=== PATIENT | male | born 1955 | race Caucasian/White ===

== ENCOUNTER 2016-08-15 10:54 | Outpatient (RCR) | payer MEDICARE ==
[~2016-08-15 10:54] MED LIST: ALBU0.632 IH; ALBU0.8322 IH; ALBU17AE3; ALBU2.5V4 INH; ALBUTEROL INHALER; ALBUTEROL NEB; ALPR.25T PO; ALPR1T PO; ALPR1TAB2 PO; ALPR1TAB7 PO; AMLO5TAB2 PO; ARIP5TAB20 PO; ASP325T; ASP325T PO; ASP81CT; ASP81CT PO; ATEN50TA PO; ATOR10TA PO; ATOR10TA66 PO; BACL10TA PO; BUDE10.2 INH; CALC-654 PO; CELE-63 PO; CETI10CA9 PO; CETI10TA17 PO; CHOL20002 PO; CIPR500T78 PO; CITA20TA4 PO; CLCX200C PO; CLON1TAB27 PO; CPH250CIP; CYAN500T2 PO; DOCU-143 PO; DOXE10CA PO; DOXE10CA29 PO; DOXE25CA46 PO; DULO30CA48 PO; DULO60CA58 PO; DULO60CA6 PO; ESCI20TA2; ESCI20TA2 PO; FLUT16SP22; FLUT16SP22 NS; FLUT1DIS26 IH; FRSM10B60; FRSM40T; FRSM40T PO; FURO40TA4 PO; FURO80TA3 PO; GABA300T PO; HYDR-229; HYDR-34; HYDR-34 PO; HYDR-3720 PO; HYDR-3729 PO; HYDR1TAB86 PO; HYDROCODONE; LEVO750T39 PO; LEVO750T9 PO; LISI-552 PO; LISI20TA; LISI20TA PO; MELO-195 PO; METO50TA7; METO50TA7 PO; METR500T PO; MNTL10T PO; MONT10TA24 PO; MTP50T PO; MULT-1029 PO; MULT1TAB63; NCT21TD TD; OXYC-143 PO; OXYC-272 PO; OXYC-465 PO; OXYC1TAB17 PO; OXYM30SP17 NS; PHEN37.555 PO; POTA10CA43 PO; POTA20PA3 PO; PRAV40TA PO; PRAV80TA2 PO; PRCD5U PO; PRD10T PO; PRD20T; PRD20T PO; PREG100C PO; PREG100C22 PO; PREG150C PO; PREG200C PO; PREG75CA PO; PROP10TA8 PO; PROP20TA23 PO; RAME8T PO; RANI150T11 PO; RISP1TAB19 PO; RISP1TAB2 PO; RSP.25T PO; RSP1T PO; SLMFT1E; SLMFT1E INH; SMV20T; TIOT18CA; TIOT18CA IH; TIOT18CA2 INH; TMZP15C PO; TORS20TA2 PO; TORS20TA3 PO; TRAZ-144 PO; TRAZ100T92 PO; TRAZ50TA67 PO; TRH2T PO; TRZ100T PO; UMEC62.5 INH; VITA80006 PO; ZLP10T PO; ZOLP10TA PO; [UNRECOGNIZED DRUG - OTHER]
== END 2016-11-13 | disposition home or self-care (01) ==
LOC: DSME 10:54
PROVIDERS: ATTEND Family Medicine
DX: E11.9 Type 2 diabetes mellitus without complications (principal)

== ENCOUNTER 2018-01-30 00:54 | Inpatient (IN) | payer MEDICARE ==
[~2018-01-30] VITALS: Ht 182.9 cm; Wt 178.3 kg
[2018-01-30] VITALS (38 sets, daily range): BP systolic 88–176; BP diastolic 37–122
[~2018-01-30 00:54] MED LIST changes: +ALBU2.5V4 IH; +CALC-852 PO; +CYAN1TAB64 SL; +HYDR-3781 PO; +LISI10TA2 PO; +METF500T8 PO; +OXYC-471 PO; -OXYM30SP17 NS; +OXYM30SP18 NS
[2018-01-30] MEDS ORDERED: methylPREDNISolone 125 MG (Solu-MEDROL) VIAL IV STA (01:07)
[2018-01-30] MEDS ORDERED: DEXAMETHASONE 4 MG/ML SDV (DECADRON) IH ONE (01:15)
[2018-01-30] MEDS ORDERED: RT-ALBUTEROL/IPRATROPIUM 3 ML (DUONEB) VIAL INH ONE (01:15)
[2018-01-30 01:22] LABS: BASOPHILS % (AUTO) 0 % (0-10); EOSINOPHILS # (AUTO) 0.1 10^3/uL (0.0-0.3); EOSINOPHILS % (AUTO) 1 % (0-10); HEMATOCRIT 37 % (40-54); HEMOGLOBIN 11.1 G/DL (13.3-17.7); LYMPHOCYTES # (AUTO) 1.2 X 10^3 (1.0-4.0); LYMPHOCYTES % (AUTO) 6 % (12-44); MEAN CORPUSCULAR HEMOGLOBIN 29 PG (25-34); MEAN CORPUSCULAR HGB CONC 30 G/DL (32-36); MEAN CORPUSCULAR VOLUME 96 FL (80-99); MEAN PLATELET VOLUME 9.5 FL (7.4-10.4); MONOCYTES # (AUTO) 1.5 X 10^3 (0.0-1.0); MONOCYTES % (AUTO) 8 % (0-12); NEUTROPHILS # (AUTO) 16.3 X 10^3 (1.8-7.8); NEUTROPHILS % (AUTO) 85 % (42-75); PLATELET COUNT 190 10^3/uL (130-400); RED BLOOD COUNT 3.83 10^6/uL (4.35-5.85); RED CELL DISTRIBUTION WIDTH 17.3 % (10.0-14.5)
[2018-01-30 01:22] LABS: ABG BASE EXCESS 10.4 MMOL/L (-2.5-2.5); ABG OXYGEN SATURATION 99 % (94-100); ABG PO2 131 MMHG (79-93); ABG TCO2 41.1 MMOL/L (21.0-31.0)
[2018-01-30 01:24] LABS: ALLENS TEST YES-POS; INSPIRED O2 BIPAP; PATIENT TEMP 99.3; VENTILATOR NO
[2018-01-30 01:25] LABS: ABG PCO2 99 MMHG (35-45); ABG PH 7.21 (7.37-7.43)
[2018-01-30 01:26] LABS: PROTHROMBIN TIME PATIENT 12.7 SEC (12.2-14.7)
[2018-01-30 01:37] LABS: ANISOCYTOSIS SLIGHT; BAND NEUTROPHILS 2 %; BASOPHILS % (MANUAL) 0 %; EOSINOPHILS % (MANUAL) 0 %; HYPOCHROMASIA SLIGHT; LYMPHOCYTES % (MANUAL) 7 %; MONOCYTES % (MANUAL) 5 %; NEUTROPHILS % (MANUAL) 86 %; POLYCHROMASIA SLIGHT
[2018-01-30] MEDS ORDERED: PIPERACILLIN SODIUM/TAZOBACTAM 4.5 GM in D5W 100 ML IVPB 100 ML IV ONE (01:45)
[2018-01-30] MEDS ORDERED: FUROSEMIDE 40 MG/4 ML INJ (LASIX) IVP ONE ×2 (01:45→07:45)
[2018-01-30 01:48] LABS: ALANINE AMINOTRANSFERASE 19 U/L (0-55); ALKALINE PHOSPHATASE 132 U/L (40-136); BILIRUBIN,TOTAL 0.5 MG/DL (0.1-1.0); BUN/CREATININE RATIO 17; CALCIUM 9.7 MG/DL (8.5-10.1); CARBON DIOXIDE 31 MMOL/L (21-32); CHLORIDE 96 MMOL/L (98-107); CREATINE KINASE 28 U/L (30-200); CREATININE SERUM 1.64 MG/DL (0.60-1.30); GFR ESTIMATED 43; GLUCOSE 176 MG/DL (70-105); MAGNESIUM 2.1 MG/DL (1.8-2.4); POTASSIUM 5.6 MMOL/L (3.6-5.0); SODIUM 140 MMOL/L (135-145); TOTAL PROTEIN 8.3 GM/DL (6.4-8.2)
[2018-01-30 01:54] LABS: CREATINE KINASE MB 0.9 NG/ML (<6.6)
[2018-01-30 02:07] LABS: BILIRUBIN,URINE NEGATIVE (NEGATIVE); GLUCOSE, URINE (UA) NEGATIVE (NEGATIVE); KETONES,URINE NEGATIVE (NEGATIVE); LEUKOCYTE ESTERASE ,URINE NEGATIVE (NEGATIVE); NITRITE,URINE NEGATIVE (NEGATIVE); PH,URINE 5 (5-9); PROTEIN,URINE 3+ (NEGATIVE); UROBILINOGEN,URINE NORMAL (NORMAL)
[2018-01-30 02:17] LABS: CLARITY,URINE SLIGHTLY CLOUDY; COLOR,URINE YELLOW
[2018-01-30 02:21] LABS: BACTERIA,URINE FEW /HPF; SQUAMOUS EPITHELIAL CELL,UR RARE /HPF
[2018-01-30 02:22] LABS: AMPHETAMINE SCREEN, URINE NEGATIVE (NEGATIVE); BARBITURATE SCREEN URINE NEGATIVE (NEGATIVE); BENZODIAZEPINES SCREEN URINE NEGATIVE (NEGATIVE); CANNABINOID SCREEN, URINE POSITIVE (NEGATIVE); COCAINE SCREEN URINE NEGATIVE (NEGATIVE); METHADONE STAT NEGATIVE (NEGATIVE); METHAMPHETAMINE SCREEN URINE S NEGATIVE (NEGATIVE); OPIATE SCREEN URINE NEGATIVE (NEGATIVE); OXYCODONE STAT POSITIVE (NEGATIVE); PROPOXYPHENE STAT NEGATIVE (NEGATIVE); TRICYCLIC ANTIDEPRESSANTS SCRE NEGATIVE (NEGATIVE)
[2018-01-30 02:47] LABS: ABG BASE EXCESS 11.3 MMOL/L (-2.5-2.5); ABG OXYGEN SATURATION 96 % (94-100); ABG PO2 95 MMHG (79-93); ABG TCO2 41.9 MMOL/L (21.0-31.0)
[2018-01-30 02:48] LABS: INSPIRED O2 BIPAP; PATIENT TEMP 99.3; VENTILATOR NO
[2018-01-30 02:49] LABS: ABG PCO2 99 MMHG (35-45); ABG PH 7.22 (7.37-7.43)
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
[2018-01-30] MEDS ORDERED: 1/2 NS IV SOLUTION 1,000 ML IV ONE (04:22)
[2018-01-30] MEDS: 1/2 NS IV SOLUTION 1,000 ML IV SCH ×2 (04:30→16:49)
[2018-01-30] MEDS ORDERED: RT-ALBUTEROL/IPRATROPIUM 3 ML (DUONEB) VIAL INH PRN (04:45)
[2018-01-30] MEDS ORDERED: AZITHROMYCIN 500 MG/NS 250 ML IVPB IV SCH ×2 (06:00)
[2018-01-30] MEDS ORDERED: ACETAMINOPHEN 500 MG TAB (TYLENOL) PO PRN (06:00)
[2018-01-30] MEDS: RT-ALBUTEROL/IPRATROPIUM 3 ML (DUONEB) VIAL INH SCH ×5 (06:13→22:30)
[2018-01-30] MEDS: POTASSIUM CL 10MEQ/50ML IVPB 50 ML IV SCH (06:17)
[2018-01-30] MEDS: KCL 20 MEQ TAB (K-DUR) PO SCH (06:18)
[2018-01-30] MEDS: MAGNESIUM 1 GM/100 ML IVPB 100 ML IV SCH (06:18)
[2018-01-30] MEDS: methylPREDNISolone 125 MG (Solu-MEDROL) VIAL IV SCH ×3 (06:24→21:23)
[2018-01-30] MEDS ORDERED: PHARMACY TO DOSE SQ SCH (07:30)
--- NOTE | 2018-01-30 07:36 | History & Physicial ---
History of Present Illness History of Present Illness Reason for visit/HPI Patient is awake this morning. Patient able to give history. Patient supposed to wear CPAP in the morning and BiPAP at night. Patient has to be on oxygen 4 L. found patient unresponsive. Called EMS. Pulse ox in the 60s 1 find Department got there. Patient brought out to the emergency room and was nonresponsive. Patient had hypoxia and hypercapnia. Patient morbid obesity. Patient has history of COPD with acute exacerbation. Patient admitted to ICU Date of Admission January 30, 2018 at 02:05 Time Seen by Provider: 07:30 I consulted on this patient on 01/30/18 07:30 Attending Physician Monika Marquez DO Admitting Physician Ricky Cleveland DO Consult Allergies and Home Medications Allergies Coded Allergies: cephalexin (Verified Allergy, Unknown, 04/10/16) Home Medications Albuterol Sulfate 2.5 Mg/3 Ml Vial.neb, 2.5 MG IH TID PRN for SHORTNESS OF BREATH, (Reported) Amlodipine Besylate 5 Mg Tablet, 5 MG PO DAILY, (Reported) Atorvastatin Calcium 10 Mg Tablet, 10 MG PO DAILY, (Reported) Budesonide/Formoterol Fumarate 10.2 Gm Hfa.aer.ad, 2 PUFF INH BID, (Reported) Calcium Citrate/Vitamin D3 1 Each Tablet, 1 TAB PO DAILY, (Reported) Celecoxib 200 Mg Capsule, 200 MG PO BID, (Reported) Cyanocobalamin/Cobamamide 1 Each Tab.subl, 5,000 MCG SL DAILY, (Reported) Docusate Sodium 100 Mg Capsule, 100 MG PO DAILY PRN for CONSTIPATION, (Reported) Duloxetine HCl 60 Mg Capsule.dr, 60 MG PO BID, (Reported) Fluticasone Propionate 16 Gm [place].susp, 1 SPRAY NS BID, (Reported) Furosemide 40 Mg Tablet, 40 MG PO BID, (Reported) Hydroxyzine Pamoate 25 Mg Capsule, 25 MG PO BID, (Reported) Lisinopril 10 Mg Tablet, 10 MG PO DAILY, (Reported) Metformin HCl 500 Mg Tab.er.24h, 500 MG PO BID, (Reported) Oxycodone HCl/Acetaminophen 1 Each Tablet, 1 TAB PO TID PRN for PAIN-MODERATE, ( Reported) Pregabalin 150 Mg Capsule, 150 MG PO BID, (Reported) Ranitidine HCl 150 Mg Tablet, 150 MG PO BID, (Reported) Trazodone HCl 100 Mg Tablet, 100 MG PO HS, (Reported) Umeclidinium [place] 62.5 Mcg Blst.w.dev, 1 PUFF INH DAILY, (Reported) Vitamin A 8,000 Unit Capsule, 8,000 UNIT PO DAILY, (Reported) Patient Home Medication List Home Medication List Reviewed: No Past [place]-Xfpmkn-Krgilx Hx Patient Social History Marrital Status: Employed/Student: unemployed Alcohol Use: Denies Use Recreational Drug Use: Yes ("NONE FOR 30 YEARS" PER OLD CHART, BUT PT TESTED + FOR THC 01/30/18) Smoking Status: Former Smoker Former Smoker, Quit: Sep 18, 2015 Type Used: Cigarettes Physical Abuse Screen: No Sexual Abuse: No Recent Foreign Travel: No Contact w/other who traveled: No Recent Hopitalizations: No (11/2017 FOR RESPIRATORY FAILURE) Recent Infectious Disease Expo: No Immunizations Up To Date Tetanus Booster (TDap): Unknown Date of Pneumonia Vaccine: Sep 04, 2012 Date of Influenza Vaccine: Oct 16, 2017 Seasonal Allergies Seasonal Allergies: Yes Surgeries Yes (FATTY TUMOR REMOVED FROM TOP OF HEAD. CARDIAC CATH X 2--NO INTERVENTION) Cardiac, Vasectomy Respiratory Yes (PULMONARY HTN; CHRONIC RESPIRATORY FAILURE--WEARS HOME O2 AT 4L/NC OR BIPAP /CPAP DURING THE DAY AND BIPAP AT NIGHT WELL; OBESITY-HYPOVENTILATION SYNDROME) COPD, Emphysema, Sleep Apnea Currently Using CPAP: No Currently Using BIPAP: Yes Cardiovascular Yes (CHF, CARDIAC CATH X 2--NO INTERVENTION, pulmonary hypertension) Chronic Edema/Swelling, Coronary Artery Disease, High Cholesterol, Hypertension , Valvular Heart Disease Neurological Yes Reproductive System Hx Reproductive Disorders: No Sexually Transmitted Disease: No HIV/AIDS: No Genitourinary Yes (RENAL INSUFFICIENCY) Gastrointestinal Yes Colitis Musculoskeletal Yes ("BULGING DISCS" ; CHRONIC "JERKING" OF MUSCLES) Degenerate Disk Disease, Osteoporosis, Arthritis, Back Injury, Chronic Back Pain , Fractures, Spasms Endocrine History of Endocrine Disorders: Yes (MORBID OBESITY) Endocrine Disorders: Diabetes, Non-Insulin dep HEENT History of HEENT Disorders: Yes (NEAR SIGHTED) Loss of Vision: Bilateral Hearing Impairment: Denies Cancer No Psychosocial History of Psychiatric Problem: Yes Behavioral Health Disorders: Anxiety, Depression Integumentary History of Skin or Integumenta: No Blood Transfusions History of Blood Disorders: No Adverse Reaction to a Blood Tr: No Family Medical History Significant Family History: Heart Disease, Cancer, Hypertension Family Hx: Arthritis 19 MOTHER Cardiovascular disease 19 MOTHER FH: lung cancer 19 FATHER Hypertension 19 MOTHER No Family History of: AIDS Abdominal aortic aneurysm [place]'s disease Alcoholism Alzheimer's disease Aphasia Asthma Cancer of mouth Cataracts Colon cancer Completed stroke Congenital disease Congenital heart disease Coronary thrombosis Cystic fibrosis Deafness or hearing loss Dementia Diabetes mellitus Drug abuse Dysphasia Fibrocystic disease of breast Gastroenteritis Glaucoma Headache disorder Hypercholesterolemia Infertility Kidney disease Myocardial infarction Neoplasm Not obtainable due to adoption Osteoporosis Parkinson's disease Prostate cancer Psychosocial problem Respiratory disorder Seizure disorder Severe allergy Thyroid disease Tuberculosis Visual disorder Constitutional: weakness EENTM: no symptoms reported Respiratory: short of breath, other (COPD) Cardiovascular: no symptoms reported Gastrointestinal: no symptoms reported Genitourinary: no symptoms reported Physical Exam Vital Signs Vital Signs - First Documented 01/30/18 03:10 FiO2 60 Capillary Refill : Less Than 3 Seconds General Appearance: No Apparent Distress, WD/WN, Obese Eyes: Bilateral Eye Normal Inspection HEENT: Normal ENT Inspection Neck: Full Range of Motion, Normal Inspection Respiratory: Decreased Breath Sounds Cardiovascular: Regular Rate, Rhythm, No Murmur Gastrointestinal: Non Tender, Soft Assessment/Plan Assessment and Plan Nonresponsive. Acute and chronic respiratory failure. Pneumonia. Short of the air. Pulse ox 69. Hypercapnia. Hypoxemia. Morbid obesity. Patient on 4 L of oxygen at home Admission Diagnosis Admission Status: Inpatient Order (span 2 midnights) Reason for Inpatient Admission: Nonresponsive. Short of air. Hypercapnia. Hypoxemia. COPD with acute exacerbation. Morbid obesity. Clinical Quality Measures DVT/VTE Risk/Contraindication: Risk Factor Score Per Nursin RFS Level Per Nursing on Admit: 4+=Very High RICKY CLEVELAND DO January 30, 2018 07:36
[2018-01-30 07:59] LABS: BASOPHILS % (AUTO) 0 % (0-10); EOSINOPHILS % (AUTO) 0 % (0-10); HEMATOCRIT 35 % (40-54); HEMOGLOBIN 10.7 G/DL (13.3-17.7); LYMPHOCYTES # (AUTO) 0.8 X 10^3 (1.0-4.0); LYMPHOCYTES % (AUTO) 4 % (12-44); MEAN CORPUSCULAR HEMOGLOBIN 29 PG (25-34); MEAN CORPUSCULAR HGB CONC 30 G/DL (32-36); MEAN CORPUSCULAR VOLUME 96 FL (80-99); MEAN PLATELET VOLUME 9.7 FL (7.4-10.4); MONOCYTES # (AUTO) 0.3 X 10^3 (0.0-1.0); MONOCYTES % (AUTO) 1 % (0-12); NEUTROPHILS # (AUTO) 18.4 X 10^3 (1.8-7.8); NEUTROPHILS % (AUTO) 95 % (42-75); PLATELET COUNT 204 10^3/uL (130-400); RED BLOOD COUNT 3.68 10^6/uL (4.35-5.85); RED CELL DISTRIBUTION WIDTH 17.3 % (10.0-14.5); WHITE BLOOD COUNT 19.4 10^3/uL (4.3-11.0)
--- NOTE | 2018-01-30 08:14 | Diagnostic Imaging Report ---
Indication: Respiratory distress. Comparison: 10/30/2017 Findings: Upright portable views of the chest were obtained. Heart size is enlarged but unchanged. Central venous congestion is similar to the prior study. No pneumothorax or pleural fluid suspected. Patchy alveolar opacities are again demonstrated, improved from the prior study. Impression: Cardiomegaly with central venous congestion similar to the prior exam. Minimal persistent patchy alveolar opacities moderately improved from the prior study. Dictated by: Dictated on workstation # [id number]
[2018-01-30 08:22] LABS: ALBUMIN 3.8 GM/DL (3.2-4.5); BILIRUBIN,TOTAL 0.5 MG/DL (0.1-1.0); CALCIUM 9.5 MG/DL (8.5-10.1); CREATININE SERUM 1.7 MG/DL (0.60-1.30); MAGNESIUM 2.1 MG/DL (1.8-2.4); PHOSPHORUS 3.7 MG/DL (2.3-4.7); POTASSIUM 5.6 MMOL/L (3.6-5.0); TOTAL PROTEIN 7.9 GM/DL (6.4-8.2)
[2018-01-30] MEDS: PIPERACILLIN/TAZO 4.5 GM/D5W 100 ML IVPB IV SCH ×4 (08:27→16:50)
[2018-01-30] MEDS: ENOXAPARIN 60 MG/0.6 ML (LOVENOX) SYR SC SCH ×2 (08:27→21:23)
[2018-01-30 08:56] LABS: ABG BASE EXCESS 12.2 MMOL/L (-2.5-2.5); ABG OXYGEN SATURATION 92 % (94-100); ABG PO2 68 MMHG (79-93); ABG TCO2 41.8 MMOL/L (21.0-31.0)
[2018-01-30 08:59] LABS: ABG PCO2 85 MMHG (35-45); ABG PH 7.28 (7.37-7.43)
[2018-01-30 09:00] LABS: ALLENS TEST Negative; INSPIRED O2 80%; PATIENT TEMP 98.3; VENTILATOR NO
[2018-01-30] MEDS ORDERED: MULT-1067 PO (10:17)
[2018-01-30] MEDS: oxyCODONE/APAP 5/325MG (PERCOCET 5) TABLET PO PRN ×3 (11:41→21:32)
[2018-01-30 14:25] LABS: ABG BASE EXCESS 12.5 MMOL/L (-2.5-2.5); ABG OXYGEN SATURATION 96 % (94-100); ABG PCO2 69 MMHG (35-45); ABG PH 7.36 (7.37-7.43); ABG PO2 72 MMHG (79-93); ABG TCO2 40.8 MMOL/L (21.0-31.0)
[2018-01-30 14:26] LABS: ALLENS TEST POSITIVE; INSPIRED O2 40% BIPAP; PATIENT TEMP 96.7; VENTILATOR NO
[2018-01-30] MEDS: metFORMIN XR 500 MG (GLUCOPHAGE XR) TAB PO SCH (16:49)
[2018-01-30] MEDS: FUROSEMIDE 40 MG (LASIX) TAB PO SCH (16:49)
[2018-01-30] MEDS ORDERED: NON-FORMULARY MEDICATION 1 EA EA (Duloxetine HCl 60 MG) PO SCH (21:00)
[2018-01-30] MEDS ORDERED: NON-FORMULARY MEDICATION 1 EA EA (Ranitidine HCl 150 MG) PO SCH (21:00)
[2018-01-30] MEDS ORDERED: NON-FORMULARY MEDICATION 1 EA EA (Celecoxib 200 MG) PO SCH (21:00)
[2018-01-30] MEDS ORDERED: NON-FORMULARY MEDICATION 1 EA EA (Pregabalin (Lyrica) 150 MG) PO SCH (21:00)
[2018-01-30] MEDS: CELECOXIB 100 MG (CeleBREX) CAP PO SCH (21:23)
[2018-01-30] MEDS: DULoxetine 30 MG (CYMBALTA) CAP PO SCH (21:24)
[2018-01-30] MEDS: PREGABALIN 75 MG (LYRICA) CAP PO SCH (21:24)
[2018-01-30] MEDS: FAMOTIDINE 20 MG (PEPCID) TABLET PO SCH (21:24)
[2018-01-30] MEDS: traZODone 100 MG (DESYREL) TAB PO SCH (21:24)
[2018-01-31] VITALS (14 sets, daily range): BP systolic 105–151; BP diastolic 57–85
[2018-01-31] MEDS: PIPERACILLIN/TAZO 4.5 GM/D5W 100 ML IVPB IV SCH ×6 (01:05→16:03)
[2018-01-31] MEDS: RT-ALBUTEROL/IPRATROPIUM 3 ML (DUONEB) VIAL INH SCH ×6 (01:57→22:17)
[2018-01-31] MEDS: 1/2 NS IV SOLUTION 1,000 ML IV SCH (02:29)
[2018-01-31 04:41] LABS: BASOPHILS % (AUTO) 0 % (0-10); EOSINOPHILS % (AUTO) 0 % (0-10); HEMATOCRIT 36 % (40-54); LYMPHOCYTES # (AUTO) 0.8 X 10^3 (1.0-4.0); LYMPHOCYTES % (AUTO) 5 % (12-44); MEAN CORPUSCULAR HEMOGLOBIN 29 PG (25-34); MEAN CORPUSCULAR HGB CONC 31 G/DL (32-36); MEAN CORPUSCULAR VOLUME 94 FL (80-99); MEAN PLATELET VOLUME 9.6 FL (7.4-10.4); MONOCYTES # (AUTO) 0.5 X 10^3 (0.0-1.0); MONOCYTES % (AUTO) 3 % (0-12); NEUTROPHILS % (AUTO) 92 % (42-75); PLATELET COUNT 199 10^3/uL (130-400); RED BLOOD COUNT 3.81 10^6/uL (4.35-5.85); RED CELL DISTRIBUTION WIDTH 16.9 % (10.0-14.5); WHITE BLOOD COUNT 16.3 10^3/uL (4.3-11.0)
[2018-01-31 05:07] LABS: ALBUMIN 3.6 GM/DL (3.2-4.5); BILIRUBIN,TOTAL 0.3 MG/DL (0.1-1.0); CALCIUM 9.8 MG/DL (8.5-10.1); CREATININE SERUM 1.55 MG/DL (0.60-1.30); MAGNESIUM 2.1 MG/DL (1.8-2.4); PHOSPHORUS 2.4 MG/DL (2.3-4.7); POTASSIUM 4.9 MMOL/L (3.6-5.0); TOTAL PROTEIN 7.6 GM/DL (6.4-8.2)
[2018-01-31] MEDS: POTASSIUM CL 10MEQ/50ML IVPB 50 ML IV SCH (05:07)
[2018-01-31] MEDS: KCL 20 MEQ TAB (K-DUR) PO SCH (05:07)
[2018-01-31] MEDS: MAGNESIUM 1 GM/100 ML IVPB 100 ML IV SCH (05:07)
--- NOTE | 2018-01-31 05:14 | Pulmonary Consultation ---
History of Present Illness History of Present Illness Date of Consultation 01/31/18 05:09 Time Seen by Provider: 05:09 Date of Admission History of Present Illness 62yo with hx of severe oxygen dependent COPD and morbid [facility] secondary to acute respiratory failure presented to ED secondary acute on chronic respiratory failure after being found unresponsive by without oxygen on. Upon EMS arrival Sp02 was 69% and increased to 92% with oxygen. UDS positive for narcotics and marijuana. I am consulted for pulmonary management. Allergies and Home Medications Allergies Coded Allergies: cephalexin (Verified Allergy, Unknown, 04/10/16) Home Medications Albuterol Sulfate 2.5 Mg/3 Ml Vial.neb, 2.5 MG IH TID PRN for SHORTNESS OF BREATH, (Reported) Amlodipine Besylate 5 Mg Tablet, 5 MG PO DAILY, (Reported) Atorvastatin Calcium 10 Mg Tablet, 10 MG PO DAILY, (Reported) Budesonide/Formoterol Fumarate 10.2 Gm Hfa.aer.ad, 2 PUFF INH BID, (Reported) Celecoxib 200 Mg Capsule, 200 MG PO BID, (Reported) Cyanocobalamin/Cobamamide 1 Each Tab.subl, 5,000 MCG SL DAILY, (Reported) Duloxetine HCl 60 Mg Capsule.dr, 60 MG PO BID, (Reported) Furosemide 40 Mg Tablet, 40 MG PO BID, (Reported) Lisinopril 10 Mg Tablet, 10 MG PO DAILY, (Reported) Metformin HCl 500 Mg Tab.er.24h, 500 MG PO BID, (Reported) Multivitamin/Iron/Folic Acid 1 Each Tablet, 1 EACH PO DAILY, (Reported) Oxycodone HCl/Acetaminophen 1 Each Tablet, 1 TAB PO TID PRN for PAIN-MODERATE, ( Reported) Pregabalin 150 Mg Capsule, 150 MG PO BID, (Reported) Ranitidine HCl 150 Mg Tablet, 150 MG PO BID, (Reported) Trazodone HCl 100 Mg Tablet, 100 MG PO HS, (Reported) Past Hzaexml-Iwmwwj-Mfdawc Hx Patient Social History Alcohol Use: Denies Use Recreational Drug Use: Yes ("NONE FOR 30 YEARS" PER OLD CHART, BUT PT TESTED + FOR THC 01/30/18) Smoking Status: Former Smoker Type Used: Cigarettes Former Smoker, Quit: Sep 18, 2015 Recent Foreign Travel: No Contact w/Someone Who Travel: No Recent Infectious Disease Expo: No Recent Hopitalizations: No (11/2017 FOR RESPIRATORY FAILURE) Immunizations Up To Date Tetanus Booster (TDap): Unknown Date of Pneumonia Vaccine: Sep 04, 2012 Date of Influenza Vaccine: Oct 16, 2017 Seasonal Allergies Seasonal Allergies: Yes Past Medical History Surgeries: Yes (FATTY TUMOR REMOVED FROM TOP OF HEAD. CARDIAC CATH X 2--NO INTERVENTION) Cardiac, Vasectomy Respiratory: Yes (PULMONARY HTN; CHRONIC RESPIRATORY FAILURE--WEARS HOME O2 AT 4L/NC OR BIPAP/CPAP DURING THE DAY AND BIPAP AT NIGHT WELL; OBESITY- HYPOVENTILATION SYNDROME) Pneumonia, Chronic Bronchitis, Sleep Apnea, COPD, Emphysema Currently Using CPAP: No Currently Using BIPAP: Yes Cardiac: Yes (CHF, CARDIAC CATH X 2--NO INTERVENTION, pulmonary hypertension) Chronic Edema/Swelling, Coronary Artery Disease, High Cholesterol, Hypertension , Valvular Heart Disease Neurological: Yes Reproductive Disorders: No Sexually Transmitted Disease: No HIV/AIDS: No Genitourinary: Yes (RENAL INSUFFICIENCY) Gastrointestinal: Yes Colitis Musculoskeletal: Yes ("BULGING DISCS" ; CHRONIC "JERKING" OF MUSCLES) Degenerate Disk Disease, Osteoporosis, Arthritis, Back Injury, Chronic Back Pain , Fractures, Spasms Endocrine: Yes (MORBID OBESITY) Diabetes, Non-Insulin dep HEENT: Yes (NEAR SIGHTED) Loss of Vision: Bilateral Hearing Impairment: Denies Cancer: No Psychosocial: Yes Anxiety, Depression Integumentary: No Blood Disorders: No Adverse Reaction/Blood Tranf: No Family Medical History Arthritis 19 MOTHER Cardiovascular disease 19 MOTHER FH: lung cancer 19 FATHER Hypertension 19 MOTHER No Family History of: AIDS Abdominal aortic aneurysm [place]'s disease Alcoholism Alzheimer's disease Aphasia Asthma Cancer of mouth Cataracts Colon cancer Completed stroke Congenital disease Congenital heart disease Coronary thrombosis Cystic fibrosis Deafness or hearing loss Dementia Diabetes mellitus Drug abuse Dysphasia Fibrocystic disease of breast Gastroenteritis Glaucoma Headache disorder Hypercholesterolemia Infertility Kidney disease Myocardial infarction Neoplasm Not obtainable due to adoption Osteoporosis Parkinson's disease Prostate cancer Psychosocial problem Respiratory disorder Seizure disorder Severe allergy Thyroid disease Tuberculosis Visual disorder Heart Disease, Cancer, Hypertension Review of Systems Time Seen by Provider: 05:17 Constitutional: Sweats, Weakness, Malaise; No: Fever, Chills Eyes: No: Pain, Vision change, Conjunctivae inflammation, Eyelid inflammation, Other, Redness ENT: Nose congestion; No: Ear pain, Ear discharge, Nose pain, Nose discharge, Mouth pain, Mouth swelling, Throat pain, Throat swelling, Other Respiratory: Cough, Dry, Shortness of breath, SOB with excertion, Wheezing; No : Hemoptysis Cardiovascular: Palpitations, Orthopnea, Paroxysmal Noc. Dyspnea, Edema, Lt Headedness Gastrointestinal: No: Nausea, Vomiting, Abdominal Pain, Diarrhea, Constipation , Melena, Hematochezia, Other Neurological: Weakness, Incoordination, Confusion Exam Exam Vital Signs Date Time Temp Pulse Resp B/P (MAP) Pulse Ox O2 Delivery O2 Flow Rate FiO2 01/31/18 04:00 NIV Bilevel 45 01/31/18 03:00 70 15 116/70 (85) 96 NIV Bilevel 40.00 01/31/18 02:00 66 27 105/66 (79) 94 NIV Bilevel 40.00 01/31/18 01:57 71 21 94 45.00 01/31/18 01:00 81 23 136/63 (87) 95 NIV Bilevel 40.00 01/31/18 01:00 74 01/31/18 00:00 NIV Bilevel 45 01/31/18 00:00 77 18 126/63 (84) 95 NIV Bilevel 40.00 01/30/18 23:00 84 13 170/71 (104) 96 NIV Bilevel 40.00 01/30/18 22:30 87 20 95 45.00 01/30/18 22:00 88 21 102/79 (87) 92 High Flow N/C 6.00 01/30/18 21:00 146/96 (113) 90 High Flow N/C 6.00 01/30/18 20:00 High Flow N/C 6.00 01/30/18 20:00 77 161/54 (89) 90 High Flow N/C 6.00 01/30/18 19:04 75 01/30/18 19:00 96.9 77 18 164/82 (109) 92 High Flow N/C 6.00 01/30/18 19:00 78 176/116 (136) 91 High Flow N/C 6.00 01/30/18 18:00 80 19 170/89 (116) 92 High Flow N/C 6.00 01/30/18 17:00 73 9 166/87 (113) 93 High Flow N/C 01/30/18 16:02 High Flow N/C 6.00 5/29/18 16:00 28 91 High Flow N/C 6.00 01/30/18 16:00 155/87 (109) 01/30/18 15:23 96.7 High Flow N/C 6.00 01/30/18 15:00 122/87 (99) 01/30/18 15:00 81 30 87 High Flow N/C 6.00 01/30/18 15:00 91 High Flow N/C 6.00 01/30/18 14:33 90 High Flow N/C 6.00 01/30/18 14:30 High Flow N/C 6.00 01/30/18 14:22 90 High Flow N/C 5.00 01/30/18 14:05 70 15 94 40.00 01/30/18 14:00 160/87 (111) 01/30/18 14:00 76 42 160/ 96 NIV Bilevel 01/30/18 13:00 170/122 (138) 01/30/18 13:00 69 14 170/ 94 NIV Bilevel 01/30/18 13:00 73 01/30/18 13:00 139/66 (90) 01/30/18 12:16 98.5 NIV Bilevel 40.00 01/30/18 12:05 77 21 93 40.00 01/30/18 12:05 NIV Bilevel 40 01/30/18 12:00 66 11 150/80 (103) 94 NIV Bilevel 40.00 01/30/18 11:00 72 27 138/77 (97) 92 NIV Bilevel 40.00 01/30/18 10:14 71 14 93 40.00 01/30/18 10:00 66 11 156/76 (102) 94 NIV Bilevel 40.00 01/30/18 09:11 NIV Bilevel 40.00 01/30/18 09:11 74 18 98 60.00 01/30/18 09:00 73 16 102/43 (62) 98 NIV Bilevel 80.00 01/30/18 08:00 NIV Bilevel 80 01/30/18 08:00 97.6 NIV Bilevel 80.00 01/30/18 08:00 76 18 159/54 (89) 97 NIV Bilevel 80.00 01/30/18 07:00 65 01/30/18 07:00 65 17 159/78 (105) 93 NIV Bilevel 80.00 01/30/18 06:45 69 22 129/60 (83) 92 NIV Bilevel 80.00 01/30/18 06:30 64 18 129/58 (81) 95 NIV Bilevel 80.00 01/30/18 06:19 64 20 98 80.00 01/30/18 06:15 67 24 125/61 (82) 97 NIV Bilevel 80.00 01/30/18 06:00 60 19 132/57 (82) 97 NIV Bilevel 80.00 01/30/18 05:45 59 20 123/61 (81) 97 NIV Bilevel 80.00 01/30/18 05:30 61 27 119/60 (79) 96 NIV Bilevel 80.00 01/30/18 05:15 60 20 120/55 (76) 97 NIV Bilevel 80.00 I & O 01/31/18 07:00 Intake Total 600 ml Output Total 2075 ml Balance -1475 ml General Appearance: No Apparent Distress, WD/WN, Obese HEENT: Normal ENT Inspection Neck: Full Range of Motion, Normal Inspection Respiratory: Decreased Breath Sounds Cardiovascular: Regular Rate, Rhythm, No Murmur Capillary Refill: Less Than 3 Seconds Gastrointestinal: soft Neurologic/Psychiatric: Alert, Oriented x3 Skin: Normal Color, Warm/Dry Lymphatic: No Adenopathy Results Lab Laboratory Tests 01/30/18 01:05 01/30/18 07:47 01/31/18 04:05 Assessment/Plan Assessment/Plan Acute on chronic respiratory failure -Bipap QHS and PRN Pneumonia -D/C Azithromycin -Continue Zosyn for now Morbid obesity with OHS -Pt has Bipap device at home however appears to be noncompliant Acute renal failure - improving -monitor -Pt has lasix ordered -Hold IVF and check BNP Multiple hospitalizations UDS positive for Marijuana and narcotics -education 255 JHON STEPHENSON DO January 31, 2018 05:14
[2018-01-31 05:18] LABS: ABG BASE EXCESS 12.6 MMOL/L (-2.5-2.5); ABG OXYGEN SATURATION 98 % (94-100); ABG PCO2 60 MMHG (35-45); ABG PH 7.42 (7.37-7.43); ABG PO2 90 MMHG (79-93); ABG TCO2 39.6 MMOL/L (21.0-31.0)
[2018-01-31] MEDS: CYANOCOBALAMIN 1,000 MCG (VITAMIN B-12) TABLET PO SCH (05:18)
[2018-01-31] MEDS: FUROSEMIDE 40 MG (LASIX) TAB PO SCH ×2 (05:18→16:03)
[2018-01-31 05:19] LABS: ALLENS TEST YES-POS; INSPIRED O2 45% BIPAP; PATIENT TEMP 98.7; VENTILATOR NO
[2018-01-31] MEDS: metFORMIN XR 500 MG (GLUCOPHAGE XR) TAB PO SCH ×2 (05:19→16:03)
[2018-01-31] MEDS: MULTIVIT W/MINERALS TAB (THERAGRAN M) PO SCH (05:19)
[2018-01-31] MEDS: oxyCODONE/APAP 5/325MG (PERCOCET 5) TABLET PO PRN ×3 (05:29→21:22)
[2018-01-31] MEDS ORDERED: inSUlin ASPART (NovoLOG) 1 UNIT/0.01 ML (CHARGE PER UNIT) SC SCH (06:00)
--- NOTE | 2018-01-31 08:00 | Diagnostic Imaging Report ---
EXAMINATION: Chest radiograph, portable AP view. DATE: 01/31/2018 at 0321 hours. INDICATION: 62-year-old male, acute respiratory failure. Sepsis. COMPARISON: 01/30/2018. FINDINGS: Stable overall appearance of the cardiomediastinal silhouette. There are technical limitations of the exam. There is no identified pneumothorax. There is no large pleural effusion. There are nonspecific multifocal bilateral interstitial and alveolar opacities which are essentially unchanged since comparison exam. IMPRESSION: 1. Unchanged nonspecific multifocal bilateral interstitial and alveolar lung opacities. Dictated by: Dictated on workstation # [id number]
--- NOTE | 2018-01-31 08:12 | Progress Note (SOAP) ---
Subjective Time Seen by Provider: 08:10 Subjective/Events-last exam Patient feeling better today. Patient awake and alert. Patient states his sputum and dark. Brown to black is now clearing up. Patient to go to medical floor today. Focused Exam Lactate Level 01/30/18 01:05: Lactic Acid Level 0.64 Objective Exam Vital Signs Date Time Temp Pulse Resp B/P (MAP) Pulse Ox O2 Delivery O2 Flow Rate FiO2 01/31/18 07:00 80 01/31/18 06:59 96 Nasal Cannula 6.00 01/31/18 06:00 69 16 123/68 (86) 95 High Flow N/C 6.00 01/31/18 05:14 98.7 NIV Bilevel 45.00 01/31/18 05:00 66 13 96 NIV Bilevel 40.00 01/31/18 04:00 NIV Bilevel 45 01/31/18 04:00 74 14 134/70 (91) 95 NIV Bilevel 40.00 01/31/18 03:00 70 15 116/70 (85) 96 NIV Bilevel 40.00 01/31/18 02:00 66 27 105/66 (79) 94 NIV Bilevel 40.00 01/31/18 01:57 71 21 94 45.00 01/31/18 01:00 81 23 136/63 (87) 95 NIV Bilevel 40.00 01/31/18 01:00 74 01/31/18 00:00 NIV Bilevel 45 01/31/18 00:00 77 18 126/63 (84) 95 NIV Bilevel 40.00 01/30/18 23:00 84 13 170/71 (104) 96 NIV Bilevel 40.00 01/30/18 22:30 87 20 95 45.00 01/30/18 22:00 88 21 102/79 (87) 92 High Flow N/C 6.00 01/30/18 21:00 146/96 (113) 90 High Flow N/C 6.00 01/30/18 20:00 High Flow N/C 6.00 01/30/18 20:00 77 161/54 (89) 90 High Flow N/C 6.00 01/30/18 19:04 75 01/30/18 19:00 96.9 77 18 164/82 (109) 92 High Flow N/C 6.00 01/30/18 19:00 78 176/116 (136) 91 High Flow N/C 6.00 01/30/18 18:00 80 19 170/89 (116) 92 High Flow N/C 6.00 01/30/18 17:00 73 9 166/87 (113) 93 High Flow N/C 01/30/18 16:02 High Flow N/C 6.00 01/30/18 16:00 28 91 High Flow N/C 6.00 01/30/18 16:00 155/87 (109) 01/30/18 15:23 96.7 High Flow N/C 6.00 01/30/18 15:00 122/87 (99) 01/30/18 15:00 81 30 87 High Flow N/C 6.00 01/30/18 15:00 91 High Flow N/C 6.00 01/30/18 14:33 90 High Flow N/C 6.00 01/30/18 14:30 High Flow N/C 6.00 01/30/18 14:22 90 High Flow N/C 5.00 01/30/18 14:05 70 15 94 40.00 01/30/18 14:00 160/87 (111) 01/30/18 14:00 76 42 160/ 96 NIV Bilevel 01/30/18 13:00 170/122 (138) 01/30/18 13:00 69 14 170/ 94 NIV Bilevel 01/30/18 13:00 73 01/30/18 13:00 139/66 (90) 01/30/18 12:16 98.5 NIV Bilevel 40.00 01/30/18 12:05 77 21 93 40.00 01/30/18 12:05 NIV Bilevel 40 01/30/18 12:00 66 11 150/80 (103) 94 NIV Bilevel 40.00 01/30/18 11:00 72 27 138/77 (97) 92 NIV Bilevel 40.00 01/30/18 10:14 71 14 93 40.00 01/30/18 10:00 66 11 156/76 (102) 94 NIV Bilevel 40.00 01/30/18 09:11 NIV Bilevel 40.00 01/30/18 09:11 74 18 98 60.00 01/30/18 09:00 73 16 102/43 (62) 98 NIV Bilevel 80.00 I & O 01/31/18 07:00 Intake Total 700 ml Output Total 2575 ml Balance -1875 ml Capillary Refill : Less Than 3 Seconds General Appearance: No Apparent Distress, WD/WN, Obese HEENT: Normal ENT Inspection Neck: Full Range of Motion, Normal Inspection Respiratory: No Accessory Muscle Use, No Respiratory Distress, Decreased Breath Sounds Cardiovascular: Regular Rate, Rhythm, No Murmur Gastrointestinal: non tender, soft Results Lab Laboratory Tests 01/30/18 08:45: Blood Gas Puncture Site Left radial, Blood Gas Patient Temperature 98.3, Arterial Blood pH 7.28*L, Arterial Blood Partial Pressure CO2 85*H, Arterial Blood Partial Pressure O2 68L, Arterial Blood HCO3 39H, Arterial Blood Total CO2 41.8H, Arterial Blood Oxygen Saturation 92L, Arterial Blood Base Excess 12.2H, Neil Test Negative, Blood Gas Ventilator Setting NO, Blood Gas Inspired Oxygen 80% 01/30/18 14:20: Blood Gas Puncture Site RIGHT RADIAL, Blood Gas Patient Temperature 96.7, Arterial Blood pH 7.36L, Arterial Blood Partial Pressure CO2 69H, Arterial Blood Partial Pressure O2 72L, Arterial Blood HCO3 39H, Arterial Blood Total CO2 40.8H, Arterial Blood Oxygen Saturation 96, Arterial Blood Base Excess 12.5H , Neil Test POSITIVE, Blood Gas Ventilator Setting NO, Blood Gas Inspired Oxygen 40% BIPAP 01/31/18 04:05: White Blood Count 16.3H, Red Blood Count 3.81L, Hemoglobin 11.0L, Hematocrit 36L , Mean Corpuscular Volume 94, Mean Corpuscular Hemoglobin 29, Mean Corpuscular Hemoglobin Concent 31L, Red Cell Distribution Width 16.9H, Platelet Count 199, Mean Platelet Volume 9.6, Neutrophils (%) (Auto) 92H, Lymphocytes (%) (Auto) 5L , Monocytes (%) (Auto) 3, Eosinophils (%) (Auto) 0, Basophils (%) (Auto) 0, Neutrophils # (Auto) 15.0H, Lymphocytes # (Auto) 0.8L, Monocytes # (Auto) 0.5, Eosinophils # (Auto) 0.0, Basophils # (Auto) 0.0, Sodium Level 139, Potassium Level 4.9, Chloride Level 94L, Carbon Dioxide Level 32, Anion Gap 13, Blood Urea Nitrogen 33H, Creatinine 1.55H, Estimat Glomerular Filtration Rate 46, BUN/ Creatinine Ratio 21, Glucose Level 216H, Calcium Level 9.8, Phosphorus Level 2.4 , Magnesium Level 2.1, Total Bilirubin 0.3, Aspartate Amino Transf (AST/SGOT) 15 , Alanine Aminotransferase (ALT/SGPT) 19, Alkaline Phosphatase 113, B-Type Natriuretic Peptide 113.7H, Total Protein 7.6, Albumin 3.6 01/31/18 05:13: Blood Gas Puncture Site R RAD, Blood Gas Patient Temperature 98.7, Arterial Blood pH 7.42, Arterial Blood Partial Pressure CO2 60H, Arterial Blood Partial Pressure O2 90, Arterial Blood HCO3 38H, Arterial Blood Total CO2 39.6H, Arterial Blood Oxygen Saturation 98, Arterial Blood Base Excess 12.6H, Neil Test YES-POS, Blood Gas Ventilator Setting NO, Blood Gas Inspired Oxygen 45% BIPAP Microbiology 01/30/18 Blood Culture - Preliminary, Resulted No growth Assessment/Plan Assessment/Plan Assess & Plan/Chief Complaint Acute and chronic respiratory failure. Pneumonia. Morbid obesity. Acute renal failure. Marijuana use Clinical Quality Measures Admission Status Admission Dx Nonresponsive. Acute and chronic respiratory failure. Pneumonia. Short of the air. Pulse ox 69. Hypercapnia. Hypoxemia. Morbid obesity. Patient on 4 L of oxygen at home DVT/VTE Risk/Contraindication: Risk Factor Score Per Nursin RFS Level Per Nursing on Admit: 4+=Very High DANITA TEE DO January 31, 2018 08:12
[2018-01-31] MEDS: PREGABALIN 75 MG (LYRICA) CAP PO SCH ×2 (08:37→21:22)
[2018-01-31] MEDS: amLODIPine 5 MG (NORVASC) TAB PO SCH (08:37)
[2018-01-31] MEDS: lisINopril 10 MG (PRINIVIL) TABLET PO SCH (08:37)
[2018-01-31] MEDS: DULoxetine 30 MG (CYMBALTA) CAP PO SCH ×2 (08:38→21:21)
[2018-01-31] MEDS: CELECOXIB 100 MG (CeleBREX) CAP PO SCH ×2 (08:38→21:21)
[2018-01-31] MEDS: ATORVASTATIN 10 MG (LIPITOR) TABLET PO SCH (08:38)
[2018-01-31] MEDS: FAMOTIDINE 20 MG (PEPCID) TABLET PO SCH ×2 (08:38→21:21)
[2018-01-31] MEDS: ENOXAPARIN 60 MG/0.6 ML (LOVENOX) SYR SC SCH ×2 (08:38→21:21)
[2018-01-31] MEDS ORDERED: [UNRECOGNIZED DRUG - OTHER] SL SCH (09:00)
[2018-01-31] MEDS ORDERED: IRON PO SCH (09:00)
[2018-01-31] MEDS ORDERED: [UNRECOGNIZED DRUG - OTHER] PO SCH (09:00)
[2018-01-31] MEDS ORDERED: NON-FORMULARY MEDICATION 1 EA EA (Amlodipine Besylate 5 MG) PO SCH (09:00)
[2018-01-31] MEDS ORDERED: MULTIVITAMIN PO SCH (09:00)
[2018-01-31] MEDS ORDERED: FOLIC ACID E PO SCH (09:00)
[2018-01-31] MEDS: traZODone 100 MG (DESYREL) TAB PO SCH (21:22)
[2018-02-01] VITALS: BP 134/63
[2018-02-01] MEDS: PIPERACILLIN/TAZO 4.5 GM/D5W 100 ML IVPB IV SCH ×2 (00:42)
[2018-02-01] MEDS: RT-ALBUTEROL/IPRATROPIUM 3 ML (DUONEB) VIAL INH SCH ×2 (02:07→08:22)
[2018-02-01 04:00] VITALS: BP 140/69
[2018-02-01 05:00] VITALS: BP 140/69
--- NOTE | 2018-02-01 05:06 | Pulmonary Progress Note ---
Subjective Time Seen by Provider: 05:03 Subjective/Events-last exam SOB and nonproductive cough Focused Exam Lactate Level 01/30/18 01:05: Lactic Acid Level 0.64 Exam Exam Vital Signs Date Time Temp Pulse Resp B/P (MAP) Pulse Ox O2 Delivery O2 Flow Rate FiO2 02/01/18 02:09 93 NIV CPAP 6.00 02/01/18 01:00 66 02/01/18 00:00 98.0 67 19 134/63 (86) 90 NIV Bilevel 5.00 01/31/18 22:17 94 NIV CPAP 6.00 01/31/18 21:00 High Flow N/C 6.00 01/31/18 19:15 98.0 75 22 151/85 (107) 95 Nasal Cannula 5.00 01/31/18 19:00 79 01/31/18 18:35 96 Nasal Cannula 6.00 01/31/18 15:40 98.2 84 20 137/80 (99) 92 Nasal Cannula 5.00 01/31/18 14:49 93 Nasal Cannula 6.00 01/31/18 13:00 83 01/31/18 12:39 97.8 74 22 146/65 (92) 92 Nasal Cannula 5.00 01/31/18 12:00 NIV Bilevel 6.00 01/31/18 10:34 92 Nasal Cannula 6.00 01/31/18 10:00 73 17 123/57 (79) 95 Nasal Cannula 6.00 01/31/18 10:00 97.8 74 22 146/65 (92) 92 Nasal Cannula 5.00 01/31/18 09:00 75 22 145/70 (95) 93 Nasal Cannula 6.00 01/31/18 08:51 High Flow N/C 6.00 01/31/18 08:51 99.2 Nasal Cannula 6.00 01/31/18 08:00 70 17 128/60 (82) 96 High Flow N/C 6.00 01/31/18 07:00 80 15 137/78 (97) 96 High Flow N/C 6.00 01/31/18 07:00 80 01/31/18 06:59 96 Nasal Cannula 6.00 01/31/18 06:00 69 16 123/68 (86) 95 High Flow N/C 6.00 01/31/18 05:14 98.7 NIV Bilevel 45.00 I & O 02/01/18 07:00 Intake Total 1300 ml Output Total 675 ml Balance 625 ml General Appearance: No Apparent Distress, WD/WN, Obese HEENT: Normal ENT Inspection Neck: Full Range of Motion, Normal Inspection Respiratory: No Accessory Muscle Use, No Respiratory Distress, Decreased Breath Sounds Cardiovascular: Regular Rate, Rhythm, No Murmur Capillary Refill: Less Than 3 Seconds Gastrointestinal: non tender, soft Neurologic/Psychiatric: Alert, Oriented x3 Skin: Normal Color, Warm/Dry Lymphatic: No Adenopathy Results Lab Laboratory Tests 01/30/18 07:47 01/31/18 04:05 Assessment/Plan Assessment/Plan Acute on chronic respiratory failure -Bipap QHS and PRN Pneumonia - Zosyn change to Augmentin x 3 days then D/C Morbid obesity with OHS -Pt has Bipap device at home however appears to be noncompliant Acute renal failure - Multiple hospitalizations UDS positive for Marijuana and narcotics -education 232 JHON STEPHENSON DO February 01, 2018 05:06
[2018-02-01 05:54] LABS: BASOPHILS % (AUTO) 0 % (0-10); EOSINOPHILS % (AUTO) 0 % (0-10); HEMATOCRIT 35 % (40-54); HEMOGLOBIN 10.7 G/DL (13.3-17.7); LYMPHOCYTES # (AUTO) 2.1 X 10^3 (1.0-4.0); LYMPHOCYTES % (AUTO) 17 % (12-44); MEAN CORPUSCULAR HEMOGLOBIN 29 PG (25-34); MEAN CORPUSCULAR HGB CONC 31 G/DL (32-36); MEAN CORPUSCULAR VOLUME 93 FL (80-99); MEAN PLATELET VOLUME 9.4 FL (7.4-10.4); MONOCYTES # (AUTO) 1.1 X 10^3 (0.0-1.0); MONOCYTES % (AUTO) 9 % (0-12); NEUTROPHILS # (AUTO) 9.2 X 10^3 (1.8-7.8); NEUTROPHILS % (AUTO) 74 % (42-75); PLATELET COUNT 217 10^3/uL (130-400); RED BLOOD COUNT 3.71 10^6/uL (4.35-5.85); RED CELL DISTRIBUTION WIDTH 17.5 % (10.0-14.5); WHITE BLOOD COUNT 12.5 10^3/uL (4.3-11.0)
[2018-02-01 06:12] LABS: CALCIUM 9.5 MG/DL (8.5-10.1); CREATININE SERUM 1.57 MG/DL (0.60-1.30); MAGNESIUM 1.9 MG/DL (1.8-2.4); PHOSPHORUS 3.2 MG/DL (2.3-4.7); POTASSIUM 4.3 MMOL/L (3.6-5.0)
[2018-02-01] MEDS: metFORMIN XR 500 MG (GLUCOPHAGE XR) TAB PO SCH (06:42)
[2018-02-01] MEDS: FUROSEMIDE 40 MG (LASIX) TAB PO SCH (06:43)
[2018-02-01] MEDS: CYANOCOBALAMIN 1,000 MCG (VITAMIN B-12) TABLET PO SCH (06:43)
[2018-02-01] MEDS: MULTIVIT W/MINERALS TAB (THERAGRAN M) PO SCH (06:43)
[2018-02-01] MEDS ORDERED: AUGMENTIN 875 MG TAB (AMOXICILLIN/CLAVULANATE) PO SCH (07:00)
--- NOTE | 2018-02-01 07:35 | Progress Note (SOAP) ---
Subjective Time Seen by Provider: 07:25 Subjective/Events-last exam Ration feeling better. Patient wants to go home. White blood cell count better and differential better. Patient have chest x-ray this morning Depending on results with patient Focused Exam Lactate Level 01/30/18 01:05: Lactic Acid Level 0.64 Objective Exam Vital Signs Date Time Temp Pulse Resp B/P (MAP) Pulse Ox O2 Delivery O2 Flow Rate FiO2 02/01/18 05:00 97.8 68 19 140/69 (92) 90 NIV Bilevel 5.00 02/01/18 04:00 97.8 68 19 140/69 (92) 90 NIV Bilevel 5.00 02/01/18 02:09 93 NIV CPAP 6.00 02/01/18 01:00 66 02/01/18 00:00 98.0 67 19 134/63 (86) 90 NIV Bilevel 5.00 01/31/18 22:17 94 NIV CPAP 6.00 01/31/18 21:00 High Flow N/C 6.00 01/31/18 19:15 98.0 75 22 151/85 (107) 95 Nasal Cannula 5.00 01/31/18 19:00 79 01/31/18 18:35 96 Nasal Cannula 6.00 01/31/18 15:40 98.2 84 20 137/80 (99) 92 Nasal Cannula 5.00 01/31/18 14:49 93 Nasal Cannula 6.00 01/31/18 13:00 83 01/31/18 12:39 97.8 74 22 146/65 (92) 92 Nasal Cannula 5.00 01/31/18 12:00 NIV Bilevel 6.00 01/31/18 10:34 92 Nasal Cannula 6.00 01/31/18 10:00 73 17 123/57 (79) 95 Nasal Cannula 6.00 01/31/18 10:00 97.8 74 22 146/65 (92) 92 Nasal Cannula 5.00 01/31/18 09:00 75 22 145/70 (95) 93 Nasal Cannula 6.00 01/31/18 08:51 High Flow N/C 6.00 01/31/18 08:51 99.2 Nasal Cannula 6.00 01/31/18 08:00 70 17 128/60 (82) 96 High Flow N/C 6.00 I & O 02/01/18 07:00 Intake Total 1700 ml Output Total 1675 ml Balance 25 ml Capillary Refill : Less Than 3 Seconds General Appearance: No Apparent Distress, WD/WN, Obese HEENT: Normal ENT Inspection Neck: Full Range of Motion Respiratory: No Accessory Muscle Use, No Respiratory Distress, Decreased Breath Sounds Cardiovascular: Regular Rate, Rhythm, No Murmur Gastrointestinal: non tender, soft Results Lab Laboratory Tests 01/31/18 11:02: Glucometer 176H 01/31/18 15:40: Glucometer 198H 01/31/18 23:27: Glucometer 179H 02/01/18 05:32: Glucometer 148H 02/01/18 05:36: White Blood Count 12.5H, Red Blood Count 3.71L, Hemoglobin 10.7L, Hematocrit 35L , Mean Corpuscular Volume 93, Mean Corpuscular Hemoglobin 29, Mean Corpuscular Hemoglobin Concent 31L, Red Cell Distribution Width 17.5H, Platelet Count 217, Mean Platelet Volume 9.4, Neutrophils (%) (Auto) 74, Lymphocytes (%) (Auto) 17, Monocytes (%) (Auto) 9, Eosinophils (%) (Auto) 0, Basophils (%) (Auto) 0, Neutrophils # (Auto) 9.2H, Lymphocytes # (Auto) 2.1, Monocytes # (Auto) 1.1H, Eosinophils # (Auto) 0.0, Basophils # (Auto) 0.0, Sodium Level 142, Potassium Level 4.3, Chloride Level 97L, Carbon Dioxide Level 32, Anion Gap 13, Blood Urea Nitrogen 41H, Creatinine 1.57H, Estimat Glomerular Filtration Rate 45, BUN/ Creatinine Ratio 26, Glucose Level 131H, Calcium Level 9.5, Phosphorus Level 3.2 , Magnesium Level 1.9 Microbiology 01/30/18 Blood Culture - Preliminary, Resulted No growth 01/30/18 MRSA Screen - Final, Complete MRSA not isolated Assessment/Plan Assessment/Plan Assess & Plan/Chief Complaint Acute and chronic respiratory failure. Pneumonia. Morbid obesity. Acute renal failure. Marijuana use. . 02/01/18. Acute and chronic respiratory failure. Pneumonia. Morbid obesity. Acute renal insufficiency. Patient feeling better and wants to go home. Patient put on Augmentin by mouth Waiting for chest x-ray results Clinical Quality Measures Admission Status Admission Dx Nonresponsive. Acute and chronic respiratory failure. Pneumonia. Short of the air. Pulse ox 69. Hypercapnia. Hypoxemia. Morbid obesity. Patient on 4 L of oxygen at home DVT/VTE Risk/Contraindication: Risk Factor Score Per Nursin RFS Level Per Nursing on Admit: 4+=Very High DANITA TEE DO February 01, 2018 07:35
[2018-02-01] MEDS ORDERED: AMOX-358 PO (07:39)
--- NOTE | 2018-02-01 07:40 | Discharge Inst-Simple/Standard ---
Discharge Inst-Standard Discharge Medications New, Converted or Re-Newed RX: Call to Patients Pharmacy Patient Instructions/Follow Up Plan of Care/Instructions/FU: Take the Augmentin. 2 office on Monday. Activity as Tolerated: Yes Discharge Diet: ADA DANITA Cabrera DO February 01, 2018 07:40
[2018-02-01 08:15] VITALS: BP 120/55
[2018-02-01] MEDS: ENOXAPARIN 60 MG/0.6 ML (LOVENOX) SYR SC SCH (08:38)
[2018-02-01] MEDS: DULoxetine 30 MG (CYMBALTA) CAP PO SCH (08:39)
[2018-02-01] MEDS: lisINopril 10 MG (PRINIVIL) TABLET PO SCH (08:39)
[2018-02-01] MEDS: amLODIPine 5 MG (NORVASC) TAB PO SCH (08:39)
[2018-02-01] MEDS: ATORVASTATIN 10 MG (LIPITOR) TABLET PO SCH (08:39)
[2018-02-01] MEDS: PREGABALIN 75 MG (LYRICA) CAP PO SCH (08:39)
[2018-02-01] MEDS: CELECOXIB 100 MG (CeleBREX) CAP PO SCH (08:39)
[2018-02-01] MEDS: FAMOTIDINE 20 MG (PEPCID) TABLET PO SCH (08:39)
--- NOTE | 2018-02-01 11:38 | Diagnostic Imaging Report ---
CLINICAL INDICATION: Checkup for pneumonia. Patient feels better. EXAM: Chest x-ray PA and lateral views. COMPARISON: Portable chest x-ray dated 01/31/2018. FINDINGS: There is slight improved aeration of the right lung base with residual patchy infiltrates present. There is stable patchy infiltrates in the left midlung field and left lung base region. There is no pleural effusion or pneumothorax. Stable cardiomegaly. Stable prominence of the lateral pulmonary artery regions in the hilar areas. Bones show no significant interval abnormality. IMPRESSION: 1: Slight improved aeration of the right lung base with continued right basilar infiltrates. There is stable mild left midlung field left lung base infiltrates. 2: Stable cardiomegaly with mild prominence of the pulmonary vasculature centrally. Dictated by: Dictated on workstation # [id number]
[2018-02-01 12:00] VITALS: BP 142/71
[2018-02-01] MEDS: oxyCODONE/APAP 5/325MG (PERCOCET 5) TABLET PO PRN (12:04)
[2018-02-01 13:40] VITALS: BP 142/71
--- NOTE | 2018-02-02 16:01 | Physician Query-Final Dx ---
NEIL FARIAS 02/02/18 1601: Final Diagnosis Give Final Diagnosis Please give Final Diagnosis DANITA TEE DO 02/05/18 1844: Final Diagnosis Give Final Diagnosis Acute and chronic respiratory failure. Acute kidney failure. Nonresponsive. Leukocytosis. Pneumonia. Hyperkalemia. Hypoxemia. Hypercapnia. Morbid obesity. Positive for marijuana. Severe obesity NEIL FARIAS Feb 02, 2018 16:01 DANITA TEE DO Feb 05, 2018 18:44
--- NOTE | 2018-02-05 18:43 | Discharge Summary ---
Diagnosis/Chief Complaint Date of Admission January 30, 2018 at 02:05 Date of Discharge February 01, 2018 at 13:20 Discharge Date: February 01, 2018 Discharge Time: 18:40 Discharge Diagnosis Nonresponsive . Acute and chronic respiratory failure. Acute renal insufficiency. Diabetes. Pneumonia. Morbid obesity.. Unwanted used. Hypercapnia. Hypoxia. Hyperkalemia. Severe obesity Hyperlipidemia Reason Hospital Visit Patient is awake this morning. Patient able to give history. Patient supposed to wear CPAP in the morning and BiPAP at night. Patient has to be on oxygen 4 L. found patient unresponsive. Called EMS. Pulse ox in the 60s 1 find Department got there. Patient brought out to the emergency room and was nonresponsive. Patient had hypoxia and hypercapnia. Patient morbid obesity. Patient has history of COPD with acute exacerbation. Patient admitted to ICU Discharge Summary Consultations Pulmonology Discharge Physical Examination Allergies: Coded Allergies: cephalexin (Verified Allergy, Unknown, 04/10/16) Vitals & I&Os Vital Signs Date Time Temp Pulse Resp B/P (MAP) Pulse Ox O2 Delivery O2 Flow Rate FiO2 02/01/18 13:40 84 20 142/71 90 High Flow N/C 5.00 02/01/18 12:00 97.8 01/31/18 04:00 45 Hospital Course Patient did wake up. Patient did feel better. Patient breathing better. Patient wanted to go home Labs (last 24 hrs) Laboratory Tests 01/30/18 01:05: White Blood Count 19.0H, Red Blood Count 3.83L, Hemoglobin 11.1L, Hematocrit 37L , Mean Corpuscular Volume 96, Mean Corpuscular Hemoglobin 29, Mean Corpuscular Hemoglobin Concent 30L, Red Cell Distribution Width 17.3H, Platelet Count 190, Mean Platelet Volume 9.5, Neutrophils (%) (Auto) 85H, Lymphocytes (%) (Auto) 6L , Monocytes (%) (Auto) 8, Eosinophils (%) (Auto) 1, Basophils (%) (Auto) 0, Neutrophils # (Auto) 16.3H, Lymphocytes # (Auto) 1.2, Monocytes # (Auto) 1.5H, Eosinophils # (Auto) 0.1, Basophils # (Auto) 0.0, Neutrophils % (Manual) 86, Lymphocytes % (Manual) 7, Monocytes % (Manual) 5, Eosinophils % (Manual) 0, Basophils % (Manual) 0, Band Neutrophils 2, Polychromasia SLIGHT, Hypochromasia SLIGHT, Anisocytosis SLIGHT, Macrocytosis SLIGHT, Prothrombin Time 12.7, INR Comment 1.0, Activated Partial Thromboplast Time 33, Sodium Level 140, Potassium Level 5.6H, Chloride Level 96L, Carbon Dioxide Level 31, Anion Gap 13 , Blood Urea Nitrogen 28H, Creatinine 1.64H, Estimat Glomerular Filtration Rate 43, BUN/Creatinine Ratio 17, Glucose Level 176H, Lactic Acid Level 0.64, Calcium Level 9.7, Magnesium Level 2.1, Total Bilirubin 0.5, Aspartate Amino Transf (AST/SGOT) 15, Alanine Aminotransferase (ALT/SGPT) 19, Alkaline Phosphatase 132, Total Creatine Kinase 28L, Creatine Kinase MB 0.9, Troponin I < 0.30, B-Type Natriuretic Peptide 24.3, Total Protein 8.3H, Albumin 4.0, Procalcitonin 0.21H, Serum Alcohol < 10 01/30/18 01:09: Glucometer 180H 01/30/18 01:14: Blood Gas Puncture Site LRAD, Blood Gas Patient Temperature 99.3, Arterial Blood pH 7.21*L, Arterial Blood Partial Pressure CO2 99*H, Arterial Blood Partial Pressure O2 131H, Arterial Blood HCO3 38H, Arterial Blood Total CO2 41.1H, Arterial Blood Oxygen Saturation 99, Arterial Blood Base Excess 10.4H, Neil Test YES-POS, Blood Gas Ventilator Setting NO, Blood Gas Inspired Oxygen BIPAP 01/30/18 02:00: Urine Color YELLOW, Urine Clarity SLIGHTLY CLOUDY, Urine pH 5, Urine Specific [place] 1.025H, Urine Protein 3+H, Urine Glucose (UA) NEGATIVE, Urine Ketones NEGATIVE, Urine Nitrite NEGATIVE, Urine Bilirubin NEGATIVE, Urine Urobilinogen NORMAL, Urine Leukocyte Esterase NEGATIVE, Urine RBC (Auto) NEGATIVE, Urine RBC NONE, Urine WBC NONE, Urine Squamous Epithelial Cells RARE, Urine Crystals NONE , Urine Bacteria FEWH, Urine Casts PRESENT, Urine Hyaline Casts 5-10H, Urine Mucus MODERATEH, Urine Culture Indicated NO, Urine Opiates Screen NEGATIVE, Urine Oxycodone Screen POSITIVEH, Urine Methadone Screen NEGATIVE, Urine Propoxyphene Screen NEGATIVE, Urine Barbiturates Screen NEGATIVE, Ur Tricyclic Antidepressants Screen NEGATIVE, Urine Phencyclidine Screen NEGATIVE, Urine Amphetamines Screen NEGATIVE, Urine Methamphetamines Screen NEGATIVE, Urine Benzodiazepines Screen NEGATIVE, Urine Cocaine Screen NEGATIVE, Urine Cannabinoids Screen POSITIVEH 01/30/18 02:40: Blood Gas Puncture Site L BRACH, Blood Gas Patient Temperature 99.3, Arterial Blood pH 7.22*L, Arterial Blood Partial Pressure CO2 99*H, Arterial Blood Partial Pressure O2 95H, Arterial Blood HCO3 39H, Arterial Blood Total CO2 41.9H , Arterial Blood Oxygen Saturation 96, Arterial Blood Base Excess 11.3H, Neil Test NA, Blood Gas Ventilator Setting NO, Blood Gas Inspired Oxygen BIPAP 01/30/18 07:47: White Blood Count 19.4H, Red Blood Count 3.68L, Hemoglobin 10.7L, Hematocrit 35L , Mean Corpuscular Volume 96, Mean Corpuscular Hemoglobin 29, Mean Corpuscular Hemoglobin Concent 30L, Red Cell Distribution Width 17.3H, Platelet Count 204, Mean Platelet Volume 9.7, Neutrophils (%) (Auto) 95H, Lymphocytes (%) (Auto) 4L , Monocytes (%) (Auto) 1, Eosinophils (%) (Auto) 0, Basophils (%) (Auto) 0, Neutrophils # (Auto) 18.4H, Lymphocytes # (Auto) 0.8L, Monocytes # (Auto) 0.3, Eosinophils # (Auto) 0.0, Basophils # (Auto) 0.0, Sodium Level 139, Potassium Level 5.6H, Chloride Level 96L, Carbon Dioxide Level 34H, Anion Gap 9, Blood Urea Nitrogen 29H, Creatinine 1.70H, Estimat Glomerular Filtration Rate 41, BUN/ Creatinine Ratio 17, Glucose Level 223H, Calcium Level 9.5, Phosphorus Level 3.7 , Magnesium Level 2.1, Total Bilirubin 0.5, Aspartate Amino Transf (AST/SGOT) 14 , Alanine Aminotransferase (ALT/SGPT) 19, Alkaline Phosphatase 121, Total Protein 7.9, Albumin 3.8 01/30/18 08:45: Blood Gas Puncture Site Left radial, Blood Gas Patient Temperature 98.3, Arterial Blood pH 7.28*L, Arterial Blood Partial Pressure CO2 85*H, Arterial Blood Partial Pressure O2 68L, Arterial Blood HCO3 39H, Arterial Blood Total CO2 41.8H, Arterial Blood Oxygen Saturation 92L, Arterial Blood Base Excess 12.2H, Neil Test Negative, Blood Gas Ventilator Setting NO, Blood Gas Inspired Oxygen 80% 01/30/18 14:20: Blood Gas Puncture Site RIGHT RADIAL, Blood Gas Patient Temperature 96.7, Arterial Blood pH 7.36L, Arterial Blood Partial Pressure CO2 69H, Arterial Blood Partial Pressure O2 72L, Arterial Blood HCO3 39H, Arterial Blood Total CO2 40.8H, Arterial Blood Oxygen Saturation 96, Arterial Blood Base Excess 12.5H , Neil Test POSITIVE, Blood Gas Ventilator Setting NO, Blood Gas Inspired Oxygen 40% BIPAP 01/31/18 04:05: White Blood Count 16.3H, Red Blood Count 3.81L, Hemoglobin 11.0L, Hematocrit 36L , Mean Corpuscular Volume 94, Mean Corpuscular Hemoglobin 29, Mean Corpuscular Hemoglobin Concent 31L, Red Cell Distribution Width 16.9H, Platelet Count 199, Mean Platelet Volume 9.6, Neutrophils (%) (Auto) 92H, Lymphocytes (%) (Auto) 5L , Monocytes (%) (Auto) 3, Eosinophils (%) (Auto) 0, Basophils (%) (Auto) 0, Neutrophils # (Auto) 15.0H, Lymphocytes # (Auto) 0.8L, Monocytes # (Auto) 0.5, Eosinophils # (Auto) 0.0, Basophils # (Auto) 0.0, Sodium Level 139, Potassium Level 4.9, Chloride Level 94L, Carbon Dioxide Level 32, Anion Gap 13, Blood Urea Nitrogen 33H, Creatinine 1.55H, Estimat Glomerular Filtration Rate 46, BUN/ Creatinine Ratio 21, Glucose Level 216H, Calcium Level 9.8, Phosphorus Level 2.4 , Magnesium Level 2.1, Total Bilirubin 0.3, Aspartate Amino Transf (AST/SGOT) 15 , Alanine Aminotransferase (ALT/SGPT) 19, Alkaline Phosphatase 113, B-Type Natriuretic Peptide 113.7H, Total Protein 7.6, Albumin 3.6 01/31/18 05:13: Blood Gas Puncture Site R RAD, Blood Gas Patient Temperature 98.7, Arterial Blood pH 7.42, Arterial Blood Partial Pressure CO2 60H, Arterial Blood Partial Pressure O2 90, Arterial Blood HCO3 38H, Arterial Blood Total CO2 39.6H, Arterial Blood Oxygen Saturation 98, Arterial Blood Base Excess 12.6H, Neil Test YES-POS, Blood Gas Ventilator Setting NO, Blood Gas Inspired Oxygen 45% BIPAP 01/31/18 11:02: Glucometer 176H 01/31/18 15:40: Glucometer 198H 01/31/18 23:27: Glucometer 179H 02/01/18 05:32: Glucometer 148H 02/01/18 05:36: White Blood Count 12.5H, Red Blood Count 3.71L, Hemoglobin 10.7L, Hematocrit 35L , Mean Corpuscular Volume 93, Mean Corpuscular Hemoglobin 29, Mean Corpuscular Hemoglobin Concent 31L, Red Cell Distribution Width 17.5H, Platelet Count 217, Mean Platelet Volume 9.4, Neutrophils (%) (Auto) 74, Lymphocytes (%) (Auto) 17, Monocytes (%) (Auto) 9, Eosinophils (%) (Auto) 0, Basophils (%) (Auto) 0, Neutrophils # (Auto) 9.2H, Lymphocytes # (Auto) 2.1, Monocytes # (Auto) 1.1H, Eosinophils # (Auto) 0.0, Basophils # (Auto) 0.0, Sodium Level 142, Potassium Level 4.3, Chloride Level 97L, Carbon Dioxide Level 32, Anion Gap 13, Blood Urea Nitrogen 41H, Creatinine 1.57H, Estimat Glomerular Filtration Rate 45, BUN/ Creatinine Ratio 26, Glucose Level 131H, Calcium Level 9.5, Phosphorus Level 3.2 , Magnesium Level 1.9 02/01/18 11:03: Glucometer 112H Microbiology 01/30/18 Blood Culture - Final, Complete No growth 01/30/18 MRSA Screen - Final, Complete MRSA not isolated Laboratory Tests 01/30/18 01:05 01/30/18 07:47 01/31/18 04:05 02/01/18 05:36 Pending Labs Microbiology Date/Time Source Procedure Growth Status 01/30/18 01:25 Peripheral Rt Hand Blood Culture - Final No growth Complete 01/30/18 01:05 Peripheral Right Wrist Blood Culture - Final No growth Complete 01/30/18 12:40 Nasal MRSA Screen - Final MRSA not isolated Complete 01/30/18 07:55 Sputum Expectorated Gram Stain - Final Complete 01/30/18 07:55 Sputum Expectorated Sputum Culture - Final Usual/normal analilia isolated. Complete Laboratory Tests 01/30/18 01:05: White Blood Count 19.0, Red Blood Count 3.83, Hemoglobin 11.1, Hematocrit 37, Mean Corpuscular Volume 96, Mean Corpuscular Hemoglobin 29, Mean Corpuscular Hemoglobin Concent 30, Red Cell Distribution Width 17.3, Platelet Count 190, Mean Platelet Volume 9.5, Neutrophils (%) (Auto) 85, Lymphocytes (%) (Auto) 6, Monocytes (%) (Auto) 8, Eosinophils (%) (Auto) 1, Basophils (%) (Auto) 0, Neutrophils # (Auto) 16.3, Lymphocytes # (Auto) 1.2, Monocytes # (Auto) 1.5, Eosinophils # (Auto) 0.1, Basophils # (Auto) 0.0, Neutrophils % (Manual) 86, Lymphocytes % (Manual) 7, Monocytes % (Manual) 5, Eosinophils % (Manual) 0, Basophils % (Manual) 0, Band Neutrophils 2, Polychromasia SLIGHT, Hypochromasia SLIGHT, Anisocytosis SLIGHT, Macrocytosis SLIGHT, Prothrombin Time 12.7, INR Comment 1.0, Activated Partial Thromboplast Time 33, Sodium Level 140, Potassium Level 5.6, Chloride Level 96, Carbon Dioxide Level 31, Anion Gap 13, Blood Urea Nitrogen 28, Creatinine 1.64, Estimat Glomerular Filtration Rate 43, BUN/Creatinine Ratio 17, Glucose Level 176, Lactic Acid Level 0.64, Calcium Level 9.7, Magnesium Level 2.1, Total Bilirubin 0.5, Aspartate Amino Transf (AST /SGOT) 15, Alanine Aminotransferase (ALT/SGPT) 19, Alkaline Phosphatase 132, Total Creatine Kinase 28, Creatine Kinase MB 0.9, Troponin I < 0.30, B-Type Natriuretic Peptide 24.3, Total Protein 8.3, Albumin 4.0, Procalcitonin 0.21, Serum Alcohol < 10 01/30/18 01:09: Glucometer 180 01/30/18 01:14: Blood Gas Puncture Site LRAD, Blood Gas Patient Temperature 99.3, Arterial Blood pH 7.21, Arterial Blood Partial Pressure CO2 99, Arterial Blood Partial Pressure O2 131, Arterial Blood HCO3 38, Arterial Blood Total CO2 41.1, Arterial Blood Oxygen Saturation 99, Arterial Blood Base Excess 10.4, Neil Test YES-POS, Blood Gas Ventilator Setting NO, Blood Gas Inspired Oxygen BIPAP 01/30/18 02:00: Urine Color YELLOW, Urine Clarity SLIGHTLY CLOUDY, Urine pH 5, Urine Specific [place] 1.025, Urine Protein 3+, Urine Glucose (UA) NEGATIVE, Urine Ketones NEGATIVE, Urine Nitrite NEGATIVE, Urine Bilirubin NEGATIVE, Urine Urobilinogen NORMAL, Urine Leukocyte Esterase NEGATIVE, Urine RBC (Auto) NEGATIVE, Urine RBC NONE, Urine WBC NONE, Urine Squamous Epithelial Cells RARE, Urine Crystals NONE , Urine Bacteria FEW, Urine Casts PRESENT, Urine Hyaline Casts 5-10, Urine Mucus MODERATE, Urine Culture Indicated NO, Urine Opiates Screen NEGATIVE, Urine Oxycodone Screen POSITIVE, Urine Methadone Screen NEGATIVE, Urine Propoxyphene Screen NEGATIVE, Urine Barbiturates Screen NEGATIVE, Ur Tricyclic Antidepressants Screen NEGATIVE, Urine Phencyclidine Screen NEGATIVE, Urine Amphetamines Screen NEGATIVE, Urine Methamphetamines Screen NEGATIVE, Urine Benzodiazepines Screen NEGATIVE, Urine Cocaine Screen NEGATIVE, Urine Cannabinoids Screen POSITIVE 01/30/18 02:40: Blood Gas Puncture Site L BRACH, Blood Gas Patient Temperature 99.3, Arterial Blood pH 7.22, Arterial Blood Partial Pressure CO2 99, Arterial Blood Partial Pressure O2 95, Arterial Blood HCO3 39, Arterial Blood Total CO2 41.9, Arterial Blood Oxygen Saturation 96, Arterial Blood Base Excess 11.3, Neil Test NA, Blood Gas Ventilator Setting NO, Blood Gas Inspired Oxygen BIPAP 01/30/18 07:47: White Blood Count 19.4, Red Blood Count 3.68, Hemoglobin 10.7, Hematocrit 35, Mean Corpuscular Volume 96, Mean Corpuscular Hemoglobin 29, Mean Corpuscular Hemoglobin Concent 30, Red Cell Distribution Width 17.3, Platelet Count 204, Mean Platelet Volume 9.7, Neutrophils (%) (Auto) 95, Lymphocytes (%) (Auto) 4, Monocytes (%) (Auto) 1, Eosinophils (%) (Auto) 0, Basophils (%) (Auto) 0, Neutrophils # (Auto) 18.4, Lymphocytes # (Auto) 0.8, Monocytes # (Auto) 0.3, Eosinophils # (Auto) 0.0, Basophils # (Auto) 0.0, Sodium Level 139, Potassium Level 5.6, Chloride Level 96, Carbon Dioxide Level 34, Anion Gap 9, Blood Urea Nitrogen 29, Creatinine 1.70, Estimat Glomerular Filtration Rate 41, BUN/ Creatinine Ratio 17, Glucose Level 223, Calcium Level 9.5, Phosphorus Level 3.7 , Magnesium Level 2.1, Total Bilirubin 0.5, Aspartate Amino Transf (AST/SGOT) 14 , Alanine Aminotransferase (ALT/SGPT) 19, Alkaline Phosphatase 121, Total Protein 7.9, Albumin 3.8 5/29/18 08:45: Blood Gas Puncture Site Left radial, Blood Gas Patient Temperature 98.3, Arterial Blood pH 7.28, Arterial Blood Partial Pressure CO2 85, Arterial Blood Partial Pressure O2 68, Arterial Blood HCO3 39, Arterial Blood Total CO2 41.8, Arterial Blood Oxygen Saturation 92, Arterial Blood Base Excess 12.2, Neil Test Negative, Blood Gas Ventilator Setting NO, Blood Gas Inspired Oxygen 80% 01/30/18 14:20: Blood Gas Puncture Site RIGHT RADIAL, Blood Gas Patient Temperature 96.7, Arterial Blood pH 7.36, Arterial Blood Partial Pressure CO2 69, Arterial Blood Partial Pressure O2 72, Arterial Blood HCO3 39, Arterial Blood Total CO2 40.8, Arterial Blood Oxygen Saturation 96, Arterial Blood Base Excess 12.5, Neil Test POSITIVE, Blood Gas Ventilator Setting NO, Blood Gas Inspired Oxygen 40% BIPAP 01/31/18 04:05: White Blood Count 16.3, Red Blood Count 3.81, Hemoglobin 11.0, Hematocrit 36, Mean Corpuscular Volume 94, Mean Corpuscular Hemoglobin 29, Mean Corpuscular Hemoglobin Concent 31, Red Cell Distribution Width 16.9, Platelet Count 199, Mean Platelet Volume 9.6, Neutrophils (%) (Auto) 92, Lymphocytes (%) (Auto) 5, Monocytes (%) (Auto) 3, Eosinophils (%) (Auto) 0, Basophils (%) (Auto) 0, Neutrophils # (Auto) 15.0, Lymphocytes # (Auto) 0.8, Monocytes # (Auto) 0.5, Eosinophils # (Auto) 0.0, Basophils # (Auto) 0.0, Sodium Level 139, Potassium Level 4.9, Chloride Level 94, Carbon Dioxide Level 32, Anion Gap 13, Blood Urea Nitrogen 33, Creatinine 1.55, Estimat Glomerular Filtration Rate 46, BUN/ Creatinine Ratio 21, Glucose Level 216, Calcium Level 9.8, Phosphorus Level 2.4 , Magnesium Level 2.1, Total Bilirubin 0.3, Aspartate Amino Transf (AST/SGOT) 15 , Alanine Aminotransferase (ALT/SGPT) 19, Alkaline Phosphatase 113, B-Type Natriuretic Peptide 113.7, Total Protein 7.6, Albumin 3.6 01/31/18 05:13: Blood Gas Puncture Site R RAD, Blood Gas Patient Temperature 98.7, Arterial Blood pH 7.42, Arterial Blood Partial Pressure CO2 60, Arterial Blood Partial Pressure O2 90, Arterial Blood HCO3 38, Arterial Blood Total CO2 39.6, Arterial Blood Oxygen Saturation 98, Arterial Blood Base Excess 12.6, Neil Test YES-POS , Blood Gas Ventilator Setting NO, Blood Gas Inspired Oxygen 45% BIPAP 01/31/18 11:02: Glucometer 176 01/31/18 15:40: Glucometer 198 01/31/18 23:27: Glucometer 179 02/01/18 05:32: Glucometer 148 02/01/18 05:36: White Blood Count 12.5, Red Blood Count 3.71, Hemoglobin 10.7, Hematocrit 35, Mean Corpuscular Volume 93, Mean Corpuscular Hemoglobin 29, Mean Corpuscular Hemoglobin Concent 31, Red Cell Distribution Width 17.5, Platelet Count 217, Mean Platelet Volume 9.4, Neutrophils (%) (Auto) 74, Lymphocytes (%) (Auto) 17, Monocytes (%) (Auto) 9, Eosinophils (%) (Auto) 0, Basophils (%) (Auto) 0, Neutrophils # (Auto) 9.2, Lymphocytes # (Auto) 2.1, Monocytes # (Auto) 1.1, Eosinophils # (Auto) 0.0, Basophils # (Auto) 0.0, Sodium Level 142, Potassium Level 4.3, Chloride Level 97, Carbon Dioxide Level 32, Anion Gap 13, Blood Urea Nitrogen 41, Creatinine 1.57, Estimat Glomerular Filtration Rate 45, BUN/ Creatinine Ratio 26, Glucose Level 131, Calcium Level 9.5, Phosphorus Level 3.2 , Magnesium Level 1.9 02/01/18 11:03: Glucometer 112 Discharge Home Medications: Active Scripts Active Augmentin 875-125 Tablet (Amoxicillin/Potassium Clav) 1 Each Tablet 1 Each PO BID WITH MEALS 6 Days Reported Centrum Adults Tablet (Multivitamin/Iron/Folic Acid) 1 Each Tablet 1 Each PO DAILY Vitamin B-12 5,000 Mcg Tab Sl (Cyanocobalamin/Cobamamide) 1 Each Tab.subl 5,000 Mcg SL DAILY Lisinopril 10 Mg Tablet 10 Mg PO DAILY Furosemide 40 Mg Tablet 40 Mg PO BID Oxycodone-Acetaminophen 5-325 (Oxycodone HCl/Acetaminophen) 1 Each Tablet 1 Tab PO TID PRN Metformin HCl ER (Metformin HCl) 500 Mg Tab.er.24h 500 Mg PO BID Albuterol Sulfate 2.5 Mg/3 Ml Vial.neb 2.5 Mg IH TID PRN Lyrica (Pregabalin) 150 Mg Capsule 150 Mg PO BID Atorvastatin Calcium 10 Mg Tablet 10 Mg PO DAILY Amlodipine Besylate 5 Mg Tablet 5 Mg PO DAILY Ranitidine HCl 150 Mg Tablet 150 Mg PO BID Symbicort 160-4.5 Mcg Inhaler (Budesonide/Formoterol Fumarate) 10.2 Gm Hfa.aer.ad 2 Puff INH BID Duloxetine HCl 60 Mg Capsule.dr 60 Mg PO BID Celecoxib 200 Mg Capsule 200 Mg PO BID Trazodone HCl 100 Mg Tablet 100 Mg PO HS Instructions to patient/family Please see electronic discharge instructions given to patient. Clinical Quality Measures DVT/VTE Risk/Contraindication: Risk Factor Score Per Nursin RFS Level Per Nursing on Admit: 4+=Very High DANITA TEE DO Feb 05, 2018 18:43
== END 2018-02-01 13:20 | disposition home or self-care (01) | DRG 193 ==
LOC: EDUNIT# 00:54 → ER 00:56 → UNDOADMIN 02:05 → ICU 02:05 → ER 01-31 02:34 → 4TH 01-31 10:00 → ICU 01-31 10:00 → UNDODISIN 02-01 13:20
PROVIDERS: ADMIT Internal Medicine; ATTEND Internal Medicine
DX: J18.9 Pneumonia, unspecified organism (principal); J96.21 Acute and chronic respiratory failure with hypoxia; J96.22 Acute and chronic respiratory failure with hypercapnia; I13.0 Hypertensive heart and chronic kidney disease with heart failure and stage 1 through stage 4 chronic kidney disease, or unspecified chronic kidney disease; N17.9 Acute kidney failure, unspecified; E66.2 Morbid (severe) obesity with alveolar hypoventilation; Z68.43 Body mass index [BMI] 50.0-59.9, adult; J43.9 Emphysema, unspecified; I50.9 Heart failure, unspecified; N18.9 Chronic kidney disease, unspecified; E87.5 Hyperkalemia; I27.20 Pulmonary hypertension, unspecified; E11.9 Type 2 diabetes mellitus without complications; F41.9 Anxiety disorder, unspecified; F32.9 Major depressive disorder, single episode, unspecified; I25.10 Atherosclerotic heart disease of native coronary artery without angina pectoris; F12.90 Cannabis use, unspecified, uncomplicated; J30.2 Other seasonal allergic rhinitis; E78.00 Pure hypercholesterolemia, unspecified; I87.8 Other specified disorders of veins; M81.0 Age-related osteoporosis without current pathological fracture; M19.91 Primary osteoarthritis, unspecified site; M54.9 Dorsalgia, unspecified; Z87.891 Personal history of nicotine dependence; Z99.81 Dependence on supplemental oxygen; Z79.84 Long term (current) use of oral hypoglycemic drugs
CPT/HCPCS: 36415; 36600; 51702; 71045; 71046; 80048; 80053; 80306; 80320; 81000; 82550; 82553; 82805; 82962; 83605; 83735; 83880; 84100; 84145; 84484; 85007; 85025; 85027; 85610; 85730; 87040; 87070; 87081; 87205; 93005; 93041; 94640; 94660; 94760; 96365; 96375

== ENCOUNTER 2018-08-14 10:31 | Emergency (ER) | payer MEDICARE, OTHER ==
[~2018-08-14] VITALS: Ht 177.8 cm; Wt 155.1 kg
[~2018-08-14 10:31] MED LIST changes: -AMLO5TAB2 PO; +AMLO5TAB7 PO; +AMOX-358 PO; +MULT-1067 PO; +TRAZ-190 PO; -TRAZ100T92 PO
[2018-08-14] MEDS ORDERED: RT-ALBUTEROL/IPRATROPIUM 3 ML (DUONEB) VIAL ONE (10:49)
[2018-08-14] MEDS ORDERED: RT-ALBUTEROL/IPRATROPIUM 3 ML (DUONEB) VIAL INH ONE (11:00)
[2018-08-14 11:06] LABS: BASOPHILS % (AUTO) 0 % (0-10); EOSINOPHILS # (AUTO) 0.1 10^3/uL (0.0-0.3); EOSINOPHILS % (AUTO) 1 % (0-10); HEMATOCRIT 40 % (40-54); HEMOGLOBIN 12.2 G/DL (13.3-17.7); LYMPHOCYTES # (AUTO) 1.1 X 10^3 (1.0-4.0); LYMPHOCYTES % (AUTO) 12 % (12-44); MEAN CORPUSCULAR HEMOGLOBIN 29 PG (25-34); MEAN CORPUSCULAR HGB CONC 31 G/DL (32-36); MEAN CORPUSCULAR VOLUME 94 FL (80-99); MEAN PLATELET VOLUME 9.5 FL (7.4-10.4); MONOCYTES # (AUTO) 0.5 X 10^3 (0.0-1.0); MONOCYTES % (AUTO) 6 % (0-12); NEUTROPHILS # (AUTO) 7.4 X 10^3 (1.8-7.8); NEUTROPHILS % (AUTO) 81 % (42-75); PLATELET COUNT 176 10^3/uL (130-400); RED BLOOD COUNT 4.22 10^6/uL (4.35-5.85); RED CELL DISTRIBUTION WIDTH 15.7 % (10.0-14.5); WHITE BLOOD COUNT 9.1 10^3/uL (4.3-11.0)
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
[2018-08-14 11:09] LABS: ABG BASE EXCESS 14.4 MMOL/L (-2.5-2.5); ABG OXYGEN SATURATION 97 % (94-100); ABG PH 7.37 (7.37-7.43); ABG PO2 76 MMHG (79-93); ABG TCO2 42.9 MMOL/L (21.0-31.0)
[2018-08-14] MEDS ORDERED: morphine INJ 10 MG/ML 1ML (SYR OR VIAL) ONE (11:12)
[2018-08-14 11:13] LABS: ABG PCO2 71 MMHG (35-45)
[2018-08-14 11:14] LABS: ALLENS TEST YES-POS; INSPIRED O2 9; PATIENT TEMP 96.8; VENTILATOR NO
[2018-08-14] MEDS ORDERED: morphine INJ 10 MG/ML 1ML (SYR OR VIAL) IVP STA ×2 (11:15→11:59)
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
[2018-08-14 11:27] LABS: ALANINE AMINOTRANSFERASE 14 U/L (0-55); ALKALINE PHOSPHATASE 129 U/L (40-136); BILIRUBIN,TOTAL 0.4 MG/DL (0.1-1.0); BUN/CREATININE RATIO 24; CARBON DIOXIDE 36 MMOL/L (21-32); CHLORIDE 93 MMOL/L (98-107); CREATININE SERUM 1.11 MG/DL (0.60-1.30); GFR ESTIMATED > 60; GLUCOSE 123 MG/DL (70-105); POTASSIUM 4.6 MMOL/L (3.6-5.0); SODIUM 140 MMOL/L (135-145); TOTAL PROTEIN 7.8 GM/DL (6.4-8.2)
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
[2018-08-14] MEDS ORDERED: TETANUS,DIPTH,PERTUSS P/F (BOOSTRIX) 0.5 ML VIAL IM STA (11:55)
[2018-08-14] MEDS ORDERED: RT-ALBUTEROL SULF 2.5 MG/3 ML PRE-MIX VIAL INH STA (11:59)
[2018-08-14] MEDS ORDERED: methylPREDNISolone 125 MG (Solu-MEDROL) VIAL IV STA (12:05)
[2018-08-14 12:51] VITALS: BP 114/89
== END 2018-08-14 12:51 | disposition short-term general hospital (02) ==
LOC: EDUNIT# 10:31 → ER 10:32
DX: T20.26XA Burn of second degree of forehead and cheek, initial encounter (principal); T20.24XA Burn of second degree of nose (septum), initial encounter; T31.0 Burns involving less than 10% of body surface; I11.0 Hypertensive heart disease with heart failure; I50.9 Heart failure, unspecified; E78.00 Pure hypercholesterolemia, unspecified; I73.9 Peripheral vascular disease, unspecified; I25.10 Atherosclerotic heart disease of native coronary artery without angina pectoris; M81.0 Age-related osteoporosis without current pathological fracture; E66.01 Morbid (severe) obesity due to excess calories; F41.9 Anxiety disorder, unspecified; F32.9 Major depressive disorder, single episode, unspecified; I27.0 Primary pulmonary hypertension; J43.9 Emphysema, unspecified; J45.901 Unspecified asthma with (acute) exacerbation; G47.30 Sleep apnea, unspecified; R40.2142 Coma scale, eyes open, spontaneous, at arrival to emergency department; R40.2252 Coma scale, best verbal response, oriented, at arrival to emergency department; R40.2362 Coma scale, best motor response, obeys commands, at arrival to emergency department; Z88.1 Allergy status to other antibiotic agents; Z68.41 Body mass index [BMI] 40.0-44.9, adult; Z79.51 Long term (current) use of inhaled steroids; Z82.49 Family history of ischemic heart disease and other diseases of the circulatory system; Z80.1 Family history of malignant neoplasm of trachea, bronchus and lung; Z87.891 Personal history of nicotine dependence; Z98.52 Vasectomy status; Z95.9 Presence of cardiac and vascular implant and graft, unspecified; Z87.01 Personal history of pneumonia (recurrent); Z79.84 Long term (current) use of oral hypoglycemic drugs; X03.0XXA Exposure to flames in controlled fire, not in building or structure, initial encounter
CPT/HCPCS: 36415; 36600; 71045; 80053; 82805; 85025; 90471; 90715; 94640; 96374; 96375; 96376

== ENCOUNTER 2018-09-19 05:38 | Inpatient (IN) | payer MEDICARE ==
[~2018-09-19] VITALS: Ht 177.8 cm; Wt 162.8 kg
[2018-09-19] VITALS (24 sets, daily range): BP systolic 101–157; BP diastolic 39–83
[~2018-09-19 05:38] MED LIST changes: -AMLO5TAB7 PO; +AMLO5TAB9 PO
[2018-09-19] MEDS ORDERED: RT-ALBUTEROL SULF 2.5 MG/3 ML PRE-MIX VIAL INH STA (05:43)
[2018-09-19] MEDS ORDERED: methylPREDNISolone 125 MG (Solu-MEDROL) VIAL IVP ONE (05:45)
[2018-09-19] MEDS ORDERED: RT-ALBUTEROL/IPRATROPIUM 3 ML (DUONEB) VIAL INH ONE (05:45)
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
--- OUTSIDE RECORDS SUMMARY | 2018-09-19 05:46 | XMS REPORT | Encounter Summary ---
Author Author [facility] Organization [facility] Address Unknown Phone Unavailable Care Team Providers Care Motor Setter Name Role Phone Ricky Cleveland PCP Encounter Details Care Team Description Date Type Department 08/14/2018 Hospital [facility] Encounter Hospital Radiology [facility] [address] [place] [id number] Social History Date Tobacco Use Types Packs/Day [...] travel history available. as of this encounter Functional Status Date of Assessment Functional Status Response 08/14/2018 Does the patient have a hearing impairment: Yes as of this encounter Medications at Time of Discharge [...] 0 ZESTRIL) 10 mg tablet mouth daily. ejydkyxe-smt-JY-lycopen-l Take 1 tablet 0 utein (CENTRUM SILVER [...] 10,000 0 capsule Units by mouth daily. 08/16/2018 celecoxib (CELEBREX) 200 Take 200 mg 0 mg capsule by mouth twice daily. as of this encounter Plan of Treatment Not on fileas of this encounter Procedures Comments Procedure Name Priority Date/Time Associated Diagnosis GENERAL RAD CHEST Routine 08/14/2018 Diagnosis unknown EXTERNAL IMAGING 4:05 PM DISPLAY FABRICATION SUPERVISOR in this encounter Visit Diagnoses Not on filein this encounter
[2018-09-19 05:59] LABS: BASOPHILS % (AUTO) 0 % (0-10); EOSINOPHILS % (AUTO) 0 % (0-10); HEMATOCRIT 38 % (40-54); HEMOGLOBIN 11.4 G/DL (13.3-17.7); LYMPHOCYTES # (AUTO) 0.7 X 10^3 (1.0-4.0); LYMPHOCYTES % (AUTO) 6 % (12-44); MEAN CORPUSCULAR HEMOGLOBIN 29 PG (25-34); MEAN CORPUSCULAR HGB CONC 30 G/DL (32-36); MEAN CORPUSCULAR VOLUME 96 FL (80-99); MEAN PLATELET VOLUME 8.9 FL (7.4-10.4); MONOCYTES # (AUTO) 0.9 X 10^3 (0.0-1.0); MONOCYTES % (AUTO) 7 % (0-12); NEUTROPHILS # (AUTO) 10.6 X 10^3 (1.8-7.8); NEUTROPHILS % (AUTO) 87 % (42-75); PLATELET COUNT 238 10^3/uL (130-400); RED BLOOD COUNT 3.89 10^6/uL (4.35-5.85); WHITE BLOOD COUNT 12.2 10^3/uL (4.3-11.0)
[2018-09-19 06:03] LABS: INR 0.9 (0.8-1.4); PROTHROMBIN TIME PATIENT 12.5 SEC (12.2-14.7)
[2018-09-19 06:09] LABS: ALANINE AMINOTRANSFERASE 17 U/L (0-55); ALBUMIN 3.7 GM/DL (3.2-4.5); ALKALINE PHOSPHATASE 149 U/L (40-136); BILIRUBIN,TOTAL 0.2 MG/DL (0.1-1.0); BUN/CREATININE RATIO 26; CALCIUM 9.4 MG/DL (8.5-10.1); CARBON DIOXIDE 36 MMOL/L (21-32); CHLORIDE 93 MMOL/L (98-107); GFR ESTIMATED > 60; GLUCOSE 146 MG/DL (70-105); POTASSIUM 5.1 MMOL/L (3.6-5.0); SODIUM 139 MMOL/L (135-145); TOTAL PROTEIN 7.8 GM/DL (6.4-8.2)
[2018-09-19 06:12] LABS: ABG BASE EXCESS 12.1 MMOL/L (-2.5-2.5); ABG OXYGEN SATURATION 96 % (94-100); ABG PO2 85 MMHG (79-93); ABG TCO2 43.1 MMOL/L (21.0-31.0)
[2018-09-19 06:13] LABS: ABG PCO2 105 MMHG (35-45); ABG PH 7.21 (7.37-7.43)
[2018-09-19 06:14] LABS: ALLENS TEST YES-POS; INSPIRED O2 60% BIPAP; PATIENT TEMP 99.4; VENTILATOR NO
[2018-09-19 06:26] LABS: BAND NEUTROPHILS 9 %; EOSINOPHILS % (MANUAL) 2 %; LYMPHOCYTES % (MANUAL) 1 %; METAMYELOCYTES % 2 %; MONOCYTES % (MANUAL) 7 %; NEUTROPHILS % (MANUAL) 79 %; RBC MORPH NORMAL
[2018-09-19] MEDS ORDERED: NS IV 1000 ML 1,000 ML IV ONE (06:33)
--- NOTE | 2018-09-19 06:39 | ED Respiratory ---
General Chief Complaint: Respiratory Problems Stated Complaint: COPD Nursing Triage Note: TO ED VIA EMS. PER EMS PT WAS HAVING TROUBLE BREATHING SINCE 0430 THIS AM. WAS ON HOME CPAP, 02 SAT PER EMS WAS 47%. PT PLACED ON NRB AND SATS INCREASED TO HIGH 90s. INITIAL ETCO2 IN 80s FOR EMS AND MID 50s ENROUTE TO HOSPITAL. PER EMS PT TALKING AT HOME, BUT EN ROUTE BECAME MORE LETHARGIC. Source: patient, family Exam Limitations: clinical condition History of Present Illness Date Seen by Provider: Sep 19, 2018 Time Seen by Provider: 05:55 Initial Comments Here with report of difficulty breathing that started earlier this morning. Initial O2 sat by EMS was 47 percent. Patient was placed on nonrebreather and the CPAP and did have improvement in his O2 saturations to the 90s. He was quite lethargic for EMS after their arrival and continues until now. Family reports that he was sick this morning. No report of vomiting. Does have history of COPD. He does not smoke. Timing/Duration: this morning Severity: moderate, severe Prior Episodes/Possible Cause: occasional episodes Associated Symptoms: cough, shortness of breath, wheezing Allergies and Home Medications Allergies Coded Allergies: cephalexin (Verified Allergy, Unknown, 04/10/16) Home Medications Albuterol Sulfate 2.5 Mg/3 Ml Vial.neb, 2.5 MG IH TID PRN for SHORTNESS OF BREATH, (Reported) Amlodipine Besylate 5 Mg Tablet, 5 MG PO DAILY, (Reported) Amoxicillin/Potassium Clav 1 Each Tablet, 1 EACH PO BID WITH MEALS Prescribed by: DANITA TEE on 02/01/18 0739 Atorvastatin Calcium 10 Mg Tablet, 10 MG PO DAILY, (Reported) Budesonide/Formoterol Fumarate 10.2 Gm Hfa.aer.ad, 2 PUFF INH BID, (Reported) Celecoxib 200 Mg Capsule, 200 MG PO BID, (Reported) Cyanocobalamin/Cobamamide 1 Each Tab.subl, 5,000 MCG SL DAILY, (Reported) Duloxetine HCl 60 Mg Capsule.dr, 60 MG PO BID, (Reported) Furosemide 40 Mg Tablet, 40 MG PO BID, (Reported) Lisinopril 10 Mg Tablet, 10 MG PO DAILY, (Reported) Metformin HCl 500 Mg Tab.er.24h, 500 MG PO BID, (Reported) Multivitamin/Iron/Folic Acid 1 Each Tablet, 1 EACH PO DAILY, (Reported) Oxycodone HCl/Acetaminophen 1 Each Tablet, 1 TAB PO TID PRN for PAIN-MODERATE, ( Reported) Pregabalin 150 Mg Capsule, 150 MG PO BID, (Reported) Ranitidine HCl 150 Mg Tablet, 150 MG PO BID, (Reported) Trazodone HCl 100 Mg Tablet, 100 MG PO HS, (Reported) Patient Home Medication List Home Medication List Reviewed: Yes Review of Systems Review of Systems Constitutional: see HPI, fever, weakness Respiratory: cough, short of breath, wheezing Cardiovascular: No chest pain; edema Gastrointestinal: No abdominal pain, No nausea, No vomiting Skin: no symptoms reported Psychiatric/Neurological: Weakness, Other (altered mental status) Unable to complete review of systems due to altered mental status and clinical condition Past Rkrgzsm-Mliqae-Onzirb Hx Past Med/Social Hx: Reviewed Nursing Past Med/Soc Hx Patient Social History Alcohol Use: Denies Use Recreational Drug Use: No (NONE X30 YRS) Smoking Status: Former Smoker Type Used: Cigarettes Former Smoker, Quit: Sep 18, 2015 Recent Foreign Travel: No Contact w/Someone Who Travel: No Recent Infectious Disease Expo: No Recent Hopitalizations: No Immunizations Up To Date Tetanus Booster (TDap): Unknown Date of Pneumonia Vaccine: Sep 04, 2012 Date of Influenza Vaccine: Oct 16, 2017 Seasonal Allergies Seasonal Allergies: Yes Past Medical History Surgeries: Yes (FATTY TUMOR REMOVED FROM TOP OF HEAD. CARDIAC CATH X 2--NO INTERVENTION) Cardiac, Vasectomy Respiratory: Yes Pneumonia, Chronic Bronchitis, Sleep Apnea, COPD, Emphysema Currently Using CPAP: Yes (WAS WEARING AT HOME PER EMS) Currently Using BIPAP: Yes Cardiac: Yes (CHF, CARDIAC CATH X 2--NO INTERVENTION, pulmonary hypertension) Chronic Edema/Swelling, Coronary Artery Disease, High Cholesterol, Hypertension , Valvular Heart Disease Neurological: No Reproductive Disorders: No Sexually Transmitted Disease: No HIV/AIDS: No Genitourinary: Yes (RENAL INSUFFICIENCY) Gastrointestinal: Yes Colitis Musculoskeletal: Yes ("BULGING DISCS" ; CHRONIC "JERKING" OF MUSCLES) Degenerate Disk Disease, Osteoporosis, Arthritis, Back Injury, Chronic Back Pain , Fractures, Spasms Endocrine: Yes (MORBID OBESITY) Diabetes, Non-Insulin dep HEENT: Yes (NEAR SIGHTED) Loss of Vision: Bilateral Hearing Impairment: Denies Cancer: No Psychosocial: Yes Anxiety, Depression Integumentary: No Blood Disorders: No Adverse Reaction/Blood Tranf: No Family Medical History Reviewed Nursing Family Hx Arthritis 19 MOTHER Cardiovascular disease 19 MOTHER FH: lung cancer 19 FATHER Hypertension 19 MOTHER No Family History of: AIDS Abdominal aortic aneurysm [place]'s disease Alcoholism Alzheimer's disease Aphasia Asthma Cancer of mouth Cataracts Colon cancer Completed stroke Congenital disease Congenital heart disease Coronary thrombosis Cystic fibrosis Deafness or hearing loss Dementia Diabetes mellitus Drug abuse Dysphasia Fibrocystic disease of breast Gastroenteritis Glaucoma Headache disorder Hypercholesterolemia Infertility Kidney disease Myocardial infarction Neoplasm Not obtainable due to adoption Osteoporosis Parkinson's disease Prostate cancer Psychosocial problem Respiratory disorder Seizure disorder Severe allergy Thyroid disease Tuberculosis Visual disorder Heart Disease, Cancer, Hypertension Physical Exam Vital Signs - First Documented 09/19/18 09/19/18 05:39 06:00 Temp 99.4 Pulse 88 Resp 26 B/P (MAP) 129/87 (101) Pulse Ox 99 O2 Delivery NIV/CPAP O2 Flow Rate 50.00 FiO2 100 Capillary Refill : Less Than 3 Seconds Height: 5'10.00" Weight: 350lbs. 3.0oz. [id number]; 42.18 BMI Method:Estimated General Appearance: WD/WN, no apparent distress, obese HEENT: PERRL/EOMI, pharynx normal Neck: full range of motion, supple Respiratory: crackles, wheezing, expiration, other (evaluated while on BiPAP) Cardiovascular: regular rate, rhythm, no murmur Gastrointestinal: non tender, soft Extremities: non-tender, normal inspection Neurologic/Psychiatric: other (very drowsy but answers name and place. Does follow simple commands.) Skin: normal color, warm/dry Focused Exam Lactate Level 09/19/18 05:45: Lactic Acid Level 0.60 Lactic Acid Level Laboratory Tests Test 09/19/18 05:45 Lactic Acid Level 0.60 MMOL/L (0.50-2.00) Procedures/Interventions Date of ETT Placement: Sep 19, 2018 Time of ETT Placement: 08:00 Intubation Method: orotracheal Tube Size: 7.5 Medications: Etomidate, Fentanyl, Rocuronium, Succinylcholine, Versed Positive End Tide CO2: Yes Breath Sounds after Intubation: bilateral-equal Intubation Complications: no complications Post Intubation Xray: Yes Rather difficult intubation due to body habitus and swollen cords. Ultimately intubated via video scope with bougie assistance and tube over bougie exchange. 7.5 ET tube placed. Postintubation sedation with 5 mg of Versed and 100 g of fentanyl followed by 50 mg of rocuronium. We will initiate propofol drip. Progress/Results/Core Measures Suspected Sepsis Recent Fever Within 48 Hours: No Infection Criteria Present: Suspected New Infection New/Unexplained Altered Menta: Yes Sepsis Screen: No Definite Risk SIRS Temperature:99.4 Pulse: 88 Respiratory Rate: 26 Laboratory Tests 09/19/18 05:45: White Blood Count 12.2H Blood Pressure 129 /87 Mean: 101 09/19/18 05:45: Lactic Acid Level 0.60 Laboratory Tests 09/19/18 05:45: Creatinine 1.20, INR Comment 0.9, Platelet Count 238, Total Bilirubin 0.2 Results/Orders Lab Results Laboratory Tests Test 09/19/18 05:45 09/19/18 06:00 09/19/18 07:03 09/19/18 08:00 Range/Units White Blood Count 12.2 H 4.3-11.0 10^3/uL Red Blood Count 3.89 L 4.35-5.85 10^6/uL Hemoglobin 11.4 L 13.3-17.7 G/DL Hematocrit 38 L 40-54 % Mean Corpuscular Volume 96 80-99 FL Mean Corpuscular Hemoglobin 29 25-34 PG Mean Corpuscular Hemoglobin Concent 30 L 32-36 G/DL Red Cell Distribution Width 15.0 H 10.0-14.5 % Platelet Count 238 130-400 10^3/uL Mean Platelet Volume 8.9 7.4-10.4 FL Neutrophils (%) (Auto) 87 H 42-75 % Lymphocytes (%) (Auto) 6 L 12-44 % Monocytes (%) (Auto) 7 0-12 % Eosinophils (%) (Auto) 0 0-10 % Basophils (%) (Auto) 0 0-10 % Neutrophils # (Auto) 10.6 H 1.8-7.8 X 10^3 Lymphocytes # (Auto) 0.7 L 1.0-4.0 X 10^3 Monocytes # (Auto) 0.9 0.0-1.0 X 10^3 Eosinophils # (Auto) 0.0 0.0-0.3 10^3/uL Basophils # (Auto) 0.0 0.0-0.1 10^3/uL Neutrophils % (Manual) 79 % Lymphocytes % (Manual) 1 % Monocytes % (Manual) 7 % Eosinophils % (Manual) 2 % Metamyelocytes % 2 % Band Neutrophils 9 % Blood Morphology Comment NORMAL Prothrombin Time 12.5 12.2-14.7 SEC INR Comment 0.9 0.8-1.4 Activated Partial Thromboplast Time 35 24-35 SEC Sodium Level 139 135-145 MMOL/L Potassium Level 5.1 H 3.6-5.0 MMOL/L Chloride Level 93 L 98-107 MMOL/L Carbon Dioxide Level 36 H 21-32 MMOL/L Anion Gap 10 5-14 MMOL/L Blood Urea Nitrogen 31 H 7-18 MG/DL Creatinine 1.20 0.60-1.30 MG/DL Estimat Glomerular Filtration Rate > 60 BUN/Creatinine Ratio 26 Glucose Level 146 H 70-105 MG/DL Lactic Acid Level 0.60 0.50-2.00 MMOL/L Calcium Level 9.4 8.5-10.1 MG/DL Corrected Calcium 9.6 8.5-10.1 MG/DL Total Bilirubin 0.2 0.1-1.0 MG/DL Aspartate Amino Transf (AST/SGOT) 20 5-34 U/L Alanine Aminotransferase (ALT/SGPT) 17 0-55 U/L Alkaline Phosphatase 149 H 40-136 U/L B-Type Natriuretic Peptide 56.1 <100.0 PG/ML Total Protein 7.8 6.4-8.2 GM/DL Albumin 3.7 3.2-4.5 GM/DL Blood Gas Puncture Site RT RADIAL RR Blood Gas Patient Temperature 99.4 99.4 Arterial Blood pH 7.21 *L 7.20 *L 7.37-7.43 Arterial Blood Partial Pressure CO2 105 *H 114 *H 35-45 MMHG Arterial Blood Partial Pressure O2 85 91 79-93 MMHG Arterial Blood HCO3 40 H 42 *H 23-27 MMOL/L Arterial Blood Total CO2 43.1 H 45.4 H 21.0-31.0 MMOL/L Arterial Blood Oxygen Saturation 96 96 94-100 % Arterial Blood Base Excess 12.1 H 13.8 H -2.5-2.5 MMOL/L Neil Test YES-POS YES-POS Blood Gas Ventilator Setting NO NO Blood Gas Inspired Oxygen 60% BIPAP 70% Urine Color YELLOW Urine Clarity CLEAR Urine pH 5 5-9 Urine Specific [place] 1.025 H 1.016-1.022 Urine Protein 3+ H NEGATIVE Urine Glucose (UA) NEGATIVE NEGATIVE Urine Ketones NEGATIVE NEGATIVE Urine Nitrite NEGATIVE NEGATIVE Urine Bilirubin NEGATIVE NEGATIVE Urine Urobilinogen NORMAL NORMAL MG/DL Urine Leukocyte Esterase NEGATIVE NEGATIVE Urine RBC (Auto) 1+ H NEGATIVE Urine RBC 2-5 H /HPF Urine WBC RARE /HPF Urine Squamous Epithelial Cells RARE /HPF Urine Crystals NONE /LPF Urine Bacteria TRACE /HPF Urine Casts PRESENT /LPF Urine Hyaline Casts 5-10 H /LPF Urine Mucus NEGATIVE /LPF Urine Culture Indicated CULTURE PENDING Micro Results Microbiology 09/19/18 Influenza Types A,B Antigen (JENNY) - Final, Complete My Orders Orders - VALENTE DE LEON MD Saline Lock/Iv-Start (09/19/18 06:33) Ns Iv 1000 Ml (Sodium Chloride 0.9%) (09/19/18 06:33) Piperacillin Sodium/Tazobactam (Zosyn Vi (09/19/18 06:45) Arterial Blood Gas (09/19/18 06:39) BNP (09/19/18 06:39) Propofol Drip (Icu) (Diprivan Drip (Icu) (09/19/18 08:06) Chest 1 View, Ap/Pa Only (09/19/18 08:14) Catheter(Urinary) Insert & Ass 03,15 (09/19/18 08:14) Ng Tube Insert & Assessment (09/19/18 08:14) Propofol Drip (Icu) (Diprivan Drip (Icu) (09/19/18 08:15) Sedation Communication Q48H (09/19/18 08:15) Ns Iv 1000 Ml (Sodium Chloride 0.9%) (09/19/18 08:45) Arterial Blood Gas (09/19/18 08:45) Medications Given in ED Current Medications Medications Dose Ordered Sig/Sebastian Route Start Time Stop Time Status Last Admin Dose Admin Methylprednisolone Sodium Succinate 125 mg ONCE ONCE IVP 09/19/18 05:45 09/19/18 05:47 DC 09/19/18 05:51 125 MG Piperacillin Sod/ Tazobactam Sod 4.5 gm/Sodium Chloride 100 ml @ 200 mls/hr ONCE ONCE IV 09/19/18 06:45 09/19/18 07:14 DC 09/19/18 06:49 200 MLS/HR Sodium Chloride 1,000 ml @ 0 mls/hr Q0M ONCE IV 09/19/18 06:33 09/19/18 06:35 DC 09/19/18 06:40 999 MLS/HR Vital Signs/I&O 09/19/18 09/19/18 09/19/18 09/19/18 05:39 05:39 06:00 08:19 Temp 99.4 Pulse 88 75 Resp 26 24 13 B/P (MAP) 129/87 (101) 120/61 Pulse Ox 99 94 94 O2 Delivery NIV/CPAP NIV CPAP Mechanical Ventilator O2 Flow Rate 50.00 FiO2 100 09/19/18 08:33 Pulse 75 Resp 13 B/P (MAP) 120/61 Pulse Ox 94 O2 Delivery Mechanical Ventilator Capillary Refill : Less Than 3 Seconds Blood Pressure Mean: 101 Progress Note : Progress Note Seen and evaluated. Initially seen by Dr. Albright and orders place him for which I agree. Patient currently on BiPAP. IV, labs, ABG, chest x-ray, Solu- Medrol 125 mg IV and continuous hour-long breathing treatment initiated while on BiPAP. Monitor patient. 0630: ABG results show markedly elevation of CO2. On reevaluating the patient, he is more alert currently and states he is feeling better. Breathing treatment continues. Patient does have findings consistent with right lower lobe pneumonia and possible left lower lobe pneumonia. We will go ahead and initiate treatment with Zosyn 4.5 g IV. Normal saline 1 L bolus ordered. We will reevaluate CO2 level at 7 a.m. to determine need for intubation. Monitor patient. 0730: ABG shows worsening CO2 level with increased now to 114. I did discuss with the patient and family regarding intubation and my concerns about impending complete respiratory failure as patient is showing signs of significant respiratory failure currently. They agree to intubation. 0800: Intubated and initiated on vent. Difficult intubation do to body habitus and anatomical features with deep structures and swollen vocal cords. Initially on vent at rate of 16 with tidal volume of 500 and PEEP of 5. O2 sats initially in the upper 90s but the then declined. Then adjusted to rate of 16, tidal volume of 500 and PEEP of 10 with FiO2 being titrated between 70 and 100 percent currently to keep sats greater than 92 percent. I did discuss the case with Dr. Tee at 0817 and he accepts patient for admission. I did rediscuss the case with Dr. Forrest 0 830 and he accepts patient in consult. Chest x-ray read from radiology does not report basilar infiltrate that I believe is there on the right side. Patient clinically has findings consistent with pneumonia and we will treat as such. 0849: Blood pressure noted to be 85/40 which may be related to propofol. We will initiate third liter of normal saline. [place] body weight is 82 kg. The 30 mL/kg dosing for this would be under 3 L. He will have 3 L here. 0859: Blood pressure 117/70 with change in propofol drip down to 25. Still with adequate sedation. I attest a focused exam at this time. Diagnostic Imaging Diagonstic Imaging: Xray Plain Films/CT/US/NM/MRI: chest Comments [facility] [place] [place] NAME: KEMAR JERONIMO [facility] REC#: [id number] PT STATUS: REG ER : 1955 PHYSICIAN: LACY DAVIS MD ADMIT DATE: 09/19/18/ER Draft Date of Exam:09/19/18 CHEST 1 VIEW, AP/PA ONLY INDICATION: Respiratory failure. Time of exam: 6:06 AM Comparison is made with prior study of 08/14/2018. Heart is enlarged. There is central congestion. There are some basilar interstitial changes present, similar to prior exam. No parenchyma consolidation is seen. No effusion or pneumothorax is identified. IMPRESSION: Cardiomegaly and central congestion with mild interstitial changes. This is likely owing to congestive changes. No effusion or pneumothorax is seen. Dictated on workstation # [id number] Dict: 09/19/18 0813 Trans: 09/19/18 0820 JORGE LUIS [id number] Interpreted by: MARGARITA SEGURA MD Electronically signed by: Diagonstic Imaging: Xray Plain Films/CT/US/NM/MRI: chest Comments [facility] [place] [place] NAME: KEMAR JERONIMO [facility] REC#: [id number] PT STATUS: REG ER : 1955 PHYSICIAN: VALENTE DE LEON MD ADMIT DATE: 09/19/18/ER Draft Date of Exam:09/19/18 CHEST 1 VIEW, AP/PA ONLY INDICATION: Post intubation. TIME OF EXAM: 8:21 AM Comparison is made with prior exam earlier same day. FINDINGS: Endotracheal tube has been placed. The tip is well above the balwinder. NG tube has also been placed and passes into the stomach. Heart is enlarged. There are some central congestive changes. There appears to be some infiltrate or atelectasis in the left base. No pneumothorax is seen. IMPRESSION: Satisfactory endotracheal tube placement. Dictated on workstation # [id number] Dict: 09/19/18 0833 Trans: 09/19/18 0840 [id number] Interpreted by: MARGARITA SEGURA MD Electronically signed by: Departure Communication (Admissions) Time/Spoke to Admitting Phy: 08:17 Time/Spoke to Consulting Phy: 08:30 Impression Primary Impression: Respiratory failure Qualified Codes: J96.01 - Acute respiratory failure with hypoxia; J96.02 - Acute respiratory failure with hypercapnia Additional Impression: Right lower lobe pneumonia Qualified Codes: J18.1 - Lobar pneumonia, unspecified organism Disposition: ADMITTED INPATIENT Condition: Critical Admissions Decision to Admit Reason: Admit from ER (General) Decision to Admit/Date: Sep 19, 2018 Time/Decision to Admit Time: 08:17 Departure-Patient Inst. Referrals: DANITA TEE DO (PCP/Family) Primary Care Physician VALENTE DE LEON MD Sep 19, 2018 06:39
[2018-09-19] MEDS ORDERED: PIPERACILLIN SODIUM/TAZOBACTAM 4.5 GM in NS (IVPB) 100 ML IV ONE (06:45)
[2018-09-19 07:12] LABS: ABG BASE EXCESS 13.8 MMOL/L (-2.5-2.5); ABG OXYGEN SATURATION 96 % (94-100); ABG PO2 91 MMHG (79-93); ABG TCO2 45.4 MMOL/L (21.0-31.0)
[2018-09-19 07:16] LABS: ABG PCO2 114 MMHG (35-45)
[2018-09-19 07:17] LABS: ALLENS TEST YES-POS; INSPIRED O2 70%; PATIENT TEMP 99.4; VENTILATOR NO
--- NOTE | 2018-09-19 07:20 | NUR ---
SPOKE W PT AND FAMILY CO NEED FOR INTUBATION 0748 ETOMIDATE 20MG IV GIVEN SL FLUSHED 0748 SUCCS 100MG IV GIVEN SL FLUSHED 0749 PT DIFFICULT INTUBATION ATTEMPTED W 8.0 TUBE NOT SUCCESSFUL 0756 100MG SUCCS GIVEN ORDERED 0757 VERSED 5MG IV GIVEN. SATS 98% PER AMBUBAG 0759 PT INTUBATED W 7.5 ET TUBE, 23CM AT LIPS, APPROPRIATED COLOR CHANGE, GOOD AIR MOVEMENT PER AUSCULTATION 0803 FENTLY 100MG IV GIVEN 0804 MCKEON #18 INSERTED ORDERED 0805 MARTHA 50MG GIVEN IV 0807 OG #18 INSERTED W 400CC OF GREEN LIQUID RETURN 0819 DIPROVAN STARTED AT 30MCG/KG/MIN
[2018-09-19] MEDS ORDERED: PROPOFOL DRIP (ICU) 100 ML IV ONE (08:06)
[2018-09-19 08:12] LABS: BILIRUBIN,URINE NEGATIVE (NEGATIVE); CLARITY,URINE CLEAR; COLOR,URINE YELLOW; GLUCOSE, URINE (UA) NEGATIVE (NEGATIVE); KETONES,URINE NEGATIVE (NEGATIVE); LEUKOCYTE ESTERASE ,URINE NEGATIVE (NEGATIVE); NITRITE,URINE NEGATIVE (NEGATIVE); PH,URINE 5 (5-9); PROTEIN,URINE 3+ (NEGATIVE); UROBILINOGEN,URINE NORMAL (NORMAL)
[2018-09-19] MEDS: PROPOFOL DRIP (ICU) 100 ML IV SCH ×4 (08:19→21:18)
[2018-09-19] MEDS: NS IV 1000 ML 1,000 ML IV SCH ×4 (08:19→17:41)
--- NOTE | 2018-09-19 08:21 | Diagnostic Imaging Report ---
INDICATION: Respiratory failure. Time of exam: 6:06 AM Comparison is made with prior study of 08/14/2018. Heart is enlarged. There is central congestion. There are some basilar interstitial changes present, similar to prior exam. No parenchyma consolidation is seen. No effusion or pneumothorax is identified. IMPRESSION: Cardiomegaly and central congestion with mild interstitial changes. This is likely owing to congestive changes. No effusion or pneumothorax is seen. Dictated by: Dictated on workstation # [id number]
[2018-09-19 08:29] LABS: BACTERIA,URINE TRACE /HPF; SQUAMOUS EPITHELIAL CELL,UR RARE /HPF; WBC,URINE RARE /HPF
--- NOTE | 2018-09-19 08:41 | Diagnostic Imaging Report ---
INDICATION: Post intubation. TIME OF EXAM: 8:21 AM Comparison is made with prior exam earlier same day. FINDINGS: Endotracheal tube has been placed. The tip is well above the balwinder. NG tube has also been placed and passes into the stomach. Heart is enlarged. There are some central congestive changes. There appears to be some infiltrate or atelectasis in the left base. No pneumothorax is seen. IMPRESSION: Satisfactory endotracheal tube placement. Dictated by: Dictated on workstation # [id number]
[2018-09-19] MEDS ORDERED: ROCURONIUM 10 MG/ML 5 ML SYRINGE IV ONE (08:59)
[2018-09-19] MEDS ORDERED: MIDAZOLAM 5 MG/5 ML (VERSED) VIAL IJ ONE (08:59)
[2018-09-19] MEDS ORDERED: ETOMIDATE IV SOLN 20 MG/10 ML VIAL IV ONE (08:59)
[2018-09-19] MEDS ORDERED: fentaNYL INJECTION 100 MCG/2 ML AMP INJ ONE (08:59)
[2018-09-19] MEDS ORDERED: SUCCINYLCHOLINE INJ 100 MG/5 ML SYR INJ ONE (08:59)
[2018-09-19] MEDS ORDERED: NS IV 1000 ML 1,000 ML IV SCH (09:15)
[2018-09-19] MEDS ORDERED: VANCOMYCIN INJECTION 2,500 MG in NS IV 500 ML 500 ML IV NR (10:12)
--- NOTE | 2018-09-19 10:15 | NUR ---
PTD VANCOMYCIN LABS: SCR 1.2 PLAN: WE WILL GIVE VANCOMYCIN 2,500MG IV LOADING DOSE NOW, THEN START VANCOMYCIN 2,000MG IV Q 12 HOURS, PLAN FOR TROUGH ON 09/20 @ 2100 AND ORDER IS CURRENTLY FOR X 3 DAYS. ALSO ORDERED AN MRSA NASAL SWAB TO EVALUATE MRSA STATUS.
[2018-09-19] MEDS ORDERED: PIPERACILLIN/TAZO 4.5 GM/NS 100 ML IV NR ×2 (10:30)
[2018-09-19] MEDS ORDERED: HYDR-3812 PO (10:33)
--- NOTE | 2018-09-19 10:55 | Pulmonary Consultation ---
History of Present Illness History of Present Illness Date of Consultation 09/19/18 10:49 Time Seen by Provider: 10:49 Date of Admission History of Present Illness 62yo morbidity obese with hx of severe COPD presented to ED via EMS secondary to worsening SOB. Upon ED admission he was found to be hypoxic with sp02 around 47%. He was placed on BiPaP however he continue to decline with worsening respiratory acidosis on ABG and pt also became lethargic. Pt was intubated in ED with a size 7.5 ET tube. I am consulted for ICU management Allergies and Home Medications Allergies Coded Allergies: cephalexin (Verified Allergy, Unknown, 04/10/16) Home Medications Albuterol Sulfate 2.5 Mg/3 Ml Vial.neb, 2.5 MG IH TID PRN for SHORTNESS OF BREATH, (Reported) Amlodipine Besylate 5 Mg Tablet, 5 MG PO DAILY, (Reported) Atorvastatin Calcium 10 Mg Tablet, 10 MG PO DAILY, (Reported) Budesonide/Formoterol Fumarate 10.2 Gm Hfa.aer.ad, 2 PUFF INH BID, (Reported) Celecoxib 200 Mg Capsule, 200 MG PO BID, (Reported) Cyanocobalamin/Cobamamide 1 Each Tab.subl, 5,000 MCG SL DAILY, (Reported) Duloxetine HCl 60 Mg Capsule.dr, 60 MG PO BID, (Reported) Furosemide 40 Mg Tablet, 40 MG PO BID, (Reported) Hydrocodone/Acetaminophen 1 Each Tablet, 1 TAB PO TID PRN for PAIN-MODERATE, ( Reported) Lisinopril 10 Mg Tablet, 10 MG PO DAILY, (Reported) Metformin HCl 500 Mg Tab.er.24h, 500 MG PO BID, (Reported) Multivitamin/Iron/Folic Acid 1 Each Tablet, 1 TAB PO DAILY, (Reported) Pregabalin 150 Mg Capsule, 150 MG PO BID, (Reported) Ranitidine HCl 150 Mg Tablet, 150 MG PO BID, (Reported) Trazodone HCl 100 Mg Tablet, 100 MG PO HS, (Reported) Past Kbxazsx-Addhlx-Dmvtpa Hx Past Med/Social Hx: Reviewed Nursing Past Med/Soc Hx Patient Social History Alcohol Use: Denies Use Recreational Drug Use: No (NONE X30 YRS) Smoking Status: Former Smoker Type Used: Cigarettes Former Smoker, Quit: Sep 18, 2015 Recent Foreign Travel: No Contact w/Someone Who Travel: No Recent Infectious Disease Expo: No Recent Hopitalizations: No Immunizations Up To Date Tetanus Booster (TDap): Unknown Date of Pneumonia Vaccine: Sep 04, 2012 Date of Influenza Vaccine: Oct 16, 2017 Seasonal Allergies Seasonal Allergies: Yes Past Medical History Surgeries: Yes (FATTY TUMOR REMOVED FROM TOP OF HEAD. CARDIAC CATH X 2--NO INTERVENTION) Cardiac, Vasectomy Respiratory: Yes Pneumonia, Chronic Bronchitis, Sleep Apnea, COPD, Emphysema Currently Using CPAP: Yes (WAS WEARING AT HOME PER EMS) Currently Using BIPAP: Yes Cardiac: Yes (CHF, CARDIAC CATH X 2--NO INTERVENTION, pulmonary hypertension) Chronic Edema/Swelling, Coronary Artery Disease, High Cholesterol, Hypertension , Valvular Heart Disease Neurological: No Reproductive Disorders: No Sexually Transmitted Disease: No HIV/AIDS: No Genitourinary: Yes (RENAL INSUFFICIENCY) Gastrointestinal: Yes Colitis Musculoskeletal: Yes ("BULGING DISCS" ; CHRONIC "JERKING" OF MUSCLES) Degenerate Disk Disease, Osteoporosis, Arthritis, Back Injury, Chronic Back Pain , Fractures, Spasms Endocrine: Yes (MORBID OBESITY) Diabetes, Non-Insulin dep HEENT: Yes (NEAR SIGHTED) Loss of Vision: Bilateral Hearing Impairment: Denies Cancer: No Psychosocial: Yes Anxiety, Depression Integumentary: No Blood Disorders: No Adverse Reaction/Blood Tranf: No Family Medical History Reviewed Nursing Family Hx Arthritis 19 MOTHER Cardiovascular disease 19 MOTHER FH: lung cancer 19 FATHER Hypertension 19 MOTHER No Family History of: AIDS Abdominal aortic aneurysm [place]'s disease Alcoholism Alzheimer's disease Aphasia Asthma Cancer of mouth Cataracts Colon cancer Completed stroke Congenital disease Congenital heart disease Coronary thrombosis Cystic fibrosis Deafness or hearing loss Dementia Diabetes mellitus Drug abuse Dysphasia Fibrocystic disease of breast Gastroenteritis Glaucoma Headache disorder Hypercholesterolemia Infertility Kidney disease Myocardial infarction Neoplasm Not obtainable due to adoption Osteoporosis Parkinson's disease Prostate cancer Psychosocial problem Respiratory disorder Seizure disorder Severe allergy Thyroid disease Tuberculosis Visual disorder Heart Disease, Cancer, Hypertension Sepsis Event Evaluation Height, Weight, BMI Height: 5'10.00" Weight: 350lbs. 3.0oz. 158.037864pu; 42.18 BMI Method:Estimated Exam Exam Vital Signs Date Time Temp Pulse Resp B/P (MAP) Pulse Ox O2 Delivery O2 Flow Rate FiO2 09/19/18 09:32 80 09/19/18 09:20 99.0 71 26 113/83 (93) 94 Mechanical Ventilator 80.00 09/19/18 09:05 80 09/19/18 08:51 72 12 84/40 (55) 99 09/19/18 08:48 73 16 99 100 09/19/18 08:33 75 13 120/61 94 Mechanical Ventilator 09/19/18 08:33 88 100 09/19/18 08:19 75 13 120/61 94 Mechanical Ventilator 09/19/18 08:18 86 70 09/19/18 08:05 16 88 60 09/19/18 06:00 24 94 50.00 09/19/18 05:39 99 NIV CPAP 100 09/19/18 05:39 99.4 88 26 129/87 (101) NIV/CPAP Height & Weight Height: 5'10.00" Weight: 350lbs. 3.0oz. 158.739607hq; 42.18 BMI Method:Estimated Capillary Refill: Less Than 3 Seconds Gastrointestinal: non tender, soft Results Lab Laboratory Tests 09/19/18 05:45 Assessment/Plan Assessment/Plan Acute on chronic respiratory failure -Continue ventilator therapy -Increase peep to 12 - pt is currently on 100% Fi02 -repeat ABG -Pt has copious amounts of sputum and mucous plugs will do bedside bronchoscopy Bilateral pneumonia with ARDS -Continue Vanco, Zosyn -Check MRSA swab -check urine strep legionella ag Poor IV access -Will place central line Morbid obesity with OHS and TERE Hyperkalemia JHON STEPHENSON DO Sep 19, 2018 10:55
[2018-09-19] MEDS ORDERED: CHOL10007 PO (11:00)
[2018-09-19] MEDS ORDERED: VITA-203 PO (11:01)
--- NOTE | 2018-09-19 11:02 | NUR ---
UNABLE TO SPEAK WITH THE PATIENT REGARDING MEDICATIONS AT THIS TIME. I CALLED DR. TEE'S OFFICE FOR A LIST, THEY FAXED ME THE DISCHARGE MEDICATION LIST FROM FROM 08-16-18. I COMPARED THAT WITH THE EXT MED HX. THE EXT MED HX SHOWS METFORMIN ER 500MG LAST BEING FILLED #180 04-16-18 SO IT IS PAST DUE FOR REFILL, IT IS NOT ADDRESSED ON THE LIST FROM SO IT IS ASSUMED THE PATIENT IS NOT CURRENTLY TAKING IT, I REMOVED IT FROM THE MED REC AT THIS TIME. CELEBREX WAS STOPPED AT DISCHARGE FROM ON 08-16-18 HOWEVER IT WAS REFILLED ON 09-11-18 AT [facility] THEREFORE I LEFT IT ON THE MED REC AT THIS TIME. THE LIST FROM HAS HYDROCODONE Q4H PRN HOWEVER IT HAS BEEN FILLED TID PRN SO THAT IS HOW I REVIEWED IT ON THE MED REC. ALBUTEROL NEBULIZER SOLUTION AND SYMBICORT 160 WERE BOTH REPORTED ON THE LIST FROM AND ON FILE FROM THE PATIENTS PREVIOUS ADMISSION HERE HOWEVER I WAS UNABLE TO VERIFY THE LAST FILL DATE WITH THE EXT MED HX. NEBULIZER SOLUTION OFTEN COMES FROM A DIFFERENCE SOURCE OTHER THAN RETAIL PHARMACIES AND IT IS POSSIBLE THE PATIENT GETS SAMPLES OF SYMBICORT. OTC MEDS: VITAMIN D3 VITAMIN B-12 MTV VITAMIN A
[2018-09-19] MEDS ORDERED: ENOXAPARIN 40 MG/0.4 ML (LOVENOX) SYR SC SCH (11:15)
--- OUTSIDE RECORDS SUMMARY | 2018-09-19 11:15 | XMS REPORT | Clinical Summary ---
Author Author [facility] Organization [facility] Address Unknown Phone Unavailable Care Team Providers Care Lieutenant Colonel Name Role Phone Ricky [place] PCP Source Comments Some departments are not documenting in the electronic medical record. If you do not see the information that you expected, contact Release of Information in the Health Information Management department at [phone] for further assistance in locating additional records.[facility] Allergies No Known Allergies Medications End Date [...] units tablet Units by mouth daily. Active atpvnlis-hnm-SD-lycopen-l Take 1 tablet 0 utein (CENTRUM SILVER [...] Taken Vital Sign Reading 08/16/2018 4:42 AM [facility] [employer] Blood Pressure 119/68 08/16/2018 8:18 AM [employer] Pulse 75 08/16/2018 4:42 AM [employer] Temperature 36.7 C (98 F) - Respiratory Rate - 08/16/2018 8:18 AM [employer] Oxygen Saturation 99% - Inhaled Oxygen - Concentration 08/15/2018 10:00 AM [employer] Weight 151.8 kg (334 lb 10.5 oz) 08/15/2018 7:30 AM [employer] Height 177.8 cm (5' 10") 08/15/2018 10:00 AM [employer] Body Mass Index 48.02 Plan of Treatment Health Maintenance Due Date Last Done Comments HEPATITIS C SCREENING 1954 PHYSICAL (COMPREHENSIVE) 1961 EXAM HIV SCREENING 1969 DTAP/TDAP VACCINES (1 - 1972 Tdap) COLORECTAL CANCER 2004 SCREENING SHINGLES RECOMBINANT 2004 VACCINE (1 of 2) INFLUENZA VACCINE 04/04/2018 Procedures Comments Procedure Name Priority Date/Time Associated Diagnosis PHOSPHORUS STAT 08/16/2018 4:45 AM [employer] MAGNESIUM STAT 08/16/2018 4:45 AM [employer]ACE [employer] BASIC METABOLIC PANEL STAT 08/16/2018 4:45 AM H[employer]ACE [employer] CBC STAT 08/16/2018 4:45 AM [employer]ACE [employer]TER CHEST SINGLE VIEW Routine 08/16/2018 3:15 AM [employer]ACE [employer] POC GLUCOSE 08/15/2018 11:59 AM [employer]ACE [employer]TER 2-D + DOPPLER DELAMR 08/15/2018 ECHOCARDIOGRAM 9:11 AM [employer] POC GLUCOSE 08/15/2018 7:34 AM [employer] HEMOGLOBIN A1C STAT 08/15/2018 6:30 AM H[employer]ACE [employer] BNP (B-TYPE NATRIURETIC STAT 08/15/2018 PEPTI) 6:30 AM [employer]ACE [employer] COMPREHENSIVE METABOLIC STAT 08/15/2018 PANEL 6:30 AM [employer]ACE [employer] CBC STAT 08/15/2018 6:30 AM H[employer]ACE [employer] CONSULT IV THERAPY TEAM Routine 08/15/2018 6:16 AM [employer] BLOOD GASES, ARTERIAL Routine 08/15/2018 6:00 AM [employer] ECG 12-LEAD STAT 08/15/2018 5:24 AM H[employer]ACE [employer]TER GENERAL RAD CHEST Routine 08/14/2018 Diagnosis unknown EXTERNAL IMAGING 4:05 PM [employer] GRAM STAIN 08/14/2018 3:50 PM [employer] CULTURE-WOUND/TISSUE/FLUI Routine 08/14/2018 D(AEROBIC 3:50 PM HORSE [employer]ACE [employer]TER ONLY)W/SENSITIVITY VRE SCREEN Routine 08/14/2018 3:50 PM [employer] MRSA SCREEN Routine 08/14/2018 3:50 PM [employer] TELEMETRY STRIPS-SCAN 08/14/2018 12:00 AM H[employer] ECG-SCAN 08/14/2018 12:00 AM H[employer]ACE [employer] from Last 3 Months Results * CBC (08/16/2018 4:45 AM HORSE [employer]ACE [employer]TER) Only the most recent of 2 results [...] MAIN LAB Specimen Blood Performing Organization Address City/[facility] Phone Number MAIN LAB [address] [place] [address] * PHOSPHORUS (08/16/2018 4:45 AM H[employer]) Phosphorus 4.3Comment: NOTE NEW REFERENCE 2.0 - 4.5 MG/DL [facility] MAIN LAB RANGES Specimen Blood Performing Organization Address City/[facility] Phone Number MAIN LAB [address] [place] [address] * MAGNESIUM (08/16/2018 4:45 AM H[employer]) Magnesium 2.1 1.6 - 2.6 mg/dL MAIN LAB Specimen Blood Performing Organization Address [facility] Phone Number MAIN LAB [address] [place] [address] * BASIC METABOLIC PANEL (08/16/2018 4:45 AM H[employer]) Sodium 139 137 - 147 MMOL/L [facility] [...] for questions. Specimen Blood Performing Organization Address [facility] Phone Number MAIN LAB [address] [place] [phone] * CHEST SINGLE VIEW (08/16/2018 3:15 AM H[employer]SE [employer]ACE ST[employer]TER) Impressions Performed At Mild cardiomegaly with improvement [...] Interface, Radiant Results - 08/16/2018 1:56 PM [employer] CHEST SINGLE VIEW Indication: Male, 62 years [...] RESULTS * POC GLUCOSE (08/15/2018 11:59 AM H[employer]) Only the most recent of 2 results within the time period is included. Glucose, POC 100 70 - 100 MG/DL [facility] MAIN LAB Performing Organization Address City/State/Zipcode Phone Number MAIN LAB [address] [place] [address] * 2-D + DOPPLER ECHOCARDIOGRAM (08/15/2018 9:11 AM H[employer]) IVS 1.31 0.6 - 1.0 cm OTHER [...] [place] OTHER OUTSIDE LAB CV ECHO PV [facility] ANALYST DANIELLE Ricci- Defnity OTHER OUTSIDE LAB FS [...] 34 OTHER OUTSIDE LAB Cardiology Ultrasound Siemens [id number] OTHER OUTSIDE LAB Machine Left Ventricle Mass [...] Organization Address City/[facility]/Zipcode Phone Number OTHER OUTSIDE LAB * BNP (B-TYPE NATRIURETIC PEPTI) (08/15/2018 6:30 AM H[employer]SE [employer]) B Type Natriuretic 38.0 0 - 100 PG/ML [facility] MAIN LAB Peptide Specimen Blood Performing Organization Address City/[facility] Phone Number [facility] MAIN [facility] [address] [place] [address] * HEMOGLOBIN A1C (08/15/2018 6:30 AM H[employer]) Hemoglobin A1C 6.1 (H) 4.0 - 6.0 % [facility] MAIN LAB Comment: The ADA recommends that most patients with type 1 and type 2 diabetes maintain an A1c level <7%. Specimen Blood Performing Organization Address [facility] Phone Number [facility] MAIN [facility] [address] [place] [address] * COMPREHENSIVE METABOLIC PANEL (08/15/2018 6:30 AM H[employer]) Sodium 133 (L) 137 - 147 MMOL/L [...] for questions. Specimen Blood Performing Organization Address City/[facility]/Zipcode Phone Number MAIN LAB [address] [place] [address] * BLOOD GASES, ARTERIAL (08/15/2018 6:00 AM H[employer]) pH-Arterial 7.36 7.35 - 7.45 MAIN LAB pCO2-Arterial 67 (H) 35 - 45 MMHG MAIN LAB pO2-Arterial 57 (L) 80 - 100 MM[facility] MAIN LAB Base Excess-Arterial 9.3 MMOL/L MAIN LAB O2 Sat-Arterial 88.8 (L) 95 - 99 % MAIN LAB Wdryrxfoblu-DXF-Oaw 32.8 (H) 21 - 28 MMOL/L MAIN LAB Specimen Blood, arterial - Blood Performing Organization Address [facility] Phone Number MAIN LAB [address] [place] [address] * GENERAL RAD CHEST EXTERNAL IMAGING (08/14/2018 4:05 PM H[employer]) Narrative Performed At This order has been auto finalized and does not contain a result. * VRE SCREEN (08/14/2018 3:50 PM H[employer]SE [employer]) Battery Name VRE SCREEN MAIN LAB Specimen Description PERIRECTAL SWAB MAIN LAB Special Requests NONE MAIN LAB Culture NO VRE ISOLATED MAIN LAB Report Status FINAL MAIN LAB 08/16/2018 Specimen Perirectal Swab Performing Organization Address City/[facility]/Zipcode Phone Number MAIN LAB [address] [place] [address] * MRSA SCREEN (08/14/2018 3:50 PM H[employer]SE [employer]) Battery Name MRSA SCREEN MAIN LAB Specimen Description NASAL MAIN LAB Special Requests NONE MAIN LAB Culture NO MRSA ISOLATED MAIN LAB Report Status FINAL MAIN LAB 08/16/2018 Specimen Nasal Performing Organization Address City/[facility] Phone Number MAIN LAB [address] [place] [address] * GRAM STAIN (08/14/2018 3:50 PM H[employer]SE [employer]ACE [employer]TER) Battery Name GRAM STAIN MAIN LAB Specimen Description SWAB MAIN LAB FACE BURN WOUND Special Requests NONE MAIN LAB Gram Stain NO NEUTROPHILS SEEN MAIN LAB NO ORGANISMS SEEN Report Status FINAL MAIN LAB 08/14/2018 Specimen Swab Performing Organization Address [facility] Phone Number MAIN LAB [address] [place] [address] * CULTURE-WOUND/TISSUE/FLUID(AEROBIC ONLY)W/SENSITIVITY (08/14/2018 3:50 PM H[employer] ) Battery Name ROUTINE CULTURE MAIN LAB [...] Four colonies acinetobacter species Performing Organization Address City/[facility] Phone Number MAIN LAB [address] [place] [address] * TELEMETRY STRIPS-SCAN (08/14/2018 12:00 AM HORSE [employer]ACE [employer]TER) Narrative Performed At Ordered by an unspecified provider. * ECG-SCAN (08/14/2018 12:00 AM HORSE [employer]ACE [employer]TER) Narrative Performed At Ordered by an unspecified provider. from Last 3 Months Insurance Payer Benefit Subscriber ID Type Phone Address Plan / Group MEDICARE MEDICARE xxxxxxxxxx Medicare PART A AND B (Home) [place] [address] Advance Directives Patient has advance care planning documents, and code status on file. For more information, please contact: [facility] [address] [place] [address] Date Inactivated Comments Code Status Date Activated 08/16/2018 3:45 PM Full Code 08/14/2018 3:46 PM Provider has discussed Code Status No, discussion not w/Patient or Family? necessary based on Dx
--- OUTSIDE RECORDS SUMMARY | 2018-09-19 11:15 | XMS REPORT | Encounter Summary ---
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 MERCHANDISING ASSOCIATE) Battery Name MRSA SCREEN MAIN LAB Specimen Description NASAL MAIN LAB Special Requests NONE MAIN LAB Culture NO MRSA ISOLATED MAIN LAB Report Status FINAL MAIN LAB 08/16/2018 Specimen Nasal Performing Organization Address [facility] Phone Number MAIN LAB [address] [place] [address] * TELEMETRY STRIPS-SCAN (08/14/2018 12:00 AM REPLENISHMENT MERCHANDISING ASSOCIATE) Narrative Performed At Ordered by an unspecified provider. * ECG-SCAN (08/14/2018 12:00 AM REPLENISHMENT MERCHANDISING ASSOCIATE) Narrative Performed At Ordered by an unspecified [...] hours from all sources., 08/16/2018 11:40 AM REPLENISHMENT MERCHANDISING ASSOCIATE 650 mg acetaminophen (TYLENOL) tablet 650 mg Given 650 mg, Oral, EVERY 4 HOURS PRN, Starting Mon08/14/18 at 1546, Until Bonny 08/16/18 at 1540, Pain non-opioid: may be used alone or in combination with opioid analgesia, Temp > 38.5 C, Acetaminophen not to exceed 4g per 24 hours from all sources., 650 mg Given 08/16/2018 4:51 AM REPLENISHMENT MERCHANDISING ASSOCIATE 650 mg Given 08/15/2018 11:59 PM REPLENISHMENT MERCHANDISING ASSOCIATE 08/16/2018 8:10 AM REPLENISHMENT MERCHANDISING ASSOCIATE 2.5 mg albuterol 0.5% (PROVENTIL; VENTOLIN) Given nebulizer solution 2.5 mg 2.5 mg, Inhalation, RT EVERY 4 HOURS AND PRN, First dose on Mon08/14/18 at 1600, Until Discontinued, ADMINISTERED BY RT, 2.5 mg Given 08/16/2018 4:49 AM REPLENISHMENT MERCHANDISING ASSOCIATE 2.5 mg Given 08/16/2018 12:26 AM REPLENISHMENT MERCHANDISING ASSOCIATE 08/16/2018 7:45 AM REPLENISHMENT MERCHANDISING ASSOCIATE 5 mg amLODIPine (NORVASC) tablet 5 mg Given 5 mg, Oral, DAILY, First dose on Mon08/16/18 at 0900, Until Discontinued, NURSING: Please educate patient and document: Do not give with grapefruit juice., 08/15/2018 8:18 PM REPLENISHMENT MERCHANDISING ASSOCIATE 10 mg atorvastatin (LIPITOR) tablet 10 mg Given 10 mg, Oral, AT BEDTIME DAILY, First dose on Mon08/15/18 at 2100, Until Discontinued 08/15/2018 8:05 PM REPLENISHMENT MERCHANDISING ASSOCIATE bacitracin topical ointment Given Topical, TWICE DAILY, First dose on Mon08/14/18 at 2100, Until Discontinued, Apply to face anderson., Given 08/15/2018 9:10 AM REPLENISHMENT MERCHANDISING ASSOCIATE Given 08/14/2018 9:19 PM REPLENISHMENT MERCHANDISING ASSOCIATE 08/14/2018 6:18 PM REPLENISHMENT MERCHANDISING ASSOCIATE BACITRACIN ZINC 500 UNIT/GRAM TP OINT Given (Cabinet Override) NOW, 1 dose, Mon08/14/18 at 1745, Created by cabinet override, Created by cabinet override, 08/16/2018 10:22 AM REPLENISHMENT MERCHANDISING ASSOCIATE BACITRACIN ZINC 500 UNIT/GRAM TP OINT Given (Cabinet Override) NOW, 1 dose, Mon08/16/18 at 1030, Created by cabinet override, Created by cabinet override, 08/16/2018 8:18 AM REPLENISHMENT MERCHANDISING ASSOCIATE 2 puffs budesonide/formoterol (SYMBICORT HFA) Given 160/4.5 mcg inhalation 2 puff 2 puff, Inhalation, RT TWICE DAILY, First dose on Mon08/15/18 at 1800, Until Discontinued, When administered by RT, will be per RT policy., 2 puffs Given 08/15/2018 8:01 PM REPLENISHMENT MERCHANDISING ASSOCIATE 08/16/2018 7:44 AM REPLENISHMENT MERCHANDISING ASSOCIATE 200 mg celecoxib (CELEBREX) capsule 200 mg Given 200 mg, Oral, TWICE DAILY, First dose on Mon08/15/18 at 1415, Until Discontinued 200 mg Given 08/15/2018 8:18 PM REPLENISHMENT MERCHANDISING ASSOCIATE 200 mg Given 08/15/2018 1:32 PM REPLENISHMENT MERCHANDISING ASSOCIATE 08/16/2018 7:44 AM REPLENISHMENT MERCHANDISING ASSOCIATE [address] (CYMBALTA) capsule 60 mg Given 60 mg, Oral, TWICE DAILY, First dose on Mon08/14/18 at 2100, Until Discontinued 60 mg Given 08/15/2018 8:18 PM REPLENISHMENT MERCHANDISING ASSOCIATE 60 mg Given 08/15/2018 9:09 AM REPLENISHMENT MERCHANDISING ASSOCIATE 08/16/2018 7:43 AM REPLENISHMENT MERCHANDISING ASSOCIATE 40 mg Abdomen:RLQ enoxaparin (LOVENOX) syringe 40 [...] mg Abdominal Tissue Given 08/15/2018 8:17 PM REPLENISHMENT MERCHANDISING ASSOCIATE 40 mg Abdominal Tissue Given 08/15/2018 9:11 AM REPLENISHMENT MERCHANDISING ASSOCIATE 08/16/2018 7:44 AM REPLENISHMENT MERCHANDISING ASSOCIATE 20 mg famotidine (PEPCID) tablet 20 mg Given 20 mg, Oral, TWICE DAILY, First dose on Mon08/15/18 at 1415, Until Discontinued 20 mg Given 08/15/2018 8:18 PM REPLENISHMENT MERCHANDISING ASSOCIATE 20 mg Given 08/15/2018 1:32 PM REPLENISHMENT MERCHANDISING ASSOCIATE 08/14/2018 6:16 PM REPLENISHMENT MERCHANDISING ASSOCIATE 50 mcg fentaNYL citrate PF (SUBLIMAZE) Given injection 25-200 mcg 25-200 mcg, Intravenous, EVERY 15 MIN PRN, Starting Mon08/14/18 at 1546, Until Mon08/16/18 at 1540, Other..., Procedural Pain, Slow IV push over 3-5 minutes. Max total not to exceed 200 mcg , 50 mcg Given 08/14/2018 5:46 PM REPLENISHMENT MERCHANDISING ASSOCIATE 08/16/2018 7:46 AM REPLENISHMENT MERCHANDISING ASSOCIATE 60 mg furosemide (LASIX) injection 60 mg Given 60 mg, Intravenous, EVERY 12 HOURS, 2 doses, First dose on Mon08/15/18 at 2200, Last dose on Mon08/16/18 at 0900, PROTECT FROM LIGHT, 60 mg Given 08/15/2018 10:05 PM REPLENISHMENT MERCHANDISING ASSOCIATE 08/15/2018 6:56 AM REPLENISHMENT MERCHANDISING ASSOCIATE 80 mg furosemide (LASIX) injection 80 mg Given 80 mg, Intravenous, EVERY 12 HOURS, 4 doses, First dose on Mon08/15/18 at 0600, Last dose on Mon08/16/18 at 2100, PROTECT FROM LIGHT, furosemide (LASIX) tablet 40 mg 40 mg, Oral, TWICE DAILY, First dose on Mon08/17/18 at 0900, Until Discontinued 08/16/2018 8:10 AM REPLENISHMENT MERCHANDISING ASSOCIATE 0.5 mg ipratropium bromide (ATROVENT) 0.02 % Given nebulizer solution 0.5 mg 0.5 mg, Inhalation, RT EVERY 4 HOURS AND PRN, First dose on Mon08/14/18 at 1600, Until Discontinued, ADMINISTERED BY RT, 0.5 mg Given 08/16/2018 4:49 AM REPLENISHMENT MERCHANDISING ASSOCIATE 0.5 mg Given 08/16/2018 12:26 AM REPLENISHMENT MERCHANDISING ASSOCIATE 08/16/2018 7:45 AM REPLENISHMENT MERCHANDISING ASSOCIATE 10 mg lisinopril (PRINIVIL; ZESTRIL) tablet 10 Given mg 10 mg, Oral, DAILY, First dose on Mon08/15/18 at 0900, Until Discontinued 10 mg Given 08/15/2018 9:09 AM REPLENISHMENT MERCHANDISING ASSOCIATE 08/16/2018 10:25 AM REPLENISHMENT MERCHANDISING ASSOCIATE mupirocin (BACTROBAN) 2 % topical Given ointment Topical, TWICE DAILY, First dose on Mon08/15/18 at 0900, Until Discontinued, Apply to bilateral nares with cotton tipped applicator BID, Given 08/15/2018 8:19 PM REPLENISHMENT MERCHANDISING ASSOCIATE Given 08/15/2018 9:09 AM REPLENISHMENT MERCHANDISING ASSOCIATE 08/16/2018 10:23 AM REPLENISHMENT MERCHANDISING ASSOCIATE nystatin (MYCOSTATIN) topical cream Given Topical, TWICE DAILY, First dose on Mon08/15/18 at 1100, Until Discontinued, Apply to the underneath of right breast, Given 08/15/2018 8:19 PM REPLENISHMENT MERCHANDISING ASSOCIATE Given 08/15/2018 12:00 PM REPLENISHMENT MERCHANDISING ASSOCIATE 08/14/2018 4:58 PM REPLENISHMENT MERCHANDISING ASSOCIATE 5 mg oxyCODONE (ROXICODONE, OXY-IR) tablet 5 Given mg 5 mg, Oral, EVERY 4 HOURS PRN, Starting Mon08/14/18 at 1546, Until Mon08/14/18 at 2031, Pain PO 08/16/2018 10:22 AM REPLENISHMENT MERCHANDISING ASSOCIATE 10 mg oxyCODONE (ROXICODONE, OXY-IR) tablet Given 5-10 mg 5-10 mg, Oral, EVERY 4 HOURS PRN, Starting Mon08/14/18 at 2030, Until Mon08/16/18 at 1540, Pain PO 10 mg Given 08/16/2018 4:51 AM REPLENISHMENT MERCHANDISING ASSOCIATE 5 mg Given 08/15/2018 11:59 PM REPLENISHMENT MERCHANDISING ASSOCIATE 08/16/2018 10:24 AM REPLENISHMENT MERCHANDISING ASSOCIATE 2 sprays oxymetazoline (AFRIN) 0.05 % nasal [...] continued., 2 sprays Given 08/15/2018 8:19 PM REPLENISHMENT MERCHANDISING ASSOCIATE 2 sprays Given 08/15/2018 7:30 AM REPLENISHMENT MERCHANDISING ASSOCIATE 08/15/2018 9:12 AM REPLENISHMENT MERCHANDISING ASSOCIATE 2 Diluted mL perflutren lipid microspheres (DEFINITY) Given injection 1-20 Diluted mL 1-20 Diluted mL, Intravenous, ONCE, 1 dose, Mon08/15/18 at 0915, NOTE: This is a HIGH ALERT Medication., MAC Procedure Area Only - Medications 08/16/2018 7:45 AM REPLENISHMENT MERCHANDISING ASSOCIATE 150 mg pregabalin (LYRICA) capsule 150 mg Given 150 mg, Oral, TWICE DAILY, First dose on Mon08/15/18 at 1415, Until Discontinued 150 mg Given 08/15/2018 8:17 PM REPLENISHMENT MERCHANDISING ASSOCIATE 150 mg Given 08/15/2018 1:32 PM REPLENISHMENT MERCHANDISING ASSOCIATE 08/16/2018 7:44 AM REPLENISHMENT MERCHANDISING ASSOCIATE 2 tablets senna/docusate (SENOKOT-S) tablet 2 Given tablet 2 tablet, Oral, TWICE DAILY, First dose on Mon08/14/18 at 2100, Until Discontinued, Hold for loose stools, 2 tablets Given 08/15/2018 8:19 PM REPLENISHMENT MERCHANDISING ASSOCIATE 2 tablets Given 08/15/2018 9:09 AM REPLENISHMENT MERCHANDISING ASSOCIATE 08/15/2018 3:53 PM REPLENISHMENT MERCHANDISING ASSOCIATE 1 spray sodium chloride (SEA MIST) 0.65 % nasal Given spray 1-2 spray 1-2 spray, Each Nostril, NEEDED, Starting Mon08/15/18 at 0700, Until Mon08/16/18 at 1540, Congestion 08/15/2018 8:18 PM REPLENISHMENT MERCHANDISING ASSOCIATE 100 mg traZODone (DESYREL) tablet 100 mg Given 100 mg, Oral, AT BEDTIME DAILY, First dose on Mon08/14/18 at 2100, Until Discontinued 100 mg Given 08/14/2018 9:18 PM REPLENISHMENT MERCHANDISING ASSOCIATE in this encounter
--- OUTSIDE RECORDS SUMMARY | 2018-09-19 11:16 | XMS REPORT | Encounter Summary ---
Author Author [facility] Organization [facility] Address Unknown Phone Unavailable Care Team Providers Care Sampling Expert Name Role Phone Ricky Cleveland PCP Encounter Details Care Team Description Date Type Department 08/14/2018 Hospital [facility] Encounter Hospital Radiology [facility] [address] [place] [id number] Social History Date Tobacco Use Types [...] 0 ZESTRIL) 10 mg tablet mouth daily. fzoclyjj-nej-GO-lycopen-l Take 1 tablet 0 utein (CENTRUM SILVER [...] 08/14/2018 Diagnosis unknown EXTERNAL IMAGING 4:05 PM CPC in this encounter Visit Diagnoses Not on filein this encounter
--- NOTE | 2018-09-19 12:10 | History & Physicial ---
History of Present Illness History of Present Illness Reason for visit/HPI Patient seen in ICU. Patient on ventilator and unresponsive. Patient at 430 a.m. became short of breath. EMS took patient to the emergency room. Patient's by mouth CO2 over 100. Patient became lethargic. Patient intubated. Patient has severe COPD. Patient obese. Patient has history of back pain. Date of Admission Sep 19, 2018 at 08:47 Time Seen by a Provider: 12:05 I consulted on this patient on 09/19/18 12:05 Attending Physician Ricky Tee DO Admitting Physician Ricky Tee DO Consult Allergies and Home Medications Allergies Coded Allergies: cephalexin (Verified Allergy, Unknown, 04/10/16) Home Medications Albuterol Sulfate 2.5 Mg/3 Ml Vial.neb, 2.5 MG IH TID PRN for SHORTNESS OF BREATH, (Reported) Amlodipine Besylate 5 Mg Tablet, 5 MG PO DAILY, (Reported) Atorvastatin Calcium 10 Mg Tablet, 10 MG PO DAILY, (Reported) Budesonide/Formoterol Fumarate 10.2 Gm Hfa.aer.ad, 2 PUFF INH BID, (Reported) Celecoxib 200 Mg Capsule, 200 MG PO BID, (Reported) Cholecalciferol (Vitamin D3) 1,000 Unit Capsule, 1,000 UNIT PO DAILY, (Reported) Cyanocobalamin/Cobamamide 1 Each Tab.subl, 5,000 MCG SL DAILY, (Reported) Duloxetine HCl 60 Mg Capsule.dr, 60 MG PO BID, (Reported) Furosemide 40 Mg Tablet, 40 MG PO BID, (Reported) Hydrocodone/Acetaminophen 1 Each Tablet, 1 TAB PO TID PRN for PAIN-MODERATE, ( Reported) Lisinopril 10 Mg Tablet, 10 MG PO DAILY, (Reported) Multivitamin/Iron/Folic Acid 1 Each Tablet, 1 TAB PO DAILY, (Reported) Pregabalin 150 Mg Capsule, 150 MG PO BID, (Reported) Ranitidine HCl 150 Mg Tablet, 150 MG PO BID, (Reported) Trazodone HCl 100 Mg Tablet, 100 MG PO HS, (Reported) Vitamin A Palmitate 10,000 Unit Capsule, 10,000 UNIT PO DAILY, (Reported) Patient Home Medication List Home Medication List Reviewed: No Past Ehcmdog-Cpqpch-Ctnszy Hx Patient Social History Marrital Status: Alcohol Use: Denies Use Recreational Drug Use: No (NONE X30 YRS) Smoking Status: Former Smoker Former Smoker, Quit: Sep 18, 2015 Type Used: Cigarettes Recent Foreign Travel: No Contact w/other who traveled: No Recent Hopitalizations: No Recent Infectious Disease Expo: No Immunizations Up To Date Tetanus Booster (TDap): Unknown Date of Pneumonia Vaccine: Sep 04, 2012 Date of Influenza Vaccine: Oct 16, 2017 Seasonal Allergies Seasonal Allergies: Yes Surgeries Yes (FATTY TUMOR REMOVED FROM TOP OF HEAD. CARDIAC CATH X 2--NO INTERVENTION) Cardiac, Vasectomy Respiratory Yes COPD, Emphysema, Sleep Apnea Currently Using CPAP: Yes (WAS WEARING AT HOME PER EMS) Currently Using BIPAP: Yes Cardiovascular Yes (CHF, CARDIAC CATH X 2--NO INTERVENTION, pulmonary hypertension) Chronic Edema/Swelling, Coronary Artery Disease, High Cholesterol, Hypertension , Valvular Heart Disease Neurological No Reproductive System Hx Reproductive Disorders: No Sexually Transmitted Disease: No HIV/AIDS: No Genitourinary Yes (RENAL INSUFFICIENCY) Gastrointestinal Yes Colitis Musculoskeletal Yes ("BULGING DISCS" ; CHRONIC "JERKING" OF MUSCLES) Degenerate Disk Disease, Osteoporosis, Arthritis, Back Injury, Chronic Back Pain , Fractures, Spasms Endocrine History of Endocrine Disorders: Yes (MORBID OBESITY) Endocrine Disorders: Diabetes, Non-Insulin dep HEENT History of HEENT Disorders: Yes (NEAR SIGHTED) Loss of Vision: Bilateral Hearing Impairment: Denies Cancer No Psychosocial History of Psychiatric Problem: Yes Behavioral Health Disorders: Anxiety, Depression Integumentary History of Skin or Integumenta: No Blood Transfusions History of Blood Disorders: No Adverse Reaction to a Blood Tr: No Family Medical History Significant Family History: Heart Disease, Cancer, Hypertension Family Hx: Arthritis 19 MOTHER Cardiovascular disease 19 MOTHER FH: lung cancer 19 FATHER Hypertension 19 MOTHER No Family History of: AIDS Abdominal aortic aneurysm Alfonzo's disease Alcoholism Alzheimer's disease Aphasia Asthma Cancer of mouth Cataracts Colon cancer Completed stroke Congenital disease Congenital heart disease Coronary thrombosis Cystic fibrosis Deafness or hearing loss Dementia Diabetes mellitus Drug abuse Dysphasia Fibrocystic disease of breast Gastroenteritis Glaucoma Headache disorder Hypercholesterolemia Infertility Kidney disease Myocardial infarction Neoplasm Not obtainable due to adoption Osteoporosis Parkinson's disease Prostate cancer Psychosocial problem Respiratory disorder Seizure disorder Severe allergy Thyroid disease Tuberculosis Visual disorder Review of Systems Constitutional: other (Patient on vent) EENTM: no symptoms reported Respiratory: short of breath, wheezing Cardiovascular: no symptoms reported Gastrointestinal: no symptoms reported Genitourinary: no symptoms reported Physical Exam Vital Signs Vital Signs - First Documented 09/19/18 09/19/18 05:39 06:00 Temp 99.4 Pulse 88 Resp 26 B/P (MAP) 129/87 (101) Pulse Ox 99 O2 Delivery NIV/CPAP O2 Flow Rate 50.00 FiO2 100 Capillary Refill : Less Than 3 Seconds Height, Weight, BMI Height: 5'10.00" Weight: 350lbs. 3.0oz. 158.057754gx; 42.18 BMI Method:Estimated General Appearance: Obese, Other (Patient on ventilator) Neck: Normal Inspection Respiratory: Decreased Breath Sounds Cardiovascular: Regular Rate, Rhythm, No Murmur Gastrointestinal: Non Tender, Soft Assessment/Plan Assessment and Plan Acute respiratory failure with hypoxia. Hypercapnia. Severe COPD. Coronary artery disease. hyPretension Admission Diagnosis Admission Status: Inpatient Order (span 2 midnights) Reason for Inpatient Admission: Acute respiratory failure with hypoxemia. Hypercapnia. Patient on ventilator. Severe COPD. Coronary artery disease. Pneumonia Clinical Quality Measures DVT/VTE Risk/Contraindication: Risk Factor Score Per Nursin RFS Level Per Nursing on Admit: 4+=Very High RICKY TEE DO Sep 19, 2018 12:10
[2018-09-19 12:13] LABS: ABG BASE EXCESS 11.5 MMOL/L (-2.5-2.5); ABG OXYGEN SATURATION 100 % (94-100); ABG PO2 182 MMHG (79-93); ABG TCO2 42.7 MMOL/L (21.0-31.0)
[2018-09-19 12:14] LABS: ABG PCO2 105 MMHG (35-45)
[2018-09-19 12:15] LABS: ALLENS TEST YES-POS; INSPIRED O2 100%; VENTILATOR YES
[2018-09-19] MEDS ORDERED: FUROSEMIDE 40 MG/4 ML INJ (LASIX) IVP NR (12:34)
[2018-09-19] MEDS ORDERED: MIDAZOLAM 2 MG/2 ML (VERSED) VIAL ONE (13:03)
[2018-09-19] MEDS ORDERED: fentaNYL INJECTION 100 MCG/2 ML AMP ONE ×2 (13:03→13:21)
[2018-09-19] MEDS ORDERED: MIDAZOLAM 2 MG/2 ML (VERSED) VIAL IM ONE ×2 (13:15→13:45)
[2018-09-19] MEDS: fentaNYL INJECTION 100 MCG/2 ML AMP IVP PRN (13:21)
[2018-09-19] MEDS ORDERED: LIDOCAINE PF 1% 2 ML VIAL (OR ONLY) IJ ONE (13:54)
[2018-09-19] MEDS: methylPREDNISolone 125 MG (Solu-MEDROL) VIAL IVP SCH ×3 (14:01→23:36)
[2018-09-19] MEDS: PANTOPRAZOLE 40 MG (PROTONIX) VIAL IV SCH (14:01)
--- NOTE | 2018-09-19 14:01 | Pulmonary Procedures ---
Pulmonary Procedures Date of Procedure Date of Service: Sep 19, 2018 Lumen: triple (US guided) Central Line Procedure: betadine prep, sterile drapes applied, sterile dressing applied Position: internal jugular (R) Anesthesia: Lidocaine Volume Anesthetic (ccs): 5 Complications: none Post Position: sutured, good blood return, position confirmed w/ CXR JHON STEPHENSON DO Sep 19, 2018 14:01
--- NOTE | 2018-09-19 14:05 | Pulmonary Procedures ---
Pulmonary Procedures Date of Procedure Date of Service: Sep 19, 2018 Bronch Bronchoscopy with bilateral washes were used to lavage thick copious amounts of sputum from lungs. Multiple passes were needed to remove thick mucous plugs from bilateral airways. Preop DX pneumonia, copious amounts of sputum with plugging Postop DX: same Complications: none After informed consent obtained and formal time out pt was sedated using propofol and Versed. Bronchoscope was advanced through the ET tube. 1% lidocaine was used to anesthetize vocal cords, epiglottis, balwinder, and left/ right main stem bronchus. An anatomical tour was undertaken down to the segmental bronchi bilaterally. No endobronchial lesions noted. Bilateral washes were used to lavage thick copious amounts of sputum from lungs. Multiple passes were needed to remove thick mucous plugs from bilateral airways. Pt tolerated procedure well. No complications noted. Stat CXR is pending. JHON STEPHENSON DO Sep 19, 2018 14:05
--- NOTE | 2018-09-19 14:23 | Diagnostic Imaging Report ---
INDICATION: Central line placement. TIME OF EXAM: 01:58 p.m. Correlation is made with prior exam earlier the same day. Right IJ line has tip overlying the SVC. ET tube and NG tube remain in place. There has been some improvement in congestive changes with overall improved aeration of both lungs. No significant effusion or pneumothorax is seen. IMPRESSION: 1. Right IJ central line placement, without evidence of pneumothorax. 2. Overall improved aeration of both lungs with improved congestive changes. Dictated by: Dictated on workstation # [id number]
[2018-09-19] MEDS: RT-ALBUTEROL/IPRATROPIUM 3 ML (DUONEB) VIAL INH SCH ×2 (14:32→21:30)
[2018-09-19 15:24] LABS: BF OTHER CELLS 0 %; BODY FLUID APPEARENCE MKD CLDY; BODY FLUID COLOR RED; BODY FLUID SOURCE OTHER; LYMPHOCYTES,BODY FLUID 5 %
[2018-09-19] MEDS ORDERED: RT-ALBUTEROL/IPRATROPIUM 3 ML (DUONEB) VIAL INH PRN (16:00)
[2018-09-19 16:07] LABS: ABG OXYGEN SATURATION 100 % (94-100); ABG PO2 267 MMHG (79-93); ABG TCO2 40.2 MMOL/L (21.0-31.0)
--- NOTE | 2018-09-19 16:07 | Anesthesia-Procedure Note ---
Procedures/Interventions Procedure Start/Stop/Diagnosis Date of Procedure: Sep 19, 2018 Start Time: 15:30 Referring Physician: Adriane Stop Time: 15:47 Arterial Line Arterial Line Catheter: 20G Type: Radial (left) Location: Left Procedure: prepped, draped in sterile fashion, 1% lidocaine used to numb region , good wave-form was obtained, patient tolerated procedure well, no immediate complications, post procedure area cleaned, post procedure dressing applied ( wrist restraints placed bilaterally and reported off to TEODORA Vaz) CELINA GARCIA CRNA Sep 19, 2018 16:06
[2018-09-19 16:13] LABS: ABG PCO2 95 MMHG (35-45); ABG PH 7.23 (7.37-7.43)
[2018-09-19 16:14] LABS: INSPIRED O2 100%; PATIENT TEMP 100.2; VENTILATOR YES
[2018-09-19] MEDS: PIPERACILLIN/TAZO 4.5 GM/NS 100 ML IV SCH ×2 (17:34)
[2018-09-19] MEDS: ENOXAPARIN 60 MG/0.6 ML (LOVENOX) SYR SC SCH (21:18)
[2018-09-19] MEDS: VANCOMYCIN 2000 MG/NS 500 ML IVPB IV SCH ×2 (21:23)
[2018-09-20] VITALS (34 sets, daily range): BP systolic 112–183; BP diastolic 46–75
[2018-09-20] MEDS: PROPOFOL DRIP (ICU) 100 ML IV SCH ×10 (00:25→22:24)
[2018-09-20] MEDS: PIPERACILLIN/TAZO 4.5 GM/NS 100 ML IV SCH ×6 (00:25→17:05)
[2018-09-20] MEDS: RT-ALBUTEROL/IPRATROPIUM 3 ML (DUONEB) VIAL INH SCH ×6 (01:48→23:04)
[2018-09-20] MEDS: NS IV 1000 ML 1,000 ML IV SCH ×3 (02:09→17:05)
[2018-09-20 03:47] LABS: ABG BASE EXCESS 9.7 MMOL/L (-2.5-2.5); ABG OXYGEN SATURATION 94 % (94-100); ABG PO2 75 MMHG (79-93); ABG TCO2 38.3 MMOL/L (21.0-31.0); BASOPHILS % (AUTO) 0 % (0-10); EOSINOPHILS % (AUTO) 0 % (0-10); HEMATOCRIT 33 % (40-54); LYMPHOCYTES # (AUTO) 0.4 X 10^3 (1.0-4.0); LYMPHOCYTES % (AUTO) 3 % (12-44); MEAN CORPUSCULAR HEMOGLOBIN 29 PG (25-34); MEAN CORPUSCULAR HGB CONC 30 G/DL (32-36); MEAN CORPUSCULAR VOLUME 97 FL (80-99); MEAN PLATELET VOLUME 9.2 FL (7.4-10.4); MONOCYTES # (AUTO) 0.3 X 10^3 (0.0-1.0); MONOCYTES % (AUTO) 2 % (0-12); NEUTROPHILS # (AUTO) 13.4 X 10^3 (1.8-7.8); NEUTROPHILS % (AUTO) 95 % (42-75); PLATELET COUNT 222 10^3/uL (130-400); RED BLOOD COUNT 3.43 10^6/uL (4.35-5.85); RED CELL DISTRIBUTION WIDTH 15.3 % (10.0-14.5); WHITE BLOOD COUNT 14.1 10^3/uL (4.3-11.0)
[2018-09-20 03:49] LABS: ALLENS TEST ARTLINE; INSPIRED O2 65%; VENTILATOR YES
[2018-09-20 03:51] LABS: ABG PCO2 74 MMHG (35-45); ABG PH 7.31 (7.37-7.43)
[2018-09-20 04:10] LABS: ALBUMIN 3.1 GM/DL (3.2-4.5); BILIRUBIN,TOTAL 0.2 MG/DL (0.1-1.0); CALCIUM 9.3 MG/DL (8.5-10.1); CREATININE SERUM 1.55 MG/DL (0.60-1.30); MAGNESIUM 2.1 MG/DL (1.8-2.4); PHOSPHORUS 2.8 MG/DL (2.3-4.7); POTASSIUM 5.1 MMOL/L (3.6-5.0); TOTAL PROTEIN 6.7 GM/DL (6.4-8.2)
--- NOTE | 2018-09-20 05:31 | Pulmonary Progress Note ---
Subjective Time Seen by a Provider: 05:36 Subjective/Events-last exam Pt is sedated on vent. Sepsis Event Evaluation Height, Weight, BMI Height: 5'10.00" Weight: 350lbs. 3.0oz. 158.616341dj; 42.18 BMI Method:Estimated Focused Exam Lactate Level 09/19/18 05:45: Lactic Acid Level 0.60 Exam Exam Vital Signs Date Time Temp Pulse Resp B/P (MAP) Pulse Ox O2 Delivery O2 Flow Rate FiO2 09/20/18 04:00 76 23 153/57 (89) 93 Mechanical Ventilator 65.00 09/20/18 03:53 79 25 92 65 09/20/18 03:30 99.0 Mechanical Ventilator 65.00 09/20/18 03:00 81 23 131/54 (79) 92 Mechanical Ventilator 65.00 09/20/18 02:04 82 24 139/54 (82) 94 Mechanical Ventilator 65.00 09/20/18 02:00 77 27 137/54 (81) 95 Mechanical Ventilator 85.00 09/20/18 01:48 79 24 95 85 09/20/18 01:00 85 09/20/18 01:00 85 24 125/52 (76) 94 Mechanical Ventilator 85.00 09/20/18 00:25 119/50 09/20/18 00:00 80 23 114/46 (68) 93 Mechanical Ventilator 85.00 09/19/18 23:30 86 34 128/62 (84) 90 Mechanical Ventilator 85.00 09/19/18 23:16 99.5 Mechanical Ventilator 65.00 09/19/18 23:08 87 24 95 75 09/19/18 23:00 77 28 128/53 (78) 87 Mechanical Ventilator 75.00 09/19/18 22:00 80 24 147/56 (86) 95 Mechanical Ventilator 75.00 09/19/18 21:32 Mechanical Ventilator 75.00 09/19/18 21:30 79 24 95 85 09/19/18 21:18 124/52 09/19/18 21:00 79 24 106/48 (67) 94 Mechanical Ventilator 85.00 09/19/18 20:00 75 21 133/58 (83) 92 Mechanical Ventilator 85.00 09/19/18 19:58 100.1 Mechanical Ventilator 85.00 09/19/18 19:00 82 26 118/49 (72) 94 Mechanical Ventilator 85.00 09/19/18 19:00 82 09/19/18 18:25 74 24 92 85 09/19/18 18:07 31 147/72 94 Mechanical Ventilator 09/19/18 18:00 78 32 138/71 (93) 95 Mechanical Ventilator 85.00 09/19/18 17:05 Mechanical Ventilator 85.00 09/19/18 17:00 74 24 157/75 (102) 92 Mechanical Ventilator 70.00 09/19/18 16:26 Mechanical Ventilator 70.00 09/19/18 16:20 71 27 98 80 09/19/18 16:00 73 22 129/62 (84) 98 Mechanical Ventilator 100.00 09/19/18 16:00 100.2 09/19/18 15:41 99.2 09/19/18 15:33 95 Mechanical Ventilator 100 09/19/18 15:00 64 15 114/60 (78) 95 Mechanical Ventilator 100.00 09/19/18 14:38 59 106/60 09/19/18 14:32 59 26 94 80 09/19/18 14:00 60 12 101/60 (74) 95 Mechanical Ventilator 100.00 09/19/18 13:00 77 09/19/18 13:00 68 28 152/77 (102) 97 Mechanical Ventilator 100.00 09/19/18 12:49 64 97 09/19/18 12:00 65 18 155/80 (105) 97 Mechanical Ventilator 100.00 09/19/18 11:34 64 20 97 100 09/19/18 11:00 67 26 139/67 (91) 89 Mechanical Ventilator 100.00 09/19/18 10:52 Mechanical Ventilator 100.00 09/19/18 10:30 65 13 141/80 (100) 93 Mechanical Ventilator 80.00 09/19/18 10:15 66 27 144/79 (100) 93 Mechanical Ventilator 80.00 09/19/18 10:00 69 12 148/79 (102) 88 Mechanical Ventilator 80.00 09/19/18 09:45 72 25 144/77 (99) 88 Mechanical Ventilator 80.00 09/19/18 09:32 80 09/19/18 09:20 99.0 71 26 113/83 (93) 94 Mechanical Ventilator 80.00 09/19/18 09:05 80 09/19/18 08:51 72 12 84/40 (55) 99 09/19/18 08:48 73 16 99 100 09/19/18 08:33 75 13 120/61 94 Mechanical Ventilator 09/19/18 08:33 88 100 09/19/18 08:19 75 13 120/61 94 Mechanical Ventilator 09/19/18 08:18 86 70 09/19/18 08:05 16 88 60 09/19/18 06:00 24 94 50.00 09/19/18 05:39 99 NIV CPAP 100 09/19/18 05:39 99.4 88 26 129/87 (101) NIV/CPAP I & O 09/20/18 07:00 Intake Total 6845 ml Output Total 1575 ml Balance 5270 ml Height & Weight Height: 5'10.00" Weight: 350lbs. 3.0oz. 158.754450jd; 42.18 BMI Method:Estimated General Appearance: Obese, Other Neck: Normal Inspection Respiratory: Decreased Breath Sounds Cardiovascular: Regular Rate, Rhythm, No Murmur Capillary Refill: Less Than 3 Seconds Gastrointestinal: non tender, soft Results Lab Laboratory Tests 09/19/18 05:45 09/20/18 03:30 Assessment/Plan Assessment/Plan Acute on chronic respiratory failure with ARDS -Continue ventilator therapy -Increase peep to 14 - pt is currently on 100% Fi02 -Permissive hypercapnia -SVNs -repeat ABG -Pt has copious amounts of sputum and mucous plugs will do bedside bronchoscopy Bilateral pneumonia with ARDS -Continue Vanco, Zosyn -Check MRSA swab -check urine strep legionella ag Acute renal failure -HOLD LASIX -IVF Hyperkalemia -Kayexalate 30gms PO x 1 -monitor Atelectasis Poor IV access -Will place central line Morbid obesity with OHS and TERE Hyperkalemia JHON STEPHENSON DO Sep 20, 2018 05:31
[2018-09-20] MEDS ORDERED: SOD POLYSTERENE 15 GM/60 ML (KAYEXALATE) UNIT DOSE PO ONE (05:45)
[2018-09-20] MEDS: methylPREDNISolone 125 MG (Solu-MEDROL) VIAL IVP SCH ×4 (06:15→23:54)
--- NOTE | 2018-09-20 07:18 | Diagnostic Imaging Report ---
INDICATION: Lower respiratory infection Portable chest 3:49 AM There is an ET tube projecting over the trachea. NG tube appears to enter the stomach. Right IJ central line tip projects over the SVC. There is cardiomegaly with pulmonary vascular congestion. Lungs are clear. There is no effusion or pneumothorax. IMPRESSION: Cardiomegaly with pulmonary venous hypertension. Dictated by: Dictated on workstation # [id number]
--- NOTE | 2018-09-20 07:36 | Progress Note (SOAP) ---
Subjective Time Seen by a Provider: 07:34 Subjective/Events-last exam patient on vent this morning. Patient had bronchoscopy yesterday with removal of mucous plugs. Patient has renal insufficiency. Patient has COPD area Patient has pneumonia. Focused Exam Lactate Level 09/19/18 05:45: Lactic Acid Level 0.60 Objective Exam Vital Signs Date Time Temp Pulse Resp B/P (MAP) Pulse Ox O2 Delivery O2 Flow Rate FiO2 09/20/18 06:36 80 24 94 60 09/20/18 06:17 144/56 09/20/18 06:04 Mechanical Ventilator 60.00 09/20/18 06:00 70 23 149/58 (88) 94 Mechanical Ventilator 60.00 09/20/18 05:30 70 24 132/52 (78) 95 Mechanical Ventilator 60.00 09/20/18 05:00 77 24 125/50 (75) 94 Mechanical Ventilator 65.00 09/20/18 04:00 76 23 153/57 (89) 93 Mechanical Ventilator 65.00 09/20/18 04:00 Mechanical Ventilator 65 09/20/18 03:53 79 25 92 65 09/20/18 03:30 99.0 Mechanical Ventilator 65.00 09/20/18 03:00 81 23 131/54 (79) 92 Mechanical Ventilator 65.00 09/20/18 02:04 82 24 139/54 (82) 94 Mechanical Ventilator 65.00 09/20/18 02:00 77 27 137/54 (81) 95 Mechanical Ventilator 85.00 09/20/18 01:48 79 24 95 85 09/20/18 01:00 85 09/20/18 01:00 85 24 125/52 (76) 94 Mechanical Ventilator 85.00 09/20/18 00:25 119/50 09/20/18 00:00 Mechanical Ventilator 75 09/20/18 00:00 80 23 114/46 (68) 93 Mechanical Ventilator 85.00 09/19/18 23:30 86 34 128/62 (84) 90 Mechanical Ventilator 85.00 09/19/18 23:16 99.5 Mechanical Ventilator 65.00 09/19/18 23:08 87 24 95 75 09/19/18 23:00 77 28 128/53 (78) 87 Mechanical Ventilator 75.00 09/19/18 22:00 80 24 147/56 (86) 95 Mechanical Ventilator 75.00 09/19/18 21:32 Mechanical Ventilator 75.00 09/19/18 21:30 79 24 95 85 09/19/18 21:18 124/52 09/19/18 21:00 79 24 106/48 (67) 94 Mechanical Ventilator 85.00 09/19/18 20:00 75 21 133/58 (83) 92 Mechanical Ventilator 85.00 09/19/18 20:00 Mechanical Ventilator 85 09/19/18 19:58 100.1 Mechanical Ventilator 85.00 09/19/18 19:00 82 26 118/49 (72) 94 Mechanical Ventilator 85.00 09/19/18 19:00 82 09/19/18 18:25 74 24 92 85 09/19/18 18:07 31 147/72 94 Mechanical Ventilator 09/19/18 18:00 78 32 138/71 (93) 95 Mechanical Ventilator 85.00 09/19/18 17:05 Mechanical Ventilator 85.00 09/19/18 17:00 74 24 157/75 (102) 92 Mechanical Ventilator 70.00 09/19/18 16:26 Mechanical Ventilator 70.00 09/19/18 16:20 71 27 98 80 09/19/18 16:00 73 22 129/62 (84) 98 Mechanical Ventilator 100.00 09/19/18 16:00 100.2 09/19/18 15:41 99.2 09/19/18 15:33 95 Mechanical Ventilator 100 09/19/18 15:00 64 15 114/60 (78) 95 Mechanical Ventilator 100.00 09/19/18 14:38 59 106/60 09/19/18 14:32 59 26 94 80 09/19/18 14:00 60 12 101/60 (74) 95 Mechanical Ventilator 100.00 09/19/18 13:00 77 09/19/18 13:00 68 28 152/77 (102) 97 Mechanical Ventilator 100.00 09/19/18 12:49 64 97 09/19/18 12:00 65 18 155/80 (105) 97 Mechanical Ventilator 100.00 09/19/18 11:34 64 20 97 100 09/19/18 11:00 67 26 139/67 (91) 89 Mechanical Ventilator 100.00 09/19/18 10:52 Mechanical Ventilator 100.00 09/19/18 10:30 65 13 141/80 (100) 93 Mechanical Ventilator 80.00 09/19/18 10:15 66 27 144/79 (100) 93 Mechanical Ventilator 80.00 09/19/18 10:00 69 12 148/79 (102) 88 Mechanical Ventilator 80.00 09/19/18 09:45 72 25 144/77 (99) 88 Mechanical Ventilator 80.00 09/19/18 09:32 80 09/19/18 09:20 99.0 71 26 113/83 (93) 94 Mechanical Ventilator 80.00 09/19/18 09:05 80 09/19/18 08:51 72 12 84/40 (55) 99 09/19/18 08:48 73 16 99 100 09/19/18 08:33 75 13 120/61 94 Mechanical Ventilator 09/19/18 08:33 88 100 09/19/18 08:19 75 13 120/61 94 Mechanical Ventilator 09/19/18 08:18 86 70 09/19/18 08:05 16 88 60 I & O 09/20/18 07:00 Intake Total 7295 ml Output Total 2200 ml Balance 5095 ml Capillary Refill : Less Than 3 Seconds General Appearance: No Apparent Distress, WD/WN HEENT: Other (patient intubated) Neck: Normal Inspection Respiratory: No Accessory Muscle Use, No Respiratory Distress, Decreased Breath Sounds Cardiovascular: Regular Rate, Rhythm, No Murmur Gastrointestinal: non tender, soft Results Lab Laboratory Tests 09/20/18 03:30 Laboratory Tests 09/19/18 08:00: Urine Color YELLOW, Urine Clarity CLEAR, Urine pH 5, Urine Specific [place] 1.025H, Urine Protein 3+H, Urine Glucose (UA) NEGATIVE, Urine Ketones NEGATIVE, Urine Nitrite NEGATIVE, Urine Bilirubin NEGATIVE, Urine Urobilinogen NORMAL, Urine Leukocyte Esterase NEGATIVE, Urine RBC (Auto) 1+H, Urine RBC 2-5H, Urine WBC RARE, Urine Squamous Epithelial Cells RARE, Urine Crystals NONE, Urine Bacteria TRACE, Urine Casts PRESENT, Urine Hyaline Casts 5-10H, Urine Mucus NEGATIVE, Urine Culture Indicated CULTURE PENDING 09/19/18 12:05: Blood Gas Puncture Site RR, Blood Gas Patient Temperature 99.0, Arterial Blood pH 7.20*L, Arterial Blood Partial Pressure CO2 105*H, Arterial Blood Partial Pressure O2 182H, Arterial Blood HCO3 40H, Arterial Blood Total CO2 42.7H, Arterial Blood Oxygen Saturation 100, Arterial Blood Base Excess 11.5H, Neil Test YES-POS, Blood Gas Ventilator Setting YES, Blood Gas Inspired Oxygen 100% 09/19/18 13:20: Body Fluid Source OTHER, Body Fluid Color RED, Body Fluid Appearance MKD CLDY, Body Fluid Polynuclear WBCs 95, Body Fluid Mononuclear WBCs 0, Body Fluid Lymphocytes 5, Body Fluid Other Cells 0 09/19/18 15:55: Blood Gas Puncture Site LEFT RADIAL ARTLINE, Blood Gas Patient Temperature 100.2 , Arterial Blood pH 7.23*L, Arterial Blood Partial Pressure CO2 95*H, Arterial Blood Partial Pressure O2 267H, Arterial Blood HCO3 37H, Arterial Blood Total CO2 40.2H, Arterial Blood Oxygen Saturation 100, Arterial Blood Base Excess 10.0H, Neil Test NA, Blood Gas Ventilator Setting YES, Blood Gas Inspired Oxygen 100% 09/19/18 18:20: 09/20/18 03:30: White Blood Count 14.1H, Red Blood Count 3.43L, Hemoglobin 10.0L, Hematocrit 33L , Mean Corpuscular Volume 97, Mean Corpuscular Hemoglobin 29, Mean Corpuscular Hemoglobin Concent 30L, Red Cell Distribution Width 15.3H, Platelet Count 222, Mean Platelet Volume 9.2, Neutrophils (%) (Auto) 95H, Lymphocytes (%) (Auto) 3L , Monocytes (%) (Auto) 2, Eosinophils (%) (Auto) 0, Basophils (%) (Auto) 0, Neutrophils # (Auto) 13.4H, Lymphocytes # (Auto) 0.4L, Monocytes # (Auto) 0.3, Eosinophils # (Auto) 0.0, Basophils # (Auto) 0.0, Blood Gas Puncture Site LEFT ARTLINE, Blood Gas Patient Temperature 99.0, Arterial Blood pH 7.31*L, Arterial Blood Partial Pressure CO2 74*H, Arterial Blood Partial Pressure O2 75L, Arterial Blood HCO3 36H, Arterial Blood Total CO2 38.3H, Arterial Blood Oxygen Saturation 94, Arterial Blood Base Excess 9.7H, Neil Test ARTLINE, Blood Gas Ventilator Setting YES, Blood Gas Inspired Oxygen 65%, Sodium Level 140, Potassium Level 5.1H, Chloride Level 99, Carbon Dioxide Level 32, Anion Gap 9, Blood Urea Nitrogen 36H, Creatinine 1.55H, Estimat Glomerular Filtration Rate 46 , BUN/Creatinine Ratio 23, Glucose Level 165H, Calcium Level 9.3, Corrected Calcium 10.0, Phosphorus Level 2.8, Magnesium Level 2.1, Total Bilirubin 0.2, Aspartate Amino Transf (AST/SGOT) 17, Alanine Aminotransferase (ALT/SGPT) 11, Alkaline Phosphatase 116, Total Protein 6.7, Albumin 3.1L Microbiology 09/19/18 Gram Stain - Final, Resulted 09/19/18 Sputum Culture, Resulted Pending Assessment/Plan Assessment/Plan Assess & Plan/Chief Complaint acute and chronic respiratory failure. Bilateral pneumonia with acute respiratory distress syndrome. Acute renal failure. Hyperkalemia. Morbid obesity. Obstructive sleep apnea. Clinical Quality Measures Admission Status Admission Dx Acute respiratory failure with hypoxia. Hypercapnia. Severe COPD. Coronary artery disease. hyPretension DVT/VTE Risk/Contraindication: Risk Factor Score Per Nursin RFS Level Per Nursing on Admit: 4+=Very High DANITA TEE DO Sep 20, 2018 07:36
[2018-09-20] MEDS: PANTOPRAZOLE 40 MG (PROTONIX) VIAL IV SCH (08:44)
[2018-09-20] MEDS: VANCOMYCIN 2000 MG/NS 500 ML IVPB IV SCH ×4 (08:45→22:13)
[2018-09-20] MEDS: ENOXAPARIN 60 MG/0.6 ML (LOVENOX) SYR SC SCH ×2 (08:45→22:16)
--- NOTE | 2018-09-20 10:45 | NUR ---
Pastoral care Visit, pt intubated no family present.
[2018-09-20] MEDS: fentaNYL INJECTION 100 MCG/2 ML AMP IVP PRN (11:49)
[2018-09-20] MEDS ORDERED: TROUGH ORDER-PHARMACY XX ONE (21:00)
[2018-09-21] VITALS (32 sets, daily range): BP systolic 119–184; BP diastolic 51–74
[2018-09-21] MEDS: fentaNYL INJECTION 100 MCG/2 ML AMP IVP PRN ×2 (00:17→03:12)
[2018-09-21] MEDS: PROPOFOL DRIP (ICU) 100 ML IV SCH ×14 (00:31→23:29)
[2018-09-21] MEDS: PIPERACILLIN/TAZO 4.5 GM/NS 100 ML IV SCH ×6 (00:43→17:27)
[2018-09-21] MEDS: RT-ALBUTEROL/IPRATROPIUM 3 ML (DUONEB) VIAL INH SCH ×6 (01:19→22:23)
[2018-09-21] MEDS: NS IV 1000 ML 1,000 ML IV SCH ×2 (02:18→16:35)
[2018-09-21 03:26] LABS: ABG BASE EXCESS 8.4 MMOL/L (-2.5-2.5); ABG OXYGEN SATURATION 94 % (94-100); ABG PO2 74 MMHG (79-93); ABG TCO2 37.7 MMOL/L (21.0-31.0); BASOPHILS % (AUTO) 0 % (0-10); EOSINOPHILS % (AUTO) 0 % (0-10); HEMATOCRIT 33 % (40-54); LYMPHOCYTES # (AUTO) 0.5 X 10^3 (1.0-4.0); LYMPHOCYTES % (AUTO) 4 % (12-44); MEAN CORPUSCULAR HEMOGLOBIN 30 PG (25-34); MEAN CORPUSCULAR HGB CONC 31 G/DL (32-36); MEAN CORPUSCULAR VOLUME 98 FL (80-99); MEAN PLATELET VOLUME 8.9 FL (7.4-10.4); MONOCYTES # (AUTO) 0.9 X 10^3 (0.0-1.0); MONOCYTES % (AUTO) 7 % (0-12); NEUTROPHILS # (AUTO) 11.9 X 10^3 (1.8-7.8); NEUTROPHILS % (AUTO) 89 % (42-75); PLATELET COUNT 233 10^3/uL (130-400); RED BLOOD COUNT 3.35 10^6/uL (4.35-5.85); WHITE BLOOD COUNT 13.4 10^3/uL (4.3-11.0)
[2018-09-21 03:28] LABS: ALLENS TEST ARTLINE
[2018-09-21 03:29] LABS: ABG PH 7.26 (7.37-7.43); INSPIRED O2 50%; PATIENT TEMP 99.1; VENTILATOR YES
[2018-09-21 03:30] LABS: ABG PCO2 81 MMHG (35-45)
[2018-09-21 03:44] LABS: BUN/CREATININE RATIO 29; CALCIUM 9.3 MG/DL (8.5-10.1); CARBON DIOXIDE 30 MMOL/L (21-32); CHLORIDE 102 MMOL/L (98-107); CREATININE SERUM 1.12 MG/DL (0.60-1.30); GFR ESTIMATED > 60; GLUCOSE 131 MG/DL (70-105); PHOSPHORUS 3.9 MG/DL (2.3-4.7); POTASSIUM 5.3 MMOL/L (3.6-5.0); SODIUM 142 MMOL/L (135-145)
--- NOTE | 2018-09-21 04:20 | Pulmonary Progress Note ---
Subjective Time Seen by a Provider: 04:15 Subjective/Events-last exam pt is sedated on vent. No complications noted. Sepsis Event Evaluation Height, Weight, BMI Height: 5'10.00" Weight: 350lbs. 3.0oz. 158.631732ha; 42.18 BMI Method:Estimated Focused Exam Lactate Level 09/19/18 05:45: Lactic Acid Level 0.60 Exam Exam Vital Signs Date Time Temp Pulse Resp B/P (MAP) Pulse Ox O2 Delivery O2 Flow Rate FiO2 09/21/18 04:06 83 09/21/18 04:03 80 24 93 50 09/21/18 04:00 99.1 09/21/18 02:18 85 170/62 09/21/18 02:00 92 29 160/62 (94) 94 Mechanical Ventilator 50.00 09/21/18 01:20 89 25 94 50 09/21/18 01:00 88 09/21/18 01:00 88 30 139/57 (84) 93 Mechanical Ventilator 50.00 09/21/18 00:31 88 133/54 09/21/18 00:00 91 19 163/61 (95) 94 Mechanical Ventilator 50.00 09/21/18 00:00 98.2 09/21/18 00:00 Mechanical Ventilator 55 09/20/18 23:10 86 20 161/61 (94) 97 Mechanical Ventilator 50.00 09/20/18 23:04 86 24 95 55 09/20/18 23:00 84 23 156/65 (95) 95 Mechanical Ventilator 55.00 09/20/18 22:24 86 141/57 09/20/18 22:00 89 34 157/75 (102) 94 Mechanical Ventilator 55.00 09/20/18 21:00 101 25 172/67 (102) 95 Mechanical Ventilator 55.00 09/20/18 20:50 98.6 89 25 126/72 95 Mechanical Ventilator 60.00 09/20/18 20:00 Mechanical Ventilator 55 09/20/18 20:00 98.7 99 23 132/70 (90) 96 Mechanical Ventilator 55.00 09/20/18 19:33 90 23 122/73 (89) 96 Mechanical Ventilator 55.00 09/20/18 19:33 89 25 95 60 09/20/18 19:00 91 09/20/18 19:00 91 25 160/65 (96) 97 Mechanical Ventilator 60.00 09/20/18 18:23 172/64 09/20/18 18:00 92 22 163/62 (95) 97 Mechanical Ventilator 60.00 09/20/18 17:00 90 25 164/63 (96) 96 Mechanical Ventilator 60.00 09/20/18 16:08 153/62 09/20/18 16:00 Mechanical Ventilator 60 09/20/18 16:00 82 19 156/59 (91) 96 Mechanical Ventilator 60.00 09/20/18 16:00 98.6 09/20/18 15:07 75 24 96 60 09/20/18 15:00 75 24 153/59 (90) 96 Mechanical Ventilator 60.00 09/20/18 14:00 82 27 166/63 (97) 95 Mechanical Ventilator 60.00 09/20/18 14:00 98.8 09/20/18 13:57 184/84 09/20/18 13:01 66 24 136/56 (82) 96 Mechanical Ventilator 60.00 09/20/18 13:01 71 09/20/18 12:00 Mechanical Ventilator 60 09/20/18 12:00 76 23 112/46 (68) 93 Mechanical Ventilator 60.00 09/20/18 11:41 162/57 09/20/18 11:00 70 24 118/49 (72) 95 Mechanical Ventilator 60.00 09/20/18 10:31 65 24 96 60 09/20/18 10:00 74 24 121/52 (75) 96 Mechanical Ventilator 60.00 09/20/18 09:00 75 24 144/56 (85) 95 Mechanical Ventilator 60.00 09/20/18 08:59 137/52 09/20/18 08:38 74 24 94 60 09/20/18 08:00 Mechanical Ventilator 60 09/20/18 08:00 97.7 09/20/18 08:00 81 23 134/51 (78) 95 Mechanical Ventilator 60.00 09/20/18 07:09 83 09/20/18 07:00 87 23 174/56 (95) 95 Mechanical Ventilator 60.00 09/20/18 06:36 80 24 94 60 09/20/18 06:17 144/56 09/20/18 06:04 Mechanical Ventilator 60.00 09/20/18 06:00 70 23 149/58 (88) 94 Mechanical Ventilator 60.00 09/20/18 05:30 70 24 132/52 (78) 95 Mechanical Ventilator 60.00 09/20/18 05:00 77 24 125/50 (75) 94 Mechanical Ventilator 65.00 I & O 09/21/18 07:00 Intake Total 3120 ml Output Total 1575 ml Balance 1545 ml Height & Weight Height: 5'10.00" Weight: 350lbs. 3.0oz. 158.343302ej; 42.18 BMI Method:Estimated General Appearance: No Apparent Distress, WD/WN, Other (sedated on vent ) HEENT: Other (patient intubated) Neck: Normal Inspection Respiratory: No Accessory Muscle Use, No Respiratory Distress, Decreased Breath Sounds Cardiovascular: Regular Rate, Rhythm, No Murmur Capillary Refill: Less Than 3 Seconds Gastrointestinal: non tender, soft Skin: Normal Color, Warm/Dry Results Lab Laboratory Tests 09/19/18 05:45 09/20/18 03:30 09/21/18 03:15 Assessment/Plan Assessment/Plan Acute on chronic respiratory failure with ARDS -Continue ventilator therapy -Decrease peep to 10, increase RR to 28 -Add fentanyl gtt -start tube feeds with pulmicare at 15cc/hr -repeat ABG in 2hrs -Permissive hypercapnia -SVNs -repeat ABG -Pt has copious amounts of sputum and mucous plugs will do bedside bronchoscopy Bilateral strep pneumonia with ARDS -Continue Zosyn -D/c vanco - MRSA swab is neg -check urine strep legionella ag Acute renal failure -HOLD LASIX -IVF Hyperkalemia -Kayexalate 30gms PO x 1 Kayexalate, Bicarb, insulin -monitor Atelectasis Morbid obesity with OHS and TERE JHON STEPHENSON DO Sep 21, 2018 04:20
[2018-09-21] MEDS ORDERED: SODIUM BICARB 8.4% 50 MEQ/50 ML (ABBOTT) SYR ONE (05:00)
[2018-09-21] MEDS ORDERED: inSUlin (REGULAR) HUMAN 1 UNIT/0.01 ML (CHARGE PER UNIT) IV ONE (05:00)
[2018-09-21] MEDS ORDERED: SODIUM BICARB 8.4% 50 MEQ/50 ML (ABBOTT) SYR IV ONE (05:00)
[2018-09-21] MEDS ORDERED: DEXTROSE 50% 50 ML (IMS) SYR IV ONE (05:00)
[2018-09-21] MEDS ORDERED: SOD POLYSTERENE 15 GM/60 ML (KAYEXALATE) UNIT DOSE PO ONE (05:00)
[2018-09-21] MEDS ORDERED: SOD POLYSTERENE 15 GM/60 ML (KAYEXALATE) UNIT DOSE ONE (05:00)
[2018-09-21] MEDS ORDERED: DEXTROSE 50% 50 ML (IMS) SYR ONE (05:01)
[2018-09-21] MEDS ORDERED: inSUlin (REGULAR) HUMAN 1 UNIT/0.01 ML (CHARGE PER UNIT) ONE (05:04)
[2018-09-21] MEDS: methylPREDNISolone 125 MG (Solu-MEDROL) VIAL IVP SCH ×3 (05:13→17:27)
[2018-09-21 06:55] LABS: ABG BASE EXCESS 10.5 MMOL/L (-2.5-2.5); ABG OXYGEN SATURATION 97 % (94-100); ABG PH 7.33 (7.37-7.43); ABG PO2 83 MMHG (79-93); ABG TCO2 38.8 MMOL/L (21.0-31.0); ALLENS TEST ARTLINE; INSPIRED O2 50%; PATIENT TEMP 98.4; VENTILATOR YES
[2018-09-21 06:56] LABS: ABG PCO2 71 MMHG (35-45)
--- NOTE | 2018-09-21 07:55 | Progress Note (SOAP) ---
Subjective Time Seen by a Provider: 07:53 Subjective/Events-last exam Patient on vent. Less sedated. Kidney function better Patient stable in his unstable way. ABG slightly worse Focused Exam Lactate Level 09/19/18 05:45: Lactic Acid Level 0.60 Objective Exam Vital Signs Date Time Temp Pulse Resp B/P (MAP) Pulse Ox O2 Delivery O2 Flow Rate FiO2 09/21/18 07:47 135/55 09/21/18 07:46 148/61 09/21/18 06:11 68 28 96 50 09/21/18 06:00 73 22 119/54 (75) 96 Mechanical Ventilator 50.00 09/21/18 05:59 76 09/21/18 05:00 77 28 127/53 (77) 96 Mechanical Ventilator 50.00 09/21/18 04:06 83 09/21/18 04:03 80 24 93 50 09/21/18 04:00 Mechanical Ventilator 50 09/21/18 04:00 81 24 146/57 (86) 93 Mechanical Ventilator 50.00 09/21/18 04:00 99.1 09/21/18 03:00 93 31 157/63 (94) 95 Mechanical Ventilator 50.00 09/21/18 02:18 85 170/62 09/21/18 02:00 92 29 160/62 (94) 94 Mechanical Ventilator 50.00 09/21/18 01:20 89 25 94 50 09/21/18 01:00 88 09/21/18 01:00 88 30 139/57 (84) 93 Mechanical Ventilator 50.00 09/21/18 00:31 88 133/54 09/21/18 00:00 91 19 163/61 (95) 94 Mechanical Ventilator 50.00 09/21/18 00:00 98.2 09/21/18 00:00 Mechanical Ventilator 55 09/20/18 23:10 86 20 161/61 (94) 97 Mechanical Ventilator 50.00 09/20/18 23:04 86 24 95 55 09/20/18 23:00 84 23 156/65 (95) 95 Mechanical Ventilator 55.00 09/20/18 22:24 86 141/57 09/20/18 22:00 89 34 157/75 (102) 94 Mechanical Ventilator 55.00 09/20/18 21:00 101 25 172/67 (102) 95 Mechanical Ventilator 55.00 09/20/18 20:50 98.6 89 25 126/72 95 Mechanical Ventilator 60.00 09/20/18 20:00 Mechanical Ventilator 55 09/20/18 20:00 98.7 99 23 132/70 (90) 96 Mechanical Ventilator 55.00 09/20/18 19:33 90 23 122/73 (89) 96 Mechanical Ventilator 55.00 09/20/18 19:33 89 25 95 60 09/20/18 19:00 91 09/20/18 19:00 91 25 160/65 (96) 97 Mechanical Ventilator 60.00 09/20/18 18:23 172/64 09/20/18 18:00 92 22 163/62 (95) 97 Mechanical Ventilator 60.00 09/20/18 17:00 90 25 164/63 (96) 96 Mechanical Ventilator 60.00 09/20/18 16:08 153/62 09/20/18 16:00 Mechanical Ventilator 60 09/20/18 16:00 82 19 156/59 (91) 96 Mechanical Ventilator 60.00 09/20/18 16:00 98.6 09/20/18 15:07 75 24 96 60 09/20/18 15:00 75 24 153/59 (90) 96 Mechanical Ventilator 60.00 09/20/18 14:00 82 27 166/63 (97) 95 Mechanical Ventilator 60.00 09/20/18 14:00 98.8 09/20/18 13:57 184/84 09/20/18 13:01 66 24 136/56 (82) 96 Mechanical Ventilator 60.00 09/20/18 13:01 71 09/20/18 12:00 Mechanical Ventilator 60 09/20/18 12:00 76 23 112/46 (68) 93 Mechanical Ventilator 60.00 09/20/18 11:41 162/57 09/20/18 11:00 70 24 118/49 (72) 95 Mechanical Ventilator 60.00 09/20/18 10:31 65 24 96 60 09/20/18 10:00 74 24 121/52 (75) 96 Mechanical Ventilator 60.00 09/20/18 09:00 75 24 144/56 (85) 95 Mechanical Ventilator 60.00 09/20/18 08:59 137/52 09/20/18 08:38 74 24 94 60 09/20/18 08:00 Mechanical Ventilator 60 09/20/18 08:00 97.7 1/17/19 08:00 81 23 134/51 (78) 95 Mechanical Ventilator 60.00 I & O 09/21/18 07:00 Intake Total 3120 ml Output Total 2125 ml Balance 995 ml Capillary Refill : Less Than 3 Seconds General Appearance: No Apparent Distress, WD/WN HEENT: Other (Patient on vent) Neck: Normal Inspection, Non Tender Respiratory: Lungs Clear, No Accessory Muscle Use, No Respiratory Distress, Decreased Breath Sounds Cardiovascular: Regular Rate, Rhythm, No Murmur Gastrointestinal: non tender, soft Results Lab Laboratory Tests 09/21/18 03:15 Laboratory Tests 09/20/18 11:50: Glucometer 132H 09/20/18 17:08: Glucometer 115H 09/20/18 21:35: Vancomycin Level Trough 31.1*H 09/21/18 00:09: Glucometer 126H 09/21/18 03:15: White Blood Count 13.4H, Red Blood Count 3.35L, Hemoglobin 10.0L, Hematocrit 33L , Mean Corpuscular Volume 98, Mean Corpuscular Hemoglobin 30, Mean Corpuscular Hemoglobin Concent 31L, Red Cell Distribution Width 16.0H, Platelet Count 233, Mean Platelet Volume 8.9, Neutrophils (%) (Auto) 89H, Lymphocytes (%) (Auto) 4L , Monocytes (%) (Auto) 7, Eosinophils (%) (Auto) 0, Basophils (%) (Auto) 0, Neutrophils # (Auto) 11.9H, Lymphocytes # (Auto) 0.5L, Monocytes # (Auto) 0.9, Eosinophils # (Auto) 0.0, Basophils # (Auto) 0.0, Blood Gas Puncture Site ARTLINE, Blood Gas Patient Temperature 99.1, Arterial Blood pH 7.26*L, Arterial Blood Partial Pressure CO2 81*H, Arterial Blood Partial Pressure O2 74L, Arterial Blood HCO3 35H, Arterial Blood Total CO2 37.7H, Arterial Blood Oxygen Saturation 94, Arterial Blood Base Excess 8.4H, Neil Test ARTLINE, Blood Gas Ventilator Setting YES, Blood Gas Inspired Oxygen 50%, Sodium Level 142, Potassium Level 5.3H, Chloride Level 102, Carbon Dioxide Level 30, Anion Gap 10 , Blood Urea Nitrogen 33H, Creatinine 1.12, Estimat Glomerular Filtration Rate > 60, BUN/Creatinine Ratio 29, Glucose Level 131H, Calcium Level 9.3, Phosphorus Level 3.9, Magnesium Level 2.0 09/21/18 06:50: Blood Gas Puncture Site ARTLINE, Blood Gas Patient Temperature 98.4, Arterial Blood pH 7.33*L, Arterial Blood Partial Pressure CO2 71*H, Arterial Blood Partial Pressure O2 83, Arterial Blood HCO3 37H, Arterial Blood Total CO2 38.8H , Arterial Blood Oxygen Saturation 97, Arterial Blood Base Excess 10.5H, Neil Test ARTLINE, Blood Gas Ventilator Setting YES, Blood Gas Inspired Oxygen 50% Microbiology 09/19/18 Blood Culture - Preliminary, Resulted No growth 09/19/18 Mycobacterial Culture - Preliminary, Resulted 09/19/18 Urine Culture - Final, Complete NO GROWTH Assessment/Plan Assessment/Plan Assess & Plan/Chief Complaint acute and chronic respiratory failure. Bilateral pneumonia with acute respiratory distress syndrome. Acute renal failure. Hyperkalemia. Morbid obesity. Obstructive sleep apnea.. . 09/21/18. Acute and chronic respiratory failure. Bilateral pneumonia. Lungs. Renal insufficiency back to normal area Hypokalemia. Morbid obesity. Obstructive sleep apnea. Clinical Quality Measures Admission Status Admission Dx Acute respiratory failure with hypoxia. Hypercapnia. Severe COPD. Coronary artery disease. hyPretension DVT/VTE Risk/Contraindication: Risk Factor Score Per Nursin RFS Level Per Nursing on Admit: 4+=Very High DANITA TEE DO Sep 21, 2018 07:55
[2018-09-21] MEDS: fentaNYL INJECTION 1,250 MCG in NS (IVPB) 250 ML IV SCH (08:30)
--- NOTE | 2018-09-21 08:39 | Diagnostic Imaging Report ---
INDICATION: Respiratory failure. TECHNIQUE: A frontal chest was obtained at 0349 hours. COMPARISON: 09/20/2018. FINDINGS: The ET tube, NG tube, and right IJ central catheter are unchanged. There is cardiomegaly and central vascular congestion with interstitial edema, unchanged from yesterday. There is no pneumothorax, pleural fluid, or new abnormality. IMPRESSION: Cardiomegaly and central vascular congestion with interstitial edema. No significant change from yesterday. Life-support lines are stable. Dictated by: Dictated on workstation # [id number]
--- NOTE | 2018-09-21 09:20 | NUR ---
Tube feeding started - pulmicare 15mL/hr via OG
[2018-09-21] MEDS: PANTOPRAZOLE 40 MG (PROTONIX) VIAL IV SCH (09:26)
[2018-09-21] MEDS: ENOXAPARIN 60 MG/0.6 ML (LOVENOX) SYR SC SCH ×2 (09:27→22:14)
[2018-09-21] MEDS: LORazepam INJ 2 MG/ML (ATIVAN) VIAL IVP PRN ×3 (11:56→22:36)
--- NOTE | 2018-09-21 15:22 | NUR ---
RECOMMEND INCREASE PULMOCARE TO 70 ML/HR TO PROVIDE 2520 KCAL, 105 GRAMS PROTEIN, 1319 ML FREE WATER. PT WILL NEED ADDITIONAL 2200 ML FLUID PER DAY TO MEET NEEDS.
[2018-09-22] VITALS (35 sets, daily range): BP systolic 113–181; BP diastolic 50–73
[2018-09-22] MEDS: methylPREDNISolone 125 MG (Solu-MEDROL) VIAL IVP SCH ×4 (00:26→17:25)
[2018-09-22] MEDS: PIPERACILLIN/TAZO 4.5 GM/NS 100 ML IV SCH ×6 (00:28→17:25)
[2018-09-22] MEDS: RT-ALBUTEROL/IPRATROPIUM 3 ML (DUONEB) VIAL INH SCH ×6 (01:57→22:50)
[2018-09-22] MEDS: LORazepam INJ 2 MG/ML (ATIVAN) VIAL IVP PRN (02:38)
[2018-09-22] MEDS: PROPOFOL DRIP (ICU) 100 ML IV SCH ×8 (03:39→21:01)
[2018-09-22 03:45] LABS: BASOPHILS % (AUTO) 0 % (0-10); EOSINOPHILS % (AUTO) 0 % (0-10); HEMATOCRIT 33 % (40-54); HEMOGLOBIN 9.8 G/DL (13.3-17.7); LYMPHOCYTES # (AUTO) 0.6 X 10^3 (1.0-4.0); LYMPHOCYTES % (AUTO) 7 % (12-44); MEAN CORPUSCULAR HEMOGLOBIN 30 PG (25-34); MEAN CORPUSCULAR HGB CONC 30 G/DL (32-36); MEAN CORPUSCULAR VOLUME 99 FL (80-99); MEAN PLATELET VOLUME 9.2 FL (7.4-10.4); MONOCYTES # (AUTO) 0.8 X 10^3 (0.0-1.0); MONOCYTES % (AUTO) 10 % (0-12); NEUTROPHILS # (AUTO) 7.2 X 10^3 (1.8-7.8); NEUTROPHILS % (AUTO) 83 % (42-75); PLATELET COUNT 217 10^3/uL (130-400); RED BLOOD COUNT 3.32 10^6/uL (4.35-5.85); WHITE BLOOD COUNT 8.7 10^3/uL (4.3-11.0)
[2018-09-22 03:45] LABS: ABG BASE EXCESS 10.9 MMOL/L (-2.5-2.5); ABG OXYGEN SATURATION 94 % (94-100); ABG PO2 69 MMHG (79-93); ABG TCO2 39.8 MMOL/L (21.0-31.0)
[2018-09-22 03:47] LABS: ABG PCO2 77 MMHG (35-45); ABG PH 7.31 (7.37-7.43); ALLENS TEST ART LINE; INSPIRED O2 50%; PATIENT TEMP 98.4; VENTILATOR YES
[2018-09-22 04:02] LABS: BUN/CREATININE RATIO 30; CALCIUM 9.3 MG/DL (8.5-10.1); CARBON DIOXIDE 33 MMOL/L (21-32); CHLORIDE 103 MMOL/L (98-107); CREATININE SERUM 1.01 MG/DL (0.60-1.30); GFR ESTIMATED > 60; GLUCOSE 159 MG/DL (70-105); MAGNESIUM 2.2 MG/DL (1.8-2.4); PHOSPHORUS 3.2 MG/DL (2.3-4.7); POTASSIUM 4.7 MMOL/L (3.6-5.0); SODIUM 144 MMOL/L (135-145)
[2018-09-22] MEDS: fentaNYL INJECTION 1,250 MCG in NS (IVPB) 250 ML IV SCH ×2 (04:29→17:34)
--- NOTE | 2018-09-22 07:57 | Pulmonary Progress Note ---
Subjective Time Seen by a Provider: 08:12 Subjective/Events-last exam Pt is sedated on vent. No complications noted. Sepsis Event Evaluation Height, Weight, BMI Height: 5'10.00" Weight: 350lbs. 3.0oz. 158.771622ee; 42.18 BMI Method:Estimated Exam Exam Vital Signs Date Time Temp Pulse Resp B/P (MAP) Pulse Ox O2 Delivery O2 Flow Rate FiO2 09/22/18 06:00 67 27 126/53 (77) 94 Mechanical Ventilator 50.00 09/22/18 05:00 68 28 125/54 (77) 93 Mechanical Ventilator 50.00 09/22/18 04:39 Mechanical Ventilator 09/22/18 04:00 98.4 09/22/18 04:00 82 28 164/64 (97) 92 Mechanical Ventilator 50.00 09/22/18 03:40 79 161/67 09/22/18 03:39 79 161/67 09/22/18 03:00 80 27 181/73 (109) 91 Mechanical Ventilator 50.00 09/22/18 02:00 78 26 140/58 (85) 91 Mechanical Ventilator 50.00 09/22/18 01:58 79 28 91 50 09/22/18 01:00 85 26 144/59 (87) 94 Mechanical Ventilator 50.00 09/22/18 01:00 84 09/22/18 00:24 77 28 93 50 09/22/18 00:15 Mechanical Ventilator 09/22/18 00:15 98.4 09/22/18 00:00 75 27 134/55 (81) 92 Mechanical Ventilator 50.00 09/21/18 23:29 75 143/56 Mechanical Ventilator 50.00 09/21/18 23:28 75 143/56 09/21/18 23:00 76 18 136/53 (80) 92 Mechanical Ventilator 50.00 09/21/18 22:25 73 28 97 50 09/21/18 22:00 62 27 141/62 (88) 95 Mechanical Ventilator 50.00 09/21/18 21:00 65 27 153/63 (93) 93 Mechanical Ventilator 50.00 09/21/18 20:00 67 27 136/61 (86) 92 Mechanical Ventilator 50.00 09/21/18 19:50 Mechanical Ventilator 09/21/18 19:40 71 28 92 50 1/18/19 19:20 99.0 09/21/18 19:20 72 161/68 Mechanical Ventilator 50.00 09/21/18 19:19 72 161/68 09/21/18 19:00 74 09/21/18 19:00 75 26 149/71 (97) 92 Mechanical Ventilator 50.00 09/21/18 18:15 74 28 93 50 09/21/18 18:00 69 27 141/63 (89) 94 Mechanical Ventilator 50.00 09/21/18 17:00 65 28 137/59 (85) 94 Mechanical Ventilator 50.00 09/21/18 16:00 66 27 138/71 (93) 94 Mechanical Ventilator 50.00 09/21/18 16:00 Mechanical Ventilator 50 09/21/18 15:09 156/62 09/21/18 15:08 158/63 09/21/18 15:00 64 27 136/70 (92) 94 Mechanical Ventilator 50.00 09/21/18 14:22 61 28 95 50 09/21/18 14:00 62 28 127/56 (79) 95 Mechanical Ventilator 50.00 09/21/18 13:00 64 26 133/57 (82) 94 Mechanical Ventilator 50.00 09/21/18 13:00 69 09/21/18 12:00 Mechanical Ventilator 50 09/21/18 12:00 84 22 157/66 (96) 94 Mechanical Ventilator 50.00 09/21/18 12:00 99.5 09/21/18 11:01 186/72 09/21/18 11:00 83 27 184/74 (110) 92 Mechanical Ventilator 50.00 09/21/18 11:00 156/70 09/21/18 10:01 73 28 95 50 09/21/18 10:00 66 28 147/62 (90) 94 Mechanical Ventilator 50.00 09/21/18 09:00 66 28 124/61 (82) 94 Mechanical Ventilator 50.00 09/21/18 08:00 98.4 09/21/18 08:00 Mechanical Ventilator 50 09/21/18 08:00 72 28 151/60 (90) 94 Mechanical Ventilator 50.00 I & O 09/22/18 07:00 Intake Total 2097 ml Output Total 2375 ml Balance -278 ml Height & Weight Height: 5'10.00" Weight: 350lbs. 3.0oz. 158.421685tu; 42.18 BMI Method:Estimated General Appearance: No Apparent Distress, WD/WN HEENT: Other (Patient on vent) Neck: Normal Inspection, Non Tender Respiratory: Lungs Clear, No Accessory Muscle Use, No Respiratory Distress, Decreased Breath Sounds Cardiovascular: Regular Rate, Rhythm, No Murmur Capillary Refill: Less Than 3 Seconds Gastrointestinal: non tender, soft Skin: Normal Color, Warm/Dry Results Lab Laboratory Tests 09/21/18 03:15 09/22/18 03:37 Assessment/Plan Assessment/Plan Acute on chronic respiratory failure with ARDS -Continue ventilator therapy -Decrease peep to 10, increase RR to 28 - fentanyl gtt add precedex -start tube feeds with pulmicare at 15cc/hr -repeat ABG in 2hrs -Permissive hypercapnia -SVNs -repeat ABG -Pt has copious amounts of sputum and mucous plugs will do bedside bronchoscopy Bilateral strep pneumonia with ARDS -Continue Zosyn -D/c vanco - MRSA swab is neg -check urine strep legionella ag Acute renal failure -HOLD LASIX -IVF Hyperkalemia -Kayexalate 30gms PO x 1 Kayexalate, Bicarb, insulin -monitor Atelectasis Morbid obesity with OHS and TERE JHON STEPHENSON DO Sep 22, 2018 07:57
[2018-09-22] MEDS ORDERED: FUROSEMIDE 40 MG/4 ML INJ (LASIX) IVP NR (08:00)
[2018-09-22] MEDS: METOCLOPRAMIDE INJ 10 MG/2 ML (REGLAN) IVP SCH ×2 (08:16→21:05)
[2018-09-22] MEDS: DEXMEDETOMIDINE INJECTION 200 MCG in NS (IVPB) 50 ML IV SCH ×3 (08:21→11:59)
--- NOTE | 2018-09-22 08:35 | Diagnostic Imaging Report ---
INDICATION: Dyspnea. COMPARISON: 09/21/2018. DISCUSSION: Single portable upright view of the chest was obtained. Exam is slightly degraded by patient motion. Cardiomegaly is stable. Enteric tube is very difficult to visualize given technique. Endotracheal tube and right IJ catheter are stable. Worsening opacities within the lung bases, likely atelectasis though indeterminate. No pleural fluid or pneumothorax. IMPRESSION: 1. Limited chest. Worsening opacities within the lung bases could be seen with atelectasis or pneumonia. Dictated by: Dictated on workstation # [id number]
[2018-09-22] MEDS: ENOXAPARIN 60 MG/0.6 ML (LOVENOX) SYR SC SCH ×2 (09:01→21:07)
[2018-09-22] MEDS: PANTOPRAZOLE 40 MG (PROTONIX) VIAL IV SCH (09:01)
[2018-09-22] MEDS: NS IV 1000 ML 1,000 ML IV SCH (11:45)
--- NOTE | 2018-09-22 12:36 | NUR ---
Precedex decreased due to bradycardia. Dr. Forrest notified
--- NOTE | 2018-09-22 12:49 | Progress Note-Hospitalist ---
Subjective HPI/CC On Admission Date Seen by Provider: Sep 22, 2018 Time Seen by Provider: 11:11 Subjective/Events-last exam Remains intubated Reviewed meds and labs Reviewed imaging Objective Exam Vital Signs Vital Signs Date Time Temp Pulse Resp B/P (MAP) Pulse Ox O2 Delivery O2 Flow Rate FiO2 09/22/18 12:39 60 28 99 50 09/22/18 12:00 119/55 (76) Mechanical Ventilator 40.00 09/22/18 12:00 99.4 Capillary Refill : Less Than 3 Seconds General Appearance: No Apparent Distress, WD/WN, Chronically ill, Obese, Other (Intubated) Respiratory: Chest Non Tender, Lungs Clear, No Accessory Muscle Use, No Respiratory Distress, Decreased Breath Sounds Cardiovascular: Regular Rate, Rhythm, No Edema, No Gallop, No JVD, No Murmur, Normal Peripheral Pulses Results/Procedures Lab Laboratory Tests 09/22/18 03:37 Patient resulted labs reviewed. Assessment/Plan Assessment and Plan Assess & Plan/Chief Complaint Assessment: Ventilator-dependent respiratory failure Bilateral pneumonia Obesity Leukocytosis Anemia Plan: Appreciate Dr. Forrest's assistance Guarded prognosis Diagnosis/Problems Diagnosis/Problems (1) Bilateral pneumonia Status: Acute Qualifiers: Pneumonia type: due to unspecified organism Lung location: lower lobe of lung Qualified Codes: J18.1 - Lobar pneumonia, unspecified organism (2) Respiratory failure Status: Acute Qualifiers: Chronicity: acute Respiratory failure complication: hypoxia and hypercapnia Qualified Codes: J96.01 - Acute respiratory failure with hypoxia; J96.02 - Acute respiratory failure with hypercapnia (3) COPD exacerbation Status: Acute (4) Morbid obesity Status: Chronic (5) Hypertension Status: Chronic Qualifiers: Hypertension type: essential hypertension Qualified Codes: I10 - Essential (primary) hypertension Clinical Quality Measures DVT/VTE Risk/Contraindication: Risk Factor Score Per Nursin RFS Level Per Nursing on Admit: 4+=Very High JIGNESH WASHINGTON DO Sep 22, 2018 12:48
--- NOTE | 2018-09-22 12:54 | NUR ---
EtCO2 reading 19. Dr. Forrest notified et order for ABG received
[2018-09-22 13:07] LABS: ABG BASE EXCESS 11.8 MMOL/L (-2.5-2.5); ABG OXYGEN SATURATION 97 % (94-100); ABG PCO2 69 MMHG (35-45); ABG PH 7.35 (7.37-7.43); ABG PO2 78 MMHG (79-93)
[2018-09-22 13:08] LABS: ALLENS TEST POSITIVE; INSPIRED O2 50%; PATIENT TEMP 97.6; VENTILATOR YES
--- NOTE | 2018-09-22 14:30 | NUR ---
Precedex gtt turned off due to HR dropping occasionally below 60
--- NOTE | 2018-09-22 15:07 | Diagnostic Imaging Report ---
PATIENT HISTORY: Endotracheal tube change. TECHNIQUE: Single frontal view of the chest. COMPARISON: Radiograph from the same day. FINDINGS: The endotracheal tube is approximately 9.5 cm from the balwinder. An enteric tube crosses the iddat-wi-kske. The tip of the right jugular line projects over the upper SVC. There is cardiomegaly with central vascular congestion. There are mild diffuse interstitial opacities. Airspace opacities are noted at the lung bases, left greater than right. Overall aeration appears mildly improved. Lung volumes are large. No pneumothorax is seen. IMPRESSION: 1. The endotracheal tube is approximately 9.5 cm from the balwinder. 2. Cardiomegaly with central vascular congestion and mild interstitial edema. There are persistent basilar airspace opacities, left greater than right. Overall aeration appears mildly improved. Dictated by: Dictated on workstation # [id number]
--- NOTE | 2018-09-22 15:30 | NUR ---
Pt HR decreased to 30s with 1-2second pause. EKG obtained. Dr. Marquez et Dr. Forrest notified. Order to consult Dr. Gallardo. Dr. Gallardo DC'd precedex et order echo for in AM
[2018-09-23] VITALS (33 sets, daily range): BP systolic 97–194; BP diastolic 52–93
[2018-09-23] MEDS: PROPOFOL DRIP (ICU) 100 ML IV SCH ×4 (00:58→08:39)
[2018-09-23] MEDS: methylPREDNISolone 125 MG (Solu-MEDROL) VIAL IVP SCH ×4 (00:58→18:00)
[2018-09-23] MEDS: PIPERACILLIN/TAZO 4.5 GM/NS 100 ML IV SCH ×6 (01:10→17:00)
[2018-09-23] MEDS: RT-ALBUTEROL/IPRATROPIUM 3 ML (DUONEB) VIAL INH SCH ×6 (02:30→22:31)
[2018-09-23 03:19] LABS: BASOPHILS % (AUTO) 0 % (0-10); EOSINOPHILS % (AUTO) 0 % (0-10); HEMATOCRIT 33 % (40-54); LYMPHOCYTES # (AUTO) 1.3 X 10^3 (1.0-4.0); LYMPHOCYTES % (AUTO) 12 % (12-44); MEAN CORPUSCULAR HGB CONC 30 G/DL (32-36); MEAN CORPUSCULAR VOLUME 98 FL (80-99); MEAN PLATELET VOLUME 9.1 FL (7.4-10.4); MONOCYTES # (AUTO) 1.1 X 10^3 (0.0-1.0); MONOCYTES % (AUTO) 10 % (0-12); NEUTROPHILS # (AUTO) 8.3 X 10^3 (1.8-7.8); NEUTROPHILS % (AUTO) 77 % (42-75); PLATELET COUNT 215 10^3/uL (130-400); RED BLOOD COUNT 3.39 10^6/uL (4.35-5.85); RED CELL DISTRIBUTION WIDTH 16.4 % (10.0-14.5); WHITE BLOOD COUNT 10.8 10^3/uL (4.3-11.0)
[2018-09-23 03:20] LABS: ABG OXYGEN SATURATION 91 % (94-100); ABG PO2 67 MMHG (79-93); ABG TCO2 40.6 MMOL/L (21.0-31.0); MEAN CORPUSCULAR HEMOGLOBIN 29 PG (25-34)
[2018-09-23 03:21] LABS: ABG PCO2 77 MMHG (35-45); ABG PH 7.32 (7.37-7.43); ALLENS TEST ART LINE; INSPIRED O2 45%; VENTILATOR YES
[2018-09-23 03:22] LABS: PATIENT TEMP 99.3
[2018-09-23 03:38] LABS: BUN/CREATININE RATIO 38; CARBON DIOXIDE 31 MMOL/L (21-32); CHLORIDE 103 MMOL/L (98-107); CREATININE SERUM 0.94 MG/DL (0.60-1.30); GFR ESTIMATED > 60; GLUCOSE 130 MG/DL (70-105); MAGNESIUM 2.2 MG/DL (1.8-2.4); PHOSPHORUS 3.6 MG/DL (2.3-4.7); POTASSIUM 4.4 MMOL/L (3.6-5.0); SODIUM 146 MMOL/L (135-145)
[2018-09-23] MEDS: LORazepam INJ 2 MG/ML (ATIVAN) VIAL IVP PRN ×2 (05:29→23:42)
[2018-09-23] MEDS ORDERED: MIDAZOLAM 5 MG/5 ML (VERSED) VIAL ONE (06:16)
--- NOTE | 2018-09-23 06:27 | Pulmonary Progress Note ---
Subjective Time Seen by a Provider: 06:36 Subjective/Events-last exam Pt is sedated on vent. Sepsis Event Evaluation Height, Weight, BMI Height: 5'10.00" Weight: 350lbs. 3.0oz. 158.092494eg; 42.18 BMI Method:Estimated Exam Exam Vital Signs Date Time Temp Pulse Resp B/P (MAP) Pulse Ox O2 Delivery O2 Flow Rate FiO2 09/23/18 06:00 79 27 136/58 (84) 92 Mechanical Ventilator 45.00 09/23/18 05:00 94 27 179/65 (103) 91 Mechanical Ventilator 45.00 09/23/18 04:33 Mechanical Ventilator 09/23/18 04:30 99 28 92 45 09/23/18 04:27 99.2 09/23/18 04:27 102 157/71 09/23/18 04:00 99 26 133/68 (89) 91 Mechanical Ventilator 45.00 09/23/18 03:00 97 29 151/67 (95) 91 Mechanical Ventilator 45.00 09/23/18 02:30 85 28 93 45 09/23/18 02:00 84 27 141/58 (85) 92 Mechanical Ventilator 45.00 09/23/18 01:00 85 09/23/18 01:00 84 28 167/68 (101) 94 Mechanical Ventilator 45.00 09/23/18 00:59 98.1 09/23/18 00:58 88 154/64 09/23/18 00:30 Mechanical Ventilator 09/23/18 00:15 81 28 92 45 09/23/18 00:00 78 28 133/56 (81) 90 Mechanical Ventilator 45.00 09/22/18 23:00 78 27 156/67 (96) 93 Mechanical Ventilator 45.00 09/22/18 22:50 71 28 95 45 09/22/18 22:00 77 27 122/54 (76) 92 Mechanical Ventilator 45.00 09/22/18 21:01 98.0 82 28 130/54 92 Mechanical Ventilator 45.00 09/22/18 21:00 80 27 129/53 (78) 92 Mechanical Ventilator 45.00 09/22/18 21:00 82 130/54 09/22/18 20:50 75 28 94 45 09/22/18 20:48 98.0 80 28 129/53 (78) 92 45.00 09/22/18 20:30 Mechanical Ventilator 09/22/18 20:00 70 15 138/61 (86) 93 Mechanical Ventilator 50.00 09/22/18 19:00 76 14 141/59 (86) 93 Mechanical Ventilator 50.00 09/22/18 19:00 77 09/22/18 18:30 67 28 96 50 09/22/18 18:00 59 12 123/54 (77) 95 Mechanical Ventilator 50.00 09/22/18 17:00 59 18 123/54 (77) 94 Mechanical Ventilator 40.00 09/22/18 16:55 61 94 40 09/22/18 16:00 Mechanical Ventilator 50 09/22/18 16:00 58 28 121/52 (75) 94 Mechanical Ventilator 40.00 09/22/18 15:12 61 28 94 50 09/22/18 15:00 65 27 118/50 (72) 94 Mechanical Ventilator 40.00 09/22/18 14:40 72 27 125/51 97 Mechanical Ventilator 50.00 09/22/18 14:00 40 152/66 (94) 87 Mechanical Ventilator 40.00 09/22/18 13:12 59 09/22/18 13:00 61 28 122/54 (76) 94 Mechanical Ventilator 40.00 09/22/18 12:39 60 28 99 50 09/22/18 12:00 119/55 (76) Mechanical Ventilator 40.00 09/22/18 12:00 99.4 09/22/18 12:00 Mechanical Ventilator 09/22/18 11:18 66 Mechanical Ventilator 09/22/18 11:00 65 27 115/63 (80) 93 Mechanical Ventilator 50.00 09/22/18 10:00 68 28 119/55 (76) 95 Mechanical Ventilator 50.00 09/22/18 09:47 65 28 94 50 09/22/18 09:00 73 36 126/54 (78) 89 Mechanical Ventilator 50.00 09/22/18 08:04 98.4 09/22/18 08:00 Mechanical Ventilator 09/22/18 08:00 143/62 09/22/18 08:00 71 28 141/57 (85) 94 Mechanical Ventilator 50.00 09/22/18 07:59 154/67 09/22/18 07:52 67 28 93 50 09/22/18 07:14 60 09/22/18 07:00 68 27 136/56 (82) 94 Mechanical Ventilator 50.00 I & O 09/23/18 07:00 Intake Total 3953 ml Output Total 3425 ml Balance 528 ml Height & Weight Height: 5'10.00" Weight: 350lbs. 3.0oz. 158.780690sp; 42.18 BMI Method:Estimated General Appearance: No Apparent Distress, WD/WN, Chronically ill, Obese, Other (Intubated) HEENT: Other (Patient on vent) Neck: Normal Inspection, Non Tender Respiratory: Chest Non Tender, Lungs Clear, No Accessory Muscle Use, No Respiratory Distress, Decreased Breath Sounds Cardiovascular: Regular Rate, Rhythm, No Edema, No Gallop, No JVD, No Murmur, Normal Peripheral Pulses Capillary Refill: Less Than 3 Seconds Gastrointestinal: non tender, soft Skin: Normal Color, Warm/Dry Results Lab Laboratory Tests 09/22/18 03:37 09/23/18 03:12 Assessment/Plan Assessment/Plan Acute on chronic respiratory failure with ARDS -PT has copious amounts of secretions per RT -Will do bedside bronchoscopy. -Continue ventilator therapy - fentanyl gtt and propofol -precedex - d/c'd secondary to bradycardia -Will try to wake pt up and start weaning -Hold tube feeds for vent weaning -SVNs -repeat ABG -Pt has copious amounts of sputum and mucous plugs will do bedside bronchoscopy Bilateral strep pneumonia with ARDS -Continue Zosyn -D/c vanco - MRSA swab is neg -check urine strep legionella ag Acute renal failure -HOLD LASIX -IVF Atelectasis Morbid obesity with OHS and TERE JHON STEPHENSON DO Sep 23, 2018 06:27
[2018-09-23] MEDS: NS IV 1000 ML 1,000 ML IV SCH (06:41)
[2018-09-23] MEDS ORDERED: MIDAZOLAM 5 MG/5 ML (VERSED) VIAL IVP ONE (06:45)
--- NOTE | 2018-09-23 08:23 | Diagnostic Imaging Report ---
Indication: Right lower lobe pneumonia Comparison: 09/22/2018 Technique: Single radiograph of the chest dated 09/23/2018. Findings: Endotracheal tube, enteric catheter, and right IJ central venous catheter are again identified and stable. The cardiac silhouette is enlarged, though similar to the prior examination. Increasing central pulmonary vascular congestion. Decreased lung volumes when compared to the prior examination with increasing perihilar and bibasilar pulmonary opacities. No pneumothorax. Osseous structures appear stable. Impression: Worsening pulmonary vascular congestion with worsening interstitial edema and bibasilar opacities. Unchanged lines and tubes. Low lung volumes. Dictated by: Dictated on workstation # [id number]
[2018-09-23] MEDS: ENOXAPARIN 60 MG/0.6 ML (LOVENOX) SYR SC SCH ×2 (08:39→22:01)
[2018-09-23] MEDS: PANTOPRAZOLE 40 MG (PROTONIX) VIAL IV SCH (08:39)
[2018-09-23] MEDS: METOCLOPRAMIDE INJ 10 MG/2 ML (REGLAN) IVP SCH ×2 (08:39→22:01)
[2018-09-23] MEDS ORDERED: LIDOCAINE PF 2% 2 ML (XYLOCAINE) VIAL IJ ONE (10:11)
[2018-09-23] MEDS: fentaNYL INJECTION 1,250 MCG in NS (IVPB) 250 ML IV SCH (10:32)
[2018-09-23 11:56] LABS: ABG BASE EXCESS 11.1 MMOL/L (-2.5-2.5); ABG OXYGEN SATURATION 94 % (94-100); ABG PO2 66 MMHG (79-93); ABG TCO2 40.5 MMOL/L (21.0-31.0)
[2018-09-23 11:57] LABS: ABG PCO2 76 MMHG (35-45); ABG PH 7.31 (7.37-7.43); ALLENS TEST POSITIVE; INSPIRED O2 45%; PATIENT TEMP 98; VENTILATOR YES
[2018-09-23] MEDS ORDERED: DEXMEDETOMIDINE IV SCH (12:15)
[2018-09-23] MEDS ORDERED: NS IV SCH (12:15)
[2018-09-23] MEDS ORDERED: NS (IVPB) 50 ML ONE (12:33)
--- NOTE | 2018-09-23 12:39 | Progress Note-Hospitalist ---
Subjective HPI/CC On Admission Date Seen by Provider: Sep 23, 2018 Time Seen by Provider: 11:50 Subjective/Events-last exam Remains intubated Bradycardia resolved Trying to wean off ventilator Checked meds and labs Objective Exam Vital Signs Vital Signs Date Time Temp Pulse Resp B/P (MAP) Pulse Ox O2 Delivery O2 Flow Rate FiO2 09/23/18 12:06 101 26 178/58 (98) 90 Mechanical Ventilator 45.00 09/23/18 10:50 45 09/23/18 08:39 99.6 Capillary Refill : Less Than 3 Seconds General Appearance: No Apparent Distress, WD/WN, Chronically ill, Obese, Other (intubated) Respiratory: Chest Non Tender, Lungs Clear, Normal Breath Sounds, No Accessory Muscle Use, No Respiratory Distress Cardiovascular: Regular Rate, Rhythm, No Edema, No Gallop, No JVD, No Murmur, Normal Peripheral Pulses Results/Procedures Lab Laboratory Tests 09/23/18 03:12 Patient resulted labs reviewed. Assessment/Plan Assessment and Plan Assess & Plan/Chief Complaint Assessment: Ventilator-dependent respiratory failure Bilateral pneumonia Obesity Leukocytosis Anemia Plan: Appreciate Dr. Forrest's assistance Guarded prognosis Diagnosis/Problems Diagnosis/Problems (1) Bilateral pneumonia Status: Acute Qualifiers: Pneumonia type: due to unspecified organism Lung location: lower lobe of lung Qualified Codes: J18.1 - Lobar pneumonia, unspecified organism (2) Respiratory failure Status: Acute Qualifiers: Chronicity: acute Respiratory failure complication: hypoxia and hypercapnia Qualified Codes: J96.01 - Acute respiratory failure with hypoxia; J96.02 - Acute respiratory failure with hypercapnia (3) COPD exacerbation Status: Acute (4) Morbid obesity Status: Chronic (5) Hypertension Status: Chronic Qualifiers: Hypertension type: essential hypertension Qualified Codes: I10 - Essential (primary) hypertension Clinical Quality Measures DVT/VTE Risk/Contraindication: Risk Factor Score Per Nursin RFS Level Per Nursing on Admit: 4+=Very High JIGNESH WASHINGTON DO Sep 23, 2018 12:39
[2018-09-23] MEDS ORDERED: DEXMEDETOMIDINE INJECTION 1,000 MCG in NS (IVPB) 250 ML IV SCH (12:45)
--- NOTE | 2018-09-23 12:58 | Consultation-Cardiology ---
HPI-Cardiology Cardiology Consultation: Date of Consultation 09/23/18 Date of Admission Attending Physician Ricky Cleveland DO Admitting Physician Ricky Cleveland DO Consulting Physician Ozzie GALLARDO MD HPI: Time Seen by a Provider: 13:00 Chief Complaint: Bradycardia, tachycardia This is a 62-year-old gentleman who presented with bilateral streptococcus pneumonia, ARDS and was intubated a few days ago. He was extubated today. Patient also has morbid obesity, pickwickian syndrome, obstructive sleep apnea. Presented with acute kidney injury. BNP below 100. Patient also has history of mild to moderate CAD on coronary angiography done by Dr. Orta in 2010. Left heart catheterization also showed increased LVEDP suggesting at least moderate diastolic dysfunction. Echocardiogram done last year showed normal LV function with moderate to severe pulmonary hypertension with PA pressure of 60 mmHg. Patient developed bradycardia with heart rates in the 40s and sinus pauses with PACs on Precedex yesterday. Overnight patient developed irregular monomorphic wide complex tachycardia for 1 minute with normal hemodynamics. The patient is extubated and sitting propped up. He is still short of breath and a poor historian. I asked him if he is having any chest pain but he did not respond. Review of Systems-Cardiology Review of Systems Constitutional: As described under HPI; No As described under HPI, No no symptoms reported, No chills, No fever, No lightheadedness Eyes: No As described under HPI, No no symptoms reported, No blindness, No blurred vision, No contact lenses, No drainage, No decreased acuity, No foreign body sensation, No pain, No vision change Ears/Nose/Throat: No As described under HPI, No no symptoms reported, No chronic hearing loss, No ear discharge, No ear pain, No nasal drainage, No ulcerations Respiratory: No no symptoms reported; As described under HPI; No As described under HPI, No cough; orthopnea, shortness of breath; No SOB with excertion Cardiovascular: No no symptoms reported; As described under HPI; No As described under HPI, No chest pain, No edema, No irregular heart rate, No lightheadedness, No palpitations Gastrointestinal: No no symptoms reported, No As described under HPI, No abdomen distended, No abdominal pain, No blood streaked bowels, No constipation , No diarrhea, No nausea, No vomiting, No stool coloration changes Genitourinary: No As described under HPI, No burning, No dysuria, No discharge , No frequency, No flank pain, No hematuria, No urgency Skin: No rash, No skin related problems, No ulcerations Psychiatric/Neurological: No anxiety, No depression, No seizure, No focal weakness, No syncope Hematologic: No bleeding abnormalities [id number] Hx Patient Social History Marrital Status: Alcohol Use: Denies Use Recreational Drug Use: No (NONE X30 YRS) Smoking Status: Former Smoker Type Used: Cigarettes Recent Foreign Travel: No Recent Infectious Disease Expo: No Hospitalization with Isolation: Denies Immunizations Up To Date Tetanus Booster (TDap): Unknown Date of Pneumonia Vaccine: Sep 04, 2012 Date of Influenza Vaccine: Oct 16, 2017 Past Medical History PMH As described under Assessment. Family Medical History Family Medical History: He does not report a family history of early coraonary arery disease or sudden cardiac . He does not report a family history of stroke. Family History: Arthritis 19 MOTHER Cardiovascular disease 19 MOTHER FH: lung cancer 19 FATHER Hypertension 19 MOTHER No Family History of: AIDS Abdominal aortic aneurysm [employer]'s disease Alcoholism Alzheimer's disease Aphasia Asthma Cancer of mouth Cataracts Colon cancer Completed stroke Congenital disease Congenital heart disease Coronary thrombosis Cystic fibrosis Deafness or hearing loss Dementia Diabetes mellitus Drug abuse Dysphasia Fibrocystic disease of breast Gastroenteritis Glaucoma Headache disorder Hypercholesterolemia Infertility Kidney disease Myocardial infarction Neoplasm Not obtainable due to adoption Osteoporosis Parkinson's disease Prostate cancer Psychosocial problem Respiratory disorder Seizure disorder Severe allergy Thyroid disease Tuberculosis Visual disorder Allergies and Home Medications Allergies Coded Allergies: cephalexin (Verified Allergy, Unknown, 04/10/16) Home Medications Albuterol Sulfate 2.5 Mg/3 Ml Vial.neb, 2.5 MG IH TID PRN for SHORTNESS OF BREATH, (Reported) Amlodipine Besylate 5 Mg Tablet, 5 MG PO DAILY, (Reported) Atorvastatin Calcium 10 Mg Tablet, 10 MG PO DAILY, (Reported) Budesonide/Formoterol Fumarate 10.2 Gm Hfa.aer.ad, 2 PUFF INH BID, (Reported) Celecoxib 200 Mg Capsule, 200 MG PO BID, (Reported) Cholecalciferol (Vitamin D3) 1,000 Unit Capsule, 1,000 UNIT PO DAILY, (Reported) Cyanocobalamin/Cobamamide 1 Each Tab.subl, 5,000 MCG SL DAILY, (Reported) Duloxetine HCl 60 Mg Capsule.dr, 60 MG PO BID, (Reported) Furosemide 40 Mg Tablet, 40 MG PO BID, (Reported) Hydrocodone/Acetaminophen 1 Each Tablet, 1 TAB PO TID PRN for PAIN-MODERATE, ( Reported) Lisinopril 10 Mg Tablet, 10 MG PO DAILY, (Reported) Multivitamin/Iron/Folic Acid 1 Each Tablet, 1 TAB PO DAILY, (Reported) Pregabalin 150 Mg Capsule, 150 MG PO BID, (Reported) Ranitidine HCl 150 Mg Tablet, 150 MG PO BID, (Reported) Trazodone HCl 100 Mg Tablet, 100 MG PO HS, (Reported) Vitamin A Palmitate 10,000 Unit Capsule, 10,000 UNIT PO DAILY, (Reported) Patient Home Medication List Home Medication List Reviewed: Yes Physical Exam-Cardiology Physical Exam Vital Signs/I&O 09/23/18 09/23/18 09/23/18 09/23/18 02:30 03:00 04:00 04:27 Pulse 85 97 99 102 Resp 28 29 26 B/P (MAP) 151/67 (95) 133/68 (89) 157/71 Pulse Ox 93 91 91 O2 Delivery Mechanical Ventilator Mechanical Ventilator O2 Flow Rate 45.00 45.00 FiO2 45 09/23/18 09/23/18 09/23/18 09/23/18 04:27 04:30 04:33 05:00 Temp 99.2 Pulse 99 94 Resp 28 27 B/P (MAP) 179/65 (103) Pulse Ox 92 91 O2 Delivery Mechanical Ventilator Mechanical Ventilator O2 Flow Rate 45.00 FiO2 45 09/23/18 09/23/18 09/23/18 09/23/18 06:00 06:24 06:32 06:51 Pulse 79 72 Resp 27 40 28 B/P (MAP) 136/58 (84) Pulse Ox 92 92 O2 Delivery Mechanical Ventilator O2 Flow Rate 45.00 FiO2 45 45 09/23/18 09/23/18 09/23/18 09/23/18 07:00 07:00 08:00 08:00 Pulse 71 70 81 Resp 28 28 B/P (MAP) 146/58 (87) 182/72 (108) Pulse Ox 92 93 O2 Delivery Mechanical Ventilator Mechanical Ventilator Mechanical Ventilator O2 Flow Rate 45.00 45.00 09/23/18 09/23/18 09/23/18 09/23/18 08:39 09:00 10:00 10:50 Temp 99.6 Pulse 78 86 90 97 Resp 28 34 B/P (MAP) 169/68 163/54 (90) 158/52 (87) Pulse Ox 93 93 93 93 O2 Delivery Mechanical Ventilator Mechanical Ventilator Mechanical Ventilator O2 Flow Rate 45.00 45.00 45.00 FiO2 45 09/23/18 09/23/18 09/23/18 11:00 12:00 12:06 Pulse 99 101 Resp 26 26 B/P (MAP) 172/57 (95) 178/58 (98) Pulse Ox 90 90 O2 Delivery Mechanical Ventilator Mechanical Ventilator Mechanical Ventilator O2 Flow Rate 45.00 45.00 09/23/18 00:00 Intake Total 1265 ml Output Total 1475 ml Balance -210 ml Capillary Refill : Less Than 3 Seconds Constitutional: appears stated age, AAO x 3, apparent distress, well-developed , well-nourished HEENT: PERRL; No discharge; hearing is well preserved, oral hygience is good; No ulceration, No xanthelasmas are seen Neck: No carotid bruit; carotid pulses are 2 + bilaterally Respiratory: accessory muscle use, respiratory distress, rhonchi Cardiovascular: regular rate-rhythm; No irregularly irregular, No extra beats, No parasternal heave is noted, No JVD, No edema, No bradycardia, No tachycardia , No point of maximal impulse, No cardiac thrills are palpable; S1 and S2; No gallop/S3, No gallop/S4, No diastolic murmur, No systolic murmur, No friction rub, No click, No other Gastrointestinal: No tender, No soft, No round, No distended, No pulsatile mass , No organomegaly, No guarding, No rebound, No tenderness, No hernia, No mass, No audible bowel sounds, No abnormal bowel sounds, No abdominal bruits, No spleenomegaly, No other Rectal: deferred Extremities: No normal range of motion, No non-tender, No normal inspection, No pedal edema, No calf tenderness, No normal capillary refill, No pelvis stable , No calf tenderness, No inflammation, No pedal edema, No slow capillary refill , No swelling, No other, No abrasion, No clubbing, No cyanosis, No ecchymosis, No laceration, No no lower extremity edema bilateral, No significant edema, No tenderness, No wound Neurologic/Psychiatric: no motor/sensory deficits, power is 5/5 both on sides Skin: No normal color, No warm/dry, No cyanosis, No cool, No diaphoresis, No damp, No ecchymosis, No jaundice, No mottled, No pallor, No rash, No tattoos/ piercings, No ulcerations, No rash on exposed areas, No ulcerations on exposed areas, No other Data Review Labs Laboratory Tests 09/22/18 17:24: Glucometer 154H 09/23/18 03:12: White Blood Count 10.8, Red Blood Count 3.39L, Hemoglobin 10.0L, Hematocrit 33L , Mean Corpuscular Volume 98, Mean Corpuscular Hemoglobin 29, Mean Corpuscular Hemoglobin Concent 30L, Red Cell Distribution Width 16.4H, Platelet Count 215, Mean Platelet Volume 9.1, Neutrophils (%) (Auto) 77H, Lymphocytes (%) (Auto) 12 , Monocytes (%) (Auto) 10, Eosinophils (%) (Auto) 0, Basophils (%) (Auto) 0, Neutrophils # (Auto) 8.3H, Lymphocytes # (Auto) 1.3, Monocytes # (Auto) 1.1H, Eosinophils # (Auto) 0.0, Basophils # (Auto) 0.0, Blood Gas Puncture Site ART LINE, Blood Gas Patient Temperature 99.3, Arterial Blood pH 7.32*L, Arterial Blood Partial Pressure CO2 77*H, Arterial Blood Partial Pressure O2 67L, Arterial Blood HCO3 38H, Arterial Blood Total CO2 40.6H, Arterial Blood Oxygen Saturation 91L, Arterial Blood Base Excess 12.0H, Neil Test ART LINE, Blood Gas Ventilator Setting YES, Blood Gas Inspired Oxygen 45%, Sodium Level 146H, Potassium Level 4.4, Chloride Level 103, Carbon Dioxide Level 31, Anion Gap 12, Blood Urea Nitrogen 36H, Creatinine 0.94, Estimat Glomerular Filtration Rate > 60, BUN/Creatinine Ratio 38, Glucose Level 130H, Calcium Level 9.0, Phosphorus Level 3.6, Magnesium Level 2.2 09/23/18 11:49: Blood Gas Puncture Site LEFT RADIAL, Blood Gas Patient Temperature 98, Arterial Blood pH 7.31*L, Arterial Blood Partial Pressure CO2 76*H, Arterial Blood Partial Pressure O2 66L, Arterial Blood HCO3 38H, Arterial Blood Total CO2 40.5H , Arterial Blood Oxygen Saturation 94, Arterial Blood Base Excess 11.1H, Neil Test POSITIVE, Blood Gas Ventilator Setting YES, Blood Gas Inspired Oxygen 45% 09/23/18 12:27: Glucometer 128H Microbiology 09/19/18 Blood Culture - Preliminary, Resulted No growth 09/19/18 Mycobacterial Culture - Preliminary, Resulted 09/19/18 Urine Culture - Final, Complete NO GROWTH ECG Impression ECG Initial ECG Rhythm: Normal Sinus A/P-Cardiology Assessment/Admission Diagnosis ARDS, acute respiratory failure, Bilateral streptococcus pneumonia, Sinus bradycardia with PACs, Likely sustained monomorphic ventricular tachycardia, Mild to moderate CAD, Moderate diastolic dysfunction, Moderate severe pulmonary hypertension, Obstructive sleep apnea, Obesity hypoventilation syndrome Plan ARDS, acute respiratory failure, extubated today. ABG done at almost noontime still shows acidosis with hypercapnia defer to Dr. Forrest. Bilateral streptococcus pneumonia, on Zosyn. Sinus bradycardia with PACs, likely due to Precedex. However sinus node dysfunction cannot be ruled out. Likely sustained monomorphic ventricular tachycardia, patient had monomorphic regular hemodynamically stable wide-complex tachycardia with no discernible P waves. This is likely sustained ventricular tachycardia. Normal electrolytes with potassium 4.4 and magnesium 2.2. I will start the patient on amiodarone load with IV infusion. However cannot give beta blockers due to significant respiratory distress at this point in time. I will recommend an echocardiogram. Mild to moderate CAD, on coronary angiography in [address] Orta. May require another coronary angiography when more stable. Moderate diastolic dysfunction, BNP 88. Moderate severe pulmonary hypertension, likely due to diastolic dysfunction, obstructive sleep apnea. Obstructive sleep apnea, defer to Dr. Forrest. Obesity hypoventilation syndrome, Critically ill patient with complex medical management as described above. Patient has previously seen Dr. Orta as an inpatient. Thank you for your consultation. Please call me if you have any questions. Sal Gallardo MD, FACP, FACC, FSCAI, FHRS, CCDS Interventional Cardiology Cardiac Electrophysiology Vascular Medicine and Endovascular Interventions Clinical Quality Measures DVT/VTE Risk/Contraindication: Risk Factor Score Per Nursin RFS Level Per Nursing on Admit: 4+=Very High Ozzie GALLARDO MD Sep 23, 2018 12:58
[2018-09-23] MEDS: DEXMEDETOMIDINE INJECTION 200 MCG in NS (IVPB) 50 ML IV SCH ×2 (13:15→18:49)
--- NOTE | 2018-09-23 13:20 | NUR ---
PT EXTUBATED AND PLACED ON 10LPM OXYMASK TOLERATING WELL
[2018-09-23] MEDS ORDERED: D5W 100 ML IVPB 100 ML IV ONE (14:21)
[2018-09-23] MEDS ORDERED: AMIODARONE 150 MG/3 ML (CORDARONE) AMP IV ONE (14:21)
[2018-09-23] MEDS ORDERED: AMIODARONE FOR BOLUS 150 MG in D5W 100 ML IVPB 100 ML IV ONE (14:30)
[2018-09-23] MEDS: AMIODARONE INJECTION 450 MG in D5W IV SOLUTION (EXCEL) 250 ML IV SCH ×2 (14:53→22:53)
--- NOTE | 2018-09-23 18:47 | Diagnostic Imaging Report ---
INDICATION: Central line placement COMPARISON: 09/23/2018 at 4:57 a.m. FINDINGS: Single view of the chest demonstrates right central venous catheter likely in the right innominate jugular junction. There is no pneumothorax. The heart is prominent but stable. IMPRESSION: Right central venous catheter as described. No pneumothorax. Dictated by: Dictated on workstation # [id number]
[2018-09-23] MEDS: fentaNYL INJECTION 100 MCG/2 ML AMP IVP PRN ×2 (20:38→22:47)
[2018-09-23 20:52] LABS: ABG BASE EXCESS 12.1 MMOL/L (-2.5-2.5); ABG OXYGEN SATURATION 100 % (94-100); ABG PO2 175 MMHG (79-93); ABG TCO2 42.4 MMOL/L (21.0-31.0)
[2018-09-23 20:54] LABS: ABG PCO2 93 MMHG (35-45); ABG PH 7.25 (7.37-7.43); INSPIRED O2 100; VENTILATOR NO
[2018-09-23 22:14] LABS: ABG BASE EXCESS 11.8 MMOL/L (-2.5-2.5); ABG OXYGEN SATURATION 98 % (94-100); ABG PO2 90 MMHG (79-93); ABG TCO2 40.1 MMOL/L (21.0-31.0)
[2018-09-23 22:17] LABS: ABG PCO2 71 MMHG (35-45); ABG PH 7.34 (7.37-7.43); ALLENS TEST ARLTINE; INSPIRED O2 45% FIO2 BIPAP; VENTILATOR NO
[2018-09-24] VITALS (24 sets, daily range): BP systolic 100–203; BP diastolic 49–148
[2018-09-24] MEDS: methylPREDNISolone 125 MG (Solu-MEDROL) VIAL IVP SCH (00:19)
[2018-09-24] MEDS: DEXMEDETOMIDINE INJECTION 200 MCG in NS (IVPB) 50 ML IV SCH (00:19)
[2018-09-24] MEDS: PIPERACILLIN/TAZO 4.5 GM/NS 100 ML IV SCH ×6 (01:38→16:12)
[2018-09-24] MEDS: RT-ALBUTEROL/IPRATROPIUM 3 ML (DUONEB) VIAL INH SCH ×6 (02:18→22:10)
[2018-09-24] MEDS: fentaNYL INJECTION 100 MCG/2 ML AMP IVP PRN (02:27)
[2018-09-24] MEDS: NS IV 1000 ML 1,000 ML IV SCH (03:41)
[2018-09-24 03:49] LABS: BASOPHILS % (AUTO) 0 % (0-10); EOSINOPHILS % (AUTO) 0 % (0-10); HEMATOCRIT 34 % (40-54); HEMOGLOBIN 9.9 G/DL (13.3-17.7); LYMPHOCYTES # (AUTO) 0.7 X 10^3 (1.0-4.0); LYMPHOCYTES % (AUTO) 8 % (12-44); MEAN CORPUSCULAR HEMOGLOBIN 28 PG (25-34); MEAN CORPUSCULAR HGB CONC 29 G/DL (32-36); MEAN CORPUSCULAR VOLUME 98 FL (80-99); MEAN PLATELET VOLUME 9.1 FL (7.4-10.4); MONOCYTES # (AUTO) 0.3 X 10^3 (0.0-1.0); MONOCYTES % (AUTO) 3 % (0-12); NEUTROPHILS # (AUTO) 7.9 X 10^3 (1.8-7.8); NEUTROPHILS % (AUTO) 89 % (42-75); PLATELET COUNT 188 10^3/uL (130-400); RED BLOOD COUNT 3.49 10^6/uL (4.35-5.85); RED CELL DISTRIBUTION WIDTH 15.8 % (10.0-14.5); WHITE BLOOD COUNT 8.9 10^3/uL (4.3-11.0)
[2018-09-24 03:50] LABS: ABG BASE EXCESS 11.5 MMOL/L (-2.5-2.5); ABG OXYGEN SATURATION 98 % (94-100); ABG PCO2 68 MMHG (35-45); ABG PH 7.36 (7.37-7.43); ABG PO2 97 MMHG (79-93); ABG TCO2 39.5 MMOL/L (21.0-31.0); ALLENS TEST POSITIVE; INSPIRED O2 45% BIPAP; PATIENT TEMP 97.8; VENTILATOR NO
[2018-09-24 04:09] LABS: BUN/CREATININE RATIO 37; CALCIUM 9.4 MG/DL (8.5-10.1); CARBON DIOXIDE 33 MMOL/L (21-32); CHLORIDE 103 MMOL/L (98-107); CREATININE SERUM 0.84 MG/DL (0.60-1.30); GFR ESTIMATED > 60; GLUCOSE 135 MG/DL (70-105); MAGNESIUM 2.1 MG/DL (1.8-2.4); PHOSPHORUS 3.8 MG/DL (2.3-4.7); POTASSIUM 4.3 MMOL/L (3.6-5.0); SODIUM 146 MMOL/L (135-145)
[2018-09-24] MEDS ORDERED: IBUPROFEN 600 MG (MOTRIN) TAB PO PRN (04:45)
--- NOTE | 2018-09-24 04:57 | Pulmonary Progress Note ---
Subjective Time Seen by a Provider: 04:42 Subjective/Events-last exam PT was extubated yesterday after ET tube developed large leak around cuff. Pt is currently on BiPAP and is being watched closely. Sepsis Event Evaluation Height, Weight, BMI Height: 5'10.00" Weight: 350lbs. 3.0oz. 158.958100va; 42.18 BMI Method:Estimated Exam Exam Vital Signs Date Time Temp Pulse Resp B/P (MAP) Pulse Ox O2 Delivery O2 Flow Rate FiO2 09/24/18 04:00 58 22 148/75 (99) 97 NIV Bilevel 45.00 09/24/18 03:00 61 14 100/95 (97) 97 NIV Bilevel 45.00 09/24/18 02:18 57 18 98 45.00 09/24/18 02:00 51 20 122/96 (105) 99 NIV Bilevel 45.00 09/24/18 01:11 50 09/24/18 01:00 50 17 148/49 (82) 94 NIV Bilevel 45.00 09/24/18 00:14 58 25 96 45.00 09/24/18 00:00 97.1 09/24/18 00:00 61 22 159/54 (89) 93 NIV Bilevel 45.00 09/23/18 23:00 68 12 157/63 (94) 95 NIV Bilevel 45.00 09/23/18 22:31 56 18 96 45.00 09/23/18 22:00 60 26 121/58 (79) 96 NIV Bilevel 45.00 09/23/18 21:00 65 22 174/65 (101) 98 NIV Bilevel 45.00 09/23/18 20:12 81 30 93 35.00 09/23/18 20:00 76 20 121/68 (85) 97 NIV Bilevel 45.00 09/23/18 19:00 75 09/23/18 19:00 67 22 155/58 (90) 95 NIV Bilevel 45.00 09/23/18 18:46 65 25 100 45.00 09/23/18 18:00 98.6 70 24 105/83 (90) 98 NIV Bilevel 45.00 09/23/18 17:00 80 118/93 (101) 100 NIV Bilevel 50.00 09/23/18 16:00 NIV Bilevel 45 09/23/18 16:00 74 26 150/60 (90) 94 NIV Bilevel 50.00 09/23/18 15:00 73 28 156/56 (89) 98 NIV Bilevel 50.00 09/23/18 14:55 74 28 98 40.00 09/23/18 14:00 82 33 124/71 (88) 97 NIV Bilevel 50.00 09/23/18 13:07 87 09/23/18 13:00 86 26 176/60 (98) 95 NIV Bilevel 50.00 09/23/18 12:06 101 26 178/58 (98) 90 Mechanical Ventilator 45.00 09/23/18 12:00 Mechanical Ventilator 09/23/18 11:00 99 26 172/57 (95) 90 Mechanical Ventilator 45.00 09/23/18 10:50 97 34 93 45 09/23/18 10:00 90 158/52 (87) 93 Mechanical Ventilator 45.00 09/23/18 09:00 86 163/54 (90) 93 Mechanical Ventilator 45.00 09/23/18 08:39 99.6 78 28 169/68 93 Mechanical Ventilator 45.00 09/23/18 08:00 Mechanical Ventilator 09/23/18 08:00 81 28 182/72 (108) 93 Mechanical Ventilator 45.00 09/23/18 07:00 70 09/23/18 07:00 71 28 146/58 (87) 92 Mechanical Ventilator 45.00 09/23/18 06:51 72 28 92 45 09/23/18 06:32 45 09/23/18 06:24 40 09/23/18 06:00 79 27 136/58 (84) 92 Mechanical Ventilator 45.00 09/23/18 05:00 94 27 179/65 (103) 91 Mechanical Ventilator 45.00 I & O 09/24/18 07:00 Intake Total 1899 ml Output Total 2950 ml Balance -1051 ml Height & Weight Height: 5'10.00" Weight: 350lbs. 3.0oz. 158.541708ok; 42.18 BMI Method:Estimated General Appearance: WD/WN, Anxious, Chronically ill, Mild Distress, Obese, Other (on BiPAP) HEENT: PERRL/EOMI, Other (mmd) Neck: Normal Inspection, Non Tender Respiratory: Chest Non Tender, Accessory Muscle Use, Decreased Breath Sounds Cardiovascular: Regular Rate, Rhythm, No Edema, No Gallop, No JVD, No Murmur, Normal Peripheral Pulses Capillary Refill: Less Than 3 Seconds Gastrointestinal: non tender, soft Neurologic/Psychiatric: Alert, Oriented x3 Skin: Normal Color, Warm/Dry Results Lab Laboratory Tests 09/23/18 03:12 09/24/18 03:30 Assessment/Plan Assessment/Plan Acute on chronic respiratory failure/COPDAE extubated yesterday after ET tube developed large leak around cuff. -Noninvasive ventilation QHS and PRN -Vapotherm when not on BiPAP -D/c precedex -Escobar fentanyl to morphine -Solumedrol Q6 -SVNs Q4 -Pt has copious amounts of sputum and mucous plugs will do bedside bronchoscopy Bilateral strep pneumonia -Continue Zosyn - MRSA swab is neg HTN with SBP around 170 - Diastolic CHF -Monitor close Acute renal failure -IVF change to KVO Atelectasis -Increase activity -PT/OT Morbid obesity with OHS and TERE -Pt will need home vent to mask if possible PT's prognosis is overall poor. I discussed with patient code status and he states he would never want to be on vent again. Family is currently at bedside along with RT and RN. I will proceed with DNR/DNI orders based on patients wishes. PT wants to go home however is not ready yet unless he decides to proceed with hospice care. Will consult hospice for education. JHON STEPHENSON DO Sep 24, 2018 04:57
--- NOTE | 2018-09-24 05:07 | Pulmonary Procedures ---
Pulmonary Procedures Date of Procedure Date of Service: Sep 23, 2018 (Late entry for 09/23 today is 09/24 ) Bronch Bronchoscopy with bilateral transbronchial washes. Preop DX copious amounts of sputum Postop DX: same Complications: none After informed consent obtained and formal time out pt was sedated using Diprivan and Versed. Bronchoscope was advanced through the ET tube . 1% lidocaine was used to anesthetize balwinder, and left/right main stem bronchus. An anatomical tour was undertaken down to the segmental bronchi bilaterally. No endobronchial lesions noted. Bilateral washes were obtained and copious amounts of yellow sputum was suctioned. Pt tolerated procedure well. No complications noted. Stat CXR is pending. JHON STEPHENSON DO Sep 24, 2018 05:07
[2018-09-24] MEDS ORDERED: morphine INJ 4 MG/ML 1 ML (VIAL/SYRINGE) ONE (05:28)
[2018-09-24] MEDS: morphine INJ 4 MG/ML 1 ML (VIAL/SYRINGE) IVP PRN ×5 (05:53→21:55)
[2018-09-24] MEDS: methylPREDNISolone 40 MG/ML (Solu-MEDROL) VIAL IV SCH ×3 (06:08→18:23)
[2018-09-24] MEDS: hydrALAZINE (APESOLINE) 20 MG/ML VIAL IV SCH ×3 (06:08→18:23)
--- NOTE | 2018-09-24 07:39 | Progress Note (SOAP) ---
Subjective Time Seen by a Provider: 07:36 Subjective/Events-last exam Patient off the vent. Patient not having any respiratory distress. Patient is DO NOT RESUSCITATE. Patient to speak to hospice. Objective Exam Vital Signs Date Time Temp Pulse Resp B/P (MAP) Pulse Ox O2 Delivery O2 Flow Rate FiO2 09/24/18 06:00 66 14 134/75 (94) 95 Vapotherm 55.00 35.00 09/24/18 05:54 97 Vapotherm 35.00 55 09/24/18 05:00 54 18 119/99 (106) 91 NIV Bilevel 30.00 09/24/18 04:22 54 15 96 45.00 09/24/18 04:00 58 22 148/75 (99) 97 NIV Bilevel 45.00 09/24/18 04:00 97.7 09/24/18 03:00 61 14 100/95 (97) 97 NIV Bilevel 45.00 09/24/18 02:18 57 18 98 45.00 09/24/18 02:00 51 20 122/96 (105) 99 NIV Bilevel 45.00 09/24/18 01:11 50 09/24/18 01:00 50 17 148/49 (82) 94 NIV Bilevel 45.00 09/24/18 00:14 58 25 96 45.00 09/24/18 00:00 97.1 09/24/18 00:00 61 22 159/54 (89) 93 NIV Bilevel 45.00 09/23/18 23:00 68 12 157/63 (94) 95 NIV Bilevel 45.00 09/23/18 22:31 56 18 96 45.00 09/23/18 22:00 60 26 121/58 (79) 96 NIV Bilevel 45.00 09/23/18 21:00 65 22 174/65 (101) 98 NIV Bilevel 45.00 09/23/18 20:12 81 30 93 35.00 09/23/18 20:00 76 20 121/68 (85) 97 NIV Bilevel 45.00 09/23/18 19:00 75 09/23/18 19:00 67 22 155/58 (90) 95 NIV Bilevel 45.00 09/23/18 18:46 65 25 100 45.00 09/23/18 18:00 98.6 70 24 105/83 (90) 98 NIV Bilevel 45.00 09/23/18 17:00 80 118/93 (101) 100 NIV Bilevel 50.00 09/23/18 16:00 NIV Bilevel 45 09/23/18 16:00 74 26 150/60 (90) 94 NIV Bilevel 50.00 09/23/18 15:00 73 28 156/56 (89) 98 NIV Bilevel 50.00 09/23/18 14:55 74 28 98 40.00 09/23/18 14:00 82 33 124/71 (88) 97 NIV Bilevel 50.00 09/23/18 13:07 87 09/23/18 13:00 86 26 176/60 (98) 95 NIV Bilevel 50.00 09/23/18 12:06 101 26 178/58 (98) 90 Mechanical Ventilator 45.00 09/23/18 12:00 Mechanical Ventilator 09/23/18 11:00 99 26 172/57 (95) 90 Mechanical Ventilator 45.00 09/23/18 10:50 97 34 93 45 09/23/18 10:00 90 158/52 (87) 93 Mechanical Ventilator 45.00 09/23/18 09:00 86 163/54 (90) 93 Mechanical Ventilator 45.00 09/23/18 08:39 99.6 78 28 169/68 93 Mechanical Ventilator 45.00 09/23/18 08:00 Mechanical Ventilator 09/23/18 08:00 81 28 182/72 (108) 93 Mechanical Ventilator 45.00 I & O 09/24/18 07:00 Intake Total 2539 ml Output Total 3325 ml Balance -786 ml Capillary Refill : Less Than 3 Seconds General Appearance: No Apparent Distress, WD/WN HEENT: Normal ENT Inspection Neck: Normal Inspection Respiratory: Decreased Breath Sounds Cardiovascular: Regular Rate, Rhythm Gastrointestinal: non tender, soft Results Lab Laboratory Tests 09/24/18 03:30 Laboratory Tests 09/23/18 11:49: Blood Gas Puncture Site LEFT RADIAL, Blood Gas Patient Temperature 98, Arterial Blood pH 7.31*L, Arterial Blood Partial Pressure CO2 76*H, Arterial Blood Partial Pressure O2 66L, Arterial Blood HCO3 38H, Arterial Blood Total CO2 40.5H , Arterial Blood Oxygen Saturation 94, Arterial Blood Base Excess 11.1H, Neil Test POSITIVE, Blood Gas Ventilator Setting YES, Blood Gas Inspired Oxygen 45% 09/23/18 12:27: Glucometer 128H 09/23/18 20:35: Blood Gas Puncture Site ARTLINE, Blood Gas Patient Temperature 98.0, Arterial Blood pH 7.25*L, Arterial Blood Partial Pressure CO2 93*H, Arterial Blood Partial Pressure O2 175H, Arterial Blood HCO3 40H, Arterial Blood Total CO2 42.4H, Arterial Blood Oxygen Saturation 100, Arterial Blood Base Excess 12.1H, Neil Test NA, Blood Gas Ventilator Setting NO, Blood Gas Inspired Oxygen 100 09/23/18 22:00: Blood Gas Puncture Site LEFT ARTLINE, Blood Gas Patient Temperature 98.0, Arterial Blood pH 7.34*L, Arterial Blood Partial Pressure CO2 71*H, Arterial Blood Partial Pressure O2 90, Arterial Blood HCO3 38H, Arterial Blood Total CO2 40.1H, Arterial Blood Oxygen Saturation 98, Arterial Blood Base Excess 11.8H, Neil Test ARLTINE, Blood Gas Ventilator Setting NO, Blood Gas Inspired Oxygen 45% FIO2 BIPAP 09/24/18 03:30: White Blood Count 8.9, Red Blood Count 3.49L, Hemoglobin 9.9L, Hematocrit 34L, Mean Corpuscular Volume 98, Mean Corpuscular Hemoglobin 28, Mean Corpuscular Hemoglobin Concent 29L, Red Cell Distribution Width 15.8H, Platelet Count 188, Mean Platelet Volume 9.1, Neutrophils (%) (Auto) 89H, Lymphocytes (%) (Auto) 8L , Monocytes (%) (Auto) 3, Eosinophils (%) (Auto) 0, Basophils (%) (Auto) 0, Neutrophils # (Auto) 7.9H, Lymphocytes # (Auto) 0.7L, Monocytes # (Auto) 0.3, Eosinophils # (Auto) 0.0, Basophils # (Auto) 0.0, Blood Gas Puncture Site L ART LINE, Blood Gas Patient Temperature 97.8, Arterial Blood pH 7.36L, Arterial Blood Partial Pressure CO2 68H, Arterial Blood Partial Pressure O2 97H, Arterial Blood HCO3 37H, Arterial Blood Total CO2 39.5H, Arterial Blood Oxygen Saturation 98, Arterial Blood Base Excess 11.5H, Neil Test POSITIVE, Blood Gas Ventilator Setting NO, Blood Gas Inspired Oxygen 45% BIPAP, Sodium Level 146H, Potassium Level 4.3, Chloride Level 103, Carbon Dioxide Level 33H, Anion Gap 10 , Blood Urea Nitrogen 31H, Creatinine 0.84, Estimat Glomerular Filtration Rate > 60, BUN/Creatinine Ratio 37, Glucose Level 135H, Calcium Level 9.4, Phosphorus Level 3.8, Magnesium Level 2.1 Microbiology 09/19/18 Blood Culture - Preliminary, Resulted No growth 09/23/18 Gram Stain - Final, Resulted 09/23/18 Bronchial Culture, Resulted Pending 09/23/18 Fungal Culture 1, Resulted Pending 09/19/18 Urine Culture - Final, Complete NO GROWTH Assessment/Plan Assessment/Plan Assess & Plan/Chief Complaint acute and chronic respiratory failure. Bilateral pneumonia with acute respiratory distress syndrome. Acute renal failure. Hyperkalemia. Morbid obesity. Obstructive sleep apnea.. . 09/21/18. Acute and chronic respiratory failure. Bilateral pneumonia. Lungs. Renal insufficiency back to normal area Hypokalemia. Morbid obesity. Obstructive sleep apnea.. . 09/24/18. Pneumonia due to strep pneumonia. Radha chronic respiratory failure. Renal insufficiency resolved. Morbid obesity. Obstructive sleep apnea. Patient complaining of back pain. Patient now a DO NOT RESUSCITATE. Patient considering hospice Clinical Quality Measures Admission Status Admission Dx Acute respiratory failure with hypoxia. Hypercapnia. Severe COPD. Coronary artery disease. hyPretension DVT/VTE Risk/Contraindication: Risk Factor Score Per Nursin RFS Level Per Nursing on Admit: 4+=Very High DANITA TEE DO Sep 24, 2018 07:39
--- NOTE | 2018-09-24 08:21 | Diagnostic Imaging Report ---
Indication: Intubation. Comparison: 09/23/2018. Findings: Stable right IJ central venous catheter with tip in the upper SVC. Perihilar and basilar heterogeneous opacities are unchanged. Potential trace pleural effusions are similar. No pneumothorax. Stable enlargement of cardiac silhouette. Impression: 1. Stable support devices. 2. No change in perihilar heterogenous opacities and potential trace pleural effusions. Dictated by: Dictated on workstation # [id number]
--- NOTE | 2018-09-24 08:33 | NUR ---
09/23/2018 at 2010 this RN called EICU to report decreased mental status, increased restlessness, and increased work of breathing. Orders received at this time. 09/23/2018 at 2055 this RN called EICU with ABG results. New orders received at this time. 09/23/2018 at 2219 this RN called EICU with ABG results. No new orders. 09/23/2018 at 2342 this RN called EICU regarding pt's pain and restlessness. Orders received to use ordered Precedex.
--- NOTE | 2018-09-24 08:57 | Progress Note-Cardiology ---
Cardiology SOAP Progress Note Objective: I&O/Vital Signs 09/24/18 09/24/18 09/24/18 09/25/18 20:00 20:00 22:12 00:00 Temp 97.6 97.7 Pulse 78 75 Resp 20 22 B/P (MAP) 173/89 (117) 168/82 (110) Pulse Ox 92 91 94 O2 Delivery Vapotherm Vapotherm Vapotherm Vapotherm O2 Flow Rate 55.00 25.00 25.00 55.00 25.00 25.00 FiO2 55 55 09/25/18 09/25/18 09/25/18 09/25/18 00:57 01:46 04:00 04:10 Temp 98.9 Pulse 74 82 75 Resp 26 26 B/P (MAP) 182/98 (126) Pulse Ox 94 96 97 O2 Delivery Vapotherm Vapotherm O2 Flow Rate 25.00 25.00 60.00 25.00 FiO2 55 09/25/18 09/25/18 06:00 06:38 Pulse 64 64 Resp 20 B/P (MAP) 160/77 (104) Pulse Ox 99 O2 Flow Rate 60.00 09/25/18 00:00 Intake Total 759 ml Output Total 1225 ml Balance -466 ml Weight (Pounds): 355 Weight (Ounces): 3.0 Weight (Calculated Kilograms): 161.278328 Constitutional: appears stated age, AAO x 3, apparent distress, well-developed , well-nourished Respiratory: accessory muscle use, respiratory distress, rhonchi Cardiovascular: regular rate-rhythm, S1 and S2 Gastrointestional: audible bowel sounds Neurologic/Psychiatric: no motor/sensory deficits, power is 5/5 both on sides Skin: No rash, No ulcerations Results/Procedures: Labs Microbiology 09/19/18 Blood Culture - Preliminary, Resulted No growth 09/23/18 Gram Stain - Final, Resulted 09/23/18 Bronchial Culture - Preliminary, Resulted YEAST Usual upper respiratory analilia 09/23/18 Fungal Culture 1, Resulted Pending 09/19/18 Urine Culture - Final, Complete NO GROWTH A/P: Assessment: ARDS, acute respiratory failure, extubated - management per pulmonary services Bilateral streptococcus pneumonia, on Zosyn. Sinus bradycardia with PACs, likely due to Precedex. Likely sustained monomorphic ventricular tachycardia, patient had monomorphic regular hemodynamically stable wide-complex tachycardia with no discernible P waves. This is likely sustained ventricular tachycardia per Dr. Gallardo Mild to moderate CAD, on coronary angiography in [address] Orta Moderate diastolic dysfunction Moderate severe pulmonary hypertension, likely due to diastolic dysfunction, obstructive sleep apnea. Obstructive sleep apnea - management per Dr. Forrest Obesity hypoventilation syndrome, PIEDAD GOEL Sep 24, 2018 08:57
--- NOTE | 2018-09-24 09:15 | NUR ---
PT REPORTS HIS "HEART HURTS", DR SERVIN ON FLOOR AND INFORMED. EKG OBTAINED AND REVIEWED BY . NO NEW ORDERS RECEIVED.
--- NOTE | 2018-09-24 09:21 | Progress Note-Cardiology ---
Cardiology SOAP Progress Note Subjective: Shortness of breath modestly improved compared to time of admission Denies cp Denies palp or syncope or leg swelling Shortness of breath started several days prior to admission Objective: I&O/Vital Signs 09/23/18 09/23/18 09/23/18 09/24/18 22:00 22:31 23:00 00:00 Pulse 60 56 68 Resp 26 18 12 B/P (MAP) 121/58 (79) 157/63 (94) Pulse Ox 96 96 95 O2 Delivery NIV Bilevel NIV Bilevel NIV Bilevel O2 Flow Rate 45.00 45.00 45.00 FiO2 45 09/24/18 09/24/18 09/24/18 09/24/18 00:00 00:00 00:14 01:00 Temp 97.1 Pulse 61 58 50 Resp 22 25 17 B/P (MAP) 159/54 (89) 148/49 (82) Pulse Ox 93 96 94 O2 Delivery NIV Bilevel NIV Bilevel O2 Flow Rate 45.00 45.00 45.00 09/24/18 09/24/18 09/24/18 09/24/18 01:11 02:00 02:18 03:00 Pulse 50 51 57 61 Resp 20 18 14 B/P (MAP) 122/96 (105) 100/95 (97) Pulse Ox 99 98 97 O2 Delivery NIV Bilevel NIV Bilevel O2 Flow Rate 45.00 45.00 45.00 09/24/18 09/24/18 09/24/18 09/24/18 04:00 04:00 04:00 04:22 Temp 97.7 Pulse 58 54 Resp 22 15 B/P (MAP) 148/75 (99) Pulse Ox 97 96 O2 Delivery NIV Bilevel NIV Bilevel O2 Flow Rate 45.00 45.00 FiO2 45 09/24/18 09/24/18 09/24/18 09/24/18 05:00 05:54 06:00 07:44 Temp 97.7 Pulse 54 66 Resp 18 14 B/P (MAP) 119/99 (106) 134/75 (94) Pulse Ox 91 97 95 O2 Delivery NIV Bilevel Vapotherm Vapotherm O2 Flow Rate 30.00 35.00 55.00 35.00 FiO2 55 09/24/18 08:23 O2 Delivery Vapotherm O2 Flow Rate 35.00 FiO2 55 09/24/18 00:00 Intake Total 759 ml Output Total 1750 ml Balance -991 ml Weight (Pounds): 355 Weight (Ounces): 3.0 Weight (Calculated Kilograms): 161.818147 Constitutional: appears stated age, AAO x 3, apparent distress, well-developed , well-nourished Respiratory: No accessory muscle use; rhonchi, other (appears moderately short of breath, abdomino-thoracic respiration, fair air entry, prolonged exp phase, exp wheezes and rhonchi) Cardiovascular: regular rate-rhythm, S1 and S2, systolic murmur (soft LAWRENCE at card base) Gastrointestional: audible bowel sounds Extremities: No clubbing, No cyanosis, No significant edema Neurologic/Psychiatric: oriented x 3, grossly intact, power is 5/5 both on sides Skin: No rash, No ulcerations Results/Procedures: Labs Laboratory Tests 09/23/18 11:49: Blood Gas Puncture Site LEFT RADIAL, Blood Gas Patient Temperature 98, Arterial Blood pH 7.31*L, Arterial Blood Partial Pressure CO2 76*H, Arterial Blood Partial Pressure O2 66L, Arterial Blood HCO3 38H, Arterial Blood Total CO2 40.5H , Arterial Blood Oxygen Saturation 94, Arterial Blood Base Excess 11.1H, Neil Test POSITIVE, Blood Gas Ventilator Setting YES, Blood Gas Inspired Oxygen 45% 09/23/18 12:27: Glucometer 128H 09/23/18 20:35: Blood Gas Puncture Site ARTLINE, Blood Gas Patient Temperature 98.0, Arterial Blood pH 7.25*L, Arterial Blood Partial Pressure CO2 93*H, Arterial Blood Partial Pressure O2 175H, Arterial Blood HCO3 40H, Arterial Blood Total CO2 42.4H, Arterial Blood Oxygen Saturation 100, Arterial Blood Base Excess 12.1H, Neil Test NA, Blood Gas Ventilator Setting NO, Blood Gas Inspired Oxygen 100 09/23/18 22:00: Blood Gas Puncture Site LEFT ARTLINE, Blood Gas Patient Temperature 98.0, Arterial Blood pH 7.34*L, Arterial Blood Partial Pressure CO2 71*H, Arterial Blood Partial Pressure O2 90, Arterial Blood HCO3 38H, Arterial Blood Total CO2 40.1H, Arterial Blood Oxygen Saturation 98, Arterial Blood Base Excess 11.8H, Neil Test ARLTINE, Blood Gas Ventilator Setting NO, Blood Gas Inspired Oxygen 45% FIO2 BIPAP 09/24/18 03:30: White Blood Count 8.9, Red Blood Count 3.49L, Hemoglobin 9.9L, Hematocrit 34L, Mean Corpuscular Volume 98, Mean Corpuscular Hemoglobin 28, Mean Corpuscular Hemoglobin Concent 29L, Red Cell Distribution Width 15.8H, Platelet Count 188, Mean Platelet Volume 9.1, Neutrophils (%) (Auto) 89H, Lymphocytes (%) (Auto) 8L , Monocytes (%) (Auto) 3, Eosinophils (%) (Auto) 0, Basophils (%) (Auto) 0, Neutrophils # (Auto) 7.9H, Lymphocytes # (Auto) 0.7L, Monocytes # (Auto) 0.3, Eosinophils # (Auto) 0.0, Basophils # (Auto) 0.0, Blood Gas Puncture Site L ART LINE, Blood Gas Patient Temperature 97.8, Arterial Blood pH 7.36L, Arterial Blood Partial Pressure CO2 68H, Arterial Blood Partial Pressure O2 97H, Arterial Blood HCO3 37H, Arterial Blood Total CO2 39.5H, Arterial Blood Oxygen Saturation 98, Arterial Blood Base Excess 11.5H, Neil Test POSITIVE, Blood Gas Ventilator Setting NO, Blood Gas Inspired Oxygen 45% BIPAP, Sodium Level 146H, Potassium Level 4.3, Chloride Level 103, Carbon Dioxide Level 33H, Anion Gap 10 , Blood Urea Nitrogen 31H, Creatinine 0.84, Estimat Glomerular Filtration Rate > 60, BUN/Creatinine Ratio 37, Glucose Level 135H, Calcium Level 9.4, Phosphorus Level 3.8, Magnesium Level 2.1, B-Type Natriuretic Peptide 384.3H Microbiology 09/19/18 Blood Culture - Preliminary, Resulted No growth 09/23/18 Gram Stain - Final, Resulted 09/23/18 Bronchial Culture, Resulted Pending 09/23/18 Fungal Culture 1, Resulted Pending 09/19/18 Urine Culture - Final, Complete NO GROWTH Laboratory Tests 09/23/18 03:12 09/24/18 03:30 A/P: Assessment: Ac resp failure due to ARDS due to streptococcus pneumonia Sinus bradycardia with PACs, likely due to Precedex. Wide-complex sustained (approx 1 min) tachycardia at approx 110 bpm on 09/23/18 Sinus node dysfunction: presentation with PAF in 2015 that was treated with elec cardioversion; sinus mateo with PVCs during this hosp suspected to be due to Precedex Mild to moderate CAD on coronary angiography in 2010 Obesity with obesity-hypoventilation, TERE, and pulm hypertension. PASP was 60- 65 mmHg on echo of 2015 Echo of Oct 2017 showed LVEF 55-60% Plan: * Complex management due to multiple comorbidities * Amio for prevention of arrhythmia * Apixaban for stroke prophylaxis * Repeat echo * Card cath when more stable from resp standpoint * Monitor labs * I spoke with him in detail and answered CV-related questions * I reviewed his hosp records and discussed his case with PATSY Soto MD FACP FACC CCDS Sep 24, 2018 09:21
[2018-09-24] MEDS ORDERED: APIXABAN 5 MG (ELIQUIS) TABLET PO ONE (09:30)
[2018-09-24] MEDS ORDERED: ASPIRIN E.C. 81 MG (ECOTRIN) TAB PO ONE (09:45)
[2018-09-24] MEDS: METOCLOPRAMIDE INJ 10 MG/2 ML (REGLAN) IVP SCH ×2 (09:55→21:55)
[2018-09-24] MEDS: PANTOPRAZOLE 40 MG (PROTONIX) VIAL IV SCH (09:55)
--- NOTE | 2018-09-24 11:25 | NUR ---
PT PULLED OUT LEFT RADIAL ART LINE WHILE MOVING AROUND IN BED. DRESSING APPLIED TO SITE. NIBP CUFF APPLIED TO PT.
--- NOTE | 2018-09-24 12:52 | NUR ---
PALLIATIVE CARE Rn in to see the patient..he is sitting up in bed with Vapotherm on (unknown settings) and is having work of breathing, with cough. He would like to get into the chair to sit up as it helps the pain in his back. He and family report that he has constant pain in his back and due to size he is not a surgical candidate. They all report that Dr. Cleveland has progressively cut his pain medication and it is not covering his needs. Discussion was had regarding Hospice and how this will help him in the home. They report and I remember that they had hospice for patient's . They had [facility] for her and had a great experience. When appropriate they would like to utilize their services again. However, the family is asking about going to [place], and we talked about [facility]. I asked Dr. Forrest and he approves and agrees that this would be a good idea for him. I talked with Stuart at [facility] and is expecting the referral. Dr. Cleveland was made aware by way of message left at office.
--- NOTE | 2018-09-24 13:09 | NUR ---
OK FOR PT TO TRANSFER TO [address] STEPHENSON IF OK W/ CARDIOLOGY.
--- NOTE | 2018-09-24 13:12 | NUR ---
DR SERVIN PAGED REGARDING TRANSFER TO FLOOR AND AMIODARONE GTT.
--- NOTE | 2018-09-24 13:45 | NUR ---
DR SERVIN PAGED AT THIS TIME.
--- NOTE | 2018-09-24 14:06 | NUR ---
PIEDAD GOEL APRN NOTIFIED OF PREVIOUS NOTES. PIEDAD PARK TO TALK TO DR SERVIN AND CALL THIS RN BACK.
--- NOTE | 2018-09-24 14:15 | Diagnostic Imaging Report ---
INDICATION: PICC line placement. EXAMINATION: Portable chest at 1:22 PM. FINDINGS: The right IJ central tip projects over the SVC. Right upper extremity PICC line tip projects over the SVC. The heart is enlarged. There is some alveolar infiltrate at the lung bases bilaterally which could be edema. There is some apical vascular redistribution. IMPRESSION: Probable pulmonary venous hypertension with some basilar pulmonary edema versus infiltrate. Dictated by: Dictated on workstation # [id number]
--- NOTE | 2018-09-24 14:17 | NUR ---
OK TO USE PICC LINE PER ARIADNA PICC RN.
--- NOTE | 2018-09-24 14:30 | Occ Therapy Progress Note ---
Therapy Progress Note OT order received, chart reviewed. Have checked on pt. several times today. Pt. pulled a line requiring medical intervention, and has also had RT in. Pt. on vapotherm, and also spoke with palliative care today. Pt. unavailable for therapy at times checked. Will check back in a.m. 1430 1, visit Monitored during day to perform OT eval. SHELL SHARMA OT Sep 24, 2018 14:30
--- NOTE | 2018-09-24 14:44 | NUR ---
PER DR SERVIN, GIVE PO AMIODARONE NOW AND DC GTT WHEN IV COMPLETE. OK FOR PT TO BE 4TH FLOOR STATUS.
[2018-09-24] MEDS ORDERED: AMIODARONE 200 MG (CORDARONE) TAB PO NR (14:45)
--- NOTE | 2018-09-24 15:04 | Physical Therapy Evaluation ---
PT Evaluation-General Medical Diagnosis Admission Date Sep 19, 2018 at 08:47 Medical Diagnosis: B pneumonia Onset Date: Sep 19, 2018 Therapy Diagnosis Therapy Diagnosis: weakness, decreased mobility, gait deviation Height/Weight Height (Feet): 5 Height (Inches): 10.00 Weight (Pounds): 355 Weight (Ounces): 3.0 Precautions Precautions/Isolations: Fall Prevention, Standard Precautions, Pressure Ulcer Weight Bear Status Right Lower Extremity: Right Full Weight Bearing Left Lower Extremity: Left Full Weight Bearing Referral Physician: Ramana Forrest Reason for Referral: Evaluation/Treatment Medical History Pertinent Medical History: COPD, DM, HTN, Smoking Current History EMS secondray to SOB on CPap and SAO2 47%/very lethargic Reviewed History: Yes Social History Home: Single Level Current Living Status: Spouse Prior/Core FIM Prior Level of Function Therapy Code Descriptions/Definitions Functional [place] Measure: 0=Not Assessed/NA 4=Minimal Assistance 1=Total Assistance 5=Supervision or Setup 2=Maximal Assistance 6=Modified [place] 3=Moderate Assistance 7=Complete [place] Therapy Quality Codes: 6 Independent with activity with or without an assistive device 5 Patient requires set up or clean up by helper. Patient completes activity by themselves 4 Supervision or touching assist (CGA). Mead provide cues , steadying assist 3 The helper provides less than half the effort to complete the activity 2 The helper provides more than half the effort to complete the activity 1 Dependent. The helper does all the effort to complete an activity 7 Patient refused to complete or attempt activity 9 The patient did not perform the activity before the current illness or injury 88 Not attempted due to Medical conditions or safety concerns Functional Abilities and Goals: Independent: Patient completed the activities by him/herself, with or without an assistive device, with no assistance from a helper. Needed Some Help: Patient needed partial assistance from another person to complete activities. Dependent: A helper completed the activities for the patient. Unknown: Not Applicable: Bed Mobility: 6 Transfers (B,C,W/C) (FIM): 6 Gait: 7 Indoor Mobility (Ambulation): Independent Stairs: Independent PT Evaluation-Current Subjective Pt was in bed with family in room. Pt agrees to PT. States that he wants to get up and into chair. Pain Numeric Pain Scale: 0-No Pain Location: No Pain Reported Pt/Family Goals Pt to return home with spouse. Objective Patient Orientation: Person, Normal For Age Problem Solving: Fair Attachments: Oxygen (vasotherm), Ac Catheter, IV ROM/Strength ROM Lower Extremities WNL Strength Lower Extremities WNL Integumentary/Posture Bowel Incontinence: No Bladder Incontinence: Ac Cath Neuromuscular (Tone, Coordination, Reflexes) grossly intact Sensory Vision: Functional Hearing: Functional Sensation Right Lower Extremit: Impaired Sensation Left Lower Extremity: Impaired Transfers Therapy Code Descriptions/Definitions Functional [place] Measure: 0=Not Assessed/NA 4=Minimal Assistance 1=Total Assistance 5=Supervision or Setup 2=Maximal Assistance 6=Modified [place] 3=Moderate Assistance 7=Complete [place] Transfers (B, C, W/C) (FIM): 3 Scootin Supine to/from Sit: 3 Sit to/from Stand: 3 Gait Mode of Locomotion: Walk Anticipated Mode of Locomotion: Walk Gait (FIM): 1 Distance (FIM): 1=up to 49 ft Distance: 5' Gait Level of Assist: 3 Gait Persons Needed: 2 Gait Assistive Device: FWW Balance Sitting Static: Good Sitting Dynamic: Fair Standing Static: Fair Standing Dynamic: Fair Assessment/Needs Pt was able to get from supine to sitting EOB with mod A. Pt able to sit<>stand with mod A x2 from EOB to FWW. Pt able to go from bed to recliner (5') with mod A x2. Pt is now in recliner with all needs met. Takes pt max effort to perform activity. Rehab Potential: Guarded Post Rehab Potential-Barriers: Health Status, Obesity PT Short Term Goals Short Term Goals Time Frame: Oct 01, 2018 Transfers (B,C,W/C) (FIM): 5 Gait (FIM): 1 Distance (FIM): 1=up to 49 ft Gait Distance Comment: 25' Gait Level of Assist: 4 Gait Assistive Device: FWW PT Nursing Home Goals Fire Investigation Manager Goals PT Fire Investigation Manager Goals Time Frame: Oct 06, 2018 Transfers (B,C,W/C) (FIM): 4 Gait (FIM): 2 Gait distance (FIM): 7=968-34 ft Distance: 100' Gait Level of Assist: 4 Gait Assistive Device: FWW PT Plan Problem List Problem List: Activity Tolerance, Functional Strength, Safety, Balance, Gait, Transfer, Bed Mobility Treatment/Plan Treatment Plan: Continue Plan of Care Treatment Plan: Bed Mobility, Education, Functional Activity Sneha, Functional Strength, Gait, Safety, Therapeutic Exercise, Transfers Treatment Duration: Oct 13, 2018 Frequency: 6 times per week Estimated Hrs Per Day: .25 hour per day Patient and/or Family Agrees t: Yes Discharge Recommendations Therapy D/C Recommendations: Home w/ Family Support, [facility] (TCU/NH) Equpiment Recommendations-D/C: Front Wheeled Walker Time/GCodes Time In: 1410 Time Out: 1433 Total Billed Treatment Time: 23 [facility] MO[facility] Sep 24, 2018 15:04
[2018-09-24] MEDS ORDERED: SIMETHICONE 80 MG (MYLICON) CHEW PO PRN (15:45)
[2018-09-24] MEDS: APIXABAN 5 MG (ELIQUIS) TABLET PO SCH (21:56)
[2018-09-24] MEDS: AMIODARONE 200 MG (CORDARONE) TAB PO SCH (21:56)
[2018-09-25] VITALS: BP 168/82
[2018-09-25] MEDS: ACETAMINOPHEN 325 MG TABLET PO PRN ×2 (00:50→11:40)
[2018-09-25] MEDS: hydrALAZINE (APESOLINE) 20 MG/ML VIAL IV SCH ×3 (00:50→12:50)
[2018-09-25] MEDS: methylPREDNISolone 40 MG/ML (Solu-MEDROL) VIAL IV SCH ×2 (00:50→05:50)
[2018-09-25] MEDS: morphine INJ 4 MG/ML 1 ML (VIAL/SYRINGE) IVP PRN ×3 (00:51→12:49)
[2018-09-25] MEDS: PIPERACILLIN/TAZO 4.5 GM/NS 100 ML IV SCH ×4 (01:42→08:41)
[2018-09-25] MEDS: RT-ALBUTEROL/IPRATROPIUM 3 ML (DUONEB) VIAL INH SCH ×4 (01:44→14:23)
[2018-09-25 04:00] VITALS: BP 182/98
[2018-09-25 06:00] VITALS: BP 160/77
[2018-09-25] MEDS ORDERED: PANTOPRAZOLE 40 MG (PROTONIX) TAB PO SCH (06:30)
--- NOTE | 2018-09-25 07:23 | Pulmonary Progress Note ---
Subjective Time Seen by a Provider: 07:22 Subjective/Events-last exam Pt appears to be doing better. Sepsis Event Evaluation Height, Weight, BMI Height: 5'10.00" Weight: 359lbs. 0.0oz. [id number]; 42.18 BMI Method:Estimated Exam Exam Vital Signs Date Time Temp Pulse Resp B/P (MAP) Pulse Ox O2 Delivery O2 Flow Rate FiO2 09/25/18 06:38 64 20 99 60.00 09/25/18 06:00 64 160/77 (104) 09/25/18 04:10 75 26 97 60.00 09/25/18 04:00 98.9 82 26 182/98 (126) 96 Vapotherm 25.00 25.00 09/25/18 01:46 94 Vapotherm 25.00 55 09/25/18 00:57 74 09/25/18 00:00 97.7 75 22 168/82 (110) 94 Vapotherm 55.00 25.00 09/24/18 22:12 91 Vapotherm 25.00 55 09/24/18 20:00 Vapotherm 25.00 55 09/24/18 20:00 97.6 78 20 173/89 (117) 92 Vapotherm 55.00 25.00 09/24/18 19:00 84 09/24/18 18:14 94 Vapotherm 25.00 55 09/24/18 18:00 79 20 157/91 (113) 94 Vapotherm 55.00 25.00 09/24/18 17:00 74 22 157/71 (99) 90 Vapotherm 55.00 25.00 09/24/18 16:00 Vapotherm 25.00 55 09/24/18 16:00 73 21 178/91 (120) 94 Vapotherm 55.00 25.00 09/24/18 15:08 98.3 09/24/18 15:00 83 24 188/93 (124) 90 Vapotherm 55.00 25.00 09/24/18 14:09 92 Vapotherm 25.00 55 09/24/18 14:00 85 22 182/92 (122) 92 Vapotherm 55.00 25.00 09/24/18 13:00 86 09/24/18 13:00 89 27 203/114 (143) 91 Vapotherm 55.00 25.00 09/24/18 12:38 98.3 09/24/18 12:15 Vapotherm 25.00 55 09/24/18 12:00 81 23 191/98 (129) 94 Vapotherm 55.00 25.00 09/24/18 11:30 Vapotherm 55.00 25.00 09/24/18 11:22 93 Vapotherm 25.00 55 09/24/18 11:00 70 16 127/84 (98) 96 NIV Bilevel 60.00 09/24/18 10:18 78 24 94 60.00 09/24/18 10:05 96 Vapotherm 35.00 55 09/24/18 10:00 79 23 154/148 (150) 96 NIV Bilevel 60.00 09/24/18 09:00 82 35 182/88 (119) 100 NIV Bilevel 60.00 09/24/18 08:23 Vapotherm 35.00 55 09/24/18 08:00 69 23 172/70 (104) 97 NIV Bilevel 60.00 09/24/18 07:44 97.7 I & O 09/25/18 07:00 Intake Total 1339 ml Output Total 2775 ml Balance -1436 ml Height & Weight Height: 5'10.00" Weight: 359lbs. 0.0oz. 162.159252mn; 42.18 BMI Method:Estimated General Appearance: No Apparent Distress, WD/WN HEENT: Normal ENT Inspection Neck: Normal Inspection Respiratory: Decreased Breath Sounds Cardiovascular: Regular Rate, Rhythm Capillary Refill: Less Than 3 Seconds Gastrointestinal: non tender, soft Neurologic/Psychiatric: Alert, Oriented x3 Skin: Normal Color, Warm/Dry Results Lab Laboratory Tests 09/24/18 03:30 Assessment/Plan Assessment/Plan Acute on chronic respiratory failure/COPDAE -Noninvasive ventilation QHS and PRN -Vapotherm when not on BiPAP -Solumedrol Q6 -SVNs Q4 Bilateral strep pneumonia -Continue Zosyn - MRSA swab is neg HTN with SBP around 170 - Diastolic CHF -Monitor close Acute renal failure -Monitored Atelectasis -Increase activity -PT/OT Morbid obesity with OHS and TERE -Pt will need home vent to mask if possible JHON STEPHENSON DO Sep 25, 2018 07:23
[2018-09-25] MEDS ORDERED: FUROSEMIDE 40 MG/4 ML INJ (LASIX) IVP NR (07:30)
[2018-09-25] MEDS ORDERED: KCL 8 MEQ (MICRO K) TABLET PO NR (07:30)
[2018-09-25 07:51] VITALS: BP 184/90
--- NOTE | 2018-09-25 08:14 | Progress Note (SOAP) ---
Subjective Time Seen by a Provider: 08:11 Subjective/Events-last exam Patient doing better today. Patient on BiPAP to be converted to Vapotherm Patient has no complaints Patient not in any respiratory distress. Objective Exam Vital Signs Date Time Temp Pulse Resp B/P (MAP) Pulse Ox O2 Delivery O2 Flow Rate FiO2 09/25/18 07:51 98.9 76 15 184/90 (121) 96 NIV Bilevel 09/25/18 06:38 64 20 99 60.00 09/25/18 06:00 64 160/77 (104) 09/25/18 04:10 75 26 97 60.00 09/25/18 04:00 98.9 82 26 182/98 (126) 96 Vapotherm 25.00 25.00 09/25/18 01:46 94 Vapotherm 25.00 55 09/25/18 00:57 74 09/25/18 00:00 97.7 75 22 168/82 (110) 94 Vapotherm 55.00 25.00 09/24/18 22:12 91 Vapotherm 25.00 55 09/24/18 20:00 Vapotherm 25.00 55 09/24/18 20:00 97.6 78 20 173/89 (117) 92 Vapotherm 55.00 25.00 09/24/18 19:00 84 09/24/18 18:14 94 Vapotherm 25.00 55 09/24/18 18:00 79 20 157/91 (113) 94 Vapotherm 55.00 25.00 09/24/18 17:00 74 22 157/71 (99) 90 Vapotherm 55.00 25.00 09/24/18 16:00 Vapotherm 25.00 55 09/24/18 16:00 73 21 178/91 (120) 94 Vapotherm 55.00 25.00 09/24/18 15:08 98.3 09/24/18 15:00 83 24 188/93 (124) 90 Vapotherm 55.00 25.00 09/24/18 14:09 92 Vapotherm 25.00 55 09/24/18 14:00 85 22 182/92 (122) 92 Vapotherm 55.00 25.00 09/24/18 13:00 86 09/24/18 13:00 89 27 203/114 (143) 91 Vapotherm 55.00 25.00 09/24/18 12:38 98.3 09/24/18 12:15 Vapotherm 25.00 55 09/24/18 12:00 81 23 191/98 (129) 94 Vapotherm 55.00 25.00 09/24/18 11:30 Vapotherm 55.00 25.00 09/24/18 11:22 93 Vapotherm 25.00 55 09/24/18 11:00 70 16 127/84 (98) 96 NIV Bilevel 60.00 09/24/18 10:18 78 24 94 60.00 09/24/18 10:05 96 Vapotherm 35.00 55 09/24/18 10:00 79 23 154/148 (150) 96 NIV Bilevel 60.00 09/24/18 09:00 82 35 182/88 (119) 100 NIV Bilevel 60.00 09/24/18 08:23 Vapotherm 35.00 55 I & O 09/25/18 07:00 Intake Total 1339 ml Output Total 2775 ml Balance -1436 ml Capillary Refill : Less Than 3 Seconds General Appearance: No Apparent Distress, WD/WN HEENT: Normal ENT Inspection Neck: Normal Inspection Respiratory: Lungs Clear, No Accessory Muscle Use, No Respiratory Distress, Decreased Breath Sounds Cardiovascular: Regular Rate, Rhythm, No Murmur Gastrointestinal: non tender, soft Results Lab Microbiology 09/19/18 Blood Culture - Preliminary, Resulted No growth 09/23/18 Gram Stain - Final, Resulted 09/23/18 Bronchial Culture - Preliminary, Resulted YEAST Usual upper respiratory analilia 09/23/18 Fungal Culture 1, Resulted Pending 09/19/18 Urine Culture - Final, Complete NO GROWTH Assessment/Plan Assessment/Plan Assess & Plan/Chief Complaint acute and chronic respiratory failure. Bilateral pneumonia with acute respiratory distress syndrome. Acute renal failure. Hyperkalemia. Morbid obesity. Obstructive sleep apnea.. . 09/21/18. Acute and chronic respiratory failure. Bilateral pneumonia. Lungs. Renal insufficiency back to normal area Hypokalemia. Morbid obesity. Obstructive sleep apnea.. . 09/24/18. Pneumonia due to strep pneumonia. Radha chronic respiratory failure. Renal insufficiency resolved. Morbid obesity. Obstructive sleep apnea. Patient complaining of back pain. Patient now a DO NOT RESUSCITATE. Patient considering hospice . . 09/25/18. Pneumonia due to strep pneumonia. COPD. Respiratory failure history area Renal insufficiency resolved. Morbid obesity. Obstructive sleep apnea. Patient in no complaints today. Patient improving. Patient is better Vapotherm from bi Pap Clinical Quality Measures Admission Status Admission Dx Acute respiratory failure with hypoxia. Hypercapnia. Severe COPD. Coronary artery disease. hyPretension DVT/VTE Risk/Contraindication: Risk Factor Score Per Nursin RFS Level Per Nursing on Admit: 4+=Very High DANITA TEE DO Sep 25, 2018 08:14
[2018-09-25] MEDS: AMIODARONE 200 MG (CORDARONE) TAB PO SCH (08:34)
[2018-09-25] MEDS: APIXABAN 5 MG (ELIQUIS) TABLET PO SCH (08:35)
[2018-09-25] MEDS: METOCLOPRAMIDE INJ 10 MG/2 ML (REGLAN) IVP SCH (08:41)
--- NOTE | 2018-09-25 08:55 | Progress Note-Cardiology ---
Cardiology SOAP Progress Note Subjective: Currently on Bi-pap. Feels more SOB this morning. No c/o CP, palpitations. Reports occ productive cough. Objective: I&O/Vital Signs 09/25/18 09/25/18 09/25/18 09/25/18 04:00 04:10 06:00 06:38 Temp 98.9 Pulse 82 75 64 64 Resp 26 26 20 B/P (MAP) 182/98 (126) 160/77 (104) Pulse Ox 96 97 99 O2 Delivery Vapotherm O2 Flow Rate 25.00 60.00 60.00 25.00 09/25/18 09/25/18 09/25/18 09/25/18 07:51 08:13 08:34 10:35 Temp 98.9 Pulse 76 68 70 Resp 15 22 16 B/P (MAP) 184/90 (121) Pulse Ox 96 89 96 95 O2 Delivery NIV Bilevel Vapotherm O2 Flow Rate 25.00 50.00 40.00 FiO2 55 09/25/18 09/25/18 12:00 14:24 Temp 98.5 Pulse 68 70 Resp 19 17 B/P (MAP) 166/79 (108) Pulse Ox 93 89 O2 Delivery NIV Bilevel O2 Flow Rate 30.00 09/25/18 00:00 Intake Total 759 ml Output Total 1225 ml Balance -466 ml Weight (Pounds): 359 Weight (Ounces): 0.0 Weight (Calculated Kilograms): 162.813957 Constitutional: appears stated age, AAO x 3, apparent distress, well-developed , well-nourished Respiratory: No accessory muscle use; rhonchi, other (appears moderately short of breath, abdomino-thoracic respiration, fair air entry, prolonged exp phase, exp wheezes and rhonchi) Cardiovascular: regular rate-rhythm, S1 and S2, systolic murmur (soft [place] at card base) Gastrointestional: audible bowel sounds Extremities: No clubbing, No cyanosis, No significant edema Neurologic/Psychiatric: oriented x 3, grossly intact, power is 5/5 both on sides Skin: No rash, No ulcerations Results/Procedures: Labs Microbiology 09/19/18 Blood Culture - Final, Complete No growth 09/23/18 Mycobacterial Culture - Preliminary, Resulted 09/19/18 Urine Culture - Final, Complete NO GROWTH A/P: Assessment: Ac resp failure due to ARDS due to streptococcus pneumonia Wide-complex sustained (approx 1 min) tachycardia at approx 110 bpm on 09/23/18 Sinus node dysfunction: presentation with PAF in 2016 that was treated with elec cardioversion; sinus mateo with PVCs during this hosp suspected to be due to Precedex HTN Mild to moderate CAD on coronary angiography in 2010 Obesity with obesity-hypoventilation, TERE, and pulm hypertension. PASP was 60- 65 mmHg on echo of 2015 Echo of Oct 2017 showed LVEF 55-60% Plan: * Complex management due to multiple comorbidities * Amio for prevention of arrhythmia * Apixaban for stroke prophylaxis * Repeat echo * Card cath when more stable from resp standpoint * Monitor labs * We have spoken with him in detail and answered CV-related questions * BP not well controlled - add BB Physician Assessment Physician Assessment Feels short of breath No cp or palp or syncope Gen malaise On BiPAP Lungs: fair bilat air entry, prolonged exp phase Cor: reg Ext: mod pitting and nonpitting edema A&R * As documented in our note above that I updated (italics) and as noted below * I spoke with him and his family today, and answered CV-related questions * He still appears quite ill * We recommend further card w/u after stabilization of resp status PIEDAD GOEL Sep 25, 2018 08:55 PATSY SERVIN MD FACP [facility] Sep 25, 2018 14:59
[2018-09-25] MEDS ORDERED: ASPIRIN E.C. 81 MG (ECOTRIN) TAB PO SCH (09:00)
[2018-09-25] MEDS ORDERED: meTOproloL SUCCINATE 50 MG (TOPROL XL) TAB PO SCH (09:00)
--- NOTE | 2018-09-25 11:59 | Occupational Therapy Eval ---
OT Evaluation-General/PLF Medical Diagnosis Admission Date Sep 19, 2018 at 08:47 Medical Diagnosis: Acute and chronic resp failure Onset Date: Sep 19, 2018 Therapy Diagnosis Therapy Diagnosis: Weakness Height/Weight Height (Feet): 5 Height (Inches): 10.00 Weight (Pounds): 359 Weight (Ounces): 0.0 Precautions Precautions/Isolations: Fall Prevention, Standard Precautions, Pressure Ulcer Safety Interventions: Bed Exit Alarm, Reorient-PRN Weight Bear Status Weight Bearing Restriction: Weight Bearing/Tolerated Referral Physician: Ramana Forrest Referral Reason: Activity Tolerance, Self Care, Evaluation/Treatment, Strengthening/ROM Referral Comments Pt. on bipap vs. vapotherm intermittently. Medical History Pertinent Medical History: CAD, COPD, DM, HTN, Smoking Additional Medical History Pt. was on vent. Extubated. Tolerating bipap and then vapotherm to eat. Reviewed History: Yes Social History Home: Single Level Current Living Status: Children Entry Into Home: Stairs With Railing Steps Into Home: 3 ADL-Prior Level of Function Therapy Code Descriptions/Definitions Functional [place] Measure: 0=Not Assessed/NA 4=Minimal Assistance 1=Total Assistance 5=Supervision or Setup 2=Maximal Assistance 6=Modified [place] 3=Moderate Assistance 7=Complete [place] Therapy Quality Codes: 6 Independent with activity with or without an assistive device 5 Patient requires set up or clean up by helper. Patient completes activity by themselves 4 Supervision or touching assist (CGA). [place] provide cues , steadying assist 3 The helper provides less than half the effort to complete the activity 2 The helper provides more than half the effort to complete the activity 1 Dependent. The helper does all the effort to complete an activity 7 Patient refused to complete or attempt activity 9 The patient did not perform the activity before the current illness or injury 88 Not attempted due to Medical conditions or safety concerns Functional Abilities and Goals: Independent: Patient completed the activities by him/herself, with or without an assistive device, with no assistance from a helper. Needed Some Help: Patient needed partial assistance from another person to complete activities. Dependent: A helper completed the activities for the patient. Unknown: Not Applicable: ADL PLOF Comments Pt. states that he was independent previous to this hospitalization. States that he has a walker, but he doesn't use it. Pt. is able to state that he still drives. Self Care: Independent Functional Cognition: Independent DME/Equipment Comments Pt. has a walker. Drive Self: Yes OT Current Status Subjective Pt. does not report pain. OT does have some difficulty understanding pt, as he is on bipap. Appearance Pt. in bed. Alert. Agrees to work with OT. Mental Status/Objective Patient Orientation: Person, Place Attachments: Ac Catheter, IV Current Upper Extremity ROM WFL Upper Extremity Strength WFL ADL-Treatment Therapy Code Descriptions/Definitions Functional [place] Measure: 0=Not Assessed/NA 4=Minimal Assistance 1=Total Assistance 5=Supervision or Setup 2=Maximal Assistance 6=Modified [place] 3=Moderate Assistance 7=Complete [place] Therapy Quality Codes: 6 Independent with activity with or without an assistive device 5 Patient requires set up or clean up by helper. Patient completes activity by themselves 4 Supervision or touching assist (CGA). [place] provide cues , steadying assist 3 The helper provides less than half the effort to complete the activity 2 The helper provides more than half the effort to complete the activity 1 Dependent. The helper does all the effort to complete an activity 7 Patient refused to complete or attempt activity 9 The patient did not perform the activity before the current illness or injury 88 Not attempted due to Medical conditions or safety concerns Transfers (B, C, W/C) (FIM): 3 (Please see note.) Pt. transferred supine-sit with mod assistance. Required assist to scoot legs to side and then to pull self up to sitting. Once on the side of bed, pt. was able to scoot to edge. Pt. sat on side of bed approximately 20 minutes. While sitting, pt. kept stating that he "needs to pee." Pt. is shown catheter several times. Pt. is able to scoot self toward HOB with assist to do so. Mod assistance given to lay down and bring legs up into bed. Hospital gown replaced as it was wet from water. HOB elevated and all needs were met. Education OT Patient Education: Correct positioning, Modified ADL techniques, Progress toward Goal/Update tx plan, Purpose of tx/functional activities, Reviewed precautions, Rehab process, Transfer techniques Teaching Recipient: Patient Teaching Methods: Demonstration, Discussion Response to Teaching: Verbalize Understanding, Return Demonstration OT Short Term Goals Short Term Goals Time Frame: Oct 02, 2018 Eating(FIM): 5 Grooming(FIM): 5 Bathing(FIM): 3 Upper Body Dressing(FIM): 4 Lower Body Dressing(FIM): 3 Toileting(FIM): 3 Transfers (B,C,W/C) (FIM): 5 Toilet/Commode Transfer(FIM): 5 Shower Transfer(FIM): 4 Additional Short Term Goals: 1-Demonstrate ADL Tasks, 2-Verbalize Understanding , 3-ImproveStrength/Sneha 1=Demonstrate adherence to instructed precautions during ADL tasks. 2=Patient will verbalize/demonstrate understanding of assistive devices/ modifications for ADL. 3=Patient will improve strength/tolerance for activity to enable patient to perform ADL's. OT Tool Liaison Goals Tool Liaison Goals Time Frame: Oct 16, 2018 Eating (FIM): 6 Grooming(FIM): 6 Bathing(FIM): 4 Upper Body Dressing(FIM): 5 Lower Body Dressing(FIM): 5 Toileting(FIM): 6 Transfers (B,C,W/C) (FIM): 6 Toilet/Commode Transfer(FIM): 6 Additional Goals: 1-Demonstrate ADL Tasks, 2-Verbalize Understanding, 3- ImproveStrength/Sneha 1=Demonstrate adherence to instructed precautions during ADL tasks. 2=Patient will verbalize/demonstrate understanding of assistive devices/ modifications for ADL. 3=Patient will improve strength/tolerance for activity to enable patient to perform ADL's. OT Education/Plan Problem List/Assessment Assessment: Decreased Activ Tolerance, Dependent Transfers, Impaired Bed Mobility, Impaired Funct Balance, Impaired I ADL's, Impaired Self-Care Skills Discharge Recommendations Plan/Recommendations: Continue POC Comment Equipment needs and discharge location to be determined. Barriers to Progress Pt. requiring bipap therapy at this time. Treatment Plan/Plan of Care Treatment,Training & Education: Yes Patient would benefit from OT for education, treatment and training to promote independence in ADL's, mobility, safety and/or upper extremity function for ADL' s. Plan of Care: ADL Retraining, Functional Mobility, UE Funct Exercise/Act Treatment Duration: Oct 16, 2018 Frequency: 5 times per week Estimated Hrs Per Day: .5 hour per day Agreement: Yes Rehab Potential: Fair Time/GCodes Start Time: 10:55 Stop Time: 11:25 Total Time Billed (hr/min): 30 Billed Treatment Time 1, EVH x 15minutes, FA x 15minutes SHELL SHARMA OT Sep 25, 2018 11:59
[2018-09-25 12:00] VITALS: BP 166/79
--- NOTE | 2018-09-25 12:19 | NUR ---
DISCHARGE PLANNING: Stuart is here from [facility] and has reviewed clinical and spoken with family about [facility]. They are all in agreement for this POC. I have have asked Dr. Forrest to do doc to doc and he has agreed. Dr Cleveland aware and will give discharge orders after 13:00. Nurse notified and will get the orders.
--- NOTE | 2018-09-25 14:38 | Physical Therapy Daily Note ---
PT Daily Note-Current Subjective Pt was in bed with multiple family members in room. Pt agreed to PT. Pain Numeric Pain Scale: 0-No Pain Location: No Pain Reported Mental Status Patient Orientation: Person, Normal For Age Attachments: Oxygen (Bipap), Ac Catheter, IV Transfers Therapy Code Descriptions/Definitions Functional [place] Measure: 0=Not Assessed/NA 4=Minimal Assistance 1=Total Assistance 5=Supervision or Setup 2=Maximal Assistance 6=Modified [place] 3=Moderate Assistance 7=Complete [place] Therapy Quality Codes: 6 Independent with activity with or without an assistive device 5 Patient requires set up or clean up by helper. Patient completes activity by themselves 4 Supervision or touching assist (CGA). [place] provide cues , steadying assist 3 The helper provides less than half the effort to complete the activity 2 The helper provides more than half the effort to complete the activity 1 Dependent. The helper does all the effort to complete an activity 7 Patient refused to complete or attempt activity 9 The patient did not perform the activity before the current illness or injury 88 Not attempted due to Medical conditions or safety concerns Transfers (B, C, W/C) (FIM): 3 Scootin Supine to/from Sit: 3 Weight Bearing Right Lower Extremity: Right Full Weight Bearing Left Lower Extremity: Left Full Weight Bearing Exercises Seated Therapy Exercises: Ankle pumps, Long arc quads, Hip flexion Seated Reps: 10 Assessment Current Status: Poor Progress Pt was able to get from supine in bed to EOB with mod A of LE. Pt requested to only sit EOB due to SOB. Pt was able to maintain sitting balance for 15 min with CGA. Pt performed LE seated ex while sitting with multiple rest breaks due to SOB. Pt is able to scoot with CGA. Pt returned to bed and has all needs met. PT Short Term Goals Short Term Goals Time Frame: Oct 01, 2018 Transfers (B,C,W/C) (FIM): 5 Gait (FIM): 1 Distance (FIM): 1=up to 49 ft Gait Distance Comment: 25' Gait Level of Assist: 4 Gait Assistive Device: FWW PT Fpc Goals Agricultural Services Director Goals PT Fpc Goals Time Frame: Oct 06, 2018 Transfers (B,C,W/C) (FIM): 4 Gait (FIM): 2 Gait distance (FIM): 4=632-48 ft Distance: 100' Gait Level of Assist: 4 Gait Assistive Device: FWW PT Plan Problem List Problem List: Activity Tolerance, Functional Strength, Safety, Balance, Gait, Transfer, Bed Mobility Treatment/Plan Treatment Plan: Continue Plan of Care Treatment Plan: Bed Mobility, Education, Functional Activity Sneha, Functional Strength, Gait, Safety, Therapeutic Exercise, Transfers Treatment Duration: Oct 13, 2018 Frequency: 6 times per week Estimated Hrs Per Day: .25 hour per day Patient and/or Family Agrees t: Yes Time/GCodes Time In: 1335 Time Out: 1350 Total Billed Treatment Time: 15 Total Billed Treatment 1 visit FA 15 min MOON DREW PT Sep 25, 2018 14:38
[2018-09-25 16:00] VITALS: BP_SYST 142; BP_SYST 179; BP_DIAS 74; BP_DIAS 88
--- NOTE | 2018-09-25 16:47 | NUR ---
PATIENT AND FAMILY IN ROOM AT THIS TIME, PATIENT VOICES CONCERN ON HIS PREVIOUS DECISION OF DO NOT RESUSCITATE. HAS DECIDED TO BE A FULL CODE. ORDER RECEIVED BY THIS RN AT THIS TIME.
--- NOTE | 2018-09-25 18:00 | NUR ---
REPORT CALLED TO NEIL HEREDIA RN AT [facility], MARY GALINDO, FROM [facility] PRESENT FOR VERBAL REPORT AT THIS TIME. THIS RN STATED TO [facility] AND [facility] AND MADE AWARE OF THE NEW ORDER PER PATIENT WISHES FOR FULL CODE STATUS.
--- NOTE | 2018-09-25 18:24 | NUR ---
Patient to [facility] from [id number] per [facility] accompanied by [facility] STAFF. Patient and family AT BEDSIDE and understand transfer. Personal belongings with patient. Report GIVEN TO NEIL HEREDIA RN AT [facility] AND MARY GALINDO OF [facility]. PATIENT LEFT VIA STRETCHER WITH CPAP.
[2018-09-26] MEDS ORDERED: predniSONE 20 MG TAB PO SCH (07:00)
--- NOTE | 2018-09-26 07:23 | Discharge Summary ---
Diagnosis/Chief Complaint Date of Admission Sep 19, 2018 at 08:47 Date of Discharge Sep 25, 2018 at 18:24 Discharge Time: 07:20 Discharge Diagnosis Acute and chronic respiratory failure. Pneumonia. Streptococcus pneumonia. Hypertension. Anemia. Renal insufficiency. Obstructive sleep apnea. Morbid obesity. Sinus bradycardia. Patient on ventilator. Hypoxia. Hypercapnia. Anxiety disorder. Coronary artery disease. Obesity. Personal history of nicotine dependence. Hyperlipidemia. Diabetes Reason Hospital Visit Patient seen in ICU. Patient on ventilator and unresponsive. Patient at 430 a.m. became short of breath. EMS took patient to the emergency room. Patient's by mouth CO2 over 100. Patient became lethargic. Patient intubated. Patient has severe COPD. Patient obese. Patient has history of back pain. Discharge Summary Procedures Patient on ventilator and emergency room Consultations Pulmonology. Cardiology Discharge Physical Examination Allergies: Coded Allergies: cephalexin (Verified Allergy, Unknown, 04/10/16) Vitals & I&Os Vital Signs Date Time Temp Pulse Resp B/P (MAP) Pulse Ox O2 Delivery O2 Flow Rate FiO2 09/25/18 18:51 66 19 93 NIV Bilevel 09/25/18 16:00 97.7 09/25/18 15:53 30.00 09/25/18 08:13 55 Hospital Course Patient transferred to [facility] Labs (last 24 hrs) Laboratory Tests 09/19/18 05:45: White Blood Count 12.2H, Red Blood Count 3.89L, Hemoglobin 11.4L, Hematocrit 38L , Mean Corpuscular Volume 96, Mean Corpuscular Hemoglobin 29, Mean Corpuscular Hemoglobin Concent 30L, Red Cell Distribution Width 15.0H, Platelet Count 238, Mean Platelet Volume 8.9, Neutrophils (%) (Auto) 87H, Lymphocytes (%) (Auto) 6L , Monocytes (%) (Auto) 7, Eosinophils (%) (Auto) 0, Basophils (%) (Auto) 0, Neutrophils # (Auto) 10.6H, Lymphocytes # (Auto) 0.7L, Monocytes # (Auto) 0.9, Eosinophils # (Auto) 0.0, Basophils # (Auto) 0.0, Neutrophils % (Manual) 79, Lymphocytes % (Manual) 1, Monocytes % (Manual) 7, Eosinophils % (Manual) 2, Metamyelocytes % 2, Band Neutrophils 9, Blood Morphology Comment NORMAL, Prothrombin Time 12.5, INR Comment 0.9, Activated Partial Thromboplast Time 35, Sodium Level 139, Potassium Level 5.1H, Chloride Level 93L, Carbon Dioxide Level 36H, Anion Gap 10, Blood Urea Nitrogen 31H, Creatinine 1.20, Estimat Glomerular Filtration Rate > 60, BUN/Creatinine Ratio 26, Glucose Level 146H, Lactic Acid Level 0.60, Calcium Level 9.4, Corrected Calcium 9.6, Total Bilirubin 0.2, Aspartate Amino Transf (AST/SGOT) 20, Alanine Aminotransferase ( ALT/SGPT) 17, Alkaline Phosphatase 149H, B-Type Natriuretic Peptide 56.1, Total Protein 7.8, Albumin 3.7 09/19/18 06:00: Blood Gas Puncture Site RT RADIAL, Blood Gas Patient Temperature 99.4, Arterial Blood pH 7.21*L, Arterial Blood Partial Pressure CO2 105*H, Arterial Blood Partial Pressure O2 85, Arterial Blood HCO3 40H, Arterial Blood Total CO2 43.1H , Arterial Blood Oxygen Saturation 96, Arterial Blood Base Excess 12.1H, Neil Test YES-POS, Blood Gas Ventilator Setting NO, Blood Gas Inspired Oxygen 60% BIPAP 09/19/18 07:03: Blood Gas Puncture Site RR, Blood Gas Patient Temperature 99.4, Arterial Blood pH 7.20*L, Arterial Blood Partial Pressure CO2 114*H, Arterial Blood Partial Pressure O2 91, Arterial Blood HCO3 42*H, Arterial Blood Total CO2 45.4H, Arterial Blood Oxygen Saturation 96, Arterial Blood Base Excess 13.8H, Neil Test YES-POS, Blood Gas Ventilator Setting NO, Blood Gas Inspired Oxygen 70% 09/19/18 08:00: Urine Color YELLOW, Urine Clarity CLEAR, Urine pH 5, Urine Specific [place] 1.025H, Urine Protein 3+H, Urine Glucose (UA) NEGATIVE, Urine Ketones NEGATIVE, Urine Nitrite NEGATIVE, Urine Bilirubin NEGATIVE, Urine Urobilinogen NORMAL, Urine Leukocyte Esterase NEGATIVE, Urine RBC (Auto) 1+H, Urine RBC 2-5H, Urine WBC RARE, Urine Squamous Epithelial Cells RARE, Urine Crystals NONE, Urine Bacteria TRACE, Urine Casts PRESENT, Urine Hyaline Casts 5-10H, Urine Mucus NEGATIVE, Urine Culture Indicated CULTURE PENDING 09/19/18 08:47: Lab Scanned Report Referred Lab Report 09/19/18 12:05: Blood Gas Puncture Site RR, Blood Gas Patient Temperature 99.0, Arterial Blood pH 7.20*L, Arterial Blood Partial Pressure CO2 105*H, Arterial Blood Partial Pressure O2 182H, Arterial Blood HCO3 40H, Arterial Blood Total CO2 42.7H, Arterial Blood Oxygen Saturation 100, Arterial Blood Base Excess 11.5H, Neil Test YES-POS, Blood Gas Ventilator Setting YES, Blood Gas Inspired Oxygen 100% 09/19/18 13:20: Body Fluid Source OTHER, Body Fluid Color RED, Body Fluid Appearance MKD CLDY, Body Fluid Polynuclear WBCs 95, Body Fluid Mononuclear WBCs 0, Body Fluid Lymphocytes 5, Body Fluid Other Cells 0 09/19/18 15:55: Blood Gas Puncture Site LEFT RADIAL ARTLINE, Blood Gas Patient Temperature 100.2 , Arterial Blood pH 7.23*L, Arterial Blood Partial Pressure CO2 95*H, Arterial Blood Partial Pressure O2 267H, Arterial Blood HCO3 37H, Arterial Blood Total CO2 40.2H, Arterial Blood Oxygen Saturation 100, Arterial Blood Base Excess 10.0H, Neil Test NA, Blood Gas Ventilator Setting YES, Blood Gas Inspired Oxygen 100% 09/19/18 18:20: Urine Legionella pneumophilia Ag Negative, Streptococcus pneumoniae Antigen Negative 09/20/18 03:30: White Blood Count 14.1H, Red Blood Count 3.43L, Hemoglobin 10.0L, Hematocrit 33L , Mean Corpuscular Volume 97, Mean Corpuscular Hemoglobin 29, Mean Corpuscular Hemoglobin Concent 30L, Red Cell Distribution Width 15.3H, Platelet Count 222, Mean Platelet Volume 9.2, Neutrophils (%) (Auto) 95H, Lymphocytes (%) (Auto) 3L , Monocytes (%) (Auto) 2, Eosinophils (%) (Auto) 0, Basophils (%) (Auto) 0, Neutrophils # (Auto) 13.4H, Lymphocytes # (Auto) 0.4L, Monocytes # (Auto) 0.3, Eosinophils # (Auto) 0.0, Basophils # (Auto) 0.0, Blood Gas Puncture Site LEFT ARTLINE, Blood Gas Patient Temperature 99.0, Arterial Blood pH 7.31*L, Arterial Blood Partial Pressure CO2 74*H, Arterial Blood Partial Pressure O2 75L, Arterial Blood HCO3 36H, Arterial Blood Total CO2 38.3H, Arterial Blood Oxygen Saturation 94, Arterial Blood Base Excess 9.7H, Neil Test ARTLINE, Blood Gas Ventilator Setting YES, Blood Gas Inspired Oxygen 65%, Sodium Level 140, Potassium Level 5.1H, Chloride Level 99, Carbon Dioxide Level 32, Anion Gap 9, Blood Urea Nitrogen 36H, Creatinine 1.55H, Estimat Glomerular Filtration Rate 46 , BUN/Creatinine Ratio 23, Glucose Level 165H, Calcium Level 9.3, Corrected Calcium 10.0, Phosphorus Level 2.8, Magnesium Level 2.1, Total Bilirubin 0.2, Aspartate Amino Transf (AST/SGOT) 17, Alanine Aminotransferase (ALT/SGPT) 11, Alkaline Phosphatase 116, Total Protein 6.7, Albumin 3.1L 09/20/18 11:50: Glucometer 132H 09/20/18 17:08: Glucometer 115H 09/20/18 21:35: Vancomycin Level Trough 31.1*H 09/21/18 00:09: Glucometer 126H 09/21/18 03:15: White Blood Count 13.4H, Red Blood Count 3.35L, Hemoglobin 10.0L, Hematocrit 33L , Mean Corpuscular Volume 98, Mean Corpuscular Hemoglobin 30, Mean Corpuscular Hemoglobin Concent 31L, Red Cell Distribution Width 16.0H, Platelet Count 233, Mean Platelet Volume 8.9, Neutrophils (%) (Auto) 89H, Lymphocytes (%) (Auto) 4L , Monocytes (%) (Auto) 7, Eosinophils (%) (Auto) 0, Basophils (%) (Auto) 0, Neutrophils # (Auto) 11.9H, Lymphocytes # (Auto) 0.5L, Monocytes # (Auto) 0.9, Eosinophils # (Auto) 0.0, Basophils # (Auto) 0.0, Blood Gas Puncture Site ARTLINE, Blood Gas Patient Temperature 99.1, Arterial Blood pH 7.26*L, Arterial Blood Partial Pressure CO2 81*H, Arterial Blood Partial Pressure O2 74L, Arterial Blood HCO3 35H, Arterial Blood Total CO2 37.7H, Arterial Blood Oxygen Saturation 94, Arterial Blood Base Excess 8.4H, Neil Test ARTLINE, Blood Gas Ventilator Setting YES, Blood Gas Inspired Oxygen 50%, Sodium Level 142, Potassium Level 5.3H, Chloride Level 102, Carbon Dioxide Level 30, Anion Gap 10 , Blood Urea Nitrogen 33H, Creatinine 1.12, Estimat Glomerular Filtration Rate > 60, BUN/Creatinine Ratio 29, Glucose Level 131H, Calcium Level 9.3, Phosphorus Level 3.9, Magnesium Level 2.0 09/21/18 06:50: Blood Gas Puncture Site ARTLINE, Blood Gas Patient Temperature 98.4, Arterial Blood pH 7.33*L, Arterial Blood Partial Pressure CO2 71*H, Arterial Blood Partial Pressure O2 83, Arterial Blood HCO3 37H, Arterial Blood Total CO2 38.8H , Arterial Blood Oxygen Saturation 97, Arterial Blood Base Excess 10.5H, Neil Test ARTLINE, Blood Gas Ventilator Setting YES, Blood Gas Inspired Oxygen 50% 09/21/18 11:32: Glucometer 131H 09/21/18 17:26: Glucometer 138H 09/22/18 00:04: Glucometer 145H 09/22/18 03:32: Blood Gas Puncture Site ART LINE, Blood Gas Patient Temperature 98.4, Arterial Blood pH 7.31*L, Arterial Blood Partial Pressure CO2 77*H, Arterial Blood Partial Pressure O2 69L, Arterial Blood HCO3 37H, Arterial Blood Total CO2 39.8H , Arterial Blood Oxygen Saturation 94, Arterial Blood Base Excess 10.9H, Neil Test ART LINE, Blood Gas Ventilator Setting YES, Blood Gas Inspired Oxygen 50% 09/22/18 03:37: White Blood Count 8.7, Red Blood Count 3.32L, Hemoglobin 9.8L, Hematocrit 33L, Mean Corpuscular Volume 99, Mean Corpuscular Hemoglobin 30, Mean Corpuscular Hemoglobin Concent 30L, Red Cell Distribution Width 16.0H, Platelet Count 217, Mean Platelet Volume 9.2, Neutrophils (%) (Auto) 83H, Lymphocytes (%) (Auto) 7L , Monocytes (%) (Auto) 10, Eosinophils (%) (Auto) 0, Basophils (%) (Auto) 0, Neutrophils # (Auto) 7.2, Lymphocytes # (Auto) 0.6L, Monocytes # (Auto) 0.8, Eosinophils # (Auto) 0.0, Basophils # (Auto) 0.0, Sodium Level 144, Potassium Level 4.7, Chloride Level 103, Carbon Dioxide Level 33H, Anion Gap 8, Blood Urea Nitrogen 30H, Creatinine 1.01, Estimat Glomerular Filtration Rate > 60, BUN /Creatinine Ratio 30, Glucose Level 159H, Calcium Level 9.3, Phosphorus Level 3.2, Magnesium Level 2.2, B-Type Natriuretic Peptide 82.6 09/22/18 12:37: Glucometer 114H 09/22/18 13:04: Blood Gas Puncture Site LEFT RADIAL, Blood Gas Patient Temperature 97.6, Arterial Blood pH 7.35L, Arterial Blood Partial Pressure CO2 69H, Arterial Blood Partial Pressure O2 78L, Arterial Blood HCO3 38H, Arterial Blood Total CO2 40.0H, Arterial Blood Oxygen Saturation 97, Arterial Blood Base Excess 11.8H , Neil Test POSITIVE, Blood Gas Ventilator Setting YES, Blood Gas Inspired Oxygen 50% 09/22/18 17:24: Glucometer 154H 09/23/18 03:12: White Blood Count 10.8, Red Blood Count 3.39L, Hemoglobin 10.0L, Hematocrit 33L , Mean Corpuscular Volume 98, Mean Corpuscular Hemoglobin 29, Mean Corpuscular Hemoglobin Concent 30L, Red Cell Distribution Width 16.4H, Platelet Count 215, Mean Platelet Volume 9.1, Neutrophils (%) (Auto) 77H, Lymphocytes (%) (Auto) 12 , Monocytes (%) (Auto) 10, Eosinophils (%) (Auto) 0, Basophils (%) (Auto) 0, Neutrophils # (Auto) 8.3H, Lymphocytes # (Auto) 1.3, Monocytes # (Auto) 1.1H, Eosinophils # (Auto) 0.0, Basophils # (Auto) 0.0, Blood Gas Puncture Site ART LINE, Blood Gas Patient Temperature 99.3, Arterial Blood pH 7.32*L, Arterial Blood Partial Pressure CO2 77*H, Arterial Blood Partial Pressure O2 67L, Arterial Blood HCO3 38H, Arterial Blood Total CO2 40.6H, Arterial Blood Oxygen Saturation 91L, Arterial Blood Base Excess 12.0H, Neil Test ART LINE, Blood Gas Ventilator Setting YES, Blood Gas Inspired Oxygen 45%, Sodium Level 146H, Potassium Level 4.4, Chloride Level 103, Carbon Dioxide Level 31, Anion Gap 12, Blood Urea Nitrogen 36H, Creatinine 0.94, Estimat Glomerular Filtration Rate > 60, BUN/Creatinine Ratio 38, Glucose Level 130H, Calcium Level 9.0, Phosphorus Level 3.6, Magnesium Level 2.2 09/23/18 11:49: Blood Gas Puncture Site LEFT RADIAL, Blood Gas Patient Temperature 98, Arterial Blood pH 7.31*L, Arterial Blood Partial Pressure CO2 76*H, Arterial Blood Partial Pressure O2 66L, Arterial Blood HCO3 38H, Arterial Blood Total CO2 40.5H , Arterial Blood Oxygen Saturation 94, Arterial Blood Base Excess 11.1H, Neil Test POSITIVE, Blood Gas Ventilator Setting YES, Blood Gas Inspired Oxygen 45% 09/23/18 12:27: Glucometer 128H 09/23/18 20:35: Blood Gas Puncture Site ARTLINE, Blood Gas Patient Temperature 98.0, Arterial Blood pH 7.25*L, Arterial Blood Partial Pressure CO2 93*H, Arterial Blood Partial Pressure O2 175H, Arterial Blood HCO3 40H, Arterial Blood Total CO2 42.4H, Arterial Blood Oxygen Saturation 100, Arterial Blood Base Excess 12.1H, Neil Test NA, Blood Gas Ventilator Setting NO, Blood Gas Inspired Oxygen 100 09/23/18 22:00: Blood Gas Puncture Site LEFT ARTLINE, Blood Gas Patient Temperature 98.0, Arterial Blood pH 7.34*L, Arterial Blood Partial Pressure CO2 71*H, Arterial Blood Partial Pressure O2 90, Arterial Blood HCO3 38H, Arterial Blood Total CO2 40.1H, Arterial Blood Oxygen Saturation 98, Arterial Blood Base Excess 11.8H, Neil Test ARLTINE, Blood Gas Ventilator Setting NO, Blood Gas Inspired Oxygen 45% FIO2 BIPAP 09/24/18 03:30: Blood Gas Puncture Site L ART LINE, Blood Gas Patient Temperature 97.8, Arterial Blood pH 7.36L, Arterial Blood Partial Pressure CO2 68H, Arterial Blood Partial Pressure O2 97H, Arterial Blood HCO3 37H, Arterial Blood Total CO2 39.5H, Arterial Blood Oxygen Saturation 98, Arterial Blood Base Excess 11.5H , Neil Test POSITIVE, Blood Gas Ventilator Setting NO, Blood Gas Inspired Oxygen 45% BIPAP, White Blood Count 8.9, Red Blood Count 3.49L, Hemoglobin 9.9L , Hematocrit 34L, Mean Corpuscular Volume 98, Mean Corpuscular Hemoglobin 28, Mean Corpuscular Hemoglobin Concent 29L, Red Cell Distribution Width 15.8H, Platelet Count 188, Mean Platelet Volume 9.1, Neutrophils (%) (Auto) 89H, Lymphocytes (%) (Auto) 8L, Monocytes (%) (Auto) 3, Eosinophils (%) (Auto) 0, Basophils (%) (Auto) 0, Neutrophils # (Auto) 7.9H, Lymphocytes # (Auto) 0.7L, Monocytes # (Auto) 0.3, Eosinophils # (Auto) 0.0, Basophils # (Auto) 0.0, Sodium Level 146H, Potassium Level 4.3, Chloride Level 103, Carbon Dioxide Level 33H, Anion Gap 10, Blood Urea Nitrogen 31H, Creatinine 0.84, Estimat Glomerular Filtration Rate > 60, BUN/Creatinine Ratio 37, Glucose Level 135H, Calcium Level 9.4, Phosphorus Level 3.8, Magnesium Level 2.1, B-Type Natriuretic Peptide 384.3H Microbiology 09/19/18 Blood Culture - Final, Complete No growth 09/23/18 Mycobacterial Culture - Preliminary, Resulted 09/19/18 Urine Culture - Final, Complete NO GROWTH Laboratory Tests 09/19/18 05:45 09/20/18 03:30 09/21/18 03:15 09/22/18 03:37 09/23/18 03:12 09/24/18 03:30 Pending Labs Microbiology Date/Time Source Procedure Growth Status 09/19/18 05:50 Peripheral Rt Forearm Blood Culture - Final No growth Complete 09/19/18 05:45 Peripheral Rt Ac Blood Culture - Final Staph, Coag Neg ([facility]) Complete 09/23/18 06:25 Bronch Washings Bilateral Mycobacterial Culture - Preliminary Resulted 09/23/18 06:25 Bronch Washings Bilateral Gram Stain - Final Resulted 09/23/18 06:25 Bronchial Culture - Final YEAST Usual upper respiratory analilia Resulted 09/23/18 06:25 Fungal Culture 1 - Preliminary Dannielle albicans Resulted 09/19/18 13:20 Bronch Washings Bilateral Mycobacterial Culture - Preliminary Resulted 09/19/18 13:20 Bronch Washings Bilateral Gram Stain - Final Resulted 09/19/18 13:20 Bronchial Culture - Final Streptococcus pneumoniae Resulted 09/19/18 13:20 Fungal Culture 1 - Preliminary Culture In Progress Resulted 09/19/18 10:30 Nasal MRSA Screen - Final MRSA not isolated Complete 09/19/18 08:15 Sputum Induced Gram Stain - Final Complete 09/19/18 08:15 Sputum Culture - Final Usual upper respiratory analilia Streptococcus pneumoniae Complete 09/19/18 05:49 Nasopharynx Influenza Types A,B Antigen (JENNY) - Final Complete 09/19/18 08:00 Urine Ac Cath Urine Culture - Final NO GROWTH Complete Laboratory Tests 09/19/18 05:45: White Blood Count 12.2, Red Blood Count 3.89, Hemoglobin 11.4, Hematocrit 38, Mean Corpuscular Volume 96, Mean Corpuscular Hemoglobin 29, Mean Corpuscular Hemoglobin Concent 30, Red Cell Distribution Width 15.0, Platelet Count 238, Mean Platelet Volume 8.9, Neutrophils (%) (Auto) 87, Lymphocytes (%) (Auto) 6, Monocytes (%) (Auto) 7, Eosinophils (%) (Auto) 0, Basophils (%) (Auto) 0, Neutrophils # (Auto) 10.6, Lymphocytes # (Auto) 0.7, Monocytes # (Auto) 0.9, Eosinophils # (Auto) 0.0, Basophils # (Auto) 0.0, Neutrophils % (Manual) 79, Lymphocytes % (Manual) 1, Monocytes % (Manual) 7, Eosinophils % (Manual) 2, Metamyelocytes % 2, Band Neutrophils 9, Blood Morphology Comment NORMAL, Prothrombin Time 12.5, INR Comment 0.9, Activated Partial Thromboplast Time 35, Sodium Level 139, Potassium Level 5.1, Chloride Level 93, Carbon Dioxide Level 36, Anion Gap 10, Blood Urea Nitrogen 31, Creatinine 1.20, Estimat Glomerular Filtration Rate > 60, BUN/Creatinine Ratio 26, Glucose Level 146, Lactic Acid Level 0.60, Calcium Level 9.4, Corrected Calcium 9.6, Total Bilirubin 0.2, Aspartate Amino Transf (AST/SGOT) 20, Alanine Aminotransferase (ALT/SGPT) 17, Alkaline Phosphatase 149, B-Type Natriuretic Peptide 56.1, Total Protein 7.8, Albumin 3.7 09/19/18 06:00: Blood Gas Puncture Site RT RADIAL, Blood Gas Patient Temperature 99.4, Arterial Blood pH 7.21, Arterial Blood Partial Pressure CO2 105, Arterial Blood Partial Pressure O2 85, Arterial Blood HCO3 40, Arterial Blood Total CO2 43.1, Arterial Blood Oxygen Saturation 96, Arterial Blood Base Excess 12.1, Neil Test YES-POS , Blood Gas Ventilator Setting NO, Blood Gas Inspired Oxygen 60% BIPAP 09/19/18 07:03: Blood Gas Puncture Site RR, Blood Gas Patient Temperature 99.4, Arterial Blood pH 7.20, Arterial Blood Partial Pressure CO2 114, Arterial Blood Partial Pressure O2 91, Arterial Blood HCO3 42, Arterial Blood Total CO2 45.4, Arterial Blood Oxygen Saturation 96, Arterial Blood Base Excess 13.8, Neil Test YES-POS , Blood Gas Ventilator Setting NO, Blood Gas Inspired Oxygen 70% 09/19/18 08:00: Urine Color YELLOW, Urine Clarity CLEAR, Urine pH 5, Urine Specific [place] 1.025, Urine Protein 3+, Urine Glucose (UA) NEGATIVE, Urine Ketones NEGATIVE, Urine Nitrite NEGATIVE, Urine Bilirubin NEGATIVE, Urine Urobilinogen NORMAL, Urine Leukocyte Esterase NEGATIVE, Urine RBC (Auto) 1+, Urine RBC 2-5, Urine WBC RARE, Urine Squamous Epithelial Cells RARE, Urine Crystals NONE, Urine Bacteria TRACE, Urine Casts PRESENT, Urine Hyaline Casts 5-10, Urine Mucus NEGATIVE, Urine Culture Indicated CULTURE PENDING 09/19/18 08:47: Lab Scanned Report Referred Lab Report 09/19/18 12:05: Blood Gas Puncture Site RR, Blood Gas Patient Temperature 99.0, Arterial Blood pH 7.20, Arterial Blood Partial Pressure CO2 105, Arterial Blood Partial Pressure O2 182, Arterial Blood HCO3 40, Arterial Blood Total CO2 42.7, Arterial Blood Oxygen Saturation 100, Arterial Blood Base Excess 11.5, Neil Test YES-POS, Blood Gas Ventilator Setting YES, Blood Gas Inspired Oxygen 100% 09/19/18 13:20: Body Fluid Source OTHER, Body Fluid Color RED, Body Fluid Appearance MKD CLDY, Body Fluid Polynuclear WBCs 95, Body Fluid Mononuclear WBCs 0, Body Fluid Lymphocytes 5, Body Fluid Other Cells 0 09/19/18 15:55: Blood Gas Puncture Site LEFT RADIAL ARTLINE, Blood Gas Patient Temperature 100.2 , Arterial Blood pH 7.23, Arterial Blood Partial Pressure CO2 95, Arterial Blood Partial Pressure O2 267, Arterial Blood HCO3 37, Arterial Blood Total CO2 40.2, Arterial Blood Oxygen Saturation 100, Arterial Blood Base Excess 10.0, Neil Test NA, Blood Gas Ventilator Setting YES, Blood Gas Inspired Oxygen 100% 09/19/18 18:20: Urine Legionella pneumophilia Ag Negative, Streptococcus pneumoniae Antigen Negative 09/20/18 03:30: White Blood Count 14.1, Red Blood Count 3.43, Hemoglobin 10.0, Hematocrit 33, Mean Corpuscular Volume 97, Mean Corpuscular Hemoglobin 29, Mean Corpuscular Hemoglobin Concent 30, Red Cell Distribution Width 15.3, Platelet Count 222, Mean Platelet Volume 9.2, Neutrophils (%) (Auto) 95, Lymphocytes (%) (Auto) 3, Monocytes (%) (Auto) 2, Eosinophils (%) (Auto) 0, Basophils (%) (Auto) 0, Neutrophils # (Auto) 13.4, Lymphocytes # (Auto) 0.4, Monocytes # (Auto) 0.3, Eosinophils # (Auto) 0.0, Basophils # (Auto) 0.0, Blood Gas Puncture Site LEFT ARTLINE, Blood Gas Patient Temperature 99.0, Arterial Blood pH 7.31, Arterial Blood Partial Pressure CO2 74, Arterial Blood Partial Pressure O2 75, Arterial Blood HCO3 36, Arterial Blood Total CO2 38.3, Arterial Blood Oxygen Saturation 94, Arterial Blood Base Excess 9.7, Neil Test ARTLINE, Blood Gas Ventilator Setting YES, Blood Gas Inspired Oxygen 65%, Sodium Level 140, Potassium Level 5.1, Chloride Level 99, Carbon Dioxide Level 32, Anion Gap 9, Blood Urea Nitrogen 36, Creatinine 1.55, Estimat Glomerular Filtration Rate 46, BUN/ Creatinine Ratio 23, Glucose Level 165, Calcium Level 9.3, Corrected Calcium 10.0, Phosphorus Level 2.8, Magnesium Level 2.1, Total Bilirubin 0.2, Aspartate Amino Transf (AST/SGOT) 17, Alanine Aminotransferase (ALT/SGPT) 11, Alkaline Phosphatase 116, Total Protein 6.7, Albumin 3.1 09/20/18 11:50: Glucometer 132 09/20/18 17:08: Glucometer 115 09/20/18 21:35: Vancomycin Level Trough 31.1 09/21/18 00:09: Glucometer 126 09/21/18 03:15: White Blood Count 13.4, Red Blood Count 3.35, Hemoglobin 10.0, Hematocrit 33, Mean Corpuscular Volume 98, Mean Corpuscular Hemoglobin 30, Mean Corpuscular Hemoglobin Concent 31, Red Cell Distribution Width 16.0, Platelet Count 233, Mean Platelet Volume 8.9, Neutrophils (%) (Auto) 89, Lymphocytes (%) (Auto) 4, Monocytes (%) (Auto) 7, Eosinophils (%) (Auto) 0, Basophils (%) (Auto) 0, Neutrophils # (Auto) 11.9, Lymphocytes # (Auto) 0.5, Monocytes # (Auto) 0.9, Eosinophils # (Auto) 0.0, Basophils # (Auto) 0.0, Blood Gas Puncture Site ARTLINE, Blood Gas Patient Temperature 99.1, Arterial Blood pH 7.26, Arterial Blood Partial Pressure CO2 81, Arterial Blood Partial Pressure O2 74, Arterial Blood HCO3 35, Arterial Blood Total CO2 37.7, Arterial Blood Oxygen Saturation 94, Arterial Blood Base Excess 8.4, Neil Test ARTLINE, Blood Gas Ventilator Setting YES, Blood Gas Inspired Oxygen 50%, Sodium Level 142, Potassium Level 5.3, Chloride Level 102, Carbon Dioxide Level 30, Anion Gap 10, Blood Urea Nitrogen 33, Creatinine 1.12, Estimat Glomerular Filtration Rate > 60, BUN/ Creatinine Ratio 29, Glucose Level 131, Calcium Level 9.3, Phosphorus Level 3.9 , Magnesium Level 2.0 09/21/18 06:50: Blood Gas Puncture Site ARTLINE, Blood Gas Patient Temperature 98.4, Arterial Blood pH 7.33, Arterial Blood Partial Pressure CO2 71, Arterial Blood Partial Pressure O2 83, Arterial Blood HCO3 37, Arterial Blood Total CO2 38.8, Arterial Blood Oxygen Saturation 97, Arterial Blood Base Excess 10.5, Neil Test ARTLINE , Blood Gas Ventilator Setting YES, Blood Gas Inspired Oxygen 50% 09/21/18 11:32: Glucometer 131 09/21/18 17:26: Glucometer 138 09/22/18 00:04: Glucometer 145 09/22/18 03:32: Blood Gas Puncture Site ART LINE, Blood Gas Patient Temperature 98.4, Arterial Blood pH 7.31, Arterial Blood Partial Pressure CO2 77, Arterial Blood Partial Pressure O2 69, Arterial Blood HCO3 37, Arterial Blood Total CO2 39.8, Arterial Blood Oxygen Saturation 94, Arterial Blood Base Excess 10.9, Neil Test ART LINE , Blood Gas Ventilator Setting YES, Blood Gas Inspired Oxygen 50% 09/22/18 03:37: White Blood Count 8.7, Red Blood Count 3.32, Hemoglobin 9.8, Hematocrit 33, Mean Corpuscular Volume 99, Mean Corpuscular Hemoglobin 30, Mean Corpuscular Hemoglobin Concent 30, Red Cell Distribution Width 16.0, Platelet Count 217, Mean Platelet Volume 9.2, Neutrophils (%) (Auto) 83, Lymphocytes (%) (Auto) 7, Monocytes (%) (Auto) 10, Eosinophils (%) (Auto) 0, Basophils (%) (Auto) 0, Neutrophils # (Auto) 7.2, Lymphocytes # (Auto) 0.6, Monocytes # (Auto) 0.8, Eosinophils # (Auto) 0.0, Basophils # (Auto) 0.0, Sodium Level 144, Potassium Level 4.7, Chloride Level 103, Carbon Dioxide Level 33, Anion Gap 8, Blood Urea Nitrogen 30, Creatinine 1.01, Estimat Glomerular Filtration Rate > 60, BUN/ Creatinine Ratio 30, Glucose Level 159, Calcium Level 9.3, Phosphorus Level 3.2 , Magnesium Level 2.2, B-Type Natriuretic Peptide 82.6 09/22/18 12:37: Glucometer 114 09/22/18 13:04: Blood Gas Puncture Site LEFT RADIAL, Blood Gas Patient Temperature 97.6, Arterial Blood pH 7.35, Arterial Blood Partial Pressure CO2 69, Arterial Blood Partial Pressure O2 78, Arterial Blood HCO3 38, Arterial Blood Total CO2 40.0, Arterial Blood Oxygen Saturation 97, Arterial Blood Base Excess 11.8, Neil Test POSITIVE, Blood Gas Ventilator Setting YES, Blood Gas Inspired Oxygen 50% 09/22/18 17:24: Glucometer 154 09/23/18 03:12: White Blood Count 10.8, Red Blood Count 3.39, Hemoglobin 10.0, Hematocrit 33, Mean Corpuscular Volume 98, Mean Corpuscular Hemoglobin 29, Mean Corpuscular Hemoglobin Concent 30, Red Cell Distribution Width 16.4, Platelet Count 215, Mean Platelet Volume 9.1, Neutrophils (%) (Auto) 77, Lymphocytes (%) (Auto) 12, Monocytes (%) (Auto) 10, Eosinophils (%) (Auto) 0, Basophils (%) (Auto) 0, Neutrophils # (Auto) 8.3, Lymphocytes # (Auto) 1.3, Monocytes # (Auto) 1.1, Eosinophils # (Auto) 0.0, Basophils # (Auto) 0.0, Blood Gas Puncture Site ART LINE, Blood Gas Patient Temperature 99.3, Arterial Blood pH 7.32, Arterial Blood Partial Pressure CO2 77, Arterial Blood Partial Pressure O2 67, Arterial Blood HCO3 38, Arterial Blood Total CO2 40.6, Arterial Blood Oxygen Saturation 91, Arterial Blood Base Excess 12.0, Neil Test ART LINE, Blood Gas Ventilator Setting YES, Blood Gas Inspired Oxygen 45%, Sodium Level 146, Potassium Level 4.4, Chloride Level 103, Carbon Dioxide Level 31, Anion Gap 12, Blood Urea Nitrogen 36, Creatinine 0.94, Estimat Glomerular Filtration Rate > 60, BUN/ Creatinine Ratio 38, Glucose Level 130, Calcium Level 9.0, Phosphorus Level 3.6 , Magnesium Level 2.2 09/23/18 11:49: Blood Gas Puncture Site LEFT RADIAL, Blood Gas Patient Temperature 98, Arterial Blood pH 7.31, Arterial Blood Partial Pressure CO2 76, Arterial Blood Partial Pressure O2 66, Arterial Blood HCO3 38, Arterial Blood Total CO2 40.5, Arterial Blood Oxygen Saturation 94, Arterial Blood Base Excess 11.1, Neil Test POSITIVE , Blood Gas Ventilator Setting YES, Blood Gas Inspired Oxygen 45% 09/23/18 12:27: Glucometer 128 09/23/18 20:35: Blood Gas Puncture Site ARTLINE, Blood Gas Patient Temperature 98.0, Arterial Blood pH 7.25, Arterial Blood Partial Pressure CO2 93, Arterial Blood Partial Pressure O2 175, Arterial Blood HCO3 40, Arterial Blood Total CO2 42.4, Arterial Blood Oxygen Saturation 100, Arterial Blood Base Excess 12.1, Neil Test NA, Blood Gas Ventilator Setting NO, Blood Gas Inspired Oxygen 100 09/23/18 22:00: Blood Gas Puncture Site LEFT ARTLINE, Blood Gas Patient Temperature 98.0, Arterial Blood pH 7.34, Arterial Blood Partial Pressure CO2 71, Arterial Blood Partial Pressure O2 90, Arterial Blood HCO3 38, Arterial Blood Total CO2 40.1, Arterial Blood Oxygen Saturation 98, Arterial Blood Base Excess 11.8, Neil Test ARLTINE, Blood Gas Ventilator Setting NO, Blood Gas Inspired Oxygen 45% FIO2 BIPAP 09/24/18 03:30: Blood Gas Puncture Site L ART LINE, Blood Gas Patient Temperature 97.8, Arterial Blood pH 7.36, Arterial Blood Partial Pressure CO2 68, Arterial Blood Partial Pressure O2 97, Arterial Blood HCO3 37, Arterial Blood Total CO2 39.5, Arterial Blood Oxygen Saturation 98, Arterial Blood Base Excess 11.5, Neil Test POSITIVE, Blood Gas Ventilator Setting NO, Blood Gas Inspired Oxygen 45% BIPAP, White Blood Count 8.9, Red Blood Count 3.49, Hemoglobin 9.9, Hematocrit 34, Mean Corpuscular Volume 98, Mean Corpuscular Hemoglobin 28, Mean Corpuscular Hemoglobin Concent 29, Red Cell Distribution Width 15.8, Platelet Count 188, Mean Platelet Volume 9.1, Neutrophils (%) (Auto) 89, Lymphocytes (%) (Auto) 8, Monocytes (%) (Auto) 3, Eosinophils (%) (Auto) 0, Basophils (%) (Auto ) 0, Neutrophils # (Auto) 7.9, Lymphocytes # (Auto) 0.7, Monocytes # (Auto) 0.3 , Eosinophils # (Auto) 0.0, Basophils # (Auto) 0.0, Sodium Level 146, Potassium Level 4.3, Chloride Level 103, Carbon Dioxide Level 33, Anion Gap 10, Blood Urea Nitrogen 31, Creatinine 0.84, Estimat Glomerular Filtration Rate > 60, BUN/ Creatinine Ratio 37, Glucose Level 135, Calcium Level 9.4, Phosphorus Level 3.8 , Magnesium Level 2.1, B-Type Natriuretic Peptide 384.3 Discharge Home Medications: Active Scripts Active Reported Vitamin A (Vitamin A Palmitate) 10,000 Unit Capsule 10,000 Unit PO DAILY Vitamin D3 (Cholecalciferol (Vitamin D3)) 1,000 Unit Capsule 1,000 Unit PO DAILY Hydrocodone-Acetamin 5-325 mg (Hydrocodone/Acetaminophen) 1 Each Tablet 1 Tab PO TID PRN Centrum Adults Tablet (Multivitamin/Iron/Folic Acid) 1 Each Tablet 1 Tab PO DAILY Vitamin B-12 5,000 Mcg Tab Sl (Cyanocobalamin/Cobamamide) 1 Each Tab.subl 5,000 Mcg SL DAILY Lisinopril 10 Mg Tablet 10 Mg PO DAILY Furosemide 40 Mg Tablet 40 Mg PO BID Albuterol Sulfate 2.5 Mg/3 Ml Vial.neb 2.5 Mg IH TID PRN Lyrica (Pregabalin) 150 Mg Capsule 150 Mg PO BID Atorvastatin Calcium 10 Mg Tablet 10 Mg PO DAILY Amlodipine Besylate 5 Mg Tablet 5 Mg PO DAILY Ranitidine HCl 150 Mg Tablet 150 Mg PO BID Symbicort 160-4.5 Mcg Inhaler (Budesonide/Formoterol Fumarate) 10.2 Gm Hfa.aer.ad 2 Puff INH BID Duloxetine HCl 60 Mg Capsule.dr 60 Mg PO BID Celecoxib 200 Mg Capsule 200 Mg PO BID Trazodone HCl 100 Mg Tablet 100 Mg PO HS Instructions to patient/family Please see electronic discharge instructions given to patient. Clinical Quality Measures DVT/VTE Risk/Contraindication: Risk Factor Score Per Nursin RFS Level Per Nursing on Admit: 4+=Very High DANITA TEE DO Sep 26, 2018 07:23
== END 2018-09-25 18:24 | DRG 207 ==
LOC: EDUNIT# 05:38 → ER 05:40 → ICU 08:47 → 4TH 09-25 02:55
PROVIDERS: ADMIT Family Medicine; ATTEND Family Medicine
PROC: 5A1955Z Respiratory Ventilation, Greater than 96 Consecutive Hours (ICD-10-PCS; principal; 2018-09-19)
PROC: 0BC38ZZ Extirpation of Matter from Right Main Bronchus, Via Natural or Artificial Opening Endoscopic (ICD-10-PCS; 2018-09-19)
PROC: 0BC78ZZ Extirpation of Matter from Left Main Bronchus, Via Natural or Artificial Opening Endoscopic (ICD-10-PCS; 2018-09-19)
PROC: 0BC38ZZ Extirpation of Matter from Right Main Bronchus, Via Natural or Artificial Opening Endoscopic (ICD-10-PCS; 2018-09-23)
PROC: 0BC78ZZ Extirpation of Matter from Left Main Bronchus, Via Natural or Artificial Opening Endoscopic (ICD-10-PCS; 2018-09-23)
DX: J96.01 Acute respiratory failure with hypoxia (principal); J96.02 Acute respiratory failure with hypercapnia; J13 Pneumonia due to Streptococcus pneumoniae; J43.9 Emphysema, unspecified; E66.2 Morbid (severe) obesity with alveolar hypoventilation; Z68.43 Body mass index [BMI] 50.0-59.9, adult; I38 Endocarditis, valve unspecified; N17.9 Acute kidney failure, unspecified; Z66 Do not resuscitate; I11.0 Hypertensive heart disease with heart failure; I50.30 Unspecified diastolic (congestive) heart failure; I27.20 Pulmonary hypertension, unspecified; I25.10 Atherosclerotic heart disease of native coronary artery without angina pectoris; E78.00 Pure hypercholesterolemia, unspecified; E11.9 Type 2 diabetes mellitus without complications; F41.9 Anxiety disorder, unspecified; F32.9 Major depressive disorder, single episode, unspecified; E87.5 Hyperkalemia; M81.0 Age-related osteoporosis without current pathological fracture; M19.91 Primary osteoarthritis, unspecified site; M54.9 Dorsalgia, unspecified; I49.1 Atrial premature depolarization; R00.1 Bradycardia, unspecified; T44.6X5A Adverse effect of alpha-adrenoreceptor antagonists, initial encounter; Z79.84 Long term (current) use of oral hypoglycemic drugs; Z87.891 Personal history of nicotine dependence
CPT/HCPCS: 31500; 36415; 36569; 36600; 51702; 71045; 76937; 80048; 80053; 80202; 81000; 82805; 82962; 83605; 83735; 83880; 84100; 85007; 85025; 85027; 85610; 85730; 87015; 87040; 87070; 87077; 87081; 87088; 87101; 87116; 87184; 87205; 87206; 87449; 87804; 87899; 89051; 93005; 93306; 94002; 94003; 94640; 94660; 94799; 96361; 96365; 96375; 99291

== ENCOUNTER 2018-11-02 13:50 | Emergency (ER) | payer MEDICARE ==
[~2018-11-02] VITALS: Ht 177.8 cm; Wt 152.4 kg
[~2018-11-02 13:50] MED LIST changes: +CHOL10007 PO; +HYDR-3812 PO; +VITA-203 PO
[2018-11-02] MEDS ORDERED: RT-ALBUTEROL/IPRATROPIUM 3 ML (DUONEB) VIAL ONE (13:57)
--- NOTE | 2018-11-02 15:31 | Diagnostic Imaging Report ---
INDICATION: Shortness of breath. EXAMINATION: PA and lateral views of the chest were obtained. FINDINGS: There is cardiomegaly. There is some venous congestion. There is no pleural effusion or pneumothorax. The mediastinum is unremarkable. IMPRESSION: Cardiomegaly and mild central pulmonary venous congestion. Dictated by: Dictated on workstation # [id number]
[2018-11-02 15:40] LABS: BASOPHILS % (AUTO) 0 % (0-10); EOSINOPHILS # (AUTO) 0.1 10^3/uL (0.0-0.3); EOSINOPHILS % (AUTO) 1 % (0-10); HEMATOCRIT 31 % (40-54); HEMOGLOBIN 9.8 G/DL (13.3-17.7); LYMPHOCYTES # (AUTO) 0.5 X 10^3 (1.0-4.0); LYMPHOCYTES % (AUTO) 5 % (12-44); MEAN CORPUSCULAR HEMOGLOBIN 29 PG (25-34); MEAN CORPUSCULAR HGB CONC 32 G/DL (32-36); MEAN CORPUSCULAR VOLUME 91 FL (80-99); MEAN PLATELET VOLUME 9.9 FL (7.4-10.4); MONOCYTES # (AUTO) 0.9 X 10^3 (0.0-1.0); MONOCYTES % (AUTO) 10 % (0-12); NEUTROPHILS # (AUTO) 7.8 X 10^3 (1.8-7.8); NEUTROPHILS % (AUTO) 84 % (42-75); PLATELET COUNT 233 10^3/uL (130-400); RED CELL DISTRIBUTION WIDTH 15.5 % (10.0-14.5); WHITE BLOOD COUNT 9.3 10^3/uL (4.3-11.0)
[2018-11-02 15:46] LABS: ALANINE AMINOTRANSFERASE 11 U/L (0-55); ALBUMIN 3.5 GM/DL (3.2-4.5); ALKALINE PHOSPHATASE 98 U/L (40-136); BILIRUBIN,TOTAL 0.4 MG/DL (0.1-1.0); BUN/CREATININE RATIO 17; CALCIUM 9.4 MG/DL (8.5-10.1); CARBON DIOXIDE 32 MMOL/L (21-32); CHLORIDE 95 MMOL/L (98-107); CREATININE SERUM 1.05 MG/DL (0.60-1.30); GFR ESTIMATED > 60; GLUCOSE 124 MG/DL (70-105); POTASSIUM 3.8 MMOL/L (3.6-5.0); SODIUM 137 MMOL/L (135-145); TOTAL PROTEIN 6.8 GM/DL (6.4-8.2)
--- NOTE | 2018-11-02 16:01 | ED Respiratory ---
General Chief Complaint: Respiratory Problems Stated Complaint: SOB;NAUSEA Nursing Triage Note: Patient presented to the ER via EMS secondary to complaints of shortness of breath. Upon arrival pt. was 93% on 6L via nasal cannual. Pt. advises he has been short of breath since last night and became progressively worse. Pt. advises he was discharged from [facility] 2 weeks ago and was admitted to [facility] prior to that where he was intubated and on the ventilator for several days secondary to pneumonia. He advises that his niece and nephew have been ill with influenza A. Source: patient Exam Limitations: no limitations History of Present Illness Date Seen by Provider: Nov 02, 2018 Time Seen by Provider: 15:57 Initial Comments This 59-year-old white male presents with the shortness breath cough and symptoms similar to his previous exacerbations of COPD. Patient denies productive cough, chest pain or palpitations, productive cough, nausea vomiting or diarrhea. Allergies and Home Medications Allergies Coded Allergies: cephalexin (Verified Allergy, Unknown, 04/10/16) Home Medications Albuterol Sulfate 2.5 Mg/3 Ml Vial.neb, 2.5 MG IH TID PRN for SHORTNESS OF BREATH, (Reported) Amlodipine Besylate 5 Mg Tablet, 5 MG PO DAILY, (Reported) Atorvastatin Calcium 10 Mg Tablet, 10 MG PO DAILY, (Reported) Budesonide/Formoterol Fumarate 10.2 Gm Hfa.aer.ad, 2 PUFF INH BID, (Reported) Celecoxib 200 Mg Capsule, 200 MG PO BID, (Reported) Cholecalciferol (Vitamin D3) 1,000 Unit Capsule, 1,000 UNIT PO DAILY, (Reported) Cyanocobalamin/Cobamamide 1 Each Tab.subl, 5,000 MCG SL DAILY, (Reported) Duloxetine HCl 60 Mg Capsule.dr, 60 MG PO BID, (Reported) Furosemide 40 Mg Tablet, 40 MG PO BID, (Reported) Hydrocodone/Acetaminophen 1 Each Tablet, 1 TAB PO TID PRN for PAIN-MODERATE, ( Reported) Lisinopril 10 Mg Tablet, 10 MG PO DAILY, (Reported) Multivitamin/Iron/Folic Acid 1 Each Tablet, 1 TAB PO DAILY, (Reported) Pregabalin 150 Mg Capsule, 150 MG PO BID, (Reported) Ranitidine HCl 150 Mg Tablet, 150 MG PO BID, (Reported) Trazodone HCl 100 Mg Tablet, 100 MG PO HS, (Reported) Vitamin A Palmitate 10,000 Unit Capsule, 10,000 UNIT PO DAILY, (Reported) Patient Home Medication List Home Medication List Reviewed: Yes Review of Systems Review of Systems Constitutional: No chills, No fever; malaise, weakness EENTM: No ear pain, No throat pain Respiratory: see HPI, cough Cardiovascular: No chest pain, No palpitations Gastrointestinal: No abdominal pain, No diarrhea, No nausea, No vomiting Genitourinary: no symptoms reported Musculoskeletal: no symptoms reported Skin: No rash Psychiatric/Neurological: No Symptoms Reported Hematologic/Lymphatic: No Symptoms Reported Immunological/Allergic: no symptoms reported Past Mzgkerq-Tnizzf-Bckxsm Hx Past Med/Social Hx: Reviewed Nursing Past Med/Soc Hx Patient Social History Alcohol Use: Denies Use Recreational Drug Use: No (NONE X30 YRS) Smoking Status: Former Smoker Type Used: Cigarettes Former Smoker, Quit: Sep 18, 2015 Recent Foreign Travel: No Contact w/Someone Who Travel: No Recent Infectious Disease Expo: No Recent Hopitalizations: No Immunizations Up To Date Tetanus Booster (TDap): Unknown Date of Pneumonia Vaccine: Sep 04, 2012 Date of Influenza Vaccine: Oct 16, 2017 Seasonal Allergies Seasonal Allergies: Yes Past Medical History Surgeries: Yes (FATTY TUMOR REMOVED FROM TOP OF HEAD. CARDIAC CATH X 2--NO INTERVENTION) Cardiac, Vasectomy Respiratory: Yes Pneumonia, Chronic Bronchitis, Sleep Apnea, COPD, Emphysema Currently Using CPAP: Yes (WAS WEARING AT HOME PER EMS) Currently Using BIPAP: Yes Cardiac: Yes (CHF, CARDIAC CATH X 2--NO INTERVENTION, pulmonary hypertension) Chronic Edema/Swelling, Coronary Artery Disease, High Cholesterol, Hypertension , Valvular Heart Disease Neurological: No Reproductive Disorders: No Sexually Transmitted Disease: No HIV/AIDS: No Genitourinary: Yes (RENAL INSUFFICIENCY) Gastrointestinal: Yes Colitis Musculoskeletal: Yes ("BULGING DISCS" ; CHRONIC "JERKING" OF MUSCLES) Degenerate Disk Disease, Osteoporosis, Arthritis, Back Injury, Chronic Back Pain , Fractures, Spasms Endocrine: Yes (MORBID OBESITY) Diabetes, Non-Insulin dep HEENT: Yes (NEAR SIGHTED) Loss of Vision: Bilateral Hearing Impairment: Denies Cancer: No Psychosocial: Yes Anxiety, Depression Integumentary: No Blood Disorders: No Adverse Reaction/Blood Tranf: No Family Medical History Arthritis 19 MOTHER Cardiovascular disease 19 MOTHER FH: lung cancer 19 FATHER Hypertension 19 MOTHER No Family History of: AIDS Abdominal aortic aneurysm [place]'s disease Alcoholism Alzheimer's disease Aphasia Asthma Cancer of mouth Cataracts Colon cancer Completed stroke Congenital disease Congenital heart disease Coronary thrombosis Cystic fibrosis Deafness or hearing loss Dementia Diabetes mellitus Drug abuse Dysphasia Fibrocystic disease of breast Gastroenteritis Glaucoma Headache disorder Hypercholesterolemia Infertility Kidney disease Myocardial infarction Neoplasm Not obtainable due to adoption Osteoporosis Parkinson's disease Prostate cancer Psychosocial problem Respiratory disorder Seizure disorder Severe allergy Thyroid disease Tuberculosis Visual disorder Heart Disease, Cancer, Hypertension Physical Exam Vital Signs - First Documented 11/02/18 11/02/18 14:00 14:09 Temp 98.2 Pulse 78 Resp 22 B/P (MAP) 114/75 (88) Pulse Ox 97 O2 Delivery Nasal Cannula O2 Flow Rate 4.00 Capillary Refill : Less Than 3 Seconds Height: 5'10.00" Weight: 336lbs. 0.0oz. [id number]; 42.18 BMI Method:Stated General Appearance: WD/WN, no apparent distress Eyes: Bilateral Eye Normal Inspection HEENT: TMs normal Neck: supple, normal inspection Respiratory: decreased breath sounds Cardiovascular: regular rate, rhythm Gastrointestinal: normal bowel sounds Extremities: normal range of motion Neurologic/Psychiatric: no motor/sensory deficits, alert Skin: normal color, warm/dry Procedures/Interventions Date of ETT Placement: Sep 22, 2018 Time of ETT Placement: 758 Progress/Results/Core Measures Suspected Sepsis Recent Fever Within 48 Hours: No Infection Criteria Present: Suspected New Infection New/Unexplained Altered Menta: No Sepsis Screen: No Definite Risk SIRS Temperature:98.2 Pulse: 78 Respiratory Rate: 22 Laboratory Tests 11/02/18 15:03: White Blood Count 9.3 Blood Pressure 114 /75 Mean: 88 Laboratory Tests 11/02/18 15:03: Creatinine 1.05, Platelet Count 233, Total Bilirubin 0.4 Results/Orders Lab Results Laboratory Tests Test 11/02/18 15:03 Range/Units White Blood Count 9.3 4.3-11.0 10^3/uL Red Blood Count 3.42 L 4.35-5.85 10^6/uL Hemoglobin 9.8 L 13.3-17.7 G/DL Hematocrit 31 L 40-54 % Mean Corpuscular Volume 91 80-99 FL Mean Corpuscular Hemoglobin 29 25-34 PG Mean Corpuscular Hemoglobin Concent 32 32-36 G/DL Red Cell Distribution Width 15.5 H 10.0-14.5 % Platelet Count 233 130-400 10^3/uL Mean Platelet Volume 9.9 7.4-10.4 FL Neutrophils (%) (Auto) 84 H 42-75 % Lymphocytes (%) (Auto) 5 L 12-44 % Monocytes (%) (Auto) 10 0-12 % Eosinophils (%) (Auto) 1 0-10 % Basophils (%) (Auto) 0 0-10 % Neutrophils # (Auto) 7.8 1.8-7.8 X 10^3 Lymphocytes # (Auto) 0.5 L 1.0-4.0 X 10^3 Monocytes # (Auto) 0.9 0.0-1.0 X 10^3 Eosinophils # (Auto) 0.1 0.0-0.3 10^3/uL Basophils # (Auto) 0.0 0.0-0.1 10^3/uL Neutrophils % (Manual) 84 % Lymphocytes % (Manual) 5 % Monocytes % (Manual) 11 % Eosinophils % (Manual) 0 % Basophils % (Manual) 0 % Band Neutrophils 0 % Blood Morphology Comment NORMAL Sodium Level 137 135-145 MMOL/L Potassium Level 3.8 3.6-5.0 MMOL/L Chloride Level 95 L 98-107 MMOL/L Carbon Dioxide Level 32 21-32 MMOL/L Anion Gap 10 5-14 MMOL/L Blood Urea Nitrogen 18 7-18 MG/DL Creatinine 1.05 0.60-1.30 MG/DL Estimat Glomerular Filtration Rate > 60 BUN/Creatinine Ratio 17 Glucose Level 124 H 70-105 MG/DL Calcium Level 9.4 8.5-10.1 MG/DL Corrected Calcium 9.8 8.5-10.1 MG/DL Total Bilirubin 0.4 0.1-1.0 MG/DL Aspartate Amino Transf (AST/SGOT) 19 5-34 U/L Alanine Aminotransferase (ALT/SGPT) 11 0-55 U/L Alkaline Phosphatase 98 40-136 U/L Total Protein 6.8 6.4-8.2 GM/DL Albumin 3.5 3.2-4.5 GM/DL Micro Results Microbiology 11/02/18 Influenza Types A,B Antigen (JENNY) - Final, Complete My Orders Orders - YRN HOOVER MD Albuterol/Ipra Inhalation Soln (Duoneb I (11/02/18 13:57) Methylprednisolone Sod Succ (Solu-Medrol (11/02/18 17:30) Albuterol/Ipra Inhalation Soln (Duoneb I (11/02/18 17:30) Svn Small Volume Nebulizer (11/02/18 17:18) Vital Signs/I&O 11/02/18 11/02/18 14:00 14:09 Temp 98.2 Pulse 78 Resp 22 B/P (MAP) 114/75 (88) Pulse Ox 97 96 O2 Delivery Nasal Cannula Nasal Cannula O2 Flow Rate 4.00 6.00 Capillary Refill : Less Than 3 Seconds Blood Pressure Mean: 88 Progress Note : Time: 18:04 Progress Note I discussed the findings with patient and family. Patient received 125 mg IM Medrol IV. Departure Impression Primary Impression: COPD exacerbation Disposition: HOME, SELF-CARE Condition: Improved Departure-Patient Inst. Decision time for Depature: 18:09 Referrals: DANITA TEE DO (PCP/Family) Primary Care Physician Patient Instructions: Exacerbation of COPD Add. Discharge Instructions: Bactrim DS and prednisone as prescribed. Close follow-up with Dr. Tee on Monday. Return if any problems or questions. All discharge instructions reviewed with patient and/or family. Voiced understanding. YRN HOOVER MD Nov 02, 2018 16:01
[2018-11-02 16:06] LABS: BAND NEUTROPHILS 0 %; BASOPHILS % (MANUAL) 0 %; EOSINOPHILS % (MANUAL) 0 %; LYMPHOCYTES % (MANUAL) 5 %; MONOCYTES % (MANUAL) 11 %; NEUTROPHILS % (MANUAL) 84 %; RBC MORPH NORMAL
[2018-11-02] MEDS ORDERED: methylPREDNISolone 125 MG (Solu-MEDROL) VIAL IVP ONE (17:30)
[2018-11-02] MEDS ORDERED: RT-ALBUTEROL/IPRATROPIUM 3 ML (DUONEB) VIAL INH ONE (17:30)
[2018-11-02] MEDS ORDERED: TRIM/SULFAMETH 160/800 (SEPTRA DS) TAB PO ONE (18:30)
[2018-11-02 18:45] VITALS: BP 122/67
--- OUTSIDE RECORDS SUMMARY | 2018-11-04 09:57 | XMS REPORT | Clinical Summary ---
Author Author [facility] Organization [facility] Address Unknown Phone Unavailable Care Team Providers Care Senior Talent Management Consultant Name Role Phone Ricky Cleveland PCP Source Comments Some departments are not documenting in the electronic medical record. If you do not see the information that you expected, contact Release of Information in the Health Information Management department at [phone] for further assistance in locating additional records.[facility] Allergies No Known Allergies Medications End Date [...] units tablet Units by mouth daily. Active buhpatxm-uoo-TL-lycopen-l Take 1 tablet 0 utein (CENTRUM SILVER [...] Taken Vital Sign Reading 08/16/2018 4:42 AM REMNANTS C[facility]TER Blood Pressure 119/68 08/16/2018 8:18 AM REMNANTS CUTTER Pulse 75 08/16/2018 4:42 AM REMNANTS CUTTER Temperature 36.7 C (98 F) - Respiratory Rate - 08/16/2018 8:18 AM REMNANTS CUTTER Oxygen Saturation 99% - Inhaled Oxygen - Concentration 08/15/2018 10:00 AM REMNANTS CUTTER Weight 151.8 kg (334 lb 10.5 oz) 08/15/2018 7:30 AM REMNANTS CUTTER Height 177.8 cm (5' 10") 08/15/2018 10:00 AM REMNANTS CUTTER Body Mass Index 48.02 Plan of Treatment Health Maintenance Due Date Last Done Comments HEPATITIS C SCREENING 1954 PHYSICAL (COMPREHENSIVE) 1961 EXAM HIV SCREENING 1969 DTAP/TDAP VACCINES (1 - 1972 Tdap) COLORECTAL CANCER 2004 SCREENING SHINGLES RECOMBINANT 2004 VACCINE (1 of 2) INFLUENZA VACCINE 04/04/2019 Procedures Comments Procedure Name Priority Date/Time Associated Diagnosis PHOSPHORUS STAT 08/16/2018 4:45 AM REMNANTS CUTTER MAGNESIUM STAT 08/16/2018 4:45 AM [facility]NA[facility]S CUTTER BASIC METABOLIC PANEL STAT 08/16/2018 4:45 AM REMNANTS CUTTER CBC STAT 08/16/2018 4:45 AM [facility]NANTS CUTTER CHEST SINGLE VIEW Routine 08/16/2018 3:15 AM REMNANTS CUTTER POC GLUCOSE 08/15/2018 11:59 AM REMNANTS CUTTER 2-D + DOPPLER DELMAR 08/15/2018 ECHOCARDIOGRAM 9:11 AM REMNANTS CUTTER POC GLUCOSE 08/15/2018 7:34 AM [facility]NANTS CUTTER HEMOGLOBIN A1C STAT 08/15/2018 6:30 AM REMNANTS CUTTER BNP (B-TYPE NATRIURETIC STAT 08/15/2018 PEPTI) 6:30 AM REMNA[facility]S CUTTER COMPREHENSIVE METABOLIC STAT 08/15/2018 PANEL 6:30 AM REMNANTS CUTTER CBC STAT 08/15/2018 6:30 AM [facility]NA[facility] C[facility]TER CONSULT IV THERAPY TEAM Routine 08/15/2018 6:16 AM [facility]NA[facility] C[facility]TER BLOOD GASES, ARTERIAL Routine 08/15/2018 6:00 AM REMNANTS CUTTER ECG 12-LEAD STAT 08/15/2018 5:24 AM [facility]NA[facility]S C[facility]TER GENERAL RAD CHEST Routine 08/14/2018 Diagnosis unknown EXTERNAL IMAGING 4:05 PM [facility] C[facility]TER GRAM STAIN 08/14/2018 3:50 PM [facility] C[facility]TER CULTURE-WOUND/TISSUE/FLUI Routine 08/14/2018 D(AEROBIC 3:50 PM REMNANTS CUTTER ONLY)W/SENSITIVITY VRE SCREEN Routine 08/14/2018 3:50 PM [facility]NA[facility]S C[facility]TER MRSA SCREEN Routine 08/14/2018 3:50 PM REMNANTS C[facility]TER TELEMETRY STRIPS-SCAN 08/14/2018 12:00 AM REMNANTS CUTTER ECG-SCAN 08/14/2018 12:00 AM REMNANTS CUTTER from Last 3 Months Results * CBC (08/16/2018 4:45 AM REMNANTS CUTTER) Only the most recent of 2 results [...] MAIN LAB Specimen Blood Performing Organization Address City/[facility] Phone Number MAIN LAB [address] [place] [address] * PHOSPHORUS (08/16/2018 4:45 AM REMNANTS CUTTER) Phosphorus 4.3Comment: NOTE NEW REFERENCE 2.0 - 4.5 MG/DL [facility] MAIN [facility] RANGES Specimen Blood Performing Organization Address City/[facility] Phone Number MAIN LAB [address] [place] [address] * MAGNESIUM (08/16/2018 4:45 AM REMNANTS CUTTER) Magnesium 2.1 1.6 - 2.6 mg/dL MAIN LAB Specimen Blood Performing Organization Address [facility] Phone Number MAIN LAB [address] [place] [address] * BASIC METABOLIC PANEL (08/16/2018 4:45 AM REMNANTS CUTTER) Sodium 139 137 - 147 MMOL/L [facility] [...] for questions. Specimen Blood Performing Organization Address [facility] Phone Number MAIN LAB [address] [place] [phone] * CHEST SINGLE VIEW (08/16/2018 3:15 AM REMNANTS CUTTER) Impressions Performed At Mild cardiomegaly with improvement [...] Interface, Radiant Results - 08/16/2018 1:56 PM REMNANTS CUTTER CHEST SINGLE VIEW Indication: Male, 62 years [...] RESULTS * POC GLUCOSE (08/15/2018 11:59 AM REMNANTS CUTTER) Only the most recent of 2 results within the time period is included. Glucose, POC 100 70 - 100 MG/DL [facility] MAIN LAB Performing Organization Address City/State/Zipcode Phone Number MAIN LAB [address] [place] [address] * 2-D + DOPPLER ECHOCARDIOGRAM (08/15/2018 9:11 AM REMNANTS CUTTER) IVS 1.31 0.6 - 1.0 cm OTHER [...] [place] OTHER OUTSIDE LAB CV ECHO PV TURBINE TECHNICIAN DANIELLE Ricci- Defnity OTHER OUTSIDE LAB FS [...] 34 OTHER OUTSIDE LAB Cardiology Ultrasound Siemens [id number] OTHER OUTSIDE LAB Machine Left Ventricle Mass [...] studies available for comparison. Performing Organization Address City/[facility]/Zipcode Phone Number OTHER OUTSIDE LAB * BNP (B-TYPE NATRIURETIC PEPTI) (08/15/2018 6:30 AM REMNANTS CUTTER) B Type Natriuretic 38.0 0 - 100 PG/ML [facility] MAIN [facility] Peptide Specimen Blood Performing Organization Address City/[facility] Phone Number [facility] [address] [place] [address] * HEMOGLOBIN A1C (08/15/2018 6:30 AM REMNANTS CUTTER) Hemoglobin A1C 6.1 (H) 4.0 - 6.0 % [facility] MAIN [facility] Comment: The ADA recommends that most patients with type 1 and type 2 diabetes maintain an A1c level <7%. Specimen Blood Performing Organization Address [facility] Phone Number [facility] [address] [place] [address] * COMPREHENSIVE METABOLIC PANEL (08/15/2018 6:30 AM REMNANTS CUTTER) Sodium 133 (L) 137 - 147 MMOL/L [...] for questions. Specimen Blood Performing Organization Address City/[facility]/Zipcode Phone Number MAIN LAB [address] [place] [address] * BLOOD GASES, ARTERIAL (08/15/2018 6:00 AM REMNANTS CUTTER) pH-Arterial 7.36 7.35 - 7.45 MAIN LAB pCO2-Arterial 67 (H) 35 - 45 [facility] MAIN LAB pO2-Arterial 57 (L) 80 - 100 [facility] MAIN LAB Base Excess-Arterial 9.3 MMOL/L MAIN LAB O2 Sat-Arterial 88.8 (L) 95 - 99 % MAIN LAB Knqwyguseue-ZDR-Efu 32.8 (H) 21 - 28 MMOL/L MAIN LAB Specimen Blood, arterial - Blood Performing Organization Address [facility] Phone Number MAIN LAB [address] [place] [address] * GENERAL RAD CHEST EXTERNAL IMAGING (08/14/2018 4:05 PM REMNANTS CUTTER) Narrative Performed At This order has been auto finalized and does not contain a result. * VRE SCREEN (08/14/2018 3:50 PM REMNANTS CUTTER) Battery Name VRE SCREEN MAIN LAB Specimen Description PERIRECTAL SWAB MAIN LAB Special Requests NONE MAIN LAB Culture NO VRE ISOLATED MAIN LAB Report Status FINAL MAIN LAB 08/16/2018 Specimen Perirectal Swab Performing Organization Address City/[facility]/Zipcode Phone Number MAIN LAB [address] [place] [address] * MRSA SCREEN (08/14/2018 3:50 PM REMNANTS CUTTER) Battery Name MRSA SCREEN MAIN LAB Specimen Description NASAL MAIN LAB Special Requests NONE MAIN LAB Culture NO MRSA ISOLATED MAIN LAB Report Status FINAL MAIN LAB 08/16/2018 Specimen Nasal Performing Organization Address City/[facility] Phone Number MAIN LAB [address] [place] [address] * GRAM STAIN (08/14/2018 3:50 PM REMNANTS CUTTER) Battery Name GRAM STAIN MAIN LAB Specimen Description SWAB MAIN LAB FACE BURN WOUND Special Requests NONE MAIN LAB Gram Stain NO NEUTROPHILS SEEN MAIN LAB NO ORGANISMS SEEN Report Status FINAL MAIN LAB 08/14/2018 Specimen Swab Performing Organization Address [facility] Phone Number MAIN LAB [address] [place] [address] * CULTURE-WOUND/TISSUE/FLUID(AEROBIC ONLY)W/SENSITIVITY (08/14/2018 3:50 PM REMNANTS CUTTER ) Battery Name ROUTINE CULTURE MAIN LAB [...] (MCG/ML) INTERPRETATION Four colonies acinetobacter species Piperacil/Tazobactam CHRISYT ROJAS SUSCEPTIBLE: Susceptible Four colonies acinetobacter species Ampicillin/Sulbactam CHRISTY ROJAS SUSCEPTIBLE: Susceptible Four colonies acinetobacter species Method CHRISTY ROJAS CHRISTY ROJAS Four colonies acinetobacter species Performing Organization Address City/[facility] Phone Number MAIN LAB [address] [place] [address] * TELEMETRY STRIPS-SCAN (08/14/2018 12:00 AM REMNANTS CUTTER) Narrative Performed At Ordered by an unspecified provider. * ECG-SCAN (08/14/2018 12:00 AM REMNANTS CUTTER) Narrative Performed At Ordered by an unspecified provider. from Last 3 Months Insurance Payer Benefit Subscriber ID Type Phone Address Plan / Group MEDICARE MEDICARE xxxxxxxxxx Medicare PART A AND B (Home) [place] [address] Advance Directives Patient has advance care planning documents, and code status on file. For more information, please contact: [facility] [address] [place] [address] Date Inactivated Comments Code Status Date Activated 08/16/2018 3:45 PM Full Code 08/14/2018 3:46 PM Provider has discussed Code Status No, discussion not w/Patient or Family? necessary based on Dx
--- OUTSIDE RECORDS SUMMARY | 2018-11-04 09:58 | XMS REPORT | Encounter Summary ---
Author Author [facility] Organization [facility] Address Unknown Phone Unavailable Care Team Providers Care Home Health Speech Therapist Name Role Phone Ricky Cleveland PCP Encounter Details Care Team Description Date Type Department 08/14/2018 Hospital [facility] Encounter Hospital Radiology [facility] [address] [place] [id number] Social History Date Tobacco Use Types [...] 0 ZESTRIL) 10 mg tablet mouth daily. 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
--- OUTSIDE RECORDS SUMMARY | 2018-11-04 09:58 | XMS REPORT | Encounter Summary ---
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 administered by RT, will be per RT policy., 2 puffs Given 08/15/2018 8:01 PM [facility] 08/16/2018 7:44 AM [facility] 200 mg celecoxib (CELEBREX) capsule 200 mg Given 200 mg, Oral, TWICE DAILY, First dose on Mon08/15/18 at 1415, Until Discontinued 200 mg Given 08/15/2018 8:18 PM [facility] 200 mg Given 08/15/2018 1:32 PM [facility] 08/16/2018 7:44 AM [facility] [address] (CYMBALTA) capsule 60 mg Given 60 mg, Oral, TWICE DAILY, First dose on Mon08/14/18 at 2100, Until Discontinued 60 mg Given 08/15/2018 8:18 PM [facility] 60 mg Given 08/15/2018 9:09 AM [facility] 08/16/2018 7:43 AM [facility] 40 mg Abdomen:RLQ enoxaparin (LOVENOX) syringe 40 [...] mg Abdominal Tissue Given 08/15/2018 8:17 PM [facility] 40 mg Abdominal Tissue Given 08/15/2018 9:11 AM [facility] 08/16/2018 7:44 AM [facility] 20 mg famotidine (PEPCID) tablet 20 mg Given 20 mg, Oral, TWICE DAILY, First dose on Mon08/15/18 at 1415, Until Discontinued 20 mg Given 08/15/2018 8:18 PM [facility] 20 mg Given 08/15/2018 1:32 PM [facility] 08/14/2018 6:16 PM [facility] 50 mcg fentaNYL citrate PF (SUBLIMAZE) Given injection 25-200 mcg 25-200 mcg, Intravenous, EVERY 15 MIN PRN, Starting Mon08/14/18 at 1546, Until Mon08/16/18 at 1540, Other..., Procedural Pain, Slow IV push over 3-5 minutes. Max total not to exceed 200 mcg , 50 mcg Given 08/14/2018 5:46 PM [facility] 08/16/2018 7:46 AM [facility] 60 mg furosemide (LASIX) injection 60 mg Given 60 mg, Intravenous, EVERY 12 HOURS, 2 doses, First dose on Mon08/15/18 at 2200, Last dose on Mon08/16/18 at 0900, PROTECT FROM LIGHT, 60 mg Given 08/15/2018 10:05 PM [facility] 08/15/2018 6:56 AM [facility] 80 mg furosemide (LASIX) injection 80 mg Given 80 mg, Intravenous, EVERY 12 HOURS, 4 doses, First dose on Mon08/15/18 at 0600, Last dose on Mon08/16/18 at 2100, PROTECT FROM LIGHT, furosemide (LASIX) tablet 40 mg 40 mg, Oral, TWICE DAILY, First dose on Mon08/17/18 at 0900, Until Discontinued 08/16/2018 8:10 AM [facility] 0.5 mg ipratropium bromide (ATROVENT) 0.02 % Given nebulizer solution 0.5 mg 0.5 mg, Inhalation, RT EVERY 4 HOURS AND PRN, First dose on Mon08/14/18 at 1600, Until Discontinued, ADMINISTERED BY RT, 0.5 mg Given 08/16/2018 4:49 AM [facility] 0.5 mg Given 08/16/2018 12:26 AM [facility] 08/16/2018 7:45 AM [facility] 10 mg lisinopril (PRINIVIL; ZESTRIL) tablet 10 Given mg 10 mg, Oral, DAILY, First dose on Mon08/15/18 at 0900, Until Discontinued 10 mg Given 08/15/2018 9:09 AM [facility] 08/16/2018 10:25 AM [facility] mupirocin (BACTROBAN) 2 % topical Given ointment Topical, TWICE DAILY, First dose on Mon08/15/18 at 0900, Until Discontinued, Apply to bilateral nares with cotton tipped applicator BID, Given 08/15/2018 8:19 PM [facility] Given 08/15/2018 9:09 AM [facility] 08/16/2018 10:23 AM [facility] nystatin (MYCOSTATIN) topical cream Given Topical, TWICE DAILY, First dose on Mon08/15/18 at 1100, Until Discontinued, Apply to the underneath of right breast, Given 08/15/2018 8:19 PM [facility] Given 08/15/2018 12:00 PM [facility] 08/14/2018 4:58 PM [facility] 5 mg oxyCODONE (ROXICODONE, OXY-IR) tablet 5 Given mg 5 mg, Oral, EVERY 4 HOURS PRN, Starting Mon08/14/18 at 1546, Until Mon08/14/18 at 2031, Pain PO 08/16/2018 10:22 AM [facility] 10 mg oxyCODONE (ROXICODONE, OXY-IR) tablet Given 5-10 mg 5-10 mg, Oral, EVERY 4 HOURS PRN, Starting Mon08/14/18 at 2030, Until Mon08/16/18 at 1540, Pain PO 10 mg Given 08/16/2018 4:51 AM [facility] 5 mg Given 08/15/2018 11:59 PM [facility] 08/16/2018 10:24 AM [facility] 2 sprays oxymetazoline (AFRIN) 0.05 % nasal [...] continued., 2 sprays Given 08/15/2018 8:19 PM [facility] 2 sprays Given 08/15/2018 7:30 AM [facility] 08/15/2018 9:12 AM [facility] 2 Diluted mL perflutren lipid microspheres (DEFINITY) Given injection 1-20 Diluted mL 1-20 Diluted mL, Intravenous, ONCE, 1 dose, Mon08/15/18 at 0915, NOTE: This is a HIGH ALERT Medication., MAC Procedure Area Only - Medications 08/16/2018 7:45 AM [facility] 150 mg pregabalin (LYRICA) capsule 150 mg Given 150 mg, Oral, TWICE DAILY, First dose on Mon08/15/18 at 1415, Until Discontinued 150 mg Given 08/15/2018 8:17 PM [facility] 150 mg Given 08/15/2018 1:32 PM [facility] 08/16/2018 7:44 AM [facility] 2 tablets senna/docusate (SENOKOT-S) tablet 2 Given tablet 2 tablet, Oral, TWICE DAILY, First dose on Mon08/14/18 at 2100, Until Discontinued, Hold for loose stools, 2 tablets Given 08/15/2018 8:19 PM [facility] 2 tablets Given 08/15/2018 9:09 AM [facility] 08/15/2018 3:53 PM [facility] 1 spray sodium chloride (SEA MIST) 0.65 % nasal Given spray 1-2 spray 1-2 spray, Each Nostril, NEEDED, Starting Mon08/15/18 at 0700, Until Mon08/16/18 at 1540, Congestion 08/15/2018 8:18 PM [facility] 100 mg traZODone (DESYREL) tablet 100 mg Given 100 mg, Oral, AT BEDTIME DAILY, First dose on Mon08/14/18 at 2100, Until Discontinued 100 mg Given 08/14/2018 9:18 PM [facility] in this encounter
== END 2018-11-02 18:45 | disposition home or self-care (01) ==
LOC: EDUNIT# 13:50 → ER 13:52
DX: J44.1 Chronic obstructive pulmonary disease with (acute) exacerbation (principal); I11.0 Hypertensive heart disease with heart failure; I50.9 Heart failure, unspecified; I25.10 Atherosclerotic heart disease of native coronary artery without angina pectoris; E78.00 Pure hypercholesterolemia, unspecified; M81.0 Age-related osteoporosis without current pathological fracture; E66.01 Morbid (severe) obesity due to excess calories; E11.9 Type 2 diabetes mellitus without complications; F41.9 Anxiety disorder, unspecified; F32.9 Major depressive disorder, single episode, unspecified; Z87.19 Personal history of other diseases of the digestive system; Z88.1 Allergy status to other antibiotic agents; Z79.51 Long term (current) use of inhaled steroids; Z82.49 Family history of ischemic heart disease and other diseases of the circulatory system; Z80.1 Family history of malignant neoplasm of trachea, bronchus and lung; Z87.891 Personal history of nicotine dependence; Z98.890 Other specified postprocedural states; Z95.9 Presence of cardiac and vascular implant and graft, unspecified; Z98.52 Vasectomy status; Z87.01 Personal history of pneumonia (recurrent); Z68.42 Body mass index [BMI] 45.0-49.9, adult
CPT/HCPCS: 36415; 71046; 80053; 85007; 85027; 87804; 93005; 94640

== ENCOUNTER 2019-01-04 01:03 | Inpatient (IN) | payer MEDICARE ==
[2019-01-04] VITALS (27 sets, daily range): BP systolic 111–236; BP diastolic 68–129
[~2019-01-04] VITALS: Ht 177.8 cm; Wt 154.0 kg
[2019-01-04] MEDS ORDERED: methylPREDNISolone 125 MG (Solu-MEDROL) VIAL IV STA (01:29)
[2019-01-04] MEDS ORDERED: NITROGLYCERIN 2% OINT 1 GM UNIT DOSE PACKET TOP ONE (01:30)
[2019-01-04] MEDS ORDERED: RT-ALBUTEROL/IPRATROPIUM 3 ML (DUONEB) VIAL INH ONE (01:30)
--- NOTE | 2019-01-04 01:30 | NUR ---
PT REPORTS HE IS UNSURE IF HE TOOK HIS HS BP MEDICATIONS.
[2019-01-04] MEDS ORDERED: FUROSEMIDE 40 MG/4 ML INJ (LASIX) IVP ONE (01:45)
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
[2019-01-04 02:24] LABS: BASOPHILS % (AUTO) 0 % (0-10); EOSINOPHILS % (AUTO) 0 % (0-10); HEMATOCRIT 36 % (40-54); HEMOGLOBIN 10.7 G/DL (13.3-17.7); LYMPHOCYTES # (AUTO) 0.6 X 10^3 (1.0-4.0); LYMPHOCYTES % (AUTO) 8 % (12-44); MEAN CORPUSCULAR HEMOGLOBIN 28 PG (25-34); MEAN CORPUSCULAR HGB CONC 30 G/DL (32-36); MEAN CORPUSCULAR VOLUME 94 FL (80-99); MEAN PLATELET VOLUME 9.4 FL (7.4-10.4); MONOCYTES # (AUTO) 0.7 X 10^3 (0.0-1.0); MONOCYTES % (AUTO) 8 % (0-12); NEUTROPHILS # (AUTO) 6.7 X 10^3 (1.8-7.8); NEUTROPHILS % (AUTO) 84 % (42-75); PLATELET COUNT 168 10^3/uL (130-400)
[2019-01-04 02:27] LABS: ABG BASE EXCESS 19.1 MMOL/L (-2.5-2.5); ABG OXYGEN SATURATION 98 % (94-100); ABG PO2 96 MMHG (79-93); ABG TCO2 50.5 MMOL/L (21.0-31.0)
[2019-01-04 02:32] LABS: ABG PCO2 108 MMHG (35-45); ABG PH 7.26 (7.37-7.43); ALLENS TEST YES-POS; INSPIRED O2 6; PATIENT TEMP 97.2; VENTILATOR NO
[2019-01-04 02:36] LABS: PROTHROMBIN TIME PATIENT 13.6 SEC (12.2-14.7)
[2019-01-04 02:44] LABS: ALANINE AMINOTRANSFERASE 16 U/L (0-55); ALBUMIN 3.6 GM/DL (3.2-4.5); ALKALINE PHOSPHATASE 116 U/L (40-136); BILIRUBIN,TOTAL 0.3 MG/DL (0.1-1.0); BUN/CREATININE RATIO 14; CALCIUM 9.6 MG/DL (8.5-10.1); CARBON DIOXIDE 39 MMOL/L (21-32); CHLORIDE 92 MMOL/L (98-107); CREATININE SERUM 0.93 MG/DL (0.60-1.30); GFR ESTIMATED > 60; GLUCOSE 119 MG/DL (70-105); MAGNESIUM 2.1 MG/DL (1.8-2.4); POTASSIUM 4.4 MMOL/L (3.6-5.0); SODIUM 143 MMOL/L (135-145); TOTAL PROTEIN 7.7 GM/DL (6.4-8.2)
[2019-01-04 02:45] LABS: ANISOCYTOSIS SLIGHT; BAND NEUTROPHILS 3 %; LYMPHOCYTES % (MANUAL) 11 %; MONOCYTES % (MANUAL) 5 %; NEUTROPHILS % (MANUAL) 81 %
[2019-01-04] MEDS ORDERED: LEVOFLOXACIN 500 MG/100 ML IV 100 ML IV ONE (03:00)
[2019-01-04] MEDS ORDERED: LEVOFLOXACIN 750 MG/150 ML IV 150 ML IV SCH (03:00)
[2019-01-04 03:04] LABS: TSH (THYROID ANALYZER) 0.88 UIU/ML (0.35-4.94)
[2019-01-04] MEDS ORDERED: LEVOFLOXACIN 750 MG/150 ML IV 150 ML IV ONE (03:15)
[2019-01-04] MEDS ORDERED: hydrALAZINE (APESOLINE) 20 MG/ML VIAL IV ONE ×2 (04:00→04:30)
[2019-01-04 04:17] LABS: BILIRUBIN,URINE NEGATIVE (NEGATIVE); CLARITY,URINE CLEAR; COLOR,URINE YELLOW; GLUCOSE, URINE (UA) NEGATIVE (NEGATIVE); KETONES,URINE NEGATIVE (NEGATIVE); LEUKOCYTE ESTERASE ,URINE NEGATIVE (NEGATIVE); NITRITE,URINE NEGATIVE (NEGATIVE); PH,URINE 5 (5-9); PROTEIN,URINE 4+ (NEGATIVE); UROBILINOGEN,URINE NORMAL (NORMAL)
[2019-01-04 04:21] LABS: ABG BASE EXCESS 20.5 MMOL/L (-2.5-2.5); ABG OXYGEN SATURATION 96 % (94-100); ABG PO2 73 MMHG (79-93); ABG TCO2 50.4 MMOL/L (21.0-31.0)
[2019-01-04 04:26] LABS: BACTERIA,URINE TRACE /HPF; RBC,URINE 50-100 /HPF; SQUAMOUS EPITHELIAL CELL,UR 0-2 /HPF
[2019-01-04 04:29] LABS: AMPHETAMINE SCREEN, URINE NEGATIVE (NEGATIVE); BARBITURATE SCREEN URINE NEGATIVE (NEGATIVE); BENZODIAZEPINES SCREEN URINE NEGATIVE (NEGATIVE); CANNABINOID SCREEN, URINE POSITIVE (NEGATIVE); COCAINE SCREEN URINE NEGATIVE (NEGATIVE); METHADONE STAT NEGATIVE (NEGATIVE); METHAMPHETAMINE SCREEN URINE S NEGATIVE (NEGATIVE); OPIATE SCREEN URINE POSITIVE (NEGATIVE); OXYCODONE STAT NEGATIVE (NEGATIVE); PROPOXYPHENE STAT NEGATIVE (NEGATIVE); TRICYCLIC ANTIDEPRESSANTS SCRE NEGATIVE (NEGATIVE)
[2019-01-04 04:34] LABS: ABG PCO2 89 MMHG (35-45); ABG PH 7.34 (7.37-7.43); ALLENS TEST YES-POS; INSPIRED O2 40% BIPAP; PATIENT TEMP 96.3; VENTILATOR NO
--- NOTE | 2019-01-04 04:45 | NUR ---
KEMAR JERONIMO admitted to room CU10-1, with an admitting diagnosis of ACUTE ON CHRONIC RESPIRATORY FAILURE, HYPERTENSION, BILBASILAR INFILTRATES, CHF HISTORY, on 01/04/19 from ED via WHEELCHAIR, accompanied by HOSPITAL STAFF. KEMAR JERONIMO introduced to surroundings, call light, bed controls, phone, TV, temperature control, lights, meal times, smoking policy, visitor policy, side rail policy, bathrooms and showers. Patient Rights given to patient in the handbook.KEMAR JERONIMO verbalizes understanding that [facility] is not responsible for the loss or damage to any personal effects or valuables that are kept in the patients posession during their hospitalization. KEMAR JERONIMO verbalizes understanding of Interdisciplinary Patient Education. Patient and/or family were informed about the Rapid Response Team and its purpose.
[2019-01-04] MEDS: MAGNESIUM 1 GM/100 ML IVPB 100 ML IV SCH (05:52)
[2019-01-04] MEDS: KCL 20 MEQ TAB (K-DUR) PO SCH (05:52)
[2019-01-04] MEDS: POTASSIUM CL 10MEQ/50ML IVPB 50 ML IV SCH (05:52)
[2019-01-04] MEDS ORDERED: RT-ALBUTEROL/IPRATROPIUM 3 ML (DUONEB) VIAL INH PRN (06:15)
[2019-01-04] MEDS: NITROGLYCERIN 2% OINT 1 GM UNIT DOSE PACKET TOP SCH ×3 (06:29→17:45)
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
[2019-01-04] MEDS ORDERED: ONDANSETRON 4 MG/2 ML (SDV) Z0FRAN IV PRN (07:15)
[2019-01-04] MEDS: D5 1/2 NS W/KCL 20 MEQ/L 1,000 ML IV SCH ×3 (07:40→13:34)
[2019-01-04] MEDS: methylPREDNISolone 125 MG (Solu-MEDROL) VIAL IVP SCH ×3 (07:40→20:15)
--- NOTE | 2019-01-04 07:44 | NUR ---
DR. SERVIN NOTIFIED OF CONSULT.
[2019-01-04] MEDS: hydrALAZINE (APESOLINE) 20 MG/ML VIAL IV PRN ×2 (07:48→18:08)
--- NOTE | 2019-01-04 07:49 | Diagnostic Imaging Report ---
INDICATION: Shortness of breath. COMPARISON: 11/02/2018. FINDINGS: There is cardiomegaly and vascular congestion worsened from prior. There are small pleural effusions new. IMPRESSION: Worsened failure pattern when compared to previous. Dictated by: Dictated on workstation # [id number]
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
[2019-01-04] MEDS ORDERED: ENOXAPARIN 40 MG/0.4 ML (LOVENOX) SYR SC SCH (08:30)
--- NOTE | 2019-01-04 08:31 | Consultation-Cardiology ---
HPI-Cardiology Cardiology Consultation: Date of Consultation 01/04/19 Time Seen by a Provider: 08:25 Date of Admission 01-03-19 Attending Physician Ricky Cleveland DO Admitting Physician Ricky Cleveland DO Consulting Physician Elvin Orta MD HPI: Chief Complaint: Acute resp failure Mr. Jeronimo is a 63 year old male admitted to ICU 10 from the ED. He reports over the course of the last week he has been having progressive SOB with frequent productive cough. He reports a sensation of "burning" in his chest early this morning which has resolved. He is currently on Bi-pap. He feels his breathing has improved. He denies any LE swelling. He denies any palpitations , syncope or near syncope. He denies any n/v/d. He denies any fever or chills. He states he has home health services. Review of Systems-Cardiology Review of Systems Constitutional: No chills, No fever Eyes: No vision change Ears/Nose/Throat: No epistaxis, No recent hearing loss Respiratory: As described under HPI Cardiovascular: As described under HPI Gastrointestinal: No constipation, No diarrhea, No nausea, No vomiting Genitourinary: No dysuria, No hematuria Musculoskeletal: joint pain Skin: No rash, No ulcerations Psychiatric/Neurological: No seizure, No focal weakness, No syncope Hematologic: No bleeding abnormalities DEW-Slclea-Kndwna Hx Patient Social History Marrital Status: Employed/Student: unemployed, retired Alcohol Use: Past History (HISTORY OF ABUSE/HEAVY USE--CLAIMS NONE FOR 3 YEARS , PER PT ON 01/04/19) Recreational Drug Use: Yes (THC--CLAIMS NONE FOR 5 YEARS, BUT TESTED + FOR THC 01/2018 AND 01/04/19) Drug of Choice: THC Smoking Status: Former Smoker (> 2 PPD) Type Used: Cigarettes 2nd Hand Smoke Exposure: No Recent Foreign Travel: No Recent Infectious Disease Expo: No Hospitalization with Isolation: Denies Immunizations Up To Date Tetanus Booster (TDap): Unknown Date of Pneumonia Vaccine: Sep 04, 2012 Date of Influenza Vaccine: Oct 16, 2017 Past Medical History PMH As described under Assessment. Family Medical History Family Medical History: He does not report a family history of early coraonary arery disease or sudden cardiac . He does not report a family history of stroke. Family History: Arthritis 19 MOTHER Cardiovascular disease 19 MOTHER FH: lung cancer 19 FATHER Hypertension 19 MOTHER No Family History of: AIDS Abdominal aortic aneurysm Alfonzo's disease Alcoholism Alzheimer's disease Aphasia Asthma Cancer of mouth Cataracts Colon cancer Completed stroke Congenital disease Congenital heart disease Coronary thrombosis Cystic fibrosis Deafness or hearing loss Dementia Diabetes mellitus Drug abuse Dysphasia Fibrocystic disease of breast Gastroenteritis Glaucoma Headache disorder Hypercholesterolemia Infertility Kidney disease Myocardial infarction Neoplasm Not obtainable due to adoption Osteoporosis Parkinson's disease Prostate cancer Psychosocial problem Respiratory disorder Seizure disorder Severe allergy Thyroid disease Tuberculosis Visual disorder Allergies and Home Medications Allergies Coded Allergies: cephalexin (Verified Allergy, Unknown, 04/10/16) Home Medications Albuterol Sulfate 2.5 Mg/3 Ml Vial.neb, 2.5 MG IH TID PRN for SHORTNESS OF BREATH, (Reported) Amlodipine Besylate 5 Mg Tablet, 5 MG PO DAILY, (Reported) Atorvastatin Calcium 10 Mg Tablet, 10 MG PO DAILY, (Reported) Budesonide/Formoterol Fumarate 10.2 Gm Hfa.aer.ad, 2 PUFF INH BID, (Reported) Celecoxib 200 Mg Capsule, 200 MG PO BID, (Reported) Cholecalciferol (Vitamin D3) 1,000 Unit Capsule, 1,000 UNIT PO DAILY, (Reported) Cyanocobalamin/Cobamamide 1 Each Tab.subl, 5,000 MCG SL DAILY, (Reported) Duloxetine HCl 60 Mg Capsule.dr, 60 MG PO BID, (Reported) Furosemide 40 Mg Tablet, 40 MG PO BID, (Reported) Hydrocodone/Acetaminophen 1 Each Tablet, 1 TAB PO TID PRN for PAIN-MODERATE, ( Reported) Lisinopril 10 Mg Tablet, 10 MG PO DAILY, (Reported) Multivitamin/Iron/Folic Acid 1 Each Tablet, 1 TAB PO DAILY, (Reported) Pregabalin 150 Mg Capsule, 150 MG PO BID, (Reported) Ranitidine HCl 150 Mg Tablet, 150 MG PO BID, (Reported) Trazodone HCl 100 Mg Tablet, 100 MG PO HS, (Reported) Vitamin A Palmitate 10,000 Unit Capsule, 10,000 UNIT PO DAILY, (Reported) Physical Exam-Cardiology Physical Exam Vital Signs/I&O 01/04/19 01/04/19 01/04/19 01/04/19 01:03 01:03 01:47 04:40 Temp 97.2 97.2 Pulse 73 61 Resp 20 16 B/P (MAP) 202/96 (131) 166/82 (110) Pulse Ox 96 95 97 97 O2 Delivery Nasal Cannula Nasal Cannula Nasal Cannula NIV Bilevel O2 Flow Rate 6.00 6.00 01/04/19 01/04/19 01/04/19 01/04/19 04:45 04:45 04:49 04:49 Temp 98.3 Pulse 64 78 Resp 27 Pulse Ox 95 93 93 O2 Delivery NIV Bilevel O2 Flow Rate 40.00 FiO2 40 40 01/04/19 01/04/19 01/04/19 01/04/19 04:50 04:55 05:15 05:30 Pulse 69 90 68 67 Resp 19 11 11 B/P (MAP) 151/79 (103) 156/74 (101) 159/82 (107) Pulse Ox 97 96 97 O2 Delivery NIV Bilevel NIV Bilevel NIV Bilevel O2 Flow Rate 40.00 40.00 40.00 01/04/19 01/04/19 01/04/19 01/04/19 05:45 06:00 06:42 07:53 Temp 98.3 Pulse 65 65 68 Resp 23 16 22 B/P (MAP) 165/81 (109) 164/90 (114) Pulse Ox 97 98 93 O2 Delivery NIV Bilevel NIV Bilevel O2 Flow Rate 40.00 40.00 40.00 Capillary Refill : Less Than 3 Seconds Constitutional: AAO x 3, well-developed, well-nourished HEENT: PERRL, hearing is well preserved Neck: No carotid bruit; carotid pulses are 2 + bilaterally Respiratory: rhonchi (scattered; diminshed lower lobes bilat) Cardiovascular: regular rate-rhythm; No JVD; S1 and S2 Gastrointestinal: No tender; soft, round, audible bowel sounds Extremities: no lower extremity edema bilateral Neurologic/Psychiatric: grossly intact, power is 5/5 both on sides Skin: No rash, No ulcerations Data Review Labs Laboratory Tests 01/04/19 02:15: White Blood Count 8.0, Red Blood Count 3.85L, Hemoglobin 10.7L, Hematocrit 36L, Mean Corpuscular Volume 94, Mean Corpuscular Hemoglobin 28, Mean Corpuscular Hemoglobin Concent 30L, Red Cell Distribution Width 16.0H, Platelet Count 168, Mean Platelet Volume 9.4, Neutrophils (%) (Auto) 84H, Lymphocytes (%) (Auto) 8L , Monocytes (%) (Auto) 8, Eosinophils (%) (Auto) 0, Basophils (%) (Auto) 0, Neutrophils # (Auto) 6.7, Lymphocytes # (Auto) 0.6L, Monocytes # (Auto) 0.7, Eosinophils # (Auto) 0.0, Basophils # (Auto) 0.0, Neutrophils % (Manual) 81, Lymphocytes % (Manual) 11, Monocytes % (Manual) 5, Band Neutrophils 3, Anisocytosis SLIGHT, Prothrombin Time 13.6, INR Comment 1.0, Activated Partial Thromboplast Time 41H, Sodium Level 143, Potassium Level 4.4, Chloride Level 92L , Carbon Dioxide Level 39H, Anion Gap 12, Blood Urea Nitrogen 13, Creatinine 0.93, Estimat Glomerular Filtration Rate > 60, BUN/Creatinine Ratio 14, Glucose Level 119H, Calcium Level 9.6, Corrected Calcium 9.9, Magnesium Level 2.1, Total Bilirubin 0.3, Aspartate Amino Transf (AST/SGOT) 21, Alanine Aminotransferase (ALT/SGPT) 16, Alkaline Phosphatase 116, Troponin I < 0.028, B- Type Natriuretic Peptide 82.1, Total Protein 7.7, Albumin 3.6, TSH [place] Testing 0.88, Serum Alcohol < 10 01/04/19 02:20: Blood Gas Puncture Site LT RADIAL, Blood Gas Patient Temperature 97.2, Arterial Blood pH 7.26*L, Arterial Blood Partial Pressure CO2 108*H, Arterial Blood Partial Pressure O2 96H, Arterial Blood HCO3 47*H, Arterial Blood Total CO2 50.5H, Arterial Blood Oxygen Saturation 98, Arterial Blood Base Excess 19.1H, Neil Test YES-POS, Blood Gas Ventilator Setting NO, Blood Gas Inspired Oxygen 6 01/04/19 03:20: Lactic Acid Level 0.64 01/04/19 04:11: Urine Color YELLOW, Urine Clarity CLEAR, Urine pH 5, Urine Specific [place] 1.015L, Urine Protein 4+, Urine Glucose (UA) NEGATIVE, Urine Ketones NEGATIVE, Urine Nitrite NEGATIVE, Urine Bilirubin NEGATIVE, Urine Urobilinogen NORMAL, Urine Leukocyte Esterase NEGATIVE, Urine RBC (Auto) 4+H, Urine RBC 50-100H, Urine WBC NONE, Urine Squamous Epithelial Cells 0-2, Urine Crystals NONE, Urine Bacteria TRACE, Urine Casts PRESENT, Urine Hyaline Casts 10-25H, Urine Mucus NEGATIVE, Urine Culture Indicated NO, Urine Opiates Screen POSITIVEH, Urine Oxycodone Screen NEGATIVE, Urine Methadone Screen NEGATIVE, Urine Propoxyphene Screen NEGATIVE, Urine Barbiturates Screen NEGATIVE, Ur Tricyclic Antidepressants Screen NEGATIVE, Urine Phencyclidine Screen NEGATIVE, Urine Amphetamines Screen NEGATIVE, Urine Methamphetamines Screen NEGATIVE, Urine Benzodiazepines Screen NEGATIVE, Urine Cocaine Screen NEGATIVE, Urine Cannabinoids Screen POSITIVEH 01/04/19 04:13: Blood Gas Puncture Site LT RAD, Blood Gas Patient Temperature 96.3, Arterial Blood pH 7.34*L, Arterial Blood Partial Pressure CO2 89*H, Arterial Blood Partial Pressure O2 73L, Arterial Blood HCO3 48*H, Arterial Blood Total CO2 50.4H, Arterial Blood Oxygen Saturation 96, Arterial Blood Base Excess 20.5H, Neil Test YES-POS, Blood Gas Ventilator Setting NO, Blood Gas Inspired Oxygen 40% BIPAP 01/04/19 04:45: Radiology NAME: KEMAR JERONIMO [facility] REC#: [id number] PT STATUS: ADM IN : 1955 PHYSICIAN: GREG TONY DO ADMIT DATE: 01/04/19/ICU Draft Date of Exam:01/04/19 CHEST 1 VIEW, AP/PA ONLY INDICATION: Shortness of breath. COMPARISON: 11/02/2018. FINDINGS: There is cardiomegaly and vascular congestion worsened from prior. There are small pleural effusions new. IMPRESSION: Worsened failure pattern when compared to previous. Dictated on workstation # [id number] Dict: 01/04/19 0720 Trans: 01/04/19 0748 [id number] Interpreted by: LEANA YU Electronically signed by: ECG Impression ECG Comment SR with RBBB A/P-Cardiology Assessment/Admission Diagnosis Ac resp failure with h/o ARDS - management per pulmonary services Sinus node dysfunction: presentation with PAF in 2015 that was treated with elec cardioversion HTN - uncontrolled Mild to moderate CAD on coronary angiography in 2010 Obesity with obesity-hypoventilation, TERE, and pulm hypertension. PASP was 60- 65 mmHg on echo of 2015 Echo of Oct 2017 showed LVEF 55-60% Marijuana use (test positive this admission) Chronic narcotic use d/t chronic back and joint pain Discussion and Recomendations Acute on chronic resp failure - management per pulmonary services Chest discomfort with no evidence of ACS Uncontrolled HTN - resume home medications of Norvasc and Lisinopril Echocardiogram to eval structure and LVEF Continue Lovenox for DVT prophylaxis Monitor lab closely Further recs will be based on his hospital course We would like to thank medical services for this consult Clinical Quality Measures DVT/VTE Risk/Contraindication: Risk Factor Score Per Nursin RFS Level Per Nursing on Admit: 4+=Very High PIEDAD GOEL January 04, 2019 08:31
[2019-01-04] MEDS: RT-ALBUTEROL/IPRATROPIUM 3 ML (DUONEB) VIAL INH SCH ×4 (10:20→22:44)
[2019-01-04 10:41] LABS: ABG BASE EXCESS 21.2 MMOL/L (-2.5-2.5); ABG OXYGEN SATURATION 92 % (94-100); ABG PCO2 70 MMHG (35-45); ABG PH 7.44 (7.37-7.43); ABG PO2 59 MMHG (79-93); ABG TCO2 49.1 MMOL/L (21.0-31.0)
[2019-01-04 10:45] LABS: ALLENS TEST YES-POS; INSPIRED O2 30; PATIENT TEMP 98.8; VENTILATOR NO
[2019-01-04] MEDS: inSUlin ASPART (NovoLOG) 1 UNIT/0.01 ML (CHARGE PER UNIT) SC SCH ×3 (11:00→21:12)
[2019-01-04] MEDS ORDERED: AMIO200T4 PO (12:16)
[2019-01-04] MEDS ORDERED: ROFL500T PO (12:16)
[2019-01-04] MEDS ORDERED: APIX5TAB PO (12:16)
[2019-01-04] MEDS ORDERED: BUSP10TA95 PO (12:16)
[2019-01-04] MEDS ORDERED: METO-387 PO (12:16)
[2019-01-04] MEDS ORDERED: PANT40TA3 PO (12:16)
[2019-01-04] MEDS ORDERED: NAPR250T6 PO (12:16)
[2019-01-04] MEDS ORDERED: SILD20TA14 PO (12:16)
[2019-01-04] MEDS ORDERED: ASPI-983 PO (13:26)
--- NOTE | 2019-01-04 13:40 | NUR ---
PATIENT AND DAUGHTER DO NOT HAVE A LIST OF MEDICATIONS. I UPDATED THE MED REC WITH WHAT HAS BEEN FILLED RECENTLY AT [facility]. I CALLED DR. TEE'S OFFICE BUT THEY DID NOT HAVE A MED LIST EITHER, THEY FAXED OVER A COPY OF WHAT [facility] HAD HOWEVER THERE ARE SEVERAL MEDS THAT HAVE BEEN FILLED AT [facility] RECENTLY THAT ARE NOT ON THE LIST. I REMOVED TRAZODONE AND CELEBREX FROM THE MED REC SINCE THEY HAVE NOT BEEN FILLED SINCE September FOR A 30 DAY SUPPLY. I LEFT THE OTC MEDS THAT WERE REPORTED AT HIS PREVIOUS VISIT. LASIX IS PAST DUE FOR REFILL HAVING BEEN FILLED FOR 90 DAYS BID ON September, IT IS UNCLEAR IF HE IS STILL TAKING IT BID OR DAILY, I LEFT IT ON MED REC IT WAS PRESCRIBED AT [facility].
--- NOTE | 2019-01-04 13:48 | NUR ---
HOME MEDICATIONS REVIEWED WITH DR TEE VIA TELEPHONE, NEW ORDERS RECEIVED. SEE ORDER HX.
--- NOTE | 2019-01-04 14:16 | NUR ---
NEW ORDERS RECEIVED TO D/C IVF TO 50ML/HR VIA TELEPHONE FROM DR. STEPHENSON.
--- NOTE | 2019-01-04 14:27 | Consultation-Cardiology ---
HPI-Cardiology Cardiology Consultation: Date of Consultation 01/04/19 Time Seen by a Provider: 09:20 Date of Admission Attending Physician Ricky Cleveland DO Admitting Physician Ricky Cleveland DO Consulting Physician PATSY SERVIN MD, MA, FACP, FACC, FSCAI, CCDS Physician requesting consult: Dr Cleveland HPI: Chief Complaint: Acute resp failure Mr. Lopez is a 63 year old male admitted to ICU 10 from the ED. He reports over the course of the last week he has been having progressive SOB with frequent productive cough. He reports a sensation of "burning" in his chest early this morning which has resolved. He is currently on Bi-pap. He feels his breathing has improved. He denies any LE swelling. He denies any palpitations , syncope or near syncope. He denies any n/v/d. He denies any fever or chills. He states he has home health services. Review of Systems-Cardiology Review of Systems Constitutional: No chills, No fever Eyes: No vision change Ears/Nose/Throat: No epistaxis, No recent hearing loss Respiratory: As described under HPI Cardiovascular: As described under HPI Gastrointestinal: No constipation, No diarrhea, No nausea, No vomiting Genitourinary: No dysuria, No hematuria Musculoskeletal: joint pain Skin: No rash, No ulcerations Psychiatric/Neurological: No seizure, No focal weakness, No syncope Hematologic: No bleeding abnormalities JJX-Wrlksk-Izilil Hx Patient Social History Marrital Status: Employed/Student: unemployed, retired Alcohol Use: Past History (HISTORY OF ABUSE/HEAVY USE--CLAIMS NONE FOR 3 YEARS , PER PT ON 01/04/19) Recreational Drug Use: Yes (THC--CLAIMS NONE FOR 5 YEARS, BUT TESTED + FOR THC 01/2018 AND 01/04/19) Drug of Choice: THC Smoking Status: Former Smoker (> 2 PPD) Type Used: Cigarettes 2nd Hand Smoke Exposure: No Recent Foreign Travel: No Recent Infectious Disease Expo: No Hospitalization with Isolation: Denies Immunizations Up To Date Tetanus Booster (TDap): Unknown Date of Pneumonia Vaccine: Sep 04, 2012 Date of Influenza Vaccine: Oct 16, 2017 Past Medical History PMH As described under Assessment. Family Medical History Family Medical History: He does not report a family history of early coraonary arery disease or sudden cardiac . He does not report a family history of stroke. Family History: Arthritis 19 MOTHER Cardiovascular disease 19 MOTHER FH: lung cancer 19 FATHER Hypertension 19 MOTHER No Family History of: AIDS Abdominal aortic aneurysm York's disease Alcoholism Alzheimer's disease Aphasia Asthma Cancer of mouth Cataracts Colon cancer Completed stroke Congenital disease Congenital heart disease Coronary thrombosis Cystic fibrosis Deafness or hearing loss Dementia Diabetes mellitus Drug abuse Dysphasia Fibrocystic disease of breast Gastroenteritis Glaucoma Headache disorder Hypercholesterolemia Infertility Kidney disease Myocardial infarction Neoplasm Not obtainable due to adoption Osteoporosis Parkinson's disease Prostate cancer Psychosocial problem Respiratory disorder Seizure disorder Severe allergy Thyroid disease Tuberculosis Visual disorder Allergies and Home Medications Allergies Coded Allergies: cephalexin (Verified Allergy, Unknown, 04/10/16) Home Medications Albuterol Sulfate 2.5 Mg/3 Ml Vial.neb, 2.5 MG IH 5XD, (Reported) Amiodarone HCl 200 Mg Tablet, 200 MG PO DAILY, (Reported) Amlodipine Besylate 5 Mg Tablet, 5 MG PO DAILY, (Reported) Apixaban 5 Mg Tablet, 5 MG PO BID, (Reported) Aspirin 81 Mg Tablet.dr, 81 MG PO DAILY, (Reported) Atorvastatin Calcium 10 Mg Tablet, 10 MG PO DAILY, (Reported) Budesonide/Formoterol Fumarate 10.2 Gm Hfa.aer.ad, 2 PUFF INH BID, (Reported) Buspirone HCl 10 Mg Tablet, 10 MG PO BID, (Reported) Cholecalciferol (Vitamin D3) 1,000 Unit Capsule, 1,000 UNIT PO DAILY, (Reported) Cyanocobalamin/Cobamamide 1 Each Tab.subl, 5,000 MCG SL DAILY, (Reported) Duloxetine HCl 60 Mg Capsule.dr, 60 MG PO BID, (Reported) Furosemide 40 Mg Tablet, 40 MG PO BID, (Reported) LAST FILLED #180 09-11-18 Hydrocodone/Acetaminophen 1 Each Tablet, 1 TAB PO TID PRN for PAIN-MODERATE, ( Reported) Lisinopril 10 Mg Tablet, 10 MG PO DAILY, (Reported) Metoprolol Succinate 25 Mg Tab.er.24h, 12.5 MG PO DAILY, (Reported) TAKES 1/2 (25MG) TABLET Multivitamin/Iron/Folic Acid 1 Each Tablet, 1 TAB PO DAILY, (Reported) Naproxen 250 Mg Tablet, 250 MG PO BID PRN for PAIN-MILD, (Reported) Pantoprazole Sodium 40 Mg Tablet.dr, 40 MG PO DAILY, (Reported) Pregabalin 150 Mg Capsule, 150 MG PO BID, (Reported) Ranitidine HCl 150 Mg Tablet, 150 MG PO BID, (Reported) Roflumilast 500 Mcg Tablet, 500 MCG PO DAILY, (Reported) Sildenafil Citrate 20 Mg Tablet, 20 MG PO TID, (Reported) Vitamin A Palmitate 10,000 Unit Capsule, 10,000 UNIT PO DAILY, (Reported) Patient Home Medication List Home Medication List Reviewed: Yes Physical Exam-Cardiology Physical Exam Vital Signs/I&O 01/04/19 01/04/19 01/04/19 01/04/19 04:40 04:45 04:45 04:49 Temp 97.2 98.3 Pulse 61 64 Resp 16 B/P (MAP) 166/82 (110) Pulse Ox 97 95 93 O2 Delivery NIV Bilevel NIV Bilevel FiO2 40 40 01/04/19 01/04/19 01/04/19 01/04/19 04:49 04:50 04:55 05:15 Pulse 78 69 90 68 Resp 27 19 11 B/P (MAP) 151/79 (103) 156/74 (101) Pulse Ox 93 97 96 O2 Delivery NIV Bilevel NIV Bilevel O2 Flow Rate 40.00 40.00 40.00 01/04/19 01/04/19 01/04/19 01/04/19 05:30 05:45 06:00 06:42 Pulse 67 65 65 68 Resp 11 23 16 22 B/P (MAP) 159/82 (107) 165/81 (109) 164/90 (114) Pulse Ox 97 97 98 93 O2 Delivery NIV Bilevel NIV Bilevel NIV Bilevel O2 Flow Rate 40.00 40.00 40.00 40.00 01/04/19 01/04/19 01/04/19 01/04/19 07:00 07:29 07:53 08:00 Temp 98.3 Pulse 74 69 75 Resp 23 16 B/P (MAP) 125/95 (105) 215/129 (157) Pulse Ox 91 94 O2 Delivery NIV Bilevel NIV Bilevel O2 Flow Rate 40.00 40.00 01/04/19 01/04/19 01/04/19 01/04/19 08:00 09:00 09:15 09:55 Pulse 77 Resp 19 B/P (MAP) 157/79 (105) Pulse Ox 94 92 O2 Delivery NIV Bilevel NIV Bilevel Nasal Cannula O2 Flow Rate 40.00 40.00 2.00 01/04/19 01/04/19 01/04/19 01/04/19 10:00 10:20 11:00 12:00 Pulse 80 79 79 88 Resp 20 25 20 10 B/P (MAP) 162/84 (110) 144/75 (98) 132/78 (96) Pulse Ox 93 92 92 92 O2 Delivery Nasal Cannula Nasal Cannula Nasal Cannula O2 Flow Rate 2.00 30.00 2.00 2.00 01/04/19 01/04/19 01/04/19 01/04/19 12:42 13:00 13:00 14:00 Pulse 77 77 80 Resp 21 25 B/P (MAP) 150/78 (102) 153/87 (109) Pulse Ox 94 95 95 O2 Delivery NIV Bilevel Nasal Cannula Nasal Cannula O2 Flow Rate 40.00 2.00 2.00 01/04/19 14:19 Pulse 84 Resp 30 Pulse Ox 95 O2 Flow Rate 30.00 Capillary Refill : Less Than 3 Seconds Constitutional: AAO x 3, well-developed, well-nourished HEENT: PERRL, hearing is well preserved Neck: No carotid bruit; carotid pulses are 2 + bilaterally Respiratory: rhonchi (scattered; diminshed lower lobes bilat) Cardiovascular: regular rate-rhythm; No JVD; S1 and S2 Gastrointestinal: No tender; soft, round, audible bowel sounds Extremities: no lower extremity edema bilateral Neurologic/Psychiatric: grossly intact, power is 5/5 both on sides Skin: No rash, No ulcerations Data Review Labs Laboratory Tests 01/04/19 02:15: White Blood Count 8.0, Red Blood Count 3.85L, Hemoglobin 10.7L, Hematocrit 36L, Mean Corpuscular Volume 94, Mean Corpuscular Hemoglobin 28, Mean Corpuscular Hemoglobin Concent 30L, Red Cell Distribution Width 16.0H, Platelet Count 168, Mean Platelet Volume 9.4, Neutrophils (%) (Auto) 84H, Lymphocytes (%) (Auto) 8L , Monocytes (%) (Auto) 8, Eosinophils (%) (Auto) 0, Basophils (%) (Auto) 0, Neutrophils # (Auto) 6.7, Lymphocytes # (Auto) 0.6L, Monocytes # (Auto) 0.7, Eosinophils # (Auto) 0.0, Basophils # (Auto) 0.0, Neutrophils % (Manual) 81, Lymphocytes % (Manual) 11, Monocytes % (Manual) 5, Band Neutrophils 3, Anisocytosis SLIGHT, Prothrombin Time 13.6, INR Comment 1.0, Activated Partial Thromboplast Time 41H, Sodium Level 143, Potassium Level 4.4, Chloride Level 92L , Carbon Dioxide Level 39H, Anion Gap 12, Blood Urea Nitrogen 13, Creatinine 0.93, Estimat Glomerular Filtration Rate > 60, BUN/Creatinine Ratio 14, Glucose Level 119H, Calcium Level 9.6, Corrected Calcium 9.9, Magnesium Level 2.1, Total Bilirubin 0.3, Aspartate Amino Transf (AST/SGOT) 21, Alanine Aminotransferase (ALT/SGPT) 16, Alkaline Phosphatase 116, Troponin I < 0.028, B- Type Natriuretic Peptide 82.1, Total Protein 7.7, Albumin 3.6, TSH [place] Testing 0.88, Serum Alcohol < 10 01/04/19 02:20: Blood Gas Puncture Site LT RADIAL, Blood Gas Patient Temperature 97.2, Arterial Blood pH 7.26*L, Arterial Blood Partial Pressure CO2 108*H, Arterial Blood Partial Pressure O2 96H, Arterial Blood HCO3 47*H, Arterial Blood Total CO2 50.5H, Arterial Blood Oxygen Saturation 98, Arterial Blood Base Excess 19.1H, Neil Test YES-POS, Blood Gas Ventilator Setting NO, Blood Gas Inspired Oxygen 6 01/04/19 03:20: Lactic Acid Level 0.64 01/04/19 04:11: Urine Color YELLOW, Urine Clarity CLEAR, Urine pH 5, Urine Specific [place] 1.015L, Urine Protein 4+, Urine Glucose (UA) NEGATIVE, Urine Ketones NEGATIVE, Urine Nitrite NEGATIVE, Urine Bilirubin NEGATIVE, Urine Urobilinogen NORMAL, Urine Leukocyte Esterase NEGATIVE, Urine RBC (Auto) 4+H, Urine RBC 50-100H, Urine WBC NONE, Urine Squamous Epithelial Cells 0-2, Urine Crystals NONE, Urine Bacteria TRACE, Urine Casts PRESENT, Urine Hyaline Casts 10-25H, Urine Mucus NEGATIVE, Urine Culture Indicated NO, Urine Opiates Screen POSITIVEH, Urine Oxycodone Screen NEGATIVE, Urine Methadone Screen NEGATIVE, Urine Propoxyphene Screen NEGATIVE, Urine Barbiturates Screen NEGATIVE, Ur Tricyclic Antidepressants Screen NEGATIVE, Urine Phencyclidine Screen NEGATIVE, Urine Amphetamines Screen NEGATIVE, Urine Methamphetamines Screen NEGATIVE, Urine Benzodiazepines Screen NEGATIVE, Urine Cocaine Screen NEGATIVE, Urine Cannabinoids Screen POSITIVEH 01/04/19 04:13: Blood Gas Puncture Site LT RAD, Blood Gas Patient Temperature 96.3, Arterial Blood pH 7.34*L, Arterial Blood Partial Pressure CO2 89*H, Arterial Blood Partial Pressure O2 73L, Arterial Blood HCO3 48*H, Arterial Blood Total CO2 50.4H, Arterial Blood Oxygen Saturation 96, Arterial Blood Base Excess 20.5H, Neil Test YES-POS, Blood Gas Ventilator Setting NO, Blood Gas Inspired Oxygen 40% BIPAP 01/04/19 04:45: 01/04/19 10:30: Blood Gas Puncture Site RT RAD, Blood Gas Patient Temperature 98.8, Arterial Blood pH 7.44H, Arterial Blood Partial Pressure CO2 70H, Arterial Blood Partial Pressure O2 59L, Arterial Blood HCO3 47*H, Arterial Blood Total CO2 49.1H, Arterial Blood Oxygen Saturation 92L, Arterial Blood Base Excess 21.2H, Neil Test YES-POS, Blood Gas Ventilator Setting NO, Blood Gas Inspired Oxygen 30 01/04/19 10:59: Glucometer 157H A/P-Cardiology Assessment/Admission Diagnosis Ac resp failure with h/o ARDS - management per pulmonary services Sinus node dysfunction: presentation with PAF in 2015 that was treated with elec cardioversion HTN - uncontrolled Echo of 01/04/19 showed LVEF 65-70%, mod conc LVH, grade 1 gastelum dysfunction of LV , mod to sev enlargement of LA, PASP 45-50 mmHg Mild to moderate CAD on coronary angiography in 2010 Obesity with obesity-hypoventilation, TERE, and pulm hypertension. PASP was 60- 65 mmHg on echo of 2015; 45-50 mmHg on echo of 01/04/19 Marijuana use (test positive this admission) Chronic narcotic use d/t chronic back and joint pain Discussion and Recomendations Acute on chronic resp failure - management per pulmonary services Chest discomfort with no evidence of ACS Uncontrolled HTN - resume home medications of Norvasc and Lisinopril Continue Lovenox for DVT prophylaxis Monitor lab closely Further recs will be based on his hospital course Dr Gomez covering our service over the weekend Clinical Quality Measures DVT/VTE Risk/Contraindication: Risk Factor Score Per Nursin RFS Level Per Nursing on Admit: 4+=Very High Physician Assessment Physician Assessment PATSY SERVIN MD FACP FACC CCDS January 04, 2019 14:27
[2019-01-04] MEDS: FUROSEMIDE 40 MG (LASIX) TAB PO SCH (16:43)
[2019-01-04] MEDS: HYDROcodone/APAP 5 MG/325 MG (LORTAB) TAB PO PRN ×2 (16:43→20:15)
[2019-01-04] MEDS: FLUTICASONE NASAL SPRAY (FLONASE) 16 GM BTL NS SCH (20:14)
[2019-01-04] MEDS: PREGABALIN 75 MG (LYRICA) CAP PO SCH (20:14)
[2019-01-04] MEDS: busPIRone 10 MG (BUSPAR) TAB PO SCH (20:14)
[2019-01-04] MEDS: DULoxetine 30 MG (CYMBALTA) CAP PO SCH (20:15)
[2019-01-04] MEDS: APIXABAN 5 MG (ELIQUIS) TABLET PO SCH (20:15)
[2019-01-04] MEDS: FAMOTIDINE 20 MG (PEPCID) TABLET PO SCH (20:15)
[2019-01-04] MEDS ORDERED: meTOprolol 5 MG/5 ML (LOPRESSOR) VIAL ONE (20:45)
[2019-01-04] MEDS ORDERED: amLODIPine 5 MG (NORVASC) TAB ONE (20:47)
[2019-01-04] MEDS ORDERED: lisINopril 10 MG (PRINIVIL) TABLET ONE (20:47)
[2019-01-04] MEDS ORDERED: NON-FORMULARY MEDICATION 1 EA EA (Sildenafil Citrate (Sildenafil) 20 MG) PO SCH (21:00)
[2019-01-04] MEDS ORDERED: meTOprolol 5 MG/5 ML (LOPRESSOR) VIAL IV ONE (21:30)
[2019-01-04] MEDS ORDERED: lisINopril 10 MG (PRINIVIL) TABLET PO ONE (21:30)
[2019-01-04] MEDS ORDERED: amLODIPine 5 MG (NORVASC) TAB PO ONE (21:30)
[2019-01-05] VITALS (19 sets, daily range): BP systolic 135–158; BP diastolic 65–96
[2019-01-05] MEDS: NITROGLYCERIN 2% OINT 1 GM UNIT DOSE PACKET TOP SCH ×5 (00:52→23:15)
[2019-01-05] MEDS: RT-ALBUTEROL/IPRATROPIUM 3 ML (DUONEB) VIAL INH SCH ×6 (02:44→22:47)
[2019-01-05 03:32] LABS: BASOPHILS % (AUTO) 0 % (0-10); EOSINOPHILS % (AUTO) 0 % (0-10); HEMATOCRIT 33 % (40-54); HEMOGLOBIN 10.4 G/DL (13.3-17.7); LYMPHOCYTES # (AUTO) 0.4 X 10^3 (1.0-4.0); LYMPHOCYTES % (AUTO) 8 % (12-44); MEAN CORPUSCULAR HEMOGLOBIN 28 PG (25-34); MEAN CORPUSCULAR HGB CONC 31 G/DL (32-36); MEAN CORPUSCULAR VOLUME 89 FL (80-99); MEAN PLATELET VOLUME 9.2 FL (7.4-10.4); MONOCYTES # (AUTO) 0.3 X 10^3 (0.0-1.0); MONOCYTES % (AUTO) 5 % (0-12); NEUTROPHILS # (AUTO) 4.6 X 10^3 (1.8-7.8); NEUTROPHILS % (AUTO) 87 % (42-75); PLATELET COUNT 178 10^3/uL (130-400); RED CELL DISTRIBUTION WIDTH 16.4 % (10.0-14.5); WHITE BLOOD COUNT 5.3 10^3/uL (4.3-11.0)
[2019-01-05 03:52] LABS: ALANINE AMINOTRANSFERASE 15 U/L (0-55); ALBUMIN 3.2 GM/DL (3.2-4.5); ALKALINE PHOSPHATASE 98 U/L (40-136); BILIRUBIN,TOTAL 0.3 MG/DL (0.1-1.0); BUN/CREATININE RATIO 25; CALCIUM 9.7 MG/DL (8.5-10.1); CARBON DIOXIDE 40 MMOL/L (21-32); CHLORIDE 93 MMOL/L (98-107); CREATININE SERUM 0.97 MG/DL (0.60-1.30); GFR ESTIMATED > 60; GLUCOSE 145 MG/DL (70-105); MAGNESIUM 1.8 MG/DL (1.8-2.4); PHOSPHORUS 2.7 MG/DL (2.3-4.7); POTASSIUM 3.8 MMOL/L (3.6-5.0); SODIUM 142 MMOL/L (135-145); TOTAL PROTEIN 6.8 GM/DL (6.4-8.2)
[2019-01-05] MEDS: MAGNESIUM 1 GM/100 ML IVPB 100 ML IV SCH (03:54)
[2019-01-05] MEDS: POTASSIUM CL 10MEQ/50ML IVPB 50 ML IV SCH (03:54)
[2019-01-05] MEDS: inSUlin ASPART (NovoLOG) 1 UNIT/0.01 ML (CHARGE PER UNIT) SC SCH ×4 (03:55→21:01)
[2019-01-05] MEDS: KCL 20 MEQ TAB (K-DUR) PO SCH (03:55)
[2019-01-05 05:01] LABS: ABG BASE EXCESS 18.4 MMOL/L (-2.5-2.5); ABG OXYGEN SATURATION 98 % (94-100); ABG PCO2 58 MMHG (35-45); ABG PH 7.49 (7.37-7.43); ABG PO2 88 MMHG (79-93); ABG TCO2 45.5 MMOL/L (21.0-31.0)
[2019-01-05 05:03] LABS: ALLENS TEST YES-POS; INSPIRED O2 45%; PATIENT TEMP 97.2; VENTILATOR NO
[2019-01-05] MEDS: CYANOCOBALAMIN 1,000 MCG (VITAMIN B-12) TABLET PO SCH (05:24)
[2019-01-05] MEDS: FUROSEMIDE 40 MG (LASIX) TAB PO SCH ×2 (05:24→17:16)
[2019-01-05] MEDS: VITAMIN D3 1,000 UNITS (CHOLECALCIFEROL) TABLET PO SCH (05:25)
[2019-01-05] MEDS: MULTIVIT W/MINERALS TAB (THERAGRAN M) PO SCH (05:25)
[2019-01-05] MEDS: HYDROcodone/APAP 5 MG/325 MG (LORTAB) TAB PO PRN ×3 (05:26→22:56)
[2019-01-05] MEDS ORDERED: LEVOFLOXACIN 750 MG/150 ML IV 150 ML IV SCH (07:00)
[2019-01-05] MEDS: APIXABAN 5 MG (ELIQUIS) TABLET PO SCH ×2 (08:06→19:56)
[2019-01-05] MEDS: FLUTICASONE NASAL SPRAY (FLONASE) 16 GM BTL NS SCH ×2 (08:06→19:56)
[2019-01-05] MEDS: PANTOPRAZOLE 40 MG (PROTONIX) TAB PO SCH (08:06)
[2019-01-05] MEDS: DULoxetine 30 MG (CYMBALTA) CAP PO SCH ×2 (08:06→19:57)
[2019-01-05] MEDS: PREGABALIN 75 MG (LYRICA) CAP PO SCH ×2 (08:07→19:57)
[2019-01-05] MEDS: AMIODARONE 200 MG (CORDARONE) TAB PO SCH (08:07)
[2019-01-05] MEDS: ASPIRIN E.C. 81 MG (ECOTRIN) TAB PO SCH (08:07)
[2019-01-05] MEDS: ATORVASTATIN 10 MG (LIPITOR) TABLET PO SCH (08:07)
[2019-01-05] MEDS: ROFLUMILAST 500 MCG TAB (DALIRESP) PO SCH (08:07)
[2019-01-05] MEDS: busPIRone 10 MG (BUSPAR) TAB PO SCH ×2 (08:08→19:56)
[2019-01-05] MEDS: FAMOTIDINE 20 MG (PEPCID) TABLET PO SCH ×2 (08:08→19:56)
[2019-01-05] MEDS: lisINopril 10 MG (PRINIVIL) TABLET PO SCH (08:08)
[2019-01-05] MEDS: amLODIPine 5 MG (NORVASC) TAB PO SCH (08:08)
--- NOTE | 2019-01-05 08:17 | Diagnostic Imaging Report ---
Indication: Dyspnea. Time of exam: 4:42 AM Correlation is made with prior study one day earlier. Heart is enlarged. There is some central congestion. No overt failure is seen. No effusion or pneumothorax Impression: Cardiomegaly and central congestion. Dictated by: Dictated on workstation # [id number]
[2019-01-05] MEDS ORDERED: VITAMIN A PALMITATE 10000 UNIT PO SCH (09:00)
--- NOTE | 2019-01-05 09:23 | Cardiology Progress Note ---
Subjective Date Seen by Provider: January 05, 2019 Time Seen by Provider: 09:23 Subjective/Events-last exam patient is sitting in a chair, feeling better. Denied any chest pain. No palpitation Review of Systems General: No Chills, No Night Sweats; Fatigue; No Malaise, No Appetite, No Other HEENT: No Head Aches, No Visual Changes, No Eye Pain, No Ear Pain, No Dysphasia , No Sinus Congestion, No Post Nasal Drip, No Sore Throat, No Other Pulmonary: Dyspnea; No Cough, No Pleuritic Chest Pain, No Other Cardiovascular: No: Chest Pain, Palpitations, Orthopnea, Paroxysmal Noc. Dyspnea, Edema, Lt Headedness, Other Focused Exam Lactate Level 01/04/19 03:20: Lactic Acid Level 0.64 Objective-Cardiology Exam Last Set of Vital Signs Vital Signs 01/04/19 01/05/19 04:49 09:00 Pulse 80 Resp 22 B/P (MAP) 147/79 (101) Pulse Ox 98 O2 Delivery High Flow N/C O2 Flow Rate 6.00 FiO2 40 Capillary Refill : Less Than 3 Seconds I&O Intake and Output 01/05/19 00:00 Intake Total 390 ml Output Total 1975 ml Balance -1585 ml Intake Oral 240 ml IV Total 150 ml Output Urine Total 1975 ml Daily Weight Change No General: Alert, Oriented X3, Cooperative HEENT: Atraumatic, PERRLA Neck: Supple, No JVD, No Thyromegaly Lungs: Normal Air Movement, Other (bilateral wheezing, rhonchi) Heart: Regular Rate, Normal S1, Normal S2, No Murmurs Abdomen: Normal Bowel Sounds, Soft, No Tenderness, No Hepatosplenomegaly, No Masses Extremities: No Clubbing, No Cyanosis, Normal Pulses, No Tenderness/Swelling, Other (mild edema) Skin: No Rashes, No Breakdown, No Significant Lesion Neuro: Normal Gait, Normal Speech, Strength at 5/5 X4 Ext, Normal Tone, Sensation Intact Psych/Mental Status: Mental Status NL, Mood NL Results Lab Laboratory Tests 01/05/19 02:58 A/P-Cardiology Admission Diagnosis Pneumonia ARDS Paroxysmal atrial fibrillation Sinus node dysfunction Assessment/Plan Status post acute respiratory failure with noncardiogenic pulmonary edema. Patient had normal echocardiogram, no signs of heart failure. Improving. Next Pneumonia, still having active wheezing and rhonchi, managed by primary care team. History of paroxysmal atrial fibrillation and sinus node dysfunction, had electrical cardioversion in 2016. Maintained in sinus rhythm with occasional PVCs. Continue to monitor Hypertension, restart home medication monitor History of [id number] coronary artery disease per cardiac catheterization in 2010, no signs of acute coronary syndrome at this time. Continue to monitor Obesity hypoventilation and pulmonary hypertension with sleep apnea, pulmonary artery pressure of 60-65 mmHg. Chronic narcotic use. History of marijuana use. Morbid obesity, has been losing weight and encouraged to continue with weight loss Clinical Quality Measures DVT/VTE Risk/Contraindication: Risk Factor Score Per Nursin RFS Level Per Nursing on Admit: 4+=Very High VANCE HAMMOND MD January 05, 2019 09:23
--- NOTE | 2019-01-05 12:32 | Progress Note-Hospitalist ---
Subjective HPI/CC On Admission Date Seen by Provider: January 05, 2019 Time Seen by Provider: 12:15 Subjective/Events-last exam Patient doing much better Breathing better Cough is productive now and that is helping his breathing Blood pressure stable Reviewed meds Reviewed labs Restarted most of his home medication Reports chronic back pain Ready to be transferred down to fourth floor to be able to take a shower and walk around Eating and drinking well Appreciate pulmonology and cardiology recommendations Lost his IV and will not restart it Review of Systems General: Fatigue Pulmonary: Dyspnea, Cough Focused Exam Lactate Level 01/04/19 03:20: Lactic Acid Level 0.64 Objective Exam Vital Signs Vital Signs Date Time Temp Pulse Resp B/P (MAP) Pulse Ox O2 Delivery O2 Flow Rate FiO2 01/05/19 12:45 78 01/05/19 12:00 13 147/88 (107) 89 High Flow N/C 6.00 01/05/19 08:00 98.9 01/04/19 04:49 40 Capillary Refill : Less Than 3 Seconds General Appearance: No Apparent Distress, WD/WN, Chronically ill, Obese HEENT: Normal ENT Inspection Neck: Full Range of Motion, Normal Inspection Respiratory: No Accessory Muscle Use, No Respiratory Distress, Crackles, Decreased Breath Sounds Cardiovascular: Regular Rate, Rhythm, No Murmur Gastrointestinal: Non Tender, Soft Extremity: Pedal Edema Neurologic/Psychiatric: Alert, Oriented x3, No Motor/Sensory Deficits, Normal Mood/Affect Results/Procedures Lab Laboratory Tests 01/05/19 02:58 Patient resulted labs reviewed. Assessment/Plan Assessment and Plan Assess & Plan/Chief Complaint Assessment: Acute and chronic respiratory failure Bilateral pneumonia Hypertension Morbid obesity CHF history Diabetes mellitus THC use Plan: Home meds Tx to 4th floor Appreciate Pulmo and Cards Monitor O2 and CO2 Diagnosis/Problems Diagnosis/Problems (1) Acute on chronic respiratory failure Status: Acute Qualifiers: Respiratory failure complication: unspecified whether with hypoxia or hypercapnia Qualified Codes: J96.20 - Acute and chronic respiratory failure, unspecified whether with hypoxia or hypercapnia (2) Chronic narcotic use Status: Chronic (3) Bilateral pneumonia Status: Acute Qualifiers: Pneumonia type: due to unspecified organism Lung location: lower lobe of lung Qualified Codes: J18.1 - Lobar pneumonia, unspecified organism (4) Hx of congestive heart failure Status: Chronic (5) Hypertension Status: Chronic Qualifiers: Hypertension type: essential hypertension Qualified Codes: I10 - Essential (primary) hypertension (6) Morbid obesity Status: Chronic (7) COPD exacerbation Status: Acute (8) Frequent falls Status: Chronic (9) Chronic renal insufficiency Status: Chronic Qualifiers: Chronic kidney disease stage: stage 2 (mild) Qualified Codes: N18.2 - Chronic kidney disease, stage 2 (mild) (10) Hypoxia Status: Acute (11) Volume overload Status: Acute Qualifiers: Hypervolemia type: unspecified Qualified Codes: E87.70 - Fluid overload, unspecified Clinical Quality Measures DVT/VTE Risk/Contraindication: Risk Factor Score Per Nursin RFS Level Per Nursing on Admit: 4+=Very High JIGNESH WASHINGTON DO January 05, 2019 12:31
--- NOTE | 2019-01-05 13:30 | NUR ---
PT TO ROOM 428 VIA WHEEL CHAIR AND INTRODUCED TO ROOM AND CALL SYSTEM. BEDSIDE REPORT GIVEN TO LAKEISHA ARAIZA.
--- NOTE | 2019-01-05 13:35 | NUR ---
Pt to room 428. Report received by Jazmyne. Agree with previous assessment.
--- NOTE | 2019-01-05 19:17 | NUR ---
Ok to leave IV out per Dr. Marquez.
[2019-01-06] VITALS (7 sets, daily range): BP systolic 114–169; BP diastolic 55–84
[2019-01-06] MEDS: RT-ALBUTEROL/IPRATROPIUM 3 ML (DUONEB) VIAL INH SCH ×6 (01:21→22:25)
[2019-01-06 05:27] LABS: BASOPHILS % (AUTO) 0 % (0-10); EOSINOPHILS % (AUTO) 0 % (0-10); HEMATOCRIT 35 % (40-54); HEMOGLOBIN 10.6 G/DL (13.3-17.7); LYMPHOCYTES # (AUTO) 1.6 X 10^3 (1.0-4.0); LYMPHOCYTES % (AUTO) 19 % (12-44); MEAN CORPUSCULAR HEMOGLOBIN 27 PG (25-34); MEAN CORPUSCULAR HGB CONC 30 G/DL (32-36); MEAN CORPUSCULAR VOLUME 90 FL (80-99); MEAN PLATELET VOLUME 8.7 FL (7.4-10.4); MONOCYTES # (AUTO) 0.8 X 10^3 (0.0-1.0); MONOCYTES % (AUTO) 10 % (0-12); NEUTROPHILS # (AUTO) 5.9 X 10^3 (1.8-7.8); NEUTROPHILS % (AUTO) 71 % (42-75); PLATELET COUNT 192 10^3/uL (130-400); RED CELL DISTRIBUTION WIDTH 16.9 % (10.0-14.5); WHITE BLOOD COUNT 8.3 10^3/uL (4.3-11.0)
[2019-01-06] MEDS: MULTIVIT W/MINERALS TAB (THERAGRAN M) PO SCH (05:47)
[2019-01-06] MEDS: FUROSEMIDE 40 MG (LASIX) TAB PO SCH ×2 (05:47→17:26)
[2019-01-06] MEDS: CYANOCOBALAMIN 1,000 MCG (VITAMIN B-12) TABLET PO SCH (05:47)
[2019-01-06] MEDS: VITAMIN D3 1,000 UNITS (CHOLECALCIFEROL) TABLET PO SCH (05:47)
[2019-01-06] MEDS: inSUlin ASPART (NovoLOG) 1 UNIT/0.01 ML (CHARGE PER UNIT) SC SCH ×4 (05:47→21:13)
[2019-01-06] MEDS: NITROGLYCERIN 2% OINT 1 GM UNIT DOSE PACKET TOP SCH ×3 (05:48→17:26)
[2019-01-06 05:49] LABS: ALANINE AMINOTRANSFERASE 21 U/L (0-55); ALKALINE PHOSPHATASE 84 U/L (40-136); BILIRUBIN,TOTAL 0.3 MG/DL (0.1-1.0); BUN/CREATININE RATIO 32; CARBON DIOXIDE 38 MMOL/L (21-32); CHLORIDE 95 MMOL/L (98-107); CREATININE SERUM 1.01 MG/DL (0.60-1.30); GFR ESTIMATED > 60; GLUCOSE 83 MG/DL (70-105); POTASSIUM 3.7 MMOL/L (3.6-5.0); SODIUM 142 MMOL/L (135-145); TOTAL PROTEIN 6.2 GM/DL (6.4-8.2)
[2019-01-06] MEDS: HYDROcodone/APAP 5 MG/325 MG (LORTAB) TAB PO PRN ×3 (05:52→20:36)
[2019-01-06] MEDS: amLODIPine 5 MG (NORVASC) TAB PO SCH (08:07)
[2019-01-06] MEDS: busPIRone 10 MG (BUSPAR) TAB PO SCH ×2 (08:07→20:36)
[2019-01-06] MEDS: FAMOTIDINE 20 MG (PEPCID) TABLET PO SCH ×2 (08:07→20:36)
[2019-01-06] MEDS: ROFLUMILAST 500 MCG TAB (DALIRESP) PO SCH (08:07)
[2019-01-06] MEDS: APIXABAN 5 MG (ELIQUIS) TABLET PO SCH ×2 (08:08→20:36)
[2019-01-06] MEDS: PANTOPRAZOLE 40 MG (PROTONIX) TAB PO SCH (08:08)
[2019-01-06] MEDS: DULoxetine 30 MG (CYMBALTA) CAP PO SCH ×2 (08:08→20:37)
[2019-01-06] MEDS: PREGABALIN 75 MG (LYRICA) CAP PO SCH ×2 (08:08→20:36)
[2019-01-06] MEDS: lisINopril 10 MG (PRINIVIL) TABLET PO SCH (08:09)
[2019-01-06] MEDS: ASPIRIN E.C. 81 MG (ECOTRIN) TAB PO SCH (08:09)
[2019-01-06] MEDS: ATORVASTATIN 10 MG (LIPITOR) TABLET PO SCH (08:09)
[2019-01-06] MEDS: AMIODARONE 200 MG (CORDARONE) TAB PO SCH (08:09)
[2019-01-06] MEDS: FLUTICASONE NASAL SPRAY (FLONASE) 16 GM BTL NS SCH ×2 (08:10→20:36)
--- NOTE | 2019-01-06 08:40 | Cardiology Progress Note ---
Subjective Date Seen by Provider: January 06, 2019 Time Seen by Provider: 08:39 Subjective/Events-last exam Patient is in bed, feeling better, no new complaint Review of Systems General: No Chills, No Night Sweats, No Fatigue, No Malaise, No Appetite, No Other HEENT: No Head Aches, No Visual Changes, No Eye Pain, No Ear Pain, No Dysphasia , No Sinus Congestion, No Post Nasal Drip, No Sore Throat, No Other Pulmonary: Dyspnea; No Cough, No Pleuritic Chest Pain, No Other Cardiovascular: Edema; No: Chest Pain, Palpitations, Orthopnea, Paroxysmal Noc. Dyspnea, Lt Headedness, Other Focused Exam Lactate Level 01/04/19 03:20: Lactic Acid Level 0.64 Objective-Cardiology Exam Last Set of Vital Signs Vital Signs 01/04/19 01/06/19 01/06/19 01/06/19 01/06/19 04:49 04:00 06:40 07:00 08:27 Temp 98.8 Pulse 73 Resp 16 B/P (MAP) 115/58 (77) Pulse Ox 96 O2 Delivery High Flow N/C O2 Flow Rate 5.00 FiO2 40 Capillary Refill : Less Than 3 SecondsLess Than 3 Seconds I&O Intake and Output 01/06/19 00:00 Intake Total 1000 ml Output Total 1675 ml Balance -675 ml Intake Oral 850 ml IV Total 150 ml Output Urine Total 1675 ml # Bowel Movements 1 General: Alert, Oriented X3, Cooperative HEENT: Atraumatic, PERRLA Neck: Supple, No JVD, No Thyromegaly Lungs: Normal Air Movement, Other (bilateral wheezing, rhonchi) Heart: Regular Rate, Normal S1, Normal S2, No Murmurs Abdomen: Normal Bowel Sounds, Soft, No Tenderness, No Hepatosplenomegaly, No Masses Extremities: No Clubbing, No Cyanosis, Normal Pulses, No Tenderness/Swelling, Other (mild edema) Skin: No Rashes, No Breakdown, No Significant Lesion Neuro: Normal Gait, Normal Speech, Strength at 5/5 X4 Ext, Normal Tone, Sensation Intact Psych/Mental Status: Mental Status NL, Mood NL Results Lab Laboratory Tests 01/06/19 05:06 A/P-Cardiology Admission Diagnosis Pneumonia ARDS Paroxysmal atrial fibrillation Sinus node dysfunction Assessment/Plan Status post acute respiratory failure with noncardiogenic pulmonary edema. Patient had normal echocardiogram, no signs of heart failure, feeling better, managed by primary care team Pneumonia, reporting improvement, feeling better. History of paroxysmal atrial fibrillation and sinus node dysfunction, had electrical cardioversion in 2016. Maintained in sinus rhythm with occasional PVCs. Continue to monitor Hypertension, continue to monitor blood pressure History of [id number] coronary artery disease per cardiac catheterization in 2010, no signs of acute coronary syndrome at this time. Continue to monitor Obesity hypoventilation and pulmonary hypertension with sleep apnea, pulmonary artery pressure of 60-65 mmHg. Chronic narcotic use. History of marijuana use. Morbid obesity, has been losing weight and encouraged to continue with weight loss Clinical Quality Measures DVT/VTE Risk/Contraindication: Risk Factor Score Per Nursin RFS Level Per Nursing on Admit: 4+=Very High VANCE HAMMOND MD January 06, 2019 08:40
[2019-01-06] MEDS: LEVOFLOXACIN 750 MG TAB (LEVAQUIN) PO SCH (12:17)
--- NOTE | 2019-01-06 12:47 | Progress Note-Hospitalist ---
Subjective HPI/CC On Admission Date Seen by Provider: January 06, 2019 Time Seen by Provider: 12:00 Subjective/Events-last exam Patient feels much better Checked meds and labs BM+ Eating well Urinating well Breathing much better Dispo tomorrow per PCP Review of Systems General: Fatigue Pulmonary: Dyspnea Focused Exam Lactate Level 01/04/19 03:20: Lactic Acid Level 0.64 Objective Exam Vital Signs Vital Signs Date Time Temp Pulse Resp B/P (MAP) Pulse Ox O2 Delivery O2 Flow Rate FiO2 01/06/19 13:00 67 01/06/19 12:00 97.4 20 138/70 (92) 94 Nasal Cannula 6.00 01/04/19 04:49 40 Capillary Refill : Less Than 3 SecondsLess Than 3 Seconds General Appearance: No Apparent Distress, WD/WN, Chronically ill, Obese HEENT: Normal ENT Inspection Neck: Full Range of Motion, Normal Inspection Respiratory: Chest Non Tender, No Accessory Muscle Use, No Respiratory Distress , Crackles, Decreased Breath Sounds Cardiovascular: Regular Rate, Rhythm, No Murmur Gastrointestinal: Non Tender, Soft Extremity: Pedal Edema Neurologic/Psychiatric: Alert, Oriented x3, No Motor/Sensory Deficits, Normal Mood/Affect Results/Procedures Lab Laboratory Tests 01/06/19 05:06 Patient resulted labs reviewed. Assessment/Plan Assessment and Plan Assess & Plan/Chief Complaint Assessment: Acute and chronic respiratory failure improved now Bilateral pneumonia on abx Levaquin Hypertension Morbid obesity CHF history Diabetes mellitus THC use Plan: Home meds Maintain hospital stay Appreciate Pulmo and Cards Monitor O2 and CO2 Dispo per PCP Diagnosis/Problems Diagnosis/Problems (1) Acute on chronic respiratory failure Status: Acute Qualifiers: Respiratory failure complication: unspecified whether with hypoxia or hypercapnia Qualified Codes: J96.20 - Acute and chronic respiratory failure, unspecified whether with hypoxia or hypercapnia (2) Chronic narcotic use Status: Chronic (3) Bilateral pneumonia Status: Acute Qualifiers: Pneumonia type: due to unspecified organism Lung location: lower lobe of lung Qualified Codes: J18.1 - Lobar pneumonia, unspecified organism (4) Hx of congestive heart failure Status: Chronic (5) Hypertension Status: Chronic Qualifiers: Hypertension type: essential hypertension Qualified Codes: I10 - Essential (primary) hypertension (6) Morbid obesity Status: Chronic (7) COPD exacerbation Status: Acute (8) Frequent falls Status: Chronic (9) Chronic renal insufficiency Status: Chronic Qualifiers: Chronic kidney disease stage: stage 2 (mild) Qualified Codes: N18.2 - Chronic kidney disease, stage 2 (mild) (10) Hypoxia Status: Acute (11) Volume overload Status: Acute Qualifiers: Hypervolemia type: unspecified Qualified Codes: E87.70 - Fluid overload, unspecified Clinical Quality Measures DVT/VTE Risk/Contraindication: Risk Factor Score Per Nursin RFS Level Per Nursing on Admit: 4+=Very High JIGNESH WASHINGTON DO January 06, 2019 12:47
--- NOTE | 2019-01-06 13:45 | NUR ---
LORTAB PO FOR BACKPAIN.
[2019-01-07] VITALS (8 sets, daily range): BP systolic 111–147; BP diastolic 57–76
[2019-01-07] MEDS: NITROGLYCERIN 2% OINT 1 GM UNIT DOSE PACKET TOP SCH ×4 (00:36→17:51)
[2019-01-07] MEDS: RT-ALBUTEROL/IPRATROPIUM 3 ML (DUONEB) VIAL INH SCH ×6 (02:09→22:22)
[2019-01-07] MEDS: HYDROcodone/APAP 5 MG/325 MG (LORTAB) TAB PO PRN ×3 (04:38→21:33)
[2019-01-07] MEDS: inSUlin ASPART (NovoLOG) 1 UNIT/0.01 ML (CHARGE PER UNIT) SC SCH ×4 (05:37→21:33)
[2019-01-07] MEDS: CYANOCOBALAMIN 1,000 MCG (VITAMIN B-12) TABLET PO SCH (06:14)
[2019-01-07] MEDS: FUROSEMIDE 40 MG (LASIX) TAB PO SCH ×2 (06:14→16:35)
[2019-01-07] MEDS: MULTIVIT W/MINERALS TAB (THERAGRAN M) PO SCH (06:14)
[2019-01-07] MEDS: VITAMIN D3 1,000 UNITS (CHOLECALCIFEROL) TABLET PO SCH (06:14)
--- NOTE | 2019-01-07 07:46 | NUR ---
RT tried to decrease O2 from 5 L to 3 L at 0657 and at 0741 patient O2 Sat was at 88%, so RT Katie turned patients O2 back up to the previous 5 L
--- NOTE | 2019-01-07 07:55 | Progress Note (SOAP) ---
Subjective Time Seen by a Provider: 07:52 Subjective/Events-last exam Patient desaturates when on lower oxygen. Patient to be given prednisone. Patient be discharged tomorrow Patient improving Objective Exam Vital Signs Date Time Temp Pulse Resp B/P (MAP) Pulse Ox O2 Delivery O2 Flow Rate FiO2 01/07/19 07:41 88 Nasal Cannula 3.00 01/07/19 07:40 96.9 81 20 142/65 (90) 90 Nasal Cannula 3.00 01/07/19 06:57 97 Nasal Cannula 5.00 01/07/19 04:00 98.2 60 16 127/67 (87) 93 Nasal Cannula 6.00 01/07/19 02:09 87 NIV Bilevel 5.00 01/07/19 00:00 97.3 54 12 111/58 (75) 95 Nasal Cannula 6.00 01/06/19 22:25 90 NIV Bilevel 5.00 01/06/19 20:30 NIV CPAP 5.00 01/06/19 19:45 97.6 58 20 127/57 (80) 91 Nasal Cannula 6.00 01/06/19 19:03 94 Nasal Cannula 5.00 01/06/19 15:53 97.3 57 20 158/76 (103) 97 Nasal Cannula 6.00 01/06/19 13:00 67 01/06/19 12:05 97.3 72 20 169/84 (112) 97 Nasal Cannula 6.00 01/06/19 12:00 97.4 59 20 138/70 (92) 94 Nasal Cannula 6.00 01/06/19 10:42 96 Nasal Cannula 5.00 01/06/19 08:27 High Flow N/C 5.00 01/06/19 08:00 97.4 79 20 127/60 (82) 94 Nasal Cannula 6.00 I & O 01/07/19 07:00 Intake Total 3450 ml Output Total 5225 ml Balance -1775 ml Capillary Refill : Less Than 3 SecondsLess Than 3 Seconds General Appearance: No Apparent Distress, WD/WN HEENT: Normal ENT Inspection Neck: Full Range of Motion, Normal Inspection Respiratory: No Accessory Muscle Use, No Respiratory Distress, Decreased Breath Sounds, Other (Patient spitting up mucus) Cardiovascular: Regular Rate, Rhythm, No Murmur Gastrointestinal: non tender, soft Results Lab Laboratory Tests 01/06/19 11:07: Glucometer 70 01/06/19 11:59: Glucometer 113H 01/06/19 16:44: Glucometer 78 01/06/19 20:49: Glucometer 128H 01/07/19 05:07: Glucometer 83 Microbiology 01/04/19 Blood Culture - Preliminary, Resulted No growth 01/04/19 MRSA Screen - Final, Complete MRSA not isolated Assessment/Plan Assessment/Plan Assess & Plan/Chief Complaint Acute on chronic respiratory failure. Chest discomfort. History of proximal atrial fibrillation. Hypertension history morbid obesity. Marijuana usage Clinical Quality Measures Admission Status Admission Dx Acute and chronic respiratory failure. Bilateral pneumonia. Hypertension. Morbid obesity. CHF history. Diabetes. THC positive DVT/VTE Risk/Contraindication: Risk Factor Score Per Nursin RFS Level Per Nursing on Admit: 4+=Very High DANITA TEE DO January 07, 2019 07:55
[2019-01-07] MEDS ORDERED: predniSONE 20 MG TAB PO ONE ×2 (08:00→08:15)
[2019-01-07] MEDS ORDERED: predniSONE 20 MG TAB ONE (08:19)
[2019-01-07] MEDS: DULoxetine 30 MG (CYMBALTA) CAP PO SCH ×2 (08:37→21:32)
[2019-01-07] MEDS: busPIRone 10 MG (BUSPAR) TAB PO SCH ×2 (08:38→21:33)
[2019-01-07] MEDS: AMIODARONE 200 MG (CORDARONE) TAB PO SCH (08:38)
[2019-01-07] MEDS: ASPIRIN E.C. 81 MG (ECOTRIN) TAB PO SCH (08:38)
[2019-01-07] MEDS: PANTOPRAZOLE 40 MG (PROTONIX) TAB PO SCH (08:38)
[2019-01-07] MEDS: FAMOTIDINE 20 MG (PEPCID) TABLET PO SCH ×2 (08:38→21:33)
[2019-01-07] MEDS: lisINopril 10 MG (PRINIVIL) TABLET PO SCH (08:38)
[2019-01-07] MEDS: PREGABALIN 75 MG (LYRICA) CAP PO SCH ×2 (08:38→21:32)
[2019-01-07] MEDS: ATORVASTATIN 10 MG (LIPITOR) TABLET PO SCH (08:38)
[2019-01-07] MEDS: ROFLUMILAST 500 MCG TAB (DALIRESP) PO SCH (08:38)
[2019-01-07] MEDS: APIXABAN 5 MG (ELIQUIS) TABLET PO SCH ×2 (08:38→21:32)
[2019-01-07] MEDS: amLODIPine 5 MG (NORVASC) TAB PO SCH (08:38)
[2019-01-07] MEDS: FLUTICASONE NASAL SPRAY (FLONASE) 16 GM BTL NS SCH ×2 (09:07→21:32)
--- NOTE | 2019-01-07 09:12 | Progress Note-Cardiology ---
Cardiology SOAP Progress Note Subjective: Sitting up in a chair at the bedside. Wants to go home. Freq lose productive cough. No c/o CP or palpitations. Objective: I&O/Vital Signs 01/06/19 01/07/19 01/07/19 01/07/19 22:25 00:00 02:09 04:00 Temp 97.3 98.2 Pulse 54 60 Resp 12 16 B/P (MAP) 111/58 (75) 127/67 (87) Pulse Ox 90 95 87 93 O2 Delivery NIV Bilevel Nasal Cannula NIV Bilevel Nasal Cannula O2 Flow Rate 5.00 6.00 5.00 6.00 01/07/19 01/07/19 01/07/19 06:57 07:40 07:41 Temp 96.9 Pulse 81 Resp 20 B/P (MAP) 142/65 (90) Pulse Ox 97 90 88 O2 Delivery Nasal Cannula Nasal Cannula Nasal Cannula O2 Flow Rate 5.00 3.00 3.00 01/07/19 00:00 Intake Total 3000 ml Output Total 3425 ml Balance -425 ml Weight (Pounds): 337 Weight (Ounces): 7.7 Weight (Calculated Kilograms): 153.513143 Constitutional: AAO x 3, well-developed, well-nourished Respiratory: other (good air entry) Cardiovascular: regular rate-rhythm; No JVD; S1 and S2 Gastrointestional: No tender; soft, round, audible bowel sounds Extremities: no lower extremity edema bilateral Neurologic/Psychiatric: grossly intact, power is 5/5 both on sides Skin: No rash, No ulcerations Results/Procedures: Labs Laboratory Tests 01/06/19 11:07: Glucometer 70 01/06/19 11:59: Glucometer 113H 01/06/19 16:44: Glucometer 78 01/06/19 20:49: Glucometer 128H 01/07/19 05:07: Glucometer 83 01/07/19 08:58: White Blood Count 6.8, Red Blood Count 4.01L, Hemoglobin 11.0L, Hematocrit 37L, Mean Corpuscular Volume 91, Mean Corpuscular Hemoglobin 27, Mean Corpuscular Hemoglobin Concent 30L, Red Cell Distribution Width 16.5H, Platelet Count 171, Mean Platelet Volume 8.9 Microbiology 01/04/19 Blood Culture - Preliminary, Resulted No growth 01/04/19 MRSA Screen - Final, Complete MRSA not isolated A/P: Assessment: Ac resp failure with h/o ARDS - management per pulmonary services - resolved Sinus node dysfunction: presentation with PAF in 2015 that was treated with elec cardioversion - maintained on Amio Eliquis for stroke prophylaxis HTN - controlled Echo of 01/04/19 showed LVEF 65-70%, mod conc LVH, grade 1 gastelum dysfunction of LV , mod to sev enlargement of LA, PASP 45-50 mmHg Mild to moderate CAD on coronary angiography in 2010 Obesity with obesity-hypoventilation, TERE, and pulm hypertension. PASP was 60- 65 mmHg on echo of 2015; 45-50 mmHg on echo of 01/04/19 Marijuana use (test positive this admission) Chronic narcotic use d/t chronic back and joint pain Plan: Acute on chronic resp failure - management per pulmonary services Continue current regimen OK to discharge from cardiac stand point with out pt f/u Physician Assessment Physician Assessment Notes some weakness and tiredness, mod exertional shortness of breath, no cp Lungs: basal coarse and crackles, air entry diminished at the bases Cor: reg Ext: no c/c/e (except some nonpitting edema of the legs that is chronic) A&R * As documented in our note above that I updated (italics) and as noted below * Monitor labs PIEDAD GOEL [employer]MA[employer]ETING ASSISTANT January 07, 2019 09:12 PATSY SERVIN MD FACP FAC CCDS January 07, 2019 09:32
[2019-01-07 09:14] LABS: MEAN PLATELET VOLUME 8.9 FL (7.4-10.4); RED CELL DISTRIBUTION WIDTH 16.5 % (10.0-14.5); WHITE BLOOD COUNT 6.8 10^3/uL (4.3-11.0)
[2019-01-07 09:34] LABS: BUN/CREATININE RATIO 23; CALCIUM 9.3 MG/DL (8.5-10.1); CARBON DIOXIDE 41 MMOL/L (21-32); CHLORIDE 93 MMOL/L (98-107); CREATININE SERUM 1.05 MG/DL (0.60-1.30); GFR ESTIMATED > 60; GLUCOSE 115 MG/DL (70-105); POTASSIUM 3.9 MMOL/L (3.6-5.0); SODIUM 142 MMOL/L (135-145)
--- NOTE | 2019-01-07 10:08 | Diagnostic Imaging Report ---
INDICATION: Decreasing oxygen saturation. TECHNIQUE: Two view chest at 9:06 AM CORRELATION STUDY: 01/05/2019 FINDINGS: Unchanged cardiac enlargement. Prominent appearance about the central pulmonary arteries can be reflective of underlying pulmonary arterial hypertension. Overt failure does not appear to be suggested. Lung triana are hyperinflated with chronic change about the lung parenchyma. Suspect for superimposed infiltrate in right costophrenic angle. No appreciable effusion. Mildly advanced degenerative changes of thoracic spine. IMPRESSION: 1. Cardiac enlargement without evidence for overt failure. 2. Prominent central pulmonary arteries can be reflective of underlying pulmonary arterial hypertension. 3. Minimal atelectasis or less likely infiltrate in right costophrenic angle. Dictated by: Dictated on workstation # [id number]
[2019-01-07] MEDS: LEVOFLOXACIN 750 MG TAB (LEVAQUIN) PO SCH (11:45)
--- NOTE | 2019-01-07 11:55 | NUR ---
PRIOR TO A.M. MEDICATIONS PULSE WAS 81 AND B/P WAS 142/65.
[2019-01-08] MEDS: NITROGLYCERIN 2% OINT 1 GM UNIT DOSE PACKET TOP SCH ×2 (00:04→06:41)
[2019-01-08] MEDS: RT-ALBUTEROL/IPRATROPIUM 3 ML (DUONEB) VIAL INH SCH ×2 (02:46→07:18)
[2019-01-08 04:12] VITALS: BP 144/71
[2019-01-08] MEDS: HYDROcodone/APAP 5 MG/325 MG (LORTAB) TAB PO PRN (04:16)
[2019-01-08] MEDS: inSUlin ASPART (NovoLOG) 1 UNIT/0.01 ML (CHARGE PER UNIT) SC SCH (05:11)
[2019-01-08] MEDS: FUROSEMIDE 40 MG (LASIX) TAB PO SCH (06:41)
[2019-01-08] MEDS: VITAMIN D3 1,000 UNITS (CHOLECALCIFEROL) TABLET PO SCH (06:41)
[2019-01-08] MEDS: MULTIVIT W/MINERALS TAB (THERAGRAN M) PO SCH (06:41)
[2019-01-08] MEDS: CYANOCOBALAMIN 1,000 MCG (VITAMIN B-12) TABLET PO SCH (06:41)
--- NOTE | 2019-01-08 07:45 | Progress Note (SOAP) ---
Subjective Time Seen by a Provider: 07:43 Subjective/Events-last exam Feeling better and doing better. Patient breathing better. Patient to be discharged this morning. Objective Exam Vital Signs Date Time Temp Pulse Resp B/P (MAP) Pulse Ox O2 Delivery O2 Flow Rate FiO2 01/08/19 07:20 95 High Flow N/C 5.00 01/08/19 04:12 97.0 59 18 144/71 (95) 95 Nasal Cannula 5.00 01/08/19 02:46 94 NIV Bilevel 5.00 01/07/19 23:45 96.9 58 18 115/57 (76) 96 Nasal Cannula 5.00 01/07/19 22:22 95 NIV Bilevel 5.00 01/07/19 20:55 NIV CPAP 5.00 01/07/19 19:07 95 Nasal Cannula 5.00 01/07/19 19:06 97.8 69 16 147/69 (95) 95 Nasal Cannula 5.00 01/07/19 15:43 96.8 62 16 134/76 (95) 95 Nasal Cannula 5.00 01/07/19 15:12 96 Nasal Cannula 5.00 01/07/19 11:26 97.0 72 18 132/62 (85) 97 Nasal Cannula 5.00 01/07/19 11:20 58 97 40 01/07/19 11:18 97 Nasal Cannula 5.00 01/07/19 08:00 88 Nasal Cannula 5.00 I & O 01/08/19 07:00 Intake Total 3380 ml Output Total 5675 ml Balance -2295 ml Capillary Refill : Less Than 3 SecondsLess Than 3 Seconds General Appearance: No Apparent Distress, WD/WN HEENT: Normal ENT Inspection Neck: Full Range of Motion, Normal Inspection Respiratory: No Accessory Muscle Use, No Respiratory Distress, Decreased Breath Sounds Cardiovascular: Regular Rate, Rhythm, No Murmur Gastrointestinal: non tender, soft Results Lab Laboratory Tests 01/07/19 08:58 Laboratory Tests 01/07/19 08:58: White Blood Count 6.8, Red Blood Count 4.01L, Hemoglobin 11.0L, Hematocrit 37L, Mean Corpuscular Volume 91, Mean Corpuscular Hemoglobin 27, Mean Corpuscular Hemoglobin Concent 30L, Red Cell Distribution Width 16.5H, Platelet Count 171, Mean Platelet Volume 8.9, Sodium Level 142, Potassium Level 3.9, Chloride Level 93L, Carbon Dioxide Level 41H, Anion Gap 8, Blood Urea Nitrogen 24H, Creatinine 1.05, Estimat Glomerular Filtration Rate > 60, BUN/Creatinine Ratio 23, Glucose Level 115H, Calcium Level 9.3 01/07/19 11:26: Glucometer 85 01/07/19 15:42: Glucometer 132H 01/07/19 20:01: Glucometer 185H 01/08/19 05:08: Glucometer 87 Microbiology 01/04/19 Blood Culture - Preliminary, Resulted No growth 01/04/19 MRSA Screen - Final, Complete MRSA not isolated Assessment/Plan Assessment/Plan Assess & Plan/Chief Complaint Acute on chronic respiratory failure. Chest discomfort. History of proximal atrial fibrillation. Hypertension history morbid obesity. Marijuana usage. . 01/08/19. Acute and chronic respiratory failure. Chest discomfort. History of proximal atrial fibrillation. Hypertension. Marijuana usage Clinical Quality Measures Admission Status Admission Dx Acute and chronic respiratory failure. Bilateral pneumonia. Hypertension. Morbid obesity. CHF history. Diabetes. THC positive DVT/VTE Risk/Contraindication: Risk Factor Score Per Nursin RFS Level Per Nursing on Admit: 4+=Very High DANITA TEE DO January 08, 2019 07:45
--- NOTE | 2019-01-08 07:51 | Discharge Inst-Simple/Standard ---
Discharge Inst-Standard Patient Instructions/Follow Up Plan of Care/Instructions/FU: 2 office this Monday at 11 a.m. Activity as Tolerated: Yes Discharge Diet: ADA Diet Planned Outpatient Orders/Ref. Pneu Vac Indicated: Yes DANITA TEE DO January 08, 2019 07:51
--- NOTE | 2019-01-08 07:54 | Discharge Summary ---
Diagnosis/Chief Complaint Date of Admission January 04, 2019 at 03:05 Date of Discharge Discharge Date: January 08, 2019 Discharge Diagnosis Acute and chronic respiratory failure. Hypercapnia. Chest discomfort. Hypertension. COPD with acute exacerbation. CAD. Marijuana usage. CHF Reason Hospital Visit Patient brought to the hospital by EMS area Patient short of breath the last 2 days. Pulse ox low area Patient has a history of COPD and congestive heart failure. Patient put on BiPAP. When patient way down he was short of breath and has to sit up at home area Surgery vasectomy and scalp Discharge Summary Consultations Pulmonology Discharge Physical Examination Allergies: Coded Allergies: cephalexin (Verified Allergy, Unknown, 04/10/16) Vitals & I&Os Vital Signs Date Time Temp Pulse Resp B/P (MAP) Pulse Ox O2 Delivery O2 Flow Rate FiO2 01/08/19 07:20 95 High Flow N/C 5.00 01/08/19 04:12 97.0 59 18 144/71 (95) 01/07/19 11:20 40 Hospital Course Patient on discharge feeling much better. Patient breathing better on oxygen at 5 L Labs (last 24 hrs) Laboratory Tests 01/04/19 02:15: White Blood Count 8.0, Red Blood Count 3.85L, Hemoglobin 10.7L, Hematocrit 36L, Mean Corpuscular Volume 94, Mean Corpuscular Hemoglobin 28, Mean Corpuscular Hemoglobin Concent 30L, Red Cell Distribution Width 16.0H, Platelet Count 168, Mean Platelet Volume 9.4, Neutrophils (%) (Auto) 84H, Lymphocytes (%) (Auto) 8L , Monocytes (%) (Auto) 8, Eosinophils (%) (Auto) 0, Basophils (%) (Auto) 0, Neutrophils # (Auto) 6.7, Lymphocytes # (Auto) 0.6L, Monocytes # (Auto) 0.7, Eosinophils # (Auto) 0.0, Basophils # (Auto) 0.0, Neutrophils % (Manual) 81, Lymphocytes % (Manual) 11, Monocytes % (Manual) 5, Band Neutrophils 3, Anisocytosis SLIGHT, Prothrombin Time 13.6, INR Comment 1.0, Activated Partial Thromboplast Time 41H, Sodium Level 143, Potassium Level 4.4, Chloride Level 92L , Carbon Dioxide Level 39H, Anion Gap 12, Blood Urea Nitrogen 13, Creatinine 0.93, Estimat Glomerular Filtration Rate > 60, BUN/Creatinine Ratio 14, Glucose Level 119H, Calcium Level 9.6, Corrected Calcium 9.9, Magnesium Level 2.1, Total Bilirubin 0.3, Aspartate Amino Transf (AST/SGOT) 21, Alanine Aminotransferase (ALT/SGPT) 16, Alkaline Phosphatase 116, Troponin I < 0.028, B- Type Natriuretic Peptide 82.1, Total Protein 7.7, Albumin 3.6, TSH Knott Testing 0.88, Serum Alcohol < 10 01/04/19 02:20: Blood Gas Puncture Site LT RADIAL, Blood Gas Patient Temperature 97.2, Arterial Blood pH 7.26*L, Arterial Blood Partial Pressure CO2 108*H, Arterial Blood Partial Pressure O2 96H, Arterial Blood HCO3 47*H, Arterial Blood Total CO2 50.5H, Arterial Blood Oxygen Saturation 98, Arterial Blood Base Excess 19.1H, Neil Test YES-POS, Blood Gas Ventilator Setting NO, Blood Gas Inspired Oxygen 6 01/04/19 03:20: Lactic Acid Level 0.64 01/04/19 04:11: Urine Color YELLOW, Urine Clarity CLEAR, Urine pH 5, Urine Specific [place] 1.015L, Urine Protein 4+, Urine Glucose (UA) NEGATIVE, Urine Ketones NEGATIVE, Urine Nitrite NEGATIVE, Urine Bilirubin NEGATIVE, Urine Urobilinogen NORMAL, Urine Leukocyte Esterase NEGATIVE, Urine RBC (Auto) 4+H, Urine RBC 50-100H, Urine WBC NONE, Urine Squamous Epithelial Cells 0-2, Urine Crystals NONE, Urine Bacteria TRACE, Urine Casts PRESENT, Urine Hyaline Casts 10-25H, Urine Mucus NEGATIVE, Urine Culture Indicated NO, Urine Opiates Screen POSITIVEH, Urine Oxycodone Screen NEGATIVE, Urine Methadone Screen NEGATIVE, Urine Propoxyphene Screen NEGATIVE, Urine Barbiturates Screen NEGATIVE, Ur Tricyclic Antidepressants Screen NEGATIVE, Urine Phencyclidine Screen NEGATIVE, Urine Amphetamines Screen NEGATIVE, Urine Methamphetamines Screen NEGATIVE, Urine Benzodiazepines Screen NEGATIVE, Urine Cocaine Screen NEGATIVE, Urine Cannabinoids Screen POSITIVEH 01/04/19 04:13: Blood Gas Puncture Site LT RAD, Blood Gas Patient Temperature 96.3, Arterial Blood pH 7.34*L, Arterial Blood Partial Pressure CO2 89*H, Arterial Blood Partial Pressure O2 73L, Arterial Blood HCO3 48*H, Arterial Blood Total CO2 50.4H, Arterial Blood Oxygen Saturation 96, Arterial Blood Base Excess 20.5H, Neil Test YES-POS, Blood Gas Ventilator Setting NO, Blood Gas Inspired Oxygen 40% BIPAP 01/04/19 04:45: Mean Blood Glucose 105, Hemoglobin A1c 5.3 01/04/19 10:30: Blood Gas Puncture Site RT RAD, Blood Gas Patient Temperature 98.8, Arterial Blood pH 7.44H, Arterial Blood Partial Pressure CO2 70H, Arterial Blood Partial Pressure O2 59L, Arterial Blood HCO3 47*H, Arterial Blood Total CO2 49.1H, Arterial Blood Oxygen Saturation 92L, Arterial Blood Base Excess 21.2H, Neil Test YES-POS, Blood Gas Ventilator Setting NO, Blood Gas Inspired Oxygen 30 01/04/19 10:59: Glucometer 157H 01/04/19 15:57: Glucometer 186H 01/04/19 21:11: Glucometer 157H 01/05/19 02:58: White Blood Count 5.3, Red Blood Count 3.74L, Hemoglobin 10.4L, Hematocrit 33L, Mean Corpuscular Volume 89, Mean Corpuscular Hemoglobin 28, Mean Corpuscular Hemoglobin Concent 31L, Red Cell Distribution Width 16.4H, Platelet Count 178, Mean Platelet Volume 9.2, Neutrophils (%) (Auto) 87H, Lymphocytes (%) (Auto) 8L , Monocytes (%) (Auto) 5, Eosinophils (%) (Auto) 0, Basophils (%) (Auto) 0, Neutrophils # (Auto) 4.6, Lymphocytes # (Auto) 0.4L, Monocytes # (Auto) 0.3, Eosinophils # (Auto) 0.0, Basophils # (Auto) 0.0, Sodium Level 142, Potassium Level 3.8, Chloride Level 93L, Carbon Dioxide Level 40H, Anion Gap 9, Blood Urea Nitrogen 24H, Creatinine 0.97, Estimat Glomerular Filtration Rate > 60, BUN /Creatinine Ratio 25, Glucose Level 145H, Calcium Level 9.7, Corrected Calcium 10.3H, Phosphorus Level 2.7, Magnesium Level 1.8, Total Bilirubin 0.3, Aspartate Amino Transf (AST/SGOT) 16, Alanine Aminotransferase (ALT/SGPT) 15, Alkaline Phosphatase 98, Total Protein 6.8, Albumin 3.2 01/05/19 04:55: Blood Gas Puncture Site RIGHT RADIAL, Blood Gas Patient Temperature 97.2, Arterial Blood pH 7.49H, Arterial Blood Partial Pressure CO2 58H, Arterial Blood Partial Pressure O2 88, Arterial Blood HCO3 44*H, Arterial Blood Total CO2 45.5H, Arterial Blood Oxygen Saturation 98, Arterial Blood Base Excess 18.4H , Neil Test YES-POS, Blood Gas Ventilator Setting NO, Blood Gas Inspired Oxygen 45% 01/05/19 13:21: Glucometer 134H 01/05/19 15:55: Glucometer 90 01/05/19 21:01: Glucometer 100 01/06/19 05:06: White Blood Count 8.3, Red Blood Count 3.90L, Hemoglobin 10.6L, Hematocrit 35L, Mean Corpuscular Volume 90, Mean Corpuscular Hemoglobin 27, Mean Corpuscular Hemoglobin Concent 30L, Red Cell Distribution Width 16.9H, Platelet Count 192, Mean Platelet Volume 8.7, Neutrophils (%) (Auto) 71, Lymphocytes (%) (Auto) 19, Monocytes (%) (Auto) 10, Eosinophils (%) (Auto) 0, Basophils (%) (Auto) 0, Neutrophils # (Auto) 5.9, Lymphocytes # (Auto) 1.6, Monocytes # (Auto) 0.8, Eosinophils # (Auto) 0.0, Basophils # (Auto) 0.0, Sodium Level 142, Potassium Level 3.7, Chloride Level 95L, Carbon Dioxide Level 38H, Anion Gap 9, Blood Urea Nitrogen 32H, Creatinine 1.01, Estimat Glomerular Filtration Rate > 60, BUN /Creatinine Ratio 32, Glucose Level 83, Calcium Level 9.0, Corrected Calcium 9.8 , Total Bilirubin 0.3, Aspartate Amino Transf (AST/SGOT) 28, Alanine Aminotransferase (ALT/SGPT) 21, Alkaline Phosphatase 84, Total Protein 6.2L, Albumin 3.0L 01/06/19 05:24: Glucometer 75 01/06/19 11:07: Glucometer 70 01/06/19 11:59: Glucometer 113H 01/06/19 16:44: Glucometer 78 01/06/19 20:49: Glucometer 128H 01/07/19 05:07: Glucometer 83 01/07/19 08:58: White Blood Count 6.8, Red Blood Count 4.01L, Hemoglobin 11.0L, Hematocrit 37L, Mean Corpuscular Volume 91, Mean Corpuscular Hemoglobin 27, Mean Corpuscular Hemoglobin Concent 30L, Red Cell Distribution Width 16.5H, Platelet Count 171, Mean Platelet Volume 8.9, Sodium Level 142, Potassium Level 3.9, Chloride Level 93L, Carbon Dioxide Level 41H, Anion Gap 8, Blood Urea Nitrogen 24H, Creatinine 1.05, Estimat Glomerular Filtration Rate > 60, BUN/Creatinine Ratio 23, Glucose Level 115H, Calcium Level 9.3 01/07/19 11:26: Glucometer 85 01/07/19 15:42: Glucometer 132H 01/07/19 20:01: Glucometer 185H 01/08/19 05:08: Glucometer 87 Microbiology 01/04/19 Blood Culture - Preliminary, Resulted No growth 01/04/19 MRSA Screen - Final, Complete MRSA not isolated Laboratory Tests 01/04/19 02:15 01/05/19 02:58 01/06/19 05:06 01/07/19 08:58 Pending Labs Microbiology Date/Time Source Procedure Growth Status 01/04/19 03:47 Peripheral Rt Ac Blood Culture - Preliminary No growth Resulted 01/04/19 03:20 Peripheral Rt Hand Blood Culture - Preliminary No growth Resulted 01/04/19 05:00 Nasal MRSA Screen - Final MRSA not isolated Complete 01/04/19 05:00 Sputum Expectorated Gram Stain - Final Complete 01/04/19 05:00 Sputum Culture - Final Usual upper respiratory analilia Complete Laboratory Tests 01/04/19 02:15: White Blood Count 8.0, Red Blood Count 3.85, Hemoglobin 10.7, Hematocrit 36, Mean Corpuscular Volume 94, Mean Corpuscular Hemoglobin 28, Mean Corpuscular Hemoglobin Concent 30, Red Cell Distribution Width 16.0, Platelet Count 168, Mean Platelet Volume 9.4, Neutrophils (%) (Auto) 84, Lymphocytes (%) (Auto) 8, Monocytes (%) (Auto) 8, Eosinophils (%) (Auto) 0, Basophils (%) (Auto) 0, Neutrophils # (Auto) 6.7, Lymphocytes # (Auto) 0.6, Monocytes # (Auto) 0.7, Eosinophils # (Auto) 0.0, Basophils # (Auto) 0.0, Neutrophils % (Manual) 81, Lymphocytes % (Manual) 11, Monocytes % (Manual) 5, Band Neutrophils 3, Anisocytosis SLIGHT, Prothrombin Time 13.6, INR Comment 1.0, Activated Partial Thromboplast Time 41, Sodium Level 143, Potassium Level 4.4, Chloride Level 92, Carbon Dioxide Level 39, Anion Gap 12, Blood Urea Nitrogen 13, Creatinine 0.93, Estimat Glomerular Filtration Rate > 60, BUN/Creatinine Ratio 14, Glucose Level 119, Calcium Level 9.6, Corrected Calcium 9.9, Magnesium Level 2.1, Total Bilirubin 0.3, Aspartate Amino Transf (AST/SGOT) 21, Alanine Aminotransferase ( ALT/SGPT) 16, Alkaline Phosphatase 116, Troponin I < 0.028, B-Type Natriuretic Peptide 82.1, Total Protein 7.7, Albumin 3.6, TSH Knott Testing 0.88, Serum Alcohol < 10 01/04/19 02:20: Blood Gas Puncture Site LT RADIAL, Blood Gas Patient Temperature 97.2, Arterial Blood pH 7.26, Arterial Blood Partial Pressure CO2 108, Arterial Blood Partial Pressure O2 96, Arterial Blood HCO3 47, Arterial Blood Total CO2 50.5, Arterial Blood Oxygen Saturation 98, Arterial Blood Base Excess 19.1, Neil Test YES-POS , Blood Gas Ventilator Setting NO, Blood Gas Inspired Oxygen 6 01/04/19 03:20: Lactic Acid Level 0.64 01/04/19 04:11: Urine Color YELLOW, Urine Clarity CLEAR, Urine pH 5, Urine Specific [place] 1.015, Urine Protein 4+, Urine Glucose (UA) NEGATIVE, Urine Ketones NEGATIVE, Urine Nitrite NEGATIVE, Urine Bilirubin NEGATIVE, Urine Urobilinogen NORMAL, Urine Leukocyte Esterase NEGATIVE, Urine RBC (Auto) 4+, Urine RBC 50-100, Urine WBC NONE, Urine Squamous Epithelial Cells 0-2, Urine Crystals NONE, Urine Bacteria TRACE, Urine Casts PRESENT, Urine Hyaline Casts 10-25, Urine Mucus NEGATIVE, Urine Culture Indicated NO, Urine Opiates Screen POSITIVE, Urine Oxycodone Screen NEGATIVE, Urine Methadone Screen NEGATIVE, Urine Propoxyphene Screen NEGATIVE, Urine Barbiturates Screen NEGATIVE, Ur Tricyclic Antidepressants Screen NEGATIVE, Urine Phencyclidine Screen NEGATIVE, Urine Amphetamines Screen NEGATIVE, Urine Methamphetamines Screen NEGATIVE, Urine Benzodiazepines Screen NEGATIVE, Urine Cocaine Screen NEGATIVE, Urine Cannabinoids Screen POSITIVE 01/04/19 04:13: Blood Gas Puncture Site LT RAD, Blood Gas Patient Temperature 96.3, Arterial Blood pH 7.34, Arterial Blood Partial Pressure CO2 89, Arterial Blood Partial Pressure O2 73, Arterial Blood HCO3 48, Arterial Blood Total CO2 50.4, Arterial Blood Oxygen Saturation 96, Arterial Blood Base Excess 20.5, Neil Test YES-POS , Blood Gas Ventilator Setting NO, Blood Gas Inspired Oxygen 40% BIPAP 01/04/19 04:45: Mean Blood Glucose 105, Hemoglobin A1c 5.3 01/04/19 10:30: Blood Gas Puncture Site RT RAD, Blood Gas Patient Temperature 98.8, Arterial Blood pH 7.44, Arterial Blood Partial Pressure CO2 70, Arterial Blood Partial Pressure O2 59, Arterial Blood HCO3 47, Arterial Blood Total CO2 49.1, Arterial Blood Oxygen Saturation 92, Arterial Blood Base Excess 21.2, Neil Test YES-POS , Blood Gas Ventilator Setting NO, Blood Gas Inspired Oxygen 30 01/04/19 10:59: Glucometer 157 01/04/19 15:57: Glucometer 186 01/04/19 21:11: Glucometer 157 01/05/19 02:58: White Blood Count 5.3, Red Blood Count 3.74, Hemoglobin 10.4, Hematocrit 33, Mean Corpuscular Volume 89, Mean Corpuscular Hemoglobin 28, Mean Corpuscular Hemoglobin Concent 31, Red Cell Distribution Width 16.4, Platelet Count 178, Mean Platelet Volume 9.2, Neutrophils (%) (Auto) 87, Lymphocytes (%) (Auto) 8, Monocytes (%) (Auto) 5, Eosinophils (%) (Auto) 0, Basophils (%) (Auto) 0, Neutrophils # (Auto) 4.6, Lymphocytes # (Auto) 0.4, Monocytes # (Auto) 0.3, Eosinophils # (Auto) 0.0, Basophils # (Auto) 0.0, Sodium Level 142, Potassium Level 3.8, Chloride Level 93, Carbon Dioxide Level 40, Anion Gap 9, Blood Urea Nitrogen 24, Creatinine 0.97, Estimat Glomerular Filtration Rate > 60, BUN/ Creatinine Ratio 25, Glucose Level 145, Calcium Level 9.7, Corrected Calcium 10.3, Phosphorus Level 2.7, Magnesium Level 1.8, Total Bilirubin 0.3, Aspartate Amino Transf (AST/SGOT) 16, Alanine Aminotransferase (ALT/SGPT) 15, Alkaline Phosphatase 98, Total Protein 6.8, Albumin 3.2 01/05/19 04:55: Blood Gas Puncture Site RIGHT RADIAL, Blood Gas Patient Temperature 97.2, Arterial Blood pH 7.49, Arterial Blood Partial Pressure CO2 58, Arterial Blood Partial Pressure O2 88, Arterial Blood HCO3 44, Arterial Blood Total CO2 45.5, Arterial Blood Oxygen Saturation 98, Arterial Blood Base Excess 18.4, Neil Test YES-POS, Blood Gas Ventilator Setting NO, Blood Gas Inspired Oxygen 45% 01/05/19 13:21: Glucometer 134 01/05/19 15:55: Glucometer 90 01/05/19 21:01: Glucometer 100 01/06/19 05:06: White Blood Count 8.3, Red Blood Count 3.90, Hemoglobin 10.6, Hematocrit 35, Mean Corpuscular Volume 90, Mean Corpuscular Hemoglobin 27, Mean Corpuscular Hemoglobin Concent 30, Red Cell Distribution Width 16.9, Platelet Count 192, Mean Platelet Volume 8.7, Neutrophils (%) (Auto) 71, Lymphocytes (%) (Auto) 19, Monocytes (%) (Auto) 10, Eosinophils (%) (Auto) 0, Basophils (%) (Auto) 0, Neutrophils # (Auto) 5.9, Lymphocytes # (Auto) 1.6, Monocytes # (Auto) 0.8, Eosinophils # (Auto) 0.0, Basophils # (Auto) 0.0, Sodium Level 142, Potassium Level 3.7, Chloride Level 95, Carbon Dioxide Level 38, Anion Gap 9, Blood Urea Nitrogen 32, Creatinine 1.01, Estimat Glomerular Filtration Rate > 60, BUN/ Creatinine Ratio 32, Glucose Level 83, Calcium Level 9.0, Corrected Calcium 9.8 , Total Bilirubin 0.3, Aspartate Amino Transf (AST/SGOT) 28, Alanine Aminotransferase (ALT/SGPT) 21, Alkaline Phosphatase 84, Total Protein 6.2, Albumin 3.0 01/06/19 05:24: Glucometer 75 01/06/19 11:07: Glucometer 70 01/06/19 11:59: Glucometer 113 01/06/19 16:44: Glucometer 78 01/06/19 20:49: Glucometer 128 01/07/19 05:07: Glucometer 83 01/07/19 08:58: White Blood Count 6.8, Red Blood Count 4.01, Hemoglobin 11.0, Hematocrit 37, Mean Corpuscular Volume 91, Mean Corpuscular Hemoglobin 27, Mean Corpuscular Hemoglobin Concent 30, Red Cell Distribution Width 16.5, Platelet Count 171, Mean Platelet Volume 8.9, Sodium Level 142, Potassium Level 3.9, Chloride Level 93, Carbon Dioxide Level 41, Anion Gap 8, Blood Urea Nitrogen 24, Creatinine 1.05, Estimat Glomerular Filtration Rate > 60, BUN/Creatinine Ratio 23, Glucose Level 115, Calcium Level 9.3 01/07/19 11:26: Glucometer 85 01/07/19 15:42: Glucometer 132 01/07/19 20:01: Glucometer 185 01/08/19 05:08: Glucometer 87 Discharge Home Medications: Active Scripts Active Reported Aspirin EC (Aspirin) 81 Mg Tablet.dr 81 Mg PO DAILY Naproxen 250 Mg Tablet 250 Mg PO BID PRN Metoprolol Succinate 25 Mg Tab.er.24h 12.5 Mg PO DAILY TAKES 1/2 (25MG) TABLET Daliresp (Roflumilast) 500 Mcg Tablet 500 Mcg PO DAILY Pantoprazole Sodium 40 Mg Tablet.dr 40 Mg PO DAILY Eliquis (Apixaban) 5 Mg Tablet 5 Mg PO BID Amiodarone HCl 200 Mg Tablet 200 Mg PO DAILY Buspirone HCl 10 Mg Tablet 10 Mg PO BID Sildenafil (Sildenafil Citrate) 20 Mg Tablet 20 Mg PO TID Vitamin A (Vitamin A Palmitate) 10,000 Unit Capsule 10,000 Unit PO DAILY Vitamin D3 (Cholecalciferol (Vitamin D3)) 1,000 Unit Capsule 1,000 Unit PO DAILY Hydrocodone-Acetamin 5-325 mg (Hydrocodone/Acetaminophen) 1 Each Tablet 1 Tab PO TID PRN Centrum Adults Tablet (Multivitamin/Iron/Folic Acid) 1 Each Tablet 1 Tab PO DAILY Vitamin B-12 5,000 Mcg Tab Sl (Cyanocobalamin/Cobamamide) 1 Each Tab.subl 5,000 Mcg SL DAILY Lisinopril 10 Mg Tablet 10 Mg PO DAILY Furosemide 40 Mg Tablet 40 Mg PO BID LAST FILLED #180 09-11-18 Albuterol Sulfate 2.5 Mg/3 Ml Vial.neb 2.5 Mg IH 5XD Lyrica (Pregabalin) 150 Mg Capsule 150 Mg PO BID Atorvastatin Calcium 10 Mg Tablet 10 Mg PO DAILY Amlodipine Besylate 5 Mg Tablet 5 Mg PO DAILY Ranitidine HCl 150 Mg Tablet 150 Mg PO BID Symbicort 160-4.5 Mcg Inhaler (Budesonide/Formoterol Fumarate) 10.2 Gm Hfa.aer.ad 2 Puff INH BID Duloxetine HCl 60 Mg Capsule.dr 60 Mg PO BID Instructions to patient/family Please see electronic discharge instructions given to patient. Clinical Quality Measures DVT/VTE Risk/Contraindication: Risk Factor Score Per Nursin RFS Level Per Nursing on Admit: 4+=Very High DANITA TEE DO January 08, 2019 07:54
[2019-01-08] MEDS: busPIRone 10 MG (BUSPAR) TAB PO SCH (08:02)
[2019-01-08] MEDS: ROFLUMILAST 500 MCG TAB (DALIRESP) PO SCH (08:02)
[2019-01-08] MEDS: PREGABALIN 75 MG (LYRICA) CAP PO SCH (08:02)
[2019-01-08] MEDS: lisINopril 10 MG (PRINIVIL) TABLET PO SCH (08:03)
[2019-01-08] MEDS: ATORVASTATIN 10 MG (LIPITOR) TABLET PO SCH (08:03)
[2019-01-08] MEDS: DULoxetine 30 MG (CYMBALTA) CAP PO SCH (08:03)
[2019-01-08] MEDS: FAMOTIDINE 20 MG (PEPCID) TABLET PO SCH (08:03)
[2019-01-08] MEDS: ASPIRIN E.C. 81 MG (ECOTRIN) TAB PO SCH (08:03)
[2019-01-08] MEDS: amLODIPine 5 MG (NORVASC) TAB PO SCH (08:03)
[2019-01-08] MEDS: APIXABAN 5 MG (ELIQUIS) TABLET PO SCH (08:03)
[2019-01-08] MEDS: AMIODARONE 200 MG (CORDARONE) TAB PO SCH (08:03)
[2019-01-08] MEDS: FLUTICASONE NASAL SPRAY (FLONASE) 16 GM BTL NS SCH (08:04)
[2019-01-08] MEDS: PANTOPRAZOLE 40 MG (PROTONIX) TAB PO SCH (08:07)
[2019-01-08] MEDS: LEVOFLOXACIN 750 MG TAB (LEVAQUIN) PO SCH (08:20)
[2019-01-08] MEDS ORDERED: LEVO750T9 PO (08:23)
[2019-01-08 08:27] VITALS: BP 139/62
[2019-01-08 10:07] VITALS: BP 139/62
[2019-01-08] MEDS ORDERED: RT-ALBUTEROL/IPRATROPIUM 3 ML (DUONEB) VIAL ONE (10:21)
== END 2019-01-08 09:10 | disposition home or self-care (01) | DRG 189 ==
LOC: EDUNIT# 01:03 → ER 01:05 → ICU 03:05 → 4TH 01-05 13:13
PROVIDERS: ADMIT Family Medicine; ATTEND Family Medicine
DX: J96.21 Acute and chronic respiratory failure with hypoxia (principal); J18.9 Pneumonia, unspecified organism; J44.1 Chronic obstructive pulmonary disease with (acute) exacerbation; J81.1 Chronic pulmonary edema; E66.2 Morbid (severe) obesity with alveolar hypoventilation; I13.0 Hypertensive heart and chronic kidney disease with heart failure and stage 1 through stage 4 chronic kidney disease, or unspecified chronic kidney disease; I50.9 Heart failure, unspecified; N18.2 Chronic kidney disease, stage 2 (mild); E87.70 Fluid overload, unspecified; I27.20 Pulmonary hypertension, unspecified; I25.10 Atherosclerotic heart disease of native coronary artery without angina pectoris; E11.9 Type 2 diabetes mellitus without complications; D64.9 Anemia, unspecified; E78.00 Pure hypercholesterolemia, unspecified; I87.8 Other specified disorders of veins; F41.9 Anxiety disorder, unspecified; F32.9 Major depressive disorder, single episode, unspecified; M81.0 Age-related osteoporosis without current pathological fracture; M62.838 Other muscle spasm; M54.9 Dorsalgia, unspecified; R29.6 Repeated falls; Z99.81 Dependence on supplemental oxygen; Z86.79 Personal history of other diseases of the circulatory system; Z79.899 Other long term (current) drug therapy; Z87.891 Personal history of nicotine dependence; Z79.01 Long term (current) use of anticoagulants
CPT/HCPCS: 36415; 71045; 71046; 80048; 80053; 80306; 80320; 81000; 82805; 82962; 83036; 83605; 83735; 83880; 84100; 84443; 84484; 85007; 85025; 85027; 85610; 85730; 87040; 87070; 87081; 87205; 93005; 93041; 93306; 94640; 94660; 94760; 96374; 96375; 96376; 99291

== ENCOUNTER 2019-04-03 23:57 | Inpatient (IN) | payer MEDICARE | END 2019-04-07 12:50 | disposition home or self-care (01) | LOC: ICU 04-04 02:00 → ER 23:57 → 4TH 04-05 11:15 ==

== ENCOUNTER → 2019-04-25 | Outpatient (CLI) | payer MEDICARE ==
[~2019-04-25] MED LIST changes: +ALBU18HF2 INH; -ALBU2.5V4 IH; +ALBU2.5V4 NEB; +AMIO200T4 PO; +AMOX1TAB12 PO; +APIX5TAB PO; +ASPI-983 PO; +BUSP10TA95 PO; -CYAN500T2 PO; +CYAN500T62 PO; +DULO60CA59 PO; +METO-387 PO; +NAPR250T6 PO; +PANT40TA3 PO; +ROFL500T PO; +SILD20TA14 PO
--- NOTE | 2019-04-25 16:15 | Diagnostic Imaging Report ---
INDICATION: Fall and right hip pain. Time of exam 12:29 p.m. FINDINGS: Two views of the right hip were obtained. Femoral acetabular alignment is normal. Joint spaces are well maintained. Femoral head and neck appear to be intact. No fractures are seen. Right-sided rami appear to be intact. IMPRESSION: No acute bony abnormality is detected. Dictated by: Dictated on workstation # [id number]
== END ==
LOC: RAD 12:16
PROVIDERS: ATTEND Family Medicine
DX: M25.551 Pain in right hip (principal); W19.XXXA Unspecified fall, initial encounter
CPT/HCPCS: 73502

== ENCOUNTER → 2019-05-31 | Outpatient (CLI) | payer MEDICARE ==
--- NOTE | 2019-05-31 19:27 | Diagnostic Imaging Report ---
INDICATION: Leg swelling. EXAMINATION: Ultrasound of the left lower extremity, nonvascular. COMPARISON: There are no prior studies available for comparison. FINDINGS: There is a sizable, 11.1 x 2.9 x 10.9 cm complex hypoechoic avascular area in the musculature of the lower leg. Most likely this is due to a hematoma/seroma. The possibility that this is related to an abscess would be less likely but should still be considered. No other abnormality is identified. IMPRESSION: There does appear to be a complicated fluid collection amidst the soft tissues of the left lower leg. This is most likely related to a hematoma/?eroma. An abscess should also be considered. Dictated by: Dictated on workstation # [id number]
== END ==
LOC: RAD 13:45
PROVIDERS: ATTEND Family Medicine
DX: M79.89 Other specified soft tissue disorders (principal)
CPT/HCPCS: 76881

== ENCOUNTER 2019-07-07 21:18 | Emergency (ER) | payer MEDICARE ==
[~2019-07-07] VITALS: Ht 177 cm; Wt 145.1 kg
[~2019-07-07 21:18] MED LIST changes: +FURO-124 PO; +PENI500T PO
[2019-07-07 21:42] LABS: ABG OXYGEN SATURATION 93 % (94-100); ABG PO2 70 MMHG (79-93); ABG TCO2 41.8 MMOL/L (21.0-31.0)
--- NOTE | 2019-07-07 21:42 | ED Respiratory ---
General Chief Complaint: Respiratory Problems Stated Complaint: SOA Source: patient Exam Limitations: no limitations History of Present Illness Date Seen by Provider: Jul 07, 2019 Time Seen by Provider: 21:39 Initial Comments To ER with reports of shortness of breath. He was just released from the hospital on 07/04, he was admitted for sepsis, COPD exacerbation, acute on chronic heart failure. He was also found to have enterococcal bacteremia. Reports worsening shortness of breath starting today Timing/Duration: this morning, getting worse Severity: moderate Prior Episodes/Possible Cause: frequent episodes Associated Symptoms: cough Allergies and Home Medications Allergies Coded Allergies: cephalexin (Verified Adverse Reaction, Unknown, unknown- tolerated Rocephin with no issue 06/2019, 06/29/19) Home Medications Albuterol Sulfate 2.5 Mg/3 Ml Vial.neb, 2.5 MG NEB Q4H PRN for SHORTNESS OF BREATH, (Reported) Albuterol Sulfate 18 Gm Hfa.aer.ad, 2 PUFF INH Q4H PRN for SHORTNESS OF BREATH, (Reported) Amiodarone HCl 200 Mg Tablet, 200 MG PO 0900, (Reported) Amlodipine Besylate 5 Mg Tablet, 5 MG PO DAILY, (Reported) Apixaban 5 Mg Tablet, 5 MG PO BID, (Reported) Aspirin 81 Mg Tablet.dr, 81 MG PO DAILY, (Reported) Atorvastatin Calcium 10 Mg Tablet, 10 MG PO DAILY, (Reported) Buspirone HCl 10 Mg Tablet, 10 MG PO BID, (Reported) Cholecalciferol (Vitamin D3) 1,000 Unit Capsule, 1,000 UNIT PO DAILY, (Reported) Cyanocobalamin/Cobamamide 1 Each Tab.subl, 5,000 MCG SL DAILY, (Reported) Duloxetine HCl 60 Mg Capsule.dr, 60 MG PO BID, (Reported) Furosemide 40 Mg Tablet, 40 MG PO BID, (Reported) Hydrocodone/Acetaminophen 1 Each Tablet, 1 TAB PO TID PRN for PAIN-MODERATE, (Reported) Lisinopril 10 Mg Tablet, 10 MG PO DAILY, (Reported) Metoprolol Succinate 25 Mg Tab.er.24h, 12.5 MG PO DAILY, (Reported) TAKES 1/2 (25MG) TABLET Multivitamin/Iron/Folic Acid 1 Each Tablet, 1 TAB PO DAILY, (Reported) Pantoprazole Sodium 40 Mg Tablet.dr, 40 MG PO DAILY, (Reported) Penicillin V Potassium 500 Mg Tablet, 500 MG PO QID Prescribed by: JACQUI HUBBARD on 07/04/19 1044 Pregabalin 150 Mg Capsule, 150 MG PO BID, (Reported) Roflumilast 500 Mcg Tablet, 500 MCG PO DAILY, (Reported) Sildenafil Citrate 20 Mg Tablet, 20 MG PO TID, (Reported) Vitamin A Palmitate 10,000 Unit Capsule, 10,000 UNIT PO DAILY, (Reported) Patient Home Medication List Home Medication List Reviewed: Yes Review of Systems Review of Systems Constitutional: see HPI EENTM: see HPI Respiratory: no symptoms reported Cardiovascular: no symptoms reported Genitourinary: no symptoms reported Musculoskeletal: no symptoms reported Skin: no symptoms reported Psychiatric/Neurological: No Symptoms Reported Hematologic/Lymphatic: No Symptoms Reported Immunological/Allergic: no symptoms reported Past Gvupwfe-Ppyqcr-Rgjfrj Hx Patient Social History Drug of Choice: THC Type Used: Cigarettes Former Smoker, Quit: Sep 18, 2015 2nd Hand Smoke Exposure: No Recent Foreign Travel: No Contact w/Someone Who Travel: No Recent Hopitalizations: No Immunizations Up To Date Tetanus Booster (TDap): Unknown Date of Pneumonia Vaccine: Sep 04, 2012 Date of Influenza Vaccine: Jun 10, 2019 Seasonal Allergies Seasonal Allergies: Yes Past Medical History Surgeries: Yes (FATTY TUMOR REMOVED FROM TOP OF HEAD. CARDIAC CATH X 2--NO INTERVENTION) Cardiac, Vasectomy Respiratory: Yes Pneumonia, Chronic Bronchitis, Sleep Apnea, COPD, Emphysema Currently Using CPAP: Yes (WAS WEARING AT HOME PER EMS) Currently Using BIPAP: Yes Cardiac: Yes Chronic Edema/Swelling, Coronary Artery Disease, High Cholesterol, Hypertension, Valvular Heart Disease Neurological: No Reproductive Disorders: No Sexually Transmitted Disease: No HIV/AIDS: No Genitourinary: Yes (RENAL INSUFFICIENCY) Renal Failure Gastrointestinal: Yes Colitis Musculoskeletal: Yes ("BULGING DISCS" ; CHRONIC "JERKING" OF MUSCLES; CHRONIC NARCOTIC USE) Degenerate Disk Disease, Osteoporosis, Arthritis, Back Injury, Chronic Back Pain, Fractures, Spasms Endocrine: Yes (MORBID OBESITY) Diabetes, Non-Insulin dep HEENT: Yes (NEAR SIGHTED) Loss of Vision: Bilateral Hearing Impairment: Denies Cancer: No Psychosocial: Yes Anxiety, Depression Integumentary: No Blood Disorders: No Adverse Reaction/Blood Tranf: No Family Medical History Arthritis 19 MOTHER Cardiovascular disease 19 MOTHER FH: lung cancer 19 FATHER Hypertension 19 MOTHER No Family History of: AIDS Abdominal aortic aneurysm Fillmore's disease Alcoholism Alzheimer's disease Aphasia Asthma Cancer of mouth Cataracts Colon cancer Completed stroke Congenital disease Congenital heart disease Coronary thrombosis Cystic fibrosis Deafness or hearing loss Dementia Diabetes mellitus Drug abuse Dysphasia Fibrocystic disease of breast Gastroenteritis Glaucoma Headache disorder Hypercholesterolemia Infertility Kidney disease Myocardial infarction Neoplasm Not obtainable due to adoption Osteoporosis Parkinson's disease Prostate cancer Psychosocial problem Respiratory disorder Seizure disorder Severe allergy Thyroid disease Tuberculosis Visual disorder AAA, Heart Disease, Cancer, Hypertension Physical Exam Vital Signs - First Documented 07/07/19 07/07/19 21:25 21:37 Temp 36.7 Pulse 58 Resp 24 B/P (MAP) 212/91 (131) Pulse Ox 88 O2 Delivery Nasal Cannula O2 Flow Rate 5.00 FiO2 60 Capillary Refill : Height: 5'10.00" Weight: 348lbs. 6.0oz. 158.063283tb; 49.03 BMI Method:Stated General Appearance: WD/WN, mild distress Eyes: Bilateral Eye Normal Inspection, Bilateral Eye PERRL, Bilateral Eye EOMI HEENT: PERRL/EOMI, normal ENT inspection Neck: non-tender, full range of motion Respiratory: decreased breath sounds (markedly diminished breath sounds, BiPAP initiated), accessory muscle use Cardiovascular: regular rate, rhythm, no murmur Gastrointestinal: normal bowel sounds, non tender, soft Extremities: normal range of motion, non-tender Neurologic/Psychiatric: alert, normal mood/affect, oriented x 3 Skin: normal color, warm/dry Focused Exam Lactate Level 07/07/19 21:40: Lactic Acid Level 0.72 Lactic Acid Level Laboratory Tests Test 07/07/19 21:40 Lactic Acid Level 0.72 MMOL/L (0.50-2.00) Procedures/Interventions Date of ETT Placement: Sep 22, 2018 Time of ETT Placement: 075 Progress/Results/Core Measures Suspected Sepsis SIRS Temperature: Pulse: Respiratory Rate: Laboratory Tests 07/07/19 21:40: White Blood Count 7.6 Blood Pressure / Mean: 07/07/19 21:40: Lactic Acid Level 0.72 Laboratory Tests 07/07/19 21:40: Creatinine 1.48H, INR Comment 1.0, Platelet Count 193, Total Bilirubin 0.3 Results/Orders Lab Results Laboratory Tests Test 07/07/19 21:19 07/07/19 21:33 07/07/19 21:40 07/07/19 23:11 Range/Units Lab Scanned Report Referred Lab Report [id number] Blood Gas Puncture Site LEFT WRIST Blood Gas Patient Temperature 36.7 Arterial Blood pH 7.27 *L 7.37-7.43 Arterial Blood Partial Pressure CO2 88 *H 35-45 MMHG Arterial Blood Partial Pressure O2 70 L 79-93 MMHG Arterial Blood HCO3 39 H 23-27 MMOL/L Arterial Blood Total CO2 41.8 H 21.0-31.0 MMOL/L Arterial Blood Oxygen Saturation 93 L 94-100 % Arterial Blood Base Excess 12.0 H -2.5-2.5 MMOL/L Neil Test YES-POS Blood Gas Ventilator Setting NO Blood Gas Inspired Oxygen 10L White Blood Count 7.6 4.3-11.0 10^3/uL Red Blood Count 3.65 L 4.35-5.85 10^6/uL Hemoglobin 10.2 L 13.3-17.7 G/DL Hematocrit 35 L 40-54 % Mean Corpuscular Volume 95 80-99 FL Mean Corpuscular Hemoglobin 28 25-34 PG Mean Corpuscular Hemoglobin Concent 29 L 32-36 G/DL Red Cell Distribution Width 15.8 H 10.0-14.5 % Platelet Count 193 130-400 10^3/uL Mean Platelet Volume 9.2 7.4-10.4 FL Neutrophils (%) (Auto) 76 H 42-75 % Lymphocytes (%) (Auto) 14 12-44 % Monocytes (%) (Auto) 8 0-12 % Eosinophils (%) (Auto) 1 0-10 % Basophils (%) (Auto) 0 0-10 % Neutrophils # (Auto) 5.8 1.8-7.8 X 10^3 Lymphocytes # (Auto) 1.1 1.0-4.0 X 10^3 Monocytes # (Auto) 0.6 0.0-1.0 X 10^3 Eosinophils # (Auto) 0.1 0.0-0.3 10^3/uL Basophils # (Auto) 0.0 0.0-0.1 10^3/uL Prothrombin Time 13.6 12.2-14.7 SEC INR Comment 1.0 0.8-1.4 Sodium Level 139 135-145 MMOL/L Potassium Level 5.0 3.6-5.0 MMOL/L Chloride Level 94 L 98-107 MMOL/L Carbon Dioxide Level 33 H 21-32 MMOL/L Anion Gap 12 5-14 MMOL/L Blood Urea Nitrogen 21 H 7-18 MG/DL Creatinine 1.48 H 0.60-1.30 MG/DL Estimat Glomerular Filtration Rate 48 BUN/Creatinine Ratio 14 Glucose Level 122 H 70-105 MG/DL Lactic Acid Level 0.72 0.50-2.00 MMOL/L Calcium Level 9.2 8.5-10.1 MG/DL Corrected Calcium 9.6 8.5-10.1 MG/DL Total Bilirubin 0.3 0.1-1.0 MG/DL Aspartate Amino Transf (AST/SGOT) 19 5-34 U/L Alanine Aminotransferase (ALT/SGPT) 17 0-55 U/L Alkaline Phosphatase 131 40-136 U/L Troponin I 0.055 H <0.028 NG/ML B-Type Natriuretic Peptide 470.5 H <100.0 PG/ML Total Protein 8.1 6.4-8.2 GM/DL Albumin 3.5 3.2-4.5 GM/DL Urine Color YELLOW Urine Clarity CLEAR Urine pH 5 5-9 Urine Specific [place] 1.020 1.016-1.022 Urine Protein 4+ NEGATIVE Urine Glucose (UA) NEGATIVE NEGATIVE Urine Ketones NEGATIVE NEGATIVE Urine Nitrite NEGATIVE NEGATIVE Urine Bilirubin NEGATIVE NEGATIVE Urine Urobilinogen NORMAL NORMAL MG/DL Urine Leukocyte Esterase NEGATIVE NEGATIVE Urine RBC (Auto) 2+ H NEGATIVE Urine RBC 0-2 /HPF Urine WBC 5-10 H /HPF Urine Squamous Epithelial Cells 0-2 /HPF Urine Renal Epithelial Cells 0-2 /HPF Urine Crystals PRESENT H /LPF Urine Amorphous Sediment FEW JAYDON URATES H /LPF Urine Bacteria FEW H /HPF Urine Casts PRESENT /LPF Urine Hyaline Casts 25-50 H /LPF Urine Mucus NEGATIVE /LPF Urine Culture Indicated YES Micro Results Microbiology 07/07/19 Blood Culture - Preliminary, Resulted No growth 07/07/19 Blood Culture - Preliminary, Resulted No growth 07/07/19 Urine Culture - Final, Complete NO GROWTH My Orders Orders - MAGNUS VALDEZ APRN Bipap (Bilevel) Set Up (07/07/19 21:31) Cbc With Automated Diff (07/07/19 21:31) Comprehensive Metabolic Panel (07/07/19 21:31) Ua Culture If Indicated (07/07/19 21:31) Troponin I (07/07/19 21:31) Protime With Inr (07/07/19 21:31) Blood Culture (07/07/19 21:31) Arterial Blood Gas (07/07/19 21:31) Lactic Acid Analyzer (07/07/19 21:31) Ekg Tracing (07/07/19 21:31) Chest 1 View, Ap/Pa Only (07/07/19 21:31) Ed Iv/Invasive Line Start (07/07/19 21:31) Methylprednisolone Sod Succ (Solu-Medrol (07/07/19 21:45) Albuterol/Ipra Inhalation Soln (Duoneb I (07/07/19 21:45) Svn Small Volume Nebulizer (07/07/19 21:31) BNP (07/07/19 21:38) Furosemide Injection (Lasix Injection) (07/07/19 22:30) Urine Culture (07/07/19 23:11) O2 (07/08/19 04:41) Medications Given in ED Vital Signs/I&O 07/07/19 07/07/19 07/07/19 07/07/19 21:25 21:37 21:45 21:59 Temp 36.7 Pulse 58 63 56 Resp 24 26 B/P (MAP) 212/91 (131) 148/63 (91) Pulse Ox 88 90 99 O2 Delivery Nasal Cannula NIV Bilevel NIV Bilevel O2 Flow Rate 5.00 100.00 60.00 FiO2 60 07/07/19 23:49 Temp 36.7 Pulse 62 Resp 20 B/P (MAP) 114/31 (91) Pulse Ox 99 O2 Delivery NIV Bilevel Capillary Refill : Departure Communication (Admissions) We're on housewide diversion here, patient will require admission and this will require transfer to a different facility.. Spoke with [facility] big data analytics lead Dr. Guevara , very pleasant gentleman, accepted the patient. Patient at this time remains stable on BiPAP at settings 15/5 60% FiO2. Patient notified of need for transport due to no available beds here and is agreeable with this plan. Impression Primary Impression: Respiratory distress Additional Impressions: COPD exacerbation Morbid obesity CHF (congestive heart failure) Disposition: 02 XFER SHT-TRM HOSP Condition: Stable Departure-Patient Inst. Referrals: DANITA TEE DO (PCP/Family) Primary Care Physician MAGNUS VALDEZ APRN Jul 07, 2019 21:42 POS
[2019-07-07 21:45] LABS: ABG PCO2 88 MMHG (35-45); ABG PH 7.27 (7.37-7.43); ALLENS TEST YES-POS; INSPIRED O2 10L; PATIENT TEMP 36.7; VENTILATOR NO
[2019-07-07] MEDS ORDERED: methylPREDNISolone 125 MG (Solu-MEDROL) VIAL IVP ONE (21:45)
[2019-07-07] MEDS ORDERED: RT-ALBUTEROL/IPRATROPIUM 3 ML (DUONEB) VIAL INH ONE (21:45)
[2019-07-07 21:58] LABS: BASOPHILS % (AUTO) 0 % (0-10); EOSINOPHILS # (AUTO) 0.1 10^3/uL (0.0-0.3); EOSINOPHILS % (AUTO) 1 % (0-10); HEMATOCRIT 35 % (40-54); HEMOGLOBIN 10.2 G/DL (13.3-17.7); LYMPHOCYTES # (AUTO) 1.1 X 10^3 (1.0-4.0); LYMPHOCYTES % (AUTO) 14 % (12-44); MEAN CORPUSCULAR HEMOGLOBIN 28 PG (25-34); MEAN CORPUSCULAR HGB CONC 29 G/DL (32-36); MEAN CORPUSCULAR VOLUME 95 FL (80-99); MEAN PLATELET VOLUME 9.2 FL (7.4-10.4); MONOCYTES # (AUTO) 0.6 X 10^3 (0.0-1.0); MONOCYTES % (AUTO) 8 % (0-12); NEUTROPHILS # (AUTO) 5.8 X 10^3 (1.8-7.8); NEUTROPHILS % (AUTO) 76 % (42-75); PLATELET COUNT 193 10^3/uL (130-400); RED CELL DISTRIBUTION WIDTH 15.8 % (10.0-14.5); WHITE BLOOD COUNT 7.6 10^3/uL (4.3-11.0)
[2019-07-07 21:59] VITALS: BP 148/63
[2019-07-07 22:08] LABS: PROTHROMBIN TIME PATIENT 13.6 SEC (12.2-14.7)
[2019-07-07 22:17] LABS: ALBUMIN 3.5 GM/DL (3.2-4.5); BILIRUBIN,TOTAL 0.3 MG/DL (0.1-1.0); CALCIUM 9.2 MG/DL (8.5-10.1); CREATININE SERUM 1.48 MG/DL (0.60-1.30); TOTAL PROTEIN 8.1 GM/DL (6.4-8.2)
[2019-07-07] MEDS ORDERED: FUROSEMIDE 40 MG/4 ML INJ (LASIX) IVP ONE (22:30)
[2019-07-07 23:15] LABS: BILIRUBIN,URINE NEGATIVE (NEGATIVE); CLARITY,URINE CLEAR; COLOR,URINE YELLOW; GLUCOSE, URINE (UA) NEGATIVE (NEGATIVE); KETONES,URINE NEGATIVE (NEGATIVE); LEUKOCYTE ESTERASE ,URINE NEGATIVE (NEGATIVE); NITRITE,URINE NEGATIVE (NEGATIVE); PH,URINE 5 (5-9); PROTEIN,URINE 4+ (NEGATIVE)
[2019-07-07 23:26] LABS: RBC,URINE 0-2 /HPF
[2019-07-07 23:27] LABS: BACTERIA,URINE FEW /HPF
[2019-07-07 23:28] LABS: RENAL EPITHELIAL CELLS,URINE 0-2 /HPF; SQUAMOUS EPITHELIAL CELL,UR 0-2 /HPF
[2019-07-07 23:29] LABS: AMORPHOUS SEDIMENT,UR FEW AMOR URATES /LPF; HYALINE CASTS, URINE 25-50 /LPF
[2019-07-07 23:49] VITALS: BP 114/31
--- NOTE | 2019-07-08 06:57 | Diagnostic Imaging Report ---
INDICATION: Respiratory distress. COMPARISON STUDY: Chest from July 03, 2019. FINDINGS: Portable semiupright view of the chest demonstrates a stable right pleural effusion. The heart size appears a little larger. This could be due to technique. Some atelectasis is seen adjacent to the right pleural effusion. Vascularity appears normal. IMPRESSION: 1. Stable right pleural effusion and adjacent atelectasis. 2. Cardiomegaly is present. This may have slightly increased from the previous exam. This could also be due to differences in technique. Dictated by: Dictated on workstation # [id number]
== END 2019-07-07 23:49 | disposition short-term general hospital (02) ==
LOC: EDUNIT# 21:18 → ER 21:19
DX: J44.1 Chronic obstructive pulmonary disease with (acute) exacerbation (principal); E66.01 Morbid (severe) obesity due to excess calories; I11.0 Hypertensive heart disease with heart failure; I50.9 Heart failure, unspecified; E11.9 Type 2 diabetes mellitus without complications; I25.10 Atherosclerotic heart disease of native coronary artery without angina pectoris; F41.9 Anxiety disorder, unspecified; F32.9 Major depressive disorder, single episode, unspecified; E78.00 Pure hypercholesterolemia, unspecified; G47.30 Sleep apnea, unspecified; Z99.89 Dependence on other enabling machines and devices; Z87.09 Personal history of other diseases of the respiratory system; Z88.1 Allergy status to other antibiotic agents; Z79.82 Long term (current) use of aspirin; Z79.01 Long term (current) use of anticoagulants; Z87.891 Personal history of nicotine dependence; Z95.9 Presence of cardiac and vascular implant and graft, unspecified; Z82.49 Family history of ischemic heart disease and other diseases of the circulatory system; Z80.1 Family history of malignant neoplasm of trachea, bronchus and lung; Z68.42 Body mass index [BMI] 45.0-49.9, adult
CPT/HCPCS: 36415; 71045; 80053; 81000; 82805; 83605; 83880; 84484; 85025; 85610; 87040; 87088; 93005; 94660

== ENCOUNTER 2019-07-14 20:37 | Inpatient (IN) | payer MEDICARE ==
[~2019-07-14] VITALS: Ht 177.8 cm; Wt 151.9 kg
[2019-07-14] MEDS ORDERED: RT-ALBUTEROL/IPRATROPIUM 3 ML (DUONEB) VIAL ONE (20:41)
[2019-07-14] MEDS ORDERED: RT-ALBUTEROL/IPRATROPIUM 3 ML (DUONEB) VIAL INH ONE (20:45)
[2019-07-14] MEDS ORDERED: PIPERACILLIN SODIUM/TAZOBACTAM 4.5 GM in NS (IVPB) 100 ML IV ONE (20:45)
[2019-07-14 20:53] LABS: ABG BASE EXCESS 17.1 MMOL/L (-2.5-2.5); ABG OXYGEN SATURATION 95 % (94-100); ABG PO2 80 MMHG (79-93); ABG TCO2 47.5 MMOL/L (21.0-31.0); ALLENS TEST POSITIVE; INSPIRED O2 6; PATIENT TEMP 37.3; VENTILATOR NO
[2019-07-14 20:54] LABS: ABG PCO2 100 MMHG (35-45); ABG PH 7.27 (7.37-7.43)
--- NOTE | 2019-07-14 20:54 | ED Respiratory ---
General Chief Complaint: Respiratory Problems Stated Complaint: SOA Nursing Triage Note: Pt to room #5 via [facility] ems cart from home with c/o SOA. [facility] [employer] ems accessed 20g IV to lt a/c and report blood glucose 178. Ems placed pt on 6L via NC with ECO2 in the 60's. Labored breathing noted upon arrival. Pt reports to have been released from [facility] on 07/10/19 for similar symptoms. Reports non productive cough and fever. Source: patient, EMS Exam Limitations: no limitations History of Present Illness Date Seen by Provider: Jul 14, 2019 Time Seen by Provider: 20:30 Initial Comments Patient presents ER by EMS from home with chief complaint shortness of breath progressively worsening over the last day or so. He just got released from [facility] in [place] to 4 days ago where he had several polyps excised from his stomach on endoscopy. He is usually on Eliquis for his atrial fibrillation however this is being held for a few more days while his stomach heels. He says they had to give him 6 units of blood will he was there due to anemia. Has a history of CHF and COPD. He says the swelling in his legs as the worst it's been in a long time. He does wear a trilogy at night to sleep 20/7 cm water pressure. He feels hot and sweaty but no fevers or chills. He is not having any chest pain although he does have a history of coronary disease. He does have some pain in his back and his left shoulder and has been told that he needs a rotator cuff repair but cannot tolerate anesthesia. He has a large hematoma over his left leg that has been there for months and is known. He took a breathing treatment about 30-45 minutes ago. EMS reports that on 6 L his oxygen sats were staying in the low 90s. Allergies and Home Medications Allergies Coded Allergies: cephalexin (Verified Adverse Reaction, Unknown, unknown- tolerated Rocephin with no issue 06/2019, 06/29/19) Home Medications Albuterol Sulfate 2.5 Mg/3 Ml Vial.neb, 2.5 MG NEB Q4H PRN for SHORTNESS OF BREATH, (Reported) Albuterol Sulfate 18 Gm Hfa.aer.ad, 2 PUFF INH Q4H PRN for SHORTNESS OF BREATH, (Reported) Amiodarone HCl 200 Mg Tablet, 200 MG PO 0900, (Reported) Amlodipine Besylate 5 Mg Tablet, 5 MG PO DAILY, (Reported) Apixaban 5 Mg Tablet, 5 MG PO BID, (Reported) Aspirin 81 Mg Tablet.dr, 81 MG PO DAILY, (Reported) Atorvastatin Calcium 10 Mg Tablet, 10 MG PO DAILY, (Reported) Buspirone HCl 10 Mg Tablet, 10 MG PO BID, (Reported) Cholecalciferol (Vitamin D3) 1,000 Unit Capsule, 1,000 UNIT PO DAILY, (Reported) Cyanocobalamin/Cobamamide 1 Each Tab.subl, 5,000 MCG SL DAILY, (Reported) Duloxetine HCl 60 Mg Capsule.dr, 60 MG PO BID, (Reported) Furosemide 40 Mg Tablet, 40 MG PO BID, (Reported) Hydrocodone/Acetaminophen 1 Each Tablet, 1 TAB PO TID PRN for PAIN-MODERATE, (Reported) Lisinopril 10 Mg Tablet, 10 MG PO DAILY, (Reported) Metoprolol Succinate 25 Mg Tab.er.24h, 12.5 MG PO DAILY, (Reported) TAKES 1/2 (25MG) TABLET Multivitamin/Iron/Folic Acid 1 Each Tablet, 1 TAB PO DAILY, (Reported) Pantoprazole Sodium 40 Mg Tablet.dr, 40 MG PO DAILY, (Reported) Penicillin V Potassium 500 Mg Tablet, 500 MG PO QID Prescribed by: JACQUI HUBBARD on 07/04/19 1044 Pregabalin 150 Mg Capsule, 150 MG PO BID, (Reported) Roflumilast 500 Mcg Tablet, 500 MCG PO DAILY, (Reported) Sildenafil Citrate 20 Mg Tablet, 20 MG PO TID, (Reported) Vitamin A Palmitate 10,000 Unit Capsule, 10,000 UNIT PO DAILY, (Reported) Patient Home Medication List Home Medication List Reviewed: Yes Review of Systems Review of Systems Constitutional: No chills, No fever EENTM: No ear pain, No eye pain Respiratory: see HPI, cough; No phlegm; short of breath, wheezing Cardiovascular: No chest pain, No edema Gastrointestinal: No abdominal pain, No constipation, No nausea Genitourinary: No discharge, No dysuria Musculoskeletal: see HPI, back pain (upper back), joint pain All Other Systems Reviewed Negative Unless Noted: Yes Past Iccimpa-Svvimg-Jqykvj Hx Patient Social History Alcohol Use: Denies Use Recreational Drug Use: Yes Drug of Choice: THC Smoking Status: Former Smoker Type Used: Cigarettes Former Smoker, Quit: Sep 18, 2015 2nd Hand Smoke Exposure: No Recent Foreign Travel: No Contact w/Someone Who Travel: No Recent Infectious Disease Expo: No Recent Hopitalizations: Yes Immunizations Up To Date Tetanus Booster (TDap): Unknown Date of Pneumonia Vaccine: Sep 04, 2012 Date of Influenza Vaccine: Jun 10, 2019 Seasonal Allergies Seasonal Allergies: Yes Past Medical History Surgeries: Yes (FATTY TUMOR REMOVED FROM TOP OF HEAD. CARDIAC CATH X 2--NO INTERVENTION) Cardiac, Vasectomy Respiratory: Yes Pneumonia, Chronic Bronchitis, Sleep Apnea, COPD, Emphysema Currently Using CPAP: Yes (WAS WEARING AT HOME PER EMS) Currently Using BIPAP: Yes Cardiac: Yes Chronic Edema/Swelling, Coronary Artery Disease, High Cholesterol, Hypertension, Valvular Heart Disease Neurological: No Reproductive Disorders: No Sexually Transmitted Disease: No HIV/AIDS: No Genitourinary: Yes (RENAL INSUFFICIENCY) Renal Failure Gastrointestinal: Yes Colitis Musculoskeletal: Yes ("BULGING DISCS" ; CHRONIC "JERKING" OF MUSCLES; CHRONIC NARCOTIC USE) Degenerate Disk Disease, Osteoporosis, Arthritis, Back Injury, Chronic Back Pain, Fractures, Spasms Endocrine: Yes (MORBID OBESITY) Diabetes, Non-Insulin dep HEENT: Yes (NEAR SIGHTED) Loss of Vision: Bilateral Hearing Impairment: Denies Cancer: No Psychosocial: Yes Anxiety, Depression Integumentary: No Blood Disorders: No Adverse Reaction/Blood Tranf: No Family Medical History Arthritis 19 MOTHER Cardiovascular disease 19 MOTHER FH: lung cancer 19 FATHER Hypertension 19 MOTHER No Family History of: AIDS Abdominal aortic aneurysm [place]'s disease Alcoholism Alzheimer's disease Aphasia Asthma Cancer of mouth Cataracts Colon cancer Completed stroke Congenital disease Congenital heart disease Coronary thrombosis Cystic fibrosis Deafness or hearing loss Dementia Diabetes mellitus Drug abuse Dysphasia Fibrocystic disease of breast Gastroenteritis Glaucoma Headache disorder Hypercholesterolemia Infertility Kidney disease Myocardial infarction Neoplasm Not obtainable due to adoption Osteoporosis Parkinson's disease Prostate cancer Psychosocial problem Respiratory disorder Seizure disorder Severe allergy Thyroid disease Tuberculosis Visual disorder AAA, Heart Disease, Cancer, Hypertension Physical Exam Vital Signs - First Documented 07/14/19 20:38 Temp 37.3 Pulse 83 Resp 26 B/P (MAP) 207/87 (127) Pulse Ox 91 O2 Delivery Nasal Cannula O2 Flow Rate 6.00 Capillary Refill : Less Than 3 Seconds Height: 5'10.00" Weight: 348lbs. 6.0oz. 158.219507fk; 46.00 BMI Method:Stated General Appearance: WD/WN, moderate distress Eyes: Bilateral Eye Normal Inspection, Bilateral Eye PERRL, Bilateral Eye EOMI HEENT: PERRL/EOMI, pharynx normal Neck: non-tender, normal inspection Respiratory: respiratory distress (moderate increased work of breathing), decreased breath sounds, accessory muscle use (moderate to severe, tripoding, purse lip breathing) Cardiovascular: normal peripheral pulses, regular rate, rhythm Gastrointestinal: normal bowel sounds, non tender, soft Extremities: normal range of motion, pedal edema (2+ pitting), slow capillary refill Neurologic/Psychiatric: alert, oriented x 3, other (anxious affect) Skin: normal color, diaphoresis Focused Exam Lactate Level 07/14/19 20:48: Lactic Acid Level 0.62 Lactic Acid Level Laboratory Tests Test 07/14/19 20:48 Lactic Acid Level 0.62 MMOL/L (0.50-2.00) Procedures/Interventions Date of ETT Placement: Sep 22, 2018 Time of ETT Placement: 758 Progress/Results/Core Measures Suspected Sepsis Recent Fever Within 48 Hours: Yes Infection Criteria Present: Suspected New Infection New/Unexplained Altered Menta: No Sepsis Screen: Possible Sepsis Risk SIRS Temperature: Pulse: 83 Respiratory Rate: 26 Laboratory Tests 07/14/19 20:48: White Blood Count 11.0 Blood Pressure 207 /87 Mean: 127 07/14/19 20:48: Lactic Acid Level 0.62 Laboratory Tests 07/14/19 20:48: Creatinine 1.30, INR Comment 0.9, Platelet Count 183, Total Bilirubin 0.3 Results/Orders Lab Results Laboratory Tests Test 07/14/19 20:45 07/14/19 20:48 Range/Units Blood Gas Puncture Site RIGHT RADIAL Blood Gas Patient Temperature 37.3 Arterial Blood pH 7.27 *L 7.37-7.43 Arterial Blood Partial Pressure CO2 100 *H 35-45 MMHG Arterial Blood Partial Pressure O2 80 79-93 MMHG Arterial Blood HCO3 45 *H 23-27 MMOL/L Arterial Blood Total CO2 47.5 H 21.0-31.0 MMOL/L Arterial Blood Oxygen Saturation 95 94-100 % Arterial Blood Base Excess 17.1 H -2.5-2.5 MMOL/L Neil Test POSITIVE Blood Gas Ventilator Setting NO Blood Gas Inspired Oxygen 6 White Blood Count 11.0 4.3-11.0 10^3/uL Red Blood Count 3.34 L 4.35-5.85 10^6/uL Hemoglobin 9.4 L 13.3-17.7 G/DL Hematocrit 32 L 40-54 % Mean Corpuscular Volume 95 80-99 FL Mean Corpuscular Hemoglobin 28 25-34 PG Mean Corpuscular Hemoglobin Concent 30 L 32-36 G/DL Red Cell Distribution Width 16.8 H 10.0-14.5 % Platelet Count 183 130-400 10^3/uL Mean Platelet Volume 9.2 7.4-10.4 FL Neutrophils (%) (Auto) 78 H 42-75 % Lymphocytes (%) (Auto) 12 12-44 % Monocytes (%) (Auto) 8 0-12 % Eosinophils (%) (Auto) 2 0-10 % Basophils (%) (Auto) 0 0-10 % Neutrophils # (Auto) 8.6 H 1.8-7.8 X 10^3 Lymphocytes # (Auto) 1.3 1.0-4.0 X 10^3 Monocytes # (Auto) 0.9 0.0-1.0 X 10^3 Eosinophils # (Auto) 0.2 0.0-0.3 10^3/uL Basophils # (Auto) 0.0 0.0-0.1 10^3/uL Prothrombin Time 12.5 12.2-14.7 SEC INR Comment 0.9 0.8-1.4 Activated Partial Thromboplast Time 30 24-35 SEC Sodium Level 145 135-145 MMOL/L Potassium Level 4.9 3.6-5.0 MMOL/L Chloride Level 96 L 98-107 MMOL/L Carbon Dioxide Level 37 H 21-32 MMOL/L Anion Gap 12 5-14 MMOL/L Blood Urea Nitrogen 24 H 7-18 MG/DL Creatinine 1.30 0.60-1.30 MG/DL Estimat Glomerular Filtration Rate 56 BUN/Creatinine Ratio 18 Glucose Level 138 H 70-105 MG/DL Lactic Acid Level 0.62 0.50-2.00 MMOL/L Calcium Level 8.9 8.5-10.1 MG/DL Corrected Calcium 9.4 8.5-10.1 MG/DL Total Bilirubin 0.3 0.1-1.0 MG/DL Aspartate Amino Transf (AST/SGOT) 28 5-34 U/L Alanine Aminotransferase (ALT/SGPT) 32 0-55 U/L Alkaline Phosphatase 92 40-136 U/L Troponin I 0.042 H <0.028 NG/ML C-Reactive Protein High Sensitivity 1.30 H 0.00-0.50 MG/DL B-Type Natriuretic Peptide 464.4 H <100.0 PG/ML Total Protein 7.1 6.4-8.2 GM/DL Albumin 3.4 3.2-4.5 GM/DL Micro Results Microbiology 07/14/19 Influenza Types A,B Antigen (JENNY) - Final, Complete My Orders Orders - HAILEE HARRIS Albuterol/Ipra Inhalation Soln (Duoneb I (07/14/19 20:41) Albuterol/Ipra Inhalation Soln (Duoneb I (07/14/19 20:45) Cbc With Automated Diff (07/14/19 20:44) Comprehensive Metabolic Panel (07/14/19 20:44) Blood Culture (07/14/19 20:44) Sputum Culture (07/14/19 20:44) Urinalysis (07/14/19 20:44) Urine Culture (07/14/19 20:44) Protime With Inr (07/14/19 20:44) Partial Thromboplastin Time (07/14/19 20:44) Chest 1 View, Ap/Pa Only (07/14/19 20:44) Ed Iv/Invasive Line Start (07/14/19 20:44) Ed Iv/Invasive Line Start (07/14/19 20:44) Ekg Tracing (07/14/19 20:44) Troponin I (07/14/19 20:44) Vital Signs Adult Sepsis Patie Q15M (07/14/19 20:44) O2 (07/14/19 20:44) Remove Rings In Anticipation O (07/14/19 20:44) Lactic Acid Analyzer (07/14/19 20:44) Influenza A And B Antigens (07/14/19:44) Piperacillin Sodium/Tazobactam (Zosyn Vi (07/14/19 20:45) Svn Small Volume Nebulizer (07/14/19 20:44) Hs C Reactive Protein (07/14/19 20:44) BNP (07/14/19 20:44) Bipap (Bilevel) Set Up (07/14/19 20:44) Arterial Blood Gas (07/14/19 20:45) Arterial Blood Gas (07/14/19 21:30) Medications Given in ED Current Medications Medications Dose Ordered Sig/Sebastian Route Start Time Stop Time Status Last Admin Dose Admin Piperacillin Sod/ Tazobactam Sod 4.5 gm/Sodium Chloride 100 ml @ 200 mls/hr ONCE ONCE IV 07/14/19 20:45 07/14/19 21:14 DC 07/14/19 21:51 200 MLS/HR Vital Signs/I&O 07/14/19 07/14/19 20:38 20:38 Temp 37.3 Pulse 83 Resp 26 B/P (MAP) 207/87 (127) Pulse Ox 91 91 O2 Delivery Nasal Cannula Nasal Cannula O2 Flow Rate 6.00 6.00 Capillary Refill : Less Than 3 Seconds Blood Pressure Mean: 127 POS Progress Note #1: Time: 20:54 Progress Note Plan to initiate a DuoNeb put him on BiPAP 20 FiO2 of 40% to start keeping a sats between 89-94%. Obtain an ABG labs septic workup will hold off any IV fluids. Obtain a BNP and chest x-ray. Suspected the recent blood transfusions and IV fluids from the hospital may have pushed his heart into volume overload. He takes Lasix 40 mg daily. EKG and troponin but no coronary symptoms. Progress Note #2: Time: 21:03 Progress Note Patient's ABG demonstrates moderate to severe acidosis with respiratory origin. Incompetent compensation. Despite this and wound VAC in the room the patient's tolerating his BiPAP very well and is much more alert, talkative and is no longer tripoding or using very much accessory muscles to breathe. Plan to give him a trial of the BiPAP before committing to an intubation. Plan on repeating the ABG in about 30-60 minutes. Repeat breath sounds after the DuoNeb are just diminished without any wheezing. Progress Note #3: Time: 21:53 Progress Note Patient's chest x-ray does have some vascular congestion and mild pulmonary edema however the potassium is not low so I suspect he may fit from some IV Lasix as well as his BiPAP. ECG Initial ECG Impression Date: Jul 14, 2019 Initial ECG Impression Time: 20:58 Initial ECG Rate: 72 Initial ECG Rhythm: Normal Sinus Initial ECG Intervals: QT (478) Initial ECG Impression: Normal, Nonspecific Changes Comment No clinically relevant ST elevation or depression. Borderline prolonged QT interval. Incomplete right bundle-branch block. Diagnostic Imaging Diagonstic Imaging: Xray Plain Films/CT/US/NM/MRI: chest (1v) Comments [facility]. POS [place], [place] POS NAME: KEMAR JERONIMO [facility] REC#: [id number] PT STATUS: REG ER : 1955 PHYSICIAN: HAILEE HARRIS MD ADMIT DATE: 07/14/19/ER Draft POSDate of Exam:07/14/19 CHEST 1 VIEW, AP/PA ONLY Patient History: Shortness of breath. Technique: Single frontal view of the chest Comparison: 07/07/2019 FINDINGS: Redemonstration of cardiomegaly with central pulmonary vascular congestion and pulmonary edema. Slight increase in a small to moderate right pleural effusion. Small left pleural effusion is unchanged. No pneumothorax. IMPRESSION: 1. Cardiomegaly with central pulmonary vascular congestion and pulmonary edema. 2. Slight increase in the small to moderate right and small left pleural effusions. Dictated on workstation # [id number] Dict: 07/14/[id number] Trans: 07/14/192137 [facility] [id number] Interpreted by: PING CREWS DO Electronically signed by: Reviewed: Reviewed by Me Departure Communication (Admissions) Time/Spoke to Admitting Phy: 22:00 Discussed case lab imaging findings with Dr. Cm she agrees to admit the patient to the unit. Impression Primary Impression: COPD exacerbation Additional Impressions: CHF (congestive heart failure) Qualified Codes: I50.9 - Heart failure, unspecified Acute respiratory failure with hypoxia and hypercarbia Disposition: ADMITTED INPATIENT Condition: Critical Admissions Decision to Admit Reason: Admit from ER (General) Decision to Admit/Date: Jul 14, 2019 Time/Decision to Admit Time: 21:30 Departure-Patient Inst. Referrals: DANITA TEE DO (PCP/Family) Primary Care Physician HAILEE HARRIS Jul 14, 2019 20:54 POS
[2019-07-14 20:59] LABS: BASOPHILS % (AUTO) 0 % (0-10); EOSINOPHILS # (AUTO) 0.2 10^3/uL (0.0-0.3); EOSINOPHILS % (AUTO) 2 % (0-10); HEMATOCRIT 32 % (40-54); HEMOGLOBIN 9.4 G/DL (13.3-17.7); LYMPHOCYTES # (AUTO) 1.3 X 10^3 (1.0-4.0); LYMPHOCYTES % (AUTO) 12 % (12-44); MEAN CORPUSCULAR HEMOGLOBIN 28 PG (25-34); MEAN CORPUSCULAR HGB CONC 30 G/DL (32-36); MEAN CORPUSCULAR VOLUME 95 FL (80-99); MEAN PLATELET VOLUME 9.2 FL (7.4-10.4); MONOCYTES # (AUTO) 0.9 X 10^3 (0.0-1.0); MONOCYTES % (AUTO) 8 % (0-12); NEUTROPHILS # (AUTO) 8.6 X 10^3 (1.8-7.8); NEUTROPHILS % (AUTO) 78 % (42-75); PLATELET COUNT 183 10^3/uL (130-400); RED CELL DISTRIBUTION WIDTH 16.8 % (10.0-14.5)
[2019-07-14 21:22] LABS: INR 0.9 (0.8-1.4); PROTHROMBIN TIME PATIENT 12.5 SEC (12.2-14.7)
[2019-07-14 21:31] LABS: ALBUMIN 3.4 GM/DL (3.2-4.5); BILIRUBIN,TOTAL 0.3 MG/DL (0.1-1.0); CALCIUM 8.9 MG/DL (8.5-10.1); CREATININE SERUM 1.3 MG/DL (0.60-1.30); POTASSIUM 4.9 MMOL/L (3.6-5.0); TOTAL PROTEIN 7.1 GM/DL (6.4-8.2)
--- NOTE | 2019-07-14 21:38 | Diagnostic Imaging Report ---
Patient History: Shortness of breath. Technique: Single frontal view of the chest Comparison: 07/07/2019 FINDINGS: Redemonstration of cardiomegaly with central pulmonary vascular congestion and pulmonary edema. Slight increase in a small to moderate right pleural effusion. Small left pleural effusion is unchanged. No pneumothorax. IMPRESSION: 1. Cardiomegaly with central pulmonary vascular congestion and pulmonary edema. 2. Slight increase in the small to moderate right and small left pleural effusions. Dictated by: Dictated on workstation # [id number]
[2019-07-14 22:29] LABS: ABG BASE EXCESS 16.8 MMOL/L (-2.5-2.5); ABG OXYGEN SATURATION 98 % (94-100); ABG PO2 103 MMHG (79-93); ABG TCO2 46.4 MMOL/L (21.0-31.0); ALLENS TEST POSITIVE
[2019-07-14 22:30] LABS: INSPIRED O2 45% BIPAP; PATIENT TEMP 36.9; VENTILATOR YES
[2019-07-14 22:31] LABS: ABG PCO2 88 MMHG (35-45); ABG PH 7.32 (7.37-7.43)
[2019-07-14 22:45] VITALS: BP 184/71
[2019-07-14 23:00] VITALS: BP 199/78
[2019-07-14] MEDS ORDERED: hydrALAZINE (APESOLINE) 20 MG/ML VIAL IV PRN (23:45)
[2019-07-15] VITALS (21 sets, daily range): BP systolic 139–189; BP diastolic 56–75
[2019-07-15] MEDS: HYDROcodone/APAP 5 MG/325 MG (LORTAB) TAB PO PRN ×2 (03:12→12:25)
--- NOTE | 2019-07-15 03:23 | Pulmonary Consultation ---
MARY SEGURA MED STUDENT 07/15/19 0323: History of Present Illness History of Present Illness Date of Consultation 07/15/19 03:17 Time Seen by Provider: 03:18 Date of Admission 07/14/19 Reason for Visit: Dyspnea History of Present Illness Patient is a 63 year old male with a past medical history of Afib on Eliquis (currently being held), COPD on 5L O2 an Bipap overnight at home, CHF, CAD, HTN, hyperlipidemia, who presented to the ED via EMS from home due to persistent shortness of breath. He has experienced multiple hospital visits over the past few weeks. He reports that he was discharged from [facility] recently, but he cannot recall if it was yesterday or the day before. Records show admission at [facility] from 07/08-07/12. Patient states that before being admitted to [facility] he was admitted here for shortness of breath for over a week. He states that during admission here at [facility] he received 5 to 6 units of blood having multiple polyps removed from his stomach here. He returned here on the day of his discharge, presumably 07/08/19, and he was diverted to [facility]. His Eliquis is being held for a couple of days due to this procedure. He has been experiencing increasing lower extremity edema since initial hospitalization. He was reported to be satting in the low 90s on 6L of oxygen by EMS. Records indicate that the patient was admitted at this hospital from 06/22/19- 07/04/19 for strep pneumonia and CHF. He experienced anemia due to GI bleed and multiple colonic polyps removed by surgery. He received multiple blood transfusions during this stay. He was hospitalized at [facility] from 07/08/11 where he presumably had another polyp removed that was unable to be removed during his stay here. Patient received Duoneb in ED Allergies and Home Medications Allergies Coded Allergies: cephalexin (Verified Adverse Reaction, Unknown, unknown- tolerated Rocephin with no issue 06/2019, 06/29/19) Home Medications Albuterol Sulfate 2.5 Mg/3 Ml Vial.neb, 2.5 MG NEB Q4H PRN for SHORTNESS OF BREATH, (Reported) Albuterol Sulfate 18 Gm Hfa.aer.ad, 2 PUFF INH Q4H PRN for SHORTNESS OF BREATH, (Reported) Amiodarone HCl 200 Mg Tablet, 200 MG PO DAILY, (Reported) Amlodipine Besylate 5 Mg Tablet, 5 MG PO DAILY, (Reported) Apixaban 5 Mg Tablet, 5 MG PO BID, (Reported) Aspirin 81 Mg Tablet.dr, 81 MG PO DAILY, (Reported) Atorvastatin Calcium 10 Mg Tablet, 10 MG PO DAILY, (Reported) Buspirone HCl 10 Mg Tablet, 10 MG PO BID, (Reported) Cholecalciferol (Vitamin D3) 1,000 Unit Capsule, 1,000 UNIT PO DAILY, (Reported) Cyanocobalamin/Cobamamide 1 Each Tab.subl, 5,000 MCG SL DAILY, (Reported) Escitalopram Oxalate 20 Mg Tablet, 20 MG PO DAILY Prescribed by: MAGDA CHAPPELL on 07/21/19 1229 Escitalopram Oxalate 20 Mg Tablet, 20 MG PO DAILY, (Reported) Fluticasone/Vilanterol 1 Each Blst.w.dev, 1 PUFF INH 0600, (Reported) Furosemide 40 Mg Tablet, 60 MG PO BID, (Reported) TAKES 1 & 1/2 (40MG) TABLET Hydrocodone/Acetaminophen 1 Each Tablet, 1 TAB PO TID PRN for PAIN-MODERATE, ( Reported) Ipratropium/Albuterol Sulfate 3 Ml Ampul.neb, 3 ML IH Q4H PRN for SHORTNESS OF BREATH, (Reported) Linezolid 600 Mg Tablet, 600 MG PO BID, (Reported) 7 DAY SUPPLY FILLED 07-30-19 Lisinopril 10 Mg Tablet, 10 MG PO DAILY, (Reported) Metoprolol Succinate 25 Mg Tab.er.24h, 12.5 MG PO DAILY, (Reported) TAKES 1/2 (25MG) TABLET Multivitamin/Iron/Folic Acid 1 Each Tablet, 1 TAB PO DAILY, (Reported) Pantoprazole Sodium 40 Mg Tablet.dr, 40 MG PO DAILY, (Reported) Potassium Chloride 10 Meq Tablet.er, 10 MEQ PO DAILY, (Reported) Prednisone 10 Mg Tab, PO UD, (Reported) TAKE 4 TABLETS ONCE A DAY FOR 3 DAYS THEN TAKE 2 TABLETS ONCE A DAY FOR 3 DAYS THEN TAKE 1 TABLET ONCE A DAY FOR 3 DAYS #21 TABLETS FILLED 07-30-19 Pregabalin 150 Mg Capsule, 150 MG PO BID, (Reported) LAST FILLED 06-14-19 #60 Roflumilast 500 Mcg Tablet, 500 MCG PO DAILY, (Reported) Sildenafil Citrate 20 Mg Tablet, 20 MG PO TID, (Reported) Past Ghsqnqn-Mrnuhn-Zjwpti Hx Patient Social History Alcohol Use: Denies Use Recreational Drug Use: Yes Drug of Choice: THC Smoking Status: Former Smoker Type Used: Cigarettes Former Smoker, Quit: Sep 18, 2015 2nd Hand Smoke Exposure: No Recent Foreign Travel: No Contact w/Someone Who Travel: No Recent Infectious Disease Expo: No Recent Hopitalizations: Yes Physical Abuse: No Sexual Abuse: No Immunizations Up To Date Tetanus Booster (TDap): Unknown Date of Pneumonia Vaccine: Sep 04, 2012 Date of Influenza Vaccine: Jun 10, 2019 Seasonal Allergies Seasonal Allergies: Yes Past Medical History Surgeries: Yes (FATTY TUMOR REMOVED FROM TOP OF HEAD. CARDIAC CATH X 2--NO INTERVENTION) Cardiac, Vasectomy Respiratory: Yes Pneumonia, Chronic Bronchitis, Sleep Apnea, COPD, Emphysema Currently Using CPAP: Yes (WAS WEARING AT HOME PER EMS) Currently Using BIPAP: Yes Cardiac: Yes Chronic Edema/Swelling, Coronary Artery Disease, High Cholesterol, Hypertension, Valvular Heart Disease Neurological: No Reproductive Disorders: No Sexually Transmitted Disease: No HIV/AIDS: No Genitourinary: Yes (RENAL INSUFFICIENCY) Renal Failure Gastrointestinal: Yes Colitis Musculoskeletal: Yes ("BULGING DISCS" ; CHRONIC "JERKING" OF MUSCLES; CHRONIC NARCOTIC USE) Degenerate Disk Disease, Osteoporosis, Arthritis, Back Injury, Chronic Back Pain, Fractures, Spasms Endocrine: Yes (MORBID OBESITY) Diabetes, Non-Insulin dep HEENT: Yes (NEAR SIGHTED) Loss of Vision: Bilateral Hearing Impairment: Denies Cancer: No Psychosocial: Yes Anxiety, Depression Integumentary: No Blood Disorders: No Adverse Reaction/Blood Tranf: No Family Medical History Arthritis 19 MOTHER Cardiovascular disease 19 MOTHER FH: lung cancer 19 FATHER Hypertension 19 MOTHER No Family History of: AIDS Abdominal aortic aneurysm Haines's disease Alcoholism Alzheimer's disease Aphasia Asthma Cancer of mouth Cataracts Colon cancer Completed stroke Congenital disease Congenital heart disease Coronary thrombosis Cystic fibrosis Deafness or hearing loss Dementia Diabetes mellitus Drug abuse Dysphasia Fibrocystic disease of breast Gastroenteritis Glaucoma Headache disorder Hypercholesterolemia Infertility Kidney disease Myocardial infarction Neoplasm Not obtainable due to adoption Osteoporosis Parkinson's disease Prostate cancer Psychosocial problem Respiratory disorder Seizure disorder Severe allergy Thyroid disease Tuberculosis Visual disorder AAA, Heart Disease, Cancer, Hypertension Sepsis Event Evaluation Height, Weight, BMI Height: 5'10.00" Weight: 348lbs. 6.0oz. 158.590390lp; 46.00 BMI Method:Stated Exam Exam Vital Signs Date Time Temp Pulse Resp B/P (MAP) Pulse Ox O2 Delivery O2 Flow Rate FiO2 07/15/19 02:09 NIV Bilevel 30.00 07/15/19 02:00 65 14 163/61 (95) 98 NIV Bilevel 35.00 07/15/19 01:48 65 19 98 35.00 07/15/19 01:00 75 15 189/75 (113) 97 NIV Bilevel 35.00 07/15/19 00:58 67 07/15/19 00:27 NIV Bilevel 35.00 07/15/19 00:00 100 NIV Bilevel 35 07/15/19 00:00 60 20 175/59 (97) 100 07/14/19 23:00 100 NIV Bilevel 45 07/14/19 23:00 67 20 199/78 (118) 99 07/14/19 22:45 69 07/14/19 22:45 36.6 69 18 184/71 (108) 100 NIV Bilevel 45.00 07/14/19 22:29 37.3 71 18 171/70 (127) 99 NIV Bilevel 10.00 07/14/19 21:09 37.3 83 26 207/87 91 Nasal Cannula 6.00 07/14/19 20:39 95 45.00 07/14/19 20:39 95 Nasal Cannula 6.00 07/14/19 20:38 37.3 83 26 207/87 (127) 91 Nasal Cannula 6.00 07/14/19 20:38 91 Nasal Cannula 6.00 I & O 07/15/19 07:00 Intake Total 100 ml Output Total 350 ml Balance -250 ml Height & Weight Height: 5'10.00" Weight: 348lbs. 6.0oz. 158.408529wn; 46.00 BMI Method:Stated General Appearance: WD/WN, Chronically ill, Obese HEENT: PERRL/EOMI Neck: Full Range of Motion, Normal Inspection, Supple Respiratory: Chest Non Tender, Crackles, Decreased Breath Sounds Cardiovascular: Regular Rate, Rhythm Capillary Refill: Less Than 3 Seconds Peripheral Pulses: 2+ Radial Pulses (R), 2+ Radial Pulses (L) Gastrointestinal: normal bowel sounds, non tender, soft Extremity: Pedal Edema Neurologic/Psychiatric: Alert, Oriented x3, No Motor/Sensory Deficits, Normal Mood/Affect Skin: Normal Color, Warm/Dry Lymphatic: No Adenopathy Results Lab Laboratory Tests 07/14/19 20:48 Radiology Chest Xray 07/14/19 IMPRESSION: 1. Cardiomegaly with central pulmonary vascular congestion and pulmonary edema. 2. Slight increase in the small to moderate right and small left pleural effusions. Assessment/Plan Assessment/Plan Acute respiratory failure with hypoxia -On BiPAP 30% O2 -Duoneb RT Q4hr -Proventil Q4PRN COPD exacerbation -Roflumilast 500mcg CHF -Elevated BNP 464.4 -06/2016 LVEF 60-65% -Lasix 80mg -Monitor electrolytes -monitor I&Os HTN -Lisinopril 10mg daily -Hydralazine 10mg when SBP >160 HLD -Atorvastatin 10mg daily Recent Hx of GI bleed -Monitor H&H JHON FORREST DO 07/15/19 0421: History of Present Illness History of Present Illness Time Seen by Provider: 04:16 Allergies and Home Medications Allergies Coded Allergies: cephalexin (Verified Adverse Reaction, Unknown, unknown- tolerated Rocephin with no issue 06/2019, 06/29/19) Home Medications Albuterol Sulfate 2.5 Mg/3 Ml Vial.neb, 2.5 MG NEB Q4H PRN for SHORTNESS OF BREATH, (Reported) Albuterol Sulfate 18 Gm Hfa.aer.ad, 2 PUFF INH Q4H PRN for SHORTNESS OF BREATH, (Reported) Amiodarone HCl 200 Mg Tablet, 200 MG PO DAILY, (Reported) Amlodipine Besylate 5 Mg Tablet, 5 MG PO DAILY, (Reported) Apixaban 5 Mg Tablet, 5 MG PO BID, (Reported) Aspirin 81 Mg Tablet.dr, 81 MG PO DAILY, (Reported) Atorvastatin Calcium 10 Mg Tablet, 10 MG PO DAILY, (Reported) Buspirone HCl 10 Mg Tablet, 10 MG PO BID, (Reported) Cholecalciferol (Vitamin D3) 1,000 Unit Capsule, 1,000 UNIT PO DAILY, (Reported) Cyanocobalamin/Cobamamide 1 Each Tab.subl, 5,000 MCG SL DAILY, (Reported) Escitalopram Oxalate 20 Mg Tablet, 20 MG PO DAILY Prescribed by: MAGDA CHAPPELL on 07/21/19 1229 Escitalopram Oxalate 20 Mg Tablet, 20 MG PO DAILY, (Reported) Fluticasone/Vilanterol 1 Each Blst.w.dev, 1 PUFF INH 0600, (Reported) Furosemide 40 Mg Tablet, 60 MG PO BID, (Reported) TAKES 1 & 1/2 (40MG) TABLET Hydrocodone/Acetaminophen 1 Each Tablet, 1 TAB PO TID PRN for PAIN-MODERATE, (Reported) Ipratropium/Albuterol Sulfate 3 Ml Ampul.neb, 3 ML IH Q4H PRN for SHORTNESS OF BREATH, (Reported) Linezolid 600 Mg Tablet, 600 MG PO BID, (Reported) 7 DAY SUPPLY FILLED 07-30-19 Lisinopril 10 Mg Tablet, 10 MG PO DAILY, (Reported) Metoprolol Succinate 25 Mg Tab.er.24h, 12.5 MG PO DAILY, (Reported) TAKES 1/2 (25MG) TABLET Multivitamin/Iron/Folic Acid 1 Each Tablet, 1 TAB PO DAILY, (Reported) Pantoprazole Sodium 40 Mg Tablet.dr, 40 MG PO DAILY, (Reported) Potassium Chloride 10 Meq Tablet.er, 10 MEQ PO DAILY, (Reported) Prednisone 10 Mg Tab, PO UD, (Reported) TAKE 4 TABLETS ONCE A DAY FOR 3 DAYS THEN TAKE 2 TABLETS ONCE A DAY FOR 3 DAYS THEN TAKE 1 TABLET ONCE A DAY FOR 3 DAYS #21 TABLETS FILLED 07-30-19 Pregabalin 150 Mg Capsule, 150 MG PO BID, (Reported) LAST FILLED 06-14-19 #60 Roflumilast 500 Mcg Tablet, 500 MCG PO DAILY, (Reported) Sildenafil Citrate 20 Mg Tablet, 20 MG PO TID, (Reported) Past Xgndhxt-Aqblho-Yyxfnu Hx Family Medical History Arthritis 19 MOTHER Cardiovascular disease 19 MOTHER FH: lung cancer 19 FATHER Hypertension 19 MOTHER No Family History of: AIDS Abdominal aortic aneurysm Haines's disease Alcoholism Alzheimer's disease Aphasia Asthma Cancer of mouth Cataracts Colon cancer Completed stroke Congenital disease Congenital heart disease Coronary thrombosis Cystic fibrosis Deafness or hearing loss Dementia Diabetes mellitus Drug abuse Dysphasia Fibrocystic disease of breast Gastroenteritis Glaucoma Headache disorder Hypercholesterolemia Infertility Kidney disease Myocardial infarction Neoplasm Not obtainable due to adoption Osteoporosis Parkinson's disease Prostate cancer Psychosocial problem Respiratory disorder Seizure disorder Severe allergy Thyroid disease Tuberculosis Visual disorder Review of Systems Time Seen by Provider: 04:16 Exam Exam General Appearance: WD/WN, Chronically ill, Obese HEENT: PERRL/EOMI Neck: Full Range of Motion, Normal Inspection, Supple Respiratory: Chest Non Tender, Crackles, Decreased Breath Sounds Cardiovascular: Regular Rate, Rhythm Gastrointestinal: normal bowel sounds, non tender, soft Extremity: Pedal Edema Neurologic/Psychiatric: Alert, Oriented x3, No Motor/Sensory Deficits, Normal Mood/Affect Skin: Normal Color, Warm/Dry Lymphatic: No Adenopathy Assessment/Plan Assessment/Plan Acute on chronic respiratory failure with hypoxia -Recurrent hospitalizations -On BiPAP 30% O2 -Obtain records from recent [place] hospitalization -Duoneb RT Q4hr -Proventil Q4PRN -Pt has home vent to mask already COPD exacerbation -Roflumilast 500mcg -Duonebs CHF -Elevated BNP 464.4 -06/2016 LVEF 60-65% -Will give bumex 2mg IV X 1 -Monitor electrolytes -monitor I&Os AFib RVR -Currently Eliquis is on hold secondary to GIB HTN -Lisinopril 10mg daily -Hydralazine 10mg when SBP >160 HLD -Atorvastatin 10mg daily Recent Hx of GI bleed -Monitor H&H Supervisory-Addendum Brief Verification & Attestation Participated in pt care: history Personally performed: exam, history Care discussed with: Medical Student Procedures: n/a Verification and Attestation of Medical Student E/M Service A medical student performed and documented this service in my presence. I reviewed and verified all information documented by the medical student and made modifications to such information, when appropriate. I personally performed the physical exam and medical decision making. Jhon Forrest, Aug 06, 2019,12:47 MARY SEGURA MED STUDENT Jul 15, 2019 03:23 JHON MATSON DO Jul 15, 2019 04:21 POS
[2019-07-15 03:40] LABS: ABG BASE EXCESS 18.9 MMOL/L (-2.5-2.5); ABG OXYGEN SATURATION 95 % (94-100); ABG PCO2 69 MMHG (35-45); ABG PH 7.42 (7.37-7.43); ABG PO2 65 MMHG (79-93)
[2019-07-15 03:47] LABS: ALLENS TEST POSITIVE; INSPIRED O2 30% BIPAP; PATIENT TEMP 36.1; VENTILATOR NO
[2019-07-15 03:56] LABS: BASOPHILS % (AUTO) 0 % (0-10); EOSINOPHILS # (AUTO) 0.2 10^3/uL (0.0-0.3); EOSINOPHILS % (AUTO) 2 % (0-10); HEMATOCRIT 29 % (40-54); HEMOGLOBIN 8.4 G/DL (13.3-17.7); LYMPHOCYTES # (AUTO) 1.6 X 10^3 (1.0-4.0); LYMPHOCYTES % (AUTO) 19 % (12-44); MEAN CORPUSCULAR HEMOGLOBIN 27 PG (25-34); MEAN CORPUSCULAR HGB CONC 29 G/DL (32-36); MEAN CORPUSCULAR VOLUME 95 FL (80-99); MEAN PLATELET VOLUME 9.7 FL (7.4-10.4); MONOCYTES # (AUTO) 0.8 X 10^3 (0.0-1.0); MONOCYTES % (AUTO) 9 % (0-12); NEUTROPHILS % (AUTO) 70 % (42-75); PLATELET COUNT 159 10^3/uL (130-400); RED CELL DISTRIBUTION WIDTH 16.7 % (10.0-14.5); WHITE BLOOD COUNT 8.6 10^3/uL (4.3-11.0)
[2019-07-15 04:23] LABS: BUN/CREATININE RATIO 22; CALCIUM 8.7 MG/DL (8.5-10.1); CARBON DIOXIDE 39 MMOL/L (21-32); CHLORIDE 98 MMOL/L (98-107); CREATININE SERUM 1.09 MG/DL (0.60-1.30); GFR ESTIMATED > 60; GLUCOSE 75 MG/DL (70-105); MAGNESIUM 1.8 MG/DL (1.6-2.4); POTASSIUM 4.1 MMOL/L (3.6-5.0); SODIUM 145 MMOL/L (135-145)
[2019-07-15] MEDS ORDERED: BUMETANIDE 1 MG/4 ML (BUMEX) VIAL IV ONE (04:30)
[2019-07-15] MEDS ORDERED: morphine INJ 4 MG/ML 1 ML (VIAL/SYRINGE) ONE (04:38)
[2019-07-15] MEDS ORDERED: morphine INJ 4 MG/ML 1 ML (VIAL/SYRINGE) IVP PRN (04:45)
[2019-07-15] MEDS ORDERED: BUMETANIDE 1 MG/4 ML (BUMEX) VIAL ONE (05:33)
[2019-07-15] MEDS ORDERED: IOHEXOL 350 MG/ML 100 ML (OMNIPAQUE 350) VIAL IV ONE (05:45)
[2019-07-15] MEDS ORDERED: HOLD METFORMIN - RECEIVED CONTRAST 20 ML VIAL IV SCH (05:45)
[2019-07-15] MEDS ORDERED: NS 100 ML (IVPB) BAG IV ONE (05:45)
[2019-07-15] MEDS ORDERED: MAGNESIUM 1 GM/100 ML IVPB 100 ML IV SCH (06:00)
[2019-07-15] MEDS ORDERED: KCL 20 MEQ TAB (K-DUR) PO SCH (06:00)
[2019-07-15] MEDS ORDERED: POTASSIUM CL 10MEQ/50ML IVPB 50 ML IV SCH (06:00)
[2019-07-15] MEDS ORDERED: FUROSEMIDE 40 MG/4 ML INJ (LASIX) IV SCH (07:00)
--- NOTE | 2019-07-15 07:11 | Diagnostic Imaging Report ---
PROCEDURE: CT angiography of the chest with contrast. TECHNIQUE: Multiple contiguous axial images were obtained through the chest after uneventful bolus administration of intravenous contrast. 3D reconstructed CTA MIP acquisitions were also performed. Auto Exposure Controls were utilized during the CT exam to meet ALARA standards for radiation dose reduction. INDICATION: Shortness of breath, chest pain. COMPARISON: 07/01/2019 FINDINGS: No significant adenopathy within the chest. No aneurysmal dilatation of the thoracic aorta. The heart is enlarged. Small pericardial effusion, increased since the prior examination. Tiny left pleural effusion, having developed since the prior examination. Moderate-sized right pleural effusion, increased since the prior examination. This is associated with increasing consolidation and density within the right lower lobe. Previously noted peripheral patchy opacities within the bilateral lungs, particularly within the left lung have improved and nearly resolved. No additional new focal patchy pulmonary opacity. No pneumothorax. The central pulmonary arteries are dilated with tortuosity of the more distal pulmonary arteries. Bilateral gynecomastia. Evaluation for pulmonary emboli is slightly limited secondary to respiratory motion and patient body habitus. No significant central pulmonary embolus. Evaluation of subsegmental pulmonary emboli is severely limited. Hypodensities within bilateral kidneys are again noted. Fat stranding about the bilateral kidneys, left greater than right, is again noted appearing similar to the prior examination. Scattered osseous degenerative changes without acute osseous abnormality. Chronic fracture deformities within multiple right-sided ribs are again identified. IMPRESSION: No significant pulmonary embolus within the limits of the examination, though examination slightly limited as above. Prominence of the central pulmonary arteries with tortuosity of the pulmonary arteries is felt to relate to pulmonary artery hypertension. Slightly worsened moderate right and tiny left pleural effusions with increasing right-sided pulmonary infiltrate. Previously noted patchy opacities within the left lung have improved and nearly resolved. Developing small pericardial effusion. Bilateral kidneys appear stable from prior examinations with bilateral renal hypodensities and minimal perinephric fat stranding. Cardiomegaly. Bilateral gynecomastia. Additional findings as above. Dictated by: Dictated on workstation # [id number]
[2019-07-15] MEDS: RT-ALBUTEROL/IPRATROPIUM 3 ML (DUONEB) VIAL IH SCH ×5 (07:19→22:43)
--- NOTE | 2019-07-15 07:39 | History & Physical ---
History of Present Illness History of Present Illness Reason for visit/HPI Short of the air. Patient had problems breathing was short of the air and called EMS Patient sent out to the emergency room. Patient states he was just released from [facility] 4 days ago. Patient states he had EGD showing gastric polyps. Patient told not to be on blood thinness for 4 days. Getting records from [facility]. Patient states his legs and feet swelling now. Patient has history of COPD and CHF. Patient admitted to ICU. Patient troponin minimally elevated. . Date of Admission Jul 14, 2019 at 22:00 Time Seen by a Provider: 07:34 I consulted on this patient on 07/15/19 07:28 Attending Physician Laila Easton MD Admitting Physician Ricky Tee DO Consult Allergies and Home Medications Allergies Coded Allergies: cephalexin (Verified Adverse Reaction, Unknown, unknown- tolerated Rocephin with no issue 06/2019, 06/29/19) Home Medications Albuterol Sulfate 2.5 Mg/3 Ml Vial.neb, 2.5 MG NEB Q4H PRN for SHORTNESS OF BREATH, (Reported) Albuterol Sulfate 18 Gm Hfa.aer.ad, 2 PUFF INH Q4H PRN for SHORTNESS OF BREATH, (Reported) Amiodarone HCl 200 Mg Tablet, 200 MG PO 0900, (Reported) Amlodipine Besylate 5 Mg Tablet, 5 MG PO DAILY, (Reported) Apixaban 5 Mg Tablet, 5 MG PO BID, (Reported) Aspirin 81 Mg Tablet.dr, 81 MG PO DAILY, (Reported) Atorvastatin Calcium 10 Mg Tablet, 10 MG PO DAILY, (Reported) Buspirone HCl 10 Mg Tablet, 10 MG PO BID, (Reported) Cholecalciferol (Vitamin D3) 1,000 Unit Capsule, 1,000 UNIT PO DAILY, (Reported) Cyanocobalamin/Cobamamide 1 Each Tab.subl, 5,000 MCG SL DAILY, (Reported) Duloxetine HCl 60 Mg Capsule.dr, 60 MG PO BID, (Reported) Furosemide 40 Mg Tablet, 40 MG PO BID, (Reported) Hydrocodone/Acetaminophen 1 Each Tablet, 1 TAB PO TID PRN for PAIN-MODERATE, (Reported) Lisinopril 10 Mg Tablet, 10 MG PO DAILY, (Reported) Metoprolol Succinate 25 Mg Tab.er.24h, 12.5 MG PO DAILY, (Reported) TAKES 1/2 (25MG) TABLET Multivitamin/Iron/Folic Acid 1 Each Tablet, 1 TAB PO DAILY, (Reported) Pantoprazole Sodium 40 Mg Tablet.dr, 40 MG PO DAILY, (Reported) Penicillin V Potassium 500 Mg Tablet, 500 MG PO QID Prescribed by: JACQUI HUBBARD on 07/04/19 1044 Pregabalin 150 Mg Capsule, 150 MG PO BID, (Reported) Roflumilast 500 Mcg Tablet, 500 MCG PO DAILY, (Reported) Sildenafil Citrate 20 Mg Tablet, 20 MG PO TID, (Reported) Vitamin A Palmitate 10,000 Unit Capsule, 10,000 UNIT PO DAILY, (Reported) Patient Home Medication List Home Medication List Reviewed: No Past Akukniq-Myvymo-Zevqtq Hx Past Med/Social Hx: Reviewed Nursing Past Med/Soc Hx Patient Social History Marrital Status: Employed/Student: retired Alcohol Use: Denies Use Recreational Drug Use: Yes Drug of Choice: THC Smoking Status: Former Smoker Former Smoker, Quit: Sep 18, 2015 Type Used: Cigarettes 2nd Hand Smoke Exposure: No Recent Foreign Travel: No Contact w/other who traveled: No Recent Hopitalizations: Yes Recent Infectious Disease Expo: No Immunizations Up To Date Tetanus Booster (TDap): Unknown Date of Pneumonia Vaccine: Sep 04, 2012 Date of Influenza Vaccine: Jun 10, 2019 Seasonal Allergies Seasonal Allergies: Yes Past Medical History Surgeries: Cardiac, Vasectomy Respiratory: COPD, Emphysema, Sleep Apnea Currently Using CPAP: Yes (WAS WEARING AT HOME PER EMS) Currently Using BIPAP: Yes Cardiac: Chronic Edema/Swelling, Coronary Artery Disease, High Cholesterol, Hypertension, Valvular Heart Disease Reproductive: No Sexually Transmitted Disease: No HIV/AIDS: No Genitourinary: Renal Failure Gastrointestinal: Colitis Musculoskeletal: Degenerate Disk Disease, Osteoporosis, Arthritis, Back Injury, Chronic Back Pain, Fractures, Spasms Endocrine: Diabetes, Non-Insulin dep Loss of Vision: Bilateral Hearing Impairment: Denies Psychosocial: Anxiety, Depression History of Blood Disorders: No Adverse Reaction to Blood [place]: No Family History Arthritis 19 MOTHER Cardiovascular disease 19 MOTHER FH: lung cancer 19 FATHER Hypertension 19 MOTHER No Family History of: AIDS Abdominal aortic aneurysm Irwin's disease Alcoholism Alzheimer's disease Aphasia Asthma Cancer of mouth Cataracts Colon cancer Completed stroke Congenital disease Congenital heart disease Coronary thrombosis Cystic fibrosis Deafness or hearing loss Dementia Diabetes mellitus Drug abuse Dysphasia Fibrocystic disease of breast Gastroenteritis Glaucoma Headache disorder Hypercholesterolemia Infertility Kidney disease Myocardial infarction Neoplasm Not obtainable due to adoption Osteoporosis Parkinson's disease Prostate cancer Psychosocial problem Respiratory disorder Seizure disorder Severe allergy Thyroid disease Tuberculosis Visual disorder AAA, Heart Disease, Cancer, Hypertension Review of Systems Constitutional: weakness, weight loss EENTM: no symptoms reported Respiratory: dyspnea on exertion, short of breath Cardiovascular: no symptoms reported Gastrointestinal: no symptoms reported Genitourinary: no symptoms reported Physical Exam Vital Signs Vital Signs - First Documented 07/14/19 07/14/19 20:38 23:00 Temp 37.3 Pulse 83 Resp 26 B/P (MAP) 207/87 (127) Pulse Ox 91 O2 Delivery Nasal Cannula O2 Flow Rate 6.00 FiO2 45 Capillary Refill : Less Than 3 Seconds Height, Weight, BMI Height: 5'10.00" Weight: 348lbs. 6.0oz. 158.720308zw; 46.00 BMI Method:Stated General Appearance: No Apparent Distress, WD/WN Eyes: Bilateral Eye Normal Inspection HEENT: Normal ENT Inspection Neck: Full Range of Motion Respiratory: No Accessory Muscle Use, No Respiratory Distress, Decreased Breath Sounds, Other (On BiPAP) Cardiovascular: Regular Rate, Rhythm, No Murmur Gastrointestinal: Non Tender, Soft Assessment/Plan Assessment and Plan COPD exacerbation. CHF. Minimally elevated troponin 1. Diabetes. Gastric polyps recently removed. Anemia. Coronary artery disease. Hyperlipidemia. Admission Diagnosis Admission Status: Inpatient Order (span 2 midnights) Reason for Inpatient Admission: Short of breath. CHF. COPD. Pulmonary hypertension. Pretibial edema. Minimally elevated troponin 1 Clinical Quality Measures DVT/VTE Risk/Contraindication: Risk Factor Score Per Nursin RFS Level Per Nursing on Admit: 4+=Very High RICKY TEE DO Jul 15, 2019 07:39 POS
--- NOTE | 2019-07-15 08:24 | Diagnostic Imaging Report ---
Indication: Shortness of breath Portable chest 3:43 AM There is cardiomegaly with pulmonary vascular congestion. There is a small right pleural effusion. IMPRESSION: Congestive heart failure with small right pleural effusion. No appreciable change from the previous day. Dictated by: Dictated on workstation # [id number]
[2019-07-15] MEDS ORDERED: amLODIPine 5 MG (NORVASC) TAB PO SCH (09:00)
[2019-07-15] MEDS ORDERED: ENOXAPARIN 40 MG/0.4 ML (LOVENOX) SYR SC SCH ×2 (09:00)
[2019-07-15] MEDS: MULTIVIT W/MINERALS TAB (THERAGRAN M) PO SCH (09:20)
[2019-07-15] MEDS: CYANOCOBALAMIN 1,000 MCG (VITAMIN B-12) TABLET PO SCH (09:20)
[2019-07-15] MEDS: PREGABALIN 150 MG (LYRICA) CAPSULE PO SCH ×2 (09:22→21:23)
[2019-07-15] MEDS: ASPIRIN 81 MG CHEW (CHILDREN'S ASA) PO SCH (09:22)
[2019-07-15] MEDS: ROFLUMILAST 500 MCG TAB (DALIRESP) PO SCH (09:22)
[2019-07-15] MEDS: lisINopril 10 MG (PRINIVIL) TABLET PO SCH (09:22)
[2019-07-15] MEDS: busPIRone 10 MG (BUSPAR) TAB PO SCH ×2 (09:22→21:39)
[2019-07-15] MEDS: PANTOPRAZOLE 40 MG (PROTONIX) TAB PO SCH (09:22)
[2019-07-15] MEDS: AMIODARONE 200 MG (CORDARONE) TAB PO SCH (09:22)
[2019-07-15] MEDS: VITAMIN D3 1,000 UNITS (CHOLECALCIFEROL) TABLET PO SCH (09:22)
[2019-07-15] MEDS: DULoxetine 30 MG (CYMBALTA) CAP PO SCH ×2 (09:22→21:23)
[2019-07-15] MEDS: SILDENAFIL 20 MG (REVATIO) TAB NON-FORMULARY PO SCH ×3 (09:26→22:38)
[2019-07-15] MEDS: inSUlin ASPART (NovoLOG) 1 UNIT/0.01 ML (CHARGE PER UNIT) SC SCH ×3 (11:45→21:39)
--- NOTE | 2019-07-15 11:58 | Consultation-Cardiology ---
HPI-Cardiology Cardiology Consultation: Date of Consultation 07/15/19 Time Seen by a Provider: 12:40 Date of Admission 07-14-19 Attending Physician Laila Easton MD Admitting Physician Ricky Cleveland DO Consulting Physician Elvin Orta MD HPI: Chief Complaint: Progressive dyspnea Anemia Mr. Jeronimo is a 63 year old male admitted to ICU 9 from the ED with c/o increasing dyspnea. He reports he was at [facility] in [place] last week and was just released 2 days ago. He reports while at [facility] he was having bright red rectal bleeding for which he underwent colonoscopy there. He reports he was found to have ulcers and under cauterizing and polyp removal. He states he was told to hold his Eliquis for 4 days following procedure, he is not d/t restart Eliquis for another 2 days. He does not report any current bleeding or tarry bowel movements. He reports frequent lose cough. He denies any fever or chills. He reports progressive bilat LE swelling. He does not report any CP, palpitations, syncope or near syncope. He feels his breathing has improved since admission. Review of Systems-Cardiology Review of Systems Constitutional: No chills, No fever; malaise Eyes: No vision change Ears/Nose/Throat: No epistaxis, No recent hearing loss Respiratory: As described under HPI Cardiovascular: As described under HPI Gastrointestinal: No constipation, No diarrhea, No nausea, No vomiting Genitourinary: No dysuria, No hematuria Musculoskeletal: no symptoms reported Skin: No rash on exposed areas, No ulcerations on exposed areas Psychiatric/Neurological: No seizure, No focal weakness, No syncope Hematologic: No bleeding abnormalities All Other Systems Reviewed Negative Unless Noted: Yes CHY-Ltfxbb-Wwlozn Hx Patient Social History Marrital Status: Employed/Student: retired Alcohol Use: Denies Use Recreational Drug Use: Yes Drug of Choice: THC Smoking Status: Former Smoker Type Used: Cigarettes 2nd Hand Smoke Exposure: No Recent Foreign Travel: No Recent Infectious Disease Expo: No Hospitalization with Isolation: Denies Immunizations Up To Date Tetanus Booster (TDap): Unknown Date of Pneumonia Vaccine: Sep 04, 2012 Date of Influenza Vaccine: Jun 10, 2019 Past Medical History PMH As described under Assessment. Family Medical History Family Medical History: He does not report a family history of early coraonary arery disease or sudden cardiac . He does not report a family history of stroke. Family History: Arthritis 19 MOTHER Cardiovascular disease 19 MOTHER FH: lung cancer 19 FATHER Hypertension 19 MOTHER No Family History of: AIDS Abdominal aortic aneurysm Alfonzo's disease Alcoholism Alzheimer's disease Aphasia Asthma Cancer of mouth Cataracts Colon cancer Completed stroke Congenital disease Congenital heart disease Coronary thrombosis Cystic fibrosis Deafness or hearing loss Dementia Diabetes mellitus Drug abuse Dysphasia Fibrocystic disease of breast Gastroenteritis Glaucoma Headache disorder Hypercholesterolemia Infertility Kidney disease Myocardial infarction Neoplasm Not obtainable due to adoption Osteoporosis Parkinson's disease Prostate cancer Psychosocial problem Respiratory disorder Seizure disorder Severe allergy Thyroid disease Tuberculosis Visual disorder Allergies and Home Medications Allergies Coded Allergies: cephalexin (Verified Adverse Reaction, Unknown, unknown- tolerated Rocephin with no issue 06/2019, 06/29/19) Home Medications Albuterol Sulfate 2.5 Mg/3 Ml Vial.neb, 2.5 MG NEB Q4H PRN for SHORTNESS OF BREATH, (Reported) Albuterol Sulfate 18 Gm Hfa.aer.ad, 2 PUFF INH Q4H PRN for SHORTNESS OF BREATH, (Reported) Amiodarone HCl 200 Mg Tablet, 200 MG PO DAILY, (Reported) Amlodipine Besylate 5 Mg Tablet, 5 MG PO DAILY, (Reported) Apixaban 5 Mg Tablet, 5 MG PO BID, (Reported) THIS MED IS CURRENTLY ON HOLD Aspirin 81 Mg Tablet.dr, 81 MG PO DAILY, (Reported) Atorvastatin Calcium 10 Mg Tablet, 10 MG PO DAILY, (Reported) Buspirone HCl 10 Mg Tablet, 10 MG PO BID, (Reported) Cholecalciferol (Vitamin D3) 1,000 Unit Capsule, 1,000 UNIT PO DAILY, (Reported) Cyanocobalamin/Cobamamide 1 Each Tab.subl, 5,000 MCG SL DAILY, (Reported) Duloxetine HCl 60 Mg Capsule.dr, 60 MG PO BID, (Reported) Fluticasone/Vilanterol 1 Each Blst.w.dev, 1 PUFF PO DAILY, (Reported) Furosemide 40 Mg Tablet, 40 MG PO BID, (Reported) Hydrocodone/Acetaminophen 1 Each Tablet, 1 TAB PO TID PRN for PAIN-MODERATE, (Reported) Ipratropium/Albuterol Sulfate 3 Ml Ampul.neb, 3 ML IH Q4H PRN for SHORTNESS OF BREATH, (Reported) Lisinopril 10 Mg Tablet, 10 MG PO DAILY, (Reported) Metoprolol Succinate 25 Mg Tab.er.24h, 12.5 MG PO DAILY, (Reported) TAKES 1/2 (25MG) TABLET Multivitamin/Iron/Folic Acid 1 Each Tablet, 1 TAB PO DAILY, (Reported) Pantoprazole Sodium 40 Mg Tablet.dr, 40 MG PO DAILY, (Reported) Pregabalin 150 Mg Capsule, 150 MG PO BID, (Reported) Roflumilast 500 Mcg Tablet, 500 MCG PO DAILY, (Reported) Sildenafil Citrate 20 Mg Tablet, 20 MG PO TID, (Reported) Physical Exam-Cardiology Physical Exam Vital Signs/I&O 07/15/19 07/15/19 07/15/19 07/15/19 20:38 21:00 21:52 22:43 Temp 37.1 Pulse 68 73 70 Resp 20 20 21 B/P (MAP) 175/60 (98) 173/60 Pulse Ox 95 94 98 O2 Delivery Nasal Cannula Nasal Cannula Nasal Cannula O2 Flow Rate 4.00 4.00 4.00 40.00 07/16/19 07/16/19 07/16/19 07/16/19 00:00 01:00 01:31 04:00 Temp 37.0 36.4 Pulse 59 56 65 57 Resp 20 13 24 B/P (MAP) 143/63 (89) 154/68 (96) Pulse Ox 96 95 99 O2 Delivery NIV CPAP NIV CPAP O2 Flow Rate 40.00 07/16/19 07:16 Pulse 52 Resp 15 Pulse Ox 98 O2 Flow Rate 40.00 07/16/19 00:00 Intake Total 1520 ml Output Total 5325 ml Balance -3805 ml Capillary Refill : Less Than 3 Seconds Constitutional: AAO x 3, well-developed, well-nourished HEENT: PERRL, hearing is well preserved, oral hygience is good Neck: No carotid bruit; carotid pulses are 2 + bilaterally Respiratory: No accessory muscle use, No respiratory distress; chest expansion is symmetric, chest is bilaterally symmetric, other (fair air entry; frequent lose cough) Cardiovascular: regular rate-rhythm (freq PVC's), S1 and S2 Gastrointestinal: soft, round, audible bowel sounds Extremities: other (mod bilat LE swelling) Neurologic/Psychiatric: alert, grossly intact Skin: rash on exposed areas (r); No ulcerations on exposed areas Data Review Labs Laboratory Tests 07/15/19 09:20: Troponin I 0.044H 07/15/19 15:57: Glucometer 116H 07/15/19 20:50: Glucometer 185H 07/16/19 05:15: Sodium Level 143, Potassium Level 3.9, Chloride Level 93L, Carbon Dioxide Level 43H, Anion Gap 7, Blood Urea Nitrogen 21H, Creatinine 0.89, Estimat Glomerular Filtration Rate > 60, BUN/Creatinine Ratio 24, Glucose Level 62L, Calcium Level 8.7, Phosphorus Level 3.3, B-Type Natriuretic Peptide 416.1H 07/16/19 05:34: Glucometer 66L Microbiology 07/14/19 Blood Culture - Preliminary, Resulted No growth 07/15/19 Gram Stain - Final, Resulted 07/15/19 Sputum Culture, Resulted Pending Radiology NAME: KEMAR JERONIMO [facility] REC#: [id number] PT STATUS: ADM IN : 1955 PHYSICIAN: JHON STEPHENSON DO ADMIT DATE: 07/14/19/ICU Signed Date of Exam: 07/15/19 CT ANGIO CHEST W PROCEDURE: CT angiography of the chest with contrast. TECHNIQUE: Multiple contiguous axial images were obtained through the chest after uneventful bolus administration of intravenous contrast. 3D reconstructed CTA MIP acquisitions were also performed. Auto Exposure Controls were utilized during the CT exam to meet ALARA standards for radiation dose reduction. INDICATION: Shortness of breath, chest pain. COMPARISON: 07/01/2019 FINDINGS: No significant adenopathy within the chest. No aneurysmal dilatation of the thoracic aorta. The heart is enlarged. Small pericardial effusion, increased since the prior examination. Tiny left pleural effusion, having developed since the prior examination. Moderate-sized right pleural effusion, increased since the prior examination. This is associated with increasing consolidation and density within the right lower lobe. Previously noted peripheral patchy opacities within the bilateral lungs, particularly within the left lung have improved and nearly resolved. No additional new focal patchy pulmonary opacity. No pneumothorax. The central pulmonary arteries are dilated with tortuosity of the more distal pulmonary arteries. Bilateral gynecomastia. Evaluation for pulmonary emboli is slightly limited secondary to respiratory motion and patient body habitus. No significant central pulmonary embolus. Evaluation of subsegmental pulmonary emboli is severely limited. Hypodensities within bilateral kidneys are again noted. Fat stranding about the bilateral kidneys, left greater than right, is again noted appearing similar to the prior examination. Scattered osseous degenerative changes without acute osseous abnormality. Chronic fracture deformities within multiple right-sided ribs are again identified. IMPRESSION: No significant pulmonary embolus within the limits of the examination, though examination slightly limited as above. Prominence of the central pulmonary arteries with tortuosity of the pulmonary arteries is felt to relate to pulmonary artery hypertension. Slightly worsened moderate right and tiny left pleural effusions with increasing right-sided pulmonary infiltrate. Previously noted patchy opacities within the left lung have improved and nearly resolved. Developing small pericardial effusion. Bilateral kidneys appear stable from prior examinations with bilateral renal hypodensities and minimal perinephric fat stranding. Cardiomegaly. Bilateral gynecomastia. Additional findings as above. Dictated by: Dictated on workstation # [id number] Dict: 07/15/19 0700 Trans: 07/15/19 0843 Interpreted by: JACQUI BELLAMY MD Electronically signed by: JACQUI BELLAMY MD 07/15/19 0843 ECG Impression ECG Initial ECG Rhythm: Normal Sinus A/P-Cardiology Assessment/Admission Diagnosis Recurrent GI bleeds - scope per Dr. Gaytan on 06/28/19: Colon Polyps Internal hemorrhoids; Gastritis ; Hiatal hernia. Endoscopy of Jul 11, 2019 at [facility] showed sigmoid and ascending colon ulcer, nonbleeding (per D/C summary by Dr. Stack) Multifactorial shortness of breath: ac exac of COPD, severe anemia, obesity-hyp oventilation, ac on ch diastolic CHF Anemia d/t GI bleed Echo of 01/04/19 showed LVEF 65-70%, mod conc LVH, grade 1 gastelum dysfunction of LV, mod to sev enlargement of LA, PASP 45-[address] mmHg[address] Michaud at [facility] in [place] on Jul 08, 2019 shows LVEF 60%. Bilat atrial enlargement. LVH. Mild MR and TR. Aortic valve sclerosis without stenosis; mod to severe AoR. PASP 53 mmHg. Hemoptysis during hospitalization of Jun 2019, small qty, managed by the Med [facility]. Bronchoscopy on 07/03/19 did not indicate any active bleed or inflammation Ac exac of COPD due to pneumonia -management per medical/pulmonary services Has h/o COPD due to previous tobacco use OAC with Eliquis - holding due to recurrent GI bleeds Ac on ch diastolic CHF Ac renal insuff, probably due to diuretics and questionable occult blood loss (worsening anemia) Sinus node dysfunction: presentation with PAF in 2015 that was treated with elec cardioversion HTN - not well controlled Mild to moderate CAD on coronary angiography in 2010 Obesity with obesity-hypoventilation, TERE, and pulm hypertension. PASP was 60-65 mmHg on echo of 2015; 45-50 mmHg on echo of 01/04/19 TERE, treated with BiPAP Marijuana use (urine test positive in January 2019) Chronic narcotic use d/t chronic back and joint pain Chronic tobacco use that he quit in 2016 GERD Discussion and Recomendations Records from [facility] reviewed Complex management issue Recurrent GI bleeds, results of multiple endoscopies as note above - Dr. Gaytan consulted Transfuse 2 units PRBC PAF for which OAC with Eliquis has been advised, however, d/t multiple GI bleeds requiring multiple transfusions he is not a suitable candidate at this time for OAC. We will reduce Lovenox to DVT prophylaxis dosing d/t recurrent GI bleed We advise further w/u for source of bleeding be done expediently so that determination and cause can be treated We advise stool for occult blood be done BP is not well controlled - we will increase his BB and Norvasc We will add Pepcid to his regimen Management of pneumonia and COPD is with pulmonary services Monitor lab closely Further recs will be based on his hospital course We would like to thank medical services for this consult Clinical Quality Measures DVT/VTE Risk/Contraindication: Risk Factor Score Per Nursin RFS Level Per Nursing on Admit: 4+=Very High Contraindications-Pharm: Other *list below* PIEDAD GOEL Jul 15, 2019 11:58 POS
--- NOTE | 2019-07-15 12:26 | History & Physical ---
History of Present Illness History of Present Illness Reason for visit/HPI CC: SOB HPI: Patient presented to the ER last night for increasing shortness of breath. He has had similar episodes for the past 2.5 weeks which he was hospitalized for. He denies chest pain and hemoptysis. But has had a cough with thick white sputum. He also complains of increasing edema in the LE and bloating of the abdomen. His BiPap machine at home and breathing treatments make it better, but activity makes it worse. Date of Admission Jul 14, 2019 at 22:00 Date Seen by a Provider: Jul 15, 2019 Time Seen by a Provider: 11:50 I consulted on this patient on 07/15/19 12:20 Attending Physician Laila Easton MD Admitting Physician Ricky Cleveland DO Consult Allergies and Home Medications Allergies Coded Allergies: cephalexin (Verified Adverse Reaction, Unknown, unknown- tolerated Rocephin with no issue 06/2019, 06/29/19) Home Medications Albuterol Sulfate 2.5 Mg/3 Ml Vial.neb, 2.5 MG NEB Q4H PRN for SHORTNESS OF BREATH, (Reported) Albuterol Sulfate 18 Gm Hfa.aer.ad, 2 PUFF INH Q4H PRN for SHORTNESS OF BREATH, (Reported) Amiodarone HCl 200 Mg Tablet, 200 MG PO 0900, (Reported) Amlodipine Besylate 5 Mg Tablet, 5 MG PO DAILY, (Reported) Apixaban 5 Mg Tablet, 5 MG PO BID, (Reported) Aspirin 81 Mg Tablet.dr, 81 MG PO DAILY, (Reported) Atorvastatin Calcium 10 Mg Tablet, 10 MG PO DAILY, (Reported) Buspirone HCl 10 Mg Tablet, 10 MG PO BID, (Reported) Cholecalciferol (Vitamin D3) 1,000 Unit Capsule, 1,000 UNIT PO DAILY, (Reported) Cyanocobalamin/Cobamamide 1 Each Tab.subl, 5,000 MCG SL DAILY, (Reported) Duloxetine HCl 60 Mg Capsule.dr, 60 MG PO BID, (Reported) Furosemide 40 Mg Tablet, 40 MG PO BID, (Reported) Hydrocodone/Acetaminophen 1 Each Tablet, 1 TAB PO TID PRN for PAIN-MODERATE, (Reported) Lisinopril 10 Mg Tablet, 10 MG PO DAILY, (Reported) Metoprolol Succinate 25 Mg Tab.er.24h, 12.5 MG PO DAILY, (Reported) TAKES 1/2 (25MG) TABLET Multivitamin/Iron/Folic Acid 1 Each Tablet, 1 TAB PO DAILY, (Reported) Pantoprazole Sodium 40 Mg Tablet.dr, 40 MG PO DAILY, (Reported) Penicillin V Potassium 500 Mg Tablet, 500 MG PO QID Prescribed by: JACQUI HUBBARD on 07/04/19 1044 Pregabalin 150 Mg Capsule, 150 MG PO BID, (Reported) Roflumilast 500 Mcg Tablet, 500 MCG PO DAILY, (Reported) Sildenafil Citrate 20 Mg Tablet, 20 MG PO TID, (Reported) Vitamin A Palmitate 10,000 Unit Capsule, 10,000 UNIT PO DAILY, (Reported) Patient Home Medication List Home Medication List Reviewed: Yes Past Nighvmk-Xvqyvt-Uxamsr Hx Patient Social History Marrital Status: Employed/Student: retired Alcohol Use: Denies Use Recreational Drug Use: Yes Drug of Choice: THC Smoking Status: Former Smoker Former Smoker, Quit: Sep 18, 2015 Type Used: Cigarettes 2nd Hand Smoke Exposure: No Recent Foreign Travel: No Contact w/other who traveled: No Recent Hopitalizations: Yes Recent Infectious Disease Expo: No Immunizations Up To Date Tetanus Booster (TDap): Unknown Date of Pneumonia Vaccine: Sep 04, 2012 Date of Influenza Vaccine: Jun 10, 2019 Seasonal Allergies Seasonal Allergies: Yes Surgeries Yes (FATTY TUMOR REMOVED FROM TOP OF HEAD. CARDIAC CATH X 2--NO INTERVENTION) Cardiac, Vasectomy Respiratory Yes COPD, Emphysema, Sleep Apnea Currently Using CPAP: Yes (WAS WEARING AT HOME PER EMS) Currently Using BIPAP: Yes Cardiovascular Yes Atrial Fibrillation, Chronic Edema/Swelling, Coronary Artery Disease, High Cholesterol, Hypertension, Valvular Heart Disease Neurological No Reproductive System Hx Reproductive Disorders: No Sexually Transmitted Disease: No HIV/AIDS: No Genitourinary Yes (RENAL INSUFFICIENCY) Renal Failure Gastrointestinal Yes Colitis Musculoskeletal Yes ("BULGING DISCS" ; CHRONIC "JERKING" OF MUSCLES; CHRONIC NARCOTIC USE) Degenerate Disk Disease, Osteoporosis, Arthritis, Back Injury, Chronic Back Pain, Fractures, Spasms Endocrine History of Endocrine Disorders: Yes (MORBID OBESITY) Endocrine Disorders: Diabetes, Non-Insulin dep HEENT History of HEENT Disorders: Yes (NEAR SIGHTED) Loss of Vision: Bilateral Hearing Impairment: Denies Cancer No Psychosocial History of Psychiatric Problem: Yes Behavioral Health Disorders: Anxiety, Depression Integumentary History of Skin or Integumenta: No Blood Transfusions History of Blood Disorders: No Adverse Reaction to a Blood Tr: No Family Medical History Significant Family History: AAA (Mom), Heart Disease, Cancer (Dad), Hypertension Family Hx: Arthritis 19 MOTHER Cardiovascular disease 19 MOTHER FH: lung cancer 19 FATHER Hypertension 19 MOTHER No Family History of: AIDS Abdominal aortic aneurysm Alfonzo's disease Alcoholism Alzheimer's disease Aphasia Asthma Cancer of mouth Cataracts Colon cancer Completed stroke Congenital disease Congenital heart disease Coronary thrombosis Cystic fibrosis Deafness or hearing loss Dementia Diabetes mellitus Drug abuse Dysphasia Fibrocystic disease of breast Gastroenteritis Glaucoma Headache disorder Hypercholesterolemia Infertility Kidney disease Myocardial infarction Neoplasm Not obtainable due to adoption Osteoporosis Parkinson's disease Prostate cancer Psychosocial problem Respiratory disorder Seizure disorder Severe allergy Thyroid disease Tuberculosis Visual disorder Review of Systems Constitutional: No chills, No fever EENTM: other (Chronic Poor Vision); No double vision Respiratory: cough, dyspnea on exertion, phlegm, short of breath Cardiovascular: No chest pain; edema; No palpitations Gastrointestinal: abdominal pain (Lower abdominal Soreness); No constipation, No diarrhea Genitourinary: no symptoms reported Musculoskeletal: see HPI (chronic back pain and Left shoulder pain) Skin: no symptoms reported Physical Exam Vital Signs Vital Signs - First Documented 07/14/19 07/14/19 20:38 23:00 Temp 37.3 Pulse 83 Resp 26 B/P (MAP) 207/87 (127) Pulse Ox 91 O2 Delivery Nasal Cannula O2 Flow Rate 6.00 FiO2 45 Capillary Refill : Less Than 3 Seconds Height, Weight, BMI Height: 5'10.00" Weight: 348lbs. 6.0oz. [id number]; 46.00 BMI Method:Stated General Appearance: Chronically ill, Obese HEENT: PERRL/EOMI Neck: Normal Inspection, Supple Respiratory: Chest Non Tender, Accessory Muscle Use, Decreased Breath Sounds, Other (Noticeable shortness of air while conversating. ) Cardiovascular: Regular Rate, Rhythm, Normal Peripheral Pulses (Radial b/l), Other (3+ edema in LE) Gastrointestinal: No Organomegaly, Soft, Tenderness (Lower quadrants) Extremity: Pedal Edema, Other (Hematoma formation on Left anterior tibia that patient says is nonchanging. ) Neurologic/Psychiatric: Alert, Oriented x3, No Motor/Sensory Deficits Skin: Normal Color, Warm/Dry Assessment/Plan Assessment and Plan COPD exacerbation. CHF. Minimally elevated troponin 1. Diabetes. Gastric polyps recently removed. Anemia. Coronary artery disease. Hyperlipidemia. Admission Diagnosis Admission Status: Inpatient Order (span 2 midnights) Reason for Inpatient Admission: Short of breath. CHF. COPD. Pulmonary hypertension. Pretibial edema. Minimally elevated troponin 1 Clinical Quality Measures DVT/VTE Risk/Contraindication: Risk Factor Score Per Nursin RFS Level Per Nursing on Admit: 4+=Very High Contraindications-Pharm: Other *list below* Supervisory-Addendum Brief Verification & Attestation Participated in pt care: other (Medical Student) Personally performed: other (Medical Student) Care discussed with: other (Dr. Cleveland) Procedures: n/a MSIII Alexei Kennedy. Family Medicine Rotation with Dr. Cleveland. SAMANTHA KENNEDY MED STUDEN Jul 15, 2019 12:26 POS
[2019-07-15] MEDS ORDERED: FUROSEMIDE 40 MG/4 ML INJ (LASIX) IVP NR (13:00)
[2019-07-15] MEDS ORDERED: NS IV 500 ML 500 ML ONE (14:38)
[2019-07-15] MEDS ORDERED: FLUT1BLS INH (14:48)
[2019-07-15] MEDS ORDERED: IPRA3AMP31 IH (14:49)
--- NOTE | 2019-07-15 14:50 | NUR ---
SPOKE WITH PT AND HE LET ME KNOW HIS DAUGHTER TAKES CARE OF HIS MEDS. I CALLED HER AND WAS ABLE TO GET THE MEDICATION LIST FROM HIS RECENT [facility] DISCHARGE, I WAS ABLE TO COMPLETE THE MED REC USING THIS AND THE EXT MED HIST. PT'S DAUGHTER AND I WENT THRU THE MED LIST FROM [facility] AND VERIFIED EACH MEDICATION AND HOW/WHEN HE TAKES IT. ALL MEDICATIONS MATCHED THE EXT MED HISTORY EXCEPT THE FUROSEMIDE. PT HAS BEEN TAKING FUROSEMIDE 40MG BID, BUT ON THE MED LIST FROM [facility] IT SAYS THEY ARE CHANGING HIS DOSE TO 40MG ONCE DAILY. SHE DID NOT KNOW ANYTHING ABOUT IT AND WAS GOING TO FOLLOW UP WITH HIS PROVIDER. OTC MEDS: ASPIIRN VIT D B12 MTC
--- NOTE | 2019-07-15 15:06 | Consultation - Surgery ---
History of Present Illness History of Present Illness Patient Consulted On(jamila/time) 07/15/19 15:01 Time Seen by Provider: 14:32 Reason for Visit: Dyspnea History of Present Illness Surgery asked to consult regarding anemia and hx of GI bleed. HPI per ED: Patient presents ER by EMS from home with chief complaint shortness of breath progressively worsening over the last day or so. He just got released from [facility] in [place] to 4 days ago where he had several polyps excised from his stomach on endoscopy. He is usually on Eliquis for his atrial fibrillation however this is being held for a few more days while his stomach heels. He says they had to give him 6 units of blood will he was there due to anemia. Has a history of CHF and COPD. He says the swelling in his legs as the worst it's been in a long time. He does wear a trilogy at night to sleep 20/7 cm water pressure. He feels hot and sweaty but no fevers or chills. He is not having any chest pain although he does have a history of coronary disease. He does have some pain in his back and his left shoulder and has been told that he needs a rotator cuff repair but cannot tolerate anesthesia. He has a large hematoma over his left leg that has been there for months and is known. He took a breathing treatment about 30-45 minutes ago. EMS reports that on 6 L his oxygen sats were staying in the low 90s. When I spoke to pt he states he was at [facility], because he got transferred there from [facility] because we were full. At [facility] he had repeat colonoscopy which did not find a source of the rectal bleeding. His hemoglobin was relatively stable while at [facility]. He states he has not seen any more rectal bleeding. He was at home and got short of breath and that is why he came back. States his belly feels distended. Pt does not really have abdominal pain. Allergies and Home Medications Allergies Coded Allergies: cephalexin (Verified Adverse Reaction, Unknown, unknown- tolerated Rocephin with no issue 06/2019, 06/29/19) Home Medications Albuterol Sulfate 2.5 Mg/3 Ml Vial.neb, 2.5 MG NEB Q4H PRN for SHORTNESS OF BREATH, (Reported) Albuterol Sulfate 18 Gm Hfa.aer.ad, 2 PUFF INH Q4H PRN for SHORTNESS OF BREATH, (Reported) Amiodarone HCl 200 Mg Tablet, 200 MG PO DAILY, (Reported) Amlodipine Besylate 5 Mg Tablet, 5 MG PO DAILY, (Reported) Apixaban 5 Mg Tablet, 5 MG PO BID, (Reported) THIS MED IS CURRENTLY ON HOLD Aspirin 81 Mg Tablet.dr, 81 MG PO DAILY, (Reported) Atorvastatin Calcium 10 Mg Tablet, 10 MG PO DAILY, (Reported) Buspirone HCl 10 Mg Tablet, 10 MG PO BID, (Reported) Cholecalciferol (Vitamin D3) 1,000 Unit Capsule, 1,000 UNIT PO DAILY, (Reported) Cyanocobalamin/Cobamamide 1 Each Tab.subl, 5,000 MCG SL DAILY, (Reported) Duloxetine HCl 60 Mg Capsule.dr, 60 MG PO BID, (Reported) Fluticasone/Vilanterol 1 Each Blst.w.dev, 1 PUFF PO DAILY, (Reported) Furosemide 40 Mg Tablet, 40 MG PO BID, (Reported) Hydrocodone/Acetaminophen 1 Each Tablet, 1 TAB PO TID PRN for PAIN-MODERATE, (Reported) Ipratropium/Albuterol Sulfate 3 Ml Ampul.neb, 3 ML IH Q4H PRN for SHORTNESS OF BREATH, (Reported) Lisinopril 10 Mg Tablet, 10 MG PO DAILY, (Reported) Metoprolol Succinate 25 Mg Tab.er.24h, 12.5 MG PO DAILY, (Reported) TAKES 1/2 (25MG) TABLET Multivitamin/Iron/Folic Acid 1 Each Tablet, 1 TAB PO DAILY, (Reported) Pantoprazole Sodium 40 Mg Tablet.dr, 40 MG PO DAILY, (Reported) Pregabalin 150 Mg Capsule, 150 MG PO BID, (Reported) Roflumilast 500 Mcg Tablet, 500 MCG PO DAILY, (Reported) Sildenafil Citrate 20 Mg Tablet, 20 MG PO TID, (Reported) Patient Home Medication List Home Medication List Reviewed: Yes Past Hmpampk-Ttiydn-Zzeane Hx Patient Social History Alcohol Use: Denies Use Recreational Drug Use: Yes Drug of Choice: THC Smoking Status: Former Smoker Former Smoker, Quit: Sep 18, 2015 Type Used: Cigarettes 2nd Hand Smoke Exposure: No Recent Foreign Travel: No Contact w/Someone Who Travel: No Recent Infectious Disease Expo: No Recent Hopitalizations: Yes Immunizations Up To Date Tetanus Booster (TDap): Unknown Date of Pneumonia Vaccine: Sep 04, 2012 Date of Influenza Vaccine: Jun 10, 2019 Seasonal Allergies Seasonal Allergies: Yes Surgeries History of Surgeries: Yes (FATTY TUMOR REMOVED FROM TOP OF HEAD. CARDIAC CATH X 2--NO INTERVENTION) Surgeries: Cardiac, Vasectomy Respiratory History of Respiratory Disorde: Yes Respiratory Disorders: Pneumonia, Chronic Bronchitis, Sleep Apnea, COPD, Emphysema Cardiovascular History of Cardiac Disorders: Yes Cardiac Disorders: Atrial Fibrillation, Chronic Edema/Swelling, Coronary Artery Disease, High Cholesterol, Hypertension, Valvular Heart Disease Neurological History of Neurological Disord: No Reproductive System Hx Reproductive Disorders: No Sexually Transmitted Disease: No HIV/AIDS: No Genitourinary History of Genitourinary Disor: Yes (RENAL INSUFFICIENCY) Genitourinary Disorders: Renal Failure Gastrointestinal History of Gastrointestinal Di: Yes Gastrointestinal Disorders: Colitis Musculoskeletal History of Musculoskeletal Dis: Yes ("BULGING DISCS" ; CHRONIC "JERKING" OF MUSCLES; CHRONIC NARCOTIC USE) Musculoskeletal Disorders: Degenerate Disk Disease, Osteoporosis, Arthritis, Back Injury, Chronic Back Pain, Fractures, Spasms Endocrine History of Endocrine Disorders: Yes (MORBID OBESITY) Endocrine Disorders: Diabetes, Non-Insulin dep HEENT History of HEENT Disorders: Yes (NEAR SIGHTED) Loss of Vision: Bilateral Hearing Impairment: Denies Cancer History of Cancer: No Psychosocial History of Psychiatric Problem: Yes Behavioral Health Disorders: Anxiety, Depression Integumentary History of Skin or Integumenta: No Blood Transfusions History of Blood Disorders: No Adverse Reaction to a Blood Tr: No Family Medical History Significant Family History: AAA (Mom), Heart Disease, Cancer (Dad), Hypertension Family Medial History: Arthritis 19 MOTHER Cardiovascular disease 19 MOTHER FH: lung cancer 19 FATHER Hypertension 19 MOTHER No Family History of: AIDS Abdominal aortic aneurysm Alfonzo's disease Alcoholism Alzheimer's disease Aphasia Asthma Cancer of mouth Cataracts Colon cancer Completed stroke Congenital disease Congenital heart disease Coronary thrombosis Cystic fibrosis Deafness or hearing loss Dementia Diabetes mellitus Drug abuse Dysphasia Fibrocystic disease of breast Gastroenteritis Glaucoma Headache disorder Hypercholesterolemia Infertility Kidney disease Myocardial infarction Neoplasm Not obtainable due to adoption Osteoporosis Parkinson's disease Prostate cancer Psychosocial problem Respiratory disorder Seizure disorder Severe allergy Thyroid disease Tuberculosis Visual disorder Review of Systems-General Constitutional: malaise, weakness EENTM: No blurred vision, No double vision, No mouth pain, No mouth swelling, N o epistaxis Respiratory: No cough; dyspnea on exertion; No hemoptysis; short of breath Cardiovascular: No chest pain; edema, Hx of Intervention Gastrointestinal: No dysphagia, No hematemesis, No jaundice; nausea; No vomiting Genitourinary: No dysuria; frequency; No hematuria; other (currently has saeed in place) Musculoskeletal: joint pain, joint swelling, muscle pain, muscle stiffness Skin: No lesions, No lumps Psychiatric/Neurological: Anxiety, Depressed; Denies Seizure, Denies Tremors Other pt has hx of easy bleeding and bruising; "when I take my blood thinners". Physical Exam-General Problems Physical Exam Vital Signs Vital Signs - First Documented 07/14/19 07/14/19 20:38 23:00 Temp 37.3 Pulse 83 Resp 26 B/P (MAP) 207/87 (127) Pulse Ox 91 O2 Delivery Nasal Cannula O2 Flow Rate 6.00 FiO2 45 Capillary Refill : Less Than 3 Seconds General Appearance: WD/WN, no apparent distress, obese Eyes: Bilateral Eye PERRL, Bilateral Eye EOMI HEENT: pharynx normal; No scleral icterus (R), No scleral icterus (L), No pale conjunctivae (R), No pale conjunctivae (L) Neck: non-tender, full range of motion, supple Respiratory: chest non-tender, no respiratory distress, no accessory muscle use, decreased breath sounds, crackles (at bases) Cardiovascular: regular rate, rhythm, systolic murmur (III/) Gastrointestinal: normal bowel sounds, non tender, soft, no organomegaly, no pulsatile mass Back: no CVA tenderness, no vertebral tenderness Extremities: normal range of motion, non-tender, normal inspection, no calf tenderness, pedal edema (b/l) Neurologic/Psychiatric: upper shaper II-XII nml as tested, alert, normal mood/affect, oriented x 3 Skin: normal color, warm/dry Lymphatic: no adenopathy (neck, axilla or groin) Data Review Labs Laboratory Tests 07/14/19 20:45: Blood Gas Puncture Site RIGHT RADIAL, Blood Gas Patient Temperature 37.3, Arterial Blood pH 7.27*L, Arterial Blood Partial Pressure CO2 100*H, Arterial Blood Partial Pressure O2 80, Arterial Blood HCO3 45*H, Arterial Blood Total CO2 47.5H, Arterial Blood Oxygen Saturation 95, Arterial Blood Base Excess 17.1H, Neil Test POSITIVE, Blood Gas Ventilator Setting NO, Blood Gas Inspired Oxygen 6 07/14/19 20:48: White Blood Count 11.0, Red Blood Count 3.34L, Hemoglobin 9.4L, Hematocrit 32L, Mean Corpuscular Volume 95, Mean Corpuscular Hemoglobin 28, Mean Corpuscular Hemoglobin Concent 30L, Red Cell Distribution Width 16.8H, Platelet Count 183, Mean Platelet Volume 9.2, Neutrophils (%) (Auto) 78H, Lymphocytes (%) (Auto) 12, Monocytes (%) (Auto) 8, Eosinophils (%) (Auto) 2, Basophils (%) (Auto) 0, Neutrophils # (Auto) 8.6H, Lymphocytes # (Auto) 1.3, Monocytes # (Auto) 0.9, Eosinophils # (Auto) 0.2, Basophils # (Auto) 0.0, Prothrombin Time 12.5, INR Comment 0.9, Activated Partial Thromboplast Time 30, Sodium Level 145, Potassium Level 4.9, Chloride Level 96L, Carbon Dioxide Level 37H, Anion Gap 12, Blood Urea Nitrogen 24H, Creatinine 1.30, Estimat Glomerular Filtration Rate 56, BUN/Creatinine Ratio 18, Glucose Level 138H, Lactic Acid Level 0.62, Calcium Level 8.9, Corrected Calcium 9.4, Total Bilirubin 0.3, Aspartate Amino Transf (AST/SGOT) 28, Alanine Aminotransferase (ALT/SGPT) 32, Alkaline Phosphatase 92, Troponin I 0.042H, C-Reactive Protein High Sensitivity 1.30H, B-Type Natriuretic Peptide 464.4H, Total Protein 7.1, Albumin 3.4 07/14/19 22:20: Blood Gas Puncture Site LEFT RADIAL, Blood Gas Patient Temperature 36.9, Arterial Blood pH 7.32*L, Arterial Blood Partial Pressure CO2 88*H, Arterial Blood Partial Pressure O2 103H, Arterial Blood HCO3 44*H, Arterial Blood Total CO2 46.4H, Arterial Blood Oxygen Saturation 98, Arterial Blood Base Excess 16.8H , Neil Test POSITIVE, Blood Gas Ventilator Setting YES, Blood Gas Inspired Oxygen 45% BIPAP 07/15/19 03:05: White Blood Count 8.6, Red Blood Count 3.07L, Hemoglobin 8.4L, Hematocrit 29L, Mean Corpuscular Volume 95, Mean Corpuscular Hemoglobin 27, Mean Corpuscular Hemoglobin Concent 29L, Red Cell Distribution Width 16.7H, Platelet Count 159, Mean Platelet Volume 9.7, Neutrophils (%) (Auto) 70, Lymphocytes (%) (Auto) 19, Monocytes (%) (Auto) 9, Eosinophils (%) (Auto) 2, Basophils (%) (Auto) 0, Neutrophils # (Auto) 6.0, Lymphocytes # (Auto) 1.6, Monocytes # (Auto) 0.8, Eosinophils # (Auto) 0.2, Basophils # (Auto) 0.0, Sodium Level 145, Potassium Level 4.1, Chloride Level 98, Carbon Dioxide Level 39H, Anion Gap 8, Blood Urea Nitrogen 24H, Creatinine 1.09, Estimat Glomerular Filtration Rate > 60, BUN/Creatinine Ratio 22, Glucose Level 75, Calcium Level 8.7, Troponin I 0.042H, Phosphorus Level 3.0, Magnesium Level 1.8 07/15/19 03:30: Blood Gas Puncture Site RIGHT RADIAL, Blood Gas Patient Temperature 36.1, Arterial Blood pH 7.42, Arterial Blood Partial Pressure CO2 69H, Arterial Blood Partial Pressure O2 65L, Arterial Blood HCO3 45*H, Arterial Blood Total CO2 47.0H, Arterial Blood Oxygen Saturation 95, Arterial Blood Base Excess 18.9H, Neil Test POSITIVE, Blood Gas Ventilator Setting NO, Blood Gas Inspired Oxygen 30% BIPAP 07/15/19 09:20: Troponin I 0.044H Microbiology 07/14/19 Influenza Types A,B Antigen (JENNY) - Final, Complete Assessment/Plan Assessment/Plan Assessment/Plan Anemia Hx of GI bleed Acute on Chronic Respiratory Failure Pt is currenty getting blood transfusion per Cardiology; Hg was 9.4 and today 8.4. Pt has had 2 very recent colonoscopies and does not need another. I suspect that the "ulcers" seen during recent scope are where I did snare polypectomies previously. Will follow along; would not transfuse unless Hg drops below 8. Max medical care. Clinical Quality Measures DVT/VTE Risk/Contraindication: Risk Factor Score Per Nursin RFS Level Per Nursing on Admit: 4+=Very High Contraindications-Pharm: Other *list below* BEENA HA DO Jul 15, 2019 15:06 POS
--- NOTE | 2019-07-15 15:59 | NUR ---
1545 PT TO ROOM 427 VIA W/C ACCOMPANIED BY THIS RN. REPORT GIVEN PRIOR TO TRANSFER TO [facility]. ALL PERSONAL BELONGINGS SENT DOWN WITH PT.
--- NOTE | 2019-07-15 16:00 | NUR ---
Pt arrived to floor, pt denies needs at this time. Pt sitting in chair, call light in reach, will continue to monitor
--- NOTE | 2019-07-15 17:31 | Consultation-Cardiology ---
HPI-Cardiology Cardiology Consultation: Date of Consultation 07/15/19 Time Seen by a Provider: 17:10 Date of Admission 07/15/19 Attending Physician Laila Easton MD Admitting Physician Ricky Cleveland DO Consulting Physician PATSY SERVIN MD, MA, FACP, FACC, [facility] [place] CCDS HPI: Chief Complaint: Reason for consultation: Progressive shortness of breath HPI Mr. Loepz is a 63 year old male admitted to ICU 9 from the ED with c/o increasing dyspnea. He reports he was at [facility] in [place] last week and was just released 2 days ago. He reports while at [facility] he was having bright red rectal bleeding for which he underwent colonoscopy there. He reports he was found to have ulcers and under cauterizing and polyp removal. He states he was told to hold his Eliquis for 4 days following procedure, he is not d/t restart Eliquis for another 2 days. He does not report any current bleeding or tarry bowel movements. He reports frequent lose cough. He denies any fever or chills. He reports progressive bilat LE swelling. He does not report any CP, palpitations, syncope or near syncope. He feels his breathing has improved since admission. Review of Systems-Cardiology Review of Systems Constitutional: No chills, No fever; malaise Eyes: No vision change Ears/Nose/Throat: No epistaxis, No recent hearing loss Respiratory: As described under HPI Cardiovascular: As described under HPI Gastrointestinal: No constipation, No diarrhea, No nausea, No vomiting Genitourinary: No dysuria, No hematuria Musculoskeletal: no symptoms reported Skin: No rash on exposed areas, No ulcerations on exposed areas Psychiatric/Neurological: No seizure, No focal weakness, No syncope Hematologic: No bleeding abnormalities All Other Systems Reviewed Negative Unless Noted: Yes CGR-Geggpc-[id number] Hx Patient Social History Marrital Status: Employed/Student: retired Alcohol Use: Denies Use Recreational Drug Use: Yes Drug of Choice: THC Smoking Status: Former Smoker Type Used: Cigarettes 2nd Hand Smoke Exposure: No Recent Foreign Travel: No Recent Infectious Disease Expo: No Hospitalization with Isolation: Denies Immunizations Up To Date Tetanus Booster (TDap): Unknown Date of Pneumonia Vaccine: Sep 04, 2012 Date of Influenza Vaccine: Jun 10, 2019 Past Medical History PMH As described under Assessment. Family Medical History Family Medical History: He does not report a family history of early coraonary arery disease or sudden cardiac . He does not report a family history of stroke. Family History: Arthritis 19 MOTHER Cardiovascular disease 19 MOTHER FH: lung cancer 19 FATHER Hypertension 19 MOTHER No Family History of: AIDS Abdominal aortic aneurysm [place]'s disease Alcoholism Alzheimer's disease Aphasia Asthma Cancer of mouth Cataracts Colon cancer Completed stroke Congenital disease Congenital heart disease Coronary thrombosis Cystic fibrosis Deafness or hearing loss Dementia Diabetes mellitus Drug abuse Dysphasia Fibrocystic disease of breast Gastroenteritis Glaucoma Headache disorder Hypercholesterolemia Infertility Kidney disease Myocardial infarction Neoplasm Not obtainable due to adoption Osteoporosis Parkinson's disease Prostate cancer Psychosocial problem Respiratory disorder Seizure disorder Severe allergy Thyroid disease Tuberculosis Visual disorder Allergies and Home Medications Allergies Coded Allergies: cephalexin (Verified Adverse Reaction, Unknown, unknown- tolerated Rocephin with no issue 06/2019, 06/29/19) Home Medications Albuterol Sulfate 2.5 Mg/3 Ml Vial.neb, 2.5 MG NEB Q4H PRN for SHORTNESS OF BREATH, (Reported) Albuterol Sulfate 18 Gm Hfa.aer.ad, 2 PUFF INH Q4H PRN for SHORTNESS OF BREATH, (Reported) Amiodarone HCl 200 Mg Tablet, 200 MG PO DAILY, (Reported) Amlodipine Besylate 5 Mg Tablet, 5 MG PO DAILY, (Reported) Apixaban 5 Mg Tablet, 5 MG PO BID, (Reported) THIS MED IS CURRENTLY ON HOLD Aspirin 81 Mg Tablet.dr, 81 MG PO DAILY, (Reported) Atorvastatin Calcium 10 Mg Tablet, 10 MG PO DAILY, (Reported) Buspirone HCl 10 Mg Tablet, 10 MG PO BID, (Reported) Cholecalciferol (Vitamin D3) 1,000 Unit Capsule, 1,000 UNIT PO DAILY, (Reported) Cyanocobalamin/Cobamamide 1 Each Tab.subl, 5,000 MCG SL DAILY, (Reported) Duloxetine HCl 60 Mg Capsule.dr, 60 MG PO BID, (Reported) Fluticasone/Vilanterol 1 Each Blst.w.dev, 1 PUFF PO DAILY, (Reported) Furosemide 40 Mg Tablet, 40 MG PO BID, (Reported) Hydrocodone/Acetaminophen 1 Each Tablet, 1 TAB PO TID PRN for PAIN-MODERATE, (Reported) Ipratropium/Albuterol Sulfate 3 Ml Ampul.neb, 3 ML IH Q4H PRN for SHORTNESS OF BREATH, (Reported) Lisinopril 10 Mg Tablet, 10 MG PO DAILY, (Reported) Metoprolol Succinate 25 Mg Tab.er.24h, 12.5 MG PO DAILY, (Reported) TAKES 1/2 (25MG) TABLET Multivitamin/Iron/Folic Acid 1 Each Tablet, 1 TAB PO DAILY, (Reported) Pantoprazole Sodium 40 Mg Tablet.dr, 40 MG PO DAILY, (Reported) Pregabalin 150 Mg Capsule, 150 MG PO BID, (Reported) Roflumilast 500 Mcg Tablet, 500 MCG PO DAILY, (Reported) Sildenafil Citrate 20 Mg Tablet, 20 MG PO TID, (Reported) Patient Home Medication List Home Medication List Reviewed: Yes Physical Exam-Cardiology Physical Exam Vital Signs/I&O 07/15/19 07/15/19 07/15/19 07/15/19 06:00 07:00 07:00 07:19 Pulse 64 70 70 66 Resp 25 23 18 B/P (MAP) 160/56 (90) 182/65 (104) Pulse Ox 96 100 96 O2 Delivery NIV Bilevel NIV Bilevel O2 Flow Rate 30.00 30.00 30.00 07/15/19 07/15/19 07/15/19 07/15/19 08:00 08:20 09:00 09:15 Pulse 65 66 Resp 12 B/P (MAP) 166/63 (97) 163/58 (93) Pulse Ox 96 97 96 95 O2 Delivery NIV Bilevel Nasal Cannula NIV Bilevel Nasal Cannula O2 Flow Rate 30.00 4.00 30.00 3.00 07/15/19 07/15/19 07/15/19 07/15/19 09:33 12:30 13:00 14:22 Pulse 84 81 Resp 30 B/P (MAP) 166/62 (96) Pulse Ox 97 94 O2 Delivery Nasal Cannula Nasal Cannula Nasal Cannula O2 Flow Rate 4.00 4.00 4.00 07/15/19 07/15/19 07/15/19 07/15/19 14:45 15:19 16:40 16:54 Temp 36.8 37.6 37.0 Pulse 81 74 71 Resp 20 B/P (MAP) 189/70 139/56 158/57 (90) Pulse Ox 92 95 92 O2 Delivery Nasal Cannula Nasal Cannula Nasal Cannula Nasal Cannula O2 Flow Rate 4.00 4.00 4.00 07/15/19 00:00 Intake Total 100 ml Balance 100 ml Capillary Refill : Less Than 3 SecondsLess Than 3 Seconds Constitutional: AAO x 3, well-developed, well-nourished HEENT: PERRL, hearing is well preserved, oral hygience is good Neck: No carotid bruit; carotid pulses are 2 + bilaterally Respiratory: No accessory muscle use, No respiratory distress; chest expansion is symmetric, chest is bilaterally symmetric, other (fair air entry; frequent lose cough) Cardiovascular: regular rate-rhythm (freq PVC's), S1 and S2 Gastrointestinal: soft, round, audible bowel sounds Extremities: other (mod bilat LE swelling) Neurologic/Psychiatric: alert, grossly intact Skin: rash on exposed areas (r); No ulcerations on exposed areas Lymphatic: no adenopathy (neck, axilla or groin) Data Review Labs Laboratory Tests 07/14/19 20:45: Blood Gas Puncture Site RIGHT RADIAL, Blood Gas Patient Temperature 37.3, Arterial Blood pH 7.27*L, Arterial Blood Partial Pressure CO2 100*H, Arterial Blood Partial Pressure O2 80, Arterial Blood HCO3 45*H, Arterial Blood Total CO2 47.5H, Arterial Blood Oxygen Saturation 95, Arterial Blood Base Excess 17.1H, Neil Test POSITIVE, Blood Gas Ventilator Setting NO, Blood Gas Inspired Oxygen 6 07/14/19 20:48: White Blood Count 11.0, Red Blood Count 3.34L, Hemoglobin 9.4L, Hematocrit 32L, Mean Corpuscular Volume 95, Mean Corpuscular Hemoglobin 28, Mean Corpuscular Hemoglobin Concent 30L, Red Cell Distribution Width 16.8H, Platelet Count 183, Mean Platelet Volume 9.2, Neutrophils (%) (Auto) 78H, Lymphocytes (%) (Auto) 12, Monocytes (%) (Auto) 8, Eosinophils (%) (Auto) 2, Basophils (%) (Auto) 0, Neutrophils # (Auto) 8.6H, Lymphocytes # (Auto) 1.3, Monocytes # (Auto) 0.9, Eosinophils # (Auto) 0.2, Basophils # (Auto) 0.0, Prothrombin Time 12.5, INR Comment 0.9, Activated Partial Thromboplast Time 30, Sodium Level 145, Potassium Level 4.9, Chloride Level 96L, Carbon Dioxide Level 37H, Anion Gap 12, Blood Urea Nitrogen 24H, Creatinine 1.30, Estimat Glomerular Filtration Rate 56, BUN/Creatinine Ratio 18, Glucose Level 138H, Lactic Acid Level 0.62, Calcium Level 8.9, Corrected Calcium 9.4, Total Bilirubin 0.3, Aspartate Amino Transf (AST/SGOT) 28, Alanine Aminotransferase (ALT/SGPT) 32, Alkaline Phosphatase 92, Troponin I 0.042H, C-Reactive Protein High Sensitivity 1.30H, B-Type Natriuretic Peptide 464.4H, Total Protein 7.1, Albumin 3.4 07/14/19 22:20: Blood Gas Puncture Site LEFT RADIAL, Blood Gas Patient Temperature 36.9, Arterial Blood pH 7.32*L, Arterial Blood Partial Pressure CO2 88*H, Arterial Blood Partial Pressure O2 103H, Arterial Blood HCO3 44*H, Arterial Blood Total CO2 46.4H, Arterial Blood Oxygen Saturation 98, Arterial Blood Base Excess 16.8H , Neil Test POSITIVE, Blood Gas Ventilator Setting YES, Blood Gas Inspired Oxygen 45% BIPAP 07/15/19 03:05: White Blood Count 8.6, Red Blood Count 3.07L, Hemoglobin 8.4L, Hematocrit 29L, Mean Corpuscular Volume 95, Mean Corpuscular Hemoglobin 27, Mean Corpuscular Hemoglobin Concent 29L, Red Cell Distribution Width 16.7H, Platelet Count 159, Mean Platelet Volume 9.7, Neutrophils (%) (Auto) 70, Lymphocytes (%) (Auto) 19, Monocytes (%) (Auto) 9, Eosinophils (%) (Auto) 2, Basophils (%) (Auto) 0, Neutrophils # (Auto) 6.0, Lymphocytes # (Auto) 1.6, Monocytes # (Auto) 0.8, Eosinophils # (Auto) 0.2, Basophils # (Auto) 0.0, Sodium Level 145, Potassium Level 4.1, Chloride Level 98, Carbon Dioxide Level 39H, Anion Gap 8, Blood Urea Nitrogen 24H, Creatinine 1.09, Estimat Glomerular Filtration Rate > 60, BUN/Creatinine Ratio 22, Glucose Level 75, Calcium Level 8.7, Troponin I 0.042H, Phosphorus Level 3.0, Magnesium Level 1.8 07/15/19 03:30: Blood Gas Puncture Site RIGHT RADIAL, Blood Gas Patient Temperature 36.1, Arterial Blood pH 7.42, Arterial Blood Partial Pressure CO2 69H, Arterial Blood Partial Pressure O2 65L, Arterial Blood HCO3 45*H, Arterial Blood Total CO2 47.0H, Arterial Blood Oxygen Saturation 95, Arterial Blood Base Excess 18.9H, Neil Test POSITIVE, Blood Gas Ventilator Setting NO, Blood Gas Inspired Oxygen 30% BIPAP 07/15/19 09:20: Troponin I 0.044H 07/15/19 15:57: Glucometer 116H Microbiology 07/14/19 Blood Culture - Preliminary, Resulted No growth 07/14/19 Influenza Types A,B Antigen (JENNY) - Final, Complete A/P-Cardiology Assessment/Admission Diagnosis Recurrent GI bleeds - scope per Dr. Gaytan on 06/28/19: Colon Polyps Internal hemorrhoids; Gastritis ; Hiatal hernia. Endoscopy of Jul 11, 2019 at [facility] showed sigmoid and ascending colon ulcer, nonbleeding (per D/C summary by Dr. Stack) Multifactorial shortness of breath: ac exac of COPD, severe anemia, obesity- hypoventilation, ac on ch diastolic CHF Anemia d/t GI bleed Echo of 01/04/19 showed LVEF 65-70%, mod conc LVH, grade 1 gastelum dysfunction of LV, mod to sev enlargement of LA, PASP 45-[address] mmHg[address] Michaud at [facility] in [place] on Jul 08, 2019 shows LVEF 60%. Bilat atrial enlargement. LVH. Mild MR and TR. Aortic valve sclerosis without stenosis; mod to severe AoR. PASP 53 mmHg. Hemoptysis during hospitalization of Jun 2019, small qty, managed by the Med Svce. Bronchoscopy on 07/03/19 did not indicate any active bleed or inflammation Ac exac of COPD due to pneumonia -management per medical/pulmonary services Has h/o COPD due to previous tobacco use OAC with Eliquis - holding due to recurrent GI bleeds Ac on ch diastolic CHF Ac renal insuff, probably due to diuretics and questionable occult blood loss (worsening anemia) Sinus node dysfunction: presentation with PAF in 2015 that was treated with elec cardioversion HTN - not well controlled Mild to moderate CAD on coronary angiography in 2010 Obesity with obesity-hypoventilation, TERE, and pulm hypertension. PASP was 60-65 mmHg on echo of 2015; 45-50 mmHg on echo of 01/04/19 TERE, treated with BiPAP Marijuana use (urine test positive in January 2019) Chronic narcotic use d/t chronic back and joint pain Chronic tobacco use that he quit in 2017 GERD Discussion and Recomendations Records from [facility] reviewed Complex management issue Recurrent GI bleeds, results of multiple endoscopies as note above - Dr. Gaytan consulted Transfuse 2 units PRBC PAF for which OAC with Eliquis has been advised, however, d/t multiple GI bleeds requiring multiple transfusions he is not a suitable candidate at this time for OAC. We will reduce Lovenox to DVT prophylaxis dosing d/t recurrent GI bleed We advise further w/u for source of bleeding be done expediently so that stroke prophylaxis be reinstituted Eval for GI bleed BP is not well controlled - we will increase his BB and Norvasc We will add Pepcid to his regimen Management of pneumonia and COPD is with pulmonary services Monitor lab closely Further recs will be based on his hospital course We would like to thank Medical Services for this consult Clinical Quality Measures DVT/VTE Risk/Contraindication: Risk Factor Score Per Nursin RFS Level Per Nursing on Admit: 4+=Very High Contraindications-Pharm: Other *list below* PATSY SERVIN MD FACP FACC CCDS Jul 15, 2019 17:31 POS
[2019-07-15] MEDS: amLODIPine 5 MG (NORVASC) TAB PO SCH (20:20)
[2019-07-15] MEDS: ENOXAPARIN 40 MG/0.4 ML (LOVENOX) SYR SC SCH (21:00)
[2019-07-15] MEDS: meTOproloL SUCCINATE 50 MG (TOPROL XL) TAB PO SCH (21:24)
[2019-07-15] MEDS: FAMOTIDINE 20 MG (PEPCID) TABLET PO SCH (21:24)
[2019-07-16] VITALS: BP 143/63
[2019-07-16] MEDS: RT-ALBUTEROL/IPRATROPIUM 3 ML (DUONEB) VIAL IH SCH ×5 (01:31→21:43)
[2019-07-16 04:00] VITALS: BP 154/68
--- NOTE | 2019-07-16 05:24 | Pulmonary Progress Note ---
MARY SEGURA MED STUDENT 07/16/19 0524: Subjective Date Seen by a Provider: Jul 16, 2019 Time Seen by a Provider: 06:36 Subjective/Events-last exam No acute events overnight. Patient states that his shortness of breath has improved. He states that his cough has become more productive, which is still white in color. He denies any fever, chills, rectal bleeding, dark stools, nausea, vomiting and abdominal pain. Sepsis Event Evaluation Height, Weight, BMI Height: 5'10.00" Weight: 348lbs. 6.0oz. [id number]; 46.00 BMI Method:Stated Focused Exam Lactate Level 07/14/19 20:48: Lactic Acid Level 0.62 Exam Exam Vital Signs Date Time Temp Pulse Resp B/P (MAP) Pulse Ox O2 Delivery O2 Flow Rate FiO2 07/16/19 01:31 65 13 95 40.00 07/16/19 01:00 56 07/16/19 00:00 37.0 59 20 143/63 (89) 96 NIV CPAP 07/15/19 22:43 70 21 98 40.00 07/15/19 21:52 73 20 173/60 94 Nasal Cannula 4.00 07/15/19 21:00 Nasal Cannula 4.00 07/15/19 20:38 37.1 68 20 175/60 (98) 95 Nasal Cannula 4.00 07/15/19 19:40 94 Nasal Cannula 4.00 07/15/19 19:00 68 07/15/19 18:49 37.0 68 20 157/69 95 4.00 07/15/19 18:34 37.0 68 20 151/67 96 Nasal Cannula 4.00 07/15/19 18:03 37.0 69 20 178/61 96 Nasal Cannula 4.00 07/15/19 16:54 Nasal Cannula 4.00 07/15/19 16:40 37.0 71 20 158/57 (90) 92 Nasal Cannula 4.00 07/15/19 15:19 37.6 74 139/56 95 Nasal Cannula 07/15/19 14:45 36.8 81 189/70 92 Nasal Cannula 4.00 07/15/19 14:22 94 Nasal Cannula 4.00 07/15/19 13:00 81 07/15/19 12:30 84 30 166/62 (96) 97 Nasal Cannula 4.00 07/15/19 09:33 Nasal Cannula 4.00 07/15/19 09:15 95 Nasal Cannula 3.00 07/15/19 09:00 66 163/58 (93) 96 NIV Bilevel 30.00 07/15/19 08:20 97 Nasal Cannula 4.00 07/15/19 08:00 65 12 166/63 (97) 96 NIV Bilevel 30.00 07/15/19 07:19 66 18 96 30.00 07/15/19 07:00 70 07/15/19 07:00 70 23 182/65 (104) 100 NIV Bilevel 30.00 07/15/19 06:00 64 25 160/56 (90) 96 NIV Bilevel 30.00 I & O 07/16/19 07:00 Intake Total 1520 ml Output Total 5325 ml Balance -3805 ml Height & Weight Height: 5'10.00" Weight: 348lbs. 6.0oz. 158.142821qn; 46.00 BMI Method:Stated General Appearance: No Apparent Distress, Chronically ill, Obese HEENT: PERRL/EOMI Neck: Normal Inspection, Supple Respiratory: Chest Non Tender, No Respiratory Distress, Decreased Breath Sounds Cardiovascular: Regular Rate, Rhythm, Normal Peripheral Pulses (Radial b/l), Other (3+ edema in LE) Capillary Refill: Less Than 3 Seconds Peripheral Pulses: 2+ Radial Pulses (R), 2+ Radial Pulses (L) Gastrointestinal: normal bowel sounds, soft, tenderness (mild tenderness to palpation of LLQ) Extremity: Pedal Edema, Other (Hematoma formation on Left anterior tibia that patient says is nonchanging. ) Neurologic/Psychiatric: Alert, Oriented x3, No Motor/Sensory Deficits Skin: Normal Color, Warm/Dry Lymphatic: No Adenopathy Results Lab Laboratory Tests 07/14/19 20:48 07/15/19 03:05 Radiology Chest Xray 07/15/19 IMPRESSION: Congestive heart failure with small right pleural effusion. No appreciable change from the previous day. Assessment/Plan Assessment/Plan Acute on chronic respiratory failure with hypoxia -Recurrent hospitalizations -On BiPAP 30% O2 -Obtain records from recent [facility] hospitalization -Duoneb RT Q4hr -Proventil Q4PRN -Pt has home vent to mask already COPD exacerbation -Roflumilast 500mcg -Duonebs CHF -Elevated BNP 464.4 -per cards, recent echo in [place] LVEF 60% and PASP 53mmHG -Received bumex 2mg IV X 1 on 07/15/19 -Received furosemide 40mg x1 on 07/15/19 -Monitor electrolytes - I&Os 07/15/19 I: 1523 O: 6325 T: -4805 AFib RVR -Currently Eliquis is on hold secondary to GIB HTN -Lisinopril 10mg daily -Hydralazine 10mg when SBP >160 HLD -Atorvastatin 10mg daily Recent Hx of GI bleed -Monitor H&H -Received 2 units Leukocyte red-pRBCs07/15/19 -Surgery consulted JHON FORREST DO 07/16/19 0749: Subjective Subjective/Events-last exam PT feels better. He is currently on BiPAP secondary to TERE. Exam Exam General Appearance: No Apparent Distress, Chronically ill, Obese HEENT: PERRL/EOMI Neck: Normal Inspection, Supple Respiratory: Chest Non Tender, No Respiratory Distress, Decreased Breath Sounds Cardiovascular: Regular Rate, Rhythm Capillary Refill: Less Than 3 Seconds Gastrointestinal: normal bowel sounds, soft, tenderness (mild tenderness to palpation of LLQ) Extremity: Pedal Edema Neurologic/Psychiatric: Alert, Oriented x3, No Motor/Sensory Deficits Skin: Normal Color, Warm/Dry Lymphatic: No Adenopathy Assessment/Plan Assessment/Plan Acute on chronic respiratory failure with hypoxia -Recurrent hospitalizations -On BiPAP 30% O2 -Obtain records from recent [facility] hospitalization -Duoneb RT Q4hr -Proventil Q4PRN -Pt has home vent to mask already -Give 2mg of bumex x 1 -Repeat labs COPD exacerbation -Roflumilast 500mcg -Duonebs CHF -Elevated BNP 464.4 -per cards, recent echo in [place] LVEF 60% and PASP 53mmHG -Received bumex 2mg IV X 1 on 07/15/19 -Received furosemide 40mg x1 on 07/15/19 -Monitor electrolytes - I&Os 07/15/19 I: 1523 O: 6325 T: -4805 AFib RVR -Currently Eliquis is on hold secondary to GIB HTN -Lisinopril 10mg daily -Hydralazine 10mg when SBP >160 HLD -Atorvastatin 10mg daily Recent Hx of GI bleed -Monitor H&H -Received 2 units Leukocyte red-pRBCs07/15/19 -Surgery consulted Supervisory-Addendum Brief Verification & Attestation Participated in pt care: history Personally performed: exam, history Care discussed with: Medical Student Procedures: n/a Verification and Attestation of Medical Student E/M Service A medical student performed and documented this service in my presence. I reviewed and verified all information documented by the medical student and made modifications to such information, when appropriate. I personally performed the physical exam and medical decision making. Jhon Forrest, Jul 16, 2019,07:49 MARY SEGURA MED STUDENT Jul 16, 2019 05:24 JHON MATSON DO Jul 16, 2019 07:49 POS
[2019-07-16 06:20] LABS: BUN/CREATININE RATIO 24; CALCIUM 8.7 MG/DL (8.5-10.1); CARBON DIOXIDE 43 MMOL/L (21-32); CHLORIDE 93 MMOL/L (98-107); CREATININE SERUM 0.89 MG/DL (0.60-1.30); GFR ESTIMATED > 60; GLUCOSE 62 MG/DL (70-105); PHOSPHORUS 3.3 MG/DL (2.3-4.7); POTASSIUM 3.9 MMOL/L (3.6-5.0); SODIUM 143 MMOL/L (135-145)
[2019-07-16] MEDS: inSUlin ASPART (NovoLOG) 1 UNIT/0.01 ML (CHARGE PER UNIT) SC SCH ×4 (06:26→20:33)
[2019-07-16] MEDS: MULTIVIT W/MINERALS TAB (THERAGRAN M) PO SCH (06:27)
[2019-07-16] MEDS: CYANOCOBALAMIN 1,000 MCG (VITAMIN B-12) TABLET PO SCH (06:27)
[2019-07-16] MEDS ORDERED: BUMETANIDE 1 MG/4 ML (BUMEX) VIAL IV ONE (07:45)
--- NOTE | 2019-07-16 07:55 | Diagnostic Imaging Report ---
INDICATION: Dyspnea. COMPARISON: 07/15/2019 FINDINGS: 2 frontal radiographic views of the chest were obtained and show interval increase in right-sided effusion and associated airspace opacities within right mid and lower lung field. There is no large effusion on the left. No pneumothorax is identified on either side. Cardiac silhouette is partially obscured, but does appear to be enlarged. Pulmonary vasculature appears to be within normal limits. Osseous structures show no gross acute abnormalities. IMPRESSION: 1. Interval increase in right-sided effusion with associated atelectasis and/or infiltrate. 2. Cardiomegaly. Dictated by: Dictated on workstation # [id number]
--- NOTE | 2019-07-16 07:55 | Progress Note ---
Subjective Time Seen by a Provider: 07:51 Subjective/Events-last exam Patient is feeling better today. Patient not short of breath. Patient received blood yesterday. Patient legs still swelling. Patient did not lose any weight. Focused Exam Lactate Level 07/14/19 20:48: Lactic Acid Level 0.62 Objective Exam Vital Signs Date Time Temp Pulse Resp B/P (MAP) Pulse Ox O2 Delivery O2 Flow Rate FiO2 07/16/19 07:16 52 15 98 40.00 07/16/19 04:00 36.4 57 24 154/68 (96) 99 NIV CPAP 07/16/19 01:31 65 13 95 40.00 07/16/19 01:00 56 07/16/19 00:00 37.0 59 20 143/63 (89) 96 NIV CPAP 07/15/19 22:43 70 21 98 40.00 07/15/19 21:52 73 20 173/60 94 Nasal Cannula 4.00 07/15/19 21:00 Nasal Cannula 4.00 07/15/19 20:38 37.1 68 20 175/60 (98) 95 Nasal Cannula 4.00 07/15/19 19:40 94 Nasal Cannula 4.00 07/15/19 19:00 68 07/15/19 18:49 37.0 68 20 157/69 95 4.00 07/15/19 18:34 37.0 68 20 151/67 96 Nasal Cannula 4.00 07/15/19 18:03 37.0 69 20 178/61 96 Nasal Cannula 4.00 07/15/19 16:54 Nasal Cannula 4.00 07/15/19 16:40 37.0 71 20 158/57 (90) 92 Nasal Cannula 4.00 07/15/19 15:19 37.6 74 139/56 95 Nasal Cannula 07/15/19 14:45 36.8 81 189/70 92 Nasal Cannula 4.00 07/15/19 14:22 94 Nasal Cannula 4.00 07/15/19 13:00 81 07/15/19 12:30 84 30 166/62 (96) 97 Nasal Cannula 4.00 07/15/19 09:33 Nasal Cannula 4.00 07/15/19 09:15 95 Nasal Cannula 3.00 07/15/19 09:00 66 163/58 (93) 96 NIV Bilevel 30.00 07/15/19 08:20 97 Nasal Cannula 4.00 07/15/19 08:00 65 12 166/63 (97) 96 NIV Bilevel 30.00 I & O 07/16/19 07:00 Intake Total 1920 ml Output Total 6075 ml Balance -4155 ml Capillary Refill : Less Than 3 SecondsLess Than 3 Seconds General Appearance: No Apparent Distress, WD/WN HEENT: Normal ENT Inspection Neck: Full Range of Motion, Normal Inspection Respiratory: No Accessory Muscle Use, No Respiratory Distress, Decreased Breath Sounds Cardiovascular: Regular Rate, Rhythm, No Murmur Gastrointestinal: non tender, soft Extremity: Pedal Edema Results Lab Laboratory Tests 07/16/19 05:15 Laboratory Tests 07/15/19 09:20: Troponin I 0.044H 07/15/19 15:57: Glucometer 116H 07/15/19 20:50: Glucometer 185H 07/16/19 05:15: Sodium Level 143, Potassium Level 3.9, Chloride Level 93L, Carbon Dioxide Level 43H, Anion Gap 7, Blood Urea Nitrogen 21H, Creatinine 0.89, Estimat Glomerular Filtration Rate > 60, BUN/Creatinine Ratio 24, Glucose Level 62L, Calcium Level 8.7, Phosphorus Level 3.3, B-Type Natriuretic Peptide 416.1H 07/16/19 05:34: Glucometer 66L Microbiology 07/14/19 Blood Culture - Preliminary, Resulted No growth 07/14/19 Influenza Types A,B Antigen (JENNY) - Final, Complete Assessment/Plan Assessment/Plan Assess & Plan/Chief Complaint COPD with acute exacerbation. Congestive heart failure. Pedal edema. Acute respiratory failure. History of atrial fibrillation. Clinical Quality Measures Admission Status Admission Dx COPD exacerbation. CHF. Minimally elevated troponin 1. Diabetes. Gastric polyps recently removed. Anemia. Coronary artery disease. Hyperlipidemia. DVT/VTE Risk/Contraindication: Risk Factor Score Per Nursin RFS Level Per Nursing on Admit: 4+=Very High Contraindications-Pharm: Other *list below* DANITA TEE DO Jul 16, 2019 07:55 POS
[2019-07-16 08:00] VITALS: BP 160/65
[2019-07-16] MEDS ORDERED: KCL 20 MEQ TAB (K-DUR) PO ONE (08:00)
[2019-07-16] MEDS: FAMOTIDINE 20 MG (PEPCID) TABLET PO SCH ×2 (08:08→20:16)
[2019-07-16] MEDS: lisINopril 10 MG (PRINIVIL) TABLET PO SCH (08:08)
[2019-07-16] MEDS: amLODIPine 5 MG (NORVASC) TAB PO SCH ×2 (08:08→20:17)
[2019-07-16] MEDS: AMIODARONE 200 MG (CORDARONE) TAB PO SCH (08:08)
[2019-07-16] MEDS: meTOproloL SUCCINATE 50 MG (TOPROL XL) TAB PO SCH ×2 (08:08→20:16)
[2019-07-16] MEDS: VITAMIN D3 1,000 UNITS (CHOLECALCIFEROL) TABLET PO SCH (08:08)
[2019-07-16] MEDS: PREGABALIN 150 MG (LYRICA) CAPSULE PO SCH ×2 (08:09→20:17)
[2019-07-16] MEDS: DULoxetine 30 MG (CYMBALTA) CAP PO SCH ×2 (08:09→20:16)
[2019-07-16] MEDS: PANTOPRAZOLE 40 MG (PROTONIX) TAB PO SCH (08:09)
[2019-07-16] MEDS: HYDROcodone/APAP 5 MG/325 MG (LORTAB) TAB PO PRN ×2 (08:10→15:20)
[2019-07-16] MEDS: SILDENAFIL 20 MG (REVATIO) TAB NON-FORMULARY PO SCH ×3 (08:11→20:17)
[2019-07-16] MEDS: ENOXAPARIN 40 MG/0.4 ML (LOVENOX) SYR SC SCH ×2 (08:11→20:17)
[2019-07-16] MEDS: ROFLUMILAST 500 MCG TAB (DALIRESP) PO SCH (08:16)
[2019-07-16] MEDS: ASPIRIN 81 MG CHEW (CHILDREN'S ASA) PO SCH (08:16)
[2019-07-16] MEDS: busPIRone 10 MG (BUSPAR) TAB PO SCH ×2 (08:17→20:16)
--- NOTE | 2019-07-16 08:29 | Progress Note - Cardiology ---
Cardiology SOAP Progress Note Subjective: Sitting up in a chair at the bedside. States he feels his breathing is better today. LE is improved. No c/o CP, palpitations, syncope or near syncope. Objective: I&O/Vital Signs 07/16/19 07/16/19 07/16/19 07/16/19 04:00 06:47 07:16 08:00 Temp 36.4 36.6 Pulse 57 53 52 63 Resp 24 15 22 B/P (MAP) 154/68 (96) 160/65 (96) Pulse Ox 99 98 94 O2 Delivery NIV CPAP Nasal Cannula O2 Flow Rate 40.00 4.00 07/16/19 07/16/19 07/16/19 07/16/19 09:00 11:25 12:00 12:42 Temp 36.6 Pulse 60 58 Resp 22 B/P (MAP) 161/70 (100) Pulse Ox 94 97 94 O2 Delivery Nasal Cannula Nasal Cannula Nasal Cannula O2 Flow Rate 4.00 4.00 4.00 07/16/19 15:07 Pulse Ox 94 O2 Delivery Nasal Cannula O2 Flow Rate 4.00 07/16/19 00:00 Intake Total 1520 ml Output Total 5325 ml Balance -3805 ml Weight (Pounds): 348 Weight (Ounces): 6.0 Weight (Calculated Kilograms): 158.277701 Constitutional: AAO x 3, well-developed, well-nourished Respiratory: No accessory muscle use, No respiratory distress; chest expansion is symmetric, chest is bilaterally symmetric, other (fair air entry; frequent lose cough) Cardiovascular: regular rate-rhythm, S1 and S2 Gastrointestional: soft, round, audible bowel sounds Extremities: other (mod bilat LE swelling) Neurologic/Psychiatric: alert, grossly intact Skin: rash on exposed areas (scattered, red, raised rash to upper torso); No ulcerations on exposed areas Results/Procedures: Labs Laboratory Tests 07/15/19 15:57: Glucometer 116H 07/15/19 20:50: Glucometer 185H 07/16/19 05:15: Sodium Level 143, Potassium Level 3.9, Chloride Level 93L, Carbon Dioxide Level 43H, Anion Gap 7, Blood Urea Nitrogen 21H, Creatinine 0.89, Estimat Glomerular Filtration Rate > 60, BUN/Creatinine Ratio 24, Glucose Level 62L, Calcium Level 8.7, Phosphorus Level 3.3, B-Type Natriuretic Peptide 416.1H 07/16/19 05:34: Glucometer 66L 07/16/19 09:00: Stool Occult Blood Immunoassay POSITIVEH 07/16/19 09:35: White Blood Count 9.3, Red Blood Count 3.59L, Hemoglobin 9.9L, Hematocrit 33L, Mean Corpuscular Volume 92, Mean Corpuscular Hemoglobin 28, Mean Corpuscular Hemoglobin Concent 30L, Red Cell Distribution Width 17.7H, Platelet Count 167, Mean Platelet Volume 9.2, Neutrophils (%) (Auto) 77H, Lymphocytes (%) (Auto) 12, Monocytes (%) (Auto) 9, Eosinophils (%) (Auto) 2, Basophils (%) (Auto) 0, Neutrophils # (Auto) 7.2, Lymphocytes # (Auto) 1.1, Monocytes # (Auto) 0.8, Eosinophils # (Auto) 0.2, Basophils # (Auto) 0.0, Phosphorus Level 3.2, Magnesium Level 1.7, B-Type Natriuretic Peptide 457.8H 07/16/19 10:56: Glucometer 111H 07/16/19 15:40: Lab Scanned Report Transfusion Reaction Form Microbiology 07/14/19 Blood Culture - Preliminary, Resulted No growth 07/15/19 Gram Stain - Final, Resulted 07/15/19 Sputum Culture - Preliminary, Resulted Usual upper respiratory analilia Laboratory Tests 07/14/19 20:48 07/15/19 03:05 07/16/19 05:15 07/16/19 09:35 Procedures NAME: [facility] REC#: [id number] PT STATUS: ADM IN : 1955 PHYSICIAN: JHON STEPHENSON DO ADMIT DATE: 07/14/19 Draft Date of Exam:07/16/19 CHEST 1 VIEW, AP/PA ONLY INDICATION: Dyspnea. COMPARISON: 07/15/2019 FINDINGS: 2 frontal radiographic views of the chest were obtained and show interval increase in right-sided effusion and associated airspace opacities within right mid and lower lung field. There is no large effusion on the left. No pneumothorax is identified on either side. Cardiac silhouette is partially obscured, but does appear to be enlarged. Pulmonary vasculature appears to be within normal limits. Osseous structures show no gross acute abnormalities. IMPRESSION: 1. Interval increase in right-sided effusion with associated atelectasis and/or infiltrate. 2. Cardiomegaly. Dictated on workstation # [id number] Dict: 07/16/19 0740 Trans: 07/16/19 0754 [facility] [id number] Interpreted by: RICK CARPIO MD : Colon Polyps Internal hemorrhoids; Gastritis ; Hiatal hernia. Endoscopy of Jul 11, 2019 at [facility] showed sigmoid and ascending colon ulcer, nonbleeding (per D/C summary by Dr. Stack) Multifactorial shortness of breath: ac exac of COPD, severe anemia, obesity-hypoventilation, ac on diastolic CHF Anemia d/t GI bleed, requiring transfusions Echo of 01/04/19 showed LVEF 65-70%, mod conc LVH, grade 1 gastelum dysfunction of LV, mod to sev enlargement of LA, PASP 45-50 mmHg[address] Michaud at [facility] in [place] on Jul 08, 2019 shows LVEF 60%. Bilat atrial enlargement. LVH. Mild MR and TR. Aortic valve sclerosis without stenosis; mod to severe AoR. PASP 53 mmHg. Hemoptysis during hospitalization of Jun 2019, small qty, managed by the Med S[facility]. Bronchoscopy on 07/03/19 did not indicate any active bleed or inflammation Ac exac of COPD due to pneumonia -management per medical/pulmonary services Has h/o COPD due to previous tobacco use OAC with Eliquis - holding due to recurrent GI bleeds Ac on diastolic CHF Sinus node dysfunction: presentation with PAF in 2015 that was treated with elec cardioversion HTN - not well controlled Mild to moderate CAD on coronary angiography in 2010 Obesity with obesity-hypoventilation, TERE, and pulm hypertension. PASP was 60-65 mmHg on echo of 2015; 45-50 mmHg on echo of 01/04/19 Marijuana use (urine test positive in January 2019) Chronic narcotic use d/t chronic back and joint pain Chronic tobacco use that he quit in 2016 GERD Plan: Complex management issue Recurrent GI bleeds, results of multiple endoscopies as note above - no scope advised at this time per Dr. Gaytan Post transfusion of 2 units PRBC - repeat CBC pending PAF for which OAC with Eliquis has been advised, however, d/t multiple GI bleeds requiring multiple transfusions he is not a suitable candidate at this time for OAC Continued reduced Lovenox to DVT prophylaxis dosing d/t recurrent GI bleed BP is improved Management of pneumonia and COPD is with pulmonary services Monitor lab closely Physician Assessment Physician Assessment Shortness of breath modestly improved. No cp or palp or syncope Lungs: fair air entry, diminished at the based, prolonged exp Cor: reg Ext: no c/c; chronic mod edema A&R * As documented in our note above that I updated (italics) and as noted below * Hold Eliquis for now (see reasons described above) * Monitor labs PIEDAD GOEL [employer] Jul 16, 2019 08:29 PATSY ANTOINE MD [facility] CCDJul 16, 2019 15:44 POS
[2019-07-16] MEDS ORDERED: FUROSEMIDE 40 MG/4 ML INJ (LASIX) IVP SCH (09:00)
[2019-07-16 09:48] LABS: BASOPHILS % (AUTO) 0 % (0-10); EOSINOPHILS # (AUTO) 0.2 10^3/uL (0.0-0.3); EOSINOPHILS % (AUTO) 2 % (0-10); HEMATOCRIT 33 % (40-54); HEMOGLOBIN 9.9 G/DL (13.3-17.7); LYMPHOCYTES # (AUTO) 1.1 X 10^3 (1.0-4.0); LYMPHOCYTES % (AUTO) 12 % (12-44); MEAN CORPUSCULAR HEMOGLOBIN 28 PG (25-34); MEAN CORPUSCULAR HGB CONC 30 G/DL (32-36); MEAN CORPUSCULAR VOLUME 92 FL (80-99); MEAN PLATELET VOLUME 9.2 FL (7.4-10.4); MONOCYTES # (AUTO) 0.8 X 10^3 (0.0-1.0); MONOCYTES % (AUTO) 9 % (0-12); NEUTROPHILS # (AUTO) 7.2 X 10^3 (1.8-7.8); NEUTROPHILS % (AUTO) 77 % (42-75); PLATELET COUNT 167 10^3/uL (130-400); RED CELL DISTRIBUTION WIDTH 17.7 % (10.0-14.5); WHITE BLOOD COUNT 9.3 10^3/uL (4.3-11.0)
[2019-07-16 09:50] LABS: HEMOGLOBIN 9.9 G/DL (13.3-17.7); MEAN PLATELET VOLUME 9.2 FL (7.4-10.4); RED CELL DISTRIBUTION WIDTH 17.7 % (10.0-14.5); WHITE BLOOD COUNT 9.3 10^3/uL (4.3-11.0)
[2019-07-16 10:20] LABS: MAGNESIUM 1.7 MG/DL (1.6-2.4); PHOSPHORUS 3.2 MG/DL (2.3-4.7)
[2019-07-16 12:00] VITALS: BP 161/70
[2019-07-16 16:00] VITALS: BP 154/67
--- NOTE | 2019-07-16 16:31 | Progress Note - Surgery ---
EFRAIN MONDRAGON MED STUDENT 07/16/19 1631: Subjective Date Seen by a Provider: Jul 16, 2019 Time Seen by a Provider: 07:30 Subjective/Events-last exam When seen today Mr. Lopez reports feeling better overall, his SOB has improved slightly. He has not had a BM today, so he does not know if he has had any blood in his stool, but he knows he has not had any since he was at [facility] recently. He does complain of hypogastric pain, which he reports is due to a hernia he has had for many years. He reports it is inferolateral to his umbilicus. I palpated the area and did not note a mass, but he reported pain on palpation. No other complaints. Review of Systems General: No Chills, No Other (denies fever) HEENT: No Sinus Congestion, No Post Nasal Drip, No Sore Throat Pulmonary: Dyspnea (improved); No Cough Cardiovascular: Edema; No: Chest Pain, Palpitations Gastrointestinal: Abdominal Pain (lower abdomen, intermittent and chronic, relates to hernia); No: Nausea Genitourinary: No Dysuria, No Frequency, No Hematuria Neurological: No: Weakness, Numbness Focused Exam Lactate Level 07/14/19 20:48: Lactic Acid Level 0.62 Objective Exam Vital Signs Date Time Temp Pulse Resp B/P (MAP) Pulse Ox O2 Delivery O2 Flow Rate FiO2 07/16/19 15:07 94 Nasal Cannula 4.00 07/16/19 12:42 58 07/16/19 12:00 36.6 60 22 161/70 (100) 94 Nasal Cannula 4.00 07/16/19 11:25 97 Nasal Cannula 4.00 07/16/19 09:00 94 Nasal Cannula 4.00 07/16/19 08:00 36.6 63 22 160/65 (96) 94 Nasal Cannula 4.00 07/16/19 07:16 52 15 98 40.00 07/16/19 06:47 53 07/16/19 04:00 36.4 57 24 154/68 (96) 99 NIV CPAP 07/16/19 01:31 65 13 95 40.00 07/16/19 01:00 56 07/16/19 00:00 37.0 59 20 143/63 (89) 96 NIV CPAP 07/15/19 22:43 70 21 98 40.00 07/15/19 21:52 73 20 173/60 94 Nasal Cannula 4.00 07/15/19 21:00 Nasal Cannula 4.00 07/15/19 20:38 37.1 68 20 175/60 (98) 95 Nasal Cannula 4.00 07/15/19 19:40 94 Nasal Cannula 4.00 07/15/19 19:00 68 07/15/19 18:49 37.0 68 20 157/69 95 4.00 07/15/19 18:34 37.0 68 20 151/67 96 Nasal Cannula 4.00 07/15/19 18:03 37.0 69 20 178/61 96 Nasal Cannula 4.00 07/15/19 16:54 Nasal Cannula 4.00 07/15/19 16:40 37.0 71 20 158/57 (90) 92 Nasal Cannula 4.00 I & O 07/16/19 07:00 Intake Total 1920 ml Output Total 6075 ml Balance -4155 ml Capillary Refill : Less Than 3 SecondsLess Than 3 Seconds General Appearance: No Apparent Distress, Chronically ill, Obese Neck: Normal Inspection, Non Tender, Supple Respiratory: No Accessory Muscle Use, No Respiratory Distress, Crackles, Decreased Breath Sounds Cardiovascular: Regular Rate, Rhythm, Systolic Murmur Peripheral Pulses: 2+ Radial Pulses (R), 2+ Radial Pulses (L) Gastrointestinal: soft, tenderness (epigastric and hypogastric) Extremity: No Calf Tenderness, Pedal Edema Neurologic/Psychiatric: Alert, Oriented x3, Normal Mood/Affect Skin: Normal Color, Warm/Dry Lymphatic: No Adenopathy Results Lab Laboratory Tests 07/15/19 20:50: Glucometer 185H 07/16/19 05:15: Sodium Level 143, Potassium Level 3.9, Chloride Level 93L, Carbon Dioxide Level 43H, Anion Gap 7, Blood Urea Nitrogen 21H, Creatinine 0.89, Estimat Glomerular Filtration Rate > 60, BUN/Creatinine Ratio 24, Glucose Level 62L, Calcium Level 8.7, Phosphorus Level 3.3, B-Type Natriuretic Peptide 416.1H 07/16/19 05:34: Glucometer 66L 07/16/19 09:00: Stool Occult Blood Immunoassay POSITIVEH 07/16/19 09:35: White Blood Count 9.3, Red Blood Count 3.59L, Hemoglobin 9.9L, Hematocrit 33L, Mean Corpuscular Volume 92, Mean Corpuscular Hemoglobin 28, Mean Corpuscular Hemoglobin Concent 30L, Red Cell Distribution Width 17.7H, Platelet Count 167, Mean Platelet Volume 9.2, Neutrophils (%) (Auto) 77H, Lymphocytes (%) (Auto) 12, Monocytes (%) (Auto) 9, Eosinophils (%) (Auto) 2, Basophils (%) (Auto) 0, Neutrophils # (Auto) 7.2, Lymphocytes # (Auto) 1.1, Monocytes # (Auto) 0.8, Eosinophils # (Auto) 0.2, Basophils # (Auto) 0.0, Phosphorus Level 3.2, Magnesium Level 1.7, B-Type Natriuretic Peptide 457.8H 07/16/19 10:56: Glucometer 111H 07/16/19 15:40: Lab Scanned Report Transfusion Reaction Form 07/16/19 15:56: Glucometer 114H Microbiology 07/14/19 Blood Culture - Preliminary, Resulted No growth 07/15/19 Gram Stain - Final, Resulted 07/15/19 Sputum Culture - Preliminary, Resulted Usual upper respiratory analilia Assessment/Plan Assessment/Plan Assessment/Plan History of GI bleed Anemia Acute on chronic respiratory failure Monitor anemia, recently underwent transfusion. Monitor for recurrence of blood in stool. Clinical Quality Measures DVT/VTE Risk/Contraindication: Risk Factor Score Per Nursin RFS Level Per Nursing on Admit: 4+=Very High Contraindications-Pharm: Other *list below* JAIRON HA DO 07/16/19 1748: Subjective Time Seen by a Provider: 17:26 Subjective/Events-last exam Pt seen and examined, states he is feeling better. His main complaint is of the swelling in his legs. He denies melena or hematochezia and states breathing is ok. He thinks he has a hemorrhoid and has a "wart" he wants looked at on his right buttock. Assessment/Plan Assessment/Plan Assessment/Plan Anemia - s/p blood transfusion Edema/fluid overload Will assess pt for possible biopsy of right gluteal mass tomorrow; biopsy can be done either at bedside or may need to go to OR. Continue current care, pt state he is getting diuretics. Supervisory-Addendum Brief Verification & Attestation Participated in pt care: history, MDM, physical Personally performed: exam, history, MDM Care discussed with: Medical Student Procedures: n/a Verification and Attestation of Medical Student E/M Service A medical student performed and documented this service in my presence. I reviewed and verified all information documented by the medical student and made modifications to such information, when appropriate. I personally performed the physical exam and medical decision making. Jairon Ha, Jul 16, 2019,17:48 EFRAIN MONDRAGON MED STUDENT Jul 16, 2019 16:31 JAIRON SEGURA DO Jul 16, 2019 17:48 POS
[2019-07-16] MEDS: DICLOFENAC 1% GEL 100 GM (VOLTAREN) TUBE TOP SCH ×2 (17:11→20:18)
[2019-07-16 20:00] VITALS: BP 176/74
[2019-07-17] VITALS: BP 141/61
[2019-07-17] MEDS: RT-ALBUTEROL/IPRATROPIUM 3 ML (DUONEB) VIAL IH SCH ×6 (01:30→21:50)
[2019-07-17 04:00] VITALS: BP 145/71
[2019-07-17 05:20] LABS: BASOPHILS % (AUTO) 0 % (0-10); EOSINOPHILS # (AUTO) 0.2 10^3/uL (0.0-0.3); EOSINOPHILS % (AUTO) 2 % (0-10); HEMATOCRIT 31 % (40-54); HEMOGLOBIN 9.4 G/DL (13.3-17.7); LYMPHOCYTES # (AUTO) 1.5 X 10^3 (1.0-4.0); LYMPHOCYTES % (AUTO) 18 % (12-44); MEAN CORPUSCULAR HEMOGLOBIN 28 PG (25-34); MEAN CORPUSCULAR HGB CONC 30 G/DL (32-36); MEAN CORPUSCULAR VOLUME 92 FL (80-99); MEAN PLATELET VOLUME 9.5 FL (7.4-10.4); MONOCYTES # (AUTO) 0.7 X 10^3 (0.0-1.0); MONOCYTES % (AUTO) 9 % (0-12); NEUTROPHILS # (AUTO) 5.8 X 10^3 (1.8-7.8); NEUTROPHILS % (AUTO) 70 % (42-75); PLATELET COUNT 148 10^3/uL (130-400); RED CELL DISTRIBUTION WIDTH 16.9 % (10.0-14.5); WHITE BLOOD COUNT 8.3 10^3/uL (4.3-11.0)
[2019-07-17 05:44] LABS: BUN/CREATININE RATIO 17; CALCIUM 9.1 MG/DL (8.5-10.1); CARBON DIOXIDE 42 MMOL/L (21-32); CHLORIDE 93 MMOL/L (98-107); CREATININE SERUM 1.03 MG/DL (0.60-1.30); GFR ESTIMATED > 60; GLUCOSE 88 MG/DL (70-105); MAGNESIUM 1.8 MG/DL (1.6-2.4); PHOSPHORUS 3.1 MG/DL (2.3-4.7); POTASSIUM 4.2 MMOL/L (3.6-5.0); SODIUM 143 MMOL/L (135-145)
--- NOTE | 2019-07-17 05:45 | Pulmonary Progress Note ---
MARY SEGURA MED STUDENT 07/17/19 0545: Subjective Date Seen by a Provider: Jul 17, 2019 Time Seen by a Provider: 06:04 Subjective/Events-last exam Patient states that he is still experiencing shortness of breath. He states that he attempted to use his home BiPAP machine last night set to 20/7 with 5L O2, and he woke up feeling very short of breath. He switched back to the hospital BiPAPon 40% O2. He is currently on 4.5L and feels like he cannot catch his breath. His cough remains the same and it is still productive of white sputum. He denies fever, chills, and chest pain. He also denies any melena and hematochezia, however he reports blood on his toilet paper when he wiped yesterday. Sepsis Event Evaluation Height, Weight, BMI Height: 5'10.00" Weight: 348lbs. 6.0oz. 158.298448qj; 46.00 BMI Method:Stated Focused Exam Lactate Level 07/14/19 20:48: Lactic Acid Level 0.62 Exam Exam Vital Signs Date Time Temp Pulse Resp B/P (MAP) Pulse Ox O2 Delivery O2 Flow Rate FiO2 07/17/19 04:00 36.4 56 22 145/71 (95) 97 NIV Bilevel 40.00 07/17/19 02:52 64 16 98 40.00 07/17/19 01:31 60 20 97 40.00 07/17/19 01:00 59 07/17/19 00:50 NIV Bilevel 5.00 07/17/19 00:00 36.4 56 16 141/61 (87) 93 NIV CPAP 07/16/19 21:42 94 Nasal Cannula 4.00 07/16/19 21:00 Nasal Cannula 4.00 07/16/19 20:00 36.7 62 20 176/74 (108) 94 Nasal Cannula 4.00 07/16/19 19:00 61 07/16/19 17:56 94 Nasal Cannula 4.00 07/16/19 16:00 36.8 61 16 154/67 (96) 95 Nasal Cannula 4.00 07/16/19 15:07 94 Nasal Cannula 4.00 07/16/19 12:42 58 07/16/19 12:00 36.6 60 22 161/70 (100) 94 Nasal Cannula 4.00 07/16/19 11:25 97 Nasal Cannula 4.00 07/16/19 09:00 94 Nasal Cannula 4.00 07/16/19 08:00 36.6 63 22 160/65 (96) 94 Nasal Cannula 4.00 07/16/19 07:16 52 15 98 40.00 07/16/19 06:47 53 I & O 07/17/19 07:00 Intake Total 2500 ml Output Total 2200 ml Balance 300 ml Height & Weight Height: 5'10.00" Weight: 348lbs. 6.0oz. 158.521496uz; 46.00 BMI Method:Stated General Appearance: No Apparent Distress, Chronically ill, Obese HEENT: PERRL/EOMI Neck: Normal Inspection, Non Tender, Supple Respiratory: No Accessory Muscle Use, No Respiratory Distress, Crackles, Decreased Breath Sounds Cardiovascular: Regular Rate, Rhythm, Systolic Murmur Capillary Refill: Less Than 3 Seconds Peripheral Pulses: 2+ Radial Pulses (R), 2+ Radial Pulses (L) Gastrointestinal: normal bowel sounds, soft, tenderness Extremity: No Calf Tenderness, Pedal Edema Neurologic/Psychiatric: Alert, Oriented x3, Normal Mood/Affect Skin: Normal Color, Warm/Dry Lymphatic: No Adenopathy Results Lab Laboratory Tests 07/16/19 05:15 07/16/19 09:35 07/17/19 05:00 Radiology 07/16/19 Chest X ray IMPRESSION: 1. Interval increase in right-sided effusion with associated atelectasis and/or infiltrate. 2. Cardiomegaly. 07/15/19 CTA IMPRESSION: No significant pulmonary embolus within the limits of the examination, though examination slightly limited as above. Prominence of the central pulmonary arteries with tortuosity of the pulmonary arteries is felt to relate to pulmonary artery hypertension. Slightly worsened moderate right and tiny left pleural effusions with increasing right-sided pulmonary infiltrate. Previously noted patchy opacities within the left lung have improved and nearly resolved. Developing small pericardial effusion. Bilateral kidneys appear stable from prior examinations with bilateral renal hypodensities and minimal perinephric fat stranding. Cardiomegaly. Bilateral gynecomastia. Additional findings as above. Assessment/Plan Assessment/Plan Acute on chronic respiratory failure with hypoxia -Recurrent hospitalizations -On BiPAP 30% O2 -Duoneb RT Q4hr -Proventil Q4PRN -Pt has home vent to mask already -Repeat labs and chest X ray COPD exacerbation -Roflumilast 500mcg -Duonebs -Sputum culture grew normal respiratory analilia CHF -Elevated BNP 464.4 -per cards, recent echo in [place] LVEF 60% and PASP 53mmHG -on sildenafil 20mg TID -Received bumex 2mg IV X 1 on 07/16/19 and 07/15/19 -Received furosemide 40mg x1 on 07/15/19 -Monitor electrolytes - I&Os 07/15/19 I: 2900 O: 2950 T: -50 AFib RVR -Currently Eliquis is on hold secondary to GIB HTN -Lisinopril 10mg daily -Hydralazine 10mg when SBP >160 HLD -Atorvastatin 10mg daily Recent Hx of GI bleed -Monitor H&H -Received 2 units Leukocyte red-pRBCs07/15/19 -Surgery consulted RAMANA FORREST DO 07/17/19 0652: Subjective Subjective/Events-last exam complains of SOB. Exam Exam General Appearance: No Apparent Distress, Chronically ill HEENT: PERRL/EOMI Neck: Normal Inspection, Non Tender, Supple Respiratory: No Accessory Muscle Use, No Respiratory Distress, Crackles, Decreased Breath Sounds Cardiovascular: Regular Rate, Rhythm, Systolic Murmur Gastrointestinal: normal bowel sounds, soft Extremity: No Calf Tenderness Neurologic/Psychiatric: Alert, Normal Mood/Affect Skin: Normal Color, Warm/Dry Lymphatic: No Adenopathy Assessment/Plan Assessment/Plan Acute on chronic respiratory failure with hypoxia -Recurrent hospitalizations -On BiPAP 30% O2 -Duoneb RT Q4hr -Proventil Q4PRN -Pt has home vent to mask already -Repeat labs and chest X ray COPD exacerbation -Roflumilast 500mcg -Duonebs -Sputum culture grew normal respiratory analilia Right loculated pleural effusion -Will plan for thoracentesis today -Await repeat CXR and chest US. CHF -Elevated BNP 464.4 -per cards, recent echo in [place] LVEF 60% and PASP 53mmHG -on sildenafil 20mg TID - D/C this is not group 1 pulmonary HTN -Received bumex 2mg IV X 1 on 07/16/19 and 07/15/19 -Received furosemide 40mg x1 on 07/15/19 -Monitor electrolytes - I&Os 07/15/19 I: 2900 O: 2950 T: -50 AFib RVR -Currently Barbra is on hold secondary to GIB HTN -Lisinopril 10mg daily -Hydralazine 10mg when SBP >160 HLD -Atorvastatin 10mg daily Recent Hx of GI bleed -Monitor H&H -Received 2 units Leukocyte red-pRBCs07/15/19 -Surgery consulted Supervisory-Addendum Brief Verification & Attestation Participated in pt care: history Personally performed: exam, history Care discussed with: Medical Student Procedures: n/a Verification and Attestation of Medical Student E/M Service A medical student performed and documented this service in my presence. I reviewed and verified all information documented by the medical student and made modifications to such information, when appropriate. I personally performed the physical exam and medical decision making. Ramana Forrest, Aug 06, 2019,12:57 MARY SEGURA MED STUDENT Jul 17, 2019 05:45 RAMANA MATSON DO Jul 17, 2019 06:52 POS
[2019-07-17] MEDS: inSUlin ASPART (NovoLOG) 1 UNIT/0.01 ML (CHARGE PER UNIT) SC SCH ×4 (05:56→21:24)
[2019-07-17] MEDS: CYANOCOBALAMIN 1,000 MCG (VITAMIN B-12) TABLET PO SCH (06:03)
[2019-07-17] MEDS: MULTIVIT W/MINERALS TAB (THERAGRAN M) PO SCH (06:03)
[2019-07-17 08:00] VITALS: BP 138/58
--- NOTE | 2019-07-17 08:01 | Progress Note - Surgery ---
EFRAIN MONDRAGON MED STUDENT 07/17/19 0801: Subjective Date Seen by a Provider: Jul 17, 2019 Time Seen by a Provider: 07:15 Subjective/Events-last exam Mr. Lopez feels about the same today as yesterday, reports his breathing hasn't improved but his swelling has. Denies having any blood in his stool. Continues to have periumbilical/hypogastric pain from hernia, which he chronically deals with. He is concerned about a mass on his R gluteal region that he reports has changed recently. Previously it was raised, reports it was like a mushroom with a stalk, but recently it changed so that there is no stalk. It is not flush with the skin, it is still raised. Review of Systems General: No Chills; Fatigue HEENT: No Sinus Congestion, No Sore Throat Pulmonary: Dyspnea, Cough (white sputum) Cardiovascular: Lt Headedness (mild, no more than usual); No: Chest Pain, Palpitations Gastrointestinal: Abdominal Pain; No: Nausea, Diarrhea, Constipation, Melena, Hematochezia Genitourinary: No Dysuria; Frequency (on diuretics); No Hematuria Neurological: Other (chronic nerve pain on R thigh that is managed); No: Numbness Focused Exam Lactate Level 07/14/19 20:48: Lactic Acid Level 0.62 Objective Exam Vital Signs Date Time Temp Pulse Resp B/P (MAP) Pulse Ox O2 Delivery O2 Flow Rate FiO2 07/17/19 06:54 69 07/17/19 04:00 36.4 56 22 145/71 (95) 97 NIV Bilevel 40.00 07/17/19 02:52 64 16 98 40.00 07/17/19 01:31 60 20 97 40.00 07/17/19 01:00 59 07/17/19 00:50 NIV Bilevel 5.00 07/17/19 00:00 36.4 56 16 141/61 (87) 93 NIV CPAP 07/16/19 21:42 94 Nasal Cannula 4.00 07/16/19 21:00 Nasal Cannula 4.00 07/16/19 20:00 36.7 62 20 176/74 (108) 94 Nasal Cannula 4.00 07/16/19 19:00 61 07/16/19 17:56 94 Nasal Cannula 4.00 07/16/19 16:00 36.8 61 16 154/67 (96) 95 Nasal Cannula 4.00 07/16/19 15:07 94 Nasal Cannula 4.00 07/16/19 12:42 58 07/16/19 12:00 36.6 60 22 161/70 (100) 94 Nasal Cannula 4.00 07/16/19 11:25 97 Nasal Cannula 4.00 07/16/19 09:00 94 Nasal Cannula 4.00 07/16/19 08:00 36.6 63 22 160/65 (96) 94 Nasal Cannula 4.00 I & O 07/17/19 07:00 Intake Total 2750 ml Output Total 3220 ml Balance -470 ml Capillary Refill : Less Than 3 SecondsLess Than 3 Seconds General Appearance: No Apparent Distress, Chronically ill, Obese Neck: Normal Inspection, Non Tender, Supple Respiratory: No Accessory Muscle Use, No Respiratory Distress, Crackles, Decreased Breath Sounds Cardiovascular: Regular Rate, Rhythm, Normal Peripheral Pulses, Systolic Murmur Peripheral Pulses: 2+ Dorsalis Pedis (R), 2+ Left Dors-Pedis (L), 2+ Radial Pulses (R), 2+ Radial Pulses (L) Gastrointestinal: normal bowel sounds, soft, tenderness (periumbilical/hypogastric pain) Extremity: No Calf Tenderness Neurologic/Psychiatric: Alert, Oriented x3, Normal Mood/Affect Skin: Normal Color, Warm/Dry, Other (raised lesion on R buttock) Lymphatic: No Adenopathy Results Lab Laboratory Tests 07/16/19 09:00: Stool Occult Blood Immunoassay POSITIVEH 07/16/19 09:35: White Blood Count 9.3, Red Blood Count 3.59L, Hemoglobin 9.9L, Hematocrit 33L, Mean Corpuscular Volume 92, Mean Corpuscular Hemoglobin 28, Mean Corpuscular Hemoglobin Concent 30L, Red Cell Distribution Width 17.7H, Platelet Count 167, Mean Platelet Volume 9.2, Neutrophils (%) (Auto) 77H, Lymphocytes (%) (Auto) 12, Monocytes (%) (Auto) 9, Eosinophils (%) (Auto) 2, Basophils (%) (Auto) 0, Neutrophils # (Auto) 7.2, Lymphocytes # (Auto) 1.1, Monocytes # (Auto) 0.8, Eosinophils # (Auto) 0.2, Basophils # (Auto) 0.0, Phosphorus Level 3.2, Magnesium Level 1.7, B-Type Natriuretic Peptide 457.8H 07/16/19 10:56: Glucometer 111H 07/16/19 15:40: Lab Scanned Report Transfusion Reaction Form 07/16/19 15:56: Glucometer 114H 07/16/19 20:32: Glucometer 121H 07/17/19 05:00: White Blood Count 8.3, Red Blood Count 3.38L, Hemoglobin 9.4L, Hematocrit 31L, Mean Corpuscular Volume 92, Mean Corpuscular Hemoglobin 28, Mean Corpuscular H emoglobin Concent 30L, Red Cell Distribution Width 16.9H, Platelet Count 148, Mean Platelet Volume 9.5, Neutrophils (%) (Auto) 70, Lymphocytes (%) (Auto) 18, Monocytes (%) (Auto) 9, Eosinophils (%) (Auto) 2, Basophils (%) (Auto) 0, Neutrophils # (Auto) 5.8, Lymphocytes # (Auto) 1.5, Monocytes # (Auto) 0.7, Eosinophils # (Auto) 0.2, Basophils # (Auto) 0.0, Sodium Level 143, Potassium Level 4.2, Chloride Level 93L, Carbon Dioxide Level 42H, Anion Gap 8, Blood Urea Nitrogen 18, Creatinine 1.03, Estimat Glomerular Filtration Rate > 60, BUN/Creatinine Ratio 17, Glucose Level 88, Calcium Level 9.1, Phosphorus Level 3.1, Magnesium Level 1.8, B-Type Natriuretic Peptide 447.8H Microbiology 07/14/19 Blood Culture - Preliminary, Resulted No growth 07/15/19 Gram Stain - Final, Resulted 07/15/19 Sputum Culture - Preliminary, Resulted Usual upper respiratory analilia Assessment/Plan Assessment/Plan Assessment/Plan CHF Anemia R gluteal mass R gluteal mass will be evaluated, possibly biopsied today. S/p transfusion, monitor anemia. Clinical Quality Measures DVT/VTE Risk/Contraindication: Risk Factor Score Per Nursin RFS Level Per Nursing on Admit: 4+=Very High Contraindications-Pharm: Other *list below* JAIRON HA DO 07/17/19 1227: Subjective Time Seen by a Provider: 12:11 Subjective/Events-last exam Pt seen and examined, no new complaints or changes. Objective Exam Skin: Other (raised lesion on R buttock, looks like skin tag) Assessment/Plan Assessment/Plan Assessment/Plan Gluteal mass does not need to be biopsied, looks benign. Pt was thankful it was evaluated. He has not had any more bleeding and Hg has remained stable. Supervisory-Addendum Brief Verification & Attestation Participated in pt care: history, MDM, physical Personally performed: exam, history, MDM Care discussed with: Medical Student Procedures: n/a Verification and Attestation of Medical Student E/M Service A medical student performed and documented this service in my presence. I reviewed and verified all information documented by the medical student and made modifications to such information, when appropriate. I personally performed the physical exam and medical decision making. Jairon Ha, Jul 17, 2019,12:27 EFRAIN MONDRAGON MED STUDENT Jul 17, 2019 08:01 JAIRON SEGURA DO Jul 17, 2019 12:27 POS
--- NOTE | 2019-07-17 08:11 | Progress Note ---
Subjective Time Seen by a Provider: 08:07 Subjective/Events-last exam Patient in short of breath last night area Chest x-ray showed pleural effusion worse yesterday. Patient have a thoracentesis on right side area Patient's BiPAP did not work good last night. Focused Exam Lactate Level 07/14/19 20:48: Lactic Acid Level 0.62 Objective Exam Vital Signs Date Time Temp Pulse Resp B/P (MAP) Pulse Ox O2 Delivery O2 Flow Rate FiO2 07/17/19 06:54 69 07/17/19 04:00 36.4 56 22 145/71 (95) 97 NIV Bilevel 40.00 07/17/19 02:52 64 16 98 40.00 07/17/19 01:31 60 20 97 40.00 07/17/19 01:00 59 07/17/19 00:50 NIV Bilevel 5.00 07/17/19 00:00 36.4 56 16 141/61 (87) 93 NIV CPAP 07/16/19 21:42 94 Nasal Cannula 4.00 07/16/19 21:00 Nasal Cannula 4.00 07/16/19 20:00 36.7 62 20 176/74 (108) 94 Nasal Cannula 4.00 07/16/19 19:00 61 07/16/19 17:56 94 Nasal Cannula 4.00 07/16/19 16:00 36.8 61 16 154/67 (96) 95 Nasal Cannula 4.00 07/16/19 15:07 94 Nasal Cannula 4.00 07/16/19 12:42 58 07/16/19 12:00 36.6 60 22 161/70 (100) 94 Nasal Cannula 4.00 07/16/19 11:25 97 Nasal Cannula 4.00 07/16/19 09:00 94 Nasal Cannula 4.00 I & O 07/17/19 07:00 Intake Total 2750 ml Output Total 3220 ml Balance -470 ml Capillary Refill : Less Than 3 SecondsLess Than 3 Seconds General Appearance: No Apparent Distress, WD/WN HEENT: Normal ENT Inspection Neck: Full Range of Motion, Normal Inspection Respiratory: No Accessory Muscle Use, No Respiratory Distress, Decreased Breath Sounds, Other (Short of breath with exertion) Cardiovascular: Regular Rate, Rhythm, No Murmur Gastrointestinal: non tender, soft Results Lab Laboratory Tests 07/16/19 09:35 07/17/19 05:00 Laboratory Tests 07/16/19 09:00: Stool Occult Blood Immunoassay POSITIVEH 07/16/19 09:35: White Blood Count 9.3, Red Blood Count 3.59L, Hemoglobin 9.9L, Hematocrit 33L, Mean Corpuscular Volume 92, Mean Corpuscular Hemoglobin 28, Mean Corpuscular Hemoglobin Concent 30L, Red Cell Distribution Width 17.7H, Platelet Count 167, Mean Platelet Volume 9.2, Neutrophils (%) (Auto) 77H, Lymphocytes (%) (Auto) 12, Monocytes (%) (Auto) 9, Eosinophils (%) (Auto) 2, Basophils (%) (Auto) 0, Neutrophils # (Auto) 7.2, Lymphocytes # (Auto) 1.1, Monocytes # (Auto) 0.8, Eosinophils # (Auto) 0.2, Basophils # (Auto) 0.0, Phosphorus Level 3.2, Magnesium Level 1.7, B-Type Natriuretic Peptide 457.8H 07/16/19 10:56: Glucometer 111H 07/16/19 15:40: Lab Scanned Report Transfusion Reaction Form 07/16/19 15:56: Glucometer 114H 07/16/19 20:32: Glucometer 121H 07/17/19 05:00: White Blood Count 8.3, Red Blood Count 3.38L, Hemoglobin 9.4L, Hematocrit 31L, Mean Corpuscular Volume 92, Mean Corpuscular Hemoglobin 28, Mean Corpuscular Hemoglobin Concent 30L, Red Cell Distribution Width 16.9H, Platelet Count 148, Mean Platelet Volume 9.5, Neutrophils (%) (Auto) 70, Lymphocytes (%) (Auto) 18, Monocytes (%) (Auto) 9, Eosinophils (%) (Auto) 2, Basophils (%) (Auto) 0, Neutrophils # (Auto) 5.8, Lymphocytes # (Auto) 1.5, Monocytes # (Auto) 0.7, Eosinophils # (Auto) 0.2, Basophils # (Auto) 0.0, Sodium Level 143, Potassium Level 4.2, Chloride Level 93L, Carbon Dioxide Level 42H, Anion Gap 8, Blood Urea Nitrogen 18, Creatinine 1.03, Estimat Glomerular Filtration Rate > 60, BUN/Creatinine Ratio 17, Glucose Level 88, Calcium Level 9.1, Phosphorus Level 3.1, Magnesium Level 1.8, B-Type Natriuretic Peptide 447.8H Microbiology 07/14/19 Blood Culture - Preliminary, Resulted No growth 07/15/19 Gram Stain - Final, Resulted 07/15/19 Sputum Culture - Preliminary, Resulted Usual upper respiratory analilia Assessment/Plan Assessment/Plan Assess & Plan/Chief Complaint COPD with acute exacerbation. Congestive heart failure. Pedal edema. Acute respiratory failure. History of atrial fibrillation.. . 07/17/19. Pleural effusion to have thoracentesis today. Congestive heart failure. COPD. Acute respiratory failure. History of atrial fibrillation Clinical Quality Measures Admission Status Admission Dx COPD exacerbation. CHF. Minimally elevated troponin 1. Diabetes. Gastric polyps recently removed. Anemia. Coronary artery disease. Hyperlipidemia. DVT/VTE Risk/Contraindication: Risk Factor Score Per Nursin RFS Level Per Nursing on Admit: 4+=Very High Contraindications-Pharm: Other *list below* DANITA TEE DO Jul 17, 2019 08:11 POS
--- NOTE | 2019-07-17 08:45 | NUR ---
Visit by Chaplain Indira Alexandra: Offered support to pt and his . Pt is Yarsani.
--- NOTE | 2019-07-17 09:10 | NUR ---
THORACENTESIS DONE BY DR STEPHENSON, 1400 RETURN, SPECIMEN TO LAB FOR TESTING, RAHEEL WELL
[2019-07-17] MEDS ORDERED: FUROSEMIDE 40 MG/4 ML INJ (LASIX) IVP NR (09:15)
[2019-07-17] MEDS: VITAMIN D3 1,000 UNITS (CHOLECALCIFEROL) TABLET PO SCH (09:16)
[2019-07-17] MEDS: amLODIPine 5 MG (NORVASC) TAB PO SCH ×2 (09:16→22:40)
[2019-07-17] MEDS: meTOproloL SUCCINATE 50 MG (TOPROL XL) TAB PO SCH ×2 (09:16→22:06)
[2019-07-17] MEDS: HYDROcodone/APAP 5 MG/325 MG (LORTAB) TAB PO PRN ×2 (09:16→14:25)
[2019-07-17] MEDS: DULoxetine 30 MG (CYMBALTA) CAP PO SCH ×2 (09:17→22:40)
[2019-07-17] MEDS: PREGABALIN 150 MG (LYRICA) CAPSULE PO SCH ×2 (09:17→22:43)
[2019-07-17] MEDS: PANTOPRAZOLE 40 MG (PROTONIX) TAB PO SCH (09:17)
[2019-07-17] MEDS: FAMOTIDINE 20 MG (PEPCID) TABLET PO SCH ×2 (09:17→22:40)
[2019-07-17] MEDS: busPIRone 10 MG (BUSPAR) TAB PO SCH ×2 (09:17→22:40)
[2019-07-17] MEDS: AMIODARONE 200 MG (CORDARONE) TAB PO SCH (09:17)
[2019-07-17] MEDS: lisINopril 10 MG (PRINIVIL) TABLET PO SCH (09:17)
[2019-07-17] MEDS: ASPIRIN 81 MG CHEW (CHILDREN'S ASA) PO SCH (09:17)
[2019-07-17] MEDS: ROFLUMILAST 500 MCG TAB (DALIRESP) PO SCH (09:17)
[2019-07-17] MEDS: DICLOFENAC 1% GEL 100 GM (VOLTAREN) TUBE TOP SCH ×3 (09:18→22:43)
--- NOTE | 2019-07-17 09:18 | Diagnostic Imaging Report ---
INDICATION: Pleural effusion. Marking for thoracentesis. COMPARISON: 07/15/2019 FINDINGS: Limited sonographic evaluation of the right chest was performed prior to thoracentesis. Images provided show large right-sided pleural effusion. Please note, interpreting radiologist was not present during the procedure. IMPRESSION: 1. Large right effusion. Dictated by: Dictated on workstation # [id number]
[2019-07-17 09:38] LABS: ALANINE AMINOTRANSFERASE 20 U/L (0-55); ALBUMIN 3.1 GM/DL (3.2-4.5); ALKALINE PHOSPHATASE 101 U/L (40-136); BILIRUBIN,TOTAL 0.5 MG/DL (0.1-1.0); BUN/CREATININE RATIO 17; CARBON DIOXIDE 42 MMOL/L (21-32); CHLORIDE 92 MMOL/L (98-107); CREATININE SERUM 1.03 MG/DL (0.60-1.30); GFR ESTIMATED > 60; GLUCOSE 88 MG/DL (70-105); POTASSIUM 4.2 MMOL/L (3.6-5.0); SODIUM 141 MMOL/L (135-145); TOTAL PROTEIN 6.3 GM/DL (6.4-8.2)
--- NOTE | 2019-07-17 09:47 | Diagnostic Imaging Report ---
INDICATION: Congestive heart failure and pleural effusion. Comparison made with prior examination 07/16/2019. FINDINGS: There is cardiomegaly. There is some venous congestion. There are patchy bibasilar infiltrates, left greater than right. There is a small right pleural effusion. There is no pneumothorax. Mediastinum is unremarkable. IMPRESSION: Patchy bibasilar infiltrates left greater than right with a small right pleural effusion. Cardiomegaly and some central pulmonary venous congestion. Dictated by: Dictated on workstation # [id number]
[2019-07-17 10:11] LABS: BODY FLUID SOURCE THORACENTESIS
[2019-07-17 10:16] LABS: GLUCOSE,BODY FLUID 104 MG/DL; LDH,BODY FLUID 61 U/L; TOTAL PROTEIN,BODY FLUID 1.4 G/DL
[2019-07-17 10:42] LABS: BODY FLUID APPEARENCE SLT CLDY; BODY FLUID COLOR YELLOW; BODY FLUID RBC COUNT 1650 /uL; BODY FLUID WBC TOTAL COUNT 10 /uL
[2019-07-17 10:58] LABS: LYMPHOCYTES,BODY FLUID 81 %
[2019-07-17 12:00] VITALS: BP 137/65
[2019-07-17] MEDS: RT-ALBUTEROL SULF 2.5 MG/3 ML PRE-MIX VIAL IH PRN (14:40)
[2019-07-17 16:20] VITALS: BP 130/53
[2019-07-17 20:35] VITALS: BP 145/66
[2019-07-17] MEDS: ENOXAPARIN 40 MG/0.4 ML (LOVENOX) SYR SC SCH (21:00)
--- NOTE | 2019-07-17 22:06 | NUR ---
FOUND ON CHARTED SETTING, NO ORDER FOUND CHANGED TO ORDERED SETTING. ASKED RN TO HELP FIND ORDER CHANGE NO CHANGE ORDER FOUND Addendum: 07/17/19 at 2208 by MOON MONTES RT Amended: Links added.
[2019-07-18] VITALS: BP 109/54
[2019-07-18] MEDS: RT-ALBUTEROL/IPRATROPIUM 3 ML (DUONEB) VIAL IH SCH ×6 (01:42→20:50)
[2019-07-18] MEDS: HYDROcodone/APAP 5 MG/325 MG (LORTAB) TAB PO PRN ×2 (03:47→13:23)
[2019-07-18 04:00] VITALS: BP 140/63
[2019-07-18 04:18] LABS: BASOPHILS % (AUTO) 0 % (0-10); EOSINOPHILS # (AUTO) 0.1 10^3/uL (0.0-0.3); EOSINOPHILS % (AUTO) 2 % (0-10); HEMATOCRIT 32 % (40-54); HEMOGLOBIN 9.3 G/DL (13.3-17.7); LYMPHOCYTES # (AUTO) 1.4 X 10^3 (1.0-4.0); LYMPHOCYTES % (AUTO) 17 % (12-44); MEAN CORPUSCULAR HEMOGLOBIN 27 PG (25-34); MEAN CORPUSCULAR HGB CONC 29 G/DL (32-36); MEAN CORPUSCULAR VOLUME 92 FL (80-99); MEAN PLATELET VOLUME 9.7 FL (7.4-10.4); MONOCYTES % (AUTO) 12 % (0-12); NEUTROPHILS # (AUTO) 5.7 X 10^3 (1.8-7.8); NEUTROPHILS % (AUTO) 69 % (42-75); PLATELET COUNT 154 10^3/uL (130-400); RED CELL DISTRIBUTION WIDTH 16.6 % (10.0-14.5); WHITE BLOOD COUNT 8.3 10^3/uL (4.3-11.0)
[2019-07-18 04:50] LABS: CALCIUM 9.1 MG/DL (8.5-10.1); CREATININE SERUM 1.29 MG/DL (0.60-1.30); MAGNESIUM 1.9 MG/DL (1.6-2.4); PHOSPHORUS 3.5 MG/DL (2.3-4.7); POTASSIUM 4.1 MMOL/L (3.6-5.0)
[2019-07-18] MEDS: inSUlin ASPART (NovoLOG) 1 UNIT/0.01 ML (CHARGE PER UNIT) SC SCH ×4 (05:33→20:06)
[2019-07-18] MEDS: MULTIVIT W/MINERALS TAB (THERAGRAN M) PO SCH (07:03)
[2019-07-18] MEDS: CYANOCOBALAMIN 1,000 MCG (VITAMIN B-12) TABLET PO SCH (07:06)
--- NOTE | 2019-07-18 07:37 | Pulmonary Progress Note ---
MARY SEGURA MED STUDENT 07/18/19 0737: Subjective Date Seen by a Provider: Jul 18, 2019 Time Seen by a Provider: 07:50 Subjective/Events-last exam Patient reports that he has improved significantly from a pulmonary stand point. He states that he has not been able to breath like this in a long while. He s till endorses productive cough, sputum still white. He denies fevers, chills, chest pain, and pleuritic pain. Sepsis Event Evaluation Height, Weight, BMI Height: " Weight: 348lbs. 6.0oz. 158.131947wb; 46.00 BMI Method:Stated Exam Exam Vital Signs Date Time Temp Pulse Resp B/P (MAP) Pulse Ox O2 Delivery O2 Flow Rate FiO2 07/18/19 04:00 36.8 57 18 140/63 (88) 93 Nasal Cannula 5.00 07/18/19 01:43 55 16 100 40.00 07/18/19 01:00 55 07/18/19 00:00 36.2 57 16 109/54 (72) 97 NIV Bilevel 40.00 07/17/19 21:51 58 24 100 40.00 07/17/19 20:35 36.5 56 20 145/66 (92) 97 Nasal Cannula 5.00 07/17/19 19:24 94 Nasal Cannula 5.00 07/17/19 19:00 68 07/17/19 16:58 36.8 07/17/19 16:57 36.8 07/17/19 16:20 36.8 60 18 130/53 (78) 92 Nasal Cannula 5.00 07/17/19 14:40 60 20 97 40.00 07/17/19 12:48 64 07/17/19 12:00 36.4 54 18 137/65 (89) 97 NIV Bilevel 40.00 07/17/19 10:54 96 Nasal Cannula 5.00 07/17/19 09:00 94 Nasal Cannula 4.00 07/17/19 08:34 96 Nasal Cannula 5.00 07/17/19 08:00 36.4 66 20 138/58 (84) 93 NIV Bilevel 40.00 I & O 07/18/19 07:00 Intake Total 900 ml Output Total 1300 ml Balance -400 ml Height & Weight Height: 5" Weight: 348lbs. 6.0oz. 158.335898eb; 46.00 BMI Method:Stated General Appearance: No Apparent Distress, WD/WN, Obese HEENT: Normal ENT Inspection Neck: Full Range of Motion, Normal Inspection Respiratory: No Accessory Muscle Use, No Respiratory Distress, Crackles (RLL crackles), Decreased Breath Sounds, Other (Short of breath with exertion) Cardiovascular: Regular Rate, Rhythm Capillary Refill: Less Than 3 Seconds Peripheral Pulses: 2+ Radial Pulses (R), 2+ Radial Pulses (L) Gastrointestinal: normal bowel sounds, non tender, soft Extremity: No Calf Tenderness, Pedal Edema Neurologic/Psychiatric: Alert, Oriented x3, Normal Mood/Affect Skin: Other (raised lesion on R buttock, looks like skin tag) Lymphatic: No Adenopathy Results Lab Intake and Output 07/18/19 00:00 Intake Total 1150 ml Output Total 2320 ml Balance -1170 ml Intake Oral 1150 ml Output Urine Total 2320 ml 07/16/19 09:35 07/17/19 05:00 07/18/19 04:05 Radiology 07/17/19 Chest X ray IMPRESSION: Patchy bibasilar infiltrates left greater than right with a small right pleural effusion. Cardiomegaly and some central pulmonary venous congestion. Procedures 07/17/19: Thoracentesis Pleural fluid total protein: 1.4 Pleural fluid LDH: 61 Pleural WBC count: 10 Assessment/Plan Assessment/Plan Acute on chronic respiratory failure with hypoxia -Recurrent hospitalizations -S/P Thoracentesis 07/17/19, 1400mL serous transudative fluid drained -On BiPAP 40% O2 at night 5L NC during day -Duoneb RT Q4hr -Proventil Q4PRN -Pt has home vent to mask already COPD exacerbation -Roflumilast 500mcg -Duonebs -Sputum culture grew normal respiratory analilia CHF -Elevated BNP 464.4 -per cards, recent echo in [place] LVEF 60% and PASP 53mmHG -D/Cd 07/17/19, not type I pulm HTN sildenafil 20mg TID -Received furosemide 40mg x1 on 07/17/19 -Monitor electrolytes -Fluid restriction 2000mL - I&Os 07/17/19 I: 1150 O: 2320 T: -1170 AFib RVR -Currently Eliquis is on hold secondary to GIB HTN -Lisinopril 10mg daily -Hydralazine 10mg when SBP >160 HLD -Atorvastatin 10mg daily Recent Hx of GI bleed -Monitor H&H, -Received 2 units Leukocyte red-pRBCs07/15/19, stable since then -Positive stool occult 07/16/19 -Surgery consulted JHON FORREST DO 08/14/19 0652: Supervisory-Addendum Brief Verification & Attestation Participated in pt care: history Personally performed: exam, history Care discussed with: Medical Student Procedures: n/a Verification and Attestation of Medical Student E/M Service A medical student performed and documented this service in my presence. I reviewed and verified all information documented by the medical student and made modifications to such information, when appropriate. I personally performed the physical exam and medical decision making. Jhon Forrest, Aug 14, 2019,06:52 MARY SEGURA MED STUDENT Jul 18, 2019 07:37 JHON MATOSN DO Aug 14, 2019 06:52 POS
[2019-07-18 08:00] VITALS: BP 180/49
--- NOTE | 2019-07-18 08:06 | Progress Note ---
Subjective Time Seen by a Provider: 08:01 Subjective/Events-last exam Patient is resting comfortably today. Patient had thoracentesis done yesterday and removal of 1400 mL of fluid. No respiratory problem at rest. Chest x-ray done this morning Objective Exam Vital Signs Date Time Temp Pulse Resp B/P (MAP) Pulse Ox O2 Delivery O2 Flow Rate FiO2 07/18/19 07:00 52 07/18/19 04:00 36.8 57 18 140/63 (88) 93 Nasal Cannula 5.00 07/18/19 01:43 55 16 100 40.00 07/18/19 01:00 55 07/18/19 00:00 36.2 57 16 109/54 (72) 97 NIV Bilevel 40.00 07/17/19 21:51 58 24 100 40.00 07/17/19 20:35 36.5 56 20 145/66 (92) 97 Nasal Cannula 5.00 07/17/19 19:24 94 Nasal Cannula 5.00 07/17/19 19:00 68 07/17/19 16:58 36.8 07/17/19 16:57 36.8 07/17/19 16:20 36.8 60 18 130/53 (78) 92 Nasal Cannula 5.00 07/17/19 14:40 60 20 97 40.00 07/17/19 12:48 64 07/17/19 12:00 36.4 54 18 137/65 (89) 97 NIV Bilevel 40.00 07/17/19 10:54 96 Nasal Cannula 5.00 07/17/19 09:00 94 Nasal Cannula 4.00 07/17/19 08:34 96 Nasal Cannula 5.00 I & O 07/18/19 07:00 Intake Total 900 ml Output Total 1300 ml Balance -400 ml Capillary Refill : Less Than 3 SecondsLess Than 3 Seconds General Appearance: No Apparent Distress, WD/WN HEENT: Normal ENT Inspection Neck: Full Range of Motion, Normal Inspection Respiratory: Chest Non Tender, Lungs Clear, No Accessory Muscle Use, No Respiratory Distress, Decreased Breath Sounds Cardiovascular: Regular Rate, Rhythm, No Murmur Gastrointestinal: non tender, soft Results Lab Laboratory Tests 07/18/19 04:05 Laboratory Tests 07/17/19 09:10: Body Fluid Source THORACENTESIS, Body Fluid Color YELLOW, Body Fluid Appearance SLT CLDY, Body Fluid pH 7.0, Body Fluid WBC 10, Body Fluid RBC 1650, Body Fluid Polynuclear WBCs 10, Body Fluid Mononuclear WBCs 9, Body Fluid Lymphocytes 81, Body Fluid Other Cells , Body Fluid Glucose 104, Body Fluid Total Protein 1.4, Body Fluid Lactate Dehydrogenase 61 07/17/19 11:16: Glucometer 90 07/17/19 16:24: Glucometer 108 07/17/19 20:40: Glucometer 109 07/18/19 04:05: White Blood Count 8.3, Red Blood Count 3.46L, Hemoglobin 9.3L, Hematocrit 32L, Mean Corpuscular Volume 92, Mean Corpuscular Hemoglobin 27, Mean Corpuscular Hemoglobin Concent 29L, Red Cell Distribution Width 16.6H, Platelet Count 154, Mean Platelet Volume 9.7, Neutrophils (%) (Auto) 69, Lymphocytes (%) (Auto) 17, Monocytes (%) (Auto) 12, Eosinophils (%) (Auto) 2, Basophils (%) (Auto) 0, Neutrophils # (Auto) 5.7, Lymphocytes # (Auto) 1.4, Monocytes # (Auto) 1.0, Eosinophils # (Auto) 0.1, Basophils # (Auto) 0.0, Sodium Level 143, Potassium Level 4.1, Chloride Level 94L, Carbon Dioxide Level 39H, Anion Gap 10, Blood Urea Nitrogen 23H, Creatinine 1.29, Estimat Glomerular Filtration Rate 56, BUN /Creatinine Ratio 18, Glucose Level 87, Calcium Level 9.1, Phosphorus Level 3.5, Magnesium Level 1.9 Microbiology 07/14/19 Blood Culture - Preliminary, Resulted No growth 07/15/19 Gram Stain - Final, Complete 07/15/19 Sputum Culture - Final, Complete Usual upper respiratory analilia Assessment/Plan Assessment/Plan Assess & Plan/Chief Complaint COPD with acute exacerbation. Congestive heart failure. Pedal edema. Acute respiratory failure. History of atrial fibrillation.. . 07/17/19. Pleural effusion to have thoracentesis today. Congestive heart failure. COPD. Acute respiratory failure. History of atrial fibrillation. . 07/18/19. Urine chronic respiratory failure. Pleural effusion area COPD with acute exacerbation. Congestive heart failure. A. fib with RVR history. Hypertension. Hyperlipidemia. Patient feeling better and doing better and breathing better Clinical Quality Measures Admission Status Admission Dx COPD exacerbation. CHF. Minimally elevated troponin 1. Diabetes. Gastric polyps recently removed. Anemia. Coronary artery disease. Hyperlipidemia. DVT/VTE Risk/Contraindication: Risk Factor Score Per Nursin RFS Level Per Nursing on Admit: 4+=Very High Contraindications-Pharm: Other *list below* DANITA TEE DO Jul 18, 2019 08:06 POS
[2019-07-18] MEDS ORDERED: FUROSEMIDE 40 MG/4 ML INJ (LASIX) IVP NR (08:15)
[2019-07-18] MEDS ORDERED: FUROSEMIDE 40 MG/4 ML INJ (LASIX) ONE (08:20)
[2019-07-18] MEDS: lisINopril 10 MG (PRINIVIL) TABLET PO SCH (08:30)
[2019-07-18] MEDS: PANTOPRAZOLE 40 MG (PROTONIX) TAB PO SCH (08:30)
[2019-07-18] MEDS: meTOproloL SUCCINATE 50 MG (TOPROL XL) TAB PO SCH (08:30)
[2019-07-18] MEDS: FAMOTIDINE 20 MG (PEPCID) TABLET PO SCH ×2 (08:30→20:02)
[2019-07-18] MEDS: ASPIRIN 81 MG CHEW (CHILDREN'S ASA) PO SCH (08:30)
[2019-07-18] MEDS: amLODIPine 5 MG (NORVASC) TAB PO SCH ×2 (08:30→20:02)
[2019-07-18] MEDS: DULoxetine 30 MG (CYMBALTA) CAP PO SCH ×2 (08:31→20:02)
[2019-07-18] MEDS: PREGABALIN 150 MG (LYRICA) CAPSULE PO SCH ×2 (08:31→20:02)
[2019-07-18] MEDS: AMIODARONE 200 MG (CORDARONE) TAB PO SCH (08:31)
[2019-07-18] MEDS: VITAMIN D3 1,000 UNITS (CHOLECALCIFEROL) TABLET PO SCH (08:31)
[2019-07-18] MEDS: ROFLUMILAST 500 MCG TAB (DALIRESP) PO SCH (08:32)
[2019-07-18] MEDS: DICLOFENAC 1% GEL 100 GM (VOLTAREN) TUBE TOP SCH ×4 (08:32→20:02)
[2019-07-18] MEDS: busPIRone 10 MG (BUSPAR) TAB PO SCH ×2 (08:32→20:02)
[2019-07-18] MEDS: ENOXAPARIN 40 MG/0.4 ML (LOVENOX) SYR SC SCH (08:34)
--- NOTE | 2019-07-18 08:45 | Diagnostic Imaging Report ---
Portable erect AP chest at 409 hours. INDICATION: Respiratory distress. FINDINGS: The appearance of the chest has worsened since the prior study of 07/17/2019 as there is greater involvement of the right lung base by pneumonia/atelectasis and fluid. Conversely the left lung base does seem slightly better aerated than on the prior exam. The cardiomegaly noted previously is again evident. The central pulmonary vascularity does remain prominent. The mediastinum is not widened. The osseous structures are intact. IMPRESSION: There are mixed results. There is greater involvement of the right lower lobe by pneumonia/atelectasis and fluid, but the left lung base does seem slightly better aerated. A followup study would be recommended for continued evaluation. Dictated by: Dictated on workstation # [id number]
[2019-07-18] MEDS: RT-ALBUTEROL SULF 2.5 MG/3 ML PRE-MIX VIAL IH PRN (08:57)
--- NOTE | 2019-07-18 11:29 | NUR ---
PRIOR TO A.M. MEDICATIONS PULSE WAS 60 BPM AND B/P WAS 180/49. DR. SERVIN AWARE, NO NEW ORDERS.
[2019-07-18 12:00] VITALS: BP 126/59
--- NOTE | 2019-07-18 12:05 | Progress Note - Cardiology ---
Cardiology SOAP Progress Note Subjective: Gen malaise Gets short of breath with mild exertion Somewhat better compared to time of admission No cp or palp or syncope Objective: I&O/Vital Signs 07/18/19 07/18/19 07/18/19 07/18/19 01:00 01:43 04:00 07:00 Temp 36.8 Pulse 55 55 57 52 Resp 16 18 B/P (MAP) 140/63 (88) Pulse Ox 100 93 O2 Delivery Nasal Cannula O2 Flow Rate 40.00 5.00 07/18/19 07/18/19 07/18/19 07/18/19 08:00 08:57 09:00 10:25 Temp 36.6 Pulse 60 Resp 22 B/P (MAP) 180/49 (92) Pulse Ox 94 82 95 95 O2 Delivery NIV Bilevel Nasal Cannula Nasal Cannula Nasal Cannula O2 Flow Rate 40.00 5.00 4.00 5.00 07/18/19 00:00 Intake Total 1300 ml Output Total 1750 ml Balance -450 ml Weight (Pounds): 348 Weight (Ounces): 6.0 Weight (Calculated Kilograms): 158.957729 Constitutional: AAO x 3, well-developed, well-nourished Respiratory: No accessory muscle use, No respiratory distress; chest expansion is symmetric, chest is bilaterally symmetric, other (fair air entry; frequent lose cough) Cardiovascular: regular rate-rhythm, S1 and S2 Gastrointestional: soft, round, audible bowel sounds Extremities: other (mod bilat LE swelling) Neurologic/Psychiatric: alert, grossly intact Skin: rash on exposed areas (scattered, red, raised rash to upper torso); No ulcerations on exposed areas Results/Procedures: Labs Laboratory Tests 07/17/19 16:24: Glucometer 108 07/17/19 20:40: Glucometer 109 07/18/19 04:05: White Blood Count 8.3, Red Blood Count 3.46L, Hemoglobin 9.3L, Hematocrit 32L, Mean Corpuscular Volume 92, Mean Corpuscular Hemoglobin 27, Mean Corpuscular Hemoglobin Concent 29L, Red Cell Distribution Width 16.6H, Platelet Count 154, Mean Platelet Volume 9.7, Neutrophils (%) (Auto) 69, Lymphocytes (%) (Auto) 17, Monocytes (%) (Auto) 12, Eosinophils (%) (Auto) 2, Basophils (%) (Auto) 0, Neutrophils # (Auto) 5.7, Lymphocytes # (Auto) 1.4, Monocytes # (Auto) 1.0, Eosinophils # (Auto) 0.1, Basophils # (Auto) 0.0, Sodium Level 143, Potassium Level 4.1, Chloride Level 94L, Carbon Dioxide Level 39H, Anion Gap 10, Blood Urea Nitrogen 23H, Creatinine 1.29, Estimat Glomerular Filtration Rate 56, BUN/Creatinine Ratio 18, Glucose Level 87, Calcium Level 9.1, Phosphorus Level 3.5, Magnesium Level 1.9 07/18/19 10:58: Glucometer 110 Microbiology 07/14/19 Blood Culture - Preliminary, Resulted No growth 07/15/19 Gram Stain - Final, Complete 07/15/19 Sputum Culture - Final, Complete Usual upper respiratory analilia Laboratory Tests 07/17/19 05:00 07/18/19 04:05 A/P: Assessment: Recurrent GI bleeds leading to anemia requiring transfusions - scope per Dr. Gaytan on 06/28/19: Colon Polyps Internal hemorrhoids; Gastritis ; Hiatal hernia. Endoscopy of Jul 11, 2019 at [facility] showed sigmoid and ascending colon ulcer, nonbleeding (per D/C summary by Dr. Stack) Multifactorial shortness of breath: ac exac of COPD, severe anemia, obesity- hypoventilation, ac on diastolic CHF SSS. H/o PAF, currently asymptomatic sinus mateo Echo of 01/04/19 showed LVEF 65-70%, mod conc LVH, grade 1 gastelum dysfunction of LV, mod to sev enlargement of LA, PASP 45-50 mmHg[address] Michaud at [facility] in [place] on Jul 08, 2019 shows LVEF 60%. Bilat atrial enlargement. LVH. Mild MR and TR. Aortic valve sclerosis without stenosis; mod to severe AoR. PASP 53 mmHg. Hemoptysis during hospitalization of Jun 2019, small qty, managed by the Med Svce. Bronchoscopy on 07/03/19 did not indicate any active bleed or inflammation Ac exac of COPD due to pneumonia -management per medical/pulmonary services Has h/o COPD due to previous tobacco use (quit in 2016) OAC with Eliquis - holding due to recurrent GI bleeds Ac on diastolic CHF HTN - not well controlled Mild to moderate CAD on coronary angiography in 2010 Obesity with obesity-hypoventilation, TERE, and pulm hypertension. PASP was 60-65 mmHg on echo of 2015; 45-50 mmHg on echo of 01/04/19 Marijuana use (urine test positive in January 2019) Chronic narcotic use d/t chronic back and joint pain GERD Plan: * Complex management issue due to multiple comorbidities * Reduce bb due to sinus mateo * Increase lisinopril to better treat bp * Monitor lab closely PATSY SERVIN MD FACP FAC CCDS Jul 18, 2019 12:05 POS
[2019-07-18] MEDS ORDERED: lisINopril 20 MG (PRINIVIL) TABLET PO NR (12:15)
--- NOTE | 2019-07-18 14:11 | NUR ---
CM DISCHARGE PLANNING: Anticipate discharge to home tomorrow. Visited with patient at this time to assess if he had any needs or concerns. He denies any concerns. He was recently at the hospital et reports that he has everything in place from that stay. He also reports that he was doing very well until he recently received his flu shot et asked if this spell of illness could be related to that. Encouraged him that it should not be related. He signed the Important Message from Medicare at this time. This was placed on his chart. No further interventions noted.
[2019-07-18 16:00] VITALS: BP 130/60
--- NOTE | 2019-07-18 17:04 | Progress Note - Surgery ---
Subjective Time Seen by a Provider: 16:24 Subjective/Events-last exam Pt seen and examined, sitting comfortably in chair with CPAP. Pt denies abdominal pain, melena or hematochezia. States he is doing better and breathing better. Still has edema, but is sitting with feet elevated. Review of Systems General: No Chills, No Night Sweats Pulmonary: Dyspnea; No Cough Cardiovascular: No: Chest Pain, Palpitations Gastrointestinal: No: Nausea, Vomiting, Abdominal Pain Objective Exam Vital Signs Date Time Temp Pulse Resp B/P (MAP) Pulse Ox O2 Delivery O2 Flow Rate FiO2 07/18/19 13:55 90 Nasal Cannula 5.00 07/18/19 13:00 66 07/18/19 12:00 36.9 61 20 126/59 (81) 95 Nasal Cannula 5.00 07/18/19 10:25 95 Nasal Cannula 5.00 07/18/19 09:00 95 Nasal Cannula 4.00 07/18/19 08:57 82 Nasal Cannula 5.00 07/18/19 08:00 36.6 60 22 180/49 (92) 94 NIV Bilevel 40.00 07/18/19 07:00 52 07/18/19 04:00 36.8 57 18 140/63 (88) 93 Nasal Cannula 5.00 07/18/19 01:43 55 16 100 40.00 07/18/19 01:00 55 07/18/19 00:00 36.2 57 16 109/54 (72) 97 NIV Bilevel 40.00 07/17/19 21:51 58 24 100 40.00 07/17/19 20:35 36.5 56 20 145/66 (92) 97 Nasal Cannula 5.00 07/17/19 20:30 93 NIV Bilevel 5.00 07/17/19 19:24 94 Nasal Cannula 5.00 07/17/19 19:00 68 I & O 07/18/19 07:00 Intake Total 1700 ml Output Total 2110 ml Balance -410 ml Capillary Refill : Less Than 3 SecondsLess Than 3 Seconds General Appearance: No Apparent Distress, Obese Neck: Full Range of Motion, Normal Inspection Respiratory: Chest Non Tender, Lungs Clear, No Accessory Muscle Use, No Respiratory Distress, Decreased Breath Sounds Cardiovascular: Regular Rate, Rhythm, No Murmur Peripheral Pulses: 2+ Radial Pulses (R), 2+ Radial Pulses (L) Gastrointestinal: non tender, soft, no organomegaly Extremity: No Calf Tenderness, Pedal Edema Neurologic/Psychiatric: Alert, Oriented x3, Normal Mood/Affect Skin: Other (raised lesion on R buttock, looks like skin tag) Results Lab Laboratory Tests 07/17/19 20:40: Glucometer 109 07/18/19 04:05: White Blood Count 8.3, Red Blood Count 3.46L, Hemoglobin 9.3L, Hematocrit 32L, Mean Corpuscular Volume 92, Mean Corpuscular Hemoglobin 27, Mean Corpuscular Hemoglobin Concent 29L, Red Cell Distribution Width 16.6H, Platelet Count 154, [place] Platelet Volume 9.7, Neutrophils (%) (Auto) 69, Lymphocytes (%) (Auto) 17, Monocytes (%) (Auto) 12, Eosinophils (%) (Auto) 2, Basophils (%) (Auto) 0, Neutrophils # (Auto) 5.7, Lymphocytes # (Auto) 1.4, Monocytes # (Auto) 1.0, Eosinophils # (Auto) 0.1, Basophils # (Auto) 0.0, Sodium Level 143, Potassium Level 4.1, Chloride Level 94L, Carbon Dioxide Level 39H, Anion Gap 10, Blood Urea Nitrogen 23H, Creatinine 1.29, Estimat Glomerular Filtration Rate 56, BUN/Creatinine Ratio 18, Glucose Level 87, Calcium Level 9.1, Phosphorus Level 3.5, Magnesium Level 1.9 07/18/19 10:58: Glucometer 110 07/18/19 16:06: Glucometer 94 Microbiology 07/14/19 Blood Culture - Preliminary, Resulted No growth 07/15/19 Gram Stain - Final, Complete 07/15/19 Sputum Culture - Final, Complete Usual upper respiratory analilia Assessment/Plan Assessment/Plan Assessment/Plan COPD with acute exacerbation History of atrial fibrillation Anemia - stable Pt needs to start his blood thinners again because of Afib, he is aware this could cause bleeding again. Pt can follow up and see me as an outpt. Clinical Quality Measures DVT/VTE Risk/Contraindication: Risk Factor Score Per Nursin RFS Level Per Nursing on Admit: 4+=Very High Contraindications-Pharm: Other *list below* BEENA HA DO Jul 18, 2019 17:04 POS
[2019-07-18 20:00] VITALS: BP 136/60
[2019-07-18] MEDS: RT-ADVAIR HFA 115/21 MCG PER PUFF IH SCH (20:50)
[2019-07-19 00:20] VITALS: BP 119/61
[2019-07-19] MEDS: HYDROcodone/APAP 5 MG/325 MG (LORTAB) TAB PO PRN ×3 (00:39→21:41)
[2019-07-19] MEDS: RT-ALBUTEROL/IPRATROPIUM 3 ML (DUONEB) VIAL IH SCH ×8 (02:24→21:24)
[2019-07-19 04:00] VITALS: BP 113/42
[2019-07-19 05:06] LABS: BASOPHILS % (AUTO) 0 % (0-10); EOSINOPHILS # (AUTO) 0.2 10^3/uL (0.0-0.3); EOSINOPHILS % (AUTO) 2 % (0-10); HEMATOCRIT 30 % (40-54); LYMPHOCYTES # (AUTO) 1.5 X 10^3 (1.0-4.0); LYMPHOCYTES % (AUTO) 20 % (12-44); MEAN CORPUSCULAR HEMOGLOBIN 28 PG (25-34); MEAN CORPUSCULAR HGB CONC 30 G/DL (32-36); MEAN CORPUSCULAR VOLUME 94 FL (80-99); MEAN PLATELET VOLUME 9.6 FL (7.4-10.4); MONOCYTES # (AUTO) 0.9 X 10^3 (0.0-1.0); MONOCYTES % (AUTO) 12 % (0-12); NEUTROPHILS # (AUTO) 4.9 X 10^3 (1.8-7.8); NEUTROPHILS % (AUTO) 66 % (42-75); PLATELET COUNT 130 10^3/uL (130-400); RED CELL DISTRIBUTION WIDTH 16.3 % (10.0-14.5); WHITE BLOOD COUNT 7.4 10^3/uL (4.3-11.0)
[2019-07-19 05:26] LABS: CALCIUM 9.1 MG/DL (8.5-10.1); CREATININE SERUM 1.39 MG/DL (0.60-1.30); PHOSPHORUS 3.2 MG/DL (2.3-4.7)
[2019-07-19] MEDS: MULTIVIT W/MINERALS TAB (THERAGRAN M) PO SCH (06:01)
[2019-07-19] MEDS: CYANOCOBALAMIN 1,000 MCG (VITAMIN B-12) TABLET PO SCH (06:01)
[2019-07-19] MEDS: inSUlin ASPART (NovoLOG) 1 UNIT/0.01 ML (CHARGE PER UNIT) SC SCH ×4 (06:03→21:35)
--- NOTE | 2019-07-19 06:45 | Pulmonary Progress Note ---
MARY SEGURA MED STUDENT 07/19/19 0645: Subjective Date Seen by a Provider: Jul 19, 2019 Time Seen by a Provider: 06:42 Subjective/Events-last exam Patient reports that he continues to feel well. He denies any shortness of breath. He continues to cough up white sputum. He denies any fevers, chills, and hematochezia and melena . Sepsis Event Evaluation Height, Weight, BMI Height: 5'10.00" Weight: 348lbs. 6.0oz. 158.202746sc; 46.00 BMI Method:Stated Exam Exam Vital Signs Date Time Temp Pulse Resp B/P (MAP) Pulse Ox O2 Delivery O2 Flow Rate FiO2 07/19/19 04:00 36.1 50 18 113/42 (65) 98 NIV Bilevel 40.00 07/19/19 02:24 93 Nasal Cannula 5.00 07/19/19 01:00 60 07/19/19 00:20 36.2 51 20 119/61 (80) 100 NIV Bilevel 40.00 07/18/19 20:50 91 Nasal Cannula 5.00 07/18/19 20:01 Nasal Cannula 4.00 07/18/19 20:00 36.5 56 18 136/60 (85) 99 NIV Bilevel 40.00 07/18/19 19:00 56 07/18/19 16:00 36.7 60 20 130/60 (83) 96 Nasal Cannula 5.00 07/18/19 13:55 90 Nasal Cannula 5.00 07/18/19 13:00 66 07/18/19 12:00 36.9 61 20 126/59 (81) 95 Nasal Cannula 5.00 07/18/19 10:25 95 Nasal Cannula 5.00 07/18/19 09:00 95 Nasal Cannula 4.00 07/18/19 08:57 82 Nasal Cannula 5.00 07/18/19 08:00 36.6 60 22 180/49 (92) 94 NIV Bilevel 40.00 07/18/19 07:00 52 I & O 07/19/19 07:00 Intake Total 2140 ml Output Total 2875 ml Balance -735 ml Height & Weight Height: 5'10.00" Weight: 348lbs. 6.0oz. 158.587484fb; 46.00 BMI Method:Stated General Appearance: No Apparent Distress, Obese Neck: Full Range of Motion, Normal Inspection Respiratory: Chest Non Tender, Lungs Clear, No Accessory Muscle Use, No Respiratory Distress, Crackles (mild crackles RLL), Decreased Breath Sounds Cardiovascular: Regular Rate, Rhythm, No Murmur Capillary Refill: Less Than 3 Seconds Peripheral Pulses: 2+ Radial Pulses (R), 2+ Radial Pulses (L) Gastrointestinal: non tender, soft, no organomegaly Extremity: No Calf Tenderness, Pedal Edema Neurologic/Psychiatric: Alert, Oriented x3, Normal Mood/Affect Skin: Other (raised lesion on R buttock, looks like skin tag) Results Lab Laboratory Tests 07/18/19 04:05 07/19/19 04:30 Assessment/Plan Assessment/Plan Acute on chronic respiratory failure with hypoxia -Recurrent hospitalizations -S/P Thoracentesis 07/17/19, 1400mL serous transudative fluid drained -On BiPAP 40% O2 at night 5L NC during day -Duoneb RT Q4hr -Proventil Q4PRN -Pt has home vent to mask already COPD exacerbation -Roflumilast 500mcg -Duonebs -Sputum culture grew normal respiratory analilia CHF -Elevated BNP 464.4 -per cards, recent echo in [place] LVEF 60% and PASP 53mmHG -D/Cd 07/17/19, not type I pulm HTN sildenafil 20mg TID -Received furosemide 40mg 07/18/19 -Monitor electrolytes -Fluid restriction 2000mL - I&Os 07/18/19 I: 2140 O: 2960 T: -820 AFib RVR -Consider resuming Eliquis, was on hold secondary to GIB HTN -Lisinopril 10mg daily -Hydralazine 10mg when SBP >160 HLD -Atorvastatin 10mg daily Recent Hx of GI bleed -Monitor H&H, -Received 2 units Leukocyte red-pRBCs07/15/19 -Positive stool occult 07/16/19 -Surgery consulted RAMANA FORREST DO 07/19/19 0721: Subjective Time Seen by a Provider: 07:16 Subjective/Events-last exam Pt feels improved. Exam Exam General Appearance: No Apparent Distress, Obese Neck: Full Range of Motion, Normal Inspection Respiratory: Chest Non Tender, Lungs Clear, No Accessory Muscle Use, No Respiratory Distress, Crackles (mild crackles RLL) Cardiovascular: No Murmur Capillary Refill: Less Than 3 Seconds Gastrointestinal: non tender, soft, no organomegaly Extremity: No Calf Tenderness Neurologic/Psychiatric: Alert, Oriented x3, Normal Mood/Affect Assessment/Plan Assessment/Plan Acute on chronic respiratory failure with hypoxia -Recurrent hospitalizations -S/P Thoracentesis 07/17/19, 1400mL serous transudative fluid drained -Monitor CXR. -On BiPAP 40% O2 at night 5L NC during day -Duoneb RT Q4hr -Proventil Q4PRN -Pt has home vent to mask already COPD exacerbation -Roflumilast 500mcg -Duonebs -Sputum culture grew normal respiratory analilia CHF -Elevated BNP 464.4 -per cards, recent echo in [place] LVEF 60% and PASP 53mmHG -D/Cd 07/17/19, not type I pulm HTN sildenafil 20mg TID -Received furosemide 40mg 07/18/19 -Monitor electrolytes -Fluid restriction 2000mL - I&Os 07/18/19 I: 2140 O: 2960 T: -820 AFib RVR -Consider resuming Eliquis, was on hold secondary to GIB HTN -Lisinopril 10mg daily -Hydralazine 10mg when SBP >160 HLD -Atorvastatin 10mg daily Recent Hx of GI bleed -Monitor H&H, -Received 2 units Leukocyte red-pRBCs07/15/19 -Positive stool occult 07/16/19 -Surgery consulted TIFFANI -Hold lisinopril for now -Hold off on Lasix today Supervisory-Addendum Brief Verification & Attestation Participated in pt care: history Personally performed: exam, history Care discussed with: Medical Student Procedures: n/a Verification and Attestation of Medical Student E/M Service A medical student performed and documented this service in my presence. I reviewed and verified all information documented by the medical student and made modifications to such information, when appropriate. I personally performed the physical exam and medical decision making. Ramana Forrest, Aug 06, 2019,13:00 MARY SEGURA MED STUDENT Jul 19, 2019 06:45 RAMANA MATSON DO Jul 19, 2019 07:21 POS
[2019-07-19] MEDS: RT-ADVAIR HFA 115/21 MCG PER PUFF IH SCH ×2 (07:12→20:07)
--- NOTE | 2019-07-19 07:35 | Diagnostic Imaging Report ---
INDICATION: Dyspnea, shortness of breath. TECHNIQUE: Single view chest 400 a.m.. CORRELATION STUDY: 07/18/2019 FINDINGS: Rather marked severity cardiac enlargement. There is presence of pulmonary vascular congestion and edema but overall perhaps slightly less severe. There is increasing opacity of the right mid and lower lung field, likely combination of edema with infiltrate and effusion. IMPRESSION: 1. Stable severity cardiac enlargement. Perhaps slightly less vascular congestion. 2. There is however what appears be increasing combination of infiltrate and/or edema along with effusion at the right lung base. Dictated by: Dictated on workstation # [id number]
--- NOTE | 2019-07-19 07:42 | Progress Note ---
Subjective Time Seen by a Provider: 07:39 Subjective/Events-last exam Clinically patient feels better. Creatinine and GFR are worse. The hold lisinopril and Lasix. Chest x-ray shows fluid going back into the lung Chest x-ray yesterday showed worse. Spoke to pulmonology and wants to wait to see how patient does by Monday. Radiologist wants further chest x-rays Objective Exam Vital Signs Date Time Temp Pulse Resp B/P (MAP) Pulse Ox O2 Delivery O2 Flow Rate FiO2 07/19/19 07:15 94 Nasal Cannula 5.00 07/19/19 04:00 36.1 50 18 113/42 (65) 98 NIV Bilevel 40.00 07/19/19 02:24 93 Nasal Cannula 5.00 07/19/19 01:00 60 07/19/19 00:20 36.2 51 20 119/61 (80) 100 NIV Bilevel 40.00 07/18/19 20:50 91 Nasal Cannula 5.00 07/18/19 20:01 Nasal Cannula 4.00 07/18/19 20:00 36.5 56 18 136/60 (85) 99 NIV Bilevel 40.00 07/18/19 19:00 56 07/18/19 16:00 36.7 60 20 130/60 (83) 96 Nasal Cannula 5.00 07/18/19 13:55 90 Nasal Cannula 5.00 07/18/19 13:00 66 07/18/19 12:00 36.9 61 20 126/59 (81) 95 Nasal Cannula 5.00 07/18/19 10:25 95 Nasal Cannula 5.00 07/18/19 09:00 95 Nasal Cannula 4.00 07/18/19 08:57 82 Nasal Cannula 5.00 07/18/19 08:00 36.6 60 22 180/49 (92) 94 NIV Bilevel 40.00 I & O 07/19/19 07:00 Intake Total 2140 ml Output Total 2875 ml Balance -735 ml Capillary Refill : Less Than 3 SecondsLess Than 3 Seconds General Appearance: No Apparent Distress, WD/WN HEENT: Normal ENT Inspection Neck: Full Range of Motion, Non Tender Respiratory: No Accessory Muscle Use, No Respiratory Distress, Decreased Breath Sounds Cardiovascular: Regular Rate, Rhythm Gastrointestinal: non tender, soft Results Lab Laboratory Tests 07/19/19 04:30 Laboratory Tests 07/18/19 10:58: Glucometer 110 07/18/19 16:06: Glucometer 94 07/18/19 20:05: Glucometer 113H 07/19/19 04:30: White Blood Count 7.4, Red Blood Count 3.24L, Hemoglobin 9.0L, Hematocrit 30L, Mean Corpuscular Volume 94, Mean Corpuscular Hemoglobin 28, Mean Corpuscular Hemoglobin Concent 30L, Red Cell Distribution Width 16.3H, Platelet Count 130, Mean Platelet Volume 9.6, Neutrophils (%) (Auto) 66, Lymphocytes (%) (Auto) 20, Monocytes (%) (Auto) 12, Eosinophils (%) (Auto) 2, Basophils (%) (Auto) 0, Neutrophils # (Auto) 4.9, Lymphocytes # (Auto) 1.5, Monocytes # (Auto) 0.9, Eosinophils # (Auto) 0.2, Basophils # (Auto) 0.0, Sodium Level 143, Potassium Level 4.0, Chloride Level 94L, Carbon Dioxide Level 41H, Anion Gap 8, Blood Urea Nitrogen 27H, Creatinine 1.39H, Estimat Glomerular Filtration Rate 51, BUN/Creatinine Ratio 19, Glucose Level 138H, Calcium Level 9.1, Phosphorus Level 3.2, Magnesium Level 2.0 07/19/19 06:01: Glucometer 108 Microbiology 07/14/19 Blood Culture - Preliminary, Resulted No growth 07/15/19 Gram Stain - Final, Complete 07/15/19 Sputum Culture - Final, Complete Usual upper respiratory analilia Assessment/Plan Assessment/Plan Assess & Plan/Chief Complaint COPD with acute exacerbation. Congestive heart failure. Pedal edema. Acute respiratory failure. History of atrial fibrillation.. . 07/17/19. Pleural effusion to have thoracentesis today. Congestive heart failure. COPD. Acute respiratory failure. History of atrial fibrillation. . 07/18/19. Urine chronic respiratory failure. Pleural effusion area COPD with acute exacerbation. Congestive heart failure. A. fib with RVR history. Hypertension. Hyperlipidemia. Patient feeling better and doing better and breathing better. . 07/19/19. COPD with acute exacerbation. CHF. Fluid coming back into the lung. GFR worse. Patient clinically feeling better Clinical Quality Measures Admission Status Admission Dx COPD exacerbation. CHF. Minimally elevated troponin 1. Diabetes. Gastric polyps recently removed. Anemia. Coronary artery disease. Hyperlipidemia. DVT/VTE Risk/Contraindication: Risk Factor Score Per Nursin RFS Level Per Nursing on Admit: 4+=Very High Contraindications-Pharm: Other *list below* DANITA TEE DO Jul 19, 2019 07:42 POS
[2019-07-19 08:00] VITALS: BP 149/68
--- NOTE | 2019-07-19 08:54 | Progress Note - Cardiology ---
Cardiology SOAP Progress Note Subjective: Sitting up in a chair at the bedside. States he is feeling much better today. No c/o CP, palpitations. LE swelling unchanged. Objective: I&O/Vital Signs Weight (Pounds): 348 Weight (Ounces): 6.0 Weight (Calculated Kilograms): 158.324960 Constitutional: AAO x 3, well-developed, well-nourished Respiratory: No accessory muscle use, No respiratory distress; chest expansion is symmetric, chest is bilaterally symmetric, other (fair air entry; frequent lose cough) Cardiovascular: regular rate-rhythm, S1 and S2 Gastrointestional: soft, round, audible bowel sounds Extremities: other (mod bilat LE swelling) Neurologic/Psychiatric: alert, grossly intact Skin: rash on exposed areas (scattered, red, raised rash to upper torso); No ulcerations on exposed areas Results/Procedures: Labs Microbiology 07/14/19 Blood Culture - Final, Complete No growth 07/17/19 Gram Stain - Final, Complete 07/17/19 Body Fluid Culture - Final, Complete No growth 07/15/19 Gram Stain - Final, Complete 07/15/19 Sputum Culture - Final, Complete Usual upper respiratory analilia Procedures NAME: KEMAR JERONIMO [facility] REC#: [id number] PT STATUS: ADM IN : 1955 PHYSICIAN: JHON STEPHENSON DO ADMIT DATE: 07/14/19 Draft Date of Exam:07/19/19 CHEST 1 VIEW, AP/PA ONLY INDICATION: Dyspnea, shortness of breath. TECHNIQUE: Single view chest 400 a.m.. CORRELATION STUDY: 07/18/2019 FINDINGS: Rather marked severity cardiac enlargement. There is presence of pulmonary vascular congestion and edema but overall perhaps slightly less severe. There is increasing opacity of the right mid and lower lung field, likely combination of edema with infiltrate and effusion. IMPRESSION: 1. Stable severity cardiac enlargement. Perhaps slightly less vascular congestion. 2. There is however what appears be increasing combination of infiltrate and/or edema along with effusion at the right lung base. Dictated on workstation # [id number] Dict: 07/19/19729 Trans: 07/19/19 0735 CV [id number] Interpreted by: EMERY ABBOTT DO Electronically signed by: A/P: Assessment: Recurrent GI bleeds leading to anemia requiring transfusions - scope per Dr. Gaytan on 06/28/19: Colon Polyps Internal hemorrhoids; Gastritis ; Hiatal hernia. Endoscopy of Jul 11, 2019 at [facility] showed sigmoid and ascending colon ulcer, nonbleeding (per D/C summary by Dr. Stack) Multifactorial shortness of breath: ac exac of COPD, severe anemia, obesity- hypoventilation, ac on diastolic CHF SSS. H/o PAF, currently asymptomatic sinus mateo Echo of 01/04/19 showed LVEF 65-70%, mod conc LVH, grade 1 gastelum dysfunction of LV, mod to sev enlargement of LA, PASP 45-50 mmHg[address] Michaud at [facility] in [place] on Jul 08, 2019 shows LVEF 60%. Bilat atrial enlargement. LVH. Mild MR and TR. Aortic valve sclerosis without stenosis; mod to severe AoR. PASP 53 mmHg. Hemoptysis during hospitalization of Jun 2019, small qty, managed by the Med Svce. Bronchoscopy on 07/03/19 did not indicate any active bleed or inflammation Ac exac of COPD due to pneumonia -management per medical/pulmonary services Has h/o COPD due to previous tobacco use (quit in 2016) OAC with Eliquis - holding due to recurrent GI bleeds Ac on diastolic CHF HTN - not well controlled Mild to moderate CAD on coronary angiography in 2010 Obesity with obesity-hypoventilation, TERE, and pulm hypertension. PASP was 60-65 mmHg on echo of 2015; 45-50 mmHg on echo of 01/04/19 Marijuana use (urine test positive in January 2019) Chronic narcotic use d/t chronic back and joint pain GERD Plan: * Complex management issue due to multiple comorbidities * S/P thoracentesis on 07-17-19 * Reduced bb due to sinus mateo * D/t elevating Cr GERMAN (-) stopped by pulmonary services * Diuretics held today per pulmonary recs * Monitor lab closely PIEDAD GOEL Jul 19, 2019 08:54 POS
[2019-07-19] MEDS: AMIODARONE 200 MG (CORDARONE) TAB PO SCH (08:57)
[2019-07-19] MEDS: ASPIRIN 81 MG CHEW (CHILDREN'S ASA) PO SCH (08:57)
[2019-07-19] MEDS: VITAMIN D3 1,000 UNITS (CHOLECALCIFEROL) TABLET PO SCH (08:57)
[2019-07-19] MEDS: PANTOPRAZOLE 40 MG (PROTONIX) TAB PO SCH (08:57)
[2019-07-19] MEDS: PREGABALIN 150 MG (LYRICA) CAPSULE PO SCH ×2 (08:57→21:29)
[2019-07-19] MEDS: ROFLUMILAST 500 MCG TAB (DALIRESP) PO SCH (08:57)
[2019-07-19] MEDS: busPIRone 10 MG (BUSPAR) TAB PO SCH ×2 (08:57→21:29)
[2019-07-19] MEDS: FAMOTIDINE 20 MG (PEPCID) TABLET PO SCH ×2 (08:57→21:29)
[2019-07-19] MEDS: meTOproloL SUCCINATE 50 MG (TOPROL XL) TAB PO SCH (08:57)
[2019-07-19] MEDS: amLODIPine 5 MG (NORVASC) TAB PO SCH ×2 (08:57→21:29)
[2019-07-19] MEDS: DULoxetine 30 MG (CYMBALTA) CAP PO SCH ×2 (08:57→21:29)
[2019-07-19] MEDS: DICLOFENAC 1% GEL 100 GM (VOLTAREN) TUBE TOP SCH ×4 (08:58→21:30)
[2019-07-19] MEDS ORDERED: lisINopril 20 MG (PRINIVIL) TABLET PO SCH (09:00)
[2019-07-19] MEDS ORDERED: lisINopril 40 MG (PRINIVIL) TABLET PO SCH (09:00)
--- NOTE | 2019-07-19 09:30 | Progress Note - Surgery ---
EFRAIN MONDRAGON MED STUDENT 07/19/19 0930: Subjective Date Seen by a Provider: Jul 19, 2019 Time Seen by a Provider: 07:10 Subjective/Events-last exam Mr. Lopez reports feeling improved overall. He continues to have SOB, although it is improved. He denies having any recurrence of hematochezia, and his only abdominal pain is periumbilical pain that is chronic, which he attributes to his hernia. He was potentially going to be discharged today, but reports that he will have to stay the weekend due to his kidney function. CXR shows increasing combination of infiltrate and/or edema along with effusion at the right lung base. BUN 27 and Cr 1.39 this morning. Review of Systems General: No Chills, No Fatigue HEENT: No Sinus Congestion, No Sore Throat Pulmonary: Dyspnea, Cough Cardiovascular: Edema; No: Chest Pain, Palpitations, Lt Headedness Gastrointestinal: Abdominal Pain; No: Nausea, Diarrhea, Constipation, Melena, Hematochezia Genitourinary: No Dysuria, No Hematuria Neurological: No: Weakness, Numbness Objective Exam Vital Signs Date Time Temp Pulse Resp B/P (MAP) Pulse Ox O2 Delivery O2 Flow Rate FiO2 07/19/19 07:15 94 Nasal Cannula 5.00 07/19/19 06:45 64 07/19/19 04:00 36.1 50 18 113/42 (65) 98 NIV Bilevel 40.00 07/19/19 02:24 93 Nasal Cannula 5.00 07/19/19 01:00 60 07/19/19 00:20 36.2 51 20 119/61 (80) 100 NIV Bilevel 40.00 07/18/19 20:50 91 Nasal Cannula 5.00 07/18/19 20:01 Nasal Cannula 4.00 07/18/19 20:00 36.5 56 18 136/60 (85) 99 NIV Bilevel 40.00 07/18/19 19:00 56 07/18/19 16:00 36.7 60 20 130/60 (83) 96 Nasal Cannula 5.00 07/18/19 13:55 90 Nasal Cannula 5.00 07/18/19 13:00 66 07/18/19 12:00 36.9 61 20 126/59 (81) 95 Nasal Cannula 5.00 07/18/19 10:25 95 Nasal Cannula 5.00 I & O 07/19/19 07:00 Intake Total 2140 ml Output Total 2875 ml Balance -735 ml Capillary Refill : Less Than 3 SecondsLess Than 3 Seconds General Appearance: No Apparent Distress, Obese Neck: Non Tender, Supple Respiratory: No Accessory Muscle Use, No Respiratory Distress, Decreased Breath Sounds Cardiovascular: Regular Rate, Rhythm, Normal Peripheral Pulses, Systolic Murmur Peripheral Pulses: 2+ Radial Pulses (R), 2+ Radial Pulses (L) Gastrointestinal: non tender, soft Extremity: Pedal Edema, Other Neurologic/Psychiatric: Alert, Oriented x3, Normal Mood/Affect Skin: Normal Color, Warm/Dry, Other (raised lesion on R buttock, looks like skin tag) Lymphatic: No Adenopathy Results Lab Laboratory Tests 07/18/19 10:58: Glucometer 110 07/18/19 16:06: Glucometer 94 07/18/19 20:05: Glucometer 113H 07/19/19 04:30: White Blood Count 7.4, Red Blood Count 3.24L, Hemoglobin 9.0L, Hematocrit 30L, Mean Corpuscular Volume 94, Mean Corpuscular Hemoglobin 28, Mean Corpuscular Hemoglobin Concent 30L, Red Cell Distribution Width 16.3H, Platelet Count 130, Mean Platelet Volume 9.6, Neutrophils (%) (Auto) 66, Lymphocytes (%) (Auto) 20, Monocytes (%) (Auto) 12, Eosinophils (%) (Auto) 2, Basophils (%) (Auto) 0, Neutrophils # (Auto) 4.9, Lymphocytes # (Auto) 1.5, Monocytes # (Auto) 0.9, Eosinophils # (Auto) 0.2, Basophils # (Auto) 0.0, Sodium Level 143, Potassium Level 4.0, Chloride Level 94L, Carbon Dioxide Level 41H, Anion Gap 8, Blood Urea Nitrogen 27H, Creatinine 1.39H, Estimat Glomerular Filtration Rate 51, BUN/Creatinine Ratio 19, Glucose Level 138H, Calcium Level 9.1, Phosphorus Level 3.2, Magnesium Level 2.0, B-Type Natriuretic Peptide 361.1H 07/19/19 06:01: Glucometer 108 Microbiology 07/14/19 Blood Culture - Preliminary, Resulted No growth 07/15/19 Gram Stain - Final, Complete 07/15/19 Sputum Culture - Final, Complete Usual upper respiratory analilia Assessment/Plan Assessment/Plan Assessment/Plan CHF anemia history of GI bleed No recurrence of hematochezia or melena, monitor H&H and await results of fecal occult blood test. Clinical Quality Measures DVT/VTE Risk/Contraindication: Risk Factor Score Per Nursin RFS Level Per Nursing on Admit: 4+=Very High Contraindications-Pharm: Other *list below* JAIRON HA DO 07/19/19 0943: Subjective Time Seen by a Provider: 09:09 Subjective/Events-last exam Pt seen and examined. States they are keeping him over the weekend because of his kidney fxn. Assessment/Plan Assessment/Plan Assessment/Plan I will sign off, but Dr. Oliveira is available this weekend if anything changes. Supervisory-Addendum Brief Verification & Attestation Participated in pt care: history, MDM, physical Personally performed: exam, history, MDM Care discussed with: Medical Student Procedures: n/a Verification and Attestation of Medical Student E/M Service A medical student performed and documented this service in my presence. I reviewed and verified all information documented by the medical student and made modifications to such information, when appropriate. I personally performed the physical exam and medical decision making. Jairon Ha, Jul 19, 2019,09:43 EFRAIN MONDRAGON MED STUDENT Jul 19, 2019 09:30 JAIRON SEGURA DO Jul 19, 2019 09:43 POS
--- NOTE | 2019-07-19 13:55 | NUR ---
RD ASSESSMENT PMHx: CAD; hypercholesterolemia; HTN; DM; CHF; COPD PT INTERACTION: Pt was awake and pleasant during nutrition assessment for LOS. Pt states current appetite is good, and has been good since last admission. Note pt avg PO intake is 100% x3d, per chart review. Pt states still following a regular diet at home and currently has no teeth. Pt states no recent issues with n/v/c/d at this time. Note last BM was 07/19, and pt not currently on bowel regimen, per chart review. Pt states gaining some weight since last admit, attributing it to fluid buildup. Note pt's wt fluctuates between 319# (07/04/19) and 348# (04/07/19). Pt current weight is 333#, per chart review. Upon visual exam, pt appears very well nourished with no visible signs of muscle/fat wasting and a BMI of 47.8. ABNORMAL NUTRITION-RELATED LAB VALUES: Cl 94 (L); BUN 27 (H); cr 1.39 (H); glu 139 (H) Est. kcal needs: 1121-9880 kcal (15-18 kcal/kg) Est. Pro needs: 120-151 g Pro (0.8-1.0 g Pro/kg) PES STATEMENT: Given pt's PO intake, no nutrition diagnosis at this time (NO-1.1) INTERVENTION: Continue with current diet order of Heart Healthy diet, with modifier of DRY TRAYS, d/t to fluid restriction. MONITOR/EVALUATE: PO Intake; Plan of Care; Hydration Status; Weight Status; Lab Values Steve Benavides, MS, RD, LD
[2019-07-19 16:14] VITALS: BP 106/58
[2019-07-20] VITALS: BP 105/68
[2019-07-20] MEDS: RT-ALBUTEROL/IPRATROPIUM 3 ML (DUONEB) VIAL IH SCH ×6 (02:33→21:56)
[2019-07-20 04:10] LABS: BASOPHILS % (AUTO) 0 % (0-10); EOSINOPHILS # (AUTO) 0.1 10^3/uL (0.0-0.3); EOSINOPHILS % (AUTO) 1 % (0-10); HEMATOCRIT 31 % (40-54); HEMOGLOBIN 9.1 G/DL (13.3-17.7); LYMPHOCYTES # (AUTO) 1.4 X 10^3 (1.0-4.0); LYMPHOCYTES % (AUTO) 19 % (12-44); MEAN CORPUSCULAR HEMOGLOBIN 28 PG (25-34); MEAN CORPUSCULAR HGB CONC 30 G/DL (32-36); MEAN CORPUSCULAR VOLUME 93 FL (80-99); MEAN PLATELET VOLUME 9.4 FL (7.4-10.4); MONOCYTES # (AUTO) 0.9 X 10^3 (0.0-1.0); MONOCYTES % (AUTO) 11 % (0-12); NEUTROPHILS # (AUTO) 5.3 X 10^3 (1.8-7.8); NEUTROPHILS % (AUTO) 69 % (42-75); PLATELET COUNT 133 10^3/uL (130-400); RED CELL DISTRIBUTION WIDTH 16.4 % (10.0-14.5); WHITE BLOOD COUNT 7.7 10^3/uL (4.3-11.0)
[2019-07-20 04:28] LABS: BUN/CREATININE RATIO 21; CALCIUM 9.1 MG/DL (8.5-10.1); CARBON DIOXIDE 38 MMOL/L (21-32); CHLORIDE 95 MMOL/L (98-107); GFR ESTIMATED > 60; GLUCOSE 83 MG/DL (70-105); MAGNESIUM 2.1 MG/DL (1.6-2.4); PHOSPHORUS 3.5 MG/DL (2.3-4.7); POTASSIUM 4.1 MMOL/L (3.6-5.0); SODIUM 142 MMOL/L (135-145)
--- NOTE | 2019-07-20 04:41 | Cardiology Progress Note ---
Subjective Date Seen by Provider: Jul 20, 2019 Time Seen by Provider: 04:38 Subjective/Events-last exam Patient is in bed, on C Pap. No chest pain. Review of Systems General: No Chills, No Night Sweats, No Fatigue, No Malaise, No Appetite, No Other HEENT: No Head Aches, No Visual Changes, No Eye Pain, No Ear Pain, No Dysphasia, No Sinus Congestion, No Post Nasal Drip, No Sore Throat, No Other Pulmonary: Dyspnea; No Cough, No Pleuritic Chest Pain, No Other Cardiovascular: Edema; No: Chest Pain, Palpitations, Orthopnea, Paroxysmal Noc. Dyspnea, Lt Headedness, Other Objective-Cardiology Exam Last Set of Vital Signs Vital Signs 07/15/19 07/19/19 07/19/19 07/20/19 04:00 16:14 21:00 02:33 Temp 36.6 Pulse 60 Resp 18 B/P (MAP) 106/58 (74) Pulse Ox 94 O2 Delivery Nasal Cannula O2 Flow Rate 40.00 FiO2 30 Capillary Refill : Less Than 3 SecondsLess Than 3 Seconds I&O Intake and Output 07/20/19 00:00 Intake Total 2120 ml Output Total 1250 ml Balance 870 ml Intake Oral 2120 ml Output Urine Total 1250 ml # Voids 2 # Bowel Movements 3 General: Alert, Oriented X3, Cooperative HEENT: Atraumatic, PERRLA Neck: Supple, No JVD, No Thyromegaly Lungs: Clear to Auscultation, Normal Air Movement Heart: Regular Rate, Normal S1, Normal S2, No Murmurs Abdomen: Normal Bowel Sounds, Soft, No Tenderness, No Hepatosplenomegaly, No Masses Extremities: No Clubbing, No Cyanosis, Normal Pulses, No Tenderness/Swelling, Other (Peripheral edema) Skin: No Rashes, No Breakdown, No Significant Lesion Neuro: Normal Gait, Normal Speech, Strength at 5/5 X4 Ext, Normal Tone, Sensation Intact Psych/Mental Status: Mental Status NL, Mood NL Results Lab Laboratory Tests 07/20/19 03:50 A/P-Cardiology Admission Diagnosis Shortness of breath Congestive heart failure Hypertension Hyperlipidemia Assessment/Plan Shortness of breath, multifactorial, worsening at this time, acute on chronic left ventricular diastolic dysfunction, normal systolic function, echo was done in July 2019 and reporting ejection fraction 60 percent with bilateral atrial enlargement, left ventricular hypertrophy, mild MR and TR, aortic valve sclerosis, PA pressure 50 mmHg. I'll give additional dose of Lasix and evaluate tolerance and response. COPD with acute exacerbation secondary to pneumonia, using C Pap. Recurrent GI bleeds leading to anemia requiring transfusions - scope per Dr. Gaytan on 06/28/19: Colon Polyps Internal hemorrhoids; Gastritis ; Hiatal hernia. Endoscopy of Jul 11, 2019 at [facility] showed sigmoid and ascending colon ulcer, nonbleeding (per D/C summary by Dr. Stack) SSS. H/o PAF, currently asymptomatic sinus mateo Hemoptysis during hospitalization of Jun 2019, small qty, managed by the Med Svce. Bronchoscopy on 07/03/19 did not indicate any active bleed or inflammation OAC with Eliquis - holding due to recurrent GI bleeds Hypertension, continue to monitor blood pressure Mild to moderate CAD on coronary angiography in 2010 , continue to monitor Obesity with obesity-hypoventilation, TERE, and pulm hypertension. PASP was 60-65 mmHg on echo of 2015; 45-50 mmHg on echo of 01/04/19 Marijuana use (urine test positive in January 2019) Chronic narcotic use d/t chronic back and joint pain Clinical Quality Measures DVT/VTE Risk/Contraindication: Risk Factor Score Per Nursin RFS Level Per Nursing on Admit: 4+=Very High Contraindications-Pharm: Other *list below* VANCE HAMMOND MD Jul 20, 2019 04:41 POS
[2019-07-20] MEDS ORDERED: FUROSEMIDE 40 MG/4 ML INJ (LASIX) IVP ONE (04:45)
[2019-07-20] MEDS ORDERED: FUROSEMIDE 40 MG (LASIX) TAB PO ONE (05:15)
[2019-07-20] MEDS: inSUlin ASPART (NovoLOG) 1 UNIT/0.01 ML (CHARGE PER UNIT) SC SCH ×3 (06:16→16:30)
[2019-07-20] MEDS: MULTIVIT W/MINERALS TAB (THERAGRAN M) PO SCH (06:20)
[2019-07-20] MEDS: CYANOCOBALAMIN 1,000 MCG (VITAMIN B-12) TABLET PO SCH (06:20)
[2019-07-20] MEDS: RT-ADVAIR HFA 115/21 MCG PER PUFF IH SCH ×2 (07:14→19:16)
--- NOTE | 2019-07-20 07:36 | Pulmonary Progress Note ---
Subjective Time Seen by a Provider: 07:35 Subjective/Events-last exam No complications noted. Sepsis Event Evaluation Height, Weight, BMI Height: 5'10.00" Weight: 348lbs. 6.0oz. 158.204408hr; 46.00 BMI Method:Stated Exam Exam Vital Signs Date Time Temp Pulse Resp B/P (MAP) Pulse Ox O2 Delivery O2 Flow Rate FiO2 07/20/19 07:15 60 18 94 40.00 07/20/19 02:33 60 18 94 40.00 07/20/19 00:00 36.9 53 20 105/68 (80) 100 NIV Bilevel 40.00 07/19/19 21:25 55 16 95 40.00 07/19/19 21:00 Nasal Cannula 4.00 07/19/19 20:15 Nasal Cannula 4.00 07/19/19 20:13 92 Nasal Cannula 4.00 07/19/19 19:19 Nasal Cannula 4.00 07/19/19 16:14 36.6 49 20 106/58 (74) 100 NIV Bilevel 40.00 07/19/19 15:31 90 Nasal Cannula 4.00 07/19/19 11:28 95 Nasal Cannula 5.00 07/19/19 08:00 36.1 61 18 149/68 (95) 95 NIV Bilevel 40.00 07/19/19 08:00 Nasal Cannula 4.00 I & O 07/20/19 07:00 Intake Total 1870 ml Output Total 1375 ml Balance 495 ml Height & Weight Height: 5'10.00" Weight: 348lbs. 6.0oz. 158.676655bh; 46.00 BMI Method:Stated General Appearance: No Apparent Distress, Obese Neck: Non Tender, Supple Respiratory: No Accessory Muscle Use, No Respiratory Distress, Decreased Breath Sounds Cardiovascular: Regular Rate, Rhythm, Normal Peripheral Pulses, Systolic Murmur Capillary Refill: Less Than 3 Seconds Peripheral Pulses: 2+ Radial Pulses (R), 2+ Radial Pulses (L) Gastrointestinal: non tender, soft Extremity: Pedal Edema, Other Neurologic/Psychiatric: Alert, Oriented x3, Normal Mood/Affect Skin: Normal Color, Warm/Dry, Other (raised lesion on R buttock, looks like skin tag) Lymphatic: No Adenopathy Results Lab Laboratory Tests 07/19/19 04:30 07/20/19 03:50 Assessment/Plan Assessment/Plan Acute on chronic respiratory failure with hypoxia -Recurrent hospitalizations -S/P Thoracentesis 07/17/19, 1400mL serous transudative fluid drained -Monitor CXR. -On BiPAP 40% O2 at night 5L NC during day -Duoneb RT Q4hr -Proventil Q4PRN -Pt has home vent to mask already COPD exacerbation -Duonebs -Sputum culture grew normal respiratory analilia -Repeat BNP probably needs more lasix CHF -monitor AFib RVR -Consider resuming Eliquis, was on hold secondary to GIB HTN -Lisinopril 10mg daily -Hydralazine 10mg when SBP >160 HLD -Atorvastatin 10mg daily Recent Hx of GI bleed -Surgery consulted TIFFANI -monitor JHON STEPHENSON DO Jul 20, 2019 07:36 POS
[2019-07-20 08:00] VITALS: BP 138/56
[2019-07-20] MEDS: busPIRone 10 MG (BUSPAR) TAB PO SCH ×2 (08:51→21:00)
[2019-07-20] MEDS: amLODIPine 5 MG (NORVASC) TAB PO SCH ×2 (08:51→20:27)
[2019-07-20] MEDS: PANTOPRAZOLE 40 MG (PROTONIX) TAB PO SCH (08:52)
[2019-07-20] MEDS: VITAMIN D3 1,000 UNITS (CHOLECALCIFEROL) TABLET PO SCH (08:52)
[2019-07-20] MEDS: HYDROcodone/APAP 5 MG/325 MG (LORTAB) TAB PO PRN ×3 (08:52→22:04)
[2019-07-20] MEDS: meTOproloL SUCCINATE 50 MG (TOPROL XL) TAB PO SCH (08:53)
[2019-07-20] MEDS: ROFLUMILAST 500 MCG TAB (DALIRESP) PO SCH (08:53)
[2019-07-20] MEDS: DULoxetine 30 MG (CYMBALTA) CAP PO SCH ×2 (08:53→20:27)
[2019-07-20] MEDS: AMIODARONE 200 MG (CORDARONE) TAB PO SCH (08:53)
[2019-07-20] MEDS: FAMOTIDINE 20 MG (PEPCID) TABLET PO SCH ×2 (08:53→20:27)
[2019-07-20] MEDS: ASPIRIN 81 MG CHEW (CHILDREN'S ASA) PO SCH (08:53)
[2019-07-20] MEDS: DICLOFENAC 1% GEL 100 GM (VOLTAREN) TUBE TOP SCH ×4 (08:54→20:29)
--- NOTE | 2019-07-20 09:31 | Diagnostic Imaging Report ---
INDICATION: COPD and pleural effusion. TIME OF EXAM: 9:10 AM CORRELATION is made with prior chest from one day earlier. Heart is enlarged but stable. Right basilar infiltrate is noted. There has been development of a right-sided effusion. Left lung is fairly clear. There is central congestion. No pneumothorax is seen. IMPRESSION: Development of right-sided effusion since yesterday. There is central congestion and right basilar infiltrate. Dictated by: Dictated on workstation # [id number]
[2019-07-20] MEDS: PREGABALIN 150 MG (LYRICA) CAPSULE PO SCH ×2 (09:54→20:27)
--- NOTE | 2019-07-20 11:39 | Progress Note - Hospitalist ---
Subjective HPI/CC On Admission Date Seen by Provider: Jul 20, 2019 Time Seen by Provider: 09:45 shortness of breath Subjective/Events-last exam He reports feeling short of breath today. He feels like his lung is filling with fluid again. He denies fevers and chills. He denies chest pain. He denies abdominal pain, nausea, and vomiting. Objective Exam Vital Signs Vital Signs Date Time Temp Pulse Resp B/P (MAP) Pulse Ox O2 Delivery O2 Flow Rate FiO2 07/20/19 11:22 Nasal Cannula 4.00 07/20/19 11:22 92 07/20/19 08:00 64 20 138/56 (83) 07/20/19 00:00 36.9 07/15/19 04:00 30 Capillary Refill : Less Than 3 SecondsLess Than 3 Seconds General Appearance: No Apparent Distress, WD/WN, Obese HEENT: PERRL/EOMI, Pharynx Normal Neck: Normal Inspection, Supple Respiratory: Lungs Clear, Normal Breath Sounds, No Respiratory Distress, Decreased Breath Sounds (right middle and lower lobes) Cardiovascular: Regular Rate, Rhythm, No Murmur Gastrointestinal: Normal Bowel Sounds, Non Tender, Soft Extremity: Normal Inspection, Non Tender, Pedal Edema, Swelling Neurologic/Psychiatric: Alert, Oriented x3, No Motor/Sensory Deficits, Normal Mood/Affect Skin: Normal Color, Warm/Dry Lymphatic: No Adenopathy Results/Procedures Lab Laboratory Tests 07/20/19 03:50 Patient resulted labs reviewed. Imaging: Reviewed Imaging Films, Reviewed Imaging Report Assessment/Plan Assessment and Plan Assess & Plan/Chief Complaint Acute on chronic hypoxemic respiratory failure Acute COPD exacerbation Acute on chronic heart failure Right pleural effusion -s/p thoracentesis -CXR demonstrated reaccumulating right effusion -Lasix ordered -Pulmonology following -MAT protocol ADDIE -Cr improving today -Resume Lasix Paroxysmal atrial fibrillation -Continue metoprolol and amiodarone -Eliquis held due to recurrent GI bleeding HTN -Continue lisinopril, metoprolol, and amlodipine HLD -Continue statin CAD -Continue ASA and Lipitor Recurrent GI bleeds -Holding Eliquis Morbid obesity TERE/OHS -Continue BiPAP DVT Prophylaxis: held due to recent major bleeding Diagnosis/Problems Diagnosis/Problems (1) Acute on chronic respiratory failure Status: Acute (2) ADDIE (acute kidney injury) Status: Resolved Resolution Date/Time: 07/20/19 @ 11:41 (3) Recurrent gastrointestinal hemorrhage Status: Chronic (4) COPD exacerbation Status: Acute (5) TERE treated with BiPAP Status: Chronic (6) Acute heart failure with preserved ejection fraction Status: Acute (7) Morbid obesity Status: Chronic (8) Paroxysmal atrial fibrillation Status: Chronic (9) HLD (hyperlipidemia) Status: Chronic (10) HTN (hypertension) Status: Chronic (11) CAD (coronary artery disease) Status: Chronic Clinical Quality Measures DVT/VTE Risk/Contraindication: Risk Factor Score Per Nursin RFS Level Per Nursing on Admit: 4+=Very High Contraindications-Pharm: Other *list below* IVAN FONG MD Jul 20, 2019 11:39 POS
[2019-07-20 16:00] VITALS: BP 130/60
[2019-07-21] VITALS: BP 110/64
[2019-07-21] MEDS: inSUlin ASPART (NovoLOG) 1 UNIT/0.01 ML (CHARGE PER UNIT) SC SCH ×3 (00:43→12:03)
[2019-07-21] MEDS: HYDROcodone/APAP 5 MG/325 MG (LORTAB) TAB PO PRN ×2 (02:34→12:14)
[2019-07-21] MEDS: RT-ALBUTEROL/IPRATROPIUM 3 ML (DUONEB) VIAL IH SCH ×3 (03:03→11:13)
[2019-07-21 05:26] LABS: BASOPHILS % (AUTO) 0 % (0-10); EOSINOPHILS # (AUTO) 0.2 10^3/uL (0.0-0.3); EOSINOPHILS % (AUTO) 2 % (0-10); HEMATOCRIT 31 % (40-54); LYMPHOCYTES # (AUTO) 1.2 X 10^3 (1.0-4.0); LYMPHOCYTES % (AUTO) 16 % (12-44); MEAN CORPUSCULAR HEMOGLOBIN 28 PG (25-34); MEAN CORPUSCULAR HGB CONC 30 G/DL (32-36); MEAN CORPUSCULAR VOLUME 95 FL (80-99); MEAN PLATELET VOLUME 9.7 FL (7.4-10.4); MONOCYTES % (AUTO) 12 % (0-12); NEUTROPHILS # (AUTO) 5.5 X 10^3 (1.8-7.8); NEUTROPHILS % (AUTO) 70 % (42-75); PLATELET COUNT 126 10^3/uL (130-400); RED CELL DISTRIBUTION WIDTH 16.3 % (10.0-14.5); WHITE BLOOD COUNT 7.9 10^3/uL (4.3-11.0)
[2019-07-21] MEDS: CYANOCOBALAMIN 1,000 MCG (VITAMIN B-12) TABLET PO SCH (05:34)
[2019-07-21] MEDS: MULTIVIT W/MINERALS TAB (THERAGRAN M) PO SCH (05:35)
--- NOTE | 2019-07-21 05:53 | Pulmonary Progress Note ---
Subjective Time Seen by a Provider: 05:52 Sepsis Event Evaluation Height, Weight, BMI Height: 5'10.00" Weight: 348lbs. 6.0oz. 158.589621jk; 46.00 BMI Method:Stated Exam Exam Vital Signs Date Time Temp Pulse Resp B/P (MAP) Pulse Ox O2 Delivery O2 Flow Rate FiO2 07/21/19 03:03 88 Nasal Cannula 4.00 07/21/19 03:00 36.4 07/21/19 00:00 36.4 53 19 110/64 (79) 98 NIV Bilevel 40.00 07/20/19 22:04 36.9 07/20/19 21:56 93 Nasal Cannula 4.00 07/20/19 21:00 36.9 07/20/19 20:00 93 Nasal Cannula 4.00 07/20/19 19:15 62 23 93 40.00 07/20/19 16:00 36.9 56 16 130/60 (83) 95 Nasal Cannula 5.00 07/20/19 14:54 84 Nasal Cannula 4.00 07/20/19 11:22 Nasal Cannula 4.00 07/20/19 11:22 92 Nasal Cannula 4.00 07/20/19 09:00 94 Nasal Cannula 4.00 07/20/19 08:00 64 20 138/56 (83) 94 Nasal Cannula 07/20/19 07:15 60 18 94 40.00 I & O 07/21/19 07:00 Intake Total 2220 ml Output Total 1850 ml Balance 370 ml Height & Weight Height: 5'10.00" Weight: 348lbs. 6.0oz. 158.170255nf; 46.00 BMI Method:Stated General Appearance: No Apparent Distress, Obese HEENT: PERRL/EOMI, Pharynx Normal Neck: Non Tender, Supple Respiratory: No Accessory Muscle Use, No Respiratory Distress, Decreased Breath Sounds Cardiovascular: Regular Rate, Rhythm, Normal Peripheral Pulses, Systolic Murmur Capillary Refill: Less Than 3 Seconds Peripheral Pulses: 2+ Radial Pulses (R), 2+ Radial Pulses (L) Gastrointestinal: non tender, soft Extremity: Pedal Edema, Other Neurologic/Psychiatric: Alert, Oriented x3, Normal Mood/Affect Skin: Normal Color, Warm/Dry, Other (raised lesion on R buttock, looks like skin tag) Lymphatic: No Adenopathy Results Lab Laboratory Tests 07/20/19 03:50 07/21/19 05:05 Assessment/Plan Assessment/Plan Acute on chronic respiratory failure with hypoxia -Recurrent hospitalizations -S/P Thoracentesis 07/17/19 -Monitor CXR. -On BiPAP 40% O2 at night 5L NC during day -Duoneb RT Q4hr -Proventil Q4PRN -Pt has home vent to mask already COPD exacerbation -Duonebs -Sputum culture grew normal respiratory analilia CHF -monitor -Restart Bumex AFib RVR HTN HLD Recent Hx of GI bleed -Surgery consulted TIFFANI -monitor JHON STEPHENSON DO Jul 21, 2019 05:53 POS
[2019-07-21 05:57] LABS: CREATININE SERUM 1.35 MG/DL (0.60-1.30); PHOSPHORUS 3.2 MG/DL (2.3-4.7); POTASSIUM 4.5 MMOL/L (3.6-5.0)
[2019-07-21] MEDS ORDERED: BUMETANIDE 1 MG/4 ML (BUMEX) VIAL IV ONE (06:00)
[2019-07-21] MEDS: RT-ADVAIR HFA 115/21 MCG PER PUFF IH SCH (06:55)
[2019-07-21] MEDS ORDERED: KCL 20 MEQ TAB (K-DUR) PO SCH ×2 (07:00→09:00)
--- NOTE | 2019-07-21 07:26 | Cardiology Progress Note ---
Subjective Date Seen by Provider: Jul 21, 2019 Time Seen by Provider: 07:25 Subjective/Events-last exam Patient is laying down in bed, feeling better today, using nasal cannula, improvement in breathing, still having pedal edema Review of Systems General: No Chills, No Night Sweats, No Fatigue, No Malaise, No Appetite, No Other HEENT: No Head Aches, No Visual Changes, No Eye Pain, No Ear Pain, No Dysphasia, No Sinus Congestion, No Post Nasal Drip, No Sore Throat, No Other Pulmonary: Dyspnea; No Cough, No Pleuritic Chest Pain, No Other Cardiovascular: Edema; No: Chest Pain, Palpitations, Orthopnea, Paroxysmal Noc. Dyspnea, Lt Headedness, Other Objective-Cardiology Exam Last Set of Vital Signs Vital Signs 07/15/19 07/21/19 07/21/19 04:00 00:00 03:00 Temp 36.4 Pulse 53 Resp 19 B/P (MAP) 110/64 (79) FiO2 30 Capillary Refill : Less Than 3 SecondsLess Than 3 Seconds I&O Intake and Output 07/21/19 00:00 Intake Total 1920 ml Output Total 750 ml Balance 1170 ml Intake Oral 1920 ml Output Urine Total 750 ml # Voids 2 # Bowel Movements 1 General: Alert, Oriented X3, Cooperative HEENT: Atraumatic, PERRLA Neck: Supple, No JVD, No Thyromegaly Lungs: Clear to Auscultation, Normal Air Movement Heart: Regular Rate, Normal S1, Normal S2, No Murmurs Abdomen: Normal Bowel Sounds, Soft, No Tenderness, No Hepatosplenomegaly, No Masses Extremities: No Clubbing, No Cyanosis, Normal Pulses, No Tenderness/Swelling, Other (Peripheral edema) Skin: No Rashes, No Breakdown, No Significant Lesion Neuro: Normal Gait, Normal Speech, Strength at 5/5 X4 Ext, Normal Tone, Sensation Intact Psych/Mental Status: Mental Status NL, Mood NL Results Lab Laboratory Tests 07/21/19 05:05 A/P-Cardiology Admission Diagnosis Shortness of breath Congestive heart failure Hypertension Hyperlipidemia Assessment/Plan Shortness of breath, multifactorial, acute on chronic left ventricular diastolic dysfunction, normal systolic function, echo was done in July 2019 and reporting ejection fraction 60 percent with bilateral atrial enlargement, left ventricular hypertrophy, mild MR and TR, aortic valve sclerosis, PA pressure 50 mmHg. started on Bumex, continue to monitor Acute renal insufficiency, probably secondary to aggressive diuresis. Started on Bumex. Monitor renal function COPD with acute exacerbation secondary to pneumonia, improving, managed by Dr. Forrest Recurrent GI bleeds leading to anemia requiring transfusions - scope per Dr. Gaytan on 06/28/19: Colon Polyps Internal hemorrhoids; Gastritis ; Hiatal jadyn ia. Endoscopy of Jul 11, [address] [facility] showed sigmoid and ascending colon ulcer, nonbleeding (per D/C summary by Dr. Stack) SSS. H/o PAF, currently asymptomatic sinus mateo Hemoptysis during hospitalization of Jun 2019, small qty, managed by the Med Svce. Bronchoscopy on 07/03/19 did not indicate any active bleed or inflammation OAC with Eliquis - holding due to recurrent GI bleeds Hypertension, continue to monitor blood pressure Mild to moderate CAD on coronary angiography in 2010 , continue to monitor Obesity with obesity-hypoventilation, TERE, and pulm hypertension. PASP was 60-65 mmHg on echo of 2015; 45-50 mmHg on echo of 01/04/19 Marijuana use (urine test positive in January 2019) Chronic narcotic use d/t chronic back and joint pain Clinical Quality Measures DVT/VTE Risk/Contraindication: Risk Factor Score Per Nursin RFS Level Per Nursing on Admit: 4+=Very High Contraindications-Pharm: Other *list below* VANCE HAMMOND MD Jul 21, 2019 07:26 POS
[2019-07-21 08:00] VITALS: BP 147/63
[2019-07-21] MEDS ORDERED: BUMETANIDE 1 MG (BUMEX) TAB PO SCH ×2 (09:00)
[2019-07-21] MEDS: ROFLUMILAST 500 MCG TAB (DALIRESP) PO SCH (09:22)
[2019-07-21] MEDS: busPIRone 10 MG (BUSPAR) TAB PO SCH (09:23)
[2019-07-21] MEDS: PANTOPRAZOLE 40 MG (PROTONIX) TAB PO SCH (09:23)
[2019-07-21] MEDS: FAMOTIDINE 20 MG (PEPCID) TABLET PO SCH (09:23)
[2019-07-21] MEDS: DULoxetine 30 MG (CYMBALTA) CAP PO SCH (09:23)
[2019-07-21] MEDS: amLODIPine 5 MG (NORVASC) TAB PO SCH (09:23)
[2019-07-21] MEDS: AMIODARONE 200 MG (CORDARONE) TAB PO SCH (09:23)
[2019-07-21] MEDS: VITAMIN D3 1,000 UNITS (CHOLECALCIFEROL) TABLET PO SCH (09:23)
[2019-07-21] MEDS: ASPIRIN 81 MG CHEW (CHILDREN'S ASA) PO SCH (09:23)
[2019-07-21] MEDS: meTOproloL SUCCINATE 50 MG (TOPROL XL) TAB PO SCH (09:23)
[2019-07-21] MEDS: DICLOFENAC 1% GEL 100 GM (VOLTAREN) TUBE TOP SCH ×2 (09:25→12:04)
[2019-07-21] MEDS: PREGABALIN 150 MG (LYRICA) CAPSULE PO SCH (09:25)
--- NOTE | 2019-07-21 09:37 | Diagnostic Imaging Report ---
INDICATION: Follow-up fusion. COMPARISON: 07/20/2019 FINDINGS: Frontal and lateral radiographic views of the chest were obtained and again show moderate right basilar effusion and trace left effusion. Pulmonary interstitium is diffusely prominent. There is no pneumothorax on either side. Cardiac silhouette and pulmonary vasculature are also enlarged. Osseous structures show no acute abnormalities. IMPRESSION: 1. Stable exam of the chest showing cardiomegaly with sequela of CHF including bibasilar effusions, right greater than left. Dictated by: Dictated on workstation # [id number]
[2019-07-21] MEDS ORDERED: BUME1TAB8 PO (10:43)
--- NOTE | 2019-07-21 11:58 | Discharge Summary ---
Discharge Summary Hospital Course Was the Problem List Reviewed?: Yes Problems/Dx: (1) Acute on chronic respiratory failure Status: Acute (2) ADDIE (acute kidney injury) Status: Resolved (3) Recurrent gastrointestinal hemorrhage Status: Chronic (4) COPD exacerbation Status: Acute (5) TERE treated with BiPAP Status: Chronic (6) Acute heart failure with preserved ejection fraction Status: Acute (7) Morbid obesity Status: Chronic (8) Paroxysmal atrial fibrillation Status: Chronic (9) HLD (hyperlipidemia) Status: Chronic (10) HTN (hypertension) Status: Chronic (11) CAD (coronary artery disease) Status: Chronic Hospital Course Date of Admission: Jul 14, 2019 at 22:00 Admission Diagnosis : Acute on chronic respiratory failure with hypoxia Family Physician/Provider: Danita Tee DO Date of Discharge: 07/21/19 Discharge Diagnosis: Acute on chronic respiratory failure with hypoxia, pleural effusion Hospital Course: Kennedy Lopez is a 63yoM with multiple comorbidities who presented with acute on chronic respiratory failure with hypoxia. He was found to have a pleural effusion which was drained by pulmonary. He was given diuretics and responded well. He has a history of recurrent GI bleeding most recently the week before admission. His Eliquis is being held due to recurrent bleeding. He was transitioned from Lasix to Bumex. He should follow up with cardiology, pulmonology, and his primary care doctor. Labs and Pending Lab Test: Laboratory Tests 07/20/19 11:38: Glucometer 111H 07/20/19 15:53: Glucometer 120H 07/20/19 20:24: Glucometer 162H 07/21/19 05:05: White Blood Count 7.9, Red Blood Count 3.21L, Hemoglobin 9.0L, Hematocrit 31L, Mean Corpuscular Volume 95, Mean Corpuscular Hemoglobin 28, Mean Corpuscular Hemoglobin Concent 30L, Red Cell Distribution Width 16.3H, Platelet Count 126L, Mean Platelet Volume 9.7, Neutrophils (%) (Auto) 70, Lymphocytes (%) (Auto) 16, Monocytes (%) (Auto) 12, Eosinophils (%) (Auto) 2, Basophils (%) (Auto) 0, Neutrophils # (Auto) 5.5, Lymphocytes # (Auto) 1.2, Monocytes # (Auto) 1.0, Eosinophils # (Auto) 0.2, Basophils # (Auto) 0.0, Sodium Level 142, Potassium Level 4.5, Chloride Level 95L, Carbon Dioxide Level 39H, Anion Gap 8, Blood Urea Nitrogen 25H, Creatinine 1.35H, Estimat Glomerular Filtration Rate 53, BUN/Creatinine Ratio 19, Glucose Level 118H, Calcium Level 9.0, Phosphorus Level 3.2, Magnesium Level 2.0 Microbiology 07/14/19 Blood Culture - Final, Complete No growth 07/17/19 Gram Stain - Final, Complete 07/17/19 Body Fluid Culture - Final, Complete No growth 07/15/19 Gram Stain - Final, Complete 07/15/19 Sputum Culture - Final, Complete Usual upper respiratory analilia Home Meds Active Bumetanide 1 Mg Tablet 1 Mg PO DAILY 30 Days Reported Iprat-Albut 0.5-3(2.5) mg/3 ml (Ipratropium/Albuterol Sulfate) 3 Ml Ampul.neb 3 Ml IH Q4H PRN Breo Ellipta 200-25 Mcg INH (Fluticasone/Vilanterol) 1 Each Blst.w.dev 1 Puff PO DAILY Lasix (Furosemide) 40 Mg Tablet 40 Mg PO BID Ventolin Hfa (Albuterol Sulfate) 18 Gm Hfa.aer.ad 2 Puff INH Q4H PRN Aspirin EC (Aspirin) 81 Mg Tablet. 81 Mg PO DAILY Metoprolol Succinate 25 Mg Tab.er.24h 12.5 Mg PO DAILY TAKES 1/2 (25MG) TABLET Daliresp (Roflumilast) 500 Mcg Tablet 500 Mcg PO DAILY Pantoprazole Sodium 40 Mg Tablet. 40 Mg PO DAILY Eliquis (Apixaban) 5 Mg Tablet 5 Mg PO BID THIS MED IS CURRENTLY ON HOLD Amiodarone HCl 200 Mg Tablet 200 Mg PO DAILY Buspirone HCl 10 Mg Tablet 10 Mg PO BID Sildenafil (Sildenafil Citrate) 20 Mg Tablet 20 Mg PO TID Vitamin D3 (Cholecalciferol (Vitamin D3)) 1,000 Unit Capsule 1,000 Unit PO DAILY Hydrocodone-Acetamin 5-325 mg (Hydrocodone/Acetaminophen) 1 Each Tablet 1 Tab PO TID PRN Centrum Adults Tablet (Multivitamin/Iron/Folic Acid) 1 Each Tablet 1 Tab PO DAILY Vitamin B-12 5,000 Mcg Tab Sl (Cyanocobalamin/Cobamamide) 1 Each Tab.subl 5,000 Mcg SL DAILY Lisinopril 10 Mg Tablet 10 Mg PO DAILY Albuterol Sulfate 2.5 Mg/3 Ml Vial.neb 2.5 Mg NEB Q4H PRN Lyrica (Pregabalin) 150 Mg Capsule 150 Mg PO BID Atorvastatin Calcium 10 Mg Tablet 10 Mg PO DAILY Amlodipine Besylate 5 Mg Tablet 5 Mg PO DAILY Duloxetine HCl 60 Mg Capsule.dr 60 Mg PO BID Assessment/Pt Instructions Take medications as prescribed. Stop taking Lasix. Begin taking Bumex. Hold Eliquis due to recurrent GI bleeding. Follow up with Dr. Tee in about a week for a discussion regarding restarting anticoagulation and a hospital follow up. Follow up with Dr. Forrest in about a week. Follow up with cardiology. Discharge Planning: >30 minutes discharge planning Discharge Instructions Discharge Diet: Low Sodium Diet Activity as Tolerated: Yes Consultations Pulmonology, Cardiology, General Surgery Discharge Physical Examination Vital Signs Vital Signs Date Time Temp Pulse Resp B/P (MAP) Pulse Ox O2 Delivery O2 Flow Rate FiO2 07/21/19 08:00 36.6 62 20 147/63 (91) 92 Nasal Cannula 4.00 07/15/19 04:00 30 General Appearance: No Apparent Distress, WD/WN, Obese Respiratory: Lungs Clear, Normal Breath Sounds, No Respiratory Distress Cardiovascular: Regular Rate, Rhythm, Systolic Murmur Gastrointestinal: Normal Bowel Sounds, Non Tender Extremity: Swelling, Other (venous stasis) Neurologic/Psychiatric: Alert, Oriented x3, No Motor/Sensory Deficits, Normal Mood/Affect Allergies: Coded Allergies: cephalexin (Verified Adverse Reaction, Unknown, unknown- tolerated Rocephin with no issue 06/2019, 06/29/19) Copy Copies To 1: DANITA TEE DO Discharge Summary Date of Admission Jul 14, 2019 at 22:00 Date of Discharge Discharge Date: Jul 21, 2019 Discharge Time: 11:53 Admission Diagnosis Acute on chronic respiratory failure with hypoxia Consults/Procedures Consulations Cardiology, Pulmonology, General Surgery Discharge Diagnosis Acute on chronic hypoxemic respiratory failure (1) Acute on chronic respiratory failure Status: Acute (2) ADDIE (acute kidney injury) Status: Resolved (3) Recurrent gastrointestinal hemorrhage Status: Chronic (4) COPD exacerbation Status: Acute (5) TERE treated with BiPAP Status: Chronic (6) Acute heart failure with preserved ejection fraction Status: Acute (7) Morbid obesity Status: Chronic (8) Paroxysmal atrial fibrillation Status: Chronic (9) HLD (hyperlipidemia) Status: Chronic (10) HTN (hypertension) Status: Chronic (11) CAD (coronary artery disease) Status: Chronic Clinical Quality Measures DVT/VTE Risk/Contraindication: Risk Factor Score Per Nursin RFS Level Per Nursing on Admit: 4+=Very High Contraindications-Pharm: Other *list below* IVAN FONG MD Jul 21, 2019 10:58 POS
[2019-07-21] MEDS ORDERED: ESCI20TA PO (12:29)
[2019-07-21 13:17] VITALS: BP 147/63
[2019-07-22] MEDS ORDERED: BUMETANIDE 1 MG/4 ML (BUMEX) VIAL IV SCH (09:00)
--- NOTE | 2019-07-22 13:39 | Physician Query Clarification ---
PQ-Conflicting Diagnosis Admission/Discharge Admission Date: Jul 14, 2019 at 22:00 Discharge Date: Jul 21, 2019 at 13:17 The medical record reflects the following clinical scenario: History/Risk Factors: Emphysema, CHF, HTN, MOB, PHTN Clinical Findings: loose cough, SOB, Interval increase in right-sided effusion with associated atelectasis and/or infiltrate. Treatment: IV Rocephin, Albuterol Question: Do you agree with the impression of the pneumonia per Dr. Orta. Please document a response in Progress Note or Discharge Summary. 1. Yes 2. No 3. Other, with explanation of clinical findings 4. Clinically undetermined, no explanation for clinical findings. PHYSICIAN RESPONSE Do you agree w/Consulting Dx?: No Please remember a lack of response to the above will prompt a phone page by CDI/Coding staff. In responding to this query, please exercise your independent professional judgment. The purpose of this communication is to more accurately reflect the complexity of your patients condition. The fact that a question is asked does not imply that any particular answer is desired or expected. Thank you for your timely response to this clarification. Requestors name: Moisés THIS PHYSICIAN QUERY FORM IS A PERMANENT PART OF THE MEDICAL RECORD MOISÉS ACEVES Jul 22, 2019 13:39 IVAN URIBE MD Jul 31, 2019 13:54 POS
--- NOTE | 2019-07-22 13:44 | Physician Query Clarification ---
PQ-Intro New Diagnosis Admission/Discharge Admission Date: Jul 14, 2019 at 22:00 Discharge Date: Jul 21, 2019 at 13:17 The medical record reflects the following clinical scenario: History/Risk Factors: HTN, CHF, CKD, MOB, PHTN, Emphysema Clinical Findings: Troponin 0.042, minimal elevated troponin per Dr. Cleveland H&P Treatment: PO Toprol Question: What condition best reflects the above clinical scenario? Please document a response in the Progress Noter or Discharge Summary. 1. Type 2 MD 2. Elevated troponin undetermined etiology 3. Other, with explanation of the clinical findings. 4. Clinically undetermined, no explanation for the clinical findings. PHYSICIAN RESPONSE What condition reflects above: Other, explanation/clinical finding Explanation of clincal finding Elevated troponin due to heart failure and chronic kidney disease Please remember a lack of response to the above will prompt a phone page by CDI/Coding staff. In responding to this query, please exercise your independent professional judgment. The purpose of this communication is to more accurately reflect the complexity of your patients condition. The fact that a question is asked does not imply that any particular answer is desired or expected. Thank you for your timely response to this clarification. Requestors name: Moisés THIS PHYSICIAN QUERY FORM IS A PERMANENT PART OF THE MEDICAL RECORD MOISÉS ACEVES Jul 22, 2019 13:44 IVAN URIBE MD Jul 31, 2019 13:58 POS
--- NOTE | 2019-08-08 03:57 | Pulmonary Procedures ---
Pulmonary Procedures Date of Procedure Date of Service: Jul 17, 2019 (late note) Procedure: US guided complex right thoracentesis Preop DX: pleural effusion post op DX: Same ([1500]cc of yellow fluid obtained) Complications: None After informed consent obtained US was used to localize pleural fluid. Pt has bilateral pleural effusions. Skin was anesthetized at approximately the 10th ICS posterior axillary line. Thoracentesis needle was advanced through the 10th ICS posterior axillary line. Needle was removed and catheter left in place.1500cc of yellow fluid obtained using vacuum bottles. Catheter was then removed. Pt tolerated procedure well. No complications noted. JHON STEPHENSON DO Aug 08, 2019 03:57 POS
[2019-08-17] MEDS ORDERED: HYDR-3812 PO (09:48)
== END 2019-07-21 13:17 | disposition home or self-care (01) | DRG 291 ==
LOC: EDUNIT# 20:37 → ER 20:38 → ICU 22:00 → 4TH 07-15 15:44
PROVIDERS: ADMIT Family Medicine; ATTEND Family Medicine
PROC: 0W993ZZ Drainage of Right Pleural Cavity, Percutaneous Approach (ICD-10-PCS; principal; 2019-07-17)
DX: I13.0 Hypertensive heart and chronic kidney disease with heart failure and stage 1 through stage 4 chronic kidney disease, or unspecified chronic kidney disease (principal); I50.33 Acute on chronic diastolic (congestive) heart failure; J96.21 Acute and chronic respiratory failure with hypoxia; J43.9 Emphysema, unspecified; J90 Pleural effusion, not elsewhere classified; E66.2 Morbid (severe) obesity with alveolar hypoventilation; Z68.42 Body mass index [BMI] 45.0-49.9, adult; E78.5 Hyperlipidemia, unspecified; R79.89 Other specified abnormal findings of blood chemistry; N18.9 Chronic kidney disease, unspecified; N17.9 Acute kidney failure, unspecified; K92.2 Gastrointestinal hemorrhage, unspecified; D64.9 Anemia, unspecified; I27.20 Pulmonary hypertension, unspecified; J30.2 Other seasonal allergic rhinitis; I08.1 Rheumatic disorders of both mitral and tricuspid valves; K21.9 Gastro-esophageal reflux disease without esophagitis; I48.0 Paroxysmal atrial fibrillation; I25.10 Atherosclerotic heart disease of native coronary artery without angina pectoris; M54.6 Pain in thoracic spine; M25.512 Pain in left shoulder; M81.0 Age-related osteoporosis without current pathological fracture; M19.91 Primary osteoarthritis, unspecified site; F41.9 Anxiety disorder, unspecified; F32.9 Major depressive disorder, single episode, unspecified; Z79.01 Long term (current) use of anticoagulants; E11.9 Type 2 diabetes mellitus without complications; R22.2 Localized swelling, mass and lump, trunk; Z87.891 Personal history of nicotine dependence
CPT/HCPCS: 36415; 36600; 71045; 71046; 71275; 76942; 80048; 80053; 82274; 82805; 82945; 82962; 83605; 83615; 83735; 83880; 83986; 84100; 84157; 84484; 85025; 85027; 85610; 85730; 86141; 86850; 86900; 86901; 86920; 87040; 87070; 87081; 87205; 87804; 88112; 88305; 89051; 93005; 93306; 94640; 94660; 94760; 96365

== ENCOUNTER 2019-08-03 13:52 | Inpatient (IN) | payer MEDICARE ==
[2019-08-03] VITALS (9 sets, daily range): BP systolic 96–107; BP diastolic 42–52
[~2019-08-03] VITALS: Ht 183 cm; Wt 150.4 kg
[~2019-08-03 13:52] MED LIST changes: +BUME1TAB8 PO; +ESCI20TA PO; +FLUT1BLS INH; +IPRA3AMP31 IH
[2019-08-03] MEDS ORDERED: SUCCINYLCHOLINE INJ 100 MG/5 ML SYR INJ ONE ×2 (13:54→14:15)
[2019-08-03] MEDS ORDERED: ATROPINE INJECTION 1 MG/10 ML SYR (ABBOTT) INJ ONE (13:54)
[2019-08-03] MEDS ORDERED: ETOMIDATE IV SOLN 20 MG/10 ML VIAL IV ONE ×2 (13:54→14:15)
[2019-08-03 14:07] LABS: ABG BASE EXCESS 11.1 MMOL/L (-2.5-2.5); ABG OXYGEN SATURATION 99 % (94-100); ABG PO2 146 MMHG (79-93); ABG TCO2 42.5 MMOL/L (21.0-31.0)
[2019-08-03 14:09] LABS: ABG PH 7.19 (7.37-7.43)
--- NOTE | 2019-08-03 14:09 | ED Dyspnea ---
General Stated Complaint: SOA Source of Information: EMS Exam Limitations: No Limitations History of Present Illness Date Seen by Provider: Aug 03, 2019 Time Seen by Provider: 14:06 Initial Comments To ER per EMS from home with reports of trouble breathing. History of COPD, has a trilogy BiPAP at home. Recently released from here on the rehabilitation floor and EMS reports that he has subsequently been taken to [facility] in [place] and was released from there this past week as well. They also report some "twitching movements". Timing/Duration: Waxing and Waning Severity: Moderate Prior Episodes/Possible Cause: No Prior Episodes Associated Symptoms: Denies Symptoms Allergies and Home Medications Allergies Coded Allergies: cephalexin (Verified Adverse Reaction, Unknown, unknown- tolerated Rocephin with no issue 06/2019, 06/29/19) Home Medications Albuterol Sulfate 2.5 Mg/3 Ml Vial.neb, 2.5 MG NEB Q4H PRN for SHORTNESS OF BREATH, (Reported) Albuterol Sulfate 18 Gm Hfa.aer.ad, 2 PUFF INH Q4H PRN for SHORTNESS OF BREATH, (Reported) Amiodarone HCl 200 Mg Tablet, 200 MG PO DAILY, (Reported) Amlodipine Besylate 5 Mg Tablet, 5 MG PO DAILY, (Reported) Apixaban 5 Mg Tablet, 5 MG PO BID, (Reported) THIS MED IS CURRENTLY ON HOLD Aspirin 81 Mg Tablet.dr, 81 MG PO DAILY, (Reported) Atorvastatin Calcium 10 Mg Tablet, 10 MG PO DAILY, (Reported) Bumetanide 1 Mg Tablet, 1 MG PO DAILY Prescribed by: IVAN FONG on 07/21/19 1043 Buspirone HCl 10 Mg Tablet, 10 MG PO BID, (Reported) Cholecalciferol (Vitamin D3) 1,000 Unit Capsule, 1,000 UNIT PO DAILY, (Reported) Cyanocobalamin/Cobamamide 1 Each Tab.subl, 5,000 MCG SL DAILY, (Reported) Escitalopram Oxalate 20 Mg Tablet, 20 MG PO DAILY Prescribed by: MAGDA CHAPPELL on 07/21/19 1229 Fluticasone/Vilanterol 1 Each Blst.w.dev, 1 PUFF PO DAILY, (Reported) Hydrocodone/Acetaminophen 1 Each Tablet, 1 TAB PO TID PRN for PAIN-MODERATE, (Reported) Ipratropium/Albuterol Sulfate 3 Ml Ampul.neb, 3 ML IH Q4H PRN for SHORTNESS OF BREATH, (Reported) Lisinopril 10 Mg Tablet, 10 MG PO DAILY, (Reported) Metoprolol Succinate 25 Mg Tab.er.24h, 12.5 MG PO DAILY, (Reported) TAKES 1/2 (25MG) TABLET Multivitamin/Iron/Folic Acid 1 Each Tablet, 1 TAB PO DAILY, (Reported) Pantoprazole Sodium 40 Mg Tablet.dr, 40 MG PO DAILY, (Reported) Pregabalin 150 Mg Capsule, 150 MG PO BID, (Reported) Roflumilast 500 Mcg Tablet, 500 MCG PO DAILY, (Reported) Sildenafil Citrate 20 Mg Tablet, 20 MG PO TID, (Reported) Patient Home Medication List Home Medication List Reviewed: Yes Review of Systems Review of Systems Constitutional: see HPI EENTM: see HPI Respiratory: see HPI, dyspnea on exertion, short of breath Cardiovascular: no symptoms reported Genitourinary: no symptoms reported Musculoskeletal: no symptoms reported Skin: no symptoms reported Psychiatric/Neurological: No Symptoms Reported Endocrine: No Symptoms Reported Hematologic/Lymphatic: No Symptoms Reported Past Dtkdbkm-Wvqiaz-Ovdptp Hx Patient Social History Drug of Choice: THC Type Used: Cigarettes Former Smoker, Quit: Sep 18, 2015 2nd Hand Smoke Exposure: No Recent Foreign Travel: No Contact w/Someone Who Travel: No Recent Hopitalizations: Yes Immunizations Up To Date Tetanus Booster (TDap): Unknown Date of Pneumonia Vaccine: Sep 04, 2012 Date of Influenza Vaccine: Jun 10, 2019 Seasonal Allergies Seasonal Allergies: Yes Past Medical History Surgeries: Yes (FATTY TUMOR REMOVED FROM TOP OF HEAD. CARDIAC CATH X 2--NO INTERVENTION) Cardiac, Vasectomy Respiratory: Yes Pneumonia, Chronic Bronchitis, Sleep Apnea, COPD, Emphysema Currently Using CPAP: Yes (WAS WEARING AT HOME PER EMS) Currently Using BIPAP: Yes Cardiac: Yes Atrial Fibrillation, Chronic Edema/Swelling, Coronary Artery Disease, High Cholesterol, Hypertension, Valvular Heart Disease Neurological: No Reproductive Disorders: No Sexually Transmitted Disease: No HIV/AIDS: No Genitourinary: Yes (RENAL INSUFFICIENCY) Renal Failure Gastrointestinal: Yes Colitis Musculoskeletal: Yes ("BULGING DISCS" ; CHRONIC "JERKING" OF MUSCLES; CHRONIC NARCOTIC USE) Degenerate Disk Disease, Osteoporosis, Arthritis, Back Injury, Chronic Back Pain, Fractures, Spasms Endocrine: Yes (MORBID OBESITY) Diabetes, Non-Insulin dep HEENT: Yes (NEAR SIGHTED) Loss of Vision: Bilateral Hearing Impairment: Denies Cancer: No Psychosocial: Yes Anxiety, Depression Integumentary: No Blood Disorders: No Adverse Reaction/Blood Tranf: No Family Medical History Arthritis 19 MOTHER Cardiovascular disease 19 MOTHER FH: lung cancer 19 FATHER Hypertension 19 MOTHER No Family History of: AIDS Abdominal aortic aneurysm Alfonzo's disease Alcoholism Alzheimer's disease Aphasia Asthma Cancer of mouth Cataracts Colon cancer Completed stroke Congenital disease Congenital heart disease Coronary thrombosis Cystic fibrosis Deafness or hearing loss Dementia Diabetes mellitus Drug abuse Dysphasia Fibrocystic disease of breast Gastroenteritis Glaucoma Headache disorder Hypercholesterolemia Infertility Kidney disease Myocardial infarction Neoplasm Not obtainable due to adoption Osteoporosis Parkinson's disease Prostate cancer Psychosocial problem Respiratory disorder Seizure disorder Severe allergy Thyroid disease Tuberculosis Visual disorder AAA, Heart Disease, Cancer, Hypertension Physical Exam Vital Signs Vital Signs - First Documented 08/03/19 08/03/19 08/03/19 14:10 14:38 15:35 Temp 37.5 Pulse 56 Resp 20 B/P (MAP) 127/55 (79) Pulse Ox 100 O2 Delivery NIV Bilevel FiO2 50 Capillary Refill : Height, Weight, BMI Height: 5'10.00" Weight: 348lbs. 6.0oz. 158.278438jk; 46.00 BMI Method:Stated General Appearance: Chronically ill, Obese, Other (lethargic. When asked to scoot from the EMS cot to our bed he does attempt to do this but is too weak to do so. GCS 11) HEENT: PERRL/EOMI, TMs Normal Neck: Full Range of Motion, Normal Inspection Respiratory: No Accessory Muscle Use, No Respiratory Distress Cardiovascular: Regular Rate, Rhythm, Normal Peripheral Pulses Gastrointestinal: Non Tender, Soft Extremity: Normal Capillary Refill, Normal Inspection Skin: Normal Color, Warm/Dry Focused Exam Lactate Level 08/03/19 14:05: Lactic Acid Level 0.68 Lactic Acid Level Laboratory Tests Test 08/03/19 14:05 Lactic Acid Level 0.68 MMOL/L (0.50-2.00) Procedures/Interventions Date of ETT Placement: Aug 03, 2019 Intubation Method: orotracheal Tube Size: 8 Medications: Etomidate, Succinylcholine, Versed Positive End Tide CO2: Yes Breath Sounds after Intubation: bilateral-equal Intubation Complications: O2 saturation decreased (temporarily but quickly tashia with bagging) Post Intubation Xray: Yes Progress/Results/Core Measures Results/Orders Lab Results Laboratory Tests Test 08/03/19 14:01 08/03/19 14:05 08/03/19 15:05 Range/Units Blood Gas Puncture Site RIGHT RADIAL RIGHT RADIAL Blood Gas Patient Temperature 37.5 36.7 Arterial Blood pH 7.19 *L 7.29 *L 7.37-7.43 Arterial Blood Partial Pressure CO2 108 *H 81 *H 35-45 MMHG Arterial Blood Partial Pressure O2 146 H 79 79-93 MMHG Arterial Blood HCO3 39 H 38 H 23-27 MMOL/L Arterial Blood Total CO2 42.5 H 40.5 H 21.0-31.0 MMOL/L Arterial Blood Oxygen Saturation 99 97 94-100 % Arterial Blood Base Excess 11.1 H 11.2 H -2.5-2.5 MMOL/L Neil Test POSITIVE POSITIVE Blood Gas Ventilator Setting NO NO Blood Gas Inspired Oxygen 50% BIPAP N/A White Blood Count 12.3 H 4.3-11.0 10^3/uL Red Blood Count 3.40 L 4.35-5.85 10^6/uL Hemoglobin 9.7 L 13.3-17.7 G/DL Hematocrit 33 L 40-54 % Mean Corpuscular Volume 98 80-99 FL Mean Corpuscular Hemoglobin 29 25-34 PG Mean Corpuscular Hemoglobin Concent 29 L 32-36 G/DL Red Cell Distribution Width 17.3 H 10.0-14.5 % Platelet Count 183 130-400 10^3/uL Mean Platelet Volume 10.4 7.4-10.4 FL Neutrophils (%) (Auto) 90 H 42-75 % Lymphocytes (%) (Auto) 4 L 12-44 % Monocytes (%) (Auto) 6 0-12 % Eosinophils (%) (Auto) 0 0-10 % Basophils (%) (Auto) 0 0-10 % Neutrophils # (Auto) 11.1 H 1.8-7.8 X 10^3 Lymphocytes # (Auto) 0.5 L 1.0-4.0 X 10^3 Monocytes # (Auto) 0.7 0.0-1.0 X 10^3 Eosinophils # (Auto) 0.0 0.0-0.3 10^3/uL Basophils # (Auto) 0.0 0.0-0.1 10^3/uL Neutrophils % (Manual) 87 % Lymphocytes % (Manual) 7 % Monocytes % (Manual) 4 % Band Neutrophils 2 % Basophilic Stippling SLIGHT Anisocytosis SLIGHT Sodium Level 142 135-145 MMOL/L Potassium Level 5.8 H 3.6-5.0 MMOL/L Chloride Level 99 98-107 MMOL/L Carbon Dioxide Level 35 H 21-32 MMOL/L Anion Gap 8 5-14 MMOL/L Blood Urea Nitrogen 52 H 7-18 MG/DL Creatinine 1.69 H 0.60-1.30 MG/DL Estimat Glomerular Filtration Rate 41 BUN/Creatinine Ratio 31 Glucose Level 159 H 70-105 MG/DL Lactic Acid Level 0.68 0.50-2.00 MMOL/L Calcium Level 9.1 8.5-10.1 MG/DL Corrected Calcium 9.3 8.5-10.1 MG/DL Total Bilirubin 0.2 0.1-1.0 MG/DL Aspartate Amino Transf (AST/SGOT) 15 5-34 U/L Alanine Aminotransferase (ALT/SGPT) 23 0-55 U/L Alkaline Phosphatase 84 40-136 U/L Troponin I 0.042 H <0.028 NG/ML B-Type Natriuretic Peptide 668.7 H <100.0 PG/ML Total Protein 6.7 6.4-8.2 GM/DL Albumin 3.7 3.2-4.5 GM/DL Triglycerides Level 86 <150 MG/DL Procalcitonin 0.43 H <0.10 NG/ML My Orders Orders - MAGNUS VALDEZ APRN Cbc With Automated Diff (08/03/19 14:03) Comprehensive Metabolic Panel (08/03/19 14:03) Chest 1 View, Ap/Pa Only (08/03/19 14:03) Troponin I (08/03/19 14:03) Lactic Acid Analyzer (08/03/19 14:03) Blood Culture (08/03/19 14:03) Ekg Tracing (08/03/19 14:03) Continuous Ekg Monitoring (08/03/19 14:03) Bipap (Bilevel) Set Up (08/03/19 14:03) Etomidate Injection (Amidate Injection) (08/03/19 14:15) Succinylcholine Injection (Succinylcholi (08/03/19 14:15) Propofol Drip (Icu) (Diprivan Drip (Icu) (08/03/19 14:37) Manual Differential (08/03/19 14:05) Arterial Blood Gas (08/03/19 15:10) Atropine Injection (Atropine Injection) (08/03/19 15:30) Ng Tube Insert & Assessment (08/03/19 15:26) Pharmacy Consult/Message (08/03/19 15:26) Atropine Inj 10 Mg Syringe (Atropine In (08/03/19 13:54) Etomidate Injection (Amidate Injection) (08/03/19 13:54) Succinylcholine Injection (Succinylcholi (08/03/19 13:54) Normal Saline (Ns (... W/Ketamine Inject (08/03/19 16:00) Piperacillin Sodium/Tazobactam (Zosyn Vi (08/03/19 16:15) Medications Given in ED Current Medications Medications Dose Ordered Sig/Sebastian Route Start Time Stop Time Status Last Admin Dose Admin Atropine Sulfate 0.5 mg ONCE ONCE IV 08/03/19 15:30 08/03/19 15:31 DC 08/03/19 14:17 0.5 MG Etomidate 20 mg ONCE ONCE IV 08/03/19 14:15 08/03/19 14:16 DC 08/03/19 14:17 20 MG Propofol 100 ml @ ud STK-MED ONCE IV 08/03/19 14:37 08/03/19 14:41 DC 08/03/19 14:38 24.5 MLS/HR Succinylcholine Chloride 100 mg ONCE ONCE INJ 08/03/19 14:15 08/03/19 14:16 DC 08/03/19 14:17 100 MG Vital Signs/I&O 08/03/19 08/03/19 08/03/19 14:10 14:38 15:35 Temp 37.5 Pulse 56 57 45 Resp 20 22 B/P (MAP) 127/55 (79) 119/53 Pulse Ox 100 100 O2 Delivery NIV Bilevel Mechanical Ventilator FiO2 50 Diagnostic Imaging Diagonstic Imaging: Xray Comments NAME: KEMAR JERONIMO [facility] REC#: [id number] PT STATUS: REG ER : 1955 PHYSICIAN: MAGNUS VALDEZ APRN ADMIT DATE: 08/03/19/ER Draft POSDate of Exam:08/03/19 CHEST 1 VIEW, AP/PA ONLY INDICATION: Respiratory distress, intubated. COMPARISON: 07/21/2019. EXAMINATION: Single view of the chest was obtained. FINDINGS: Cardiac enlargement with central vascular congestion. There is increasing opacification in the mid right lung and base, probably pneumonia. Small effusion seen in the right costophrenic angle. There is no pneumothorax. ET tube is in good position. The NG tube is seen below the hemidiaphragm. IMPRESSION: 1. Cardiac enlargement with central vascular congestion and borderline pulmonary edema. 2. Increasing opacity in mid right lung and base, possibly pneumonia. 3. Small effusion right base. 4. Well-positioned support lines. Dictated on workstation # [id number] Dict: 08/03/19 1537 Trans: 08/03/19 1541 [facility] [id number] Interpreted by: CRISPIN SIEGEL Electronically signed by: Departure Communication (Admissions) Time/Spoke to Admitting Phy: 16:[address] Amy Forrest and Dr. Orta. We will admit to ICU. Zosyn plus vancomycin, continue BiPAP. Patient was intubated with a size 8 endotracheal tube. He was premedicated with 0.5 mg of atropine prior to intubation because of bradycardia rate of about 50. His heart rate stayed 60s during intubation never above or below this. Blood pr essure has been a bit soft around 100 systolic varying from 90-110 systolic. Because of the mild bradycardia and the mild hypotension the propofol drip was switched to a ketamine drip which resulted in inadequate sedation, he was then switched to Precedex drip. Impression Primary Impression: Hypercapnic respiratory failure Additional Impression: COPD exacerbation Disposition: ADMITTED INPATIENT Condition: Stable Admissions Decision to Admit Reason: Admit from ER (General) Decision to Admit/Date: Aug 03, 2019 Time/Decision to Admit Time: 16:17 Departure-Patient Inst. Referrals: DANITA TEE DO (PCP/Family) Primary Care Physician MAGNUS VALDEZ APRN Aug 03, 2019 14:08 POS
[2019-08-03 14:10] LABS: ABG PCO2 108 MMHG (35-45); ALLENS TEST POSITIVE; INSPIRED O2 50% BIPAP; PATIENT TEMP 37.5; VENTILATOR NO
[2019-08-03] MEDS ORDERED: PROPOFOL DRIP (ICU) 100 ML IV ONE (14:37)
[2019-08-03 14:59] LABS: BASOPHILS % (AUTO) 0 % (0-10); EOSINOPHILS % (AUTO) 0 % (0-10); HEMATOCRIT 33 % (40-54); HEMOGLOBIN 9.7 G/DL (13.3-17.7); LYMPHOCYTES # (AUTO) 0.5 X 10^3 (1.0-4.0); LYMPHOCYTES % (AUTO) 4 % (12-44); MEAN CORPUSCULAR HEMOGLOBIN 29 PG (25-34); MEAN CORPUSCULAR HGB CONC 29 G/DL (32-36); MEAN CORPUSCULAR VOLUME 98 FL (80-99); MEAN PLATELET VOLUME 10.4 FL (7.4-10.4); MONOCYTES # (AUTO) 0.7 X 10^3 (0.0-1.0); MONOCYTES % (AUTO) 6 % (0-12); NEUTROPHILS # (AUTO) 11.1 X 10^3 (1.8-7.8); NEUTROPHILS % (AUTO) 90 % (42-75); PLATELET COUNT 183 10^3/uL (130-400); RED CELL DISTRIBUTION WIDTH 17.3 % (10.0-14.5); WHITE BLOOD COUNT 12.3 10^3/uL (4.3-11.0)
--- NOTE | 2019-08-03 15:07 | NUR ---
Propofol decreased at this time to 25mcg/kg/min at this time due to BP of 96/40. Eneida Choi notified.
--- NOTE | 2019-08-03 15:17 | NUR ---
Propofol decreased to 20mcg/kg/min at this time.
[2019-08-03 15:18] LABS: ALBUMIN 3.7 GM/DL (3.2-4.5); BILIRUBIN,TOTAL 0.2 MG/DL (0.1-1.0); CALCIUM 9.1 MG/DL (8.5-10.1); CREATININE SERUM 1.69 MG/DL (0.60-1.30); POTASSIUM 5.8 MMOL/L (3.6-5.0); TOTAL PROTEIN 6.7 GM/DL (6.4-8.2)
[2019-08-03 15:19] LABS: ABG BASE EXCESS 11.2 MMOL/L (-2.5-2.5); ABG OXYGEN SATURATION 97 % (94-100); ABG PH 7.29 (7.37-7.43); ABG PO2 79 MMHG (79-93); ABG TCO2 40.5 MMOL/L (21.0-31.0)
[2019-08-03 15:20] LABS: ABG PCO2 81 MMHG (35-45); ALLENS TEST POSITIVE; PATIENT TEMP 36.7; VENTILATOR NO
[2019-08-03 15:30] LABS: ANISOCYTOSIS SLIGHT; BAND NEUTROPHILS 2 %; LYMPHOCYTES % (MANUAL) 7 %; MONOCYTES % (MANUAL) 4 %; NEUTROPHILS % (MANUAL) 87 %
[2019-08-03] MEDS ORDERED: ATROPINE INJ 0.4 MG/ML SDV IV ONE (15:30)
--- NOTE | 2019-08-03 15:41 | Diagnostic Imaging Report ---
INDICATION: Respiratory distress, intubated. COMPARISON: 07/21/2019. EXAMINATION: Single view of the chest was obtained. FINDINGS: Cardiac enlargement with central vascular congestion. There is increasing opacification in the mid right lung and base, probably pneumonia. Small effusion seen in the right costophrenic angle. There is no pneumothorax. ET tube is in good position. The NG tube is seen below the hemidiaphragm. IMPRESSION: 1. Cardiac enlargement with central vascular congestion and borderline pulmonary edema. 2. Increasing opacity in mid right lung and base, possibly pneumonia. 3. Small effusion right base. 4. Well-positioned support lines. Dictated by: Dictated on workstation # [id number]
--- NOTE | 2019-08-03 15:57 | NUR ---
Propofol stopped at time.
[2019-08-03] MEDS ORDERED: NORMAL SALINE IV SCH (16:00)
[2019-08-03] MEDS ORDERED: KETAMINE IV SCH (16:00)
[2019-08-03] MEDS ORDERED: MIDAZOLAM 5 MG/5 ML (VERSED) VIAL ONE (16:09)
[2019-08-03] MEDS ORDERED: PIPERACILLIN SODIUM/TAZOBACTAM 4.5 GM in NS (IVPB) 100 ML IV ONE (16:15)
[2019-08-03] MEDS ORDERED: DEXMEDETOMIDINE INJECTION 200 MCG in NS (IVPB) 50 ML IV SCH (16:15)
[2019-08-03] MEDS: DEXMEDETOMIDINE 1,000 MCG/NS 250 ML IV SCH ×2 (16:46)
[2019-08-03] MEDS ORDERED: LORazepam INJ 2 MG/ML (ATIVAN) VIAL IVP ONE (17:00)
[2019-08-03] MEDS ORDERED: fentaNYL (OMNICELL DRIP KIT ONLY) 250 MCG/5 ML AMP ONE (17:31)
[2019-08-03] MEDS ORDERED: NS (IVPB) 100 ML ONE ×2 (17:31→21:28)
[2019-08-03] MEDS ORDERED: LACTATED RINGERS 1,000 ML IV ONE (17:35)
[2019-08-03] MEDS ORDERED: SOD POLYSTERENE 15 GM/60 ML (KAYEXALATE) UNIT DOSE NG ONE (17:45)
--- NOTE | 2019-08-03 17:46 | History & Physical-Hospitalist ---
History of Present Illness HPI/Chief Complaint Kennedy Lopez is a 63yoM with multiple comorbidities including COPD, TERE on BiPAP, HFpEF, morbid obesity, paroxysmal atrial fibrillation, hypertension, who presented with altered mental status. He was recently admitted with respiratory failure and was discharged to couple weeks ago. Since his discharge he has been admitted and discharged from [facility] in [place]. Initial workup in the ER revealed a that he was suffering from a CO2 narcosis. He was subsequently intubated and his post intubation ABG revealed an improving CO2 level. Chest x- ray revealed a possible right-sided pneumonia and he was started on Zosyn. He was bradycardic on arrival though this appears to be near his baseline. His heart rate has been around 50. He was started on ketamine due to the bradycardia and was also on Precedex. Exam Limitations: clinical condition Date Seen 08/03/19 Time Seen by a Provider: 17:40 Attending Physician Ivan Fong MD PCP Ricky Cleveland DO Referring Physician Date of Admission Aug 03, 2019 at 16:07 Home Medications & Allergies Home Medications Reviewed patient Home Medication Reconciliation performed by pharmacy medication reconciliations civil drafting technician and/or nursing. Patients Allergies have been reviewed. Allergies Allergies Coded Allergies cephalexin (Verified Adverse Reaction, Unknown, unknown- tolerated Rocephin with no issue 06/2019, 06/29/19) Past Gzsrwqh-Qckdiv-Vtmnka Hx Past Med/Social Hx: Reviewed Nursing Past Med/Soc Hx Patient Social History Alcohol Use: Denies Use Recreational Drug Use: No Drug of Choice: THC Former Smoker, Quit: Sep 18, 2015 Type Used: Cigarettes 2nd Hand Smoke Exposure: No Recent Foreign Travel: No Contact w/other who traveled: No Recent Hopitalizations: Yes Recent Infectious Disease Expo: No Immunizations Up To Date Tetanus Booster (TDap): Unknown Date of Pneumonia Vaccine: Sep 04, 2012 Date of Influenza Vaccine: Jun 10, 2019 Seasonal Allergies Seasonal Allergies: Yes Past Medical History Surgeries: Cardiac, Vasectomy Respiratory: COPD, Emphysema, Sleep Apnea Currently Using CPAP: Yes (WAS WEARING AT HOME PER EMS) Currently Using BIPAP: Yes Cardiac: Atrial Fibrillation, Chronic Edema/Swelling, Coronary Artery Disease, High Cholesterol, Hypertension, Valvular Heart Disease Reproductive: No Sexually Transmitted Disease: No HIV/AIDS: No Genitourinary: Renal Failure Gastrointestinal: Colitis Musculoskeletal: Degenerate Disk Disease, Osteoporosis, Arthritis, Back Injury, Chronic Back Pain, Fractures, Spasms Endocrine: Diabetes, Non-Insulin dep Loss of Vision: Bilateral Hearing Impairment: Denies Psychosocial: Anxiety, Depression History of Blood Disorders: No Adverse Reaction to Blood [place]: No Family History Arthritis 19 MOTHER Cardiovascular disease 19 MOTHER FH: lung cancer 19 FATHER Hypertension 19 MOTHER No Family History of: AIDS Abdominal aortic aneurysm [place]'s disease Alcoholism Alzheimer's disease Aphasia Asthma Cancer of mouth Cataracts Colon cancer Completed stroke Congenital disease Congenital heart disease Coronary thrombosis Cystic fibrosis Deafness or hearing loss Dementia Diabetes mellitus Drug abuse Dysphasia Fibrocystic disease of breast Gastroenteritis Glaucoma Headache disorder Hypercholesterolemia Infertility Kidney disease Myocardial infarction Neoplasm Not obtainable due to adoption Osteoporosis Parkinson's disease Prostate cancer Psychosocial problem Respiratory disorder Seizure disorder Severe allergy Thyroid disease Tuberculosis Visual disorder AAA, Heart Disease, Cancer, Hypertension Review of Systems ROS-Unable to Obtain: Intubated and sedated Constitutional: see HPI Physical Exam Physical Exam Vital Signs Vital Signs - First Documented 08/03/19 08/03/19 08/03/19 14:10 14:38 15:35 Temp 37.5 Pulse 56 Resp 20 B/P (MAP) 127/55 (79) Pulse Ox 100 O2 Delivery NIV Bilevel FiO2 50 Capillary Refill : Less Than 3 Seconds Height, Weight, BMI Height: 5'10.00" Weight: 348lbs. 6.0oz. 158.810269ml; 40.00 BMI Method:Stated General Appearance: Mild Distress, Obese, Other (Twitching) HEENT: Other (Endotracheal tube in place, NG tube in place) Neck: Normal Inspection, Supple Respiratory: Lungs Clear, Normal Breath Sounds, No Respiratory Distress, Other (Mechanically ventilated) Cardiovascular: No Murmur, Bradycardia, Other (Regular rhythm) Gastrointestinal: Normal Bowel Sounds, Soft; No Distended; Other (Large abdominal pannus) Extremity: Normal Inspection, Pedal Edema, Swelling Neurologic/Psychiatric: Other (Sedated, twitching) Skin: Normal Color, Warm/Dry Results Results/Procedures Labs Laboratory Tests 08/03/19 14:05 Patient resulted labs reviewed. Imaging: Reviewed Imaging Report Assessment/Plan Admission Diagnosis Acute on chronic respiratory failure with hypoxia and hypercapnia Admission Status: Inpatient Order (span 2 midnights) Reason for Inpatient Admission: Acute respiratory failure requiring intubation Assessment and Plan Acute on chronic respiratory failure with hypoxemia and hypercapnia COPD with acute exacerbation TERE on BiPAP chronically Morbid obesity Chronic heart failure with preserved ejection fraction Healthcare associated pneumonia Acute kidney injury superimposed on chronic kidney disease NSTEMI ABG on arrival showed CO2 greater than 100 Intubated and sedated CO2 improving post intubation Currently on ketamine and Precedex Discontinue ketamine, add fentanyl If worsening bradycardia, discontinue Precedex and switched to propofol Started on LR at 100 mL per hour Creatinine 1.69, up from baseline 1.3 Chest x-ray with right sided infiltrate Add on procalcitonin and BNP Troponin mildly elevated, trend Begin steroids Consult critical care and cardiology DVT Prophylaxis: Lovenox Diagnosis/Problems Diagnosis/Problems (1) Acute on chronic respiratory failure with hypoxia and hypercapnia Status: Acute (2) COPD exacerbation Status: Acute (3) TERE treated with BiPAP Status: Chronic (4) Paroxysmal atrial fibrillation Status: Chronic IVAN FONG MD Aug 03, 2019 17:46 POS
[2019-08-03] MEDS ORDERED: MELATONIN 3 MG TABLET PO PRN (18:00)
[2019-08-03] MEDS ORDERED: ONDANSETRON 4 MG (ZOFRAN) ORAL DISSOLVE TAB PO PRN (18:00)
[2019-08-03] MEDS ORDERED: ONDANSETRON 4 MG/2 ML (SDV) Z0FRAN IV PRN (18:00)
[2019-08-03] MEDS ORDERED: ACETAMINOPHEN 325 MG TABLET PO PRN (18:00)
[2019-08-03] MEDS ORDERED: POLYETHYLENE GLYCOL 17 GM (MIRALAX) PACK PO PRN (18:00)
[2019-08-03] MEDS ORDERED: morphine INJ 4 MG/ML 1 ML (VIAL/SYRINGE) IV PRN (18:00)
[2019-08-03] MEDS: fentaNYL INJECTION 1,250 MCG in NS (IVPB) 250 ML IV SCH (18:07)
[2019-08-03] MEDS ORDERED: RT-ALBUTEROL/IPRATROPIUM 3 ML (DUONEB) VIAL INH PRN (18:15)
[2019-08-03] MEDS ORDERED: VANCOMYCIN 2000 MG/NS 500 ML IVPB IV SCH ×2 (19:00)
[2019-08-03 20:51] LABS: ABG BASE EXCESS 12.2 MMOL/L (-2.5-2.5); ABG OXYGEN SATURATION 99 % (94-100); ABG PCO2 52 MMHG (35-45); ABG PH 7.46 (7.37-7.43); ABG PO2 89 MMHG (79-93); ABG TCO2 38.6 MMOL/L (21.0-31.0)
[2019-08-03] MEDS ORDERED: ATROPINE INJ 0.4 MG/ML SDV ONE (20:58)
[2019-08-03 20:59] LABS: ALLENS TEST YES-POS; INSPIRED O2 50%; PATIENT TEMP 36.2; VENTILATOR YES
[2019-08-03] MEDS: DOCUSATE SODIUM 100 MG (COLACE) CAP PO SCH (21:08)
[2019-08-03] MEDS ORDERED: SOD POLYSTERENE 15 GM/60 ML (KAYEXALATE) UNIT DOSE ONE (21:17)
[2019-08-03] MEDS: ENOXAPARIN 40 MG/0.4 ML (LOVENOX) SYR SQ SCH (21:26)
[2019-08-03] MEDS ORDERED: PIPERACILLIN/TAZO 4.5 GM VIAL (ZOSYN) IV ONE (21:28)
[2019-08-03] MEDS ORDERED: VANCOMYCIN 1000 MG/VIAL ONE (21:28)
[2019-08-03] MEDS ORDERED: NS (IVPB) 250 ML ONE (21:28)
[2019-08-03] MEDS: PIPERACILLIN/TAZOBACTAM (BULK) 4.5 GM in NS (IVPB) 100 ML IV SCH (21:39)
[2019-08-03] MEDS: LACTATED RINGERS 1,000 ML IV SCH (21:42)
[2019-08-03] MEDS: RT-ALBUTEROL/IPRATROPIUM 3 ML (DUONEB) VIAL INH SCH (22:22)
[2019-08-03] MEDS: PROPOFOL DRIP (ICU) 100 ML IV SCH (23:15)
[2019-08-03] MEDS: RT-ADVAIR HFA 115/21 MCG PER PUFF IH SCH (23:48)
[2019-08-04] VITALS (30 sets, daily range): BP systolic 89–178; BP diastolic 34–81
[2019-08-04] MEDS: inSUlin ASPART (NovoLOG) 1 UNIT/0.01 ML (CHARGE PER UNIT) SC SCH ×4 (00:31→19:41)
[2019-08-04] MEDS: RT-ALBUTEROL/IPRATROPIUM 3 ML (DUONEB) VIAL INH SCH ×5 (02:10→23:23)
[2019-08-04] MEDS: PROPOFOL DRIP (ICU) 100 ML IV SCH ×3 (03:39→23:10)
[2019-08-04 03:49] LABS: ABG OXYGEN SATURATION 94 % (94-100); ABG PCO2 52 MMHG (35-45); ABG PH 7.46 (7.37-7.43); ABG PO2 68 MMHG (79-93); ABG TCO2 38.2 MMOL/L (21.0-31.0)
[2019-08-04 04:01] LABS: INSPIRED O2 40%; PATIENT TEMP 36.6; VENTILATOR YES
[2019-08-04] MEDS ORDERED: NS (IVPB) 100 ML ONE (04:45)
[2019-08-04] MEDS ORDERED: PIPERACILLIN/TAZO 4.5 GM VIAL (ZOSYN) IV ONE (04:45)
[2019-08-04] MEDS: LACTATED RINGERS 1,000 ML IV SCH ×2 (05:21→19:42)
[2019-08-04] MEDS: PIPERACILLIN/TAZOBACTAM (BULK) 4.5 GM in NS (IVPB) 100 ML IV SCH ×3 (05:22→23:50)
[2019-08-04 05:40] LABS: BASOPHILS % (AUTO) 0 % (0-10); EOSINOPHILS # (AUTO) 0.1 10^3/uL (0.0-0.3); EOSINOPHILS % (AUTO) 1 % (0-10); HEMATOCRIT 28 % (40-54); HEMOGLOBIN 8.5 G/DL (13.3-17.7); LYMPHOCYTES # (AUTO) 1.4 X 10^3 (1.0-4.0); LYMPHOCYTES % (AUTO) 17 % (12-44); MEAN CORPUSCULAR HEMOGLOBIN 28 PG (25-34); MEAN CORPUSCULAR HGB CONC 30 G/DL (32-36); MEAN CORPUSCULAR VOLUME 94 FL (80-99); MEAN PLATELET VOLUME 10.7 FL (7.4-10.4); MONOCYTES # (AUTO) 0.8 X 10^3 (0.0-1.0); MONOCYTES % (AUTO) 10 % (0-12); NEUTROPHILS # (AUTO) 6.1 X 10^3 (1.8-7.8); NEUTROPHILS % (AUTO) 73 % (42-75); PLATELET COUNT 134 10^3/uL (130-400); RED CELL DISTRIBUTION WIDTH 17.6 % (10.0-14.5); WHITE BLOOD COUNT 8.4 10^3/uL (4.3-11.0)
[2019-08-04 06:01] LABS: CALCIUM 8.7 MG/DL (8.5-10.1); CREATININE SERUM 1.55 MG/DL (0.60-1.30); MAGNESIUM 1.9 MG/DL (1.6-2.4); PHOSPHORUS 2.5 MG/DL (2.3-4.7); POTASSIUM 5.1 MMOL/L (3.6-5.0)
[2019-08-04] MEDS: POTASSIUM CL 10MEQ/50ML IVPB 50 ML IV SCH (06:05)
[2019-08-04] MEDS: MAGNESIUM 1 GM/100 ML IVPB 100 ML IV SCH (06:06)
[2019-08-04] MEDS ORDERED: BUMETANIDE 1 MG/4 ML (BUMEX) VIAL IV ONE (07:00)
--- NOTE | 2019-08-04 07:15 | NUR ---
Central line placed by Dr Forrest, assisted by TEODORA Sandoval and TEODORA Hope. Patient tolerated well.
[2019-08-04] MEDS ORDERED: MIDAZOLAM 5 MG/5 ML (VERSED) VIAL ONE (07:19)
[2019-08-04] MEDS ORDERED: proPOfol 200 MG/20 ML (DIPRIVAN) VIAL IV ONE ×2 (07:20→08:15)
--- NOTE | 2019-08-04 07:24 | NUR ---
Vanco - dosing adjusted to 1500mg every 12 hours. Trough ordered for 08/05 @ 0800.
[2019-08-04] MEDS ORDERED: MIDAZOLAM 5 MG/5 ML (VERSED) VIAL IVP ONE (07:30)
[2019-08-04] MEDS: proPOfol 500 MG/50 ML (DIPRIVAN) VIAL IV ONE ×2 (07:32→10:09)
--- NOTE | 2019-08-04 07:32 | Diagnostic Imaging Report ---
Indication: Dyspnea. Comparison: 08/03/2019. Discussion: Single portable upright view of the chest was obtained. Stable support lines. Cardiomegaly is again noted. Mild heart failure with pulmonary edema is stable. Again there is an opacity within the right lung base which is nonspecific and could represent focal edema, pneumonia or atelectasis. Small right effusion is stable. No pneumothorax or osseous abnormality. Impression: 1. Stable chest. Dictated by: Dictated on workstation # [id number]
--- NOTE | 2019-08-04 07:40 | Pulmonary Consultation ---
History of Present Illness History of Present Illness Date Seen by Provider: Aug 04, 2019 Time Seen by Provider: 04:03 Date of Admission History of Present Illness 63yo with hx of multiple hospitalizations, severe COPD, morbid obesity, TERE, AFib presented to ED secondary to lethargy and worsening respiratory failure. He was just discharged for hospital 2 wks prior. Since discharge he was admitted and discharged from [facility] in [place]. While in the ED he was having worsening respiratory failure and was intubated. He's found to have a right sided pneumonia and he was started on Zosyn. I am consulted for pulmonary ICU management. Allergies and Home Medications Allergies Coded Allergies: cephalexin (Verified Adverse Reaction, Unknown, unknown- tolerated Rocephin with no issue 06/2019, 06/29/19) Home Medications Albuterol Sulfate 2.5 Mg/3 Ml Vial.neb, 2.5 MG NEB Q4H PRN for SHORTNESS OF BREATH, (Reported) Albuterol Sulfate 18 Gm Hfa.aer.ad, 2 PUFF INH Q4H PRN for SHORTNESS OF BREATH, (Reported) Amiodarone HCl 200 Mg Tablet, 200 MG PO DAILY, (Reported) Amlodipine Besylate 5 Mg Tablet, 5 MG PO DAILY, (Reported) Apixaban 5 Mg Tablet, 5 MG PO BID, (Reported) Aspirin 81 Mg Tablet.dr, 81 MG PO DAILY, (Reported) Atorvastatin Calcium 10 Mg Tablet, 10 MG PO DAILY, (Reported) Buspirone HCl 10 Mg Tablet, 10 MG PO BID, (Reported) Cholecalciferol (Vitamin D3) 1,000 Unit Capsule, 1,000 UNIT PO DAILY, (Reported) Cyanocobalamin/Cobamamide 1 Each Tab.subl, 5,000 MCG SL DAILY, (Reported) Escitalopram Oxalate 20 Mg Tablet, 20 MG PO DAILY Prescribed by: MAGDA CHAPPELL on 07/21/19 1229 Escitalopram Oxalate 20 Mg Tablet, 20 MG PO DAILY, (Reported) Fluticasone/Vilanterol 1 Each Blst.w.dev, 1 PUFF INH 0600, (Reported) Furosemide 40 Mg Tablet, 60 MG PO BID, (Reported) TAKES 1 & 1/2 (40MG) TABLET Hydrocodone/Acetaminophen 1 Each Tablet, 1 TAB PO TID PRN for PAIN-MODERATE, (Reported) Ipratropium/Albuterol Sulfate 3 Ml Ampul.neb, 3 ML IH Q4H PRN for SHORTNESS OF BREATH, (Reported) Linezolid 600 Mg Tablet, 600 MG PO BID, (Reported) 7 DAY SUPPLY FILLED 07-30-19 Lisinopril 10 Mg Tablet, 10 MG PO DAILY, (Reported) Metoprolol Succinate 25 Mg Tab.er.24h, 12.5 MG PO DAILY, (Reported) TAKES 1/2 (25MG) TABLET Multivitamin/Iron/Folic Acid 1 Each Tablet, 1 TAB PO DAILY, (Reported) Pantoprazole Sodium 40 Mg Tablet.dr, 40 MG PO DAILY, (Reported) Potassium Chloride 10 Meq Tablet.er, 10 MEQ PO DAILY, (Reported) Prednisone 10 Mg Tab, PO UD, (Reported) TAKE 4 TABLETS ONCE A DAY FOR 3 DAYS THEN TAKE 2 TABLETS ONCE A DAY FOR 3 DAYS THEN TAKE 1 TABLET ONCE A DAY FOR 3 DAYS #21 TABLETS FILLED 07-30-19 Pregabalin 150 Mg Capsule, 150 MG PO BID, (Reported) LAST FILLED 06-14-19 #60 Roflumilast 500 Mcg Tablet, 500 MCG PO DAILY, (Reported) Sildenafil Citrate 20 Mg Tablet, 20 MG PO TID, (Reported) Past Edchdsd-Rugoin-Ndoarv Hx Past Med/Social Hx: Reviewed Nursing Past Med/Soc Hx Patient Social History Alcohol Use: Denies Use Recreational Drug Use: No Drug of Choice: THC Type Used: Cigarettes Former Smoker, Quit: Sep 18, 2015 2nd Hand Smoke Exposure: No Recent Foreign Travel: No Contact w/Someone Who Travel: No Recent Infectious Disease Expo: No Recent Hopitalizations: Yes Physical Abuse: No Sexual Abuse: No Mistreated: No Fear: No Immunizations Up To Date Tetanus Booster (TDap): Unknown Date of Pneumonia Vaccine: Sep 04, 2012 Date of Influenza Vaccine: Jun 10, 2019 Seasonal Allergies Seasonal Allergies: Yes Past Medical History Surgeries: Yes (FATTY TUMOR REMOVED FROM TOP OF HEAD. CARDIAC CATH X 2--NO INTERVENTION) Cardiac, Vasectomy Respiratory: Yes Pneumonia, Chronic Bronchitis, Sleep Apnea, COPD, Emphysema Currently Using CPAP: Yes (WAS WEARING AT HOME PER EMS) Currently Using BIPAP: Yes Cardiac: Yes Atrial Fibrillation, Chronic Edema/Swelling, Coronary Artery Disease, High Cholesterol, Hypertension, Valvular Heart Disease Neurological: No Reproductive Disorders: No Sexually Transmitted Disease: No HIV/AIDS: No Genitourinary: Yes (RENAL INSUFFICIENCY) Renal Failure Gastrointestinal: Yes Colitis Musculoskeletal: Yes ("BULGING DISCS" ; CHRONIC "JERKING" OF MUSCLES; CHRONIC NARCOTIC USE) Degenerate Disk Disease, Osteoporosis, Arthritis, Back Injury, Chronic Back Pain, Fractures, Spasms Endocrine: Yes (MORBID OBESITY) Diabetes, Non-Insulin dep HEENT: Yes (NEAR SIGHTED) Loss of Vision: Bilateral Hearing Impairment: Denies Cancer: No Psychosocial: Yes Anxiety, Depression Integumentary: No Blood Disorders: No Adverse Reaction/Blood Tranf: No Family Medical History Arthritis 19 MOTHER Cardiovascular disease 19 MOTHER FH: lung cancer 19 FATHER Hypertension 19 MOTHER No Family History of: AIDS Abdominal aortic aneurysm Alfonzo's disease Alcoholism Alzheimer's disease Aphasia Asthma Cancer of mouth Cataracts Colon cancer Completed stroke Congenital disease Congenital heart disease Coronary thrombosis Cystic fibrosis Deafness or hearing loss Dementia Diabetes mellitus Drug abuse Dysphasia Fibrocystic disease of breast Gastroenteritis Glaucoma Headache disorder Hypercholesterolemia Infertility Kidney disease Myocardial infarction Neoplasm Not obtainable due to adoption Osteoporosis Parkinson's disease Prostate cancer Psychosocial problem Respiratory disorder Seizure disorder Severe allergy Thyroid disease Tuberculosis Visual disorder AAA, Heart Disease, Cancer, Hypertension Review of Systems Time Seen by Provider: 04:16 Sepsis Event Evaluation Height, Weight, BMI Height: 5'10.00" Weight: 348lbs. 6.0oz. 158.068731cx; 40.00 BMI Method:Stated Exam Exam Vital Signs Date Time Temp Pulse Resp B/P (MAP) Pulse Ox O2 Delivery O2 Flow Rate FiO2 08/04/19 07:00 46 08/04/19 06:00 46 22 105/42 (63) 92 Mechanical Ventilator 40.00 08/04/19 05:00 48 21 111/48 (69) 94 Mechanical Ventilator 40.00 08/04/19 04:00 100 Mechanical Ventilator 45 08/04/19 04:00 47 21 113/45 (67) 93 Mechanical Ventilator 40.00 08/04/19 03:39 48 08/04/19 03:00 50 22 120/47 (71) 93 Mechanical Ventilator 40.00 08/04/19 02:18 Mechanical Ventilator 40.00 08/04/19 02:10 51 22 100 40 08/04/19 02:00 49 21 125/58 (80) 99 Mechanical Ventilator 50.00 08/04/19 01:12 48 08/04/19 01:00 48 21 118/49 (72) 99 Mechanical Ventilator 50.00 08/04/19 00:06 47 21 115/48 (70) 98 Mechanical Ventilator 50.00 08/04/19 00:00 100 Mechanical Ventilator 45 08/03/19 23:15 48 107/48 08/03/19 23:00 46 21 107/46 (66) 99 Mechanical Ventilator 50.00 08/03/19 22:22 44 22 100 45 08/03/19 22:00 43 21 101/44 (63) 100 Mechanical Ventilator 50.00 08/03/19 21:00 42 21 101/42 (61) 100 Mechanical Ventilator 50.00 08/03/19 20:00 36.2 08/03/19 20:00 45 27 105/45 (65) 100 Mechanical Ventilator 50.00 08/03/19 20:00 100 Mechanical Ventilator 50 08/03/19 19:02 51 08/03/19 19:00 46 21 104/45 (64) 100 Mechanical Ventilator 50.00 08/03/19 17:57 37.5 45 100 08/03/19 17:45 37.5 45 100 08/03/19 17:10 48 13 112/58 100 08/03/19 15:35 45 22 100 50 08/03/19 14:38 57 119/53 100 Mechanical Ventilator 08/03/19 14:10 37.5 56 20 127/55 (79) NIV Bilevel I & O 08/04/19 07:00 Output Total 960 ml Balance -960 ml Height & Weight Height: 5'10.00" Weight: 348lbs. 6.0oz. 158.010774ol; 40.00 BMI Method:Stated General Appearance: Chronically ill, Obese, Other (lethargic. When asked to scoot from the EMS cot to our bed he does attempt to do this but is too weak to do so. GCS 11) HEENT: PERRL/EOMI, TMs Normal Neck: Full Range of Motion, Normal Inspection Respiratory: No Accessory Muscle Use, No Respiratory Distress Cardiovascular: Regular Rate, Rhythm, Normal Peripheral Pulses Capillary Refill: Less Than 3 Seconds Extremity: Normal Capillary Refill, Normal Inspection Neurologic/Psychiatric: Other (Sedated, twitching) Skin: Normal Color, Warm/Dry Results Lab Laboratory Tests 08/03/19 14:05 08/04/19 04:10 Assessment/Plan Assessment/Plan Acute on chronic respiratory failure -Continue ventilator care -ABG C02 >100 Hx of hemoptysis s/p Bronchoscopy on 07/03/19 - no signs of active bleed -Will plan on repeating bronchoscopy while intubated COPDAE with hx of severe COPD oxygen dependent -SVNS -Solumedrol Group III pulmonary HTN Morbid obesity with OHS and TERE - Diastolic heart disfunction Acute on chronic renal failure NSTEMI PAfib/SSS -Cardiology following Marijuanna use Recent GIB requiring transfusions s/p recent scopes -OAC with Eliquis - holding due to recurrent GI bleeds Mild to moderate CAD on coronary angiography in 2010 JHON STEPHENSON DO Aug 04, 2019 07:40 POS
--- NOTE | 2019-08-04 07:41 | Pulmonary Procedures ---
Pulmonary Procedures Date of Procedure Date of Service: Aug 04, 2019 Lumen: triple (US guided) Central Line Procedure: betadine prep, sterile dressing applied Position: internal jugular (R) Anesthesia: Lidocaine Volume Anesthetic (ccs): 5 Complications: none Post Position: sutured, good blood return, position confirmed w/ CXR JHON STEPHENSON DO Aug 04, 2019 07:41 POS
--- NOTE | 2019-08-04 08:07 | Diagnostic Imaging Report ---
Indication: Dyspnea, central line placement. Comparison: Earlier the same date. Discussion: Single portable supine view of the chest was obtained. Cardiomegaly is stable. New right IJ central venous catheter with tip in the SVC. No pneumothorax identified. Endotracheal tube and enteric tube are stable. Central venous congestion is increased. Nonspecific infiltrates are stable, likely pulmonary edema. Right pleural effusion is stable. Impression: 1. New right IJ line with tip in the SVC. No pneumothorax. 2. Cardiomegaly with likely worsening pulmonary edema. Right effusion is stable. Dictated by: Dictated on workstation # [id number]
[2019-08-04] MEDS: DOCUSATE SODIUM 100 MG (COLACE) CAP PO SCH ×2 (09:00→21:21)
--- NOTE | 2019-08-04 09:20 | Progress Note - Hospitalist ---
Subjective HPI/CC On Admission Date Seen by Provider: Aug 04, 2019 Time Seen by Provider: 09:11 Kennedy Lopez is a 63yoM with multiple comorbidities including COPD, TERE on BiPAP, HFpEF, morbid obesity, paroxysmal atrial fibrillation, hypertension, who presented with altered mental status. He was recently admitted with respiratory failure and was discharged to couple weeks ago. Since his discharge he has been admitted and discharged from [facility] in [place]. Initial workup in the ER revealed a that he was suffering from a CO2 narcosis. He was subsequently intubated and his post intubation ABG revealed an improving CO2 level. Chest x- ray revealed a possible right-sided pneumonia and he was started on Zosyn. He was bradycardic on arrival though this appears to be near his baseline. His heart rate has been around 50. He was started on ketamine due to the bradycardia and was also on Precedex. Subjective/Events-last exam Pt remains on vent. Alert and able to answer some yes or no questions. Denies any concerns. Shakes head when told plan and denies any questions. Focused Exam Lactate Level 08/03/19 14:05: Lactic Acid Level 0.68 Objective Exam Vital Signs Vital Signs Date Time Temp Pulse Resp B/P (MAP) Pulse Ox O2 Delivery O2 Flow Rate FiO2 08/04/19 09:00 73 38 178/81 (113) 91 Mechanical Ventilator 40.00 08/04/19 04:00 45 08/03/19 20:00 36.2 Capillary Refill : Less Than 3 Seconds General Appearance: Chronically ill, Other (on vent, easily awakens) Respiratory: No Accessory Muscle Use, Wheezing (scant), Other (on vent) Cardiovascular: Regular Rate, Rhythm, No Murmur Gastrointestinal: Normal Bowel Sounds, Non Tender, Soft Extremity: Pedal Edema (bilateral) Neurologic/Psychiatric: Alert (slightily drowsy but arousable) Results/Procedures Lab Laboratory Tests 08/03/19 14:05 08/04/19 04:10 Patient resulted labs reviewed. Imaging: Reviewed Imaging Report Assessment/Plan Assessment and Plan Assess & Plan/Chief Complaint Acute on chronic respiratory failure with hypoxemia and hypercapnia COPD with acute exacerbation TERE on BiPAP chronically Morbid obesity Healthcare associated pneumonia Maintain on vent, plan for Bronch tomorrow Chest x-ray with right sided infiltrate Continue steroids, Advair Discussed with Pulm this AM, appreciate recs - Continue Vanc/Zosyn Chronic heart failure with preserved ejection fraction NSTEMI PAF - troponin elevated on arrival and stable - like due to CKD - Cardiology consulted, appreciate recs - BNP trended down - Eliquis held due to history of GI bleeds Acute kidney injury superimposed on chronic kidney disease Hyperkalemia, mild Creatinine 1.55, trend - Bumex given Anemia of chronic disease - appears to have baseline around 9 - trend DVT Prophylaxis: Lovenox Clinical Quality Measures DVT/VTE Risk/Contraindication: Risk Factor Score Per Nursin RFS Level Per Nursing on Admit: 4+=Very High VERNON DIAMOND MD Aug 04, 2019 09:20 POS
[2019-08-04] MEDS: fentaNYL INJECTION 1,250 MCG in NS (IVPB) 250 ML IV SCH (09:30)
--- NOTE | 2019-08-04 09:30 | NUR ---
restless and agitated, patient nods yes that he is having discomfort. Propofol increased to 50, fentanyl increased to 75. tolerated well.
[2019-08-04] MEDS: VANCOMYCIN 1500 MG/NS 500 ML IVPB IV SCH ×4 (10:15→21:28)
[2019-08-04] MEDS: ENOXAPARIN 40 MG/0.4 ML (LOVENOX) SYR SQ SCH ×2 (10:15→21:28)
[2019-08-04] MEDS: PANTOPRAZOLE 40 MG (PROTONIX) VIAL IV SCH (10:16)
--- NOTE | 2019-08-04 10:30 | NUR ---
Propofol decreased to 25, fentanyl decreased to 50 for blood pressure.
[2019-08-04] MEDS ORDERED: BUMETANIDE 1 MG/4 ML (BUMEX) VIAL ONE (10:51)
--- NOTE | 2019-08-04 11:00 | NUR ---
Presidex decreased to 0.2 mcg for blood pressure.
[2019-08-04] MEDS: RT-ADVAIR HFA 115/21 MCG PER PUFF IH SCH ×2 (11:02→19:30)
--- NOTE | 2019-08-04 11:34 | Consultation-Cardiology ---
HPI-Cardiology Cardiology Consultation: Date of Consultation 08/04/19 Time Seen by a Provider: 11:00 Date of Admission Attending Physician Ivan Fong MD Admitting Physician Ricky Cleveland DO Consulting Physician PATSY SERVIN MD, MA, FACP, FACC, FSCAI, CCDS HPI: Chief Complaint: Reason for consultation: Ac resp failure HPI 63 yo man who presented in extremis to the ER on 08/03/19, found to be in hypercapnic resp failure, intubated and place on mech vent. Still on mech vent and sedated. Unable to provide any history. Has had several recent hospitalizations. History is gathered from those and from the ER physician who took care of him yesterday at time of presentation. He was not reporting cp or palp or syncope at time of presentation yesterday Review of Systems-Cardiology Review of Systems Constitutional: other (ROS cannot be obtained at this time because pt on mech vent and sedated) PHO-Kvachd-Fhdmqv Hx Patient Social History Alcohol Use: Denies Use Recreational Drug Use: No Drug of Choice: THC Type Used: Cigarettes 2nd Hand Smoke Exposure: No Recent Foreign Travel: No Recent Infectious Disease Expo: No Hospitalization with Isolation: Denies Immunizations Up To Date Tetanus Booster (TDap): Unknown Date of Pneumonia Vaccine: Sep 04, 2012 Date of Influenza Vaccine: Jun 10, 2019 Past Medical History PMH As described under Assessment. Family Medical History Family Medical History: He has not reported a family history of early coraonary arery disease or sudden cardiac or stroke. Family History: Arthritis 19 MOTHER Cardiovascular disease 19 MOTHER FH: lung cancer 19 FATHER Hypertension 19 MOTHER No Family History of: AIDS Abdominal aortic aneurysm Burke's disease Alcoholism Alzheimer's disease Aphasia Asthma Cancer of mouth Cataracts Colon cancer Completed stroke Congenital disease Congenital heart disease Coronary thrombosis Cystic fibrosis Deafness or hearing loss Dementia Diabetes mellitus Drug abuse Dysphasia Fibrocystic disease of breast Gastroenteritis Glaucoma Headache disorder Hypercholesterolemia Infertility Kidney disease Myocardial infarction Neoplasm Not obtainable due to adoption Osteoporosis Parkinson's disease Prostate cancer Psychosocial problem Respiratory disorder Seizure disorder Severe allergy Thyroid disease Tuberculosis Visual disorder Allergies and Home Medications Allergies Coded Allergies: cephalexin (Verified Adverse Reaction, Unknown, unknown- tolerated Rocephin with no issue 06/2019, 06/29/19) Home Medications Albuterol Sulfate 2.5 Mg/3 Ml Vial.neb, 2.5 MG NEB Q4H PRN for SHORTNESS OF BREATH, (Reported) Albuterol Sulfate 18 Gm Hfa.aer.ad, 2 PUFF INH Q4H PRN for SHORTNESS OF BREATH, (Reported) Amiodarone HCl 200 Mg Tablet, 200 MG PO DAILY, (Reported) Amlodipine Besylate 5 Mg Tablet, 5 MG PO DAILY, (Reported) Apixaban 5 Mg Tablet, 5 MG PO BID, (Reported) THIS MED IS CURRENTLY ON HOLD Aspirin 81 Mg Tablet.dr, 81 MG PO DAILY, (Reported) Atorvastatin Calcium 10 Mg Tablet, 10 MG PO DAILY, (Reported) Bumetanide 1 Mg Tablet, 1 MG PO DAILY Prescribed by: IVAN FONG on 07/21/19 1043 Buspirone HCl 10 Mg Tablet, 10 MG PO BID, (Reported) Cholecalciferol (Vitamin D3) 1,000 Unit Capsule, 1,000 UNIT PO DAILY, (Reported) Cyanocobalamin/Cobamamide 1 Each Tab.subl, 5,000 MCG SL DAILY, (Reported) Escitalopram Oxalate 20 Mg Tablet, 20 MG PO DAILY Prescribed by: MAGDA CHAPPELL on 07/21/19 1229 Fluticasone/Vilanterol 1 Each Blst.w.dev, 1 PUFF PO DAILY, (Reported) Hydrocodone/Acetaminophen 1 Each Tablet, 1 TAB PO TID PRN for PAIN-MODERATE, (Reported) Ipratropium/Albuterol Sulfate 3 Ml Ampul.neb, 3 ML IH Q4H PRN for SHORTNESS OF BREATH, (Reported) Lisinopril 10 Mg Tablet, 10 MG PO DAILY, (Reported) Metoprolol Succinate 25 Mg Tab.er.24h, 12.5 MG PO DAILY, (Reported) TAKES 1/2 (25MG) TABLET Multivitamin/Iron/Folic Acid 1 Each Tablet, 1 TAB PO DAILY, (Reported) Pantoprazole Sodium 40 Mg Tablet.dr, 40 MG PO DAILY, (Reported) Pregabalin 150 Mg Capsule, 150 MG PO BID, (Reported) Roflumilast 500 Mcg Tablet, 500 MCG PO DAILY, (Reported) Sildenafil Citrate 20 Mg Tablet, 20 MG PO TID, (Reported) Patient Home Medication List Home Medication List Reviewed: Yes Physical Exam-Cardiology Physical Exam Vital Signs/I&O 08/04/19 08/04/19 08/04/19 08/04/19 00:00 00:06 01:00 01:12 Pulse 47 48 48 Resp 21 21 B/P (MAP) 115/48 (70) 118/49 (72) Pulse Ox 100 98 99 O2 Delivery Mechanical Ventilator Mechanical Ventilator Mechanical Ventilator O2 Flow Rate 50.00 50.00 FiO2 45 08/04/19 08/04/19 08/04/19 08/04/19 02:00 02:10 02:18 03:00 Pulse 49 51 50 Resp 21 22 22 B/P (MAP) 125/58 (80) 120/47 (71) Pulse Ox 99 100 93 O2 Delivery Mechanical Ventilator Mechanical Ventilator Mechanical Ventilator O2 Flow Rate 50.00 40.00 40.00 FiO2 40 08/04/19 08/04/19 08/04/19 08/04/19 03:39 04:00 04:00 05:00 Pulse 48 47 48 Resp 21 21 B/P (MAP) 113/45 (67) 111/48 (69) Pulse Ox 93 100 94 O2 Delivery Mechanical Ventilator Mechanical Ventilator Mechanical Ventilator O2 Flow Rate 40.00 40.00 FiO2 45 08/04/19 08/04/19 08/04/19 08/04/19 06:00 07:00 07:00 08:00 Pulse 46 46 45 46 Resp 22 14 20 B/P (MAP) 105/42 (63) 103/43 (63) 114/51 (72) Pulse Ox 92 93 97 O2 Delivery Mechanical Ventilator Mechanical Ventilator Mechanical Ventilator O2 Flow Rate 40.00 40.00 40.00 08/04/19 08/04/19 08/04/19 08/04/19 09:00 10:00 11:00 11:05 Pulse 73 61 41 41 Resp 38 24 22 22 B/P (MAP) 178/81 (113) 126/55 (78) 90/35 (53) Pulse Ox 91 93 95 95 O2 Delivery Mechanical Ventilator Mechanical Ventilator Mechanical Ventilator O2 Flow Rate 40.00 40.00 40.00 FiO2 40 08/04/19 00:00 Output Total 450 ml Balance -450 ml Capillary Refill : Less Than 3 Seconds Constitutional: other (on mech vent) HEENT: PERRL; No xanthelasmas are seen Neck: carotid pulses are 2 + bilaterally Respiratory: No accessory muscle use; other (fair to good air entry bilat, somewhat prolonged exp) Cardiovascular: regular rate-rhythm, systolic murmur (soft LAWRENCE at card base) Gastrointestinal: No tender, No guarding; audible bowel sounds Extremities: other (mild pitting and non-pitting edema); No clubbing, No cyanosis Neurologic/Psychiatric: other (he cannot cooperate with a neuro exam at this time) Skin: No rash on exposed areas, No ulcerations on exposed areas Data Review Labs Laboratory Tests 08/03/19 14:01: Blood Gas Puncture Site RIGHT RADIAL, Blood Gas Patient Temperature 37.5, Arterial Blood pH 7.19*L, Arterial Blood Partial Pressure CO2 108*H, Arterial Blood Partial Pressure O2 146H, Arterial Blood HCO3 39H, Arterial Blood Total CO2 42.5H, Arterial Blood Oxygen Saturation 99, Arterial Blood Base Excess 11.1H , Neil Test POSITIVE, Blood Gas Ventilator Setting NO, Blood Gas Inspired Oxygen 50% BIPAP 08/03/19 14:05: White Blood Count 12.3H, Red Blood Count 3.40L, Hemoglobin 9.7L, Hematocrit 33L, Mean Corpuscular Volume 98, Mean Corpuscular Hemoglobin 29, Mean Corpuscular Hemoglobin Concent 29L, Red Cell Distribution Width 17.3H, Platelet Count 183, Mean Platelet Volume 10.4, Neutrophils (%) (Auto) 90H, Lymphocytes (%) (Auto) 4L , Monocytes (%) (Auto) 6, Eosinophils (%) (Auto) 0, Basophils (%) (Auto) 0, Neutrophils # (Auto) 11.1H, Lymphocytes # (Auto) 0.5L, Monocytes # (Auto) 0.7, Eosinophils # (Auto) 0.0, Basophils # (Auto) 0.0, Neutrophils % (Manual) 87, Lymphocytes % (Manual) 7, Monocytes % (Manual) 4, Band Neutrophils 2, Basophilic Stippling SLIGHT, Anisocytosis SLIGHT, Sodium Level 142, Potassium Level 5.8H, Chloride Level 99, Carbon Dioxide Level 35H, Anion Gap 8, Blood Urea Nitrogen 52H, Creatinine 1.69H, Estimat Glomerular Filtration Rate 41, BUN/Creatinine Ratio 31, Glucose Level 159H, Lactic Acid Level 0.68, Calcium Level 9.1, Corrected Calcium 9.3, Total Bilirubin 0.2, Aspartate Amino Transf (AST/SGOT) 15, Alanine Aminotransferase (ALT/SGPT) 23, Alkaline Phosphatase 84, Troponin I 0.042H, B-Type Natriuretic Peptide 668.7H, Total Protein 6.7, Albumin 3.7, Triglycerides Level 86, Procalcitonin 0.43H 08/03/19 15:05: Blood Gas Puncture Site RIGHT RADIAL, Blood Gas Patient Temperature 36.7, Arterial Blood pH 7.29*L, Arterial Blood Partial Pressure CO2 81*H, Arterial Blood Partial Pressure O2 79, Arterial Blood HCO3 38H, Arterial Blood Total CO2 40.5H, Arterial Blood Oxygen Saturation 97, Arterial Blood Base Excess 11.2H, Neil Test POSITIVE, Blood Gas Ventilator Setting NO, Blood Gas Inspired Oxygen N/A 08/03/19 20:40: Blood Gas Puncture Site RIGHT RADIAL, Blood Gas Patient Temperature 36.2, Arterial Blood pH 7.46H, Arterial Blood Partial Pressure CO2 52H, Arterial Blood Partial Pressure O2 89, Arterial Blood HCO3 37H, Arterial Blood Total CO2 38.6H, Arterial Blood Oxygen Saturation 99, Arterial Blood Base Excess 12.2H, Neil Test YES-POS, Blood Gas Ventilator Setting YES, Blood Gas Inspired Oxygen 50% 08/03/19 22:36: Troponin I 0.038H 08/04/19 00:18: Glucometer 71 08/04/19 03:40: Blood Gas Puncture Site NOT INDICATED, Blood Gas Patient Temperature 36.6, Arterial Blood pH 7.46H, Arterial Blood Partial Pressure CO2 52H, Arterial Blood Partial Pressure O2 68L, Arterial Blood HCO3 37H, Arterial Blood Total CO2 38.2H , Arterial Blood Oxygen Saturation 94, Arterial Blood Base Excess 12.0H, Neil Test NA, Blood Gas Ventilator Setting YES, Blood Gas Inspired Oxygen 40% 08/04/19 04:10: Troponin I 0.041H, White Blood Count 8.4, Red Blood Count 3.00L, Hemoglobin 8.5L , Hematocrit 28L, Mean Corpuscular Volume 94, Mean Corpuscular Hemoglobin 28, Mean Corpuscular Hemoglobin Concent 30L, Red Cell Distribution Width 17.6H, Platelet Count 134, Mean Platelet Volume 10.7H, Neutrophils (%) (Auto) 73, Lymphocytes (%) (Auto) 17, Monocytes (%) (Auto) 10, Eosinophils (%) (Auto) 1, Basophils (%) (Auto) 0, Neutrophils # (Auto) 6.1, Lymphocytes # (Auto) 1.4, Monocytes # (Auto) 0.8, Eosinophils # (Auto) 0.1, Basophils # (Auto) 0.0, Sodium Level 142, Potassium Level 5.1H, Chloride Level 101, Carbon Dioxide Level 30, Anion Gap 11, Blood Urea Nitrogen 53H, Creatinine 1.55H, Estimat Glomerular Filtration Rate 45, BUN/Creatinine Ratio 34, Glucose Level 83, Calcium Level 8.7, Phosphorus Level 2.5, Magnesium Level 1.9, B-Type Natriuretic Peptide 352.8H Laboratory Tests 08/03/19 14:05 08/04/19 04:10 A/P-Cardiology Assessment/Admission Diagnosis Acute, Type II Resp failure Recurrent GI bleeds leading to anemia requiring transfusions - scope per Dr. Gaytan on 06/28/19: Colon Polyps Internal hemorrhoids; Gastritis ; Hiatal jadyn ia. Endoscopy of Jul 11, 2019 at [facility] showed sigmoid and ascending colon ulcer, nonbleeding (per D/C summary by Dr. Stack) Multifactorial shortness of breath: ac exac of COPD, severe anemia, obesity- hypoventilation, ac on ch diastolic CHF SSS. H/o PAF, currently asymptomatic sinus mateo Chronic HFpEF Echo of 01/04/19 showed LVEF 65-70%, mod conc LVH, grade 1 gastelum dysfunction of LV, mod to sev enlargement of LA, PASP 45-[address] mmHg. [address] Michaud at [facility] in [place] on Jul 08, 2019 shows LVEF 60%. Bilat atrial enlargement. LVH. Mild MR and TR. Aortic valve sclerosis without stenosis; mod to severe AoR. PASP 53 mmHg. Hemoptysis during hospitalization of Jun 2019, small qty, managed by the Med [facility]. Bronchoscopy on 07/03/19 did not indicate any active bleed or inflammation COPD with several episodes of acute exacerbations in the recent past OAC with Eliquis - holding due to recurrent GI bleeds HTN - by history Mild to moderate CAD on coronary angiography in 2010 Obesity with obesity-hypoventilation, TERE, and pulm hypertension. PASP was 60-65 mmHg on echo of 2015; 45-50 mmHg on echo of 01/04/19 Marijuana use (urine test positive in January 2019) Chronic narcotic use d/t chronic back and joint pain Discussion and Recomendations * Complex management due to multiple comorbidities that are outline above * Not suitable for full anticoag due reasons noted above * Monitor and correct labs * Repeat echo Clinical Quality Measures DVT/VTE Risk/Contraindication: Risk Factor Score Per Nursin RFS Level Per Nursing on Admit: 4+=Very High PATSY SERVIN MD FACP FAC CCDS Aug 04, 2019 11:34 POS
[2019-08-04] MEDS: DEXMEDETOMIDINE 1,000 MCG/NS 250 ML IV SCH ×2 (19:41)
[2019-08-05] VITALS (32 sets, daily range): BP systolic 96–143; BP diastolic 34–77
[2019-08-05] MEDS: inSUlin ASPART (NovoLOG) 1 UNIT/0.01 ML (CHARGE PER UNIT) SC SCH ×4 (00:08→18:12)
[2019-08-05] MEDS: PROPOFOL DRIP (ICU) 100 ML IV SCH ×10 (01:00→21:27)
[2019-08-05] MEDS: RT-ALBUTEROL/IPRATROPIUM 3 ML (DUONEB) VIAL INH SCH ×6 (02:54→22:22)
[2019-08-05 03:27] LABS: BASOPHILS % (AUTO) 0 % (0-10); EOSINOPHILS # (AUTO) 0.1 10^3/uL (0.0-0.3); EOSINOPHILS % (AUTO) 2 % (0-10); HEMATOCRIT 29 % (40-54); HEMOGLOBIN 8.9 G/DL (13.3-17.7); LYMPHOCYTES # (AUTO) 1.2 X 10^3 (1.0-4.0); LYMPHOCYTES % (AUTO) 14 % (12-44); MEAN CORPUSCULAR HEMOGLOBIN 28 PG (25-34); MEAN CORPUSCULAR HGB CONC 30 G/DL (32-36); MEAN CORPUSCULAR VOLUME 93 FL (80-99); MEAN PLATELET VOLUME 9.2 FL (7.4-10.4); MONOCYTES # (AUTO) 0.9 X 10^3 (0.0-1.0); MONOCYTES % (AUTO) 11 % (0-12); NEUTROPHILS # (AUTO) 6.3 X 10^3 (1.8-7.8); NEUTROPHILS % (AUTO) 74 % (42-75); PLATELET COUNT 143 10^3/uL (130-400); RED CELL DISTRIBUTION WIDTH 17.8 % (10.0-14.5); WHITE BLOOD COUNT 8.6 10^3/uL (4.3-11.0)
[2019-08-05 03:45] LABS: CALCIUM 8.7 MG/DL (8.5-10.1); CREATININE SERUM 1.45 MG/DL (0.60-1.30); MAGNESIUM 1.9 MG/DL (1.6-2.4); PHOSPHORUS 4.9 MG/DL (2.3-4.7); POTASSIUM 4.8 MMOL/L (3.6-5.0)
[2019-08-05 04:12] LABS: ABG BASE EXCESS 9.2 MMOL/L (-2.5-2.5); ABG OXYGEN SATURATION 99 % (94-100); ABG PCO2 63 MMHG (35-45); ABG PH 7.36 (7.37-7.43); ABG PO2 114 MMHG (79-93); ABG TCO2 36.9 MMOL/L (21.0-31.0)
[2019-08-05] MEDS: MAGNESIUM 1 GM/100 ML IVPB 100 ML IV SCH (04:12)
[2019-08-05] MEDS: POTASSIUM CL 10MEQ/50ML IVPB 50 ML IV SCH (04:12)
[2019-08-05 04:13] LABS: ALLENS TEST YES-POS
[2019-08-05 04:14] LABS: INSPIRED O2 30%; PATIENT TEMP 36.2; VENTILATOR YES
[2019-08-05] MEDS: fentaNYL INJECTION 1,250 MCG in NS (IVPB) 250 ML IV SCH ×2 (05:31→19:13)
[2019-08-05] MEDS: PIPERACILLIN/TAZOBACTAM (BULK) 4.5 GM in NS (IVPB) 100 ML IV SCH ×3 (05:33→21:44)
[2019-08-05] MEDS: KCL 20 MEQ TAB (K-DUR) PO SCH ×2 (06:00→08:19)
[2019-08-05] MEDS ORDERED: MIDAZOLAM 5 MG/5 ML (VERSED) VIAL ONE ×2 (06:42→06:44)
[2019-08-05] MEDS: PANTOPRAZOLE 40 MG (PROTONIX) VIAL IV SCH (07:37)
[2019-08-05] MEDS ORDERED: MIDAZOLAM 5 MG/5 ML (VERSED) VIAL IVP ONE (07:45)
--- NOTE | 2019-08-05 07:49 | Progress Note ---
Subjective Time Seen by a Provider: 07:46 Subjective/Events-last exam Patient on ventilator. Patient had bronchoscopy this morning with removal of much mucus. Patient had a good night Focused Exam Lactate Level 08/03/19 14:05: Lactic Acid Level 0.68 Objective Exam Vital Signs Date Time Temp Pulse Resp B/P (MAP) Pulse Ox O2 Delivery O2 Flow Rate FiO2 08/05/19 07:39 36.72991 66 22 128/50 98 Mechanical Ventilator 08/05/19 06:02 66 22 98 30 08/05/19 06:00 68 28 128/50 (76) 98 Mechanical Ventilator 30.00 08/05/19 05:00 70 34 140/56 (84) 95 Mechanical Ventilator 30.00 08/05/19 04:54 36.57327 61 26 131/50 94 Mechanical Ventilator 08/05/19 04:00 71 34 123/76 (92) 91 Mechanical Ventilator 30.00 08/05/19 04:00 36.1 08/05/19 04:00 94 Mechanical Ventilator 30 08/05/19 03:05 36.99263 61 26 131/50 94 Mechanical Ventilator 08/05/19 03:00 61 26 131/50 (77) 98 Mechanical Ventilator 30.00 08/05/19 02:54 62 22 98 30 08/05/19 02:00 60 22 130/56 (80) 96 Mechanical Ventilator 35.00 08/05/19 01:00 56 22 121/52 (75) 96 Mechanical Ventilator 35.00 08/05/19 01:00 36.72912 60 22 130/56 96 Mechanical Ventilator 08/05/19 01:00 56 08/05/19 00:13 55 22 118/49 (72) 96 Mechanical Ventilator 35.00 08/05/19 00:02 36.1 08/05/19 00:00 96 Mechanical Ventilator 35 08/04/19 23:23 52 22 96 35 08/04/19 23:10 36.73292 64 24 116/42 94 Mechanical Ventilator 08/04/19 23:00 53 22 110/44 (66) 96 Mechanical Ventilator 35.00 08/04/19 22:00 53 22 127/48 (74) 96 Mechanical Ventilator 35.00 08/04/19 21:00 54 29 108/43 (64) 95 Mechanical Ventilator 35.00 08/04/19 20:00 95 Mechanical Ventilator 35 08/04/19 20:00 53 22 100/39 (59) 96 Mechanical Ventilator 35.00 08/04/19 19:50 36.2 08/04/19 19:42 36.37505 64 24 116/42 94 Mechanical Ventilator 08/04/19 19:30 50 22 94 35 08/04/19 19:23 50 22 94 35 08/04/19 19:00 53 24 95/37 (56) 93 Mechanical Ventilator 35.00 08/04/19 19:00 53 08/04/19 18:00 64 24 116/42 (66) 94 Mechanical Ventilator 35.00 08/04/19 17:00 56 15 124/51 (75) 92 Mechanical Ventilator 35.00 08/04/19 16:00 53 21 125/53 (77) 94 Mechanical Ventilator 35.00 08/04/19 16:00 96 Mechanical Ventilator 40 08/04/19 15:44 36.2 08/04/19 15:21 45 22 100 40 08/04/19 15:00 42 22 105/44 (64) 99 Mechanical Ventilator 40.00 08/04/19 14:00 40 21 99/42 (61) 98 Mechanical Ventilator 40.00 08/04/19 13:00 41 22 99/39 (59) 97 Mechanical Ventilator 40.00 08/04/19 12:09 43 08/04/19 12:01 96 Mechanical Ventilator 40 08/04/19 12:00 43 28 94/36 (55) 95 Mechanical Ventilator 40.00 08/04/19 11:38 36.2 08/04/19 11:05 41 22 95 40 08/04/19 11:00 41 22 90/35 (53) 95 Mechanical Ventilator 40.00 08/04/19 10:00 61 24 126/55 (78) 93 Mechanical Ventilator 40.00 08/04/19 09:00 73 38 178/81 (113) 91 Mechanical Ventilator 40.00 08/04/19 08:00 96 Mechanical Ventilator 40 08/04/19 08:00 46 20 114/51 (72) 97 Mechanical Ventilator 40.00 I & O 08/05/19 07:00 Intake Total 2000 ml Output Total 2550 ml Balance -550 ml Capillary Refill : Less Than 3 Seconds General Appearance: No Apparent Distress, WD/WN Neck: Normal Inspection Respiratory: No Accessory Muscle Use, No Respiratory Distress, Decreased Breath Sounds Cardiovascular: Regular Rate, Rhythm Gastrointestinal: non tender, soft Results Lab Laboratory Tests 08/05/19 03:15 Laboratory Tests 08/04/19 11:44: Glucometer 106 08/04/19 18:06: Glucometer 88 08/05/19 00:08: Glucometer 79 08/05/19 03:15: White Blood Count 8.6, Red Blood Count 3.15L, Hemoglobin 8.9L, Hematocrit 29L, Mean Corpuscular Volume 93, Mean Corpuscular Hemoglobin 28, Mean Corpuscular Hemoglobin Concent 30L, Red Cell Distribution Width 17.8H, Platelet Count 143, Mean Platelet Volume 9.2, Neutrophils (%) (Auto) 74, Lymphocytes (%) (Auto) 14, Monocytes (%) (Auto) 11, Eosinophils (%) (Auto) 2, Basophils (%) (Auto) 0, Neutrophils # (Auto) 6.3, Lymphocytes # (Auto) 1.2, Monocytes # (Auto) 0.9, Eosinophils # (Auto) 0.1, Basophils # (Auto) 0.0, Sodium Level 145, Potassium Level 4.8, Chloride Level 102, Carbon Dioxide Level 30, Anion Gap 13, Blood Urea Nitrogen 45H, Creatinine 1.45H, Estimat Glomerular Filtration Rate 49, BUN/Creatinine Ratio 31, Glucose Level 92, Calcium Level 8.7, Phosphorus Level 4.9H, Magnesium Level 1.9 08/05/19 04:05: Blood Gas Puncture Site LT RADIAL, Blood Gas Patient Temperature 36.2, Arterial Blood pH 7.36L, Arterial Blood Partial Pressure CO2 63H, Arterial Blood Partial Pressure O2 114H, Arterial Blood HCO3 35H, Arterial Blood Total CO2 36.9H, Arterial Blood Oxygen Saturation 99, Arterial Blood Base Excess 9.2H, Neil Test YES-POS, Blood Gas Ventilator Setting YES, Blood Gas Inspired Oxygen 30% Microbiology 08/03/19 Blood Culture - Preliminary, Resulted No growth 08/04/19 Gram Stain - Final, Resulted 08/04/19 Sputum Culture, Resulted Pending Assessment/Plan Assessment/Plan Assess & Plan/Chief Complaint Acute and chronic respiratory failure with hypoxia and hypercapnia. Renal insufficiency. CO2 narcosis. COPD with acute exacerbation. Pneumonia. Elevated troponin. Altered mental status. Proximal atrial fibrillation. Hypertension. Non-STEMI Clinical Quality Measures DVT/VTE Risk/Contraindication: Risk Factor Score Per Nursin RFS Level Per Nursing on Admit: 4+=Very High DANITA TEE DO Aug 05, 2019 07:49 POS
--- NOTE | 2019-08-05 07:55 | Pulmonary Procedures ---
Pulmonary Procedures Date of Procedure Date of Service: Aug 05, 2019 Bronch Bronchoscopy with bilateral bronchial washes with multiple passes secondary to clogging bronchoscope. Preop DX repeated episodes of PNA requiring hospitalization and copious amounts of sputum. Postop DX: copious mucous plugs clogging bronchoscope multiple passes made to clear mucous plugs . Pic taken Complications: none After informed consent obtained and formal time out pt was sedated using Fentanyl propofol and Versed. Bronchoscope was advanced through the ET tube. 1% lidocaine was used to anesthetize balwinder, and left/right main stem bronchus. An anatomical tour was undertaken down to the segmental bronchi bilaterally. No endobronchial lesions noted. copious mucous plugs clogging bronchoscope multiple passes made to clear mucous plugs . Pic taken. Bronchoscopy with bilateral bronchial washes with multiple passes secondary to clogging bronchoscope. Pt tolerated procedure well. No complications noted. Stat CXR is pending. JHON STEPHENSON DO Aug 05, 2019 07:55 POS
--- NOTE | 2019-08-05 07:57 | Diagnostic Imaging Report ---
EXAMINATION: Chest 1 view HISTORY: Dyspnea. COMPARISON: 08/04/2019 FINDINGS: There is stable configuration of the right internal jugular central line, endotracheal tube, and enteric tube. There is interval increase in the moderate to large right pleural effusion with consolidative opacities in the right perihilar and basilar region. Additional patchy opacities are seen in the right apex and left perihilar region. No large pneumothorax. There is stable cardiomegaly with central pulmonary vascular congestion. No acute osseous abnormalities. IMPRESSION: 1. Stable cardiomegaly and central pulmonary vascular congestion with increased pulmonary edema. 2. Increased moderate to large right pleural effusion with consolidative opacities in the right perihilar and basilar regions. This may represent a combination of atelectasis and edema. 3. Stable support devices. Dictated by: Dictated on workstation # [id number]
[2019-08-05] MEDS ORDERED: TROUGH ORDER-PHARMACY XX NR (08:00)
[2019-08-05] MEDS: RT-ADVAIR HFA 115/21 MCG PER PUFF IH SCH ×2 (08:01→18:58)
[2019-08-05] MEDS: aCETylcysteine 20% (MUCOMYST) 30ML SOLN VIAL INH SCH ×3 (08:01→14:22)
[2019-08-05] MEDS: DOCUSATE SODIUM 100 MG (COLACE) CAP PO SCH ×2 (08:19→20:28)
[2019-08-05] MEDS: ENOXAPARIN 40 MG/0.4 ML (LOVENOX) SYR SQ SCH ×2 (08:20→20:28)
[2019-08-05] MEDS: VANCOMYCIN 1500 MG/NS 500 ML IVPB IV SCH ×2 (08:20)
[2019-08-05] MEDS: BUMETANIDE 1 MG/4 ML (BUMEX) VIAL IV SCH (08:22)
--- NOTE | 2019-08-05 08:31 | Physical Therapy Progress Note ---
Therapy Progress Note Patient is currently sedated and on ventilator. PT will continue to monitor patient status and begin when medically stable and able to actively participate with skilled therapy. MOON DREW PT Aug 05, 2019 08:31 POS
[2019-08-05] MEDS ORDERED: LIDOCAINE PF 2% 5 ML (XYLOCAINE) VIAL INJ ONE (09:11)
--- NOTE | 2019-08-05 09:29 | Progress Note - Cardiology ---
Cardiology SOAP Progress Note Subjective: Remains intubated and sedated Objective: I&O/Vital Signs 08/05/19 08/05/19 08/05/19 08/05/19 19:47 20:00 20:00 21:00 Temp 36.8 Pulse 104 66 67 Resp 20 23 28 B/P (MAP) 116/77 (90) 102/41 (61) 109/43 (65) Pulse Ox 96 93 93 O2 Delivery Mechanical Ventilator Mechanical Ventilator Mechanical Ventilator O2 Flow Rate 30.00 30.00 FiO2 30 08/05/19 08/05/19 08/05/19 08/05/19 21:27 22:00 22:23 23:00 Pulse 68 68 71 Resp 21 22 22 B/P (MAP) 103/36 (58) 96/36 (56) Pulse Ox 93 93 93 O2 Delivery Mechanical Ventilator Mechanical Ventilator Mechanical Ventilator O2 Flow Rate 30.00 30.00 FiO2 30 08/06/19 08/06/19 08/06/19 08/06/19 00:00 00:00 00:03 00:09 Temp 36.8 Pulse 71 Resp 22 B/P (MAP) 103/40 (61) 103/40 Pulse Ox 97 O2 Delivery Mechanical Ventilator Mechanical Ventilator O2 Flow Rate 30.00 FiO2 30 08/06/19 08/06/19 08/06/19 08/06/19 01:00 01:00 02:00 02:37 Pulse 75 65 64 63 Resp 22 21 22 B/P (MAP) 103/41 (61) 102/43 (62) Pulse Ox 97 97 97 O2 Delivery Mechanical Ventilator Mechanical Ventilator O2 Flow Rate 30.00 30.00 FiO2 30 08/06/19 08/06/19 08/06/19 08/06/19 03:00 03:03 03:35 04:00 Temp 36.9 Pulse 64 Resp 22 B/P (MAP) 106/42 (63) Pulse Ox 97 O2 Delivery Mechanical Ventilator Mechanical Ventilator Mechanical Ventilator O2 Flow Rate 30.00 FiO2 30 08/06/19 08/06/19 08/06/19 08/06/19 04:00 05:00 06:00 07:23 Pulse 65 63 56 62 Resp 23 21 24 22 B/P (MAP) 103/43 (63) 109/45 (66) 97/40 (59) Pulse Ox 96 93 99 94 O2 Delivery Mechanical Ventilator Mechanical Ventilator Mechanical Ventilator O2 Flow Rate 30.00 30.00 30.00 FiO2 25 08/06/19 07:37 Pulse 62 Resp 22 Pulse Ox 94 FiO2 25 08/06/19 00:00 Intake Total 748 ml Output Total 1750 ml Balance -1002 ml Weight (Pounds): 348 Weight (Ounces): 6.0 Weight (Calculated Kilograms): 158.730617 Constitutional: other (on mech vent) Respiratory: No accessory muscle use; other (fair to good air entry bilat, somewhat prolonged exp) Cardiovascular: regular rate-rhythm, systolic murmur (soft LAWRENCE at card base) Gastrointestional: No tender, No guarding; audible bowel sounds Extremities: other (mild pitting and non-pitting edema); No clubbing, No cyanosis Neurologic/Psychiatric: other (he cannot cooperate with a neuro exam at this time) Skin: No rash on exposed areas, No ulcerations on exposed areas Results/Procedures: Labs Laboratory Tests 08/05/19 07:45: Triglycerides Level 180H, Vancomycin Level Trough 23.3H 08/05/19 11:24: Glucometer 125H 08/05/19 18:08: Glucometer 83 08/06/19 00:21: Glucometer 74 08/06/19 03:25: White Blood Count 7.3, Red Blood Count 2.82L, Hemoglobin 8.0L, Hematocrit 27L, Mean Corpuscular Volume 94, Mean Corpuscular Hemoglobin 28, Mean Corpuscular Hemoglobin Concent 30L, Red Cell Distribution Width 18.1H, Platelet Count 119L, Mean Platelet Volume 9.5, Neutrophils (%) (Auto) 72, Lymphocytes (%) (Auto) 15, Monocytes (%) (Auto) 12, Eosinophils (%) (Auto) 2, Basophils (%) (Auto) 0, Neutrophils # (Auto) 5.2, Lymphocytes # (Auto) 1.1, Monocytes # (Auto) 0.9, Eosinophils # (Auto) 0.1, Basophils # (Auto) 0.0, Sodium Level 145, Potassium Level 4.3, Chloride Level 101, Carbon Dioxide Level 33H, Anion Gap 11, Blood Urea Nitrogen 32H, Creatinine 1.30, Estimat Glomerular Filtration Rate 56, BUN/Creatinine Ratio 25, Glucose Level 76, Calcium Level 8.4L, Phosphorus Level 4.0, Magnesium Level 1.8, B-Type Natriuretic Peptide 149.4H 08/06/19 03:36: Blood Gas Puncture Site RIGHT RADIAL, Blood Gas Patient Temperature 36.9, Arterial Blood pH 7.39, Arterial Blood Partial Pressure CO2 61H, Arterial Blood Partial Pressure O2 61L, Arterial Blood HCO3 36H, Arterial Blood Total CO2 38.3H , Arterial Blood Oxygen Saturation 88L, Arterial Blood Base Excess 11.1H, Neil Test YES-POS, Blood Gas Ventilator Setting YES, Blood Gas Inspired Oxygen 30% Microbiology 08/03/19 Blood Culture - Preliminary, Resulted No growth 08/04/19 Gram Stain - Final, Resulted 08/04/19 Sputum Culture - Preliminary, Resulted YEAST Mixed Bacterial Anne-Marie Procedures Post bronch on 08-05-19 A/P: Assessment: Acute, Type II Resp failure Recurrent GI bleeds leading to anemia requiring transfusions - scope per Dr. Gaytan on 06/28/19: Colon Polyps Internal hemorrhoids; Gastritis ; Hiatal jadyn ia. Endoscopy of Jul 11, [address] [facility] showed sigmoid and ascending colon ulcer, nonbleeding (per D/C summary by Dr. Stack) Multifactorial shortness of breath: ac exac of COPD, severe anemia, obesity- hypoventilation, ac on ch diastolic CHF SSS. H/o PAF, currently asymptomatic sinus mateo Chronic HFpEF Echo of 01/04/19 showed LVEF 65-70%, mod conc LVH, grade 1 gastelum dysfunction of LV, mod to sev enlargement of LA, PASP 45-[address] mmHg[address] Michaud at [facility] in [place] on Jul 08, 2019 shows LVEF 60%. Bilat atrial enlargement. LVH. Mild MR and TR. Aortic valve sclerosis without stenosis; mod to severe AoR. PASP 53 mmHg. Hemoptysis during hospitalization of Jun 2019, small qty, managed by the Med Svce. Bronchoscopy on 07/03/19 did not indicate any active bleed or inflammation. Bronch on 08-05-19 with copious mucous plugging. COPD with several episodes of acute exacerbations in the recent past OAC with Eliquis - holding due to recurrent GI bleeds HTN - by history Mild to moderate CAD on coronary angiography in 2010 Obesity with obesity-hypoventilation, TERE, and pulm hypertension. PASP was 60-65 mmHg on echo of 2015; 45-50 mmHg on echo of 01/04/19 Marijuana use (urine test positive in January 2019) Chronic narcotic use d/t chronic back and joint pain Plan: * Complex management due to multiple comorbidities that are outline above * Not suitable for full anticoag due reasons noted above * Monitor and correct labs * Continue current regimen * S/P bronch by Dr. Forrest on 08-05-19 * Repeat echo PIEDAD GOEL Aug 05, 2019 09:29 POS
[2019-08-05] MEDS ORDERED: FLUCONAZOLE 200 MG/100 ML 100 ML IV NR (11:15)
--- NOTE | 2019-08-05 11:35 | NUR ---
Pastoral care visit,pt intubated no family present.
[2019-08-05] MEDS ORDERED: LINE600T15 PO (11:48)
[2019-08-05] MEDS ORDERED: FURO40TA4 PO (11:48)
[2019-08-05] MEDS ORDERED: PRD10T PO (11:48)
--- NOTE | 2019-08-05 11:50 | NUR ---
UNABLE TO SPEAK WITH THE PATIENT ABOUT MEDICATIONS AT THIS TIME. I CALLED AND HAD THE DISCHARGE ORDERS FAXED OVER FROM [facility] IN [facility]. HE WAS DISCHARGED FROM THERE ON 07-30-19. AT THAT TIME THE FOLLOWING CHANGES WERE MADE: START TAKING: FUROSEMIDE 40MG 1.5 TABS (60MG) BID (STARTING 07-30-19 UNTIL Mon07-29-2020)?? PREDNISONE 10MG 4 X 3 DAYS 2 X 3 DAYS THEN 1 X 3 DAYS (EXT MED HX SHOWS DIRECTIONS 4 X 3 DAYS, 2 X 2 DAYS AND 1 X 3 DAYS BUT THIS MAY HAVE BEEN MIS FILLED) CONTINUE THESE THAT HAVE CHANGED: BREO 100-25 DAILY AT 6AM ZYVOX 600MG BID X 7 DAYS STARTING 07-30-19 UNTIL 08-06-19 (FILLED 07-30-19 #14) STOP TAKING: BUMEX 0.5MG (THIS WAS PRESCRIBED ON DISCHARGE FROM [facility] 07-21-19) NOT REFLECTED ON THE DISCHARGE PAPERWORK FROM 07-21-19 WAS POTASSIUM 10MEQ DAILY WHEN TAKING BUMEX #30- THIS WAS PHONED IN AND FILLED AND PICKED UP HOWEVER NOT ON THE DISCHARGE PAPERWORK, I ASSUME SINCE IT WASN'T ON THE PAPERWORK THAT IS WHY IT IS NOT ADDRESSED ON THE PAPERWORK AT [facility], BEING THAT IF THE PATIENT PROVIDED THE DISCHARGE FROM [facility] HIS CURRENT MED LIST. I LEFT IT ON THE MED REC AT THIS TIME TO BE ADDRESSED. DULOXETINE WAS DISCONTINUED AT DISCHARGE FROM [facility] 07-21-19 AND LEXAPRO WAS PHONED IN UNDER DR. TEE. IT WAS PICKED UP FROM [facility] HOWEVER IT WAS NOT ON THE LIST FROM [facility]. I LEFT IT ON THE MED REC AT THIS TIME. ALSO NOT ADDRESSED ON THE DISCHARGE FROM [facility] WAS THE ALBUTEROL INHALER. THIS WAS RECENTLY FILLED AND REPORTED AT HIS LAST ADMISSION HERE AT [facility]. I LEFT IT ON THE MED REC AT THIS TIME.
[2019-08-05] MEDS ORDERED: ESCI20TA45 PO (11:59)
[2019-08-05] MEDS ORDERED: POTA10TA10 PO (11:59)
--- NOTE | 2019-08-05 12:58 | Occ Therapy Progress Note ---
Therapy Progress Note Pt on mechanical ventilation on this date. OT to check pt tomorrow to determine ability to participate in skilled therapy sessions. BRYAN PICHARDO OTR Aug 05, 2019 12:58 POS
[2019-08-05] MEDS: DEXMEDETOMIDINE 1,000 MCG/NS 250 ML IV SCH ×2 (13:24)
--- NOTE | 2019-08-05 13:31 | Progress Note - Cardiology ---
Cardiology SOAP Progress Note Subjective: Not able to provide any history (still on mech vent) Objective: I&O/Vital Signs 08/05/19 08/05/19 08/05/19 08/05/19 02:00 02:54 03:00 03:05 Temp 36.51942 Pulse 60 62 61 61 Resp 22 22 26 26 B/P (MAP) 130/56 (80) 131/50 (77) 131/50 Pulse Ox 96 98 98 94 O2 Delivery Mechanical Ventilator Mechanical Ventilator Mechanical Ventilator O2 Flow Rate 35.00 30.00 FiO2 30 08/05/19 08/05/19 08/05/19 08/05/19 04:00 04:00 04:00 04:54 Temp 36.1 36.61418 Pulse 71 61 Resp 34 26 B/P (MAP) 123/76 (92) 131/50 Pulse Ox 94 91 94 O2 Delivery Mechanical Ventilator Mechanical Ventilator Mechanical Ventilator O2 Flow Rate 30.00 FiO2 30 08/05/19 08/05/19 08/05/19 08/05/19 05:00 06:00 06:02 06:42 Pulse 70 68 66 66 Resp 34 28 22 22 B/P (MAP) 140/56 (84) 128/50 (76) Pulse Ox 95 98 98 O2 Delivery Mechanical Ventilator Mechanical Ventilator O2 Flow Rate 30.00 30.00 FiO2 30 08/05/19 08/05/19 08/05/19 08/05/19 07:00 07:00 07:00 07:39 Temp 36.8 36.77462 Pulse 85 81 66 Resp 19 22 B/P (MAP) 120/37 (64) 128/50 Pulse Ox 95 98 O2 Delivery Mechanical Ventilator Mechanical Ventilator O2 Flow Rate 30.00 08/05/19 08/05/19 08/05/19 08/05/19 08:00 08:00 08:02 09:00 Pulse 75 74 80 Resp 29 23 31 B/P (MAP) 130/47 (74) 143/55 (84) Pulse Ox 94 94 93 93 O2 Delivery Mechanical Ventilator Mechanical Ventilator Mechanical Ventilator O2 Flow Rate 30.00 30.00 FiO2 30 35 08/05/19 08/05/19 08/05/19 08/05/19 09:23 10:00 11:00 11:16 Pulse 76 75 Resp 28 23 B/P (MAP) 134/55 127/55 (79) 139/62 (87) 139/62 Pulse Ox 95 94 O2 Delivery Mechanical Ventilator Mechanical Ventilator O2 Flow Rate 30.00 30.00 08/05/19 08/05/19 08/05/19 12:00 12:15 13:24 Pulse 75 Resp 21 B/P (MAP) 135/61 (85) 117/44 Pulse Ox 92 97 O2 Delivery Mechanical Ventilator Mechanical Ventilator O2 Flow Rate 30.00 FiO2 30 08/05/19 00:00 Intake Total 1700 ml Output Total 1325 ml Balance 375 ml Weight (Pounds): 348 Weight (Ounces): 6.0 Weight (Calculated Kilograms): 158.410383 Constitutional: other (on [facility] vent) Respiratory: No accessory muscle use; other (fair to good air entry bilat, somewhat prolonged exp) Cardiovascular: regular rate-rhythm, systolic murmur (soft LAWRENCE at card base) Gastrointestional: No tender, No guarding; audible bowel sounds Extremities: other (mild pitting and non-pitting edema); No clubbing, No cyanosis Neurologic/Psychiatric: other (he cannot cooperate with a neuro exam at this time) Skin: No rash on exposed areas, No ulcerations on exposed areas Results/Procedures: Labs Laboratory Tests 08/04/19 18:06: Glucometer 88 08/05/19 00:08: Glucometer 79 08/05/19 03:15: White Blood Count 8.6, Red Blood Count 3.15L, Hemoglobin 8.9L, Hematocrit 29L, Mean Corpuscular Volume 93, Mean Corpuscular Hemoglobin 28, Mean Corpuscular Hemoglobin Concent 30L, Red Cell Distribution Width 17.8H, Platelet Count 143, Mean Platelet Volume 9.2, Neutrophils (%) (Auto) 74, Lymphocytes (%) (Auto) 14, Monocytes (%) (Auto) 11, Eosinophils (%) (Auto) 2, Basophils (%) (Auto) 0, Neutrophils # (Auto) 6.3, Lymphocytes # (Auto) 1.2, Monocytes # (Auto) 0.9, Eosinophils # (Auto) 0.1, Basophils # (Auto) 0.0, Sodium Level 145, Potassium Level 4.8, Chloride Level 102, Carbon Dioxide Level 30, Anion Gap 13, Blood Urea Nitrogen 45H, Creatinine 1.45H, Estimat Glomerular Filtration Rate 49, BUN/Creatinine Ratio 31, Glucose Level 92, Calcium Level 8.7, Phosphorus Level 4.9H, Magnesium Level 1.9 08/05/19 04:05: Blood Gas Puncture Site LT RADIAL, Blood Gas Patient Temperature 36.2, Arterial Blood pH 7.36L, Arterial Blood Partial Pressure CO2 63H, Arterial Blood Partial Pressure O2 114H, Arterial Blood HCO3 35H, Arterial Blood Total CO2 36.9H, Arterial Blood Oxygen Saturation 99, Arterial Blood Base Excess 9.2H, Neil Test YES-POS, Blood Gas Ventilator Setting YES, Blood Gas Inspired Oxygen 30% 08/05/19 07:45: Triglycerides Level 180H, Vancomycin Level Trough 23.3H 08/05/19 11:24: Glucometer 125H Microbiology 08/03/19 Blood Culture - Preliminary, Resulted No growth 08/04/19 Gram Stain - Final, Resulted 08/04/19 Sputum Culture - Preliminary, Resulted YEAST Mixed Bacterial Anne-Marie Laboratory Tests 08/03/19 14:05 08/04/19 04:10 08/05/19 03:15 A/P: Assessment: Acute, Type II Resp failure Recurrent GI bleeds leading to anemia requiring transfusions - scope per Dr. Gaytan on 06/28/19: Colon Polyps Internal hemorrhoids; Gastritis ; Hiatal hernia. Endoscopy of Jul 11, 2019 at [facility] showed sigmoid and ascending colon ulcer, nonbleeding (per D/C summary by Dr. Stack) Multifactorial shortness of breath: ac exac of COPD, severe anemia, obesity-hypoventilation, ac on ch diastolic CHF SSS. H/o PAF, currently asymptomatic sinus mateo Chronic HFpEF Echo of 01/04/19 showed LVEF 65-70%, mod conc LVH, grade 1 gastelum dysfunction of LV, mod to sev enlargement of LA, PASP 45-50 mmHg[address] Michaud at [facility] in [place] on Jul 08, 2019 shows LVEF 60%. Bilat atrial enlargement. LVH. Mild MR and TR. Aortic valve sclerosis without stenosis; mod to severe AoR. PASP 53 mmHg. Hemoptysis during hospitalization of Jun 2019, small qty, managed by the Med Svce. Bronchoscopy on 07/03/19 did not indicate any active bleed or inflamma tion. Bronch on 08-05-19 with copious mucous plugging. COPD with several episodes of acute exacerbations in the recent past OAC with Eliquis - holding due to recurrent GI bleeds HTN - by history Mild to moderate CAD on coronary angiography in 2010 Obesity with obesity-hypoventilation, TERE, and pulm hypertension. PASP was 60-65 mmHg on echo of 2015; 45-50 mmHg on echo of 01/04/19 Marijuana use (urine test positive in January 2019) Chronic narcotic use d/t chronic back and joint pain Plan: * Complex management due to multiple comorbidities that are outline above * Not suitable for full anticoag due reasons noted above * Monitor and correct labs * Continue current regimen * S/P bronch by Dr. Forrest on 08-05-19 * Repeat echo PATSY SERVIN MD FACP FAC CCDS Aug 05, 2019 13:31 POS
--- NOTE | 2019-08-05 14:24 | NUR ---
Received dietary consult regarding pt's vent status. If pt is to remain on vent for more than 3 days, would recommend the following TF: Glucerna 1.5 at goal rate of 65 ml/hr. Begin at 10 ml/hr and increase by 10 ml q6h as tolerated. At goal rate, provides 2340 kcal (15 kcal/kg); 129 g Pro (0.8 g Pro/kg); and 1184 ml free water. Flush with 150 ml H2O q4h for hydration status. With flushes, provides 2084 ml free water. Will continue to follow and reassess as pt needs and status change. Steve Benavides MS, RD, LD [phone]
[2019-08-05] MEDS ORDERED: VANCOMYCIN INJECTION 1,250 MG in NS (IVPB) 250 ML IV SCH (18:00)
[2019-08-06] VITALS (33 sets, daily range): BP systolic 97–172; BP diastolic 39–97
[2019-08-06] MEDS: PROPOFOL DRIP (ICU) 100 ML IV SCH ×2 (00:09→03:03)
[2019-08-06] MEDS: inSUlin ASPART (NovoLOG) 1 UNIT/0.01 ML (CHARGE PER UNIT) SC SCH ×4 (00:25→18:41)
[2019-08-06] MEDS: RT-ALBUTEROL/IPRATROPIUM 3 ML (DUONEB) VIAL INH SCH ×4 (02:37→14:42)
[2019-08-06 03:34] LABS: BASOPHILS % (AUTO) 0 % (0-10); EOSINOPHILS # (AUTO) 0.1 10^3/uL (0.0-0.3); EOSINOPHILS % (AUTO) 2 % (0-10); HEMATOCRIT 27 % (40-54); LYMPHOCYTES # (AUTO) 1.1 X 10^3 (1.0-4.0); LYMPHOCYTES % (AUTO) 15 % (12-44); MEAN CORPUSCULAR HEMOGLOBIN 28 PG (25-34); MEAN CORPUSCULAR HGB CONC 30 G/DL (32-36); MEAN CORPUSCULAR VOLUME 94 FL (80-99); MEAN PLATELET VOLUME 9.5 FL (7.4-10.4); MONOCYTES # (AUTO) 0.9 X 10^3 (0.0-1.0); MONOCYTES % (AUTO) 12 % (0-12); NEUTROPHILS # (AUTO) 5.2 X 10^3 (1.8-7.8); NEUTROPHILS % (AUTO) 72 % (42-75); PLATELET COUNT 119 10^3/uL (130-400); RED CELL DISTRIBUTION WIDTH 18.1 % (10.0-14.5); WHITE BLOOD COUNT 7.3 10^3/uL (4.3-11.0)
[2019-08-06 03:39] LABS: ABG BASE EXCESS 11.1 MMOL/L (-2.5-2.5); ABG OXYGEN SATURATION 88 % (94-100); ABG PCO2 61 MMHG (35-45); ABG PH 7.39 (7.37-7.43); ABG PO2 61 MMHG (79-93); ABG TCO2 38.3 MMOL/L (21.0-31.0)
[2019-08-06 03:43] LABS: ALLENS TEST YES-POS; INSPIRED O2 30%; PATIENT TEMP 36.9; VENTILATOR YES
[2019-08-06 04:00] LABS: CALCIUM 8.4 MG/DL (8.5-10.1); CREATININE SERUM 1.3 MG/DL (0.60-1.30); MAGNESIUM 1.8 MG/DL (1.6-2.4); POTASSIUM 4.3 MMOL/L (3.6-5.0)
--- NOTE | 2019-08-06 04:17 | Pulmonary Progress Note ---
Subjective Date Seen by a Provider: Aug 05, 2019 (Late note ) Time Seen by a Provider: 04:16 Subjective/Events-last exam Pt is sedated on vent. Sepsis Event Evaluation Height, Weight, BMI Height: 5'10.00" Weight: 348lbs. 6.0oz. 158.443681wq; 40.00 BMI Method:Stated Focused Exam Lactate Level 08/03/19 14:05: Lactic Acid Level 0.68 Exam Exam Vital Signs Date Time Temp Pulse Resp B/P (MAP) Pulse Ox O2 Delivery O2 Flow Rate FiO2 08/06/19 03:35 36.9 08/06/19 03:03 Mechanical Ventilator 08/06/19 02:37 63 22 97 30 08/06/19 01:00 75 08/06/19 00:09 103/40 08/06/19 00:03 36.8 08/06/19 00:00 Mechanical Ventilator 30 08/05/19 22:23 68 22 93 30 08/05/19 22:00 68 21 103/36 (58) 93 Mechanical Ventilator 30.00 08/05/19 21:27 Mechanical Ventilator 08/05/19 21:00 67 28 109/43 (65) 93 Mechanical Ventilator 30.00 08/05/19 20:00 66 23 102/41 (61) 93 Mechanical Ventilator 30.00 08/05/19 20:00 Mechanical Ventilator 30 08/05/19 19:47 36.8 104 20 116/77 (90) 96 08/05/19 19:03 63 22 93 30 08/05/19 19:00 64 21 103/38 (59) 93 Mechanical Ventilator 30.00 08/05/19 19:00 70 08/05/19 18:59 63 22 93 30 08/05/19 18:05 99/41 08/05/19 18:00 64 21 99/41 (60) 93 Mechanical Ventilator 30.00 08/05/19 17:00 65 22 100/34 (56) 93 Mechanical Ventilator 30.00 08/05/19 16:00 64 17 111/44 (66) 97 Mechanical Ventilator 30.00 08/05/19 16:00 97 Mechanical Ventilator 30 08/05/19 15:55 117/47 08/05/19 15:33 36.8 08/05/19 15:00 64 11 117/47 (70) 99 Mechanical Ventilator 30.00 08/05/19 14:54 Mechanical Ventilator 30.00 08/05/19 14:22 Mechanical Ventilator 21.00 08/05/19 14:22 66 22 95 35 08/05/19 14:00 65 17 110/43 (65) 96 Mechanical Ventilator 30.00 08/05/19 13:24 117/44 08/05/19 13:00 66 29 117/44 (68) 97 Mechanical Ventilator 30.00 08/05/19 13:00 70 08/05/19 12:15 97 Mechanical Ventilator 30 08/05/19 12:00 75 21 135/61 (85) 92 Mechanical Ventilator 30.00 08/05/19 11:22 36.6 08/05/19 11:16 139/62 08/05/19 11:00 75 23 139/62 (87) 94 Mechanical Ventilator 30.00 08/05/19 10:00 76 28 127/55 (79) 95 Mechanical Ventilator 30.00 08/05/19 09:23 134/55 08/05/19 09:00 80 31 143/55 (84) 93 Mechanical Ventilator 30.00 08/05/19 08:02 74 23 93 35 08/05/19 08:00 94 Mechanical Ventilator 30 08/05/19 08:00 75 29 130/47 (74) 94 Mechanical Ventilator 30.00 08/05/19 07:39 36.39866 66 22 128/50 98 Mechanical Ventilator 08/05/19 07:00 81 08/05/19 07:00 36.8 08/05/19 07:00 85 19 120/37 (64) 95 Mechanical Ventilator 30.00 08/05/19 06:42 66 22 08/05/19 06:02 66 22 98 30 08/05/19 06:00 68 28 128/50 (76) 98 Mechanical Ventilator 30.00 08/05/19 05:00 70 34 140/56 (84) 95 Mechanical Ventilator 30.00 08/05/19 04:54 36.36668 61 26 131/50 94 Mechanical Ventilator I & O 08/06/19 07:00 Intake Total 1388 ml Output Total 3750 ml Balance -2362 ml Height & Weight Height: 5'10.00" Weight: 348lbs. 6.0oz. 158.268999rz; 40.00 BMI Method:Stated General Appearance: Chronically ill, Obese, Other (lethargic. When asked to scoot from the EMS cot to our bed he does attempt to do this but is too weak to do so. GCS 11) HEENT: PERRL/EOMI, TMs Normal Neck: Full Range of Motion, Normal Inspection Respiratory: No Accessory Muscle Use, No Respiratory Distress Cardiovascular: Regular Rate, Rhythm, Normal Peripheral Pulses Capillary Refill: Less Than 3 Seconds Gastrointestinal: non tender, soft Extremity: Normal Capillary Refill, Normal Inspection Neurologic/Psychiatric: Other (Sedated, twitching) Skin: Normal Color, Warm/Dry Results Lab Laboratory Tests 08/05/19 03:15 08/06/19 03:25 Assessment/Plan Assessment/Plan Acute on chronic respiratory failure -Continue ventilator care -ABG C02 >100 Hx of hemoptysis s/p Bronchoscopy on 07/03/19 - no signs of active bleed -Will plan on repeating bronchoscopy this AM COPDAE with hx of severe COPD oxygen dependent -SVNS -Solumedrol Group III pulmonary HTN Morbid obesity with OHS and TERE - Diastolic heart disfunction Acute on chronic renal failure NSTEMI PAfib/SSS -Cardiology following Marijuanna use Recent GIB requiring transfusions s/p recent scopes -OAC with Eliquis - holding due to recurrent GI bleeds Mild to moderate CAD on coronary angiography in 2010 JHON STEPHENSON DO Aug 06, 2019 04:17 POS
--- NOTE | 2019-08-06 04:23 | Pulmonary Progress Note ---
Subjective Time Seen by a Provider: 04:25 Subjective/Events-last exam Sedated on vent Sepsis Event Evaluation Height, Weight, BMI Height: 5'10.00" Weight: 348lbs. 6.0oz. 158.008582ih; 40.00 BMI Method:Stated Focused Exam Lactate Level 08/03/19 14:05: Lactic Acid Level 0.68 Exam Exam Vital Signs Date Time Temp Pulse Resp B/P (MAP) Pulse Ox O2 Delivery O2 Flow Rate FiO2 08/06/19 03:35 36.9 08/06/19 03:03 Mechanical Ventilator 08/06/19 02:37 63 22 97 30 08/06/19 01:00 75 08/06/19 00:09 103/40 08/06/19 00:03 36.8 08/06/19 00:00 Mechanical Ventilator 30 08/05/19 22:23 68 22 93 30 08/05/19 22:00 68 21 103/36 (58) 93 Mechanical Ventilator 30.00 08/05/19 21:27 Mechanical Ventilator 08/05/19 21:00 67 28 109/43 (65) 93 Mechanical Ventilator 30.00 08/05/19 20:00 66 23 102/41 (61) 93 Mechanical Ventilator 30.00 08/05/19 20:00 Mechanical Ventilator 30 08/05/19 19:47 36.8 104 20 116/77 (90) 96 08/05/19 19:03 63 22 93 30 08/05/19 19:00 64 21 103/38 (59) 93 Mechanical Ventilator 30.00 08/05/19 19:00 70 08/05/19 18:59 63 22 93 30 08/05/19 18:05 99/41 08/05/19 18:00 64 21 99/41 (60) 93 Mechanical Ventilator 30.00 08/05/19 17:00 65 22 100/34 (56) 93 Mechanical Ventilator 30.00 08/05/19 16:00 64 17 111/44 (66) 97 Mechanical Ventilator 30.00 08/05/19 16:00 97 Mechanical Ventilator 30 08/05/19 15:55 117/47 08/05/19 15:33 36.8 08/05/19 15:00 64 11 117/47 (70) 99 Mechanical Ventilator 30.00 08/05/19 14:54 Mechanical Ventilator 30.00 08/05/19 14:22 Mechanical Ventilator 21.00 08/05/19 14:22 66 22 95 35 08/05/19 14:00 65 17 110/43 (65) 96 Mechanical Ventilator 30.00 08/05/19 13:24 117/44 08/05/19 13:00 66 29 117/44 (68) 97 Mechanical Ventilator 30.00 08/05/19 13:00 70 08/05/19 12:15 97 Mechanical Ventilator 30 08/05/19 12:00 75 21 135/61 (85) 92 Mechanical Ventilator 30.00 08/05/19 11:22 36.6 08/05/19 11:16 139/62 08/05/19 11:00 75 23 139/62 (87) 94 Mechanical Ventilator 30.00 08/05/19 10:00 76 28 127/55 (79) 95 Mechanical Ventilator 30.00 08/05/19 09:23 134/55 08/05/19 09:00 80 31 143/55 (84) 93 Mechanical Ventilator 30.00 08/05/19 08:02 74 23 93 35 08/05/19 08:00 94 Mechanical Ventilator 30 08/05/19 08:00 75 29 130/47 (74) 94 Mechanical Ventilator 30.00 08/05/19 07:39 36.81907 66 22 128/50 98 Mechanical Ventilator 08/05/19 07:00 81 08/05/19 07:00 36.8 08/05/19 07:00 85 19 120/37 (64) 95 Mechanical Ventilator 30.00 08/05/19 06:42 66 22 08/05/19 06:02 66 22 98 30 08/05/19 06:00 68 28 128/50 (76) 98 Mechanical Ventilator 30.00 08/05/19 05:00 70 34 140/56 (84) 95 Mechanical Ventilator 30.00 08/05/19 04:54 36.75707 61 26 131/50 94 Mechanical Ventilator I & O 08/06/19 07:00 Intake Total 1388 ml Output Total 3750 ml Balance -2362 ml Height & Weight Height: 5'10.00" Weight: 348lbs. 6.0oz. 158.523198rn; 40.00 BMI Method:Stated General Appearance: Chronically ill, Obese, Other (lethargic. When asked to scoot from the EMS cot to our bed he does attempt to do this but is too weak to do so. GCS 11) HEENT: PERRL/EOMI, TMs Normal Neck: Full Range of Motion, Normal Inspection Respiratory: No Accessory Muscle Use, No Respiratory Distress Cardiovascular: Regular Rate, Rhythm, Normal Peripheral Pulses Capillary Refill: Less Than 3 Seconds Gastrointestinal: non tender, soft Extremity: Normal Capillary Refill, Normal Inspection Neurologic/Psychiatric: Other (Sedated, twitching) Skin: Normal Color, Warm/Dry Results Lab Laboratory Tests 08/05/19 03:15 08/06/19 03:25 Assessment/Plan Assessment/Plan Acute on chronic respiratory failure -Continue ventilator care -Will wean vent -ABG C02 >100 - on admission -Pt already has a vent to mask at home Stage II diastolic failure -Bumex started yesterday -Continue to monitor Hx of hemoptysis s/p Bronchoscopy on 07/03/19 - no signs of active bleed -Will plan on repeating bronchoscopy this AM COPDAE with hx of severe COPD oxygen dependent -SVNS -Solumedrol Group III pulmonary HTN Morbid obesity with OHS and TERE - Diastolic heart disfunction Acute on chronic renal failure NSTEMI PAfib/SSS -Cardiology following Marijuanna use Recent GIB requiring transfusions s/p recent scopes -OAC with Eliquis - holding due to recurrent GI bleeds Mild to moderate CAD on coronary angiography in 2010 JHON STEPHENSON DO Aug 06, 2019 04:23 POS
[2019-08-06] MEDS ORDERED: DEXMEDETOMIDINE INJECTION 200 MCG in NS (IVPB) 50 ML IV SCH (04:30)
[2019-08-06] MEDS: MAGNESIUM 1 GM/100 ML IVPB 100 ML IV SCH (05:00)
[2019-08-06] MEDS: KCL 20 MEQ TAB (K-DUR) PO SCH (05:00)
[2019-08-06] MEDS: POTASSIUM CL 10MEQ/50ML IVPB 50 ML IV SCH (05:00)
[2019-08-06] MEDS: PIPERACILLIN/TAZOBACTAM (BULK) 4.5 GM in NS (IVPB) 100 ML IV SCH ×3 (05:19→21:25)
[2019-08-06] MEDS: BUMETANIDE 1 MG/4 ML (BUMEX) VIAL IV SCH (05:20)
[2019-08-06] MEDS: DEXMEDETOMIDINE 1,000 MCG/NS 250 ML IV SCH ×4 (05:20→07:47)
[2019-08-06] MEDS: PANTOPRAZOLE 40 MG (PROTONIX) VIAL IV SCH (05:20)
[2019-08-06] MEDS: RT-ADVAIR HFA 115/21 MCG PER PUFF IH SCH ×2 (07:23→18:54)
[2019-08-06] MEDS: ENOXAPARIN 40 MG/0.4 ML (LOVENOX) SYR SQ SCH ×2 (07:46→20:31)
[2019-08-06] MEDS: DOCUSATE SODIUM 100 MG (COLACE) CAP PO SCH ×2 (07:46→20:34)
--- NOTE | 2019-08-06 07:57 | Progress Note ---
Subjective Time Seen by a Provider: 07:53 Subjective/Events-last exam Patient awake on ventilator intubated. Patient states she's having chest pain I trying to write it. EKG and troponin ordered. May be extubated today Focused Exam Lactate Level 08/03/19 14:05: Lactic Acid Level 0.68 Objective Exam Vital Signs Date Time Temp Pulse Resp B/P (MAP) Pulse Ox O2 Delivery O2 Flow Rate FiO2 08/06/19 07:37 62 22 94 25 08/06/19 07:23 62 22 94 25 08/06/19 06:00 56 24 97/40 (59) 99 Mechanical Ventilator 30.00 08/06/19 05:00 63 21 109/45 (66) 93 Mechanical Ventilator 30.00 08/06/19 04:00 65 23 103/43 (63) 96 Mechanical Ventilator 30.00 08/06/19 04:00 Mechanical Ventilator 30 08/06/19 03:35 36.9 08/06/19 03:03 Mechanical Ventilator 08/06/19 03:00 64 22 106/42 (63) 97 Mechanical Ventilator 30.00 08/06/19 02:37 63 22 97 30 08/06/19 02:00 64 21 102/43 (62) 97 Mechanical Ventilator 30.00 08/06/19 01:00 65 22 103/41 (61) 97 Mechanical Ventilator 30.00 08/06/19 01:00 75 08/06/19 00:09 103/40 08/06/19 00:03 36.8 08/06/19 00:00 71 22 103/40 (61) 97 Mechanical Ventilator 30.00 08/06/19 00:00 Mechanical Ventilator 30 08/05/19 23:00 71 22 96/36 (56) 93 Mechanical Ventilator 30.00 08/05/19 22:23 68 22 93 30 08/05/19 22:00 68 21 103/36 (58) 93 Mechanical Ventilator 30.00 08/05/19 21:27 Mechanical Ventilator 08/05/19 21:00 67 28 109/43 (65) 93 Mechanical Ventilator 30.00 08/05/19 20:00 66 23 102/41 (61) 93 Mechanical Ventilator 30.00 08/05/19 20:00 Mechanical Ventilator 30 08/05/19 19:47 36.8 104 20 116/77 (90) 96 08/05/19 19:03 63 22 93 30 12/2/19 19:00 64 21 103/38 (59) 93 Mechanical Ventilator 30.00 08/05/19 19:00 70 08/05/19 18:59 63 22 93 30 08/05/19 18:05 99/41 08/05/19 18:00 64 21 99/41 (60) 93 Mechanical Ventilator 30.00 08/05/19 17:00 65 22 100/34 (56) 93 Mechanical Ventilator 30.00 08/05/19 16:00 64 17 111/44 (66) 97 Mechanical Ventilator 30.00 08/05/19 16:00 97 Mechanical Ventilator 30 08/05/19 15:55 117/47 08/05/19 15:33 36.8 08/05/19 15:00 64 11 117/47 (70) 99 Mechanical Ventilator 30.00 08/05/19 14:54 Mechanical Ventilator 30.00 08/05/19 14:22 Mechanical Ventilator 21.00 08/05/19 14:22 66 22 95 35 08/05/19 14:00 65 17 110/43 (65) 96 Mechanical Ventilator 30.00 08/05/19 13:24 117/44 08/05/19 13:00 66 29 117/44 (68) 97 Mechanical Ventilator 30.00 08/05/19 13:00 70 08/05/19 12:15 97 Mechanical Ventilator 30 08/05/19 12:00 75 21 135/61 (85) 92 Mechanical Ventilator 30.00 08/05/19 11:22 36.6 08/05/19 11:16 139/62 08/05/19 11:00 75 23 139/62 (87) 94 Mechanical Ventilator 30.00 08/05/19 10:00 76 28 127/55 (79) 95 Mechanical Ventilator 30.00 08/05/19 09:23 134/55 08/05/19 09:00 80 31 143/55 (84) 93 Mechanical Ventilator 30.00 08/05/19 08:02 74 23 93 35 08/05/19 08:00 94 Mechanical Ventilator 30 08/05/19 08:00 75 29 130/47 (74) 94 Mechanical Ventilator 30.00 I & O 08/06/19 07:00 Intake Total 2288 ml Output Total 3950 ml Balance -1662 ml Capillary Refill : Less Than 3 Seconds General Appearance: No Apparent Distress, WD/WN HEENT: Normal ENT Inspection Neck: Normal Inspection Respiratory: No Accessory Muscle Use, No Respiratory Distress, Decreased Breath Sounds Cardiovascular: Regular Rate, Rhythm, No Murmur Gastrointestinal: non tender, soft Results Lab Laboratory Tests 08/06/19 03:25 Laboratory Tests 08/05/19 11:24: Glucometer 125H 08/05/19 18:08: Glucometer 83 08/06/19 00:21: Glucometer 74 08/06/19 03:25: White Blood Count 7.3, Red Blood Count 2.82L, Hemoglobin 8.0L, Hematocrit 27L, Mean Corpuscular Volume 94, Mean Corpuscular Hemoglobin 28, Mean Corpuscular Hemoglobin Concent 30L, Red Cell Distribution Width 18.1H, Platelet Count 119L, Mean Platelet Volume 9.5, Neutrophils (%) (Auto) 72, Lymphocytes (%) (Auto) 15, Monocytes (%) (Auto) 12, Eosinophils (%) (Auto) 2, Basophils (%) (Auto) 0, Neutrophils # (Auto) 5.2, Lymphocytes # (Auto) 1.1, Monocytes # (Auto) 0.9, Eosinophils # (Auto) 0.1, Basophils # (Auto) 0.0, Sodium Level 145, Potassium Level 4.3, Chloride Level 101, Carbon Dioxide Level 33H, Anion Gap 11, Blood Urea Nitrogen 32H, Creatinine 1.30, Estimat Glomerular Filtration Rate 56, BUN/Creatinine Ratio 25, Glucose Level 76, Calcium Level 8.4L, Phosphorus Level 4.0, Magnesium Level 1.8, B-Type Natriuretic Peptide 149.4H 08/06/19 03:36: Blood Gas Puncture Site RIGHT RADIAL, Blood Gas Patient Temperature 36.9, Arterial Blood pH 7.39, Arterial Blood Partial Pressure CO2 61H, Arterial Blood Partial Pressure O2 61L, Arterial Blood HCO3 36H, Arterial Blood Total CO2 38.3H , Arterial Blood Oxygen Saturation 88L, Arterial Blood Base Excess 11.1H, Neil Test YES-POS, Blood Gas Ventilator Setting YES, Blood Gas Inspired Oxygen 30% Microbiology 08/03/19 Blood Culture - Preliminary, Resulted No growth 08/04/19 Gram Stain - Final, Resulted 08/04/19 Sputum Culture - Preliminary, Resulted YEAST Mixed Bacterial Anne-Marie Assessment/Plan Assessment/Plan Assess & Plan/Chief Complaint Acute and chronic respiratory failure with hypoxia and hypercapnia. Renal insufficiency. CO2 narcosis. COPD with acute exacerbation. Pneumonia. Elevated troponin. Altered mental status. Proximal atrial fibrillation. Hypertension. Non-STEMI. . 08/06/19. Chest pain. Acute and chronic respiratory failure with hypoxia and hypercapnia. Renal insufficiency. CO2 narcosis. Pneumonia. Elevated troponin. Altered mental status. Paroxysmal atrial fibrillation. Hypertension. None STEMI Clinical Quality Measures DVT/VTE Risk/Contraindication: Risk Factor Score Per Nursin RFS Level Per Nursing on Admit: 4+=Very High DAINTA TEE DO Aug 06, 2019 07:56 POS
--- NOTE | 2019-08-06 08:00 | Physical Therapy Progress Note ---
Therapy Progress Note Patient continues to be intubated and sedated. PT will continue to monitor and begin PT when patient is medically stable and able to actively participate in skilled physical therapy. MOON DREW PT Aug 06, 2019 08:00 POS
--- NOTE | 2019-08-06 08:08 | NUR ---
THIS NURSE NOTIFIED DR TEE PT EKG AND TROPONIN LEVELS. NO NEW ORDERS AT THIS TIME.
--- NOTE | 2019-08-06 08:11 | Diagnostic Imaging Report ---
INDICATION: Dyspnea. TECHNIQUE: Single view chest 4:05 AM. CORRELATION STUDY: 08/05/2019 FINDINGS: Endotracheal tube, gastric tube and right IJ central line remain in place. Unchanged severity cardiac enlargement present with pulmonary vascular congestion perhaps minimally improved. Extensive opacification through the right lung does persist. However, there has been some improvement in overall aeration to the lung triana. IMPRESSION: 1. Stable support lines and tubes. 2. Cardiac enlargement. Severity of vascular congestion does appear to be perhaps slightly improved. Extensive infiltrates throughout the lung triana, right greater than left, stable to slightly improved as well. Underlying right effusion appears diminished. Dictated by: Dictated on workstation # [id number]
--- NOTE | 2019-08-06 08:51 | Progress Note - Cardiology ---
Cardiology SOAP Progress Note Subjective: Remains intubated, but alert today. Nodding head in answer to questions. Objective: I&O/Vital Signs 08/08/19 00:00 Intake Total 0 ml Output Total 675 ml Balance -675 ml Weight (Pounds): 348 Weight (Ounces): 6.0 Weight (Calculated Kilograms): 158.774769 Constitutional: other (on mech vent) Respiratory: No accessory muscle use; other (fair to good air entry bilat, somewhat prolonged exp) Cardiovascular: regular rate-rhythm, systolic murmur (soft LAWRENCE at card base) Gastrointestional: No tender, No guarding; audible bowel sounds, other (OG tube in place with red secretions) Extremities: other (mild pitting and non-pitting edema); No clubbing, No cyanosis Neurologic/Psychiatric: other (he cannot cooperate with a neuro exam at this time) Skin: No rash on exposed areas, No ulcerations on exposed areas Results/Procedures: Labs Microbiology 08/07/19 Blood Culture - Preliminary, Resulted No growth 08/07/19 Gram Stain - Final, Resulted 08/07/19 Sputum Culture - Preliminary, Resulted Pseudomonas species 08/07/19 Urine Culture - Final, Complete NO GROWTH Procedures NAME: KEMAR JERONIMO [facility] REC#: [id number] PT STATUS: ADM IN : 1955 PHYSICIAN: IVAN FONG MD ADMIT DATE: 08/03/19/ICU Draft Date of Exam:08/06/19 CHEST 1 VIEW, AP/PA ONLY INDICATION: Dyspnea. TECHNIQUE: Single view chest 4:05 AM. CORRELATION STUDY: 08/05/2019 FINDINGS: Endotracheal tube, gastric tube and right IJ central line remain in place. Unchanged severity cardiac enlargement present with pulmonary vascular congestion perhaps minimally improved. Extensive opacification through the right lung does persist. However, there has been some improvement in overall aeration to the lung triana. IMPRESSION: 1. Stable support lines and tubes. 2. Cardiac enlargement. Severity of vascular congestion does appear to be perhaps slightly improved. Extensive infiltrates throughout the lung triana, right greater than left, stable to slightly improved as well. Underlying right effusion appears diminished. Dictated on workstation # [id number] Dict: 08/06/19 0741 Trans: 08/06/19 0810 [facility] [id number] Interpreted by: EMERY ABBOTT DO Electronically signed by: A/P: Assessment: Acute, Type II Resp failure Recurrent GI bleeds leading to anemia requiring transfusions - scope per Dr. Gaytan on 06/28/19: Colon Polyps Internal hemorrhoids; Gastritis ; Hiatal hernia. Endoscopy of Jul 11, 2019 at [facility] showed sigmoid and ascending colon ulcer, nonbleeding (per D/C summary by Dr. Stack) Multifactorial shortness of breath: ac exac of COPD, severe anemia, obesity- hypoventilation, ac on ch diastolic CHF SSS. H/o PAF, currently asymptomatic sinus mateo Chronic HFpEF Echo of 01/04/19 showed LVEF 65-70%, mod conc LVH, grade 1 gastelum dysfunction of LV, mod to sev enlargement of LA, PASP 45-[address] mmHg[address] Michaud at [facility] in [place] on Jul 08, 2019 shows LVEF 60%. Bilat atrial enlargement. LVH. Mild MR and TR. Aortic valve sclerosis without stenosis; mod to severe AoR. PASP 53 mmHg. Hemoptysis during hospitalization of Jun 2019, small qty, managed by the [facility]. Bronchoscopy on 07/03/19 did not indicate any active bleed or inflammation. Bronch on 08-05-19 with copious mucous plugging. COPD with several episodes of acute exacerbations in the recent past OAC with Eliquis - holding due to recurrent GI bleeds HTN - by history Mild to moderate CAD on coronary angiography in 2010 Obesity with obesity-hypoventilation, TERE, and pulm hypertension. PASP was 60-65 mmHg on echo of 2015; 45-50 mmHg on echo of 01/04/19 Marijuana use (urine test positive in January 2019) Chronic narcotic use d/t chronic back and joint pain Plan: * Complex management due to multiple comorbidities that are outline above * Not suitable for full anticoag due reasons noted above * Monitor and correct labs * Continue current regimen * H/H continuing to fall - advise transfusion of 2 units PRBC with Lasix in between * Repeat echo PIEDAD GOEL Aug 06, 2019 08:51 POS
[2019-08-06] MEDS ORDERED: FUROSEMIDE 40 MG/4 ML INJ (LASIX) IVP NR (09:00)
[2019-08-06] MEDS ORDERED: FLUCONAZOLE 200 MG/100 ML 50 ML, EMPTY IV BAG (PVC) 1 EA IV SCH ×2 (09:00)
--- NOTE | 2019-08-06 09:00 | NUR ---
THIS NURSE NOTIFIED PIEDAD WITH DR SERVIN THAT PT WAS C/O CHEST PAIN. EKG ON CHART AND TROPONIN LEVELS. NO NEW ORDERS AT THIS TIME.
--- NOTE | 2019-08-06 10:02 | Occ Therapy Progress Note ---
Therapy Progress Note Pt on mechanical ventilation on this date. OT to continue to monitor and evaluate for skilled therapy when extubated and medically stable. TATYANA LEWIS OT Aug 06, 2019 10:02 POS
[2019-08-06 10:19] LABS: ABG BASE EXCESS 10.3 MMOL/L (-2.5-2.5); ABG OXYGEN SATURATION 80 % (94-100); ABG PCO2 55 MMHG (35-45); ABG PH 7.42 (7.37-7.43); ABG PO2 43 MMHG (79-93); ABG TCO2 37.1 MMOL/L (21.0-31.0)
[2019-08-06 10:20] LABS: ALLENS TEST YES-POS; INSPIRED O2 30%; PATIENT TEMP 36.1; VENTILATOR YES
--- NOTE | 2019-08-06 10:32 | NUR ---
THIS NURSE NOTIFIED DR STEPHENSON OF PT ABG RESULTS. PT IS ALERT AND ORIENTED. PT O2 SATS 93-94% AND RR 28-30. ORDERS GIVEN TO EXTUBATED AND PUT PT ON VAPOTHERM. RT AT BEDSIDE. PT EXTUBATED AT 1045 AND PLACED ON VAPOTHERM PER RT.
--- NOTE | 2019-08-06 10:58 | Progress Note - Cardiology ---
Cardiology SOAP Progress Note Subjective: Still intubated, but appears responsive today Shakes head in the negative to questions of shortness of breath and chest pain or palp Wants tube out Objective: I&O/Vital Signs 08/05/19 08/06/19 08/06/19 08/06/19 23:00 00:00 00:00 00:03 Temp 36.8 Pulse 71 71 Resp 22 22 B/P (MAP) 96/36 (56) 103/40 (61) Pulse Ox 93 97 O2 Delivery Mechanical Ventilator Mechanical Ventilator Mechanical Ventilator O2 Flow Rate 30.00 30.00 FiO2 30 08/06/19 08/06/19 08/06/19 08/06/19 00:09 01:00 01:00 02:00 Pulse 75 65 64 Resp 22 21 B/P (MAP) 103/40 103/41 (61) 102/43 (62) Pulse Ox 97 97 O2 Delivery Mechanical Ventilator Mechanical Ventilator O2 Flow Rate 30.00 30.00 08/06/19 08/06/19 08/06/19 08/06/19 02:37 03:00 03:03 03:35 Temp 36.9 Pulse 63 64 Resp 22 B/P (MAP) 106/42 (63) Pulse Ox 97 97 O2 Delivery Mechanical Ventilator Mechanical Ventilator O2 Flow Rate 30.00 FiO2 30 08/06/19 08/06/19 08/06/19 08/06/19 04:00 04:00 05:00 06:00 Pulse 65 63 56 Resp 23 21 24 B/P (MAP) 103/43 (63) 109/45 (66) 97/40 (59) Pulse Ox 96 93 99 O2 Delivery Mechanical Ventilator Mechanical Ventilator Mechanical Ventilator Mechanical Ventilator O2 Flow Rate 30.00 30.00 30.00 FiO2 30 08/06/19 08/06/19 08/06/19 08/06/19 07:00 07:00 07:23 07:37 Pulse 59 57 62 62 Resp 22 22 B/P (MAP) 114/45 (68) Pulse Ox 97 94 94 O2 Delivery Mechanical Ventilator O2 Flow Rate 30.00 FiO2 25 25 08/06/19 08/06/19 08/06/19 08:00 09:00 09:35 Pulse 59 59 Resp 25 31 B/P (MAP) 109/43 (65) 118/47 (70) Pulse Ox 96 93 O2 Delivery Mechanical Ventilator Mechanical Ventilator O2 Flow Rate 30.00 30.00 FiO2 25 08/06/19 00:00 Intake Total 748 ml Output Total 1750 ml Balance -1002 ml Weight (Pounds): 348 Weight (Ounces): 6.0 Weight (Calculated Kilograms): 158.862397 Constitutional: other (on mech vent) Respiratory: No accessory muscle use; other (fair to good air entry bilat, somewhat prolonged exp) Cardiovascular: regular rate-rhythm, systolic murmur (soft LAWRENCE at card base) Gastrointestional: No tender, No guarding; audible bowel sounds, other (OG tube in place with red secretions) Extremities: other (mild pitting and non-pitting edema); No clubbing, No cyano sis Neurologic/Psychiatric: other (he cannot cooperate with a neuro exam at this time) Skin: No rash on exposed areas, No ulcerations on exposed areas Results/Procedures: Labs Laboratory Tests 08/05/19 11:24: Glucometer 125H 08/05/19 18:08: Glucometer 83 08/06/19 00:21: Glucometer 74 08/06/19 03:25: White Blood Count 7.3, Red Blood Count 2.82L, Hemoglobin 8.0L, Hematocrit 27L, Mean Corpuscular Volume 94, Mean Corpuscular Hemoglobin 28, Mean Corpuscular Hemoglobin Concent 30L, Red Cell Distribution Width 18.1H, Platelet Count 119L, Mean Platelet Volume 9.5, Neutrophils (%) (Auto) 72, Lymphocytes (%) (Auto) 15, Monocytes (%) (Auto) 12, Eosinophils (%) (Auto) 2, Basophils (%) (Auto) 0, Neutrophils # (Auto) 5.2, Lymphocytes # (Auto) 1.1, Monocytes # (Auto) 0.9, Eosinophils # (Auto) 0.1, Basophils # (Auto) 0.0, Sodium Level 145, Potassium Level 4.3, Chloride Level 101, Carbon Dioxide Level 33H, Anion Gap 11, Blood Ure a Nitrogen 32H, Creatinine 1.30, Estimat Glomerular Filtration Rate 56, BUN/Creatinine Ratio 25, Glucose Level 76, Calcium Level 8.4L, Phosphorus Level 4.0, Magnesium Level 1.8, B-Type Natriuretic Peptide 149.4H 08/06/19 03:36: Blood Gas Puncture Site RIGHT RADIAL, Blood Gas Patient Temperature 36.9, Arterial Blood pH 7.39, Arterial Blood Partial Pressure CO2 61H, Arterial Blood Partial Pressure O2 61L, Arterial Blood HCO3 36H, Arterial Blood Total CO2 38.3H , Arterial Blood Oxygen Saturation 88L, Arterial Blood Base Excess 11.1H, Neil Test YES-POS, Blood Gas Ventilator Setting YES, Blood Gas Inspired Oxygen 30% 08/06/19 08:12: Troponin I 0.082H 08/06/19 10:13: Blood Gas Puncture Site LR, Blood Gas Patient Temperature 36.1, Arterial Blood pH 7.42, Arterial Blood Partial Pressure CO2 55H, Arterial Blood Partial Pressure O2 43L, Arterial Blood HCO3 35H, Arterial Blood Total CO2 37.1H, Arterial Blood Oxygen Saturation 80L, Arterial Blood Base Excess 10.3H, Neil Te st YES-POS, Blood Gas Ventilator Setting YES, Blood Gas Inspired Oxygen 30% Microbiology 08/03/19 Blood Culture - Preliminary, Resulted No growth 08/05/19 Gram Stain - Final, Resulted 08/05/19 Bronchial Culture - Preliminary, Resulted 08/05/19 Fungal Culture 1, Resulted Pending Laboratory Tests 08/05/19 03:15 08/06/19 03:25 A/P: Assessment: Acute, Type II Resp failure Recurrent GI bleeds leading to anemia requiring transfusions - scope per Dr. Gaytan on 06/28/19: Colon Polyps Internal hemorrhoids; Gastritis ; Hiatal hernia. Endoscopy of Jul 11, 2019 at [facility] showed sigmoid and ascending colon ulcer, nonbleeding (per D/C summary by Dr. Stack). Worsening of anemia on lab work of 08/06/19 Multifactorial shortness of breath: ac exac of COPD, severe anemia, obesity- hypoventilation, ac on ch diastolic CHF SSS. H/o PAF, currently asymptomatic sinus mateo Chronic HFpEF Echo of 08/05/19 showed LVEF 65-70%, mild to mod conc LVH, grade 2 gastelum dysfunction of LV, biatrial enlargement, mild to mod AI and TR, PASP 50 mmHg Hemoptysis during hospitalization of Jun 2019, small qty, managed by the [facility]. Bronchoscopy on 07/03/19 did not indicate any active bleed or inflammation. Bronch on 08-05-19 with copious mucous plugging. COPD with several episodes of acute exacerbations in the recent past OAC with Eliquis - holding due to recurrent GI bleeds HTN - by history Mild to moderate CAD on coronary angiography in 2010 Obesity with obesity-hypoventilation, TERE, and pulm hypertension. PASP was 60-65 mmHg on echo of 2015; 45-50 mmHg on echo of 01/04/19 Marijuana use (urine test positive in January 2019) Chronic narcotic use d/t chronic back and joint pain Plan: * Complex management due to multiple comorbidities that are outline above * Not suitable for full anticoag due reasons noted above * Monitor and correct labs * Continue current regimen * H/H continuing to fall - advise transfusion of 2 units PRBC with Lasix in between * Repeat echo PATSY SERVIN MD FACP FAC CCDS Aug 06, 2019 10:58 POS
--- NOTE | 2019-08-06 12:01 | Physical Therapy Evaluation ---
PT Evaluation-General Medical Diagnosis Admission Date Aug 03, 2019 at 16:07 Medical Diagnosis: CO2 narcosis, COPD exacerbation, pneumonia Onset Date: Aug 03, 2019 Therapy Diagnosis Therapy Diagnosis: weakness Height/Weight Height (Feet): 5 Height (Inches): 10.00 Weight (Pounds): 348 Weight (Ounces): 6.0 Precautions Precautions/Isolations: Fall Prevention, Standard Precautions Referral Physician: Amy Reason for Referral: Evaluation/Treatment Medical History Pertinent Medical History: CAD, COPD, DM, HTN, Smoking Current History EMS secondary to trouble breathing Reviewed History: Yes Social History Home: Single Level Current Living Status: Spouse Prior Prior Level of Function SCALE: Activities may be completed with or without assistive devices. 2-Bwpshfhhlb-ealbsnu completes the activity by him/herself with no assistance from a helper. 5-Set-up or Clean-up Assistance-helper sets up or cleans up; patient completes activity. Troy assists only prior to or following the activity. 4-Supervision or Touching Assistance-helper provides verbal cues and/or touching/steadying and/or contact guard assistance as patient completes activity. Assistance may be provided throughout the activity or intermittently. 3-Partial/Moderate Assistance-helper does LESS THAN HALF the effort. Troy lifts, holds or supports trunk or limbs, but provides less than half the effort. 2-Substantial/Maximal Assistance-helper does MORE THAN HALF the effort. Troy lifts or holds trunk or limbs and provides more than half the effort. 5-Xnfmktwsx-kgkwrp does ALL the effort. Patient does none of the effort to complete the activity. Or, the assistance of 2 or more helpers is required for the patient to complete the activity. If activity was not attempted, code reason: 7-Patient Refused. 9-Not Applicable-not attempted and the patient did not perform the activity before the current illness, exacerbation or injury. 10-Not Attempted due to Environmental Limitations-(lack of equipment, weather restraints, etc.). 88-Not Attempted due to Medical Conditions or Safety Concerns. Bed Mobility: 6 Transfers (B,C,W/C): 6 Gait: 6 Stairs: 6 Indoor Mobility (Ambulation): Independent Stairs: Independent PT Evaluation-Current Subjective Patient agrees to PT to sit to EOB at this time. Daughter is present. Nursing states patient was extubated this morning and is no longer sedated. Reports no pain during session but SOB after sitting up and return to supine. Objective Patient Orientation: Normal For Age Attachments: SCD's, Oxygen (vapotherm), Ac Catheter, IV ROM/Strength ROM Lower Extremities WFL Strength Lower Extremities Unable to assess in supine Integumentary/Posture Integumentary See nursing notes Bowel Incontinence: Yes Bladder Incontinence: Ac Cath Posture WFL; some backwards lean seated EOB Neuromuscular (Tone, Coordination, Reflexes) Grossly intact Sensory Vision: Functional Hearing: Functional Transfers Roll Left to Right (QC): 1 Sit to Lying (QC): 2 Lying to Sitting/Side of Bed(Q: 1 Sit to Stand (QC): 1 Chair/Bjx-fr-Odirg Xfer(QC): 88 Car Transfer (QC): 88 dependent assist x 2 with attempt to sit to stand and with scooting up toward HOB for repositioning. Gait Does the Patient Walk?: No and Walking Goal IS indicated Mode of Locomotion: Walk Anticipated Mode of Locomotion: Walk Walk 10 feet (QC): 88 Walk 50 ft with 2 Turns(QC): 88 Walk 150 ft (QC): 88 Walking 10ft/uneven surface-QC: 88 Wheelchair Training Does the Pt Use a Wheelchair?: No Wheel 50 ft with 2 turns (QC): 9 Wheel 150 ft (QC): 9 Type of Wheelchair: Manual Stairs 1 Step (curb) (QC): 88 4 Steps (QC): 88 12 Steps (QC): 88 Balance Sitting Static: Good Sitting Dynamic: Good Picking up an Object (QC): 88 Assessment/Needs Patient able to roll to side in bed with dependent assistance and required max assist to sit to EOB with movement of legs and upper body. Once sitting EOB, patient able to sustain sitting posture with some backwards lean on occasion. Patient required dependent assist of 2 to stand from EOB and attempt to scoot toward HOB. Patient felt fatigued and O2 sats declined during transfer. Dependent assist x 3 required to transfer patient from sitting EOB to supine in bed. During transfers, patient IV came out of R wrist and bleeding was addressed by nursing. O2 sats dropped to 80% during transfer. Nursing gradually increased vapotherm from 25 LPM and 30% to 30 and 50%. After a couple minutes, O2 sats were maintained at 92%. Patient noted SOB and exhaustion at conclusion of session. Rehab Potential: Guarded PT Child Therapist Goals Care Home Goals PT Care Home Goals Time Frame: Aug 23, 2019 Roll Left & Right (QC): 6 Sit to Lying (QC): 6 Lying-Sitting on Side/Bed(QC): 6 Sit to Stand (QC): 6 Chair/Ure-ct-Zombl Xfer(QC): 6 Toilet Transfer (QC): 6 Car Transfer (QC): 6 Does the Patient Walk: Yes Walk 10 feet (QC): 6 Walk 50ft with 2 Turns (QC): 6 Walk 150 ft (QC): 6 Walking 10ft on Uneven Surface: 6 1 Step (curb) (QC): 6 4 Steps (QC): 6 12 Steps (QC): 9 Picking up an Object (QC): 6 Does the Pt use WC or Scooter?: No Type: N/A Type: N/A PT Plan Problem List Problem List: Activity Tolerance, Functional Strength, Safety, Balance, Gait, Transfer, Bed Mobility Treatment/Plan Treatment Plan: Continue Plan of Care Treatment Plan: Bed Mobility, Education, Functional Activity Sneha, Functional Strength, Gait, Safety, Therapeutic Exercise, Transfers Treatment Duration: Aug 23, 2019 Frequency: 6 times per week Estimated Hrs Per Day: .25 hour per day Patient and/or Family Agrees t: Yes Time/GCodes Time In: 1103 Time Out: 1135 Total Billed Treatment Time: 32 Total Billed Treatment 1 visit EVHighC 15min FA 17min MOON DREW PT Aug 06, 2019 12:01 POS
--- NOTE | 2019-08-06 12:03 | Occ Therapy Progress Note ---
Therapy Progress Note Pt seen by PT this AM, PT reports they helped pt sit EOB and he was very fatigued afterwards. OT will plan to assess pt tomorrow. TATYANA LEWIS OT Aug 06, 2019 12:03 POS
--- NOTE | 2019-08-06 13:24 | NUR ---
THIS NURSE NOTIFIED DR STEPHENSON PT IS A/O X4. PT PASSED BEDSIDE SWALLOW TEST. ORDERS GIVEN FOR CLEAR LIQUID DIET AND ADVANCE TOLERATED.
--- NOTE | 2019-08-06 15:09 | NUR ---
Wasted 65 ML's of fentenyl with Leticia Wilson RN.
[2019-08-06] MEDS: NS IV 500 ML 500 ML IV NR ×3 (15:35→17:59)
[2019-08-06] MEDS: aCETylcysteine 20% (MUCOMYST) 30ML SOLN VIAL INH SCH (19:03)
[2019-08-07] VITALS (20 sets, daily range): BP systolic 100–170; BP diastolic 45–76
[2019-08-07] MEDS: inSUlin ASPART (NovoLOG) 1 UNIT/0.01 ML (CHARGE PER UNIT) SC SCH ×3 (00:14→12:42)
[2019-08-07 00:24] LABS: HEMOGLOBIN 10.2 G/DL (13.3-17.7)
[2019-08-07 03:49] LABS: BASOPHILS % (AUTO) 0 % (0-10); EOSINOPHILS % (AUTO) 0 % (0-10); HEMATOCRIT 35 % (40-54); HEMOGLOBIN 10.7 G/DL (13.3-17.7); LYMPHOCYTES # (AUTO) 0.6 X 10^3 (1.0-4.0); LYMPHOCYTES % (AUTO) 4 % (12-44); MEAN CORPUSCULAR HEMOGLOBIN 29 PG (25-34); MEAN CORPUSCULAR HGB CONC 30 G/DL (32-36); MEAN CORPUSCULAR VOLUME 94 FL (80-99); MEAN PLATELET VOLUME 9.8 FL (7.4-10.4); MONOCYTES # (AUTO) 1.2 X 10^3 (0.0-1.0); MONOCYTES % (AUTO) 8 % (0-12); NEUTROPHILS # (AUTO) 13.7 X 10^3 (1.8-7.8); NEUTROPHILS % (AUTO) 88 % (42-75); PLATELET COUNT 135 10^3/uL (130-400); RED CELL DISTRIBUTION WIDTH 17.7 % (10.0-14.5); WHITE BLOOD COUNT 15.5 10^3/uL (4.3-11.0)
[2019-08-07 03:57] LABS: ABG OXYGEN SATURATION 96 % (94-100); ABG PO2 92 MMHG (79-93); ABG TCO2 39.8 MMOL/L (21.0-31.0)
[2019-08-07 04:01] LABS: ABG PCO2 95 MMHG (35-45); ABG PH 7.21 (7.37-7.43)
[2019-08-07 04:02] LABS: ALLENS TEST YES-POS; INSPIRED O2 70%; VENTILATOR NO
[2019-08-07 04:03] LABS: PATIENT TEMP 36.7
[2019-08-07] MEDS ORDERED: LACTATED RINGERS 1,000 ML IV ONE ×2 (04:12→05:15)
[2019-08-07] MEDS ORDERED: PROPOFOL DRIP (ICU) 100 ML IV ONE (04:13)
[2019-08-07 04:14] LABS: CALCIUM 9.5 MG/DL (8.5-10.1); CREATININE SERUM 1.38 MG/DL (0.60-1.30); PHOSPHORUS 6.2 MG/DL (2.3-4.7); POTASSIUM 4.7 MMOL/L (3.6-5.0)
[2019-08-07] MEDS: PROPOFOL DRIP (ICU) 100 ML IV SCH ×4 (04:23→12:34)
[2019-08-07 04:29] LABS: BAND NEUTROPHILS 3 %; LYMPHOCYTES % (MANUAL) 3 %; MONOCYTES % (MANUAL) 11 %; NEUTROPHILS % (MANUAL) 83 %; RBC MORPH NORMAL; STOMATOCYTES SLIGHT
--- NOTE | 2019-08-07 04:32 | Pulmonary Progress Note ---
Subjective Time Seen by a Provider: 04:52 Subjective/Events-last exam Acute respiratory failure through the night. Pt received 2 units of PRBC and continued to decline after transfusions. Sepsis Event Evaluation Height, Weight, BMI Height: 5'10.00" Weight: 348lbs. 6.0oz. [id number]; 40.00 BMI Method:Stated Exam Exam Vital Signs Date Time Temp Pulse Resp B/P (MAP) Pulse Ox O2 Delivery O2 Flow Rate FiO2 08/07/19 03:11 93 Vapotherm 30.00 65 08/07/19 01:46 Vapotherm 30.00 65.00 08/07/19 01:00 79 08/07/19 00:00 77 24 149/57 (87) 94 Vapotherm 30.00 70.00 08/07/19 00:00 Vapotherm 30.00 70 08/06/19 23:30 Vapotherm 30.00 70.00 08/06/19 23:30 36.7 Vapotherm 30.00 70.00 08/06/19 23:25 92 Vapotherm 30.00 70 08/06/19 23:00 78 25 155/70 (98) 94 Vapotherm 40.00 60.00 08/06/19 22:00 75 17 156/68 (97) 95 Vapotherm 40.00 60.00 08/06/19 21:43 36.6 Vapotherm 40.00 60.00 08/06/19 21:42 36.6 76 20 148/58 94 Vapotherm 40.00 60 08/06/19 21:00 77 22 148/58 (88) 92 Vapotherm 40.00 60.00 08/06/19 20:21 36.4 08/06/19 20:00 75 23 149/61 (90) 93 Vapotherm 40.00 60.00 08/06/19 20:00 Vapotherm 40.00 60 08/06/19 19:00 Vapotherm 40.00 60.00 08/06/19 19:00 84 29 151/73 (99) 93 Vapotherm 40.00 60.00 08/06/19 19:00 84 08/06/19 18:53 37.0 83 24 151/73 94 Vapotherm 60 08/06/19 18:52 94 Vapotherm 40.00 60 08/06/19 18:29 37.6 86 22 165/67 9 Vapotherm 60 08/06/19 18:05 37.4 80 20 169/68 Vapotherm 60 08/06/19 18:00 94 27 172/58 (96) 90 Vapotherm 20.00 50.00 08/06/19 17:00 81 41 140/52 (81) 91 Vapotherm 20.00 50.00 08/06/19 16:12 37.2 79 20 135/56 92 Vapotherm 50 08/06/19 16:00 92 Vapotherm 50 08/06/19 16:00 80 28 135/44 (74) 91 Vapotherm 20.00 50.00 08/06/19 15:46 37.4 82 22 132/55 Vapotherm 50 08/06/19 15:43 37.0 08/06/19 15:00 82 25 126/44 (71) 92 Vapotherm 20.00 50.00 08/06/19 14:45 Vapotherm 20.00 50.00 08/06/19 14:43 91 Vapotherm 20.00 50 08/06/19 14:00 73 29 128/48 (74) 92 Vapotherm 25.00 30.00 08/06/19 13:00 70 23 116/97 (103) 90 Vapotherm 25.00 30.00 08/06/19 13:00 73 08/06/19 12:26 36.7 08/06/19 12:00 63 29 109/39 (62) 92 Vapotherm 25.00 30.00 08/06/19 12:00 94 Vapotherm 50 08/06/19 11:00 64 35 115/49 (71) 100 Vapotherm 25.00 30.00 08/06/19 10:52 Vapotherm 25.00 30.00 08/06/19 10:45 100 Vapotherm 25.00 30 08/06/19 10:00 65 29 133/54 (80) 95 Mechanical Ventilator 30.00 08/06/19 09:35 25 08/06/19 09:00 59 31 118/47 (70) 93 Mechanical Ventilator 30.00 08/06/19 08:00 59 25 109/43 (65) 96 Mechanical Ventilator 30.00 08/06/19 08:00 Mechanical Ventilator 30 08/06/19 07:37 62 22 94 25 08/06/19 07:23 62 22 94 25 08/06/19 07:00 57 08/06/19 07:00 59 19 114/45 (68) 97 Mechanical Ventilator 30.00 08/06/19 06:00 56 24 97/40 (59) 99 Mechanical Ventilator 30.00 08/06/19 05:00 63 21 109/45 (66) 93 Mechanical Ventilator 30.00 I & O 08/07/19 07:00 Intake Total 620 ml Output Total 3600 ml Balance -2980 ml Height & Weight Height: 5'10.00" Weight: 348lbs. 6.0oz. 158.113413oh; 40.00 BMI Method:Stated General Appearance: Chronically ill, Obese, Other (lethargic with accessory muscle use ) HEENT: PERRL/EOMI, TMs Normal Neck: Full Range of Motion, Normal Inspection Respiratory: Accessory Muscle Use, Crackles, Decreased Breath Sounds, Respiratory Distress Cardiovascular: Regular Rate, Rhythm, Normal Peripheral Pulses Capillary Refill: Less Than 3 Seconds Gastrointestinal: non tender, soft Extremity: Normal Capillary Refill, Normal Inspection Neurologic/Psychiatric: Other (lethargic ) Skin: Normal Color, Warm/Dry Lymphatic: No Adenopathy Results Lab Laboratory Tests 08/06/19 03:25 08/07/19 00:17 08/07/19 03:40 Assessment/Plan Assessment/Plan Acute on chronic respiratory failure -Pt extubated yesterday. Was doing well however has decompensated through the night. He currently has increased respiratory accessory muscle use. ABG shows acute respiratory acidosis. Will proceed with reintubation. -Pt already has a vent to mask at home -Will check CTA of chest -Will D/w Dr. Reyes regarding tracheostomy Pseudomonas PNA - present on admission -Worsening respiratory status and elevated WBC -Change abx to Levaquin and Merrem. Has been on Zosyn x 5 days Pleural effusion - hx of thoracentesis -Cytology has been negative. Anemia -Pt received 2 units of PRBC per cardiology yesterday -Please hold on further transfusion unless Hb is < 7 secondary to respir atory status. -Will increase Protonix to Q12 IV Stage II diastolic failure -Bumex-- hold secondary to expected hypotension from intubation -Continue to monitor Hx of hemoptysis s/p Bronchoscopy on 07/03/19 - Repeat bronch 08/06/19 - no signs of active bleed - No current signs of hemoptysis COPDAE with hx of severe COPD oxygen dependent -SVNS -Solumedrol Group III pulmonary HTN Morbid obesity with OHS and TERE - Diastolic heart disfunction Acute on chronic renal failure NSTEMI PAfib/SSS -Cardiology following Marijuanna use Recent GIB requiring transfusions s/p recent scopes -OAC with Eliquis - holding due to recurrent GI bleeds Mild to moderate CAD on coronary angiography in 2010 Multiple hospitalizations JHON STEPHENSON DO Aug 07, 2019 04:31 POS
[2019-08-07 05:07] LABS: ALBUMIN 3.4 GM/DL (3.2-4.5); BILIRUBIN,TOTAL 0.5 MG/DL (0.1-1.0); TOTAL PROTEIN 6.9 GM/DL (6.4-8.2)
[2019-08-07] MEDS: MEROPENEM 1,000 MG in WATER (STERILE) FOR INJECTION 20 ML IV SCH ×2 (05:23→12:44)
[2019-08-07] MEDS: methylPREDNISolone 40 MG/ML (Solu-MEDROL) VIAL IV SCH ×2 (05:24→12:44)
[2019-08-07] MEDS: KCL 20 MEQ TAB (K-DUR) PO SCH (05:24)
[2019-08-07] MEDS: POTASSIUM CL 10MEQ/50ML IVPB 50 ML IV SCH (05:37)
[2019-08-07] MEDS: MAGNESIUM 1 GM/100 ML IVPB 100 ML IV SCH (05:37)
--- NOTE | 2019-08-07 05:40 | NUR ---
Timeline: 329--Pt increasingly more lethargic throughout night, requiring more oxygen, increased work of breathing, ABG obtained 400--Critical results received, Adriane at bedside, ordered to intubate, pt verbalized consent to this RN, Dr Forrest, and two other ICU RNs, RT notified 414--4mg Versed IV given per Dr Forrest 417--5 ml Propofol IV given per Dr Forrest 418--50 mcg Fentanyl IV given per Dr Forrest 419--Successful initial intubation by Dr Forrest, 8.0 ET tube, 24 cm @ gum, vent settings to 450 TV, RR 18, PEEP 10, FiO2 100% 423--OG inserted, to intermittent low wall suction 508--Daughter notified, updated on pt condition
--- NOTE | 2019-08-07 05:49 | Pulmonary Procedures ---
Pulmonary Procedures Date of Procedure Date of Service: Aug 07, 2019 Reason for Intubation: acute respiratory failure Time of Intubation: 05:48 Intubation Method: orotracheal Tube Size: 8 Medications: Fentanyl, Propofol, Versed Positive End Tide CO2: Yes Breath Sounds after Intubation: bilateral-equal Intubation Complications: no complications Post Intubation Xray: Yes JHON STEPHENSON DO Aug 07, 2019 05:49 POS
--- NOTE | 2019-08-07 05:59 | Diagnostic Imaging Report ---
INDICATION: Intubation. Respiratory distress. Comparison with 08/07/2019. FINDINGS: ET tube is in good position with tip just above the balwinder. NG tube present tip of which is not well seen due to underpenetration but appears to be in the distal esophagus. Would recommend increased penetration film for detail. Right central line remains in good position. Cardiomegaly with bilateral basilar alveolar infiltrates. There has been improved aeration since previous exam. Right basilar pleural effusion. IMPRESSION: 1. ET tube in good position. NG tube indeterminate likely in distal esophagus as described. 2. Bilateral alveolar infiltrates with pleural effusion and cardiomegaly show no improvement. Dictated by: Dictated on workstation # [id number]
[2019-08-07 06:18] LABS: BILIRUBIN,URINE NEGATIVE (NEGATIVE); CLARITY,URINE CLEAR; COLOR,URINE YELLOW; GLUCOSE, URINE (UA) NEGATIVE (NEGATIVE); KETONES,URINE NEGATIVE (NEGATIVE); LEUKOCYTE ESTERASE ,URINE NEGATIVE (NEGATIVE); NITRITE,URINE NEGATIVE (NEGATIVE); PROTEIN,URINE 3+ (NEGATIVE)
[2019-08-07 06:27] LABS: ABG BASE EXCESS 9.6 MMOL/L (-2.5-2.5); ABG OXYGEN SATURATION 74 % (94-100); ABG PO2 46 MMHG (79-93); ABG TCO2 40.2 MMOL/L (21.0-31.0)
[2019-08-07 06:31] LABS: ABG PCO2 91 MMHG (35-45); ABG PH 7.23 (7.37-7.43)
[2019-08-07 06:32] LABS: ALLENS TEST YES-POS; INSPIRED O2 100%; VENTILATOR YES
[2019-08-07 06:39] LABS: BACTERIA,URINE MODERATE /HPF; HYALINE CASTS, URINE 0-2 /LPF; URIC ACID CRYSTALS,URINE LARGE /LPF; WBC,URINE 0-2 /HPF
[2019-08-07] MEDS: RT-ADVAIR HFA 115/21 MCG PER PUFF IH SCH (06:47)
[2019-08-07] MEDS: RT-ALBUTEROL/IPRATROPIUM 3 ML (DUONEB) VIAL INH SCH ×2 (06:47→10:58)
[2019-08-07] MEDS ORDERED: NS 100 ML (IVPB) BAG IV ONE (07:15)
[2019-08-07] MEDS ORDERED: HOLD METFORMIN - RECEIVED CONTRAST 20 ML VIAL IV SCH (07:15)
[2019-08-07] MEDS ORDERED: IOHEXOL 350 MG/ML 100 ML (OMNIPAQUE 350) VIAL IV ONE (07:15)
[2019-08-07] MEDS ORDERED: CATHETER FLUSH 10 ML SYR IV PRN (07:15)
--- NOTE | 2019-08-07 07:38 | Progress Note ---
Subjective Time Seen by a Provider: 07:36 Subjective/Events-last exam patient unsuccessfully extubated yesterday. Patient on vent this morning . Patient candidate for trach Objective Exam Vital Signs Date Time Temp Pulse Resp B/P (MAP) Pulse Ox O2 Delivery O2 Flow Rate FiO2 08/07/19 07:00 Mechanical Ventilator 80.00 08/07/19 06:58 Mechanical Ventilator 08/07/19 06:47 57 17 99 100 08/07/19 06:16 Mechanical Ventilator 08/07/19 06:00 56 18 100/45 (63) 99 Mechanical Ventilator 100.00 08/07/19 05:00 61 18 100/45 (63) 99 Mechanical Ventilator 100.00 08/07/19 04:30 Mechanical Ventilator 100.00 08/07/19 04:23 Mechanical Ventilator 100.00 08/07/19 04:20 63 18 97 100 08/07/19 04:00 Vapotherm 40.00 70 08/07/19 04:00 77 17 170/72 (104) 95 Vapotherm 40.00 70.00 08/07/19 03:40 36.7 Vapotherm 40.00 70.00 08/07/19 03:11 93 Vapotherm 30.00 65 08/07/19 03:00 73 24 164/63 (96) 94 Vapotherm 30.00 70.00 08/07/19 02:00 78 27 161/68 (99) 94 Vapotherm 30.00 70.00 08/07/19 01:46 Vapotherm 30.00 65.00 08/07/19 01:00 79 08/07/19 01:00 77 23 162/76 (104) 95 Vapotherm 30.00 70.00 08/07/19 00:00 77 24 149/57 (87) 94 Vapotherm 30.00 70.00 08/07/19 00:00 Vapotherm 30.00 70 08/06/19 23:30 Vapotherm 30.00 70.00 08/06/19 23:30 36.7 Vapotherm 30.00 70.00 08/06/19 23:25 92 Vapotherm 30.00 70 08/06/19 23:00 78 25 155/70 (98) 94 Vapotherm 40.00 60.00 08/06/19 22:00 75 17 156/68 (97) 95 Vapotherm 40.00 60.00 08/06/19 21:43 36.6 Vapotherm 40.00 60.00 08/06/19 21:42 36.6 76 20 148/58 94 Vapotherm 40.00 60 08/06/19 21:00 77 22 148/58 (88) 92 Vapotherm 40.00 60.00 08/06/19 20:21 36.4 08/06/19 20:00 75 23 149/61 (90) 93 Vapotherm 40.00 60.00 08/06/19 20:00 Vapotherm 40.00 60 08/06/19 19:00 Vapotherm 40.00 60.00 08/06/19 19:00 84 29 151/73 (99) 93 Vapotherm 40.00 60.00 08/06/19 19:00 84 08/06/19 18:53 37.0 83 24 151/73 94 Vapotherm 60 08/06/19 18:52 94 Vapotherm 40.00 60 08/06/19 18:29 37.6 86 22 165/67 9 Vapotherm 60 08/06/19 18:05 37.4 80 20 169/68 Vapotherm 60 08/06/19 18:00 94 27 172/58 (96) 90 Vapotherm 20.00 50.00 08/06/19 17:00 81 41 140/52 (81) 91 Vapotherm 20.00 50.00 08/06/19 16:12 37.2 79 20 135/56 92 Vapotherm 50 08/06/19 16:00 92 Vapotherm 50 08/06/19 16:00 80 28 135/44 (74) 91 Vapotherm 20.00 50.00 08/06/19 15:46 37.4 82 22 132/55 Vapotherm 50 08/06/19 15:43 37.0 08/06/19 15:00 82 25 126/44 (71) 92 Vapotherm 20.00 50.00 08/06/19 14:45 Vapotherm 20.00 50.00 08/06/19 14:43 91 Vapotherm 20.00 50 08/06/19 14:00 73 29 128/48 (74) 92 Vapotherm 25.00 30.00 08/06/19 13:00 70 23 116/97 (103) 90 Vapotherm 25.00 30.00 08/06/19 13:00 73 08/06/19 12:26 36.7 08/06/19 12:00 63 29 109/39 (62) 92 Vapotherm 25.00 30.00 08/06/19 12:00 94 Vapotherm 50 08/06/19 11:00 64 35 115/49 (71) 100 Vapotherm 25.00 30.00 08/06/19 10:52 Vapotherm 25.00 30.00 08/06/19 10:45 100 Vapotherm 25.00 30 08/06/19 10:00 65 29 133/54 (80) 95 Mechanical Ventilator 30.00 08/06/19 09:35 25 08/06/19 09:00 59 31 118/47 (70) 93 Mechanical Ventilator 30.00 08/06/19 08:00 59 25 109/43 (65) 96 Mechanical Ventilator 30.00 08/06/19 08:00 Mechanical Ventilator 30 08/06/19 07:37 62 22 94 25 I & O 08/07/19 07:00 Intake Total 1740 ml Output Total 3825 ml Balance -2085 ml Capillary Refill : Less Than 3 Seconds General Appearance: No Apparent Distress, WD/WN Neck: Normal Inspection Respiratory: No Accessory Muscle Use, No Respiratory Distress, Decreased Breath Sounds Cardiovascular: Regular Rate, Rhythm, No Murmur Gastrointestinal: non tender, soft Results Lab Laboratory Tests 08/07/19 00:17 08/07/19 03:40 Laboratory Tests 08/06/19 08:12: Troponin I 0.082H 08/06/19 10:13: Blood Gas Puncture Site LR, Blood Gas Patient Temperature 36.1, Arterial Blood pH 7.42, Arterial Blood Partial Pressure CO2 55H, Arterial Blood Partial Pressure O2 43L, Arterial Blood HCO3 35H, Arterial Blood Total CO2 37.1H, Arterial Blood Oxygen Saturation 80L, Arterial Blood Base Excess 10.3H, Neil Test YES-POS, Blood Gas Ventilator Setting YES, Blood Gas Inspired Oxygen 30% 08/06/19 11:49: Glucometer 88 08/06/19 18:26: Glucometer 84 08/07/19 00:14: Glucometer 101 08/07/19 00:17: Hemoglobin 10.2#L, Hematocrit 34L 08/07/19 03:40: Hemoglobin 10.7L, Hematocrit 35L, White Blood Count 15.5H, Red Blood Count 3.73L , Mean Corpuscular Volume 94, Mean Corpuscular Hemoglobin 29, Mean Corpuscular Hemoglobin Concent 30L, Red Cell Distribution Width 17.7H, Platelet Count 135, Mean Platelet Volume 9.8, Neutrophils (%) (Auto) 88H, Lymphocytes (%) (Auto) 4L, Monocytes (%) (Auto) 8, Eosinophils (%) (Auto) 0, Basophils (%) (Auto) 0, Neutrophils # (Auto) 13.7H, Lymphocytes # (Auto) 0.6L, Monocytes # (Auto) 1.2H, Eosinophils # (Auto) 0.0, Basophils # (Auto) 0.0, Neutrophils % (Manual) 83, Lymphocytes % (Manual) 3, Monocytes % (Manual) 11, Band Neutrophils 3, Stom atocytes SLIGHT, Blood Morphology Comment NORMAL, Sodium Level 147H, Potassium Level 4.7, Chloride Level 101, Carbon Dioxide Level 31, Anion Gap 15H, Blood Urea Nitrogen 31H, Creatinine 1.38H, Estimat Glomerular Filtration Rate 52, BUN/Creatinine Ratio 22, Glucose Level 101, Calcium Level 9.5, Corrected Calcium 10.0, Phosphorus Level 6.2H, Magnesium Level 2.0, Total Bilirubin 0.5, Aspartate Amino Transf (AST/SGOT) 20, Alanine Aminotransferase (ALT/SGPT) 14, Alkaline Phosphatase 102, Total Protein 6.9, Albumin 3.4, Triglycerides Level 241H 08/07/19 03:48: Blood Gas Puncture Site RIGHT RADIAL, Blood Gas Patient Temperature 36.7, Arterial Blood pH 7.21*L, Arterial Blood Partial Pressure CO2 95*H, Arterial Blood Partial Pressure O2 92, Arterial Blood HCO3 37H, Arterial Blood Total CO2 39.8H, Arterial Blood Oxygen Saturation 96, Arterial Blood Base Excess 9.0H, Neil Test YES-POS, Blood Gas Ventilator Setting NO, Blood Gas Inspired Oxygen 70% 08/07/19 05:30: Urine Color YELLOW, Urine Clarity CLEAR, Urine pH 5.0, Urine Specific [place] >= 1.030, Urine Protein 3+H, Urine Glucose (UA) NEGATIVE, Urine Ketones NEGATIVE, Urine Nitrite NEGATIVE, Urine Bilirubin NEGATIVE, Urine Urobilinogen 0.2, Urine Leukocyte Esterase NEGATIVE, Urine RBC (Auto) 1+H, Urine RBC 2-5H, Urine WBC 0- 2, Urine Squamous Epithelial Cells 2-5, Urine Crystals PRESENTH, Urine Uric Acid Crystals LARGEH, Urine Bacteria MODERATEH, Urine Casts PRESENT, Urine Hyaline Casts 0-2H, Urine Mucus MODERATEH, Urine Culture Indicated YES 08/07/19 06:24: Blood Gas Puncture Site RIGHT RADIAL, Blood Gas Patient Temperature 36.0, Arterial Blood pH 7.23*L, Arterial Blood Partial Pressure CO2 91*H, Arterial Blood Partial Pressure O2 46L, Arterial Blood HCO3 37H, Arterial Blood Total CO2 40.2H, Arterial Blood Oxygen Saturation 74L, Arterial Blood Base Excess 9.6H, Neil Test YES-POS, Blood Gas Ventilator Setting YES, Blood Gas Inspired Oxygen 100% Microbiology 08/03/19 Blood Culture - Preliminary, Resulted No growth 08/05/19 Mycobacterial Culture - Preliminary, Resulted Assessment/Plan Assessment/Plan Assess & Plan/Chief Complaint Acute and chronic respiratory failure with hypoxia and hypercapnia. Renal insufficiency. CO2 narcosis. COPD with acute exacerbation. Pneumonia. Elevated troponin. Altered mental status. Proximal atrial fibrillation. Hypertension. Non-STEMI. . 08/06/19. Chest pain. Acute and chronic respiratory failure with hypoxia and hypercapnia. Renal insufficiency. CO2 narcosis. Pneumonia. Elevated troponin. Altered mental status. Paroxysmal atrial fibrillation. Hypertension. None STEMI. 08/07/19. Acute and chronic respiratory failure with hypoxia and hypercapnia. Renal insufficiency. CO2 narcosis. Hypertension. Patient back on ventilator. Unsuccessful extubation Clinical Quality Measures DVT/VTE Risk/Contraindication: Risk Factor Score Per Nursin RFS Level Per Nursing on Admit: 4+=Very High DANITA TEE DO Aug 07, 2019 07:38 POS
[2019-08-07] MEDS ORDERED: fentaNYL INJECTION 100 MCG/2 ML AMP INJ ONE (07:42)
[2019-08-07] MEDS ORDERED: MIDAZOLAM 5 MG/5 ML (VERSED) VIAL IJ ONE (07:42)
--- NOTE | 2019-08-07 08:53 | Diagnostic Imaging Report ---
INDICATION: Dyspnea. TECHNIQUE: Single view chest 3:26 AM. CORRELATION STUDY: 08/06/2019 FINDINGS: Heart size remains enlarged. The pulmonary vascular congestion and edema has increased from previous study. Scattered pulmonary parenchymal densities are noted likely largely edema. More focal consolidated appearance may reflect edema versus infiltrate and/or effusion at the right lung base. IMPRESSION: 1. Worsening features of congestive heart failure. 2. Superimposed infiltrate and/or edema throughout both lung triana greatest on the right. Bilateral pleural effusions, right greater than left. Dictated by: Dictated on workstation # [id number]
[2019-08-07] MEDS ORDERED: PANTOPRAZOLE 40 MG (PROTONIX) VIAL IV SCH (09:00)
[2019-08-07] MEDS ORDERED: ANIDULAFUNGIN INJECTION 100 MG in NS (IVPB) 100 ML IV SCH (09:00)
[2019-08-07] MEDS ORDERED: LEVOFLOXACIN 750 MG/150 ML IV 150 ML IV SCH (09:00)
--- NOTE | 2019-08-07 09:20 | Occ Therapy Progress Note ---
Therapy Progress Note OT talked with nursing who stated pt on hold today, he had just returned from a scan and he is currently sedated and on the ventilator. OT will continue to monitor pt and assess when he is more medically stable. 1, visit 09:10 TATYANA LEWIS OT Aug 07, 2019 09:19 POS
--- NOTE | 2019-08-07 09:25 | Diagnostic Imaging Report ---
PROCEDURE: CT angiography of the chest with contrast. TECHNIQUE: Multiple contiguous axial images were obtained through the chest after uneventful bolus administration of intravenous contrast. 3D reconstructed CTA MIP acquisitions were also performed. Auto Exposure Controls were utilized during the CT exam to meet ALARA standards for radiation dose reduction. INDICATION: Respiratory distress. COMPARISON: Correlation is made with prior CT angiogram of the chest performed on 07/15/2019. FINDINGS: The patient is intubated. The endotracheal tube has a tip well above the balwinder. The nasogastric tube passes into the stomach. The heart remains enlarged. No pericardial effusion is identified. The pulmonary arteries are dilated suggestive of a pulmonary arterial hypertension. No definite filling defects to suggest thromboemboli are seen. The thoracic aorta is normal in caliber. No dissection is identified. There are bilateral pleural effusions. The pleural fluid on the left is new since prior CT. This is small. The pleural fluid on the right is partially loculated along the right chest wall. This is similar to perhaps slightly increased when compared with prior CT. The degree of parenchymal consolidation involving the right lung has increased since prior CT. In particular, there is complete opacification and consolidation of the right upper lobe. There is some aeration in the right middle lobe. Significant consolidation involving the right lower lobe is noted. There is also some airspace infiltrates involving the lingula. This is new. Mild consolidation in the posterior left lower lobe is noted. The upper abdomen demonstrate some cortical low densities involving the right kidney, too small to characterize but likely cysts. Some similar smaller cortical lesion in left kidney is also noted. IMPRESSION: 1. No evidence of pulmonary embolism or thoracic aortic dissection. There is significant dilatation to the pulmonary arterial system consistent with pulmonary arterial hypertension. 2. Bilateral pleural effusions, new on the left when compared with prior CT from 07/15/2019. There is worsening bilateral regions of parenchymal consolidation when compared with prior exam. In particular, right lung demonstrates significant right upper and right lower lobe consolidation with only a small amount of aeration involving the right middle lobe. Dictated by: Dictated on workstation # [id number]
[2019-08-07 09:29] LABS: ABG BASE EXCESS 9.2 MMOL/L (-2.5-2.5); ABG OXYGEN SATURATION 95 % (94-100); ABG PO2 79 MMHG (79-93); ABG TCO2 38.9 MMOL/L (21.0-31.0)
[2019-08-07] MEDS: DEXMEDETOMIDINE 1,000 MCG/NS 250 ML IV SCH ×2 (09:29)
[2019-08-07 09:30] LABS: ABG PH 7.27 (7.37-7.43); ALLENS TEST POSITIVE
[2019-08-07 09:31] LABS: ABG PCO2 81 MMHG (35-45); INSPIRED O2 60%; PATIENT TEMP 36.1; VENTILATOR YES
[2019-08-07] MEDS: ENOXAPARIN 40 MG/0.4 ML (LOVENOX) SYR SQ SCH (09:31)
[2019-08-07] MEDS: DOCUSATE SODIUM 100 MG (COLACE) CAP PO SCH (09:31)
--- NOTE | 2019-08-07 09:44 | Physical Therapy Progress Note ---
Therapy Progress Note Per RN pt is currently intubated and sedated. Will hold therapy at this time and continue to monitor pt until pt is appropriate for therapy. DENIZ CHAMPAGNE PT Aug 07, 2019 09:44 POS
--- NOTE | 2019-08-07 10:46 | Pulmonary Progress Note ---
Standard Progress Note Progress Notes Date Seen by Provider: Aug 07, 2019 Time Seen by Provider: 10:[address] of chest I believe pt needs thoracic surgery for decortication and pleurodesis. Pt does have hx of recurrent right pleural effusion. Last thoracentesis was 07/17/18. He has been on Bumex until today which has not seemed to help with pleural effusion accumulation. CT shows increasing pulmonary infiltrate and worsening leukocytosis. Pt has worsening respiratory failure. I called daughter who states she prefers patient to go to [facility]. I called and discussed with [facility] and they are working on acceptance. Assessment & Plan Acute on chronic respiratory failure -Pt extubated yesterday. Was doing well however has decompensated through the night. He currently has increased respiratory accessory muscle use. ABG shows acute respiratory acidosis. Will proceed with reintubation. -Pt already has a vent to mask at home Pseudomonas PNA - present on admission-- with empyema -Will transfer to for thoracic surgery. -Will d/w Dr. [place]. -Worsening respiratory status and elevated WBC -Change abx to Levaquin and Merrem. Has been on Zosyn x 5 days Pleural effusion - hx of thoracentesis -Cytology has been negative. Anemia -Pt received 2 units of PRBC per cardiology yesterday -Please hold on further transfusion unless Hb is < 7 secondary to respi ratory status. -Will increase Protonix to Q12 IV Stage II diastolic failure -Bumex-- hold secondary to expected hypotension from intubation -Continue to monitor Hx of hemoptysis s/p Bronchoscopy on 07/03/19 - Repeat bronch 08/06/19 - no signs of active bleed - No current signs of hemoptysis COPDAE with hx of severe COPD oxygen dependent -SVNS -Solumedrol Group III pulmonary HTN Morbid obesity with OHS and TERE - Diastolic heart disfunction Acute on chronic renal failure NSTEMI PAfib/SSS -Cardiology following Marijuanna use Recent GIB requiring transfusions s/p recent scopes -OAC with Eliquis - holding due to recurrent GI bleeds Mild to moderate CAD on coronary angiography in 2010 Multiple hospitalizations Critical Care: Critically Ill Patient Time spent with patient (mins): 60 JHON STEPHENSON DO Aug 07, 2019 10:46 POS
[2019-08-07 11:32] LABS: ABG OXYGEN SATURATION 97 % (94-100); ABG PCO2 67 MMHG (35-45); ABG PO2 78 MMHG (79-93); ABG TCO2 36.2 MMOL/L (21.0-31.0)
[2019-08-07 11:33] LABS: ABG PH 7.32 (7.37-7.43); ALLENS TEST POSITIVE; INSPIRED O2 50%; PATIENT TEMP 36.2; VENTILATOR YES
--- NOTE | 2019-08-07 15:20 | NUR ---
THIS NURSE CALLED REPORT TO YA ARAIZA AT [facility] AT [phone]. THIS NURSE ANSWERED QUESTIONS AND GAVE NURSE PHONE NUMBER. FAMILY WAS NOTIFIED AT 1520 THAT PT WAS ON THERE WAY TO [facility].
--- NOTE | 2019-08-07 15:45 | Progress Note - Cardiology ---
Cardiology SOAP Progress Note Subjective: On [facility] vent, sedated, unable to provide history. Failed extubation yesterday and has been back on the vent Objective: I&O/Vital Signs 08/07/19 08/07/19 08/07/19 08/07/19 04:00 04:00 04:20 04:23 Pulse 77 63 Resp 17 18 B/P (MAP) 170/72 (104) Pulse Ox 95 97 O2 Delivery Vapotherm Vapotherm Mechanical Ventilator O2 Flow Rate 40.00 40.00 100.00 70.00 FiO2 70 100 08/07/19 08/07/19 08/07/19 08/07/19 04:30 05:00 06:00 06:16 Pulse 61 56 Resp 18 18 B/P (MAP) 100/45 (63) 100/45 (63) Pulse Ox 99 99 O2 Delivery Mechanical Ventilator Mechanical Ventilator Mechanical Ventilator Mechanical Ventilator O2 Flow Rate 100.00 100.00 100.00 08/07/19 08/07/19 08/07/19 08/07/19 06:42 06:47 06:58 07:00 Pulse 56 57 54 Resp 17 20 B/P (MAP) 108/48 (68) Pulse Ox 99 99 O2 Delivery Mechanical Ventilator Mechanical Ventilator O2 Flow Rate 100.00 FiO2 100 08/07/19 08/07/19 08/07/19 08/07/19 07:00 08:00 08:00 09:00 Pulse 53 Resp 19 B/P (MAP) 111/48 (69) 141/64 (89) Pulse Ox 98 91 O2 Delivery Mechanical Ventilator Mechanical Ventilator Mechanical Ventilator Mechanical Ventilator O2 Flow Rate 80.00 100.00 100.00 FiO2 60 08/07/19 08/07/19 08/07/19 08/07/19 09:23 10:00 10:08 10:59 Pulse 61 57 Resp 22 24 B/P (MAP) 116/49 (71) 116/49 Pulse Ox 98 98 O2 Delivery Mechanical Ventilator Mechanical Ventilator O2 Flow Rate 60.00 60.00 FiO2 60 08/07/19 08/07/19 08/07/19 08/07/19 11:00 11:04 11:47 12:00 Pulse 56 60 Resp 24 23 B/P (MAP) 121/53 (75) 133/54 (80) Pulse Ox 97 93 O2 Delivery Mechanical Ventilator Mechanical Ventilator Mechanical Ventilator Mechanical Ventilator O2 Flow Rate 60.00 50.00 60.00 FiO2 50 08/07/19 08/07/19 08/07/19 08/07/19 12:00 12:34 13:00 13:00 Temp 36.4 Pulse 60 60 Resp 23 B/P (MAP) 159/76 128/51 (76) O2 Delivery Mechanical Ventilator O2 Flow Rate 60.00 08/07/19 08/07/19 14:00 15:00 Pulse 58 59 Resp 21 24 B/P (MAP) 128/57 (80) 126/54 (78) Pulse Ox 100 99 O2 Delivery Mechanical Ventilator Mechanical Ventilator O2 Flow Rate 50.00 50.00 08/07/19 00:00 Intake Total 500 ml Output Total 1650 ml Balance -1150 ml Weight (Pounds): 348 Weight (Ounces): 6.0 Weight (Calculated Kilograms): 158.961540 Constitutional: other (on mech vent) Respiratory: No accessory muscle use; other (fair to good air entry bilat, somewhat prolonged exp) Cardiovascular: regular rate-rhythm, systolic murmur (soft [place] at card base) Gastrointestional: No tender, No guarding; audible bowel sounds, other (OG tube in place with red secretions) Extremities: other (mild pitting and non-pitting edema); No clubbing, No cyanosis Neurologic/Psychiatric: other (he cannot cooperate with a neuro exam at this time) Skin: No rash on exposed areas, No ulcerations on exposed areas Results/Procedures: Labs Laboratory Tests 08/06/19 18:26: Glucometer 84 08/07/19 00:14: Glucometer 101 08/07/19 00:17: Hemoglobin 10.2#L, Hematocrit 34L 08/07/19 03:40: Hemoglobin 10.7L, Hematocrit 35L, White Blood Count 15.5H, Red Blood Count 3.73L , Mean Corpuscular Volume 94, Mean Corpuscular Hemoglobin 29, Mean Corpuscular Hemoglobin Concent 30L, Red Cell Distribution Width 17.7H, Platelet Count 135, Mean Platelet Volume 9.8, Neutrophils (%) (Auto) 88H, Lymphocytes (%) (Auto) 4L, Monocytes (%) (Auto) 8, Eosinophils (%) (Auto) 0, Basophils (%) (Auto) 0, Neutrophils # (Auto) 13.7H, Lymphocytes # (Auto) 0.6L, Monocytes # (Auto) 1.2H, Eosinophils # (Auto) 0.0, Basophils # (Auto) 0.0, Neutrophils % (Manual) 83, Lymphocytes % (Manual) 3, Monocytes % (Manual) 11, Band Neutrophils 3, Stomatocytes SLIGHT, Blood Morphology Comment NORMAL, Sodium Level 147H, Potassium Level 4.7, Chloride Level 101, Carbon Dioxide Level 31, Anion Gap 15H, Blood Urea Nitrogen 31H, Creatinine 1.38H, Estimat Glomerular Filtration Rate 52, BUN/Creatinine Ratio 22, Glucose Level 101, Calcium Level 9.5, Corrected Calcium 10.0, Phosphorus Level 6.2H, Magnesium Level 2.0, Total Bilirubin 0.5, Aspartate Amino Transf (AST/SGOT) 20, Alanine Aminotransferase (ALT/SGPT) 14, Alkaline Phosphatase 102, Total Protein 6.9, Albumin 3.4, Triglycerides Level 241H 08/07/19 03:48: Blood Gas Puncture Site RIGHT RADIAL, Blood Gas Patient Temperature 36.7, Ar terial Blood pH 7.21*L, Arterial Blood Partial Pressure CO2 95*H, Arterial Blood Partial Pressure O2 92, Arterial Blood HCO3 37H, Arterial Blood Total CO2 39.8H, Arterial Blood Oxygen Saturation 96, Arterial Blood Base Excess 9.0H, Neil Test YES-POS, Blood Gas Ventilator Setting NO, Blood Gas Inspired Oxygen 70% 08/07/19 05:30: Urine Color YELLOW, Urine Clarity CLEAR, Urine pH 5.0, Urine Specific [place] >=1.030, Urine Protein 3+H, Urine Glucose (UA) NEGATIVE, Urine Ketones NEGATIVE, Urine Nitrite NEGATIVE, Urine Bilirubin NEGATIVE, Urine Urobilinogen 0.2, Urine Leukocyte Esterase NEGATIVE, Urine RBC (Auto) 1+H, Urine RBC 2-5H, Urine WBC 0- 2, Urine Squamous Epithelial Cells 2-5, Urine Crystals PRESENTH, Urine Uric Acid Crystals LARGEH, Urine Bacteria MODERATEH, Urine Casts PRESENT, Urine Hyaline Casts 0-2H, Urine Mucus MODERATEH, Urine Culture Indicated YES 08/07/19 06:24: Blood Gas Puncture Site RIGHT RADIAL, Blood Gas Patient Temperature 36.0, Arterial Blood pH 7.23*L, Arterial Blood Partial Pressure CO2 91*H, Arterial Blood Partial Pressure O2 46L, Arterial Blood HCO3 37H, Arterial Blood Total CO2 40.2H, Arterial Blood Oxygen Saturation 74L, Arterial Blood Base Excess 9.6H, Neil Test YES-POS, Blood Gas Ventilator Setting YES, Blood Gas Inspired Oxygen 100% 08/07/19 09:25: Blood Gas Puncture Site RIGHT RADIAL, Blood Gas Patient Temperature 36.1, Arterial Blood pH 7.27*L, Arterial Blood Partial Pressure CO2 81*H, Arterial Blood Partial Pressure O2 79, Arterial Blood HCO3 36H, Arterial Blood Total CO2 38.9H, Arterial Blood Oxygen Saturation 95, Arterial Blood Base Excess 9.2H, Neil Test POSITIVE, Blood Gas Ventilator Setting YES, Blood Gas Inspired Oxygen 60% 08/07/19 11:26: Blood Gas Puncture Site RIGHT RADIAL, Blood Gas Patient Temperature 36.2, Arterial Blood pH 7.32*L, Arterial Blood Partial Pressure CO2 67H, Arterial Blood Partial Pressure O2 78L, Arterial Blood HCO3 34H, Arterial Blood Total CO2 36.2H, Arterial Blood Oxygen Saturation 97, Arterial Blood Base Excess 8.0H, Neil Test POSITIVE, Blood Gas Ventilator Setting YES, Blood Gas Inspired Oxygen 50% 08/07/19 11:29: Glucometer 117H Microbiology 08/03/19 Blood Culture - Preliminary, Resulted No growth 08/07/19 Gram Stain - Final, Resulted 08/07/19 Sputum Culture, Resulted Pending Laboratory Tests 08/06/19 03:25 08/07/19 00:17 08/07/19 03:40 A/P: Assessment: Acute, Type II Resp failure Recurrent GI bleeds leading to anemia requiring transfusions - scope per Dr. Gaytan on 06/28/19: Colon Polyps Internal hemorrhoids; Gastritis ; Hiatal hernia. Endoscopy of Jul 11, 2019 at [facility] showed sigmoid and ascending colon ulcer, nonbleeding (per D/C summary by Dr. Stack). Worsening of anemia on lab work of 08/06/19 for which he received blood transfusions Multifactorial shortness of breath: ac exac of COPD, severe anemia, obesity- hypoventilation, ac on ch diastolic CHF SSS. H/o PAF, currently asymptomatic sinus mateo Chronic HFpEF Echo of 08/05/19 showed LVEF 65-70%, mild to mod conc LVH, grade 2 gastelum dysfunction of LV, biatrial enlargement, mild to mod AI and TR, PASP 50 mmHg Hemoptysis during hospitalization of Jun 2019, [place], [place] [facility] [place] on 07/03/19 did not indicate any active bleed or i nflammation. Bronch on 08-05-19 with copious mucous plugging. COPD with several episodes of acute exacerbations in the recent past OAC with Eliquis - holding due to recurrent GI bleeds HTN - by history Mild to moderate CAD on coronary angiography in 2010 Obesity with obesity-hypoventilation, TERE, and pulm hypertension. PASP was 60-65 mmHg on echo of 2015; 45-50 mmHg on echo of 01/04/19 Marijuana use (urine test positive in January 2019) Chronic narcotic use d/t chronic back and joint pain Plan: * Complex management due to multiple comorbidities that are outlined above * Not suitable for full anticoag due reasons noted above * Monitor and correct labs * Continue current regimen PATSY SERVIN MD FACP FAC CCDS Aug 07, 2019 15:45 POS
[2019-08-07] MEDS ORDERED: DOCUSATE SODIUM 10 MG/ML 10 ML UDC (COLACE) PO SCH (21:00)
--- NOTE | 2019-08-08 07:18 | Discharge Summary ---
Diagnosis/Chief Complaint Date of Admission Aug 03, 2019 at 16:07 Date of Discharge Aug 07, 2019 at 15:20 Discharge Time: 07:15 Discharge Diagnosis Acute and chronic respiratory failure. Respiratory acidosis. Pseudomonas pneumonia. Empyema. Anemia. COPD with acute exacerbation. Pulmonary hypertension. Acute and chronic renal failure. Elevated troponin. Coronary artery disease Discharge Summary Procedures Bronchoscopy. Ventilator. Consultations Cardiology. Pulmonology. Discharge Physical Examination Allergies: Coded Allergies: cephalexin (Verified Adverse Reaction, Unknown, unknown- tolerated Rocephin with no issue 06/2019, 06/29/19) Vitals & I&Os Vital Signs Date Time Temp Pulse Resp B/P (MAP) Pulse Ox O2 Delivery O2 Flow Rate FiO2 08/07/19 15:20 36.4 59 24 126/54 99 Mechanical Ventilator 50 08/07/19 15:00 50.00 Hospital Course Patient transferred to [facility]. Patient on vent Labs (last 24 hrs) Laboratory Tests 08/03/19 14:01: Blood Gas Puncture Site RIGHT RADIAL, Blood Gas Patient Temperature 37.5, Arterial Blood pH 7.19*L, Arterial Blood Partial Pressure CO2 108*H, Arterial Blood Partial Pressure O2 146H, Arterial Blood HCO3 39H, Arterial Blood Total CO2 42.5H, Arterial Blood Oxygen Saturation 99, Arterial Blood Base Excess 11.1H , Neil Test POSITIVE, Blood Gas Ventilator Setting NO, Blood Gas Inspired Oxygen 50% BIPAP 08/03/19 14:05: White Blood Count 12.3H, Red Blood Count 3.40L, Hemoglobin 9.7L, Hematocrit 33L, Mean Corpuscular Volume 98, Mean Corpuscular Hemoglobin 29, Mean Corpuscular Hemoglobin Concent 29L, Red Cell Distribution Width 17.3H, Platelet Count 183, Mean Platelet Volume 10.4, Neutrophils (%) (Auto) 90H, Lymphocytes (%) (Auto) 4L , Monocytes (%) (Auto) 6, Eosinophils (%) (Auto) 0, Basophils (%) (Auto) 0, Neutrophils # (Auto) 11.1H, Lymphocytes # (Auto) 0.5L, Monocytes # (Auto) 0.7, Eosinophils # (Auto) 0.0, Basophils # (Auto) 0.0, Neutrophils % (Manual) 87, Lymphocytes % (Manual) 7, Monocytes % (Manual) 4, Band Neutrophils 2, Basophilic Stippling SLIGHT, Anisocytosis SLIGHT, Sodium Level 142, Potassium Level 5.8H, Chloride Level 99, Carbon Dioxide Level 35H, Anion Gap 8, Blood Urea Nitrogen 52H, Creatinine 1.69H, Estimat Glomerular Filtration Rate 41, BUN/Creatinine Ratio 31, Glucose Level 159H, Lactic Acid Level 0.68, Calcium Level 9.1, Corrected Calcium 9.3, Total Bilirubin 0.2, Aspartate Amino Transf (AST/SGOT) 15, Alanine Aminotransferase (ALT/SGPT) 23, Alkaline Phosphatase 84, Troponin I 0.042H, B-Type Natriuretic Peptide 668.7H, Total Protein 6.7, Albumin 3.7, Triglycerides Level 86, Procalcitonin 0.43H 08/03/19 15:05: Blood Gas Puncture Site RIGHT RADIAL, Blood Gas Patient Temperature 36.7, Arterial Blood pH 7.29*L, Arterial Blood Partial Pressure CO2 81*H, Arterial Blood Partial Pressure O2 79, Arterial Blood HCO3 38H, Arterial Blood Total CO2 40.5H, Arterial Blood Oxygen Saturation 97, Arterial Blood Base Excess 11.2H, Neil Test POSITIVE, Blood Gas Ventilator Setting NO, Blood Gas Inspired Oxygen N/A 08/03/19 20:40: Blood Gas Puncture Site RIGHT RADIAL, Blood Gas Patient Temperature 36.2, Art erial Blood pH 7.46H, Arterial Blood Partial Pressure CO2 52H, Arterial Blood Partial Pressure O2 89, Arterial Blood HCO3 37H, Arterial Blood Total CO2 38.6H, Arterial Blood Oxygen Saturation 99, Arterial Blood Base Excess 12.2H, Neil Test YES-POS, Blood Gas Ventilator Setting YES, Blood Gas Inspired Oxygen 50% 08/03/19 22:36: Troponin I 0.038H 08/04/19 00:18: Glucometer 71 08/04/19 03:40: Blood Gas Puncture Site NOT INDICATED, Blood Gas Patient Temperature 36.6, Arterial Blood pH 7.46H, Arterial Blood Partial Pressure CO2 52H, Arterial Blood Partial Pressure O2 68L, Arterial Blood HCO3 37H, Arterial Blood Total CO2 38.2H , Arterial Blood Oxygen Saturation 94, Arterial Blood Base Excess 12.0H, Neil Test NA, Blood Gas Ventilator Setting YES, Blood Gas Inspired Oxygen 40% 08/04/19 04:10: Troponin I 0.041H, White Blood Count 8.4, Red Blood Count 3.00L, Hemoglobin 8.5L , Hematocrit 28L, Mean Corpuscular Volume 94, Mean Corpuscular Hemoglobin 28, Mean Corpuscular Hemoglobin Concent 30L, Red Cell Distribution Width 17.6H, Platelet Count 134, Mean Platelet Volume 10.7H, Neutrophils (%) (Auto) 73, Lymphocytes (%) (Auto) 17, Monocytes (%) (Auto) 10, Eosinophils (%) (Auto) 1, Basophils (%) (Auto) 0, Neutrophils # (Auto) 6.1, Lymphocytes # (Auto) 1.4, Monocytes # (Auto) 0.8, Eosinophils # (Auto) 0.1, Basophils # (Auto) 0.0, Sodium Level 142, Potassium Level 5.1H, Chloride Level 101, Carbon Dioxide Level 30, Anion Gap 11, Blood Urea Nitrogen 53H, Creatinine 1.55H, Estimat Glomerular Filtration Rate 45, BUN/Creatinine Ratio 34, Glucose Level 83, Calcium Level 8.7, Phosphorus Level 2.5, Magnesium Level 1.9, B-Type Natriuretic Peptide 352.8H 08/04/19 11:44: Glucometer 106 08/04/19 18:06: Glucometer 88 08/05/19 00:08: Glucometer 79 08/05/19 03:15: White Blood Count 8.6, Red Blood Count 3.15L, Hemoglobin 8.9L, Hematocrit 29L, Mean Corpuscular Volume 93, Mean Corpuscular Hemoglobin 28, Mean Corpuscular Hemoglobin Concent 30L, Red Cell Distribution Width 17.8H, Platelet Count 143, Mean Platelet Volume 9.2, Neutrophils (%) (Auto) 74, Lymphocytes (%) (Auto) 14, Monocytes (%) (Auto) 11, Eosinophils (%) (Auto) 2, Basophils (%) (Auto) 0, Neutrophils # (Auto) 6.3, Lymphocytes # (Auto) 1.2, Monocytes # (Auto) 0.9, Eosinophils # (Auto) 0.1, Basophils # (Auto) 0.0, Sodium Level 145, Potassium Level 4.8, Chloride Level 102, Carbon Dioxide Level 30, Anion Gap 13, Blood Urea Nitrogen 45H, Creatinine 1.45H, Estimat Glomerular Filtration Rate 49, BUN/Creatinine Ratio 31, Glucose Level 92, Calcium Level 8.7, Phosphorus Level 4.9H, Magnesium Level 1.9 08/05/19 04:05: Blood Gas Puncture Site LT RADIAL, Blood Gas Patient Temperature 36.2, Arterial Blood pH 7.36L, Arterial Blood Partial Pressure CO2 63H, Arterial Blood Partial Pressure O2 114H, Arterial Blood HCO3 35H, Arterial Blood Total CO2 36.9H, Arterial Blood Oxygen Saturation 99, Arterial Blood Base Excess 9.2H, Neil Test YES-POS, Blood Gas Ventilator Setting YES, Blood Gas Inspired Oxygen 30% 08/05/19 07:45: Triglycerides Level 180H, Vancomycin Level Trough 23.3H 08/05/19 11:24: Glucometer 125H 08/05/19 18:08: Glucometer 83 08/06/19 00:21: Glucometer 74 08/06/19 03:25: White Blood Count 7.3, Red Blood Count 2.82L, Hemoglobin 8.0L, Hematocrit 27L, Mean Corpuscular Volume 94, Mean Corpuscular Hemoglobin 28, Mean Corpuscular Hemoglobin Concent 30L, Red Cell Distribution Width 18.1H, Platelet Count 119L, Mean Platelet Volume 9.5, Neutrophils (%) (Auto) 72, Lymphocytes (%) (Auto) 15, Monocytes (%) (Auto) 12, Eosinophils (%) (Auto) 2, Basophils (%) (Auto) 0, Neutrophils # (Auto) 5.2, Lymphocytes # (Auto) 1.1, Monocytes # (Auto) 0.9, Eosinophils # (Auto) 0.1, Basophils # (Auto) 0.0, Sodium Level 145, Potassium Level 4.3, Chloride Level 101, Carbon Dioxide Level 33H, Anion Gap 11, Blood Urea Nitrogen 32H, Creatinine 1.30, Estimat Glomerular Filtration Rate 56, BUN/Creatinine Ratio 25, Glucose Level 76, Calcium Level 8.4L, Phosphorus Level 4.0, Magnesium Level 1.8, B-Type Natriuretic Peptide 149.4H 08/06/19 03:36: Blood Gas Puncture Site RIGHT RADIAL, Blood Gas Patient Temperature 36.9, Arterial Blood pH 7.39, Arterial Blood Partial Pressure CO2 61H, Arterial Blood Partial Pressure O2 61L, Arterial Blood HCO3 36H, Arterial Blood Total CO2 38.3H , Arterial Blood Oxygen Saturation 88L, Arterial Blood Base Excess 11.1H, Neil Test YES-POS, Blood Gas Ventilator Setting YES, Blood Gas Inspired Oxygen 30% 08/06/19 08:12: Troponin I 0.082H 08/06/19 10:13: Blood Gas Puncture Site LR, Blood Gas Patient Temperature 36.1, Arterial Blood pH 7.42, Arterial Blood Partial Pressure CO2 55H, Arterial Blood Partial Pressure O2 43L, Arterial Blood HCO3 35H, Arterial Blood Total CO2 37.1H, Arterial Blood Oxygen Saturation 80L, Arterial Blood Base Excess 10.3H, Neil Test YES-POS, Blood Gas Ventilator Setting YES, Blood Gas Inspired Oxygen 30% 08/06/19 11:49: Glucometer 88 08/06/19 18:26: Glucometer 84 08/07/19 00:14: Glucometer 101 08/07/19 00:17: Hemoglobin 10.2#L, Hematocrit 34L 08/07/19 03:40: Hemoglobin 10.7L, Hematocrit 35L, White Blood Count 15.5H, Red Blood Count 3.73L , Mean Corpuscular Volume 94, Mean Corpuscular Hemoglobin 29, Mean Corpuscular Hemoglobin Concent 30L, Red Cell Distribution Width 17.7H, Platelet Count 135, Mean Platelet Volume 9.8, Neutrophils (%) (Auto) 88H, Lymphocytes (%) (Auto) 4L, Monocytes (%) (Auto) 8, Eosinophils (%) (Auto) 0, Basophils (%) (Auto) 0, Neutrophils # (Auto) 13.7H, Lymphocytes # (Auto) 0.6L, Monocytes # (Auto) 1.2H, Eosinophils # (Auto) 0.0, Basophils # (Auto) 0.0, Neutrophils % (Manual) 83, Lymphocytes % (Manual) 3, Monocytes % (Manual) 11, Band Neutrophils 3, Stomatocytes SLIGHT, Blood Morphology Comment NORMAL, Sodium Level 147H, Potassium Level 4.7, Chloride Level 101, Carbon Dioxide Level 31, Anion Gap 15H, Blood Urea Nitrogen 31H, Creatinine 1.38H, Estimat Glomerular Filtration Rate 52, BUN/Creatinine Ratio 22, Glucose Level 101, Calcium Level 9.5, Corrected Calcium 10.0, Phosphorus Level 6.2H, Magnesium Level 2.0, Total Bilirubin 0.5, Aspartate Amino Transf (AST/SGOT) 20, Alanine Aminotransferase (ALT/SGPT) 14, Alkaline Phosphatase 102, Total Protein 6.9, Albumin 3.4, Triglycerides Level 241H 08/07/19 03:48: Blood Gas Puncture Site RIGHT RADIAL, Blood Gas Patient Temperature 36.7, Arterial Blood pH 7.21*L, Arterial Blood Partial Pressure CO2 95*H, Arterial Blood Partial Pressure O2 92, Arterial Blood HCO3 37H, Arterial Blood Total CO2 39.8H, Arterial Blood Oxygen Saturation 96, Arterial Blood Base Excess 9.0H, Neil Test YES-POS, Blood Gas Ventilator Setting NO, Blood Gas Inspired Oxygen 70% 08/07/19 05:30: Urine Color YELLOW, Urine Clarity CLEAR, Urine pH 5.0, Urine Specific [place] >=1.030, Urine Protein 3+H, Urine Glucose (UA) NEGATIVE, Urine Ketones NEGATIVE, Urine Nitrite NEGATIVE, Urine Bilirubin NEGATIVE, Urine Urobilinogen 0.2, Urine Leukocyte Esterase NEGATIVE, Urine RBC (Auto) 1+H, Urine RBC 2-5H, Urine WBC 0- 2, Urine Squamous Epithelial Cells 2-5, Urine Crystals PRESENTH, Urine Uric Acid Crystals LARGEH, Urine Bacteria MODERATEH, Urine Casts PRESENT, Urine Hyaline Casts 0-2H, Urine Mucus MODERATEH, Urine Culture Indicated YES 08/07/19 06:24: Blood Gas Puncture Site RIGHT RADIAL, Blood Gas Patient Temperature 36.0, A rterial Blood pH 7.23*L, Arterial Blood Partial Pressure CO2 91*H, Arterial Blood Partial Pressure O2 46L, Arterial Blood HCO3 37H, Arterial Blood Total CO2 40.2H, Arterial Blood Oxygen Saturation 74L, Arterial Blood Base Excess 9.6H, Neil Test YES-POS, Blood Gas Ventilator Setting YES, Blood Gas Inspired Oxygen 100% 08/07/19 09:25: Blood Gas Puncture Site RIGHT RADIAL, Blood Gas Patient Temperature 36.1, Arterial Blood pH 7.27*L, Arterial Blood Partial Pressure CO2 81*H, Arterial Blood Partial Pressure O2 79, Arterial Blood HCO3 36H, Arterial Blood Total CO2 38.9H, Arterial Blood Oxygen Saturation 95, Arterial Blood Base Excess 9.2H, Neil Test POSITIVE, Blood Gas Ventilator Setting YES, Blood Gas Inspired Oxygen 60% 08/07/19 11:26: Blood Gas Puncture Site RIGHT RADIAL, Blood Gas Patient Temperature 36.2, Arterial Blood pH 7.32*L, Arterial Blood Partial Pressure CO2 67H, Arterial Blood Partial Pressure O2 78L, Arterial Blood HCO3 34H, Arterial Blood Total CO2 36.2H, Arterial Blood Oxygen Saturation 97, Arterial Blood Base Excess 8.0H, Neil Test POSITIVE, Blood Gas Ventilator Setting YES, Blood Gas Inspired Oxygen 50% 08/07/19 11:29: Glucometer 117H Microbiology 08/07/19 Blood Culture - Preliminary, Resulted No growth 08/07/19 Gram Stain - Final, Resulted 08/07/19 Sputum Culture, Resulted Pending Pending Labs Microbiology Date/Time Source Procedure Growth Status 08/07/19 05:05 Peripheral Arm, Right Blood Culture - Preliminary No growth Resulted 08/07/19 04:45 Peripheral Rt Ac Blood Culture - Preliminary No growth Resulted 08/07/19 04:40 [place], Nos Blood Culture - Preliminary No growth Resulted 08/03/19 15:10 Peripheral Peripheral, Nos Blood Culture - Preliminary No growth Resulted 08/03/19 14:05 Peripheral Lt Hand Blood Culture - Preliminary No growth Resulted 08/07/19 03:40 Sputum Induced Gram Stain - Final Resulted 08/07/19 03:40 Sputum Induced Sputum Culture Pending Resulted 08/05/19 07:00 Bronch Washings Bilateral Mycobacterial Culture - Preliminary Resulted 08/05/19 07:00 Bronch Washings Bilateral Gram Stain - Final Resulted 08/05/19 07:00 Bronchial Culture - Final YEAST Pseudomonas aeruginosa Enterobacter cloacae complex Resulted 08/05/19 07:00 Fungal Culture 1 - Preliminary YEAST Resulted 08/04/19 02:10 Sputum Induced Gram Stain - Final Complete 08/04/19 02:10 Sputum Culture - Final YEAST Pseudomonas aeruginosa Enterobacter cloacae complex Complete 08/03/19 17:19 Nasal MRSA Screen - Final MRSA not isolated Complete Laboratory Tests 08/03/19 14:01: Blood Gas Puncture Site RIGHT RADIAL, Blood Gas Patient Temperature 37.5, Arterial Blood pH 7.19, Arterial Blood Partial Pressure CO2 108, Arterial Blood Partial Pressure O2 146, Arterial Blood HCO3 39, Arterial Blood Total CO2 42.5, Arterial Blood Oxygen Saturation 99, Arterial Blood Base Excess 11.1, Neil Test POSITIVE, Blood Gas Ventilator Setting NO, Blood Gas Inspired Oxygen 50% BIPAP 08/03/19 14:05: White Blood Count 12.3, Red Blood Count 3.40, Hemoglobin 9.7, Hematocrit 33, Mean Corpuscular Volume 98, Mean Corpuscular Hemoglobin 29, Mean Corpuscular Hemoglobin Concent 29, Red Cell Distribution Width 17.3, Platelet Count 183, Mean Platelet Volume 10.4, Neutrophils (%) (Auto) 90, Lymphocytes (%) (Auto) 4, Monocytes (%) (Auto) 6, Eosinophils (%) (Auto) 0, Basophils (%) (Auto) 0, Ne utrophils # (Auto) 11.1, Lymphocytes # (Auto) 0.5, Monocytes # (Auto) 0.7, Eosinophils # (Auto) 0.0, Basophils # (Auto) 0.0, Neutrophils % (Manual) 87, Lymphocytes % (Manual) 7, Monocytes % (Manual) 4, Band Neutrophils 2, Basophilic Stippling SLIGHT, Anisocytosis SLIGHT, Sodium Level 142, Potassium Level 5.8, Chloride Level 99, Carbon Dioxide Level 35, Anion Gap 8, Blood Urea Nitrogen 52, Creatinine 1.69, Estimat Glomerular Filtration Rate 41, BUN/Creatinine Ratio 31, Glucose Level 159, Lactic Acid Level 0.68, Calcium Level 9.1, Corrected Calcium 9.3, Total Bilirubin 0.2, Aspartate Amino Transf (AST/SGOT) 15, Alanine Aminotransferase (ALT/SGPT) 23, Alkaline Phosphatase 84, Troponin I 0.042, B- Type Natriuretic Peptide 668.7, Total Protein 6.7, Albumin 3.7, Triglycerides Level 86, Procalcitonin 0.43 08/03/19 15:05: Blood Gas Puncture Site RIGHT RADIAL, Blood Gas Patient Temperature 36.7, Arterial Blood pH 7.29, Arterial Blood Partial Pressure CO2 81, Arterial Blood Partial Pressure O2 79, Arterial Blood HCO3 38, Arterial Blood Total CO2 40.5, Arterial Blood Oxygen Saturation 97, Arterial Blood Base Excess 11.2, Neil Test POSITIVE, Blood Gas Ventilator Setting NO, Blood Gas Inspired Oxygen N/A 08/03/19 20:40: Blood Gas Puncture Site RIGHT RADIAL, Blood Gas Patient Temperature 36.2, Arterial Blood pH 7.46, Arterial Blood Partial Pressure CO2 52, Arterial Blood Partial Pressure O2 89, Arterial Blood HCO3 37, Arterial Blood Total CO2 38.6, Arterial Blood Oxygen Saturation 99, Arterial Blood Base Excess 12.2, Neil Test YES-POS, Blood Gas Ventilator Setting YES, Blood Gas Inspired Oxygen 50% 08/03/19 22:36: Troponin I 0.038 08/04/19 00:18: Glucometer 71 08/04/19 03:40: Blood Gas Puncture Site NOT INDICATED, Blood Gas Patient Temperature 36.6, Arterial Blood pH 7.46, Arterial Blood Partial Pressure CO2 52, Arterial Blood Partial Pressure O2 68, Arterial Blood HCO3 37, Arterial Blood Total CO2 38.2, Arterial Blood Oxygen Saturation 94, Arterial Blood Base Excess 12.0, Neil Test NA, Blood Gas Ventilator Setting YES, Blood Gas Inspired Oxygen 40% 08/04/19 04:10: Troponin I 0.041, White Blood Count 8.4, Red Blood Count 3.00, Hemoglobin 8.5, Hematocrit 28, Mean Corpuscular Volume 94, Mean Corpuscular Hemoglobin 28, Mean Corpuscular Hemoglobin Concent 30, Red Cell Distribution Width 17.6, Platelet Count 134, Mean Platelet Volume 10.7, Neutrophils (%) (Auto) 73, Lymphocytes (%) (Auto) 17, Monocytes (%) (Auto) 10, Eosinophils (%) (Auto) 1, Basophils (%) (Auto) 0, Neutrophils # (Auto) 6.1, Lymphocytes # (Auto) 1.4, Monocytes # (Auto) 0.8, Eosinophils # (Auto) 0.1, Basophils # (Auto) 0.0, Sodium Level 142, Potassium Level 5.1, Chloride Level 101, Carbon Dioxide Level 30, Anion Gap 11, Blood Urea Nitrogen 53, Creatinine 1.55, Estimat Glomerular Filtration Rate 45, BUN/Creatinine Ratio 34, Glucose Level 83, Calcium Level 8.7, Phosphorus Level 2.5, Magnesium Level 1.9, B-Type Natriuretic Peptide 352.8 08/04/19 11:44: Glucometer 106 08/04/19 18:06: Glucometer 88 08/05/19 00:08: Glucometer 79 08/05/19 03:15: White Blood Count 8.6, Red Blood Count 3.15, Hemoglobin 8.9, Hematocrit 29, Mean Corpuscular Volume 93, Mean Corpuscular Hemoglobin 28, Mean Corpuscular Hemoglobin Concent 30, Red Cell Distribution Width 17.8, Platelet Count 143, Mean Platelet Volume 9.2, Neutrophils (%) (Auto) 74, Lymphocytes (%) (Auto) 14, Monocytes (%) (Auto) 11, Eosinophils (%) (Auto) 2, Basophils (%) (Auto) 0, Neutrophils # (Auto) 6.3, Lymphocytes # (Auto) 1.2, Monocytes # (Auto) 0.9, Eosinophils # (Auto) 0.1, Basophils # (Auto) 0.0, Sodium Level 145, Potassium Level 4.8, Chloride Level 102, Carbon Dioxide Level 30, Anion Gap 13, Blood Urea Nitrogen 45, Creatinine 1.45, Estimat Glomerular Filtration Rate 49, BUN/Creatinine Ratio 31, Glucose Level 92, Calcium Level 8.7, Phosphorus Level 4.9, Magnesium Level 1.9 08/05/19 04:05: Blood Gas Puncture Site LT RADIAL, Blood Gas Patient Temperature 36.2, Arterial Blood pH 7.36, Arterial Blood Partial Pressure CO2 63, Arterial Blood Partial Pressure O2 114, Arterial Blood HCO3 35, Arterial Blood Total CO2 36.9, Arterial Blood Oxygen Saturation 99, Arterial Blood Base Excess 9.2, Neil Test YES-POS, Blood Gas Ventilator Setting YES, Blood Gas Inspired Oxygen 30% 08/05/19 07:45: Triglycerides Level 180, Vancomycin Level Trough 23.3 08/05/19 11:24: Glucometer 125 08/05/19 18:08: Glucometer 83 08/06/19 00:21: Glucometer 74 08/06/19 03:25: White Blood Count 7.3, Red Blood Count 2.82, Hemoglobin 8.0, Hematocrit 27, Mean Corpuscular Volume 94, Mean Corpuscular Hemoglobin 28, Mean Corpuscular Hemo globin Concent 30, Red Cell Distribution Width 18.1, Platelet Count 119, Mean Platelet Volume 9.5, Neutrophils (%) (Auto) 72, Lymphocytes (%) (Auto) 15, Monocytes (%) (Auto) 12, Eosinophils (%) (Auto) 2, Basophils (%) (Auto) 0, Neutrophils # (Auto) 5.2, Lymphocytes # (Auto) 1.1, Monocytes # (Auto) 0.9, Eosinophils # (Auto) 0.1, Basophils # (Auto) 0.0, Sodium Level 145, Potassium Level 4.3, Chloride Level 101, Carbon Dioxide Level 33, Anion Gap 11, Blood Urea Nitrogen 32, Creatinine 1.30, Estimat Glomerular Filtration Rate 56, BUN/Creatinine Ratio 25, Glucose Level 76, Calcium Level 8.4, Phosphorus Level 4.0, Magnesium Level 1.8, B-Type Natriuretic Peptide 149.4 08/06/19 03:36: Blood Gas Puncture Site RIGHT RADIAL, Blood Gas Patient Temperature 36.9, Arterial Blood pH 7.39, Arterial Blood Partial Pressure CO2 61, Arterial Blood Partial Pressure O2 61, Arterial Blood HCO3 36, Arterial Blood Total CO2 38.3, Arterial Blood Oxygen Saturation 88, Arterial Blood Base Excess 11.1, Neil Test YES-POS, Blood Gas Ventilator Setting YES, Blood Gas Inspired Oxygen 30% 08/06/19 08:12: Troponin I 0.082 08/06/19 10:13: Blood Gas Puncture Site LR, Blood Gas Patient Temperature 36.1, Arterial Blood pH 7.42, Arterial Blood Partial Pressure CO2 55, Arterial Blood Partial Pressure O2 43, Arterial Blood HCO3 35, Arterial Blood Total CO2 37.1, Arterial Blood Oxygen Saturation 80, Arterial Blood Base Excess 10.3, Neil Test YES-POS, Blood Gas Ventilator Setting YES, Blood Gas Inspired Oxygen 30% 08/06/19 11:49: Glucometer 88 08/06/19 18:26: Glucometer 84 08/07/19 00:14: Glucometer 101 08/07/19 00:17: Hemoglobin 10.2, Hematocrit 34 08/07/19 03:40: Hemoglobin 10.7, Hematocrit 35, White Blood Count 15.5, Red Blood Count 3.73, Mean Corpuscular Volume 94, Mean Corpuscular Hemoglobin 29, Mean Corpuscular Hemoglobin Concent 30, Red Cell Distribution Width 17.7, Platelet Count 135, Mean Platelet Volume 9.8, Neutrophils (%) (Auto) 88, Lymphocytes (%) (Auto) 4, Monocytes (%) (Auto) 8, Eosinophils (%) (Auto) 0, Basophils (%) (Auto) 0, Neutrophils # (Auto) 13.7, Lymphocytes # (Auto) 0.6, Monocytes # (Auto) 1.2, Eosinophils # (Auto) 0.0, Basophils # (Auto) 0.0, Neutrophils % (Manual) 83, Lymphocytes % (Manual) 3, Monocytes % (Manual) 11, Band Neutrophils 3, Stomatocytes SLIGHT, Blood Morphology Comment NORMAL, Sodium Level 147, Pot assium Level 4.7, Chloride Level 101, Carbon Dioxide Level 31, Anion Gap 15, Blood Urea Nitrogen 31, Creatinine 1.38, Estimat Glomerular Filtration Rate 52, BUN/Creatinine Ratio 22, Glucose Level 101, Calcium Level 9.5, Corrected Calcium 10.0, Phosphorus Level 6.2, Magnesium Level 2.0, Total Bilirubin 0.5, Aspartate Amino Transf (AST/SGOT) 20, Alanine Aminotransferase (ALT/SGPT) 14, Alkaline Phosphatase 102, Total Protein 6.9, Albumin 3.4, Triglycerides Level 241 08/07/19 03:48: Blood Gas Puncture Site RIGHT RADIAL, Blood Gas Patient Temperature 36.7, Arterial Blood pH 7.21, Arterial Blood Partial Pressure CO2 95, Arterial Blood Partial Pressure O2 92, Arterial Blood HCO3 37, Arterial Blood Total CO2 39.8, Arterial Blood Oxygen Saturation 96, Arterial Blood Base Excess 9.0, Neil Test YES-POS, Blood Gas Ventilator Setting NO, Blood Gas Inspired Oxygen 70% 08/07/19 05:30: Urine Color YELLOW, Urine Clarity CLEAR, Urine pH 5.0, Urine Specific [place] >=1.030, Urine Protein 3+, Urine Glucose (UA) NEGATIVE, Urine Ketones NEGATIVE, Urine Nitrite NEGATIVE, Urine Bilirubin NEGATIVE, Urine Urobilinogen 0.2, Urine Leukocyte Esterase NEGATIVE, Urine RBC (Auto) 1+, Urine RBC 2-5, Urine WBC 0-2, Urine Squamous Epithelial Cells 2-5, Urine Crystals PRESENT, Urine Uric Acid Crystals LARGE, Urine Bacteria MODERATE, Urine Casts PRESENT, Urine Hyaline Jason ts 0-2, Urine Mucus MODERATE, Urine Culture Indicated YES 08/07/19 06:24: Blood Gas Puncture Site RIGHT RADIAL, Blood Gas Patient Temperature 36.0, Arterial Blood pH 7.23, Arterial Blood Partial Pressure CO2 91, Arterial Blood Partial Pressure O2 46, Arterial Blood HCO3 37, Arterial Blood Total CO2 40.2, Arterial Blood Oxygen Saturation 74, Arterial Blood Base Excess 9.6, Neil Test YES-POS, Blood Gas Ventilator Setting YES, Blood Gas Inspired Oxygen 100% 08/07/19 09:25: Blood Gas Puncture Site RIGHT RADIAL, Blood Gas Patient Temperature 36.1, Arterial Blood pH 7.27, Arterial Blood Partial Pressure CO2 81, Arterial Blood Partial Pressure O2 79, Arterial Blood HCO3 36, Arterial Blood Total CO2 38.9, Arterial Blood Oxygen Saturation 95, Arterial Blood Base Excess 9.2, Neil Test POSITIVE, Blood Gas Ventilator Setting YES, Blood Gas Inspired Oxygen 60% 08/07/19 11:26: Blood Gas Puncture Site RIGHT RADIAL, Blood Gas Patient Temperature 36.2, Arterial Blood pH 7.32, Arterial Blood Partial Pressure CO2 67, Arterial Blood Partial Pressure O2 78, Arterial Blood HCO3 34, Arterial Blood Total CO2 36.2, Arterial Blood Oxygen Saturation 97, Arterial Blood Base Excess 8.0, Neil Test POSITIVE, Blood Gas Ventilator Setting YES, Blood Gas Inspired Oxygen 50% 08/07/19 11:29: Glucometer 117 Laboratory Tests 08/03/19 14:05 08/04/19 04:10 08/05/19 03:15 08/06/19 03:25 08/07/19 00:17 08/07/19 03:40 Discussion & Recommendations Patient failed ventilator extubation Discharge Home Medications: Active Scripts Active Lexapro (Escitalopram Oxalate) 20 Mg Tablet 20 Mg PO DAILY 30 Days Reported Escitalopram Oxalate 20 Mg Tablet 20 Mg PO DAILY Potassium Chloride 10 Meq Tablet.er 10 Meq PO DAILY Furosemide 40 Mg Tablet 60 Mg PO BID TAKES 1 & 1/2 (40MG) TABLET Prednisone 10 Mg Tab PO UD 9 Days TAKE 4 TABLETS ONCE A DAY FOR 3 DAYS THEN TAKE 2 TABLETS ONCE A DAY FOR 3 DAYS THEN TAKE 1 TABLET ONCE A DAY FOR 3 DAYS #21 TABLETS FILLED 07-30-19 Linezolid 600 Mg Tablet 600 Mg PO BID 7 Days 7 DAY SUPPLY FILLED 07-30-19 Iprat-Albut 0.5-3(2.5) mg/3 ml (Ipratropium/Albuterol Sulfate) 3 Ml Ampul.neb 3 Ml IH Q4H PRN Breo Ellipta 200-25 Mcg INH (Fluticasone/Vilanterol) 1 Each Blst.w.dev 1 Puff INH 0600 Ventolin Hfa (Albuterol Sulfate) 18 Gm Hfa.aer.ad 2 Puff INH Q4H PRN Aspirin EC (Aspirin) 81 Mg Tablet. 81 Mg PO DAILY Metoprolol Succinate 25 Mg Tab.er.24h 12.5 Mg PO DAILY TAKES 1/2 (25MG) TABLET Daliresp (Roflumilast) 500 Mcg Tablet 500 Mcg PO DAILY Pantoprazole Sodium 40 Mg Tablet. 40 Mg PO DAILY Eliquis (Apixaban) 5 Mg Tablet 5 Mg PO BID Amiodarone HCl 200 Mg Tablet 200 Mg PO DAILY Buspirone HCl 10 Mg Tablet 10 Mg PO BID Sildenafil (Sildenafil Citrate) 20 Mg Tablet 20 Mg PO TID Vitamin D3 (Cholecalciferol (Vitamin D3)) 1,000 Unit Capsule 1,000 Unit PO DAILY Hydrocodone-Acetamin 5-325 mg (Hydrocodone/Acetaminophen) 1 Each Tablet 1 Tab PO TID PRN Centrum Adults Tablet (Multivitamin/Iron/Folic Acid) 1 Each Tablet 1 Tab PO DAILY Vitamin B-12 5,000 Mcg Tab Sl (Cyanocobalamin/Cobamamide) 1 Each Tab.subl 5,000 Mcg SL DAILY Lisinopril 10 Mg Tablet 10 Mg PO DAILY Albuterol Sulfate 2.5 Mg/3 Ml Vial.neb 2.5 Mg NEB Q4H PRN Lyrica (Pregabalin) 150 Mg Capsule 150 Mg PO BID LAST FILLED 06-14-19 #60 Atorvastatin Calcium 10 Mg Tablet 10 Mg PO DAILY Amlodipine Besylate 5 Mg Tablet 5 Mg PO DAILY Instructions to patient/family Please see electronic discharge instructions given to patient. Clinical Quality Measures DVT/VTE Risk/Contraindication: Risk Factor Score Per Nursin RFS Level Per Nursing on Admit: 4+=Very High DANITA TEE DO Aug 08, 2019 07:17 POS
[2019-08-17] MEDS ORDERED: HYDR-3812 PO (09:48)
--- OUTSIDE RECORDS SUMMARY | 2019-08-28 23:16 | XMS REPORT | Clinical Summary ---
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 Address [facility] one Number [facility] [address] [place] [address] * COMPREHENSIVE METABOLIC PANEL (08/07/2019 6:34 PM SCALLOP CUTTER MACHINE) Sodium 146 137 - 147 MMOL/L [facility] Potassium 5.0 3.5 - 5.1 MMOL/L [facility] Chloride 102 98 - 110 MMOL/L [facility] Glucose 104 (H) 70 - 100 MG/DL [facility] Blood Urea 36 (H) 7 - 25 MG/DL [facility] Nitrogen Creatinine 1.33 (H) 0.4 - 1.24 MG/DL [facility] Calcium 9.0 8.5 - 10.6 MG/DL [facility] Total Protein 6.0 6.0 - 8.0 G/DL [facility] Total Bilirubin 0.3 0.3 - 1.2 MG/DL [facility] Albumin 2.9 (L) 3.5 - 5.0 G/DL [facility] Alk Phosphatase 75 25 - 110 U/L [facility] AST (SGOT) 12 7 - 40 U/L [facility] CO2 34 (H) 21 - 30 MMOL/L [facility] ALT (SGPT) 11 7 - 56 U/L [facility] Anion Gap 10 3 - 12 [facility] eGFR Non 54 (L) >60 mL/min MAIN LAB Comment: [place] The eGFR is not validated f or use in drug dosing adjustments. Continue to use estimated creatinine clearance per dosing reference text. Please contact the Clinical Pharmacist for questions. eGFR >60 >60 mL/min MAIN LAB [place] Comment: The eGFR is not validated for use in drug dosing adjustments. Continue to use estimated creatinine clearance per dosing reference text. Please contact the Clinical Pharmacist for questions. Specimen Blood Performing Organization Address [facility] one Number MAIN LAB [address] [place] [address] * A-LINE INSERTION (08/07/2019 6:04 PM SCALLOP CUTTER MACHINE) Narrative Performed At Rene Figueroa APRN, ANP-BC 08/07/20 6:07 PM Anesthesia Procedure: Arterial Line Temo cement A-LINE INSERTION Date/Time: 08/07/2019 5:50 PM Patient location: ICU Indications: multiple ABGs and hemodyna john monitoring Preprocedure checklist performed: 2 pat ient identifiers, risks & benefits discussed, patient evaluated, timeout p erformed, patient being monitored and sterile drape Sterile technique: - Proper hand washing - Cap, mask - Sterile gloves - Skin prep for antisepsis Arterial Line Procedure Patient sedated: no Artery prepped with chlorhexidine; skin prep agent completely dried prior to procedure. Location: radial artery Laterality: right Technique: palpation Needle gauge: 20 G Number of attempts: 2 Procedure Outcome Catheter secured with chlorhexidine pat ch applied Events: no complications noted during i nsertion and skin intact, warm, and dry Observation: pt tolerated well Performed by: Rene Figueroa APRN, ANP-BC Authorized by: Rene Figueroa APRN, ANP-B C * CULTURE-URINE W/SENSITIVITY (08/07/2019 5:59 PM SCALLOP CUTTER MACHINE) Battery Name URINE CULTURE MAIN LAB Specimen URINE MAIN LAB Description Special NONE MAIN LAB Requests Culture NO GROWTH [facility] Report Status FINAL MAIN LAB 08/08/2019 Specimen Urine - Urine Performing Organization Address [facility] one Number MAIN LAB [address] [place] [address] * CYTOLOGY FLUIDS (08/07/2019 5:58 PM SCALLOP CUTTER MACHINE) Cytology [facility] [email or web address] Department of Pathology and Laboratory Medicine [address], [place] [address] Surgical Pathology Office: [phone] CYTOLOGY REPORT NAME: KEMAR LOPEZ CYTOLOGY #: [id number] MR #: [id number] ALT ID #: [id number] #: [id number] LOCATION: [facility] DATE OF PROCEDURE: 08/07/2019 AGE: 63 SEX: M DATE RECEIVED: 08/08/2019 : 1955 TIME RECEIVED: 09:43 PHYSICIAN: RENE FIGUEROA APRN-PROCUREMENT COST COORDINATOR, MSN DATE OF REPORT: 08/09/2019 COPY TO: DATE OF PRINTIN08/09/2019 Material Received: A: Pleural Fluid-Right History: 63-year-old male with a history of acute respiratory failure, pleural effusion Gross Description: ( 1 ThinPrep, 1 DQ direct smear) 2mLs of cloudy pale orange fluid. ############################## ############################## ############ Final Diagnosis: A. Pleural Fluid-Right: Negative for malignant cells. Attestation: By this signature, I attest that I have personally formulated the final interpretation expressed in this report and that the above diagnosis is based upon my examination of the slides and/or other material indicated in this report. +++Electronically Signed Out By+++ ik/08/09/2019 Interpreted by: Charis Sloan MD, PhD Teresa Pearson MD Resident Specimen Pleural,Right Performing Organization Address City/State/Zipcode Ph one Number [facility] [address] [place] [address] * PLEURAL FLUID TOTAL PROTEIN (08/07/2019 5:44 PM SCALLOP CUTTER MACHINE) Pleural Fluid 1.8 (H)Comment: Serum to <1.1 g/dL [facility] Total Protein pleural fluid protein gradi ent >3.1 g/dL is suggestive of an exudate Specimen Pleural Fluid Performing Organization Address City/State/[facility] one Number [facility] [address] [place] [address] * PLEURAL FLUID PH (08/07/2019 5:44 PM SCALLOP CUTTER MACHINE) Pleural Fluid 7.87 (H) 7.60 - 7.66 [facility]IN [facility] Ph Specimen Pleural Fluid Performing Organization Address [facility] one Number MAIN LAB [address] [place] [address] * PLEURAL FLUID LACTATE DEHYDROGENASE (08/07/2019 5:44 PM SCALLOP CUTTER MACHINE) Pleural Fluid 98Comment: Higher levels 67 - 140 U/L [facility] [place] [facility] Lactate suggestive of exudate Dehydrogenase Specimen Pleural Fluid Performing Organization [facility] one Number MAIN LAB [address] [place] [address] * PLEURAL FLUID GLUCOSE (08/07/2019 5:44 PM SCALLOP CUTTER MACHINE) Pleural Fluid 120 (H) 70 - 100 mg/dL MAIN LAB Glucose Comment: Glucose <60 mg/dL associated with parapneumonic effusion, tuberculosis, malignancy, empyema, and rheumatoid disease Specimen Pleural Fluid Performing Organization Address [facility] one Number MAIN LAB [address] [place] [address] * PLEURAL FLUID AMYLASE (08/07/2019 5:44 PM SCALLOP CUTTER MACHINE) Pleural Fluid 125 U/L MAIN LAB Amylase Comment: Elevated pleural fluid value is a level higher than the upper limit of normal for plasma. Specimen Pleural Fluid Performing Organization Address [facility] one Number MAIN LAB [address] [place] [address] * GRAM STAIN (08/07/2019 5:44 PM SCALLOP CUTTER MACHINE) Only the most recent of 2 results within the time period is included. Battery Name GRAM STAIN [facility] Specimen PLEURAL FLUID [facility] Description Special NONE [facility] MAIN [facility] Requests Gram Stain FEW [facility] NEUTROPHILS NO ORGANISMS SEEN Report Status FINAL [facility] 08/08/2019 Specimen Pleural Fluid Performing Organization Address [facility] one Number MAIN LAB [address] [place] [address] * CULTURE-WOUND/TISSUE/FLUID(AEROBIC ONLY)W/SENSITIVITY (08/07/2019 5:44 PM SCALLOP CUTTER MACHINE) Battery Name ROUTINE CULTURE [facility] Specimen PLEURAL FLUID [facility] Description Special NONE [facility] Requests Direct Gram FEW [facility] Stain NEUTROPHILS NO ORGANISMS SEEN Culture NO GROWTH 5 DAYS [facility] Report Status FINAL [facility] 08/12/2019 Specimen Pleural Fluid Performing Organization Address [facility] one Number [facility] [address] [place] [address] * CULTURE-RESP,LOWER W/SENSITIVITY (08/07/2019 5:21 PM SCALLOP CUTTER MACHINE) Battery Name LOWER RESP CULTURE [facility] Specimen BRONCHIAL ALVEOLAR LAVAGE, RML [facility] Description Special NONE [facility] Requests Direct Gram MODERATE [facility] Stain NEUTROPHILS NO ORGANISMS SEEN Culture NO GROWTH 2 DAYS [facility] Report Status FINAL [facility] 08/10/2019 Specimen Bronchial Alveolar Lavage,RML Performing Organization Address [facility] Ph one Number MAIN LAB [address] [place] [address] * CT CHEST EXTERNAL IMAGING (08/07/2019 12:19 PM SCALLOP CUTTER MACHINE) Only the most recent of 3 results within the time period is included. Specimen Narrative Performed At This order has been auto finalized and does not contain a result. * TELEMETRY STRIPS-SCAN (08/07/2019 12:00 AM SCALLOP CUTTER MACHINE) Narrative Performed At This result has an attachment that is n ot available. Ordered by an unspecified provider. * CT ABD/PEL EXTERNAL IMAGING (06/26/2019 12:00 AM CDT) Specimen Narrative Performed At This order has been auto finalized and does not contain a result. from Last 3 Months Insurance Type Payer Benefit Subscriber ID Effective Phone Address Plan / Dates Group Medicare MEDICARE MEDICARE xxxxxxxxxx 2009- PART A AND Present B (Home) [place] [phone] Advance Directives Patient Public Safety Director Explanation Type Date Recorded Advance 08/14/2018 4:08 PM Directive/DPOA Date Inactivated Comments Code Status Date Activated 08/14/2019 1:47 PM Full Code 08/07/2019 4:47 PM Provider has discussed Code Status Yes w/Patient or Family? 08/16/2018 3:45 PM Full Code 08/14/2018 3:46 PM Provider has discussed Code Status No, discussion no t w/Patient or Family? necessary based on Dx
--- OUTSIDE RECORDS SUMMARY | 2019-08-28 23:17 | XMS REPORT | Encounter Summary ---
Author Author [facility] Organization [facility] Address Unknown Phone Unavailable Care Team Providers Care Periodicals Library Assistant Name Role Phone Ricky Cleveland DO PCP Reason for Visit * Auth/Cert Referred By Contact Referred To Contact Status Reason Specialty Diagnoses / Procedures Diagnoses Empyema, right (HCC) Empyema, right (HCC) [J86.9] P rocedures IN PERQ DRAINAGE PLEURA INSERT CATH W/O IMAGING Chest tube placement at ICU bedside Encounter Details Care Team Description Date Type Department August Fisher MD [address] [facility] [id number] [place] [address] [phone] Topher Marinelli MD [address] [facility] [address] [place] [address] [phone] Izzy Yang MD [address] [facility] [id number] [place] [address] [phone] Large pleural effusion 08/07/2019 [facility] 08/14/[address] [place] [address] Social History Date Tobacco Use Types Packs/Day [...] Travel Start No recent travel history available. documented as of this encounter Last Filed Vital Signs Reading Time Taken Comments Vital Sign 146/56 08/14/2019 8:00 AM COMPENSATION VICE PRESIDENT Blood Pressure 71 08/14/2019 8:49 AM COMPENSATION VICE PRESIDENT Pulse 36.6 C (97.9 F) 08/14/2019 8:00 AM COMPENSATION VICE PRESIDENT Temperature - - Respiratory Rate 97% 08/14/2019 8:49 AM COMPENSATION VICE PRESIDENT Oxygen Saturation - - Inhaled Oxygen Concentration 143.1 kg (315 lb 7.7 oz) 08/14/2019 5:38 AM COMPENSATION VICE PRESIDENT Weight 177.8 cm (5' 10") 08/09/2019 2:00 PM COMPENSATION VICE PRESIDENT Height 45.27 08/09/2019 2:00 PM COMPENSATION VICE PRESIDENT Body Mass Index documented in this encounter Functional Status Date of Assessment Functional Status Response 08/14/2019 Does the patient have a hearing impairment: No 08/14/2019 Does the patient have a visual impairment: No 08/14/2019 Does the patient have impaired ambulation: No 08/14/2019 Does the patient have an activity of daily living Ye s (ADL) impairment: 08/14/2019 Does the patient have an instrumental activity of Ye s daily living (IADL) impairment: documented as of this encounter Discharge Summaries * Arriola, December - 08/14/2019 9:52 AM COMPENSATION VICE PRESIDENT Physician Discharge Summary Name: Kemar Lopez Date Of : 1955 Age: 63 years Admit date: 08/07/2019 Discharge date: 08/14/2019 11:42 AM Attending Physician: Izzy Yang Service: Med ICU 3 - 0103 Physician Summary completed by: Fabiola Fragoso APRN Reason for hospitalization: acuteon chronichypoxic&hypercarbic respiratory failure&right pleural effusion. Significant PMH: Medical History: Diagnosis Date CAD (coronary artery disease) Chronic heart failure with preserved ejection fraction (HFpEF) ([facility]LY [facility]) Chronic renal failure COPD (chronic obstructive pulmonary disease) ([facility]) Depression History of GI bleed HTN (hypertension) Non-insulin dependent type 2 diabetes mellitus (HCC) Obesity, morbid, BMI 40.0-49.9 (HCC) TERE treated with BiPAP Paroxysmal atrial fibrillation (HCC) Allergies: Patient has no known allergies. Admission Physical Exam notable for: General:sedated, intubated Head: Normocephalic, without obvious abnormality Lungs: diminshed right side, clear on left Chest wall: No tenderness or deformity. Heart: Sinus mateo Abdomen: Soft, non-tender. No masses. No organomegaly. Extremities: no cyanosis or edema Skin: Warm Musculoskeletal: Unable to asses Psych: unable to assess Admission Lab/Radiology studies notable for: Hgb 9.4, plt 108, bicarb 34, Cr 1.33, albumin 2.9, triglycerides 162 ABG 7.44/50/85 CXR 08/07: 1. Lines and tubes as above. The right IJ catheter tip is in high position in the region of the right internal jugular and brachiocephalic vein junction. 2. Moderate cardiomegaly with indistinct pulmonary vasculature and interstitia l prominence, likely reflecting congestion and edema. 3. Enlarged central pulmonary arteries which can be seen with pulmonary hypert ension. 4. Bibasilar consolidation, right greater than left. 5. Small bilateral pleural effusions, right greater than left. Brief Hospital Course: Kemar Lopez is a 63 y/o malew/ PMHsignificant for HTN, CAD, HFpEF, paroxysm al afib&mixed COPD presented to s a transfer from [place], [place] w/acute respiratory failure &concern for empyema. Admitted foracuteon chronichypoxic&hypercarbic respiratory failure (baseline 4-5 L/NC O2)& w/large right pleural effusion. He was initially admitted to the CTICU&was intubated upon arrival. A BAL was performed &R chest tube placed. BAL did not show any initial signs of infection, although BAL done at outside facility showed PSAE &enterobacter cloacae. Chest tube drained about 950 mL of pleural fluid upon placement.CT removed 08/10.Pt was eventually weaned from the ventilator to comfort flow oxygen &eventually with diuresis was able to be weaned to baseline O2 requirement.Completed course of [id number]/10. Stable to tx to inpatient rehab. Does have pending c.diff PCR. Condition at Discharge: Stable Discharge Diagnoses: Hospital Problems Active Problems Chronic congestive heart failure (HCC) COPD mixed type (HCC) Type 2 diabetes mellitus (HCC) Pulmonary artery hypertension (HCC) Morbid obesity with BMI of 45.0-49.9, adult (HCC) History of CHF (congestive heart failure) Chronic heart failure with preserved ejection fraction (HFpEF) (FORM[facility]LY [facility]) Resolved Problems * (Principal) RESOLVED: Large pleural effusion RESOLVED: Chronic obstructive pulmonary disease with acute exacerbation (HCC) RESOLVED: Acute on chronic respiratory failure with hypercapnia (HCC) Surgical Procedures: Chest tube placement / Significant Diagnostic Studies and Procedures: As above Consults: None Patient Disposition: Outside Rehabilitation Facility Patient instructions/medications: Activity as Tolerated It is important to keep increasing your activity level after you leave the hosp ital. Moving around can help prevent blood clots, lung infection (pneumonia) an d other problems. Gradually increasing the number of times you are up moving ar ound will help you return to your normal activity level more quickly. Continue to increase the number of times you are up to the chair and walking daily to ret urn to your normal activity level. Begin to work toward your normal activity lev el at discharge Report These Signs and Symptoms Please contact your doctor if you have any of the following symptoms: temperatu re higher than 100.4 degrees F, uncontrolled pain, persistent nausea and/or vomi ting, difficulty breathing, chest pain, severe abdominal pain, headache, unable to urinate, unable to have bowel movement or drainage with a foul odor Questions About Your Stay For questions or concerns regarding your hospital stay, call [phone]. Discharging attending physician: IZZY YANG [[id number]] Cardiac Diet Limiting unhealthy fats and cholesterol is the most important step you can take in reducing your risk for cardiovascular disease. Unhealthy fats include satur ated and trans fats. Monitor your sodium and cholesterol intake. Restrict your sodium to 2g (grams) or 2000mg (milligrams) daily, and your cholesterol to 200m g daily. If you have questions regarding your diet at home, you may contact a dietitian iona t . Additional Discharge Instructions Monitor intake/output while on bumex. Would obtain a basic metabolic panel to assess electrolytes/kidney function in a pproximately 1 week and send results to the patient's primary care provider. BiPAP Q HS and with naps -- IPAP 20, EPAP 8, FiO2 40%. O2 at 5 L/NC during day. PT/OT eval and treat. Current Discharge Medication List START taking these medications Details bumetanide (BUMEX) 2 mg tablet Take 2 mg in AM and 1 mg in PM. PRESCRIPTION TYPE: No Print oxyCODONE (ROXICODONE) 5 mg tablet Take one tablet to two tablets by mouth every 4 hours as needed PRESCRIPTION TYPE: No Print CONTINUE these medications which have NOT CHANGED Details albuterol 0.083% (PROVENTIL; VENTOLIN) 2.5 mg /3 mL (0.083 %) nebulizer solution Inhale 3 mL solution by nebulizer as directed every 4 hours as needed. PRESCRIPTION TYPE: Historical Med albuterol sulfate (PROAIR HFA) 90 mcg/actuation aerosol inhaler Inhale 2 puffs b y mouth into the lungs every 4 hours as needed for Wheezing or Shortness of [place] th. Shake well before use. PRESCRIPTION TYPE: Historical Med Comments: Pharmacist may choose either generic albuterol HFA, ProAir HFA, Ventol in HFA, or Proventil HFA based on what is cheapest for the patient. amiodarone (CORDARONE) 200 mg tablet Take 200 mg by mouth daily. Take with food. PRESCRIPTION TYPE: Historical Med apixaban (ELIQUIS) 5 mg tablet Take 5 mg by mouth twice daily. PRESCRIPTION TYPE: Historical Med aspirin EC 81 mg tablet Take 81 mg by mouth daily. Take with food. PRESCRIPTION TYPE: Historical Med atorvastatin (LIPITOR) 10 mg tablet Take 10 mg by mouth daily. PRESCRIPTION TYPE: Historical Med busPIRone (BUSPAR) 10 mg tablet Take 10 mg by mouth twice daily. PRESCRIPTION TYPE: Historical Med cholecalciferol (VITAMIN D-3) 1,000 units tablet Take 1,000 Units by mouth daily . PRESCRIPTION TYPE: Historical Med cyanocobalamin (VITAMIN B-12) 500 mcg tablet Take 500 mcg by mouth daily. PRESCRIPTION TYPE: Historical Med escitalopram oxalate (LEXAPRO) 20 mg tablet Take 20 mg by mouth daily. PRESCRIPTION TYPE: Historical Med fluticasone furoate-vilanterol(+) (BREO ELLIPTA) 200-25 mcg inhalation disk Inha le 1 puff by mouth into the lungs daily. PRESCRIPTION TYPE: Historical Med metoprolol XL (TOPROL XL) 25 mg extended release tablet Take 12.5 mg by mouth da amy. PRESCRIPTION TYPE: Historical Med kwbqijzj-cim-FL-lycopen-lutein (CENTRUM SILVER ULTRA MEN'S) 300-600-300 mcg tab Take 1 tablet by mouth daily. PRESCRIPTION TYPE: Historical Med pantoprazole DR (PROTONIX) 40 mg tablet Take 40 mg by mouth daily. PRESCRIPTION TYPE: Historical Med pregabalin (LYRICA) 150 mg capsule Take 150 mg by mouth twice daily. PRESCRIPTION TYPE: Historical Med roflumilast (DALIRESP) 500 mcg tablet Take 500 mcg by mouth daily. PRESCRIPTION TYPE: Historical Med senna/docusate (SENOKOT-S) 8.6/50 mg tablet Take two tablets by mouth daily. Qty: 60 tablet, Refills: 0 PRESCRIPTION TYPE: Print sildenafil (REVATIO) 20 mg tablet Take 20 mg by mouth three times daily. PRESCRIPTION TYPE: Historical Med sodium chloride (SEA MIST) 0.65 % nasal spray Apply one spray to two sprays to e ach nostril as directed as Needed. Qty: 30 mL, Refills: 2 PRESCRIPTION TYPE: Print vitamin A 10,000 unit capsule Take 10,000 Units by mouth daily. PRESCRIPTION TYPE: Historical Med The following medications were removed from your list. This list includes medic ations discontinued this stay and those removed from your prior med list in our system amLODIPine (NORVASC) 5 mg tablet budesonide/formoterol (SYMBICORT HFA) 160/4.5 mcg inhalation furosemide (LASIX) 40 mg tablet HYDROcodone/acetaminophen (NORCO) 5/325 mg tablet lisinopril (PRINIVIL; ZESTRIL) 10 mg tablet Pending items needing follow up: Should have BMP in next week at the rehab [facility] it while on bumex Signed: Fabiola Fragoso APRN Pulmonary/Critical Care Medicine Pager [phone] or Phil M3 (2nd call/night) Pager [phone] 08/14/2019 cc: Primary Care Physician: Ricky Cleveland Referring physicians: Ramana Forrest DO ENSATION VICE PRESIDENT Associated attestation - Izzy Yang MD - 08/15/2019 12:31 PM COMPENSATION VICE PRESIDENT Agree with discharge summary as written. documented in this encounter Medications at Time of Discharge Start Date End Date Medication Sig Dispensed Refills albuterol 0.083% Inhale 3 mL 0 (PROVENTIL; VENTOLIN) 2.5 solution by mg /3 mL (0.083 %) nebulizer as nebulizer solution directed every 4 hours as needed. albuterol sulfate (PROAIR Inhale 2 0 HFA) 90 mcg/actuation puffs by aerosol inhaler mouth into the lungs every 4 hours as needed for Wheezing or Shortness of Breath. Shake well before use. amiodarone (CORDARONE) Take 200 mg 0 200 mg tablet by mouth daily. Take with food. apixaban (ELIQUIS) 5 mg Take 5 mg by 0 tablet mouth twice daily. aspirin EC 81 mg tablet Take 81 mg by 0 mouth daily. Take with food. atorvastatin (LIPITOR) 10 Take 10 mg by 0 mg tablet mouth daily. 08/14/2019 bumetanide (BUMEX) 2 mg Take 2 mg in 0 tablet AM and 1 mg in PM. busPIRone (BUSPAR) 10 mg Take 10 mg by 0 tablet mouth twice daily. cholecalciferol (VITAMIN Take 1,000 0 D-3) 1,000 units tablet Units by mouth daily. cyanocobalamin (VITAMIN Take 500 mcg 0 B-12) 500 mcg tablet by mouth daily. escitalopram oxalate Take 20 mg by 0 (LEXAPRO) 20 mg tablet mouth daily. fluticasone Inhale 1 puff 0 furoate-vilanterol(+) by mouth into (BREO ELLIPTA) 200-25 mcg the lungs inhalation disk daily. metoprolol XL (TOPROL XL) Take 12.5 mg 0 25 mg extended release by mouth tablet daily. ehbdtize-ziz-RG-lycopen-l Take 1 tablet 0 utein (CENTRUM SILVER by mouth ULTRA MEN'S) 300-600-300 daily. mcg tab 08/14/2019 oxyCODONE (ROXICODONE) 5 Take one 0 mg tablet tablet to two tablets by mouth every 4 hours as needed pantoprazole DR Take 40 mg by 0 (PROTONIX) 40 mg tablet mouth daily. pregabalin (LYRICA) 150 Take 150 mg 0 mg capsule by mouth twice daily. roflumilast (DALIRESP) Take 500 mcg 0 500 mcg tablet by mouth daily. 08/16/2018 senna/docusate Take two 60 tablet 0 (SENOKOT-S) 8.6/50 mg tablets by tablet mouth daily. sildenafil (REVATIO) 20 Take 20 mg by 0 mg tablet mouth three times daily. 08/16/2018 sodium chloride (SEA Apply one 30 mL 2 MIST) 0.65 % nasal spray spray to two sprays to each nostril as directed as Needed. vitamin A 10,000 unit Take 10,000 0 capsule Units by mouth daily. documented as of this encounter Progress Notes * Fabiola FragosoVIVIAN - 08/14/2019 6:05 AM COMPENSATION VICE PRESIDENT Pulmonary / Critical Care Progress Note Kemar Lopez Today's Date: 08/14/2019 Admission Date: 08/07/2019 LOS: 7 days Active Problems: Chronic congestive heart failure (HCC) COPD mixed type (HCC) Type 2 diabetes mellitus (HCC) Pulmonary artery hypertension (HCC) Morbid obesity with BMI of 45.0-49.9, adult (HCC) History of CHF (congestive heart failure) Chronic heart failure with preserved ejection fraction (HFpEF) (HCC) Brief Hospital Course: Kemar Lopez is a 63 y/o malew/ PMHsignificant for HTN, CAD, HFpEF, paroxysm al afib&mixed COPD presented to s a transfer from [place], [place] w/acute respiratory failure &concern for empyema. Admitted foracuteon chronichypoxic&hypercarbic respiratory failure (baseline 4-5 L/NC O2)& w/large right pleural effusion. He was initially admitted to the CTICU&was intubated upon arrival. A BAL was performed &R chest tube placed. BAL did not show any initial signs of infection, although BAL done at outside facility showed PSAE &enterobacter cloacae. Chest tube drained about 950 mL of pleural fluid upon placement.CT removed 08/10.Pt was eventually weaned from the ventilator to comfort flow oxygen &eventually with diuresis was able to be weaned to baseline O2 requirement.Completed 10-day course meropenem on 08/13. Stable to discharge to inpatient rehab. 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 20 mg daily, buspar 10 mg BID, and lyrica 150 mg BID PULM Acute onChronicRespiratoryFailure w/ Hypoxia& Hypercapnia (improved) Uncomplicated Parapneumonic Effusion COPD TERE Pulmonary Hypertension - acute respiratory failure 2/2 parapneumonic effusion, decompensated heart fail ure & PNA - baseline O24-5 L/NC -presented to OSH 08/03 w/acute encephalopathy, worsening SOB &MARIE; ABG in ED at OSH w/PaCO2 > 100 --> intubated - CXR 08/03 at OSH w/possible R sided PNA, started on zosyn -bronchoscopy done 08/05 w/multiple mucous plugs; BAL performed, + PSAE & enterobacter cloacae -repeat BAL 08/07: negative - chest tube placed 08/07, appearedtransudative, CT removed 08/10 - extubated 08/08 to comfort flow/BiPAP - CXR 08/09 w/worsening bilateral infiltrates &signs of pulmonary edema --> started diuresis - O2 at 5 L/NC, O2 sat 98-100% PLAN - ID w/u and tx as below -continueBiPAP at night; pt reports settings are 23/04 - continue albuterol, daliresp, advair, sildenafil 20 mg TID, and bumex 2 mg Q A M/1 mg Q PM - on discharge, will switch advair to Breo ellipta (nonform); reports no longer on symbicort CV Acuteon Chronic Decompensated Heart Failure (improved) - NYHA functional classIII - admission BNPnot performed - WAX MACHINE OPERATOR meds include: amlodipine 5 mg daily, metoprolol XL 12.5 mg daily, lasix 40 mg BID, atorvastatin 10 mg daily, aspirin 81 mg daily, eliquis 5 mg BID, lisino pril 10 mg daily - goal dry weight:320 lbs per patient report; 339 lbs on 08/07 -last echo at [facility] in [place] 07/08/19: LVEF 60%, LVH, aortic sclerosis without stenosis, moderate to severe AR; PA pressure 53mmHg - monitor shows SB/SR, rate 50s-70s - SBP 110s PLAN - switched lasix to bumex as above, continue metoprolol XL 12.5 mg daily - continue to hold amlodipine and lisinopril -2000 mg sodium dietary restriction, fluid restriction 1.5 L/day ParoxysmalAFib - WAX MACHINE OPERATOR metoprolol, amiodarone 200 mg daily, eliquis - [id number] score 2 - HR 50s-70s PLAN - continue metoprolol, amio & eliquis HTN CAD - WAX MACHINE OPERATOR meds as above -last coronary catheterization in 2010, no stents placed previously PLAN - continue WAX MACHINE OPERATOR ASA, lipitor, and metoprolol XL GI - cardiac diet Recurrent GI Bleed -reported recurrent GI bleeds while on apixaban - EGD & colonoscopy 06/28/19: gastritis&hiatal hernia &colonic polyps - repeat colonoscopy 07/11/19 at [facility] [place]: nonbleeding sigmoid&ascending colon ulcer PLAN - continue eliquis cautiously RENAL - Cr 0.93 - I/O: net - 1.9 L last 24 hrs w/ 3.2 L UOP (net - 15.2 L for admit) ID Pseudomonas&Enterobacter Right Middle Lobe PNA - BAL 08/05 at OSH with mucus plugs, + PSAE&enterobacter - infectious w/u here at [facility] has been negative - 08/14: WBC 6.2, afebrile - increased stools 08/13 - c.diff PCR 08/13: pending PLAN - completed 10-day course meropenem 08/13 HEME ChronicNormoyticAnemia -hgb 9.4 on admit -pt w/reported GI bleed in setting of apixaban use in June, ? July - 08/14: hgb 8.6, plt 99 FEN - cardiac diet - IVF: none - review electrolytes and replace as needed PPX: Lines: PIV x 3 Drains/Tubes: None Indwelling Urinary Catheter: No DVT: SCDs; Eliquis GI: Protonix PT/OT: Yes Insulin: No Reviewed Quality Checklist with RN: Yes Code Status: Full Code Disposition/Family: Stable for discharge to inpatient rehab. Fabiola Fragoso APRN Pulm/Critical Care Pager [phone] or VoalteMe M3 (2nd call/night) Pager [phone] 08/14/2019 1006 __ Subjective: Kemar Lopez is a 63 y.o. male who is awake and alert, resting in bed. Offers no complaints. Has chronic back pain, L shoulder pain & knee pain but not acutely worse. ROS: Denies CARDONA, chest pain/pressure, SOB, cough, abdominal pain, N/V, or rash. Objective: Medications: Scheduled Meds: acetaminophen (TYLENOL) tablet 1,000 mg 1,000 mg Oral Q6H* albuterol 0.5% (PROVENTIL) nebulizer solution 2.5 mg 2.5 mg Inhalation Q4H While Awake & PRN And ipratropium bromide (ATROVENT) 0.02 % nebulizer solution 0.5 mg 0.5 mg Inhalatio n Q4H While Awake & PRN amiodarone (CORDARONE) tablet 200 mg 200 mg Oral QDAY apixaban (ELIQUIS) tablet 5 mg 5 mg Oral BID aspirin EC tablet 81 mg 81 mg Oral QDAY atorvastatin (LIPITOR) tablet 10 mg 10 mg Oral QDAY bumetanide (BUMEX) tablet 2 mg 2 mg Oral BID(9-17) busPIRone (BUSPAR) tablet 10 mg 10 mg Oral BID escitalopram oxalate (LEXAPRO) tablet 20 mg 20 mg Oral QDAY fluticasone-salmeterol (ADVAIR DISKUS) 250-50 mcg/dose inhalation disk 1 puff 1 puff Inhalation BID metoprolol XL (TOPROL XL) tablet 12.5 mg 12.5 mg Oral QDAY pantoprazole DR (PROTONIX) tablet 40 mg 40 mg Oral QDAY(21) pregabalin (LYRICA) capsule 150 mg 150 mg Oral BID roflumilast (DALIRESP) tablet 500 mcg 500 mcg Oral QDAY sildenafil (REVATIO) tablet 20 mg 20 mg Oral TID Continuous Infusions: PRN and Respiratory Meds:fentaNYL citrate PF Q1H PRN, oxyCODONE Q4H PRN Vital Signs: Last Filed Vital Signs: 24 Hour Ra nge BP: 119/53 (08/14 0400) Temp: 37.1 C (98.8 F) (08/14 0400) Pulse: 64 (08/14 0500) Respirations: 18 PER MINUTE (08/14 0500) SpO2: 98 % (08/14 0500) SpO2 Pulse: 63 (08/14 050) BP: (119-157)/(48-81) Temp: [36.9 C (98.4 F)-37.6 C (99.6 F)] Pulse: [62-85] Respirations: [13 PER MINUTE-26 PER MINUTE] SpO2: [91 %-100 %] Intensity Pain Scale (Self Report): 7 (08/13/192024) Vitals: 08/10/19 0438 08/12/19 0400 08/14/19 0538 Weight: (!) 147.4 kg (324 lb 15.3 oz) (!) 144.4 kg (318 lb 5.5 oz) (!) 143.1 kg (315 lb 7.7 oz) Intake/Output Summary: (Last 24 hours) Intake/Output Summary (Last 24 hours) at 08/14/2019 06 Last data filed at 08/13/2019 2200 Gross per 24 hour Intake 1998 ml Output 3680 ml Net -1682 ml Physical Exam: General Appearance: No apparent distress, chronically ill appearing, sitting upr ight in bed interactive Skin: no rashes, no ecchymosis HEENT: PERRL, MMM Chest and Lungs: Clear breath sounds anteriorly, no wheezes, respirations non-la bored Cardiovascular: RRR Abdomen: soft, nondistended, non tender to palpation, +BS, no rebound, guarding or rigidity Extremities: warm, L hand edematous --> difficult for him to elevate due to L shoulder pain Neurologic: alert & oriented x3, follows commands, able to move all extremities Artificial airway: None Ventilator/ Respiratory Therapy: No Vent weaning trial: Not applicable Laboratory: LABS: Recent Labs 08/11/19 2357 08/12/19 0409 08/13/19 0511 08/14/19 0330 NA 145 145 144 147 K 4.1 4.2 4.3 3.8 CL 100 100 98 97* CO2 37* 37* 39* 44* GAP 8 8 7 6 BUN 44* 44* 47* 41* CR 1.33* 1.31* 1.14 0.93 GLU 100 89 80 97 CA 8.6 8.8 8.8 8.5 MG -- 1.9 1.9 1.8 PO4 -- -- 3.6 2.6 Recent Labs 08/12/19 0409 08/13/19 0511 08/14/19 0330 WBC 7.2 6.4 6.2 HGB 9.1* 8.3* 8.6* HCT 27.1* 24.7* 25.4* PLTCT 90* 96* 99* Estimated Creatinine Clearance: 114.6 mL/min (based on SCr of 0.93 mg/dL). Vitals: 08/10/19 0438 08/12/19 0400 08/14/19 0538 Weight: (!) 147.4 kg (324 lb 15.3 oz) (!) 144.4 kg (318 lb 5.5 oz) (!) 143.1 kg (315 lb 7.7 oz) No results for input(s): PHART, PO2ART in the last 72 hours. Invalid input(s): PC02A Radiology and Other Diagnostic Procedures Review: Reviewed pertinent studies. ENSATION VICE PRESIDENT Associated attestation - Izzy Yang MD - 08/14/2019 7:34 PM COMPENSATION VICE PRESIDENT ATTESTATION: I personally performed the kumar portions of the E/M visit, discusse d case with Fabiola Pleitez APRN and concur with the documentation of history, ph ysical exam, assessment, and treatment plan as outlined in the note of same date unless otherwise noted. HPI: Mr. Lopez without complaint, no acute events overnight. PHYSICAL EXAM: GENERAL: Alert and interactive HEENT: PERRL EOMI RESPIRATORY: Normal respiratory effort. CARDIAC: RRR ABDOMEN: Soft non distended, obese. EXTREMITIES: Persistent diffuse edema SKIN: No acute lesions NEURO: Normal exam. IMPRESSION AND PLAN: Discharging to SNF today. See discharge summary for detai ls of discharge plan. Total time in discharge planning activities >30 min. Izzy Yang MD * Ramana Urena RN - 08/14/2019 5:39 AM COMPENSATION VICE PRESIDENT Heart Failure Nursing Progress Note Admission Date: 08/07/2019 LOS: 7 days Admission Weight: (!) 154 kg (339 lb 8.1 oz) Most recent weights (inpatient): Vitals: 08/10/19 0438 08/12/19 0400 08/14/19 0538 Weight: (!) 147.4 kg (324 lb 15.3 oz) (!) 144.4 kg (318 lb 5.5 oz) (!) 143.1 kg (315 lb 7.7 oz) Weight change from previous day:-1.3kg Fluid restriction ordered: no Intake/Output Summary: (Last 24 hours) Intake/Output Summary (Last 24 hours) at 08/14/201939 Last data filed at 08/13/2019 2200 Gross per 24 hour Intake 1998 ml Output 3680 ml Net -1682 ml Is patient incontinent No ENSATION VICE PRESIDENT * Win Burdick, PT - 08/13/2019 2:30 PM COMPENSATION VICE PRESIDENT PHYSICAL THERAPY NOTE Name: Kemar Lopez : 1955 Age: 63 y.o. Admission Date: 08/07/2019 LOS: 6 days Patient was unavailable for physical therapy. Tech scheduled for 2:30 time. Pat ient on bedpan for extended period of time. Physical therapy will continue to f ollow and provide intervention as indicated. Therapist: Win Burdick, PT Date: 08/13/2019 ENSATION VICE PRESIDENT * Susanna Eckert APRN - 08/13/2019 11:26 AM COMPENSATION VICE PRESIDENT Pulmonary / Critical Care Progress Note Kemar Lopez Today's Date: 08/13/2019 Admission Date: 08/07/2019 LOS: 6 days Assessment/Plan: Principal Problem: Large pleural effusion Active Problems: Chronic obstructive pulmonary disease with acute exacerbation (HCC) Chronic congestive heart failure (HCC) COPD mixed type (HCC) Type 2 diabetes mellitus (HCC) Pulmonary artery hypertension (HCC) Morbid obesity with BMI of 45.0-49.9, adult (HCC) History of CHF (congestive heart failure) Acute on chronic respiratory failure with hypercapnia (HCC) Chronic heart failure with preserved ejection fraction (HFpEF) (HCC) Hospital Course 63 y/o Mw/ PMH HTN, CAD, HFpEF, paroxysmal a-fib & mixed COPD presented to 4as a transfer from [place], [place] w/acute respiratory failure & concern for empyema, admitted foracuteon chronichypoxic & hypercarbic respiratory failure (baseline 4-5L O2)& w/ large right pleural effusion. He was initially admitted to the CTICU & was intubated upon arrival. A BAL was performed & R chest tube placed. BAL did not show any initial signs of infection, although BAL done at outside facility showed PSAE & Enterobacter cloacae. Chest tube drained about 950mL of pleural fluid upon placement. CT removed 08/10. Patient was eventually weaned from the ventilator to comfort flow oxygen & eventually with diuresis was able to be weaned to baseline oxygen requirement. Remains on meropenemthrough 08/13. Stable to tx to the floor. NEURO Acute Toxic Metabolic Encephalopathy(resolved - 2/ CO2 narcosis/hypoxia/infection - Was encephalopathic upon initial presentation to OSH, intubated immediately. P aCO2 at that time was >100. - Improved w/ treatment of infection - On exam a&o today Depression - Continue WAX MACHINE OPERATOR escitalopram 20mg daily, buspar 10mg BID, lyrica 150mg BID PULM Acute on Chronic Respiratory Failure w/ Hypoxia & Hypercapnia (improved) Uncomplicated Parapneumonic Effusion COPD TERE Pulmonary Hypertension - Acute respiratory 2/2 parapneumonic effusion, decompensated heart failure & PNA - Baseline O2 4-5L - Presented to OSH 08/03 w/ acute encephalopathy, worsening SOB & MARIE. ABG in ED at OSH w/ PaCO2>100-->intubated - CXR 08/03 at OSH w/ possible R sided PNA, started on Zosyn. - Bronchoscopy done 08/05 w/ multiple mucous plugs. BAL performed, + PSAE & Enterobacter cloacae. - Repeat BAL 08/07: negative - Chest tube placed 08/07, appeared transudative, CT removed 08/10. - CXR 08/09 w/ worsening bilateral infiltrates & signs of pulmonary edema - Started diuresis - Was extubated & now O2 weaned to 5L during the day & bipap at night Plan - Continue meropenem through today - Continue BiPAP at night. Patient reports 23/04 settings - Continue Albuterol q4 while awake & PRN, daliresp 500mcg daily, advair, sildenafil 20mg TID, bumex 2mg BID - On discharge switch advair to Breo ellipta (nonform); reports no longer on sym bicort CV Acute on Chronic Decompensated Heart Failure (improved) - NYHA functional classIII - Admission BNP:not performed - WAX MACHINE OPERATOR: amlodipine 5mg daily, Metoprolol XL 12.5mg daily, lasix 40mg BID, atorvas tatin 10mg daily, aspirin 81mg daily, eliquis 5mg BID, lisinopril 10mg daily - Goal Dry Weight:320 lbs per patient report. 339lbs on 08/07. - Last Echo at [facility] in [place] 07/08/19 w/ EF 60%, LVH, aortic sclerosis without stenosis, moderate to severe AR. PA pressure 53mmHg. Plan - Switched lasix to bumex 2mg BID, continue metoprolol XL 12.5mg daily - Continue to hold amlodipine, lisinopril - 2000mg sodium dietary restriction, Fluid Restriction 1.5L/day Paroxysmal Afib - WAX MACHINE OPERATOR metoprolol 25mg q8h, amiodarone 200mg daily, Elisuis - [id number] score 2 - HR 50s-70s Plan - Continue metoprolol, amio & eliquis HTN CAD - WAX MACHINE OPERATOR amlodipine 5mg daily, aspirin 81mg daily, atorvastatin 10mg daily - Last coronary catheterization in 2010, no stents placed previously Plan - Continue WAX MACHINE OPERATOR ASA 81mg, Lipitor 10mg daily, metoprolol XL GI - Last BM 08/11 - Cardiac diet Recurrent GI bleed - Reported recurrent GI bleeds while on apixaban - EGD & colonoscopy 06/28/19 showed gastritis & hiatal hernia & colonic polyps. Repeat 07/11/19 at [facility] showed a nonbleeding sigmoid & ascending colon ulcer. Plan - Will continue apixaban cautiously RENAL - Cr 1.14 - UOP: 2.3L - I/O: -1.1L/24h; -13.4L for admit - Monitor, supportive care ENDO - BG WNL ID Pseudomonas & Enterobacter Right Middle Lobe PNA - BAL 08/05 at OSH with mucus plugs, + Pseudomonas & Enterobacter - Infectious w/u here at [facility] has been negative - Continue meropenem through 08/13 to complete 10d abx HEME Chronic Normoytic Anemia - Hgb 9.4 on admit - Patient w/ reported GI bleed in setting of apixaban use in June, ?July - This AM hgb 8.3 - Monitor FEN - No IVF - Replace lytes PRN - Cardiacdiet PPX: Lines: PIV Drains/Tubes: Ac -->remove DVT: Eliquis GI: Protonix PT/OT: Yes Code Status: Full Code Dispo: Stable to tx to the floor Pt seen & discussed w/ Dr. Jacobo Eckert CAD DESIGNER DRAFTER Pulmonary Critical Care Contact via Voalte or Noribachiatr Pager [phone] pager [phone] Subjective: Family & patient report he is doing much better today. Family thinks he is much less groggy. Asking about discharge plans & I informed them our social media assistant, Sonja will be discussing that with them today. ROS: no SOB/CP/abdominal pain, tolerating a diet, has chronic back, L shoulder p ain & knee pain but not acutely worse Objective: Medications: Scheduled Meds: acetaminophen (TYLENOL) tablet 1,000 mg 1,000 mg Oral Q6H* albuterol 0.5% (PROVENTIL) nebulizer solution 2.5 mg 2.5 mg Inhalation Q4H While Awake & PRN And ipratropium bromide (ATROVENT) 0.02 % nebulizer solution 0.5 mg 0.5 mg Inhalatio n Q4H While Awake & PRN amiodarone (CORDARONE) tablet 200 mg 200 mg Oral QDAY apixaban (ELIQUIS) tablet 5 mg 5 mg Oral BID aspirin EC tablet 81 mg 81 mg Oral QDAY atorvastatin (LIPITOR) tablet 10 mg 10 mg Oral QDAY bumetanide (BUMEX) tablet 2 mg 2 mg Oral BID(9-17) escitalopram oxalate (LEXAPRO) tablet 20 mg 20 mg Oral QDAY fluticasone-salmeterol (ADVAIR DISKUS) 250-50 mcg/dose inhalation disk 1 puff 1 puff Inhalation BID insulin aspart U-100 (NOVOLOG FLEXPEN) injection PEN 0-12 Units 0-12 Units Subcu taneous Q6H* meropenem (MERREM) 1 g in sodium chloride 0.9% (NS) 100 mL IVPB (MB+) 1 g Intrav enous Q8H* metoprolol tartrate (LOPRESSOR) tablet 25 mg 25 mg Oral Q8H pantoprazole DR (PROTONIX) tablet 40 mg 40 mg Oral QDAY(21) polyethylene glycol 3350 (MIRALAX) packet 17 g 1 packet Oral BID pregabalin (LYRICA) capsule 150 mg 150 mg Oral BID roflumilast (DALIRESP) tablet 500 mcg 500 mcg Oral QDAY senna/docusate (SENOKOT-S) tablet 2 tablet 2 tablet Oral BID sildenafil (REVATIO) tablet 20 mg 20 mg Oral TID Continuous Infusions: PRN and Respiratory Meds:fentaNYL citrate PF Q1H PRN, hydrALAZINE Q2H PRN, ondan setron (ZOFRAN) IV Q6H PRN, oxyCODONE Q4H PRN, sodium chloride 0.9% irrigation b ottle Intra-procedure Med, traZODone QHS PRN Vital Signs: Last Filed Vital Signs: 24 Hour Ra nge BP: 114/35 (08/13 400) Temp: 37.6 C (99.7 F) (08/13 0000) Pulse: 53 (08/13 0400) Respirations: 22 PER MINUTE (08/13 0400) SpO2: 98 % (08/130) SpO2 Pulse: 53 (08/130) BP: (100-127)/(31-52) Temp: [37.2 C (98.9 F)-37.6 C (99.7 F)] Pulse: [53-79] Respirations: [20 PER MINUTE-30 PER MINUTE] SpO2: [90 %-98 %] Intensity Pain Scale (Self Report): 7 (08/13/19 0000) Vitals: 08/07/19 1649 08/10/19 0438 08/12/19 0400 Weight: (!) 154 kg (339 lb 8.1 oz) (!) 147.4 kg (324 lb 15.3 oz) (!) 144.4 kg (3 18 lb 5.5 oz) Intake/Output Summary: (Last 24 hours) Intake/Output Summary (Last 24 hours) at 08/13/2019 0613 Last data filed at 08/13/2019 0200 Gross per 24 hour Intake 1158 ml Output 2330 ml Net -1172 ml Physical Exam: General Appearance: No apparent distress, chronically ill appearing sitting upri ght in bed interactive Skin: no rashes, no ecchymosis HEENT: PERRL, MMM Chest and Lungs: Clear breath sounds anteriorly, no wheezes, respirations non-la bored Cardiovascular: RRR Abdomen: soft, nondistended, non tender to palpation, +BS, no rebound, guarding or rigidity Genitourinary: voiding per Ac-->remove Extremities: warm, L hand edematous -->difficult for him to elevate due to L shoulder pain Neurologic: alert & oriented x3, follows commands, able to move all extremities LABS: Recent Labs 08/11/19 0314 08/11/19 2357 08/12/19 0409 NA 145 145 145 K 4.7 4.1 4.2 CL 101 100 100 CO2 36* 37* 37* GAP 8 8 8 BUN 38* 44* 44* CR 1.22 1.33* 1.31* GLU 90 100 89 CA 8.8 8.6 8.8 MG 1.9 -- 1.9 Recent Labs 08/11/19 0314 08/12/19 0409 08/13/19 0511 WBC 11.9* 7.2 6.4 HGB 9.3* 9.1* 8.3* HCT 28.1* 27.1* 24.7* PLTCT 108* 90* 96* Estimated Creatinine Clearance: 81.9 mL/min (A) (based on SCr of 1.31 mg/dL (H)) . Vitals: 08/07/19 1649 08/10/19 0438 08/12/19 0400 Weight: (!) 154 kg (339 lb 8.1 oz) (!) 147.4 kg (324 lb 15.3 oz) (!) 144.4 kg (3 18 lb 5.5 oz) No results for input(s): PHART, PO2ART in the last 72 hours. Invalid input(s): PC02A Radiology and Other Diagnostic Procedures Review: Reviewed pertinent studies. ENSATION VICE PRESIDENT Associated attestation - Izzy Yang MD - 08/13/2019 6:21 PM COMPENSATION VICE PRESIDENT ATTESTATION: I personally performed the kumar portions of the E/M visit, discusse d case with Susanna Lewis APRN and concur with the documentation of history, physical exam, assessment, and treatment plan as outlined in the note of same d ate unless otherwise noted. HPI: Mr. Lopez is much improved today. He states hip pain much improved. PHYSICAL EXAM: GENERAL: Alert and interactive HEENT: PERRL EOMI RESPIRATORY: Normal respiratory effort. CARDIAC: RRR ABDOMEN: Soft non distended, obese. EXTREMITIES: Persistent diffuse edema SKIN: No acute lesions NEURO: Normal exam. IMPRESSION AND PLAN: Today will transition his medication regimen to match his home regimen more closely. Anticipate discharge to SNF in next 2 days. Remainder of plan as outlined in Susanna Eckert's note from today. Izzy Yang MD * Flaquita Dunn, OT - 08/13/2019 10:02 AM COMPENSATION VICE PRESIDENT OCCUPATIONAL THERAPY PROGRESS NOTE Name: Kemar Lopez : 1955 Age: 63 y.o. Admission Date: 08/07/2019 LOS: 6 days Mobility Progressive Mobility Level: Sit on edge of bed Level of Assistance: Assist X2 Time Tolerated: 0-10 minutes Activity Limited By: Weakness Subjective Pertinent Dx per Physician: PMH: COPD, HFpEF, transferred from [place], [place] intubated and sedated with dx of acute on chronic respiratory failure with large right pleural effusion, pseudomonal pneumonia and possible empyema Precautions: Falls;O2 Requirement(5L) Pain / Complaints: Patient agrees to participate in therapy Pain Location: Back(chronic) Objective Psychosocial Status: Willing and Cooperative to Participate Persons Present: Nursing Staff;RehabTechnician;Student Home Living Type of Home: House Home Layout: Stairs to Enter w/ Rails;One Level Bathroom Shower / Tub: Tub/Shower Unit Bathroom Toilet: Standard Home Equipment: Walker;Cane Prior Function Lives With: Daughter Receives Help From: Family Homemaking Assist: Total Assist Other Function Comments: When patient feels well he can perform ADLs modified in dependently but always requires assist for IADLs from family. ADL's Where Assessed: Edge of Bed;Supine, Bed Eating Assist: Stand By Assist Eating Deficits: Setup Bathing Assist: Total Assist(Nursing staff assisting pt with bathing) LE Dressing Assist: Total Assist LE Dressing Deficits: Don/Doff R Sock;Don/Doff L Sock Toileting Assist: Total Assist(ac; incontinent) Toileting Deficits: Perineal Hygiene Functional Transfer Assist: Total Assist(x2) Comment: Pt in bed upon OT/tech/student arrival. Pt completed supine>edge of bed transfer with moderate assistance X2. Pt able to sit at the edge of the bed with stand by assistance. Pt attempted standing using RW with moderate assistance X2 but unable to fully stand. Pt returned to sitting and then to [place] with maximum assistance X2. Pt in bed at end of session. Activity Tolerance Endurance: 2/5 Tolerates 10-20 Minutes Exercise w/Multiple Rests Sitting Balance: 3+/5 Sits w/o UE Support for 30 Seconds or Greater Cognition Overall Cognitive Status: WFL to Adequately Complete Self Care Tasks Safely Cognition Comment: Pt is more alert this date. Assessment Assessment: Decreased ADL Status;Decreased Endurance;Decreased Self-Care Trans;D ecreased High-Level ADLs Prognosis: Good;w/Cont OT s/p Acute Discharge Goal Formulation: Patient Comments: Patient limited by shortness of air, generalized weakness and poor end urance. AM-PAC 6 Clicks Daily Activity Inpatient Putting on and taking off regular lower body clothes?: A Lot Bathing (Including washing, rinsing, drying): A Lot Toileting, which includes using toilet, bedpan, or urinal: Total Putting on and taking off regular upper body clothing: A Lot Taking care of personal grooming such as brushing teeth: A Little Eating meals?: A Little Daily Activity Raw Score: 13 Standardized (t-scale) score: 32.03 CMS 0-100% Score: 63.03 CMS G Code Modifier: CL Plan Progress: Slow Progress, Medical Status Limitations OT Frequency: 5x/week OT Plan for Next Visit: Work on standing, ADLs, and [place] [facility] [place] as able. ADL Goals Patient Will Perform Grooming: in Chair;w/ Stand By Assist Patient Will Perform Toileting: w/ Bedside Commode;w/ Moderate Assist Functional Transfer Goals Pt Will Transfer To Bedside Commode: w/ Minimum Assist OT Discharge Recommendations Recommendation: Inpatient setting, Recommend rehab medicine consult Patient Currently Requires Physical Assist With: All mobility, All personal care ADLs, All home functioning ADLs Patient Currently Requires Equipment: Bath: transfer tub bench Comments: Anticipate pt would be able to tolerate intensive therapy in an inpati ent rehab setting. Therapist: MARTELL Strauss/Key Date: 08/13/2019 ENSATION VICE PRESIDENT * Flaquita Dunn, OT - 08/12/2019 10:50 AM COMPENSATION VICE PRESIDENT OCCUPATIONAL THERAPY NO TREATMENT NOTE Name: Kemar Lopez : 1955 Age: 63 y.o. Admission Date: 08/07/2019 LOS: 5 days The patient was not seen due to: Pt working with PT/tech upon arrival. Pt had j ust transferred back to supine and needed assistance with boosting up in bed and getting cleaned up following toileting. Pt required assist X3 for boost and as sist X2 for rolling and hygiene. OT to follow up as able for therapy. Therapist: Flaquita Dunn OTR/L Date: 08/12/2019 ENSATION VICE PRESIDENT * Win Burdick, PT - 08/12/2019 10:35 AM COMPENSATION VICE PRESIDENT PHYSICAL THERAPY PROGRESS NOTE Name: Kemar Lopez : 1955 Age: 63 y.o. Admission Date: 08/07/2019 LOS: 5 days Mobility Patient Turned: Weight Shifted (Chair/Spinal Precaution) Progressive Mobility Level: Sit on edge of bed Level of Assistance: Assist X3 or more Time Tolerated: 11-30 minutes Activity Limited By: Weakness Subjective Significant hospital events: PMH: COPD, HFpEF, chronic back pain transferred f [facility] [address] [place], [place] intubated and sedated with dx o f acute on chronic respiratory failure with large right pleural effusion, pseudo monal pneumonia and possible empyema, found to have type II MO at OSH Mental / Cognitive Status: Alert;Oriented;Cooperative Persons Present: RehabTechnician;Nursing Staff;Occupational Therapist Pain: Patient has no complaint of pain Comments: 6L 02 NC Ambulation Assist: Independent Mobility at Household Level with Device Patient Owned Equipment: Single Point Cane Home Situation: Lives with Family(daughter, grandchildren) Type of Home: House Entry Stairs: 3-5 Stairs(small steps) Bed Mobility/Transfer Bed Mobility: Rolling: Maximum Assist;x2 People;Assist with Trunk;Assist with B LE Bed Mobility: Supine to Sit: Maximum Assist;x2 People Bed Mobility: Sit to Supine: Maximum Assist;x3 People;Assist with Trunk;Assist w ith B LE Transfer Type: Sit to Stand(Unable to fully stand upright) Transfer: Assistance Level: From;Bed;Maximal Assist;x2 People Transfer: Assistive Device: Roller Walker End Of Activity Status: In Bed;Instructed Patient to Request Assist with Mobilit y;Instructed Patient to Use Call Light(On bedpan; RN notified) Comments: Upon standing patient with bm. Positioned back to supine with 3. Use d air pal to pull up higher on bed. Rolled and cleaned. Patient then stated he needed to have another BM. Rolled and placed on bedpan. RN aware Assessment/Progress Impaired Mobility Due To: Decreased Strength;Impaired Balance;Decreased Activity Tolerance;Deconditioning;Medical Status Limitation Assessment/Progress: Should Improve w/ Continued PT Comments: Patient remains functionally weak and not able to stand; Needing sign ificant assistance from multiple people for bed mobility. Will need placement a t time of discharge AM-PAC 6 Clicks Basic Mobility Inpatient Turning from your back to your side while in a flat bed without using bed rails: Total Moving from lying on your back to sitting on the side of a flatbed without using bedrails : Total Moving to and from a bed to a chair (including a wheelchair): Total Standing up from a chair using your arms (e.g. wheelchair, or bedside chair): To yanely To walk in hospital room: Total Climbing 3-5 steps with a railing: Total Raw Score: 6 Standardized (T-scale) Score: 16.59 Basic Mobility CMS 0-100%: 100 CMS G Code Modifier for Basic Mobility: CN Goals Goal Formulation: With Patient Patient Will Go Supine To/From Sit: w/ Stand By Assist Patient Will Transfer Sit to Stand: w/ Stand By Assist Patient Will Ambulate: 31-50 Feet, w/ Cane, w/ Stand By Assist Plan Treatment Interventions: Mobility Training;Strengthening;Balance Activities Plan Frequency: 5 Days per Week PT Plan for Next Visit: Bed mobility; sitting balance; standing; paramjit transfer to chair PT Discharge Recommendations Recommendation: Inpatient setting Patient Currently Requires Physical Assist With: All mobility Therapist: Win Burdick PT Date: 08/12/2019 ENSATION VICE PRESIDENT * Eliezer Bonner MD - 08/12/2019 7:07 AM COMPENSATION VICE PRESIDENT General Progress Note Name: Kemar Lopez Today's Date: 08/12/2019 Admission Date: 08/07/2019 LOS: 5 days Assessment/Plan: Principal Problem: Large pleural effusion Active Problems: Chronic obstructive pulmonary disease with acute exacerbation (HCC) Chronic congestive heart failure (HCC) COPD mixed type (HCC) Type 2 diabetes mellitus (HCC) Pulmonary artery hypertension (HCC) Morbid obesity with BMI of 45.0-49.9, adult (HCC) History of CHF (congestive heart failure) Acute on chronic respiratory failure with hypercapnia (HCC) Chronic heart failure with preserved ejection fraction (HFpEF) (HCC) On mechanically assisted ventilation (HCC) Kemar Lopez is a 63 y.o. male with active comorbidities of HTN, CAD, HFpEF, par oxysmal a-fib, and mixed COPD, who presented to [facility] on 08/07/2019 as a transfer from [place], [place], with a chief complaint of acute respiratory failure and conc jose angel for empyema, admitted for acute on chronic hypoxic (baseline 4-5 L o2) and h ypercarbic respiratory failure with large right pleural effusion. He was initial ly admitted to the CT ICU and was intubated and sedated upon arrival. A BAL was performed and R chest tube placed. BAL did not show any initial signs of infecti on, although BAL done at outside facility showed Pseudomonas aeruginosa and Ente robacter cloacae. Chest tube drained about 950mL of pleural fluid upon placement . Patient was eventually weaned from the ventilator to comfort flow oxygen, and eventually with diuresis was able to be weaned to baseline. NEURO Acute toxic metabolic encephalopathy - improved - patient grossly encephalopathic upon initial presentation to OSH, intubated im mediately. PaCO2 at that time was >100. - CO2 narcosis vs hypoxia vs infection - improved with antibiotics, chest tube drainage and diuresis Plan: > treatment of PNA as below Depressive mood disorder - denies current SI/HI Plan: > continue WAX MACHINE OPERATOR escitalopram 20mg daily > trazodone 100mg qhs prn CARDIOVASCULAR Acute decompensation of chronic diastolic heart failure - History of chronic diastolic HFpEF, EF: 60%. - NYHA functional class III (marked limitation of physical activity - comfortabl e at rest, but less than ordinary activity causes symptoms of HF e.g., getting d ressed or standing from a sitting position), - ACC Stage C (structural heart disease with prior or current symptoms of HF). - presents with signs of hypervolemia without signs of low flow state. - Admission BNP: not performed - Prior to admission diuretic regimen: Bumex 1mg daily - Goal Dry Weight: 320 lbs per patient report. 339lbs on 08/07. - last Echocardiogram 01/04/19: from OSH showed EF 65-70%, moderate concentric LVH , grade 1 diastolic dysfunction of LF. Moderate to severe LA enlargement. PA pre ssure 45-50mmHg. - Additional echo at [facility] in [place] 07/08/19 with EF 60%, LVH, aortic sclerosis without stenosis, moderate to severe AR. PA pressure 53mmHg. Plan: > Guideline Based Heart Failure Therapies: >HF approved beta blockers: on metoprolol tartrate 25mg q8hrs >GERMAN-I/ARB: was on lisinopril 10mg daily prior to admission, currently held. Continue holding for now. >Angiotensin II Receptor Yeimi Neprilysin Inhibitor: none >Aldosterone antagonist: none >Isordil/hydralazine: none >Diuretics: *08/11 diuresis with bumex 2mg tid and diuril 250mg x2 *08/12 diuresis with bumex 2mg bid >Ivabradine: does not qualify > Goal Output: -2L/24hr. Standing scale daily weight. > BMP once a day. Magnesium level daily. Keep Potassium greater than 4.0 and Magnesium greater than 2.0. > 2000mg sodium dietary restriction, Fluid Restriction 1.5L Yes. Strict I/O. Paroxysmal atrial fibrillation - [id number] score 2 - rate controlled on admission, HR 50s at OSH Plan: > metoprolol 25mg q8hrs > Amiodarone 200mg daily > will cautiously continue Eliquis in setting of recent recurrent GI bleeds HTN CAD - last coronary catheterization in 2010, no stents placed previously Plan: > continue WAX MACHINE OPERATOR ASA 81mg, Lipitor 10mg > metoprolol tartrate 25mg q8hrs > amlodipine 10mg daily PULMONARY Acute on chronic respiratory failure with hypoxia and hypercapnia Uncomplicated parapneumonic effusion COPD TERE - presented to OSH 08/03 with acute encephalopathy, worsening SOB and MARIE. ABG i n ED at OSH with PaO2>100, patient intubated 08/03 in ED. - CXR 08/03 at OSH with possible R sided PNA, started on Zosyn. - bronchoscopy done 08/05 with multiple mucous plugs. BAL performed, + PSAE and E nterobacter cloacae - repeat BAL 08/07 with no signs of infection, gram stain negative - Chest tube placed 08/07, appears transudative - CXR 08/09 with worsening bilateral infiltrates and signs of pulmonary edema Plan: > likely his respiratory failure was multifactorial in the setting of Pseudomonal pneumonia, parapneumonic effusion, acute exacerbation of heart failure and COPD history > continue WAX MACHINE OPERATOR sildenafil 20mg po tid > continue meropenem for pseudomonas + enterobacter pneumonia. Patient has been on antibiotics since 08/03. > treatment of HFpEF exacerbation with bumex 2mg TID > patient chronically on 4-5L O2 supplemental O2 > Trelegy BiPAP at night. Patient reports 23/04 settings. > Michael Meza ordered. Continue WAX MACHINE OPERATOR roflumilast > Pulmonary toilet > chest tube removed 08/10. __ GI Recurrent GI bleed - patient with reported recurrent GI bleeds while on apixaban - EGD & colonoscopy 06/28/19 showed gastritis and hiatal hernia and colonic polyps. Repeat 07/11/19 at [facility] showed a nonbleeding sigmoid and ascending colon ulcer. Plan: > will continue apixaban cautiously, low threshold to stop if further symptoms, Hgb loss /RENAL No acute issues ENDOCRINE Elevated fasting glucose - patient's A1C 5.9% on admission 08/07 Plan: > sliding scale insulin corrective factor __ ID Pseudomonas and Enterobacter Right Middle Lobe PNA - BAL 08/05 at OSH with mucus plugs, + Pseudomonas and Enterobacter on coverage - initially on Zosyn switched to Meropenem and levaquin upon transfer Plan: > continue meropenem 1g q8hrs for Pseudomonal coverage. Plan for 10 day course (started antibiotics at OSH on 08/03 in evening). HEME/ONC Chronic normoytic anemia - MCV 87.8, Hgb 9.4 on admission 08/07 - patient with reported GI bleed in setting of apixaban use in June, ?Novembe r Plan: > daily CBC to monitor > continuing apixaban, low threshold to discontinue with Hgb drop or bleeding symptoms ____ FEN > No IVF > Electrolytes to be replaced prn > cardiac Diet Lines, drains, airway: Peripheral IV x3, indwelling ac placed 08/07/19 Prophylaxis:SCDs, continue WAX MACHINE OPERATOR eliquis Code:full Disposition:Floor status Staffed with Dr. Jacobo Bonner MD, [id number], #[id number] Subjective No events overnight. Daughter at bedside. Patient feels like his breathing is ne ar baseline. He denies any specific concerns or new symptoms. Daughter notes he is quite deconditioned. Can usually perform ADLs independently prior to this hos pitalization. Medications Scheduled Meds: acetaminophen (TYLENOL) tablet 1,000 mg 1,000 mg Oral Q6H* albuterol 0.5% (PROVENTIL) nebulizer solution 2.5 mg 2.5 mg Inhalation Q4H While Awake & PRN And ipratropium bromide (ATROVENT) 0.02 % nebulizer solution 0.5 mg 0.5 mg Inhalatio n Q4H While Awake & PRN amiodarone (CORDARONE) tablet 200 mg 200 mg Oral QDAY apixaban (ELIQUIS) tablet 5 mg 5 mg Oral BID aspirin EC tablet 81 mg 81 mg Oral QDAY atorvastatin (LIPITOR) tablet 10 mg 10 mg Oral QDAY bumetanide (BUMEX) injection 2 mg 2 mg Intravenous TID (04-17-20) escitalopram oxalate (LEXAPRO) tablet 20 mg 20 mg Oral QDAY fluticasone-salmeterol (ADVAIR DISKUS) 250-50 mcg/dose inhalation disk 1 puff 1 puff Inhalation BID insulin aspart U-100 (NOVOLOG FLEXPEN) injection PEN 0-12 Units 0-12 Units Subcu taneous Q6H* meropenem (MERREM) 1 g in sodium chloride 0.9% (NS) 100 mL IVPB (MB+) 1 g Intrav enous Q8H* metoprolol tartrate (LOPRESSOR) tablet 25 mg 25 mg Oral Q8H pantop[address] DR (PROTONIX) tablet 40 mg 40 mg Oral QDAY(21) polyethylene glycol 3350 (MIRALAX) packet 17 g 1 packet Oral BID pregabalin (LYRICA) capsule 150 mg 150 mg Oral BID roflumilast (DALIRESP) tablet 500 mcg 500 mcg Oral QDAY senna/docusate (SENOKOT-S) tablet 2 tablet 2 tablet Oral BID sildenafil (REVATIO) tablet 20 mg 20 mg Oral TID SODIUM CHLORIDE 0.9 % IV SOLP (Cabinet Override) NOW Continuous Infusions: PRN and Respiratory Meds:fentaNYL citrate PF Q1H PRN, hydrALAZINE Q2H PRN, ondan setron (ZOFRAN) IV Q6H PRN, oxyCODONE Q4H PRN, sodium chloride 0.9% irrigation b ottle Intra-procedure Med, traZODone QHS PRN Objective Vital Signs: Last Filed Vital Signs: 24 Jeremy r Range BP: 122/46 (08/12 400) Temp: 37.8 C (100.1 F) (08/12 400) Pulse: 62 (08/12 416) Respirations: 17 PER MINUTE (08/12 416) SpO2: 97 % (08/12 416) SpO2 Pulse: 64 (08/12 400) BP: (106-124)/(39-46) Temp: [36.9 C (98.4 F)-37.8 C (100.1 F)] Pulse: [58-84] Respirations: [17 PER MINUTE-32 PER MINUTE] SpO2: [77 %-98 %] Intensity Pain Scale (Self Report): 10 (08/12/19 0600) Vitals: 08/07/19 1649 08/10/19 0438 08/12/19 0400 Weight: (!) 154 kg (339 lb 8.1 oz) (!) 147.4 kg (324 lb 15.3 oz) (!) 144.4 kg (3 18 lb 5.5 oz) Intake/Output Summary: (Last 24 hours) Intake/Output Summary (Last 24 hours) at 08/12/2019 0707 Last data filed at 08/12/2019 0530 Gross per 24 hour Intake 1140 ml Output 3400 ml Net -2260 ml Stool Occurrence: 1 Physical Exam Constitutional: He is oriented to person, place, and time. He appears well-devel oped and well-nourished. HENT: Head: Normocephalic and atraumatic. Eyes: Pupils are equal, round, and reactive to light. EOM are normal. Cardiovascular: Normal rate and regular rhythm. Exam reveals no gallop and no fr iction rub. No murmur heard. Pulmonary/Chest: Effort normal. He has no wheezes. He has rales (bilateral lower lobes). Abdominal: Soft. Bowel sounds are normal. He exhibits no distension. There is no tenderness. There is no guarding. Musculoskeletal: Normal range of motion. He exhibits edema (1+ to shins bilatera lly). Neurological: He is alert and oriented to person, place, and time. No cranial ne rve deficit. Skin: Skin is warm and dry. Area of ecchymosis on anterior abdomen measuring several inches in diameter. Lab Review 24-hour labs: Results for orders placed or performed during the hospital encounter of 08/07/19 (from the past 24 hour(s)) POC GLUCOSE Collection Time: 08/11/19 8:43 AM Result Value Ref Range Glucose, POC 147 (H) 70 - 100 MG/DL POC GLUCOSE Collection Time: 08/11/19 2:25 PM Result Value Ref Range Glucose, POC 117 (H) 70 - 100 MG/DL POC GLUCOSE Collection Time: 08/11/19 9:01 PM Result Value Ref Range Glucose, POC 114 (H) 70 - 100 MG/DL BASIC METABOLIC PANEL Collection Time: 08/11/19 11:57 PM Result Value Ref Range Sodium 145 137 - 147 MMOL/L Potassium 4.1 3.5 - 5.1 MMOL/L Chloride 100 98 - 110 MMOL/L CO2 37 (H) 21 - 30 MMOL/L Anion Gap 8 3 - 12 Glucose 100 70 - 100 MG/DL Blood Urea Nitrogen 44 (H) 7 - 25 MG/DL Creatinine 1.33 (H) 0.4 - 1.24 MG/DL Calcium 8.6 8.5 - 10.6 MG/DL eGFR Non 54 (L) >60 mL/min eGFR >60 >60 mL/min POC GLUCOSE Collection Time: 08/12/19 4:04 AM Result Value Ref Range Glucose, POC 95 70 - 100 MG/DL BASIC METABOLIC PANEL Collection Time: 08/12/19 4:09 AM Result Value Ref Range Sodium 145 137 - 147 MMOL/L Potassium 4.2 3.5 - 5.1 MMOL/L Chloride 100 98 - 110 MMOL/L CO2 37 (H) 21 - 30 MMOL/L Anion Gap 8 3 - 12 Glucose 89 70 - 100 MG/DL Blood Urea Nitrogen 44 (H) 7 - 25 MG/DL Creatinine 1.31 (H) 0.4 - 1.24 MG/DL Calcium 8.8 8.5 - 10.6 MG/DL eGFR Non 55 (L) >60 mL/min eGFR >60 >60 mL/min CBC AND DIFF Collection Time: 08/12/19 4:09 AM Result Value Ref Range White Blood Cells 7.2 4.5 - 11.0 K/UL RBC 3.03 (L) 4.4 - 5.5 M/UL Hemoglobin 9.1 (L) 13.5 - 16.5 GM/DL Hematocrit 27.1 (L) 40 - 50 % MCV 89.4 80 - 100 FL MCH 29.9 26 - 34 PG MCHC 33.5 32.0 - 36.0 G/DL RDW 17.1 (H) 11 - 15 % Platelet Count 90 (L) 150 - 400 K/UL MPV 7.4 7 - 11 FL Neutrophils 78 (H) 41 - 77 % Lymphocytes 10 (L) 24 - 44 % Monocytes 9 4 - 12 % Eosinophils 2 0 - 5 % Basophils 1 0 - 2 % Absolute Neutrophil Count 5.70 1.8 - 7.0 K/UL Absolute Lymph Count 0.70 (L) 1.0 - 4.8 K/UL Absolute Monocyte Count 0.60 0 - 0.80 K/UL Absolute Eosinophil Count 0.10 0 - 0.45 K/UL Absolute Basophil Count 0.00 0 - 0.20 K/UL MAGNESIUM Collection Time: 08/12/19 4:09 AM Result Value Ref Range Magnesium 1.9 1.6 - 2.6 mg/dL Point of Care Testing (Last 24 hours) Glucose: 89 (08/12/19 1582) POC Glucose (Download): 95 (08/12/19 8177) Radiology and other Diagnostics Review: Pertinent radiology reviewed. Eliezer Bonner MD Pager [phone] ENSATION VICE PRESIDENT Associated attestation - Izzy Yang MD - 08/12/2019 1:53 PM COMPENSATION VICE PRESIDENT ATTESTATION I personally performed the kumar portions of the E/M visit, discussed case with re sident and concur with resident documentation of history, physical exam, assessm ent, and treatment plan unless otherwise noted. STAFF IMPRESSION AND PLAN: Mr. Lopez is overall improving from a respiratory s [place]. He is complaining of hip pain, likely due to immobility. Anticipate discharge to home vs. SNF in next 2 days assuming he continues to imp rove. Staff name: Izzy Yang MD Date: 08/12/2019 * Massiel Ricci RN - 08/11/2019 10:25 PM COMPENSATION VICE PRESIDENT 2100 - Pt requesting to be placed on home Trilogy. Pt's SpO2 dropped to 79-81% a fter placing pt on Trilogy. RT called to bedside. 2129 - RN notified by RT that pt told RT, "I feel like I'm not getting enough ai r on this machine." RT placed pt on hospital's bipap. Pt more comfortable, SpO2 95-96%. Will continue to monitor. ENSATION VICE PRESIDENT * Joann Hammond RT - 08/11/2019 12:51 PM COMPENSATION VICE PRESIDENT RT Adult Assessment Note NAME:Kemar Lopez :1955 AG E: 63 y.o. ADMISSION DATE: 08/07/2019 DAYS ADMITTED: LOS: 4 days RT Treatment Plan: Protocol Plan: Medications Albuterol/Ipratropium: Neb Q4h While Awake & PRN Protocol Plan: Procedures IPPB: Place a nursing order for "IS Q1h While Awake" for any of Lung Expansion i ndicators Oxygen/Humidity: O2 to keep SpO2 > 92% Monitoring: Pulse oximetry Q6h & PRN Additional Comments: Impressions of the patient: stable Vital Signs: Pulse: 77 RR: (!) 32 PER MINUTE SpO2: 92 % O2 Device: High Flow Nasal Cannula Liter Flow: 6 Lpm O2%: Breath Sounds: Respiratory Effort: Non-Labored ENSATION VICE PRESIDENT * Татьяна Mccrary - 08/11/2019 9:35 AM COMPENSATION VICE PRESIDENT ~[id number]: Report received from previous RN. POC reviewed. VS per pt trends. Pt A&Ox4 and follows commands. Call light within reach. Will continue to monitor. View doc flowsheets and MAR for more details. ENSATION VICE PRESIDENT * Hamilton Ariza MD - 08/11/2019 7:31 AM COMPENSATION VICE PRESIDENT General Progress Note Name: Kemar Lopez Today's Date: 08/11/2019 Admission Date: 08/07/2019 LOS: 4 days Assessment/Plan: Principal Problem: Large pleural effusion Active Problems: Chronic obstructive pulmonary disease with acute exacerbation (HCC) Chronic congestive heart failure (HCC) COPD mixed type (HCC) Type 2 diabetes mellitus (HCC) Pulmonary artery hypertension (HCC) Morbid obesity with BMI of 45.0-49.9, adult (HCC) History of CHF (congestive heart failure) Acute on chronic respiratory failure with hypercapnia (HCC) Chronic heart failure with preserved ejection fraction (HFpEF) (HCC) On mechanically assisted ventilation (HCC) Kemar Lopez is a 63 y.o. male with active comorbidities of HTN, CAD, HFpEF, par oxysmal a-fib, and mixed COPD, who presented to [facility] on 08/07/2019 as a transfer from [place], [place], with a chief complaint of acute respiratory failure and conc jose angel for empyema, admitted for acute hypoxic and hypercarbic respiratory failure with large right pleural effusion. He was initially admitted to the CT ICU and w as intubated and sedated upon arrival. A BAL was performed and R chest tube plac ed. BAL did not show any initial signs of infection, although BAL done at [facility] facility showed Pseudomonas aeruginosa and Enterobacter cloacae. Chest tube ained about 950mL of pleural fluid upon placement. Patient was eventually weaned from the ventilator to comfort flow oxygen, and eventually with diuresis was ab le to be weaned to baseline. Interval changes > patient with some dips in o2 requirements overnight but back on baseline 5L > soft BP, MAPs low but systolics at goal >100. Will discontinue amlodipine. Patient has questionable memory of home medications but appears that he may have been on lisinopril, would prefer this and so may look to add this if he tolerates being off amlodipine. > did not diurese well with bumex 2mg TID overnight, will add additional diuresis with thiazide enhancement of loop diuretic today. > continue meropenem to complete 10 day course for PSAE PNA > will need to start working with PT/OT as he becomes euvolemic, antibiotics finish and discharge is targeted. NEURO Acute toxic metabolic encephalopathy - improved - patient grossly encephalopathic upon initial presentation to OSH, intubated im mediately. PaCO2 at that time was >100. - CO2 narcosis vs hypoxia vs infection - improved with antibiotics, chest tube drainage and diuresis Plan: > patient no longer extubated (removed 08/08) > supplemental O2 (off comfort flow since 08/09) to maintain O2 sats >88% > treatment of PNA as below Depressive mood disorder - denies current SI/HI Plan: > continue WAX MACHINE OPERATOR escitalopram 20mg daily > trazodone 100mg qhs prn CARDIOVASCULAR Acute decompensation of chronic diastolic heart failure - History of chronic diastolic HFpEF, EF: 60%. - NYHA functional class III (marked limitation of physical activity - comfortabl e at rest, but less than ordinary activity causes symptoms of HF e.g., getting d ressed or standing from a sitting position), - ACC Stage C (structural heart disease with prior or current symptoms of HF). - presents with signs of hypervolemia without signs of low flow state. - Admission BNP: not performed - Prior to admission diuretic regimen: Bumex 1mg daily - Goal Dry Weight: 320 lbs per patient report. 339lbs on 08/07. - last Echocardiogram 01/04/19: from OSH showed EF 65-70%, moderate concentric LVH , grade 1 diastolic dysfunction of LF. Moderate to severe LA enlargement. PA pre ssure 45-50mmHg. - Additional echo at [facility] in [place] 07/08/19 with EF 60%, LVH, aortic sclerosis without stenosis, moderate to severe AR. PA pressure 53mmHg. Plan: > Guideline Based Heart Failure Therapies: >HF approved beta blockers: on metoprolol tartrate 25mg q8hrs >GERMAN-I/ARB: was on lisinopril 10mg daily prior to admission, currently held. Continue holding for now. >Angiotensin II Receptor Yeimi Neprilysin Inhibitor: none >Aldosterone antagonist: none >Isordil/hydralazine: none >Diuretics: Bumex 2mg TID, will add diuril 250mg dose on 08/11 for diuresis enhancement >Ivabradine: does not qualify > Goal Output: -2L/24hr. Standing scale daily weight. > BMP once a day. Magnesium level daily. Keep Potassium greater than 4.0 and Magnesium greater than 2.0. > 2000mg sodium dietary restriction, Fluid Restriction 1.5L Yes. Strict I/O. Paroxysmal atrial fibrillation - [id number] score 2 - rate controlled on admission, HR 50s at OSH Plan: > metoprolol 25mg q8hrs > Amiodarone 200mg daily > will cautiously continue Eliquis in setting of recent recurrent GI bleeds HTN CAD - last coronary catheterization in 2010, no stents placed previously Plan: > continue WAX MACHINE OPERATOR ASA 81mg, Lipitor 10mg > metoprolol tartrate 25mg q8hrs > amlodipine 10mg daily PULMONARY Acute on chronic respiratory failure with hypoxia and hypercapnia Uncomplicated parapneumonic effusion COPD TERE - presented to OSH 08/03 with acute encephalopathy, worsening SOB and MARIE. ABG i n ED at OSH with PaO2>100, patient intubated 08/03 in ED. - CXR 08/03 at OSH with possible R sided PNA, started on Zosyn. - bronchoscopy done 08/05 with multiple mucous plugs. BAL performed, + PSAE and E nterobacter cloacae - repeat BAL 08/07 with no signs of infection, gram stain negative - Chest tube placed 08/07, appears transudative - CXR 08/09 with worsening bilateral infiltrates and signs of pulmonary edema Plan: > likely his respiratory failure was multifactorial in the setting of Pseudomonal pneumonia, parapneumonic effusion, acute exacerbation of heart failure and COPD history > continue meropenem for pseudomonas + enterobacter pneumonia. Patient has been on antibiotics since 08/03. > treatment of HFpEF exacerbation with bumex 2mg TID > patient chronically on 4-5L O2 supplemental O2 > Trelegy BiPAP at night. Patient reports 23/04 settings. > Michael Meza ordered. Continue WAX MACHINE OPERATOR roflumilast > Pulmonary toilet > chest tube removed 08/10. __ GI Recurrent GI bleed - patient with reported recurrent GI bleeds while on apixaban - EGD & colonoscopy 06/28/19 showed gastritis and hiatal hernia and colonic polyps. Repeat 07/11/19 at [facility] showed a nonbleeding sigmoid and ascending colon ulcer. Plan: > will continue apixaban cautiously, low threshold to stop if further symptoms, Hgb loss /RENAL No acute issues ENDOCRINE Elevated fasting glucose - patient's A1C 5.9% on admission 08/07 Plan: > sliding scale insulin corrective factor __ ID Pseudomonas and Enterobacter Right Middle Lobe PNA - BAL 08/05 at OSH with mucus plugs, + Pseudomonas and Enterobacter on coverage - initially on Zosyn switched to Meropenem and levaquin upon transfer Plan: > continue meropenem 1g q8hrs for Pseudomonal coverage. Plan for 10 day course (started antibiotics at OSH on 08/03 in evening). HEME/ONC Chronic normoytic anemia - MCV 87.8, Hgb 9.4 on admission 08/07 - patient with reported GI bleed in setting of apixaban use in June, ?Novembe r Plan: > daily CBC to monitor > continuing apixaban, low threshold to discontinue with Hgb drop or bleeding symptoms ____ FEN > No IVF > Electrolytes to be replaced prn > cardiac Diet Lines, drains, airway: R CVC to be removed today, 2x PIV, indwelling ac Prophylaxis:SCDs Code:full Disposition:Floor status Patient was discussed with Dr. Marinelli. Hamilton Ariza MD PGY-2, Internal Medicine Pager [phone], or on Voalte Subjective Kemar Lopez is a 63 y.o. male. Chest tube removed yesterday without incident. Patient feels well this morning. Denies any fevers or chills. Having continued c hronic back pain. Review of Systems Constitution: Negative for chills, fever, malaise/fatigue, night sweats and weig ht loss. HENT: Negative for congestion, hearing loss and sore throat. Eyes: Negative for double vision, photophobia and visual disturbance. Cardiovascular: Negative for chest pain, dyspnea on exertion and palpitations. Respiratory: Negative for cough, hemoptysis, shortness of breath and wheezing. Musculoskeletal: Positive for back pain. Negative for joint pain, joint swelling , muscle weakness and myalgias. Gastrointestinal: Negative for abdominal pain, bowel incontinence, constipation, diarrhea, heartburn, hematochezia, melena, nausea and vomiting. Genitourinary: Negative for dysuria, frequency, hematuria and urgency. Neurological: Negative for focal weakness, numbness, seizures and tremors. Psychiatric/Behavioral: The patient does not have insomnia and is not nervous/an xious. Medications Scheduled Meds: acetaminophen (TYLENOL) tablet 1,000 mg 1,000 mg Oral Q6H* albuterol 0.5% (PROVENTIL) nebulizer solution 2.5 mg 2.5 mg Inhalation Q4H & PRN And ipratropium bromide (ATROVENT) 0.02 % nebulizer solution 0.5 mg 0.5 mg Inhalatio n Q4H & PRN amiodarone (CORDARONE) tablet 200 mg 200 mg Oral QDAY amLODIPine (NORVASC) tablet 5 mg 5 mg Oral QDAY apixaban (ELIQUIS) tablet 5 mg 5 mg Oral BID aspirin EC tablet 81 mg 81 mg Oral QDAY atorvastatin (LIPITOR) tablet 10 mg 10 mg Oral QDAY bumetanide (BUMEX) injection 2 mg 2 mg Intravenous TID (04-17-20) escitalopram oxalate (LEXAPRO) tablet 20 mg 20 mg Oral QDAY fluticasone-salmeterol (ADVAIR DISKUS) 250-50 mcg/dose inhalation disk 1 puff 1 puff Inhalation BID insulin aspart U-100 (NOVOLOG FLEXPEN) injection PEN 0-12 Units 0-12 Units Subcu taneous Q6H* lidocaine 1 % (10mg/mL) injection 50 mL 50 mL Injection ONCE meropenem (MERREM) 1 g in sodium chloride 0.9% (NS) 100 mL IVPB (MB+) 1 g Intrav enous Q8H* metoprolol tartrate (LOPRESSOR) tablet 25 mg 25 mg Oral Q8H pantoprazole DR (PROTONIX) tablet 40 mg 40 mg Oral QDAY(21) polyethylene glycol 3350 (MIRALAX) packet 17 g 1 packet Oral BID pregabalin (LYRICA) capsule 150 mg 150 mg Oral BID roflumilast (DALIRESP) tablet 500 mcg 500 mcg Oral QDAY senna/docusate (SENOKOT-S) tablet 2 tablet 2 tablet Oral BID sildenafil (REVATIO) tablet 20 mg 20 mg Oral TID Continuous Infusions: PRN and Respiratory Meds:fentaNYL citrate PF Q1H PRN, hydrALAZINE Q2H PRN, ondan setron (ZOFRAN) IV Q6H PRN, oxyCODONE Q4H PRN, sodium chloride 0.9% irrigation b ottle Intra-procedure Med, traZODone QHS PRN Objective Vital Signs: Last Filed Vital Signs: 24 Jeremy r Range BP: 102/34 (08/11 600) Temp: 37.4 C (99.4 F) (08/11 0400) Pulse: 67 (08/11 600) Respirations: 18 PER MINUTE (08/11 600) SpO2: 95 % (08/11 600) SpO2 Pulse: 65 (08/11 600) BP: (97-149)/(34-55) Temp: [36.7 C (98.1 F)-37.7 C (99.8 F)] Pulse: [58-75] Respirations: [15 PER MINUTE-24 PER MINUTE] SpO2: [89 %-100 %] Intensity Pain Scale (Self Report): 10 (08/11/19 0600) Vitals: 08/07/19 1649 08/10/19 0438 Weight: (!) 154 kg (339 lb 8.1 oz) (!) 147.4 kg (324 lb 15.3 oz) Intake/Output Summary: (Last 24 hours) Intake/Output Summary (Last 24 hours) at 08/11/2019 0731 Last data filed at 08/11/2019 0600 Gross per 24 hour Intake 1159 ml Output 1560 ml Net -401 ml Stool Occurrence: 1 Physical Exam Constitutional: He is oriented to person, place, and time. He appears well-devel oped and well-nourished. HENT: Head: Normocephalic and atraumatic. Eyes: Pupils are equal, round, and reactive to light. EOM are normal. Neck: JVD (7cm) present. Cardiovascular: Normal rate and regular rhythm. Exam reveals no gallop and no fr iction rub. No murmur heard. Pulmonary/Chest: Effort normal. He has no wheezes. He has rales (bilateral lower lobes, improved from previous). Still with decreased bilateral lung sounds but somewhat improved from 08/10 Abdominal: Soft. Bowel sounds are normal. He exhibits no distension. There is no tenderness. There is no guarding. Musculoskeletal: Normal range of motion. He exhibits edema (1+ to knees bilatera lly). Neurological: He is alert and oriented to person, place, and time. No cranial ne rve deficit. Skin: Skin is warm and dry. No rash noted. Lab Review 24-hour labs: Results for orders placed or performed during the hospital encounter of 08/07/19 (from the past 24 hour(s)) POC GLUCOSE Collection Time: 08/10/19 8:37 AM Result Value Ref Range Glucose, POC 76 70 - 100 MG/DL POC GLUCOSE Collection Time: 08/10/19 2:45 PM Result Value Ref Range Glucose, POC 98 70 - 100 MG/DL POC GLUCOSE Collection Time: 08/10/19 8:52 PM Result Value Ref Range Glucose, POC 99 70 - 100 MG/DL POC GLUCOSE Collection Time: 08/11/19 2:14 AM Result Value Ref Range Glucose, POC 100 70 - 100 MG/DL CBC AND DIFF Collection Time: 08/11/19 3:14 AM Result Value Ref Range White Blood Cells 11.9 (H) 4.5 - 11.0 K/UL RBC 3.16 (L) 4.4 - 5.5 M/UL Hemoglobin 9.3 (L) 13.5 - 16.5 GM/DL Hematocrit 28.1 (L) 40 - 50 % MCV 88.8 80 - 100 FL MCH 29.5 26 - 34 PG MCHC 33.2 32.0 - 36.0 G/DL RDW 17.2 (H) 11 - 15 % Platelet Count 108 (L) 150 - 400 K/UL MPV 8.2 7 - 11 FL Neutrophils 78 (H) 41 - 77 % Lymphocytes 10 (L) 24 - 44 % Monocytes 9 4 - 12 % Eosinophils 2 0 - 5 % Basophils 1 0 - 2 % Absolute Neutrophil Count 9.30 (H) 1.8 - 7.0 K/UL Absolute Lymph Count 1.20 1.0 - 4.8 K/UL Absolute Monocyte Count 1.10 (H) 0 - 0.80 K/UL Absolute Eosinophil Count 0.20 0 - 0.45 K/UL Absolute Basophil Count 0.10 0 - 0.20 K/UL BASIC METABOLIC PANEL Collection Time: 08/11/19 3:14 AM Result Value Ref Range Sodium 145 137 - 147 MMOL/L Potassium 4.7 3.5 - 5.1 MMOL/L Chloride 101 98 - 110 MMOL/L CO2 36 (H) 21 - 30 MMOL/L Anion Gap 8 3 - 12 Glucose 90 70 - 100 MG/DL Blood Urea Nitrogen 38 (H) 7 - 25 MG/DL Creatinine 1.22 0.4 - 1.24 MG/DL Calcium 8.8 8.5 - 10.6 MG/DL eGFR Non 60 (L) >60 mL/min eGFR >60 >60 mL/min MAGNESIUM Collection Time: 08/11/19 3:14 AM Result Value Ref Range Magnesium 1.9 1.6 - 2.6 mg/dL Point of Care Testing (Last 24 hours) Glucose: 90 (08/11/19 0314) POC Glucose (Download): 100 (08/11/19213) Radiology and other Diagnostics Review: Pertinent radiology reviewed. HAMILTON ARIZA MD Pager [phone] ENSATION VICE PRESIDENT Associated attestation - Topher Marinelli MD - 08/11/2019 1:46 PM COMPENSATION VICE PRESIDENT ATTESTATION I personally performed the kumar portions of the E/M visit, discussed case with re sident and concur with resident documentation of history, physical exam, assessm ent, and treatment plan unless otherwise noted. Staff name: Topher Marinelli MD Date: 08/11/2019 * Pascual Sharif RN - 08/11/2019 12:26 AM COMPENSATION VICE PRESIDENT 2345 Patient wearing patient-owning trilogy bipap. SpO2 remains 88-91% despite R T and RN interventions. Patients states that this is normal for patient at home given significant COPD history. MD notified. Verbal order for SpO2 goal > 88%. ENSATION VICE PRESIDENT * Hamilton Ariza MD - 08/10/2019 6:20 AM COMPENSATION VICE PRESIDENT General Progress Note Name: Kemar Lopez Today's Date: 08/10/2019 Admission Date: 08/07/2019 LOS: 3 days Assessment/Plan: Principal Problem: Large pleural effusion Active Problems: Chronic obstructive pulmonary disease with acute exacerbation (HCC) Chronic congestive heart failure (HCC) COPD mixed type (HCC) Type 2 diabetes mellitus (HCC) Pulmonary artery hypertension (HCC) Morbid obesity with BMI of 45.0-49.9, adult (HCC) History of CHF (congestive heart failure) Acute on chronic respiratory failure with hypercapnia (HCC) Chronic heart failure with preserved ejection fraction (HFpEF) (HCC) On mechanically assisted ventilation (HCC) Kemar Lopez is a 63 y.o. male with active comorbidities of HTN, CAD, HFpEF, par oxysmal a-fib, and mixed COPD, who presented to [facility] on 08/07/2019 as a transfer from [place], [place], with a chief complaint of acute respiratory failure and conc jose angel for empyema, admitted for acute hypoxic and hypercarbic respiratory failure with large right pleural effusion. He was initially admitted to the CT ICU and w as intubated and sedated upon arrival. A BAL was performed and R chest tube plac ed. BAL did not show any initial signs of infection, although BAL done at [facility] facility showed Pseudomonas aeruginosa and Enterobacter cloacae. Chest tube ained about 950mL of pleural fluid upon placement. Patient was eventually weaned from the ventilator to comfort flow oxygen. Interval changes > patient back on baseline O2 requirements. Effusion improved, will remove chest tube today. > patient with significant diuresis overnight, changed diuresis to Bumex 2mg BID from TID. > continue meropenem to complete 10 day course > patient stable to be floor status today. NEURO Acute toxic metabolic encephalopathy - improved - patient grossly encephalopathic upon initial presentation to OSH, intubated im mediately. PaCO2 at that time was >100. - CO2 narcosis vs hypoxia vs infection - improved with antibiotics, chest tube drainage and diuresis Plan: > patient no longer extubated (removed 08/08) > supplemental O2 (off comfort flow since 08/09) to maintain O2 sats >88% > treatment of PNA as below Depressive mood disorder - denies current SI/HI Plan: > continue WAX MACHINE OPERATOR escitalopram 20mg daily > trazodone 100mg qhs prn CARDIOVASCULAR Acute decompensation of chronic diastolic heart failure - History of chronic diastolic HFpEF, EF: 60%. - NYHA functional class III (marked limitation of physical activity - comfortabl e at rest, but less than ordinary activity causes symptoms of HF e.g., getting d ressed or standing from a sitting position), - ACC Stage C (structural heart disease with prior or current symptoms of HF). - presents with signs of hypervolemia without signs of low flow state. - Admission BNP: not performed - Prior to admission diuretic regimen: Bumex 1mg daily - Goal Dry Weight: 320 lbs per patient report. 339lbs on 08/07. - last Echocardiogram 01/04/19: from OSH showed EF 65-70%, moderate concentric LVH , grade 1 diastolic dysfunction of LF. Moderate to severe LA enlargement. PA pre ssure 45-50mmHg. - Additional echo at [facility] in [place] 07/08/19 with EF 60%, LVH, aortic sclerosis without stenosis, moderate to severe AR. PA pressure 53mmHg. Plan: > Guideline Based Heart Failure Therapies: >HF approved beta blockers: on metoprolol tartrate 25mg q8hrs >GERMAN-I/ARB: was on lisinopril 10mg daily prior to admission, currently held. Continue holding for now. >Angiotensin II Receptor Yeimi Neprilysin Inhibitor: none >Aldosterone antagonist: none >Isordil/hydralazine: none >Diuretics: Bumex 2mg BID >Ivabradine: does not qualify > Goal Output: -2L/24hr. Standing scale daily weight. > BMP once a day. Magnesium level daily. Keep Potassium greater than 4.0 and Magnesium greater than 2.0. > 2000mg sodium dietary restriction, Fluid Restriction 1.5L Yes. Strict I/O. Paroxysmal atrial fibrillation - [id number] score 2 - rate controlled on admission, HR 50s at OSH Plan: > WAX MACHINE OPERATOR metoprolol 25mg q8hrs > Amiodarone 200mg daily > will cautiously continue Eliquis in setting of recent recurrent GI bleeds HTN CAD - last coronary catheterization in 2010, no stents placed previously Plan: > continue WAX MACHINE OPERATOR ASA 81mg, Lipitor 10mg > metoprolol tartrate 25mg q8hrs > amlodipine 10mg daily PULMONARY Acute on chronic respiratory failure with hypoxia and hypercapnia COPD TERE - presented to OSH 08/03 with acute encephalopathy, worsening SOB and MARIE. ABG i n ED at OSH with PaO2>100, patient intubated 08/03 in ED. - CXR 08/03 at OSH with possible R sided PNA, started on Zosyn. - bronchoscopy done 08/05 with multiple mucous plugs. BAL performed, + PSAE and E nterobacter cloacae - repeat BAL 08/07 with no signs of infection, gram stain negative - Chest tube placed 08/07, appears transudative - CXR 08/09 with worsening bilateral infiltrates and signs of pulmonary edema Plan: > likely his respiratory failure was multifactorial in the setting of Pseudomonal pneumonia, parapneumonic effusion, acute exacerbation of heart failure and COPD history > continue meropenem for pseudomonas + enterobacter pneumonia. Patient has been on antibiotics since 08/03. > treatment of HFpEF exacerbation with bumex 2mg BID > patient chronically on 4L O2 supplemental O2 > Trelegy BiPAP at night. Patient reports 23/04 settings. > Michael Meza ordered. Continue WAX MACHINE OPERATOR roflumilast > Pulmonary toilet __ GI Recurrent GI bleed - patient with reported recurrent GI bleeds while on apixaban - EGD & colonoscopy 06/28/19 showed gastritis and hiatal hernia and colonic polyps. Repeat 07/11/19 at [facility] showed a nonbleeding sigmoid and ascending colon ulcer. Plan: > will continue apixaban cautiously, low threshold to stop if further symptoms, Hgb loss /RENAL No acute issues ENDOCRINE Elevated fasting glucose - patient's A1C 5.9% on admission 08/07 Plan: > sliding scale insulin corrective factor __ ID Pseudomonas and Enterobacter Right Middle Lobe PNA - BAL 08/05 at OSH with mucus plugs, + Pseudomonas and Enterobacter on coverage - initially on Zosyn switched to Meropenem and levaquin upon transfer Plan: > continue meropenem 1g q8hrs for Pseudomonal coverage. Plan for 10 day course. HEME/ONC Chronic normoytic anemia - MCV 87.8, Hgb 9.4 on admission 08/07 - patient with reported GI bleed in setting of apixaban use in June, ?Novembe r Plan: > daily CBC to monitor > continuing apixaban, low threshold to discontinue with Hgb drop or bleeding symptoms ____ FEN > No IVF > Electrolytes to be replaced prn > cardiac Diet Lines, drains, airway: R CVC, 2x PIV, indwelling ac, R sided 32 Fr chest tube . Prophylaxis:SCDs Code:full Disposition:Floor status Patient was discussed with Dr. Marinelli. Hamilton Ariza MD PGY-2, Internal Medicine Pager [phone], or on Voalte Subjective Kemar Lopez is a 63 y.o. male. Patient did well overnight. o2 requirements con tinue to decline, patient now close to baseline O2 needs. Breathing continues to improve. Denies any fevers or chills, nausea or vomiting. Review of Systems Constitution: Negative for chills, fever, malaise/fatigue, night sweats and weig ht loss. HENT: Negative for congestion, hearing loss and sore throat. Eyes: Negative for double vision, photophobia and visual disturbance. Cardiovascular: Negative for chest pain, dyspnea on exertion and palpitations. Respiratory: Negative for cough, hemoptysis, shortness of breath and wheezing. Musculoskeletal: Positive for back pain. Negative for joint pain, joint swelling , muscle weakness and myalgias. Gastrointestinal: Negative for abdominal pain, bowel incontinence, constipation, diarrhea, heartburn, hematochezia, melena, nausea and vomiting. Genitourinary: Negative for dysuria, frequency, hematuria and urgency. Neurological: Negative for focal weakness, numbness, seizures and tremors. Psychiatric/Behavioral: The patient does not have insomnia and is not nervous/an xious. Medications Scheduled Meds: acetaminophen (TYLENOL) tablet 1,000 mg 1,000 mg Oral Q6H* albuterol 0.5% (PROVENTIL) nebulizer solution 2.5 mg 2.5 mg Inhalation Q4H & PRN And ipratropium bromide (ATROVENT) 0.02 % nebulizer solution 0.5 mg 0.5 mg Inhalatio n Q4H & PRN amiodarone (CORDARONE) tablet 200 mg 200 mg Oral QDAY amLODIPine (NORVASC) tablet 5 mg 5 mg Oral QDAY apixaban (ELIQUIS) tablet 5 mg 5 mg Oral BID aspirin EC tablet 81 mg 81 mg Oral QDAY atorvastatin (LIPITOR) tablet 10 mg 10 mg Oral QDAY bumetanide (BUMEX) injection 2 mg 2 mg Intravenous TID (04-17-20) escitalopram oxalate (LEXAPRO) tablet 20 mg 20 mg Oral QDAY fluticasone-salmeterol (ADVAIR DISKUS) 250-50 mcg/dose inhalation disk 1 puff 1 puff Inhalation BID insulin aspart U-100 (NOVOLOG FLEXPEN) injection PEN 0-12 Units 0-12 Units Subcu taneous Q6H* meropenem (MERREM) 1 g in sodium chloride 0.9% (NS) 100 mL IVPB (MB+) 1 g Intrav enous Q8H* metoprolol tartrate (LOPRESSOR) tablet 25 mg 25 mg Oral Q8H pantoprazole DR (PROTONIX) tablet 40 mg 40 mg Oral QDAY(21) polyethylene glycol 3350 (MIRALAX) packet 17 g 1 packet Oral BID pregabalin (LYRICA) capsule 150 mg 150 mg Oral BID roflumilast (DALIRESP) tablet 500 mcg 500 mcg Oral QDAY senna/docusate (SENOKOT-S) tablet 2 tablet 2 tablet Oral BID sildenafil (REVATIO) tablet 20 mg 20 mg Oral TID Continuous Infusions: PRN and Respiratory Meds:fentaNYL citrate PF Q1H PRN, hydrALAZINE Q2H PRN, ondan setron (ZOFRAN) IV Q6H PRN, oxyCODONE Q4H PRN, sodium chloride 0.9% irrigation b ottle Intra-procedure Med, traZODone QHS PRN Objective Vital Signs: Last Filed Vital Signs: 24 Jeremy r Range BP: 136/52 (08/10 600) Temp: 37.4 C (99.3 F) (08/10 0400) Pulse: 72 (08/10 600) Respirations: 19 PER MINUTE (08/10 600) SpO2: 94 % (08/10 600) SpO2 Pulse: 68 (08/10 600) Height: 177.8 cm (70") (08/09 1400) BP: (116-145)/(29-64) ABP: (159-179)/(46-56) Temp: [36.9 C (98.4 F)-37.4 C (99.3 F)] Pulse: [59-88] Respirations: [14 PER MINUTE-23 PER MINUTE] SpO2: [86 %-98 %] Intensity Pain Scale (Self Report): 8 (08/10/19 0400) Verbal Pain Description: Moderate Pain (08/09/19 1030) Vitals: 08/07/19 1649 08/10/19 0438 Weight: (!) 154 kg (339 lb 8.1 oz) (!) 147.4 kg (324 lb 15.3 oz) Intake/Output Summary: (Last 24 hours) Intake/Output Summary (Last 24 hours) at 08/10/2019 0620 Last data filed at 08/10/2019 0600 Gross per 24 hour Intake 1670 ml Output 6330 ml Net -4660 ml Stool Occurrence: 1 Physical Exam Constitutional: He is oriented to person, place, and time. He appears well-devel oped and well-nourished. HENT: Head: Normocephalic and atraumatic. Eyes: Pupils are equal, round, and reactive to light. EOM are normal. Neck: JVD (7cm) present. Cardiovascular: Normal rate and regular rhythm. Exam reveals no gallop and no fr iction rub. No murmur heard. Pulmonary/Chest: Effort normal. He has no wheezes. He has rales (bilateral lower lobes). Inspiratory effort normal but decreased breath sounds bilateral bases Abdominal: Soft. Bowel sounds are normal. He exhibits no distension. There is no tenderness. There is no guarding. Musculoskeletal: Normal range of motion. He exhibits edema (1+ to knees bilatera ll). Neurological: He is alert and oriented to person, place, and time. No cranial ne rve deficit. Skin: Skin is warm and dry. No rash noted. Lab Review 24-hour labs: Results for orders placed or performed during the hospital encounter of 08/07/19 (from the past 24 hour(s)) POTASSIUM Collection Time: 08/09/19 1:10 PM Result Value Ref Range Potassium 3.9 3.5 - 5.1 MMOL/L MAGNESIUM Collection Time: 08/09/19 1:10 PM Result Value Ref Range Magnesium 1.9 1.6 - 2.6 mg/dL POC GLUCOSE Collection Time: 08/09/19 1:13 PM Result Value Ref Range Glucose, POC 109 (H) 70 - 100 MG/DL POC GLUCOSE Collection Time: 08/09/19 3:46 PM Result Value Ref Range Glucose, POC 113 (H) 70 - 100 MG/DL BNP (B-TYPE NATRIURETIC PEPTI) Collection Time: 08/09/19 4:00 PM Result Value Ref Range B Type Natriuretic Peptide 877.0 (H) 0 - 100 PG/ML POC GLUCOSE Collection Time: 08/09/19 9:47 PM Result Value Ref Range Glucose, POC 108 (H) 70 - 100 MG/DL CBC AND DIFF Collection Time: 08/10/19 3:40 AM Result Value Ref Range White Blood Cells 7.0 4.5 - 11.0 K/UL RBC 3.19 (L) 4.4 - 5.5 M/UL Hemoglobin 9.4 (L) 13.5 - 16.5 GM/DL Hematocrit 28.6 (L) 40 - 50 % MCV 89.5 80 - 100 FL MCH 29.5 26 - 34 PG MCHC 33.0 32.0 - 36.0 G/DL RDW 17.6 (H) 11 - 15 % Platelet Count 102 (L) 150 - 400 K/UL MPV 7.1 7 - 11 FL Neutrophils 77 41 - 77 % Lymphocytes 10 (L) 24 - 44 % Monocytes 9 4 - 12 % Eosinophils 3 0 - 5 % Basophils 1 0 - 2 % Absolute Neutrophil Count 5.40 1.8 - 7.0 K/UL Absolute Lymph Count 0.70 (L) 1.0 - 4.8 K/UL Absolute Monocyte Count 0.60 0 - 0.80 K/UL Absolute Eosinophil Count 0.20 0 - 0.45 K/UL Absolute Basophil Count 0.10 0 - 0.20 K/UL BASIC METABOLIC PANEL Collection Time: 08/10/19 3:40 AM Result Value Ref Range Sodium 145 137 - 147 MMOL/L Potassium 4.2 3.5 - 5.1 MMOL/L Chloride 100 98 - 110 MMOL/L CO2 38 (H) 21 - 30 MMOL/L Anion Gap 7 3 - 12 Glucose 195 (H) 70 - 100 MG/DL Blood Urea Nitrogen 33 (H) 7 - 25 MG/DL Creatinine 1.24 0.4 - 1.24 MG/DL Calcium 8.9 8.5 - 10.6 MG/DL eGFR Non 59 (L) >60 mL/min eGFR >60 >60 mL/min MAGNESIUM Collection Time: 08/10/19 3:40 AM Result Value Ref Range Magnesium 1.9 1.6 - 2.6 mg/dL POC GLUCOSE Collection Time: 08/10/19 4:38 AM Result Value Ref Range Glucose, POC 162 (H) 70 - 100 MG/DL POC GLUCOSE Collection Time: 08/10/19 8:37 AM Result Value Ref Range Glucose, POC 76 70 - 100 MG/DL Point of Care Testing (Last 24 hours) Glucose: (!) 195 (08/10/19 0340) POC Glucose (Download): (!) 162 (08/10/19 1697) Radiology and other Diagnostics Review: Pertinent radiology reviewed. HAMILTON ARIZA MD Pager [phone] ENSATION VICE PRESIDENT Associated attestation - Topher Marinelli MD - 08/10/2019 12:34 PM COMPENSATION VICE PRESIDENT ATTESTATION I personally performed the kumar portions of the E/M visit, discussed case with re sident and concur with resident documentation of history, physical exam, assessm ent, and treatment plan unless otherwise noted. Staff name: Topher Marinelli MD Date: 08/10/2019 * Katie Allen RN - 08/09/2019 2:22 PM COMPENSATION VICE PRESIDENT Admission skin assessment completed with: TEODORA Rdz (CTI) Pressure injury present on arrival?: No 1. Head/Face/Neck:No 2. Trunk/Back:No 3. Upper Extremities: No 4. Lower Extremities:"Blister on LLE" 5. Pelvic/Coccyx:No 6. Assessed for device associated injury? Yes, none 7. Malnutrition Screening Tool (Nursing Nutrition Assessment) Completed? pending See Doc Flowsheet for additional wound details. INTERVENTIONS: Q2 turn, pressure off loading boots in place ENSATION VICE PRESIDENT * Katie Allen RN - 08/09/2019 2:01 PM COMPENSATION VICE PRESIDENT 1400 Pt transported with two RNs and one RT. Pt monitored with transport. Pt physic al assessment completed and charted. Pt is alert and oriented. Pt complains of chronic back pain. MD notified. Family at bedside. Will continue to monitor pt closely. ENSATION VICE PRESIDENT * Evangelina Caro, PT - 08/09/2019 11:36 AM COMPENSATION VICE PRESIDENT PHYSICAL THERAPY ASSESSMENT Name: Kemar Lopez : 1955 Age: 63 y.o. Admission Date: 08/07/2019 LOS: 2 days Mobility Patient Turned: Supine(chair position in bed) Progressive Mobility Level: Stand Level of Assistance: Assist X2 Assistive Device: Hand Held Subjective Significant hospital events: PMH: COPD, HFpEF, chronic back pain transferred f rom [address] [place], [place] intubated and sedated with dx o f acute on chronic respiratory failure with large right pleural effusion, pseudo monal pneumonia and possible empyema, found to have type II MO at OSH Mental / Cognitive Status: Alert;Oriented;Cooperative Persons Present: Occupational Therapist;Nursing Staff Pain: Patient complains of pain(chronic back pain) Comments: high heated flow nasal cannula 40%FiO2, 50 L - SpO2 goal >88% Ambulation Assist: Independent Mobility at Household Level with Device Patient Owned Equipment: Single Point Cane Home Situation: Lives with Family(daughter, grandchildren) Type of Home: House Entry Stairs: 3-5 Stairs(small steps) The patient notes that he has had multiple hospitalizations over the past few mo nths. He notes he has not been out of bed in approximately 6-7 days. Bed Mobility/Transfer Rolling: Maximal Assist x2 persons (x8 repetitions) Bed Mobility: Supine to Sit: Maximum Assist;x2 People Bed Mobility: Sit to Supine: Maximum Assist;x2 People Transfer Type: Sit to Stand Transfer: Assistance Level: To/From;Bed;Maximal Assist;x2 People(x2 repetitions, moderate assist x2 persons on 3rd sit to stand) Transfer: Assistive Device: Hand Hold Assist In standing, the patient with bowel movement which occurred on each subsequent s tand. Thus patient returned supine and assisted with linen change and pericare. Assessment/Progress Assessment/Progress: The patient would benefit from total body lift transfer to bedside chair. Will look into options for ordering bariatric chair, as the anabella ent not likely to fit comfortably in bedside recliner. The patient would benefit from placement at discharge to address endurance and strength deficits. AM-PAC 6 Clicks Basic Mobility Inpatient Turning from your back to your side while in a flat bed without using bed rails: Total Moving from lying on your back to sitting on the side of a flatbed without using bedrails : Total Moving to and from a bed to a chair (including a wheelchair): Total Standing up from a chair using your arms (e.g. wheelchair, or bedside chair): To yanely To walk in hospital room: Total Climbing 3-5 steps with a railing: Total Raw Score: 6 Standardized (T-scale) Score: 16.59 Basic Mobility CMS 0-100%: 100 CMS G Code Modifier for Basic Mobility: CN Goals Patient Will Go Supine To/From Sit: w/ Stand By Assist Patient Will Transfer Sit to Stand: w/ Stand By Assist Patient Will Ambulate: 31-50 Feet, w/ Cane, w/ Stand By Assist Plan Plan Frequency: 5 Days per Week Plans for progression: Continue to work on bed mobility, sit to stands PT Discharge Recommendations Recommendation: Inpatient setting Therapist Evangelina Caro, PT Date 08/09/2019 ENSATION VICE PRESIDENT * Joann Phoenix - 08/09/2019 10:19 AM COMPENSATION VICE PRESIDENT OCCUPATIONAL THERAPY ASSESSMENT NOTE Name: Kemar Lopez : 1955 Age: 63 y.o. Admission Date: 08/07/2019 LOS: 2 days Mobility Patient Turned: Supine(chair position in bed) Progressive Mobility Level: Stand Level of Assistance: Assist X2 Assistive Device: Hand Held Subjective Pertinent Dx per Physician: PMH: COPD, HFpEF, transferred from [place], [place] intubated and sedated with dx of acute on chronic respiratory failure with large right pleural effusion, pseudomonal pneumonia and possible empyema Precautions: Falls;O2 Requirement(comfort flow 50L@40%FI02; O2 goal of 88) Pain / Complaints: Patient agrees to participate in therapy Pain Location: Back(chronic) Objective Psychosocial Status: Willing and Cooperative to Participate Persons Present: Nursing Staff;Physical Therapist Home Living Type of Home: House Home Layout: Stairs to Enter w/ Rails;One Level Bathroom Shower / Tub: Tub/Shower Unit Bathroom Toilet: Standard Home Equipment: Walker;Cane Prior Function Lives With: Daughter Receives Help From: Family Homemaking Assist: Total Assist Other Function Comments: When patient feels well he can perform ADLs modified in dependently but always requires assist for IADLs from family. ADL's Where Assessed: Edge of Bed Eating Assist: Stand By Assist Eating Deficits: Setup LE Dressing Assist: Maximum Assist LE Dressing Deficits: Don/Doff R Sock;Don/Doff L Sock Toileting Assist: Total Assist Toileting Deficits: Perineal Hygiene Functional Transfer Assist: Maximum Assist(x2) Comment: Assist to lift legs from bed to don socks. Maximum assist x2 for supine <>sit and first two attempts for sit<>stand. Completed third stand with moderate assist of 2. Session ended due to patient actively having a bowel movement. Activity Tolerance Sitting Balance: 3+/5 Sits w/o UE Support for 30 Seconds or Greater Cognition Overall Cognitive Status: WFL to Adequately Complete Self Care Tasks Safely Education Persons Educated: Patient/Family Teaching Methods: Verbal Instruction Patient Response: Verbalized Understanding Topics: Role of OT, Goals for Therapy Goal Formulation: With Patient Assessment Assessment: Decreased ADL Status;Decreased Endurance;Decreased Self-Care Trans;D ecreased High-Level ADLs Prognosis: Good;w/Cont OT s/p Acute Discharge Goal Formulation: Patient Comments: Patient limited by shortness of air, generalized weakness and poor end urance. AM-PAC 6 Clicks Daily Activity Inpatient Putting on and taking off regular lower body clothes?: A Lot Bathing (Including washing, rinsing, drying): A Lot Toileting, which includes using toilet, bedpan, or urinal: Total Putting on and taking off regular upper body clothing: A Lot Taking care of personal grooming such as brushing teeth: A Little Eating meals?: A Little Daily Activity Raw Score: 13 Standardized (t-scale) score: 32.03 CMS 0-100% Score: 63.03 CMS G Code Modifier: CL Plan Progress: Progressing Toward Goals OT Frequency: 5x/week OT Plan for Next Visit: Work on transfers to chair/BSC (order bariatric BSC if p atient able to transfer safely), ADLs in chair ADL Goals Patient Will Perform Grooming: in Chair;w/ Stand By Assist Patient Will Perform Toileting: w/ Bedside Commode;w/ Moderate Assist Functional Transfer Goals Pt Will Transfer To Bedside Commode: w/ Minimum Assist OT Discharge Recommendations Recommendation: Inpatient setting Patient Currently Requires Physical Assist With: All mobility, All personal care ADLs, All home functioning ADLs Patient Currently Requires Equipment: Bath: transfer tub bench Therapist: Joann Daniels OTR/L Date: 08/09/2019 ENSATION VICE PRESIDENT * Mitch Burdick MD - 08/09/2019 10:06 AM COMPENSATION VICE PRESIDENT Cardiothoracic Surgery Critical Care Progress Note Kemar Lopez Today's Date: 08/09/2019 Admission Date: 08/07/2019 LOS: 2 days Procedure: Chest tube placement at ICU bedside: 16214 (CPT) Bronchoscopy With Bronchial Alveolar Lavage - Flexible: 12448 (CPT) POD#: 1 Principal Problem: Large pleural effusion Active Problems: Chronic obstructive pulmonary disease with acute exacerbation (HCC) Chronic congestive heart failure (HCC) COPD mixed type (HCC) Type 2 diabetes mellitus (HCC) Pulmonary artery hypertension (HCC) Morbid obesity with BMI of 45.0-49.9, adult (HCC) History of CHF (congestive heart failure) Acute on chronic respiratory failure with hypercapnia ([facility]) Chronic heart failure with preserved ejection fraction (HFpEF) ([facility]) On mechanically assisted ventilation ([facility]) Assessment/Plan Neuro: Tylenol scheduled, opioids PRN. History of chronic pain. WAX MACHINE OPERATOR cymbalta, ly kendall, trazodone Cardiac: WAX MACHINE OPERATOR metoprolol XL, amlodipine, statin, lasix, amiodarone. Hx HFpEF, MO, CAD. PAF on Eliquis and metoprolol; currently SR. TTE 08/05: LVH, EF 65-70%, gra de 2 diastolic dysfunction, LA and RA dilated, mild-mod AI, mod TR, mod pHTN. Re start amio Respiratory: Intubated 08/03 for acute on chronic hypercapnic respiratory failur e. Extubated 08/08 onto comfort flow. Wean comfort flow for SpO2 >88%. Pneumonia on meropenem as below. Large R pleural effusion s/p chest tube placement with 1L out; last thoracentesis 07/17. S/p treatment for COPD exacerbation. CXR worse today, continue comfort flow and aggressive diuresis. Patient wears 5L O2 at baseline and has h/o TERE with BiPAP at rest/night. Restart WAX MACHINE OPERATOR Sildenafil for pHTN and Breo for COPD GI: CLD. PPI BID. H/o GI bleed requiring transfusions at OSH. Last scope on 06/05 01/20 - colon polyps, internal hemorrhoids, gastritis, hiatal hernia. Heme: Hgb 9. SQ heparin, bASA. Eliquis ID: AF, no leukocytosis. BAL 08/05 + for Pseudomonas aeruginosa and Enterobacter cloacae (sensitive to meropenem/levaquin). S/p 5 days of zosyn. Dc levaquin, con tinue meropenem for total 10 days. Blood cultures 08/07 with NGTD Renal: Cr 1.27 (baseline ~1.3). Lasix WAX MACHINE OPERATOR. Start Bumex 2 mg IV BID. Monitor UOP FEN: Replace lytes PRN. Insulin LDCF Activity: PT/OT Lines: Dc art line Urinary Catheter: Yes Dispo: Cont ICU care Patient seen and discussed with Dr. Lane Burdick MD Anesthesiology, PGY-3 Subjective Mr. Lopez is a 63yo male who was transferred from OSH intubated and sedated wit h acute on chronic resp failure and large right pleural effusion, hx pseudomonal PNA. His PMH is significant for HFpEF, MO, HTN, HLD, MO s/p CABG, Afib, NIDDM, COPD, TERE. He had been on Zosyn for 5d --> Meropenem/LVQ. He was admitted to OSH on 08/03/19 with a PaCO2 of 100mmHg and AMS and intubated, and a NSTEMI type II. No acute events overnight. Extubated 08/08 to comfort flow. Objective Medications: Scheduled Meds: acetaminophen (TYLENOL) tablet 1,000 mg 1,000 mg Oral Q6H* albuterol 0.5% (PROVENTIL) nebulizer solution 2.5 mg 2.5 mg Inhalation Q4H & PRN And ipratropium bromide (ATROVENT) 0.02 % nebulizer solution 0.5 mg 0.5 mg Inhalatio n Q4H & PRN amLODIPine (NORVASC) tablet 5 mg 5 mg Oral QDAY aspirin EC tablet 81 mg 81 mg Oral QDAY atorvastatin (LIPITOR) tablet 10 mg 10 mg Oral QDAY bumetanide (BUMEX) injection 2 mg 2 mg Intravenous BID(05-21) fluticasone-salmeterol (ADVAIR DISKUS) 250-50 mcg/dose inhalation disk 1 puff 1 puff Inhalation BID heparin (porcine) injection 7,500 Units 0.75 mL 7,500 Units Subcutaneous Q8H insulin aspart U-100 (NOVOLOG FLEXPEN) injection PEN 0-12 Units 0-12 Units Subcu taneous Q6H* levoFLOXacin (LEVAQUIN) 750 mg/D5W 150 mL IVPB 750 mg Intravenous Q24H* meropenem (MERREM) 1 g in sodium chloride 0.9% (NS) 100 mL IVPB (MB+) 1 g Intrav enous Q8H* metoprolol tartrate (LOPRESSOR) tablet 25 mg 25 mg Oral Q8H pantoprazole (PROTONIX) injection 40 mg 40 mg Intravenous BID(07-25) polyethylene glycol 3350 (MIRALAX) packet 17 g 1 packet Oral BID pregabalin (LYRICA) capsule 150 mg 150 mg Oral BID roflumilast (DALIRESP) tablet 500 mcg 500 mcg Oral QDAY senna/docusate (SENOKOT-S) tablet 2 tablet 2 tablet Oral BID sildenafil (REVATIO) tablet 20 mg 20 mg Oral TID Continuous Infusions: PRN and Respiratory Meds:fentaNYL citrate PF Q1H PRN, hydrALAZINE Q2H PRN, magne sium chloride PRN OR magnesium sulfate PRN (Cotton Farmer from Rx), metoprolol Q4H PRN, ondansetron (ZOFRAN) IV Q6H PRN, oxyCODONE Q4H PRN, potassium chloride SR PRN OR potassium chloride PRN OR potassium chloride in water PRN (On Jez l from Rx), sodium chloride 0.9% irrigation bottle Intra-procedure Med, traZODon e QHS PRN Vital Signs: Last Filed Vital Signs: 24 Hour Ra nge BP: 119/39 (08/09 900) Temp: 37.1 C (98.8 F) (08/09 800) Pulse: 75 (08/09 900) Respirations: 17 PER MINUTE (08/09 900) SpO2: 94 % (08/09 900) SpO2 Pulse: 75 (08/09 900) BP: (119-169)/(39-67) ABP: (135-211)/(42-65) Temp: [36.6 C (97.9 F)-37.1 C (98.8 F)] Pulse: [62-96] Respirations: [12 PER MINUTE-27 PER MINUTE] SpO2: [82 %-100 %] Vitals: 08/07/19 1649 Weight: (!) 154 kg (339 lb 8.1 oz) Intake/Output Summary (Last 24 hours) at 08/09/2019 1006 Last data filed at 08/09/2019 0900 Gross per 24 hour Intake 1070 ml Output 4445 ml Net -3375 ml Physical Exam Neuro: intubated, awakes easily to name, follows commands Cardiovascular: RRR no rub or murmur Respiratory: decreased breath sounds throughout GI: soft, NT, hypoactive BS Extremities: minimal pitting edema Artificial airway: Endotracheal Tube Vent weaning trial: Per protocol Labs Results for orders placed or performed during the hospital encounter of 08/07/19 (from the past 48 hour(s)) CULTURE-TB (AFB) Collection Time: 08/07/19 5:21 PM # # Low-High Battery Name AFB CULTURE Specimen Description BRONCHIAL ALVEOLAR LAVAGE, RML Special Requests NONE Acid Fast Stain NO ACID FAST BACILLI SEEN Culture Report Status GRAM STAIN Collection Time: 08/07/19 5:21 PM # # Low-High Battery Name GRAM STAIN Specimen Description BRONCHIAL ALVEOLAR LAVAGE, RML Special Requests NONE Gram Stain MODERATE NEUTROPHILS NO ORGANISMS SEEN Report Status FINAL 08/07/2019 CULTURE-RESP,LOWER W/SENSITIVITY Collection Time: 08/07/19 5:21 PM # # Low-High Battery Name LOWER RESP CULTURE Specimen Description BRONCHIAL ALVEOLAR LAVAGE, RML Special Requests NONE Direct Gram Stain MODERATE NEUTROPHILS NO ORGANISMS SEEN Culture NO GROWTH TO DATE Report Status PLEURAL FLUID AMYLASE Collection Time: 08/07/19 5:44 PM # # Low-High Pleural Fluid Amylase 125 U/L PLEURAL FLUID GLUCOSE Collection Time: 08/07/19 5:44 PM # # Low-High Pleural Fluid Glucose 120 (H) 70 - 100 mg/dL PLEURAL FLUID LACTATE DEHYDROGENASE Collection Time: 08/07/19 5:44 PM # # Low-High Pleural Fluid Lactate Dehydrogenase 98 67 - 140 U/L PLEURAL FLUID PH Collection Time: 08/07/19 5:44 PM # # Low-High Pleural Fluid Ph 7.87 (H) 7.60 - 7.66 PLEURAL FLUID TOTAL PROTEIN Collection Time: 08/07/19 5:44 PM # # Low-High Pleural Fluid Total Protein 1.8 (H) <1.1 g/dL CULTURE-WOUND/TISSUE/FLUID(AEROBIC ONLY)W/SENSITIVITY Collection Time: 08/07/19 5:44 PM # # Low-High Battery Name ROUTINE CULTURE Specimen Description PLEURAL FLUID Special Requests NONE Direct Gram Stain FEW NEUTROPHILS NO ORGANISMS SEEN Culture NO GROWTH 2 DAYS Report Status GRAM STAIN Collection Time: 08/07/19 5:44 PM # # Low-High Battery Name GRAM STAIN Specimen Description PLEURAL FLUID Special Requests NONE Gram Stain FEW NEUTROPHILS NO ORGANISMS SEEN Report Status FINAL 08/08/2019 CULTURE-URINE W/SENSITIVITY Collection Time: 08/07/19 5:59 PM # # Low-High Battery Name URINE CULTURE Specimen Description URINE Special Requests NONE Culture NO GROWTH Report Status FINAL 08/08/2019 CULTURE-BLOOD W/SENSITIVITY Collection Time: 08/07/19 6:05 PM # # Low-High Battery Name BLOOD CULTURE Specimen Description BLOOD LEFT WRIST Special Requests NONE Culture NO GROWTH 2 DAYS Report Status CBC AND DIFF Collection Time: 08/07/19 6:34 PM # # Low-High White Blood Cells 7.7 4.5 - 11.0 K/UL RBC 3.22 (L) 4.4 - 5.5 M/UL Hemoglobin 9.4 (L) 13.5 - 16.5 GM/DL Hematocrit 28.3 (L) 40 - 50 % MCV 87.8 80 - 100 FL MCH 29.1 26 - 34 PG MCHC 33.2 32.0 - 36.0 G/DL RDW 17.0 (H) 11 - 15 % Platelet Count 108 (L) 150 - 400 K/UL MPV 7.3 7 - 11 FL Neutrophils 95 (H) 41 - 77 % Lymphocytes 3 (L) 24 - 44 % Monocytes 2 (L) 4 - 12 % Eosinophils 0 0 - 5 % Basophils 0 0 - 2 % Absolute Neutrophil Count 7.30 (H) 1.8 - 7.0 K/UL Absolute Lymph Count 0.20 (L) 1.0 - 4.8 K/UL Absolute Monocyte Count 0.20 0 - 0.80 K/UL Absolute Eosinophil Count 0.00 0 - 0.45 K/UL Absolute Basophil Count 0.00 0 - 0.20 K/UL PROTIME INR (PT) Collection Time: 08/07/19 6:34 PM # # Low-High INR 1.0 0.8 - 1.2 PTT (APTT) Collection Time: 08/07/19 6:34 PM # # Low-High APTT 27.7 24.0 - 36.5 SEC COMPREHENSIVE METABOLIC PANEL Collection Time: 08/07/19 6:34 PM # # Low-High Sodium 146 137 - 147 MMOL/L Potassium 5.0 3.5 - 5.1 MMOL/L Chloride 102 98 - 110 MMOL/L Glucose 104 (H) 70 - 100 MG/DL Blood Urea Nitrogen 36 (H) 7 - 25 MG/DL Creatinine 1.33 (H) 0.4 - 1.24 MG/DL Calcium 9.0 8.5 - 10.6 MG/DL Total Protein 6.0 6.0 - 8.0 G/DL Total Bilirubin 0.3 0.3 - 1.2 MG/DL Albumin 2.9 (L) 3.5 - 5.0 G/DL Alk Phosphatase 75 25 - 110 U/L AST (SGOT) 12 7 - 40 U/L CO2 34 (H) 21 - 30 MMOL/L ALT (SGPT) 11 7 - 56 U/L Anion Gap 10 3 - 12 eGFR Non 54 (L) >60 mL/min eGFR >60 >60 mL/min MAGNESIUM Collection Time: 08/07/19 6:34 PM # # Low-High Magnesium 2.0 1.6 - 2.6 mg/dL HEMOGLOBIN A1C Collection Time: 08/07/19 6:34 PM # # Low-High Hemoglobin A1C 5.9 4.0 - 6.0 % LIPID PROFILE Collection Time: 08/07/19 6:34 PM # # Low-High Cholesterol 186 <200 MG/DL Triglycerides 162 (H) <150 MG/DL HDL 49 >40 MG/DL LDL 69 <100 mg/dL VLDL 32 MG/DL Non HDL Cholesterol 137 MG/DL CULTURE-BLOOD W/SENSITIVITY Collection Time: 08/07/19 6:34 PM # # Low-High Battery Name BLOOD CULTURE Specimen Description BLOOD RIGHT RADIAL ARTERIAL LINE Special Requests NONE Culture NO GROWTH 2 DAYS Report Status BLOOD GASES, ARTERIAL Collection Time: 08/07/19 6:34 PM # # Low-High pH-Arterial 7.44 7.35 - 7.45 pCO2-Arterial 50 (H) 35 - 45 MMHG pO2-Arterial 85 80 - 100 MMHG Base Excess-Arterial 8.6 MMOL/L O2 Sat-Arterial 97.5 95 - 99 % Zubfifjugnr-FRY-Cqw 32.4 (H) 21 - 28 MMOL/L POC GLUCOSE Collection Time: 08/07/19 9:51 PM # # Low-High Glucose, POC 98 70 - 100 MG/DL CBC AND DIFF Collection Time: 08/08/19 4:00 AM # # Low-High White Blood Cells 8.5 4.5 - 11.0 K/UL RBC 3.18 (L) 4.4 - 5.5 M/UL Hemoglobin 9.1 (L) 13.5 - 16.5 GM/DL Hematocrit 27.8 (L) 40 - 50 % MCV 87.4 80 - 100 FL MCH 28.7 26 - 34 PG MCHC 32.8 32.0 - 36.0 G/DL RDW 17.7 (H) 11 - 15 % Platelet Count 125 (L) 150 - 400 K/UL MPV 7.4 7 - 11 FL Neutrophils 87 (H) 41 - 77 % Lymphocytes 5 (L) 24 - 44 % Monocytes 8 4 - 12 % Eosinophils 0 0 - 5 % Basophils 0 0 - 2 % Absolute Neutrophil Count 7.30 (H) 1.8 - 7.0 K/UL Absolute Lymph Count 0.40 (L) 1.0 - 4.8 K/UL Absolute Monocyte Count 0.70 0 - 0.80 K/UL Absolute Eosinophil Count 0.00 0 - 0.45 K/UL Absolute Basophil Count 0.00 0 - 0.20 K/UL BASIC METABOLIC PANEL Collection Time: 08/08/19 4:00 AM # # Low-High Sodium 145 137 - 147 MMOL/L Potassium 4.3 3.5 - 5.1 MMOL/L Chloride 101 98 - 110 MMOL/L CO2 31 (H) 21 - 30 MMOL/L Anion Gap 13 (H) 3 - 12 Glucose 90 70 - 100 MG/DL Blood Urea Nitrogen 38 (H) 7 - 25 MG/DL Creatinine 1.38 (H) 0.4 - 1.24 MG/DL Calcium 8.9 8.5 - 10.6 MG/DL eGFR Non 52 (L) >60 mL/min eGFR >60 >60 mL/min MAGNESIUM Collection Time: 08/08/19 4:00 AM # # Low-High Magnesium 2.0 1.6 - 2.6 mg/dL PTT (APTT) Collection Time: 08/08/19 4:00 AM # # Low-High APTT 26.6 24.0 - 36.5 SEC BLOOD GASES, ARTERIAL Collection Time: 08/08/19 4:00 AM # # Low-High pH-Arterial 7.47 (H) 7.35 - 7.45 pCO2-Arterial 44 35 - 45 MMHG pO2-Arterial 81 80 - 100 MMHG Base Excess-Arterial 7.5 MMOL/L O2 Sat-Arterial 96.2 95 - 99 % Wueqfcpsioc-IDN-Sat 31.2 (H) 21 - 28 MMOL/L POC GLUCOSE Collection Time: 08/08/19 7:27 AM # # Low-High Glucose, POC 85 70 - 100 MG/DL BLOOD GASES, ARTERIAL Collection Time: 08/08/19 11:00 AM # # Low-High pH-Arterial 7.40 7.35 - 7.45 pCO2-Arterial 55 (H) 35 - 45 MMHG pO2-Arterial 86 80 - 100 MMHG Base Excess-Arterial 7.8 MMOL/L O2 Sat-Arterial 97.4 95 - 99 % Ytcxetfvabx-ONH-Kik 31.6 (H) 21 - 28 MMOL/L POC GLUCOSE Collection Time: 08/08/19 1:04 PM # # Low-High Glucose, POC 91 70 - 100 MG/DL POC BLOOD GAS ARTERIAL Collection Time: 08/08/19 1:06 PM # # Low-High PH-ART-POC 7.39 7.35 - 7.45 HSX0-TTA-CMX 60 (H) 35 - 45 MMHG PO2-ART-POC 86 80 - 100 MMHG Base Ex-ART-POC 12.0 MMOL/L O2 Sat-ART-POC 96.0 95 - 99 % Aotpwotyaps-MHR-SET 36.9 (H) 21 - 28 MMOL/L POC HEMATOCRIT Collection Time: 08/08/19 1:06 PM # # Low-High Hemoglobin POC 9.5 (L) 13.5 - 16.5 GM/DL Hematocrit POC 28.0 (L) 40 - 50 % POC POTASSIUM Collection Time: 08/08/19 1:06 PM # # Low-High Potassium-POC 3.7 3.5 - 5.1 MMOL/L POC SODIUM Collection Time: 08/08/19 1:06 PM # # Low-High Sodium-POC 142 137 - 147 MMOL/L POC IONIZED CALCIUM Collection Time: 08/08/19 1:06 PM # # Low-High Ionized Calcium-POC 1.26 1.0 - 1.3 MMOL/L BLOOD GASES, ARTERIAL Collection Time: 08/08/19 2:05 PM # # Low-High pH-Arterial 7.36 7.35 - 7.45 pCO2-Arterial 56 (H) 35 - 45 MMHG pO2-Arterial 239 (H) 80 - 100 MMHG Base Excess-Arterial 5.4 MMOL/L O2 Sat-Arterial 99.5 (H) 95 - 99 % Sfvgwugmuxp-CPN-Gmg 29.4 (H) 21 - 28 MMOL/L POC GLUCOSE Collection Time: 08/08/19 7:00 PM # # Low-High Glucose, POC 87 70 - 100 MG/DL POC GLUCOSE Collection Time: 08/08/19 8:51 PM # # Low-High Glucose, POC 86 70 - 100 MG/DL CBC AND DIFF Collection Time: 08/09/19 3:40 AM # # Low-High White Blood Cells 7.4 4.5 - 11.0 K/UL RBC 3.14 (L) 4.4 - 5.5 M/UL Hemoglobin 9.0 (L) 13.5 - 16.5 GM/DL Hematocrit 27.7 (L) 40 - 50 % MCV 88.3 80 - 100 FL MCH 28.6 26 - 34 PG MCHC 32.3 32.0 - 36.0 G/DL RDW 17.8 (H) 11 - 15 % Platelet Count 113 (L) 150 - 400 K/UL MPV 7.1 7 - 11 FL Neutrophils 75 41 - 77 % Lymphocytes 12 (L) 24 - 44 % Monocytes 10 4 - 12 % Eosinophils 2 0 - 5 % Basophils 1 0 - 2 % Absolute Neutrophil Count 5.60 1.8 - 7.0 K/UL Absolute Lymph Count 0.90 (L) 1.0 - 4.8 K/UL Absolute Monocyte Count 0.70 0 - 0.80 K/UL Absolute Eosinophil Count 0.10 0 - 0.45 K/UL Absolute Basophil Count 0.00 0 - 0.20 K/UL BASIC METABOLIC PANEL Collection Time: 08/09/19 3:40 AM # # Low-High Sodium 147 137 - 147 MMOL/L Potassium 3.7 3.5 - 5.1 MMOL/L Chloride 103 98 - 110 MMOL/L CO2 37 (H) 21 - 30 MMOL/L Anion Gap 7 3 - 12 Glucose 74 70 - 100 MG/DL Blood Urea Nitrogen 33 (H) 7 - 25 MG/DL Creatinine 1.27 (H) 0.4 - 1.24 MG/DL Calcium 9.0 8.5 - 10.6 MG/DL eGFR Non 57 (L) >60 mL/min eGFR >60 >60 mL/min MAGNESIUM Collection Time: 08/09/19 3:40 AM # # Low-High Magnesium 1.8 1.6 - 2.6 mg/dL POC GLUCOSE Collection Time: 08/09/19 8:04 AM # # Low-High Glucose, POC 75 70 - 100 MG/DL BLOOD GASES, ARTERIAL Collection Time: 08/09/19 8:05 AM # # Low-High pH-Arterial 7.39 7.35 - 7.45 pCO2-Arterial 61 (H) 35 - 45 MMHG pO2-Arterial 103 (H) 80 - 100 MMHG Base Excess-Arterial 9.4 MMOL/L O2 Sat-Arterial 97.9 95 - 99 % Hxfwnyrrprj-QTE-Cug 33.2 (H) 21 - 28 MMOL/L POTASSIUM Collection Time: 08/09/19 8:05 AM # # Low-High Potassium 4.0 3.5 - 5.1 MMOL/L MAGNESIUM Collection Time: 08/09/19 8:05 AM # # Low-High Magnesium 2.1 1.6 - 2.6 mg/dL Radiology and Other Diagnostic Procedures Review: Reviewed ENSATION VICE PRESIDENT Associated attestation - Teto Sherman MD - 08/09/2019 11:37 AM COMPENSATION VICE PRESIDENT ATTESTATION This note is associated with the [facility] ICU team note dated today. Date of Service: 08/09/2019 I have seen, personally fully evaluated, and discussed patient with Dr. Gennaro lieberman the [facility] ICU team. I agree with the objective findings and agree with the plan of care as documented by the resident with the exceptions noted. The patient is critically ill with respiratory failure. I spent 50 minutes (excluding time s pent performing or supervising any procedures) providing and personally directin g critical care services including ventilator management, pain mgt, hemodynamic monitoring and management, lab and radiology review, medication review and manag ement, fluid and electrolyte management and coordination of care. Neurologically intact. Chronic pain complaints. Cautious use of narcotics give n respiratory status. Hemodynamics improved. Cont metoprolol 25mg q8hrs. Uptitrate as needed. Liberated from ventilator yesterday. Breathing comfortably today. Remains on h eated high flow NC. Wean for SpO2 >88%. Wears 4LNC at home. Cont nocturnal and PRN BiPAP (sounds like he wears BiPAP often throughout the day in addition to nocturnally). Severe TERE. CXR with more atelectasis and edema today. Likely from withdrawal of positive pressure ventilation. Cont aggressive pulm hygiene. Severe COPD. Cont home inhalers. Able to get medication list last night. Will resume home meds for PH. He continues to clear secretions well. High risk for decompensation. Aggressive diuresis. Once he has been further diuresed his chest tube can be removed. Creat stable. Unknown baseline. Remains volume overloaded although family stat es is much improved from a week ago. Cont aggressive diuresis. Goal 2-3 liters net negative over next 24 hrs. Cont meropenem for Pseudomonas and Enterobacter pneumonia. Will d/c levaquin to day. H/H stable. SQ heparin at 7500. Overall improved but remains critical. He has no surgical issues and has advanc ed lung disease in addition to his reported PH. Will ask pulmonary colleagues a bout accepting his ongoing care. This patient is critically ill with dysfunction of multiple organ systems and is at risk for additional life threatening deterioration. Cont ICU care. * Lyn Moura PA-C - 08/09/2019 9:59 AM COMPENSATION VICE PRESIDENT Cardiothoracic Surgery Critical Care Progress Note Kemar Lopez Today's Date: 08/09/2019 Admission Date: 08/07/2019 LOS: 2 days Procedure: Chest tube placement at ICU bedside: 13761 (CPT) Bronchoscopy With Bronchial Alveolar Lavage - Flexible: 93124 (CPT) POD#: 2 Principal Problem: Large pleural effusion Active Problems: Chronic obstructive pulmonary disease with acute exacerbation (HCC) Chronic congestive heart failure (HCC) COPD mixed type (HCC) Type 2 diabetes mellitus (HCC) Pulmonary artery hypertension (HCC) Morbid obesity with BMI of 45.0-49.9, adult ([facility]) History of CHF (congestive heart failure) Acute on chronic respiratory failure with hypercapnia (HCC) Chronic heart failure with preserved ejection fraction (HFpEF) (HCC) On mechanically assisted ventilation (HCC) Assessment/Plan: Neuro pain controlled, cont current regimen. Cont WAX MACHINE OPERATOR lyrica and lexapro. CV SB/SR, rates 60-70s. BP stable. Continue WAX MACHINE OPERATOR amlodipine and BB. Continue to monitor hemodynamic stability. Cont ASA 81mg and statin. Cont WAX MACHINE OPERATOR sildenafil for pulmonary hypertension. Resume WAX MACHINE OPERATOR amio and Eliquis. Resp Daily CXR bedside interpretation: increased congestion and atelecta sis today, cont to monitor, right CT in place. Will review radiology report. ABG 7.39/61/103/33.2 on comfort flow at 40% 50 LPM. Cont aggressive pulm toilet with WAX MACHINE OPERATOR inhalers. Chest tubes plan: maintain. Renal Monitor BMP, assess for ADDIE. Baseline creatinine 1.0-1.3. -3L/24hrs wi th 2mg IV Bumex x 2 yesterday. Discontinue ac catheter when hemodynamically s table and appropriate. GI - advance diet as tolerated, cont WAX MACHINE OPERATOR PPI. n. ID OSH cultures positive for pseudomonas pneumonia. Continue Levaquin, kiley. Heme Hgb 9.0. Continue SQ heparin for DVT prophylaxis, continue mechanical p rophylaxis. FEN replace Mg and K to minimize the risk of cardiac arrhythmias. Glucose 90 on am labs. Activity increase activity as tolerated, pt to ambulate today. Prophylaxis Review: Lines: Yes; Arterial Line; Indication: Frequent blood draws and Continuous BP monitoring; Location: Radial Central Line; Indication: Med not deliverable peripherally; Type: Internal jug ular Antibiotic Usage: Yes; Infection present or suspected: Lung; Pneumonia VTE: Pharmacological prophylaxis; SQ Heparin and Mechanical prophylaxis; Sequen tial compression device Urinary Catheter: Yes; Retain ac due to: Need for accurate Intake and Output Disposition: Plan as above. Pt is not surgical pt, will ask for transfer to medicine service for further treatment of PNA and pHTN. Pt continues to require ICU care due to h ypoxia requiring comfort flow at 40% and 50 LPM. I have seen, personally fully evaluated, and discussed patient with the critical care attending and cardiothoracic surgeon. The patient is critically ill and at risk for life threatening deterioration. I spent 40 minutes (excluding time spe nt performing or supervising any procedures) providing and personally directing critical care services including hemodynamic monitoring and management, lab and radiology review, medication review and management, fluid and electrolyte manage ment and coordination of care. Lyn Moura PA-C CTS Intensive Care Pager [phone] 08/09/2019 Subjective: HPI: Kemar Lopez is a 63 y.o. male who was transferred on 08/[address] [place], [place] intubated and sedated with dx of acute on chronic r espiratory failure with large right pleural effusion, pseudomonal pneumonia and possible empyema. He has history of HFpEF COPD, HTN, Paroxysmal A fib, NIDDM, CA D. 08/07: CT placed 08/08: diurese, restart WAX MACHINE OPERATOR sildenafil, wean vent/SBT REVIEW OF SYSTEMS: Review of systems not obtained from patient due to patient factors. Objective: Medications: Scheduled Meds: acetaminophen (TYLENOL) tablet 1,000 mg 1,000 mg Oral Q6H* albuterol 0.5% (PROVENTIL) nebulizer solution 2.5 mg 2.5 mg Inhalation Q4H & PRN And ipratropium bromide (ATROVENT) 0.02 % nebulizer solution 0.5 mg 0.5 mg Inhalatio n Q4H & PRN amLODIPine (NORVASC) tablet 5 mg 5 mg Oral QDAY aspirin EC tablet 81 mg 81 mg Oral QDAY atorvastatin (LIPITOR) tablet 10 mg 10 mg Oral QDAY bumetanide (BUMEX) injection 2 mg 2 mg Intravenous BID(05-21) fluticasone-salmeterol (ADVAIR DISKUS) 250-50 mcg/dose inhalation disk 1 puff 1 puff Inhalation BID heparin (porcine) injection 7,500 Units 0.75 mL 7,500 Units Subcutaneous Q8H insulin aspart U-100 (NOVOLOG FLEXPEN) injection PEN 0-12 Units 0-12 Units Subcu taneous Q6H* levoFLOXacin (LEVAQUIN) 750 mg/D5W 150 mL IVPB 750 mg Intravenous Q24H* meropenem (MERREM) 1 g in sodium chloride 0.9% (NS) 100 mL IVPB (MB+) 1 g Intrav enous Q8H* metoprolol tartrate (LOPRESSOR) tablet 25 mg 25 mg Oral Q8H pantoprazole (PROTONIX) injection 40 mg 40 mg Intravenous BID(07-25) polyethylene glycol 3350 (MIRALAX) packet 17 g 1 packet Oral BID pregabalin (LYRICA) capsule 150 mg 150 mg Oral BID roflumilast (DALIRESP) tablet 500 mcg 500 mcg Oral QDAY senna/docusate (SENOKOT-S) tablet 2 tablet 2 tablet Oral BID sildenafil (REVATIO) tablet 20 mg 20 mg Oral TID Continuous Infusions: PRN and Respiratory Meds:fentaNYL citrate PF Q1H PRN, hydrALAZINE Q2H PRN, magne sium chloride PRN OR magnesium sulfate PRN (Cotton Farmer from Rx), metoprolol Q4H PRN, ondansetron (ZOFRAN) IV Q6H PRN, oxyCODONE Q4H PRN, potassium chloride SR PRN OR potassium chloride PRN OR potassium chloride in water PRN (On Jez l from Rx), sodium chloride 0.9% irrigation bottle Intra-procedure Med, traZODon e QHS PRN Vital Signs: Last Filed Vital Signs: 24 Hour Ra nge BP: 119/39 (08/09 900) Temp: 37.1 C (98.8 F) (08/09 800) Pulse: 75 (08/09 900) Respirations: 17 PER MINUTE (08/09 900) SpO2: 94 % (08/09 900) SpO2 Pulse: 75 (08/09 900) BP: (119-169)/(39-67) ABP: (135-211)/(42-65) Temp: [36.6 C (97.9 F)-37.1 C (98.8 F)] Pulse: [61-96] Respirations: [12 PER MINUTE-27 PER MINUTE] SpO2: [82 %-100 %] Vitals: 08/07/19 1649 Weight: (!) 154 kg (339 lb 8.1 oz) Intake/Output Summary: (Last 24 hours) Intake/Output Summary (Last 24 hours) at 08/09/2019 0959 Last data filed at 08/09/2019 0900 Gross per 24 hour Intake 1128.17 ml Output 4545 ml Net -3416.83 ml Physical Exam: Neuro: sedated, STEEL = Cardiovascular: RRR no rub or murmur Respiratory: LS CTA shanthi - diminished in the bases GI: soft, NT, hypoactive BS Extremities: non-pitting Edema Chest Tubes OUTPUT/24 HOURS AIR LEAK PRESENT Pleural 290 no Pertinent Meds: Taking Reason for Not Taking 1. Aspirin yes 2. B-Yeimi yes 3. Statin yes 4. GERMAN/ARB Beta yeimi held due to bradycardia, HR less than 60. Artificial airway: Endotracheal Tube Vent weaning trial: Per protocol LABS: Recent Labs 08/07/19 1834 08/08/19 0400 08/09/19 0340 08/09/19 0805 NA 146 145 147 -- K 5.0 4.3 3.7 4.0 CL 102 101 103 -- CO2 34* 31* 37* -- GAP 10 13* 7 -- BUN 36* 38* 33* -- CR 1.33* 1.38* 1.27* -- GLU 104* 90 74 -- CA 9.0 8.9 9.0 -- ALBUMIN 2.9* -- -- -- MG 2.0 2.0 1.8 2.1 HGBA1C 5.9 -- -- -- Recent Labs 08/07/19 1834 08/08/19 0400 08/09/19 0340 WBC 7.7 8.5 7.4 HGB 9.4* 9.1* 9.0* HCT 28.3* 27.8* 27.7* PLTCT 108* 125* 113* INR 1.0 -- -- PTT 27.7 26.6 -- AST 12 -- -- ALT 11 -- -- ALKPHOS 75 -- -- Estimated Creatinine Clearance: 87.7 mL/min (A) (based on SCr of 1.27 mg/dL (H)) . Vitals: 08/07/19 1649 Weight: (!) 154 kg (339 lb 8.1 oz) Recent Labs 08/08/19 1405 08/09/19 0805 PHART 7.36 7.39 PO2ART 239* 103* Radiology and Other Diagnostic Procedures Review: Reviewed ENSATION VICE PRESIDENT * José Manuel Pino MD - 08/09/2019 7:29 AM COMPENSATION VICE PRESIDENT Extubated on comfort flow. Typically on oxygen at home. Cultures Ngtd. Chest t ube remains serous. CXR increase in opacity bilaterally. Continue pul toilet, diurese. Non surgical. José Manuel Donaldson ENSATION VICE PRESIDENT * Bita Covington RN - 08/09/2019 7:00 AM COMPENSATION VICE PRESIDENT 12-5 @ 2000 Pt on BIPAP overnight, tolerated well, O2 requirements decreased from 60 % to 40% with SpO2 >92%. Pt encouraged movement and exercises, pt can not lift any extremities at this time. Transferred to High flow CO @ 0600. Pt can lift a cup of water, limited ROM. E ncouraged exercises and ADL. ENSATION VICE PRESIDENT * August Fisher MD - 08/08/2019 6:04 PM COMPENSATION VICE PRESIDENT I rounded with the ICU team this morning. After placement of chest tube the pat iekd's right chest expanded nicely. We will work on extubating the patient. Co ntinue antibiotics for the time being. Continue ICU supportive care measures. No plan for any additional surgical intervention. ENSATION VICE PRESIDENT * Domingo Fine, RT - 08/08/2019 2:06 PM COMPENSATION VICE PRESIDENT RT Adult Assessment Note NAME:Kemar Lopez :1955 AG E: 63 y.o. ADMISSION DATE: 08/07/2019 DAYS ADMITTED: LOS: 1 day RT Treatment Plan: Protocol Plan: Medications Albuterol/Ipratropium: Neb Q4h & PRN Protocol Plan: Procedures Vibrating PEP Therapy: Q4h While Awake PEP Therapy: Q4h PEP While Awake PAP: Q4h PAP While Awake IPPB: Place a nursing order for "IS Q1h While Awake" for any of Lung Expansion i ndicators Oxygen/Humidity: O2 to keep SpO2 > 92% Monitoring: Pulse oximetry BID & PRN Vital Signs: Pulse: 81 RR: 12 PER MINUTE SpO2: 96 % O2 Device: Heated High Flow Cannula Liter Flow: 60 Lpm O2%: 100 % Breath Sounds: Decreased;Coarse crackles Respiratory Effort: ENSATION VICE PRESIDENT * Katy Olmstead, TEODORA - 08/08/2019 10:37 AM COMPENSATION VICE PRESIDENT Late entry- discussed discrepancies of art line BP and BP cuff with Hafsa kaur APRN. Verbal order received to use BP cuff as BP measurement and use art li ne for blood draws of ABGs. ENSATION VICE PRESIDENT * Mitch Burdick MD - 08/08/2019 10:11 AM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 postop protocol (4gms IV over 4 hours), recheck Mg level after infusion completed. Electrolyte goals while in ICU: Mg >2.0, iCal > 1.0, K+ >4.0 mEq/L. Insulin gtt per Modified Margie Protocol vs correction factor. Activity: Bedrest until extubated. Dangle early and advance activity as tolerat ed. Early cardiac PT/OT. Dispo: This patient is critically ill with dysfunction of multiple organ system s and is at risk for additional life threatening deterioration. Cont ICU care. Lines: Yes; Arterial Line; Indication: Frequent blood draws and Continuous BP monitoring; Location: Radial Central Line; Indication: Frequent blood draws, Med not deliverable peripherall y, Hemodynamic monitoring and Unable to access IV peripherally; Type: Internal jugular Urinary Catheter: Yes; Retain ac due to: Need for accurate Intake and Outpu t and Acute renal insufficiency or failure __ HISTORY Mr. Lopez is a 63yo male who was transferred from OSH intubated and sedated wit h acute on chronic resp failure and large right pleural effusion, hx pseudomonal PNA. His PMH is significant for HFpEF, MO, HTN, HLD, MO s/p CABG, Afib, NIDDM, COPD, TERE. He had been on Zosyn for 5d --> Meropenem/LVQ. He was admitted to OSH on 08/03/19 with a PaCO2 of 100mmHg and AMS and intubated, and a NSTEMI type II. Prior to transfer he received 15mg versed, 600mg ketamine, and precedex gtt. Surgical History: Procedure Laterality Date HX HEART CATHETERIZATION VASECTOMY No Known Allergies Home Medications Prior to Admission Meds for Inpatient Medications Prior to Admission Medication Sig albuterol 0.083% (PROVENTIL; VENTOLIN) 2.5 mg /3 mL (0.083 %) nebulizer solu tion Inhale 3 mL solution by nebulizer as directed three times daily. amLODIPine (NORVASC) 5 mg tablet Take 5 mg by mouth daily. atorvastatin (LIPITOR) 10 mg tablet Take 10 mg by mouth daily. bacitracin 500 unit/g topical ointment Apply to face BID and PRN. budesonide/formoterol (SYMBICORT HFA) 160/4.5 mcg inhalation Inhale 2 puffs by mouth into the lungs twice daily. cholecalciferol (VITAMIN D-3) 1,000 units tablet Take 1,000 Units by mouth d aily. cyanocobalamin (VITAMIN B-12) 500 mcg tablet Take 500 mcg by mouth daily. duloxetine DR (CYMBALTA) 60 mg capsule Take 60 mg by mouth twice daily. furosemide (LASIX) 40 mg tablet Take 40 mg by mouth twice daily. HYDROcodone/acetaminophen (NORCO) 5/325 mg tablet Take 1 tablet by mouth cata ry 4 hours as needed for Pain lisinopril (PRINIVIL; ZESTRIL) 10 mg tablet Take 10 mg by mouth daily. puguciky-wef-JC-lycopen-lutein (CENTRUM SILVER ULTRA MEN'S) 300-600-300 mcg tab Take 1 tablet by mouth daily. mupirocin (BACTROBAN) 2 % topical ointment Apply topically to affected area twice daily. nystatin (MYCOSTATIN) 100,000 unit/g topical cream Apply to skin folds on ch est/groin BID pregabalin (LYRICA) 150 mg capsule Take 150 mg by mouth twice daily. ranitidine(+) (ZANTAC) 150 mg tablet Take 150 mg by mouth twice daily. senna/docusate (SENOKOT-S) 8.6/50 mg tablet Take two tablets by mouth daily. sodium chloride (SEA MIST) 0.65 % nasal spray Apply one spray to two sprays to each nostril as directed as Needed. traZODone (DESYREL) 100 mg tablet Take 100 mg by mouth at bedtime daily. vitamin A 10,000 unit capsule Take 10,000 Units by mouth daily. Social History Social History Tobacco Use Smoking status: Former Smoker Smokeless tobacco: Never Used Substance Use Topics Alcohol use: No Frequency: Never Drug use: Yes Types: Marijuana OBJECTIVE Vital Signs: Last Filed Vital Signs: 24 Hour Ra nge BP: 137/61 (08/07 2000) ABP: 184/51 (08/07 2015) Temp: 37.2 C (99 F) (08/07 2000) Pulse: 54 (08/07 2015) Respirations: 19 PER MINUTE (08/07 2015) SpO2: 100 % (08/07 2015) Height: 178 cm (70.08") (08/07 1649) Weight: 154 kg (339 lb 8.1 oz) (08/07 1649) BP: (123-137)/(45-61) ABP: (174-184)/(44-53) Temp: [37.2 C (99 F)] Pulse: [51-60] Respirations: [19 PER MINUTE-26 PER MINUTE] SpO2: [96 %-100 %] Intensity Pain Scale (Self Report): (not recorded) Vitals: 08/07/191648 Weight: (!) 154 kg (339 lb 8.1 oz) Artificial airway: Endotracheal Tube Ventilator/ Respiratory Therapy: Yes: Mode: V/AC+ Set Vt (ml): [600 milliliters] Tidal Volume Spont (mL): [592 milliliters-612 milliliters] Set RR: [26 breaths/minutes] Total Respiratory Rate (Breaths/Min): [26 breaths/minutes] Minute Volume (L/min): [15.5 liters/minutes-15.8 liters/minutes] %MVspon: [0 %] O2%: [50 %] PIP Actual: [35 cm H20-38 cm H20] PEEP/CPAP: [10 cm H2O] Physical Exam: General: sedated Neurologic: Sedated, unable to test Heart: S1, S2 normal Lungs: diminished breath sounds R base Abdomen: soft, obese, nontender Extremities: left leg with anterior tibial fluctuant mass, likely abscess Lab Review: Pertinent labs reviewed Point of Care Testing: (Last 24 hours): Glucose: (!) 104 (08/07/19 1834) Radiology and Other Diagnostic Procedures Reviewed Rebecca Armenta MD, MS, CCC/BAG PATCHER 08/07/2019 11:36 PM Medical Sales, Anesthesiology and Critical Care [phone] or available by Voalte ENSATION VICE PRESIDENT * Lyn Patten PHARMD - 08/07/2019 7:43 PM COMPENSATION VICE PRESIDENT Pharmacy Admission Medication History Note Spoke with inpatient pharmacy at [facility] in [place]. Diony hernandez received the following antibiotics prior to transfer: levofloxacin 750 mg - 08/07 at 0930 meropenem 1 g - 124 at 1245 Lyn Patten PHARMD 08/07/2019 ENSATION VICE PRESIDENT * August Fisher MD - 08/07/2019 5:09 PM COMPENSATION VICE PRESIDENT This patient was excepted and transfer from [facility]. The patient is kno wn to . He now presents with respiratory failure, pseudomonas pneumonia, a narda wned right lung with a large right sided plural effusion. This process appears to have been going on for several weeks. We have a comparison CT scan for just a few weeks ago which demonstrates progression of the process. I rounded with the ICU team at the time of admission. We spoke with the patient s daughter who is traveling by car at the moment. We obtain consent to place a right sided chest tube. Will also plan for bronchoscopy to obtain additional cu ltures from the right side. At the present time theres no surgical intervention I can offer the patient b esides a chest tube. The patient will require antibiotics and continued supporti ve care. His respiratory status is tenuous. Will continue ICU level care. He will remain intubated. We will determine advance directives once the family is able to arrive. For the time being continue all supportive measures. ENSATION VICE PRESIDENT * Jackie Castaneda RN - 08/07/2019 5:00 PM COMPENSATION VICE PRESIDENT Patient arrived to room # (HC307) via bed accompanied by transport. Patient verde sferred to the bed with assistance. Bedside safety checks completed. Initial pat ient assessment completed. Refer to flowsheet for details. Admission skin assessment completed with: Mariana Paiz RN Pressure injury present on arrival?: No 1. Head/Face/Neck: No 2. Trunk/Back: No 3. Upper Extremities: No 4. Lower Extremities: No 5. Pelvic/Coccyx: No 6. Assessed for device associated injury? Yes 7. Malnutrition Screening Tool (Nursing Nutrition Assessment) Completed? No See Doc Flowsheet for additional wound details. INTERVENTIONS: ENSATION VICE PRESIDENT * Jackie Castaneda RN - 08/07/2019 4:40 PM COMPENSATION VICE PRESIDENT 1640- Pt arrived per EMS intubated and sedated. Dr. Cali at bedside, R ple ural CT placed, 950 serous output initially. Bronched, culture sent. 1715- ART line placed. Pt alvarado cultured (urine, blood, pleural). ENSATION VICE PRESIDENT documented in this encounter H&P Notes * Hamilton Ariza MD - 08/09/2019 1:47 PM COMPENSATION VICE PRESIDENT Admission History and Physical Examination Name: Kemar Lopez Admission Date: 08/07/2019 Assessment/Plan: Principal Problem: Large pleural effusion Active Problems: Chronic obstructive pulmonary disease with acute exacerbation (HCC) Chronic congestive heart failure (HCC) COPD mixed type (HCC) Type 2 diabetes mellitus (HCC) Pulmonary artery hypertension (HCC) Morbid obesity with BMI of 45.0-49.9, adult (HCC) History of CHF (congestive heart failure) Acute on chronic respiratory failure with hypercapnia (HCC) Chronic heart failure with preserved ejection fraction (HFpEF) (HCC) On mechanically assisted ventilation (HCC) Kemar Lopez is a 63 y.o. male with active comorbidities of HTN, CAD, HFpEF, par oxysmal a-fib, and mixed COPD, who presented to [facility] on 08/07/2019 as a transfer from [place], [place], with a chief complaint of acute respiratory failure and conc jose angel for empyema, admitted for acute hypoxic and hypercarbic respiratory failure with large right pleural effusion. He was initially admitted to the CT ICU and w as intubated and sedated upon arrival. A BAL was performed and R chest tube plac ed. BAL did not show any initial signs of infection, although BAL done at [facility] facility showed Pseudomonas aeruginosa and Enterobacter cloacae. Chest tube ained about 950mL of pleural fluid upon placement. Patient was eventually weaned from the ventilator to comfort flow oxygen. NEURO Acute toxic metabolic encephalopathy - improved - patient grossly encephalopathic upon initial presentation to OSH, intubated im mediately. PaCO2 at that time was >100. - CO2 narcosis vs hypoxia vs infection - improved with antibiotics, chest tube drainage and diuresis Plan: > patient no longer extubated (removed 08/08) > supplemental O2 (off comfort flow since 08/09) to maintain O2 sats >88% > treatment of PNA as below Depressive mood disorder - denies current SI/HI Plan: > continue WAX MACHINE OPERATOR escitalopram 20mg daily > trazodone 100mg qhs prn CARDIOVASCULAR Acute decompensation of chronic diastolic heart failure - History of chronic diastolic HFpEF, EF: 60%. - NYHA functional class III (marked limitation of physical activity - comfortabl e at rest, but less than ordinary activity causes symptoms of HF e.g., getting d ressed or standing from a sitting position), - ACC Stage C (structural heart disease with prior or current symptoms of HF). - presents with signs of hypervolemia without signs of low flow state. - Admission BNP: not performed - Prior to admission diuretic regimen: Bumex 1mg daily - Goal Dry Weight: 320 lbs per patient report. 339lbs on 08/07. - last Echocardiogram 01/04/19: from OSH showed EF 65-70%, moderate concentric LVH , grade 1 diastolic dysfunction of LF. Moderate to severe LA enlargement. PA pre ssure 45-50mmHg. - Additional echo at [facility] in [place] 07/08/19 with EF 60%, LVH, aortic sclerosis without stenosis, moderate to severe AR. PA pressure 53mmHg. Plan: > Guideline Based Heart Failure Therapies: >HF approved beta blockers: on metoprolol tartrate 25mg q8hrs >GERMAN-I/ARB: was on lisinopril 10mg daily prior to admission, currently held >Angiotensin II Receptor Yeimi Neprilysin Inhibitor: none >Aldosterone antagonist: none >Isordil/hydralazine: none >Diuretics: Bumex 2mg TID >Ivabradine: does not qualify > Goal Output: -2L/24hr. Standing scale daily weight. > BMP once a day. Magnesium level daily. Keep Potassium greater than 4.0 and Magnesium greater than 2.0. > 2000mg sodium dietary restriction, Fluid Restriction 1.5L Yes. Strict I/O. Paroxysmal atrial fibrillation - [id number] score 2 - rate controlled on admission, HR 50s at OSH Plan: > WAX MACHINE OPERATOR metoprolol 25mg q8hrs > Amiodarone 200mg daily > will cautiously continue Eliquis in setting of recent recurrent GI bleeds HTN CAD - last coronary catheterization in 2010, no stents placed previously Plan: > continue WAX MACHINE OPERATOR ASA 81mg, Lipitor 10mg > metoprolol tartrate 25mg q8hrs > amlodipine 10mg daily PULMONARY Acute on chronic respiratory failure with hypoxia and hypercapnia COPD TERE - presented to OSH 08/03 with acute encephalopathy, worsening SOB and MARIE. ABG i n ED at OSH with PaO2>100, patient intubated 08/03 in ED. - CXR 08/03 at OSH with possible R sided PNA, started on Zosyn. - bronchoscopy done 08/05 with multiple mucous plugs. BAL performed, + PSAE and E nterobacter cloacae - repeat BAL 08/07 with no signs of infection, gram stain negative - Chest tube placed 08/07, appears transudative - CXR 08/09 with worsening bilateral infiltrates and signs of pulmonary edema Plan: > likely his respiratory failure was multifactorial in the setting of Pseudomonal pneumonia, parapneumonic effusion, acute exacerbation of heart failure and COPD history > continue meropenem for pseudomonas + enterobacter pneumonia. Patient has been on antibiotics since 08/03. > treatment of HFpEF exacerbation with bumex 2mg TID > patient chronically on 4L O2 supplemental O2 > Trelegy BiPAP at night. Patient reports 23/04 settings. > Michael Meza ordered. Continue WAX MACHINE OPERATOR roflumilast > Pulmonary toilet __ GI Recurrent GI bleed - patient with reported recurrent GI bleeds while on apixaban - EGD & colonoscopy 06/28/19 showed gastritis and hiatal hernia and colonic polyps. Repeat 07/11/19 at [facility] showed a nonbleeding sigmoid and ascending colon ulcer. Plan: > will continue apixaban cautiously, low threshold to stop if further symptoms, Hgb loss /RENAL No acute issues ENDOCRINE Elevated fasting glucose - patient's A1C 5.9% on admission 08/07 Plan: > sliding scale insulin corrective factor __ ID Pseudomonas and Enterobacter Right Middle Lobe PNA - BAL 08/05 at OSH with mucus plugs, + Pseudomonas and Enterobacter on coverage - initially on Zosyn switched to Meropenem and levaquin upon transfer Plan: > continue meropenem 1g q8hrs for Pseudomonal coverage. Plan for 10 day course at this time. HEME/ONC Chronic normoytic anemia - MCV 87.8, Hgb 9.4 on admission 08/07 - patient with reported GI bleed in setting of apixaban use in June, ?Novembe r Plan: > daily CBC to monitor > continuing apixaban, low threshold to discontinue with Hgb drop or bleeding symptoms ____ FEN > No IVF > Electrolytes to be replaced prn > cardiac Diet Lines, drains, airway: R CVC, 2x PIV, indwelling ac, R sided 32 Fr chest tube . Prophylaxis: SCDs Code: full Disposition: Admit to MICU Patient was discussed with Dr. Marinelli. Hamilton Ariza MD PGY-2, Internal Medicine Pager [phone], or on Voalte __ Primary Care Physician: Ricky Cleveland Verified Chief Complaint: Acute respiratory failure, altered mental status History of Present Illness: Kemar Lopez is a 63 y.o. male with active comorbidities of HTN, CAD, HFpEF, par oxysmal a-fib, and mixed COPD, who presented to [facility] on 08/07/2019 as a transfer from [place], [place], with a chief complaint of acute respiratory failure and conc jose angel for empyema, admitted for acute hypoxic and hypercarbic respiratory failure with large right pleural effusion. Patient initially presented to [facility] in [place], [place] on 08/03 for shortness of breath. He had been admitted multiple shoshana es over the last one month for similar symptoms. The patient was intubated due t o altered mental status with particular concern for CO2 narcosis with a PaCO2 ov er 100 on admission. BAL was performed at OSH which showed Pseudomonas and Enter obacter cloacae. CXR showed concern for R sided effusion with suspicion for empy mary, and the patient was transferred to [facility]. He was initially admitted to the CT ICU and was intubated and sedated upon arriv al. A BAL was performed and R chest tube placed. BAL performed here did not show any initial signs of infection. Chest tube drained about 950mL of pleural fluid upon placement, with labs consistent with a transudative process. Patient was e ventually weaned from the ventilator to comfort flow oxygen. He was felt more ap propriate for medical ICU service and was thus transferred. Upon encounter, patient is feeling well. He says his breathing has improved sinc e his initial presentation to [facility], although he does not feel it is close t o baseline. Does not have any SOB at baseline but reports he does get dyspnea on exertion with minimal activity. Denies any current orthopnea or PND. Has a Trel egy he wears at home (BiPAP at night) which he says he was compliant with. Says he was compliant with all of his medications as well. Denies fevers, chills, evy sea, vomiting, chest pain, abdominal pain, diarrhea, dysuria or hematuria. Medical History: Diagnosis Date CAD (coronary artery disease) Chronic heart failure with preserved ejection fraction (HFpEF) ([facility]) Chronic renal failure COPD (chronic obstructive pulmonary disease) ([facility]) Depression History of GI bleed HTN (hypertension) Non-insulin dependent type 2 diabetes mellitus ([facility]) Obesity, morbid, BMI 40.0-49.9 ([facility]) TERE treated with BiPAP Paroxysmal atrial fibrillation ([facility]) Surgical History: Procedure Laterality Date Chest tube placement at ICU bedside Right 08/07/2019 Performed by August Fisher MD at [facility] Bronchoscopy With Bronchial Alveolar Lavage - Flexible Right 08/07/2019 Performed by August Fisher MD at [facility] HX HEART CATHETERIZATION VASECTOMY No family history on file. Social History Socioeconomic History Marital status: Spouse name: Not on file Number of children: Not on file Years of education: Not on file Highest education level: Not on file Occupational History Not on file Social Needs Financial resource strain: Not on file Food insecurity: Worry: Not on file Inability: Not on file Transportation needs: Medical: Not on file Non-medical: Not on file Tobacco Use Smoking status: Former Smoker Smokeless tobacco: Never Used Substance and Sexual Activity Alcohol use: No Frequency: Never Drug use: Yes Types: Marijuana Sexual activity: Not on file Lifestyle Physical activity: Days per week: Not on file Minutes per session: Not on file Stress: Not on file Relationships Social connections: Talks on phone: Not on file Gets together: Not on file Attends latter-day service: Not on file Active member of club or organization: Not on file Attends meetings of clubs or organizations: Not on file Relationship status: Not on file Intimate partner violence: Fear of current or ex partner: Not on file Emotionally abused: Not on file Physically abused: Not on file Forced sexual activity: Not on file Other Topics Concern Not on file Social History Narrative Not on file Immunizations (includes history and patient reported): There is no immunization history on file for this patient. Allergies: Patient has no known allergies. Medications: Medications Prior to Admission Medication Sig albuterol 0.083% (PROVENTIL; VENTOLIN) 2.5 mg /3 mL (0.083 %) nebulizer solu tion Inhale 3 mL solution by nebulizer as directed every 4 hours as needed. albuterol sulfate (PROAIR HFA) 90 mcg/actuation aerosol inhaler Inhale 2 puf fs by mouth into the lungs every 4 hours as needed for Wheezing or Shortness of Breath. Shake well before use. amiodarone (CORDARONE) 200 mg tablet Take 200 mg by mouth daily. Take with f ood. amLODIPine (NORVASC) 5 mg tablet Take 5 mg by mouth daily. apixaban (ELIQUIS) 5 mg tablet Take 5 mg by mouth twice daily. aspirin EC 81 mg tablet Take 81 mg by mouth daily. Take with food. atorvastatin (LIPITOR) 10 mg tablet Take 10 mg by mouth daily. budesonide/formoterol (SYMBICORT HFA) 160/4.5 mcg inhalation Inhale 2 puffs by mouth into the lungs twice daily. busPIRone (BUSPAR) 10 mg tablet Take 10 mg by mouth twice daily. cholecalciferol (VITAMIN D-3) 1,000 units tablet Take 1,000 Units by mouth d aily. cyanocobalamin (VITAMIN B-12) 500 mcg tablet Take 500 mcg by mouth daily. escitalopram oxalate (LEXAPRO) 20 mg tablet Take 20 mg by mouth daily. fluticasone furoate-vilanterol(+) (BREO ELLIPTA) 200-25 mcg inhalation disk Inhale 1 puff by mouth into the lungs daily. furosemide (LASIX) 40 mg tablet Take 40 mg by mouth twice daily. HYDROcodone/acetaminophen (NORCO) 5/325 mg tablet Take 1 tablet by mouth cata ry 4 hours as needed for Pain lisinopril (PRINIVIL; ZESTRIL) 10 mg tablet Take 10 mg by mouth daily. metoprolol XL (TOPROL XL) 25 mg extended release tablet Take 12.5 mg by mout h daily. fpneqzdx-pgv-FO-lycopen-lutein (CENTRUM SILVER ULTRA MEN'S) 300-600-300 mcg tab Take 1 tablet by mouth daily. pantoprazole DR (PROTONIX) 40 mg tablet Take 40 mg by mouth daily. pregabalin (LYRICA) 150 mg capsule Take 150 mg by mouth twice daily. roflumilast (DALIRESP) 500 mcg tablet Take 500 mcg by mouth daily. senna/docusate (SENOKOT-S) 8.6/50 mg tablet Take two tablets by mouth daily. (Patient taking differently: Take 2 tablets by mouth as Needed.) sildenafil (REVATIO) 20 mg tablet Take 20 mg by mouth three times daily. sodium chloride (SEA MIST) 0.65 % nasal spray Apply one spray to two sprays to each nostril as directed as Needed. vitamin A 10,000 unit capsule Take 10,000 Units by mouth daily. Review of Systems Constitution: Negative for chills, fever, malaise/fatigue, night sweats and weig ht loss. HENT: Negative for congestion, hearing loss and sore throat. Eyes: Negative for double vision, photophobia and visual disturbance. Cardiovascular: Positive for dyspnea on exertion. Negative for chest pain, ortho pnea, palpitations and paroxysmal nocturnal dyspnea. Respiratory: Positive for shortness of breath. Negative for cough, hemoptysis an d wheezing. Musculoskeletal: Positive for back pain. Negative for joint pain, joint swelling , muscle weakness and myalgias. Gastrointestinal: Negative for abdominal pain, bowel incontinence, constipation, diarrhea, heartburn, hematochezia, melena, nausea and vomiting. Genitourinary: Negative for dysuria, frequency, hematuria and urgency. Neurological: Negative for focal weakness, numbness, seizures and tremors. Psychiatric/Behavioral: The patient does not have insomnia and is not nervous/an xious. Physical Exam Constitutional: He is oriented to person, place, and time. He appears well-devel oped and well-nourished. HENT: Head: Normocephalic and atraumatic. Mouth/Throat: No oropharyngeal exudate. Eyes: Pupils are equal, round, and reactive to light. EOM are normal. Neck: JVD (8cm H2O on left) present. Cardiovascular: Normal rate and regular rhythm. Exam reveals no gallop and no fr iction rub. No murmur heard. Pulmonary/Chest: Effort normal and breath sounds normal. He has no wheezes. He h as no rales. Abdominal: Soft. Bowel sounds are normal. He exhibits no distension. There is no tenderness. There is no guarding. obsese abdomen, organomegaly difficult to assess Musculoskeletal: Normal range of motion. He exhibits edema (1+ pitting edema to knees BLE, trace up to hips in dependent areas BLE). He exhibits no tenderness. Lymphadenopathy: He has no cervical adenopathy. Neurological: He is alert and oriented to person, place, and time. No cranial ne rve deficit. Skin: Skin is warm and dry. No rash noted. Vital Signs: Last Filed In 24 Hours Vital Signs: 24 Hour Range BP: 134/45 (08/09 1300) Temp: 37.1 C (98.8 F) (08/09 0800) Pulse: 69 (08/09 1300) Respirations: 21 PER MINUTE (08/09 1300) SpO2: 91 % (08/09 1300) SpO2 Pulse: 70 (08/09 1200) BP: (119-149)/(39-58) ABP: (135-190)/(42-62) Temp: [36.6 C (97.9 F)-37.1 C (98.8 F)] Pulse: [62-88] Respirations: [13 PER MINUTE-23 PER MINUTE] SpO2: [86 %-100 %] Verbal Pain Description: Moderate Pain (08/09/19 1030) Lab/Radiology/Other Diagnostic Tests: 24-hour labs: Results for orders placed or performed during the hospital encounter of 08/07/19 (from the past 24 hour(s)) BLOOD GASES, ARTERIAL Collection Time: 08/08/19 2:05 PM Result Value Ref Range pH-Arterial 7.36 7.35 - 7.45 pCO2-Arterial 56 (H) 35 - 45 MMHG pO2-Arterial 239 (H) 80 - 100 MMHG Base Excess-Arterial 5.4 MMOL/L O2 Sat-Arterial 99.5 (H) 95 - 99 % Hwlxvqmworj-BBJ-Dpg 29.4 (H) 21 - 28 MMOL/L POC GLUCOSE Collection Time: 08/08/19 7:00 PM Result Value Ref Range Glucose, POC 87 70 - 100 MG/DL POC GLUCOSE Collection Time: 08/08/19 8:51 PM Result Value Ref Range Glucose, POC 86 70 - 100 MG/DL CBC AND DIFF Collection Time: 08/09/19 3:40 AM Result Value Ref Range White Blood Cells 7.4 4.5 - 11.0 K/UL RBC 3.14 (L) 4.4 - 5.5 M/UL Hemoglobin 9.0 (L) 13.5 - 16.5 GM/DL Hematocrit 27.7 (L) 40 - 50 % MCV 88.3 80 - 100 FL MCH 28.6 26 - 34 PG MCHC 32.3 32.0 - 36.0 G/DL RDW 17.8 (H) 11 - 15 % Platelet Count 113 (L) 150 - 400 K/UL MPV 7.1 7 - 11 FL Neutrophils 75 41 - 77 % Lymphocytes 12 (L) 24 - 44 % Monocytes 10 4 - 12 % Eosinophils 2 0 - 5 % Basophils 1 0 - 2 % Absolute Neutrophil Count 5.60 1.8 - 7.0 K/UL Absolute Lymph Count 0.90 (L) 1.0 - 4.8 K/UL Absolute Monocyte Count 0.70 0 - 0.80 K/UL Absolute Eosinophil Count 0.10 0 - 0.45 K/UL Absolute Basophil Count 0.00 0 - 0.20 K/UL BASIC METABOLIC PANEL Collection Time: 08/09/19 3:40 AM Result Value Ref Range Sodium 147 137 - 147 MMOL/L Potassium 3.7 3.5 - 5.1 MMOL/L Chloride 103 98 - 110 MMOL/L CO2 37 (H) 21 - 30 MMOL/L Anion Gap 7 3 - 12 Glucose 74 70 - 100 MG/DL Blood Urea Nitrogen 33 (H) 7 - 25 MG/DL Creatinine 1.27 (H) 0.4 - 1.24 MG/DL Calcium 9.0 8.5 - 10.6 MG/DL eGFR Non 57 (L) >60 mL/min eGFR >60 >60 mL/min MAGNESIUM Collection Time: 08/09/19 3:40 AM Result Value Ref Range Magnesium 1.8 1.6 - 2.6 mg/dL POC GLUCOSE Collection Time: 08/09/19 8:04 AM Result Value Ref Range Glucose, POC 75 70 - 100 MG/DL BLOOD GASES, ARTERIAL Collection Time: 08/09/19 8:05 AM Result Value Ref Range pH-Arterial 7.39 7.35 - 7.45 pCO2-Arterial 61 (H) 35 - 45 MMHG pO2-Arterial 103 (H) 80 - 100 MMHG Base Excess-Arterial 9.4 MMOL/L O2 Sat-Arterial 97.9 95 - 99 % Toxyaoscwrg-UBN-Ktv 33.2 (H) 21 - 28 MMOL/L POTASSIUM Collection Time: 08/09/19 8:05 AM Result Value Ref Range Potassium 4.0 3.5 - 5.1 MMOL/L MAGNESIUM Collection Time: 08/09/19 8:05 AM Result Value Ref Range Magnesium 2.1 1.6 - 2.6 mg/dL POC GLUCOSE Collection Time: 08/09/19 1:13 PM Result Value Ref Range Glucose, POC 109 (H) 70 - 100 MG/DL Glucose: 74 (08/09/19 0340) POC Glucose (Download): (!) 109 (08/09/19 1313) Pertinent radiology reviewed. HAMILTON ARIZA MD Pager [phone] ENSATION VICE PRESIDENT Associated attestation - Topher Marinelli MD - 08/09/2019 3:44 PM COMPENSATION VICE PRESIDENT MICU STAFF NOTE This note is an attestation for the resident/fellow note dated today. I have seen, personally fully evaluated, and discussed patient with the Medical ICU team. I agree with the objective findings and agree with the plan of care a s documented by the resident with the exceptions noted. The patient is critical ly ill with the conditions listed below: Principal Problem: Large pleural effusion Active Problems: Chronic obstructive pulmonary disease with acute exacerbation (HCC) Chronic congestive heart failure (HCC) COPD mixed type (HCC) Type 2 diabetes mellitus (HCC) Pulmonary artery hypertension (HCC) Morbid obesity with BMI of 45.0-49.9, adult (HCC) History of CHF (congestive heart failure) Acute on chronic respiratory failure with hypercapnia (HCC) Chronic heart failure with preserved ejection fraction (HFpEF) (HCC) On mechanically assisted ventilation (HCC) I spent 45 minutes (excluding time spent performing or supervising any procedure s) providing and personally directing critical care services including: Systems and physical examination Review and management of ICU prophylaxis and core measures Review of laboratory data Review of telemetry data Review of imaging studies Review of medications Fluid and electrolyte management Continue IV antibiotics for pseudomonal pneumonia. Continue diuresis with goal 1 -2 liters net negative. Continue chest tube placement, likely d/c in next 24-48 hours. Start NIPPV qhs continue eliquis, po amio and revatio. Staff name: Topher Marinelli MD Date: 08/09/2019 * José Manuel Pino MD - 08/07/2019 5:45 PM COMPENSATION VICE PRESIDENT Admission History and Physical Examination Name: Kemar Lopez Admission Date: 08/07/2019 Assessment/Plan: Active Problems: Chronic obstructive pulmonary disease with acute exacerbation (HCC) Chronic congestive heart failure (HCC) Acute on chronic respiratory failure with hypercapnia (HCC) Large pleural effusion -Admit to CTI -Place chest tube and perform Bronch with BAL -Panculture -resume broad spectrum abx Patient discussed with Dr. Ceja and he directed the plan of care José Manuel Pino MD [id number] __ Primary Care Physician: Ricky Cleveland not verified Chief Complaint: respiratory failure with large right pleural effusion History of Present Illness: Kemar Lopez is a 63 y.o. male Who was transferred from [facility] [place], [place] intubated and sedated with dx of acute on chronic respiratory failure with large right pleural effusion, pseud omonal pneumonia and possible empyema. He has history of HFpEF COPD, HTN, Paroxy smal A fib, NIDDM, CAD. He was on zosyn for 5 days then abx was switched to kiley penem and levaquin. Has history of thoracentesis recently with negative cultures . He presented to this hospital on 08/03/19 with CO2 necrosis and altered menta l status. He was intubated immediately. Had elevated troponin and was deemed to have type II MO by cardiology. Used to on eliquis however was discontinued earli er this year due to recurrent GI bleeds . Patient was bradycardic and his sedation had to be changed to ketamine nad prece dex from Propofol per the notes. He was transferred here due to CT chest finding s concerning for empyema. ECHO 08/15/19 LV cavity size in increased. Wall thickness is mildly to moderately increased. c oncentric hypertrophy.Systolic function is normal. EF 65-70%. Garde 2 diastolic dysfunction RV cavity size is increased. Wall thickness is normal LA: moderately to severely dilated RA dilated AV mild to moderate regurgitation TV mild-moderate regurgitation Moderate pulm HTN. RV systolic pressure is estimated to be approximately 50mmHg . Medical History: Diagnosis Date CAD (coronary artery disease) Chronic heart failure with preserved ejection fraction (HFpEF) ([facility]) COPD (chronic obstructive pulmonary disease) ([facility]) History of GI bleed HTN (hypertension) Obesity, morbid, BMI 40.0-49.9 ([facility]) Paroxysmal atrial fibrillation ([facility]) Surgical History: Procedure Laterality Date HX HEART CATHETERIZATION VASECTOMY Family history reviewed; non-contributory Social History Socioeconomic History Marital status: Spouse name: Not on file Number of children: Not on file Years of education: Not on file Highest education level: Not on file Occupational History Not on file Social Needs Financial resource strain: Not on file Food insecurity: Worry: Not on file Inability: Not on file Transportation needs: Medical: Not on file Non-medical: Not on file Tobacco Use Smoking status: Former Smoker Smokeless tobacco: Never Used Substance and Sexual Activity Alcohol use: No Frequency: Never Drug use: Yes Types: Marijuana Sexual activity: Not on file Lifestyle Physical activity: Days per week: Not on file Minutes per session: Not on file Stress: Not on file Relationships Social connections: Talks on phone: Not on file Gets together: Not on file Attends latter-day service: Not on file Active member of club or organization: Not on file Attends meetings of clubs or organizations: Not on file Relationship status: Not on file Intimate partner violence: Fear of current or ex partner: Not on file Emotionally abused: Not on file Physically abused: Not on file Forced sexual activity: Not on file Other Topics Concern Not on file Social History Narrative Not on file Immunizations (includes history and patient reported): There is no immunization history on file for this patient. Allergies: Patient has no known allergies. Medications: Medications Prior to Admission Medication Sig albuterol 0.083% (PROVENTIL; VENTOLIN) 2.5 mg /3 mL (0.083 %) nebulizer solu tion Inhale 3 mL solution by nebulizer as directed three times daily. amLODIPine (NORVASC) 5 mg tablet Take 5 mg by mouth daily. atorvastatin (LIPITOR) 10 mg tablet Take 10 mg by mouth daily. bacitracin 500 unit/g topical ointment Apply to face BID and PRN. budesonide/formoterol (SYMBICORT HFA) 160/4.5 mcg inhalation Inhale 2 puffs by mouth into the lungs twice daily. cholecalciferol (VITAMIN D-3) 1,000 units tablet Take 1,000 Units by mouth d aily. cyanocobalamin (VITAMIN B-12) 500 mcg tablet Take 500 mcg by mouth daily. duloxetine DR (CYMBALTA) 60 mg capsule Take 60 mg by mouth twice daily. furosemide (LASIX) 40 mg tablet Take 40 mg by mouth twice daily. HYDROcodone/acetaminophen (NORCO) 5/325 mg tablet Take 1 tablet by mouth cata ry 4 hours as needed for Pain lisinopril (PRINIVIL; ZESTRIL) 10 mg tablet Take 10 mg by mouth daily. wfsvbqsg-ejh-IG-lycopen-lutein (CENTRUM SILVER ULTRA MEN'S) 300-600-300 mcg tab Take 1 tablet by mouth daily. mupirocin (BACTROBAN) 2 % topical ointment Apply topically to affected area twice daily. nystatin (MYCOSTATIN) 100,000 unit/g topical cream Apply to skin folds on ch est/groin BID pregabalin (LYRICA) 150 mg capsule Take 150 mg by mouth twice daily. ranitidine(+) (ZANTAC) 150 mg tablet Take 150 mg by mouth twice daily. senna/docusate (SENOKOT-S) 8.6/50 mg tablet Take two tablets by mouth daily. sodium chloride (SEA MIST) 0.65 % nasal spray Apply one spray to two sprays to each nostril as directed as Needed. traZODone (DESYREL) 100 mg tablet Take 100 mg by mouth at bedtime daily. vitamin A 10,000 unit capsule Take 10,000 Units by mouth daily. Review of Systems: unable to obtain ROS Physical Exam: Vital Signs: Last Filed In 24 Hours Vital Signs: 24 Hour Range Pulse: 53 (08/07 1746) Respirations: 26 PER MINUTE (08/07 1746) SpO2: 96 % (08/07 1746) Height: 178 cm (70.08") (08/07 1649) Pulse: [53] Respirations: [26 PER MINUTE] SpO2: [96 %] General:sedated, intubated Head: Normocephalic, without obvious abnormality Lungs: diminshed right side, clear on left Chest wall: No tenderness or deformity. Heart: Sinus mateo Abdomen: Soft, non-tender. No masses. No organomegaly. Extremities: no cyanosis or edema Skin: Warm Musculoskeletal: Unable to asses Psych: unable to assess Lab/Radiology/Other Diagnostic Tests: 24-hour labs: Results for orders placed or performed during the hospital encounter of 08/07/19 (from the past 24 hour(s)) CBC AND DIFF Collection Time: 08/07/19 6:34 PM Result Value Ref Range White Blood Cells 7.7 4.5 - 11.0 K/UL RBC 3.22 (L) 4.4 - 5.5 M/UL Hemoglobin 9.4 (L) 13.5 - 16.5 GM/DL Hematocrit 28.3 (L) 40 - 50 % MCV 87.8 80 - 100 FL MCH 29.1 26 - 34 PG MCHC 33.2 32.0 - 36.0 G/DL RDW 17.0 (H) 11 - 15 % Platelet Count 108 (L) 150 - 400 K/UL MPV 7.3 7 - 11 FL Neutrophils 95 (H) 41 - 77 % Lymphocytes 3 (L) 24 - 44 % Monocytes 2 (L) 4 - 12 % Eosinophils 0 0 - 5 % Basophils 0 0 - 2 % Absolute Neutrophil Count 7.30 (H) 1.8 - 7.0 K/UL Absolute Lymph Count 0.20 (L) 1.0 - 4.8 K/UL Absolute Monocyte Count 0.20 0 - 0.80 K/UL Absolute Eosinophil Count 0.00 0 - 0.45 K/UL Absolute Basophil Count 0.00 0 - 0.20 K/UL PROTIME INR (PT) Collection Time: 08/07/19 6:34 PM Result Value Ref Range INR 1.0 0.8 - 1.2 PTT (APTT) Collection Time: 08/07/19 6:34 PM Result Value Ref Range APTT 27.7 24.0 - 36.5 SEC BLOOD GASES, ARTERIAL Collection Time: 08/07/19 6:34 PM Result Value Ref Range pH-Arterial 7.44 7.35 - 7.45 pCO2-Arterial 50 (H) 35 - 45 MMHG pO2-Arterial 85 80 - 100 MMHG Base Excess-Arterial 8.6 MMOL/L O2 Sat-Arterial 97.5 95 - 99 % Bfhgklujcku-WUO-Tak 32.4 (H) 21 - 28 MMOL/L Pertinent radiology reviewed. José Manuel Pino MD Pager [phone] ENSATION VICE PRESIDENT documented in this encounter Procedure Notes * Jose Miguel Martínez MD - 08/10/2019 2:42 PM COMPENSATION VICE PRESIDENT Chest tube removal Dressing removed. Sutures removed with exception of one previously placed by CTS . Chest tube removed while patient humming. Wound closed with one simple interru pted suture after anesthesia with lidocaine. All of the above performed under cl donato/sterile conditions. ENSATION VICE PRESIDENT documented in this encounter Consult Notes * Jose Miguel Martínez MD - 08/09/2019 11:42 AM COMPENSATION VICE PRESIDENT Associated Order(s): CONSULT PULMONARY/CRITICAL CARE PHYSICIAN Consult for transfer of care. Patient's chart reviewed and patient subsequently evaluated. Appropriate for MICU transfer. Seen and discussed with Dr. Abbasi who ag carson. Dr. Hightower accepted to MICU. ENSATION VICE PRESIDENT Associated attestation - Jazmyne Abbasi MD - 08/13/2019 10:06 PM COMPENSATION VICE PRESIDENT Patient seen with fellow. Agree with transfer to MICU. documented in this encounter Miscellaneous Notes * Case Mgmt DC Plan - Odalis Moreno - 08/14/2019 9:34 AM COMPENSATION VICE PRESIDENT Case Management Progress Note NAME:Kemar Lopez :[birth year] AGE: 63 y.o. ADMISSION DATE: 08/07/2019 DAYS ADMITTED: LOS: 7 days Todays Date: 08/14/2019 Plan Discharge to [facility] today at 1000 via [facility] Interventions ? Support ? Info or Referral ? Discharge Planning CATHY reviewed progress notes and discussed patient with ICU team and RNCM. Disch arge to [facility] today at 1000. Patient might have CDIFF, labs pending. CATHY updated December at [facility]. The y will still accept and would like results once completed. CATHY confirmed plans with patient. CATHY tasked GASTROENTEROLOGY TECHNICIAN to start transfer packet. SW faxed orders and completed transfer packet. [facility] arranged for 1000. PCS form completed. CATHY attempted to call daughter-Sylvia. Phone numbers for her are not working. CATHY updated RN about all plans. Patient is stable to discharge from CM standpoint. ? Medication Needs ? Financial ? Legal ? Other Disposition ? Expected Discharge Date Expected Discharge Date: 08/14/19 Expected Discharge Time: 1000 ? Transportation Does the patient need discharge transport arranged?: No Transportation Name, Phone and Availability #1:[facility] [phone] Does the patient use Medicaid Transportation?: No ? Next Level of Care (Acute Psych discharges only) ? Discharge Disposition Durable Medical Equipment No service has been selected for the patient. Destination - Selection Complete Service Provider Request Status Selected Services Address Phone Number Fax Numb er [facility] Selected Inpatient Rehabilitation [address] [facility] [id number] [phone] Home Care No service has been selected for the patient. Dialysis/Infusion No service has been selected for the patient. Odalis Moreno LMSW [phone] (phone) [phone] (pager) ENSATION VICE PRESIDENT * Case Mgmt DC Plan - Martina Sears - 08/14/2019 9:01 AM COMPENSATION VICE PRESIDENT GASTROENTEROLOGY TECHNICIAN Note Transfer packet completed and placed in patient's wall unit for discharge. Martina Sears Graphite Mill Operator ENSATION VICE PRESIDENT * Case Mgmt DC Plan - Odalis Moreno - 08/13/2019 3:06 PM COMPENSATION VICE PRESIDENT Case Management Progress Note NAME:Kemar Lopez :[birth year] AGE: 63 y.o. ADMISSION DATE: 08/07/2019 DAYS ADMITTED: LOS: 6 days Todays Date: 08/13/2019 Plan Discharge to [facility] at 1000 [facility] arranged. Interventions ? Support ? Info or Referral ? Discharge Planning CATHY reviewed progress notes and discussed patient with ICU team and RNCM. Kristyn yi will be ready to discharge on Monday. CATHY spoke with [facility], they no longer have IPR. They are recommending IPR at [facility]. CATHY met with patient and Richelle and discussed. They are agreeable to [facility] IPR. They deny needing any additional facilities/lists. CATHY made a referral to [facility] IPR. December contacted SW and explained patient has been accepted. SW discussed transport with patient/dgt, they are agreeable to non-emergency amb ulance, as patient is not able to stand or transfer. SW arranged transport through [facility] for 1000. SW updated RN and medical team. SW to follow up to finalize plans on Monday. ? Medication Needs ? Financial Medicare ? Legal ? Other Patient lives with dgt and two grandchildren (21, 24). Patient required assist ance prior to admission. Patient is on oxygen at baseline. Disposition ? Expected Discharge Date Expected Discharge Date: 08/14/19 Expected Discharge Time: 1200 ? Transportation Does the patient need discharge transport arranged?: No Transportation Name, Phone and Availability #1: Dgt can take home if pt goes darius e Does the patient use Medicaid Transportation?: No ? Next Level of Care (Acute Psych discharges only) ? Discharge Disposition Durable Medical Equipment No service has been selected for the patient. Destination - Selection Complete Service Provider Request Status Selected Services Address Phone Number Fax Numb er [facility] Selected Inpatient Rehabilitation [address] [facility] [phone] Home Care No service has been selected for the patient. Dialysis/Infusion No service has been selected for the patient. Odalis Moreno LMSW [phone] (phone) [phone] (pager) ENSATION VICE PRESIDENT * Transfer - Susanna Eckert APRN - 08/13/2019 11:27 AM COMPENSATION VICE PRESIDENT In-Hospital Transfer Note Admission Diagnosis: Respiratory failure Admission Date: 08/07/2019 Active Hospital Problem List: Principal Problem: Large pleural effusion Active Problems: Chronic obstructive pulmonary disease with acute exacerbation (HCC) Chronic congestive heart failure (HCC) COPD mixed type (HCC) Type 2 diabetes mellitus (HCC) Pulmonary artery hypertension (HCC) Morbid obesity with BMI of 45.0-49.9, adult (HCC) History of CHF (congestive heart failure) Acute on chronic respiratory failure with hypercapnia (HCC) Chronic heart failure with preserved ejection fraction (HFpEF) (HCC) Hospital Course: 63 y/o Mw/ PMHHTN, CAD, HFpEF, paroxysmal a-fib&mixed COPD presented to s a transfer from [place], [place] w/acute respiratory failure & concern for empyema, admitted foracuteon chronichypoxic&hypercarbic respiratory failure (baseline 4-5L O2)&w/large right pleural effusion. He was initially admitted to the CTICU&was intubated upon arrival. A BAL was performed &R chest tube placed. BAL did not show any initial signs of infection, although BAL done at outside facility showed PSAE &Enterobacter cloacae. Chest tube drained about 950mL of pleural fluid upon placement. CT removed 08/10. Patient was eventually weaned from the ventilator to comfort flow oxygen & eventually with diuresis was able to be weaned to baseline oxygen requirement.Remains on meropenemthrough 08/13. Stable to tx to the floor while awaiting dispo. Significant Medication Information: - Switched lasix-->bumex - WAX MACHINE OPERATOR eliquis - Continuing to hold amlodipine/lisinopril w/ normotension - On advair here but can dc on WAX MACHINE OPERATOR breo Procedures With Dates: - Diagnostic bronchoscopy with bilateral bronchioalveolar lavage and Right sided Chest tube insertion 08/07 - CT removed 08/10 Consults: - None Follow-Up Items: - Nothing specific, waiting on dispo placement Activity/Weight bearing status: - PT ordered Nutrition: - Cardiac diet Discharge Plan: - SW working on placement Susanna Eckert NP Pulmonary Critical Care Contact via Voalte or [employer] Pager [phone] pager [phone] ENSATION VICE PRESIDENT * Care Plan - Bita Muller RN - 08/12/2019 11:22 PM COMPENSATION VICE PRESIDENT Goals ongoing, patient and actively involved in care. ENSATION VICE PRESIDENT * Case Mgmt DC Plan - Deandra Gomez - 08/12/2019 3:13 PM COMPENSATION VICE PRESIDENT GASTROENTEROLOGY TECHNICIAN Note: Sent placement request via [employer] to the below IPR and SNF facilities, per request from CONNIE Hauser *[address] [place] [address] [address] [facility] [address] [facility] [place] [address] [place] [address] Updated [facility]. Deandra Gomez Graphite Mill Operator ENSATION VICE PRESIDENT * Care Plan - Massiel Ricci RN - 08/11/2019 9:37 PM COMPENSATION VICE PRESIDENT Care plan ongoing ENSATION VICE PRESIDENT * Case Mgmt DC Plan - Odalis Moreno - 08/11/2019 1:23 PM COMPENSATION VICE PRESIDENT Case Management Progress Note NAME:Kemar Lopez :[birth year] AGE: 63 y.o. ADMISSION DATE: 08/07/2019 DAYS ADMITTED: LOS: 4 days Todays Date: 08/11/2019 Plan Discharge planning ongoing Transfer to [facility] following PT/OT: IP Patient is hopeful to discharge home with [facility] but he is also open to [facility] ([place]) vs [facility] ([place]) Interventions ? Support ? Info or Referral ? Discharge Planning SW reviewed progress notes. Transfer to floor. Continue diuresis and Meropenem (until 08/13). Patient is back on baseline oxygen. Chest tube removed. PT/OT is recommending inpatient. SW met with patient and dgt-Robin gong current recommendations. He is hopeful he can discharge home but they are o pen to placement if needed. SW discussed post-acute services recommended. [facility] choice list with quality data from Medicare Compare and offered to answer qu estions. Patient selected the following: [facility] (as he was there for [facility] recently and they were really happy with their care) vs [facility]. SW discussed benefits and qualifications for both. Patient would like PT/OT to weigh in on if they think he could tolerate three hours of therapy a day to ualify for IPR. SW and RNCM will continue to follow for support and discharge planning. ? Medication Needs ? Financial Medicare and Medicaid ? Legal ? Other Patient lives with dgt and two grandchildren (21, 24). Patient required assist ance prior to admission. Patient is on oxygen at baseline. Disposition ? Expected Discharge Date Expected Discharge Date: 08/14/19 Expected Discharge Time: 1200 ? Transportation Does the patient need discharge transport arranged?: No Transportation Name, Phone and Availability #1: Dgt can take home if pt goes darius e Does the patient use Medicaid Transportation?: No ? Next Level of Care (Acute Psych discharges only) ? Discharge Disposition Odalis Moreno LMSW [phone] (phone) [phone] (pager) ENSATION VICE PRESIDENT * Transfer - Hamilton Ariza MD - 08/11/2019 11:43 AM COMPENSATION VICE PRESIDENT In-Hospital Transfer Note Admission Diagnosis: Acute hypoxic and hypercarbic respiratory failure with lar ge right pleural effusion Admission Date: 08/07/2019 Active Hospital Problem List: Principal Problem: Large pleural effusion Active Problems: Chronic obstructive pulmonary disease with acute exacerbation (HCC) Chronic congestive heart failure (HCC) COPD mixed type (HCC) Type 2 diabetes mellitus (HCC) Pulmonary artery hypertension (HCC) Morbid obesity with BMI of 45.0-49.9, adult (HCC) History of CHF (congestive heart failure) Acute on chronic respiratory failure with hypercapnia (HCC) Chronic heart failure with preserved ejection fraction (HFpEF) (HCC) On mechanically assisted ventilation (HCC) Hospital Course: Kemar Lopez is a 63yo M with a history of hypertension, coronary artery disease , HFpEF, paroxysmal A. fib, and COPD who presented on 08/07 as a transfer from [place], [place] for a possible empyema. He initially presented to the outside hospi [facility] with altered mental status, found to have acute hypoxic and hypercarbic resp iratory failure. He was almost immediately intubated due to this finding with c oncern for CO2 narcosis with a PaCO2 over 100. He was started on antibiotics at that time with Zosyn. A BAL was performed at the outside facility on 08/05 which eventually showed Pseudomonas and Enterobacter cloacae on culture. He was tra nsitioned to meropenem and Levaquin. He was kept for a couple days and did not appear to be improving, although he did appear to have a large right pleural eff usion on imaging. He was transferred to [facility] for a possible empyema. He was in itially admitted to the CT ICU. A BAL was performed again here on 08/07 as well as a right chest tube placed. The BAL did not show any signs of infection on cy tology or cultures. The chest tube did drain about 950 mL's on placement, but p er lights criteria appeared to be more transudative in nature, consistent with m ore of a parapneumonic effusion. He was quickly extubated to comfort flow O2. Matheus samuel was transferred to the MICU given he had a lack of need for surgical intervent ion. He is now back on his baseline oxygen requirements with heavy diuresis and continued meropenem antibiotic coverage. He has reported a dry weight of about 3 20 pounds. He remains hemodynamically stable and appropriate for transfer to the floor. Significant Medication Information (to include antibiotic duration/indication, a nticoagulation and steroids, etc.): - Meropenem 08/07 to present. 10 day course would stop on 08/13 - Levofloxacin 08/07-08/08 - current diuresis with Bumetanide 2mg TID with intermittent thiazide diuretic t o target net output of 2L daily Procedures With Dates: Chest tube placement 08/07, removed 08/10 Consults: None Follow-Up Items: - Continuing to monitor I's and O's and daily weights. He was admitted at 348 p ounds at the outside facility with a dry weight of 320 pounds reported, suspect he may be lower than this Activity/Weight bearing status: As tolerated Nutrition: Cardiac diet Discharge Plan: Likely will need placement to facility, hopefully a midweek dis charge around 08/14 or so. Will need ongoing PT/OT evaluation to determine best placement options. HAMILTON ARIZA MD Pager [phone] ENSATION VICE PRESIDENT * Care Plan - Bita Covington RN - 08/09/2019 2:46 AM COMPENSATION VICE PRESIDENT Problem: Discharge Planning Goal: Participation in plan of care Outcome: Goal Ongoing Goal: Knowledge regarding plan of care Outcome: Goal Ongoing Goal: Prepared for discharge Outcome: Goal Ongoing Problem: Infection, Risk of, Urinary Catheter-Associated Urinary Tract Infection Goal: Absence of urinary catheter-associated infection Outcome: Goal Ongoing Problem: Infection, Risk of, Central Venous Catheter-Associated Bloodstream Infe ction Goal: Absence of CVC Associated Bloodstream infection Outcome: Goal Ongoing Problem: Injury-Risk of, Non-Violent Physical Restraints Goal: Absence of Injury while physically restrained (Non-Violent) Outcome: Goal Achieved ENSATION VICE PRESIDENT * Case Mgmt DC Plan - Leticia Sears - 08/08/2019 1:15 PM COMPENSATION VICE PRESIDENT Case Management Admission Assessment NAME:Kemar Lopez : 5 AGE: 63 y.o. ADMISSION DATE: 08/07/2019 DAYS ADMITTED: LOS: 1 day Todays Date: 08/08/2019 Source of Information: Patient dgtSylvia Plan Plan: Case Management Assessment, Assist PRN with SW/NCM Services, Discharge Planning for Facility Anticipated This CM met with pt for assessment on this date. Provided contact informatio n and explanation of SW/NCM roles. Reviewed [facility], Preparing for D ischarge, and Preferred Provider Network hand-outs. Provided opportunity for qu estions and discussion. Pt/family encouraged to contact Case Management team wit h questions and concerns during hospitalization and until patient is able to tra nsition back to the patient's primary care physician. transferred from [facility] [place], [place] intubated and s edated with dx of acute on chronic respiratory failure with large right pleural effusion, pseudomonal pneumonia and possible empyema. DC needs TBD pending progression. Dgt states that pt has been in and out of the hospital for the last three mon ths- pt was recently at home for only 2 days before returning back to the hospit al for this recent admission. She states that when he was at home, he needed com plete assistance. Dgt inquiring about getting pt on HCBS services for when he discharges. NCM e xplained that this process takes a long time and liekly these services would not be approved by the time he goes home. Furthermore, based off pt's recent hospit al stays/complete need for assistance, it is very likely he will need to go plac ement on dc. SW notified and following for same. CM team to continue to follow. Patient Address/Phone [address] [facility] [phone] (home) Emergency Contact Extended Emergency Contact Information Primary Emergency Contact: Sylvia Lopez Mobile Relation: Daughter Material Control Associate needed? No Healthcare Directive Not on file and not appropriate to address at this time. Transportation Does the patient need discharge transport arranged?: No Transportation Name, Phone and Availability #1: Dgt can take home if pt goes darius e Does the patient use Medicaid Transportation?: No Expected Discharge Date Expected Discharge Date: 08/13/19 Expected Discharge Time: 1200 Living Situation Prior to Admission ? Living Arrangements Type of Residence: Home, independent Living Arrangements: Children, Family members(Lives w his dgt and 2 grandchildre n ages 21/24 ) Bathroom Shower / Tub: Tub/Shower Unit How many levels in the residence?: 1 Can patient live on one level if needed?: Yes Does residence have entry and/or side stairs?: Yes(3-4 ) Assistance needed prior to admit or anticipated on discharge: Yes Who provides assistance or could if needed?: Dgt and grandchildren Are they in good health?: (S) (Pt's dgt is on disability for Fibro/migraines ) Can support system provide 24/ care if needed?: Maybe ? Level of Function Prior level of function: Needs assist with ADLs Which ADLs require assistance?: All Who assists with ADLs?: Dgt ? Cognitive Abilities Cognitive Abilities: Unable to Assess(Intubated/sedated ) Financial Resources ? Coverage Primary Insurance: Medicare(A/B) Secondary Insurance: Medicaid(Dgt reports pt also has Medicaid however NCM unabl e to locate card. NCM tasked [facility] to verify ) Additional Coverage: RX(Medicare part D however unable to locate a card-- [place] to also verify. ) ? Source of Income Source Of Income: SSDI ? Financial Assistance Needed? NA Psychosocial Needs ? Mental Health Mental Health History: Yes(Dgt reports hx of depression and was taking Lexapro/B uspar however was taken off those meds due to his heart condition ) ? Substance Use History Substance Use History Screen: No ? Other NA Current/Previous Services ? PCP Ricky Cleveland, , Cards: Dr. Reyna Macdonald: Dr. Forrest ? Pharmacy [facility][id number] - [place], [place] - [address] [facility] [address] ? Durable Medical Equipment Durable Medical Equipment at home: CPAP/BiPAP, Oxygen, Roller Walker, Single Poi nt Cane, Pyramid Cane ? Home Health Receiving home health: In the past Agency name: Unable to recall name of agency used ? Hemodialysis or Peritoneal Dialysis Undergoing hemodialysis or peritoneal dialysis: No ? Tube/Enteral Feeds Receive tube/enteral feeds: No ? Infusion Receive infusions: No ? Private Duty Private duty help used: No ? Home and Community Based Services Home and community based services: No ? Naveen White Naveen White: N/A ? Hospice Hospice: No ? Outpatient Therapy PT: No OT: No BAG PATCHER: No ? Intermediate Facility/Group Home SNF: No NH: No ? Inpatient Rehab IPR: No ? Long-Term Acute Care Hospital LTACH: In the past When did patient receive care?: About a year ago Name of Facility: [facility] Would patient return for future services?: Yes ? Acute Hospital Stay Acute Hospital Stay: In the past Was patient's stay within the last 30 days?: Yes Name of Hospital: Other (comment) Leticia CORREA, defect repairer glassware Nurse [facility] Inpatient Cardiothoracic Surgery - [phone] O: [phone] [id number] ENSATION VICE PRESIDENT * Care Plan - Katy Olmstead RN - 08/08/2019 10:43 AM COMPENSATION VICE PRESIDENT Problem: Discharge Planning Goal: Participation in plan of care Outcome: Goal Ongoing Goal: Knowledge regarding plan of care Outcome: Goal Ongoing Goal: Prepared for discharge Outcome: Goal Ongoing Problem: Infection, Risk of, Urinary Catheter-Associated Urinary Tract Infection Goal: Absence of urinary catheter-associated infection Outcome: Goal Ongoing Problem: Infection, Risk of, Central Venous Catheter-Associated Bloodstream Infe ction Goal: Absence of CVC Associated Bloodstream infection Outcome: Goal Ongoing Problem: Injury-Risk of, Non-Violent Physical Restraints Goal: Absence of Injury while physically restrained (Non-Violent) Outcome: Goal Ongoing ENSATION VICE PRESIDENT * Care Plan - Ananya Neal RN - 08/08/2019 6:11 AM COMPENSATION VICE PRESIDENT Problem: Discharge Planning Goal: Participation in plan of care Outcome: Goal Ongoing Flowsheets (Taken 08/08/2019 0609) Participation in Plan of Care: Involve patient/caregiver in care planning decisi on making Note: Patient continues to ask questions and provide input for expectations for the pl an of care Goal: Knowledge regarding plan of care Outcome: Goal Ongoing Flowsheets (Taken 08/08/2019 06) Knowledge regarding plan of care: Provide procedural and treatment education; Pr ovide fall prevention education; Provide medication management education Note: Pt able to discuss previous, home, and current POC with narrative writer Goal: Prepared for discharge Outcome: Goal Ongoing Flowsheets (Taken 08/08/2019 06) Prepared for discharge: Provide diet and oral health education; Provide safe use medical equipment education; Collaborate with multidisciplinary team for hospit al discharge coordination Problem: Infection, Risk of, Urinary Catheter-Associated Urinary Tract Infection Goal: Absence of urinary catheter-associated infection Outcome: Goal Ongoing Flowsheets (Taken 08/08/2019 06) Absence of urinary catheter-associated infections: Assess for signs and sypmtoms of catheter-associated urinary tract infection; Manage urinary catheter Note: Implement measures to prevent device associated and surgical site infections per standard of practice Will continue to reevaluate and reinforce as patient is weaned off sedation and ventilator Problem: Infection, Risk of, Central Venous Catheter-Associated Bloodstream Infe ction Goal: Absence of CVC Associated Bloodstream infection Outcome: Goal Ongoing Flowsheets (Taken 08/08/2019 06) Absence of CVC associated bloodstream infection: Follow central line bundle com ponents; Manage central venous catheter; Preparation for central venous catheter insertion Note: Implement measures to prevent device associated and surgical site infections per standard of practice Problem: Injury-Risk of, Non-Violent Physical Restraints Goal: Absence of Injury while physically restrained (Non-Violent) Outcome: Goal Ongoing Flowsheets (Taken 08/08/2019 06) Absence of injury while physically restrained - non-violent: Consult to psychiat ayanna consult team; Monitor/document for non-violent patients ENSATION VICE PRESIDENT documented in this encounter Plan of Treatment Date/Time Name Type Priority Associated Diag noses 08/07/2019 5:44 PM COMPENSATION VICE PRESIDENT CULTURE-FUNGAL,OTHER Microbiology Routine 08/07/2019 5:21 PM COMPENSATION VICE PRESIDENT CULTURE-TB (AFB) Microbiology Routine Empyema, righ t ([facility]) 08/07/2019 5:21 PM COMPENSATION VICE PRESIDENT CULTURE-FUNGAL,OTHER Microbiology Routine Empyema, right ([facility]) documented as of this encounter Goals Goal Patient Associated Recent Progress Patient-Stat Aut hor Goal Type Problems ed? Improve quality of life [facility] No Myriam Miles RN documented as of this encounter Procedures Comments Procedure Name Priority Date/Time Associated Diag nosis HC CBC W/ AUTOMATED DIFF Routine 08/14/2019 3:30 AM COMPENSATION VICE PRESIDENT HC PHOSPHOROUS, SERUM Routine 08/14/2019 3:30 AM COMPENSATION VICE PRESIDENT HC MAGNESIUM Routine 08/14/2019 3:30 AM COMPENSATION VICE PRESIDENT HC BASIC METABOLIC PANEL Routine 08/14/2019 3:30 AM COMPENSATION VICE PRESIDENT HC C DIFFICILE BY PCR Routine 08/13/2019 4:36 PM COMPENSATION VICE PRESIDENT POC GLUCOSE 08/13/2019 11:01 AM COMPENSATION VICE PRESIDENT HC CBC W/ AUTOMATED DIFF Routine 08/13/2019 5:11 AM COMPENSATION VICE PRESIDENT HC PHOSPHOROUS, SERUM Add on 08/13/2019 5:11 AM COMPENSATION VICE PRESIDENT HC MAGNESIUM Routine 08/13/2019 5:11 AM COMPENSATION VICE PRESIDENT HC BASIC METABOLIC PANEL Routine 08/13/2019 5:11 AM COMPENSATION VICE PRESIDENT POC GLUCOSE 08/13/2019 2:17 AM COMPENSATION VICE PRESIDENT POC GLUCOSE 08/12/2019 9:21 PM COMPENSATION VICE PRESIDENT POC GLUCOSE 08/12/2019 2:26 PM COMPENSATION VICE PRESIDENT POC GLUCOSE 08/12/2019 8:47 AM COMPENSATION VICE PRESIDENT CHEST SINGLE VIEW STAT 08/12/2019 4:50 AM COMPENSATION VICE PRESIDENT HC CBC W/ AUTOMATED DIFF Routine 08/12/2019 4:09 AM COMPENSATION VICE PRESIDENT HC MAGNESIUM Routine 08/12/2019 4:09 AM COMPENSATION VICE PRESIDENT HC BASIC METABOLIC PANEL Routine 08/12/2019 4:09 AM COMPENSATION VICE PRESIDENT POC GLUCOSE 08/12/2019 4:04 AM COMPENSATION VICE PRESIDENT BASIC METABOLIC PANEL Routine 08/11/2019 11:57 PM COMPENSATION VICE PRESIDENT POC GLUCOSE 08/11/2019 9:01 PM COMPENSATION VICE PRESIDENT POC GLUCOSE 08/11/2019 2:25 PM COMPENSATION VICE PRESIDENT POC GLUCOSE 08/11/2019 8:43 AM COMPENSATION VICE PRESIDENT CHEST SINGLE VIEW STAT 08/11/2019 4:42 AM COMPENSATION VICE PRESIDENT HC CBC W/ AUTOMATED DIFF Routine 08/11/2019 3:14 AM COMPENSATION VICE PRESIDENT HC MAGNESIUM STAT 08/11/2019 3:14 AM COMPENSATION VICE PRESIDENT HC BASIC METABOLIC PANEL Routine 08/11/2019 3:14 AM COMPENSATION VICE PRESIDENT POC GLUCOSE 08/11/2019 2:14 AM COMPENSATION VICE PRESIDENT POC GLUCOSE 08/10/2019 8:52 PM COMPENSATION VICE PRESIDENT CHEST SINGLE VIEW Routine 08/10/2019 2:56 PM COMPENSATION VICE PRESIDENT POC GLUCOSE 08/10/2019 2:45 PM COMPENSATION VICE PRESIDENT POC GLUCOSE 08/10/2019 8:37 AM COMPENSATION VICE PRESIDENT POC GLUCOSE 08/10/2019 4:38 AM COMPENSATION VICE PRESIDENT CHEST SINGLE VIEW Routine 08/10/2019 4:28 AM COMPENSATION VICE PRESIDENT HC CBC W/ AUTOMATED DIFF Routine 08/10/2019 3:40 AM COMPENSATION VICE PRESIDENT HC MAGNESIUM STAT 08/10/2019 3:40 AM COMPENSATION VICE PRESIDENT HC BASIC METABOLIC PANEL Routine 08/10/2019 3:40 AM COMPENSATION VICE PRESIDENT POC GLUCOSE 08/09/2019 9:47 PM COMPENSATION VICE PRESIDENT HC B-TYPE NATRIURETIC Routine 08/09/2019 PEPTIDE 4:00 PM COMPENSATION VICE PRESIDENT POC GLUCOSE 08/09/2019 3:46 PM COMPENSATION VICE PRESIDENT POC GLUCOSE 08/09/2019 1:13 PM COMPENSATION VICE PRESIDENT HC POTASSIUM, SERUM Routine 08/09/2019 1:10 PM COMPENSATION VICE PRESIDENT HC MAGNESIUM Routine 08/09/2019 1:10 PM COMPENSATION VICE PRESIDENT POTASSIUM Routine 08/09/2019 8:05 AM COMPENSATION VICE PRESIDENT HC MAGNESIUM Routine 08/09/2019 8:05 AM COMPENSATION VICE PRESIDENT HC BLOOD Routine 08/09/2019 GASES;(CALCULATED 02) 8:05 AM COMPENSATION VICE PRESIDENT POC GLUCOSE 08/09/2019 8:04 AM COMPENSATION VICE PRESIDENT CHEST SINGLE VIEW Routine 08/09/2019 4:38 AM COMPENSATION VICE PRESIDENT HC CBC W/ AUTOMATED DIFF Routine 08/09/2019 3:40 AM COMPENSATION VICE PRESIDENT HC MAGNESIUM STAT 08/09/2019 3:40 AM COMPENSATION VICE PRESIDENT HC BASIC METABOLIC PANEL Routine 08/09/2019 3:40 AM COMPENSATION VICE PRESIDENT POC GLUCOSE 08/08/2019 8:51 PM COMPENSATION VICE PRESIDENT POC GLUCOSE 08/08/2019 7:00 PM COMPENSATION VICE PRESIDENT HC BLOOD Routine 08/08/2019 GASES;(CALCULATED 02) 2:05 PM COMPENSATION VICE PRESIDENT HC BLOOD GAS, POC 08/08/2019 1:06 PM COMPENSATION VICE PRESIDENT HC SODIUM, POC 08/08/2019 1:06 PM COMPENSATION VICE PRESIDENT HC POTASSIUM, POC 08/08/2019 1:06 PM COMPENSATION VICE PRESIDENT HC IONIZED CA, POC 08/08/2019 1:06 PM COMPENSATION VICE PRESIDENT HC HEMATOCRIT POC 08/08/2019 1:06 PM COMPENSATION VICE PRESIDENT POC GLUCOSE 08/08/2019 1:04 PM COMPENSATION VICE PRESIDENT HC BLOOD Routine 08/08/2019 GASES;(CALCULATED 02) 11:00 AM COMPENSATION VICE PRESIDENT CHEST SINGLE VIEW STAT 08/08/2019 7:44 AM COMPENSATION VICE PRESIDENT POC GLUCOSE 08/08/2019 7:27 AM COMPENSATION VICE PRESIDENT HC PTT(APTT) STAT 08/08/2019 4:00 AM COMPENSATION VICE PRESIDENT HC CBC W/ AUTOMATED DIFF Routine 08/08/2019 4:00 AM COMPENSATION VICE PRESIDENT HC MAGNESIUM STAT 08/08/2019 4:00 AM COMPENSATION VICE PRESIDENT HC BLOOD STAT 08/08/2019 GASES;(CALCULATED 02) 4:00 AM COMPENSATION VICE PRESIDENT HC BASIC METABOLIC PANEL Routine 08/08/2019 4:00 AM COMPENSATION VICE PRESIDENT POC GLUCOSE 08/07/2019 9:51 PM COMPENSATION VICE PRESIDENT CULTURE-BLOOD Routine 08/07/2019 W/SENSITIVITY 6:34 PM COMPENSATION VICE PRESIDENT HC PTT(APTT) Routine 08/07/2019 6:34 PM COMPENSATION VICE PRESIDENT HC PT(INR) Routine 08/07/2019 6:34 PM COMPENSATION VICE PRESIDENT HC CBC W/ AUTOMATED DIFF STAT 08/07/2019 6:34 PM COMPENSATION VICE PRESIDENT HC MAGNESIUM STAT 08/07/2019 6:34 PM COMPENSATION VICE PRESIDENT HC HEMOGLOBIN A1C Routine 08/07/2019 6:34 PM COMPENSATION VICE PRESIDENT HC BLOOD STAT 08/07/2019 GASES;(CALCULATED 02) 6:34 PM COMPENSATION VICE PRESIDENT HC Routine 08/07/2019 LIPID-5:CHOL/TRG/HDL/LDL+ 6:34 PM COMPENSATION VICE PRESIDENT VLDL HC COMPREHENSIVE STAT 08/07/2019 METABOLIC PANEL 6:34 PM COMPENSATION VICE PRESIDENT HC CULTURE-BLOOD Routine 08/07/2019 6:05 PM COMPENSATION VICE PRESIDENT HC CULTURE-URINE Routine 08/07/2019 5:59 PM COMPENSATION VICE PRESIDENT HC NON-CAMPAIGN ASSOCIATE/THIN PREP Routine 08/07/2019 5:58 PM COMPENSATION VICE PRESIDENT HC TOTAL PROTEIN-FLUID Routine 08/07/2019 5:44 PM COMPENSATION VICE PRESIDENT HC PH-FLUID Routine 08/07/2019 5:44 PM COMPENSATION VICE PRESIDENT HC LDH-FLUID Routine 08/07/2019 5:44 PM COMPENSATION VICE PRESIDENT HC GLUCOSE-FLUID Routine 08/07/2019 5:44 PM COMPENSATION VICE PRESIDENT HC AMYLASE-FLUID Routine 08/07/2019 5:44 PM COMPENSATION VICE PRESIDENT HC GRAM STAIN 08/07/2019 5:44 PM COMPENSATION VICE PRESIDENT CULTURE-WOUND/TISSUE/FLUI Routine 08/07/2019 D(AEROBIC 5:44 PM COMPENSATION VICE PRESIDENT ONLY)W/SENSITIVITY CHEST SINGLE VIEW STAT 08/07/2019 5:30 PM COMPENSATION VICE PRESIDENT HC GRAM STAIN Routine 08/07/2019 Empyema, right (HCC) 5:21 PM COMPENSATION VICE PRESIDENT HC CULTURE-LOWER RESP Routine 08/07/2019 5:21 PM COMPENSATION VICE PRESIDENT TELEMETRY STRIPS-SCAN 08/07/2019 12:00 AM COMPENSATION VICE PRESIDENT documented in this encounter Results * PHOSPHORUS (08/14/2019 3:30 AM COMPENSATION VICE PRESIDENT) Pathologist [facility] Phosphorus 2.6Comment: NOTE NEW REFERENCE 2.0 - 4.5 MG/DL [facility] RANGES Specimen Blood Performing Organization Address City/State/Zipcode Ph one Number [facility] [address] [place] [address] * CBC AND DIFF (08/14/2019 3:30 AM COMPENSATION VICE PRESIDENT) White Blood 6.2 4.5 - 11.0 K/UL [...] Basophil Count Specimen Blood Performing Organization Address City/State/Zipcode Ph one Number [facility] [address] [place] [address] * BASIC METABOLIC PANEL (08/14/2019 3:30 AM COMPENSATION VICE PRESIDENT) Sodium 147 137 - 147 MMOL/L [facility] Potassium 3.8 3.5 - 5.1 MMOL/L [facility] Chloride 97 (L) 98 - 110 MMOL/L [facility] CO2 44 (H) 21 - 30 MMOL/L [facility] Anion Gap 6 3 - 12 [facility] Glucose 97 70 - 100 MG/DL [facility] Blood Urea 41 (H) 7 - 25 MG/DL [facility] Nitrogen Creatinine 0.93 0.4 - 1.24 MG/DL [facility] Calcium 8.5 8.5 - 10.6 MG/DL [facility] eGFR Non >60 >60 mL/min [facility] Comment: [place] The eGFR is not validated f or use in drug dosing adjustments. Continue to use estimated creatinine clearance per dosing reference text. Please contact the Clinical Pharmacist for questions. eGFR >60 >60 mL/min [facility] [place] Comment: The eGFR is not validated for use in drug dosing adjustments. Continue to use estimated creatinine clearance per dosing reference text. Please contact the Clinical Pharmacist for questions. Specimen Blood Performing Organization Address [facility] one Number MAIN LAB [address] [place] [address] * MAGNESIUM (08/14/2019 3:30 AM COMPENSATION VICE PRESIDENT) Magnesium 1.8 1.6 - 2.6 mg/dL [facility]IN [facility] Specimen Blood Performing Organization Address [facility] one Number MAIN LAB [address] [place] [address] * C DIFFICILE BY PCR (08/13/2019 4:36 PM COMPENSATION VICE PRESIDENT) C. difficile NEGATIVE-wait 7 days to repeat [facility] N LAB Toxin B PCR test Specimen Feces Performing Organization Address [facility] one Number MAIN LAB [address] [place] [address] * POC GLUCOSE (08/13/2019 11:01 AM COMPENSATION VICE PRESIDENT) Glucose, POC 231 (H) 70 - 100 MG/DL [facility] Specimen Performing Organization Address [facility] one Number MAIN LAB [address] [place] [address] * PHOSPHORUS (08/13/2019 5:11 AM COMPENSATION VICE PRESIDENT) Phosphorus 3.6Comment: NOTE NEW REFERENCE 2.0 - 4.5 MG/DL [facility] RANGES Specimen Performing Organization Address [facility] one Number MAIN LAB [address] [place] [address] * MAGNESIUM (08/13/2019 5:11 AM COMPENSATION VICE PRESIDENT) Magnesium 1.9 1.6 - 2.6 mg/dL [facility]IN LAB Specimen Blood Performing Organization Address [facility] one Number MAIN LAB [address] [place] [address] * CBC AND DIFF (08/13/2019 5:11 AM COMPENSATION VICE PRESIDENT) White Blood 6.4 4.5 - 11.0 K/UL MAIN LAB Cells RBC 2.84 (L) 4.4 - 5.5 M/UL [facility] Hemoglobin 8.3 (L) 13.5 - 16.5 GM/DL [facility] Hematocrit 24.7 (L) 40 - 50 % [facility] MCV 87.1 80 - 100 FL [facility] MCH 29.1 26 - 34 PG [facility] MCHC 33.5 32.0 - 36.0 G/DL [facility] RDW 16.7 (H) 11 - 15 % [facility] Platelet Count 96 (L) 150 - 400 K/UL [facility] MPV 7.4 7 - 11 FL [facility] Neutrophils 75 41 - 77 % [facility] Lymphocytes 13 (L) 24 - 44 % [facility] Monocytes 9 4 - 12 % [facility] Eosinophils 2 0 - 5 % [facility] Basophils 1 0 - 2 % [facility] Absolute 4.80 1.8 - 7.0 K/UL [facility] Neutrophil Count Absolute Lymph 0.80 (L) 1.0 - 4.8 K/UL [facility] Count Absolute 0.60 0 - 0.80 K/UL [facility] Monocyte Count Absolute 0.10 0 - 0.45 K/UL [facility] Eosinophil Count Absolute 0.10 0 - 0.20 K/UL [facility] Basophil Count Specimen Blood Performing Organization Address City/State/[facility] Ph one Number [facility] [address] [place] [address] * BASIC METABOLIC PANEL (08/13/2019 5:11 AM COMPENSATION VICE PRESIDENT) Sodium 144 137 - 147 MMOL/L [facility] Potassium 4.3 3.5 - 5.1 MMOL/L [facility] Chloride 98 98 - 110 MMOL/L [facility] CO2 39 (H) 21 - 30 MMOL/L [facility] Anion Gap 7 3 - 12 [facility] Glucose 80 70 - 100 MG/DL [facility] Blood Urea 47 (H) 7 - 25 MG/DL [facility] Nitrogen Creatinine 1.14 0.4 - 1.24 MG/DL [facility] Calcium 8.8 8.5 - 10.6 MG/DL [facility] eGFR Non >60 >60 mL/min [facility] Comment: [place] The eGFR is not validated f or use in drug dosing adjustments. Continue to use estimated creatinine clearance per dosing reference text. Please contact the Clinical Pharmacist for questions. eGFR >60 >60 mL/min [facility] [place] Comment: The eGFR is not validated for use in drug dosing adjustments. Continue to use estimated creatinine clearance per dosing reference text. Please contact the Clinical Pharmacist for questions. Specimen Blood Performing Organization Address City/State/[facility] Ph one Number MA[facility] LAB [address] [place] [address] * POC GLUCOSE (08/13/2019 2:17 AM COMPENSATION VICE PRESIDENT) Glucose, POC 87 70 - 100 MG/DL [facility] MAIN LAB Specimen Performing Organization Address [facility] Ph one Number MAIN LAB [address] [place] [address] * POC GLUCOSE (08/12/2019 9:21 PM COMPENSATION VICE PRESIDENT) Glucose, POC 182 (H) 70 - 100 MG/DL MAIN LAB Specimen Performing Organization Address [facility] Ph one Number MAIN LAB [address] [place] [address] * POC GLUCOSE (08/12/2019 2:26 PM COMPENSATION VICE PRESIDENT) Glucose, POC 153 (H) 70 - 100 MG/DL MAIN LAB Specimen Performing Organization Address [facility] one Number MAIN LAB [address] [place] [address] * POC GLUCOSE (08/12/2019 8:47 AM COMPENSATION VICE PRESIDENT) Glucose, POC 96 70 - 100 MG/DL MAIN LAB Specimen Performing Organization Address [facility] one Number MAIN LAB [address] [place] [address] * CHEST SINGLE VIEW (08/12/2019 4:50 AM COMPENSATION VICE PRESIDENT) Specimen Impressions Performed At Stable chest radiograph [...] Interface, Radiant Results - 08/12/2019 9:32 AM COMPENSATION VICE PRESIDENT CHEST SINGLE VIEW History: empyema. Technique: Single [...] on 08/12/2019 9:27 AM. Performing Organization Address [facility] Ph one Number [facility] RAD RESULTS * MAGNESIUM (08/12/2019 4:09 AM COMPENSATION VICE PRESIDENT) Magnesium 1.9 1.6 - 2.6 mg/dL [facility] MAIN LAB Specimen Blood Performing Organization Address [facility] Ph one Number [facility] MAIN LAB [address] [place] [address] * CBC AND DIFF (08/12/2019 4:09 AM COMPENSATION VICE PRESIDENT) White Blood 7.2 4.5 - 11.0 K/UL [facility] MAIN LAB Cells RBC 3.03 (L) 4.4 - 5.5 M/UL [facility] MAIN LAB Hemoglobin 9.1 (L) 13.5 - 16.5 GM/DL [facility] MAIN LAB Hematocrit 27.1 (L) 40 - 50 % [facility] MAIN LAB MCV 89.4 80 - 100 FL [facility] MAIN LAB MCH 29.9 26 - 34 PG [facility] MAIN LAB MCHC 33.5 32.0 - 36.0 G/DL [facility] MAIN LAB RDW 17.1 (H) 11 - 15 % [facility] MAIN LAB Platelet Count 90 (L) 150 - 400 K/UL [facility] MAIN LAB MPV 7.4 7 - 11 FL [facility] MAIN LAB Neutrophils 78 (H) 41 - 77 % [facility] MAIN [facility] Lymphocytes 10 (L) 24 - 44 % [facility] MAIN [facility] Monocytes 9 4 - 12 % [facility] MAIN [facility] Eosinophils 2 0 - 5 % [facility] MAIN [facility] Basophils 1 0 - 2 % [facility] MAIN [facility] Absolute 5.70 1.8 - 7.0 K/UL [facility] MAIN LAB Neutrophil Count Absolute Lymph 0.70 (L) 1.0 - 4.8 K/UL [facility] MAIN LAB Count Absolute 0.60 0 - 0.80 K/UL [facility] MAIN LAB Monocyte Count Absolute 0.10 0 - 0.45 K/UL [facility] MAIN LAB Eosinophil Count Absolute 0.00 0 - 0.20 K/UL [facility] MAIN LAB Basophil Count Specimen Blood Performing Organization Address [facility] one Number [facility] MAIN LAB [address] [place] [address] * BASIC METABOLIC PANEL (08/12/2019 4:09 AM COMPENSATION VICE PRESIDENT) Sodium 145 137 - 147 MMOL/L [facility] MAIN LAB Potassium 4.2 3.5 - 5.1 MMOL/L [facility] MAIN LAB Chloride 100 98 - 110 MMOL/L [facility] MAIN LAB CO2 37 (H) 21 - 30 MMOL/L [facility] MAIN LAB Anion Gap 8 3 - 12 [facility] MAIN LAB Glucose 89 70 - 100 MG/DL [facility] MAIN LAB Blood Urea 44 (H) 7 - 25 MG/DL [facility] MAIN LAB Nitrogen Creatinine 1.31 (H) 0.4 - 1.24 MG/DL [facility] MAIN LAB Calcium 8.8 8.5 - 10.6 MG/DL [facility] MAIN LAB eGFR Non 55 (L) >60 mL/min [facility] MAIN LAB Comment: [place] The eGFR is not validated f or use in drug dosing adjustments. Continue to use estimated creatinine clearance per dosing reference text. Please contact the Clinical Pharmacist for questions. eGFR >60 >60 mL/min [facility] MAIN LAB [place] Comment: The eGFR is not validated for use in drug dosing adjustments. Continue to use estimated creatinine clearance per dosing reference text. Please contact the Clinical Pharmacist for questions. Specimen Blood Performing Organization Address [facility] one Number [facility] MAIN LAB [address] [place] [address] * POC GLUCOSE (08/12/2019 4:04 AM COMPENSATION VICE PRESIDENT) Glucose, POC 95 70 - 100 MG/DL [facility] MAIN LAB Specimen Performing Organization Address [facility] one Number [facility] MAIN LAB [address] [place] [address] * BASIC METABOLIC PANEL (08/11/2019 11:57 PM COMPENSATION VICE PRESIDENT) Sodium 145 137 - 147 MMOL/L [facility] MAIN LAB Potassium 4.1 3.5 - 5.1 MMOL/L [facility] LAB Chloride 100 98 - 110 MMOL/L [facility] LAB CO2 37 (H) 21 - 30 MMOL/L MAIN LAB Anion Gap 8 3 - 12 [facility] LAB Glucose 100 70 - 100 MG/DL [facility] LAB Blood Urea 44 (H) 7 - 25 MG/DL [facility] LAB Nitrogen Creatinine 1.33 (H) 0.4 - 1.24 MG/DL [facility] LAB Calcium 8.6 8.5 - 10.6 MG/DL [facility] LAB eGFR Non 54 (L) >60 mL/min [facility] LAB Comment: [place] The eGFR is not validated f or use in drug dosing adjustments. Continue to use estimated creatinine clearance per dosing reference text. Please contact the Clinical Pharmacist for questions. eGFR >60 >60 mL/min [facility] LAB [place] Comment: The eGFR is not validated for use in drug dosing adjustments. Continue to use estimated creatinine clearance per dosing reference text. Please contact the Clinical Pharmacist for questions. Specimen Blood Performing Organization Address [facility] Ph one Number [facility] LAB [address] [place] [address] * POC GLUCOSE (08/11/2019 9:01 PM COMPENSATION VICE PRESIDENT) Glucose, POC 114 (H) 70 - 100 MG/DL [facility] LAB Specimen Performing Organization Address [facility] one Number MAIN LAB [address] [place] [id number] * POC GLUCOSE (08/11/2019 2:25 PM COMPENSATION VICE PRESIDENT) Glucose, POC 117 (H) 70 - 100 MG/DL [facility] LAB Specimen Performing Organization Address [facility] Ph one Number [facility] LAB [address] [place] [address] * POC GLUCOSE (08/11/2019 8:43 AM COMPENSATION VICE PRESIDENT) Glucose, POC 147 (H) 70 - 100 MG/DL [facility] LAB Specimen Performing Organization Address [facility] one Number [facility] LAB [address] [place] [phone] * CHEST SINGLE VIEW (08/11/2019 4:42 AM COMPENSATION VICE PRESIDENT) Specimen Impressions Performed At No significant change in bilateral pleural effusions and patchy bilateral [facility] RAD RESULTS pulmonary opacities. No definite pneumo thorax. By my electronic signature, I attest th at I have personally reviewed the images for this examination and formulated the interpretations and opinions expressed in this report Finalized by ARIADNA CHAVEZ M.D. on 08/11 10:15 AM. Dictated by Cameron Goncalves M.D. on 08/11/2019 9:51 AM. Narrative Performed At Procedure: CHEST SINGLE VIEW [facility] RAD RESULTS Clinical Indication: Empyema, chest t ube Comparison: Chest radiograph one day prior Findings: The cardiomediastinal silhouette appear s unchanged. There is enlargement of the central pulmonary arteries. No signific ant change in scattered patchy pulmonary opacities bilaterally. No significant c hange in bilateral pleural effusions. No pneumothorax. Right IJ central venous c atheter remains in place. Procedure Note Interface, Radiant Results - 08/11/2019 10:18 AM COMPENSATION VICE PRESIDENT Procedure: CHEST SINGLE VIEW Clinical Indication: Empyema, chest tube Comparison: Chest radiograph one day prior Findings: The cardiomediastinal silhouette appears unchanged. There is enlargement of the central pulmonary arteries. No significant change in scattered patchy pulmonary opacities bilaterally. No significant change in bilateral pleural effusions. No pneumothorax. Right IJ central venous catheter remains in place. IMPRESSION No significant change in bilateral pleural effusions and patchy bilateral pulmonary opacities. No definite pneumothorax. By my electronic signature, I attest that I have personally reviewed the images for this examination and formulated the interpretations and opinions expressed in this report Finalized by ARIADNA CHAVEZ M.D. on 08/11/2019 10:15 AM. Dictated by Cameron Goncalves M.D. on 08/11/2019 9:51 AM. Performing Organization Address [facility] Ph one Number [facility] RAD RESULTS * MAGNESIUM (08/11/2019 3:14 AM COMPENSATION VICE PRESIDENT) Magnesium 1.9 1.6 - 2.6 mg/dL [facility] MAIN LAB Specimen Blood Performing Organization Address [facility] Ph one Number [facility] MAIN LAB [address] [place] [address] * BASIC METABOLIC PANEL (08/11/2019 3:14 AM COMPENSATION VICE PRESIDENT) Sodium 145 137 - 147 MMOL/L [facility] MAIN LAB Potassium 4.7 3.5 - 5.1 MMOL/L [facility] MAIN [facility] Chloride 101 98 - 110 MMOL/L [facility] MAIN [facility] CO2 36 (H) 21 - 30 MMOL/L [facility] MAIN [facility] Anion Gap 8 3 - 12 [facility] MAIN LAB Glucose 90 70 - 100 MG/DL [facility] MAIN [facility] Blood Urea 38 (H) 7 - 25 MG/DL [facility] MAIN [facility] Nitrogen Creatinine 1.22 0.4 - 1.24 MG/DL [facility] MAIN LAB Calcium 8.8 8.5 - 10.6 MG/DL [facility] MAIN LAB eGFR Non 60 (L) >60 mL/min [facility] MAIN LAB Comment: [place] The eGFR is not validated f or use in drug dosing adjustments. Continue to use estimated creatinine clearance per dosing reference text. Please contact the Clinical Pharmacist for questions. eGFR >60 >60 mL/min [facility] MAIN LAB [place] Comment: The eGFR is not validated for use in drug dosing adjustments. Continue to use estimated creatinine clearance per dosing reference text. Please contact the Clinical Pharmacist for questions. Specimen Blood Performing Organization Address City/State/Zipcode Ph one Number [facility] MAIN LAB [address] [place] [address] * CBC AND DIFF (08/11/2019 3:14 AM COMPENSATION VICE PRESIDENT) White Blood 11.9 (H) 4.5 - 11.0 K/UL [facility] MAIN LAB Cells RBC 3.16 (L) 4.4 - 5.5 M/UL [facility] MAIN LAB Hemoglobin 9.3 (L) 13.5 - 16.5 GM/DL [facility] MAIN LAB Hematocrit 28.1 (L) 40 - 50 % [facility] MAIN LAB MCV 88.8 80 - 100 FL [facility] MAIN LAB MCH 29.5 26 - 34 PG [facility] MAIN LAB MCHC 33.2 32.0 - 36.0 G/DL [facility] MAIN LAB RDW 17.2 (H) 11 - 15 % [facility] MAIN LAB Platelet Count 108 (L)Comment: Confirmed by 150 - 400 K/UL K [facility] MAIN LAB smear MPV 8.2 7 - 11 FL [facility] MAIN LAB Neutrophils 78 (H) 41 - 77 % [facility] MAIN LAB Lymphocytes 10 (L) 24 - 44 % [facility] MAIN LAB Monocytes 9 4 - 12 % [facility] MAIN LAB Eosinophils 2 0 - 5 % [facility] MAIN [facility] Basophils 1 0 - 2 % [facility] MAIN [facility] Absolute 9.30 (H) 1.8 - 7.0 K/UL [facility] MAIN LAB Neutrophil Count Absolute Lymph 1.20 1.0 - 4.8 K/UL [facility] MAIN LAB Count Absolute 1.10 (H) 0 - 0.80 K/UL MAIN LAB Monocyte Count Absolute 0.20 0 - 0.45 K/UL MAIN LAB Eosinophil Count Absolute 0.10 0 - 0.20 K/UL MAIN LAB Basophil Count Specimen Blood Performing Organization Address [facility] one Number [facility] MAIN LAB [address] [place] [address] * POC GLUCOSE (08/11/2019 2:14 AM COMPENSATION VICE PRESIDENT) Glucose, POC 100 70 - 100 MG/DL [facility] MAIN LAB Specimen Performing Organization Address [facility] one Number [facility] MAIN LAB [address] [place] [address] * POC GLUCOSE (08/10/2019 8:52 PM COMPENSATION VICE PRESIDENT) Glucose, POC 99 70 - 100 MG/DL [facility] MAIN LAB Specimen Performing Organization Address [facility] one Number MAIN LAB [address] [place] [address] * CHEST SINGLE VIEW (08/10/2019 2:56 PM COMPENSATION VICE PRESIDENT) Specimen Impressions Performed At 1. Interval removal of the right thoracostomy tube without definite [facility] RAD RESULTS pneumothorax.. 2. Persistent moderate cardiomegaly, small bilateral pleural effusions, and scattered patchy bilateral pulmonary op acities. By my electronic signature, I attest th at I have personally reviewed the images for this examination and formulated the interpretations and opinions expressed in this report Finalized by ARIADNA CHAVEZ M.D. on 08/11 8:21 AM. Dictated by Cameron Goncalves M.D. on 08/11/2019 7:40 AM. Narrative Performed At Procedure: CHEST SINGLE VIEW [facility] RAD RESULTS Clinical Indication: Chest tube remov al Comparison: Chest radiograph earlier same day Findings: There has been interval removal of the right thoracostomy tube. A right IJ central venous catheter remains in jeanette lar position. Unchanged moderate cardiomegaly. Persistent scattered patc hy bilateral pulmonary opacities. Persistent small bilateral pleural effu sions. No definite pneumothorax. Procedure Note Interface, Radiant Results - 08/11/2019 8:24 AM COMPENSATION VICE PRESIDENT Procedure: CHEST SINGLE VIEW Clinical Indication: Chest tube removal Comparison: Chest radiograph earlier same day Findings: There has been interval removal of the right thoracostomy tube. A right IJ central venous catheter remains in similar position. Unchanged moderate cardiomegaly. Persistent scattered patchy bilateral pulmonary opacities. Persistent small bilateral pleural effusions. No definite pneumothorax. IMPRESSION 1. Interval removal of the right thorac ostomy tube without definite pneumothorax.. 2. Persistent moderate cardiomegaly, sm all bilateral pleural effusions, and scattered patchy bilateral pulmonary opacities. By my electronic signature, I attest that I have personally reviewed the images for this examination and formulated the interpretations and opinions expressed in this report Finalized by ARIADNA CHAVEZ M.D. on 08/11/2019 8:21 AM. Dictated by Cameron Goncalves M.D. on 08/11/2019 7:40 AM. Performing Organization Address [facility] Ph one Number [facility] RAD RESULTS * POC GLUCOSE (08/10/2019 2:45 PM COMPENSATION VICE PRESIDENT) Glucose, POC 98 70 - 100 MG/DL MAIN LAB Specimen Performing Organization Address [facility] one Number MAIN LAB [address] [place] [address] * POC GLUCOSE (08/10/2019 8:37 AM COMPENSATION VICE PRESIDENT) Glucose, POC 76 70 - 100 MG/DL MAIN LAB Specimen Performing Organization Address [facility] Ph one Number MAIN LAB [address] [place] [address] * POC GLUCOSE (08/10/2019 4:38 AM COMPENSATION VICE PRESIDENT) Glucose, POC 162 (H) 70 - 100 MG/DL MAIN LAB Specimen Performing Organization Address [facility] one Number MAIN LAB [address] [place] [address] * CHEST SINGLE VIEW (08/10/2019 4:28 AM COMPENSATION VICE PRESIDENT) Specimen Impressions Performed At Stable chest radiograph with persistent moderate cardiomegaly, bilateral pleural [facility] RAD RESULTS effusions, and scattered patchy bilater al pulmonary opacities. By my electronic signature, I attest th at I have personally reviewed the images for this examination and formulated the interpretations and opinions expressed in this report Finalized by ARIADNA CHAVEZ M.D. on 08/10 9:36 AM. Dictated by Cruzito Villagomez MD on 08/10/2019 9:29 AM. Narrative Performed At TECHNIQUE: CHEST SINGLE VIEW [facility] RAD RESULTS CLINICAL INDICATION: Male, 63 years old . Chest tube follow-up COMPARISON: Previous day chest radiogra ph. FINDINGS: Right internal jugular central venous c atheter remains in similar position. Right thoracostomy tube remains in jeanette lar position. Stable moderate cardiomegaly. No significant change in scattered patchy bilateral pulmonary opacities. Persistent small bilateral p leural effusions. No pneumothorax. Procedure Note Interface, Radiant Results - 08/10/2019 9:39 AM COMPENSATION VICE PRESIDENT TECHNIQUE: CHEST SINGLE VIEW CLINICAL INDICATION: Male, 63 years old. Chest tube follow-up COMPARISON: Previous day chest radiograph. FINDINGS: Right internal jugular central venous catheter remains in similar position. Right thoracostomy tube remains in similar position. Stable moderate cardiomegaly. No significant change in scattered patchy bilateral pulmonary opacities. Persistent small bilateral pleural effusions. No pneumothorax. IMPRESSION Stable chest radiograph with persistent moderate cardiomegaly, bilateral pleural effusions, and scattered patchy bilateral pulmonary opacities. By my electronic signature, I attest that I have personally reviewed the images for this examination and formulated the interpretations and opinions expressed in this report Finalized by ARIADNA CHAVEZ M.D. on 08/10/2019 9:36 AM. Dictated by Cruzito Villagomez MD on 08/10/2019 9:29 AM. Performing Organization Address City[facility] Ph one Number [facility] RAD RESULTS * MAGNESIUM (08/10/2019 3:40 AM COMPENSATION VICE PRESIDENT) Magnesium 1.9 1.6 - 2.6 mg/dL [facility] MAIN LAB Specimen Blood Performing Organization Address [facility] Ph one Number [facility] MAIN LAB [address] [place] [address] * BASIC METABOLIC PANEL (08/10/2019 3:40 AM COMPENSATION VICE PRESIDENT) Sodium 145 137 - 147 MMOL/L [facility] MAIN LAB Potassium 4.2 3.5 - 5.1 MMOL/L [facility] MAIN [facility] Chloride 100 98 - 110 MMOL/L [facility] MAIN [facility] CO2 38 (H) 21 - 30 MMOL/L [facility] MAIN LAB Anion Gap 7 3 - 12 [facility] MAIN LAB Glucose 195 (H) 70 - 100 MG/DL [facility] MAIN LAB Blood Urea 33 (H) 7 - 25 MG/DL [facility] MAIN LAB Nitrogen Creatinine 1.24 0.4 - 1.24 MG/DL [facility] MAIN LAB Calcium 8.9 8.5 - 10.6 MG/DL [facility] MAIN LAB eGFR Non 59 (L) >60 mL/min [facility] MAIN LAB Comment: [place] The eGFR is not validated f or use in drug dosing adjustments. Continue to use estimated creatinine clearance per dosing reference text. Please contact the Clinical Pharmacist for questions. eGFR >60 >60 mL/min [facility] MAIN LAB [place] Comment: The eGFR is not validated for use in drug dosing adjustments. Continue to use estimated creatinine clearance per dosing reference text. Please contact the Clinical Pharmacist for questions. Specimen Blood Performing Organization Address City/[facility] Ph one Number [facility] MAIN LAB [address] [place] [address] * CBC AND DIFF (08/10/2019 3:40 AM COMPENSATION VICE PRESIDENT) White Blood 7.0 4.5 - 11.0 K/UL [facility] MAIN LAB Cells RBC 3.19 (L) 4.4 - 5.5 M/UL [facility] MAIN LAB Hemoglobin 9.4 (L) 13.5 - 16.5 GM/DL [facility] MAIN LAB Hematocrit 28.6 (L) 40 - 50 % [facility] MAIN LAB MCV 89.5 80 - 100 FL [facility] MAIN LAB MCH 29.5 26 - 34 PG [facility] MAIN LAB MCHC 33.0 32.0 - 36.0 G/DL [facility] MAIN LAB RDW 17.6 (H) 11 - 15 % [facility] MAIN LAB Platelet Count 102 (L) 150 - 400 K/UL [facility] MAIN LAB MPV 7.1 7 - 11 FL [facility] MAIN LAB Neutrophils 77 41 - 77 % [facility] MAIN LAB Lymphocytes 10 (L) 24 - 44 % [facility] MAIN LAB Monocytes 9 4 - 12 % [facility] MAIN LAB Eosinophils 3 0 - 5 % [facility] MAIN LAB Basophils 1 0 - 2 % [facility] MAIN LAB Absolute 5.40 1.8 - 7.0 K/UL [facility] MAIN LAB Neutrophil Count Absolute Lymph 0.70 (L) 1.0 - 4.8 K/UL [facility] MAIN LAB Count Absolute 0.60 0 - 0.80 K/UL [facility] MAIN LAB Monocyte Count Absolute 0.20 0 - 0.45 K/UL [facility] MAIN LAB Eosinophil Count Absolute 0.10 0 - 0.20 K/UL [facility] MAIN LAB Basophil Count Specimen Blood Performing Organization Address [facility] Ph one Number [facility] MAIN LAB [address] [place] [address] * POC GLUCOSE (08/09/2019 9:47 PM COMPENSATION VICE PRESIDENT) Glucose, POC 108 (H) 70 - 100 MG/DL [facility] MAIN LAB Specimen Performing Organization Address [facility] Ph [facility] Number MA[facility] LAB [address] [place] [address] * BNP (B-TYPE NATRIURETIC PEPTI) (08/09/2019 4:00 PM COMPENSATION VICE PRESIDENT) B Type 877.0 (H) 0 - 100 PG/ML MAIN LAB Natriuretic Peptide Specimen Blood Performing Organization Address [facility] Ph one Number MAIN LAB [address] [place] [address] * POC GLUCOSE (08/09/2019 3:46 PM COMPENSATION VICE PRESIDENT) Glucose, POC 113 (H) 70 - 100 MG/DL MAIN LAB Specimen Performing Organization Address [facility] Ph one Number MAIN LAB [address] [place] [address] * POC GLUCOSE (08/09/2019 1:13 PM COMPENSATION VICE PRESIDENT) Glucose, POC 109 (H) 70 - 100 MG/DL MAIN LAB Specimen Performing Organization Address [facility] Ph one Number MAIN LAB [address] [place] [address] * MAGNESIUM (08/09/2019 1:10 PM COMPENSATION VICE PRESIDENT) Magnesium 1.9 1.6 - 2.6 mg/dL MAIN LAB Specimen Blood Performing Organization Address [facility] Ph one Number MAIN LAB [address] [place] [address] * POTASSIUM (08/09/2019 1:10 PM COMPENSATION VICE PRESIDENT) Potassium 3.9 3.5 - 5.1 MMOL/L MAIN LAB Specimen Blood Performing Organization Address [facility] Ph one Number MAIN LAB [address] [place] [address] * MAGNESIUM (08/09/2019 8:05 AM COMPENSATION VICE PRESIDENT) Magnesium 2.1 1.6 - 2.6 mg/dL MAIN LAB Specimen Blood Performing Organization Address [facility] Ph one Number MAIN LAB [address] [place] [address] * POTASSIUM (08/09/2019 8:05 AM COMPENSATION VICE PRESIDENT) Potassium 4.0 3.5 - 5.1 MMOL/L MAIN LAB Specimen Blood Performing Organization Address [facility] one Number MAIN LAB [address] [place] [address] * BLOOD GASES, ARTERIAL (08/09/2019 8:05 AM COMPENSATION VICE PRESIDENT) pH-Arterial 7.39 7.35 - 7.45 [facility] MAIN LAB pCO2-Arterial 61 (H) 35 - 45 MMHG [facility] MAIN LAB pO2-Arterial 103 (H) 80 - 100 MMHG [facility] MAIN LAB Base 9.4 MMOL/L [facility] MAIN LAB Excess-Arterial O2 Sat-Arterial 97.9 95 - 99 % [facility] MAIN LAB Bicarbonate-ART 33.2 (H) 21 - 28 MMOL/L MAIN LAB -Jez Specimen Blood, arterial - Blood Performing Organization Address [facility] Ph one Number MAIN LAB [address] [place] [address] * POC GLUCOSE (08/09/2019 8:04 AM COMPENSATION VICE PRESIDENT) Glucose, POC 75 70 - 100 MG/DL MAIN LAB Specimen Performing Organization Address [facility] Ph one Number MAIN LAB [address] [place] [address] * CHEST SINGLE VIEW (08/09/2019 4:38 AM COMPENSATION VICE PRESIDENT) Specimen Impressions Performed At 1. Slight progression in diffuse bila teral mixed primarily alveolar opacities, [facility] RAD RESULTS likely representing edema and/or infect ion. 2. Persistent cardiomegaly and small bilateral pleural effusions. Approved by Cameron Max MD on 2018 10:11 AM By my electronic signature, I attest th at I have personally reviewed the images for this examination and formulated the interpretations and opinions expressed in this report Finalized by Soto Abreu M.D. on 2018 10:25 AM. Dictated by Cameron Max MD on 08/09/2019 9:08 AM. Narrative Performed At CHEST SINGLE VIEW [facility] RAD RESULTS History: Male, 63 years old. Empyema, c hest tube. Comparison: Chest radiograph August. Findings: Right-sided thoracostomy tube and right IJ central venous catheter are in similar position. Interval removal of a endotracheal tube and enteric tube. Cardiomegaly without pulmonary venous c ongestion. Diffuse bilateral predominantly alveolar opacities have s lightly increased. Small bilateral pleural effusions. No pneumothorax. Procedure Note Interface, Radiant Results - 08/09/2019 10:29 AM COMPENSATION VICE PRESIDENT CHEST SINGLE VIEW History: Male, 63 years old. Empyema, chest tube. Comparison: Chest radiograph August 08, 2019. Findings: Right-sided thoracostomy tube and right IJ central venous catheter are in similar position. Interval removal of a endotracheal tube and enteric tube. Cardiomegaly without pulmonary venous congestion. Diffuse bilateral predominantly alveolar opacities have slightly increased. Small bilateral pleural effusions. No pneumothorax. IMPRESSION 1. Slight progression in diffuse bilate ral mixed primarily alveolar opacities, likely representing edema and/or infection. 2. Persistent cardiomegaly and small bi lateral pleural effusions. Approved by Cameron Max MD on 08/09/2019 10:11 AM By my electronic signature, I attest that I have personally reviewed the images for this examination and formulated the interpretations and opinions expressed in this report Finalized by Soto Abreu M.D. on 08/09/2019 10:25 AM. Dictated by Cameron Max MD on 08/09/2019 9:08 AM. Performing Organization Address City/[facility] Ph one Number [facility] RAD RESULTS * MAGNESIUM (08/09/2019 3:40 AM COMPENSATION VICE PRESIDENT) Magnesium 1.8 1.6 - 2.6 mg/dL [facility] MAIN LAB Specimen Blood Performing Organization Address [facility] Ph one Number KU MAIN LAB [address] [place] [address] * BASIC METABOLIC PANEL (08/09/2019 3:40 AM COMPENSATION VICE PRESIDENT) Sodium 147 137 - 147 MMOL/L [facility] MAIN LAB Potassium 3.7 3.5 - 5.1 MMOL/L [facility] MAIN LAB Chloride 103 98 - 110 MMOL/L [facility] MAIN LAB CO2 37 (H) 21 - 30 MMOL/L [facility] MAIN LAB Anion Gap 7 3 - 12 [facility] MAIN LAB Glucose 74 70 - 100 MG/DL [facility] MAIN LAB Blood Urea 33 (H) 7 - 25 MG/DL [facility] MAIN LAB Nitrogen Creatinine 1.27 (H) 0.4 - 1.24 MG/DL [facility] MAIN LAB Calcium 9.0 8.5 - 10.6 MG/DL [facility] MAIN LAB eGFR Non 57 (L) >60 mL/min [facility] MAIN LAB Comment: [place] The eGFR is not validated f or use in drug dosing adjustments. Continue to use estimated creatinine clearance per dosing reference text. Please contact the Clinical Pharmacist for questions. eGFR >60 >60 mL/min K[facility] MAIN LAB [place] Comment: The eGFR is not validated for use in drug dosing adjustments. Continue to use estimated creatinine clearance per dosing reference text. Please contact the Clinical Pharmacist for questions. Specimen Blood Performing Organization Address City/[facility] Ph one Number [facility] MAIN LAB [address] [place] [address] * CBC AND DIFF (08/09/2019 3:40 AM COMPENSATION VICE PRESIDENT) White Blood 7.4 4.5 - 11.0 K/UL [facility] MAIN LAB Cells RBC 3.14 (L) 4.4 - 5.5 M/UL [facility] MAIN LAB Hemoglobin 9.0 (L) 13.5 - 16.5 GM/DL [facility] MAIN LAB Hematocrit 27.7 (L) 40 - 50 % [facility] MAIN LAB MCV 88.3 80 - 100 FL [facility] MAIN LAB MCH 28.6 26 - 34 PG [facility] MAIN LAB MCHC 32.3 32.0 - 36.0 G/DL [facility] MAIN LAB RDW 17.8 (H) 11 - 15 % [facility] MAIN LAB Platelet Count 113 (L) 150 - 400 K/UL [facility] MAIN LAB MPV 7.1 7 - 11 FL [facility] MAIN LAB Neutrophils 75 41 - 77 % [facility] MAIN LAB Lymphocytes 12 (L) 24 - 44 % [facility] MAIN LAB Monocytes 10 4 - 12 % [facility] MAIN LAB Eosinophils 2 0 - 5 % [facility] MAIN LAB Basophils 1 0 - 2 % [facility] MAIN LAB Absolute 5.60 1.8 - 7.0 K/UL [facility] MAIN LAB Neutrophil Count Absolute Lymph 0.90 (L) 1.0 - 4.8 K/UL [facility] MAIN LAB Count Absolute 0.70 0 - 0.80 K/UL [facility] MAIN LAB Monocyte Count Absolute 0.10 0 - 0.45 K/UL [facility] MAIN LAB Eosinophil Count Absolute 0.00 0 - 0.20 K/UL [facility] MAIN LAB Basophil Count Specimen Blood Performing Organization Address City/[facility]/Zipcode Ph one Number K[facility] MAIN LAB [address] [place] [address] * POC GLUCOSE (08/08/2019 8:51 PM COMPENSATION VICE PRESIDENT) Glucose, POC 86 70 - 100 MG/DL MAIN LAB Specimen Performing Organization Address City/[facility] Ph one Number MAIN LAB [address] [place] [address] * POC GLUCOSE (08/08/2019 7:00 PM COMPENSATION VICE PRESIDENT) Glucose, POC 87 70 - 100 MG/DL [facility] MAIN LAB Specimen Performing Organization Address City/[facility] Ph one Number MAIN LAB [address] [place] [address] * BLOOD GASES, ARTERIAL (08/08/2019 2:05 PM COMPENSATION VICE PRESIDENT) pH-Arterial 7.36 7.35 - 7.45 MAIN LAB pCO2-Arterial 56 (H) 35 - 45 MMHG MAIN LAB pO2-Arterial 239 (H) 80 - 100 MMHG MAIN LAB Base 5.4 MMOL/L MAIN LAB Excess-Arterial O2 Sat-Arterial 99.5 (H) 95 - 99 % MAIN LAB Bicarbonate-ART 29.4 (H) 21 - 28 MMOL/L MAIN LAB -Jez Specimen Blood, arterial - Blood Performing Organization Address [facility] Ph one Number MAIN LAB [address] [place] [address] * POC IONIZED CALCIUM (08/08/2019 1:06 PM COMPENSATION VICE PRESIDENT) Ionized 1.26 1.0 - 1.3 MMOL/L MAIN LAB Calcium-POC Specimen Performing Organization Address [facility] Ph one Number MAIN LAB [address] [place] [address] * POC SODIUM (08/08/2019 1:06 PM COMPENSATION VICE PRESIDENT) Sodium-POC 142 137 - 147 MMOL/L MAIN LAB Specimen Performing Organization Address City/[facility] Ph one Number MAIN LAB [address] [place] [address] * POC POTASSIUM (08/08/2019 1:06 PM COMPENSATION VICE PRESIDENT) Potassium-POC 3.7 3.5 - 5.1 MMOL/L MAIN LAB Specimen Performing Organization Address City/[facility] Ph one Number MAIN LAB [address] [place] [address] * POC HEMATOCRIT (08/08/2019 1:06 PM COMPENSATION VICE PRESIDENT) Hemoglobin POC 9.5 (L) 13.5 - 16.5 GM/DL KU MAIN LAB Hematocrit POC 28.0 (L) 40 - 50 % [facility] MAIN LAB Specimen Performing Organization Address [facility] one Number MAIN LAB [address] [place] [address] * POC BLOOD GAS ARTERIAL (08/08/2019 1:06 PM COMPENSATION VICE PRESIDENT) PH-ART-POC 7.39 7.35 - 7.45 MAIN LAB NYR5-YLE-DBR 60 (H) 35 - 45 MMHG KU MAIN LAB PO2-ART-POC 86 80 - 100 MMHG MAIN LAB Base Ex-ART-POC 12.0 MMOL/L MAIN LAB O2 Sat-ART-POC 96.0 95 - 99 % MAIN LAB Bicarbonate-ART 36.9 (H) 21 - 28 MMOL/L MAIN LAB -POC Specimen Performing Organization Address [facility] one Number MAIN LAB [address] [place] [id number] * POC GLUCOSE (08/08/2019 1:04 PM COMPENSATION VICE PRESIDENT) Glucose, POC 91 70 - 100 MG/DL MAIN LAB Specimen Performing Organization Address [facility] one Number MAIN LAB [address] [place] [address] * BLOOD GASES, ARTERIAL (08/08/2019 11:00 AM COMPENSATION VICE PRESIDENT) pH-Arterial 7.40 7.35 - 7.45 MAIN LAB pCO2-Arterial 55 (H) 35 - 45 MMHG MAIN LAB pO2-Arterial 86 80 - 100 MMHG MAIN LAB Base 7.8 MMOL/L MAIN LAB Excess-Arterial O2 Sat-Arterial 97.4 95 - 99 % MAIN LAB Bicarbonate-ART 31.6 (H) 21 - 28 MMOL/L MAIN LAB -Jez Specimen Blood, arterial - Blood Performing Organization Address [facility] Ph one Number MAIN LAB [address] [place] [address] * CHEST SINGLE VIEW (08/08/2019 7:44 AM COMPENSATION VICE PRESIDENT) Specimen Impressions Performed At 1. Support devices as above. [facility] RAD RESULTS 2. Slight improvement in patchy left gr eater than right mid and lower lung zone opacities suspicious for infection and/ or aspiration superimposed on pulmonary edema. 3. Small bilateral pleural effusions wi thout definite pneumothorax. Finalized by Jose Miguel Angela M.D. o n 08/08/2019 1:12 PM. Dictated by Jose Miguel Angela M.D. on 08/08/2019 1 :10 PM. Narrative Performed At CHEST SINGLE VIEW [facility] RAD RESULTS INDICATION: empyema, chest tube COMPARISON STUDY: August 07, 2019. FINDINGS: Life Support Devices: Slight reposition ing of the right-sided chest tube. Remaining support devices are unchanged . Lungs: The lung volume is normal. Sligh t improvement in patchy left greater than right mid and lower lung zone opacities . Pleura: Small pleural effusions without pneumothorax. Heart and Mediastinum: The cardiomedias tinal silhouette and great vessels are stable. Procedure Note Interface, Radiant Results - 08/08/2019 1:15 PM COMPENSATION VICE PRESIDENT CHEST SINGLE VIEW INDICATION: empyema, chest tube COMPARISON STUDY: August 07, 2019. FINDINGS: Life Support Devices: Slight repositioning of the right-sided chest tube. Remaining support devices are unchanged. Lungs: The lung volume is normal. Slight improvement in patchy left greater than right mid and lower lung zone opacities. Pleura: Small pleural effusions without pneumothorax. Heart and Mediastinum: The cardiomediastinal silhouette and great vessels are stable. IMPRESSION 1. Support devices as above. 2. Slight improvement in patchy left gre ater than right mid and lower lung zone opacities suspicious for infection and/or aspiration superimposed on pulmonary edema. 3. Small bilateral pleural effusions wit hout definite pneumothorax. Finalized by Jose Miguel Angela M.D. on 08/08/2019 1:12 PM. Dictated by Jose Miguel Angela M.D. on 08/08/2019 1:10 PM. Performing Organization Address City/State/[facility] Ph one Number [facility] RAD RESULTS * POC GLUCOSE (08/08/2019 7:27 AM COMPENSATION VICE PRESIDENT) Glucose, POC 85 70 - 100 MG/DL [facility] MAIN LAB Specimen Performing Organization Address City/State/[facility] Ph one Number [facility] MAIN LAB [address] [place] [address] * BLOOD GASES, ARTERIAL (08/08/2019 4:00 AM COMPENSATION VICE PRESIDENT) pH-Arterial 7.47 (H) 7.35 - 7.45 [facility] MAIN LAB pCO2-Arterial 44 35 - 45 MMHG KU MAIN LAB pO2-Arterial 81 80 - 100 MMHG KU MAIN LAB Base 7.5 MMOL/L MAIN LAB Excess-Arterial O2 Sat-Arterial 96.2 95 - 99 % MAIN LAB Bicarbonate-ART 31.2 (H) 21 - 28 MMOL/L MAIN LAB -Jez Specimen Blood, arterial - Blood Performing Organization Address [facility] Ph one Number MAIN LAB [address] [place] [address] * PTT (APTT) (08/08/2019 4:00 AM COMPENSATION VICE PRESIDENT) Pathologist [facility] APTT 26.6 24.0 - 36.5 SEC MAIN LAB Specimen Blood Performing Organization Address [facility] one Number MAIN LAB [address] [place] [address] * MAGNESIUM (08/08/2019 4:00 AM COMPENSATION VICE PRESIDENT) Pathologist [facility] Magnesium 2.0 1.6 - 2.6 mg/dL MAIN LAB Specimen Blood Performing Organization Address [facility] one Number MAIN LAB [address] [place] [address] * BASIC METABOLIC PANEL (08/08/2019 4:00 AM COMPENSATION VICE PRESIDENT) Sodium 145 137 - 147 MMOL/L MAIN LAB Potassium 4.3 3.5 - 5.1 MMOL/L MAIN LAB Chloride 101 98 - 110 MMOL/L MAIN LAB CO2 31 (H) 21 - 30 MMOL/L [facility] MAIN LAB Anion Gap 13 (H) 3 - 12 MAIN LAB Glucose 90 70 - 100 MG/DL MAIN LAB Blood Urea 38 (H) 7 - 25 MG/DL MAIN LAB Nitrogen Creatinine 1.38 (H) 0.4 - 1.24 MG/DL MAIN LAB Calcium 8.9 8.5 - 10.6 MG/DL MAIN LAB eGFR Non 52 (L) >60 mL/min MAIN LAB Comment: [place] The eGFR is not validated f or use in drug dosing adjustments. Continue to use estimated creatinine clearance per dosing reference text. Please contact the Clinical Pharmacist for questions. eGFR >60 >60 mL/min [facility] MAIN LAB [place] Comment: The eGFR is not validated for use in drug dosing adjustments. Continue to use estimated creatinine clearance per dosing reference text. Please contact the Clinical Pharmacist for questions. Specimen Blood Performing Organization Address City/State/Zipcode Ph one Number [facility] MAIN LAB [address] [place] [address] * CBC AND DIFF (08/08/2019 4:00 AM COMPENSATION VICE PRESIDENT) White Blood 8.5 4.5 - 11.0 K/UL K[facility] MAIN LAB Cells RBC 3.18 (L) 4.4 - 5.5 M/UL [facility] MAIN LAB Hemoglobin 9.1 (L) 13.5 - 16.5 GM/DL K[facility] MAIN LAB Hematocrit 27.8 (L) 40 - 50 % K[facility] MAIN LAB MCV 87.4 80 - 100 FL K[facility] MAIN LAB MCH 28.7 26 - 34 PG K[facility] MAIN LAB MCHC 32.8 32.0 - 36.0 G/DL K[facility] MAIN LAB RDW 17.7 (H) 11 - 15 % K[facility] MAIN LAB Platelet Count 125 (L) 150 - 400 K/UL K[facility] MAIN LAB MPV 7.4 7 - 11 FL K[facility] MAIN LAB Neutrophils 87 (H) 41 - 77 % [facility] MAIN LAB Lymphocytes 5 (L) 24 - 44 % K[facility] MAIN LAB Monocytes 8 4 - 12 % [facility] MAIN LAB Eosinophils 0 0 - 5 % [facility] MAIN LAB Basophils 0 0 - 2 % [facility] MAIN LAB Absolute 7.30 (H) 1.8 - 7.0 K/UL KU MAIN LAB Neutrophil Count Absolute Lymph 0.40 (L) 1.0 - 4.8 K/UL [facility] MAIN LAB Count Absolute 0.70 0 - 0.80 K/UL K[facility] MAIN LAB Monocyte Count Absolute 0.00 0 - 0.45 K/UL [facility] MAIN LAB Eosinophil Count Absolute 0.00 0 - 0.20 K/UL [facility] MAIN LAB Basophil Count Specimen Blood Performing Organization Address City/[facility]/Zipcode Ph one Number [facility] MAIN LAB [address] [place] [address] * POC GLUCOSE (08/07/2019 9:51 PM COMPENSATION VICE PRESIDENT) Glucose, POC 98 70 - 100 MG/DL [facility] MAIN LAB Specimen Performing Organization Address City/[facility]/Zipcode Ph one Number [facility] MAIN LAB [address] [place] [address] * BLOOD GASES, ARTERIAL (08/07/2019 6:34 PM COMPENSATION VICE PRESIDENT) pH-Arterial 7.44 7.35 - 7.45 K[facility] MAIN LAB pCO2-Arterial 50 (H) 35 - 45 MMHG KU MAIN LAB pO2-Arterial 85 80 - 100 MMHG KU MAIN LAB Base 8.6 MMOL/L K[facility] MAIN LAB Excess-Arterial O2 Sat-Arterial 97.5 95 - 99 % K[facility] MAIN LAB Bicarbonate-ART 32.4 (H) 21 - 28 MMOL/L MAIN LAB -Jez Specimen Blood, arterial - Blood Performing Organization Address [facility] one Number MAIN LAB [address] [place] [address] * MAGNESIUM (08/07/2019 6:34 PM COMPENSATION VICE PRESIDENT) Pathologist [facility] Magnesium 2.0 1.6 - 2.6 mg/dL MAIN LAB Specimen Blood Performing Organization Address [facility] one Number MAIN LAB [address] [place] [address] * CULTURE-BLOOD W/SENSITIVITY (08/07/2019 6:34 PM COMPENSATION VICE PRESIDENT) Pathologist [facility] Battery Name BLOOD CULTURE MAIN LAB Specimen BLOOD MAIN LAB Description RIGHT RADIAL ARTERIAL LINE Special NONE MAIN LAB Requests Culture NO GROWTH 5 DAYS MAIN LAB Report Status FINAL MAIN LAB 08/13/2019 Specimen Blood Performing Organization Address [facility] one Number MAIN LAB [address] [place] [id number] * LIPID PROFILE (08/07/2019 6:34 PM COMPENSATION VICE PRESIDENT) Pathologist [facility] Cholesterol 186 <200 MG/DL MAIN LAB Triglycerides 162 (H) <150 MG/DL MAIN LAB HDL 49 >40 MG/DL MAIN LAB LDL 69 <100 mg/dL MAIN LAB VLDL 32 MG/DL MAIN LAB Non HDL 137 MG/DL MAIN LAB Cholesterol Comment: Calculated non-HDL Cholesterol (non-HDL-C) indirectly measures LDL-C, Lp(a), IDL-C, and VLDL-C. It is a surrogate marker for Apoprotein B. Goal should be less than 130 mg/dL. Specimen Blood Performing Organization Address [facility] one Number MAIN LAB [address] [place] [address] * HEMOGLOBIN A1C (08/07/2019 6:34 PM COMPENSATION VICE PRESIDENT) Hemoglobin A1C 5.9 4.0 - 6.0 % K[facility] MAIN LAB Comment: The ADA recommends that most patients with type 1 and type 2 diabetes maintain an A1c level <7%. Specimen Blood Performing Organization Address City/[facility] Ph one Number [facility] MAIN LAB [address] [place] [address] * COMPREHENSIVE METABOLIC PANEL (08/07/2019 6:34 PM COMPENSATION VICE PRESIDENT) Sodium 146 137 - 147 MMOL/L KU [...] LAB eGFR Non 54 (L) >60 mL/min KU MAIN LAB Comment: [place] The eGFR is not validated f or use in drug dosing adjustments. Continue to use estimated creatinine clearance per dosing reference text. Please contact the Clinical Pharmacist for questions. eGFR >60 >60 mL/min KU MAIN LAB [place] Comment: The eGFR is not validated for use in drug dosing adjustments. Continue to use estimated creatinine clearance per dosing reference text. Please contact the Clinical Pharmacist for questions. Specimen Blood Performing Organization Address City/State/[facility] Ph one Number [facility] MAIN LAB [address] [place] [address] * PTT (APTT) (08/07/2019 6:34 PM COMPENSATION VICE PRESIDENT) APTT 27.7 24.0 - 36.5 SEC [facility]U MAIN LAB Specimen Blood Performing Organization Address [facility] Ph one Number KU MAIN LAB [address] [place] [address] * PROTIME INR (PT) (08/07/2019 6:34 PM COMPENSATION VICE PRESIDENT) [facility] INR 1.0 0.8 - 1.2 KU MAIN LAB Specimen Blood Performing Organization Address [facility] Ph one Number KU MAIN LAB [address] [place] [address] * CBC AND DIFF (08/07/2019 6:34 PM COMPENSATION VICE PRESIDENT) [facility] White Blood 7.7 4.5 - 11.0 K/UL MAIN LAB Cells RBC 3.22 (L) 4.4 - 5.5 M/UL KU MAIN LAB Hemoglobin 9.4 (L) 13.5 - 16.5 GM/DL KU MAIN LAB Hematocrit 28.3 (L) 40 - 50 % KU MAIN LAB MCV 87.8 80 - 100 FL KU MAIN LAB MCH 29.1 26 - 34 PG KU MAIN LAB MCHC 33.2 32.0 - 36.0 G/DL KU MAIN LAB RDW 17.0 (H) 11 - 15 % KU MAIN LAB Platelet Count 108 (L) 150 - 400 K/UL KU MAIN LAB MPV 7.3 7 - 11 FL KU MAIN LAB Neutrophils 95 (H) 41 - 77 % KU MAIN LAB Lymphocytes 3 (L) 24 - 44 % KU MAIN LAB Monocytes 2 (L) 4 - 12 % KU MAIN LAB Eosinophils 0 0 - 5 % KU MAIN LAB Basophils 0 0 - 2 % KU MAIN LAB Absolute 7.30 (H) 1.8 - 7.0 K/UL KU MAIN LAB Neutrophil Count Absolute Lymph 0.20 (L) 1.0 - 4.8 K/UL KU MAIN LAB Count Absolute 0.20 0 - 0.80 K/UL KU MAIN LAB Monocyte Count Absolute 0.00 0 - 0.45 K/UL KU MAIN LAB Eosinophil Count Absolute 0.00 0 - 0.20 K/UL KU MAIN LAB Basophil Count Specimen Blood Performing Organization Address [facility] Ph one Number [facility] MAIN LAB [address] [place] [address] * CULTURE-BLOOD W/SENSITIVITY (08/07/2019 6:05 PM COMPENSATION VICE PRESIDENT) Battery Name BLOOD CULTURE KU MAIN LAB Specimen BLOOD KU MAIN LAB Description LEFT WRIST Special NONE KU MAIN LAB Requests Culture NO GROWTH 5 DAYS KU MAIN LAB Report Status FINAL [facility] MAIN LAB 08/13/2019 Specimen Blood Performing Organization Address [facility] one Number KU MAIN LAB [address] [place] [address] * CULTURE-URINE W/SENSITIVITY (08/07/2019 5:59 PM COMPENSATION VICE PRESIDENT) Battery Name URINE CULTURE KU MAIN LAB Specimen URINE KU MAIN LAB Description Special NONE KU MAIN LAB Requests Culture NO GROWTH KU MAIN LAB Report Status FINAL MAIN LAB 08/08/2019 Specimen Urine - Urine Performing Organization Address [facility] Ph one Number [facility] MAIN LAB [address] [place] [address] * CYTOLOGY FLUIDS (08/07/2019 5:58 PM COMPENSATION VICE PRESIDENT) Cytology [facility] [email or web address] Department of Pathology and Laboratory Medicine [address] [place] [address] Surgical Pathology Office: [phone] CYTOLOGY REPORT NAME: KEMAR LOPEZ CYTOLOGY #: [id number] MR #: [id number] ALT ID #: BILLING #: [id number] LOCATION: [facility] DATE OF PROCEDURE: 08/07/2019 AGE: 63 SEX: M DATE RECEIVED: 08/08/2019 : 1955 TIME RECEIVED: 09:43 PHYSICIAN: ANNIE TIRADO, MSN DATE OF REPORT: 08/09/2019 COPY TO: [...] MD Resident Specimen Pleural,Right Performing Organization Address [facility] Ph one Number MAIN LAB [address] [place] [address] * GRAM STAIN (08/07/2019 5:44 PM COMPENSATION VICE PRESIDENT) Battery Name GRAM STAIN [facility]U MAIN LAB Specimen PLEURAL FLUID MAIN LAB Description Special NONE MAIN LAB Requests Gram Stain FEW MAIN LAB NEUTROPHILS NO ORGANISMS SEEN Report Status FINAL MAIN LAB 08/08/2019 Specimen Pleural Fluid Performing Organization Address [facility] one Number MAIN LAB [address] [place] [address] * CULTURE-WOUND/TISSUE/FLUID(AEROBIC ONLY)W/SENSITIVITY (08/07/2019 5:44 PM COMPENSATION VICE PRESIDENT) Battery Name ROUTINE CULTURE KU MAIN LAB Specimen PLEURAL FLUID MAIN LAB Description Special NONE MAIN LAB Requests Direct Gram FEW MAIN LAB Stain NEUTROPHILS NO ORGANISMS SEEN Culture NO GROWTH 5 DAYS KU MAIN LAB Report Status FINAL MAIN LAB 08/12/2019 Specimen Pleural Fluid Performing Organization Address [facility] one Number MAIN LAB [address] [place] [address] * PLEURAL FLUID TOTAL PROTEIN (08/07/2019 5:44 PM COMPENSATION VICE PRESIDENT) Pleural Fluid 1.8 (H)Comment: Serum to <1.1 g/dL [facility] IN LAB Total Protein pleural fluid protein gradi ent >3.1 g/dL is suggestive of an exudate Specimen Pleural Fluid Performing Organization Address [facility] Ph one Number MAIN LAB [address] [place] [address] * PLEURAL FLUID PH (08/07/2019 5:44 PM COMPENSATION VICE PRESIDENT) Pleural Fluid 7.87 (H) 7.60 - 7.66 MAIN LAB Ph Specimen Pleural Fluid Performing Organization Address [facility] Ph one Number MAIN LAB [address] [place] [address] * PLEURAL FLUID LACTATE DEHYDROGENASE (08/07/2019 5:44 PM COMPENSATION VICE PRESIDENT) Pleural Fluid 98Comment: Higher levels 67 - 140 U/L KU ID IN LAB Lactate suggestive of exudate Dehydrogenase Specimen Pleural Fluid Performing Organization Address [facility] one Number MAIN LAB [address] [place] [address] * PLEURAL FLUID GLUCOSE (08/07/2019 5:44 PM COMPENSATION VICE PRESIDENT) Pleural Fluid 120 (H) 70 - 100 mg/dL MAIN LAB Glucose Comment: Glucose <60 mg/dL associated with parapneumonic effusion, tuberculosis, malignancy, empyema, and rheumatoid disease Specimen Pleural Fluid Performing Organization Address [facility] one Number MAIN LAB [address] [place] [address] * PLEURAL FLUID AMYLASE (08/07/2019 5:44 PM COMPENSATION VICE PRESIDENT) Pleural Fluid 125 U/L MAIN LAB Amylase Comment: Elevated pleural fluid value is a level higher than the upper limit of normal for plasma. Specimen Pleural Fluid Performing Organization Address [facility] one Number MAIN LAB [address] [place] [address] * CHEST SINGLE VIEW (08/07/2019 5:30 PM COMPENSATION VICE PRESIDENT) Specimen Impressions Performed At 1. Lines and tubes as above. The righ t IJ catheter tip is in high position in [facility] RAD RESULTS the region of the right internal jugula r and brachiocephalic vein junction. 2. Moderate cardiomegaly with indisti nct pulmonary vasculature and interstitial prominence, likely reflect ing congestion and edema. 3. Enlarged central pulmonary arterie s which can be seen with pulmonary hypertension. 4. Bibasilar consolidation, right gre ater than left. 5. Small bilateral pleural effusions, right greater than left. Approved by Khushbu Marin M.D. on 10:18 AM By my electronic signature, I attest th at I have personally reviewed the images for this examination and formulated the interpretations and opinions expressed in this report Finalized by Jef Sharma D.O. on 2018 5:51 PM. Dictated by Khushbu Marin M.D. on 08/08/2019 8:06 AM. Narrative Performed At CHEST SINGLE VIEW KU RAD RESULTS INDICATION: INTUBATION COMPARISON STUDY: Chest radiograph Dece [id number], outside CT chest August 07, 2019. FINDINGS: Life Support Devices: Endotracheal tube is in place with the tip above the balwinder. Gastric tube courses below the diaphragm with the tip overlying the region of the gastric body. A right sunny st tube overlies the right lung. Right IJ catheter with the tip in the region of the junction of the internal jugular vein and brachiocephalic vein. Lungs: Bibasilar consolidation, right g reater than left. Interstitial prominence throughout both lungs. Pleura: Small bilateral pleural effusio ns.. Heart and Mediastinum: Moderate cardiom egaly. Enlargement of the central pulmonary arteries and indistinct pulmo nary vasculature. Procedure Note Interface, Radiant Results - 08/08/2019 5:54 PM COMPENSATION VICE PRESIDENT CHEST SINGLE VIEW INDICATION: INTUBATION COMPARISON STUDY: Chest radiograph August 16, 2018, outside CT chest August 07, 2019. FINDINGS: Life Support Devices: Endotracheal tube is in place with the tip above the balwinder. Gastric tube courses below the diaphragm with the tip overlying the region of the gastric body. A right chest tube overlies the right lung. Right IJ catheter with the tip in the region of the junction of the internal jugular vein and brachiocephalic vein. Lungs: Bibasilar consolidation, right greater than left. Interstitial prominence throughout both lungs. Pleura: Small bilateral pleural effusions.. Heart and Mediastinum: Moderate cardiomegaly. Enlargement of the central pulmonary arteries and indistinct pulmonary vasculature. IMPRESSION 1. Lines and tubes as above. The right IJ catheter tip is in high position in the region of the right internal jugular and brachiocephalic vein junction. 2. Moderate cardiomegaly with indistinc t pulmonary vasculature and interstitial prominence, likely reflecting congestion and edema. 3. Enlarged central pulmonary arteries which can be seen with pulmonary hypertension. 4. Bibasilar consolidation, right great er than left. 5. Small bilateral pleural effusions, r ight greater than left. Approved by Khushbu Marin M.D. on 08/08/2019 10:18 AM By my electronic signature, I attest that I have personally reviewed the images for this examination and formulated the interpretations and opinions expressed in this report Finalized by Jef Sharma D.O. on 08/08/2019 5:51 PM. Dictated by Khushbu Marin M.D. on 08/08/2019 8:06 AM. Performing Organization Address [facility] Ph one Number RAD RESULTS * CULTURE-RESP,LOWER W/SENSITIVITY (08/07/2019 5:21 PM COMPENSATION VICE PRESIDENT) Battery Name LOWER RESP CULTURE KU MAIN LAB Specimen BRONCHIAL ALVEOLAR LAVAGE, RML KU [facility] N LAB Description Special NONE MAIN LAB Requests Direct Gram MODERATE MAIN LAB Stain NEUTROPHILS NO ORGANISMS SEEN Culture NO GROWTH 2 DAYS KU MAIN LAB Report Status FINAL MAIN LAB 08/10/2019 Specimen Bronchial Alveolar Lavage,RM Performing Organization Address [facility] Ph one Number MAIN LAB [id number] [place] [address] * GRAM STAIN (08/07/2019 5:21 PM COMPENSATION VICE PRESIDENT) Battery Name GRAM STAIN KU MAIN LAB Specimen [facility]ONCHIAL [facility]AGE, [facility] Description Special NONE MAIN LAB Requests Gram Stain MODERATE MAIN LAB NEUTROPHILS NO ORGANISMS SEEN Report Status FINAL MAIN LAB 08/07/2019 Specimen Bronch Lavage - Bronchial Alveolar Lavage,RML Performing Organization Address [facility] Ph one Number MAIN LAB [address] [place] [address] * TELEMETRY STRIPS-SCAN (08/07/2019 12:00 AM COMPENSATION VICE PRESIDENT) Narrative Performed At This result has an attachment that is n ot available. Ordered by an unspecified provider. documented in this encounter Visit Diagnoses Diagnosis Large pleural effusion - Primary Empyema, right (HCC) Empyema without mention of fistula Acute on chronic respiratory failure wi th hypercapnia (HCC) Chronic heart failure with preserved ej ection fraction (HFpEF) (HCC) COPD mixed type (HCC) Chronic airway obstruction, not elsewhe re classified Morbid obesity with BMI of 45.0-49.9, a dult (HCC) Morbid obesity Pulmonary artery hypertension (HCC) Other chronic pulmonary heart diseases Chronic obstructive pulmonary disease w ith acute exacerbation (HCC) Obstructive chronic bronchitis with exa cerbation Chronic congestive heart failure (HCC) Congestive heart failure, unspecified Type 2 diabetes mellitus (HCC) Type II or unspecified type diabetes me llitus without mention of complication, not stated as uncontrolled History of CHF (congestive heart failur e) Personal history of other diseases of c irculatory system documented in this encounter Administered Medications Action Date Dose Rate Site Medication Order MAR Action 08/14/2019 7:57 AM COMPENSATION VICE PRESIDENT 1,000 mg acetaminophen (TYLENOL) tablet 1,000 mg Given 1,000 mg, Oral, EVERY 6 HOURS, First dose (after last modification) on Mon08/09/19 at 0745, Until Discontinued, TOTAL ACETAMINOPHEN DOSE NOT TO EXCEED 4GM DAILY, 1,000 mg Given 08/13/2019 10:45 AM COMPENSATION VICE PRESIDENT 1,000 mg Given 08/13/2019 2:12 AM COMPENSATION VICE PRESIDENT 08/08/2019 12:14 PM COMPENSATION VICE PRESIDENT 2.5 mg albuterol 0.5% (PROVENTIL) nebulizer Given solution 2.5 mg 2.5 mg, Inhalation, RT EVERY 6 HOURS AND PRN, First dose on Mon08/07/19 at 2330, Until Discontinued, ADMINISTERED BY RT, 2.5 mg Given 08/08/2019 6:12 AM COMPENSATION VICE PRESIDENT 2.5 mg Given 08/08/2019 12:11 AM COMPENSATION VICE PRESIDENT 08/11/2019 12:41 PM COMPENSATION VICE PRESIDENT 2.5 mg albuterol 0.5% (PROVENTIL) nebulizer Given solution 2.5 mg 2.5 mg, Inhalation, RT EVERY 4 HOURS AND PRN, First dose (after last modification) on [place] 08/08/19 at 1600, Until Discontinued, ADMINISTERED BY RT, 2.5 mg Given 08/11/2019 9:18 AM COMPENSATION VICE PRESIDENT 2.5 mg Given 08/11/2019 4:12 AM COMPENSATION VICE PRESIDENT 08/14/2019 8:49 AM COMPENSATION VICE PRESIDENT 2.5 mg albuterol 0.5% (PROVENTIL) nebulizer Given solution 2.5 mg 2.5 mg, Inhalation, RT EVERY 4 HOURS WHILE AWAKE AND PRN, First dose (after last modification) on Mon08/11/19 at 1600, Until Discontinued, ADMINISTERED BY RT, 2.5 mg Given 08/13/2019 7:59 PM COMPENSATION VICE PRESIDENT 2.5 mg Given 08/13/2019 4:39 PM COMPENSATION VICE PRESIDENT 08/14/2019 8:01 AM COMPENSATION VICE PRESIDENT 200 mg amiodarone (CORDARONE) tablet 200 mg Given 200 mg, Oral, DAILY, First dose on Mon08/09/19 at 1130, Until Discontinued 200 mg Given 08/13/2019 10:45 AM COMPENSATION VICE PRESIDENT 200 mg Given 08/12/2019 8:41 AM COMPENSATION VICE PRESIDENT 08/11/2019 8:35 AM COMPENSATION VICE PRESIDENT 5 mg amLODIPine (NORVASC) tablet 5 mg Given 5 mg, Oral, DAILY, First dose on Mon08/09/19 at 0900, Until Discontinued, NURSING: Please educate patient and document: Do not give with grapefruit juice., 5 mg Given 08/10/2019 8:13 AM COMPENSATION VICE PRESIDENT 5 mg Given 08/09/2019 8:05 AM COMPENSATION VICE PRESIDENT 08/08/2019 8:50 AM COMPENSATION VICE PRESIDENT 5 mg amLODIPine(#) (NORVASC) suspension 5 mg Given 5 mg, Oral, DAILY, First dose on Mon08/08/19 at 0900, Until Discontinued 08/14/2019 8:01 AM COMPENSATION VICE PRESIDENT 5 mg apixaban (ELIQUIS) tablet 5 mg Given 5 mg, Oral, TWICE DAILY, First dose on Mon08/09/19 at 1115, Until Discontinued , May crush 5 mg or 2.5 mg tablets and suspend in 60 mL of D5W followed by immediate delivery through a nasogastri c tube. No information regarding administration of suspension by mouth i s available. NOTE: This is a HIGH ALERT Medication., 5 mg Given 08/13/2019 8:29 PM COMPENSATION VICE PRESIDENT 5 mg Given 08/13/2019 10:45 AM COMPENSATION VICE PRESIDENT 08/14/2019 8:01 AM COMPENSATION VICE PRESIDENT 81 mg aspirin EC tablet 81 mg Given 81 mg, Oral, DAILY, First dose on Mon08/08/19 at 0900, Until Discontinued 81 mg Given 08/13/2019 10:45 AM COMPENSATION VICE PRESIDENT 81 mg Given 08/12/2019 8:40 AM COMPENSATION VICE PRESIDENT 08/14/2019 8:01 AM COMPENSATION VICE PRESIDENT 10 mg atorvastatin (LIPITOR) tablet 10 mg Given 10 mg, Oral, DAILY, First dose on Mon08/08/19 at 0900, Until Discontinued 10 mg Given 08/13/2019 10:45 AM COMPENSATION VICE PRESIDENT 10 mg Given 08/12/2019 8:40 AM COMPENSATION VICE PRESIDENT 08/08/2019 11:19 AM COMPENSATION VICE PRESIDENT 1 mg bumetanide (BUMEX) injection 1 mg Given 1 mg, Intravenous, TWICE DAILY, First dose on Mon08/08/19 at 1030, Until Discontinued, PROTECT FROM LIGHT, 08/08/2019 2:19 PM COMPENSATION VICE PRESIDENT 1 mg bumetanide (BUMEX) injection 1 mg Given 1 mg, Intravenous, ONCE, 1 dose, [place] 08/08/19 at 1330, PROTECT FROM LIGHT, 08/09/2019 8:05 AM COMPENSATION VICE PRESIDENT 2 mg bumetanide (BUMEX) injection 2 mg Given 2 mg, Intravenous, TWICE DAILY, First dose (after last modification) on Mon08/08/19 at 1700, Until Discontinued, PROTECT FROM LIGHT, 2 mg Given 08/08/2019 4:30 PM COMPENSATION VICE PRESIDENT 08/12/2019 8:41 AM COMPENSATION VICE PRESIDENT 2 mg bumetanide (BUMEX) injection 2 mg Given 2 mg, Intravenous, THREE TIMES DAILY, First dose (after last modification) on Mon08/09/19 at 1400, Until Discontinued , PROTECT FROM LIGHT, 2 mg Given 08/11/2019 8:57 PM COMPENSATION VICE PRESIDENT 2 mg Given 08/11/2019 2:22 PM COMPENSATION VICE PRESIDENT 08/14/2019 8:01 AM COMPENSATION VICE PRESIDENT 2 mg bumetanide (BUMEX) tablet 2 mg Given 2 mg, Oral, TWICE DAILY, First dose on Mon08/12/19 at 1700, Until Discontinued 2 mg Given 08/13/2019 5:27 PM COMPENSATION VICE PRESIDENT 2 mg Given 08/13/2019 10:44 AM COMPENSATION VICE PRESIDENT 08/14/2019 8:01 AM COMPENSATION VICE PRESIDENT 10 mg busPIRone (BUSPAR) tablet 10 mg Given 10 mg, Oral, TWICE DAILY, First dose on Mon08/13/19 at 1145, Until Discontinue d 10 mg Given 08/13/2019 8:29 PM COMPENSATION VICE PRESIDENT 10 mg Given 08/13/2019 12:13 PM COMPENSATION VICE PRESIDENT 08/11/2019 11:39 AM COMPENSATION VICE PRESIDENT 250 mg chlorothiazide injection 250 mg Given 250 mg, Intravenous, ONCE, 1 dose, 08/11/19 at 1145 08/11/2019 8:55 PM COMPENSATION VICE PRESIDENT 250 mg chlorothiazide injection 250 mg Given 250 mg, Intravenous, ONCE, 1 dose, 08/11/19 at 1930 08/08/2019 2:12 PM COMPENSATION VICE PRESIDENT 1 drop dextran 70/hypromellose (NATURAL BALANCE Given TEARS) 0.1/0.3 % ophthalmic solution 1 drop 1 drop, Both Eyes, FOUR TIMES DAILY, First dose on Mon08/08/19 at 1300, Unti l Discontinued 08/14/2019 8:01 AM COMPENSATION VICE PRESIDENT 20 mg escitalopram oxalate (LEXAPRO) tablet 20 Given mg 20 mg, Oral, DAILY, First dose on Mon08/09/19 at 1115, Until Discontinued 20 mg Given 08/13/2019 10:44 AM COMPENSATION VICE PRESIDENT 20 mg Given 08/12/2019 8:41 AM COMPENSATION VICE PRESIDENT 08/07/2019 9:41 PM COMPENSATION VICE PRESIDENT 50 mcg fentaNYL citrate PF (SUBLIMAZE) Given injection 25-50 mcg 25-50 mcg, Intravenous, ONCE, 1 dose, 08/07/19 at 2200 08/12/2019 12:30 PM COMPENSATION VICE PRESIDENT 50 mcg fentaNYL citrate PF (SUBLIMAZE) Given injection 25-50 mcg 25-50 mcg, Intravenous, EVERY 1 HOUR PRN, Starting Mon08/07/19 at 2310, Unti l Mon08/14/19 at 1342, Pain Injectable 50 mcg Given 08/12/2019 10:40 AM COMPENSATION VICE PRESIDENT 50 mcg Given 08/12/2019 8:53 AM COMPENSATION VICE PRESIDENT 08/14/2019 8:53 AM COMPENSATION VICE PRESIDENT 1 puff fluticasone-salmeterol (ADVAIR DISKUS) Given 250-50 mcg/dose inhalation disk 1 puff 1 puff, Inhalation, RT TWICE DAILY, First dose on Mon08/09/19 at 1000, Unti l Discontinued, When administered by RT, will be per RT policy., 1 puff Given 08/13/2019 7:59 PM COMPENSATION VICE PRESIDENT 1 puff Given 08/13/2019 8:30 AM COMPENSATION VICE PRESIDENT 08/08/2019 12:47 AM COMPENSATION VICE PRESIDENT 20 mg furosemide (LASIX) injection 20 mg Given 20 mg, 2 mL, Intravenous, ONCE, 1 dose, [place] 08/08/19 at 0015, PROTECT FROM LIGHT , 08/09/2019 6:38 AM COMPENSATION VICE PRESIDENT 7,500 Units Abdomen: LLQ heparin (porcine) injection 7,500 Units Given 0.75 mL 7,500 Units, Subcutaneous, EVERY 8 HOURS, First dose (after last modification) on [place] 08/08/19 at 1400, Until Discontinued, NOTE: This is a HIG H ALERT Medication., 7,500 Units Abdomen:LUQ Given 08/08/2019 9:50 PM COMPENSATION VICE PRESIDENT 7,500 Units Abdominal Tissue Given 08/08/2019 3:05 PM COMPENSATION VICE PRESIDENT 08/08/2019 5:21 AM COMPENSATION VICE PRESIDENT 5,000 Units Abdomina l Tissue heparin (porcine) PF syringe 5,000 Units Given 5,000 Units, Subcutaneous, EVERY 8 HOURS, First dose on 08/07/19 at 1700, Until Discontinued, NOTE: This is a HIGH ALERT Medication., 5,000 Units Abdomen:RLQ Given 08/07/2019 7:00 PM COMPENSATION VICE PRESIDENT 08/07/2019 8:18 PM COMPENSATION VICE PRESIDENT 10 mg hydrALAZINE (APRESOLINE) injection 10 mg Given 10 mg, Intravenous, EVERY 2 HOURS PRN, Starting Mon08/07/19 at 1918, Until Mon08/13/19 at 0632, Blood Pressure..., Systolic Blood Pressure..., sbp>170, After dose, check BP every 5 minutes x3 , then every 15 minutes x2 until desired BP reached. Notify provider if blood pressure is not within desired range after above monitoring time. , 08/08/2019 12:14 PM COMPENSATION VICE PRESIDENT 0.5 mg ipratropium bromide (ATROVENT) 0.02 % Given nebulizer solution 0.5 mg 0.5 mg, Inhalation, RT EVERY 6 HOURS AND PRN, First dose on Mon08/07/19 at 2330, Until Discontinued, ADMINISTERED BY RT, 0.5 mg Given 08/08/2019 6:12 AM COMPENSATION VICE PRESIDENT 0.5 mg Given 08/08/2019 12:11 AM COMPENSATION VICE PRESIDENT 08/11/2019 12:41 PM COMPENSATION VICE PRESIDENT 0.5 mg ipratropium bromide (ATROVENT) 0.02 % Given nebulizer solution 0.5 mg 0.5 mg, Inhalation, RT EVERY 4 HOURS AND PRN, First dose (after last modification) on [facility] 08/08/19 at 1600, Until Discontinued, ADMINISTERED BY RT, 0.5 mg Given 08/11/2019 9:18 AM COMPENSATION VICE PRESIDENT 0.5 mg Given 08/11/2019 4:12 AM COMPENSATION VICE PRESIDENT 08/14/2019 8:48 AM COMPENSATION VICE PRESIDENT 0.5 mg ipratropium bromide (ATROVENT) 0.02 % Given nebulizer solution 0.5 mg 0.5 mg, Inhalation, RT EVERY 4 HOURS WHILE AWAKE AND PRN, First dose (after last modification) on [place] 08/11/19 at 1600, Until Discontinued, ADMINISTERED BY RT, 0.5 mg Given 08/13/2019 7:59 PM COMPENSATION VICE PRESIDENT 0.5 mg Given 08/13/2019 4:39 PM COMPENSATION VICE PRESIDENT 08/08/2019 8:59 AM COMPENSATION VICE PRESIDENT 750 mg levoFLOXacin (LEVAQUIN) 750 mg/D5W 150 Given - New mL IVPB Bag 750 mg, Intravenous, 150 mL, Administer over 90 Minutes, EVERY 24 HOURS, First dose on [place] 08/08/19 at 0930, Until Discontinued 08/09/2019 6:09 AM COMPENSATION VICE PRESIDENT 1 g 100 mL/hr magnesium sulfate 1 g/D5W 100 mL IVPB Given - New 1 g, Intravenous, 100 mL, Administer Bag over 1 Hours, EVERY 1 HOUR FOR 2 DOSES , 2 doses, First dose on Mon08/09/19 at 0500, Last dose on Mon08/09/19 at 0600, Each 1gm delivers 8.1 mEq Magnesium., 1 g 100 mL/hr Given - New Bag 08/09/2019 5:05 AM COMPENSATION VICE PRESIDENT 08/13/2019 8:29 PM COMPENSATION VICE PRESIDENT 1 g 200 mL/hr meropenem (MERREM) 1 g in sodium Given - New chloride 0.9% (NS) 100 mL IVPB (MB+) Bag 1 g, Intravenous, 100 mL, Administer over 30 Minutes, EVERY 8 HOURS, 19 doses, First dose on Mon08/07/19 at 2045, Last dose on Mon08/13/19 at 2045 1 g 200 mL/hr Given - New Bag 08/13/2019 12:13 PM COMPENSATION VICE PRESIDENT 1 g 200 mL/hr Given - New Bag 08/13/2019 5:06 AM COMPENSATION VICE PRESIDENT 08/08/2019 11:20 AM COMPENSATION VICE PRESIDENT 2.5 mg metoprolol (LOPRESSOR) injection 2.5 mg Given 2.5 mg, Intravenous, ONCE, 1 dose, [facility] 08/08/19 at 1200, Hold for heart rate < 60 bpm PROTECT FROM LIGHT, 08/08/2019 11:27 AM COMPENSATION VICE PRESIDENT 2.5 mg metoprolol (LOPRESSOR) injection 2.5 mg Given 2.5 mg, Intravenous, ONCE, 1 dose, [facility] 08/08/19 at 1215, Hold for HR less than 50 PROTECT FROM LIGHT, 08/08/2019 4:30 PM COMPENSATION VICE PRESIDENT 5 mg metoprolol (LOPRESSOR) injection 5 mg Given 5 mg, Intravenous, EVERY 4 HOURS, Firs t dose on [facility] 08/08/19 at 1230, Until Discontinued, Hold for heart rate < 60 bpm PROTECT FROM LIGHT, 08/12/2019 9:16 PM COMPENSATION VICE PRESIDENT 25 mg metoprolol tartrate (LOPRESSOR) tablet Given 25 mg 25 mg, Oral, EVERY 8 HOURS, First dose on [facility] 08/08/19 at 1445, Until Discontinued, Hold for heart rate < 60 bpm or systolic BP < 100, 25 mg Given 08/12/2019 1:18 PM COMPENSATION VICE PRESIDENT 25 mg Given 08/12/2019 5:28 AM COMPENSATION VICE PRESIDENT 08/14/2019 8:01 AM COMPENSATION VICE PRESIDENT 12.5 mg metoprolol XL (TOPROL XL) tablet 12.5 mg Given 12.5 mg, Oral, DAILY, First dose on Mon08/14/19 at 0900, Until Discontinued, Hold for heart rate < 60 bpm or systoli c BP < 100 tablets may be cut in half, DO NOT CRUSH or CHEW, 08/14/2019 7:57 AM COMPENSATION VICE PRESIDENT 5 mg oxyCODONE (ROXICODONE) tablet 5-10 mg Given 5-10 mg, Oral, EVERY 4 HOURS PRN, Starting Mon08/08/19 at 1426, Until Mon08/14/19 at 1342, Pain PO 5 mg Given 08/13/2019 8:29 PM COMPENSATION VICE PRESIDENT 5 mg Given 08/13/2019 1:27 PM COMPENSATION VICE PRESIDENT 08/08/2019 12:35 AM COMPENSATION VICE PRESIDENT 40 mg pantoprazole (PROTONIX) injection 40 mg Given 40 mg, Intravenous, DAILY, First dose o n Mon08/07/19 at 2315, Until Discontinued 08/09/2019 10:03 AM COMPENSATION VICE PRESIDENT 40 mg pantoprazole (PROTONIX) injection 40 mg Given 40 mg, Intravenous, TWICE DAILY, First dose (after last modification) on Mon08/08/19 at 1100, Until Discontinued 40 mg Given 08/08/2019 8:17 PM COMPENSATION VICE PRESIDENT 40 mg Given 08/08/2019 11:09 AM COMPENSATION VICE PRESIDENT 08/13/2019 8:29 PM COMPENSATION VICE PRESIDENT [address] (PROTONIX) tablet 40 mg Given 40 mg, Oral, DAILY, First dose on Mon08/09/19 at 2100, Until Discontinued, Do not crush or chew tablet., 40 mg Given 08/12/2019 8:58 PM COMPENSATION VICE PRESIDENT 40 mg Given 08/11/2019 8:55 PM COMPENSATION VICE PRESIDENT 08/09/2019 8:05 AM COMPENSATION VICE PRESIDENT 17 g polyethylene glycol 3350 (MIRALAX) Given packet 17 g 17 g (1 packet), Oral, TWICE DAILY, First dose on Mon08/07/19 at 2315, Unti l Discontinued, 8.5 GRAMS = 0.5 PACKET 17 GRAMS = 1 PACKET 34 GRAMS = 2 PACKETS, 17 g Given 08/08/2019 8:17 PM COMPENSATION VICE PRESIDENT 17 g Given 08/08/2019 8:53 AM COMPENSATION VICE PRESIDENT 08/09/2019 5:11 AM COMPENSATION VICE PRESIDENT 10 mEq 100 mL/hr potassium chloride in water IVPB 10 mEq Given - New 10 mEq, Intravenous, 50 mL, Administer Bag over 60 Minutes, NEEDED ([employer] FRO M RX), Starting 08/07/19 at 1646, Unti l Mon08/09/19 at 1422, Other..., For Potassium Replacement, See admin instructions, Do not use if Cr>2, ESRD, or Tikosyn/Sotalol initiation *For K level 3.6-3.9 -> give 40 mEq of PO KCL *For K level 3.1-3.5 -> give 40 mEq of PO KCL for q4h for 2 doses *For K level 2.5-3 -> Notify physician (routine), then give 60 mEq of PO KCL AND 40 mEq of IV KCL (as 10mEq IV q1h x 4 doses). Repeat K level 1 hour after last IV dose. If Repeat K level is <3.3 -> Notify physician (DELMAR) and replace as above. *For K level <2.5 -> Notify physician (DELMAR) for replacement orders. NOTE: This is a HIGH ALERT Medication., 10 mEq 50 mL/hr Given - New Bag 08/09/2019 4:37 AM COMPENSATION VICE PRESIDENT 08/09/2019 6:09 AM COMPENSATION VICE PRESIDENT 10 mEq 50 mL/hr potassium chloride in water IVPB 10 mEq Given - New 10 mEq, Intravenous, 50 mL, Administer Bag over 60 Minutes, EVERY 1 HOUR FOR 2 DOSES, 2 doses, First dose on Mon08/09/19 at 0600, Last dose on Mon08/09/19 at 0700, NOTE: This is a HIGH ALERT Medication., 10 mEq 50 mL/hr Given - New Bag 08/09/2019 5:44 AM COMPENSATION VICE PRESIDENT 08/09/2019 10:03 AM COMPENSATION VICE PRESIDENT 40 mEq potassium chloride SR (K-DUR) tablet Given 40-60 mEq 40-60 mEq, Oral, NEEDED, Starting We 08/07/19 at 1646, Until Mon08/09/19 at 1422, Other..., For potassium replacement, See admin instructions, Do not use if Cr>2, ESRD, or Tikosyn/Sotalol initiation *For K level 3.6-3.9 -> give 40 mEq of PO KCL *For K level 3.1-3.5 -> give 40 mEq of PO KCL for q4h for 2 doses *For K level 2.5-3 -> Notify physician (routine), then give 60 mEq of PO KCL AND 40 mEq of IV KCL (as 10mEq IV Q1H x 4 doses) . Repeat K level 1 hour after last IV dose. If Repeat K level is <3.3 -> Notify physician (DELMAR) and replace as above. *For K level <2.5 -> Notify physician (DELMAR) for replacement orders., 08/14/2019 8:00 AM COMPENSATION VICE PRESIDENT 150 mg pregabalin (LYRICA) capsule 150 mg Given 150 mg, Oral, TWICE DAILY, First dose o n Mon08/08/19 at 0900, Until Discontinued 150 mg Given 08/13/2019 8:29 PM COMPENSATION VICE PRESIDENT 150 mg Given 08/13/2019 10:45 AM COMPENSATION VICE PRESIDENT 08/08/2019 8:43 AM COMPENSATION VICE PRESIDENT 60 mcg/kg/min 55.4 mL/hr propofol (DIPRIVAN) 10 mg/mL IV infusion Given - New 60 mcg/kg/min Bag 154 kg (55.44 mL/hr, rounded to 55.4 mL/hr) 100 mL, at 55.4 mL/hr, Intravenous, TITRATE DIRECTED , Starting Mon08/07/19 at 1700, Until Mon08/08/19 at 1433, -Initiate at 60 mcg/kg/min (No loading dose) -Titrate to keep: RASS of 0 to -2- -Call physician if maintenance exceeds 150 mcg/kg/min -Taper agent continuously to lowest effective dose t o achieve desired level of sedation keeping patient calm and able to participate in care. NOTE: This is a HIGH ALERT Medication., 60 mcg/kg/min 55.4 mL/hr Dose/Rate Verify 08/08/2019 7:00 AM COMPENSATION VICE PRESIDENT 60 mcg/kg/min 55.4 mL/hr Dose/Rate Verify 08/08/2019 6:00 AM COMPENSATION VICE PRESIDENT 08/14/2019 8:00 AM COMPENSATION VICE PRESIDENT 500 mcg roflumilast (DALIRESP) tablet 500 mcg Given 500 mcg, Oral, DAILY, First dose on Mon08/09/19 at 1000, Until Discontinued 500 mcg Given 08/13/2019 10:44 AM COMPENSATION VICE PRESIDENT 500 mcg Given 08/12/2019 8:40 AM COMPENSATION VICE PRESIDENT 08/08/2019 8:50 AM COMPENSATION VICE PRESIDENT 20 mL senna (SENOKOT) 8.8 mg/5 mL 17.6 mg, Given docusate (COLACE) 50 mg/5 mL 100 mg 20 mL per each dose 20 mL, Per NG tube, TWICE DAILY, First dose on [place] 08/08/19 at 0900, Until Discontinued, Note: One senna/docusate tablet is equal to 8.8mg (5mL) senna an d 50mg (5mL) docusate. Hold for loose stools., 08/09/2019 9:54 PM COMPENSATION VICE PRESIDENT 2 tablets senna/docusate (SENOKOT-S) tablet 2 Given tablet 2 tablet, Oral, TWICE DAILY, First dose on [place] 08/08/19 at 2100, Until Discontinued, Hold for loose stools, 2 tablets Given 08/09/2019 8:05 AM COMPENSATION VICE PRESIDENT 2 tablets Given 08/08/2019 8:17 PM COMPENSATION VICE PRESIDENT 08/08/2019 11:12 AM COMPENSATION VICE PRESIDENT 20 mg sildenafil (antihypertensive) (REVATIO) Given suspension 20 mg 20 mg, Per NG tube, THREE TIMES DAILY, First dose on [place] 08/08/19 at 1030, Unti l Discontinued 08/14/2019 8:01 AM COMPENSATION VICE PRESIDENT 20 mg sildenafil (REVATIO) tablet 20 mg Given 20 mg, Oral, THREE TIMES DAILY, First dose on [place] 08/08/19 at 1530, Until Discontinued 20 mg Given 08/13/2019 8:29 PM COMPENSATION VICE PRESIDENT 20 mg Given 08/13/2019 3:09 PM COMPENSATION VICE PRESIDENT documented in this encounter
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
--- OUTSIDE RECORDS SUMMARY | 2019-08-28 23:18 | XMS REPORT | Encounter Summary ---
Author Author [facility] Organization [facility] Address Unknown Phone Unavailable Care Team Providers Care Sewing Machine Repairer Name Role Phone Ricky Cleveland DO PCP Reason for Visit * Auth/Cert Referred By Contact Referred To Contact Status Reason Specialty Diagnoses / Procedures Diagnoses Empyema, right (HCC) Empyema, right (HCC) [J86.9] P rocedures [place] PERQ DRAINAGE PLEURA INSERT CATH W/O IMAGING Chest tube placement at ICU bedside Encounter Details Care Team Description Date Type Department August Fisher MD [address] [facility] [id number] [place] [address] Chest tube placement at ICU bedside 08/07/2019 Surgery [facility] OR [address] [place] [address] Social History Date Tobacco Use Types [...] Comments Vital Sign 146/56 08/14/2019 8:00 AM TUBE FILLER Blood Pressure 71 08/14/2019 8:49 AM TUBE FILLER Pulse 36.6 C (97.9 F) 08/14/2019 8:00 AM TUBE FILLER Temperature - - Respiratory Rate 97% 08/14/2019 8:49 AM TUBE FILLER Oxygen Saturation - - Inhaled Oxygen Concentration 143.1 kg (315 lb 7.7 oz) 08/14/2019 5:38 AM TUBE FILLER Weight 177.8 cm (5' 10") 08/09/2019 2:00 PM TUBE FILLER Height 45.27 08/09/2019 2:00 PM TUBE FILLER Body Mass Index documented in this encounter [...] * Arriola, December - 08/14/2019 9:52 AM TUBE FILLER Physician Discharge Summary Name: Kemar Lopez Date [...] heart failure with preserved ejection fraction (HFpEF) ([facility]) Chronic renal failure COPD (chronic obstructive pulmonary disease) ([facility]) Depression History of GI bleed HTN (hypertension) [...] COPD presented to s a transfer from [place], [place] w/acute respiratory failure &concern for empyema. [...] weaned to baseline O2 requirement.Completed course of wisgvqisf92/10. Stable to tx to inpatient rehab. Does have pending c.diff PCR. Condition at Discharge: Stable Discharge Diagnoses: Hospital Problems Active Problems Chronic congestive heart failure (HCC) COPD mixed type (HCC) Type 2 diabetes mellitus (HCC) Pulmonary artery hypertension (HCC) Morbid obesity with BMI of 45.0-49.9, adult (HCC) History of CHF (congestive heart failure) Chronic heart failure with preserved ejection fraction (HFpEF) (HCC) Resolved Problems * (Principal) RESOLVED: Large pleural effusion RESOLVED: Chronic obstructive pulmonary disease with acute exacerbation (HCC) RESOLVED: Acute on chronic respiratory failure with hypercapnia (HCC) Surgical Procedures: Chest tube placement 08/07 Significant Diagnostic Studies and Procedures: As above [...] or concerns regarding your hospital stay, call [phone]. Discharging attending physician: IZZY YANG [[id number]] Cardiac Diet Limiting unhealthy fats and cholesterol [...] as needed for Wheezing or Shortness of Kusum th. Shake well before use. PRESCRIPTION TYPE: [...] mouth da amy. PRESCRIPTION TYPE: Historical Med hhjpulny-kve-QX-lycopen-lutein (CENTRUM SILVER ULTRA MEN'S) 300-600-300 mcg tab [...] BMP in next week at the rehab [facility] while on bumex Signed: Fabiola Fragoso APRN Pulmonary/Critical Care Medicine Pager [phone] or Phil M3 (2nd call/night) Pager [phone] 08/14/2019 cc: Primary Care Physician: Ricky Cleveland Referring physicians: Ramana Forrest DO FILLER Associated attestation - Izzy Yang MD - 08/15/2019 12:31 PM TUBE FILLER Agree with discharge summary as written. documented [...] mg extended release by mouth tablet daily. rzcccmsx-xok-IK-lycopen-l Take 1 tablet 0 utein (CENTRUM SILVER [...] of this encounter Progress Notes * Fabiola Fragoso APRN - 08/14/2019 6:05 AM TUBE FILLER Pulmonary / Critical Care Progress Note Kemar [...] COPD presented to s a transfer from [place], [place] w/acute respiratory failure &concern for empyema. [...] now alert and oriented Depression - continue ATM MECHANIC escitalopram 20 mg daily, buspar 10 mg [...] functional classIII - admission BNPnot performed - ATM MECHANIC meds include: amlodipine 5 mg daily, metoprolol XL 12.5 mg daily, lasix 40 mg BID, atorvastatin 10 mg daily, aspirin 81 mg daily, eliquis 5 mg BID, lisino pril 10 mg daily - goal dry weight:320 lbs per patient report; 339 lbs on 08/07 -last echo at [facility] in [place] 07/08/19: LVEF 60%, LVH, aortic sclerosis without stenosis, moderate to severe AR; PA pressure 53mmHg - monitor shows SB/SR, rate 50s-70s - SBP 110s PLAN - switched lasix to bumex as above, continue metoprolol XL 12.5 mg daily - continue to hold amlodipine and lisinopril -2000 mg sodium dietary restriction, fluid restriction 1.5 L/day ParoxysmalAFib - ATM MECHANIC metoprolol, amiodarone 200 mg daily, eliquis - [id number] score 2 - HR 50s-70s PLAN - continue metoprolol, amio & eliquis HTN CAD - ATM MECHANIC meds as above -last coronary catheterization in 2010, no stents placed previously PLAN - continue ATM MECHANIC ASA, lipitor, and metoprolol XL GI - cardiac diet Recurrent GI Bleed -reported recurrent GI bleeds while on apixaban - EGD & colonoscopy 06/28/19: gastritis&hiatal hernia &colonic polyps - repeat [facility]: nonbleeding sigmoid&ascending colon ulcer PLAN - continue [...] discharge to inpatient rehab. Fabiola Fragoso APRN Pulyahaira/Critical Care Pager [phone] or Phil M3 (2nd call/night) Pager [phone] 08/14/2019 5158 __ Subjective: Kemar Lopez is a 63 [...] Signs: Last Filed Vital Signs: 24 Hour [facility] BP: 119/53 (08/14 400) Temp: 37.1 C (98.8 F) (08/14 040) Pulse: 64 (08/14 0500) Respirations: 18 PER MINUTE (08/14 0500) SpO2: 98 % (08/14 0500) SpO2 Pulse: 63 (08/14 0500) BP: (119-157)/(48-81) Temp: [36.9 C (98.4 F)-37.6 [...] Intake/Output Summary (Last 24 hours) at 08/14/2019 0605 Last data filed at 08/13/2019 2200 Gross [...] Laboratory: LABS: Recent Labs 08/11/19 2357 08/12/19 04008/13/19 0511 08/14/19 0330 NA 145 145 144 [...] Other Diagnostic Procedures Review: Reviewed pertinent studies. FILLER Associated attestation - Izzy Yang MD - 08/14/2019 7:34 PM TUBE FILLER ATTESTATION: I personally performed the kumar portions [...] Ramana Urena RN - 08/14/2019 5:39 AM TUBE FILLER Heart Failure Nursing Progress Note Admission Date: [...] Intake/Output Summary (Last 24 hours) at 08/14/2019 0539 Last data filed at 08/13/2019 2200 Gross per 24 hour Intake 1998 ml Output 3680 ml Net -1682 ml Is patient incontinent No FILLER * Win Burdick, PT - 08/13/2019 2:30 PM TUBE FILLER PHYSICAL THERAPY NOTE Name: Kemar Lopez : 1955 Age: 63 y.o. Admission Date: 08/07/2019 LOS: 6 days Patient was unavailable for physical therapy. Tech scheduled for 2:30 time. Pat ient on bedpan for extended period of time. Physical therapy will continue to f ollow and provide intervention as indicated. Therapist: Win Burdick, PT Date: 08/13/2019 FILLER * Susanna Eckert APRN - 08/13/2019 11:26 AM TUBE FILLER Pulmonary / Critical Care Progress Note Kemar [...] paroxysmal a-fib & mixed COPD presented to s a transfer from [place], [place] w/acute respiratory failure & concern for [...] On exam a&o today Depression - Continue ATM MECHANIC escitalopram 20mg daily, buspar 10mg BID, lyrica [...] functional classIII - Admission BNP:not performed - ATM MECHANIC: amlodipine 5mg daily, Metoprolol XL 12.5mg daily, lasix 40mg BID, atorvas tatin 10mg daily, aspirin 81mg daily, eliquis 5mg BID, lisinopril 10mg daily - Goal Dry Weight:320 lbs per patient report. 339lbs on 08/07. - Last Echo at [facility] in [place] 07/08/19 w/ EF 60%, LVH, aortic sclerosis without stenosis, moderate to severe AR. PA pressure 53mmHg. Plan - Switched lasix to bumex 2mg BID, continue metoprolol XL 12.5mg daily - Continue to hold amlodipine, lisinopril - 2000mg sodium dietary restriction, Fluid Restriction 1.5L/day Paroxysmal Afib - ATM MECHANIC metoprolol 25mg q8h, amiodarone 200mg daily, Elisuis - [id number] score 2 - HR 50s-70s Plan - Continue metoprolol, amio & eliquis HTN CAD - ATM MECHANIC amlodipine 5mg daily, aspirin 81mg daily, atorvastatin 10mg daily - Last coronary catheterization in 2010, no stents placed previously Plan - Continue ATM MECHANIC ASA 81mg, Lipitor 10mg daily, metoprolol XL GI - Last BM 08/11 - Cardiac diet Recurrent GI bleed - Reported recurrent GI bleeds while on apixaban - EGD & colonoscopy 06/28/19 showed gastritis & hiatal hernia & colonic polyps. Repeat 07/11/19 at [facility] showed a nonbleeding sigmoid & ascending colon ulcer. Plan - Will continue apixaban cautiously RENAL - Cr 1.14 - UOP: 2.3L - I/O: -1.1L/24h; -13.4L for admit - Monitor, supportive care ENDO - BG WNL ID Pseudomonas & Enterobacter Right Middle Lobe PNA - BAL /2 at OSH with mucus plugs, + Pseudomonas [...] Pt seen & discussed w/ Dr. Jacobo Ekcert NP Pulmonary Critical Care Contact via Voalte or Leapfactoratr Pager [phone] pager [phone] Subjective: Family & patient report he is doing much better today. Family thinks he is much less groggy. Asking about discharge plans & I informed them our social work job titles, Sonja will be discussing that with them [...] (99.7 F) (08/13 0000) Pulse: 53 (08/13 400) Respirations: 22 PER MINUTE (08/13 0400) SpO2: 98 % (08/13 400) SpO2 Pulse: 53 (08/13 400) BP: (100-127)/(31-52) Temp: [37.2 C (98.9 F)-37.6 [...] Other Diagnostic Procedures Review: Reviewed pertinent studies. FILLER Associated attestation - Izzy Yang MD - 08/13/2019 6:21 PM TUBE FILLER ATTESTATION: I personally performed the ukmar portions of the E/M visit, discusse d [...] Flaquita Dunn, OT - 08/13/2019 10:02 AM TUBE FILLER OCCUPATIONAL THERAPY PROGRESS NOTE Name: Kemar Lopez : 1955 Age: 63 y.o. Admission Date: 08/07/2019 LOS: 6 days Mobility Progressive Mobility Level: Sit on edge of bed Level of Assistance: Assist X2 Time Tolerated: 0-10 minutes Activity Limited By: Weakness Subjective Pertinent Dx per Physician: PMH: COPD, HFpEF, transferred from [place] [address] [place], [place] intubated and sedated with dx of [...] Work on standing, ADLs, and transfer to BSC vs Chair as able. ADL Goals Patient [...] rehab setting. Therapist: MARTELL Strauss/Key Date: 08/13/2019 FILLER * Flaquita Dunn OT - 08/12/2019 10:50 AM TUBE FILLER OCCUPATIONAL THERAPY NO TREATMENT NOTE Name: Kemar [...] follow up as able for therapy. Therapist: MARTELL Strauss/Key Date: 08/12/2019 FILLER * Win Burdick, PT - 08/12/2019 10:35 AM TUBE FILLER PHYSICAL THERAPY PROGRESS NOTE Name: Kemar Lopez : 1955 Age: 63 y.o. Admission Date: 08/07/2019 LOS: 5 days Mobility Patient Turned: Weight Shifted (Chair/Spinal Precaution) Progressive Mobility Level: Sit on edge of bed Level of Assistance: Assist X3 or more Time Tolerated: 11-30 minutes Activity Limited By: Weakness Subjective Significant hospital events: PMH: COPD, HFpEF, chronic back pain transferred f rom [place] [address] [place], [place] intubated and sedated with dx o f acute on chronic respiratory failure with large right pleural effusion, pseudo monal pneumonia and possible empyema, found to have type II MA at OSH Mental / Cognitive Status: Alert;Oriented;Cooperative [...] mobility Therapist: Win Burdick PT Date: 08/12/2019 FILLER * Eliezer Bonner MD - 08/12/2019 7:07 AM TUBE FILLER General Progress Note Name: Kemar Lopez Today's [...] a-fib, and mixed COPD, who presented to [facility] on 08/07/2019 as a transfer from [place], [place], with a chief complaint of acute [...] - denies current SI/HI Plan: > continue ATM MECHANIC escitalopram 20mg daily > trazodone 100mg qhs [...] pre ssure 45-50mmHg. - Additional echo at [facility] in [place] 07/08/19 with EF 60%, LVH, aortic sclerosis [...] Yes. Strict I/O. Paroxysmal atrial fibrillation - [id number] score 2 - rate controlled on admission, HR 50s at OSH Plan: > metoprolol 25mg q8hrs > Amiodarone 200mg daily > will cautiously continue Eliquis in setting of recent recurrent GI bleeds HTN CAD - last coronary catheterization in 2010, no stents placed previously Plan: > continue ATM MECHANIC ASA 81mg, Lipitor 10mg > metoprolol tartrate [...] heart failure and COPD history > continue ATM MECHANIC sildenafil 20mg po tid > continue meropenem for pseudomonas + enterobacter pneumonia. Patient has been on antibiotics since 08/03. > treatment of HFpEF exacerbation with bumex 2mg TID > patient chronically on 4-5L O2 supplemental O2 > Trelegy BiPAP at night. Patient reports 23/04 settings. > Michael Meza ordered. Continue ATM MECHANIC roflumilast > Pulmonary toilet > chest tube removed 08/10. __ GI Recurrent GI bleed - patient with reported recurrent GI bleeds while on apixaban - EGD & colonoscopy 06/28/19 showed gastritis and hiatal hernia and colonic polyps. Repeat 07/11/19 at [facility] showed a nonbleeding sigmoid and ascending colon [...] in setting of apixaban use in June, ?Harishbe r Plan: > daily CBC to monitor > continuing apixaban, low threshold to discontinue with Hgb drop or bleeding symptoms ____ FEN > No IVF > Electrolytes to be replaced prn > cardiac Diet Lines, drains, airway: Peripheral IV x3, indwelling ac placed 08/07/19 Prophylaxis:SCDs, continue ATM MECHANIC eliquis Code:full Disposition:Floor status Staffed with Dr. Jacobo Bonner MD, IM-PGY3, #[id number] Subjective No events overnight. Daughter at bedside. [...] Testing (Last 24 hours) Glucose: 89 (08/12/19 040) POC Glucose (Download): 95 (08/12/19 963) Radiology and other Diagnostics Review: Pertinent radiology reviewed. Eliezer Bonner MD Pager [phone] FILLER Associated attestation - Izzy Yang MD - 08/12/2019 1:53 PM TUBE FILLER ATTESTATION I personally performed the kumar portions [...] Massiel Ricci RN - 08/11/2019 10:25 PM TUBE FILLER 2100 - Pt requesting to be placed on home Trilogy. Pt's SpO2 dropped to 79-81% a fter placing pt on Trilogy. RT called to bedside. 2129 - RN notified by RT that pt told RT, "I feel like I'm not getting enough ai r on this machine." RT placed pt on hospital's bipap. Pt more comfortable, SpO2 95-96%. Will continue to monitor. FILLER * Joann Hammond, RT - 08/11/2019 12:51 PM TUBE FILLER RT Adult Assessment Note NAME:Kemar Lopez :1955 [...] Lpm O2%: Breath Sounds: Respiratory Effort: Non-Labored FILLER * Татьяна Mccrary - 08/11/2019 9:35 AM TUBE FILLER ~[id number]: Report received from previous RN. POC reviewed. VS per pt trends. Pt A&Ox4 and follows commands. Call light within reach. Will continue to monitor. View doc flowsheets and MAR for more details. FILLER * Hamilton Ariza MD - 08/11/2019 7:31 AM TUBE FILLER General Progress Note Name: Kemar Lopez Today's [...] a-fib, and mixed COPD, who presented to [facility] on 08/07/2019 as a transfer from [place], [place], with a chief complaint of acute [...] signs of infection, [facility] showed Pseudomonas aeruginosa and Enterobacter cloacae. Chest tube dr ained about 950mL of pleural fluid upon [...] - denies current SI/HI Plan: > continue ATM MECHANIC escitalopram 20mg daily > trazodone 100mg qhs [...] pre ssure 45-50mmHg. - Additional echo at [facility] in [place] 07/08/19 with EF 60%, LVH, aortic sclerosis [...] Yes. Strict I/O. Paroxysmal atrial fibrillation - [id number] score 2 - rate controlled on admission, HR 50s at OSH Plan: > metoprolol 25mg q8hrs > Amiodarone 200mg daily > will cautiously continue Eliquis in setting of recent recurrent GI bleeds HTN CAD - last coronary catheterization in 2010, no stents placed previously Plan: > continue ATM MECHANIC ASA 81mg, Lipitor 10mg > metoprolol tartrate [...] at night. Patient reports 23/04 settings. > Duonedelmis, Advair ordered. Continue ATM MECHANIC roflumilast > Pulmonary toilet > chest tube removed 08/10. __ GI Recurrent GI bleed - patient with reported recurrent GI bleeds while on apixaban - EGD & colonoscopy 06/28/19 showed gastritis and hiatal hernia and colonic polyps. Repeat 07/11/19 at [facility] showed a nonbleeding sigmoid and ascending colon [...] Hamilton Ariza MD PGY-2, Internal Medicine Pager [phone], or on Voalte Subjective Kemar Lopez is [...] Testing (Last 24 hours) Glucose: 90 (08/11/19 031) POC Glucose (Download): 100 (08/11/19213) Radiology and other Diagnostics Review: Pertinent radiology reviewed. HAMILTON ARIZA MD Pager [phone] FILLER Associated attestation - Topher Marinelli MD - 08/11/2019 1:46 PM TUBE FILLER ATTESTATION I personally performed the kumar portions of the E/M visit, discussed case with re sident and concur with resident documentation of history, physical exam, assessm ent, and treatment plan unless otherwise noted. Staff name: Topher Marinelli MD Date: 08/11/2019 * Pascual Sharif RN - 08/11/2019 12:26 AM TUBE FILLER 2345 Patient wearing patient-owning trilogy bipap. SpO2 remains 88-91% despite R T and RN interventions. Patients states that this is normal for patient at home given significant COPD history. MD notified. Verbal order for SpO2 goal > 88%. FILLER * Hamilton Ariza MD - 08/10/2019 6:20 AM TUBE FILLER General Progress Note Name: Kemar Lopez Today's [...] a-fib, and mixed COPD, who presented to [facility] on 08/07/2019 as a transfer from [place], [place], with a chief complaint of acute [...] signs of infection, although [facility] showed Pseudomonas aeruginosa and Enterobacter cloacae. Chest tube dr ained about 950mL of pleural fluid upon [...] - denies current SI/HI Plan: > continue ATM MECHANIC escitalopram 20mg daily > trazodone 100mg qhs [...] pre ssure 45-50mmHg. - Additional echo at [facility] in [place] 07/08/19 with EF 60%, LVH, aortic sclerosis [...] Yes. Strict I/O. Paroxysmal atrial fibrillation - [id number] score 2 - rate controlled on admission, HR 50s at OSH Plan: > ATM MECHANIC metoprolol 25mg q8hrs > Amiodarone 200mg daily > will cautiously continue Eliquis in setting of recent recurrent GI bleeds HTN CAD - last coronary catheterization in 2010, no stents placed previously Plan: > continue ATM MECHANIC ASA 81mg, Lipitor 10mg > metoprolol tartrate [...] 23/04 settings. > Michael Meza ordered. Continue ATM MECHANIC roflumilast > Pulmonary toilet __ GI Recurrent GI bleed - patient with reported recurrent GI bleeds while on apixaban - EGD & colonoscopy 06/28/19 showed gastritis and hiatal hernia and colonic polyps. Repeat 07/11/19 at [facility] showed a nonbleeding sigmoid and ascending colon [...] Hamilton Ariza MD PGY-2, Internal Medicine Pager [phone], or on Voalte Subjective Kemar Lopez is [...] 0340) POC Glucose (Download): (!) 162 (08/10/19 2884) Radiology and other Diagnostics Review: Pertinent radiology reviewed. HAMILTON ARIZA MD Pager [phone] FILLER Associated attestation - Topher Marinelli MD - 08/10/2019 12:34 PM TUBE FILLER ATTESTATION I personally performed the kumar portions of the E/M visit, discussed case with re sident and concur with resident documentation of history, physical exam, assessm ent, and treatment plan unless otherwise noted. Staff name: Topher Marinelli MD Date: 08/10/2019 * Katie Allen RN - 08/09/2019 2:22 PM TUBE FILLER Admission skin assessment completed with: TEODORA Rdz (CTI) Pressure injury present on arrival?: No 1. Head/Face/Neck:No 2. Trunk/Back:No 3. Upper Extremities: No 4. Lower Extremities:"Blister on LLE" 5. Pelvic/Coccyx:No 6. Assessed for device associated injury? Yes, none 7. Malnutrition Screening Tool (Nursing Nutrition Assessment) Completed? pending See Doc Flowsheet for additional wound details. INTERVENTIONS: Q2 turn, pressure off loading boots in place FILLER * Katie Allen RN - 08/09/2019 2:01 PM TUBE FILLER 1400 Pt transported with two RNs and one RT. Pt monitored with transport. Pt physic al assessment completed and charted. Pt is alert and oriented. Pt complains of chronic back pain. notified. Family at bedside. Will continue to monitor pt closely. FILLER * Evangelina Caro, PT - 08/09/2019 11:36 AM TUBE FILLER PHYSICAL THERAPY ASSESSMENT Name: Kemar Lopez : 1955 Age: 63 y.o. Admission Date: 08/07/2019 LOS: 2 days Mobility Patient Turned: Supine(chair position in bed) Progressive Mobility Level: Stand Level of Assistance: Assist X2 Assistive Device: Hand Held Subjective Significant hospital events: PMH: COPD, HFpEF, chronic back pain transferred f rom [place] [address] [place], [place] intubated and sedated with dx o f acute on chronic respiratory failure with large right pleural effusion, pseudo monal pneumonia and possible empyema, found to have type II MA at OSH Mental / Cognitive Status: Alert;Oriented;Cooperative [...] Score: 16.59 Basic Mobility CMS 0-100%: 100 [facility] G Code Modifier for Basic Mobility: CN [...] setting Therapist Evangelina Caro, PT Date 08/09/2019 FILLER * Joann Phoenix - 08/09/2019 10:19 AM TUBE FILLER OCCUPATIONAL THERAPY ASSESSMENT NOTE Name: Kemar Lopez : 1955 Age: 63 y.o. Admission Date: 08/07/2019 LOS: 2 days Mobility Patient Turned: Supine(chair position in bed) Progressive Mobility Level: Stand Level of Assistance: Assist X2 Assistive Device: Hand Held Subjective Pertinent Dx per Physician: PMH: COPD, HFpEF, transferred from [place] [address] [place], [place] intubated and sedated with dx of [...] bench Therapist: Joann Daniels OTR/L Date: 08/09/2019 FILLER * Mitch Burdick MD - 08/09/2019 10:06 AM TUBE FILLER Cardiothoracic Surgery Critical Care Progress Note Kemar Lopez Today's Date: 08/09/2019 Admission Date: 08/07/2019 LOS: 2 days Procedure: Chest tube placement at ICU bedside: 75828 (CPT) Bronchoscopy With Bronchial Alveolar Lavage - Flexible: 26425 (CPT) POD#: 1 Principal Problem: Large pleural [...] (HFpEF) (HCC) On mechanically assisted ventilation (HCC) Assessment/Plan Neuro: Tylenol scheduled, opioids PRN. History of chronic pain. ATM MECHANIC cymbalta, ly kendall, trazodone Cardiac: ATM MECHANIC metoprolol XL, amlodipine, statin, lasix, amiodarone. Hx HFpEF, MA, CAD. PAF on Eliquis and metoprolol; currently [...] h/o TERE with BiPAP at rest/night. Restart ATM MECHANIC Sildenafil for pHTN and Breo for COPD [...] NGTD Renal: Cr 1.27 (baseline ~1.3). Lasix ATM MECHANIC. Start Bumex 2 mg IV BID. Monitor [...] is significant for HFpEF, MO, HTN, HLD, MA s/p CABG, Afib, NIDDM, COPD, TERE. He [...] sium chloride PRN OR magnesium sulfate PRN (Prospecting Observer from Rx), metoprolol Q4H PRN, ondansetron (ZOFRAN) [...] O2 Sat-Arterial 97.5 95 - 99 % Vsvnfjvtnns-CJY-Siv 32.4 (H) 21 - 28 MMOL/L POC [...] O2 Sat-Arterial 96.2 95 - 99 % Dlfrljhfusj-LEV-Nxa 31.2 (H) 21 - 28 MMOL/L POC GLUCOSE Collection Time: 08/08/19 7:27 AM # # Low-High Glucose, POC 85 70 - 100 MG/DL BLOOD GASES, ARTERIAL Collection Time: 08/08/19 11:00 AM # # Low-High pH-Arterial 7.40 7.35 - 7.45 pCO2-Arterial 55 (H) 35 - 45 MMHG pO2-Arterial 86 80 - 100 MMHG Base Excess-Arterial 7.8 MMOL/L O2 Sat-Arterial 97.4 95 - 99 % Jglltfikicu-YYX-Gzn 31.6 (H) 21 - 28 MMOL/L POC GLUCOSE Collection Time: 08/08/19 1:04 PM # # Low-High Glucose, POC 91 70 - 100 MG/DL POC BLOOD GAS ARTERIAL Collection Time: 08/08/19 1:06 PM # # Low-High PH-ART-POC 7.39 7.35 - 7.45 ALV4-JBO-KSZ 60 (H) 35 - 45 MMHG PO2-ART-POC 86 80 - 100 MMHG Base Ex-ART-POC 12.0 MMOL/L O2 Sat-ART-POC 96.0 95 - 99 % Mcfensnueiv-THA-XDK 36.9 (H) 21 - 28 MMOL/L POC [...] Sat-Arterial 99.5 (H) 95 - 99 % Ndwmnsqfejt-ELO-Xds 29.4 (H) 21 - 28 MMOL/L POC [...] O2 Sat-Arterial 97.9 95 - 99 % Dqeoyabcttr-STF-Hkn 33.2 (H) 21 - 28 MMOL/L POTASSIUM Collection Time: 08/09/19 8:05 AM # # Low-High Potassium 4.0 3.5 - 5.1 MMOL/L MAGNESIUM Collection Time: 08/09/19 8:05 AM # # Low-High Magnesium 2.1 1.6 - 2.6 mg/dL Radiology and Other Diagnostic Procedures Review: Reviewed FILLER Associated attestation - Teto Sherman MD - 08/09/2019 11:37 AM TUBE FILLER ATTESTATION This note is associated with the [facility] ICU team note dated today. Date of Service: 08/09/2019 I have seen, personally fully evaluated, and discussed patient with Dr. Gennaro lieberman the [facility] ICU team. I agree with the [...] Lyn Moura PA-C - 08/09/2019 9:59 AM TUBE FILLER Cardiothoracic Surgery Critical Care Progress Note Kemar Lopez Today's Date: 08/09/2019 Admission Date: 08/07/2019 LOS: 2 days Procedure: Chest tube placement at ICU bedside: 86896 (CPT) Bronchoscopy With Bronchial Alveolar Lavage - Flexible: 89249 (CPT) POD#: 2 Principal Problem: Large pleural [...] Neuro pain controlled, cont current regimen. Cont ATM MECHANIC lyrica and lexapro. CV SB/SR, rates 60-70s. BP stable. Continue ATM MECHANIC amlodipine and BB. Continue to monitor hemodynamic stability. Cont ASA 81mg and statin. Cont ATM MECHANIC sildenafil for pulmonary hypertension. Resume ATM MECHANIC amio and Eliquis. Resp Daily CXR bedside interpretation: increased congestion and atelecta sis today, cont to monitor, right CT in place. Will review radiology report. ABG 7.39/61/103/33.2 on comfort flow at 40% 50 LPM. Cont aggressive pulm toilet with ATM MECHANIC inhalers. Chest tubes plan: maintain. Renal Monitor BMP, assess for ADDIE. Baseline creatinine 1.0-1.3. -3L/24hrs wi th 2mg IV Bumex x 2 yesterday. Discontinue ac catheter when hemodynamically s table and appropriate. GI - advance diet as tolerated, cont ATM MECHANIC PPI. n. ID OSH cultures positive for [...] Lyn Moura PA-C CTS Intensive Care Pager [phone] 08/09/2019 Subjective: HPI: Kemar Lopez is a 63 y.o. male who was transferred on 08/07 from [facility] [place], [place] intubated and sedated with dx of acute on chronic r espiratory failure with large right pleural effusion, pseudomonal pneumonia and possible empyema. He has history of HFpEF COPD, HTN, Paroxysmal A fib, NIDDM, CA D. 08/07: CT placed 08/08: diurese, restart ATM MECHANIC sildenafil, wean vent/SBT REVIEW OF SYSTEMS: Review [...] (BUMEX) injection 2 mg 2 mg Intravenous BID(-) fluticasone-salmeterol (ADVAIR DISKUS) 250-50 mcg/dose inhalation disk [...] sium chloride PRN OR magnesium sulfate PRN (Prospecting Observer from Rx), metoprolol Q4H PRN, ondansetron (ZOFRAN) IV Q6H PRN, oxyCODONE Q4H PRN, potassium chloride SR PRN OR potassium chloride PRN OR potassium chloride in water PRN (On Jez l from Rx), sodium chloride 0.9% irrigation bottle Intra-procedure Med, traZODon e QHS PRN Vital Signs: Last Filed Vital Signs: 24 Hour Ra nglizzie BP: 119/39 (08/09 900) Temp: 37.1 C (98.8 F) (08/09 0800) Pulse: 75 (08/09 0900) Respirations: 17 PER MINUTE (08/09 900) SpO2: 94 % (08/09 900) SpO2 Pulse: 75 (08/09 900) BP: (119-169)/(39-67) ABP: (135-211)/(42-65) Temp: [36.6 C (97.9 F)-37.1 C (98.8 F)] Pulse: [61-96] Respirations: [12 PER MINUTE-27 PER MINUTE] SpO2: [82 %-100 %] Vitals: 08/07/19 1649 Weight: (!) 154 kg (339 lb 8.1 oz) Intake/Output Summary: (Last 24 hours) Intake/Output Summary (Last 24 hours) at 08/09/2019958 Last data filed at 08/09/2019 09 Gross per 24 hour Intake 1128.17 ml [...] weaning trial: Per protocol LABS: Recent Labs 08/07/19183308/08/1939908/09/19 0340 08/09/19 0805 NA 146 145 147 [...] 5.9 -- -- -- Recent Labs 08/07/19 18308/08/19 0400 08/09/19 0340 WBC 7.7 8.5 7.4 [...] Radiology and Other Diagnostic Procedures Review: Reviewed FILLER * José Manuel Pino MD - 08/09/2019 7:29 AM TUBE FILLER Extubated on comfort flow. Typically on oxygen at home. Cultures Ngtd. Chest t ube remains serous. CXR increase in opacity bilaterally. Continue pul toilet, diurese. Non surgical. José Manuel Donaldson FILLER * Bita Covington RN - 08/09/2019 7:00 AM TUBE FILLER 12-5 @ 2000 Pt on BIPAP overnight, tolerated well, O2 requirements decreased from 60 % to 40% with SpO2 >92%. Pt encouraged movement and exercises, pt can not lift any extremities at this time. Transferred to High flow NC @ 0600. Pt can lift a cup of water, limited ROM. E ncouraged exercises and ADL. FILLER * August Fisher MD - 08/08/2019 6:04 PM TUBE FILLER I rounded with the ICU team this morning. After placement of chest tube the pat ient's right chest expanded nicely. We will work on extubating the patient. Co ntinue antibiotics for the time being. Continue ICU supportive care measures. No plan for any additional surgical intervention. FILLER * Domingo Fine, RT - 08/08/2019 2:06 PM TUBE FILLER RT Adult Assessment Note NAME:Kemar Lopez :1955 [...] % Breath Sounds: Decreased;Coarse crackles Respiratory Effort: FILLER * Katy Olmstead RN - 08/08/2019 10:37 AM TUBE FILLER Late entry- discussed discrepancies of art line BP and BP cuff with Hafsa kaur RECENTERER. Verbal order received to use BP cuff as BP measurement and use art li ne for blood draws of ABGs. FILLER * Mitch Burdick MD - 08/08/2019 10:11 AM TUBE FILLER Cardiothoracic Surgery Critical Care Progress Note Kemar Lopez Today's Date: 08/08/2019 Admission Date: 08/07/2019 LOS: 1 day Procedure: Chest tube placement at ICU bedside: 95385 (CPT) Bronchoscopy With Bronchial Alveolar Lavage - Flexible: 57882 (CPT) POD#: 1 Principal Problem: Large pleural [...] failure with preserved ejection fraction (HFpEF) (HCC) Assessment/Plan Neuro: Tylenol, opioids PRN. Sedation with propofol. Assess daily for delirium. ATM MECHANIC cymbalta, lyrica, trazodone Cardiac: ATM MECHANIC metoprolol XL, amlodipine, statin, lasix, amiodarone. Hx HFpEF, MA, CAD. H/o SSS and PAF on Eliquis [...] TERE with CPAP at rest/ night. Restart ATM MECHANIC Sildenafil for pHTN and Breo GI: NPO [...] LLE Renal: Cr 1.38 (baseline ~1.3). Lasix ATM MECHANIC. Start Bumex 1mg IV. Monitor UOP FEN: [...] is significant for HFpEF, MO, HTN, HLD, MA s/p CABG, Afib, NIDDM, COPD, TERE. He [...] (BUMEX) injection 1 mg 1 mg Intravenous BID(-) duloxetine DR (CYMBALTA) capsule 60 mg 60 [...] (PROTONIX) injection 40 mg 40 mg Intravenous QDAY() polyethylene glycol 3350 (MIRALAX) packet 17 g [...] sium chloride PRN OR magnesium sulfate PRN (Prospecting Observer from Rx), ondansetron (Z OFRAN) IV Q6H PRN, oxyCODONE Q4H PRN, potassium chloride SR PRN OR potassium chloride PRN OR potassium chloride in water PRN (Prospecting Observer from Rx), sodium c hloride 0.9% irrigation [...] O2 Sat-Arterial 97.5 95 - 99 % Ziehmobrrhb-YXR-Pdp 32.4 (H) 21 - 28 MMOL/L POC [...] O2 Sat-Arterial 96.2 95 - 99 % Rmfjrteymtn-EZF-Pes 31.2 (H) 21 - 28 MMOL/L POC GLUCOSE Collection Time: 08/08/19 7:27 AM # # Low-High Glucose, POC 85 70 - 100 MG/DL Radiology and Other Diagnostic Procedures Review: Reviewed FILLER Associated attestation - Teto Sherman MD - 08/08/2019 9:25 PM TUBE FILLER ATTESTATION This note is associated with the [facility] ICU team note dated today. Date of Service: 08/08/2019 I have seen, personally fully evaluated, and discussed patient with Dr. Gennaro lieberman the [facility] ICU team. I agree with the [...] Teto Sherman MD Date: 08/08/2019 * Katy Olmstead, TEODORA - 08/08/2019 9:33 AM TUBE FILLER Assessment completed, see o2. Patient is sedated and intubated on propofol, marie s blink during conversation and when you say "Ignacio." SR to SB with some PVCs not ed. Chest tube in place as ordered. BS+. UOP adequate. FILLER * Hafsa Jackson, RECENTERER - 08/08/2019 9:29 AM TUBE FILLER Cardiothoracic Surgery Critical Care Progress Note Kemar Lopez Today's Date: 08/08/2019 Admission Date: 08/07/2019 LOS: 1 day Procedure: Chest tube placement at ICU bedside: 18582 (CPT) Bronchoscopy With Bronchial Alveolar Lavage - Flexible: 72038 (CPT) POD#: 1 Principal Problem: Large pleural [...] On mechanically assisted ventilation (HCC) Assessment/Plan: Neuro Wean sedation for SBT. Continue PRN Fentanyl, oxycodone. CV SB/SR, rates 50s-70s. BP 150s-180s/30s-50s per a-line. Continue ATM MECHANIC amlod ipine. Continue to monitor hemodynamic stability, rhythm changes. Cont ASA 81 mg (hold for plts <80k) and statin. Start ATM MECHANIC sildenafil for pulmonary hypertension. Hold BB due [...] Hafsa Jackson APRN CTS Intensive Care Pager [phone] 08/08/2019 Subjective: HPI: Kemar Lopez is a 63 y.o. male who was transferred on 08/07 from [facility] [place], [place] intubated and sedated with dx of acute on chronic r espiratory failure with large right pleural effusion, pseudomonal pneumonia and possible empyema. He has history of HFpEF COPD, HTN, Paroxysmal A fib, NIDDM, CA D. 08/07: CT placed 08/08: diurese, restart ATM MECHANIC sildenafil, wean vent/SBT REVIEW OF SYSTEMS: Review [...] sium chloride PRN OR magnesium sulfate PRN (Prospecting Observer from Rx), ondansetron (Z OFRAN) IV Q6H PRN, potassium chloride SR PRN OR potassium chloride PRN OR* * potassium chloride in water PRN (Prospecting Observer from Rx), sodium chloride 0.9% irriga tion bottle Intra-procedure Med, trazodone(#) QHS PRN Vital Signs: Last Filed Vital Signs: 24 Hour Ra nge BP: 158/57 (08/08 1200) Temp: 37.1 C (98.7 F) (08/08 1150) Pulse: 81 (08/08 1207) Respirations: 12 PER MINUTE (08/08 1207) SpO2: 94 % (08/08 1207) SpO2 Pulse: 81 (08/08 1207) Height: 178 cm (70.08") (08/07 1649) BP: [...] Radiology and Other Diagnostic Procedures Review: Reviewed FILLER * Rebecca Armenta MD - 08/07/2019 8:30 PM TUBE FILLER CTS-ICU Consult Note Kemar Lopez Admission Date: 08/07/2019 LOS: 0 days ASSESSMENT/PLAN ATTESTATION Date of Service: 08/07/2019 I have seen, personally fully evaluated, and discussed patient with the [facility] ICU team. The patient is critically ill [...] heart failure with preserved ejection fraction (HFpEF) ([facility]) 019 Acute pulmonary edema ([facility]) 08/27/2018 History of CHF (congestive heart failure) [...] Chronic obstructive pulmonary disease with acute exacerbation ([facility]) 08/14/20 18 Neuro: Scheduled tylenol PRN opioids per [facility] protocol. Assess daily for deliriu m. ATM MECHANIC cymbalta, lyrica, larisa, trazodone Sedation: propofol and PRN fentanyl. Cardiac: Monitor vitals q1hr. ATM MECHANIC metoprolol XL, amlodipine, statin, lasix. Amio on ATM MECHANIC med list but NSR. TTE in AM. Hx HFpEF, MA. Respiratory: Remains intubated post bronch/thoracentesis. Originally thought to have empyema, now appears to be pleural effusion. Duonebs scheduled. Hopefully extubate tomorrow. COPD/TERE. PH - possibly on sildenafil? GI: NPO until extubated then advance diet as tolerated. GI ppx: PPI. Start CT S bowel regimen, ensure regular BM. OGT placed. Heme: Normocytic anemia. SQ heparin. ATM MECHANIC bASA. Not on ATM MECHANIC anticoagulant. ID: [id number] pending BAL cultures. Hx [...] K+ >4.0 mEq/L. Insulin gtt per Modified [place] Protocol vs correction factor. Activity: Bedrest until [...] is significant for HFpEF, MO, HTN, HLD, MA s/p CABG, Afib, NIDDM, COPD, TERE. He [...] tablet Take 10 mg by mouth daily. bksrrblj-ykr-YC-lycopen-lutein (CENTRUM SILVER ULTRA MEN'S) 300-600-300 mcg tab [...] Diagnostic Procedures Reviewed Rebecca Armenta MD, MS, CCC/TOOL AND DIE SUPERVISOR 08/07/2019 11:36 PM Circuit Recorder, Anesthesiology and Critical Care [phone] or available by Voalte FILLER * Lyn Patten, PHARMD - 08/07/2019 7:43 PM TUBE FILLER Pharmacy Admission Medication History Note Spoke with inpatient pharmacy at [facility] in [place]. Diony hernandez received the following antibiotics prior to transfer: levofloxacin 750 mg - 08/07 at 0930 meropenem 1 g - 08/07 at 1245 Lyn Patten PHARMD 08/07/2019 FILLER * August Fisher MD - 08/07/2019 5:09 PM TUBE FILLER This patient was excepted and transfer from [facility]. The patient is kno wn to . [...] the time being continue all supportive measures. FILLER * Jackie Castaneda RN - 08/07/2019 5:00 PM TUBE FILLER Patient arrived to room # (HC307) via [...] Doc Flowsheet for additional wound details. INTERVENTIONS: FILLER * Jackie Castaneda RN - 08/07/2019 4:40 PM TUBE FILLER 1640- Pt arrived per EMS intubated and sedated. Dr. Cali at bedside, R ple ural CT placed, 950 serous output initially. Bronched, culture sent. 1715- ART line placed. Pt alvarado cultured (urine, blood, pleural). FILLER documented in this encounter H&P Notes * Hamilton Ariza MD - 08/09/2019 1:47 PM TUBE FILLER Admission History and Physical Examination Name: Kemar [...] a-fib, and mixed COPD, who presented to [facility] on 08/07/2019 as a transfer from [place], [place], with a chief complaint of acute [...] signs of infection, [facility] showed Pseudomonas aeruginosa and Enterobacter cloacae. Chest tube dr dyened about 950mL of pleural fluid upon placement. [...] - denies current SI/HI Plan: > continue ATM MECHANIC escitalopram 20mg daily > trazodone 100mg qhs [...] pre ssure 45-50mmHg. - Additional echo at [facility] in [place] 07/08/19 with EF 60%, LVH, aortic sclerosis [...] Yes. Strict I/O. Paroxysmal atrial fibrillation - [id number] score 2 - rate controlled on admission, HR 50s at OSH Plan: > ATM MECHANIC metoprolol 25mg q8hrs > Amiodarone 200mg daily > will cautiously continue Eliquis in setting of recent recurrent GI bleeds HTN CAD - last coronary catheterization in 2010, no stents placed previously Plan: > continue ATM MECHANIC ASA 81mg, Lipitor 10mg > metoprolol tartrate [...] 23/04 settings. > Michael Meza ordered. Continue ATM MECHANIC roflumilast > Pulmonary toilet __ GI Recurrent GI bleed - patient with reported recurrent GI bleeds while on apixaban - EGD & colonoscopy 06/28/19 showed gastritis and hiatal hernia and colonic polyps. Repeat 07/11/19 at [facility] showed a nonbleeding sigmoid and ascending colon [...] Hamilton Ariza MD PGY-2, Internal Medicine Pager [phone], or on Voalte __ Primary Care Physician: Ricky Cleveland Chief Complaint: Acute respiratory failure, altered mental status History of Present Illness: Kemar Lopez is a 63 y.o. male with active comorbidities of HTN, CAD, HFpEF, par oxysmal a-fib, and mixed COPD, who presented to [facility] on 08/07/2019 as a transfer from [place], [place], with a chief complaint of acute respiratory failure and conc jose angel for empyema, admitted for acute hypoxic and hypercarbic respiratory failure with large right pleural effusion. Patient initially presented to [facility] in [place], [place] on 08/03 for shortness of breath. [...] mary, and the patient was transferred to [facility]. He was initially admitted to the CT [...] improved sinc e his initial presentation to [facility], although he does not feel it is [...] heart failure with preserved ejection fraction (HFpEF) ([facility]) Chronic renal failure COPD (chronic obstructive pulmonary disease) ([facility]) Depression History of GI bleed HTN (hypertension) Non-insulin dependent type 2 diabetes mellitus (HCC) Obesity, morbid, BMI 40.0-49.9 ([facility]) TERE treated with BiPAP Paroxysmal atrial fibrillation ([facility]) Surgical History: Procedure Laterality Date Chest tube placement at ICU bedside Right 08/07/2019 Performed by August Fisher MD at [facility] Bronchoscopy With Bronchial Alveolar Lavage - Flexible Right 08/07/2019 Performed by August Fisher MD at [facility] HX HEART CATHETERIZATION VASECTOMY No family history [...] file Gets together: Not on file Attends quaker service: Not on file Active member of [...] Take 12.5 mg by mout h daily. zhswbjmq-lsz-SF-lycopen-lutein (CENTRUM SILVER ULTRA MEN'S) 300-600-300 mcg tab [...] PER MINUTE (08/09 1300) SpO2: 91 % (12/06 1300) SpO2 Pulse: 70 (08/09 1200) BP: [...] Sat-Arterial 99.5 (H) 95 - 99 % Wvmefneduvn-THI-Ssh 29.4 (H) 21 - 28 MMOL/L POC [...] O2 Sat-Arterial 97.9 95 - 99 % Zdqzvqtkouo-EFN-Bzj 33.2 (H) 21 - 28 MMOL/L POTASSIUM [...] Pertinent radiology reviewed. HAMILTON ARIZA MD Pager [phone] FILLER Associated attestation - Topher Marinelli MD - 08/09/2019 3:44 PM TUBE FILLER MICU STAFF NOTE This note is an [...] Manuel Pino MD - 08/07/2019 5:45 PM TUBE FILLER Admission History and Physical Examination Name: Kemar [...] 63 y.o. male Who was transferred from [facility] [place], [place] intubated and sedated with dx of [...] and was deemed to have type II MA by cardiology. Used to on eliquis however [...] failure with preserved ejection fraction (HFpEF) (HCC) COPD (chronic obstructive pulmonary disease) (HCC) History of GI bleed HTN (hypertension) Obesity, morbid, BMI 40.0-49.9 (HCC) Paroxysmal atrial fibrillation (HCC) Surgical History: Procedure Laterality Date HX HEART [...] file Gets together: Not on file Attends quaker service: Not on file Active member of [...] tablet Take 10 mg by mouth daily. bluejnzu-tmq-XD-lycopen-lutein (CENTRUM SILVER ULTRA MEN'S) 300-600-300 mcg tab [...] (08/07 1746) Respirations: 26 PER MINUTE (08/07 174) SpO2: 96 % (08/07 1746) Height: 178 [...] O2 Sat-Arterial 97.5 95 - 99 % Jqehcejyojb-JKJ-Ryt 32.4 (H) 21 - 28 MMOL/L Pertinent radiology reviewed. José Manuel Pino MD Pager [phone] FILLER documented in this encounter Procedure Notes * Jose Miguel Martínez MD - 08/10/2019 2:42 PM TUBE FILLER Chest tube removal Dressing removed. Sutures removed with exception of one previously placed by CTS . Chest tube removed while patient humming. Wound closed with one simple interru pted suture after anesthesia with lidocaine. All of the above performed under cl donato/sterile conditions. FILLER documented in this encounter Consult Notes * Jose Miguel Martínez MD - 08/09/2019 11:42 AM TUBE FILLER Associated Order(s): CONSULT PULMONARY/CRITICAL CARE PHYSICIAN Consult for transfer of care. Patient's chart reviewed and patient subsequently evaluated. Appropriate for MICU transfer. Seen and discussed with Dr. Abbasi who ag carson. Dr. Hightower accepted to MICU. FILLER Associated attestation - Jazmyne Abbasi MD - 08/13/2019 10:06 PM TUBE FILLER Patient seen with fellow. Agree with transfer to MICU. documented in this encounter Miscellaneous Notes * Case Mgmt DC Plan - Ashwini Morenowendi - 08/14/2019 9:34 AM TUBE FILLER Case Management Progress Note NAME:Kemar Lopez :[birth year] AGE: 63 y.o. ADMISSION DATE: 08/07/2019 DAYS ADMITTED: LOS: 7 days Todays Date: 08/14/2019 Plan Discharge to [facility] today at 1000 via [facility] Interventions ? Support ? Info or Referral ? Discharge Planning SW reviewed progress notes and discussed patient with ICU team and RNCM. Disch arge to [facility] today at 1000. Patient might have CDIFF, labs pending. SW updated Ana at [facility]. The y will still accept and would like results once completed. CATHY confirmed plans with patient. CATHY tasked [facility] to start transfer packet. CATHY faxed orders and completed transfer packet. [facility] arranged for 1000. PCS form completed. CATHY attempted to call daughter-Sylvia. Phone numbers for her are not working. CATHY updated RN about all plans. Patient is stable to discharge from [facility]. ? Medication Needs ? Financial ? Legal ? Other Disposition ? Expected Discharge Date Expected Discharge Date: 08/14/19 Expected Discharge Time: 1000 ? Transportation Does the patient need discharge transport arranged?: No Transportation Name, Phone and Availability #1:[facility] [phone] Does the patient use Medicaid Transportation?: No ? Next Level of Care (Acute Psych discharges only) ? Discharge Disposition Durable Medical Equipment No service has been selected for the patient. [facility] Destination - Selection Complete Service Provider Request Status Selected Services Address Phone Number Fax Numb er [facility] Selected Inpatient Rehabilitation [address] [place] [address] [phone] Home Care No service has been selected for the patient. Dialysis/Infusion No service has been selected for the patient. Odalis Moreno LMSW [phone] (phone) [phone] (pager) FILLER * Case Mgmt DC Plan - Martina Sears - 08/14/2019 9:01 AM TUBE FILLER STRUCTURAL STEEL SHOP SUPERVISOR Note Transfer packet completed and placed in patient's wall unit for discharge. Martina Sears Hydrotel Operator FILLER * Case Mgmt DC Plan - Odalis Moreno - 08/13/2019 3:06 PM TUBE FILLER Case Management Progress Note NAME:Kemar Lopez :[birth year] AGE: 63 y.o. ADMISSION DATE: 08/07/2019 DAYS ADMITTED: LOS: 6 days Todays Date: 08/13/2019 Plan Discharge to [facility] at 1000 [facility] arranged. Interventions ? Support ? Info or Referral ? Discharge Planning CATHY reviewed progress notes and discussed patient with ICU team and RNCM. Kristyn nt will be ready to discharge on Monday. SW spoke with [facility], they no longer have IPR. They are recommending IPR at [facility]. CATHY met with patient and dgt-Sylvia and discussed. They are agreeable to [facility] IPR. They deny needing any additional facilities/lists. SW made a referral to [facility]. December contacted SW and explained patient has been accepted. SW discussed transport with patient/dgt, they are agreeable to non-emergency amb ulance, as patient is not able to stand or transfer. CATHY arranged transport through [facility] for 1000. CATHY updated RN and medical team. SW to [...] Address Phone Number Fax Numb er [facility] Selected Inpatient Rehabilitation [address] [facility] [address] [phone] Home Care No service has been selected for the patient. Dialysis/Infusion No service has been selected for the patient. Odalis Moreno LMSW [phone] (phone) [phone] (pager) FILLER * Transfer - Susanna Eckert APRN - 08/13/2019 11:27 AM TUBE FILLER In-Hospital Transfer Note Admission Diagnosis: Respiratory failure [...] heart failure with preserved ejection fraction (HFpEF) ([facility]) Hospital Course: 63 y/o Mw/ PMHHTN, CAD, HFpEF, paroxysmal a-fib&mixed COPD presented to s a transfer from [place], [place] w/acute respiratory failure & concern for [...] Significant Medication Information: - Switched lasix-->bumex - ATM MECHANIC eliquis - Continuing to hold amlodipine/lisinopril w/ normotension - On advair here but can dc on ATM MECHANIC breo Procedures With Dates: - Diagnostic bronchoscopy with bilateral bronchioalveolar lavage and Right sided Chest tube insertion 08/07 - CT removed 08/10 Consults: - None Follow-Up Items: - Nothing specific, waiting on dispo placement Activity/Weight bearing status: - PT ordered Nutrition: - Cardiac diet Discharge Plan: - SW working on placement Susanna Eckert NP Pulmonary Critical Care Contact via Voalte or Leapfactoratr Pager [phone] pager [phone] FILLER * Care Plan - Bita Muller RN - 08/12/2019 11:22 PM TUBE FILLER Goals ongoing, patient and actively involved in care. FILLER * Case Mgmt DC Plan - Deandra Gomez - 08/12/2019 3:13 PM TUBE FILLER STRUCTURAL STEEL SHOP SUPERVISOR Note: Sent placement request via Epic to the below IPR and SNF facilities, per request from CONNIE Hauser *[address] [address] [facility] [place] [address], [place] [address] Updated CONNIE. Deandra Gomez Hydrotel Operator FILLER * Care Plan - Massiel Ricci, TEODORA - 08/11/2019 9:37 PM TUBE FILLER Care plan ongoing FILLER * Case Mgmt DC Plan - Odalis Moreno - 08/11/2019 1:23 PM TUBE FILLER Case Management Progress Note NAME:Kemar Lopez :[birth year] AGE: 63 y.o. ADMISSION DATE: 08/07/2019 DAYS ADMITTED: LOS: 4 days Todays Date: 08/11/2019 Plan Discharge planning ongoing Transfer to [facility] following PT/OT: IP Patient is hopeful to discharge home with [facility] but he is also open to [place] [facility] ([place]) vs [facility] Interventions ? Support ? Info or Referral ? Discharge Planning SW reviewed progress notes. Transfer to floor. Continue diuresis and Meropenem (until 08/13). Patient is back on baseline oxygen. Chest tube removed. PT/OT is recommending inpatient. SW met with patient and dgt-Robin larsend current recommendations. He is hopeful he can discharge home but they are o pen to placement if needed. SW discussed post-acute services [facility]. [facility] with quality data from Medicare Compare and offered to answer qu estions. Patient selected the following: [facility] [facility] (as he was there for [facility] recently and they were really happy with their care) vs [facility] SW discussed benefits and qualifications for both. Patient would like PT/OT to weigh in on if they think he could tolerate three hours of therapy a day to q ualify for IPR. SW and RNCM will [...] only) ? Discharge Disposition Odalis Moreno LMSW [phone] (phone) [phone] (pager) FILLER * Transfer - Hamilton Ariza MD - 08/11/2019 11:43 AM TUBE FILLER In-Hospital Transfer Note Admission Diagnosis: Acute hypoxic [...] presented on 08/07 as a transfer from [place], [place] for a possible empyema. [facility] with altered mental status, found to have [...] usion on imaging. He was transferred to [facility] for a possible empyema. He was in [...] was quickly extubated to comfort flow O2. H lizzie was transferred to the MICU given he [...] best placement options. HAMILTON ARIZA MD Pager [phone] FILLER * Care Plan - Bita Covington RN - 08/09/2019 2:46 AM TUBE FILLER Problem: Discharge Planning Goal: Participation in plan [...] while physically restrained (Non-Violent) Outcome: Goal Achieved FILLER * Case Mgmt DC Plan - Leticia Sears - 08/08/2019 1:15 PM TUBE FILLER Case Management Admission Assessment NAME:Kemar Lopez : 5 AGE: 63 y.o. ADMISSION DATE: 08/07/2019 DAYS ADMITTED: LOS: 1 day Todays Date: 08/08/2019 Source of Information: Patient Sylvia sood Plan Plan: Case Management Assessment, Assist PRN [...] the patient's primary care physician. transferred from [place] [address] [place], [place] intubated and s edated with dx [...] continue to follow. Patient Address/Phone [address] [place] [phone] (home) Emergency Contact Extended Emergency Contact Information Primary Emergency Contact: Sylvia Lopez Mobile Relation: Daughter Tank Pumper Panelboard needed? No Healthcare Directive Not on file [...] unabl e to locate card. NCM tasked STRU[employer]URAL STEEL SHOP SUPERVISOR to verify ) Additional Coverage: RX(Medicare part D however unable to locate a card-- NCM to also verify. ) ? Source of [...] Dr. Reyna Macdonald: Dr. Forrest ? Pharmacy [facility] #[id number] [facility] [address] [address] ? Durable Medical Equipment Durable Medical Equipment [...] ? Outpatient Therapy PT: No OT: No TOOL AND DIE SUPERVISOR: No ? [facility] Facility/[facility] SNF: No NH: No ? Inpatient Rehab IPR: No ? Long-Term Acute [facility] Hospital LTACH: In the past When did patient receive care?: About a year ago Name of Facility: [place] Would patient return for future services?: Yes ? Acute Hospital Stay Acute Hospital Stay: In the past Was patient's stay within the last 30 days?: Yes Name of Hospital: Other (comment) Leticia CORREA, charging board operator Nurse Chrome Plater Helper Inpatient Cardiothoracic Surgery M-F [phone] O: [phone] [id number] FILLER * Care Plan - Katy Olmstead RN - 08/08/2019 10:43 AM TUBE FILLER Problem: Discharge Planning Goal: Participation in plan [...] while physically restrained (Non-Violent) Outcome: Goal Ongoing FILLER * Care Plan - Ananya Neal RN - 08/08/2019 6:11 AM TUBE FILLER Problem: Discharge Planning Goal: Participation in plan of care Outcome: Goal Ongoing Flowsheets (Taken 08/08/2019 0609) Participation in Plan of Care: Involve patient/caregiver in care planning decisi on making Note: Patient continues to ask questions and provide input for expectations for the pl an of care Goal: Knowledge regarding plan of care Outcome: Goal Ongoing Flowsheets (Taken 08/08/2019 0609) Knowledge regarding plan of care: Provide procedural and treatment education; Pr ovide fall prevention education; Provide medication management education Note: Pt able to discuss previous, home, and current POC with global technical writer Goal: Prepared for discharge Outcome: Goal Ongoing Flowsheets (Taken 08/08/2019 0609) Prepared for discharge: Provide diet and oral health education; Provide safe use medical equipment education; Collaborate with multidisciplinary team for hospit al discharge coordination Problem: Infection, Risk of, Urinary Catheter-Associated Urinary Tract Infection Goal: Absence of urinary catheter-associated infection Outcome: Goal Ongoing Flowsheets (Taken 08/08/2019 0609) Absence of urinary catheter-associated infections: Assess for [...] infection Outcome: Goal Ongoing Flowsheets (Taken 08/08/2019 0609) Absence of CVC associated bloodstream infection: Follow central line bundle com ponents; Manage central venous catheter; Preparation for central venous catheter insertion Note: Implement measures to prevent device associated and surgical site infections per standard of practice Problem: Injury-Risk of, Non-Violent Physical Restraints Goal: Absence of Injury while physically restrained (Non-Violent) Outcome: Goal Ongoing Flowsheets (Taken 08/08/2019 0609) Absence of injury while physically restrained - non-violent: Consult to psychiat ayanna consult team; Monitor/document for non-violent patients FILLER documented in this encounter Plan of Treatment Date/Time Name Type Priority Associated Diag noses 08/07/2019 5:44 PM TUBE FILLER CULTURE-FUNGAL,OTHER Microbiology Routine 08/07/2019 5:21 PM TUBE FILLER CULTURE-TB (AFB) Microbiology Routine Empyema, righ t (HCC) 08/07/2019 5:21 PM TUBE FILLER CULTURE-FUNGAL,OTHER Microbiology Routine Empyema, right (HCC) documented as of this encounter Goals Goal Patient Associated Recent Progress Patient-Stat Aut hor Goal Type Problems ed? 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 RN documented as of this encounter Procedures Comments Procedure Name Priority Date/Time Associated Diag nosis HC CBC W/ AUTOMATED DIFF Routine 08/14/2019 3:30 AM TUBE FILLER HC PHOSPHOROUS, SERUM Routine 08/14/2019 3:30 AM TUBE FILLER HC MAGNESIUM Routine 08/14/2019 3:30 AM TUBE FILLER HC BASIC METABOLIC PANEL Routine 08/14/2019 3:30 AM TUBE FILLER HC C DIFFICILE BY PCR Routine 08/13/2019 4:36 PM TUBE FILLER POC GLUCOSE 08/13/2019 11:01 AM TUBE FILLER HC CBC W/ AUTOMATED DIFF Routine 08/13/2019 5:11 AM TUBE FILLER HC PHOSPHOROUS, SERUM Add on 08/13/2019 5:11 AM TUBE FILLER HC MAGNESIUM Routine 08/13/2019 5:11 AM TUBE FILLER HC BASIC METABOLIC PANEL Routine 08/13/2019 5:11 AM TUBE FILLER POC GLUCOSE 08/13/2019 2:17 AM TUBE FILLER POC GLUCOSE 08/12/2019 9:21 PM TUBE FILLER POC GLUCOSE 08/12/2019 2:26 PM TUBE FILLER POC GLUCOSE 08/12/2019 8:47 AM TUBE FILLER CHEST SINGLE VIEW STAT 08/12/2019 4:50 AM TUBE FILLER HC CBC W/ AUTOMATED DIFF Routine 08/12/2019 4:09 AM TUBE FILLER HC MAGNESIUM Routine 08/12/2019 4:09 AM TUBE FILLER HC BASIC METABOLIC PANEL Routine 08/12/2019 4:09 AM TUBE FILLER POC GLUCOSE 08/12/2019 4:04 AM TUBE FILLER BASIC METABOLIC PANEL Routine 08/11/2019 11:57 PM TUBE FILLER POC GLUCOSE 08/11/2019 9:01 PM TUBE FILLER POC GLUCOSE 08/11/2019 2:25 PM TUBE FILLER POC GLUCOSE 08/11/2019 8:43 AM TUBE FILLER CHEST SINGLE VIEW STAT 08/11/2019 4:42 AM TUBE FILLER HC CBC W/ AUTOMATED DIFF Routine 08/11/2019 3:14 AM TUBE FILLER HC MAGNESIUM STAT 08/11/2019 3:14 AM TUBE FILLER HC BASIC METABOLIC PANEL Routine 08/11/2019 3:14 AM TUBE FILLER POC GLUCOSE 08/11/2019 2:14 AM TUBE FILLER POC GLUCOSE 08/10/2019 8:52 PM TUBE FILLER CHEST SINGLE VIEW Routine 08/10/2019 2:56 PM TUBE FILLER POC GLUCOSE 08/10/2019 2:45 PM TUBE FILLER POC GLUCOSE 08/10/2019 8:37 AM TUBE FILLER POC GLUCOSE 08/10/2019 4:38 AM TUBE FILLER CHEST SINGLE VIEW Routine 08/10/2019 4:28 AM TUBE FILLER HC CBC W/ AUTOMATED DIFF Routine 08/10/2019 3:40 AM TUBE FILLER HC MAGNESIUM STAT 08/10/2019 3:40 AM TUBE FILLER HC BASIC METABOLIC PANEL Routine 08/10/2019 3:40 AM TUBE FILLER POC GLUCOSE 08/09/2019 9:47 PM TUBE FILLER HC B-TYPE NATRIURETIC Routine 08/09/2019 PEPTIDE 4:00 PM TUBE FILLER POC GLUCOSE 08/09/2019 3:46 PM TUBE FILLER POC GLUCOSE 08/09/2019 1:13 PM TUBE FILLER HC POTASSIUM, SERUM Routine 08/09/2019 1:10 PM TUBE FILLER HC MAGNESIUM Routine 08/09/2019 1:10 PM TUBE FILLER POTASSIUM Routine 08/09/2019 8:05 AM TUBE FILLER HC MAGNESIUM Routine 08/09/2019 8:05 AM TUBE FILLER HC BLOOD Routine 08/09/2019 GASES;(CALCULATED 02) 8:05 AM TUBE FILLER POC GLUCOSE 08/09/2019 8:04 AM TUBE FILLER CHEST SINGLE VIEW Routine 08/09/2019 4:38 AM TUBE FILLER HC CBC W/ AUTOMATED DIFF Routine 08/09/2019 3:40 AM TUBE FILLER HC MAGNESIUM STAT 08/09/2019 3:40 AM TUBE FILLER HC BASIC METABOLIC PANEL Routine 08/09/2019 3:40 AM TUBE FILLER POC GLUCOSE 08/08/2019 8:51 PM TUBE FILLER POC GLUCOSE 08/08/2019 7:00 PM TUBE FILLER HC BLOOD Routine 08/08/2019 GASES;(CALCULATED 02) 2:05 PM TUBE FILLER HC BLOOD GAS, POC 08/08/2019 1:06 PM TUBE FILLER HC SODIUM, POC 08/08/2019 1:06 PM TUBE FILLER HC POTASSIUM, POC 08/08/2019 1:06 PM TUBE FILLER HC IONIZED CA, POC 08/08/2019 1:06 PM TUBE FILLER HC HEMATOCRIT POC 08/08/2019 1:06 PM TUBE FILLER POC GLUCOSE 08/08/2019 1:04 PM TUBE FILLER HC BLOOD Routine 08/08/2019 GASES;(CALCULATED 02) 11:00 AM TUBE FILLER CHEST SINGLE VIEW STAT 08/08/2019 7:44 AM TUBE FILLER POC GLUCOSE 08/08/2019 7:27 AM TUBE FILLER HC PTT(APTT) STAT 08/08/2019 4:00 AM TUBE FILLER HC CBC W/ AUTOMATED DIFF Routine 08/08/2019 4:00 AM TUBE FILLER HC MAGNESIUM STAT 08/08/2019 4:00 AM TUBE FILLER HC BLOOD STAT 08/08/2019 GASES;(CALCULATED 02) 4:00 AM TUBE FILLER HC BASIC METABOLIC PANEL Routine 08/08/2019 4:00 AM TUBE FILLER POC GLUCOSE 08/07/2019 9:51 PM TUBE FILLER CULTURE-BLOOD Routine 08/07/2019 W/SENSITIVITY 6:34 PM TUBE FILLER HC PTT(APTT) Routine 08/07/2019 6:34 PM TUBE FILLER HC PT(INR) Routine 08/07/2019 6:34 PM TUBE FILLER HC CBC W/ AUTOMATED DIFF STAT 08/07/2019 6:34 PM TUBE FILLER HC MAGNESIUM STAT 08/07/2019 6:34 PM TUBE FILLER HC HEMOGLOBIN A1C Routine 08/07/2019 6:34 PM TUBE FILLER HC BLOOD STAT 08/07/2019 GASES;(CALCULATED 02) 6:34 PM TUBE FILLER HC Routine 08/07/2019 LIPID-5:CHOL/TRG/HDL/LDL+ 6:34 PM TUBE FILLER VLDL HC COMPREHENSIVE STAT 08/07/2019 METABOLIC PANEL 6:34 PM TUBE FILLER HC CULTURE-BLOOD Routine 08/07/2019 6:05 PM TUBE FILLER HC CULTURE-URINE Routine 08/07/2019 5:59 PM TUBE FILLER HC NON-REGULATOR PIN INSERTER/THIN PREP Routine 08/07/2019 5:58 PM TUBE FILLER HC TOTAL PROTEIN-FLUID Routine 08/07/2019 5:44 PM TUBE FILLER HC PH-FLUID Routine 08/07/2019 5:44 PM TUBE FILLER HC LDH-FLUID Routine 08/07/2019 5:44 PM TUBE FILLER HC GLUCOSE-FLUID Routine 08/07/2019 5:44 PM TUBE FILLER HC AMYLASE-FLUID Routine 08/07/2019 5:44 PM TUBE FILLER HC GRAM STAIN 08/07/2019 5:44 PM TUBE FILLER CULTURE-WOUND/TISSUE/FLUI Routine 08/07/2019 D(AEROBIC 5:44 PM TUBE FILLER ONLY)W/SENSITIVITY CHEST SINGLE VIEW STAT 08/07/2019 5:30 PM TUBE FILLER HC GRAM STAIN Routine 08/07/2019 Empyema, right (HCC) 5:21 PM TUBE FILLER HC CULTURE-LOWER RESP Routine 08/07/2019 5:21 PM TUBE FILLER TELEMETRY STRIPS-SCAN 08/07/2019 12:00 AM TUBE FILLER documented in this encounter Results * PHOSPHORUS (08/14/2019 3:30 AM TUBE FILLER) Pathologist [facility] Phosphorus 2.6Comment: NOTE NEW REFERENCE 2.0 - 4.5 MG/DL [facility] RANGES Specimen Blood Performing Organization Address City/State/Zipcode Ph one Number [facility] [address] [place] [address] * CBC AND DIFF (08/14/2019 3:30 AM TUBE FILLER) Pathologist [facility] White Blood 6.2 4.5 - 11.0 K/UL [...] Basophil Count Specimen Blood Performing Organization Address [facility] one Number [facility] [address] [place] [address] * BASIC METABOLIC PANEL (08/14/2019 3:30 AM TUBE FILLER) Sodium 147 137 - 147 MMOL/L K[facility] [...] >60 >60 mL/min [facility] Comment: [place] The eGFR is not validated f or use in drug dosing adjustments. Continue to use estimated creatinine clearance per dosing reference text. Please contact the Clinical Pharmacist for questions. eGFR >60 >60 mL/min [facility] [place] Comment: The eGFR is not validated for use in drug dosing adjustments. Continue to use estimated creatinine clearance per dosing reference text. Please contact the Clinical Pharmacist for questions. Specimen Blood Performing Organization Address [facility] one Number [facility] [address] [place] [address] * MAGNESIUM (08/14/2019 3:30 AM TUBE FILLER) Magnesium 1.8 1.6 - 2.6 mg/dL [facility] Specimen Blood Performing Organization Address City/[facility] one Number [facility] [address] [place] [address] * C DIFFICILE BY PCR (08/13/2019 4:36 PM TUBE FILLER) Pathologist [facility] C. difficile NEGATIVE-wait 7 days to repeat [facility] Toxin B PCR test Specimen Feces Performing Organization Address [facility] Ph one Number MAIN LAB [address] [place] [address] * POC GLUCOSE (08/13/2019 11:01 AM TUBE FILLER) Pathologist [facility] Glucose, POC 231 (H) 70 - 100 MG/DL MAIN LAB Specimen Performing Organization Address [facility] Ph one Number MAIN LAB [address] [place] [address] * PHOSPHORUS (08/13/2019 5:11 AM TUBE FILLER) Pathologist [facility] Phosphorus 3.6Comment: NOTE NEW REFERENCE 2.0 - 4.5 MG/DL MAIN LAB RANGES Specimen Performing Organization Address [facility] one Number MAIN LAB [address] [place] [address] * MAGNESIUM (08/13/2019 5:11 AM TUBE FILLER) Pathologist [facility] Magnesium 1.9 1.6 - 2.6 mg/dL MAIN LAB Specimen Blood Performing Organization Address [facility] one Number MAIN LAB [address] [place] [address] * CBC AND DIFF (08/13/2019 5:11 AM TUBE FILLER) [facility] White Blood 6.4 4.5 - 11.0 K/UL MAIN LAB Cells RBC 2.84 (L) 4.4 - 5.5 M/UL MAIN LAB Hemoglobin 8.3 (L) 13.5 - 16.5 GM/DL MAIN LAB Hematocrit 24.7 (L) 40 - 50 % MAIN LAB MCV 87.1 80 - 100 FL MAIN LAB MCH 29.1 26 - 34 PG MAIN LAB MCHC 33.5 32.0 - 36.0 G/DL MAIN LAB RDW 16.7 (H) 11 - 15 % MAIN LAB Platelet Count 96 (L) 150 - 400 K/UL MAIN LAB MPV 7.4 7 - 11 FL MAIN LAB Neutrophils 75 41 - 77 % MAIN LAB Lymphocytes 13 (L) 24 - [...] Basophil Count Specimen Blood Performing Organization Address City/[facility] Ph one Number [facility] [address] [place] [address] * BASIC METABOLIC PANEL (08/13/2019 5:11 AM TUBE FILLER) [facility] Sodium 144 137 - 147 MMOL/L KU [...] >60 >60 mL/min [facility] Comment: [place] The eGFR is not validated f or use in drug dosing adjustments. Continue to use estimated creatinine clearance per dosing reference text. Please contact the Clinical Pharmacist for questions. eGFR >60 >60 mL/min [facility] [place] Comment: The eGFR is not validated for use in drug dosing adjustments. Continue to use estimated creatinine clearance per dosing reference text. Please contact the Clinical Pharmacist for questions. Specimen Blood Performing Organization Address City/[facility] Ph one Number [facility] [address] [place] [address] * POC GLUCOSE (08/13/2019 2:17 AM TUBE FILLER) Glucose, POC 87 70 - 100 MG/DL [facility] Specimen Performing Organization Address City/[facility] Ph one Number MAIN LAB [address] [place] [address] * POC GLUCOSE (08/12/2019 9:21 PM TUBE FILLER) Glucose, POC 182 (H) 70 - 100 MG/DL [facility] Specimen Performing Organization Address [facility] one Number [facility] [address] [place] [address] * POC GLUCOSE (08/12/2019 2:26 PM TUBE FILLER) Glucose, POC 153 (H) 70 - 100 MG/DL [facility] Specimen Performing Organization Address [facility] one Number [facility] [address] [place] [address] * POC GLUCOSE (08/12/2019 8:47 AM TUBE FILLER) Glucose, POC 96 70 - 100 MG/DL MAIN LAB Specimen Performing Organization Address [facility] one Number MAIN LAB [address] [place] [address] * CHEST SINGLE VIEW (08/12/2019 4:50 AM TUBE FILLER) Specimen Impressions Performed At Stable chest radiograph [...] Interface, Radiant Results - 08/12/2019 9:32 AM TUBE FILLER CHEST SINGLE VIEW History: empyema. Technique: Single [...] on 08/12/2019 9:27 AM. Performing Organization Address [facility] one Number [facility] RAD RESULTS * MAGNESIUM (08/12/2019 4:09 AM TUBE FILLER) Pathologist [facility] Magnesium 1.9 1.6 - 2.6 mg/dL [facility] Specimen Blood Performing Organization Address [facility] one Number [facility] [address] [place] [address] * CBC AND DIFF (08/12/2019 4:09 AM TUBE FILLER) Pathologist [facility] White Blood 7.2 4.5 - 11.0 K/UL [...] Basophil Count Specimen Blood Performing Organization Address [facility]/State/Zipcode Ph one Number MAIN LAB [address] [place] [address] * BASIC METABOLIC PANEL (08/12/2019 4:09 AM TUBE FILLER) Sodium 145 137 - 147 MMOL/L KU [...] (L) >60 mL/min [facility] Comment: [place] The eGFR is not validated f or use in drug dosing adjustments. Continue to use estimated creatinine clearance per dosing reference text. Please contact the Clinical Pharmacist for questions. eGFR >60 >60 mL/min [facility] [place] Comment: The eGFR is not validated for use in drug dosing adjustments. Continue to use estimated creatinine clearance per dosing reference text. Please contact the Clinical Pharmacist for questions. Specimen Blood Performing Organization Address City/[facility] Ph one Number MAIN LAB [address] [place] [address] * POC GLUCOSE (08/12/2019 4:04 AM TUBE FILLER) Glucose, POC 95 70 - 100 MG/DL MAIN LAB Specimen Performing Organization Address City/[facility] Ph one Number [facility] [address] [place] [address] * BASIC METABOLIC PANEL (08/11/2019 11:57 PM TUBE FILLER) Sodium 145 137 - 147 MMOL/L [facility] Potassium 4.1 3.5 - 5.1 MMOL/L [facility] Chloride 100 98 - 110 MMOL/L [facility] CO2 37 (H) 21 - 30 MMOL/L [facility] Anion Gap 8 3 - 12 [facility] Glucose 100 70 - 100 MG/DL [facility] Blood Urea 44 (H) 7 - 25 MG/DL [facility] Nitrogen Creatinine 1.33 (H) 0.4 - 1.24 MG/DL [facility] Calcium 8.6 8.5 - 10.6 MG/DL [facility] eGFR Non 54 (L) >60 mL/min MAIN LAB Comment: [place] The eGFR is not validated f or use in drug dosing adjustments. Continue to use estimated creatinine clearance per dosing reference text. Please contact the Clinical Pharmacist for questions. eGFR >60 >60 mL/min [facility] [place] Comment: The eGFR is not validated for use in drug dosing adjustments. Continue to use estimated creatinine clearance per dosing reference text. Please contact the Clinical Pharmacist for questions. Specimen Blood Performing Organization Address City/[facility] Ph one Number [facility] [address] [place] [address] * POC GLUCOSE (08/11/2019 9:01 PM TUBE FILLER) Glucose, POC 114 (H) 70 - 100 MG/DL MAIN LAB Specimen Performing Organization Address [facility] one Number MAIN LAB [address] [place] [address] * POC GLUCOSE (08/11/2019 2:25 PM TUBE FILLER) Glucose, POC 117 (H) 70 - 100 MG/DL MAIN LAB Specimen Performing Organization Address [facility] one Number MAIN LAB [address] [place] [address] * POC GLUCOSE (08/11/2019 8:43 AM TUBE FILLER) Glucose, POC 147 (H) 70 - 100 MG/DL MAIN LAB Specimen Performing Organization Address [facility] one Number MAIN LAB [address] [place] [address] * CHEST SINGLE VIEW (08/11/2019 4:42 AM TUBE FILLER) Specimen Impressions Performed At No significant change in bilateral pleural effusions and patchy bilateral [facility] RESULTS pulmonary opacities. No definite pneumo thorax. By my electronic signature, I attest th at I have personally reviewed the images for this examination and formulated the interpretations and opinions expressed in this report Finalized by ARIADNA CHAVEZ M.D. on 08/11 10:15 AM. Dictated by Cameorn Goncalves M.D. on 08/11/2019 9:51 AM. Narrative [...] Interface, Radiant Results - 08/11/2019 10:18 AM TUBE FILLER Procedure: CHEST SINGLE VIEW Clinical Indication: Empyema, [...] on 08/11/2019 9:51 AM. Performing Organization Address City/[facility] Ph one Number [facility] RESULTS * MAGNESIUM (08/11/2019 3:14 AM TUBE FILLER) Pathologist [facility] Magnesium 1.9 1.6 - 2.6 mg/dL [facility] Specimen Blood Performing Organization Address [facility] Ph one Number [facility] [address] [place] [address] * BASIC METABOLIC PANEL (08/11/2019 3:14 AM TUBE FILLER) Sodium 145 137 - 147 MMOL/L KU [...] (L) >60 mL/min [facility] Comment: [place] The eGFR is not validated f or use in drug dosing adjustments. Continue to use estimated creatinine clearance per dosing reference text. Please contact the Clinical Pharmacist for questions. eGFR >60 >60 mL/min [facility] [place] Comment: The eGFR is not validated for use in drug dosing adjustments. Continue to use estimated creatinine clearance per dosing reference text. Please contact the Clinical Pharmacist for questions. Specimen Blood Performing Organization Address [facility] one Number [facility] [address] [place] [address] * CBC AND DIFF (08/11/2019 3:14 AM TUBE FILLER) White Blood 11.9 (H) 4.5 - 11.0 [...] Absolute 1.10 (H) 0 - 0.80 K/UL [facility] Monocyte Count Absolute 0.20 0 - 0.45 K/UL [facility] Eosinophil Count Absolute 0.10 0 - 0.20 K/UL [facility] Basophil Count Specimen Blood Performing Organization Address [facility] one Number [facility] [address] [place] [address] * POC GLUCOSE (08/11/2019 2:14 AM TUBE FILLER) Glucose, POC 100 70 - 100 MG/DL [facility] Specimen Performing Organization Address [facility] Ph one Number [facility] [address] [place] [address] * POC GLUCOSE (08/10/2019 8:52 PM TUBE FILLER) Glucose, POC 99 70 - 100 MG/DL [facility] Specimen Performing Organization Address [facility] Ph one Number [facility] [address] [place] [address] * CHEST SINGLE VIEW (08/10/2019 2:56 PM TUBE FILLER) Specimen Impressions Performed At 1. Interval removal [...] Interface, Radiant Results - 08/11/2019 8:24 AM TUBE FILLER Procedure: CHEST SINGLE VIEW Clinical Indication: Chest [...] on 08/11/2019 7:40 AM. Performing Organization Address [facility] one Number [facility] RAD RESULTS * POC GLUCOSE (08/10/2019 2:45 PM TUBE FILLER) Glucose, POC 98 70 - 100 MG/DL MAIN LAB Specimen Performing Organization Address [facility] one Number MAIN LAB [address] [place] [address] * POC GLUCOSE (08/10/2019 8:37 AM TUBE FILLER) Glucose, POC 76 70 - 100 MG/DL MAIN LAB Specimen Performing Organization Address [facility] one Number MAIN LAB [address] [place] [address] * POC GLUCOSE (08/10/2019 4:38 AM TUBE FILLER) Glucose, POC 162 (H) 70 - 100 MG/DL MAIN LAB Specimen Performing Organization Address [facility] one Number MAIN LAB [address] [place] [address] * CHEST SINGLE VIEW (08/10/2019 4:28 AM TUBE FILLER) Specimen Impressions Performed At Stable chest radiograph [...] Interface, Radiant Results - 08/10/2019 9:39 AM TUBE FILLER TECHNIQUE: CHEST SINGLE VIEW CLINICAL INDICATION: Male, [...] on 08/10/2019 9:29 AM. Performing Organization Address City/[facility] Ph one Number KU RAD RESULTS * MAGNESIUM (08/10/2019 3:40 AM TUBE FILLER) Magnesium 1.9 1.6 - 2.6 mg/dL KU MAIN LAB Specimen Blood Performing Organization Address [facility] Ph one Number KU MAIN LAB [address] [place] [address] * BASIC METABOLIC PANEL (08/10/2019 3:40 AM TUBE FILLER) Sodium 145 137 - 147 MMOL/L KU [...] (L) >60 mL/min KU MAIN LAB Comment: [place] The eGFR is not validated f or use in drug dosing adjustments. Continue to use estimated creatinine clearance per dosing reference text. Please contact the Clinical Pharmacist for questions. eGFR >60 >60 mL/min KU MAIN LAB Swiss Comment: The eGFR is not validated for use in drug dosing adjustments. Continue to use estimated creatinine clearance per dosing reference text. Please contact the Clinical Pharmacist for questions. Specimen Blood Performing Organization Address City/[facility] Number MA[facility] LAB [address] [place] [address] * CBC AND DIFF (08/10/2019 3:40 AM TUBE FILLER) Pathologist [facility] [place] White Blood 7.0 4.5 - 11.0 K/UL MAIN LAB Cells RBC 3.19 (L) 4.4 [...] Basophil Count Specimen Blood Performing Organization Address [facility] Ph one Number KU MAIN LAB [address] [place] [address] * POC GLUCOSE (08/09/2019 9:47 PM TUBE FILLER) Pathologist [facility] [place] Glucose, POC 108 (H) 70 - 100 MG/DL KU MAIN LAB Specimen Performing Organization Address City/[facility] Ph one Number MAIN LAB [address] [place] [address] * BNP (B-TYPE NATRIURETIC PEPTI) (08/09/2019 4:00 PM TUBE FILLER) Pathologist [facility] [place] B Type 877.0 (H) 0 - 100 PG/ML MAIN LAB Natriuretic Peptide Specimen Blood Performing Organization Address City/[facility] one Number MAIN LAB [address] [place] [address] * POC GLUCOSE (08/09/2019 3:46 PM TUBE FILLER) Glucose, POC 113 (H) 70 - 100 MG/DL MAIN LAB Specimen Performing Organization Address [facility] one Number MAIN LAB [address] [place] [address] * POC GLUCOSE (08/09/2019 1:13 PM TUBE FILLER) Glucose, POC 109 (H) 70 - 100 MG/DL MAIN LAB Specimen Performing Organization Address [facility] one Number MAIN LAB [address] [place] [address] * MAGNESIUM (08/09/2019 1:10 PM TUBE FILLER) Magnesium 1.9 1.6 - 2.6 mg/dL MAIN LAB Specimen Blood Performing Organization Address [facility] one Number MAIN LAB [address] [place] [address] * POTASSIUM (08/09/2019 1:10 PM TUBE FILLER) Potassium 3.9 3.5 - 5.1 MMOL/L MAIN LAB Specimen Blood Performing Organization Address [facility] Ph one Number MAIN LAB [address] [place] [address] * MAGNESIUM (08/09/2019 8:05 AM TUBE FILLER) Magnesium 2.1 1.6 - 2.6 mg/dL MAIN LAB Specimen Blood Performing Organization Address [facility] Ph one Number MAIN LAB [address] [place] [address] * POTASSIUM (08/09/2019 8:05 AM TUBE FILLER) Potassium 4.0 3.5 - 5.1 MMOL/L MAIN LAB Specimen Blood Performing Organization Address [facility] Ph one Number MAIN LAB [address] [place] [address] * BLOOD GASES, ARTERIAL (08/09/2019 8:05 AM TUBE FILLER) pH-Arterial 7.39 7.35 - 7.45 KU MAIN [...] Blood, arterial - Blood Performing Organization Address [facility] one Number MAIN LAB [address] [place] [address] * POC GLUCOSE (08/09/2019 8:04 AM TUBE FILLER) Glucose, POC 75 70 - 100 MG/DL KU MAIN LAB Specimen Performing Organization Address [facility] one Number MAIN LAB [address] [place] [address] * CHEST SINGLE VIEW (08/09/2019 4:38 AM TUBE FILLER) Specimen Impressions Performed At 1. Slight progression [...] M.D. on 2018 10:25 AM. Dictated by Caemron Max MD on 08/09/2019 9:08 AM. Narrative [...] Interface, Radiant Results - 08/09/2019 10:29 AM TUBE FILLER CHEST SINGLE VIEW History: Male, 63 years [...] on 08/09/2019 9:08 AM. Performing Organization Address City/[facility] Ph one Number KU RAD RESULTS * MAGNESIUM (08/09/2019 3:40 AM TUBE FILLER) Magnesium 1.8 1.6 - 2.6 mg/dL KU MAIN LAB Specimen Blood Performing Organization Address [facility] Ph one Number KU MAIN LAB [address] [place] [address] * BASIC METABOLIC PANEL (08/09/2019 3:40 AM TUBE FILLER) Sodium 147 137 - 147 MMOL/L KU [...] (L) >60 mL/min KU MAIN LAB Comment: [place] The eGFR is not validated f or use in drug dosing adjustments. Continue to use estimated creatinine clearance per dosing reference text. Please contact the Clinical Pharmacist for questions. eGFR >60 >60 mL/min KU MAIN LAB Swiss Comment: The eGFR is not validated for use in drug dosing adjustments. Continue to use estimated creatinine clearance per dosing reference text. Please contact the Clinical Pharmacist for questions. Specimen Blood Performing Organization Address City/[facility]/Zipcode Ph one Number KU MAIN LAB [address] [place] [address] * CBC AND DIFF (08/09/2019 3:40 AM TUBE FILLER) Pathologist [facility] [place] White Blood 7.4 4.5 - 11.0 K/UL [...] Basophil Count Specimen Blood Performing Organization Address City/[facility]/Zipcode Ph one Number KU MAIN LAB [address] [place] [address] * POC GLUCOSE (08/08/2019 8:51 PM TUBE FILLER) Pathologist [facility] Glucose, POC 86 70 - 100 MG/DL KU MAIN LAB Specimen Performing Organization Address City/[facility]/Zipcode Ph one Number KU MAIN LAB [address] [place] [address] * POC GLUCOSE (08/08/2019 7:00 PM TUBE FILLER) Pathologist [facility] [place] Glucose, POC 87 70 - 100 MG/DL KU MAIN LAB Specimen Performing Organization Address City/[facility] one Number MAIN LAB [address] [place] [address] * BLOOD GASES, ARTERIAL (08/08/2019 2:05 PM TUBE FILLER) pH-Arterial 7.36 7.35 - 7.45 MAIN LAB pCO2-Arterial 56 (H) 35 - 45 MMHG MAIN LAB pO2-Arterial 239 (H) 80 - 100 MMHG KU MAIN LAB Base 5.4 MMOL/L MAIN LAB Excess-Arterial O2 Sat-Arterial 99.5 (H) 95 - 99 % MAIN LAB Bicarbonate-ART 29.4 (H) 21 - 28 MMOL/L MAIN LAB -Jez Specimen Blood, arterial - Blood Performing Organization Address [facility] Ph one Number MAIN LAB [address] [place] [address] * POC IONIZED CALCIUM (08/08/2019 1:06 PM TUBE FILLER) Ionized 1.26 1.0 - 1.3 MMOL/L MAIN LAB Calcium-POC Specimen Performing Organization Address [facility] Ph one Number MAIN LAB [address] [place] [address] * POC SODIUM (08/08/2019 1:06 PM TUBE FILLER) Pathologist [facility] [place] Sodium-POC 142 137 - 147 MMOL/L MAIN LAB Specimen Performing Organization Address [facility] Ph one Number MAIN LAB [address] [place] [address] * POC POTASSIUM (08/08/2019 1:06 PM TUBE FILLER) [facility] Potassium-POC 3.7 3.5 - 5.1 MMOL/L MAIN LAB Specimen Performing Organization Address [facility] one Number MAIN LAB [address] [place] [address] * POC HEMATOCRIT (08/08/2019 1:06 PM TUBE FILLER) Hemoglobin POC 9.5 (L) 13.5 - 16.5 GM/DL MAIN LAB Hematocrit POC 28.0 (L) 40 - 50 % MAIN LAB Specimen Performing Organization Address City/[facility] Ph one Number MAIN LAB [address] [place] [address] * POC BLOOD GAS ARTERIAL (08/08/2019 1:06 PM TUBE FILLER) PH-ART-POC 7.39 7.35 - 7.45 MAIN LAB [id number] 60 (H) 35 - 45 MMHG KU MAIN LAB PO2-ART-POC 86 80 - 100 MMHG KU MAIN LAB Base Ex-ART-POC 12.0 MMOL/L MAIN LAB O2 Sat-ART-POC 96.0 95 - 99 % MAIN LAB Bicarbonate-ART 36.9 (H) 21 - 28 MMOL/L MAIN LAB -POC Specimen Performing Organization Address [facility] one Number MAIN LAB [address] [place] [address] * POC GLUCOSE (08/08/2019 1:04 PM TUBE FILLER) Glucose, POC 91 70 - 100 MG/DL KU MAIN LAB Specimen Performing Organization Address [facility] one Number MAIN LAB [address] [place] [address] * BLOOD GASES, ARTERIAL (08/08/2019 11:00 AM TUBE FILLER) pH-Arterial 7.40 7.35 - 7.45 MAIN LAB pCO2-Arterial 55 (H) 35 - 45 MMHG MAIN LAB pO2-Arterial 86 80 - 100 MMHG MAIN LAB Base 7.8 MMOL/L MAIN LAB Excess-Arterial O2 Sat-Arterial 97.4 95 - 99 % MAIN LAB Bicarbonate-ART 31.6 (H) 21 - 28 MMOL/L MAIN LAB -Jez Specimen Blood, arterial - Blood Performing Organization Address [facility] one Number MAIN LAB [address] [place] [address] * CHEST SINGLE VIEW (08/08/2019 7:44 AM TUBE FILLER) Specimen Impressions Performed At 1. Support devices as above. KU RAD RESULTS 2. Slight improvement in patchy left gr eater than right mid and lower lung zone opacities suspicious for infection and/ or aspiration superimposed on pulmonary edema. 3. Small bilateral pleural effusions wi thout definite pneumothorax. Finalized by Jose Miguel Angela M.D. o kimo 08/08/2019 1:12 PM. Dictated by Jose Miguel [...] Interface, Radiant Results - 08/08/2019 1:15 PM TUBE FILLER CHEST SINGLE VIEW INDICATION: empyema, chest tube [...] on 08/08/2019 1:10 PM. Performing Organization Address [facility] one Number KU RAD RESULTS * POC GLUCOSE (08/08/2019 7:27 AM TUBE FILLER) Glucose, POC 85 70 - 100 MG/DL KU MAIN LAB Specimen Performing Organization Address [facility] one Number KU MAIN LAB [address] [place] [address] * BLOOD GASES, ARTERIAL (08/08/2019 4:00 AM TUBE FILLER) pH-Arterial 7.47 (H) 7.35 - 7.45 KU MAIN LAB pCO2-Arterial 44 35 - 45 MMHG KU MAIN LAB pO2-Arterial 81 80 - 100 MMHG KU MAIN LAB Base 7.5 MMOL/L KU MAIN LAB Excess-Arterial O2 Sat-Arterial 96.2 95 - 99 % KU MAIN LAB Bicarbonate-ART 31.2 (H) 21 - 28 MMOL/L KU MAIN LAB -Jez Specimen Blood, arterial - Blood Performing Organization Address [facility] one Number MAIN LAB [address] [place] [address] * PTT (APTT) (08/08/2019 4:00 AM TUBE FILLER) APTT 26.6 24.0 - 36.5 SEC MAIN LAB Specimen Blood Performing Organization Address [facility] one Number MAIN LAB [address] [place] [address] * MAGNESIUM (08/08/2019 4:00 AM TUBE FILLER) Magnesium 2.0 1.6 - 2.6 mg/dL MAIN LAB Specimen Blood Performing Organization Address [facility] one Number MAIN LAB [address] [place] [address] * BASIC METABOLIC PANEL (08/08/2019 4:00 AM TUBE FILLER) Sodium 145 137 - 147 MMOL/L MAIN LAB Potassium 4.3 3.5 - 5.1 MMOL/L MAIN LAB Chloride 101 98 - 110 MMOL/L MAIN LAB CO2 31 (H) 21 - 30 MMOL/L KU MAIN LAB Anion Gap 13 (H) 3 - 12 KU MAIN LAB Glucose 90 70 - 100 MG/DL KU MAIN LAB Blood Urea 38 (H) 7 - 25 MG/DL MAIN LAB Nitrogen Creatinine 1.38 (H) 0.4 - 1.24 MG/DL MAIN LAB Calcium 8.9 8.5 - 10.6 MG/DL MAIN LAB eGFR Non 52 (L) >60 mL/min MAIN LAB Comment: [place] The eGFR is not validated f or use in drug dosing adjustments. Continue to use estimated creatinine clearance per dosing reference text. Please contact the Clinical Pharmacist for questions. eGFR >60 >60 mL/min MAIN LAB Swiss Comment: The eGFR is not validated for use in drug dosing adjustments. Continue to use estimated creatinine clearance per dosing reference text. Please contact the Clinical Pharmacist for questions. Specimen Blood Performing Organization Address [facility] one Number MAIN LAB [address] [place] [address] * CBC AND DIFF (08/08/2019 4:00 AM TUBE FILLER) White Blood 8.5 4.5 - 11.0 K/UL [...] Basophil Count Specimen Blood Performing Organization Address [facility] Ph one Number MAIN LAB [address] [place] [address] * POC GLUCOSE (08/07/2019 9:51 PM TUBE FILLER) [facility] Glucose, POC 98 70 - 100 MG/DL KU MAIN LAB Specimen Performing Organization Address [facility] Ph one Number KU MAIN LAB [address] [place] [address] * BLOOD GASES, ARTERIAL (08/07/2019 6:34 PM TUBE FILLER) pH-Arterial 7.44 7.35 - 7.45 KU MAIN LAB pCO2-Arterial 50 (H) 35 - 45 MMHG KU MAIN LAB pO2-Arterial 85 80 - 100 MMHG KU MAIN LAB Base 8.6 MMOL/L KU MAIN LAB Excess-Arterial O2 Sat-Arterial 97.5 95 - 99 % KU MAIN LAB Bicarbonate-ART 32.4 (H) 21 - 28 MMOL/L KU MAIN LAB -Jez Specimen Blood, arterial - Blood Performing Organization Address [facility] Ph one Number MAIN LAB [address] [place] [address] * MAGNESIUM (08/07/2019 6:34 PM TUBE FILLER) Magnesium 2.0 1.6 - 2.6 mg/dL MAIN LAB Specimen Blood Performing Organization Address [facility] Ph one Number MAIN LAB [address] [place] [address] * CULTURE-BLOOD W/SENSITIVITY (08/07/2019 6:34 PM TUBE FILLER) Battery Name BLOOD CULTURE MAIN LAB Specimen BLOOD MAIN LAB Description RIGHT RADIAL ARTERIAL LINE Special NONE MAIN LAB Requests Culture NO GROWTH 5 DAYS MAIN LAB Report Status FINAL MAIN LAB 08/13/2019 Specimen Blood Performing Organization Address [facility] one Number MAIN LAB [address] [place] [address] * LIPID PROFILE (08/07/2019 6:34 PM TUBE FILLER) Cholesterol 186 <200 MG/DL MAIN LAB Triglycerides 162 (H) <150 MG/DL MAIN LAB HDL 49 >40 MG/DL MAIN LAB LDL 69 <100 mg/dL KU MAIN LAB VLDL 32 MG/DL KU MAIN LAB Non HDL 137 MG/DL MAIN LAB Cholesterol Comment: Calculated non-HDL Cholesterol (non-HDL-C) indirectly measures LDL-C, Lp(a), IDL-C, and VLDL-C. It is a surrogate marker for Apoprotein B. Goal should be less than 130 mg/dL. Specimen Blood Performing Organization Address [facility] Ph one Number MAIN LAB [address] [place] [address] * HEMOGLOBIN A1C (08/07/2019 6:34 PM TUBE FILLER) Hemoglobin A1C 5.9 4.0 - 6.0 % MAIN LAB Comment: The ADA recommends that most patients with type 1 and type 2 diabetes maintain an A1c level <7%. Specimen Blood Performing Organization Address [facility] Ph one Number MAIN LAB [address] [place] [address] * COMPREHENSIVE METABOLIC PANEL (08/07/2019 6:34 PM TUBE FILLER) Sodium 146 137 - 147 MMOL/L KU [...] (L) >60 mL/min KU MAIN LAB Comment: [place] The eGFR is not validated f or use in drug dosing adjustments. Continue to use estimated creatinine clearance per dosing reference text. Please contact the Clinical Pharmacist for questions. eGFR >60 >60 mL/min MAIN LAB Swiss Comment: The eGFR is not validated for use in drug dosing adjustments. Continue to use estimated creatinine clearance per dosing reference text. Please contact the Clinical Pharmacist for questions. Specimen Blood Performing Organization Address [facility] one Number MAIN LAB [address] [place] [address] * PTT (APTT) (08/07/2019 6:34 PM TUBE FILLER) APTT 27.7 24.0 - 36.5 SEC MAIN LAB Specimen Blood Performing Organization Address [facility] one Number MAIN LAB [address] [place] [address] * PROTIME INR (PT) (08/07/2019 6:34 PM TUBE FILLER) INR 1.0 0.8 - 1.2 MAIN LAB Specimen Blood Performing Organization Address [facility]/Zipcode Ph one Number MAIN LAB [address] [place] [address] * CBC AND DIFF (08/07/2019 6:34 PM TUBE FILLER) Pathologist [facility] White Blood 7.7 4.5 - 11.0 K/UL MAIN LAB Cells RBC 3.22 (L) 4.4 - 5.5 M/UL KU MAIN LAB Hemoglobin 9.4 (L) 13.5 - 16.5 GM/DL MAIN LAB Hematocrit 28.3 (L) 40 - [...] Basophil Count Specimen Blood Performing Organization Address City/[facility] one Number MAIN LAB [address] [place] [address] * CULTURE-BLOOD W/SENSITIVITY (08/07/2019 6:05 PM TUBE FILLER) Battery Name BLOOD CULTURE KU MAIN LAB Specimen BLOOD KU MAIN LAB Description LEFT WRIST Special NONE KU MAIN LAB Requests Culture NO GROWTH 5 DAYS KU MAIN LAB Report Status FINAL KU MAIN LAB 08/13/2019 Specimen Blood Performing Organization Address City/[facility] one Number MAIN LAB [address] [place] [address] * CULTURE-URINE W/SENSITIVITY (08/07/2019 5:59 PM TUBE FILLER) Battery Name URINE CULTURE MAIN LAB Specimen URINE [facility] LAB Description Special NONE [facility] LAB Requests Culture NO GROWTH [facility] LAB Report Status FINAL [facility] LAB 08/08/2019 Specimen Urine - Urine Performing Organization Address [facility] Ph one Number [facility] LAB [address] [place] [address] * CYTOLOGY FLUIDS (08/07/2019 5:58 PM TUBE FILLER) Cytology [facility] [email or web address] Department of Pathology and Laboratory Medicine [address] [place] [address] Surgical Pathology Office: [phone] CYTOLOGY REPORT NAME: KEMAR LOPEZ CYTOLOGY #: [id number] MR #: [id number] ALT ID #: BILLING #: [id number] LOCATION: [facility] DATE OF PROCEDURE: 08/07/2019 AGE: 63 SEX: M DATE RECEIVED: 08/08/2019 : 1955 TIME RECEIVED: 09:43 PHYSICIAN: PORTILLO FIGUEROA APRN-TIRE MOLD TESTER, MSN DATE OF REPORT: 08/09/2019 COPY TO: [...] MD Resident Specimen Pleural,Right Performing Organization Address City/[facility] Ph one Number MAIN LAB [address] [place] [address] * GRAM STAIN (08/07/2019 5:44 PM TUBE FILLER) Battery Name GRAM STAIN MAIN LAB Specimen PLEURAL FLUID MAIN LAB Description Special NONE KU MAIN LAB Requests Gram Stain FEW KU MAIN LAB NEUTROPHILS NO ORGANISMS SEEN Report Status FINAL MAIN LAB 08/08/2019 Specimen Pleural Fluid Performing Organization Address [facility] Ph one Number MAIN LAB [address] [place] [address] * CULTURE-WOUND/TISSUE/FLUID(AEROBIC ONLY)W/SENSITIVITY (08/07/2019 5:44 PM TUBE FILLER) Battery Name ROUTINE CULTURE KU MAIN LAB Specimen PLEURAL FLUID KU MAIN LAB Description Special NONE KU MAIN LAB Requests Direct Gram FEW MAIN LAB Stain NEUTROPHILS NO ORGANISMS SEEN Culture NO GROWTH 5 DAYS MAIN LAB Report Status FINAL MAIN LAB 08/12/2019 Specimen Pleural Fluid Performing Organization Address [facility] Ph one Number MAIN LAB [address] [place] [address] * PLEURAL FLUID TOTAL PROTEIN (08/07/2019 5:44 PM TUBE FILLER) Pleural Fluid 1.8 (H)Comment: Serum to <1.1 g/dL KU MA IN LAB Total Protein pleural fluid protein gradi ent >3.1 g/dL is suggestive of an exudate Specimen Pleural Fluid Performing Organization Address [facility] Ph one Number MAIN LAB [address] [place] [address] * PLEURAL FLUID PH (08/07/2019 5:44 PM TUBE FILLER) Pleural Fluid 7.87 (H) 7.60 - 7.66 MAIN LAB Ph Specimen Pleural Fluid Performing Organization Address [facility] Ph one Number MAIN LAB [address] [place] [address] * PLEURAL FLUID LACTATE DEHYDROGENASE (08/07/2019 5:44 PM TUBE FILLER) Pleural Fluid 98Comment: Higher levels 67 - 140 U/L KU MA IN LAB Lactate suggestive of exudate Dehydrogenase Specimen Pleural Fluid Performing Organization Address [facility] one Number MAIN LAB [address] [place] [address] * PLEURAL FLUID GLUCOSE (08/07/2019 5:44 PM TUBE FILLER) Pleural Fluid 120 (H) 70 - 100 mg/dL KU MAIN LAB Glucose Comment: Glucose <60 mg/dL associated with parapneumonic effusion, tuberculosis, malignancy, empyema, and rheumatoid disease Specimen Pleural Fluid Performing Organization Address City/[facility] one Number KU MAIN LAB [address] [place] [address] * PLEURAL FLUID AMYLASE (08/07/2019 5:44 PM TUBE FILLER) Pleural Fluid 125 U/L KU MAIN LAB Amylase Comment: Elevated pleural fluid value is a level higher than the upper limit of normal for plasma. Specimen Pleural Fluid Performing Organization Address [facility] one Number KU MAIN LAB [address] [place] [address] * CHEST SINGLE VIEW (08/07/2019 5:30 PM TUBE FILLER) Specimen Impressions Performed At 1. Lines and [...] INDICATION: INTUBATION COMPARISON STUDY: Chest radiograph Dece mber 2017, outside CT chest August 07, 2019. FINDINGS: [...] Interface, Radiant Results - 08/08/2019 5:54 PM TUBE FILLER CHEST SINGLE VIEW INDICATION: INTUBATION COMPARISON STUDY: [...] on 08/08/2019 8:06 AM. Performing Organization Address City/State/Zipcode Ph one Number KU RAD RESULTS * CULTURE-RESP,LOWER W/SENSITIVITY (08/07/2019 5:21 PM TUBE FILLER) Battery Name LOWER RESP CULTURE KU MAIN LAB Specimen BRONCHIAL ALVEOLAR LAVAGE, RML KU MARITA N LAB Description Special NONE MAIN LAB Requests Direct Gram MODERATE MAIN LAB Stain NEUTROPHILS NO ORGANISMS SEEN Culture NO GROWTH 2 DAYS MAIN LAB Report Status FINAL MAIN LAB 08/10/2019 Specimen Bronchial Alveolar Lavage,RML Performing Organization Address [facility] one Number MAIN LAB [address] [place] [address] * GRAM STAIN (08/07/2019 5:21 PM TUBE FILLER) Battery Name GRAM STAIN MAIN LAB Specimen BRONCHIAL ALVEOLAR LAVAGE, RML ONEYDA AGUILLONI N LAB Description Special NONE MAIN LAB Requests Gram Stain MODERATE MAIN LAB NEUTROPHILS NO ORGANISMS SEEN Report Status FINAL MAIN LAB 08/07/2019 Specimen Bronch Lavage - Bronchial Alveolar Lavage,RM Performing Organization Address [facility] Ph one Number MAIN LAB [id number] [place] [address] * TELEMETRY STRIPS-SCAN (08/07/2019 12:00 AM TUBE FILLER) Narrative Performed At This result has an attachment that is n ot available. Ordered by an unspecified provider. documented in this encounter Visit Diagnoses Diagnosis Empyema, right (HCC) Empyema without mention of fistula documented in this encounter Administered Medications Action Date Dose Rate Site Medication Order MAR Action 08/14/2019 7:57 AM TUBE FILLER 1,000 mg acetaminophen (TYLENOL) tablet 1,000 mg Given 1,000 mg, Oral, EVERY 6 HOURS, First dose (after last modification) on Mon08/09/19 at 0745, Until Discontinued, TOTAL ACETAMINOPHEN DOSE NOT TO EXCEED 4GM DAILY, 1,000 mg Given 08/13/2019 10:45 AM TUBE FILLER 1,000 mg Given 08/13/2019 2:12 AM TUBE FILLER 08/14/2019 8:49 AM TUBE FILLER 2.5 mg albuterol 0.5% (PROVENTIL) nebulizer Given solution 2.5 mg 2.5 mg, Inhalation, RT EVERY 4 HOURS WHILE AWAKE AND PRN, First dose (after last modification) on Mon08/11/19 at 1600, Until Discontinued, ADMINISTERED BY RT, 2.5 mg Given 08/13/2019 7:59 PM TUBE FILLER 2.5 mg Given 08/13/2019 4:39 PM TUBE FILLER 08/14/2019 8:01 AM TUBE FILLER 200 mg amiodarone (CORDARONE) tablet 200 mg Given 200 mg, Oral, DAILY, First dose on Mon08/09/19 at 1130, Until Discontinued 200 mg Given 08/13/2019 10:45 AM TUBE FILLER 200 mg Given 08/12/2019 8:41 AM TUBE FILLER 08/14/2019 8:01 AM TUBE FILLER 5 mg apixaban (ELIQUIS) tablet 5 mg [...] Medication., 5 mg Given 08/13/2019 8:29 PM TUBE FILLER 5 mg Given 08/13/2019 10:45 AM TUBE FILLER 08/14/2019 8:01 AM TUBE FILLER 81 mg aspirin EC tablet 81 mg Given 81 mg, Oral, DAILY, First dose on Mon08/08/19 at 0900, Until Discontinued 81 mg Given 08/13/2019 10:45 AM TUBE FILLER 81 mg Given 08/12/2019 8:40 AM TUBE FILLER 08/14/2019 8:01 AM TUBE FILLER 10 mg atorvastatin (LIPITOR) tablet 10 mg Given 10 mg, Oral, DAILY, First dose on Mon08/08/19 at 0900, Until Discontinued 10 mg Given 08/13/2019 10:45 AM TUBE FILLER 10 mg Given 08/12/2019 8:40 AM TUBE FILLER 08/14/2019 8:01 AM TUBE FILLER 2 mg bumetanide (BUMEX) tablet 2 mg Given 2 mg, Oral, TWICE DAILY, First dose on Mon08/12/19 at 1700, Until Discontinued 2 mg Given 08/13/2019 5:27 PM TUBE FILLER 2 mg Given 08/13/2019 10:44 AM TUBE FILLER 08/14/2019 8:01 AM TUBE FILLER 10 mg busPIRone (BUSPAR) tablet 10 mg Given 10 mg, Oral, TWICE DAILY, First dose on Mon08/13/19 at 1145, Until Discontinue d 10 mg Given 08/13/2019 8:29 PM TUBE FILLER 10 mg Given 08/13/2019 12:13 PM TUBE FILLER 08/14/2019 8:01 AM TUBE FILLER 20 mg escitalopram oxalate (LEXAPRO) tablet 20 Given mg 20 mg, Oral, DAILY, First dose on Mon08/09/19 at 1115, Until Discontinued 20 mg Given 08/13/2019 10:44 AM TUBE FILLER 20 mg Given 08/12/2019 8:41 AM TUBE FILLER 08/12/2019 12:30 PM TUBE FILLER 50 mcg fentaNYL citrate PF (SUBLIMAZE) Given injection 25-50 mcg 25-50 mcg, Intravenous, EVERY 1 HOUR PRN, Starting Mon08/07/19 at 2310, Unti l Mon08/14/19 at 1342, Pain Injectable 50 mcg Given 08/12/2019 10:40 AM TUBE FILLER 50 mcg Given 08/12/2019 8:53 AM TUBE FILLER 08/14/2019 8:53 AM TUBE FILLER 1 puff fluticasone-salmeterol (ADVAIR DISKUS) Given 250-50 mcg/dose inhalation disk 1 puff 1 puff, Inhalation, RT TWICE DAILY, First dose on Mon08/09/19 at 1000, Unti l Discontinued, When administered by RT, will be per RT policy., 1 puff Given 08/13/2019 7:59 PM TUBE FILLER 1 puff Given 08/13/2019 8:30 AM TUBE FILLER 08/14/2019 8:48 AM TUBE FILLER 0.5 mg ipratropium bromide (ATROVENT) 0.02 % Given nebulizer solution 0.5 mg 0.5 mg, Inhalation, RT EVERY 4 HOURS WHILE AWAKE AND PRN, First dose (after last modification) on Mon08/11/19 at 1600, Until Discontinued, ADMINISTERED BY RT, 0.5 mg Given 08/13/2019 7:59 PM TUBE FILLER 0.5 mg Given 08/13/2019 4:39 PM TUBE FILLER 08/14/2019 8:01 AM TUBE FILLER 12.5 mg metoprolol XL (TOPROL XL) tablet 12.5 mg Given 12.5 mg, Oral, DAILY, First dose on Mon08/14/19 at 0900, Until Discontinued, Hold for heart rate < 60 bpm or systoli c BP < 100 tablets may be cut in half, DO NOT CRUSH or CHEW, 08/14/2019 7:57 AM TUBE FILLER 5 mg oxyCODONE (ROXICODONE) tablet 5-10 mg Given 5-10 mg, Oral, EVERY 4 HOURS PRN, Starting Bonny 08/08/19 at 1426, Until Mon08/14/19 at 1342, Pain PO 5 mg Given 08/13/2019 8:29 PM TUBE FILLER 5 mg Given 08/13/2019 1:27 PM TUBE FILLER 08/13/2019 8:29 PM TUBE FILLER [address] (PROTONIX) tablet 40 mg Given 40 mg, Oral, DAILY, First dose on Mon08/09/19 at 2100, Until Discontinued, Do not crush or chew tablet., 40 mg Given 08/12/2019 8:58 PM TUBE FILLER 40 mg Given 08/11/2019 8:55 PM TUBE FILLER 08/14/2019 8:00 AM TUBE FILLER 150 mg pregabalin (LYRICA) capsule 150 mg Given 150 mg, Oral, TWICE DAILY, First dose o n Mon08/08/19 at 0900, Until Discontinued 150 mg Given 08/13/2019 8:29 PM TUBE FILLER 150 mg Given 08/13/2019 10:45 AM TUBE FILLER 08/14/2019 8:00 AM TUBE FILLER 500 mcg roflumilast (DALIRESP) tablet 500 mcg Given 500 mcg, Oral, DAILY, First dose on Mon08/09/19 at 1000, Until Discontinued 500 mcg Given 08/13/2019 10:44 AM TUBE FILLER 500 mcg Given 08/12/2019 8:40 AM TUBE FILLER 08/14/2019 8:01 AM TUBE FILLER 20 mg sildenafil (REVATIO) tablet 20 mg Given 20 mg, Oral, THREE TIMES DAILY, First dose on Mon08/08/19 at 1530, Until Discontinued 20 mg Given 08/13/2019 8:29 PM TUBE FILLER 20 mg Given 08/13/2019 3:09 PM TUBE FILLER 08/07/2019 5:20 PM TUBE FILLER 500 mL sodium chloride 0.9% irrigation bottle Given INTRA-PROCEDURE MED, Starting Mon08/07/19 at 1720, Until Mon08/13/19 at 0632, Intra-op documented in this encounter
--- OUTSIDE RECORDS SUMMARY | 2019-08-28 23:18 | XMS REPORT | Encounter Summary ---
Author Author [facility] Organization [facility] Address Unknown Phone Unavailable Care Team Providers Care Security Systems Manager Name Role Phone Ricky Cleveland PCP Encounter Details Care Team Description Date Type Department 07/15/2019 [facility] [address] [address] Social History Date Tobacco Use Types [...] impairment: Yes documented as of this encounter Medications at Time of Discharge Start Date End Date Medication Sig Dispensed Refills albuterol 0.083% Inhale 3 mL 0 (PROVENTIL; VENTOLIN) 2.5 solution by mg /3 mL (0.083 %) nebulizer as nebulizer solution directed every 4 hours as needed. atorvastatin (LIPITOR) 10 Take 10 mg by 0 mg tablet mouth daily. cholecalciferol (VITAMIN Take 1,000 0 D-3) 1,000 units tablet Units by mouth daily. cyanocobalamin (VITAMIN Take 500 mcg 0 B-12) 500 mcg tablet by mouth daily. lszkslqb-dhd-VN-lycopen-l Take 1 tablet 0 utein (CENTRUM SILVER by mouth ULTRA MEN'S) 300-600-300 daily. mcg tab pregabalin (LYRICA) 150 Take 150 mg 0 mg capsule by mouth twice daily. 08/16/2018 senna/docusate Take two 60 tablet 0 (SENOKOT-S) 8.6/50 mg tablets by tablet mouth daily. 08/16/2018 sodium chloride (SEA Apply one 30 mL 2 MIST) 0.65 % nasal spray spray to two sprays to each nostril as directed as Needed. vitamin A 10,000 unit Take 10,000 0 capsule Units by mouth daily. 08/14/2019 amLODIPine (NORVASC) 5 mg Take 5 mg by 0 tablet mouth daily. 08/16/2018 08/09/2019 bacitracin 500 unit/g Apply to face 120 g 1 topical ointment BID and PRN. 08/14/2019 budesonide/formoterol Inhale 2 0 (SYMBICORT HFA) 160/4.5 puffs by mcg inhalation mouth into the lungs twice daily. 08/09/[address] (CYMBALTA) Take 60 mg by 0 60 mg capsule mouth twice daily. 08/14/2019 furosemide (LASIX) 40 mg Take 40 mg by 0 tablet mouth twice daily. 08/14/2019 HYDROcodone/acetaminophen Take 1 tablet 0 (NORCO) 5/325 mg tablet by mouth every 4 hours as needed for Pain 08/14/2019 lisinopril (PRINIVIL; Take 10 mg by 0 ZESTRIL) 10 mg tablet mouth daily. 08/16/2018 08/09/2019 mupirocin (BACTROBAN) 2 % Apply 30 g 1 topical ointment topically to affected area twice daily. 08/16/2018 08/09/2019 nystatin (MYCOSTATIN) Apply to skin 30 g 3 100,000 unit/g topical folds on cream chest/groin BID 08/09/2019 ranitidine(+) (ZANTAC) Take 150 mg 0 150 mg tablet by mouth twice daily. 08/09/2019 traZODone (DESYREL) 100 Take 100 mg 0 mg tablet by mouth at bedtime daily. documented as of this encounter Plan of Treatment Not on filedocumented as of this encounter Goals Goal Patient Associated Recent Progress Patient-Stat Aut hor Goal Type Problems ed? Improve quality of life [facility] No Myriam Miles, RN documented as of this encounter Procedures Comments Procedure Name Priority Date/Time Associated Diag nosis CT CHEST EXTERNAL IMAGING Routine 07/15/2019 12:00 AM PAINT TINTER documented in this encounter Results * CT CHEST EXTERNAL IMAGING (07/15/2019 12:00 AM PAINT TINTER) Specimen Narrative Performed At This order has been auto finalized and does not contain a result. documented in this encounter Visit Diagnoses Not on filedocumented in this encounter
--- OUTSIDE RECORDS SUMMARY | 2019-08-28 23:18 | XMS REPORT | Encounter Summary ---
Author Author [facility] Organization [facility] Address Unknown Phone Unavailable Care Team Providers Care Destaticizer Feeder Name Role Phone Ricky Cleveland PCP Encounter Details Care Team Description Date Type Department 08/07/2019 [facility] [address] [address] Social History Date Tobacco Use [...] mg extended release by mouth tablet daily. dpqxpqaq-msu-IK-lycopen-l Take 1 tablet 0 utein (CENTRUM SILVER [...] inhalation mouth into the lungs twice daily. 08/14/2019 08/14/2019 bumetanide (BUMEX) 2 mg Take one 0 tablet tablet by mouth twice daily. 08/09/[address] (CYMBALTA) Take [...] Type Problems ed? Improve quality of life [facility] No Myriam Miles RN documented as of this encounter Procedures Comments Procedure Name Priority Date/Time Associated Diag nosis CT CHEST EXTERNAL IMAGING Routine 08/07/2019 12:19 PM CHIROPRACTIC PRACTICE MANAGER documented in this encounter Results * CT CHEST EXTERNAL IMAGING (08/07/2019 12:19 PM CHIROPRACTIC PRACTICE MANAGER) Specimen Narrative Performed At This order has been auto finalized and does not contain a result. documented in this encounter Visit Diagnoses Not on filedocumented in this encounter
--- OUTSIDE RECORDS SUMMARY | 2019-08-28 23:18 | XMS REPORT | Encounter Summary ---
Author Author [facility] Organization [facility] Address Unknown Phone Unavailable Care Team Providers Care Career Development Consultant Name Role Phone Ricky Cleveland PCP Encounter Details Care Team Description Date Type Department 06/26/2019 [facility] [address] [address] Social History Date Tobacco Use [...] B-12) 500 mcg tablet by mouth daily. [id number]-nqa-DR-lycopen-l Take 1 tablet 0 utein (CENTRUM SILVER [...] Type Problems ed? Improve quality of life [facility] No Myriam Miles, RN documented as of this encounter Procedures Comments Procedure Name Priority Date/Time Associated Diag nosis CT ABD/PEL EXTERNAL Routine 06/26/2019 IMAGING 12:00 AM CDT documented in this encounter Results * CT ABD/PEL EXTERNAL IMAGING (06/26/2019 12:00 AM CDT) Specimen Narrative Performed At This order has been auto finalized and does not contain a result. documented in this encounter Visit Diagnoses Not on filedocumented in this encounter
--- OUTSIDE RECORDS SUMMARY | 2019-08-28 23:18 | XMS REPORT | Encounter Summary ---
Author Author [facility] Organization [facility] Address Unknown Phone Unavailable Care Team Providers Care Ship Mate Name Role Phone Ricky Cleveland PCP Encounter Details Care Team Description Date Type Department 07/01/2019 [facility] [address] [address] Social History Date Tobacco Use [...] B-12) 500 mcg tablet by mouth daily. [id number]-fws-PE-lycopen-l Take 1 tablet 0 utein (CENTRUM SILVER [...] Type Problems ed? Improve quality of life [facility] No Myriam Miles, RN documented as of this encounter Procedures Comments Procedure Name Priority Date/Time Associated Diag nosis CT CHEST EXTERNAL IMAGING Routine 07/01/2019 12:00 AM CDT documented in this encounter Results * CT CHEST EXTERNAL IMAGING (07/01/2019 12:00 AM CDT) Specimen Narrative Performed At This order has been auto finalized and does not contain a result. documented in this encounter Visit Diagnoses Not on filedocumented in this encounter
--- OUTSIDE RECORDS SUMMARY | 2019-08-28 23:22 | XMS REPORT | Continuity of Care Document ---
Author Organization Unknown Address Unknown Phone Unavailable Allergies Active Description Code Type Severity Reaction Onset Reported/Identified Relationship to Patient Clinical Status Yes cephalexin [id number] Drug Allerg y Unknown N/A 04/10/2016 Yes cephalexin [id number] Drug Allerg y Unknown unknown- tolera 06/29/2019 Medications There is no data. Problems Date Dx Coded Attending Type Code Diagnosis Diagnosed By 01/19/2010 Ot 272.4 01/19/2010 Ot 278.00 01/19/2010 Ot 305.1 01/19/2010 Ot 311 01/19/2010 Ot 327.23 01/19/2010 Ot 401.9 01/19/2010 Ot 414.01 01/19/2010 Ot 416.8 01/19/2010 Ot 428.0 01/19/2010 Ot 428.33 01/19/2010 Ot 491.22 01/19/2010 Ot 518.81 01/19/2010 Ot 724.5 01/19/2010 Ot V85.4 05/24/2010 Ot 300.9 05/24/2010 Ot 305.1 05/24/2010 Ot 401.9 05/24/2010 Ot 491.22 05/24/2010 Ot 493.20 05/24/2010 Ot 518.81 05/24/2010 Ot 724.2 02/03/2011 Ot 272.4 HYPE RLIPIDEMIA NEC/NOS 02/03/2011 Ot 305.1 [employer] USE DISORDER 02/03/2011 Ot 401.9 HYPE RTENSION NOS 02/03/2011 Ot 491.21 OBS TR CHRONIC BRONCHITIS, W (ACUTE) EXAC 02/03/2011 Ot 724.2 LUMBAGO 02/03/2011 Ot 784.0 HEAD ACHE 02/03/2011 Ot V11.9 HX-M ENTAL DISORDER NOS 07/14/2011 Ot 272.4 HYPE RLIPIDEMIA NEC/NOS 07/14/2011 Ot 278.01 MOR BID OBESITY 07/14/2011 Ot 278.03 OBE SITY HYPOVENTILATION SYNDROME 07/14/2011 Ot 300.4 DYST HYMIC DISORDER 07/14/2011 Ot 414.01 COR ONARY ATHEROSCLEROSIS OF [place] CORON 07/14/2011 Ot 416.8 CHR PULMON HEART DIS NEC 07/14/2011 Ot 491.21 OBS TR CHRONIC BRONCHITIS, W (ACUTE) EXAC 07/14/2011 Ot 518.83 CHR ONIC RESPIRATORY FAILURE 07/14/2011 Ot 724.2 LUMBAGO 07/14/2011 Ot 780.57 UNS PECIFIED SLEEP APNEA 07/14/2011 Ot 790.29 OTH ER ABNORMAL GLUCOSE 07/14/2011 Ot V15.82 HIS TORY OF TOBACCO USE 07/14/2011 Ot V85.42 BOD Y MASS INDEX 45.0-49.9, ADULT 08/22/2011 Ot 272.4 HYPE RLIPIDEMIA NEC/NOS 08/22/2011 Ot 278.01 MOR BID OBESITY 08/22/2011 Ot 278.03 OBE SITY HYPOVENTILATION SYNDROME 08/22/2011 Ot 288.60 ARCENIO KOCYTOSIS, UNSPECIFIED 08/22/2011 Ot 416.8 CHR PULMON HEART DIS NEC 08/22/2011 Ot 428.0 CELIA ESTIVE HEART FAILURE NOS 08/22/2011 Ot 428.33 ACU TE CHRONIC DIASTOLIC HRT FAILURE 08/22/2011 Ot 491.21 OBS TR CHRONIC BRONCHITIS, W (ACUTE) EXAC 08/22/2011 Ot 493.90 AST HMA, UNSPECIFIED 08/22/2011 Ot 518.84 ACU TE AND CHRONIC RESPIRATORY FAILURE 08/22/2011 Ot 780.57 UNS PECIFIED SLEEP APNEA 08/22/2011 Ot E932.0 ADV EFF CORTICOSTEROIDS 08/22/2011 Ot V15.82 HIS TORY OF TOBACCO USE 08/22/2011 Ot V85.42 BOD Y MASS INDEX 45.0-49.9, ADULT 02/12/2012 Ot 276.4 MIXE D ACID-BASE BAL DIS 02/12/2012 Ot 278.03 OBE SITY HYPOVENTILATION SYNDROME 02/12/2012 Ot 300.00 ANX IETY STATE NOS 02/12/2012 Ot 305.1 [employer] USE DISORDER 02/12/2012 Ot 327.23 OBS TRUCTIVE SLEEP APNEA (ADULT) (PEDIATR 02/12/2012 Ot 401.9 HYPE RTENSION NOS 02/12/2012 Ot 414.01 COR ONARY ATHEROSCLEROSIS OF [place] CORON 02/12/2012 Ot 428.0 CELIA ESTIVE HEART FAILURE NOS 02/12/2012 Ot 428.33 ACU TE CHRONIC DIASTOLIC HRT FAILURE 02/12/2012 Ot 491.21 OBS TR CHRONIC BRONCHITIS, W (ACUTE) EXAC 02/12/2012 Ot 518.84 ACU TE AND CHRONIC RESPIRATORY FAILURE 02/12/2012 Ot 724.5 BACK ACHE NOS 02/12/2012 Ot V15.81 HX OF PAST NONCOMPLIANCE 02/12/2012 Ot V85.43 BOD Y MASS INDEX 50.0-59.9, ADULT 08/08/2012 Ot 496 CHR AI RWAY OBSTRUCT NEC 08/08/2012 Ot 717.3 DERA NG MED MENISCUS NEC 08/08/2012 Ot 717.43 PAMELA ANG POST LAT MENISCUS 08/08/2012 Ot 717.7 PHIL DROMALACIA PATELLAE 08/08/2012 Ot 733.92 CHO NDROMALACIA 08/08/2012 Ot V57.1 PHYS ICAL THERAPY NEC 08/08/2012 Ot V58.69 OTH MED,LT,CURRENT USE 01/13/2013 DANITA TEE DO Ot 300.00 ANXIETY STATE NOS 01/13/2013 DANITA TEE DO Ot 305.1 TOBACCO USE DISORDER 01/13/2013 DNAITA TEE DO Ot 428.0 CONGESTIVE HEART FAILURE NOS 01/13/2013 DANITA TEE DO Ot 491.21 OBSTR CHRONIC BRONCHITIS, W (ACUTE) EXAC 01/13/2013 DANITA TEE DO Ot 724.5 BACKACHE NOS 01/13/2013 DANITA TEE DO Ot 799.02 HYPOXEMIA 01/13/2013 DANITA TEE DO Ot V46.2 SUPPLEMENTAL OXYGEN 04/01/2013 DANITA TEE DO Ot 278.00 OBESITY, NOS 04/01/2013 DANITA TEE DO Ot 300.00 ANXIETY STATE NOS 04/01/2013 DANITA TEE DO Ot 305.1 TOBACCO USE DISORDER 04/01/2013 DANITA TEE DO Ot 311 DEPRESSIVE DISORDER NEC 04/01/2013 DANITA TEE DO Ot 491.21 OBSTR CHRONIC BRONCHITIS, W (ACUTE) EXAC 04/01/2013 DANITA TEE DO Ot 518.81 ACUTE RESPIRATORY FAILURE 04/01/2013 NAY DANITA SAWYER Ot V85.43 BODY MASS INDEX 50.0-59.9, ADULT 01/30/2014 [facility] DANITA SAWYER Ot 272.0 PURE HYPERCHOLESTEROLEM 01/30/2014 [facility] 278.01 MORBID OBESITY 01/30/2014 [facility] Ot 278.03 OBESITY HYPOVENTILATION SYNDROME 01/30/2014 NAY DANITA SAWYER Ot 300.00 ANXIETY STATE NOS 01/30/2014 NAY DANITA SAWYER Ot 311 DEPRESSIVE DISORDER NEC 01/30/2014 [facility] DANITA SAWYER Ot 327.23 OBSTRUCTIVE SLEEP APNEA (ADULT) (PEDIATR 01/30/2014 [facility] DANITA SAWYER Ot 401.9 HYPERTENSION NOS 01/30/2014 [facility] D[facility] SA[facility] Ot 414.01 CORONARY ATHEROSCLEROSIS OF [place] CORON 01/30/2014 NAY DANITA SAWYER Ot 428.0 CONGESTIVE HEART FAILURE NOS 01/30/2014 [facility] DANITA SAWYER Ot 491.21 OBSTR CHRONIC BRONCHITIS, W (ACUTE) EXAC 01/30/2014 [facility] DANITA SAWYER Ot 518.84 ACUTE AND CHRONIC RESPIRATORY FAILURE 01/30/2014 NAY DANITA SAWYER Ot 716.90 ARTHROPATHY NOS-UNSPEC 01/30/2014 [facility] DANITA SAWYER Ot 724.5 BACKACHE NOS 01/30/2014 [facility] DANITA SAWYER Ot V15.82 HISTORY OF TOBACCO USE 01/30/2014 [facility] DANITA SAWYER Ot V85.43 BODY MASS INDEX 50.0-59.9, ADULT 04/09/2014 DANITA TEE DO Ot 278.00 OBESITY, NOS 04/09/2014 NAY DANITA SAWYER Ot 278.03 OBESITY HYPOVENTILATION SYNDROME 04/09/2014 [facility] DANITA SAWYER Ot 300.00 ANXIETY STATE NOS 04/09/2014 [facility] DANITA SAWYER Ot 305.1 TOBACCO USE DISORDER 04/09/2014 [facility] DANITA SAWYER Ot 311 DEPRESSIVE DISORDER NEC 04/09/2014 DANITA TEE DO Ot 327.23 OBSTRUCTIVE SLEEP APNEA (ADULT) (PEDIATR 04/09/2014 DANITA TEE DO Ot 401.9 HYPERTENSION NOS 04/09/2014 [facility] DANITA SAWYER Ot 414.01 CORONARY ATHEROSCLEROSIS OF [place] CORON 04/09/2014 MIKEYLENDER , DANITA Donaldson Ot 428.0 CONGESTIVE HEART FAILURE NOS 04/09/2014 GELLENDER , DANITA Donaldson Ot 491.21 OBSTR CHRONIC BRONCHITIS, W (ACUTE) EXAC 04/09/2014 GELLENDER DO, DANITA Donaldson Ot 518.84 ACUTE AND CHRONIC RESPIRATORY FAILURE 04/09/2014 GELLENDER , DANITA Donaldson Ot 716.90 ARTHROPATHY NOS-UNSPEC 04/09/2014 GELLENDER DO, DANITA Donaldson Ot 799.3 DEBILITY NOS 04/09/2014 GELLENDER DO, DANITA Donaldson Ot V46.2 SUPPLEMENTAL OXYGEN 04/09/2014 GELLENDER DO, DANITA Donaldson Ot V85.43 BODY MASS INDEX 50.0-59.9, ADULT 06/12/2014 [place] RIDDLE, JIA Ot 214.1 LIPOMA SKIN NEC 06/12/2014 JIA MCPHERSON MD Ot 709.2 SCAR FIBROSIS OF SKIN 07/12/2014 MAGNUS VALDEZ APRN Ot 707 .8 CHRONIC SKIN ULCER NEC 09/11/2014 Ot 496 09/11/2014 Ot 327.23 09/11/2014 Ot 717.3 09/11/2014 Ot 717.7 09/11/2014 Ot V72.63 09/11/2014 Ot V74.8 09/11/2014 NIKHIL RIDDLE, JERMAIN Smith Ot 722. 52 09/11/2014 JERMAIN TEJEDA MD Ot 737. 30 09/11/2014 [place] RIDDLE, JIA Ot 706.2 09/11/2014 JIA MCPHERSON MD Ot V72.84 10/13/2014 GELLENDER DO, DANITA Donaldson Ot 611.72 01/06/2015 GELLENDER DO, DANITA Donaldson Ot 611.1 02/20/2015 GELLENDER DO, DANITA Donaldson Ot 428.0 02/20/2015 GELLENDER DO, DANITA Donaldson Ot 491.21 02/20/2015 GELLENDER DO, DANITA Donaldson Ot 518.84 02/20/2015 GELLENDER DO, DANITA Dnoaldson Ot 428.0 02/20/2015 GELLENDER DO, DANITA Donaldson Ot 491.21 02/20/2015 GELLENDER DO, DANITA Donaldson Ot 518.84 02/21/2015 GELLENDER DO, DANITA Donaldson Ot 428.0 02/21/2015 GELLENDER DO, DANITA Donaldson Ot 491.21 02/21/2015 GELLENDER DO, DANITA Donaldson Ot 518.84 02/22/2015 GELLENDER DO, DANITA Donaldson Ot 428.0 02/22/2015 GELLENDER DO, DANITA Donaldson Ot 491.21 02/22/2015 GELLENDER DO, DANITA Donaldson Ot 518.84 02/23/2015 GELLENDER DO, DNAITA Anika Ot 428.0 02/23/2015 GELLENDER DO, DANITA Anika Ot 491.21 02/23/2015 GELLENDER DO, DANITA Anika Ot 518.84 02/23/2015 GELLENDER DO, DANITA Anika Ot 428.0 02/23/2015 GELLENDER DO, DANITA Donaldson Ot 491.21 02/23/2015 GELLENDER DO, DANITA Anika Ot 518.84 02/23/2015 GELLENDER DO, DANITA Donaldson Ot 272.4 HYPERLIPIDEMIA NEC/NOS 02/23/2015 GELLENDER DO, DANITA Donaldson Ot 276.7 HYPERPOTASSEMIA 02/23/2015 GELLENDER DO, DANITA Donaldson Ot 278.01 MORBID OBESITY 02/23/2015 GELLENDER DO, DANITA Donaldson Ot 278.03 OBESITY HYPOVENTILATION SYNDROME 02/23/2015 GELLENDER DO, DANITA Donaldson Ot 305.1 TOBACCO USE DISORDER 02/23/2015 [facility] DANITA Donaldson Ot 403.90 HYPTNSV CHR KID DIS, UNSPEC, W CHR KD ST 02/23/2015 GELLENDER DO, DANITA Donaldson Ot 414.01 CORONARY ATHEROSCLEROSIS OF [place] CORON 02/23/2015 [facility] DANITA Donaldson Ot 428.0 CONGESTIVE HEART FAILURE NOS 02/23/2015 GELLENDER DO, DANITA Donaldson Ot 428.33 ACUTE CHRONIC DIASTOLIC HRT FAILURE 02/23/2015 GELLENDER DO, DANITA Donaldson Ot 491.21 OBSTR CHRONIC BRONCHITIS, W (ACUTE) EXAC 02/23/2015 GELLENDER DO, DANITA Donaldson Ot 518.84 ACUTE AND CHRONIC RESPIRATORY FAILURE 02/23/2015 GELLENDER DO, DANITA Donaldson Ot 528.9 ORAL SOFT TISSUE DIS NEC 02/23/2015 GELLENDER DO, DANITA Donaldson Ot 585.9 CHRONIC KIDNEY DISEASE, UNSPECIFIED 02/23/2015 GELLENDER DODANITA Ot 780.57 UNSPECIFIED SLEEP APNEA 02/23/2015 GELLENDER DO, DANITA Donaldson Ot 786.59 CHEST PAIN NEC 02/23/2015 DANITA TEE DO Ot 802.0 NASAL BONE FX-CLOSED 02/23/2015 [facility] Ot 825.25 FX METATARSAL-CLOSED 02/23/2015 [facility] DO Ot 847.2 SPRAIN LUMBAR REGION 02/23/2015 [facility] DO Ot E000.8 OTHER EXTERNAL CAUSE STATUS 02/23/2015 DANITA TEE DO Ot E849.0 ACCIDENT IN HOME 02/23/2015 DANITA TEE DO Ot E888.1 FALL STRIKING OBJECT NEC 02/23/2015 [facility] DO Ot V46.2 SUPPLEMENTAL OXYGEN 02/23/2015 DANITA TEE DO Ot V85.43 BODY MASS INDEX 50.0-59.9, ADULT 06/24/2015 NAY SAWYER, DANITA Donaldson Ot E66.01 MORBID (SEVERE) OBESITY DUE TO EXCESS CA 06/24/2015 NAY SAWYER DANITA Donaldson Ot I10 ESSENTIAL (PRIMARY) HYPERTENSION 06/24/2015 [facility] DANITA Donaldson Ot I25.10 ATHSCL HEART DISEASE OF [place] CORONARY 06/24/2015 [facility] Donalds[facility] Ot J44.1 CHRONIC OBSTRUCTIVE PULMONARY DISEASE W 06/24/2015 DANITA TEE DO Ot S92.301D FX UNSP METATARSAL BONE(S), R FOOT, SUBS 06/24/2015 DANITA TEE DO Ot X58.XXXD EXPOSURE TO OTHER SPECIFIED FACTORS, SUB 06/24/2015 NAY SAWYER DANITA Donaldson Ot Z68.43 BODY MASS INDEX (BMI) 50-59.9 , ADULT 06/24/2015 NAY SAWYER, DANITA Donaldson Ot Z87.891 PERSONAL HISTORY OF NICOTINE DEPENDENCE 06/24/2015 NAY DANITA Donaldson Ot Z91.81 HISTORY OF FALLING 06/24/2015 [facility] Donaldson Ot Z99.81 DEPENDENCE ON SUPPLEMENTAL OXYGEN 10/14/2015 Ot 496 10/14/2015 Ot 327.23 10/14/2015 Ot 717.3 10/14/2015 Ot 717.7 10/14/2015 Ot V72.63 10/14/2015 Ot V74.8 10/14/2015 JERMAIN TEJEDA MD Ot 722. 52 10/14/2015 JERMAIN TEJEDA MD Ot 737. 30 10/14/2015 [place] RIDDLE, JIA Ot 706.2 10/14/2015 [place] RIDDLE, JIA Ot V72.84 10/14/2015 GELLENDER DO, DANITA A Ot 611.72 10/14/2015 GELLENDER DO, DANITA A Ot 611.1 11/04/2015 GELLENDER DO, DANITA A Ot R92.8 11/13/2015 GELLENDER DO, DANITA A Ot R92.8 11/16/2015 ABDI CUNHA MD Ot E66.2 MORBID (SEVERE) OBESITY WITH ALVEOLAR HY 11/16/2015 ABDI CUNHA MD Ot E78.0 PURE HYPERCHOLESTEROLEMIA 11/16/2015 ABDI CUNHA MD Ot E87.5 HYPERKALEMIA 11/16/2015 ABDI CUNHA MD Ot F17.210 NICOTINE DEPENDENCE, CIGARETTES, UNCOMPL 11/16/2015 ABDI CUNHA MD Ot F32.9 MAJOR DEPRESSIVE DISORDER, SINGLE EPISOD 11/16/2015 ABDI CUNHA MD Ot F41.9 ANXIETY DISORDER, UNSPECIFIED 11/16/2015 ABDI CUNHA MD Ot G47.30 SLEEP APNEA, UNSPECIFIED 11/16/2015 ABDI CUNHA MD Ot G89.4 CHRONIC PAIN SYNDROME 11/16/2015 ABDI CUNHA MD Ot I1 0 ESSENTIAL (PRIMARY) HYPERTENSION 11/16/2015 ABDI CUNHA MD Ot I25.10 ATHSCL HEART DISEASE OF [place] CORONARY 11/16/2015 ABDI CUNHA MD Ot I48.91 UNSPECIFIED ATRIAL FIBRILLATION 11/16/2015 ABDI CUNHA MD Ot J44.9 CHRONIC OBSTRUCTIVE PULMONARY DISEASE, U 11/16/2015 ABDI CUNHA MD Ot J96.00 ACUTE RESPIRATORY FAILURE, UNSP W HYPOXI 11/16/2015 ABDI CUNHA MD Ot M47.9 SPONDYLOSIS, UNSPECIFIED 11/16/2015 ABDI CUNHA MD Ot R06.00 11/16/2015 ABDI CUNHA MD Ot R41.82 ALTERED MENTAL STATUS, UNSPECIFIED 11/16/2015 ABDI CUNHA MD Ot R47.81 SLURRED SPEECH 11/16/2015 ABDI CUNHA MD Ot S20.319A ABRASION OF UNSPECIFIED FRONT WALL OF TH 11/16/2015 ABDI CUNHA MD Ot S50.311A ABRASION OF RIGHT ELBOW, INITIAL ENCOUNT 11/16/2015 ABDI CUNHA MD, Ot S50.312A ABRASION OF LEFT ELBOW, INITIAL ENCOUNTE 11/16/2015 ABDI CUNHA MD, Ot S60.511A ABRASION OF RIGHT HAND, INITIAL ENCOUNTE 11/16/2015 ABDI CUNHA MD, Ot S60.512A ABRASION OF LEFT HAND, INITIAL ENCOUNTER 11/16/2015 ABDI CUNHA MD, Ot T40.601A POISONING BY [facility] NARCOTICS, ACCIDENTAL, 11/16/2015 ABDI CUNHA MD Ot X58.XXXA EXPOSURE TO OTHER SPECIFIED FACTORS, INI 11/16/2015 ABDI CUNHA MD Ot Y92.[address] [facility] [address] [facility] [facility] [facility] NON-[facility] (PRIVATE 11/16/2015 ABDI CUNHA MD Ot Z68.43 BODY MASS INDEX (BMI) 50-59.9 , ADULT 11/19/2015 NIKHIL RIDDLE, JERMAIN Smith Ot M25.552 11/19/2015 JERMAIN TEJEDA MD Ot M54. 5 12/01/2015 JERMAIN TEJEDA MD Ot M25.552 12/01/2015 JERMAIN TEJEDA MD Ot M54. 5 12/16/2015 VALENTE DE LEON MD Ot E66.01 MORBID (SEVERE) OBESITY DUE TO EXCESS CA 12/16/2015 VALENTE DE LEON MD Ot E87.5 HYPERKALEMIA 12/16/2015 VALENTE DE LEON MD Ot E87.79 OTHER FLUID OVERLOAD 12/16/2015 VALENTE DE LEON MD Ot I50.9 HEART FAILURE, UNSPECIFIED 12/16/2015 VALENTE DE LEON MD Ot I51.7 CARDIOMEGALY 12/16/2015 VALENTE DE LEON MD Ot J96.01 ACUTE RESPIRATORY FAILURE WITH HYPOXIA 12/16/2015 VALENTE DE LEON MD Ot N17.9 ACUTE KIDNEY FAILURE, UNSPECIFIED 12/16/2015 VALENTE DE LEON MD Ot R00.1 BRADYCARDIA, UNSPECIFIED 12/16/2015 VALENTE DE LEON MD Ot Z87.891 PERSONAL HISTORY OF NICOTINE DEPENDENCE 2015 MOISES RIDDLE, VALENTE Gomez Ot E66.01 2015 MOISES RIDDLE, VALENTE D Ot E87.5 2015 MOISES RIDDLE, VALENTE D Ot E87.79 2015 MOISES RIDDLE, VALENTE D Ot I50.9 2015 MOISES RIDDLE, VALENTE D Ot I51.7 2015 MOISES RIDDLE, VALENTE D Ot J96.01 2015 MOISES RIDDLE, VALENTE D Ot N17.9 2015 MOISES RIDDLE, VALENTE Gomez Ot R00.1 2015 MOISES RIDDLE, VALENTE Gomez Ot Z87.891 04/13/2016 DANITA TEE DO Ot E66.2 MORBID (SEVERE) OBESITY WITH ALVEOLAR HY 04/13/2016 DANITA TEE DO Ot E78.0 PURE HYPERCHOLESTEROLEMIA 04/13/2016 DANITA TEE DO Ot F32.9 MAJOR DEPRESSIVE DISORDER, SINGLE EPISOD 04/13/2016 DANITA TEE DO Ot F41.9 ANXIETY DISORDER, UNSPECIFIED 04/13/2016 DANITA TEE DO Ot G47.33 OBSTRUCTIVE SLEEP APNEA (ADULT) (PEDIATR 04/13/2016 DANITA TEE DO Ot I10 ESSENTIAL (PRIMARY) HYPERTENSION 04/13/2016 DANITA TEE DO Ot I25.10 ATHSCL HEART DISEASE OF [place] CORONARY 04/13/2016 DANITA TEE DO Ot I50.9 HEART FAILURE, UNSPECIFIED 04/13/2016 DANITA TEE DO Ot J18.9 PNEUMONIA, UNSPECIFIED ORGANISM 04/13/2016 DANITA TEE DO Ot J44.1 CHRONIC OBSTRUCTIVE PULMONARY DISEASE W 04/13/2016 DANITA TEE DO Ot J96.20 ACUTE AND CHR RESP FAILURE, UNSP W HYPOX 04/13/2016 DANITA TEE DO Ot M54.9 DORSALGIA, UNSPECIFIED 04/13/2016 DANITA TEE DO Ot M81.0 AGE-RELATED OSTEOPOROSIS W/O CURRENT PAT 04/13/2016 DANITA TEE DO Ot Z68.43 BODY MASS INDEX (BMI) 50-59.9 , ADULT 04/13/2016 [facility] DANITA Donaldson Ot Z87.891 PERSONAL HISTORY OF NICOTINE DEPENDENCE 04/13/2016 [facility], DANITA Donaldson Ot Z99.81 DEPENDENCE ON SUPPLEMENTAL OXYGEN 04/13/2016 [facility], DANITA Donaldson Ot D64.9 ANEMIA, UNSPECIFIED 04/13/2016 [facility], DANITA Donaldson Ot E66.2 MORBID (SEVERE) OBESITY WITH ALVEOLAR HY 04/13/2016 [facility], DANITA Donaldson Ot E78.0 PURE HYPERCHOLESTEROLEMIA 04/13/2016 [facility], DANITA Donaldson Ot F32.9 MAJOR DEPRESSIVE DISORDER, SINGLE EPISOD 04/13/2016 [facility], DANITA Donaldson Ot F41.9 ANXIETY DISORDER, UNSPECIFIED 04/13/2016 [facility], DANITA Donaldson Ot G47.33 OBSTRUCTIVE SLEEP APNEA (ADULT) (PEDIATR 04/13/2016 [facility], DANITA Donaldson Ot I10 ESSENTIAL (PRIMARY) HYPERTENSION 04/13/2016 [facility], DANITA Donaldson Ot I25.10 ATHSCL HEART DISEASE OF [place] CORONARY 04/13/2016 [facility] Ot I50.9 HEART FAILURE, UNSPECIFIED 04/13/2016 [facility] Ot J18.9 PNEUMONIA, UNSPECIFIED ORGANISM 04/13/2016 [facility] J44.1 CHRONIC OBSTRUCTIVE PULMONARY DISEASE W 04/13/2016 [facility] Ot J96.20 ACUTE AND CHR RESP FAILURE, UNSP W HYPOX 04/13/2016 [facility] D[facility] Ot M54.9 DORSALGIA, UNSPECIFIED 04/13/2016 [facility] D[facility] Ot M81.0 AGE-RELATED OSTEOPOROSIS W/O CURRENT PAT 04/13/2016 [facility], DANITA Donaldson Ot Z68.43 BODY MASS INDEX (BMI) 50-59.9 , ADULT 04/13/2016 NAY SAWYER, DANITA Donaldson Ot Z87.891 PERSONAL HISTORY OF NICOTINE DEPENDENCE 04/13/2016 [facility] , DANITA Donaldson Ot Z99.81 DEPENDENCE ON SUPPLEMENTAL OXYGEN 06/13/2016 [facility], DANITA Donaldson Ot D72.829 ELEVATED WHITE BLOOD CELL COUNT, UNSPECI 06/13/2016 NAY SAWYERDANITA Ot E66.2 MORBID (SEVERE) OBESITY WITH ALVEOLAR HY 06/13/2016 [facility] Ot E78.00 PURE HYPERCHOLESTEROLEMIA, UNSPECIFIED 06/13/2016 NAY DANITA SAWYER Ot F32.9 MAJOR DEPRESSIVE DISORDER, SINGLE EPISOD 06/13/2016 NAY SAYWERDANITA Ot F41.9 ANXIETY DISORDER, UNSPECIFIED 06/13/2016 NAY SAWYERDANITA Ot G47.30 SLEEP APNEA, UNSPECIFIED 06/13/2016 NAY DANITA SAWYER Ot I13.0 HYP HRT CHR KDNY DIS W HRT FAIL AND ST 06/13/2016 [facility] DANITA Ot I25.10 ATHSCL HEART DISEASE OF [place] CORONARY 06/13/2016 [facility] , DANITA Donaldson Ot I48.0 PAROXYSMAL ATRIAL FIBRILLATION 06/13/2016 [facility] Ot I50.33 ACUTE ON CHRONIC DIASTOLIC (CONGESTIVE) 06/13/2016 NAY SAWYERDANITA Ot I87.8 OTHER SPECIFIED DISORDERS OF VEINS 06/13/2016 NAY SAWYERDANITA Ot J44.1 CHRONIC OBSTRUCTIVE PULMONARY DISEASE W 06/13/2016 [facility] DANITA SAWYER Ot J96.21 ACUTE AND CHRONIC RESPIRATORY FAILURE [place] 06/13/2016 NAY SAWYERDAINTA Ot J96.22 ACUTE AND CHRONIC RESPIRATORY FAILURE [place] 06/13/2016 NAY DANITA Ot L03.115 CELLULITIS OF RIGHT LOWER LIMB 06/13/2016 NAY SAWYERDANITA Ot L03.116 CELLULITIS OF LEFT LOWER LIMB 06/13/2016 NAY SAWYERDANITA Ot N18.9 CHRONIC KIDNEY DISEASE, UNSPECIFIED 06/13/2016 NAY DANITA SAWYER Ot R73.9 HYPERGLYCEMIA, UNSPECIFIED 06/13/2016 [facility] Ot T38.0X5A ADVERSE EFFECT OF GLUCOCORT/SYNTH ANALOG 06/13/2016 NAY DANITA SAWYER Ot Z68.43 BODY MASS INDEX (BMI) 50-59.9 , ADULT 06/13/2016 DANITA TEE DO Ot Z87.891 PERSONAL HISTORY OF NICOTINE DEPENDENCE 06/13/2016 NAY DANITA SAWYER Ot Z91.81 HISTORY OF FALLING 06/13/2016 DANITA TEE DO Ot Z99.81 DEPENDENCE ON SUPPLEMENTAL OXYGEN 06/14/2016 DANITA TEE DO Ot D72.829 ELEVATED WHITE BLOOD CELL COUNT, UNSPECI 06/14/2016 NAY SAWYERDANITA Ot E66.2 MORBID (SEVERE) OBESITY WITH ALVEOLAR HY 06/14/2016 NAY SAWYERDANITA Ot E78.00 PURE HYPERCHOLESTEROLEMIA, UNSPECIFIED 06/14/2016 NAY SAWYERDANITA Ot F32.9 MAJOR DEPRESSIVE DISORDER, SINGLE EPISOD 06/14/2016 NAY SAWYERDANITA Ot F41.9 ANXIETY DISORDER, UNSPECIFIED 06/14/2016 NAY SAWYERDANITA Ot G47.30 SLEEP APNEA, UNSPECIFIED 06/14/2016 NAY SAWYERDANITA Ot I13.0 HYP HRT CHR [place] DIS W HRT FAIL AND ST 06/14/2016 NAY SAWYERDANITA Ot I25.10 ATHSCL HEART DISEASE OF [place] CORONARY 06/14/2016 NAY SAWYERDANITA Ot I48.0 PAROXYSMAL ATRIAL FIBRILLATION 06/14/2016 NAY SAWYERDANITA Ot I50.33 ACUTE ON CHRONIC DIASTOLIC (CONGESTIVE) 06/14/2016 MIKEYSHAI DANITA SAWYER Ot I87.8 OTHER SPECIFIED DISORDERS OF VEINS 06/14/2016 NAY SAWYERDANITA Ot J44.1 CHRONIC OBSTRUCTIVE PULMONARY DISEASE W 06/14/2016 NAY DANITA SAWYER Ot J96.21 ACUTE AND CHRONIC RESPIRATORY FAILURE [place] 06/14/2016 NAY SAWYERDANITA Ot J96.22 ACUTE AND CHRONIC RESPIRATORY FAILURE [place] 06/14/2016 NAY SAWYERDANITA Ot L03.115 CELLULITIS OF RIGHT LOWER LIMB 06/14/2016 NAY DANITA SAWYER Ot L03.116 CELLULITIS OF LEFT LOWER LIMB 06/14/2016 NAY DANITA SAWYER Ot N18.9 CHRONIC KIDNEY DISEASE, UNSPECIFIED 06/14/2016 NAY SAWYERDANITA Ot R73.9 HYPERGLYCEMIA, UNSPECIFIED 06/14/2016 [facility] DANITA SAWYER Ot T38.0X5A ADVERSE EFFECT OF GLUCOCORT/SYNTH ANALOG 06/14/2016 NAY SAWYERDANITA Ot Z68.43 BODY MASS INDEX (BMI) 50-59.9 , ADULT 06/14/2016 NAY SAWYERDANITA Ot Z87.891 PERSONAL HISTORY OF NICOTINE DEPENDENCE 06/14/2016 MIKEYCLARISSEBRANCHDANITA Ot Z91.81 HISTORY OF FALLING 06/14/2016 NAY SAWYERDANITA Ot Z99.81 DEPENDENCE ON SUPPLEMENTAL OXYGEN 06/15/2016 MIKEYSHAI DANITA SAWYER Ot D72.829 ELEVATED WHITE BLOOD CELL COUNT, UNSPECI 06/15/2016 NAY SAWYERDANITA Ot E66.2 MORBID (SEVERE) OBESITY WITH ALVEOLAR HY 06/15/2016 NAY SAWYERDANITA Ot E78.00 PURE HYPERCHOLESTEROLEMIA, UNSPECIFIED 06/15/2016 NAY DANITA SAWYER Ot F32.9 MAJOR DEPRESSIVE DISORDER, SINGLE EPISOD 06/15/2016 NAY SAWYERDANITA Ot F41.9 ANXIETY DISORDER, UNSPECIFIED 06/15/2016 NAY DANITA SAWYER Ot G47.30 SLEEP APNEA, UNSPECIFIED 06/15/2016 NAY DANITA SAWYER Ot I13.0 HYP HRT CHR [place] DIS W HRT FAIL AND ST 06/15/2016 NAY SAWYERDANITA Ot I25.10 ATHSCL HEART DISEASE OF [place] CORONARY 06/15/2016 ISAIASPAMELA DANITA SAWYER Ot I48.0 PAROXYSMAL ATRIAL FIBRILLATION 06/15/2016 NAY DANITA SAWYER Ot I50.33 ACUTE ON CHRONIC DIASTOLIC (CONGESTIVE) 06/15/2016 MIKEYSHAI DANITA SAWYER Ot I87.8 OTHER SPECIFIED DISORDERS OF VEINS 06/15/2016 ISAIASPAMELA DANITA SAWYER Ot J44.1 CHRONIC OBSTRUCTIVE PULMONARY DISEASE W 06/15/2016 NAY DANITA SAWYER Ot J96.21 ACUTE AND CHRONIC RESPIRATORY FAILURE [place] 06/15/2016 NAY DANITA SAWYER Ot J96.22 ACUTE AND CHRONIC RESPIRATORY FAILURE [place] 06/15/2016 DANITA TEE DO Ot L03.115 CELLULITIS OF RIGHT LOWER LIMB 06/15/2016 NAY DANITA SAWYER Ot L03.116 CELLULITIS OF LEFT LOWER LIMB 06/15/2016 DANITA TEE DO Ot N18.9 CHRONIC KIDNEY DISEASE, UNSPECIFIED 06/15/2016 DANITA TEE DO Ot R73.9 HYPERGLYCEMIA, UNSPECIFIED 06/15/2016 NAY DANITA SAWYER Ot T38.0X5A ADVERSE EFFECT OF GLUCOCORT/SYNTH ANALOG 06/15/2016 DANITA TEE DO Ot Z68.43 BODY MASS INDEX (BMI) 50-59.9 , ADULT 06/15/2016 NAY SAWYERDANITA Ot Z87.891 PERSONAL HISTORY OF NICOTINE DEPENDENCE 06/15/2016 NAY SAWYERDANITA Ot Z91.81 HISTORY OF FALLING 06/15/2016 NAY SAWYERDANITA Ot Z99.81 DEPENDENCE ON SUPPLEMENTAL OXYGEN 06/15/2016 NAY SAWYERDANITA Ot D72.829 ELEVATED WHITE BLOOD CELL COUNT, UNSPECI 06/15/2016 NAY DANITA SAWYER Ot E66.2 MORBID (SEVERE) OBESITY WITH ALVEOLAR HY 06/15/2016 NAY SAWYERDANITA Ot E78.00 PURE HYPERCHOLESTEROLEMIA, UNSPECIFIED 06/15/2016 NAY SAWYREDANITA Ot F32.9 MAJOR DEPRESSIVE DISORDER, SINGLE EPISOD 06/15/2016 NAY SAWYERDANITA Ot F41.9 ANXIETY DISORDER, UNSPECIFIED 06/15/2016 NAY SAWYERDANITA Ot G47.30 SLEEP APNEA, UNSPECIFIED 06/15/2016 NAY DANITA SAWYER Ot I13.0 HYP HRT CHR [place] DIS W HRT FAIL AND ST 06/15/2016 NAY SAWYERDANITA Ot I25.10 ATHSCL HEART DISEASE OF [place] CORONARY 06/15/2016 NAY SAWYERDANITA Ot I48.0 PAROXYSMAL ATRIAL FIBRILLATION 06/15/2016 NAY DANITA SAWYER Ot I50.33 ACUTE ON CHRONIC DIASTOLIC (CONGESTIVE) 06/15/2016 NAY SAWYERDANITA Ot I87.8 OTHER SPECIFIED DISORDERS OF VEINS 06/15/2016 NAY SAWYERDANITA Ot J44.1 CHRONIC OBSTRUCTIVE PULMONARY DISEASE W 06/15/2016 MIKEYSHAI DANITA SAWYER Ot J96.21 ACUTE AND CHRONIC RESPIRATORY FAILURE [place] 06/15/2016 NAY SAWYERDANITA Ot J96.22 ACUTE AND CHRONIC RESPIRATORY FAILURE [place] 06/15/2016 NAY DANITA SAWYER Ot L03.115 CELLULITIS OF RIGHT LOWER LIMB 06/15/2016 NAY DANITA SAWYER Ot L03.116 CELLULITIS OF LEFT LOWER LIMB 06/15/2016 MIKEYSHAI DANITA SAWYER Ot N18.9 CHRONIC KIDNEY DISEASE, UNSPECIFIED 06/15/2016 ISAIASPAMELA DANITA SAWYER Ot R73.9 HYPERGLYCEMIA, UNSPECIFIED 06/15/2016 MIKEYCLARISSEPAMELA DANITA SAWYER Ot T38.0X5A ADVERSE EFFECT OF GLUCOCORT/SYNTH ANALOG 06/15/2016 DANITA TEE DO Anika Ot Z68.43 BODY MASS INDEX (BMI) 50-59.9 , ADULT 06/15/2016 NAY SAWYER DANITA Donaldson Ot Z87.891 PERSONAL HISTORY OF NICOTINE DEPENDENCE 06/15/2016 NAY SAWYERDANITA Ot Z91.81 HISTORY OF FALLING 06/15/2016 NAY SAWYERDANITA Ot Z99.81 DEPENDENCE ON SUPPLEMENTAL OXYGEN 06/15/2016 Ot 327.23 OBS TRUCTIVE SLEEP APNEA (ADULT) (PEDIATR 06/15/2016 Ot 717.3 DERA NG MED MENISCUS NEC 06/15/2016 Ot 717.7 PHIL DROMALACIA PATELLAE 06/15/2016 Ot V72.63 PRE -PROCEDURAL LABORATORY EXAMINATION 06/15/2016 Ot V74.8 SCRE EN-BACTERIAL DIS NEC 06/15/2016 JERMAIN TEJEDA MD Ot 722. 52 LUMB/LUMBOSAC DISC DEGEN 06/15/2016 JERMAIN TEJEDA MD Ot 737. 30 IDIOPATHIC SCOLIOSIS 06/15/2016 JIA MCPHERSON MD Ot 706.2 SEBACEOUS CYST 06/15/2016 JIA MCPHERSON MD Ot V72.84 EXAM PRE-OPERATIVE NOS 06/15/2016 NAY SAWYERDANITA Ot 611.72 LUMP OR MASS IN BREAST 06/15/2016 NAY DANITA SAWYER Ot 611.1 HYPERTROPHY OF BREAST 06/15/2016 MIKEYDANITA GIBBONS DO Ot R92.8 OTH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 [facility], DANITA Donaldson Ot I25.10 ATHSCL HEART DISEASE OF [place] CORONARY 09/23/2018 [facility], DANITA Donaldson Ot I27.20 PULMONARY HYPERTENSION, UNSPECIFIED 09/23/2018 [facility], DANITA Donaldson Ot I38 ENDOCARDITIS, VALVE UNSPECIFIED 09/23/2018 [facility], DANITA Donaldson Ot I50.9 HEART FAILURE, UNSPECIFIED 09/23/2018 [facility], DANITA Donaldson Ot J18.1 LOBAR PNEUMONIA, UNSPECIFIED ORGANISM 09/23/2018 [facility], DANITA Donaldson Ot J43.9 EMPHYSEMA, UNSPECIFIED 09/23/2018 [facility] J96.01 ACUTE RESPIRATORY FAILURE WITH HYPOXIA 09/23/2018 [facility], DANITA Donaldson Ot J96.02 ACUTE RESPIRATORY FAILURE WITH HYPERCAPN 09/23/2018 [facility] DANITA Donaldson Ot M19.91 PRIMARY OSTEOARTHRITIS, UNSPECIFIED SITE 09/23/2018 [facility] M54.9 DORSALGIA, UNSPECIFIED 09/23/2018 [facility], DANITA Donaldson Ot M81.0 AGE-RELATED OSTEOPOROSIS W/O CURRENT PAT 09/23/2018 [facility], DANITA Donaldson Ot N28.9 DISORDER OF KIDNEY AND URETER, UNSPECIFI 09/23/2018 [facility] D[facility] Ot Z68.43 BODY MASS INDEX (BMI) 50-59.9, ADULT 09/23/2018 GELLENDER DO, DANITA Donaldson Ot Z79.84 PENITENTIARY (CURRENT) USE OF ORAL HYPOGLYC 09/23/2018 GELLENDER DO, DANITA Donaldson Ot Z87.891 PERSONAL HISTORY OF NICOTINE DEPENDENCE 09/24/2018 GELLENDER DO, DANITA Donaldson Ot E11.9 TYPE 2 DIABETES MELLITUS WITHOUT COMPLIC 09/24/2018 GELLENDER DO, DANITA Donaldson Ot E66.2 MORBID (SEVERE) OBESITY WITH ALVEOLAR HY 09/24/2018 GELLENDER DO, DANITA Donaldson Ot E78.00 PURE HYPERCHOLESTEROLEMIA, UNSPECIFIED 09/24/2018 GELLENDER DO, DANITA Donaldson Ot E87.5 HYPERKALEMIA 09/24/2018 GELLENDER DO, DANITA Donaldson Ot F32.9 MAJOR DEPRESSIVE DISORDER, SINGLE EPISOD 09/24/2018 GELLENDER DO, DANITA Donaldson Ot F41.9 ANXIETY DISORDER, UNSPECIFIED 09/24/2018 GELLENDER DO, DANITA Donaldson Ot I11.0 HYPERTENSIVE HEART DISEASE WITH HEART FA 09/24/2018 GELLENDER DO, DANITA Donaldson Ot I25.10 ATHSCL HEART DISEASE OF [place] CORONARY 09/24/2018 GELLENDER DO, DANITA Donaldson Ot I27.20 PULMONARY HYPERTENSION, UNSPECIFIED 09/24/2018 GELLENDER DO, DANITA Donaldson Ot I38 ENDOCARDITIS, VALVE UNSPECIFIED 09/24/2018 GELLENDER DO, DANITA Donaldson Ot I50.9 HEART FAILURE, UNSPECIFIED 09/24/2018 GELLENDER DO, DANITA Donaldson Ot J18.1 LOBAR PNEUMONIA, UNSPECIFIED ORGANISM 09/24/2018 GELLENDER DO, DANITA Donaldson Ot J43.9 EMPHYSEMA, UNSPECIFIED 09/24/2018 GELLENDER DO, DANITA Donaldson Ot J96.01 ACUTE RESPIRATORY FAILURE WITH HYPOXIA 09/24/2018 GELLENDER DO, DANITA Donaldson Ot J96.02 ACUTE RESPIRATORY FAILURE WITH HYPERCAPN 09/24/2018 GELLENDER DO, DANITA Donaldson Ot M19.91 PRIMARY OSTEOARTHRITIS, UNSPECIFIED SITE 09/24/2018 GELLENDER DO, DANITA Donaldson Ot M54.9 DORSALGIA, UNSPECIFIED 09/24/2018 GELLENDER DO, DANITA Donaldson Ot M81.0 AGE-RELATED OSTEOPOROSIS W/O CURRENT PAT 09/24/2018 GELLENDER DO, DANITA Donaldson Ot N28.9 DISORDER OF KIDNEY AND URETER, UNSPECIFI 09/24/2018 GELLENDER DO, DANITA Donaldson Ot Z68.43 BODY MASS INDEX (BMI) 50-59.9, ADULT 09/24/2018 GELLENDER DO, DANITA Donaldson Ot Z79.84 PENITENTIARY (CURRENT) USE OF ORAL HYPOGLYC 09/24/2018 GELLENDER DO, DANITA Donaldson Ot Z87.891 PERSONAL HISTORY OF NICOTINE DEPENDENCE 09/24/2018 GELLENDER DO, DANTIA Donaldson Ot E11.9 TYPE 2 DIABETES MELLITUS WITHOUT COMPLIC 09/24/2018 GELLENDER DO, DANITA Donaldson Ot E66.2 MORBID (SEVERE) OBESITY WITH ALVEOLAR HY 09/24/2018 GELLENDER DO, DANITA Donaldson Ot E78.00 PURE HYPERCHOLESTEROLEMIA, UNSPECIFIED 09/24/2018 GELLENDER DO, DANITA Donaldson Ot E87.5 HYPERKALEMIA 09/24/2018 GELLENDER DO, DANITA Donaldson Ot F32.9 MAJOR DEPRESSIVE DISORDER, SINGLE EPISOD 09/24/2018 GELLENDER DO, DANITA Donaldson Ot F41.9 ANXIETY DISORDER, UNSPECIFIED 09/24/2018 GELLENDER DO, DANITA Donaldson Ot I11.0 HYPERTENSIVE HEART DISEASE WITH HEART FA 09/24/2018 GELLENDER DO, DANITA Donaldson Ot I25.10 ATHSCL HEART DISEASE OF [place] CORONARY 09/24/2018 GELLENDER DO, DANITA Donaldson Ot I27.20 PULMONARY HYPERTENSION, UNSPECIFIED 09/24/2018 GELLENDER DO, DANITA Donaldson Ot I38 ENDOCARDITIS, VALVE UNSPECIFIED 09/24/2018 GELLENDER DO, DANITA Donaldson Ot I50.9 HEART FAILURE, UNSPECIFIED 09/24/2018 GELLENDER DO, DANITA Donaldson Ot J18.1 LOBAR PNEUMONIA, UNSPECIFIED ORGANISM 09/24/2018 GELLENDER DO, DANITA Donaldson Ot J43.9 EMPHYSEMA, UNSPECIFIED 09/24/2018 GELLENDER DO, DANITA Donaldson Ot J96.01 ACUTE RESPIRATORY FAILURE WITH HYPOXIA 09/24/2018 GELLENDER DO, DANITA Donaldson Ot J96.02 ACUTE RESPIRATORY FAILURE WITH HYPERCAPN 09/24/2018 GELLENDER DO, DANITA Donaldson Ot M19.91 PRIMARY OSTEOARTHRITIS, UNSPECIFIED SITE 09/24/2018 GELLENDER DO, DANITA Donaldson Ot M54.9 DORSALGIA, UNSPECIFIED 09/24/2018 GELLENDER DO, DANITA Donaldson Ot M81.0 AGE-RELATED OSTEOPOROSIS W/O CURRENT PAT 09/24/2018 GELLENDER DO, DANITA Donaldson Ot N28.9 DISORDER OF KIDNEY AND URETER, UNSPECIFI 09/24/2018 GELLENDER DO, DANITA Donaldson Ot Z68.43 BODY MASS INDEX (BMI) 50-59.9, ADULT 09/24/2018 [facility], DANITA Donaldson Ot 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 09/24/2018 [facility], DANITA Donaldson Ot Z87.891 PERSONAL HISTORY OF NICOTINE DEPENDENCE 09/25/2018 [facility], DANITA Donaldson Ot E11.9 TYPE 2 DIABETES MELLITUS WITHOUT COMPLIC 09/25/2018 [facility] DANITA Donaldson Ot E66.2 MORBID (SEVERE) OBESITY WITH ALVEOLAR HY 09/25/2018 [facility], DANITA Donaldson Ot E78.00 PURE HYPERCHOLESTEROLEMIA, UNSPECIFIED 09/25/2018 [facility] , DANITA Donaldson Ot E87.5 HYPERKALEMIA 09/25/2018 [facility], DANITA Donaldson Ot F32.9 MAJOR DEPRESSIVE DISORDER, SINGLE EPISOD 09/25/2018 [facility], DANITA Donaldson Ot F41.9 ANXIETY DISORDER, UNSPECIFIED 09/25/2018 [facility], DANITA Donaldson Ot I11.0 HYPERTENSIVE HEART DISEASE WITH HEART FA 09/25/2018 [facility] , DANITA Donaldson Ot I25.10 ATHSCL HEART DISEASE OF [place] CORONARY 09/25/2018 [facility], DANITA Donaldson Ot I27.20 PULMONARY HYPERTENSION, UNSPECIFIED 09/25/2018 [facility] DANITA oDnaldson Ot I38 ENDOCARDITIS, VALVE UNSPECIFIED 09/25/2018 [facility], DANITA Donaldson Ot I50.9 HEART FAILURE, UNSPECIFIED 09/25/2018 [facility], DANITA Donaldson Ot J18.1 LOBAR PNEUMONIA, UNSPECIFIED ORGANISM 09/25/2018 [facility] DAN[facility] Ot J43.9 EMPHYSEMA, UNSPECIFIED 09/25/2018 [facility] DODANITA Ot J96.01 ACUTE RESPIRATORY FAILURE WITH HYPOXIA 09/25/2018 [facility], DANITA Donaldson Ot J96.02 ACUTE RESPIRATORY FAILURE WITH HYPERCAPN 09/25/2018 [facility] DANITA Donaldson Ot M19.91 PRIMARY OSTEOARTHRITIS, UNSPECIFIED SITE 09/25/2018 [facility] D[facility] Ot M54.9 DORSALGIA, UNSPECIFIED 09/25/2018 [facility] D[facility] Ot M81.0 AGE-RELATED OSTEOPOROSIS W/O CURRENT PAT 09/25/2018 GELLEND[facility] DO, DANITA Donaldson Ot N28.9 DISORDER OF KIDNEY AND URETER, UNSPECIFI 09/25/2018 GELLENDER DO, ADNITA Donaldson Ot Z68.43 BODY MASS INDEX (BMI) 50-59.9, ADULT 09/25/2018 GELLEND[facility] DO, DANITA Donaldson Ot 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 09/25/2018 [facility]KEY[facility]END[facility] DO, DANITA Donaldson Ot Z87.891 PERSONAL HISTORY OF NICOTINE DEPENDENCE 09/25/2018 [facility], DANITA Donaldson Ot E11.9 TYPE 2 DIABETES MELLITUS WITHOUT COMPLIC 09/25/2018 GELLEND[facility] DO, DANITA Donaldson Ot E66.2 MORBID (SEVERE) OBESITY WITH ALVEOLAR HY 09/25/2018 GELLENDER DO, DANITA Donaldson Ot E78.00 PURE HYPERCHOLESTEROLEMIA, UNSPECIFIED 09/25/2018 GELLENDER DO, DANITA Donaldson Ot E87.5 HYPERKALEMIA 09/25/2018 [facility] DOD[facility] Ot F32.9 MAJOR DEPRESSIVE DISORDER, SINGLE EPISOD 09/25/2018 GELLEND[facility] DO, DANITA Donaldson Ot F41.9 ANXIETY DISORDER, UNSPECIFIED 09/25/2018 GELLENDER DO, DANITA Donaldson Ot I11.0 HYPERTENSIVE HEART DISEASE WITH HEART FA 09/25/2018 [facility] DOD[facility] Ot I25.10 ATHSCL HEART DISEASE OF [place] CORONARY 09/25/2018 [facility], DANITA Donaldson Ot I27.20 PULMONARY HYPERTENSION, UNSPECIFIED 09/25/2018 GELLEND[facility] DO, DANITA Donaldson Ot I38 ENDOCARDITIS, VALVE UNSPECIFIED 09/25/2018 GELLEND[facility] DO, DANITA Donaldson Ot I50.9 HEART FAILURE, UNSPECIFIED 09/25/2018 GELLENDER DO, DANITA Donaldson Ot J18.1 LOBAR PNEUMONIA, UNSPECIFIED ORGANISM 09/25/2018 GELLENDER DODANITA Ot J43.9 EMPHYSEMA, UNSPECIFIED 09/25/2018 GELLENDER DODANITA Ot J96.01 ACUTE RESPIRATORY FAILURE WITH HYPOXIA 09/25/2018 GELLEND[facility] DO, DANITA Donaldson Ot J96.02 ACUTE RESPIRATORY FAILURE WITH HYPERCAPN 09/25/2018 GELLEND[facility] DO, DANITA Donaldson Ot M19.91 PRIMARY OSTEOARTHRITIS, UNSPECIFIED SITE 09/25/2018 GELLENDER DODANITA Ot M54.9 DORSALGIA, UNSPECIFIED 09/25/2018 GELLENDER DO, DANITA Donaldson Ot M81.0 AGE-RELATED OSTEOPOROSIS W/O CURRENT PAT 09/25/2018 GELLENDER DO, DANITA Donaldson Ot N28.9 DISORDER OF KIDNEY AND URETER, UNSPECIFI 09/25/2018 GELLEND[facility] DO, DANITA Donaldson Ot Z68.43 BODY MASS INDEX (BMI) 50-59.9, ADULT 09/25/2018 GELLEND[facility] DO, DANITA Donaldson Ot 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 09/25/2018 [facility], DANITA Donaldson Ot Z87.891 PERSONAL HISTORY OF NICOTINE DEPENDENCE 09/25/2018 [facility], DANITA Donaldson Ot E11.9 TYPE 2 DIABETES MELLITUS WITHOUT COMPLIC 09/25/2018 GELLEND[facility] DO, DANITA Donaldson Ot E66.2 MORBID (SEVERE) OBESITY WITH ALVEOLAR HY 09/25/2018 [facility], DANITA Donaldson Ot E78.00 PURE HYPERCHOLESTEROLEMIA, UNSPECIFIED 09/25/2018 GELLEND[facility] DO, DANITA Donaldson Ot E87.5 HYPERKALEMIA 09/25/2018 [facility], DANITA Donaldson Ot F32.9 MAJOR DEPRESSIVE DISORDER, SINGLE EPISOD 09/25/2018 [facility] DO, DANITA Donaldson Ot F41.9 ANXIETY DISORDER, UNSPECIFIED 09/25/2018 GELLEND[facility] DO, DANITA Donaldson Ot I11.0 HYPERTENSIVE HEART DISEASE WITH HEART FA 09/25/2018 [facility] , DANITA Donaldson Ot I25.10 ATHSCL HEART DISEASE OF [place] CORONARY 09/25/2018 [facility] DANITA Donaldson Ot I27.20 PULMONARY HYPERTENSION, UNSPECIFIED 09/25/2018 GELLEND[facility] DO, DANITA Donaldson Ot I38 ENDOCARDITIS, VALVE UNSPECIFIED 09/25/2018 GELLEND[facility] DO, DANITA Donaldson Ot I49.1 ATRIAL PREMATURE DEPOLARIZATION 09/25/2018 [facility] DANITA Donaldson Ot I50.30 UNSPECIFIED DIASTOLIC (CONGESTIVE) HEART 09/25/2018 [facility], DANITA Donaldson Ot I50.9 HEART FAILURE, UNSPECIFIED 09/25/2018 GELLENDER DO, DANITA Donaldson Ot J13 PNEUMONIA DUE TO STREPTOCOCCUS PNEUMONIA 09/25/2018 [facility], DANITA Donaldson Ot J18.1 LOBAR PNEUMONIA, UNSPECIFIED ORGANISM 09/25/2018 [facility] DOD[facility] Ot J43.9 EMPHYSEMA, UNSPECIFIED 09/25/2018 GELLEND[facility] DO, DANITA Donaldson Ot J96.01 ACUTE RESPIRATORY FAILURE WITH HYPOXIA 09/25/2018 GELLEND[facility] DO, DANITA Anika Ot J96.02 ACUTE RESPIRATORY FAILURE WITH HYPERCAPN 09/25/2018 GE[facility]END[facility] DO, DANITA Donaldson Ot M19.91 PRIMARY OSTEOARTHRITIS, UNSPECIFIED SITE 09/25/2018 GELLEND[facility] DO, DANITA Donaldson Ot M54.9 DORSALGIA, UNSPECIFIED 09/25/2018 GELLEND[facility] DO, DANITA Donaldson Ot M81.0 AGE-RELATED OSTEOPOROSIS W/O CURRENT PAT 09/25/2018 GELLEND[facility] DO, DANITA Donaldson Ot N17.9 ACUTE KIDNEY FAILURE, UNSPECIFIED 09/25/2018 GELLEND[facility] DO, DANITA Donaldson Ot N28.9 DISORDER OF KIDNEY AND URETER, UNSPECIFI 09/25/2018 GELLENDER DO, DANITA Anika Ot R00.1 BRADYCARDIA, UNSPECIFIED 09/25/2018 GELLENDER DO, DANITA Donaldson Ot 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 9 TYPE 2 DIABETES MELLITUS WITHOUT COMPLIC 11/02/2018 YRN HOOVER MD Ot E66. 01 MORBID (SEVERE) OBESITY DUE TO EXCESS CA 11/02/2018 YRN HOOVER MD Ot E78. 00 PURE HYPERCHOLESTEROLEMIA, UNSPECIFIED 11/02/2018 YRN HOOVER MD Ot F32. 9 MAJOR DEPRESSIVE DISORDER, SINGLE EPISOD 11/02/2018 YRN HOOVER MD Ot F41. 9 ANXIETY DISORDER, UNSPECIFIED 11/02/2018 YRN HOOVER MD Ot I11. 0 HYPERTENSIVE HEART DISEASE WITH HEART FA 11/02/2018 YRN HOOVER MD Ot I25. 10 ATHSCL HEART DISEASE OF [place] CORONARY 11/02/2018 YRN HOOVER MD Ot I50. 9 HEART FAILURE, UNSPECIFIED 11/02/2018 YRN HOOVER MD Ot J44. 1 CHRONIC OBSTRUCTIVE PULMONARY DISEASE W 11/02/2018 YRN HOOVER MD Ot M81. 0 AGE-RELATED OSTEOPOROSIS W/O CURRENT PAT 11/02/2018 YRN HOOVER MD Ot R06. 02 SHORTNESS OF BREATH 11/02/2018 YRN HOOVER MD Ot Z68. 42 BODY MASS INDEX (BMI) 45.0-49.9, ADULT 11/02/2018 YRN HOOVER MD Ot Z79. 51 CRAFT WORKER (CURRENT) USE OF INHALED STERO 11/02/2018 YRN HOOVER MD Ot Z80. 1 FAMILY HISTORY OF MALIG NEOPLASM OF [place] 11/02/2018 YRN HOOVER MD Ot Z82. 49 FAMILY HX OF ISCHEM HEART DIS AND OTH DI 11/02/2018 YRN HOOVER MD Ot Z87. 01 PERSONAL HISTORY OF PNEUMONIA (RECURRENT 11/02/2018 YRN HOOVER MD Ot Z87. 19 PERSONAL HISTORY OF OTHER DISEASES OF TH 11/02/2018 YRN HOOVER MD Ot Z87.891 PERSONAL HISTORY OF NICOTINE DEPENDENCE 11/02/2018 YRN HOOVER MD Ot Z88. 1 ALLERGY STATUS TO OTHER ANTIBIOTIC AGENT 11/02/2018 YRN HOOVER MD Ot Z95. 9 PRESENCE OF CARDIAC AND VASCULAR IMPLANT 11/02/2018 YRN HOOVER MD Ot Z98. 52 VASECTOMY STATUS 11/02/2018 YRN HOOVER MD Ot Z98.890 OTHER SPECIFIED POSTPROCEDURAL STATES 11/02/2018 JERMAIN TEJEDA MD Ot 722. 52 LUMB/LUMBOSAC DISC DEGEN 11/02/2018 JERMAIN TEJEDA MD Ot 737. 30 IDIOPATHIC SCOLIOSIS 11/02/2018 JIA MCPHERSON MD Ot 706.2 SEBACEOUS CYST 11/02/2018 JIA MCPHERSON MD Ot V72.84 EXAM PRE-OPERATIVE NOS 11/02/2018 ISAIASDER DODANITA Ot 611.72 LUMP OR MASS IN BREAST 11/02/2018 DANITA TEE DO Ot 611.1 HYPERTROPHY OF BREAST 11/02/2018 DANITA TEE DO Ot R92.8 OTH ABN AND INCONCLUSIVE FINDINGS ON DX 11/02/2018 JERMAIN TEJEDA MD Ot M25.552 PAIN IN LEFT HIP 11/02/2018 NIKHIL RIDDLE, JERMAIN Smith Ot M54. 5 LOW BACK PAIN 11/02/2018 NAY SAWYER, DANITA Anika Ot E11.9 TYPE 2 DIABETES MELLITUS WITHOUT COMPLIC 11/06/2018 SNEHA RIDDLE, YRN Varghese Ot E11. 9 TYPE 2 DIABETES MELLITUS WITHOUT COMPLIC 11/06/2018 SNEHA RIDDLE, YRN Varghese Ot E66. 01 MORBID (SEVERE) OBESITY DUE TO EXCESS CA 11/06/2018 SNEHA RIDDLE, YRN Varghese Ot E78. 00 PURE HYPERCHOLESTEROLEMIA, UNSPECIFIED 11/06/2018 SNEHA RIDDLE, YRN Varghese Ot F32. 9 MAJOR DEPRESSIVE DISORDER, SINGLE EPISOD 11/06/2018 SNEHA RIDDLE, YRN Varghese Ot F41. 9 ANXIETY DISORDER, UNSPECIFIED 11/06/2018 YRN HOOVER MD Ot I11. 0 HYPERTENSIVE HEART DISEASE WITH HEART FA 11/06/2018 YRN HOOVER MD Ot I25. 10 ATHSCL HEART DISEASE OF [place] CORONARY 11/06/2018 YRN HOOVER MD Ot I50. 9 HEART FAILURE, UNSPECIFIED 11/06/2018 YRN HOOVER MD Ot J44. 1 CHRONIC OBSTRUCTIVE PULMONARY DISEASE W 11/06/2018 YRN HOOVER MD Ot M81. 0 AGE-RELATED OSTEOPOROSIS W/O CURRENT PAT 11/06/2018 YRN HOOVER MD Ot R06. 02 SHORTNESS OF BREATH 11/06/2018 YRN HOOVER MD Ot Z68. 42 BODY MASS INDEX (BMI) 45.0-49.9, ADULT 11/06/2018 YRN HOOVER MD Ot Z79. 51 CRAFT WORKER (CURRENT) USE OF INHALED STERO 11/06/2018 YRN HOOVER MD Ot Z80. 1 FAMILY HISTORY OF MALIG NEOPLASM OF [place] 11/06/2018 YRN HOOVER MD Ot Z82. 49 FAMILY HX OF ISCHEM HEART DIS AND OTH DI 11/06/2018 YRN HOOVER MD Ot Z87. 01 PERSONAL HISTORY OF PNEUMONIA (RECURRENT 11/06/2018 YRN HOOVER MD Ot Z87. 19 PERSONAL HISTORY OF OTHER DISEASES OF TH 11/06/2018 YRN HOOVER MD Ot Z87.891 PERSONAL HISTORY OF NICOTINE DEPENDENCE 11/06/2018 YRN HOOVER MD Ot Z88. 1 ALLERGY STATUS TO OTHER ANTIBIOTIC AGENT 11/06/2018 SNEHA RIDDLE, YRN Varghese Ot Z95. 9 PRESENCE OF CARDIAC AND VASCULAR IMPLANT 11/06/2018 SNEHA RIDDLE, YRN Varghese Ot Z98. 52 VASECTOMY STATUS 11/06/2018 SNEHA RIDDLE, YRN Varghese Ot Z98.890 OTHER SPECIFIED POSTPROCEDURAL STATES 01/08/2019 NAY SAWYER, DANITA Donaldson Ot D64.9 ANEMIA, UNSPECIFIED 01/08/2019 [facility], DANITA Donaldson Ot E11.9 TYPE 2 DIABETES MELLITUS WITHOUT COMPLIC 01/08/2019 MIKEYLENDER DODANITA Ot E66.2 MORBID (SEVERE) OBESITY WITH ALVEOLAR HY 01/08/2019 ISAIASDER DODANITA Ot E78.00 PURE HYPERCHOLESTEROLEMIA, UNSPECIFIED 01/08/2019 [facility] D[facility] Ot E87.70 FLUID OVERLOAD, UNSPECIFIED 01/08/2019 [facility] DANITA Ot F32.9 MAJOR DEPRESSIVE DISORDER, SINGLE EPISOD 01/08/2019 NAY DANITA Ot F41.9 ANXIETY DISORDER, UNSPECIFIED 01/08/2019 [facility] Ot I12.9 HYPERTENSIVE CHRONIC KIDNEY DISEASE W ST 01/08/2019 NAY SAWYERDANITA Ot I25.10 ATHSCL HEART DISEASE OF [place] CORONARY 01/08/2019 [facility] Ot I27.20 PULMONARY HYPERTENSION, UNSPECIFIED 01/08/2019 [facility] Ot I87.8 OTHER SPECIFIED DISORDERS OF VEINS 01/08/2019 [facility] Ot J18.9 PNEUMONIA, UNSPECIFIED ORGANISM 01/08/2019 [facility] Ot J44.1 CHRONIC OBSTRUCTIVE PULMONARY DISEASE W 01/08/2019 MIKEYLENDER DANITA Ot J81.1 CHRONIC PULMONARY EDEMA 01/08/2019 [facility] Ot J96.22 ACUTE AND CHRONIC RESPIRATORY FAILURE [place] 01/08/2019 NAY SAWYERDANITA Ot M54.9 DORSALGIA, UNSPECIFIED 01/08/2019 [facility]KEY[facility]ENDER DANITA Ot M62.838 OTHER MUSCLE SPASM 01/08/2019 NAY SAWYERDANITA Ot M81.0 AGE-RELATED OSTEOPOROSIS W/O CURRENT PAT 01/08/2019 NAY DODANITA Ot N18.2 CHRONIC KIDNEY DISEASE, STAGE 2 (MILD) 01/08/2019 GELLENDER DO, DANITA Donaldson Ot R29.6 REPEATED FALLS 01/08/2019 GELLENDER DO, DANITA Donaldson Ot Z79.899 OTHER CRAFT WORKER (CURRENT) DRUG THERAPY 01/08/2019 GELLENDER DO, DANITA Donaldson Ot Z86.79 PERSONAL HISTORY OF OTHER DISEASES OF TH 01/08/2019 MIKEYLENDER DO, DANITA Donaldson Ot Z87.891 PERSONAL HISTORY OF NICOTINE DEPENDENCE 01/08/2019 GELLENDER DO, DANITA Donaldson Ot Z99.81 DEPENDENCE ON SUPPLEMENTAL OXYGEN 01/08/2019 GELLENDER DO, DANITA Donaldson Ot D64.9 ANEMIA, UNSPECIFIED 01/08/2019 GELLENDER DO, DANITA Donaldson Ot E11.9 TYPE 2 DIABETES MELLITUS WITHOUT COMPLIC 01/08/2019 GELLENDER DO, DANITA Donaldson Ot E66.2 MORBID (SEVERE) OBESITY WITH ALVEOLAR HY 01/08/2019 GELLENDER , DANITA Donaldson Ot E78.00 PURE HYPERCHOLESTEROLEMIA, UNSPECIFIED 01/08/2019 GELLENDER DO, DANITA Donaldson Ot E87.70 FLUID OVERLOAD, UNSPECIFIED 01/08/2019 GELLENDER DO, DANITA Donaldson Ot F32.9 MAJOR DEPRESSIVE DISORDER, SINGLE EPISOD 01/08/2019 GELDER DO, DANITA Donaldson Ot F41.9 ANXIETY DISORDER, UNSPECIFIED 01/08/2019 GELLENDER DODANITA Ot I12.9 HYPERTENSIVE CHRONIC KIDNEY DISEASE W ST 01/08/2019 GELLENDER DO, DANITA Donaldson Ot I13.0 HYP HRT CHR KDNY DIS W HRT FAIL AND ST 01/08/2019 GELLENDER DODANITA Ot I25.10 ATHSCL HEART DISEASE OF [place] CORONARY 01/08/2019 [facility] D[facility] I27.20 PULMONARY HYPERTENSION, UNSPECIFIED 01/08/2019 GELLENDER DODANITA Ot I50.9 HEART FAILURE, UNSPECIFIED 01/08/2019 GELLENDER DO, DANITA Donaldson Ot I87.8 OTHER SPECIFIED DISORDERS OF VEINS 01/08/2019 GELLENDER DO, DANITA Donaldson Ot J18.9 PNEUMONIA, UNSPECIFIED ORGANISM 01/08/2019 GELLENDER DODANITA Ot J44.1 CHRONIC OBSTRUCTIVE PULMONARY DISEASE W 01/08/2019 GELLENDER DODANITA Ot J81.1 CHRONIC PULMONARY EDEMA 01/08/2019 GELLENDER DODANITA Ot J96.21 ACUTE AND CHRONIC RESPIRATORY FAILURE [place] 01/08/2019 GELLENDER DO, DANITA Donaldson Ot J96.22 ACUTE AND CHRONIC RESPIRATORY FAILURE [place] 01/08/2019 GELLENDER DO, DANITA Donaldson Ot M54.9 DORSALGIA, UNSPECIFIED 01/08/2019 GELLENDER DO, DANITA Donaldson Ot M62.838 OTHER MUSCLE SPASM 01/08/2019 GELLENDER DO, DANITA Donaldson Ot M81.0 AGE-RELATED OSTEOPOROSIS W/O CURRENT PAT 01/08/2019 GELLENDER , DANITA Donaldson Ot N18.2 CHRONIC KIDNEY DISEASE, STAGE 2 (MILD) 01/08/2019 GELLENDER DO, DANITA Donaldson Ot R29.6 REPEATED FALLS 01/08/2019 [facility] 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 01/08/2019 GEL, DANITA Donaldson Ot Z79.899 OTHER PENITENTIARY (CURRENT) DRUG THERAPY 01/08/2019 GEL, DANITA Donaldson Ot Z86.79 PERSONAL HISTORY OF OTHER DISEASES OF TH 01/08/2019 [facility] D[facility] Ot Z87.891 PERSONAL HISTORY OF NICOTINE DEPENDENCE 01/08/2019 GELDER , DANITA Donaldson Ot Z99.81 DEPENDENCE ON SUPPLEMENTAL OXYGEN 04/07/2019 GEL, DANITA Donaldson Ot D64.9 ANEMIA, UNSPECIFIED 04/07/2019 GELLENDER , DANITA Donaldson Ot E11.9 TYPE 2 DIABETES MELLITUS WITHOUT COMPLIC 04/07/2019 GELLENDER , DANITA Donaldson Ot E66.01 MORBID (SEVERE) OBESITY DUE TO EXCESS CA 04/07/2019DER , DANITA Donaldson Ot E78.00 PURE HYPERCHOLESTEROLEMIA, UNSPECIFIED 04/07/2019 GELLENDER , DANITA Donaldson Ot E83.42 HYPOMAGNESEMIA 04/07/2019 GELLENDER DO, DANITA Donaldson Ot E87.6 HYPOKALEMIA 04/07/2019 GELLENDER DO, DANITA Donaldson Ot F32.9 MAJOR DEPRESSIVE DISORDER, SINGLE EPISOD 04/07/2019 GELDER , DANITA Donaldson Ot F41.9 ANXIETY DISORDER, UNSPECIFIED 04/07/2019 GELLENDER DO, DANITA Donaldson Ot G47.30 SLEEP APNEA, UNSPECIFIED 04/07/2019 GELLENDER DO, DANITA Donaldson Ot I11.0 HYPERTENSIVE HEART DISEASE WITH HEART FA 04/07/2019 GELLENDER , DANITA Donaldson Ot I25.10 ATHSCL HEART DISEASE OF [place] CORONARY 04/07/2019 NAY SAWYER, DANITA Donaldson Ot I38 ENDOCARDITIS, VALVE UNSPECIFIED 04/07/2019 NAY SAWYER, DANITA Donaldson Ot I50.9 HEART FAILURE, UNSPECIFIED 04/07/2019 NAY SAWYER, DANITA Donaldson Ot J18.1 LOBAR PNEUMONIA, UNSPECIFIED ORGANISM 04/07/2019 NAY SAWYER, DANITA Donaldson Ot J43.9 EMPHYSEMA, UNSPECIFIED 04/07/2019 NAY SAWYER, DANITA Donaldson Ot J96.21 ACUTE AND CHRONIC RESPIRATORY FAILURE [place] 04/07/2019 NAY SAWYER, DANITA Donaldson Ot J96.22 ACUTE AND CHRONIC RESPIRATORY FAILURE [place] 04/07/2019 NAY SAWYER, DANITA Donaldson Ot M81.0 AGE-RELATED OSTEOPOROSIS W/O CURRENT PAT 04/07/2019 NAY SAWYER, DANITA Donaldson Ot S49.92XA UNSP INJURY OF LEFT SHOULDER AND UPPER A 04/07/2019 NAY SAWYERDANITA Ot S80.12XA CONTUSION OF LEFT LOWER LEG, INITIAL ENC 04/07/2019 NAY SAWYERDANITA Ot S93.402A SPRAIN OF UNSPECIFIED LIGAMENT OF LEFT A 04/07/2019 NAY SAWYERDANITA Ot T24.132A BURN OF FIRST DEGREE OF LEFT LOWER LEG, 04/07/2019 NAY SAWYER, DANITA Donaldson Ot W18.09XA STRIKING AGAINST OTH OBJECT W SUBSEQUENT 04/07/2019 NAY SAWYERDANITA Ot X19.XXXA CONTACT WITH OTHER HEAT AND HOT SUBSTANC 04/07/2019 NAY SAWYERDANITA Ot Y92.[address] OF OCCURRENCE O 04/07/2019 NAY SAWYERDANITA Ot Z68.43 BODY MASS INDEX (BMI) 50-59.9, ADULT 04/07/2019 NAY SAWYER, DANITA Donaldson Ot Z87.01 PERSONAL HISTORY OF PNEUMONIA (RECURRENT 04/07/2019 NAY SAWYER, DANITA Donaldson Ot Z87.891 PERSONAL HISTORY OF NICOTINE DEPENDENCE 04/07/2019 NAY SAWYERDANITA Ot Z99.81 DEPENDENCE ON SUPPLEMENTAL OXYGEN 04/25/2019 NIKHIL RIDDLE, JERMAIN Smith Ot 722. 52 LUMB/LUMBOSAC DISC DEGEN 04/25/2019 NIKHIL RIDDLE, JERMAIN Smith Ot 737. 30 IDIOPATHIC SCOLIOSIS 04/25/2019 JIA MCPHERSON MD Ot 706.2 SEBACEOUS CYST 04/25/2019 JIA MCPHERSON MD Ot V72.84 EXAM PRE-OPERATIVE NOS 04/25/2019 DANITA TEE DO Ot 611.72 LUMP OR MASS IN BREAST 04/25/2019 DANITA TEE DO Ot 611.1 HYPERTROPHY OF BREAST 04/25/2019 DANITA TEE DO Ot R92.8 OTH ABN AND INCONCLUSIVE FINDINGS ON DX 04/25/2019 JERMAIN TEJEDA MD Ot M25.552 PAIN IN LEFT HIP 04/25/2019 JERMAIN TEJEDA MD Ot M54. 5 LOW BACK PAIN 04/25/2019 NAY SAWYER DANITA Anika Ot E11.9 TYPE 2 DIABETES MELLITUS WITHOUT COMPLIC 04/29/2019 DANITA TEE DO Ot M25.551 PAIN IN RIGHT HIP 04/29/2019 DANITA TEE DO Ot W19.XXXA UNSPECIFIED FALL, INITIAL ENCOUNTER 06/04/2019 ANY SAWYER DANITA Donaldson Ot M79.89 OTHER SPECIFIED SOFT TISSUE DISORDERS 06/04/2019 NAY SAWYERDANITA Ot M79.89 OTHER SPECIFIED SOFT TISSUE DISORDERS 06/25/2019 IVAN FONG MD Ot A41. 81 SEPSIS DUE TO ENTEROCOCCUS 06/25/2019 IVAN FONG MD Ot D64. 9 ANEMIA, UNSPECIFIED 06/25/2019 IVAN FONG MD Ot E11. 9 TYPE 2 DIABETES MELLITUS WITHOUT COMPLIC 06/25/2019 IVAN FONG MD Ot E66. 2 MORBID (SEVERE) OBESITY WITH ALVEOLAR HY 06/25/2019 IVAN FONG MD Ot E78. 00 PURE HYPERCHOLESTEROLEMIA, UNSPECIFIED 06/25/2019 IVAN FONG MD Ot F32. 9 MAJOR DEPRESSIVE DISORDER, SINGLE EPISOD 06/25/2019 IVAN FONG MD Ot F41. 9 ANXIETY DISORDER, UNSPECIFIED 06/25/2019 IVAN FONG MD Ot I11. 0 HYPERTENSIVE HEART DISEASE WITH HEART FA 06/25/2019 IVAN FONG MD Ot I25. 10 ATHSCL HEART DISEASE OF [place] CORONARY 06/25/2019 IVAN FONG MD Ot I27. 20 PULMONARY HYPERTENSION, UNSPECIFIED 06/25/2019 IVAN FONG MD Ot I48. 0 PAROXYSMAL ATRIAL FIBRILLATION 06/25/2019 IVAN FONG MD, Ot I50. 33 ACUTE ON CHRONIC DIASTOLIC (CONGESTIVE) 06/25/2019 IVAN FONG MD, Ot J18. 1 LOBAR PNEUMONIA, UNSPECIFIED ORGANISM 06/25/2019 IVAN FONG MD, Ot J43. 9 EMPHYSEMA, UNSPECIFIED 06/25/2019 IVAN FONG MD, Ot J96. 01 ACUTE RESPIRATORY FAILURE WITH HYPOXIA 06/25/2019 IVAN FONG MD, Ot M19. 91 PRIMARY OSTEOARTHRITIS, UNSPECIFIED SITE 06/25/2019 IVAN FONG MD, Ot M54. 9 DORSALGIA, UNSPECIFIED 06/25/2019 IVAN FONG MD, Ot M81. 0 AGE-RELATED OSTEOPOROSIS W/O CURRENT PAT 06/25/2019 IVAN FONG MD, Ot N17. 9 ACUTE KIDNEY FAILURE, UNSPECIFIED 06/25/2019 IVAN FONG MD Ot R65. 20 SEVERE SEPSIS WITHOUT SEPTIC SHOCK 06/25/2019 IVAN FONG MD Ot S46.012S STRAIN OF MUSC/TEND THE ROTATOR CUFF OF 06/25/2019 IVAN FONG MD Ot Z68. 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 81 SEPSIS DUE TO ENTEROCOCCUS 06/26/2019 IVAN FONG MD Ot D64. 9 ANEMIA, UNSPECIFIED 06/26/2019 IVAN FONG MD Ot E11. 9 TYPE 2 DIABETES MELLITUS WITHOUT COMPLIC 06/26/2019 IVAN FONG MD Ot E66. 2 MORBID (SEVERE) OBESITY WITH ALVEOLAR HY 06/26/2019 IVAN FONG MD Ot E78. 00 PURE HYPERCHOLESTEROLEMIA, UNSPECIFIED 06/26/2019 IVAN FONG MD Ot F32. 9 MAJOR DEPRESSIVE DISORDER, SINGLE EPISOD 06/26/2019 IVAN FONG MD Ot F41. 9 ANXIETY DISORDER, UNSPECIFIED 06/26/2019 IVAN FONG MD Ot I11. 0 HYPERTENSIVE HEART DISEASE WITH HEART FA 06/26/2019 IVAN FONG MD, Ot I25. 10 ATHSCL HEART DISEASE OF [place] CORONARY 06/26/2019 IVAN FONG MD, Ot I27. 20 PULMONARY HYPERTENSION, UNSPECIFIED 06/26/2019 IVAN FONG MD, Ot I48. 0 PAROXYSMAL ATRIAL FIBRILLATION 06/26/2019 IVAN FONG MD, Ot I50. 33 ACUTE ON CHRONIC DIASTOLIC (CONGESTIVE) 06/26/2019 IVAN FONG MD, Ot J18. 1 LOBAR PNEUMONIA, UNSPECIFIED ORGANISM 06/26/2019 IVAN FONG MD, Ot J43. 9 EMPHYSEMA, UNSPECIFIED 06/26/2019 IVAN FONG MD, Ot J96. 01 ACUTE RESPIRATORY FAILURE WITH HYPOXIA 06/26/2019 IVAN FONG MD, Ot M19. 91 PRIMARY OSTEOARTHRITIS, UNSPECIFIED SITE 06/26/2019 IVAN FONG MD, Ot M54. 9 DORSALGIA, UNSPECIFIED 06/26/2019 IVAN FONG MD, Ot M81. 0 AGE-RELATED OSTEOPOROSIS W/O CURRENT PAT 06/26/2019 IVAN FONG MD, Ot N17. 9 ACUTE KIDNEY FAILURE, UNSPECIFIED 06/26/2019 IVAN FONG MD, Ot R65. 20 SEVERE SEPSIS WITHOUT SEPTIC SHOCK 06/26/2019 IVAN FONG MD, Ot S46.012S STRAIN OF MUSC/TEND THE ROTATOR CUFF OF 06/26/2019 IVAN FONG MD, Ot Z68. 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 81 SEPSIS DUE TO ENTEROCOCCUS 06/27/2019 IVAN FONG MD, Ot D64. 9 ANEMIA, UNSPECIFIED 06/27/2019 IVAN FONG MD, Ot E11. 9 TYPE 2 DIABETES MELLITUS WITHOUT COMPLIC 06/27/2019 IVAN FONG MD, Ot E66. 2 MORBID (SEVERE) OBESITY WITH ALVEOLAR HY 06/27/2019 IVAN FONG MD, Ot E78. 00 PURE HYPERCHOLESTEROLEMIA, UNSPECIFIED 06/27/2019 IVAN FONG MD, Ot F32. 9 MAJOR DEPRESSIVE DISORDER, SINGLE EPISOD 06/27/2019 IVAN FONG MD, Ot F41. 9 ANXIETY DISORDER, UNSPECIFIED 06/27/2019 IVAN FONG MD, Ot I11. 0 HYPERTENSIVE HEART DISEASE WITH HEART FA 06/27/2019 IVAN FONG MD, Ot I25. 10 ATHSCL HEART DISEASE OF [place] CORONARY 06/27/2019 IVAN FONG MD, Ot I27. 20 PULMONARY HYPERTENSION, UNSPECIFIED 06/27/2019 IVAN FONG MD, Ot I48. 0 PAROXYSMAL ATRIAL FIBRILLATION 06/27/2019 IVAN FONG MD Ot I50. 33 ACUTE ON CHRONIC DIASTOLIC (CONGESTIVE) 06/27/2019 IVAN FONG MD, Ot J18. 1 LOBAR PNEUMONIA, UNSPECIFIED ORGANISM 06/27/2019 IVAN FONG MD, Ot J43. 9 EMPHYSEMA, UNSPECIFIED 06/27/2019 IVAN FONG MD, Ot J96. 01 ACUTE RESPIRATORY FAILURE WITH HYPOXIA 06/27/2019 IVAN FONG MD Ot M19. 91 PRIMARY OSTEOARTHRITIS, UNSPECIFIED SITE 06/27/2019 IVAN FONG MD, Ot M54. 9 DORSALGIA, UNSPECIFIED 06/27/2019 IVAN FONG MD, Ot M81. 0 AGE-RELATED OSTEOPOROSIS W/O CURRENT PAT 06/27/2019 IVAN FONG MD, Ot N17. 9 ACUTE KIDNEY FAILURE, UNSPECIFIED 06/27/2019 IVAN FONG MD Ot R65. 20 SEVERE SEPSIS WITHOUT SEPTIC SHOCK 06/27/2019 IVAN FONG MD, Ot S46.012S STRAIN OF MUSC/TEND THE ROTATOR CUFF OF 06/27/2019 IVAN FONG MD Ot Z68. 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 81 SEPSIS DUE TO ENTEROCOCCUS 06/29/2019 IVAN FONG MD, Ot D64. 9 ANEMIA, UNSPECIFIED 06/29/2019 IVAN FONG MD Ot E11. 9 TYPE 2 DIABETES MELLITUS WITHOUT COMPLIC 06/29/2019 IVAN FONG MD, Ot E66. 2 MORBID (SEVERE) OBESITY WITH ALVEOLAR HY 06/29/2019 IVAN FONG MD, Ot E78. 00 PURE HYPERCHOLESTEROLEMIA, UNSPECIFIED 06/29/2019 IVAN FONG MD, Ot F32. 9 MAJOR DEPRESSIVE DISORDER, SINGLE EPISOD 06/29/2019 IVAN FONG MD, Ot F41. 9 ANXIETY DISORDER, UNSPECIFIED 06/29/2019 IVAN FONG MD, Ot I11. 0 HYPERTENSIVE HEART DISEASE WITH HEART FA 06/29/2019 IVAN FONG MD, Ot I25. 10 ATHSCL HEART DISEASE OF [place] CORONARY 06/29/2019 IVAN FONG MD, Ot I27. 20 PULMONARY HYPERTENSION, UNSPECIFIED 06/29/2019 IVAN FONG MD, Ot I48. 0 PAROXYSMAL ATRIAL FIBRILLATION 06/29/2019 IVAN FONG MD, Ot I50. 33 ACUTE ON CHRONIC DIASTOLIC (CONGESTIVE) 06/29/2019 IVAN FONG MD, Ot J18. 1 LOBAR PNEUMONIA, UNSPECIFIED ORGANISM 06/29/2019 IVAN FONG MD, Ot J43. 9 EMPHYSEMA, UNSPECIFIED 06/29/2019 IVAN FONG MD, Ot J96. 01 ACUTE RESPIRATORY FAILURE WITH HYPOXIA 06/29/2019 IVAN FONG MD Ot M19. 91 PRIMARY OSTEOARTHRITIS, UNSPECIFIED SITE 06/29/2019 IVAN FONG MD, Ot M54. 9 DORSALGIA, UNSPECIFIED 06/29/2019 IVAN FONG MD Ot M81. 0 AGE-RELATED OSTEOPOROSIS W/O CURRENT PAT 06/29/2019 IVAN FONG MD Ot N17. 9 ACUTE KIDNEY FAILURE, UNSPECIFIED 06/29/2019 IVAN FONG MD, Ot R65. 20 SEVERE SEPSIS WITHOUT SEPTIC SHOCK 06/29/2019 IVAN FONG MD, Ot S46.012S STRAIN OF MUSC/TEND THE ROTATOR CUFF OF 06/29/2019 IVAN FONG MD, Ot Z68. 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 81 SEPSIS DUE TO ENTEROCOCCUS 06/29/2019 IVAN FONG MD, Ot D64. 9 ANEMIA, UNSPECIFIED 06/29/2019 IVAN FONG MD Ot E11. 9 TYPE 2 DIABETES MELLITUS WITHOUT COMPLIC 06/29/2019 IVAN FONG MD Ot E66. 2 MORBID (SEVERE) OBESITY WITH ALVEOLAR HY 06/29/2019 IVAN FONG MD Ot E78. 00 PURE HYPERCHOLESTEROLEMIA, UNSPECIFIED 06/29/2019 IVAN FONG MD Ot F32. 9 MAJOR DEPRESSIVE DISORDER, SINGLE EPISOD 06/29/2019 IVAN FONG MD Ot F41. 9 ANXIETY DISORDER, UNSPECIFIED 06/29/2019 IVAN FONG MD Ot I11. 0 HYPERTENSIVE HEART DISEASE WITH HEART FA 06/29/2019 IVAN FONG MD Ot I25. 10 ATHSCL HEART DISEASE OF [place] CORONARY 06/29/2019 IVAN FONG MD Ot I27. 20 PULMONARY HYPERTENSION, UNSPECIFIED 06/29/2019 IVAN FONG MD Ot I48. 0 PAROXYSMAL ATRIAL FIBRILLATION 06/29/2019 IVAN FONG MD Ot I50. 33 ACUTE ON CHRONIC DIASTOLIC (CONGESTIVE) 06/29/2019 IVAN FONG MD Ot J18. 1 LOBAR PNEUMONIA, UNSPECIFIED ORGANISM 06/29/2019 IVAN FONG MD Ot J43. 9 EMPHYSEMA, UNSPECIFIED 06/29/2019 IVAN FONG MD Ot J96. 01 ACUTE RESPIRATORY FAILURE WITH HYPOXIA 06/29/2019 IVAN FONG MD Ot M19. 91 PRIMARY OSTEOARTHRITIS, UNSPECIFIED SITE 06/29/2019 IVAN FONG MD Ot M54. 9 DORSALGIA, UNSPECIFIED 06/29/2019 IVAN FONG MD Ot M81. 0 AGE-RELATED OSTEOPOROSIS W/O CURRENT PAT 06/29/2019 IVAN FONG MD Ot N17. 9 ACUTE KIDNEY FAILURE, UNSPECIFIED 06/29/2019 IVAN FONG MD Ot R65. 20 SEVERE SEPSIS WITHOUT SEPTIC SHOCK 06/29/2019 IVAN FONG MD, Ot S46.012S STRAIN OF MUSC/TEND THE ROTATOR CUFF OF 06/29/2019 IVAN FONG MD, Ot Z68. 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 81 SEPSIS DUE TO ENTEROCOCCUS 06/30/2019 IVAN FONG MD, Ot D64. 9 ANEMIA, UNSPECIFIED 06/30/2019 IVAN FONG MD, Ot E11. 9 TYPE 2 DIABETES MELLITUS WITHOUT COMPLIC 06/30/2019 IVAN FONG MD, Ot E66. 2 MORBID (SEVERE) OBESITY WITH ALVEOLAR HY 06/30/2019 IVAN FONG MD, Ot E78. 00 PURE HYPERCHOLESTEROLEMIA, UNSPECIFIED 06/30/2019 IVAN FONG MD, Ot F32. 9 MAJOR DEPRESSIVE DISORDER, SINGLE EPISOD 06/30/2019 IVAN FONG MD, Ot F41. 9 ANXIETY DISORDER, UNSPECIFIED 06/30/2019 IVAN FONG MD, Ot I11. 0 HYPERTENSIVE HEART DISEASE WITH HEART FA 06/30/2019 IVAN FONG MD, Ot I25. 10 ATHSCL HEART DISEASE OF [place] CORONARY 06/30/2019 IVAN FONG MD, Ot I27. 20 PULMONARY HYPERTENSION, UNSPECIFIED 06/30/2019 IVAN FONG MD, Ot I48. 0 PAROXYSMAL ATRIAL FIBRILLATION 06/30/2019 IVAN FONG MD, Ot I50. 33 ACUTE ON CHRONIC DIASTOLIC (CONGESTIVE) 06/30/2019 IVAN FONG MD, Ot J18. 1 LOBAR PNEUMONIA, UNSPECIFIED ORGANISM 06/30/2019 IVAN FONG MD, Ot J43. 9 EMPHYSEMA, UNSPECIFIED 06/30/2019 IVAN FONG MD, Ot J96. 01 ACUTE RESPIRATORY FAILURE WITH HYPOXIA 06/30/2019 IVAN FONG MD, Ot M19. 91 PRIMARY OSTEOARTHRITIS, UNSPECIFIED SITE 06/30/2019 IVAN FONG MD, Ot M54. 9 DORSALGIA, UNSPECIFIED 06/30/2019 IVAN FONG MD, Ot M81. 0 AGE-RELATED OSTEOPOROSIS W/O CURRENT PAT 06/30/2019 IVAN FONG MD, Ot N17. 9 ACUTE KIDNEY FAILURE, UNSPECIFIED 06/30/2019 IVAN FONG MD, Ot R65. 20 SEVERE SEPSIS WITHOUT SEPTIC SHOCK 06/30/2019 IVAN FONG MD, Ot S46.012S STRAIN OF MUSC/TEND THE ROTATOR CUFF OF 06/30/2019 IVAN FONG MD, Ot Z68. 42 BODY MASS INDEX (BMI) 45.0-49.9, ADULT 06/30/2019 IVAN FONG MD, Ot Z79.891 PENITENTIARY (CURRENT) USE OF OPIATE ANALGE 06/30/2019 IVAN FONG MD, Ot Z87.891 PERSONAL HISTORY OF NICOTINE DEPENDENCE 06/30/2019 IVAN FONG MD, Ot A41. 81 SEPSIS DUE TO ENTEROCOCCUS 06/30/2019 IVAN FONG MD, Ot D64. 9 ANEMIA, UNSPECIFIED 06/30/2019 IVAN FONG MD, Ot E11. 9 TYPE 2 DIABETES MELLITUS WITHOUT COMPLIC 06/30/2019 IVAN FONG MD, Ot E66. 2 MORBID (SEVERE) OBESITY WITH ALVEOLAR HY 06/30/2019 IVAN FONG MD, Ot E78. 00 PURE HYPERCHOLESTEROLEMIA, UNSPECIFIED 06/30/2019 IVAN FONG MD, Ot F32. 9 MAJOR DEPRESSIVE DISORDER, SINGLE EPISOD 06/30/2019 IVAN FONG MD, Ot F41. 9 ANXIETY DISORDER, UNSPECIFIED 06/30/2019 IVAN FONG MD Ot I11. 0 HYPERTENSIVE HEART DISEASE WITH HEART FA 06/30/2019 IVAN FONG MD, Ot I25. 10 ATHSCL HEART DISEASE OF [place] CORONARY 06/30/2019 IVAN FONG MD, Ot I27. 20 PULMONARY HYPERTENSION, UNSPECIFIED 06/30/2019 IVAN FONG MD Ot I48. 0 PAROXYSMAL ATRIAL FIBRILLATION 06/30/2019 IVAN FONG MD, Ot I50. 33 ACUTE ON CHRONIC DIASTOLIC (CONGESTIVE) 06/30/2019 IVAN FONG MD, Ot J18. 1 LOBAR PNEUMONIA, UNSPECIFIED ORGANISM 06/30/2019 IVAN FONG MD, Ot J43. 9 EMPHYSEMA, UNSPECIFIED 06/30/2019 IVAN FONG MD, Ot J96. 01 ACUTE RESPIRATORY FAILURE WITH HYPOXIA 06/30/2019 IVAN FONG MD, Ot M19. 91 PRIMARY OSTEOARTHRITIS, UNSPECIFIED SITE 06/30/2019 IVAN FONG MD, Ot M54. 9 DORSALGIA, UNSPECIFIED 06/30/2019 IVAN FONG MD, Ot M81. 0 AGE-RELATED OSTEOPOROSIS W/O CURRENT PAT 06/30/2019 IVNA FONG MD, Ot N17. 9 ACUTE KIDNEY FAILURE, UNSPECIFIED 06/30/2019 IVAN FONG MD, Ot R65. 20 SEVERE SEPSIS WITHOUT SEPTIC SHOCK 06/30/2019 IVAN FONG MD, Ot S46.012S STRAIN OF MUSC/TEND THE ROTATOR CUFF OF 06/30/2019 IVAN FONG MD, Ot Z68. 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 81 SEPSIS DUE TO ENTEROCOCCUS 07/01/2019 IVAN FONG MD, Ot D64. 9 ANEMIA, UNSPECIFIED 07/01/2019 IVAN FONG MD, Ot E11. 9 TYPE 2 DIABETES MELLITUS WITHOUT COMPLIC 07/01/2019 IVAN FONG MD, Ot E66. 2 MORBID (SEVERE) OBESITY WITH ALVEOLAR HY 07/01/2019 IVAN FONG MD, Ot E78. 00 PURE HYPERCHOLESTEROLEMIA, UNSPECIFIED 07/01/2019 IVAN FONG MD, Ot F32. 9 MAJOR DEPRESSIVE DISORDER, SINGLE EPISOD 07/01/2019 IVAN FONG MD, Ot F41. 9 ANXIETY DISORDER, UNSPECIFIED 07/01/2019 IVAN FONG MD, Ot I11. 0 HYPERTENSIVE HEART DISEASE WITH HEART FA 07/01/2019 IVAN FONG MD, Ot I25. 10 ATHSCL HEART DISEASE OF [place] CORONARY 07/01/2019 IVAN FONG MD, Ot I27. 20 PULMONARY HYPERTENSION, UNSPECIFIED 07/01/2019 IVAN FONG MD, Ot I48. 0 PAROXYSMAL ATRIAL FIBRILLATION 07/01/2019 HETAL MD, IVAN M Ot I50. 33 ACUTE ON CHRONIC DIASTOLIC (CONGESTIVE) 07/01/2019 IVAN FONG MD, Ot J18. 1 LOBAR PNEUMONIA, UNSPECIFIED ORGANISM 07/01/2019 IVAN FONG MD, Ot J43. 9 EMPHYSEMA, UNSPECIFIED 07/01/2019 IVAN FONG MD, Ot J96. 01 ACUTE RESPIRATORY FAILURE WITH HYPOXIA 07/01/2019 IVAN FONG MD, Ot M19. 91 PRIMARY OSTEOARTHRITIS, UNSPECIFIED SITE 07/01/2019 IVAN FONG MD, Ot M54. 9 DORSALGIA, UNSPECIFIED 07/01/2019 IVAN FONG MD, Ot M81. 0 AGE-RELATED OSTEOPOROSIS W/O CURRENT PAT 07/01/2019 IVAN FONG MD, Ot N17. 9 ACUTE KIDNEY FAILURE, UNSPECIFIED 07/01/2019 IVAN FONG MD, Ot R65. 20 SEVERE SEPSIS WITHOUT SEPTIC SHOCK 07/01/2019 IVAN FONG MD, Ot S46.012S STRAIN OF MUSC/TEND THE ROTATOR CUFF OF 07/01/2019 IVAN FONG MD, Ot Z68. 42 BODY MASS INDEX (BMI) 45.0-49.9, ADULT 07/01/2019 IVAN FONG MD, Ot Z79.891 PENITENTIARY (CURRENT) USE OF OPIATE ANALGE 07/01/2019 IVAN FONG MD, Ot Z87.891 PERSONAL HISTORY OF NICOTINE DEPENDENCE 07/01/2019 IVAN FONG MD, Ot A41. 81 SEPSIS DUE TO ENTEROCOCCUS 07/01/2019 IVAN FONG MD, Ot D64. 9 ANEMIA, UNSPECIFIED 07/01/2019 IVAN FONG MD Ot E11. 9 TYPE 2 DIABETES MELLITUS WITHOUT COMPLIC 07/01/2019 IVAN FONG MD Ot E66. 2 MORBID (SEVERE) OBESITY WITH ALVEOLAR HY 07/01/2019 IVAN FONG MD Ot E78. 00 PURE HYPERCHOLESTEROLEMIA, UNSPECIFIED 07/01/2019 IVAN FONG MD, Ot F32. 9 MAJOR DEPRESSIVE DISORDER, SINGLE EPISOD 07/01/2019 IVAN FONG MD, Ot F41. 9 ANXIETY DISORDER, UNSPECIFIED 07/01/2019 IVAN FONG MD Ot I11. 0 HYPERTENSIVE HEART DISEASE WITH HEART FA 07/01/2019 IVAN FONG MD, Ot I25. 10 ATHSCL HEART DISEASE OF [place] CORONARY 07/01/2019 IVAN FONG MD, Ot I27. 20 PULMONARY HYPERTENSION, UNSPECIFIED 07/01/2019 IVAN FONG MD, Ot I48. 0 PAROXYSMAL ATRIAL FIBRILLATION 07/01/2019 IVAN FONG MD, Ot I50. 33 ACUTE ON CHRONIC DIASTOLIC (CONGESTIVE) 07/01/2019 IVAN FONG MD, Ot J18. 1 LOBAR PNEUMONIA, UNSPECIFIED ORGANISM 07/01/2019 IVAN FONG MD, Ot J43. 9 EMPHYSEMA, UNSPECIFIED 07/01/2019 IVAN FONG MD, Ot J96. 01 ACUTE RESPIRATORY FAILURE WITH HYPOXIA 07/01/2019 IVAN FONG MD, Ot M19. 91 PRIMARY OSTEOARTHRITIS, UNSPECIFIED SITE 07/01/2019 IVAN FONG MD, Ot M54. 9 DORSALGIA, UNSPECIFIED 07/01/2019 IVAN FONG MD, Ot M81. 0 AGE-RELATED OSTEOPOROSIS W/O CURRENT PAT 07/01/2019 IVAN FONG MD, Ot N17. 9 ACUTE KIDNEY FAILURE, UNSPECIFIED 07/01/2019 IVAN FONG MD, Ot R65. 20 SEVERE SEPSIS WITHOUT SEPTIC SHOCK 07/01/2019 IVAN FONG MD, Ot S46.012S STRAIN OF MUSC/TEND THE ROTATOR CUFF OF 07/01/2019 IVAN FONG MD, Ot Z68. 42 BODY MASS INDEX (BMI) 45.0-49.9, ADULT 07/01/2019 IVAN FONG MD, Ot Z79.891 PENITENTIARY (CURRENT) USE OF OPIATE ANALGE 07/01/2019 IVAN FONG MD, Ot Z87.891 PERSONAL HISTORY OF NICOTINE DEPENDENCE 07/02/2019 IVAN FONG MD, Ot A41. 81 SEPSIS DUE TO ENTEROCOCCUS 07/02/2019 IVAN FONG MD, Ot D64. 9 ANEMIA, UNSPECIFIED 07/02/2019 IVAN FONG MD, Ot E11. 9 TYPE 2 DIABETES MELLITUS WITHOUT COMPLIC 07/02/2019 IVAN FONG MD, Ot E66. 2 MORBID (SEVERE) OBESITY WITH ALVEOLAR HY 07/02/2019 IVNA FONG MD, Ot E78. 00 PURE HYPERCHOLESTEROLEMIA, UNSPECIFIED 07/02/2019 IVAN FONG MD, Ot F32. 9 MAJOR DEPRESSIVE DISORDER, SINGLE EPISOD 07/02/2019 IVAN FONG MD, Ot F41. 9 ANXIETY DISORDER, UNSPECIFIED 07/02/2019 IVAN FONG MD, Ot I11. 0 HYPERTENSIVE HEART DISEASE WITH HEART FA 07/02/2019 IVAN FONG MD, Ot I25. 10 ATHSCL HEART DISEASE OF [place] CORONARY 07/02/2019 IVAN FONG MD, Ot I27. 20 PULMONARY HYPERTENSION, UNSPECIFIED 07/02/2019 IVAN FONG MD, Ot I48. 0 PAROXYSMAL ATRIAL FIBRILLATION 07/02/2019 IVAN FONG MD, Ot I50. 33 ACUTE ON CHRONIC DIASTOLIC (CONGESTIVE) 07/02/2019 IVAN FONG MD, Ot J18. 1 LOBAR PNEUMONIA, UNSPECIFIED ORGANISM 07/02/2019 IVAN FONG MD, Ot J43. 9 EMPHYSEMA, UNSPECIFIED 07/02/2019 IVAN FONG MD, Ot J96. 01 ACUTE RESPIRATORY FAILURE WITH HYPOXIA 07/02/2019 IVAN FONG MD Ot M19. 91 PRIMARY OSTEOARTHRITIS, UNSPECIFIED SITE 07/02/2019 IVAN FONG MD, Ot M54. 9 DORSALGIA, UNSPECIFIED 07/02/2019 IVAN FONG MD, Ot M81. 0 AGE-RELATED OSTEOPOROSIS W/O CURRENT PAT 07/02/2019 IVAN FONG MD, Ot N17. 9 ACUTE KIDNEY FAILURE, UNSPECIFIED 07/02/2019 IVAN FONG MD Ot R65. 20 SEVERE SEPSIS WITHOUT SEPTIC SHOCK 07/02/2019 IVAN FONG MD Ot S46.012S STRAIN OF MUSC/TEND THE ROTATOR CUFF OF 07/02/2019 IVAN FONG MD Ot Z68. 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 81 SEPSIS DUE TO ENTEROCOCCUS 07/02/2019 IVAN FONG MD, Ot D64. 9 ANEMIA, UNSPECIFIED 07/02/2019 IVAN FONG MD Ot E11. 9 TYPE 2 DIABETES MELLITUS WITHOUT COMPLIC 07/02/2019 IVAN FONG MD, Ot E66. 2 MORBID (SEVERE) OBESITY WITH ALVEOLAR HY 07/02/2019 IVAN FONG MD, Ot E78. 00 PURE HYPERCHOLESTEROLEMIA, UNSPECIFIED 07/02/2019 IVAN FONG MD, Ot F32. 9 MAJOR DEPRESSIVE DISORDER, SINGLE EPISOD 07/02/2019 IVAN FONG MD, Ot F41. 9 ANXIETY DISORDER, UNSPECIFIED 07/02/2019 IVAN FONG MD, Ot I11. 0 HYPERTENSIVE HEART DISEASE WITH HEART FA 07/02/2019 IVAN FONG MD, Ot I25. 10 ATHSCL HEART DISEASE OF [place] CORONARY 07/02/2019 IVAN FONG MD, Ot I27. 20 PULMONARY HYPERTENSION, UNSPECIFIED 07/02/2019 IVAN FONG MD, Ot I48. 0 PAROXYSMAL ATRIAL FIBRILLATION 07/02/2019 IVAN FONG MD, Ot I50. 33 ACUTE ON CHRONIC DIASTOLIC (CONGESTIVE) 07/02/2019 IVAN FONG MD, Ot J18. 1 LOBAR PNEUMONIA, UNSPECIFIED ORGANISM 07/02/2019 IVAN FONG MD, Ot J43. 9 EMPHYSEMA, UNSPECIFIED 07/02/2019 IVAN FONG MD, Ot J96. 01 ACUTE RESPIRATORY FAILURE WITH HYPOXIA 07/02/2019 IVAN FONG MD Ot M19. 91 PRIMARY OSTEOARTHRITIS, UNSPECIFIED SITE 07/02/2019 IVAN FONG MD, Ot M54. 9 DORSALGIA, UNSPECIFIED 07/02/2019 IVAN FONG MD, Ot M81. 0 AGE-RELATED OSTEOPOROSIS W/O CURRENT PAT 07/02/2019 IVAN FONG MD, Ot N17. 9 ACUTE KIDNEY FAILURE, UNSPECIFIED 07/02/2019 IVAN FONG MD, Ot R65. 20 SEVERE SEPSIS WITHOUT SEPTIC SHOCK 07/02/2019 IVAN FONG MD, Ot S46.012S STRAIN OF MUSC/TEND THE ROTATOR CUFF OF 07/02/2019 IVAN FONG MD, Ot Z68. 42 BODY MASS INDEX (BMI) 45.0-49.9, ADULT 07/02/2019 IVAN FONG MD, Ot Z79.891 PENITENTIARY (CURRENT) USE OF OPIATE ANALGE 07/02/2019 IVAN FONG MD, Ot Z87.891 PERSONAL HISTORY OF NICOTINE DEPENDENCE 07/02/2019 IVAN FONG MD, Ot A41. 81 SEPSIS DUE TO ENTEROCOCCUS 07/02/2019 IVAN FONG MD, Ot D64. 9 ANEMIA, UNSPECIFIED 07/02/2019 IVAN FONG MD, Ot E11. 9 TYPE 2 DIABETES MELLITUS WITHOUT COMPLIC 07/02/2019 IVAN FONG MD, Ot E66. 2 MORBID (SEVERE) OBESITY WITH ALVEOLAR HY 07/02/2019 IVAN FONG MD, Ot E78. 00 PURE HYPERCHOLESTEROLEMIA, UNSPECIFIED 07/02/2019 IVAN FONG MD, Ot F32. 9 MAJOR DEPRESSIVE DISORDER, SINGLE EPISOD 07/02/2019 IVAN FONG MD, Ot F41. 9 ANXIETY DISORDER, UNSPECIFIED 07/02/2019 IVAN FONG MD, Ot I11. 0 HYPERTENSIVE HEART DISEASE WITH HEART FA 07/02/2019 IVAN FONG MD, Ot I25. 10 ATHSCL HEART DISEASE OF [place] CORONARY 07/02/2019 IVAN FONG MD, Ot I27. 20 PULMONARY HYPERTENSION, UNSPECIFIED 07/02/2019 IVAN FONG MD, Ot I48. 0 PAROXYSMAL ATRIAL FIBRILLATION 07/02/2019 IVAN FONG MD, Ot I50. 33 ACUTE ON CHRONIC DIASTOLIC (CONGESTIVE) 07/02/2019 IVAN FONG MD, Ot J18. 1 LOBAR PNEUMONIA, UNSPECIFIED ORGANISM 07/02/2019 IVAN FONG MD, Ot J43. 9 EMPHYSEMA, UNSPECIFIED 07/02/2019 IVAN FONG MD, Ot J96. 01 ACUTE RESPIRATORY FAILURE WITH HYPOXIA 07/02/2019 IVAN FONG MD Ot M19. 91 PRIMARY OSTEOARTHRITIS, UNSPECIFIED SITE 07/02/2019 IVAN FONG MD, Ot M54. 9 DORSALGIA, UNSPECIFIED 07/02/2019 IVAN FONG MD, Ot M81. 0 AGE-RELATED OSTEOPOROSIS W/O CURRENT PAT 07/02/2019 IVAN FONG MD, Ot N17. 9 ACUTE KIDNEY FAILURE, UNSPECIFIED 07/02/2019 IVAN FONG MD, Ot R65. 20 SEVERE SEPSIS WITHOUT SEPTIC SHOCK 07/02/2019 IVAN FONG MD, Ot S46.012S STRAIN OF MUSC/TEND THE ROTATOR CUFF OF 07/02/2019 IVAN FONG MD, Ot Z68. 42 BODY MASS INDEX (BMI) 45.0-49.9, ADULT 07/02/2019 IVAN FONG MD, Ot Z79.891 PENITENTIARY (CURRENT) USE OF OPIATE ANALGE 07/02/2019 IVAN FONG MD, Ot Z87.891 PERSONAL HISTORY OF NICOTINE DEPENDENCE 07/03/2019 IVAN FONG MD, Ot A41. 81 SEPSIS DUE TO ENTEROCOCCUS 07/03/2019 IVAN FONG MD, Ot D64. 9 ANEMIA, UNSPECIFIED 07/03/2019 IVAN FONG MD Ot E11. 9 TYPE 2 DIABETES MELLITUS WITHOUT COMPLIC 07/03/2019 IVAN FONG MD, Ot E66. 2 MORBID (SEVERE) OBESITY WITH ALVEOLAR HY 07/03/2019 IVAN FONG MD, Ot E78. 00 PURE HYPERCHOLESTEROLEMIA, UNSPECIFIED 07/03/2019 IVAN FONG MD, Ot F32. 9 MAJOR DEPRESSIVE DISORDER, SINGLE EPISOD 07/03/2019 IVAN FONG MD, Ot F41. 9 ANXIETY DISORDER, UNSPECIFIED 07/03/2019 IVAN FONG MD Ot I11. 0 HYPERTENSIVE HEART DISEASE WITH HEART FA 07/03/2019 IVAN FONG MD, Ot I25. 10 ATHSCL HEART DISEASE OF [place] CORONARY 07/03/2019 IVAN FONG MD, Ot I27. 20 PULMONARY HYPERTENSION, UNSPECIFIED 07/03/2019 IVAN FONG MD Ot I48. 0 PAROXYSMAL ATRIAL FIBRILLATION 07/03/2019 IVAN FONG MD Ot I50. 33 ACUTE ON CHRONIC DIASTOLIC (CONGESTIVE) 07/03/2019 IVAN FONG MD Ot J18. 1 LOBAR PNEUMONIA, UNSPECIFIED ORGANISM 07/03/2019 IVAN FONG MD Ot J43. 9 EMPHYSEMA, UNSPECIFIED 07/03/2019 IVAN FONG MD Ot J96. 01 ACUTE RESPIRATORY FAILURE WITH HYPOXIA 07/03/2019 IVAN FONG MD Ot M19. 91 PRIMARY OSTEOARTHRITIS, UNSPECIFIED SITE 07/03/2019 IVAN FONG MD, Ot M54. 9 DORSALGIA, UNSPECIFIED 07/03/2019 IVAN FONG MD, Ot M81. 0 AGE-RELATED OSTEOPOROSIS W/O CURRENT PAT 07/03/2019 IVAN FONG MD Ot N17. 9 ACUTE KIDNEY FAILURE, UNSPECIFIED 07/03/2019 IVAN FONG MD, Ot R65. 20 SEVERE SEPSIS WITHOUT SEPTIC SHOCK 07/03/2019 IVAN FONG MD, Ot S46.012S STRAIN OF MUSC/TEND THE ROTATOR CUFF OF 07/03/2019 IVAN FONG MD, Ot Z68. 42 BODY MASS INDEX (BMI) 45.0-49.9, ADULT 07/03/2019 IVAN FONG MD, Ot Z79.891 PENITENTIARY (CURRENT) USE OF OPIATE ANALGE 07/03/2019 IVAN FONG MD, Ot Z87.891 PERSONAL HISTORY OF NICOTINE DEPENDENCE 07/04/2019 IVAN FONG MD, Ot A41. 81 SEPSIS DUE TO ENTEROCOCCUS 07/04/2019 IVAN FONG MD, Ot D64. 9 ANEMIA, UNSPECIFIED 07/04/2019 IVAN FONG MD, Ot E11. 9 TYPE 2 DIABETES MELLITUS WITHOUT COMPLIC 07/04/2019 IVAN FONG MD, Ot E66. 2 MORBID (SEVERE) OBESITY WITH ALVEOLAR HY 07/04/2019 IVAN FONG MD, Ot E78. 00 PURE HYPERCHOLESTEROLEMIA, UNSPECIFIED 07/04/2019 IVAN FONG MD, Ot F32. 9 MAJOR DEPRESSIVE DISORDER, SINGLE EPISOD 07/04/2019 IVAN FONG MD, Ot F41. 9 ANXIETY DISORDER, UNSPECIFIED 07/04/2019 IAVN FONG MD, Ot I11. 0 HYPERTENSIVE HEART DISEASE WITH HEART FA 07/04/2019 IVAN FONG MD, Ot I25. 10 ATHSCL HEART DISEASE OF [place] CORONARY 07/04/2019 IVAN FONG MD, Ot I27. 20 PULMONARY HYPERTENSION, UNSPECIFIED 07/04/2019 IVAN FONG MD Ot I48. 0 PAROXYSMAL ATRIAL FIBRILLATION 07/04/2019 IVAN FONG MD, Ot I50. 33 ACUTE ON CHRONIC DIASTOLIC (CONGESTIVE) 07/04/2019 IVAN FONG MD, Ot J18. 1 LOBAR PNEUMONIA, UNSPECIFIED ORGANISM 07/04/2019 IVAN FONG MD, Ot J43. 9 EMPHYSEMA, UNSPECIFIED 07/04/2019 IVAN FONG MD, Ot J96. 01 ACUTE RESPIRATORY FAILURE WITH HYPOXIA 07/04/2019 IVAN FONG MD Ot M19. 91 PRIMARY OSTEOARTHRITIS, UNSPECIFIED SITE 07/04/2019 IVAN FONG MD, Ot M54. 9 DORSALGIA, UNSPECIFIED 07/04/2019 IVAN FONG MD, Ot M81. 0 AGE-RELATED OSTEOPOROSIS W/O CURRENT PAT 07/04/2019 IVAN FONG MD, Ot N17. 9 ACUTE KIDNEY FAILURE, UNSPECIFIED 07/04/2019 IVAN FONG MD, Ot R65. 20 SEVERE SEPSIS WITHOUT SEPTIC SHOCK 07/04/2019 IVAN FONG MD, Ot S46.012S STRAIN OF MUSC/TEND THE ROTATOR CUFF OF 07/04/2019 IVAN FONG MD, Ot Z68. 42 BODY MASS INDEX (BMI) 45.0-49.9, ADULT 07/04/2019 IVAN FONG MD, Ot Z79.891 PENITENTIARY (CURRENT) USE OF OPIATE ANALGE 07/04/2019 IVAN FONG MD, Ot Z87.891 PERSONAL HISTORY OF NICOTINE DEPENDENCE 07/04/2019 IVAN FONG MD, Ot A41. 81 SEPSIS DUE TO ENTEROCOCCUS 07/04/2019 IVAN FONG MD, Ot B95. 2 ENTEROCOCCUS THE CAUSE OF DISEASES CL 07/04/2019 IVAN FONG MD, Ot D12. 2 BENIGN NEOPLASM OF ASCENDING COLON 07/04/2019 IVAN FONG MD, Ot D12. 3 BENIGN NEOPLASM OF TRANSVERSE COLON 07/04/2019 IVAN FONG MD, Ot D12. 5 BENIGN NEOPLASM OF SIGMOID COLON 07/04/2019 IVAN FONG MD, Ot D64. 9 ANEMIA, UNSPECIFIED 07/04/2019 IVAN FONG MD, Ot E11. 9 TYPE 2 DIABETES MELLITUS WITHOUT COMPLIC 07/04/2019 IVAN FONG MD, Ot E66. 2 MORBID (SEVERE) OBESITY WITH ALVEOLAR HY 07/04/2019 IVAN FONG MD, Ot E78. 00 PURE HYPERCHOLESTEROLEMIA, UNSPECIFIED 07/04/2019 IVAN FONG MD, Ot F32. 9 MAJOR DEPRESSIVE DISORDER, SINGLE EPISOD 07/04/2019 IVAN FONG MD, Ot F41. 9 ANXIETY DISORDER, UNSPECIFIED 07/04/2019 IVAN FONG MD, Ot I11. 0 HYPERTENSIVE HEART DISEASE WITH HEART FA 07/04/2019 IVAN FONG MD, Ot I25. 10 ATHSCL HEART DISEASE OF [place] CORONARY 07/04/2019 HETAL MD, IVAN M Ot I27. 20 PULMONARY HYPERTENSION, UNSPECIFIED 07/04/2019 IVAN FONG MD Ot I48. 0 PAROXYSMAL ATRIAL FIBRILLATION 07/04/2019 IVAN FONG MD, Ot I49. 5 SICK SINUS SYNDROME 07/04/2019 IVAN FONG MD, Ot I50. 33 ACUTE ON CHRONIC DIASTOLIC (CONGESTIVE) 07/04/2019 IVAN FONG MD Ot I71. 4 ABDOMINAL AORTIC ANEURYSM, WITHOUT RUPTU 07/04/2019 IVAN FONG MD Ot J13 PNEUMONIA DUE TO STREPTOCOCCUS PNEUMONIA 07/04/2019 IVAN FONG MD, Ot J18. 1 LOBAR PNEUMONIA, UNSPECIFIED ORGANISM 07/04/2019 IVAN FONG MD, Ot J43. 9 EMPHYSEMA, UNSPECIFIED 07/04/2019 IVAN FONG MD, Ot J90 PLEURAL EFFUSION, NOT ELSEWHERE CLASSIFI 07/04/2019 IVAN FONG MD, Ot J96. 01 ACUTE RESPIRATORY FAILURE WITH HYPOXIA 07/04/2019 IVAN FONG MD Ot K21. 9 GASTRO-ESOPHAGEAL REFLUX DISEASE WITHOUT 07/04/2019 IVAN FONG MD Ot K29. 60 OTHER GASTRITIS WITHOUT BLEEDING 07/04/2019 IVAN FONG MD Ot K62. 1 RECTAL POLYP 07/04/2019 IVAN FONG MD Ot M19. 91 PRIMARY OSTEOARTHRITIS, UNSPECIFIED SITE 07/04/2019 IVAN FONG MD, Ot M54. 9 DORSALGIA, UNSPECIFIED 07/04/2019 IVAN FONG MD Ot M81. 0 AGE-RELATED OSTEOPOROSIS W/O CURRENT PAT 07/04/2019 IVAN FONG MD Ot N17. 9 ACUTE KIDNEY FAILURE, UNSPECIFIED 07/04/2019 IVAN FONG MD Ot R04. 2 HEMOPTYSIS 07/04/2019 IVAN FONG MD Ot R65. 20 SEVERE SEPSIS WITHOUT SEPTIC SHOCK 07/04/2019 IVAN FONG MD Ot R78. 81 BACTEREMIA 07/04/2019 IVAN FONG MD, Ot S46.012S STRAIN OF MUSC/TEND THE ROTATOR CUFF OF 07/04/2019 IVAN FONG MD Ot Z68. 42 BODY MASS INDEX (BMI) 45.0-49.9, ADULT 07/04/2019 HETAL MD, IVAN M Ot Z79. 01 PENITENTIARY (CURRENT) USE OF ANTICOAGULANT 07/04/2019 IVAN FONG MD Ot Z79.891 PENITENTIARY (CURRENT) USE OF OPIATE ANALGE 07/04/2019 IVAN FONG MD Ot Z87.891 PERSONAL HISTORY OF NICOTINE DEPENDENCE 07/07/2019 MAGNUS VALDEZ APRN Ot E11 .9 TYPE 2 DIABETES MELLITUS WITHOUT COMPLIC 07/07/2019 MAGNUS VALDEZ APRN Ot E66.01 MORBID (SEVERE) OBESITY DUE TO EXCESS CA 07/07/2019 MAGNUS VALDEZ APRN Ot E78.00 PURE HYPERCHOLESTEROLEMIA, UNSPECIFIED 07/07/2019 MAGNUS VALDEZ APRN Ot F32 .9 MAJOR DEPRESSIVE DISORDER, SINGLE EPISOD 07/07/2019 MAGNUS VALDEZ APRN Ot F41 .9 ANXIETY DISORDER, UNSPECIFIED 07/07/2019 MAGNUS VALDEZ APRN Ot G47.30 SLEEP APNEA, UNSPECIFIED 07/07/2019 MAGNUS VALDEZ APRN Ot I11 .0 HYPERTENSIVE HEART DISEASE WITH HEART FA 07/07/2019 MAGNUS VALDEZ APRN Ot I25.10 ATHSCL HEART DISEASE OF [place] CORONARY 07/07/2019 MAGNUS VALDEZ APRN Ot I50 .9 HEART FAILURE, UNSPECIFIED 07/07/2019 MAGNUS VALDEZ APRN Ot J44 .1 CHRONIC OBSTRUCTIVE PULMONARY DISEASE W 07/07/2019 MAGNUS VALDEZ APRN Ot R06.03 ACUTE RESPIRATORY DISTRESS 07/07/2019 MAGNUS VALDEZ APRN Ot Z68.42 BODY MASS INDEX (BMI) 45.0-49.9, ADULT 07/07/2019 MAGNUS VALDEZ APRN Ot Z79.01 PENITENTIARY (CURRENT) USE OF ANTICOAGULANT 07/07/2019 MAGNUS VALDEZ APRN Ot Z79.82 PENITENTIARY (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 07/07/2019 MAGNUS VALDEZ APRN Ot Z80 .1 FAMILY HISTORY OF MALIG NEOPLASM OF [place] 07/07/2019 MAGNUS VALDEZ APRN Ot Z82.49 FAMILY HX OF I[place] HEART DIS AND OTH DI 07/07/2019 MAGNUS VALDEZ APRN Ot Z87.09 PERSONAL HISTORY OF OTHER DISEASES OF TH 07/07/2019 MAGNUS VALDEZ APRN Ot Z87.891 PERSONAL HISTORY OF NICOTINE DEPENDENCE 07/07/2019 MAGNUS VALDEZ APRN Ot Z88 .1 ALLERGY STATUS TO OTHER ANTIBIOTIC AGENT 07/07/2019 MAGNUS VALDEZ APRN Ot Z95 .9 PRESENCE OF CARDIAC AND VASCULAR IMPLANT 07/07/2019 MAGNUS VALDEZ APRN Ot Z99.89 DEPENDENCE ON OTHER ENABLING MACHINES AN 07/11/2019 MAGNUS VALDEZ APRN Ot E11 .9 TYPE 2 DIABETES MELLITUS WITHOUT COMPLIC 07/11/2019 MAGNUS VALDEZ APRN Ot E66.01 MORBID (SEVERE) OBESITY DUE TO EXCESS CA 07/11/2019 MAGNUS VALDEZ APRN Ot E78.00 PURE HYPERCHOLESTEROLEMIA, UNSPECIFIED 07/11/2019 MAGNUS VALDEZ APRN Ot F32 .9 MAJOR DEPRESSIVE DISORDER, SINGLE EPISOD 07/11/2019 MAGNUS VALDEZ APRN Ot F41 .9 ANXIETY DISORDER, UNSPECIFIED 07/11/2019 MAGNUS VALDEZ APRN Ot G47.30 SLEEP APNEA, UNSPECIFIED 07/11/2019 MAGNUS VALDEZ APRN Ot I11 .0 HYPERTENSIVE HEART DISEASE WITH HEART FA 07/11/2019 MAGNUS VALDEZ APRN Ot I25.10 ATHSCL HEART DISEASE OF [place] CORONARY 07/11/2019 MAGNUS VALDEZ APRN Ot I50 .9 HEART FAILURE, UNSPECIFIED 07/11/2019 MAGNUS VALDEZ APRN Ot J44 .1 CHRONIC OBSTRUCTIVE PULMONARY DISEASE W 07/11/2019 MAGNUS VALDEZ APRN Ot R06.03 ACUTE RESPIRATORY DISTRESS 07/11/2019 MAGNUS VALDEZ APRN Ot Z68.42 BODY MASS INDEX (BMI) 45.0-49.9, ADULT 07/11/2019 MAGNUS VALDEZ APRN Ot Z79.01 PENITENTIARY (CURRENT) USE OF ANTICOAGULANT 07/11/2019 MAGNUS VALDEZ APRN Ot Z79.82 CRAFT WORKER (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 07/11/2019 MAGNUS VALDEZ APRN Ot Z80 .1 FAMILY HISTORY OF MALIG NEOPLASM OF [place] 07/11/2019 MAGNUS VALDEZ APRN Ot Z82.49 FAMILY HX OF [place] HEART DIS AND OTH DI 07/11/2019 MAGNUS VALDEZ APRN Ot Z87.09 PERSONAL HISTORY OF OTHER DISEASES OF TH 07/11/2019 MAGNUS VALDEZ APRN Ot Z87.891 PERSONAL HISTORY OF NICOTINE DEPENDENCE 07/11/2019 MAGNUS VALDEZ APRN Ot Z88 .1 ALLERGY STATUS TO OTHER ANTIBIOTIC AGENT 07/11/2019 MAGNUS VALDEZ APRN Ot Z95 .9 PRESENCE OF CARDIAC AND VASCULAR IMPLANT 07/11/2019 MAGNUS VALDEZ APRN Ot Z99.89 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 9 ANEMIA, UNSPECIFIED 07/15/2019 VERNON DIAMOND MD Ot E66. 2 MORBID (SEVERE) OBESITY WITH ALVEOLAR HY 07/15/2019 VERNON DIAMOND MD Ot E78. 00 PURE HYPERCHOLESTEROLEMIA, UNSPECIFIED 07/15/2019 VERNON DIAMOND MD, Ot F32. 9 MAJOR DEPRESSIVE DISORDER, SINGLE EPISOD 07/15/2019 VERNON DIAMOND MD, Ot F41. 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 0 HYPERTENSIVE HEART DISEASE WITH HEART FA 07/15/2019 VERNON DIAMOND MD, Ot I25. 10 ATHSCL HEART DISEASE OF [place] CORONARY 07/15/2019 VERNON DIAMOND MD, Ot I27. 20 PULMONARY HYPERTENSION, UNSPECIFIED 07/15/2019 VERNON DIAMOND MD Ot I48. 91 UNSPECIFIED ATRIAL FIBRILLATION 07/15/2019 VERNON DIAMOND MD Ot I50. 33 ACUTE ON CHRONIC DIASTOLIC (CONGESTIVE) 07/15/2019 VERNON DIAMOND MD, Ot J30. 2 OTHER SEASONAL ALLERGIC RHINITIS 07/15/2019 VERNON DIAMOND MD, Ot J44. 9 CHRONIC OBSTRUCTIVE PULMONARY DISEASE, U 07/15/2019 VERNON DIAMOND MD, Ot J96. 21 ACUTE AND CHRONIC RESPIRATORY FAILURE [place] 07/15/2019 VERNON DIAMOND MD, Ot K21. 9 GASTRO-ESOPHAGEAL REFLUX DISEASE WITHOUT 07/15/2019 VERNON DIAMOND MD, Ot M19. 91 PRIMARY OSTEOARTHRITIS, UNSPECIFIED SITE 07/15/2019 VERNON DIAMOND MD Ot M25.512 PAIN IN LEFT SHOULDER 07/15/2019 VERNON DIAMOND MD, Ot M54. 6 PAIN IN THORACIC SPINE 07/15/2019 VERNON DIAMOND MD, Ot M81. 0 AGE-RELATED OSTEOPOROSIS W/O CURRENT PAT 07/15/2019 VERNON DIAMOND MD, Ot N28. 9 DISORDER OF KIDNEY AND URETER, UNSPECIFI 07/15/2019 VERNON DIAMOND MD, Ot R79. 89 OTHER SPECIFIED ABNORMAL FINDINGS OF BLO 07/15/2019 VERNON DIAMOND MD, Ot Z68. 42 BODY MASS INDEX (BMI) 45.0-49.9, ADULT 07/15/2019 VERNON DIAMOND MD, Ot Z79. 01 PENITENTIARY (CURRENT) USE OF ANTICOAGULANT 07/15/2019 VERNON DIAMOND MD, Ot Z87.891 PERSONAL HISTORY OF NICOTINE DEPENDENCE 07/15/2019 VERNON DIAMOND MD, Ot D64. 9 ANEMIA, UNSPECIFIED 07/15/2019 VERNON DIAMOND MD, Ot E66. 2 MORBID (SEVERE) OBESITY WITH ALVEOLAR HY 07/15/2019 VERNON DIAMOND MD, Ot E78. 00 PURE HYPERCHOLESTEROLEMIA, UNSPECIFIED 07/15/2019 VERNON DIAMOND MD, Ot F32. 9 MAJOR DEPRESSIVE DISORDER, SINGLE EPISOD 07/15/2019 VERNON DIAMOND MD, Ot F41. 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 0 HYPERTENSIVE HEART DISEASE WITH HEART FA 07/15/2019 VERNON DIAMOND MD, Ot I25. 10 ATHSCL HEART DISEASE OF [place] CORONARY 07/15/2019 VERNON DIAMOND MD, Ot I27. 20 PULMONARY HYPERTENSION, UNSPECIFIED 07/15/2019 VERNON DIAMOND MD, Ot I48. 91 UNSPECIFIED ATRIAL FIBRILLATION 07/15/2019 VERNON DIAMOND MD, Ot I50. 33 ACUTE ON CHRONIC DIASTOLIC (CONGESTIVE) 07/15/2019 VERNON DIAMOND MD, Ot J30. 2 OTHER SEASONAL ALLERGIC RHINITIS 07/15/2019 VERNON DIAMOND MD, Ot J44. 9 CHRONIC OBSTRUCTIVE PULMONARY DISEASE, U 07/15/2019 VERNON DAIMOND MD, Ot J96. 21 ACUTE AND CHRONIC RESPIRATORY FAILURE [place] 07/15/2019 VERNON DIAMOND MD, Ot K21. 9 GASTRO-ESOPHAGEAL REFLUX DISEASE WITHOUT 07/15/2019 VERNON DIAMOND MD, Ot M19. 91 PRIMARY OSTEOARTHRITIS, UNSPECIFIED SITE 07/15/2019 VERNON DIAMOND MD, Ot M25.512 PAIN IN LEFT SHOULDER 07/15/2019 VERNON DIAMOND MD, Ot M54. 6 PAIN IN THORACIC SPINE 07/15/2019 VERNON DIAMOND MD, Ot M81. 0 AGE-RELATED OSTEOPOROSIS W/O CURRENT PAT 07/15/2019 VERNON DIAMOND MD, Ot N28. 9 DISORDER OF KIDNEY AND URETER, UNSPECIFI 07/15/2019 VERNON DIAMOND MD, Ot R79. 89 OTHER SPECIFIED ABNORMAL FINDINGS OF BLO 07/15/2019 VERNON DIAMOND MD, Ot Z68. 42 BODY MASS INDEX (BMI) 45.0-49.9, ADULT 07/15/2019 VERNON DIAMOND MD, Ot Z79. 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 9 ANEMIA, UNSPECIFIED 07/15/2019 VERNON DIAMOND MD, Ot E66. 2 MORBID (SEVERE) OBESITY WITH ALVEOLAR HY 07/15/2019 VERNON DIAMOND MD, Ot E78. 00 PURE HYPERCHOLESTEROLEMIA, UNSPECIFIED 07/15/2019 VERNON DIAMOND MD, Ot F32. 9 MAJOR DEPRESSIVE DISORDER, SINGLE EPISOD 07/15/2019 VERNON DIAMOND MD, Ot F41. 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 0 HYPERTENSIVE HEART DISEASE WITH HEART FA 07/15/2019 VERNON DIAMOND MD, Ot I25. 10 ATHSCL HEART DISEASE OF [place] CORONARY 07/15/2019 VERNON DIAMOND MD, Ot I27. 20 PULMONARY HYPERTENSION, UNSPECIFIED 07/15/2019 VERNON DIAMOND MD, Ot I48. 91 UNSPECIFIED ATRIAL FIBRILLATION 07/15/2019 VERNON DIAMOND MD, Ot I50. 33 ACUTE ON CHRONIC DIASTOLIC (CONGESTIVE) 07/15/2019 VERNON DIAMOND MD, Ot J30. 2 OTHER SEASONAL ALLERGIC RHINITIS 07/15/2019 VERNON DIAMOND MD, Ot J44. 9 CHRONIC OBSTRUCTIVE PULMONARY DISEASE, U 07/15/2019 VERNON DIAMOND MD, Ot J96. 21 ACUTE AND CHRONIC RESPIRATORY FAILURE [place] 07/15/2019 VERNON DIAMOND MD, Ot K21. 9 GASTRO-ESOPHAGEAL REFLUX DISEASE WITHOUT 07/15/2019 VERNON DIAMOND MD, Ot M19. 91 PRIMARY OSTEOARTHRITIS, UNSPECIFIED SITE 07/15/2019 VERNON DIAMOND MD, Ot M25.512 PAIN IN LEFT SHOULDER 07/15/2019 VERNON DIAMOND MD, Ot M54. 6 PAIN IN THORACIC SPINE 07/15/2019 VERNON DIAMOND MD, Ot M81. 0 AGE-RELATED OSTEOPOROSIS W/O CURRENT PAT 07/15/2019 VERNON DIAMOND MD, Ot N28. 9 DISORDER OF KIDNEY AND URETER, UNSPECIFI 07/15/2019 VERNON DIAMOND MD, Ot R79. 89 OTHER SPECIFIED ABNORMAL FINDINGS OF BLO 07/15/2019 VERNON DIAMOND MD, Ot Z68. 42 BODY MASS INDEX (BMI) 45.0-49.9, ADULT 07/15/2019 VERNON DIAMOND MD, Ot Z79. 01 PENITENTIARY (CURRENT) USE OF ANTICOAGULANT 07/15/2019 VERNON DIAMOND MD, Ot Z87.891 PERSONAL HISTORY OF NICOTINE DEPENDENCE 07/16/2019 VERNON DIAMOND MD, Ot D64. 9 ANEMIA, UNSPECIFIED 07/16/2019 VERNON DIAMOND MD, Ot E66. 2 MORBID (SEVERE) OBESITY WITH ALVEOLAR HY 07/16/2019 VERNON DIAMOND MD, Ot E78. 00 PURE HYPERCHOLESTEROLEMIA, UNSPECIFIED 07/16/2019 VERNON DIAMOND MD, Ot F32. 9 MAJOR DEPRESSIVE DISORDER, SINGLE EPISOD 07/16/2019 VERNON DIAMOND MD, Ot F41. 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 0 HYPERTENSIVE HEART DISEASE WITH HEART FA 07/16/2019 VERNON DIAMOND MD, Ot I25. 10 ATHSCL HEART DISEASE OF [place] CORONARY 07/16/2019 VERNON DIAMOND MD, Ot I27. 20 PULMONARY HYPERTENSION, UNSPECIFIED 07/16/2019 VERNON DIAMOND MD, Ot I48. 91 UNSPECIFIED ATRIAL FIBRILLATION 07/16/2019 VERNON DIAMOND MD, Ot I50. 33 ACUTE ON CHRONIC DIASTOLIC (CONGESTIVE) 07/16/2019 VERNON DIAMOND MD, Ot J30. 2 OTHER SEASONAL ALLERGIC RHINITIS 07/16/2019 VERNON DIAMOND MD, Ot J44. 9 CHRONIC OBSTRUCTIVE PULMONARY DISEASE, U 07/16/2019 VERNON DIAMOND MD, Ot J96. 21 ACUTE AND CHRONIC RESPIRATORY FAILURE WI 07/16/2019 VERNON DIAMOND MD, Ot K21. 9 GASTRO-ESOPHAGEAL REFLUX DISEASE WITHOUT 07/16/2019 VERNON DIAMOND MD, Ot M19. 91 PRIMARY OSTEOARTHRITIS, UNSPECIFIED SITE 07/16/2019 VERNON DIAMOND MD, Ot M25.512 PAIN IN LEFT SHOULDER 07/16/2019 VERNON DIAMOND MD, Ot M54. 6 PAIN IN THORACIC SPINE 07/16/2019 VERNON DIAMOND MD, Ot M81. 0 AGE-RELATED OSTEOPOROSIS W/O CURRENT PAT 07/16/2019 VERNON DIAMOND MD, Ot N28. 9 DISORDER OF KIDNEY AND URETER, UNSPECIFI 07/16/2019 VERNON DIAMOND MD, Ot R79. 89 OTHER SPECIFIED ABNORMAL FINDINGS OF BLO 07/16/2019 VERNON DIAMOND MD Ot Z68. 42 BODY MASS INDEX (BMI) 45.0-49.9, ADULT 07/16/2019 VERNON DIAMOND MD, Ot Z79. 01 PENITENTIARY (CURRENT) USE OF ANTICOAGULANT 07/16/2019 VERNON DIAMOND MD, Ot Z87.891 PERSONAL HISTORY OF NICOTINE DEPENDENCE 07/17/2019 VERNON DIAMOND MD, Ot D64. 9 ANEMIA, UNSPECIFIED 07/17/2019 VERNON DIAMOND MD, Ot E66. 2 MORBID (SEVERE) OBESITY WITH ALVEOLAR HY 07/17/2019 VERNON DIAMOND MD, Ot E78. 00 PURE HYPERCHOLESTEROLEMIA, UNSPECIFIED 07/17/2019 LOBO MD, VERNON M Ot F32. 9 MAJOR DEPRESSIVE DISORDER, SINGLE EPISOD 07/17/2019 VERNON DIAMOND MD, Ot F41. 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 0 HYPERTENSIVE HEART DISEASE WITH HEART FA 07/17/2019 VERNON DIAMOND MD, Ot I25. 10 ATHSCL HEART DISEASE OF [place] CORONARY 07/17/2019 VERNON DIAMOND MD, Ot I27. 20 PULMONARY HYPERTENSION, UNSPECIFIED 07/17/2019 VERNON DIAMOND MD, Ot I48. 91 UNSPECIFIED ATRIAL FIBRILLATION 07/17/2019 VERNON DIAMOND MD, Ot I50. 33 ACUTE ON CHRONIC DIASTOLIC (CONGESTIVE) 07/17/2019 VERNON DIAMOND MD, Ot J30. 2 OTHER SEASONAL ALLERGIC RHINITIS 07/17/2019 VERNON DIAMOND MD, Ot J44. 9 CHRONIC OBSTRUCTIVE PULMONARY DISEASE, U 07/17/2019 VERNON DIAMOND MD, Ot J96. 21 ACUTE AND CHRONIC RESPIRATORY FAILURE WI 07/17/2019 VERNON DIAMOND MD, Ot K21. 9 GASTRO-ESOPHAGEAL REFLUX DISEASE WITHOUT 07/17/2019 VERNON DIAMOND MD, Ot M19. 91 PRIMARY OSTEOARTHRITIS, UNSPECIFIED SITE 07/17/2019 VERNON DIAMOND MD, Ot M25.512 PAIN IN LEFT SHOULDER 07/17/2019 VERNON DIAMOND MD, Ot M54. 6 PAIN IN THORACIC SPINE 07/17/2019 VERNON DIAMOND MD, Ot M81. 0 AGE-RELATED OSTEOPOROSIS W/O CURRENT PAT 07/17/2019 VERNON DIAMOND MD, Ot N28. 9 DISORDER OF KIDNEY AND URETER, UNSPECIFI 07/17/2019 VERNON DIAMOND MD, Ot R79. 89 OTHER SPECIFIED ABNORMAL FINDINGS OF BLO 07/17/2019 VERNON DIAMOND MD, Ot Z68. 42 BODY MASS INDEX (BMI) 45.0-49.9, ADULT 07/17/2019 VERNON DIAMOND MD, Ot Z79. 01 PENITENTIARY (CURRENT) USE OF ANTICOAGULANT 07/17/2019 VERNON DIAMOND MD, Ot Z87.891 PERSONAL HISTORY OF NICOTINE DEPENDENCE 07/18/2019 VERNON DIAMOND MD, Ot D64. 9 ANEMIA, UNSPECIFIED 07/18/2019 VERNON DIAMOND MD, Ot E66. 2 MORBID (SEVERE) OBESITY WITH ALVEOLAR HY 07/18/2019 VERNON DIAMOND MD Ot E78. 00 PURE HYPERCHOLESTEROLEMIA, UNSPECIFIED 07/18/2019 VERNON DIAMOND MD, Ot F32. 9 MAJOR DEPRESSIVE DISORDER, SINGLE EPISOD 07/18/2019 VERNON DIAMOND MD, Ot F41. 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 0 HYPERTENSIVE HEART DISEASE WITH HEART FA 07/18/2019 VERNON DIAMOND MD, Ot I25. 10 ATHSCL HEART DISEASE OF [place] CORONARY 07/18/2019 VERNON DIAMOND MD, Ot I27. 20 PULMONARY HYPERTENSION, UNSPECIFIED 07/18/2019 VERNON DIAMOND MD Ot I48. 91 UNSPECIFIED ATRIAL FIBRILLATION 07/18/2019 VERNON DIAMOND MD Ot I50. 33 ACUTE ON CHRONIC DIASTOLIC (CONGESTIVE) 07/18/2019 VERNON DIAMOND MD, Ot J30. 2 OTHER SEASONAL ALLERGIC RHINITIS 07/18/2019 VERNON DIAMOND MD, Ot J44. 9 CHRONIC OBSTRUCTIVE PULMONARY DISEASE, U 07/18/2019 VERNON DIAMOND MD, Ot J96. 21 ACUTE AND CHRONIC RESPIRATORY FAILURE WI 07/18/2019 VERNON DIAMOND MD Ot K21. 9 GASTRO-ESOPHAGEAL REFLUX DISEASE WITHOUT 07/18/2019 VERNON DIAMOND MD, Ot M19. 91 PRIMARY OSTEOARTHRITIS, UNSPECIFIED SITE 07/18/2019 VERNON DIAMOND MD, Ot M25.512 PAIN IN LEFT SHOULDER 07/18/2019 VERNON DIAMOND MD, Ot M54. 6 PAIN IN THORACIC SPINE 07/18/2019 VERNON DIAMOND MD, Ot M81. 0 AGE-RELATED OSTEOPOROSIS W/O CURRENT PAT 07/18/2019 VERNON DIAMOND MD, Ot N28. 9 DISORDER OF KIDNEY AND URETER, UNSPECIFI 07/18/2019 VERNON DIAMOND MD Ot R79. 89 OTHER SPECIFIED ABNORMAL FINDINGS OF BLO 07/18/2019 VERNON DIAMOND MD, Ot Z68. 42 BODY MASS INDEX (BMI) 45.0-49.9, ADULT 07/18/2019 VERNON DIAMOND MD, Ot Z79. 01 PENITENTIARY (CURRENT) USE OF ANTICOAGULANT 07/18/2019 VERNON DIAMOND MD, Ot Z87.891 PERSONAL HISTORY OF NICOTINE DEPENDENCE 07/19/2019 VERNON DIAMOND MD, Ot D64. 9 ANEMIA, UNSPECIFIED 07/19/2019 VERNON DIAMOND MD, Ot E66. 2 MORBID (SEVERE) OBESITY WITH ALVEOLAR HY 07/19/2019 VERNON DIAMOND MD, Ot E78. 00 PURE HYPERCHOLESTEROLEMIA, UNSPECIFIED 07/19/2019 VERNON DIAMOND MD, Ot F32. 9 MAJOR DEPRESSIVE DISORDER, SINGLE EPISOD 07/19/2019 VERNON DIAMOND MD, Ot F41. 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 0 HYPERTENSIVE HEART DISEASE WITH HEART FA 07/19/2019 VERNON DIAMOND MD, Ot I25. 10 ATHSCL HEART DISEASE OF [place] CORONARY 07/19/2019 VERNON DIAMOND MD, Ot I27. 20 PULMONARY HYPERTENSION, UNSPECIFIED 07/19/2019 VERNON DIAMOND MD, Ot I48. 91 UNSPECIFIED ATRIAL FIBRILLATION 07/19/2019 VERNON DIAMOND MD, Ot I50. 33 ACUTE ON CHRONIC DIASTOLIC (CONGESTIVE) 07/19/2019 VERNON DIAMOND MD, Ot J30. 2 OTHER SEASONAL ALLERGIC RHINITIS 07/19/2019 VERNON DIAMOND MD, Ot J44. 9 CHRONIC OBSTRUCTIVE PULMONARY DISEASE, U 07/19/2019 VERNON DIAMOND MD, Ot J96. 21 ACUTE AND CHRONIC RESPIRATORY FAILURE [place] 07/19/2019 VERNON DIAMOND MD, Ot K21. 9 GASTRO-ESOPHAGEAL REFLUX DISEASE WITHOUT 07/19/2019 VERNON DIAMOND MD, Ot M19. 91 PRIMARY OSTEOARTHRITIS, UNSPECIFIED SITE 07/19/2019 VERNON DIAMOND MD, Ot M25.512 PAIN IN LEFT SHOULDER 07/19/2019 VERNON DIAMOND MD, Ot M54. 6 PAIN IN THORACIC SPINE 07/19/2019 VERNON DIAMOND MD, Ot M81. 0 AGE-RELATED OSTEOPOROSIS W/O CURRENT PAT 07/19/2019 VERNON DIAMOND MD, Ot N28. 9 DISORDER OF KIDNEY AND URETER, UNSPECIFI 07/19/2019 VERNON DIAMOND MD, Ot R79. 89 OTHER SPECIFIED ABNORMAL FINDINGS OF BLO 07/19/2019 VERNON DIAMOND MD, Ot Z68. 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 9 ANEMIA, UNSPECIFIED 07/20/2019 VERNON DIAMOND MD Ot E66. 2 MORBID (SEVERE) OBESITY WITH ALVEOLAR HY 07/20/2019 VERNON DIAMOND MD Ot E78. 00 PURE HYPERCHOLESTEROLEMIA, UNSPECIFIED 07/20/2019 VERNON DIAMOND MD, Ot F32. 9 MAJOR DEPRESSIVE DISORDER, SINGLE EPISOD 07/20/2019 VERNON DIAMOND MD, Ot F41. 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 0 HYPERTENSIVE HEART DISEASE WITH HEART FA 07/20/2019 VERNON DIAMOND MD, Ot I25. 10 ATHSCL HEART DISEASE OF [place] CORONARY 07/20/2019 VERNON DIAMOND MD, Ot I27. 20 PULMONARY HYPERTENSION, UNSPECIFIED 07/20/2019 VERNON DIAMOND MD Ot I48. 91 UNSPECIFIED ATRIAL FIBRILLATION 07/20/2019 VERNON DIAMOND MD, Ot I50. 33 ACUTE ON CHRONIC DIASTOLIC (CONGESTIVE) 07/20/2019 VERNON DIAMOND MD, Ot J30. 2 OTHER SEASONAL ALLERGIC RHINITIS 07/20/2019 VERNON DIAMOND MD, Ot J44. 9 CHRONIC OBSTRUCTIVE PULMONARY DISEASE, U 07/20/2019 VERNON DIAMOND MD, Ot J96. 21 ACUTE AND CHRONIC RESPIRATORY FAILURE [place] 07/20/2019 VERNON DIAMOND MD, Ot K21. 9 GASTRO-ESOPHAGEAL REFLUX DISEASE WITHOUT 07/20/2019 VERNON DIAMOND MD, Ot M19. 91 PRIMARY OSTEOARTHRITIS, UNSPECIFIED SITE 07/20/2019 VERNON DIAMOND MD, Ot M25.512 PAIN IN LEFT SHOULDER 07/20/2019 VERNON DIAMOND MD, Ot M54. 6 PAIN IN THORACIC SPINE 07/20/2019 VERNON DIAMOND MD, Ot M81. 0 AGE-RELATED OSTEOPOROSIS W/O CURRENT PAT 07/20/2019 VERNON DIAMOND MD, Ot N28. 9 DISORDER OF KIDNEY AND URETER, UNSPECIFI 07/20/2019 VERNON DIAMOND MD, Ot R79. 89 OTHER SPECIFIED ABNORMAL FINDINGS OF BLO 07/20/2019 VERNON DIAMOND MD, Ot Z68. 42 BODY MASS INDEX (BMI) 45.0-49.9, ADULT 07/20/2019 VERNON DIAMOND MD, Ot Z79. 01 PENITENTIARY (CURRENT) USE OF ANTICOAGULANT 07/20/2019 VERNON DIAMOND MD, Ot Z87.891 PERSONAL HISTORY OF NICOTINE DEPENDENCE 07/21/2019 VERNON DIAMOND MD, Ot D64. 9 ANEMIA, UNSPECIFIED 07/21/2019 VERNON DIAMOND MD, Ot E66. 2 MORBID (SEVERE) OBESITY WITH ALVEOLAR HY 07/21/2019 VERNON DIAMOND MD, Ot E78. 00 PURE HYPERCHOLESTEROLEMIA, UNSPECIFIED 07/21/2019 VERNON DIAMOND MD, Ot F32. 9 MAJOR DEPRESSIVE DISORDER, SINGLE EPISOD 07/21/2019 VERNON DIAMOND MD, Ot F41. 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 0 HYPERTENSIVE HEART DISEASE WITH HEART FA 07/21/2019 VERNON DIAMOND MD, Ot I25. 10 ATHSCL HEART DISEASE OF [place] CORONARY 07/21/2019 VERNON DIAMOND MD, Ot I27. 20 PULMONARY HYPERTENSION, UNSPECIFIED 07/21/2019 VERNON DIAMOND MD, Ot I48. 91 UNSPECIFIED ATRIAL FIBRILLATION 07/21/2019 VERNON DIAMOND MD, Ot I50. 33 ACUTE ON CHRONIC DIASTOLIC (CONGESTIVE) 07/21/2019 VERNON DIAMOND MD, Ot J30. 2 OTHER SEASONAL ALLERGIC RHINITIS 07/21/2019 VERNON DIAMOND MD, Ot J44. 9 CHRONIC OBSTRUCTIVE PULMONARY DISEASE, U 07/21/2019 VERNON DIAMOND MD, Ot J96. 21 ACUTE AND CHRONIC RESPIRATORY FAILURE [place] 07/21/2019 VERNON DIAMOND MD, Ot K21. 9 GASTRO-ESOPHAGEAL REFLUX DISEASE WITHOUT 07/21/2019 VERNON DIAMOND MD, Ot M19. 91 PRIMARY OSTEOARTHRITIS, UNSPECIFIED SITE 07/21/2019 VERNON DIAMOND MD, Ot M25.512 PAIN IN LEFT SHOULDER 07/21/2019 VERNON DIAMOND MD, Ot M54. 6 PAIN IN THORACIC SPINE 07/21/2019 VERNON DIAMOND MD, Ot M81. 0 AGE-RELATED OSTEOPOROSIS W/O CURRENT PAT 07/21/2019 VERNON DIAMOND MD, Ot N28. 9 DISORDER OF KIDNEY AND URETER, UNSPECIFI 07/21/2019 VERNON DIAMOND MD, Ot R79. 89 OTHER SPECIFIED ABNORMAL FINDINGS OF BLO 07/21/2019 VERNON DIAMOND MD, Ot Z68. 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 9 ANEMIA, UNSPECIFIED 07/21/2019 VERNON DIAMOND MD, Ot E11. 9 TYPE 2 DIABETES MELLITUS WITHOUT COMPLIC 07/21/2019 VERNON DIAMOND MD, Ot E66. 2 MORBID (SEVERE) OBESITY WITH ALVEOLAR HY 07/21/2019 VERNON DIAMOND MD, Ot E78. 00 PURE HYPERCHOLESTEROLEMIA, UNSPECIFIED 07/21/2019 VERNON DIAMOND MD, Ot E78. 5 HYPERLIPIDEMIA, UNSPECIFIED 07/21/2019 VERNON DIAMOND MD, Ot F32. 9 MAJOR DEPRESSIVE DISORDER, SINGLE EPISOD 07/21/2019 VERNON DIAMOND MD, Ot F41. 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 0 HYPERTENSIVE HEART DISEASE WITH HEART FA 07/21/2019 VERNON DIAMOND MD, Ot I13. 0 HYP HRT CHR [place] DIS W HRT FAIL AND ST 07/21/2019 VERNON DIAMOND MD, Ot I25. 10 ATHSCL HEART DISEASE OF [place] CORONARY 07/21/2019 VERNON DIAMOND MD, Ot I27. 20 PULMONARY HYPERTENSION, UNSPECIFIED 07/21/2019 VERNON DIAMOND MD, Ot I48. 0 PAROXYSMAL ATRIAL FIBRILLATION 07/21/2019 VERNON DIAMOND MD, Ot I48. 91 UNSPECIFIED ATRIAL FIBRILLATION 07/21/2019 VERNON DIAMOND MD, Ot I50. 33 ACUTE ON CHRONIC DIASTOLIC (CONGESTIVE) 07/21/2019 VERNON DIAMOND MD, Ot J18. 9 PNEUMONIA, UNSPECIFIED ORGANISM 07/21/2019 VERNON DIAMOND MD, Ot J30. 2 OTHER SEASONAL ALLERGIC RHINITIS 07/21/2019 VERNON DIAMOND MD, Ot J43. 9 EMPHYSEMA, UNSPECIFIED 07/21/2019 VERNON DIAMOND MD, Ot J44. 9 CHRONIC OBSTRUCTIVE PULMONARY DISEASE, U 07/21/2019 VERNON DIAMOND MD, Ot J90 PLEURAL EFFUSION, NOT ELSEWHERE CLASSIFI 07/21/2019 VERNON DIAMOND MD, Ot J96. 21 ACUTE AND CHRONIC RESPIRATORY FAILURE [place] 07/21/2019 VERNON DIAMOND MD, Ot K21. 9 GASTRO-ESOPHAGEAL REFLUX DISEASE WITHOUT 07/21/2019 VERNON DIAMOND MD Ot K92. 2 GASTROINTESTINAL HEMORRHAGE, UNSPECIFIED 07/21/2019 VERNON DIAMOND MD, Ot M19. 91 PRIMARY OSTEOARTHRITIS, UNSPECIFIED SITE 07/21/2019 VERNON DIAMOND MD, Ot M25.512 PAIN IN LEFT SHOULDER 07/21/2019 VERNON DIAMOND MD, Ot M54. 6 PAIN IN THORACIC SPINE 07/21/2019 VERNON DIAMOND MD, Ot M81. 0 AGE-RELATED OSTEOPOROSIS W/O CURRENT PAT 07/21/2019 VERNON DIAMOND MD, Ot N17. 9 ACUTE KIDNEY FAILURE, UNSPECIFIED 07/21/2019 VERNON DIAMOND MD, Ot N18. 9 CHRONIC KIDNEY DISEASE, UNSPECIFIED 07/21/2019 VERNON DIAMOND MD, Ot N28. 9 DISORDER OF KIDNEY AND URETER, UNSPECIFI 07/21/2019 VERNON DIAMOND MD, Ot R22. 2 LOCALIZED SWELLING, MASS AND LUMP, TRUNK 07/21/2019 VERNON DIAMOND MD, Ot R79. 89 OTHER SPECIFIED ABNORMAL FINDINGS OF BLO 07/21/2019 VERNON DIAMOND MD, Ot Z68. 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 9 TYPE 2 DIABETES MELLITUS WITHOUT COMPLIC 08/06/2019 IVAN FONG MD, Ot E66. 2 MORBID (SEVERE) OBESITY WITH ALVEOLAR HY 08/06/2019 IVAN FONG MD, Ot F32. 9 MAJOR DEPRESSIVE DISORDER, SINGLE EPISOD 08/06/2019 IVAN FONG MD, Ot F41. 9 ANXIETY DISORDER, UNSPECIFIED 08/06/2019 IVAN FONG MD, Ot I13. 0 HYP HRT CHR [place] DIS W HRT FAIL AND ST 08/06/2019 IVAN FONG MD, Ot I21. 4 NON-ST ELEVATION (NSTEMI) MYOCARDIAL INF 08/06/2019 IVAN FONG MD, Ot I25. 10 ATHSCL HEART DISEASE OF [place] CORONARY 08/06/2019 IVAN FONG MD, Ot I27. 23 PULMONARY HYPERTENSION DUE TO LUNG DISEA 08/06/2019 IVAN FONG MD, Ot I48. 0 PAROXYSMAL ATRIAL FIBRILLATION 08/06/2019 IVAN FONG MD, Ot I50. 32 CHRONIC DIASTOLIC (CONGESTIVE) HEART RONEL 08/06/2019 IVAN FONG MD, Ot J18. 9 PNEUMONIA, UNSPECIFIED ORGANISM 08/06/2019 IVAN FONG MD, Ot J44. 0 CHR OBSTRUCTIVE PULMON DISEASE WITH (ACU 08/06/2019 IVAN FONG MD, Ot J44. 1 CHRONIC OBSTRUCTIVE PULMONARY DISEASE W 08/06/2019 IVAN FONG MD, Ot J96. 21 ACUTE AND CHRONIC RESPIRATORY FAILURE [place] 08/06/2019 IVAN FONG MD, Ot J96. 22 ACUTE AND CHRONIC RESPIRATORY FAILURE [place] 08/06/2019 IVAN FONG MD, Ot M19. 90 UNSPECIFIED OSTEOARTHRITIS, UNSPECIFIED 08/06/2019 IVAN FONG MD, Ot M54. 9 DORSALGIA, UNSPECIFIED 08/06/2019 IVAN FONG MD, Ot M81. 0 AGE-RELATED OSTEOPOROSIS W/O CURRENT PAT 08/06/2019 IVAN FONG MD, Ot N17. 9 ACUTE KIDNEY FAILURE, UNSPECIFIED 08/06/2019 IVAN FONG MD, Ot N18. 9 CHRONIC KIDNEY DISEASE, UNSPECIFIED 08/06/2019 IVAN FONG MD, Ot R00. 1 BRADYCARDIA, UNSPECIFIED 08/06/2019 IVAN FONG MD, Ot Z68. 42 BODY MASS INDEX (BMI) 45.0-49.9, ADULT 08/06/2019 IVAN FONG MD, Ot Z87.891 PERSONAL HISTORY OF NICOTINE DEPENDENCE 08/06/2019 IVAN FONG MD, Ot Z99. 81 DEPENDENCE ON SUPPLEMENTAL OXYGEN 08/07/2019 IVAN FONG MD Ot E11. 9 TYPE 2 DIABETES MELLITUS WITHOUT COMPLIC 08/07/2019 IVAN FONG MD, Ot E66. 2 MORBID (SEVERE) OBESITY WITH ALVEOLAR HY 08/07/2019 IVAN FONG MD, Ot F32. 9 MAJOR DEPRESSIVE DISORDER, SINGLE EPISOD 08/07/2019 IVAN FONG MD, Ot F41. 9 ANXIETY DISORDER, UNSPECIFIED 08/07/2019 IVAN FONG MD, Ot I13. 0 HYP HRT CHR [place] DIS W HRT FAIL AND ST 08/07/2019 IVAN FONG MD, Ot I21. 4 NON-ST ELEVATION (NSTEMI) MYOCARDIAL INF 08/07/2019 IVAN FONG MD, Ot I25. 10 ATHSCL HEART DISEASE OF [place] CORONARY 08/07/2019 IVAN FONG MD, Ot I27. 23 PULMONARY HYPERTENSION DUE TO LUNG DISEA 08/07/2019 IVAN FONG MD, Ot I48. 0 PAROXYSMAL ATRIAL FIBRILLATION 08/07/2019 IVAN FONG MD, Ot I50. 32 CHRONIC DIASTOLIC (CONGESTIVE) HEART RONEL 08/07/2019 IVAN FONG MD, Ot J18. 9 PNEUMONIA, UNSPECIFIED ORGANISM 08/07/2019 IVAN FONG MD, Ot J44. 0 CHR OBSTRUCTIVE PULMON DISEASE WITH (ACU 08/07/2019 IVAN FONG MD, Ot J44. 1 CHRONIC OBSTRUCTIVE PULMONARY DISEASE W 08/07/2019 IVAN FONG MD, Ot J96. 21 ACUTE AND CHRONIC RESPIRATORY FAILURE [place] 08/07/2019 IVAN FONG MD, Ot J96. 22 ACUTE AND CHRONIC RESPIRATORY FAILURE [place] 08/07/2019 IVAN FONG MD, Ot M19. 90 UNSPECIFIED OSTEOARTHRITIS, UNSPECIFIED 08/07/2019 IVAN FONG MD, Ot M54. 9 DORSALGIA, UNSPECIFIED 08/07/2019 IVAN FONG MD, Ot M81. 0 AGE-RELATED OSTEOPOROSIS W/O CURRENT PAT 08/07/2019 IVAN FONG MD, Ot N17. 9 ACUTE KIDNEY FAILURE, UNSPECIFIED 08/07/2019 IVAN FONG MD, Ot N18. 9 CHRONIC KIDNEY DISEASE, UNSPECIFIED 08/07/2019 IVAN FONG MD, Ot R00. 1 BRADYCARDIA, UNSPECIFIED 08/07/2019 IVAN FONG MD, Ot Z68. 42 BODY MASS INDEX (BMI) 45.0-49.9, ADULT 08/07/2019 IVAN FONG MD, Ot Z87.891 PERSONAL HISTORY OF NICOTINE DEPENDENCE 08/07/2019 IVAN FONG MD, Ot Z99. 81 DEPENDENCE ON SUPPLEMENTAL OXYGEN 08/07/2019 IVAN FONG MD, Ot D63. 8 ANEMIA IN OTHER CHRONIC DISEASES CLASSIF 08/07/2019 IVAN FONG MD, Ot E11. 9 TYPE 2 DIABETES MELLITUS WITHOUT COMPLIC 08/07/2019 IVAN FONG MD, Ot E66. 2 MORBID (SEVERE) OBESITY WITH ALVEOLAR HY 08/07/2019 IVAN FONG MD, Ot E87. 2 ACIDOSIS 08/07/2019 IVAN FONG MD, Ot F32. 9 MAJOR DEPRESSIVE DISORDER, SINGLE EPISOD 08/07/2019 IVAN FONG MD, Ot F41. 9 ANXIETY DISORDER, UNSPECIFIED 08/07/2019 IVAN FONG MD, Ot I13. 0 HYP HRT CHR [place] DIS W HRT FAIL AND ST 08/07/2019 IVAN FONG MD, Ot I21. 4 NON-ST ELEVATION (NSTEMI) MYOCARDIAL INF 08/07/2019 IVAN FONG MD, Ot I25. 10 ATHSCL HEART DISEASE OF [place] CORONARY 08/07/2019 IVAN FONG MD, Ot I48. 0 PAROXYSMAL ATRIAL FIBRILLATION 08/07/2019 IVAN FONG MD, Ot I49. 5 SICK SINUS SYNDROME 08/07/2019 IVAN FONG MD, Ot I50. 32 CHRONIC DIASTOLIC (CONGESTIVE) HEART RONEL 08/07/2019 IVAN FONG MD, Ot J15. 1 PNEUMONIA DUE TO PSEUDOMONAS 08/07/2019 IVAN FONG MD, Ot J43. 9 EMPHYSEMA, UNSPECIFIED 08/07/2019 IVAN FONG MD, Ot J86. 9 PYOTHORAX WITHOUT FISTULA 08/07/2019 IVAN FONG MD, Ot J90 PLEURAL EFFUSION, NOT ELSEWHERE CLASSIFI 08/07/2019 IVAN FONG MD, Ot J96. 21 ACUTE AND CHRONIC RESPIRATORY FAILURE [place] 08/07/2019 IVAN FONG MD, Ot J96. 22 ACUTE AND CHRONIC RESPIRATORY FAILURE [place] 08/07/2019 IVAN FONG MD, Ot J98. 09 OTHER DISEASES OF [place], NOT ELSEWHER 08/07/2019 IVAN FONG MD Ot M19. 90 UNSPECIFIED OSTEOARTHRITIS, UNSPECIFIED 08/07/2019 IVAN FONG MD, Ot M54. 9 DORSALGIA, UNSPECIFIED 08/07/2019 IVAN FONG MD Ot M81. 0 AGE-RELATED OSTEOPOROSIS W/O CURRENT PAT 08/07/2019 IVAN FONG MD Ot N17. 9 ACUTE KIDNEY FAILURE, UNSPECIFIED 08/07/2019 IVAN FONG MD, Ot N18. 9 CHRONIC KIDNEY DISEASE, UNSPECIFIED 08/07/2019 IVAN FONG MD Ot R00. 1 BRADYCARDIA, UNSPECIFIED 08/07/2019 IVAN FONG MD, Ot Z68. 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 81 DEPENDENCE ON SUPPLEMENTAL OXYGEN 08/15/2019 [place] DO, JIGNESH Ot E11.40 TYPE 2 DIABETES MELLITUS WITH DIABETIC N 08/15/2019 [place] DO, JIGNESH Ot E66.01 MORBID (SEVERE) OBESITY DUE TO EXCESS CA 08/15/2019 [place] DO, JIGNESH Ot E78.5 HYPERLIPIDEMIA, UNSPECIFIED 08/15/2019 [place] DO, JIGNESH Ot F32.9 MAJOR DEPRESSIVE DISORDER, SINGLE EPISOD 08/15/2019 [place] DO, JIGNESH Ot F41.9 ANXIETY DISORDER, UNSPECIFIED 08/15/2019 [place] DO, JIGNESH Ot G47.33 OBSTRUCTIVE SLEEP APNEA (ADULT) (PEDIATR 08/15/2019 [place] DO, JIGNESH Ot G72.81 CRITICAL ILLNESS MYOPATHY 08/15/2019 [place] DO, JIGNESH Ot G92 TOXIC ENCEPHALOPATHY 08/15/2019 [place] DO, JIGNESH Ot H54.3 UNQUALIFIED VISUAL LOSS, BOTH EYES 08/15/2019 [place] DO, JIGNESH Ot I13.0 HYP HRT CHR [place] DIS W HRT FAIL AND ST 08/15/2019 [place] DO, JIGNESH Ot I25.10 ATHSCL HEART DISEASE OF [place] CORONARY 08/15/2019 [place] DO, JIGNESH Ot I27.20 PULMONARY HYPERTENSION, UNSPECIFIED 08/15/2019 [place] DO, JIGNESH Ot I48.0 PAROXYSMAL ATRIAL FIBRILLATION 08/15/2019 [place] DO, JIGNESH Ot I50.9 HEART FAILURE, UNSPECIFIED 08/15/2019 [place] DO, JIGNESH Ot J42 UNSPECIFIED CHRONIC BRONCHITIS 08/15/2019 [place] DO, JIGNESH Ot J43.9 EMPHYSEMA, UNSPECIFIED 08/15/2019 [place] DO, JIGNESH Ot J96.21 ACUTE AND CHRONIC RESPIRATORY FAILURE [place] 08/15/2019 [place] DO, JIGNESH Ot J96.22 ACUTE AND CHRONIC RESPIRATORY FAILURE [place] 08/15/2019 [place] DO, JIGNESH Ot M54.9 DORSALGIA, UNSPECIFIED 08/15/2019 [place] DO, JIGNESH Ot M81.0 AGE-RELATED OSTEOPOROSIS W/O CURRENT PAT 08/15/2019 [place] DO, JIGNESH Ot N18.9 CHRONIC KIDNEY DISEASE, UNSPECIFIED 08/15/2019 [place] DO, JIGNESH Ot R19.7 DIARRHEA, UNSPECIFIED 08/15/2019 PADMINI SAWYER JIGNESH Ot R29.6 REPEATED FALLS 08/15/2019 PADMINI SAWYER JIGNESH Ot Z68.42 BODY MASS INDEX (BMI) 45.0-49.9, ADULT 08/15/2019 PADMINI SAWYER JIGNESH Ot Z87.01 PERSONAL HISTORY OF PNEUMONIA (RECURRENT 08/15/2019 PADMINI SAWYER JIGNESH Ot Z87.89 1 PERSONAL HISTORY OF NICOTINE DEPENDENCE 08/17/2019 IVAN FONG MD Ot E11. 40 TYPE 2 DIABETES MELLITUS WITH DIABETIC N 08/17/2019 IVAN FONG MD Ot E66. 2 MORBID (SEVERE) OBESITY WITH ALVEOLAR HY 08/17/2019 IVAN FONG MD Ot E78. 00 PURE HYPERCHOLESTEROLEMIA, UNSPECIFIED 08/17/2019 IVAN FONG MD Ot F32. 9 MAJOR DEPRESSIVE DISORDER, SINGLE EPISOD 08/17/2019 IVAN FONG MD Ot F41. 9 ANXIETY DISORDER, UNSPECIFIED 08/17/2019 IVAN FONG MD Ot I11. 0 HYPERTENSIVE HEART DISEASE WITH HEART FA 08/17/2019 IVAN FONG MD Ot I25. 10 ATHSCL HEART DISEASE OF [place] CORONARY 08/17/2019 IVAN FONG MD Ot I27. 20 PULMONARY HYPERTENSION, UNSPECIFIED 08/17/2019 IVAN FONG MD Ot I38 ENDOCARDITIS, VALVE UNSPECIFIED 08/17/2019 IVAN FONG MD Ot I48. 0 PAROXYSMAL ATRIAL FIBRILLATION 08/17/2019 IVAN FONG MD Ot I50. 32 CHRONIC DIASTOLIC (CONGESTIVE) HEART RONEL 08/17/2019 IVAN FONG MD Ot J43. 9 EMPHYSEMA, UNSPECIFIED 08/17/2019 IVAN FONG MD Ot J96. 21 ACUTE AND CHRONIC RESPIRATORY FAILURE [place] 08/17/2019 IVAN FONG MD Ot J96. 22 ACUTE AND CHRONIC RESPIRATORY FAILURE [place] 08/17/2019 IVAN FONG MD Ot K21. 9 GASTRO-ESOPHAGEAL REFLUX DISEASE WITHOUT 08/17/2019 IVAN FONG MD Ot M19. 91 PRIMARY OSTEOARTHRITIS, UNSPECIFIED SITE 08/17/2019 IVAN FONG MD Ot M54. 9 DORSALGIA, UNSPECIFIED 08/17/2019 IVAN FONG MD Ot M81. 0 AGE-RELATED OSTEOPOROSIS W/O CURRENT PAT 08/17/2019 IVAN FONG MD, Ot N28. 9 DISORDER OF KIDNEY AND URETER, UNSPECIFI 08/17/2019 IVAN FONG MD, Ot Z68. 42 BODY MASS INDEX (BMI) 45.0-49.9, ADULT 08/17/2019 IVAN FONG MD, Ot Z87.891 PERSONAL HISTORY OF NICOTINE DEPENDENCE 08/21/2019 IVAN FONG MD, Ot D64. 9 ANEMIA, UNSPECIFIED 08/21/2019 IVAN FONG MD Ot E11. 9 TYPE 2 DIABETES MELLITUS WITHOUT COMPLIC 08/21/2019 IVAN FONG MD, Ot E66. 2 MORBID (SEVERE) OBESITY WITH ALVEOLAR HY 08/21/2019 IVAN FONG MD, Ot E78. 00 PURE HYPERCHOLESTEROLEMIA, UNSPECIFIED 08/21/2019 IVAN FONG MD, Ot E78. 5 HYPERLIPIDEMIA, UNSPECIFIED 08/21/2019 IVAN FONG MD Ot F32. 9 MAJOR DEPRESSIVE DISORDER, SINGLE EPISOD 08/21/2019 IVAN FONG MD, Ot F41. 9 ANXIETY DISORDER, UNSPECIFIED 08/21/2019 IVAN FONG MD Ot G89. 29 OTHER CHRONIC PAIN 08/21/2019 IVAN FONG MD Ot I11. 0 HYPERTENSIVE HEART DISEASE WITH HEART FA 08/21/2019 IVAN FONG MD Ot I25. 10 ATHSCL HEART DISEASE OF [place] CORONARY 08/21/2019 IVAN FONG MD Ot I25. 2 OLD MYOCARDIAL INFARCTION 08/21/2019 IVAN FONG MD Ot I27. 20 PULMONARY HYPERTENSION, UNSPECIFIED 08/21/2019 IVAN FONG MD Ot I48. 0 PAROXYSMAL ATRIAL FIBRILLATION 08/21/2019 IVAN FONG MD Ot I49. 5 SICK SINUS SYNDROME 08/21/2019 IVAN FONG MD Ot I50. 32 CHRONIC DIASTOLIC (CONGESTIVE) HEART RONEL 08/21/2019 IVAN FONG MD, Ot J43. 9 EMPHYSEMA, UNSPECIFIED 08/21/2019 IVAN FONG MD Ot J96. 21 ACUTE AND CHRONIC RESPIRATORY FAILURE [place] 08/21/2019 IVAN FONG MD Ot J96. 22 ACUTE AND CHRONIC RESPIRATORY FAILURE [place] 08/21/2019 IVAN FONG MD Ot K21. 9 GASTRO-ESOPHAGEAL REFLUX DISEASE WITHOUT 08/21/2019 IVAN FONG MD, Ot M19. 91 PRIMARY OSTEOARTHRITIS, UNSPECIFIED SITE 08/21/2019 IVAN FONG MD, Ot M54. 5 LOW BACK PAIN 08/21/2019 IVAN FONG MD, Ot M81. 0 AGE-RELATED OSTEOPOROSIS W/O CURRENT PAT 08/21/2019 IVAN FONG MD, Ot Z68. 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 19 PERSONAL HISTORY OF OTHER DISEASES OF [place] 08/21/2019 IVAN FONG MD, Ot Z87.891 PERSONAL HISTORY OF NICOTINE DEPENDENCE 08/21/2019 IVAN FONG MD, Ot Z91. 19 PATIENT'S NONCOMPLIANCE W OT MEDICAL TR 08/21/2019 IVAN FONG MD, Ot Z99. 81 DEPENDENCE ON SUPPLEMENTAL OXYGEN Procedures Code Description Performed By Per carlos On 37.23 RT/L EFT HEART CARD CATH 08/18/2011 88.42 CONT RAST AORTOGRAM 08/18/2011 88.53 LT H EART ANGIOCARDIOGRAM 08/18/2011 88.56 REINIER RYAN ARTERIOGR-2 CATH 08/18/2011 38.91 JENNY RIAL CATHETERIZATION 01/28/2014 [id number] RE STORATION OF CARDIAC RHYTHM, SINGLE 11/14/2015 [id number] IN SERTION OF INFUSION DEV INTO SUP VENA 06/15/2016 [id number] EX TIRPATION OF MATTER FROM RIGHT MAIN BR 09/19/2018 [id number] EX TIRPATION OF MATTER FROM LEFT MAIN BRO 09/19/2018 [id number] RE SPIRATORY VENTILATION, 24- 96 CONSECUTI 09/19/2018 [id number] RE SPIRATORY VENTILATION, GREATER THAN 96 09/19/2018 [id number] EX TIRPATION OF MATTER FROM RIGHT MAIN BR 09/23/2018 [id number] EX TIRPATION OF MATTER FROM LEFT MAIN BRO 09/23/2018 [id number] EX CISION OF ESOPHAGOGASTRIC JUNCTION, EN 06/28/2019 [id number] EX CISION OF STOMACH, ENDO, DIAGN 06/28/2019 [id number] EX CISION OF STOMACH, PYLORUS, ENDO, DIAG 06/28/2019 [id number] EX CISION OF ASCENDING COLON, ENDO, DIAGN 06/28/2019 [id number] EX CISION OF TRANSVERSE COLON, ENDO, DIAG 06/28/2019 [id number] EX CISION OF SIGMOID COLON, ENDO, DIAGN 06/28/2019 [id number] EX CISION OF RECTUM, ENDO, DIAGN 06/28/[id number] MEDINA OF RIGHT LOWER LUNG LOBE, ENDO, 07/03/2019 [id number] EX CISION OF RIGHT LOWER LOBE BRONCHUS, E 07/03/[id number] MEDINA OF RIGHT PLEURAL CAVITY, PERCUT 07/17/2019 [id number] IN SERTION OF ENDOTRACHEAL AIRWAY INTO TR 08/03/2019 [id number] RE SPIRATORY VENTILATION, 24- 96 CONSECUTI 08/03/2019 [id number] EX TIRPATION OF MATTER FROM RIGHT MAIN BR 08/05/2019 [id number] EX TIRPATION OF MATTER FROM LEFT MAIN BRO 08/05/2019 [id number] RE SPIRATORY VENTILATION, LESS THAN 24 CO 08/07/2019 [id number] SISTANCE WITH RESPIRATORY VENTILATION, 08/15/2019 Results Test Result Range Arterial blood gas measurement - 6 22:44 Blood pCO2 105 mm[Hg] 35-45 Blood pO2 96 mm[Hg] 79-93 Arterial blood bicarbonate measurement (moles/volume) 46 mmol/L 23-27 Arterial blood base excess by calculation 15.2 mmo l/L -2.5-2.5 Arterial blood oxygen saturation measurement 96 % 94-100 * Inhaled oxygen flow rate 60% FIO2 BIPAP NRG Arterial blood pH measurement with patient temperature correction 7.26 7.37-7.43 Arterial blood carbon dioxide, total measurement (mole s/volume) 49.6 mmol/L 21.0-31.0 Body site R RAD NRG Assessment of wrist artery patency prior to arterial p uncture YES-POS NRG Setting of ventilation mode NO NR G Measurement of body temperature 98.2 NRG Complete blood count (CBC) with automate d white blood cell (WBC) differential - 04/10/16 22:57 Blood leukocytes automated count (number/volume) 13.1 10*3/uL 4.3-11.0 Blood erythrocytes automated count (number/volume) 4.11 10*6/uL 4.35-5.85 Venous blood hemoglobin measurement (mass/volume) 10.9 g/dL 13.3-17.7 Blood hematocrit (volume fraction) 38 % 40-54 Automated erythrocyte mean corpuscular volume 93 [ foz_us] 80-99 Automated erythrocyte mean corpuscular h emoglobin (mass per erythrocyte) 27 pg 25-34 Automated erythrocyte mean corpuscular h emoglobin concentration measurement (mass/volume) 28 g/dL 32-36 Automated erythrocyte distribution width ratio 17. 4 % 10.0- 14.5 Automated blood platelet count (count/volume) 181 10*3/uL 130-400 Automated blood platelet mean volume measurement 9.4 [foz_us] 7.4-10.4 Automated blood neutrophils/100 leukocytes 76 % 42-75 Automated blood lymphocytes/100 leukocytes 12 % 12-44 Blood monocytes/100 leukocytes 11 % 0-12 Automated blood eosinophils/100 leukocytes 1 % 0-10 Automated blood basophils/100 leukocytes 0 % 0-10 Blood neutrophils automated count (number/volume) 9.9 10*3 1.8-7.8 Blood lymphocytes automated count (number/volume) 1.6 10*3 1.0-4.0 Blood monocytes automated count (number/volume) 1. 4 10*3 0.0-1.0 Automated eosinophil count 0.2 10*3/uL 0 .0-0.3 Automated blood basophil count (count/volume) 0.0 10*3/uL 0.0-0.1 PT panel in platelet poor plasma by coag ulation assay - 04/10/16 22:57 Prothrombin time (PT) in platelet poor plasma by coagu lation assay 12.8 s 12.2-14.7 INR in platelet poor plasma or blood by coagulation as say 1.0 0.8-1.4 Activated partial thromboplastin time (a PTT) in platelet poor plasma bycoagulation assay - 04/10/16 22:57 Activated partial thromboplastin time (a PTT) in platelet poor plasma bycoagulation assay 32 s 24-35 Blood lactic acid measurement (moles/vol ume) - 04/10/16 22:57 Blood lactic acid measurement (moles/volume) 0.5 m mol/L 0.5- 2.0 Comprehensive metabolic panel - 04/10/16 22:57 Serum or plasma sodium measurement (moles/volume) 141 mmol/L 135-145 Serum or plasma potassium measurement (moles/volume) 4.4 mmol/L 3.6-5.0 Serum or plasma chloride measurement (moles/volume) 92 mmol/L 98-107 Carbon dioxide 41 mmol/L 21-32 Serum or plasma anion gap determination (moles/volume) 8 mmol/L 5-14 Serum or plasma urea nitrogen measurement (mass/volume ) 21 mg/dL 7-18 Serum or plasma creatinine measurement (mass/volume) 1.09 mg/dL 0.60-1.30 Serum or plasma urea nitrogen/creatinine mass ratio 19 NRG Serum or plasma creatinine measurement w ith calculation of estimated glomerular filtration rate > NRG Serum or plasma glucose measurement (mass/volume) 147 mg/dL 70-105 Serum or plasma calcium measurement (mass/volume) 9.5 mg/dL 8.5-10.1 Serum or plasma total bilirubin measurement (mass/volu me) 0.5 mg/dL 0.1-1.0 Serum or plasma alkaline phosphatase lourdes surement (enzymatic activity/volume) 138 U/L 40-136 Serum or plasma aspartate aminotransfera se measurement (enzymatic activity/volume) 25 U/L 5-34 Serum or plasma alanine aminotransferase measurement (enzymatic activity/volume) 37 U/L 0-55 Serum or plasma protein measurement (mass/volume) 7.6 g/dL 6.4-8.2 Serum or plasma albumin measurement (mass/volume) 3.8 g/dL 3.2-4.5 Magnesium - 04/10/16 22:57 Magnesium 2.0 mg/dL 1.8-2.4 Serum or plasma creatine kinase measurem ent (enzymatic activity/volume) - 04/10/16 22:57 Serum or plasma creatine kinase measurem ent (enzymatic activity/volume) 18 U/L 30-200 Serum or plasma creatine kinase MB measu rement (enzymatic activity/volume) - 04/10/16 22:57 Serum or plasma creatine kinase MB measu rement (enzymatic activity/volume) 0.8 ng/mL <6.6 Serum or plasma troponin i.cardiac measu rement (mass/volume) - 04/10/16 22:57 Serum or plasma troponin i.cardiac measurement (mass/v olume) < ng/mL <0.30 Serum or plasma lithium measurement (mol es/volume) - 04/10/16 22:57 BNP level 188.6 pg/mL <100.0 Bacterial blood culture - 04/10/16 22:57 Bacterial blood culture NG NRG Bacterial blood culture - 04/10/16 23:05 Bacterial blood culture NG NRG Arterial blood gas measurement - 6 23:48 Blood pCO2 99 mm[Hg] 35-45 Blood pO2 96 mm[Hg] 79-93 Arterial blood bicarbonate measurement (moles/volume) 46 mmol/L 23-27 Arterial blood base excess by calculation 16.1 mmo l/L -2.5-2.5 Arterial blood oxygen saturation measurement 97 % 94-100 * Inhaled oxygen flow rate 60% BIPAP NR G Arterial blood pH measurement with patient temperature correction 7.29 7.37-7.43 Arterial blood carbon dioxide, total measurement (mole s/volume) 49.5 mmol/L 21.0-31.0 Body site R RAD NRG Assessment of wrist artery patency prior to arterial p uncture YES-POS NRG Setting of ventilation mode YES NR G Measurement of body temperature 98.2 NRG Complete urinalysis with reflex to cultu re - 04/11/16 01:15 Urine color determination YELLOW NRG Urine clarity determination CLEAR NR G Urine pH measurement by test strip 6 5-9 Specific gravity of urine by test strip 1.015 1.016-1.022 Urine protein assay by test strip, semi-quantitative 3+ NEGATIVE Urine glucose detection by automated test strip NE GATIVE NEGATIVE Erythrocytes detection in urine sediment by light micr oscopy NEGATIVE NEGATIVE Urine ketones detection by automated test strip NE GATIVE NEGATIVE Urine nitrite detection by test strip NEGATIVE NEGATIVE Urine total bilirubin detection by test strip NEGA TIVE NEGATIVE Urine urobilinogen measurement by automated test strip (mass/volume) NORMAL NORMAL Urine leukocyte esterase detection by dipstick NEG ATIVE NEGATIVE Automated urine sediment erythrocyte cou nt by microscopy (number/high power field) RARE NRG Automated urine sediment leukocyte count by microscopy (number/high power field) RARE NRG Bacteria detection in urine sediment by light microsco py NEGATIVE NRG Squamous epithelial cells detection in u rine sediment by light microscopy NONE NRG Crystals detection in urine sediment by light microsco py NONE NRG Casts detection in urine sediment by light microscopy PRESENT NRG Mucus detection in urine sediment by light microscopy SMALL NRG Complete urinalysis with reflex to culture NO NRG Hyaline casts detection in urine sediment by light jenny roscopy 5-10 NRG Methicillin resistant Staphylococcus aur eus (MRSA) screening culture - 04/11/16 01:35 Methicillin resistant Staphylococcus aureus (MRSA) scr eening culture NEG NRG Arterial blood gas measurement - 6 01:40 Blood pCO2 91 mm[Hg] 35-45 Blood pO2 89 mm[Hg] 79-93 Arterial blood bicarbonate measurement (moles/volume) 46 mmol/L 23-27 Arterial blood base excess by calculation 15.4 mmo l/L -2.5-2.5 Arterial blood oxygen saturation measurement 97 % 94-100 * Inhaled oxygen flow rate 60% BIPAP NR G Arterial blood pH measurement with patient temperature correction 7.32 7.37-7.43 Arterial blood carbon dioxide, total measurement (mole s/volume) 48.6 mmol/L 21.0-31.0 Body site L RAD NRG Assessment of wrist artery patency prior to arterial p uncture YES-POS NRG Setting of ventilation mode NO NR G Measurement of body temperature 96.6 NRG Arterial blood gas measurement - 6 04:20 Blood pCO2 81 mm[Hg] 35-45 Blood pO2 66 mm[Hg] 79-93 Arterial blood bicarbonate measurement (moles/volume) 44 mmol/L 23-27 Arterial blood base excess by calculation 14.7 mmo l/L -2.5-2.5 Arterial blood oxygen saturation measurement 94 % 94-100 * Inhaled oxygen flow rate 40%BIPAP NRG Arterial blood pH measurement with patient temperature correction 7.35 7.37-7.43 Arterial blood carbon dioxide, total measurement (mole s/volume) 46.3 mmol/L 21.0-31.0 Body site L RAD NRG Assessment of wrist artery patency prior to arterial p uncture YES-POS NRG Setting of ventilation mode NO NR G Measurement of body temperature 97.3 NRG Complete blood count (CBC) with automate d white blood cell (WBC) differential - 04/11/16 04:30 Blood leukocytes automated count (number/volume) 13.4 10*3/uL 4.3-11.0 Blood erythrocytes automated count (number/volume) 4.19 10*6/uL 4.35-5.85 Venous blood hemoglobin measurement (mass/volume) 11.2 g/dL 13.3-17.7 Blood hematocrit (volume fraction) 39 % 40-54 Automated erythrocyte mean corpuscular volume 93 [ foz_us] 80-99 Automated erythrocyte mean corpuscular h emoglobin (mass per erythrocyte) 27 pg 25-34 Automated erythrocyte mean corpuscular h emoglobin concentration measurement (mass/volume) 29 g/dL 32-36 Automated erythrocyte distribution width ratio 17. 5 % 10.0- 14.5 Automated blood platelet count (count/volume) 178 10*3/uL 130-400 Automated blood platelet mean volume measurement 9.5 [foz_us] 7.4-10.4 Automated blood neutrophils/100 leukocytes 92 % 42-75 Automated blood lymphocytes/100 leukocytes 6 % 12-44 Blood monocytes/100 leukocytes 2 % 0-12 Automated blood eosinophils/100 leukocytes 0 % 0-10 Automated blood basophils/100 leukocytes 0 % 0-10 Blood neutrophils automated count (number/volume) 12.4 10*3 1.8-7.8 Blood lymphocytes automated count (number/volume) 0.8 10*3 1.0-4.0 Blood monocytes automated count (number/volume) 0. 2 10*3 0.0-1.0 Automated eosinophil count 0.0 10*3/uL 0 .0-0.3 Automated blood basophil count (count/volume) 0.0 10*3/uL 0.0-0.1 Comprehensive metabolic panel - 04/11/16 04:30 Serum or plasma sodium measurement (moles/volume) 141 mmol/L 135-145 Serum or plasma potassium measurement (moles/volume) 4.6 mmol/L 3.6-5.0 Serum or plasma chloride measurement (moles/volume) 91 mmol/L 98-107 Carbon dioxide 39 mmol/L 21-32 Serum or plasma anion gap determination (moles/volume) 11 mmol/L 5-14 Serum or plasma urea nitrogen measurement (mass/volume ) 23 mg/dL 7-18 Serum or plasma creatinine measurement (mass/volume) 1.08 mg/dL 0.60-1.30 Serum or plasma urea nitrogen/creatinine mass ratio 21 NRG Serum or plasma creatinine measurement w ith calculation of estimated glomerular filtration rate > NRG Serum or plasma glucose measurement (mass/volume) 183 mg/dL 70-105 Serum or plasma calcium measurement (mass/volume) 9.6 mg/dL 8.5-10.1 Serum or plasma total bilirubin measurement (mass/volu me) 0.4 mg/dL 0.1-1.0 Serum or plasma alkaline phosphatase lourdes surement (enzymatic activity/volume) 136 U/L 40-136 Serum or plasma aspartate aminotransfera se measurement (enzymatic activity/volume) 21 U/L 5-34 Serum or plasma alanine aminotransferase measurement (enzymatic activity/volume) 34 U/L 0-55 Serum or plasma protein measurement (mass/volume) 7.6 g/dL 6.4-8.2 Serum or plasma albumin measurement (mass/volume) 3.8 g/dL 3.2-4.5 Serum or plasma phosphate measurement (m ass/volume) - 04/11/16 04:30 Serum or plasma phosphate measurement (mass/volume) 3.4 mg/dL 2.3-4.7 Magnesium - 04/11/16 04:30 Magnesium 2.0 mg/dL 1.8-2.4 Blood manual differential performed dete ction - 04/11/16 04:30 Blood monocytes/100 leukocytes 1 % NRG Manual blood segmented neutrophils/100 leukocytes 90 % NRG Blood band neutrophils/100 leukocytes 2 % NRG Manual blood lymphocytes/100 leukocytes 5 % NRG Manual eosinophils/100 leukocytes in nose 0 % NRG Manual blood basophils/100 leukocytes 0 % NRG Blood lymphocytes variant/100 leukocytes 2 % NRG Blood polychromasia detection by light microscopy SLIGHT NRG Blood anisocytosis detection by light microscopy S LIGHT NRG Blood macrocytes detection by light microscopy [facility] NRG Blood toxic granules detection by light microscopy 1+ NRG Blood [facility]ochrom[facility] detection by [facility] Blood microcytes detection by light microscopy [facility] NRG Blood stomatocytes detection by light microscopy [facility] NRG Capillary blood glucose measurement by g lucometer (mass/volume) - 04/11/16 12:08 Capillary blood glucose measurement by glucometer (mas s/volume) 238 mg/dL 70-110 Capillary blood glucose measurement by g lucometer (mass/volume) - 04/11/16 15:54 Capillary blood glucose measurement by glucometer (mas s/volume) 256 mg/dL 70-110 Capillary blood glucose measurement by g lucometer (mass/volume) - 04/11/16 21:00 Capillary blood glucose measurement by glucometer (mas s/volume) 230 mg/dL 70-110 Complete blood count (CBC) with automate d white blood cell (WBC) differential - 04/12/16 04:05 Blood leukocytes automated count (number/volume) 13.9 10*3/uL 4.3-11.0 Blood erythrocytes automated count (number/volume) 3.94 10*6/uL 4.35-5.85 Venous blood hemoglobin measurement (mass/volume) 10.6 g/dL 13.3-17.7 Blood hematocrit (volume fraction) 35 % 40-54 Automated erythrocyte mean corpuscular volume 90 [ foz_us] 80-99 Automated erythrocyte mean corpuscular h emoglobin (mass per erythrocyte) 27 pg 25-34 Automated erythrocyte mean corpuscular h emoglobin concentration measurement (mass/volume) 30 g/dL 32-36 Automated erythrocyte distribution width ratio 17. 2 % 10.0- 14.5 Automated blood platelet count (count/volume) 190 10*3/uL 130-400 Automated blood platelet mean volume measurement 10.7 [foz_us] 7.4-10.4 Automated blood neutrophils/100 leukocytes 86 % 42-75 Automated blood lymphocytes/100 leukocytes 6 % 12-44 Blood monocytes/100 leukocytes 4 % 0-12 Automated blood eosinophils/100 leukocytes 4 % 0-10 Automated blood basophils/100 leukocytes 0 % 0-10 Blood neutrophils automated count (number/volume) 12.0 10*3 1.8-7.8 Blood lymphocytes automated count (number/volume) 0.8 10*3 1.0-4.0 Blood monocytes automated count (number/volume) 0. 6 10*3 0.0-1.0 Automated eosinophil count 0.5 10*3/uL 0 .0-0.3 Automated blood basophil count (count/volume) 0.0 10*3/uL 0.0-0.1 Whole blood basic metabolic panel - 05/20 04:05 Serum or plasma sodium measurement (moles/volume) 138 mmol/L 135-145 Serum or plasma potassium measurement (moles/volume) 4.6 mmol/L 3.6-5.0 Serum or plasma chloride measurement (moles/volume) 93 mmol/L 98-107 Carbon dioxide 34 mmol/L 21-32 Serum or plasma anion gap determination (moles/volume) 11 mmol/L 5-14 Serum or plasma urea nitrogen measurement (mass/volume ) 34 mg/dL 7-18 Serum or plasma creatinine measurement (mass/volume) 0.99 mg/dL 0.60-1.30 Serum or plasma urea nitrogen/creatinine mass ratio 34 NRG Serum or plasma creatinine measurement w ith calculation of estimated glomerular filtration rate > NRG Serum or plasma glucose measurement (mass/volume) 162 mg/dL 70-105 Serum or plasma calcium measurement (mass/volume) 9.5 mg/dL 8.5-10.1 Capillary blood glucose measurement by g lucometer (mass/volume) - 04/12/16 05:18 Capillary blood glucose measurement by glucometer (mas s/volume) 208 mg/dL 70-110 Capillary blood glucose measurement by g lucometer (mass/volume) - 04/12/16 11:11 Capillary blood glucose measurement by glucometer (mas s/volume) 192 mg/dL 70-110 Capillary blood glucose measurement by g lucometer (mass/volume) - 04/12/16 16:12 Capillary blood glucose measurement by glucometer (mas s/volume) 157 mg/dL 70-110 Capillary blood glucose measurement by g lucometer (mass/volume) - 04/12/16 20:33 Capillary blood glucose measurement by glucometer (mas s/volume) 235 mg/dL 70-110 Automated blood complete blood count (he mogram) panel - 04/13/16 04:10 Blood leukocytes automated count (number/volume) 14.0 10*3/uL 4.3-11.0 Blood erythrocytes automated count (number/volume) 4.21 10*6/uL 4.35-5.85 Venous blood hemoglobin measurement (mass/volume) 11.3 g/dL 13.3-17.7 Blood hematocrit (volume fraction) 38 % 40-54 Automated erythrocyte mean corpuscular volume 91 [ foz_us] 80-99 Automated erythrocyte mean corpuscular h emoglobin (mass per erythrocyte) 27 pg 25-34 Automated erythrocyte mean corpuscular h emoglobin concentration measurement (mass/volume) 30 g/dL 32-36 Automated erythrocyte distribution width ratio 17. 4 % 10.0- 14.5 Automated blood platelet count (count/volume) 199 10*3/uL 130-400 Automated blood platelet mean volume measurement 10.1 [foz_us] 7.4-10.4 Whole blood basic metabolic panel - 04/04 04:10 Serum or plasma sodium measurement (moles/volume) 141 mmol/L 135-145 Serum or plasma potassium measurement (moles/volume) 4.9 mmol/L 3.6-5.0 Serum or plasma chloride measurement (moles/volume) 94 mmol/L 98-107 Carbon dioxide 34 mmol/L 21-32 Serum or plasma anion gap determination (moles/volume) 13 mmol/L 5-14 Serum or plasma urea nitrogen measurement (mass/volume ) 42 mg/dL 7-18 Serum or plasma creatinine measurement (mass/volume) 1.08 mg/dL 0.60-1.30 Serum or plasma urea nitrogen/creatinine mass ratio 39 NRG Serum or plasma creatinine measurement w ith calculation of estimated glomerular filtration rate > NRG Serum or plasma glucose measurement (mass/volume) 167 mg/dL 70-105 Serum or plasma calcium measurement (mass/volume) 9.7 mg/dL 8.5-10.1 Complete blood count (CBC) with automate d white blood cell (WBC) differential - 06/09/16 20:15 Blood leukocytes automated count (number/volume) 13.3 10*3/uL 4.3-11.0 Blood erythrocytes automated count (number/volume) 3.86 10*6/uL 4.35-5.85 Venous blood hemoglobin measurement (mass/volume) 10.9 g/dL 13.3-17.7 Blood hematocrit (volume fraction) 36 % 40-54 Automated erythrocyte mean corpuscular volume 93 [ foz_us] 80-99 Automated erythrocyte mean corpuscular h emoglobin (mass per erythrocyte) 28 pg 25-34 Automated erythrocyte mean corpuscular h emoglobin concentration measurement (mass/volume) 30 g/dL 32-36 Automated erythrocyte distribution width ratio 19. 3 % 10.0- 14.5 Automated blood platelet count (count/volume) 179 10*3/uL 130-400 Automated blood platelet mean volume measurement 9.3 [foz_us] 7.4-10.4 Automated blood neutrophils/100 leukocytes 81 % 42-75 Automated blood lymphocytes/100 leukocytes 12 % 12-44 Blood monocytes/100 leukocytes 7 % 0-12 Automated blood eosinophils/100 leukocytes 1 % 0-10 Automated blood basophils/100 leukocytes 0 % 0-10 Blood neutrophils automated count (number/volume) 10.7 10*3 1.8-7.8 Blood lymphocytes automated count (number/volume) 1.5 10*3 1.0-4.0 Blood monocytes automated count (number/volume) 0. 9 10*3 0.0-1.0 Automated eosinophil count 0.1 10*3/uL 0 .0-0.3 Automated blood basophil count (count/volume) 0.0 10*3/uL 0.0-0.1 Blood lactic acid measurement (moles/vol ume) - 06/09/16 20:15 Blood lactic acid measurement (moles/volume) 1.3 m mol/L 0.5- 2.0 Comprehensive metabolic panel - 06/09/16 20:15 Serum or plasma sodium measurement (moles/volume) 140 mmol/L 135-145 Serum or plasma potassium measurement (moles/volume) 5.3 mmol/L 3.6-5.0 Serum or plasma chloride measurement (moles/volume) 95 mmol/L 98-107 Carbon dioxide 31 mmol/L 21-32 Serum or plasma anion gap determination (moles/volume) 14 mmol/L 5-14 Serum or plasma urea nitrogen measurement (mass/volume ) 23 mg/dL 7-18 Serum or plasma creatinine measurement (mass/volume) 1.32 mg/dL 0.60-1.30 Serum or plasma urea nitrogen/creatinine mass ratio 17 NRG Serum or plasma creatinine measurement w ith calculation of estimated glomerular filtration rate 55 NRG Serum or plasma glucose measurement (mass/volume) 222 mg/dL 70-105 Serum or plasma calcium measurement (mass/volume) 9.4 mg/dL 8.5-10.1 Serum or plasma total bilirubin measurement (mass/volu me) 0.3 mg/dL 0.1-1.0 Serum or plasma alkaline phosphatase lourdes surement (enzymatic activity/volume) 125 U/L 40-136 Serum or plasma aspartate aminotransfera se measurement (enzymatic activity/volume) 30 U/L 5-34 Serum or plasma alanine aminotransferase measurement (enzymatic activity/volume) 34 U/L 0-55 Serum or plasma protein measurement (mass/volume) 7.6 g/dL 6.4-8.2 Serum or plasma albumin measurement (mass/volume) 4.0 g/dL 3.2-4.5 Magnesium - 06/09/16 20:15 Magnesium 2.1 mg/dL 1.8-2.4 Serum or plasma creatine kinase measurem ent (enzymatic activity/volume) - 06/09/16 20:15 Serum or plasma creatine kinase measurem ent (enzymatic activity/volume) 41 U/L 30-200 PT panel in platelet poor plasma by coag ulation assay - 06/09/16 20:15 Prothrombin time (PT) in platelet poor plasma by coagu lation assay 12.1 s 12.2-14.7 INR in platelet poor plasma or blood by coagulation as say 0.9 0.8-1.4 Activated partial thromboplastin time (a PTT) in platelet poor plasma bycoagulation assay - 06/09/16 20:15 Activated partial thromboplastin time (a PTT) in platelet poor plasma bycoagulation assay 27 s 24-35 Serum or plasma creatine kinase MB measu rement (enzymatic activity/volume) - 06/09/16 20:15 Serum or plasma creatine kinase MB measu rement (enzymatic activity/volume) 1.0 ng/mL <6.6 Serum or plasma troponin i.cardiac measu rement (mass/volume) - 06/09/16 20:15 Serum or plasma troponin i.cardiac measurement (mass/v olume) < ng/mL <0.30 Serum or plasma lithium measurement (mol es/volume) - 06/09/16 20:15 BNP level 163.8 pg/mL <100.0 Arterial blood gas measurement - 6 20:24 Blood pCO2 104 mm[Hg] 35-45 Blood pO2 210 mm[Hg] 79-93 Arterial blood bicarbonate measurement (moles/volume) 43 mmol/L 23-27 Arterial blood base excess by calculation 11.9 mmo l/L -2.5-2.5 Arterial blood oxygen saturation measurement 99 % 94-100 * Inhaled oxygen flow rate 100% NRG Arterial blood pH measurement with patient temperature correction 7.23 7.37-7.43 Arterial blood carbon dioxide, total measurement (mole s/volume) 46.3 mmol/L 21.0-31.0 Body site LEFT RADIAL NRG Assessment of wrist artery patency prior to arterial p uncture POSITIVE NRG Setting of ventilation mode NO NR G Measurement of body temperature 96.8 NRG Arterial blood gas measurement - 6 21:57 Blood pCO2 105 mm[Hg] 35-45 Blood pO2 84 mm[Hg] 79-93 Arterial blood bicarbonate measurement (moles/volume) 45 mmol/L 23-27 Arterial blood base excess by calculation 13.2 mmo l/L -2.5-2.5 Arterial blood oxygen saturation measurement 96 % 94-100 * Inhaled oxygen flow rate 70% NRG Arterial blood pH measurement with patient temperature correction 7.24 7.37-7.43 Arterial blood carbon dioxide, total measurement (mole s/volume) 47.8 mmol/L 21.0-31.0 Body site LEFT RADIAL NRG Assessment of wrist artery patency prior to arterial p uncture POSITIVE NRG Setting of ventilation mode NO NR G Measurement of body temperature 97.2 NRG Complete blood count (CBC) with automate d white blood cell (WBC) differential - 06/10/16 02:27 Blood leukocytes automated count (number/volume) 14.9 10*3/uL 4.3-11.0 Blood erythrocytes automated count (number/volume) 4.12 10*6/uL 4.35-5.85 Venous blood hemoglobin measurement (mass/volume) 11.6 g/dL 13.3-17.7 Blood hematocrit (volume fraction) 38 % 40-54 Automated erythrocyte mean corpuscular volume 93 [ foz_us] 80-99 Automated erythrocyte mean corpuscular h emoglobin (mass per erythrocyte) 28 pg 25-34 Automated erythrocyte mean corpuscular h emoglobin concentration measurement (mass/volume) 30 g/dL 32-36 Automated erythrocyte distribution width ratio 19. 2 % 10.0- 14.5 Automated blood platelet count (count/volume) 168 10*3/uL 130-400 Automated blood platelet mean volume measurement 9.1 [foz_us] 7.4-10.4 Automated blood neutrophils/100 leukocytes 91 % 42-75 Automated blood lymphocytes/100 leukocytes 7 % 12-44 Blood monocytes/100 leukocytes 2 % 0-12 Automated blood eosinophils/100 leukocytes 0 % 0-10 Automated blood basophils/100 leukocytes 0 % 0-10 Blood neutrophils automated count (number/volume) 13.6 10*3 1.8-7.8 Blood lymphocytes automated count (number/volume) 1.0 10*3 1.0-4.0 Blood monocytes automated count (number/volume) 0. 2 10*3 0.0-1.0 Automated eosinophil count 0.0 10*3/uL 0 .0-0.3 Automated blood basophil count (count/volume) 0.0 10*3/uL 0.0-0.1 Serum or plasma troponin i.cardiac measu rement (mass/volume) - 06/10/16 02:27 Serum or plasma troponin i.cardiac measurement (mass/v olume) < ng/mL <0.30 Comprehensive metabolic panel - 06/10/16 02:27 Serum or plasma sodium measurement (moles/volume) 140 mmol/L 135-145 Serum or plasma potassium measurement (moles/volume) 5.4 mmol/L 3.6-5.0 Serum or plasma chloride measurement (moles/volume) 92 mmol/L 98-107 Carbon dioxide 32 mmol/L 21-32 Serum or plasma anion gap determination (moles/volume) 16 mmol/L 5-14 Serum or plasma urea nitrogen measurement (mass/volume ) 22 mg/dL 7-18 Serum or plasma creatinine measurement (mass/volume) 1.21 mg/dL 0.60-1.30 Serum or plasma urea nitrogen/creatinine mass ratio 18 NRG Serum or plasma creatinine measurement w ith calculation of estimated glomerular filtration rate > NRG Serum or plasma glucose measurement (mass/volume) 268 mg/dL 70-105 Serum or plasma calcium measurement (mass/volume) 9.3 mg/dL 8.5-10.1 Serum or plasma total bilirubin measurement (mass/volu me) 0.4 mg/dL 0.1-1.0 Serum or plasma alkaline phosphatase lourdes surement (enzymatic activity/volume) 143 U/L 40-136 Serum or plasma aspartate aminotransfera se measurement (enzymatic activity/volume) 29 U/L 5-34 Serum or plasma alanine aminotransferase measurement (enzymatic activity/volume) 37 U/L 0-55 Serum or plasma protein measurement (mass/volume) 7.6 g/dL 6.4-8.2 Serum or plasma albumin measurement (mass/volume) 4.4 g/dL 3.2-4.5 Methicillin resistant Staphylococcus aur eus (MRSA) screening culture - 06/10/16 04:35 Methicillin resistant Staphylococcus aureus (MRSA) scr eening culture NEG NRG Arterial blood gas measurement - 6 04:50 Blood pCO2 88 mm[Hg] 35-45 Blood pO2 175 mm[Hg] 79-93 Arterial blood bicarbonate measurement (moles/volume) 45 mmol/L 23-27 Arterial blood base excess by calculation 14.9 mmo l/L -2.5-2.5 Arterial blood oxygen saturation measurement 99 % 94-100 * Inhaled oxygen flow rate 60% NRG Arterial blood pH measurement with patient temperature correction 7.32 7.37-7.43 Arterial blood carbon dioxide, total measurement (mole s/volume) 47.4 mmol/L 21.0-31.0 Body site RT RADAIL NRG Assessment of wrist artery patency prior to arterial p uncture YES-POS NRG Setting of ventilation mode YES NR G Measurement of body temperature 97.8 NRG Capillary blood glucose measurement by g lucometer (mass/volume) - 06/10/16 06:48 Capillary blood glucose measurement by glucometer (mas s/volume) 324 mg/dL 70-110 Capillary blood glucose measurement by g lucometer (mass/volume) - 06/10/16 12:08 Capillary blood glucose measurement by glucometer (mas s/volume) 311 mg/dL 70-110 Arterial blood gas measurement - 6 12:40 Blood pCO2 85 mm[Hg] 35-45 Blood pO2 76 mm[Hg] 79-93 Arterial blood bicarbonate measurement (moles/volume) 45 mmol/L 23-27 Arterial blood base excess by calculation 15.1 mmo l/L -2.5-2.5 Arterial blood oxygen saturation measurement 96 % 94-100 * Inhaled oxygen flow rate 45% NRG Arterial blood pH measurement with patient temperature correction 7.34 7.37-7.43 Arterial blood carbon dioxide, total measurement (mole s/volume) 47.2 mmol/L 21.0-31.0 Body site RIGHT RADIAL NRG Assessment of wrist artery patency prior to arterial p uncture YES-POS NRG Setting of ventilation mode NO NR G Measurement of body temperature 98.0 NRG Capillary blood glucose measurement by g lucometer (mass/volume) - 06/10/16 17:43 Capillary blood glucose measurement by glucometer (mas s/volume) 291 mg/dL 70-110 Capillary blood glucose measurement by g lucometer (mass/volume) - 06/10/16 21:59 Capillary blood glucose measurement by glucometer (mas s/volume) 274 mg/dL 70-110 Complete blood count (CBC) with automate d white blood cell (WBC) differential - 06/11/16 04:12 Blood leukocytes automated count (number/volume) 17.0 10*3/uL 4.3-11.0 Blood erythrocytes automated count (number/volume) 4.09 10*6/uL 4.35-5.85 Venous blood hemoglobin measurement (mass/volume) 11.4 g/dL 13.3-17.7 Blood hematocrit (volume fraction) 38 % 40-54 Automated erythrocyte mean corpuscular volume 94 [ foz_us] 80-99 Automated erythrocyte mean corpuscular h emoglobin (mass per erythrocyte) 28 pg 25-34 Automated erythrocyte mean corpuscular h emoglobin concentration measurement (mass/volume) 30 g/dL 32-36 Automated erythrocyte distribution width ratio 19. 5 % 10.0- 14.5 Automated blood platelet count (count/volume) 210 10*3/uL 130-400 Automated blood platelet mean volume measurement 9.6 [foz_us] 7.4-10.4 Automated blood neutrophils/100 leukocytes 86 % 42-75 Automated blood lymphocytes/100 leukocytes 6 % 12-44 Blood monocytes/100 leukocytes 8 % 0-12 Automated blood eosinophils/100 leukocytes 0 % 0-10 Automated blood basophils/100 leukocytes 0 % 0-10 Blood neutrophils automated count (number/volume) 14.7 10*3 1.8-7.8 Blood lymphocytes automated count (number/volume) 1.0 10*3 1.0-4.0 Blood monocytes automated count (number/volume) 1. 4 10*3 0.0-1.0 Automated eosinophil count 0.0 10*3/uL 0 .0-0.3 Automated blood basophil count (count/volume) 0.0 10*3/uL 0.0-0.1 Whole blood basic metabolic panel - 04/19 04:12 Serum or plasma sodium measurement (moles/volume) 140 mmol/L 135-145 Serum or plasma potassium measurement (moles/volume) 4.6 mmol/L 3.6-5.0 Serum or plasma chloride measurement (moles/volume) 89 mmol/L 98-107 Carbon dioxide 38 mmol/L 21-32 Serum or plasma anion gap determination (moles/volume) 13 mmol/L 5-14 Serum or plasma urea nitrogen measurement (mass/volume ) 34 mg/dL 7-18 Serum or plasma creatinine measurement (mass/volume) 1.18 mg/dL 0.60-1.30 Serum or plasma urea nitrogen/creatinine mass ratio 29 NRG Serum or plasma creatinine measurement w ith calculation of estimated glomerular filtration rate > NRG Serum or plasma glucose measurement (mass/volume) 202 mg/dL 70-105 Serum or plasma calcium measurement (mass/volume) 9.8 mg/dL 8.5-10.1 Capillary blood glucose measurement by g lucometer (mass/volume) - 06/11/16 04:25 Capillary blood glucose measurement by glucometer (mas s/volume) 184 mg/dL 70-110 Capillary blood glucose measurement by g lucometer (mass/volume) - 06/11/16 13:05 Capillary blood glucose measurement by glucometer (mas s/volume) 151 mg/dL 70-110 Capillary blood glucose measurement by g lucometer (mass/volume) - 06/11/16 17:27 Capillary blood glucose measurement by glucometer (mas s/volume) 167 mg/dL 70-110 Capillary blood glucose measurement by g lucometer (mass/volume) - 06/11/16 20:35 Capillary blood glucose measurement by glucometer (mas s/volume) 171 mg/dL 70-110 Complete blood count (CBC) with automate d white blood cell (WBC) differential - 06/12/16 04:41 Blood leukocytes automated count (number/volume) 11.3 10*3/uL 4.3-11.0 Blood erythrocytes automated count (number/volume) 4.00 10*6/uL 4.35-5.85 Venous blood hemoglobin measurement (mass/volume) 11.2 g/dL 13.3-17.7 Blood hematocrit (volume fraction) 38 % 40-54 Automated erythrocyte mean corpuscular volume 95 [ foz_us] 80-99 Automated erythrocyte mean corpuscular h emoglobin (mass per erythrocyte) 28 pg 25-34 Automated erythrocyte mean corpuscular h emoglobin concentration measurement (mass/volume) 29 g/dL 32-36 Automated erythrocyte distribution width ratio 19. 6 % 10.0- 14.5 Automated blood platelet count (count/volume) 174 10*3/uL 130-400 Automated blood platelet mean volume measurement 9.2 [foz_us] 7.4-10.4 Automated blood neutrophils/100 leukocytes 71 % 42-75 Automated blood lymphocytes/100 leukocytes 18 % 12-44 Blood monocytes/100 leukocytes 11 % 0-12 Automated blood eosinophils/100 leukocytes 0 % 0-10 Automated blood basophils/100 leukocytes 0 % 0-10 Blood neutrophils automated count (number/volume) 8.0 10*3 1.8-7.8 Blood lymphocytes automated count (number/volume) 2.0 10*3 1.0-4.0 Blood monocytes automated count (number/volume) 1. 2 10*3 0.0-1.0 Automated eosinophil count 0.0 10*3/uL 0 .0-0.3 Automated blood basophil count (count/volume) 0.0 10*3/uL 0.0-0.1 Whole blood basic metabolic panel - 05/20 04:41 Serum or plasma sodium measurement (moles/volume) 143 mmol/L 135-145 Serum or plasma potassium measurement (moles/volume) 4.0 mmol/L 3.6-5.0 Serum or plasma chloride measurement (moles/volume) 91 mmol/L 98-107 Carbon dioxide 40 mmol/L 21-32 Serum or plasma anion gap determination (moles/volume) 12 mmol/L 5-14 Serum or plasma urea nitrogen measurement (mass/volume ) 41 mg/dL 7-18 Serum or plasma creatinine measurement (mass/volume) 1.20 mg/dL 0.60-1.30 Serum or plasma urea nitrogen/creatinine mass ratio 34 NRG Serum or plasma creatinine measurement w ith calculation of estimated glomerular filtration rate > NRG Serum or plasma glucose measurement (mass/volume) 138 mg/dL 70-105 Serum or plasma calcium measurement (mass/volume) 9.5 mg/dL 8.5-10.1 Capillary blood glucose measurement by g lucometer (mass/volume) - 06/12/16 11:36 Capillary blood glucose measurement by glucometer (mas s/volume) 141 mg/dL 70-110 Capillary blood glucose measurement by g lucometer (mass/volume) - 06/12/16 15:57 Capillary blood glucose measurement by glucometer (mas s/volume) 138 mg/dL 70-110 Capillary blood glucose measurement by g lucometer (mass/volume) - 06/12/16 21:24 Capillary blood glucose measurement by glucometer (mas s/volume) 140 mg/dL 70-110 Complete blood count (CBC) with automate d white blood cell (WBC) differential - 06/13/16 05:18 Blood leukocytes automated count (number/volume) 10.2 10*3/uL 4.3-11.0 Blood erythrocytes automated count (number/volume) 4.04 10*6/uL 4.35-5.85 Venous blood hemoglobin measurement (mass/volume) 11.5 g/dL 13.3-17.7 Blood hematocrit (volume fraction) 38 % 40-54 Automated erythrocyte mean corpuscular volume 95 [ foz_us] 80-99 Automated erythrocyte mean corpuscular h emoglobin (mass per erythrocyte) 29 pg 25-34 Automated erythrocyte mean corpuscular h emoglobin concentration measurement (mass/volume) 30 g/dL 32-36 Automated erythrocyte distribution width ratio 19. 2 % 10.0- 14.5 Automated blood platelet count (count/volume) 173 10*3/uL 130-400 Automated blood platelet mean volume measurement 9.2 [foz_us] 7.4-10.4 Automated blood neutrophils/100 leukocytes 74 % 42-75 Automated blood lymphocytes/100 leukocytes 13 % 12-44 Blood monocytes/100 leukocytes 12 % 0-12 Automated blood eosinophils/100 leukocytes 1 % 0-10 Automated blood basophils/100 leukocytes 0 % 0-10 Blood neutrophils automated count (number/volume) 7.6 10*3 1.8-7.8 Blood lymphocytes automated count (number/volume) 1.4 10*3 1.0-4.0 Blood monocytes automated count (number/volume) 1. 2 10*3 0.0-1.0 Automated eosinophil count 0.1 10*3/uL 0 .0-0.3 Automated blood basophil count (count/volume) 0.0 10*3/uL 0.0-0.1 Whole blood basic metabolic panel - 06/04 05:18 Serum or plasma sodium measurement (moles/volume) 141 mmol/L 135-145 Serum or plasma potassium measurement (moles/volume) 4.2 mmol/L 3.6-5.0 Serum or plasma chloride measurement (moles/volume) 89 mmol/L 98-107 Carbon dioxide 40 mmol/L 21-32 Serum or plasma anion gap determination (moles/volume) 12 mmol/L 5-14 Serum or plasma urea nitrogen measurement (mass/volume ) 34 mg/dL 7-18 Serum or plasma creatinine measurement (mass/volume) 1.08 mg/dL 0.60-1.30 Serum or plasma urea nitrogen/creatinine mass ratio 31 NRG Serum or plasma creatinine measurement w ith calculation of estimated glomerular filtration rate > NRG Serum or plasma glucose measurement (mass/volume) 128 mg/dL 70-105 Serum or plasma calcium measurement (mass/volume) 9.8 mg/dL 8.5-10.1 Sputum Gram stain - 06/13/16 07:50 Bacterial sputum culture - 06/13/16 07:5 0 FREE TEXT EXTERNAL BETA LACTAMASE POSITIVE NRG QUANTITY OF GROWTH Abund[employer] Growth NRG FREE TEXT ENTRY 2 PLUS NORMAL ELISSA NRG Bacterial sputum culture [id number] NRG Arterial blood gas measurement - 6 07:57 Blood pCO2 90 mm[Hg] 35-45 Blood pO2 92 mm[Hg] 79-93 Arterial blood bicarbonate measurement (moles/volume) 49 mmol/L 23-27 Arterial blood base excess by calculation 19.2 mmo l/L -2.5-2.5 Arterial blood oxygen saturation measurement 97 % 94-100 * Inhaled oxygen flow rate 50% NRG Arterial blood pH measurement with patient temperature correction 7.35 7.37-7.43 Arterial blood carbon dioxide, total measurement (mole s/volume) 52.0 mmol/L 21.0-31.0 Body site RT RADIAL NRG Assessment of wrist artery patency prior to arterial p uncture YES-POS NRG Setting of ventilation mode NO NR G Measurement of body temperature 97.6 NRG Capillary blood glucose measurement by g lucometer (mass/volume) - 06/13/16 11:35 Capillary blood glucose measurement by glucometer (mas s/volume) 161 mg/dL 70-110 Capillary blood glucose measurement by g lucometer (mass/volume) - 06/13/16 16:47 Capillary blood glucose measurement by glucometer (mas s/volume) 222 mg/dL 70-110 Capillary blood glucose measurement by g lucometer (mass/volume) - 06/13/16 20:27 Capillary blood glucose measurement by glucometer (mas s/volume) 390 mg/dL 70-110 Complete blood count (CBC) with automate d white blood cell (WBC) differential - 06/14/16 06:26 Blood leukocytes automated count (number/volume) 11.4 10*3/uL 4.3-11.0 Blood erythrocytes automated count (number/volume) 4.12 10*6/uL 4.35-5.85 Venous blood hemoglobin measurement (mass/volume) 11.5 g/dL 13.3-17.7 Blood hematocrit (volume fraction) 38 % 40-54 Automated erythrocyte mean corpuscular volume 92 [ foz_us] 80-99 Automated erythrocyte mean corpuscular h emoglobin (mass per erythrocyte) 28 pg 25-34 Automated erythrocyte mean corpuscular h emoglobin concentration measurement (mass/volume) 30 g/dL 32-36 Automated erythrocyte distribution width ratio 17. 8 % 10.0- 14.5 Automated blood platelet count (count/volume) 171 10*3/uL 130-400 Automated blood platelet mean volume measurement 9.4 [foz_us] 7.4-10.4 Automated blood neutrophils/100 leukocytes 91 % 42-75 Automated blood lymphocytes/100 leukocytes 6 % 12-44 Blood monocytes/100 leukocytes 3 % 0-12 Automated blood eosinophils/100 leukocytes 0 % 0-10 Automated blood basophils/100 leukocytes 0 % 0-10 Blood neutrophils automated count (number/volume) 10.4 10*3 1.8-7.8 Blood lymphocytes automated count (number/volume) 0.7 10*3 1.0-4.0 Blood monocytes automated count (number/volume) 0. 3 10*3 0.0-1.0 Automated eosinophil count 0.0 10*3/uL 0 .0-0.3 Automated blood basophil count (count/volume) 0.0 10*3/uL 0.0-0.1 Comprehensive metabolic panel - 06/14/16 06:26 Serum or plasma sodium measurement (moles/volume) 141 mmol/L 135-145 Serum or plasma potassium measurement (moles/volume) 4.9 mmol/L 3.6-5.0 Serum or plasma chloride measurement (moles/volume) 90 mmol/L 98-107 Carbon dioxide 36 mmol/L 21-32 Serum or plasma anion gap determination (moles/volume) 15 mmol/L 5-14 Serum or plasma urea nitrogen measurement (mass/volume ) 37 mg/dL 7-18 Serum or plasma creatinine measurement (mass/volume) 1.20 mg/dL 0.60-1.30 Serum or plasma urea nitrogen/creatinine mass ratio 31 NRG Serum or plasma creatinine measurement w ith calculation of estimated glomerular filtration rate > NRG Serum or plasma glucose measurement (mass/volume) 249 mg/dL 70-105 Serum or plasma calcium measurement (mass/volume) 9.9 mg/dL 8.5-10.1 Serum or plasma total bilirubin measurement (mass/volu me) 0.4 mg/dL 0.1-1.0 Serum or plasma alkaline phosphatase lourdes surement (enzymatic activity/volume) 117 U/L 40-136 Serum or plasma aspartate aminotransfera se measurement (enzymatic activity/volume) 21 U/L 5-34 Serum or plasma alanine aminotransferase measurement (enzymatic activity/volume) 22 U/L 0-55 Serum or plasma protein measurement (mass/volume) 7.3 g/dL 6.4-8.2 Serum or plasma albumin measurement (mass/volume) 3.8 g/dL 3.2-4.5 Capillary blood glucose measurement by g lucometer (mass/volume) - 06/14/16 11:31 Capillary blood glucose measurement by glucometer (mas s/volume) 292 mg/dL 70-110 Capillary blood glucose measurement by g lucometer (mass/volume) - 06/14/16 16:14 Capillary blood glucose measurement by glucometer (mas s/volume) 404 mg/dL 70-110 Capillary blood glucose measurement by g lucometer (mass/volume) - 06/14/16 20:28 Capillary blood glucose measurement by glucometer (mas s/volume) 420 mg/dL 70-110 Capillary blood glucose measurement by g lucometer (mass/volume) - 06/15/16 04:55 Capillary blood glucose measurement by glucometer (mas s/volume) 296 mg/dL 70-110 Complete blood count (CBC) with automate d white blood cell (WBC) differential - 06/15/16 06:58 Blood leukocytes automated count (number/volume) 12.8 10*3/uL 4.3-11.0 Blood erythrocytes automated count (number/volume) 4.14 10*6/uL 4.35-5.85 Venous blood hemoglobin measurement (mass/volume) 11.7 g/dL 13.3-17.7 Blood hematocrit (volume fraction) 38 % 40-54 Automated erythrocyte mean corpuscular volume 92 [ foz_us] 80-99 Automated erythrocyte mean corpuscular h emoglobin (mass per erythrocyte) 28 pg 25-34 Automated erythrocyte mean corpuscular h emoglobin concentration measurement (mass/volume) 31 g/dL 32-36 Automated erythrocyte distribution width ratio 18. 3 % 10.0- 14.5 Automated blood platelet count (count/volume) 184 10*3/uL 130-400 Automated blood platelet mean volume measurement 9.7 [foz_us] 7.4-10.4 Automated blood neutrophils/100 leukocytes 85 % 42-75 Automated blood lymphocytes/100 leukocytes 8 % 12-44 Blood monocytes/100 leukocytes 7 % 0-12 Automated blood eosinophils/100 leukocytes 0 % 0-10 Automated blood basophils/100 leukocytes 0 % 0-10 Blood neutrophils automated count (number/volume) 10.9 10*3 1.8-7.8 Blood lymphocytes automated count (number/volume) 1.0 10*3 1.0-4.0 Blood monocytes automated count (number/volume) 0. 9 10*3 0.0-1.0 Automated eosinophil count 0.0 10*3/uL 0 .0-0.3 Automated blood basophil count (count/volume) 0.0 10*3/uL 0.0-0.1 Comprehensive metabolic panel - 06/15/16 06:58 Serum or plasma sodium measurement (moles/volume) 138 mmol/L 135-145 Serum or plasma potassium measurement (moles/volume) 5.0 mmol/L 3.6-5.0 Serum or plasma chloride measurement (moles/volume) 89 mmol/L 98-107 Carbon dioxide 39 mmol/L 21-32 Serum or plasma anion gap determination (moles/volume) 10 mmol/L 5-14 Serum or plasma urea nitrogen measurement (mass/volume ) 44 mg/dL 7-18 Serum or plasma creatinine measurement (mass/volume) 1.31 mg/dL 0.60-1.30 Serum or plasma urea nitrogen/creatinine mass ratio 34 NRG Serum or plasma creatinine measurement w ith calculation of estimated glomerular filtration rate 56 NRG Serum or plasma glucose measurement (mass/volume) 307 mg/dL 70-105 Serum or plasma calcium measurement (mass/volume) 9.9 mg/dL 8.5-10.1 Serum or plasma total bilirubin measurement (mass/volu me) 0.3 mg/dL 0.1-1.0 Serum or plasma alkaline phosphatase lourdes surement (enzymatic activity/volume) 106 U/L 40-136 Serum or plasma aspartate aminotransfera se measurement (enzymatic activity/volume) 15 U/L 5-34 Serum or plasma alanine aminotransferase measurement (enzymatic activity/volume) 21 U/L 0-55 Serum or plasma protein measurement (mass/volume) 7.3 g/dL 6.4-8.2 Serum or plasma albumin measurement (mass/volume) 3.7 g/dL 3.2-4.5 Capillary blood glucose measurement by g lucometer (mass/volume) - 06/15/16 10:53 Capillary blood glucose measurement by glucometer (mas s/volume) 253 mg/dL 70-110 Arterial blood gas measurement - 6 13:20 Blood pCO2 87 mm[Hg] 35-45 Blood pO2 96 mm[Hg] 79-93 Arterial blood bicarbonate measurement (moles/volume) 49 mmol/L 23-27 Arterial blood base excess by calculation 18.8 mmo l/L -2.5-2.5 Arterial blood oxygen saturation measurement 97 % 94-100 * Inhaled oxygen flow rate 10 LPM NRG Arterial blood pH measurement with patient temperature correction 7.36 7.37-7.43 Arterial blood carbon dioxide, total measurement (mole s/volume) 51.6 mmol/L 21.0-31.0 Body site LR NRG Assessment of wrist artery patency prior to arterial p uncture YES-POS NRG Setting of ventilation mode NO NR G Measurement of body temperature 96.5 NRG Capillary blood glucose measurement by g lucometer (mass/volume) - 06/15/16 16:15 Capillary blood glucose measurement by glucometer (mas s/volume) 241 mg/dL 70-110 Capillary blood glucose measurement by g lucometer (mass/volume) - 06/15/16 20:47 Capillary blood glucose measurement by glucometer (mas s/volume) 345 mg/dL 70-110 Capillary blood glucose measurement by g lucometer (mass/volume) - 06/16/16 05:05 Capillary blood glucose measurement by glucometer (mas s/volume) 290 mg/dL 70-110 Complete blood count (CBC) with automate d white blood cell (WBC) differential - 06/16/16 06:50 Blood leukocytes automated count (number/volume) 12.3 10*3/uL 4.3-11.0 Blood erythrocytes automated count (number/volume) 4.27 10*6/uL 4.35-5.85 Venous blood hemoglobin measurement (mass/volume) 12.0 g/dL 13.3-17.7 Blood hematocrit (volume fraction) 39 % 40-54 Automated erythrocyte mean corpuscular volume 91 [ foz_us] 80-99 Automated erythrocyte mean corpuscular h emoglobin (mass per erythrocyte) 28 pg 25-34 Automated erythrocyte mean corpuscular h emoglobin concentration measurement (mass/volume) 31 g/dL 32-36 Automated erythrocyte distribution width ratio 18. 4 % 10.0- 14.5 Automated blood platelet count (count/volume) 173 10*3/uL 130-400 Automated blood platelet mean volume measurement 9.3 [foz_us] 7.4-10.4 Automated blood neutrophils/100 leukocytes 88 % 42-75 Automated blood lymphocytes/100 leukocytes 8 % 12-44 Blood monocytes/100 leukocytes 4 % 0-12 Automated blood eosinophils/100 leukocytes 0 % 0-10 Automated blood basophils/100 leukocytes 0 % 0-10 Blood neutrophils automated count (number/volume) 10.8 10*3 1.8-7.8 Blood lymphocytes automated count (number/volume) 1.0 10*3 1.0-4.0 Blood monocytes automated count (number/volume) 0. 5 10*3 0.0-1.0 Automated eosinophil count 0.0 10*3/uL 0 .0-0.3 Automated blood basophil count (count/volume) 0.0 10*3/uL 0.0-0.1 Whole blood basic metabolic panel - 06/04 11/17 06:50 Serum or plasma sodium measurement (moles/volume) 139 mmol/L 135-145 Serum or plasma potassium measurement (moles/volume) 5.0 mmol/L 3.6-5.0 Serum or plasma chloride measurement (moles/volume) 89 mmol/L 98-107 Carbon dioxide 40 mmol/L 21-32 Serum or plasma anion gap determination (moles/volume) 10 mmol/L 5-14 Serum or plasma urea nitrogen measurement (mass/volume ) 43 mg/dL 7-18 Serum or plasma creatinine measurement (mass/volume) 1.33 mg/dL 0.60-1.30 Serum or plasma urea nitrogen/creatinine mass ratio 32 NRG Serum or plasma creatinine measurement w ith calculation of estimated glomerular filtration rate 55 NRG Serum or plasma glucose measurement (mass/volume) 318 mg/dL 70-105 Serum or plasma calcium measurement (mass/volume) 9.7 mg/dL 8.5-10.1 Capillary blood glucose measurement by g lucometer (mass/volume) - 06/16/16 10:31 Capillary blood glucose measurement by glucometer (mas s/volume) 408 mg/dL 70-110 Capillary blood glucose measurement by g lucometer (mass/volume) - 06/16/16 15:47 Capillary blood glucose measurement by glucometer (mas s/volume) 321 mg/dL 70-110 Capillary blood glucose measurement by g lucometer (mass/volume) - 06/16/16 20:23 Capillary blood glucose measurement by glucometer (mas s/volume) 277 mg/dL 70-110 Capillary blood glucose measurement by g lucometer (mass/volume) - 06/17/16 06:22 Capillary blood glucose measurement by glucometer (mas s/volume) 154 mg/dL 70-110 Automated blood complete blood count (he mogram) panel - 06/17/16 06:25 Blood leukocytes automated count (number/volume) 10.4 10*3/uL 4.3-11.0 Blood erythrocytes automated count (number/volume) 4.10 10*6/uL 4.35-5.85 Venous blood hemoglobin measurement (mass/volume) 11.6 g/dL 13.3-17.7 Blood hematocrit (volume fraction) 37 % 40-54 Automated erythrocyte mean corpuscular volume 90 [ foz_us] 80-99 Automated erythrocyte mean corpuscular h emoglobin (mass per erythrocyte) 28 pg 25-34 Automated erythrocyte mean corpuscular h emoglobin concentration measurement (mass/volume) 31 g/dL 32-36 Automated erythrocyte distribution width ratio 18. 3 % 10.0- 14.5 Automated blood platelet count (count/volume) 162 10*3/uL 130-400 Automated blood platelet mean volume measurement 9.5 [foz_us] 7.4-10.4 Comprehensive metabolic panel - 06/17/16 06:25 Serum or plasma sodium measurement (moles/volume) 140 mmol/L 135-145 Serum or plasma potassium measurement (moles/volume) 4.3 mmol/L 3.6-5.0 Serum or plasma chloride measurement (moles/volume) 90 mmol/L 98-107 Carbon dioxide 42 mmol/L 21-32 Serum or plasma anion gap determination (moles/volume) 8 mmol/L 5-14 Serum or plasma urea nitrogen measurement (mass/volume ) 37 mg/dL 7-18 Serum or plasma creatinine measurement (mass/volume) 1.06 mg/dL 0.60-1.30 Serum or plasma urea nitrogen/creatinine mass ratio 35 NRG Serum or plasma creatinine measurement w ith calculation of estimated glomerular filtration rate > NRG Serum or plasma glucose measurement (mass/volume) 166 mg/dL 70-105 Serum or plasma calcium measurement (mass/volume) 9.9 mg/dL 8.5-10.1 Serum or plasma total bilirubin measurement (mass/volu me) 0.4 mg/dL 0.1-1.0 Serum or plasma alkaline phosphatase lourdes surement (enzymatic activity/volume) 79 U/L 40-136 Serum or plasma aspartate aminotransfera se measurement (enzymatic activity/volume) 15 U/L 5-34 Serum or plasma alanine aminotransferase measurement (enzymatic activity/volume) 16 U/L 0-55 Serum or plasma protein measurement (mass/volume) 6.4 g/dL 6.4-8.2 Serum or plasma albumin measurement (mass/volume) 3.4 g/dL 3.2-4.5 Capillary blood glucose measurement by g lucometer (mass/volume) - 06/17/16 11:19 Capillary blood glucose measurement by glucometer (mas s/volume) 205 mg/dL 70-110 Complete blood count (CBC) with automate d white blood cell (WBC) differential - 10/27/17 18:20 Blood leukocytes automated count (number/volume) 10.6 10*3/uL 4.3-11.0 Blood erythrocytes automated count (number/volume) 3.69 10*6/uL 4.35-5.85 Venous blood hemoglobin measurement (mass/volume) 10.9 g/dL 13.3-17.7 Blood hematocrit (volume fraction) 35 % 40-54 Automated erythrocyte mean corpuscular volume 96 [ foz_us] 80-99 Automated erythrocyte mean corpuscular h emoglobin (mass per erythrocyte) 30 pg 25-34 Automated erythrocyte mean corpuscular h emoglobin concentration measurement (mass/volume) 31 g/dL 32-36 Automated erythrocyte distribution width ratio 16. 0 % 10.0- 14.5 Automated blood platelet count (count/volume) 150 10*3/uL 130-400 Automated blood platelet mean volume measurement 9.7 [foz_us] 7.4-10.4 Automated blood neutrophils/100 leukocytes 78 % 42-75 Automated blood lymphocytes/100 leukocytes 15 % 12-44 Blood monocytes/100 leukocytes 7 % 0-12 Automated blood eosinophils/100 leukocytes 0 % 0-10 Automated blood basophils/100 leukocytes 0 % 0-10 Blood neutrophils automated count (number/volume) 8.2 10*3 1.8-7.8 Blood lymphocytes automated count (number/volume) 1.6 10*3 1.0-4.0 Blood monocytes automated count (number/volume) 0. 7 10*3 0.0-1.0 Automated eosinophil count 0.0 10*3/uL 0 .0-0.3 Automated blood basophil count (count/volume) 0.0 10*3/uL 0.0-0.1 Comprehensive metabolic panel - 10/27/17 18:20 Serum or plasma sodium measurement (moles/volume) 141 mmol/L 135-145 Serum or plasma potassium measurement (moles/volume) 5.2 mmol/L 3.6-5.0 Serum or plasma chloride measurement (moles/volume) 98 mmol/L 98-107 Carbon dioxide 33 mmol/L 21-32 Serum or plasma anion gap determination (moles/volume) 10 mmol/L 5-14 Serum or plasma urea nitrogen measurement (mass/volume ) 34 mg/dL 7-18 Serum or plasma creatinine measurement (mass/volume) 1.62 mg/dL 0.60-1.30 Serum or plasma urea nitrogen/creatinine mass ratio 21 NRG Serum or plasma creatinine measurement w ith calculation of estimated glomerular filtration rate 43 NRG Serum or plasma glucose measurement (mass/volume) 150 mg/dL 70-105 Serum or plasma calcium measurement (mass/volume) 9.5 mg/dL 8.5-10.1 Serum or plasma total bilirubin measurement (mass/volu me) 0.3 mg/dL 0.1-1.0 Serum or plasma alkaline phosphatase lourdes surement (enzymatic activity/volume) 130 U/L 40-136 Serum or plasma aspartate aminotransfera se measurement (enzymatic activity/volume) 21 U/L 5-34 Serum or plasma alanine aminotransferase measurement (enzymatic activity/volume) 26 U/L 0-55 Serum or plasma protein measurement (mass/volume) 7.6 g/dL 6.4-8.2 Serum or plasma albumin measurement (mass/volume) 3.9 g/dL 3.2-4.5 Magnesium - 10/27/17 18:20 Magnesium 2.0 mg/dL 1.8-2.4 Serum or plasma creatine kinase measurem ent (enzymatic activity/volume) - 10/27/17 18:20 Serum or plasma creatine kinase measurem ent (enzymatic activity/volume) 78 U/L 30-200 Serum or plasma C reactive protein measu rement (mass/volume) - 10/27/17 18:20 Serum or plasma C reactive protein measurement (mass/v olume) 3.24 mg/dL 0.00-0.50 Serum or plasma ethanol measurement (mas s/volume) - 10/27/17 18:20 Serum or plasma ethanol measurement (mass/volume) < mg/dL <10 Serum or plasma lithium measurement (mol es/volume) - 10/27/17 18:20 BNP level 229.9 pg/mL <100.0 Blood lactic acid measurement (moles/vol ume) - 10/27/17 18:20 Blood lactic acid measurement (moles/volume) 1.76 mmol/L 0.50-2.00 Bacterial blood culture - 10/27/17 18:20 Bacterial blood culture NG NRG Arterial blood gas measurement - 8 18:36 Blood pCO2 88 mm[Hg] 35-45 Blood pO2 153 mm[Hg] 79-93 Arterial blood bicarbonate measurement (moles/volume) 38 mmol/L 23-27 Arterial blood base excess by calculation 10.8 mmo l/L -2.5-2.5 Arterial blood oxygen saturation measurement 100 % 94-100 * Inhaled oxygen flow rate 60% NRG Arterial blood pH measurement with patient temperature correction 7.26 7.37-7.43 Arterial blood carbon dioxide, total measurement (mole s/volume) 40.7 mmol/L 21.0-31.0 Body site RT RAD NRG Assessment of wrist artery patency prior to arterial p uncture YES-POS NRG Setting of ventilation mode NO NR G Measurement of body temperature 98.3 NRG Bacterial blood culture - 10/27/17 21:04 QUANTITY OF GROWTH . NRG Bacterial blood culture SEE COMMEN NRG Complete blood count (CBC) with automate d white blood cell (WBC) differential - 10/28/17 03:20 Blood leukocytes automated count (number/volume) 10.3 10*3/uL 4.3-11.0 Blood erythrocytes automated count (number/volume) 3.72 10*6/uL 4.35-5.85 Venous blood hemoglobin measurement (mass/volume) 11.0 g/dL 13.3-17.7 Blood hematocrit (volume fraction) 35 % 40-54 Automated erythrocyte mean corpuscular volume 95 [ foz_us] 80-99 Automated erythrocyte mean corpuscular h emoglobin (mass per erythrocyte) 30 pg 25-34 Automated erythrocyte mean corpuscular h emoglobin concentration measurement (mass/volume) 31 g/dL 32-36 Automated erythrocyte distribution width ratio 15. 7 % 10.0- 14.5 Automated blood platelet count (count/volume) 148 10*3/uL 130-400 Automated blood platelet mean volume measurement 9.8 [foz_us] 7.4-10.4 Automated blood neutrophils/100 leukocytes 90 % 42-75 Automated blood lymphocytes/100 leukocytes 8 % 12-44 Blood monocytes/100 leukocytes 2 % 0-12 Automated blood eosinophils/100 leukocytes 0 % 0-10 Automated blood basophils/100 leukocytes 0 % 0-10 Blood neutrophils automated count (number/volume) 9.3 10*3 1.8-7.8 Blood lymphocytes automated count (number/volume) 0.8 10*3 1.0-4.0 Blood monocytes automated count (number/volume) 0. 2 10*3 0.0-1.0 Automated eosinophil count 0.0 10*3/uL 0 .0-0.3 Automated blood basophil count (count/volume) 0.0 10*3/uL 0.0-0.1 Whole blood basic metabolic panel - 10/06 12/20 03:20 Serum or plasma sodium measurement (moles/volume) 140 mmol/L 135-145 Serum or plasma potassium measurement (moles/volume) 5.4 mmol/L 3.6-5.0 Serum or plasma chloride measurement (moles/volume) 98 mmol/L 98-107 Carbon dioxide 30 mmol/L 21-32 Serum or plasma anion gap determination (moles/volume) 12 mmol/L 5-14 Serum or plasma urea nitrogen measurement (mass/volume ) 33 mg/dL 7-18 Serum or plasma creatinine measurement (mass/volume) 1.30 mg/dL 0.60-1.30 Serum or plasma urea nitrogen/creatinine mass ratio 25 NRG Serum or plasma creatinine measurement w ith calculation of estimated glomerular filtration rate 56 NRG Serum or plasma glucose measurement (mass/volume) 158 mg/dL 70-105 Serum or plasma calcium measurement (mass/volume) 9.3 mg/dL 8.5-10.1 Serum or plasma phosphate measurement (m ass/volume) - 10/28/17 03:20 Serum or plasma phosphate measurement (mass/volume) 2.7 mg/dL 2.3-4.7 Magnesium - 10/28/17 03:20 Magnesium 2.1 mg/dL 1.8-2.4 Arterial blood gas measurement - 8 05:10 Blood pCO2 69 mm[Hg] 35-45 Blood pO2 71 mm[Hg] 79-93 Arterial blood bicarbonate measurement (moles/volume) 37 mmol/L 23-27 Arterial blood base excess by calculation 10.9 mmo l/L -2.5-2.5 Arterial blood oxygen saturation measurement 96 % 94-100 * Inhaled oxygen flow rate 40% NRG Arterial blood pH measurement with patient temperature correction 7.35 7.37-7.43 Arterial blood carbon dioxide, total measurement (mole s/volume) 39.0 mmol/L 21.0-31.0 Body site LEFT RADIAL NRG Assessment of wrist artery patency prior to arterial p uncture YES-POS NRG Setting of ventilation mode NO NR G Measurement of body temperature 98.3 NRG Capillary blood glucose measurement by g lucometer (mass/volume) - 10/28/17 11:23 Capillary blood glucose measurement by glucometer (mas s/volume) 225 mg/dL 70-110 Capillary blood glucose measurement by g lucometer (mass/volume) - 10/28/17 16:23 Capillary blood glucose measurement by glucometer (mas s/volume) 226 mg/dL 70-110 Capillary blood glucose measurement by g lucometer (mass/volume) - 10/28/17 20:47 Capillary blood glucose measurement by glucometer (mas s/volume) 232 mg/dL 70-110 Capillary blood glucose measurement by g lucometer (mass/volume) - 10/29/17 06:18 Capillary blood glucose measurement by glucometer (mas s/volume) 194 mg/dL 70-110 Capillary blood glucose measurement by g lucometer (mass/volume) - 10/29/17 11:12 Capillary blood glucose measurement by glucometer (mas s/volume) 270 mg/dL 70-110 Comprehensive metabolic panel - 10/29/17 11:50 Serum or plasma sodium measurement (moles/volume) 135 mmol/L 135-145 Serum or plasma potassium measurement (moles/volume) 5.7 mmol/L 3.6-5.0 Serum or plasma chloride measurement (moles/volume) 96 mmol/L 98-107 Carbon dioxide 29 mmol/L 21-32 Serum or plasma anion gap determination (moles/volume) 10 mmol/L 5-14 Serum or plasma urea nitrogen measurement (mass/volume ) 35 mg/dL 7-18 Serum or plasma creatinine measurement (mass/volume) 1.28 mg/dL 0.60-1.30 Serum or plasma urea nitrogen/creatinine mass ratio 27 NRG Serum or plasma creatinine measurement w ith calculation of estimated glomerular filtration rate 57 NRG Serum or plasma glucose measurement (mass/volume) 276 mg/dL 70-105 Serum or plasma calcium measurement (mass/volume) 9.2 mg/dL 8.5-10.1 Serum or plasma total bilirubin measurement (mass/volu me) 0.3 mg/dL 0.1-1.0 Serum or plasma alkaline phosphatase lourdes surement (enzymatic activity/volume) 107 U/L 40-136 Serum or plasma aspartate aminotransfera se measurement (enzymatic activity/volume) 13 U/L 5-34 Serum or plasma alanine aminotransferase measurement (enzymatic activity/volume) 21 U/L 0-55 Serum or plasma protein measurement (mass/volume) 6.9 g/dL 6.4-8.2 Serum or plasma albumin measurement (mass/volume) 3.6 g/dL 3.2-4.5 Complete blood count (CBC) with automate d white blood cell (WBC) differential - 10/29/17 11:50 Blood leukocytes automated count (number/volume) 11.8 10*3/uL 4.3-11.0 Blood erythrocytes automated count (number/volume) 3.79 10*6/uL 4.35-5.85 Venous blood hemoglobin measurement (mass/volume) 11.1 g/dL 13.3-17.7 Blood hematocrit (volume fraction) 35 % 40-54 Automated erythrocyte mean corpuscular volume 93 [ foz_us] 80-99 Automated erythrocyte mean corpuscular h emoglobin (mass per erythrocyte) 29 pg 25-34 Automated erythrocyte mean corpuscular h emoglobin concentration measurement (mass/volume) 32 g/dL 32-36 Automated erythrocyte distribution width ratio 15. 6 % 10.0- 14.5 Automated blood platelet count (count/volume) 156 10*3/uL 130-400 Automated blood platelet mean volume measurement 9.8 [foz_us] 7.4-10.4 Automated blood neutrophils/100 leukocytes 91 % 42-75 Automated blood lymphocytes/100 leukocytes 6 % 12-44 Blood monocytes/100 leukocytes 3 % 0-12 Automated blood eosinophils/100 leukocytes 0 % 0-10 Automated blood basophils/100 leukocytes 0 % 0-10 Blood neutrophils automated count (number/volume) 10.7 10*3 1.8-7.8 Blood lymphocytes automated count (number/volume) 0.7 10*3 1.0-4.0 Blood monocytes automated count (number/volume) 0. 4 10*3 0.0-1.0 Automated eosinophil count 0.0 10*3/uL 0 .0-0.3 Automated blood basophil count (count/volume) 0.0 10*3/uL 0.0-0.1 Blood manual differential performed dete ction - 10/29/17 11:50 Blood monocytes/100 leukocytes 1 % NRG Manual blood segmented neutrophils/100 leukocytes 95 % NRG Manual blood lymphocytes/100 leukocytes 4 % NRG Blood erythrocyte morphology finding identification NORMAL NRG Blood stomatocytes detection by light microscopy S LIGHT NRG Capillary blood glucose measurement by g lucometer (mass/volume) - 10/29/17 16:21 Capillary blood glucose measurement by glucometer (mas s/volume) 279 mg/dL 70-110 Capillary blood glucose measurement by g lucometer (mass/volume) - 10/29/17 21:06 Capillary blood glucose measurement by glucometer (mas s/volume) 269 mg/dL 70-110 Capillary blood glucose measurement by g lucometer (mass/volume) - 10/30/17 05:46 Capillary blood glucose measurement by glucometer (mas s/volume) 193 mg/dL 70-110 Automated blood complete blood count (he mogram) panel - 10/30/17 07:39 Blood leukocytes automated count (number/volume) 14.0 10*3/uL 4.3-11.0 Blood erythrocytes automated count (number/volume) 4.00 10*6/uL 4.35-5.85 Venous blood hemoglobin measurement (mass/volume) 11.7 g/dL 13.3-17.7 Blood hematocrit (volume fraction) 37 % 40-54 Automated erythrocyte mean corpuscular volume 92 [ foz_us] 80-99 Automated erythrocyte mean corpuscular h emoglobin (mass per erythrocyte) 29 pg 25-34 Automated erythrocyte mean corpuscular h emoglobin concentration measurement (mass/volume) 32 g/dL 32-36 Automated erythrocyte distribution width ratio 15. 6 % 10.0- 14.5 Automated blood platelet count (count/volume) 195 10*3/uL 130-400 Automated blood platelet mean volume measurement 9.9 [foz_us] 7.4-10.4 Whole blood basic metabolic panel - 10/06 02/19 07:39 Serum or plasma sodium measurement (moles/volume) 134 mmol/L 135-145 Serum or plasma potassium measurement (moles/volume) 5.4 mmol/L 3.6-5.0 Serum or plasma chloride measurement (moles/volume) 95 mmol/L 98-107 Carbon dioxide 29 mmol/L 21-32 Serum or plasma anion gap determination (moles/volume) 10 mmol/L 5-14 Serum or plasma urea nitrogen measurement (mass/volume ) 39 mg/dL 7-18 Serum or plasma creatinine measurement (mass/volume) 1.22 mg/dL 0.60-1.30 Serum or plasma urea nitrogen/creatinine mass ratio 32 NRG Serum or plasma creatinine measurement w ith calculation of estimated glomerular filtration rate 60 NRG Serum or plasma glucose measurement (mass/volume) 224 mg/dL 70-105 Serum or plasma calcium measurement (mass/volume) 9.5 mg/dL 8.5-10.1 Serum or plasma phosphate measurement (m ass/volume) - 10/30/17 07:39 Serum or plasma phosphate measurement (mass/volume) 3.2 mg/dL 2.3-4.7 Magnesium - 10/30/17 07:39 Magnesium 2.3 mg/dL 1.8-2.4 Serum or plasma lithium measurement (mol es/volume) - 10/30/17 07:39 BNP level 148.2 pg/mL <100.0 Capillary blood glucose measurement by g lucometer (mass/volume) - 10/30/17 11:19 Capillary blood glucose measurement by glucometer (mas s/volume) 216 mg/dL 70-110 Complete blood count (CBC) with automate d white blood cell (WBC) differential - 01/30/18 01:05 Blood leukocytes automated count (number/volume) 19.0 10*3/uL 4.3-11.0 Blood erythrocytes automated count (number/volume) 3.83 10*6/uL 4.35-5.85 Venous blood hemoglobin measurement (mass/volume) 11.1 g/dL 13.3-17.7 Blood hematocrit (volume fraction) 37 % 40-54 Automated erythrocyte mean corpuscular volume 96 [ foz_us] 80-99 Automated erythrocyte mean corpuscular h emoglobin (mass per erythrocyte) 29 pg 25-34 Automated erythrocyte mean corpuscular h emoglobin concentration measurement (mass/volume) 30 g/dL 32-36 Automated erythrocyte distribution width ratio 17. 3 % 10.0- 14.5 Automated blood platelet count (count/volume) 190 10*3/uL 130-400 Automated blood platelet mean volume measurement 9.5 [foz_us] 7.4-10.4 Automated blood neutrophils/100 leukocytes 85 % 42-75 Automated blood lymphocytes/100 leukocytes 6 % 12-44 Blood monocytes/100 leukocytes 8 % 0-12 Automated blood eosinophils/100 leukocytes 1 % 0-10 Automated blood basophils/100 leukocytes 0 % 0-10 Blood neutrophils automated count (number/volume) 16.3 10*3 1.8-7.8 Blood lymphocytes automated count (number/volume) 1.2 10*3 1.0-4.0 Blood monocytes automated count (number/volume) 1. 5 10*3 0.0-1.0 Automated eosinophil count 0.1 10*3/uL 0 .0-0.3 Automated blood basophil count (count/volume) 0.0 10*3/uL 0.0-0.1 PT panel in platelet poor plasma by coag ulation assay - 01/30/18 01:05 Prothrombin time (PT) in platelet poor plasma by coagu lation assay 12.7 s 12.2-14.7 INR in platelet poor plasma or blood by coagulation as say 1.0 0.8-1.4 Activated partial thromboplastin time (a PTT) in platelet poor plasma bycoagulation assay - 01/30/18 01:05 Activated partial thromboplastin time (a PTT) in platelet poor plasma bycoagulation assay 33 s 24-35 Blood manual differential performed dete ction - 01/30/18 01:05 Blood monocytes/100 leukocytes 5 % NRG Manual blood segmented neutrophils/100 leukocytes 86 % NRG Blood band neutrophils/100 leukocytes 2 % NRG Manual blood lymphocytes/100 leukocytes 7 % NRG Manual eosinophils/100 leukocytes in nose 0 % NRG Manual blood basophils/100 leukocytes 0 % NRG Blood polychromasia detection by light microscopy SLIGHT NRG Blood anisocytosis detection by light microscopy S LIGHT NRG Blood macrocytes detection by light microscopy SLI GHT NRG Blood hypochromia detection by light microscopy SL IGHT NRG Blood lactic acid measurement (moles/vol ume) - 01/30/18 01:05 Blood lactic acid measurement (moles/volume) 0.64 mmol/L 0.50-2.00 Comprehensive metabolic panel - 01/30/18 01:05 Serum or plasma sodium measurement (moles/volume) 140 mmol/L 135-145 Serum or plasma potassium measurement (moles/volume) 5.6 mmol/L 3.6-5.0 Serum or plasma chloride measurement (moles/volume) 96 mmol/L 98-107 Carbon dioxide 31 mmol/L 21-32 Serum or plasma anion gap determination (moles/volume) 13 mmol/L 5-14 Serum or plasma urea nitrogen measurement (mass/volume ) 28 mg/dL 7-18 Serum or plasma creatinine measurement (mass/volume) 1.64 mg/dL 0.60-1.30 Serum or plasma urea nitrogen/creatinine mass ratio 17 NRG Serum or plasma creatinine measurement w ith calculation of estimated glomerular filtration rate 43 NRG Serum or plasma glucose measurement (mass/volume) 176 mg/dL 70-105 Serum or plasma calcium measurement (mass/volume) 9.7 mg/dL 8.5-10.1 Serum or plasma total bilirubin measurement (mass/volu me) 0.5 mg/dL 0.1-1.0 Serum or plasma alkaline phosphatase lourdes surement (enzymatic activity/volume) 132 U/L 40-136 Serum or plasma aspartate aminotransfera se measurement (enzymatic activity/volume) 15 U/L 5-34 Serum or plasma alanine aminotransferase measurement (enzymatic activity/volume) 19 U/L 0-55 Serum or plasma protein measurement (mass/volume) 8.3 g/dL 6.4-8.2 Serum or plasma albumin measurement (mass/volume) 4.0 g/dL 3.2-4.5 Magnesium - 01/30/18 01:05 Magnesium 2.1 mg/dL 1.8-2.4 Serum or plasma creatine kinase measurem ent (enzymatic activity/volume) - 01/30/18 01:05 Serum or plasma creatine kinase measurem ent (enzymatic activity/volume) 28 U/L 30-200 Serum or plasma creatine kinase MB measu rement (enzymatic activity/volume) - 01/30/18 01:05 Serum or plasma creatine kinase MB measu rement (enzymatic activity/volume) 0.9 ng/mL <6.6 Serum or plasma troponin i.cardiac measu rement (mass/volume) - 01/30/18 01:05 Serum or plasma troponin i.cardiac measurement (mass/v olume) < ng/mL <0.30 Serum or plasma ethanol measurement (mas s/volume) - 01/30/18 01:05 Serum or plasma ethanol measurement (mass/volume) < mg/dL <10 Serum or plasma lithium measurement (mol es/volume) - 01/30/18 01:05 BNP level 24.3 pg/mL <100.0 Bacterial blood culture - 01/30/18 01:05 Bacterial blood culture NG NRG PROCALCITONIN - 01/30/18 01:05 Procalcitonin [mass/volume] in serum or plasma 0.2 1 % <=0.10 Capillary blood glucose measurement by g lucometer (mass/volume) - 01/30/18 01:09 Capillary blood glucose measurement by glucometer (mas s/volume) 180 mg/dL 70-110 Arterial blood gas measurement - 8 01:14 Blood pCO2 99 mm[Hg] 35-45 Blood pO2 131 mm[Hg] 79-93 Arterial blood bicarbonate measurement (moles/volume) 38 mmol/L 23-27 Arterial blood base excess by calculation 10.4 mmo l/L -2.5-2.5 Arterial blood oxygen saturation measurement 99 % 94-100 * Inhaled oxygen flow rate BIPAP NRG Arterial blood pH measurement with patient temperature correction 7.21 7.37-7.43 Arterial blood carbon dioxide, total measurement (mole s/volume) 41.1 mmol/L 21.0-31.0 Body site LRAD NRG Assessment of wrist artery patency prior to arterial p uncture YES-POS NRG Setting of ventilation mode NO NR G Measurement of body temperature 99.3 NRG Bacterial blood culture - 01/30/18 01:25 Bacterial blood culture NG NRG Complete urinalysis with reflex to cultu re - 01/30/18 02:00 Urine color determination YELLOW NRG Urine clarity determination SLIGHTLY CLOUDY NRG Urine pH measurement by test strip 5 5-9 Specific gravity of urine by test strip 1.025 1.016-1.022 Urine protein assay by test strip, semi-quantitative 3+ NEGATIVE Urine glucose detection by automated test strip NE GATIVE NEGATIVE Erythrocytes detection in urine sediment by light micr oscopy NEGATIVE NEGATIVE Urine ketones detection by automated test strip NE GATIVE NEGATIVE Urine nitrite detection by test strip NEGATIVE NEGATIVE Urine total bilirubin detection by test strip NEGA TIVE NEGATIVE Urine urobilinogen measurement by automated test strip (mass/volume) NORMAL NORMAL Urine leukocyte esterase detection by dipstick NEG ATIVE NEGATIVE Automated urine sediment erythrocyte cou nt by microscopy (number/high power field) NONE NRG Automated urine sediment leukocyte count by microscopy (number/high power field) NONE NRG Bacteria detection in urine sediment by light microsco py FEW NRG Squamous epithelial cells detection in u rine sediment by light microscopy RARE NRG Crystals detection in urine sediment by light microsco py NONE NRG Casts detection in urine sediment by light microscopy PRESENT NRG Mucus detection in urine sediment by light microscopy MODERATE NRG Complete urinalysis with reflex to culture NO NRG Hyaline casts detection in urine sediment by light jenny roscopy 5-10 NRG Urine drug screening test - 01/30/18 02: 00 Urine phencyclidine detection by screening method NEGATIVE NEGATIVE Urine benzodiazepines detection by screening method NEGATIVE NEGATIVE Urine cocaine detection NEGATIVE NEGATI VE Urine amphetamines detection by screening method N EGATIVE NEGATIVE Urine methamphetamine detection by screening method NEGATIVE NEGATIVE Urine cannabinoids detection by screening method P OSITIVE NEGATIVE Urine opiates detection by screening method NEGATI VE NEGATIVE Urine barbiturates detection NEGATIVE N EGATIVE Screening urine tricyclic antidepressants detection NEGATIVE NEGATIVE Urine methadone detection by screening method NEGA TIVE NEGATIVE Urine oxycodone detection POSITIVE NEGA TIVE Urine propoxyphene detection NEGATIVE N EGATIVE Arterial blood gas measurement - 8 02:40 Blood pCO2 99 mm[Hg] 35-45 Blood pO2 95 mm[Hg] 79-93 Arterial blood bicarbonate measurement (moles/volume) 39 mmol/L 23-27 Arterial blood base excess by calculation 11.3 mmo l/L -2.5-2.5 Arterial blood oxygen saturation measurement 96 % 94-100 * Inhaled oxygen flow rate BIPAP NRG Arterial blood pH measurement with patient temperature correction 7.22 7.37-7.43 Arterial blood carbon dioxide, total measurement (mole s/volume) 41.9 mmol/L 21.0-31.0 Body site L BRACH NRG Assessment of wrist artery patency prior to arterial p uncture NA NRG Setting of ventilation mode NO NR G Measurement of body temperature 99.3 NRG Complete blood count (CBC) with automate d white blood cell (WBC) differential - 01/30/18 07:47 Blood leukocytes automated count (number/volume) 19.4 10*3/uL 4.3-11.0 Blood erythrocytes automated count (number/volume) 3.68 10*6/uL 4.35-5.85 Venous blood hemoglobin measurement (mass/volume) 10.7 g/dL 13.3-17.7 Blood hematocrit (volume fraction) 35 % 40-54 Automated erythrocyte mean corpuscular volume 96 [ foz_us] 80-99 Automated erythrocyte mean corpuscular h emoglobin (mass per erythrocyte) 29 pg 25-34 Automated erythrocyte mean corpuscular h emoglobin concentration measurement (mass/volume) 30 g/dL 32-36 Automated erythrocyte distribution width ratio 17. 3 % 10.0- 14.5 Automated blood platelet count (count/volume) 204 10*3/uL 130-400 Automated blood platelet mean volume measurement 9.7 [foz_us] 7.4-10.4 Automated blood neutrophils/100 leukocytes 95 % 42-75 Automated blood lymphocytes/100 leukocytes 4 % 12-44 Blood monocytes/100 leukocytes 1 % 0-12 Automated blood eosinophils/100 leukocytes 0 % 0-10 Automated blood basophils/100 leukocytes 0 % 0-10 Blood neutrophils automated count (number/volume) 18.4 10*3 1.8-7.8 Blood lymphocytes automated count (number/volume) 0.8 10*3 1.0-4.0 Blood monocytes automated count (number/volume) 0. 3 10*3 0.0-1.0 Automated eosinophil count 0.0 10*3/uL 0 .0-0.3 Automated blood basophil count (count/volume) 0.0 10*3/uL 0.0-0.1 Comprehensive metabolic panel - 01/30/18 07:47 Serum or plasma sodium measurement (moles/volume) 139 mmol/L 135-145 Serum or plasma potassium measurement (moles/volume) 5.6 mmol/L 3.6-5.0 Serum or plasma chloride measurement (moles/volume) 96 mmol/L 98-107 Carbon dioxide 34 mmol/L 21-32 Serum or plasma anion gap determination (moles/volume) 9 mmol/L 5-14 Serum or plasma urea nitrogen measurement (mass/volume ) 29 mg/dL 7-18 Serum or plasma creatinine measurement (mass/volume) 1.70 mg/dL 0.60-1.30 Serum or plasma urea nitrogen/creatinine mass ratio 17 NRG Serum or plasma creatinine measurement w ith calculation of estimated glomerular filtration rate 41 NRG Serum or plasma glucose measurement (mass/volume) 223 mg/dL 70-105 Serum or plasma calcium measurement (mass/volume) 9.5 mg/dL 8.5-10.1 Serum or plasma total bilirubin measurement (mass/volu me) 0.5 mg/dL 0.1-1.0 Serum or plasma alkaline phosphatase lourdes surement (enzymatic activity/volume) 121 U/L 40-136 Serum or plasma aspartate aminotransfera se measurement (enzymatic activity/volume) 14 U/L 5-34 Serum or plasma alanine aminotransferase measurement (enzymatic activity/volume) 19 U/L 0-55 Serum or plasma protein measurement (mass/volume) 7.9 g/dL 6.4-8.2 Serum or plasma albumin measurement (mass/volume) 3.8 g/dL 3.2-4.5 Serum or plasma phosphate measurement (m ass/volume) - 01/30/18 07:47 Serum or plasma phosphate measurement (mass/volume) 3.7 mg/dL 2.3-4.7 Magnesium - 01/30/18 07:47 Magnesium 2.1 mg/dL 1.8-2.4 Sputum Gram stain - 01/30/18 07:55 GRAM STAIN SPUTUM AND MIXED BACTERIAL ELISSA NRG Bacterial sputum culture - 01/30/18 07:5 5 Bacterial sputum culture NORMAL NRG Arterial blood gas measurement - 8 08:45 Blood pCO2 85 mm[Hg] 35-45 Blood pO2 68 mm[Hg] 79-93 Arterial blood bicarbonate measurement (moles/volume) 39 mmol/L 23-27 Arterial blood base excess by calculation 12.2 mmo l/L -2.5-2.5 Arterial blood oxygen saturation measurement 92 % 94-100 * Inhaled oxygen flow rate 80% NRG Arterial blood pH measurement with patient temperature correction 7.28 7.37-7.43 Arterial blood carbon dioxide, total measurement (mole s/volume) 41.8 mmol/L 21.0-31.0 Body site Left radial NRG Assessment of wrist artery patency prior to arterial p uncture Negative NRG Setting of ventilation mode NO NR G Measurement of body temperature 98.3 NRG Methicillin resistant Staphylococcus aur eus (MRSA) screening culture - 01/30/18 12:40 Methicillin resistant Staphylococcus aureus (MRSA) scr eening culture NEG NRG Arterial blood gas measurement - 8 14:20 Blood pCO2 69 mm[Hg] 35-45 Blood pO2 72 mm[Hg] 79-93 Arterial blood bicarbonate measurement (moles/volume) 39 mmol/L 23-27 Arterial blood base excess by calculation 12.5 mmo l/L -2.5-2.5 Arterial blood oxygen saturation measurement 96 % 94-100 * Inhaled oxygen flow rate 40% BIPAP NR G Arterial blood pH measurement with patient temperature correction 7.36 7.37-7.43 Arterial blood carbon dioxide, total measurement (mole s/volume) 40.8 mmol/L 21.0-31.0 Body site RIGHT RADIAL NRG Assessment of wrist artery patency prior to arterial p uncture POSITIVE NRG Setting of ventilation mode NO NR G Measurement of body temperature 96.7 NRG Complete blood count (CBC) with automate d white blood cell (WBC) differential - 01/31/18 04:05 Blood leukocytes automated count (number/volume) 16.3 10*3/uL 4.3-11.0 Blood erythrocytes automated count (number/volume) 3.81 10*6/uL 4.35-5.85 Venous blood hemoglobin measurement (mass/volume) 11.0 g/dL 13.3-17.7 Blood hematocrit (volume fraction) 36 % 40-54 Automated erythrocyte mean corpuscular volume 94 [ foz_us] 80-99 Automated erythrocyte mean corpuscular h emoglobin (mass per erythrocyte) 29 pg 25-34 Automated erythrocyte mean corpuscular h emoglobin concentration measurement (mass/volume) 31 g/dL 32-36 Automated erythrocyte distribution width ratio 16. 9 % 10.0- 14.5 Automated blood platelet count (count/volume) 199 10*3/uL 130-400 Automated blood platelet mean volume measurement 9.6 [foz_us] 7.4-10.4 Automated blood neutrophils/100 leukocytes 92 % 42-75 Automated blood lymphocytes/100 leukocytes 5 % 12-44 Blood monocytes/100 leukocytes 3 % 0-12 Automated blood eosinophils/100 leukocytes 0 % 0-10 Automated blood basophils/100 leukocytes 0 % 0-10 Blood neutrophils automated count (number/volume) 15.0 10*3 1.8-7.8 Blood lymphocytes automated count (number/volume) 0.8 10*3 1.0-4.0 Blood monocytes automated count (number/volume) 0. 5 10*3 0.0-1.0 Automated eosinophil count 0.0 10*3/uL 0 .0-0.3 Automated blood basophil count (count/volume) 0.0 10*3/uL 0.0-0.1 Comprehensive metabolic panel - 01/31/18 04:05 Serum or plasma sodium measurement (moles/volume) 139 mmol/L 135-145 Serum or plasma potassium measurement (moles/volume) 4.9 mmol/L 3.6-5.0 Serum or plasma chloride measurement (moles/volume) 94 mmol/L 98-107 Carbon dioxide 32 mmol/L 21-32 Serum or plasma anion gap determination (moles/volume) 13 mmol/L 5-14 Serum or plasma urea nitrogen measurement (mass/volume ) 33 mg/dL 7-18 Serum or plasma creatinine measurement (mass/volume) 1.55 mg/dL 0.60-1.30 Serum or plasma urea nitrogen/creatinine mass ratio 21 NRG Serum or plasma creatinine measurement w ith calculation of estimated glomerular filtration rate 46 NRG Serum or plasma glucose measurement (mass/volume) 216 mg/dL 70-105 Serum or plasma calcium measurement (mass/volume) 9.8 mg/dL 8.5-10.1 Serum or plasma total bilirubin measurement (mass/volu me) 0.3 mg/dL 0.1-1.0 Serum or plasma alkaline phosphatase lourdes surement (enzymatic activity/volume) 113 U/L 40-136 Serum or plasma aspartate aminotransfera se measurement (enzymatic activity/volume) 15 U/L 5-34 Serum or plasma alanine aminotransferase measurement (enzymatic activity/volume) 19 U/L 0-55 Serum or plasma protein measurement (mass/volume) 7.6 g/dL 6.4-8.2 Serum or plasma albumin measurement (mass/volume) 3.6 g/dL 3.2-4.5 Serum or plasma phosphate measurement (m ass/volume) - 01/31/18 04:05 Serum or plasma phosphate measurement (mass/volume) 2.4 mg/dL 2.3-4.7 Magnesium - 01/31/18 04:05 Magnesium 2.1 mg/dL 1.8-2.4 Serum or plasma lithium measurement (mol es/volume) - 01/31/18 04:05 BNP level 113.7 pg/mL <100.0 Arterial blood gas measurement - 8 05:13 Blood pCO2 60 mm[Hg] 35-45 Blood pO2 90 mm[Hg] 79-93 Arterial blood bicarbonate measurement (moles/volume) 38 mmol/L 23-27 Arterial blood base excess by calculation 12.6 mmo l/L -2.5-2.5 Arterial blood oxygen saturation measurement 98 % 94-100 * Inhaled oxygen flow rate 45% BIPAP NR G Arterial blood pH measurement with patient temperature correction 7.42 7.37-7.43 Arterial blood carbon dioxide, total measurement (mole s/volume) 39.6 mmol/L 21.0-31.0 Body site R RAD NRG Assessment of wrist artery patency prior to arterial p uncture YES-POS NRG Setting of ventilation mode NO NR G Measurement of body temperature 98.7 NRG Capillary blood glucose measurement by g lucometer (mass/volume) - 01/31/18 11:02 Capillary blood glucose measurement by glucometer (mas s/volume) 176 mg/dL 70-110 Capillary blood glucose measurement by g lucometer (mass/volume) - 01/31/18 15:40 Capillary blood glucose measurement by glucometer (mas s/volume) 198 mg/dL 70-110 Capillary blood glucose measurement by g lucometer (mass/volume) - 01/31/18 23:27 Capillary blood glucose measurement by glucometer (mas s/volume) 179 mg/dL 70-110 Capillary blood glucose measurement by g lucometer (mass/volume) - 02/01/18 05:32 Capillary blood glucose measurement by glucometer (mas s/volume) 148 mg/dL 70-110 Complete blood count (CBC) with automate d white blood cell (WBC) differential - 02/01/18 05:36 Blood leukocytes automated count (number/volume) 12.5 10*3/uL 4.3-11.0 Blood erythrocytes automated count (number/volume) 3.71 10*6/uL 4.35-5.85 Venous blood hemoglobin measurement (mass/volume) 10.7 g/dL 13.3-17.7 Blood hematocrit (volume fraction) 35 % 40-54 Automated erythrocyte mean corpuscular volume 93 [ foz_us] 80-99 Automated erythrocyte mean corpuscular h emoglobin (mass per erythrocyte) 29 pg 25-34 Automated erythrocyte mean corpuscular h emoglobin concentration measurement (mass/volume) 31 g/dL 32-36 Automated erythrocyte distribution width ratio 17. 5 % 10.0- 14.5 Automated blood platelet count (count/volume) 217 10*3/uL 130-400 Automated blood platelet mean volume measurement 9.4 [foz_us] 7.4-10.4 Automated blood neutrophils/100 leukocytes 74 % 42-75 Automated blood lymphocytes/100 leukocytes 17 % 12-44 Blood monocytes/100 leukocytes 9 % 0-12 Automated blood eosinophils/100 leukocytes 0 % 0-10 Automated blood basophils/100 leukocytes 0 % 0-10 Blood neutrophils automated count (number/volume) 9.2 10*3 1.8-7.8 Blood lymphocytes automated count (number/volume) 2.1 10*3 1.0-4.0 Blood monocytes automated count (number/volume) 1. 1 10*3 0.0-1.0 Automated eosinophil count 0.0 10*3/uL 0 .0-0.3 Automated blood basophil count (count/volume) 0.0 10*3/uL 0.0-0.1 Whole blood basic metabolic panel - 01/04 09/21 05:36 Serum or plasma sodium measurement (moles/volume) 142 mmol/L 135-145 Serum or plasma potassium measurement (moles/volume) 4.3 mmol/L 3.6-5.0 Serum or plasma chloride measurement (moles/volume) 97 mmol/L 98-107 Carbon dioxide 32 mmol/L 21-32 Serum or plasma anion gap determination (moles/volume) 13 mmol/L 5-14 Serum or plasma urea nitrogen measurement (mass/volume ) 41 mg/dL 7-18 Serum or plasma creatinine measurement (mass/volume) 1.57 mg/dL 0.60-1.30 Serum or plasma urea nitrogen/creatinine mass ratio 26 NRG Serum or plasma creatinine measurement w ith calculation of estimated glomerular filtration rate 45 NRG Serum or plasma glucose measurement (mass/volume) 131 mg/dL 70-105 Serum or plasma calcium measurement (mass/volume) 9.5 mg/dL 8.5-10.1 Serum or plasma phosphate measurement (m ass/volume) - 02/01/18 05:36 Serum or plasma phosphate measurement (mass/volume) 3.2 mg/dL 2.3-4.7 Magnesium - 02/01/18 05:36 Magnesium 1.9 mg/dL 1.8-2.4 Capillary blood glucose measurement by g lucometer (mass/volume) - 02/01/18 11:03 Capillary blood glucose measurement by glucometer (mas s/volume) 112 mg/dL 70-110 Complete blood count (CBC) with automate d white blood cell (WBC) differential - 08/14/18 10:57 Blood leukocytes automated count (number/volume) 9.1 10*3/uL 4.3-11.0 Blood erythrocytes automated count (number/volume) 4.22 10*6/uL 4.35-5.85 Venous blood hemoglobin measurement (mass/volume) 12.2 g/dL 13.3-17.7 Blood hematocrit (volume fraction) 40 % 40-54 Automated erythrocyte mean corpuscular volume 94 [ foz_us] 80-99 Automated erythrocyte mean corpuscular h emoglobin (mass per erythrocyte) 29 pg 25-34 Automated erythrocyte mean corpuscular h emoglobin concentration measurement (mass/volume) 31 g/dL 32-36 Automated erythrocyte distribution width ratio 15. 7 % 10.0- 14.5 Automated blood platelet count (count/volume) 176 10*3/uL 130-400 Automated blood platelet mean volume measurement 9.5 [foz_us] 7.4-10.4 Automated blood neutrophils/100 leukocytes 81 % 42-75 Automated blood lymphocytes/100 leukocytes 12 % 12-44 Blood monocytes/100 leukocytes 6 % 0-12 Automated blood eosinophils/100 leukocytes 1 % 0-10 Automated blood basophils/100 leukocytes 0 % 0-10 Blood neutrophils automated count (number/volume) 7.4 10*3 1.8-7.8 Blood lymphocytes automated count (number/volume) 1.1 10*3 1.0-4.0 Blood monocytes automated count (number/volume) 0. 5 10*3 0.0-1.0 Automated eosinophil count 0.1 10*3/uL 0 .0-0.3 Automated blood basophil count (count/volume) 0.0 10*3/uL 0.0-0.1 Comprehensive metabolic panel - 08/14/18 10:57 Serum or plasma sodium measurement (moles/volume) 140 mmol/L 135-145 Serum or plasma potassium measurement (moles/volume) 4.6 mmol/L 3.6-5.0 Serum or plasma chloride measurement (moles/volume) 93 mmol/L 98-107 Carbon dioxide 36 mmol/L 21-32 Serum or plasma anion gap determination (moles/volume) 11 mmol/L 5-14 Serum or plasma urea nitrogen measurement (mass/volume ) 27 mg/dL 7-18 Serum or plasma creatinine measurement (mass/volume) 1.11 mg/dL 0.60-1.30 Serum or plasma urea nitrogen/creatinine mass ratio 24 NRG Serum or plasma creatinine measurement w ith calculation of estimated glomerular filtration rate > NRG Serum or plasma glucose measurement (mass/volume) 123 mg/dL 70-105 Serum or plasma calcium measurement (mass/volume) 10.0 mg/dL 8.5-10.1 Serum or plasma total bilirubin measurement (mass/volu me) 0.4 mg/dL 0.1-1.0 Serum or plasma alkaline phosphatase lourdes surement (enzymatic activity/volume) 129 U/L 40-136 Serum or plasma aspartate aminotransfera se measurement (enzymatic activity/volume) 15 U/L 5-34 Serum or plasma alanine aminotransferase measurement (enzymatic activity/volume) 14 U/L 0-55 Serum or plasma protein measurement (mass/volume) 7.8 g/dL 6.4-8.2 Serum or plasma albumin measurement (mass/volume) 4.0 g/dL 3.2-4.5 CALCIUM CORRECTED 10.0 mg/dL 8.5-10.1 Arterial blood gas measurement - 8 11:00 Blood pCO2 71 mm[Hg] 35-45 Blood pO2 76 mm[Hg] 79-93 Arterial blood bicarbonate measurement (moles/volume) 41 mmol/L 23-27 Arterial blood base excess by calculation 14.4 mmo l/L -2.5-2.5 Arterial blood oxygen saturation measurement 97 % 94-100 * Inhaled oxygen flow rate 9 NRG Arterial blood pH measurement with patient temperature correction 7.37 7.37-7.43 Arterial blood carbon dioxide, total measurement (mole s/volume) 42.9 mmol/L 21.0-31.0 Body site RR NRG Assessment of wrist artery patency prior to arterial p uncture YES-POS NRG Setting of ventilation mode NO NR G Measurement of body temperature 96.8 NRG Complete blood count (CBC) with automate d white blood cell (WBC) differential - 09/19/18 05:45 Blood leukocytes automated count (number/volume) 12.2 10*3/uL 4.3-11.0 Blood erythrocytes automated count (number/volume) 3.89 10*6/uL 4.35-5.85 Venous blood hemoglobin measurement (mass/volume) 11.4 g/dL 13.3-17.7 Blood hematocrit (volume fraction) 38 % 40-54 Automated erythrocyte mean corpuscular volume 96 [ foz_us] 80-99 Automated erythrocyte mean corpuscular h emoglobin (mass per erythrocyte) 29 pg 25-34 Automated erythrocyte mean corpuscular h emoglobin concentration measurement (mass/volume) 30 g/dL 32-36 Automated erythrocyte distribution width ratio 15. 0 % 10.0- 14.5 Automated blood platelet count (count/volume) 238 10*3/uL 130-400 Automated blood platelet mean volume measurement 8.9 [foz_us] 7.4-10.4 Automated blood neutrophils/100 leukocytes 87 % 42-75 Automated blood lymphocytes/100 leukocytes 6 % 12-44 Blood monocytes/100 leukocytes 7 % 0-12 Automated blood eosinophils/100 leukocytes 0 % 0-10 Automated blood basophils/100 leukocytes 0 % 0-10 Blood neutrophils automated count (number/volume) 10.6 10*3 1.8-7.8 Blood lymphocytes automated count (number/volume) 0.7 10*3 1.0-4.0 Blood monocytes automated count (number/volume) 0. 9 10*3 0.0-1.0 Automated eosinophil count 0.0 10*3/uL 0 .0-0.3 Automated blood basophil count (count/volume) 0.0 10*3/uL 0.0-0.1 Blood lactic acid measurement (moles/vol ume) - 09/19/18 05:45 Blood lactic acid measurement (moles/volume) 0.60 mmol/L 0.50-2.00 Comprehensive metabolic panel - 09/19/18 05:45 Serum or plasma sodium measurement (moles/volume) 139 mmol/L 135-145 Serum or plasma potassium measurement (moles/volume) 5.1 mmol/L 3.6-5.0 Serum or plasma chloride measurement (moles/volume) 93 mmol/L 98-107 Carbon dioxide 36 mmol/L 21-32 Serum or plasma anion gap determination (moles/volume) 10 mmol/L 5-14 Serum or plasma urea nitrogen measurement (mass/volume ) 31 mg/dL 7-18 Serum or plasma creatinine measurement (mass/volume) 1.20 mg/dL 0.60-1.30 Serum or plasma urea nitrogen/creatinine mass ratio 26 NRG Serum or plasma creatinine measurement w ith calculation of estimated glomerular filtration rate > NRG Serum or plasma glucose measurement (mass/volume) 146 mg/dL 70-105 Serum or plasma calcium measurement (mass/volume) 9.4 mg/dL 8.5-10.1 Serum or plasma total bilirubin measurement (mass/volu me) 0.2 mg/dL 0.1-1.0 Serum or plasma alkaline phosphatase lourdes surement (enzymatic activity/volume) 149 U/L 40-136 Serum or plasma aspartate aminotransfera se measurement (enzymatic activity/volume) 20 U/L 5-34 Serum or plasma alanine aminotransferase measurement (enzymatic activity/volume) 17 U/L 0-55 Serum or plasma protein measurement (mass/volume) 7.8 g/dL 6.4-8.2 Serum or plasma albumin measurement (mass/volume) 3.7 g/dL 3.2-4.5 CALCIUM CORRECTED 9.6 mg/dL 8.5-10.1 PT panel in platelet poor plasma by coag ulation assay - 09/19/18 05:45 Prothrombin time (PT) in platelet poor plasma by coagu lation assay 12.5 s 12.2-14.7 INR in platelet poor plasma or blood by coagulation as say 0.9 0.8-1.4 Activated partial thromboplastin time (a PTT) in platelet poor plasma bycoagulation assay - 09/19/18 05:45 Activated partial thromboplastin time (a PTT) in platelet poor plasma bycoagulation assay 35 s 24-35 Blood manual differential performed dete ction - 09/19/18 05:45 Blood monocytes/100 leukocytes 7 % NRG Manual blood segmented neutrophils/100 leukocytes 79 % NRG Blood band neutrophils/100 leukocytes 9 % NRG Manual blood lymphocytes/100 leukocytes 1 % NRG Manual eosinophils/100 leukocytes in nose 2 % NR Blood erythrocyte morphology finding identification NORMAL [facility] Manual blood metamyelocytes/100 leukocytes 2 % NR Serum or plasma lithium measurement (mol es/volume) - 09/19/18 05:45 BNP level 56.1 pg/mL <100.0 Bacterial blood culture - 09/19/18 05:45 QUANTITY OF GROWTH Isolated [facility] Bacterial blood culture [id number] [facility] Influenza virus A and B antigen detectio n - 09/19/18 05:49 FLU RESULT NEGATIVE FOR INFLUENZA A AND B ANTIGENS BY IA [facility] Bacterial blood culture - 09/19/18 05:50 Bacterial blood culture NG [facility] Arterial blood gas measurement - 9 06:00 Blood pCO2 105 mm[Hg] 35-45 Blood pO2 85 mm[Hg] 79-93 Arterial blood bicarbonate measurement (moles/volume) 40 mmol/L 23-27 Arterial blood base excess by calculation 12.1 mmo l/L -2.5-2.5 Arterial blood oxygen saturation measurement 96 % 94-100 * Inhaled oxygen flow rate 60% BIPAP NR G Arterial blood pH measurement with patient temperature correction 7.21 7.37-7.43 Arterial blood carbon dioxide, total measurement (mole s/volume) 43.1 mmol/L 21.0-31.0 Body site RT RADIAL NRG Assessment of wrist artery patency prior to arterial p uncture YES-POS NRG Setting of ventilation mode NO NR G Measurement of body temperature 99.4 NRG Arterial blood gas measurement - 9 07:03 Blood pCO2 114 mm[Hg] 35-45 Blood pO2 91 mm[Hg] 79-93 Arterial blood bicarbonate measurement (moles/volume) 42 mmol/L 23-27 Arterial blood base excess by calculation 13.8 mmo l/L -2.5-2.5 Arterial blood oxygen saturation measurement 96 % 94-100 * Inhaled oxygen flow rate 70% NRG Arterial blood pH measurement with patient temperature correction 7.20 7.37-7.43 Arterial blood carbon dioxide, total measurement (mole s/volume) 45.4 mmol/L 21.0-31.0 Body site RR NRG Assessment of wrist artery patency prior to arterial p uncture YES-POS NRG Setting of ventilation mode NO NR G Measurement of body temperature 99.4 NRG Complete urinalysis with reflex to cultu re - 09/19/18 08:00 Urine color determination YELLOW NRG Urine clarity determination CLEAR NR G Urine pH measurement by test strip 5 5-9 Specific gravity of urine by test strip 1.025 1.016-1.022 Urine protein assay by test strip, semi-quantitative 3+ NEGATIVE Urine glucose detection by automated test strip NE GATIVE NEGATIVE Erythrocytes detection in urine sediment by light micr oscopy 1+ NEGATIVE Urine ketones detection by automated test strip NE GATIVE NEGATIVE Urine nitrite detection by test strip NEGATIVE NEGATIVE Urine total bilirubin detection by test strip NEGA TIVE NEGATIVE Urine urobilinogen measurement by automated test strip (mass/volume) NORMAL NORMAL Urine leukocyte esterase detection by dipstick NEG ATIVE NEGATIVE Automated urine sediment erythrocyte cou nt by microscopy (number/high power field) [HPF] NRG Automated urine sediment leukocyte count by microscopy (number/high power field) RARE NRG Bacteria detection in urine sediment by light microsco py TRACE NRG Squamous epithelial cells detection in u rine sediment by light microscopy RARE NRG Crystals detection in urine sediment by light microsco py NONE NRG Casts detection in urine sediment by light microscopy PRESENT NRG Mucus detection in urine sediment by light microscopy NEGATIVE NRG Complete urinalysis with reflex to culture CULTURE PENDING NRG Hyaline casts detection in urine sediment by light jenny roscopy 5-10 NRG Bacterial urine culture - 09/19/18 08:00 Bacterial urine culture NG NRG Sputum Gram stain - 09/19/18 08:15 Sputum Gram stain Mixed Bacterial Elissa NRG Bacterial sputum culture - 09/19/18 08:1 5 FREE TEXT EXTERNAL E TEST RESULTS FOR CEFTRIAXONE AND NRG QUANTITY OF GROWTH Many NRG FREE TEXT ENTRY 2 PENICILLIN (BOTH SUSCEPTIBLE) WE RE NRG FREE TEXT ENTRY 3 REPORTED BY [facility] 09/22 12:06 NRG Bacterial sputum culture [id number] NRG Methicillin resistant Staphylococcus aur eus (MRSA) screening culture - 09/19/18 10:30 Methicillin resistant Staphylococcus aureus (MRSA) scr eening culture NEG NRG Arterial blood gas measurement - 9 12:05 Blood pCO2 105 mm[Hg] 35-45 Blood pO2 182 mm[Hg] 79-93 Arterial blood bicarbonate measurement (moles/volume) 40 mmol/L 23-27 Arterial blood base excess by calculation 11.5 mmo l/L -2.5-2.5 Arterial blood oxygen saturation measurement 100 % 94-100 * Inhaled oxygen flow rate 100% NRG Arterial blood pH measurement with patient temperature correction 7.20 7.37-7.43 Arterial blood carbon dioxide, total measurement (mole s/volume) 42.7 mmol/L 21.0-31.0 Body site RR NRG Assessment of wrist artery patency prior to arterial p uncture YES-POS NRG Setting of ventilation mode YES NR G Measurement of body temperature 99.0 NRG BODY FLUID DIFFERENTIAL - 09/19/18 13:20 Specimen source identification of body fluid OTHER NRG Evaluation of color of body fluid RED NRG Determination of appearance of body fluid MKD CLDY NRG Manual body fluid polymorphonuclear cells/100 leukocyt es 95 % NRG Manual body fluid mononuclear cells/100 leukocytes 0 % NRG Manual body fluid lymphocytes/100 leukocytes 5 % NRG Other cells/100 leukocytes in body fluid by manual cou nt 0 % NRG Sputum Gram stain - 09/19/18 13:20 Sputum Gram stain 09-20-2018, 604. NRG Bacteria identification in bronchial spe cimen by aerobe culture - 09/19/18 13:20 QUANTITY OF GROWTH . NRG Bacteria identification in bronchial specimen by aerob e culture [id number] NRG FTX;REPORTABLE 6,000 CFU/ML NRG FREE TEXT ENTRY 2 SEE PREVIOUS CULTURE FOR SENSITI VITY NRG FREE TEXT ENTRY 3 RML SENT ID REPORT 09/21 08:06 NRG C FUNGUS SPUTUM FLUID TISSUE - 09/19/18 13:20 C FUNGUS SPUTUM FLUID TISSUE NG N RG Mycobacterium species detection by organ ism specific culture - 09/19/18 13:20 Arterial blood gas measurement - 9 15:55 Blood pCO2 95 mm[Hg] 35-45 Blood pO2 267 mm[Hg] 79-93 Arterial blood bicarbonate measurement (moles/volume) 37 mmol/L 23-27 Arterial blood base excess by calculation 10.0 mmo l/L -2.5-2.5 Arterial blood oxygen saturation measurement 100 % 94-100 * Inhaled oxygen flow rate 100% NRG Arterial blood pH measurement with patient temperature correction 7.23 7.37-7.43 Arterial blood carbon dioxide, total measurement (mole s/volume) 40.2 mmol/L 21.0-31.0 Body site LEFT RADIAL ARTLINE NRG Assessment of wrist artery patency prior to arterial p uncture NA NRG Setting of ventilation mode YES NR G Measurement of body temperature 100.2 NRG Urine Legionella pneumophila antigen ass ay - 09/19/18 18:20 Urine Legionella pneumophila antigen assay Negativ e NRG Streptococcus pneumoniae antigen detecti on - 09/19/18 18:20 Streptococcus pneumoniae antigen detection Negativ e NRG Complete blood count (CBC) with automate d white blood cell (WBC) differential - 09/20/18 03:30 Blood leukocytes automated count (number/volume) 14.1 10*3/uL 4.3-11.0 Blood erythrocytes automated count (number/volume) 3.43 10*6/uL 4.35-5.85 Venous blood hemoglobin measurement (mass/volume) 10.0 g/dL 13.3-17.7 Blood hematocrit (volume fraction) 33 % 40-54 Automated erythrocyte mean corpuscular volume 97 [ foz_us] 80-99 Automated erythrocyte mean corpuscular h emoglobin (mass per erythrocyte) 29 pg 25-34 Automated erythrocyte mean corpuscular h emoglobin concentration measurement (mass/volume) 30 g/dL 32-36 Automated erythrocyte distribution width ratio 15. 3 % 10.0- 14.5 Automated blood platelet count (count/volume) 222 10*3/uL 130-400 Automated blood platelet mean volume measurement 9.2 [foz_us] 7.4-10.4 Automated blood neutrophils/100 leukocytes 95 % 42-75 Automated blood lymphocytes/100 leukocytes 3 % 12-44 Blood monocytes/100 leukocytes 2 % 0-12 Automated blood eosinophils/100 leukocytes 0 % 0-10 Automated blood basophils/100 leukocytes 0 % 0-10 Blood neutrophils automated count (number/volume) 13.4 10*3 1.8-7.8 Blood lymphocytes automated count (number/volume) 0.4 10*3 1.0-4.0 Blood monocytes automated count (number/volume) 0. 3 10*3 0.0-1.0 Automated eosinophil count 0.0 10*3/uL 0 .0-0.3 Automated blood basophil count (count/volume) 0.0 10*3/uL 0.0-0.1 Arterial blood gas measurement - 9 03:30 Blood pCO2 74 mm[Hg] 35-45 Blood pO2 75 mm[Hg] 79-93 Arterial blood bicarbonate measurement (moles/volume) 36 mmol/L 23-27 Arterial blood base excess by calculation 9.7 mmol /L -2.5-2.5 Arterial blood oxygen saturation measurement 94 % 94-100 * Inhaled oxygen flow rate 65% NRG Arterial blood pH measurement with patient temperature correction 7.31 7.37-7.43 Arterial blood carbon dioxide, total measurement (mole s/volume) 38.3 mmol/L 21.0-31.0 Body site LEFT ARTLINE NRG Assessment of wrist artery patency prior to arterial p uncture ARTLINE NRG Setting of ventilation mode YES NR G Measurement of body temperature 99.0 NRG Comprehensive metabolic panel - 09/20/18 03:30 Serum or plasma sodium measurement (moles/volume) 140 mmol/L 135-145 Serum or plasma potassium measurement (moles/volume) 5.1 mmol/L 3.6-5.0 Serum or plasma chloride measurement (moles/volume) 99 mmol/L 98-107 Carbon dioxide 32 mmol/L 21-32 Serum or plasma anion gap determination (moles/volume) 9 mmol/L 5-14 Serum or plasma urea nitrogen measurement (mass/volume ) 36 mg/dL 7-18 Serum or plasma creatinine measurement (mass/volume) 1.55 mg/dL 0.60-1.30 Serum or plasma urea nitrogen/creatinine mass ratio 23 NRG Serum or plasma creatinine measurement w ith calculation of estimated glomerular filtration rate 46 NRG Serum or plasma glucose measurement (mass/volume) 165 mg/dL 70-105 Serum or plasma calcium measurement (mass/volume) 9.3 mg/dL 8.5-10.1 Serum or plasma total bilirubin measurement (mass/volu me) 0.2 mg/dL 0.1-1.0 Serum or plasma alkaline phosphatase lourdes surement (enzymatic activity/volume) 116 U/L 40-136 Serum or plasma aspartate aminotransfera se measurement (enzymatic activity/volume) 17 U/L 5-34 Serum or plasma alanine aminotransferase measurement (enzymatic activity/volume) 11 U/L 0-55 Serum or plasma protein measurement (mass/volume) 6.7 g/dL 6.4-8.2 Serum or plasma albumin measurement (mass/volume) 3.1 g/dL 3.2-4.5 CALCIUM CORRECTED 10.0 mg/dL 8.5-10.1 Serum or plasma phosphate measurement (m ass/volume) - 09/20/18 03:30 Serum or plasma phosphate measurement (mass/volume) 2.8 mg/dL 2.3-4.7 Magnesium - 09/20/18 03:30 Magnesium 2.1 mg/dL 1.8-2.4 Capillary blood glucose measurement by g lucometer (mass/volume) - 09/20/18 11:50 Capillary blood glucose measurement by glucometer (mas s/volume) 132 mg/dL 70-110 Capillary blood glucose measurement by g lucometer (mass/volume) - 09/20/18 17:08 Capillary blood glucose measurement by glucometer (mas s/volume) 115 mg/dL 70-110 Vancomycin trough - 09/20/18 21:35 Vancomycin trough 31.1 ug/mL 10.0-20.0 Capillary blood glucose measurement by g lucometer (mass/volume) - 09/21/18 00:09 Capillary blood glucose measurement by glucometer (mas s/volume) 126 mg/dL 70-110 Arterial blood gas measurement - 9 03:15 Blood pCO2 81 mm[Hg] 35-45 Blood pO2 74 mm[Hg] 79-93 Arterial blood bicarbonate measurement (moles/volume) 35 mmol/L 23-27 Arterial blood base excess by calculation 8.4 mmol /L -2.5-2.5 Arterial blood oxygen saturation measurement 94 % 94-100 * Inhaled oxygen flow rate 50% NRG Arterial blood pH measurement with patient temperature correction 7.26 7.37-7.43 Arterial blood carbon dioxide, total measurement (mole s/volume) 37.7 mmol/L 21.0-31.0 Body site ARTLINE NRG Assessment of wrist artery patency prior to arterial p uncture ARTLINE NRG Setting of ventilation mode YES NR G Measurement of body temperature 99.1 NRG Complete blood count (CBC) with automate d white blood cell (WBC) differential - 09/21/18 03:15 Blood leukocytes automated count (number/volume) 13.4 10*3/uL 4.3-11.0 Blood erythrocytes automated count (number/volume) 3.35 10*6/uL 4.35-5.85 Venous blood hemoglobin measurement (mass/volume) 10.0 g/dL 13.3-17.7 Blood hematocrit (volume fraction) 33 % 40-54 Automated erythrocyte mean corpuscular volume 98 [ foz_us] 80-99 Automated erythrocyte mean corpuscular h emoglobin (mass per erythrocyte) 30 pg 25-34 Automated erythrocyte mean corpuscular h emoglobin concentration measurement (mass/volume) 31 g/dL 32-36 Automated erythrocyte distribution width ratio 16. 0 % 10.0- 14.5 Automated blood platelet count (count/volume) 233 10*3/uL 130-400 Automated blood platelet mean volume measurement 8.9 [foz_us] 7.4-10.4 Automated blood neutrophils/100 leukocytes 89 % 42-75 Automated blood lymphocytes/100 leukocytes 4 % 12-44 Blood monocytes/100 leukocytes 7 % 0-12 Automated blood eosinophils/100 leukocytes 0 % 0-10 Automated blood basophils/100 leukocytes 0 % 0-10 Blood neutrophils automated count (number/volume) 11.9 10*3 1.8-7.8 Blood lymphocytes automated count (number/volume) 0.5 10*3 1.0-4.0 Blood monocytes automated count (number/volume) 0. 9 10*3 0.0-1.0 Automated eosinophil count 0.0 10*3/uL 0 .0-0.3 Automated blood basophil count (count/volume) 0.0 10*3/uL 0.0-0.1 Whole blood basic metabolic panel - 09/04 04/22 03:15 Serum or plasma sodium measurement (moles/volume) 142 mmol/L 135-145 Serum or plasma potassium measurement (moles/volume) 5.3 mmol/L 3.6-5.0 Serum or plasma chloride measurement (moles/volume) 102 mmol/L 98-107 Carbon dioxide 30 mmol/L 21-32 Serum or plasma anion gap determination (moles/volume) 10 mmol/L 5-14 Serum or plasma urea nitrogen measurement (mass/volume ) 33 mg/dL 7-18 Serum or plasma creatinine measurement (mass/volume) 1.12 mg/dL 0.60-1.30 Serum or plasma urea nitrogen/creatinine mass ratio 29 NRG Serum or plasma creatinine measurement w ith calculation of estimated glomerular filtration rate > NRG Serum or plasma glucose measurement (mass/volume) 131 mg/dL 70-105 Serum or plasma calcium measurement (mass/volume) 9.3 mg/dL 8.5-10.1 Serum or plasma phosphate measurement (m ass/volume) - 09/21/18 03:15 Serum or plasma phosphate measurement (mass/volume) 3.9 mg/dL 2.3-4.7 Magnesium - 09/21/18 03:15 Magnesium 2.0 mg/dL 1.8-2.4 Arterial blood gas measurement - 9 06:50 Blood pCO2 71 mm[Hg] 35-45 Blood pO2 83 mm[Hg] 79-93 Arterial blood bicarbonate measurement (moles/volume) 37 mmol/L 23-27 Arterial blood base excess by calculation 10.5 mmo l/L -2.5-2.5 Arterial blood oxygen saturation measurement 97 % 94-100 * Inhaled oxygen flow rate 50% NRG Arterial blood pH measurement with patient temperature correction 7.33 7.37-7.43 Arterial blood carbon dioxide, total measurement (mole s/volume) 38.8 mmol/L 21.0-31.0 Body site ARTLINE NRG Assessment of wrist artery patency prior to arterial p uncture ARTLINE NRG Setting of ventilation mode YES NR G Measurement of body temperature 98.4 NRG Capillary blood glucose measurement by g lucometer (mass/volume) - 09/21/18 11:32 Capillary blood glucose measurement by glucometer (mas s/volume) 131 mg/dL 70-110 Capillary blood glucose measurement by g lucometer (mass/volume) - 09/21/18 17:26 Capillary blood glucose measurement by glucometer (mas s/volume) 138 mg/dL 70-110 Capillary blood glucose measurement by g lucometer (mass/volume) - 09/22/18 00:04 Capillary blood glucose measurement by glucometer (mas s/volume) 145 mg/dL 70-110 Arterial blood gas measurement - 9 03:32 Blood pCO2 77 mm[Hg] 35-45 Blood pO2 69 mm[Hg] 79-93 Arterial blood bicarbonate measurement (moles/volume) 37 mmol/L 23-27 Arterial blood base excess by calculation 10.9 mmo l/L -2.5-2.5 Arterial blood oxygen saturation measurement 94 % 94-100 * Inhaled oxygen flow rate 50% NRG Arterial blood pH measurement with patient temperature correction 7.31 7.37-7.43 Arterial blood carbon dioxide, total measurement (mole s/volume) 39.8 mmol/L 21.0-31.0 Body site ART LINE NRG Assessment of wrist artery patency prior to arterial p uncture ART LINE NRG Setting of ventilation mode YES NR G Measurement of body temperature 98.4 NRG Complete blood count (CBC) with automate d white blood cell (WBC) differential - 09/22/18 03:37 Blood leukocytes automated count (number/volume) 8.7 10*3/uL 4.3-11.0 Blood erythrocytes automated count (number/volume) 3.32 10*6/uL 4.35-5.85 Venous blood hemoglobin measurement (mass/volume) 9.8 g/dL 13.3-17.7 Blood hematocrit (volume fraction) 33 % 40-54 Automated erythrocyte mean corpuscular volume 99 [ foz_us] 80-99 Automated erythrocyte mean corpuscular h emoglobin (mass per erythrocyte) 30 pg 25-34 Automated erythrocyte mean corpuscular h emoglobin concentration measurement (mass/volume) 30 g/dL 32-36 Automated erythrocyte distribution width ratio 16. 0 % 10.0- 14.5 Automated blood platelet count (count/volume) 217 10*3/uL 130-400 Automated blood platelet mean volume measurement 9.2 [foz_us] 7.4-10.4 Automated blood neutrophils/100 leukocytes 83 % 42-75 Automated blood lymphocytes/100 leukocytes 7 % 12-44 Blood monocytes/100 leukocytes 10 % 0-12 Automated blood eosinophils/100 leukocytes 0 % 0-10 Automated blood basophils/100 leukocytes 0 % 0-10 Blood neutrophils automated count (number/volume) 7.2 10*3 1.8-7.8 Blood lymphocytes automated count (number/volume) 0.6 10*3 1.0-4.0 Blood monocytes automated count (number/volume) 0. 8 10*3 0.0-1.0 Automated eosinophil count 0.0 10*3/uL 0 .0-0.3 Automated blood basophil count (count/volume) 0.0 10*3/uL 0.0-0.1 Whole blood basic metabolic panel - 09/04 05/23 03:37 Serum or plasma sodium measurement (moles/volume) 144 mmol/L 135-145 Serum or plasma potassium measurement (moles/volume) 4.7 mmol/L 3.6-5.0 Serum or plasma chloride measurement (moles/volume) 103 mmol/L 98-107 Carbon dioxide 33 mmol/L 21-32 Serum or plasma anion gap determination (moles/volume) 8 mmol/L 5-14 Serum or plasma urea nitrogen measurement (mass/volume ) 30 mg/dL 7-18 Serum or plasma creatinine measurement (mass/volume) 1.01 mg/dL 0.60-1.30 Serum or plasma urea nitrogen/creatinine mass ratio 30 NRG Serum or plasma creatinine measurement w ith calculation of estimated glomerular filtration rate > NRG Serum or plasma glucose measurement (mass/volume) 159 mg/dL 70-105 Serum or plasma calcium measurement (mass/volume) 9.3 mg/dL 8.5-10.1 Serum or plasma phosphate measurement (m ass/volume) - 09/22/18 03:37 Serum or plasma phosphate measurement (mass/volume) 3.2 mg/dL 2.3-4.7 Magnesium - 09/22/18 03:37 Magnesium 2.2 mg/dL 1.8-2.4 Serum or plasma lithium measurement (mol es/volume) - 09/22/18 03:37 BNP level 82.6 pg/mL <100.0 Capillary blood glucose measurement by g lucometer (mass/volume) - 09/22/18 12:37 Capillary blood glucose measurement by glucometer (mas s/volume) 114 mg/dL 70-110 Arterial blood gas measurement - 9 13:04 Blood pCO2 69 mm[Hg] 35-45 Blood pO2 78 mm[Hg] 79-93 Arterial blood bicarbonate measurement (moles/volume) 38 mmol/L 23-27 Arterial blood base excess by calculation 11.8 mmo l/L -2.5-2.5 Arterial blood oxygen saturation measurement 97 % 94-100 * Inhaled oxygen flow rate 50% NRG Arterial blood pH measurement with patient temperature correction 7.35 7.37-7.43 Arterial blood carbon dioxide, total measurement (mole s/volume) 40.0 mmol/L 21.0-31.0 Body site LEFT RADIAL NRG Assessment of wrist artery patency prior to arterial p uncture POSITIVE NRG Setting of ventilation mode YES NR G Measurement of body temperature 97.6 NRG Capillary blood glucose measurement by g lucometer (mass/volume) - 09/22/18 17:24 Capillary blood glucose measurement by glucometer (mas s/volume) 154 mg/dL 70-110 Complete blood count (CBC) with automate d white blood cell (WBC) differential - 09/23/18 03:12 Blood leukocytes automated count (number/volume) 10.8 10*3/uL 4.3-11.0 Blood erythrocytes automated count (number/volume) 3.39 10*6/uL 4.35-5.85 Venous blood hemoglobin measurement (mass/volume) 10.0 g/dL 13.3-17.7 Blood hematocrit (volume fraction) 33 % 40-54 Automated erythrocyte mean corpuscular volume 98 [ foz_us] 80-99 Automated erythrocyte mean corpuscular h emoglobin (mass per erythrocyte) 29 pg 25-34 Automated erythrocyte mean corpuscular h emoglobin concentration measurement (mass/volume) 30 g/dL 32-36 Automated erythrocyte distribution width ratio 16. 4 % 10.0- 14.5 Automated blood platelet count (count/volume) 215 10*3/uL 130-400 Automated blood platelet mean volume measurement 9.1 [foz_us] 7.4-10.4 Automated blood neutrophils/100 leukocytes 77 % 42-75 Automated blood lymphocytes/100 leukocytes 12 % 12-44 Blood monocytes/100 leukocytes 10 % 0-12 Automated blood eosinophils/100 leukocytes 0 % 0-10 Automated blood basophils/100 leukocytes 0 % 0-10 Blood neutrophils automated count (number/volume) 8.3 10*3 1.8-7.8 Blood lymphocytes automated count (number/volume) 1.3 10*3 1.0-4.0 Blood monocytes automated count (number/volume) 1. 1 10*3 0.0-1.0 Automated eosinophil count 0.0 10*3/uL 0 .0-0.3 Automated blood basophil count (count/volume) 0.0 10*3/uL 0.0-0.1 Arterial blood gas measurement - 9 03:12 Blood pCO2 77 mm[Hg] 35-45 Blood pO2 67 mm[Hg] 79-93 Arterial blood bicarbonate measurement (moles/volume) 38 mmol/L 23-27 Arterial blood base excess by calculation 12.0 mmo l/L -2.5-2.5 Arterial blood oxygen saturation measurement 91 % 94-100 * Inhaled oxygen flow rate 45% NRG Arterial blood pH measurement with patient temperature correction 7.32 7.37-7.43 Arterial blood carbon dioxide, total measurement (mole s/volume) 40.6 mmol/L 21.0-31.0 Body site ART LINE NRG Assessment of wrist artery patency prior to arterial p uncture ART LINE NRG Setting of ventilation mode YES NR G Measurement of body temperature 99.3 NRG Whole blood basic metabolic panel - 09/05 03:12 Serum or plasma sodium measurement (moles/volume) 146 mmol/L 135-145 Serum or plasma potassium measurement (moles/volume) 4.4 mmol/L 3.6-5.0 Serum or plasma chloride measurement (moles/volume) 103 mmol/L 98-107 Carbon dioxide 31 mmol/L 21-32 Serum or plasma anion gap determination (moles/volume) 12 mmol/L 5-14 Serum or plasma urea nitrogen measurement (mass/volume ) 36 mg/dL 7-18 Serum or plasma creatinine measurement (mass/volume) 0.94 mg/dL 0.60-1.30 Serum or plasma urea nitrogen/creatinine mass ratio 38 NRG Serum or plasma creatinine measurement w ith calculation of estimated glomerular filtration rate > NRG Serum or plasma glucose measurement (mass/volume) 130 mg/dL 70-105 Serum or plasma calcium measurement (mass/volume) 9.0 mg/dL 8.5-10.1 Serum or plasma phosphate measurement (m ass/volume) - 09/23/18 03:12 Serum or plasma phosphate measurement (mass/volume) 3.6 mg/dL 2.3-4.7 Magnesium - 09/23/18 03:12 Magnesium 2.2 mg/dL 1.8-2.4 Sputum Gram stain - 09/23/18 06:25 Sputum Gram stain No bacteria seen NRG Bacteria identification in bronchial spe cimen by aerobe culture - 09/23/18 06:25 QUANTITY OF GROWTH . NRG Bacteria identification in bronchial specimen by aerob e culture USUAL RESP NRG FTX;REPORTABLE 200 CFU/ML NRG C FUNGUS SPUTUM FLUID TISSUE - 09/23/18 06:25 QUANTITY OF GROWTH Moderate NRG FTX;REPORTABLE RML SENT ID REPORT 09/25 15:05 NRG C FUNGUS SPUTUM FLUID TISSUE [id number] N RG Mycobacterium species detection by organ ism specific culture - 09/23/18 06:25 Arterial blood gas measurement - 9 11:49 Blood pCO2 76 mm[Hg] 35-45 Blood pO2 66 mm[Hg] 79-93 Arterial blood bicarbonate measurement (moles/volume) 38 mmol/L 23-27 Arterial blood base excess by calculation 11.1 mmo l/L -2.5-2.5 Arterial blood oxygen saturation measurement 94 % 94-100 * Inhaled oxygen flow rate 45% NRG Arterial blood pH measurement with patient temperature correction 7.31 7.37-7.43 Arterial blood carbon dioxide, total measurement (mole s/volume) 40.5 mmol/L 21.0-31.0 Body site LEFT RADIAL NRG Assessment of wrist artery patency prior to arterial p uncture POSITIVE NRG Setting of ventilation mode YES NR G Measurement of body temperature 98 NRG Capillary blood glucose measurement by g lucometer (mass/volume) - 09/23/18 12:27 Capillary blood glucose measurement by glucometer (mas s/volume) 128 mg/dL 70-110 Arterial blood gas measurement - 9 20:35 Blood pCO2 93 mm[Hg] 35-45 Blood pO2 175 mm[Hg] 79-93 Arterial blood bicarbonate measurement (moles/volume) 40 mmol/L 23-27 Arterial blood base excess by calculation 12.1 mmo l/L -2.5-2.5 Arterial blood oxygen saturation measurement 100 % 94-100 * Inhaled oxygen flow rate 100 NRG Arterial blood pH measurement with patient temperature correction 7.25 7.37-7.43 Arterial blood carbon dioxide, total measurement (mole s/volume) 42.4 mmol/L 21.0-31.0 Body site ARTLINE NRG Assessment of wrist artery patency prior to arterial p uncture NA NRG Setting of ventilation mode NO NR G Measurement of body temperature 98.0 NRG Arterial blood gas measurement - 9 22:00 Blood pCO2 71 mm[Hg] 35-45 Blood pO2 90 mm[Hg] 79-93 Arterial blood bicarbonate measurement (moles/volume) 38 mmol/L 23-27 Arterial blood base excess by calculation 11.8 mmo l/L -2.5-2.5 Arterial blood oxygen saturation measurement 98 % 94-100 * Inhaled oxygen flow rate 45% FIO2 BIPAP NRG Arterial blood pH measurement with patient temperature correction 7.34 7.37-7.43 Arterial blood carbon dioxide, total measurement (mole s/volume) 40.1 mmol/L 21.0-31.0 Body site LEFT ARTLINE NRG Assessment of wrist artery patency prior to arterial p uncture ARLTINE NRG Setting of ventilation mode NO NR G Measurement of body temperature 98.0 NRG Arterial blood gas measurement - 9 03:30 Blood pCO2 68 mm[Hg] 35-45 Blood pO2 97 mm[Hg] 79-93 Arterial blood bicarbonate measurement (moles/volume) 37 mmol/L 23-27 Arterial blood base excess by calculation 11.5 mmo l/L -2.5-2.5 Arterial blood oxygen saturation measurement 98 % 94-100 * Inhaled oxygen flow rate 45% BIPAP NR G Arterial blood pH measurement with patient temperature correction 7.36 7.37-7.43 Arterial blood carbon dioxide, total measurement (mole s/volume) 39.5 mmol/L 21.0-31.0 Body site L ART LINE NRG Assessment of wrist artery patency prior to arterial p uncture POSITIVE NRG Setting of ventilation mode NO NR G Measurement of body temperature 97.8 NRG Complete blood count (CBC) with automate d white blood cell (WBC) differential - 09/24/18 03:30 Blood leukocytes automated count (number/volume) 8.9 10*3/uL 4.3-11.0 Blood erythrocytes automated count (number/volume) 3.49 10*6/uL 4.35-5.85 Venous blood hemoglobin measurement (mass/volume) 9.9 g/dL 13.3-17.7 Blood hematocrit (volume fraction) 34 % 40-54 Automated erythrocyte mean corpuscular volume 98 [ foz_us] 80-99 Automated erythrocyte mean corpuscular h emoglobin (mass per erythrocyte) 28 pg 25-34 Automated erythrocyte mean corpuscular h emoglobin concentration measurement (mass/volume) 29 g/dL 32-36 Automated erythrocyte distribution width ratio 15. 8 % 10.0- 14.5 Automated blood platelet count (count/volume) 188 10*3/uL 130-400 Automated blood platelet mean volume measurement 9.1 [foz_us] 7.4-10.4 Automated blood neutrophils/100 leukocytes 89 % 42-75 Automated blood lymphocytes/100 leukocytes 8 % 12-44 Blood monocytes/100 leukocytes 3 % 0-12 Automated blood eosinophils/100 leukocytes 0 % 0-10 Automated blood basophils/100 leukocytes 0 % 0-10 Blood neutrophils automated count (number/volume) 7.9 10*3 1.8-7.8 Blood lymphocytes automated count (number/volume) 0.7 10*3 1.0-4.0 Blood monocytes automated count (number/volume) 0. 3 10*3 0.0-1.0 Automated eosinophil count 0.0 10*3/uL 0 .0-0.3 Automated blood basophil count (count/volume) 0.0 10*3/uL 0.0-0.1 Whole blood basic metabolic panel - 09/05 09/22 03:30 Serum or plasma sodium measurement (moles/volume) 146 mmol/L 135-145 Serum or plasma potassium measurement (moles/volume) 4.3 mmol/L 3.6-5.0 Serum or plasma chloride measurement (moles/volume) 103 mmol/L 98-107 Carbon dioxide 33 mmol/L 21-32 Serum or plasma anion gap determination (moles/volume) 10 mmol/L 5-14 Serum or plasma urea nitrogen measurement (mass/volume ) 31 mg/dL 7-18 Serum or plasma creatinine measurement (mass/volume) 0.84 mg/dL 0.60-1.30 Serum or plasma urea nitrogen/creatinine mass ratio 37 NRG Serum or plasma creatinine measurement w ith calculation of estimated glomerular filtration rate > NRG Serum or plasma glucose measurement (mass/volume) 135 mg/dL 70-105 Serum or plasma calcium measurement (mass/volume) 9.4 mg/dL 8.5-10.1 Serum or plasma phosphate measurement (m ass/volume) - 09/24/18 03:30 Serum or plasma phosphate measurement (mass/volume) 3.8 mg/dL 2.3-4.7 Magnesium - 09/24/18 03:30 Magnesium 2.1 mg/dL 1.8-2.4 Serum or plasma lithium measurement (mol es/volume) - 09/24/18 03:30 BNP level 384.3 pg/mL <100.0 Comprehensive metabolic panel - 11/02/18 15:03 Serum or plasma sodium measurement (moles/volume) 137 mmol/L 135-145 Serum or plasma potassium measurement (moles/volume) 3.8 mmol/L 3.6-5.0 Serum or plasma chloride measurement (moles/volume) 95 mmol/L 98-107 Carbon dioxide 32 mmol/L 21-32 Serum or plasma anion gap determination (moles/volume) 10 mmol/L 5-14 Serum or plasma urea nitrogen measurement (mass/volume ) 18 mg/dL 7-18 Serum or plasma creatinine measurement (mass/volume) 1.05 mg/dL 0.60-1.30 Serum or plasma urea nitrogen/creatinine mass ratio 17 NRG Serum or plasma creatinine measurement w ith calculation of estimated glomerular filtration rate > NRG Serum or plasma glucose measurement (mass/volume) 124 mg/dL 70-105 Serum or plasma calcium measurement (mass/volume) 9.4 mg/dL 8.5-10.1 Serum or plasma total bilirubin measurement (mass/volu me) 0.4 mg/dL 0.1-1.0 Serum or plasma alkaline phosphatase lourdes surement (enzymatic activity/volume) 98 U/L 40-136 Serum or plasma aspartate aminotransfera se measurement (enzymatic activity/volume) 19 U/L 5-34 Serum or plasma alanine aminotransferase measurement (enzymatic activity/volume) 11 U/L 0-55 Serum or plasma protein measurement (mass/volume) 6.8 g/dL 6.4-8.2 Serum or plasma albumin measurement (mass/volume) 3.5 g/dL 3.2-4.5 CALCIUM CORRECTED 9.8 mg/dL 8.5-10.1 Complete blood count (CBC) with automate d white blood cell (WBC) differential - 11/02/18 15:03 Blood leukocytes automated count (number/volume) 9.3 10*3/uL 4.3-11.0 Blood erythrocytes automated count (number/volume) 3.42 10*6/uL 4.35-5.85 Venous blood hemoglobin measurement (mass/volume) 9.8 g/dL 13.3-17.7 Blood hematocrit (volume fraction) 31 % 40-54 Automated erythrocyte mean corpuscular volume 91 [ foz_us] 80-99 Automated erythrocyte mean corpuscular h emoglobin (mass per erythrocyte) 29 pg 25-34 Automated erythrocyte mean corpuscular h emoglobin concentration measurement (mass/volume) 32 g/dL 32-36 Automated erythrocyte distribution width ratio 15. 5 % 10.0- 14.5 Automated blood platelet count (count/volume) 233 10*3/uL 130-400 Automated blood platelet mean volume measurement 9.9 [foz_us] 7.4-10.4 Automated blood neutrophils/100 leukocytes 84 % 42-75 Automated blood lymphocytes/100 leukocytes 5 % 12-44 Blood monocytes/100 leukocytes 10 % 0-12 Automated blood eosinophils/100 leukocytes 1 % 0-10 Automated blood basophils/100 leukocytes 0 % 0-10 Blood neutrophils automated count (number/volume) 7.8 10*3 1.8-7.8 Blood lymphocytes automated count (number/volume) 0.5 10*3 1.0-4.0 Blood monocytes automated count (number/volume) 0. 9 10*3 0.0-1.0 Automated eosinophil count 0.1 10*3/uL 0 .0-0.3 Automated blood basophil count (count/volume) 0.0 10*3/uL 0.0-0.1 Blood manual differential performed dete ction - 11/02/18 15:03 Blood monocytes/100 leukocytes 11 % NRG Manual blood segmented neutrophils/100 leukocytes 84 % NRG Blood band neutrophils/100 leukocytes 0 % NRG Manual blood lymphocytes/100 leukocytes 5 % NRG Manual eosinophils/100 leukocytes in nose 0 % NRG Manual blood basophils/100 leukocytes 0 % NRG Blood erythrocyte morphology finding identification NORMAL NRG Influenza virus A and B antigen detectio n - 11/02/18 15:40 FLU RESULT NEGATIVE FOR INFLUENZA A AND B ANTIGENS BY IA NRG Complete blood count (CBC) with automate d white blood cell (WBC) differential - 01/04/19 02:15 Blood leukocytes automated count (number/volume) 8.0 10*3/uL 4.3-11.0 Blood erythrocytes automated count (number/volume) 3.85 10*6/uL 4.35-5.85 Venous blood hemoglobin measurement (mass/volume) 10.7 g/dL 13.3-17.7 Blood hematocrit (volume fraction) 36 % 40-54 Automated erythrocyte mean corpuscular volume 94 [ foz_us] 80-99 Automated erythrocyte mean corpuscular h emoglobin (mass per erythrocyte) 28 pg 25-34 Automated erythrocyte mean corpuscular h emoglobin concentration measurement (mass/volume) 30 g/dL 32-36 Automated erythrocyte distribution width ratio 16. 0 % 10.0- 14.5 Automated blood platelet count (count/volume) 168 10*3/uL 130-400 Automated blood platelet mean volume measurement 9.4 [foz_us] 7.4-10.4 Automated blood neutrophils/100 leukocytes 84 % 42-75 Automated blood lymphocytes/100 leukocytes 8 % 12-44 Blood monocytes/100 leukocytes 8 % 0-12 Automated blood eosinophils/100 leukocytes 0 % 0-10 Automated blood basophils/100 leukocytes 0 % 0-10 Blood neutrophils automated count (number/volume) 6.7 10*3 1.8-7.8 Blood lymphocytes automated count (number/volume) 0.6 10*3 1.0-4.0 Blood monocytes automated count (number/volume) 0. 7 10*3 0.0-1.0 Automated eosinophil count 0.0 10*3/uL 0 .0-0.3 Automated blood basophil count (count/volume) 0.0 10*3/uL 0.0-0.1 PT panel in platelet poor plasma by coag ulation assay - 01/04/19 02:15 Prothrombin time (PT) in platelet poor plasma by coagu lation assay 13.6 s 12.2-14.7 INR in platelet poor plasma or blood by coagulation as say 1.0 0.8-1.4 Activated partial thromboplastin time (a PTT) in platelet poor plasma bycoagulation assay - 01/04/19 02:15 Activated partial thromboplastin time (a PTT) in platelet poor plasma bycoagulation assay 41 s 24-35 Comprehensive metabolic panel - 01/04/19 02:15 Serum or plasma sodium measurement (moles/volume) 143 mmol/L 135-145 Serum or plasma potassium measurement (moles/volume) 4.4 mmol/L 3.6-5.0 Serum or plasma chloride measurement (moles/volume) 92 mmol/L 98-107 Carbon dioxide 39 mmol/L 21-32 Serum or plasma anion gap determination (moles/volume) 12 mmol/L 5-14 Serum or plasma urea nitrogen measurement (mass/volume ) 13 mg/dL 7-18 Serum or plasma creatinine measurement (mass/volume) 0.93 mg/dL 0.60-1.30 Serum or plasma urea nitrogen/creatinine mass ratio 14 NRG Serum or plasma creatinine measurement w ith calculation of estimated glomerular filtration rate > NRG Serum or plasma glucose measurement (mass/volume) 119 mg/dL 70-105 Serum or plasma calcium measurement (mass/volume) 9.6 mg/dL 8.5-10.1 Serum or plasma total bilirubin measurement (mass/volu me) 0.3 mg/dL 0.1-1.0 Serum or plasma alkaline phosphatase lourdes surement (enzymatic activity/volume) 116 U/L 40-136 Serum or plasma aspartate aminotransfera se measurement (enzymatic activity/volume) 21 U/L 5-34 Serum or plasma alanine aminotransferase measurement (enzymatic activity/volume) 16 U/L 0-55 Serum or plasma protein measurement (mass/volume) 7.7 g/dL 6.4-8.2 Serum or plasma albumin measurement (mass/volume) 3.6 g/dL 3.2-4.5 CALCIUM CORRECTED 9.9 mg/dL 8.5-10.1 Magnesium - 01/04/19 02:15 Magnesium 2.1 mg/dL 1.8-2.4 Blood manual differential performed dete ction - 01/04/19 02:15 Blood monocytes/100 leukocytes 5 % NRG Manual blood segmented neutrophils/100 leukocytes 81 % NRG Blood band neutrophils/100 leukocytes 3 % NRG Manual blood lymphocytes/100 leukocytes 11 % NRG Blood anisocytosis detection by light microscopy S LIGHT NRG Serum or plasma lithium measurement (mol es/volume) - 01/04/19 02:15 BNP level 82.1 pg/mL <100.0 Serum or plasma troponin i.cardiac measu rement (mass/volume) - 01/04/19 02:15 Serum or plasma troponin i.cardiac measurement (mass/v olume) < ng/mL <0.028 Serum or plasma thyrotropin measurement by detection limit <=0.05 miu/l (units/volume) - 01/04/19 02:15 Serum or plasma thyrotropin measurement by detection limit <=0.05 miu/l (units/volume) 0.88 u[iU]/mL 0.35-4.94 Serum or plasma ethanol measurement (mas s/volume) - 01/04/19 02:15 Serum or plasma ethanol measurement (mass/volume) < mg/dL <10 Arterial blood gas measurement - 9 02:20 Blood pCO2 108 mm[Hg] 35-45 Blood pO2 96 mm[Hg] 79-93 Arterial blood bicarbonate measurement (moles/volume) 47 mmol/L 23-27 Arterial blood base excess by calculation 19.1 mmo l/L -2.5-2.5 Arterial blood oxygen saturation measurement 98 % 94-100 * Inhaled oxygen flow rate 6 NRG Arterial blood pH measurement with patient temperature correction 7.26 7.37-7.43 Arterial blood carbon dioxide, total measurement (mole s/volume) 50.5 mmol/L 21.0-31.0 Body site LT RADIAL NRG Assessment of wrist artery patency prior to arterial p uncture YES-POS NRG Setting of ventilation mode NO NR G Measurement of body temperature 97.2 NRG Blood lactic acid measurement (moles/vol ume) - 01/04/19 03:20 Blood lactic acid measurement (moles/volume) 0.64 mmol/L 0.50-2.00 Bacterial blood culture - 01/04/19 03:20 Bacterial blood culture NG NRG Bacterial blood culture - 01/04/19 03:47 Bacterial blood culture NG NRG Complete urinalysis with reflex to cultu re - 01/04/19 04:11 Urine color determination YELLOW NRG Urine clarity determination CLEAR NR G Urine pH measurement by test strip 5 5-9 Specific gravity of urine by test strip 1.015 1.016-1.022 Urine protein assay by test strip, semi-quantitative 4+ NEGATIVE Urine glucose detection by automated test strip NE GATIVE NEGATIVE Erythrocytes detection in urine sediment by light micr oscopy 4+ NEGATIVE Urine ketones detection by automated test strip NE GATIVE NEGATIVE Urine nitrite detection by test strip NEGATIVE NEGATIVE Urine total bilirubin detection by test strip NEGA TIVE NEGATIVE Urine urobilinogen measurement by automated test strip (mass/volume) NORMAL NORMAL Urine leukocyte esterase detection by dipstick NEG ATIVE NEGATIVE Automated urine sediment erythrocyte cou nt by microscopy (number/high power field) [HPF] NRG Automated urine sediment leukocyte count by microscopy (number/high power field) NONE NRG Bacteria detection in urine sediment by light microsco py TRACE NRG Squamous epithelial cells detection in u rine sediment by light microscopy 0-2 NRG Crystals detection in urine sediment by light microsco py NONE NRG Casts detection in urine sediment by light microscopy PRESENT NRG Mucus detection in urine sediment by light microscopy NEGATIVE NRG Complete urinalysis with reflex to culture NO NRG Hyaline casts detection in urine sediment by light jenny roscopy 10-25 NRG Urine drug screening test - 01/04/19 04: 11 Urine phencyclidine detection by screening method NEGATIVE NEGATIVE Urine benzodiazepines detection by screening method NEGATIVE NEGATIVE Urine cocaine detection NEGATIVE NEGATI VE Urine amphetamines detection by screening method N EGATIVE NEGATIVE Urine methamphetamine detection by screening method NEGATIVE NEGATIVE Urine cannabinoids detection by screening method P OSITIVE NEGATIVE Urine opiates detection by screening method POSITI VE NEGATIVE Urine barbiturates detection NEGATIVE N EGATIVE Screening urine tricyclic antidepressants detection NEGATIVE NEGATIVE Urine methadone detection by screening method NEGA TIVE NEGATIVE Urine oxycodone detection NEGATIVE NEGA TIVE Urine propoxyphene detection NEGATIVE N EGATIVE Arterial blood gas measurement - 9 04:13 Blood pCO2 89 mm[Hg] 35-45 Blood pO2 73 mm[Hg] 79-93 Arterial blood bicarbonate measurement (moles/volume) 48 mmol/L 23-27 Arterial blood base excess by calculation 20.5 mmo l/L -2.5-2.5 Arterial blood oxygen saturation measurement 96 % 94-100 * Inhaled oxygen flow rate 40% BIPAP NR G Arterial blood pH measurement with patient temperature correction 7.34 7.37-7.43 Arterial blood carbon dioxide, total measurement (mole s/volume) 50.4 mmol/L 21.0-31.0 Body site LT RAD NRG Assessment of wrist artery patency prior to arterial p uncture YES-POS NRG Setting of ventilation mode NO NR G Measurement of body temperature 96.3 NRG Hemoglobin A1c - 01/04/19 04:45 Blood hemoglobin A1C measurement (mass/volume) 5.3 % 4.0-5.6 MEAN BLOOD GLUCOSE 105 % <=126 Sputum Gram stain - 01/04/19 05:00 Sputum Gram stain RELEVANT, INTERPRET WITH CAUTION . NRG Methicillin resistant Staphylococcus aur eus (MRSA) screening culture - 01/04/19 05:00 Methicillin resistant Staphylococcus aureus (MRSA) scr eening culture NEG NRG Bacterial sputum culture - 01/04/19 05:0 0 QUANTITY OF GROWTH . NRG Bacterial sputum culture USUAL RESP NRG Capillary blood glucose measurement by g lucometer (mass/volume) - 01/04/19 10:59 Capillary blood glucose measurement by glucometer (mas s/volume) 157 mg/dL 70-110 Capillary blood glucose measurement by g lucometer (mass/volume) - 01/04/19 15:57 Capillary blood glucose measurement by glucometer (mas s/volume) 186 mg/dL 70-110 Capillary blood glucose measurement by g lucometer (mass/volume) - 01/04/19 21:11 Capillary blood glucose measurement by glucometer (mas s/volume) 157 mg/dL 70-110 Complete blood count (CBC) with automate d white blood cell (WBC) differential - 01/05/19 02:58 Blood leukocytes automated count (number/volume) 5.3 10*3/uL 4.3-11.0 Blood erythrocytes automated count (number/volume) 3.74 10*6/uL 4.35-5.85 Venous blood hemoglobin measurement (mass/volume) 10.4 g/dL 13.3-17.7 Blood hematocrit (volume fraction) 33 % 40-54 Automated erythrocyte mean corpuscular volume 89 [ foz_us] 80-99 Automated erythrocyte mean corpuscular h emoglobin (mass per erythrocyte) 28 pg 25-34 Automated erythrocyte mean corpuscular h emoglobin concentration measurement (mass/volume) 31 g/dL 32-36 Automated erythrocyte distribution width ratio 16. 4 % 10.0- 14.5 Automated blood platelet count (count/volume) 178 10*3/uL 130-400 Automated blood platelet mean volume measurement 9.2 [foz_us] 7.4-10.4 Automated blood neutrophils/100 leukocytes 87 % 42-75 Automated blood lymphocytes/100 leukocytes 8 % 12-44 Blood monocytes/100 leukocytes 5 % 0-12 Automated blood eosinophils/100 leukocytes 0 % 0-10 Automated blood basophils/100 leukocytes 0 % 0-10 Blood neutrophils automated count (number/volume) 4.6 10*3 1.8-7.8 Blood lymphocytes automated count (number/volume) 0.4 10*3 1.0-4.0 Blood monocytes automated count (number/volume) 0. 3 10*3 0.0-1.0 Automated eosinophil count 0.0 10*3/uL 0 .0-0.3 Automated blood basophil count (count/volume) 0.0 10*3/uL 0.0-0.1 Comprehensive metabolic panel - 01/05/19 02:58 Serum or plasma sodium measurement (moles/volume) 142 mmol/L 135-145 Serum or plasma potassium measurement (moles/volume) 3.8 mmol/L 3.6-5.0 Serum or plasma chloride measurement (moles/volume) 93 mmol/L 98-107 Carbon dioxide 40 mmol/L 21-32 Serum or plasma anion gap determination (moles/volume) 9 mmol/L 5-14 Serum or plasma urea nitrogen measurement (mass/volume ) 24 mg/dL 7-18 Serum or plasma creatinine measurement (mass/volume) 0.97 mg/dL 0.60-1.30 Serum or plasma urea nitrogen/creatinine mass ratio 25 NRG Serum or plasma creatinine measurement w ith calculation of estimated glomerular filtration rate > NRG Serum or plasma glucose measurement (mass/volume) 145 mg/dL 70-105 Serum or plasma calcium measurement (mass/volume) 9.7 mg/dL 8.5-10.1 Serum or plasma total bilirubin measurement (mass/volu me) 0.3 mg/dL 0.1-1.0 Serum or plasma alkaline phosphatase lourdes surement (enzymatic activity/volume) 98 U/L 40-136 Serum or plasma aspartate aminotransfera se measurement (enzymatic activity/volume) 16 U/L 5-34 Serum or plasma alanine aminotransferase measurement (enzymatic activity/volume) 15 U/L 0-55 Serum or plasma protein measurement (mass/volume) 6.8 g/dL 6.4-8.2 Serum or plasma albumin measurement (mass/volume) 3.2 g/dL 3.2-4.5 CALCIUM CORRECTED 10.3 mg/dL 8.5-10.1 Serum or plasma phosphate measurement (m ass/volume) - 01/05/19 02:58 Serum or plasma phosphate measurement (mass/volume) 2.7 mg/dL 2.3-4.7 Magnesium - 01/05/19 02:58 Magnesium 1.8 mg/dL 1.8-2.4 Arterial blood gas measurement - 9 04:55 Blood pCO2 58 mm[Hg] 35-45 Blood pO2 88 mm[Hg] 79-93 Arterial blood bicarbonate measurement (moles/volume) 44 mmol/L 23-27 Arterial blood base excess by calculation 18.4 mmo l/L -2.5-2.5 Arterial blood oxygen saturation measurement 98 % 94-100 * Inhaled oxygen flow rate 45% NRG Arterial blood pH measurement with patient temperature correction 7.49 7.37-7.43 Arterial blood carbon dioxide, total measurement (mole s/volume) 45.5 mmol/L 21.0-31.0 Body site RIGHT RADIAL NRG Assessment of wrist artery patency prior to arterial p uncture YES-POS NRG Setting of ventilation mode NO NR G Measurement of body temperature 97.2 NRG Capillary blood glucose measurement by g lucometer (mass/volume) - 01/05/19 13:21 Capillary blood glucose measurement by glucometer (mas s/volume) 134 mg/dL 70-110 Capillary blood glucose measurement by g lucometer (mass/volume) - 01/05/19 15:55 Capillary blood glucose measurement by glucometer (mas s/volume) 90 mg/dL 70-110 Capillary blood glucose measurement by g lucometer (mass/volume) - 01/05/19 21:01 Capillary blood glucose measurement by glucometer (mas s/volume) 100 mg/dL 70-110 Complete blood count (CBC) with automate d white blood cell (WBC) differential - 01/06/19 05:06 Blood leukocytes automated count (number/volume) 8.3 10*3/uL 4.3-11.0 Blood erythrocytes automated count (number/volume) 3.90 10*6/uL 4.35-5.85 Venous blood hemoglobin measurement (mass/volume) 10.6 g/dL 13.3-17.7 Blood hematocrit (volume fraction) 35 % 40-54 Automated erythrocyte mean corpuscular volume 90 [ foz_us] 80-99 Automated erythrocyte mean corpuscular h emoglobin (mass per erythrocyte) 27 pg 25-34 Automated erythrocyte mean corpuscular h emoglobin concentration measurement (mass/volume) 30 g/dL 32-36 Automated erythrocyte distribution width ratio 16. 9 % 10.0- 14.5 Automated blood platelet count (count/volume) 192 10*3/uL 130-400 Automated blood platelet mean volume measurement 8.7 [foz_us] 7.4-10.4 Automated blood neutrophils/100 leukocytes 71 % 42-75 Automated blood lymphocytes/100 leukocytes 19 % 12-44 Blood monocytes/100 leukocytes 10 % 0-12 Automated blood eosinophils/100 leukocytes 0 % 0-10 Automated blood basophils/100 leukocytes 0 % 0-10 Blood neutrophils automated count (number/volume) 5.9 10*3 1.8-7.8 Blood lymphocytes automated count (number/volume) 1.6 10*3 1.0-4.0 Blood monocytes automated count (number/volume) 0. 8 10*3 0.0-1.0 Automated eosinophil count 0.0 10*3/uL 0 .0-0.3 Automated blood basophil count (count/volume) 0.0 10*3/uL 0.0-0.1 Comprehensive metabolic panel - 01/06/19 05:06 Serum or plasma sodium measurement (moles/volume) 142 mmol/L 135-145 Serum or plasma potassium measurement (moles/volume) 3.7 mmol/L 3.6-5.0 Serum or plasma chloride measurement (moles/volume) 95 mmol/L 98-107 Carbon dioxide 38 mmol/L 21-32 Serum or plasma anion gap determination (moles/volume) 9 mmol/L 5-14 Serum or plasma urea nitrogen measurement (mass/volume ) 32 mg/dL 7-18 Serum or plasma creatinine measurement (mass/volume) 1.01 mg/dL 0.60-1.30 Serum or plasma urea nitrogen/creatinine mass ratio 32 NRG Serum or plasma creatinine measurement w ith calculation of estimated glomerular filtration rate > NRG Serum or plasma glucose measurement (mass/volume) 83 mg/dL 70-105 Serum or plasma calcium measurement (mass/volume) 9.0 mg/dL 8.5-10.1 Serum or plasma total bilirubin measurement (mass/volu me) 0.3 mg/dL 0.1-1.0 Serum or plasma alkaline phosphatase lourdes surement (enzymatic activity/volume) 84 U/L 40-136 Serum or plasma aspartate aminotransfera se measurement (enzymatic activity/volume) 28 U/L 5-34 Serum or plasma alanine aminotransferase measurement (enzymatic activity/volume) 21 U/L 0-55 Serum or plasma protein measurement (mass/volume) 6.2 g/dL 6.4-8.2 Serum or plasma albumin measurement (mass/volume) 3.0 g/dL 3.2-4.5 CALCIUM CORRECTED 9.8 mg/dL 8.5-10.1 Capillary blood glucose measurement by g lucometer (mass/volume) - 01/06/19 05:24 Capillary blood glucose measurement by glucometer (mas s/volume) 75 mg/dL 70-110 Capillary blood glucose measurement by g lucometer (mass/volume) - 01/06/19 11:07 Capillary blood glucose measurement by glucometer (mas s/volume) 70 mg/dL 70-110 Capillary blood glucose measurement by g lucometer (mass/volume) - 01/06/19 11:59 Capillary blood glucose measurement by glucometer (mas s/volume) 113 mg/dL 70-110 Capillary blood glucose measurement by g lucometer (mass/volume) - 01/06/19 16:44 Capillary blood glucose measurement by glucometer (mas s/volume) 78 mg/dL 70-110 Capillary blood glucose measurement by g lucometer (mass/volume) - 01/06/19 20:49 Capillary blood glucose measurement by glucometer (mas s/volume) 128 mg/dL 70-110 Capillary blood glucose measurement by g lucometer (mass/volume) - 01/07/19 05:07 Capillary blood glucose measurement by glucometer (mas s/volume) 83 mg/dL 70-110 Automated blood complete blood count (he mogram) panel - 01/07/19 08:58 Blood leukocytes automated count (number/volume) 6.8 10*3/uL 4.3-11.0 Blood erythrocytes automated count (number/volume) 4.01 10*6/uL 4.35-5.85 Venous blood hemoglobin measurement (mass/volume) 11.0 g/dL 13.3-17.7 Blood hematocrit (volume fraction) 37 % 40-54 Automated erythrocyte mean corpuscular volume 91 [ foz_us] 80-99 Automated erythrocyte mean corpuscular h emoglobin (mass per erythrocyte) 27 pg 25-34 Automated erythrocyte mean corpuscular h emoglobin concentration measurement (mass/volume) 30 g/dL 32-36 Automated erythrocyte distribution width ratio 16. 5 % 10.0- 14.5 Automated blood platelet count (count/volume) 171 10*3/uL 130-400 Automated blood platelet mean volume measurement 8.9 [foz_us] 7.4-10.4 Whole blood basic metabolic panel - 02/20 08:58 Serum or plasma sodium measurement (moles/volume) 142 mmol/L 135-145 Serum or plasma potassium measurement (moles/volume) 3.9 mmol/L 3.6-5.0 Serum or plasma chloride measurement (moles/volume) 93 mmol/L 98-107 Carbon dioxide 41 mmol/L 21-32 Serum or plasma anion gap determination (moles/volume) 8 mmol/L 5-14 Serum or plasma urea nitrogen measurement (mass/volume ) 24 mg/dL 7-18 Serum or plasma creatinine measurement (mass/volume) 1.05 mg/dL 0.60-1.30 Serum or plasma urea nitrogen/creatinine mass ratio 23 NRG Serum or plasma creatinine measurement w ith calculation of estimated glomerular filtration rate > NRG Serum or plasma glucose measurement (mass/volume) 115 mg/dL 70-105 Serum or plasma calcium measurement (mass/volume) 9.3 mg/dL 8.5-10.1 Capillary blood glucose measurement by g lucometer (mass/volume) - 01/07/19 11:26 Capillary blood glucose measurement by glucometer (mas s/volume) 85 mg/dL 70-110 Capillary blood glucose measurement by g lucometer (mass/volume) - 01/07/19 15:42 Capillary blood glucose measurement by glucometer (mas s/volume) 132 mg/dL 70-110 Capillary blood glucose measurement by g lucometer (mass/volume) - 01/07/19 20:01 Capillary blood glucose measurement by glucometer (mas s/volume) 185 mg/dL 70-110 Capillary blood glucose measurement by g lucometer (mass/volume) - 01/08/19 05:08 Capillary blood glucose measurement by glucometer (mas s/volume) 87 mg/dL 70-110 Complete blood count (CBC) with automate d white blood cell (WBC) differential - 04/04/19 00:08 Blood leukocytes automated count (number/volume) 8.2 10*3/uL 4.3-11.0 Blood erythrocytes automated count (number/volume) 3.46 10*6/uL 4.35-5.85 Venous blood hemoglobin measurement (mass/volume) 9.7 g/dL 13.3-17.7 Blood hematocrit (volume fraction) 33 % 40-54 Automated erythrocyte mean corpuscular volume 95 [ foz_us] 80-99 Automated erythrocyte mean corpuscular h emoglobin (mass per erythrocyte) 28 pg 25-34 Automated erythrocyte mean corpuscular h emoglobin concentration measurement (mass/volume) 30 g/dL 32-36 Automated erythrocyte distribution width ratio 16. 5 % 10.0- 14.5 Automated blood platelet count (count/volume) 170 10*3/uL 130-400 Automated blood platelet mean volume measurement 8.6 [foz_us] 7.4-10.4 Automated blood neutrophils/100 leukocytes 75 % 42-75 Automated blood lymphocytes/100 leukocytes 15 % 12-44 Blood monocytes/100 leukocytes 9 % 0-12 Automated blood eosinophils/100 leukocytes 1 % 0-10 Automated blood basophils/100 leukocytes 0 % 0-10 Blood neutrophils automated count (number/volume) 6.1 10*3 1.8-7.8 Blood lymphocytes automated count (number/volume) 1.3 10*3 1.0-4.0 Blood monocytes automated count (number/volume) 0. 7 10*3 0.0-1.0 Automated eosinophil count 0.1 10*3/uL 0 .0-0.3 Automated blood basophil count (count/volume) 0.0 10*3/uL 0.0-0.1 PT panel in platelet poor plasma by coag ulation assay - 04/04/19 00:08 Prothrombin time (PT) in platelet poor plasma by coagu lation assay 12.8 s 12.2-14.7 INR in platelet poor plasma or blood by coagulation as say 0.9 0.8-1.4 Activated partial thromboplastin time (a PTT) in platelet poor plasma bycoagulation assay - 04/04/19 00:08 Activated partial thromboplastin time (a PTT) in platelet poor plasma bycoagulation assay 33 s 24-35 Comprehensive metabolic panel - 04/04/19 00:08 Serum or plasma sodium measurement (moles/volume) 144 mmol/L 135-145 Serum or plasma potassium measurement (moles/volume) 3.5 mmol/L 3.6-5.0 Serum or plasma chloride measurement (moles/volume) 91 mmol/L 98-107 Carbon dioxide 41 mmol/L 21-32 Serum or plasma anion gap determination (moles/volume) 12 mmol/L 5-14 Serum or plasma urea nitrogen measurement (mass/volume ) 14 mg/dL 7-18 Serum or plasma creatinine measurement (mass/volume) 1.16 mg/dL 0.60-1.30 Serum or plasma urea nitrogen/creatinine mass ratio 12 NRG Serum or plasma creatinine measurement w ith calculation of estimated glomerular filtration rate > NRG Serum or plasma glucose measurement (mass/volume) 96 mg/dL 70-105 Serum or plasma calcium measurement (mass/volume) 9.6 mg/dL 8.5-10.1 Serum or plasma total bilirubin measurement (mass/volu me) 0.3 mg/dL 0.1-1.0 Serum or plasma alkaline phosphatase lourdes surement (enzymatic activity/volume) 113 U/L 40-136 Serum or plasma aspartate aminotransfera se measurement (enzymatic activity/volume) 17 U/L 5-34 Serum or plasma alanine aminotransferase measurement (enzymatic activity/volume) 12 U/L 0-55 Serum or plasma protein measurement (mass/volume) 6.8 g/dL 6.4-8.2 Serum or plasma albumin measurement (mass/volume) 3.3 g/dL 3.2-4.5 CALCIUM CORRECTED 10.2 mg/dL 8.5-10.1 Arterial blood gas measurement - 9 01:06 Blood pCO2 102 mm[Hg] 35-45 Blood pO2 71 mm[Hg] 79-93 Arterial blood bicarbonate measurement (moles/volume) 48 mmol/L 23-27 Arterial blood base excess by calculation 20.3 mmo l/L -2.5-2.5 Arterial blood oxygen saturation measurement 89 % 94-100 * Inhaled oxygen flow rate 6L NRG Arterial blood pH measurement with patient temperature correction 7.29 7.37-7.43 Arterial blood carbon dioxide, total measurement (mole s/volume) 50.6 mmol/L 21.0-31.0 Body site R RAD NRG Assessment of wrist artery patency prior to arterial p uncture YES-POS NRG Setting of ventilation mode NO NR G Measurement of body temperature 99.6 NRG Bacterial blood culture - 04/04/19 03:15 Bacterial blood culture NG NRG Blood lactic acid measurement (moles/vol ume) - 04/04/19 03:25 Blood lactic acid measurement (moles/volume) 0.50 mmol/L 0.50-2.00 Bacterial blood culture - 04/04/19 03:25 Bacterial blood culture NG NRG Complete blood count (CBC) with automate d white blood cell (WBC) differential - 04/04/19 05:40 Blood leukocytes automated count (number/volume) 12.5 10*3/uL 4.3-11.0 Blood erythrocytes automated count (number/volume) 3.46 10*6/uL 4.35-5.85 Venous blood hemoglobin measurement (mass/volume) 9.6 g/dL 13.3-17.7 Blood hematocrit (volume fraction) 33 % 40-54 Automated erythrocyte mean corpuscular volume 95 [ foz_us] 80-99 Automated erythrocyte mean corpuscular h emoglobin (mass per erythrocyte) 28 pg 25-34 Automated erythrocyte mean corpuscular h emoglobin concentration measurement (mass/volume) 29 g/dL 32-36 Automated erythrocyte distribution width ratio 16. 5 % 10.0- 14.5 Automated blood platelet count (count/volume) 180 10*3/uL 130-400 Automated blood platelet mean volume measurement 8.5 [foz_us] 7.4-10.4 Automated blood neutrophils/100 leukocytes 95 % 42-75 Automated blood lymphocytes/100 leukocytes 3 % 12-44 Blood monocytes/100 leukocytes 2 % 0-12 Automated blood eosinophils/100 leukocytes 0 % 0-10 Automated blood basophils/100 leukocytes 0 % 0-10 Blood neutrophils automated count (number/volume) 11.8 10*3 1.8-7.8 Blood lymphocytes automated count (number/volume) 0.4 10*3 1.0-4.0 Blood monocytes automated count (number/volume) 0. 2 10*3 0.0-1.0 Automated eosinophil count 0.0 10*3/uL 0 .0-0.3 Automated blood basophil count (count/volume) 0.0 10*3/uL 0.0-0.1 Manual absolute plasma cell count - 09/22 05:40 Blood monocytes/100 leukocytes 4 % NRG Manual blood segmented neutrophils/100 leukocytes 92 % NRG Blood band neutrophils/100 leukocytes 1 % NRG Manual blood lymphocytes/100 leukocytes 3 % NRG Manual eosinophils/100 leukocytes in nose 0 % NRG Manual blood basophils/100 leukocytes 0 % NRG Blood polychromasia detection by light microscopy SLIGHT NRG Blood anisocytosis detection by light microscopy S LIGHT NRG Blood toxic granules detection by light microscopy 1+ NRG Blood hypochromia detection by light microscopy SL IGHT NRG Blood lactic acid measurement (moles/vol ume) - 04/04/19 05:40 Blood lactic acid measurement (moles/volume) 0.37 mmol/L 0.50-2.00 Comprehensive metabolic panel - 04/04/19 05:40 Serum or plasma sodium measurement (moles/volume) 143 mmol/L 135-145 Serum or plasma potassium measurement (moles/volume) 3.9 mmol/L 3.6-5.0 Serum or plasma chloride measurement (moles/volume) 90 mmol/L 98-107 Carbon dioxide 40 mmol/L 21-32 Serum or plasma anion gap determination (moles/volume) 13 mmol/L 5-14 Serum or plasma urea nitrogen measurement (mass/volume ) 15 mg/dL 7-18 Serum or plasma creatinine measurement (mass/volume) 1.17 mg/dL 0.60-1.30 Serum or plasma urea nitrogen/creatinine mass ratio 13 NRG Serum or plasma creatinine measurement w ith calculation of estimated glomerular filtration rate > NRG Serum or plasma glucose measurement (mass/volume) 118 mg/dL 70-105 Serum or plasma calcium measurement (mass/volume) 9.5 mg/dL 8.5-10.1 Serum or plasma total bilirubin measurement (mass/volu me) 0.4 mg/dL 0.1-1.0 Serum or plasma alkaline phosphatase lourdes surement (enzymatic activity/volume) 116 U/L 40-136 Serum or plasma aspartate aminotransfera se measurement (enzymatic activity/volume) 17 U/L 5-34 Serum or plasma alanine aminotransferase measurement (enzymatic activity/volume) 13 U/L 0-55 Serum or plasma protein measurement (mass/volume) 7.0 g/dL 6.4-8.2 Serum or plasma albumin measurement (mass/volume) 3.3 g/dL 3.2-4.5 CALCIUM CORRECTED 10.1 mg/dL 8.5-10.1 Serum or plasma phosphate measurement (m ass/volume) - 04/04/19 05:40 Serum or plasma phosphate measurement (mass/volume) 3.9 mg/dL 2.3-4.7 Magnesium - 04/04/19 05:40 Magnesium 1.4 mg/dL 1.8-2.4 Methicillin resistant Staphylococcus aur eus (MRSA) screening culture - 04/04/19 06:30 Methicillin resistant Staphylococcus aureus (MRSA) scr eening culture NEG NRG Arterial blood gas measurement - 9 06:40 Blood pCO2 94 mm[Hg] 35-45 Blood pO2 66 mm[Hg] 79-93 Arterial blood bicarbonate measurement (moles/volume) 49 mmol/L 23-27 Arterial blood base excess by calculation 21.4 mmo l/L -2.5-2.5 Arterial blood oxygen saturation measurement 92 % 94-100 * Inhaled oxygen flow rate 50% NRG Arterial blood pH measurement with patient temperature correction 7.33 7.37-7.43 Arterial blood carbon dioxide, total measurement (mole s/volume) 51.5 mmol/L 21.0-31.0 Body site L RAD NRG Assessment of wrist artery patency prior to arterial p uncture YES-POS NRG Setting of ventilation mode NO NR G Measurement of body temperature 97.5 NRG Arterial blood gas measurement - 9 08:30 Blood pCO2 86 mm[Hg] 35-45 Blood pO2 71 mm[Hg] 79-93 Arterial blood bicarbonate measurement (moles/volume) 48 mmol/L 23-27 Arterial blood base excess by calculation 21.4 mmo l/L -2.5-2.5 Arterial blood oxygen saturation measurement 93 % 94-100 * Inhaled oxygen flow rate 60% 21 RATE NRG Arterial blood pH measurement with patient temperature correction 7.36 7.37-7.43 Arterial blood carbon dioxide, total measurement (mole s/volume) 50.8 mmol/L 21.0-31.0 Body site LEFT WRIST NRG Assessment of wrist artery patency prior to arterial p uncture POSITIVE NRG Setting of ventilation mode NO NR G Measurement of body temperature 98.3 NRG Capillary blood glucose measurement by g lucometer (mass/volume) - 04/04/19 11:27 Capillary blood glucose measurement by glucometer (mas s/volume) 142 mg/dL 70-110 Capillary blood glucose measurement by g lucometer (mass/volume) - 04/04/19 15:47 Capillary blood glucose measurement by glucometer (mas s/volume) 185 mg/dL 70-110 Capillary blood glucose measurement by g lucometer (mass/volume) - 04/04/19 20:03 Capillary blood glucose measurement by glucometer (mas s/volume) 137 mg/dL 70-110 Complete blood count (CBC) with automate d white blood cell (WBC) differential - 04/05/19 01:41 Blood leukocytes automated count (number/volume) 10.6 10*3/uL 4.3-11.0 Blood erythrocytes automated count (number/volume) 3.05 10*6/uL 4.35-5.85 Venous blood hemoglobin measurement (mass/volume) 8.6 g/dL 13.3-17.7 Blood hematocrit (volume fraction) 28 % 40-54 Automated erythrocyte mean corpuscular volume 93 [ foz_us] 80-99 Automated erythrocyte mean corpuscular h emoglobin (mass per erythrocyte) 28 pg 25-34 Automated erythrocyte mean corpuscular h emoglobin concentration measurement (mass/volume) 31 g/dL 32-36 Automated erythrocyte distribution width ratio 16. 3 % 10.0- 14.5 Automated blood platelet count (count/volume) 156 10*3/uL 130-400 Automated blood platelet mean volume measurement 8.8 [foz_us] 7.4-10.4 Automated blood neutrophils/100 leukocytes 75 % 42-75 Automated blood lymphocytes/100 leukocytes 14 % 12-44 Blood monocytes/100 leukocytes 10 % 0-12 Automated blood eosinophils/100 leukocytes 0 % 0-10 Automated blood basophils/100 leukocytes 0 % 0-10 Blood neutrophils automated count (number/volume) 8.0 10*3 1.8-7.8 Blood lymphocytes automated count (number/volume) 1.5 10*3 1.0-4.0 Blood monocytes automated count (number/volume) 1. 1 10*3 0.0-1.0 Automated eosinophil count 0.0 10*3/uL 0 .0-0.3 Automated blood basophil count (count/volume) 0.0 10*3/uL 0.0-0.1 Comprehensive metabolic panel - 04/05/19 01:41 Serum or plasma sodium measurement (moles/volume) 140 mmol/L 135-145 Serum or plasma potassium measurement (moles/volume) 3.5 mmol/L 3.6-5.0 Serum or plasma chloride measurement (moles/volume) 90 mmol/L 98-107 Carbon dioxide 40 mmol/L 21-32 Serum or plasma anion gap determination (moles/volume) 10 mmol/L 5-14 Serum or plasma urea nitrogen measurement (mass/volume ) 21 mg/dL 7-18 Serum or plasma creatinine measurement (mass/volume) 1.20 mg/dL 0.60-1.30 Serum or plasma urea nitrogen/creatinine mass ratio 18 NRG Serum or plasma creatinine measurement w ith calculation of estimated glomerular filtration rate > NRG Serum or plasma glucose measurement (mass/volume) 89 mg/dL 70-105 Serum or plasma calcium measurement (mass/volume) 9.3 mg/dL 8.5-10.1 Serum or plasma total bilirubin measurement (mass/volu me) 0.4 mg/dL 0.1-1.0 Serum or plasma alkaline phosphatase lourdes surement (enzymatic activity/volume) 102 U/L 40-136 Serum or plasma aspartate aminotransfera se measurement (enzymatic activity/volume) 14 U/L 5-34 Serum or plasma alanine aminotransferase measurement (enzymatic activity/volume) 12 U/L 0-55 Serum or plasma protein measurement (mass/volume) 6.1 g/dL 6.4-8.2 Serum or plasma albumin measurement (mass/volume) 2.9 g/dL 3.2-4.5 CALCIUM CORRECTED 10.2 mg/dL 8.5-10.1 Serum or plasma troponin i.cardiac measu rement (mass/volume) - 04/05/19 01:41 Serum or plasma troponin i.cardiac measurement (mass/v olume) < ng/mL <0.028 Serum or plasma phosphate measurement (m ass/volume) - 04/05/19 01:41 Serum or plasma phosphate measurement (mass/volume) 3.0 mg/dL 2.3-4.7 Magnesium - 04/05/19 01:41 Magnesium 1.9 mg/dL 1.8-2.4 Serum or plasma troponin i.cardiac measu rement (mass/volume) - 04/05/19 08:19 Serum or plasma troponin i.cardiac measurement (mass/v olume) < ng/mL <0.028 Capillary blood glucose measurement by g lucometer (mass/volume) - 04/05/19 11:27 Capillary blood glucose measurement by glucometer (mas s/volume) 119 mg/dL 70-110 Capillary blood glucose measurement by g lucometer (mass/volume) - 04/05/19 15:44 Capillary blood glucose measurement by glucometer (mas s/volume) 89 mg/dL 70-110 Capillary blood glucose measurement by g lucometer (mass/volume) - 04/05/19 20:49 Capillary blood glucose measurement by glucometer (mas s/volume) 106 mg/dL 70-110 Complete blood count (CBC) with automate d white blood cell (WBC) differential - 04/06/19 03:29 Blood leukocytes automated count (number/volume) 7.6 10*3/uL 4.3-11.0 Blood erythrocytes automated count (number/volume) 3.03 10*6/uL 4.35-5.85 Venous blood hemoglobin measurement (mass/volume) 8.5 g/dL 13.3-17.7 Blood hematocrit (volume fraction) 28 % 40-54 Automated erythrocyte mean corpuscular volume 94 [ foz_us] 80-99 Automated erythrocyte mean corpuscular h emoglobin (mass per erythrocyte) 28 pg 25-34 Automated erythrocyte mean corpuscular h emoglobin concentration measurement (mass/volume) 30 g/dL 32-36 Automated erythrocyte distribution width ratio 16. 9 % 10.0- 14.5 Automated blood platelet count (count/volume) 184 10*3/uL 130-400 Automated blood platelet mean volume measurement 8.7 [foz_us] 7.4-10.4 Automated blood neutrophils/100 leukocytes 68 % 42-75 Automated blood lymphocytes/100 leukocytes 19 % 12-44 Blood monocytes/100 leukocytes 11 % 0-12 Automated blood eosinophils/100 leukocytes 1 % 0-10 Automated blood basophils/100 leukocytes 0 % 0-10 Blood neutrophils automated count (number/volume) 5.2 10*3 1.8-7.8 Blood lymphocytes automated count (number/volume) 1.5 10*3 1.0-4.0 Blood monocytes automated count (number/volume) 0. 8 10*3 0.0-1.0 Automated eosinophil count 0.1 10*3/uL 0 .0-0.3 Automated blood basophil count (count/volume) 0.0 10*3/uL 0.0-0.1 Comprehensive metabolic panel - 04/06/19 03:29 Serum or plasma sodium measurement (moles/volume) 147 mmol/L 135-145 Serum or plasma potassium measurement (moles/volume) 3.7 mmol/L 3.6-5.0 Serum or plasma chloride measurement (moles/volume) 95 mmol/L 98-107 Carbon dioxide 40 mmol/L 21-32 Serum or plasma anion gap determination (moles/volume) 12 mmol/L 5-14 Serum or plasma urea nitrogen measurement (mass/volume ) 19 mg/dL 7-18 Serum or plasma creatinine measurement (mass/volume) 1.14 mg/dL 0.60-1.30 Serum or plasma urea nitrogen/creatinine mass ratio 17 NRG Serum or plasma creatinine measurement w ith calculation of estimated glomerular filtration rate > NRG Serum or plasma glucose measurement (mass/volume) 88 mg/dL 70-105 Serum or plasma calcium measurement (mass/volume) 9.4 mg/dL 8.5-10.1 Serum or plasma total bilirubin measurement (mass/volu me) 0.4 mg/dL 0.1-1.0 Serum or plasma alkaline phosphatase lourdes surement (enzymatic activity/volume) 100 U/L 40-136 Serum or plasma aspartate aminotransfera se measurement (enzymatic activity/volume) 17 U/L 5-34 Serum or plasma alanine aminotransferase measurement (enzymatic activity/volume) 13 U/L 0-55 Serum or plasma protein measurement (mass/volume) 5.9 g/dL 6.4-8.2 Serum or plasma albumin measurement (mass/volume) 2.8 g/dL 3.2-4.5 CALCIUM CORRECTED 10.4 mg/dL 8.5-10.1 Capillary blood glucose measurement by g lucometer (mass/volume) - 04/06/19 05:20 Capillary blood glucose measurement by glucometer (mas s/volume) 86 mg/dL 70-110 Capillary blood glucose measurement by g lucometer (mass/volume) - 04/06/19 10:34 Capillary blood glucose measurement by glucometer (mas s/volume) 122 mg/dL 70-110 Capillary blood glucose measurement by g lucometer (mass/volume) - 04/06/19 16:32 Capillary blood glucose measurement by glucometer (mas s/volume) 106 mg/dL 70-110 Capillary blood glucose measurement by g lucometer (mass/volume) - 04/06/19 21:39 Capillary blood glucose measurement by glucometer (mas s/volume) 151 mg/dL 70-110 Complete blood count (CBC) with automate d white blood cell (WBC) differential - 04/07/19 03:57 Blood leukocytes automated count (number/volume) 8.1 10*3/uL 4.3-11.0 Blood erythrocytes automated count (number/volume) 3.14 10*6/uL 4.35-5.85 Venous blood hemoglobin measurement (mass/volume) 8.8 g/dL 13.3-17.7 Blood hematocrit (volume fraction) 29 % 40-54 Automated erythrocyte mean corpuscular volume 93 [ foz_us] 80-99 Automated erythrocyte mean corpuscular h emoglobin (mass per erythrocyte) 28 pg 25-34 Automated erythrocyte mean corpuscular h emoglobin concentration measurement (mass/volume) 30 g/dL 32-36 Automated erythrocyte distribution width ratio 16. 7 % 10.0- 14.5 Automated blood platelet count (count/volume) 187 10*3/uL 130-400 Automated blood platelet mean volume measurement 9.2 [foz_us] 7.4-10.4 Automated blood neutrophils/100 leukocytes 69 % 42-75 Automated blood lymphocytes/100 leukocytes 20 % 12-44 Blood monocytes/100 leukocytes 9 % 0-12 Automated blood eosinophils/100 leukocytes 2 % 0-10 Automated blood basophils/100 leukocytes 0 % 0-10 Blood neutrophils automated count (number/volume) 5.6 10*3 1.8-7.8 Blood lymphocytes automated count (number/volume) 1.6 10*3 1.0-4.0 Blood monocytes automated count (number/volume) 0. 8 10*3 0.0-1.0 Automated eosinophil count 0.2 10*3/uL 0 .0-0.3 Automated blood basophil count (count/volume) 0.0 10*3/uL 0.0-0.1 Comprehensive metabolic panel - 04/07/19 03:57 Serum or plasma sodium measurement (moles/volume) 145 mmol/L 135-145 Serum or plasma potassium measurement (moles/volume) 4.2 mmol/L 3.6-5.0 Serum or plasma chloride measurement (moles/volume) 95 mmol/L 98-107 Carbon dioxide 40 mmol/L 21-32 Serum or plasma anion gap determination (moles/volume) 10 mmol/L 5-14 Serum or plasma urea nitrogen measurement (mass/volume ) 17 mg/dL 7-18 Serum or plasma creatinine measurement (mass/volume) 1.14 mg/dL 0.60-1.30 Serum or plasma urea nitrogen/creatinine mass ratio 15 NRG Serum or plasma creatinine measurement w ith calculation of estimated glomerular filtration rate > NRG Serum or plasma glucose measurement (mass/volume) 78 mg/dL 70-105 Serum or plasma calcium measurement (mass/volume) 9.4 mg/dL 8.5-10.1 Serum or plasma total bilirubin measurement (mass/volu me) 0.4 mg/dL 0.1-1.0 Serum or plasma alkaline phosphatase lourdes surement (enzymatic activity/volume) 116 U/L 40-136 Serum or plasma aspartate aminotransfera se measurement (enzymatic activity/volume) 18 U/L 5-34 Serum or plasma alanine aminotransferase measurement (enzymatic activity/volume) 14 U/L 0-55 Serum or plasma protein measurement (mass/volume) 6.3 g/dL 6.4-8.2 Serum or plasma albumin measurement (mass/volume) 3.1 g/dL 3.2-4.5 CALCIUM CORRECTED 10.1 mg/dL 8.5-10.1 Capillary blood glucose measurement by g lucometer (mass/volume) - 04/07/19 05:35 Capillary blood glucose measurement by glucometer (mas s/volume) 89 mg/dL 70-110 Capillary blood glucose measurement by g lucometer (mass/volume) - 04/07/19 10:58 Capillary blood glucose measurement by glucometer (mas s/volume) 92 mg/dL 70-110 Complete blood count (CBC) with automate d white blood cell (WBC) differential - 06/22/19 07:45 Blood leukocytes automated count (number/volume) 10.3 10*3/uL 4.3-11.0 Blood erythrocytes automated count (number/volume) 2.97 10*6/uL 4.35-5.85 Venous blood hemoglobin measurement (mass/volume) 8.1 g/dL 13.3-17.7 Blood hematocrit (volume fraction) 27 % 40-54 Automated erythrocyte mean corpuscular volume 91 [ foz_us] 80-99 Automated erythrocyte mean corpuscular h emoglobin (mass per erythrocyte) 27 pg 25-34 Automated erythrocyte mean corpuscular h emoglobin concentration measurement (mass/volume) 30 g/dL 32-36 Automated erythrocyte distribution width ratio 15. 5 % 10.0- 14.5 Automated blood platelet count (count/volume) 230 10*3/uL 130-400 Automated blood platelet mean volume measurement 8.9 [foz_us] 7.4-10.4 Automated blood neutrophils/100 leukocytes 75 % 42-75 Automated blood lymphocytes/100 leukocytes 15 % 12-44 Blood monocytes/100 leukocytes 9 % 0-12 Automated blood eosinophils/100 leukocytes 1 % 0-10 Automated blood basophils/100 leukocytes 0 % 0-10 Blood neutrophils automated count (number/volume) 7.7 10*3 1.8-7.8 Blood lymphocytes automated count (number/volume) 1.6 10*3 1.0-4.0 Blood monocytes automated count (number/volume) 0. 9 10*3 0.0-1.0 Automated eosinophil count 0.1 10*3/uL 0 .0-0.3 Automated blood basophil count (count/volume) 0.0 10*3/uL 0.0-0.1 Blood lactic acid measurement (moles/vol ume) - 06/22/19 07:45 Blood lactic acid measurement (moles/volume) 0.60 mmol/L 0.50-2.00 PT panel in platelet poor plasma by coag ulation assay - 06/22/19 07:45 Prothrombin time (PT) in platelet poor plasma by coagu lation assay 13.6 s 12.2-14.7 INR in platelet poor plasma or blood by coagulation as say 1.0 0.8-1.4 Activated partial thromboplastin time (a PTT) in platelet poor plasma bycoagulation assay - 06/22/19 07:45 Activated partial thromboplastin time (a PTT) in platelet poor plasma bycoagulation assay 38 s 24-35 Comprehensive metabolic panel - 06/22/19 07:45 Serum or plasma sodium measurement (moles/volume) 137 mmol/L 135-145 Serum or plasma potassium measurement (moles/volume) 4.7 mmol/L 3.6-5.0 Serum or plasma chloride measurement (moles/volume) 96 mmol/L 98-107 Carbon dioxide 32 mmol/L 21-32 Serum or plasma anion gap determination (moles/volume) 9 mmol/L 5-14 Serum or plasma urea nitrogen measurement (mass/volume ) 24 mg/dL 7-18 Serum or plasma creatinine measurement (mass/volume) 1.38 mg/dL 0.60-1.30 Serum or plasma urea nitrogen/creatinine mass ratio 17 NRG Serum or plasma creatinine measurement w ith calculation of estimated glomerular filtration rate 52 NRG Serum or plasma glucose measurement (mass/volume) 115 mg/dL 70-105 Serum or plasma calcium measurement (mass/volume) 8.9 mg/dL 8.5-10.1 Serum or plasma total bilirubin measurement (mass/volu me) 0.3 mg/dL 0.1-1.0 Serum or plasma alkaline phosphatase lourdes surement (enzymatic activity/volume) 246 U/L 40-136 Serum or plasma aspartate aminotransfera se measurement (enzymatic activity/volume) 20 U/L 5-34 Serum or plasma alanine aminotransferase measurement (enzymatic activity/volume) 25 U/L 0-55 Serum or plasma protein measurement (mass/volume) 7.4 g/dL 6.4-8.2 Serum or plasma albumin measurement (mass/volume) 3.1 g/dL 3.2-4.5 CALCIUM CORRECTED 9.6 mg/dL 8.5-10.1 Magnesium - 06/22/19 07:45 Magnesium 1.8 mg/dL 1.6-2.4 Serum or plasma troponin i.cardiac measu rement (mass/volume) - 06/22/19 07:45 Serum or plasma troponin i.cardiac measurement (mass/v olume) < ng/mL <0.028 Serum or plasma lithium measurement (mol es/volume) - 06/22/19 07:45 BNP PT 573.6 pg/mL <100.0 PROCALCITONIN (PCT) - 06/22/19 07:45 PROCALCITONIN (PCT) 0.44 ng/mL <0.10 THYROID STIMULATING HORMONE - 06/22/19 0 7:45 THYROID STIMULATING HORMONE 0.87 u[iU]/mL 0.35-4.94 Bacterial blood culture - 06/22/19 07:45 FREE TEXT EXTERNAL NO SUSCEPTIBILITY PERFORM ED, SEE COMMENT NRG QUANTITY OF GROWTH Isolated NRG Bacterial blood culture [id number] NRG Serum or plasma folate measurement (mass /volume) - 06/22/19 07:45 Serum or plasma folate measurement (mass/volume) 1 7.5 % >=4.0 Serum iron and total iron binding capaci ty panel - 06/22/19 07:45 TIBC 242 % 280-380 UIBC 217 % 55-450 Serum or plasma iron measurement (mass/volume) 25 % 40-180 Total iron binding capacity and transferrin saturation measurement 10 % 15-50 Serum or plasma ferritin measurement (mass/volume) 169.8 % 32.0-356.0 VITAMIN B 12 - 06/22/19 07:45 VITAMIN B 12 930 pg/mL 190-1100 [facility] - 06/22/19 07:4 5 Vancomycin susceptibility test by minimum inhibitory c oncentration 1 NRG Ampicillin susceptibility test by minimum inhibitory c oncentration 1 NRG Daptomycin susc JENNY 2 NRG [facility] - 06/22/19 07:4 5 Vancomycin susceptibility test by minimum inhibitory c oncentration 1 NRG Ampicillin susceptibility test by minimum inhibitory c oncentration 1 NRG Daptomycin susc JENNY 4 NRG Arterial blood gas measurement - 9 08:12 Blood pCO2 60 mm[Hg] 35-45 Blood pO2 64 mm[Hg] 79-93 Arterial blood bicarbonate measurement (moles/volume) 35 mmol/L 23-27 Arterial blood base excess by calculation 10.1 mmo l/L -2.5-2.5 Arterial blood oxygen saturation measurement 91 % 94-100 * Inhaled oxygen flow rate 28% BIPAP NR G Arterial blood pH measurement with patient temperature correction 7.39 7.37-7.43 Arterial blood carbon dioxide, total measurement (mole s/volume) 36.9 mmol/L 21.0-31.0 Body site UNK NRG Assessment of wrist artery patency prior to arterial p uncture POSITIVE NRG Setting of ventilation mode NO NR G Measurement of body temperature 37.7 NRG Influenza virus A and B antigen detectio n - 06/22/19 08:18 FLU RESULT NEGATIVE FOR INFLUENZA A AND B ANTIGENS BY IA NRG Complete urinalysis with reflex to cultu re - 06/22/19 09:25 Urine color determination YELLOW NRG Urine clarity determination CLEAR NR G Urine pH measurement by test strip 5 5-9 Specific gravity of urine by test strip 1.010 1.016-1.022 Urine protein assay by test strip, semi-quantitative 3+ NEGATIVE Urine glucose detection by automated test strip NE GATIVE NEGATIVE Erythrocytes detection in urine sediment by light micr oscopy 1+ NEGATIVE Urine ketones detection by automated test strip NE GATIVE NEGATIVE Urine nitrite detection by test strip NEGATIVE NEGATIVE Urine total bilirubin detection by test strip NEGA TIVE NEGATIVE Urine urobilinogen measurement by automated test strip (mass/volume) NORMAL NORMAL Urine leukocyte esterase detection by dipstick NEG ATIVE NEGATIVE Automated urine sediment erythrocyte cou nt by microscopy (number/high power field) [HPF] NRG Automated urine sediment leukocyte count by microscopy (number/high power field) NONE NRG Bacteria detection in urine sediment by light microsco py TRACE NRG Squamous epithelial cells detection in u rine sediment by light microscopy 0-2 NRG Crystals detection in urine sediment by light microsco py NONE NRG Casts detection in urine sediment by light microscopy PRESENT NRG Mucus detection in urine sediment by light microscopy NEGATIVE NRG Complete urinalysis with reflex to culture NO NRG Hyaline casts detection in urine sediment by light jenny roscopy 2-5 NRG Bacterial urine culture - 06/22/19 09:25 Bacterial urine culture NG NRG Bacterial blood culture - 06/22/19 09:45 QUANTITY OF GROWTH Isolated NRG Bacterial blood culture [id number] NRG Sputum Gram stain - 06/22/19 09:45 Sputum Gram stain MIXED BACTERIAL ELISSA NRG Bacterial sputum culture - 06/22/19 09:4 5 FREE TEXT EXTERNAL SUSCEPTIBILITY REPORTED 06/25 0 9:30 NRG QUANTITY OF GROWTH Moderate NRG Bacterial sputum culture [id number] NRG Complete blood count (CBC) with automate d white blood cell (WBC) differential - 06/23/19 06:10 Blood leukocytes automated count (number/volume) 7.3 10*3/uL 4.3-11.0 Blood erythrocytes automated count (number/volume) 2.74 10*6/uL 4.35-5.85 Venous blood hemoglobin measurement (mass/volume) 7.4 g/dL 13.3-17.7 Blood hematocrit (volume fraction) 25 % 40-54 Automated erythrocyte mean corpuscular volume 91 [ foz_us] 80-99 Automated erythrocyte mean corpuscular h emoglobin (mass per erythrocyte) 27 pg 25-34 Automated erythrocyte mean corpuscular h emoglobin concentration measurement (mass/volume) 30 g/dL 32-36 Automated erythrocyte distribution width ratio 15. 5 % 10.0- 14.5 Automated blood platelet count (count/volume) 218 10*3/uL 130-400 Automated blood platelet mean volume measurement 8.9 [foz_us] 7.4-10.4 Automated blood neutrophils/100 leukocytes 71 % 42-75 Automated blood lymphocytes/100 leukocytes 19 % 12-44 Blood monocytes/100 leukocytes 9 % 0-12 Automated blood eosinophils/100 leukocytes 1 % 0-10 Automated blood basophils/100 leukocytes 0 % 0-10 Blood neutrophils automated count (number/volume) 5.2 10*3 1.8-7.8 Blood lymphocytes automated count (number/volume) 1.4 10*3 1.0-4.0 Blood monocytes automated count (number/volume) 0. 7 10*3 0.0-1.0 Automated eosinophil count 0.1 10*3/uL 0 .0-0.3 Automated blood basophil count (count/volume) 0.0 10*3/uL 0.0-0.1 Comprehensive metabolic panel - 06/23/19 06:10 Serum or plasma sodium measurement (moles/volume) 139 mmol/L 135-145 Serum or plasma potassium measurement (moles/volume) 4.4 mmol/L 3.6-5.0 Serum or plasma chloride measurement (moles/volume) 96 mmol/L 98-107 Carbon dioxide 34 mmol/L 21-32 Serum or plasma anion gap determination (moles/volume) 9 mmol/L 5-14 Serum or plasma urea nitrogen measurement (mass/volume ) 21 mg/dL 7-18 Serum or plasma creatinine measurement (mass/volume) 1.18 mg/dL 0.60-1.30 Serum or plasma urea nitrogen/creatinine mass ratio 18 NRG Serum or plasma creatinine measurement w ith calculation of estimated glomerular filtration rate > NRG Serum or plasma glucose measurement (mass/volume) 84 mg/dL 70-105 Serum or plasma calcium measurement (mass/volume) 9.3 mg/dL 8.5-10.1 Serum or plasma total bilirubin measurement (mass/volu me) 0.3 mg/dL 0.1-1.0 Serum or plasma alkaline phosphatase lourdes surement (enzymatic activity/volume) 190 U/L 40-136 Serum or plasma aspartate aminotransfera se measurement (enzymatic activity/volume) 18 U/L 5-34 Serum or plasma alanine aminotransferase measurement (enzymatic activity/volume) 21 U/L 0-55 Serum or plasma protein measurement (mass/volume) 7.0 g/dL 6.4-8.2 Serum or plasma albumin measurement (mass/volume) 2.9 g/dL 3.2-4.5 CALCIUM CORRECTED 10.2 mg/dL 8.5-10.1 Lipid 1996 panel - 06/23/19 06:10 Serum or plasma triglyceride measurement (mass/volume) 102 mg/dL <150 Serum or plasma cholesterol measurement (mass/volume) 120 mg/dL < 200 Serum or plasma cholesterol in HDL measurement (mass/v olume) 33 mg/dL 40-60 Cholesterol in LDL [mass/volume] in serum or plasma by direct assay 48 mg/dL 1-129 Serum or plasma cholesterol in VLDL measurement (mass/ volume) 20 mg/dL 5-40 RED CELLS LEUKO REDUCED AS1 - 06/23/19 0 8:20 RED CELLS LEUKO REDUCED AS1 T RANSFUSED 06/25/[id number] NR Blood type T Indirect antibody screen [facility] 06/23/19 08:20 WRISTBAND NUMBER [id number] NRG ABO+Rh group AP NRG Blood group antibody screen NEGATIVE NR G Whole blood hemoglobin and hematocrit [facility] - 06/24/19 05:05 Venous blood hemoglobin measurement (mass/volume) 7.0 g/dL 13.3-17.7 Blood hematocrit (volume fraction) 23 % 40-54 Whole blood basic metabolic panel - 06/05 09/22 05:05 Serum or plasma sodium measurement (moles/volume) 138 mmol/L 135-145 Serum or plasma potassium measurement (moles/volume) 4.5 mmol/L 3.6-5.0 Serum or plasma chloride measurement (moles/volume) 95 mmol/L 98-107 Carbon dioxide 35 mmol/L 21-32 Serum or plasma anion gap determination (moles/volume) 8 mmol/L 5-14 Serum or plasma urea nitrogen measurement (mass/volume ) 23 mg/dL 7-18 Serum or plasma creatinine measurement (mass/volume) 1.39 mg/dL 0.60-1.30 Serum or plasma urea nitrogen/creatinine mass ratio 17 NRG Serum or plasma creatinine measurement w ith calculation of estimated glomerular filtration rate 51 NRG Serum or plasma glucose measurement (mass/volume) 87 mg/dL 70-105 Serum or plasma calcium measurement (mass/volume) 8.7 mg/dL 8.5-10.1 PROCALCITONIN (PCT) - 06/24/19 05:05 PROCALCITONIN (PCT) 0.35 ng/mL <0.10 Serum or plasma lithium measurement (mol es/volume) - 06/24/19 05:05 BNP PT 142.4 pg/mL <100.0 Vancomycin trough - 06/24/19 13:16 Vancomycin trough 24.0 ug/mL 10.0-20.0 Complete blood count (CBC) with automate d white blood cell (WBC) differential - 06/25/19 06:28 Blood leukocytes automated count (number/volume) 8.3 10*3/uL 4.3-11.0 Blood erythrocytes automated count (number/volume) 2.87 10*6/uL 4.35-5.85 Venous blood hemoglobin measurement (mass/volume) 7.8 g/dL 13.3-17.7 Blood hematocrit (volume fraction) 26 % 40-54 Automated erythrocyte mean corpuscular volume 90 [ foz_us] 80-99 Automated erythrocyte mean corpuscular h emoglobin (mass per erythrocyte) 27 pg 25-34 Automated erythrocyte mean corpuscular h emoglobin concentration measurement (mass/volume) 30 g/dL 32-36 Automated erythrocyte distribution width ratio 15. 3 % 10.0- 14.5 Automated blood platelet count (count/volume) 252 10*3/uL 130-400 Automated blood platelet mean volume measurement 9.0 [foz_us] 7.4-10.4 Automated blood neutrophils/100 leukocytes 73 % 42-75 Automated blood lymphocytes/100 leukocytes 17 % 12-44 Blood monocytes/100 leukocytes 9 % 0-12 Automated blood eosinophils/100 leukocytes 1 % 0-10 Automated blood basophils/100 leukocytes 0 % 0-10 Blood neutrophils automated count (number/volume) 6.0 10*3 1.8-7.8 Blood lymphocytes automated count (number/volume) 1.4 10*3 1.0-4.0 Blood monocytes automated count (number/volume) 0. 7 10*3 0.0-1.0 Automated eosinophil count 0.1 10*3/uL 0 .0-0.3 Automated blood basophil count (count/volume) 0.0 10*3/uL 0.0-0.1 Whole blood basic metabolic panel - 06/05 10/23 06:28 Serum or plasma sodium measurement (moles/volume) 139 mmol/L 135-145 Serum or plasma potassium measurement (moles/volume) 4.5 mmol/L 3.6-5.0 Serum or plasma chloride measurement (moles/volume) 92 mmol/L 98-107 Carbon dioxide 35 mmol/L 21-32 Serum or plasma anion gap determination (moles/volume) 12 mmol/L 5-14 Serum or plasma urea nitrogen measurement (mass/volume ) 19 mg/dL 7-18 Serum or plasma creatinine measurement (mass/volume) 1.30 mg/dL 0.60-1.30 Serum or plasma urea nitrogen/creatinine mass ratio 15 NRG Serum or plasma creatinine measurement w ith calculation of estimated glomerular filtration rate 56 NRG Serum or plasma glucose measurement (mass/volume) 87 mg/dL 70-105 Serum or plasma calcium measurement (mass/volume) 9.3 mg/dL 8.5-10.1 Vancomycin trough - 06/25/19 06:28 Vancomycin trough 13.9 ug/mL 10.0-20.0 OCCULT BLOOD STOOL - 06/25/19 14:50 Stool gastrointestinal hemoglobin detection POSITI VE NEGATIVE Complete blood count (CBC) with automate d white blood cell (WBC) differential - 06/26/19 05:15 Blood leukocytes automated count (number/volume) 8.3 10*3/uL 4.3-11.0 Blood erythrocytes automated count (number/volume) 3.05 10*6/uL 4.35-5.85 Venous blood hemoglobin measurement (mass/volume) 8.4 g/dL 13.3-17.7 Blood hematocrit (volume fraction) 28 % 40-54 Automated erythrocyte mean corpuscular volume 91 [ foz_us] 80-99 Automated erythrocyte mean corpuscular h emoglobin (mass per erythrocyte) 28 pg 25-34 Automated erythrocyte mean corpuscular h emoglobin concentration measurement (mass/volume) 30 g/dL 32-36 Automated erythrocyte distribution width ratio 15. 5 % 10.0- 14.5 Automated blood platelet count (count/volume) 217 10*3/uL 130-400 Automated blood platelet mean volume measurement 9.1 [foz_us] 7.4-10.4 Automated blood neutrophils/100 leukocytes 68 % 42-75 Automated blood lymphocytes/100 leukocytes 19 % 12-44 Blood monocytes/100 leukocytes 11 % 0-12 Automated blood eosinophils/100 leukocytes 2 % 0-10 Automated blood basophils/100 leukocytes 0 % 0-10 Blood neutrophils automated count (number/volume) 5.7 10*3 1.8-7.8 Blood lymphocytes automated count (number/volume) 1.6 10*3 1.0-4.0 Blood monocytes automated count (number/volume) 0. 9 10*3 0.0-1.0 Automated eosinophil count 0.1 10*3/uL 0 .0-0.3 Automated blood basophil count (count/volume) 0.0 10*3/uL 0.0-0.1 Comprehensive metabolic panel - 06/26/19 05:15 Serum or plasma sodium measurement (moles/volume) 138 mmol/L 135-145 Serum or plasma potassium measurement (moles/volume) 4.6 mmol/L 3.6-5.0 Serum or plasma chloride measurement (moles/volume) 94 mmol/L 98-107 Carbon dioxide 36 mmol/L 21-32 Serum or plasma anion gap determination (moles/volume) 8 mmol/L 5-14 Serum or plasma urea nitrogen measurement (mass/volume ) 21 mg/dL 7-18 Serum or plasma creatinine measurement (mass/volume) 1.42 mg/dL 0.60-1.30 Serum or plasma urea nitrogen/creatinine mass ratio 15 NRG Serum or plasma creatinine measurement w ith calculation of estimated glomerular filtration rate 50 NRG Serum or plasma glucose measurement (mass/volume) 90 mg/dL 70-105 Serum or plasma calcium measurement (mass/volume) 8.8 mg/dL 8.5-10.1 Serum or plasma total bilirubin measurement (mass/volu me) 0.4 mg/dL 0.1-1.0 Serum or plasma alkaline phosphatase lourdes surement (enzymatic activity/volume) 186 U/L 40-136 Serum or plasma aspartate aminotransfera se measurement (enzymatic activity/volume) 17 U/L 5-34 Serum or plasma alanine aminotransferase measurement (enzymatic activity/volume) 19 U/L 0-55 Serum or plasma protein measurement (mass/volume) 6.8 g/dL 6.4-8.2 Serum or plasma albumin measurement (mass/volume) 2.8 g/dL 3.2-4.5 CALCIUM CORRECTED 9.8 mg/dL 8.5-10.1 RED CELLS LEUKO REDUCED AS1 - 06/26/19 0 9:56 RED CELLS LEUKO REDUCED AS1 T RANSFUSED 06/27/19 1625 NRG Blood type T Indirect antibody screen [facility] - 06/26/19 09:56 WRISTBAND NUMBER [id number] NRG ABO+Rh group AP NRG Blood group antibody screen NEGATIVE NR G Whole blood hemoglobin and hematocrit [facility] - 06/26/19 17:41 Venous blood hemoglobin measurement (mass/volume) 8.9 g/dL 13.3-17.7 Blood hematocrit (volume fraction) 29 % 40-54 Complete blood count (CBC) with automate d white blood cell (WBC) differential - 06/27/19 06:29 Blood leukocytes automated count (number/volume) 8.1 10*3/uL 4.3-11.0 Blood erythrocytes automated count (number/volume) 3.45 10*6/uL 4.35-5.85 Venous blood hemoglobin measurement (mass/volume) 9.4 g/dL 13.3-17.7 Blood hematocrit (volume fraction) 31 % 40-54 Automated erythrocyte mean corpuscular volume 91 [ foz_us] 80-99 Automated erythrocyte mean corpuscular h emoglobin (mass per erythrocyte) 27 pg 25-34 Automated erythrocyte mean corpuscular h emoglobin concentration measurement (mass/volume) 30 g/dL 32-36 Automated erythrocyte distribution width ratio 15. 9 % 10.0- 14.5 Automated blood platelet count (count/volume) 224 10*3/uL 130-400 Automated blood platelet mean volume measurement 9.0 [foz_us] 7.4-10.4 Automated blood neutrophils/100 leukocytes 73 % 42-75 Automated blood lymphocytes/100 leukocytes 14 % 12-44 Blood monocytes/100 leukocytes 11 % 0-12 Automated blood eosinophils/100 leukocytes 2 % 0-10 Automated blood basophils/100 leukocytes 0 % 0-10 Blood neutrophils automated count (number/volume) 5.9 10*3 1.8-7.8 Blood lymphocytes automated count (number/volume) 1.2 10*3 1.0-4.0 Blood monocytes automated count (number/volume) 0. 9 10*3 0.0-1.0 Automated eosinophil count 0.1 10*3/uL 0 .0-0.3 Automated blood basophil count (count/volume) 0.0 10*3/uL 0.0-0.1 Comprehensive metabolic panel - 06/27/19 06:29 Serum or plasma sodium measurement (moles/volume) 139 mmol/L 135-145 Serum or plasma potassium measurement (moles/volume) 4.9 mmol/L 3.6-5.0 Serum or plasma chloride measurement (moles/volume) 95 mmol/L 98-107 Carbon dioxide 33 mmol/L 21-32 Serum or plasma anion gap determination (moles/volume) 11 mmol/L 5-14 Serum or plasma urea nitrogen measurement (mass/volume ) 23 mg/dL 7-18 Serum or plasma creatinine measurement (mass/volume) 1.46 mg/dL 0.60-1.30 Serum or plasma urea nitrogen/creatinine mass ratio 16 NRG Serum or plasma creatinine measurement w ith calculation of estimated glomerular filtration rate 49 NRG Serum or plasma glucose measurement (mass/volume) 81 mg/dL 70-105 Serum or plasma calcium measurement (mass/volume) 9.4 mg/dL 8.5-10.1 Serum or plasma total bilirubin measurement (mass/volu me) 0.2 mg/dL 0.1-1.0 Serum or plasma alkaline phosphatase lourdes surement (enzymatic activity/volume) 158 U/L 40-136 Serum or plasma aspartate aminotransfera se measurement (enzymatic activity/volume) 15 U/L 5-34 Serum or plasma alanine aminotransferase measurement (enzymatic activity/volume) 15 U/L 0-55 Serum or plasma protein measurement (mass/volume) 7.4 g/dL 6.4-8.2 Serum or plasma albumin measurement (mass/volume) 2.9 g/dL 3.2-4.5 CALCIUM CORRECTED 10.3 mg/dL 8.5-10.1 Whole blood basic metabolic panel - 06/05 12/21 08:15 Serum or plasma sodium measurement (moles/volume) 137 mmol/L 135-145 Serum or plasma potassium measurement (moles/volume) 4.9 mmol/L 3.6-5.0 Serum or plasma chloride measurement (moles/volume) 93 mmol/L 98-107 Carbon dioxide 33 mmol/L 21-32 Serum or plasma anion gap determination (moles/volume) 11 mmol/L 5-14 Serum or plasma urea nitrogen measurement (mass/volume ) 23 mg/dL 7-18 Serum or plasma creatinine measurement (mass/volume) 1.46 mg/dL 0.60-1.30 Serum or plasma urea nitrogen/creatinine mass ratio 16 NRG Serum or plasma creatinine measurement w ith calculation of estimated glomerular filtration rate 49 NRG Serum or plasma glucose measurement (mass/volume) 88 mg/dL 70-105 Serum or plasma calcium measurement (mass/volume) 9.4 mg/dL 8.5-10.1 Vancomycin trough - 06/27/19 08:15 Vancomycin trough 14.1 ug/mL 10.0-20.0 Automated blood complete blood count ([facility]) panel - 06/28/19 05:15 Blood leukocytes automated count (number/volume) 6.5 10*3/uL 4.3-11.0 Blood erythrocytes automated count (number/volume) 3.40 10*6/uL 4.35-5.85 Venous blood hemoglobin measurement (mass/volume) 9.4 g/dL 13.3-17.7 Blood hematocrit (volume fraction) 31 % 40-54 Automated erythrocyte mean corpuscular volume 90 [ foz_us] 80-99 Automated erythrocyte mean corpuscular h emoglobin (mass per erythrocyte) 28 pg 25-34 Automated erythrocyte mean corpuscular h emoglobin concentration measurement (mass/volume) 31 g/dL 32-36 Automated erythrocyte distribution width ratio 15. 6 % 10.0- 14.5 Automated blood platelet count (count/volume) 200 10*3/uL 130-400 Automated blood platelet mean volume measurement 9.0 [foz_us] 7.4-10.4 Automated blood complete blood count ( [employer]) panel - 06/29/19 05:04 Blood leukocytes automated count (number/volume) 7.1 10*3/uL 4.3-11.0 Blood erythrocytes automated count (number/volume) 3.40 10*6/uL 4.35-5.85 Venous blood hemoglobin measurement (mass/volume) 9.3 g/dL 13.3-17.7 Blood hematocrit (volume fraction) 31 % 40-54 Automated erythrocyte mean corpuscular volume 92 [ foz_us] 80-99 Automated erythrocyte mean corpuscular h emoglobin (mass per erythrocyte) 27 pg 25-34 Automated erythrocyte mean corpuscular h emoglobin concentration measurement (mass/volume) 30 g/dL 32-36 Automated erythrocyte distribution width ratio 15. 8 % 10.0- 14.5 Automated blood platelet count (count/volume) 214 10*3/uL 130-400 Automated blood platelet mean volume measurement 8.6 [foz_us] 7.4-10.4 Whole blood basic metabolic panel - 06/05 02/20 05:04 Serum or plasma sodium measurement (moles/volume) 142 mmol/L 135-145 Serum or plasma potassium measurement (moles/volume) 4.4 mmol/L 3.6-5.0 Serum or plasma chloride measurement (moles/volume) 98 mmol/L 98-107 Carbon dioxide 34 mmol/L 21-32 Serum or plasma anion gap determination (moles/volume) 10 mmol/L 5-14 Serum or plasma urea nitrogen measurement (mass/volume ) 20 mg/dL 7-18 Serum or plasma creatinine measurement (mass/volume) 1.30 mg/dL 0.60-1.30 Serum or plasma urea nitrogen/creatinine mass ratio 15 NRG Serum or plasma creatinine measurement w ith calculation of estimated glomerular filtration rate 56 NRG Serum or plasma glucose measurement (mass/volume) 103 mg/dL 70-105 Serum or plasma calcium measurement (mass/volume) 9.3 mg/dL 8.5-10.1 Automated blood complete blood count (he mogram) panel - 06/30/19 05:05 Blood leukocytes automated count (number/volume) 7.6 10*3/uL 4.3-11.0 Blood erythrocytes automated count (number/volume) 3.35 10*6/uL 4.35-5.85 Venous blood hemoglobin measurement (mass/volume) 9.2 g/dL 13.3-17.7 Blood hematocrit (volume fraction) 31 % 40-54 Automated erythrocyte mean corpuscular volume 93 [ foz_us] 80-99 Automated erythrocyte mean corpuscular h emoglobin (mass per erythrocyte) 28 pg 25-34 Automated erythrocyte mean corpuscular h emoglobin concentration measurement (mass/volume) 30 g/dL 32-36 Automated erythrocyte distribution width ratio 15. 4 % 10.0- 14.5 Automated blood platelet count (count/volume) 214 10*3/uL 130-400 Automated blood platelet mean volume measurement 9.1 [foz_us] 7.4-10.4 Whole blood basic metabolic panel - 06/05 03/22 05:05 Serum or plasma sodium measurement (moles/volume) 138 mmol/L 135-145 Serum or plasma potassium measurement (moles/volume) 4.4 mmol/L 3.6-5.0 Serum or plasma chloride measurement (moles/volume) 97 mmol/L 98-107 Carbon dioxide 32 mmol/L 21-32 Serum or plasma anion gap determination (moles/volume) 9 mmol/L 5-14 Serum or plasma urea nitrogen measurement (mass/volume ) 19 mg/dL 7-18 Serum or plasma creatinine measurement (mass/volume) 1.22 mg/dL 0.60-1.30 Serum or plasma urea nitrogen/creatinine mass ratio 16 NRG Serum or plasma creatinine measurement w ith calculation of estimated glomerular filtration rate 60 NRG Serum or plasma glucose measurement (mass/volume) 91 mg/dL 70-105 Serum or plasma calcium measurement (mass/volume) 9.2 mg/dL 8.5-10.1 Complete blood count (CBC) with automate d white blood cell (WBC) differential - 07/01/19 09:30 Blood leukocytes automated count (number/volume) 7.7 10*3/uL 4.3-11.0 Blood erythrocytes automated count (number/volume) 3.56 10*6/uL 4.35-5.85 Venous blood hemoglobin measurement (mass/volume) 9.9 g/dL 13.3-17.7 Blood hematocrit (volume fraction) 33 % 40-54 Automated erythrocyte mean corpuscular volume 92 [ foz_us] 80-99 Automated erythrocyte mean corpuscular h emoglobin (mass per erythrocyte) 28 pg 25-34 Automated erythrocyte mean corpuscular h emoglobin concentration measurement (mass/volume) 30 g/dL 32-36 Automated erythrocyte distribution width ratio 15. 5 % 10.0- 14.5 Automated blood platelet count (count/volume) 218 10*3/uL 130-400 Automated blood platelet mean volume measurement 8.7 [foz_us] 7.4-10.4 Automated blood neutrophils/100 leukocytes 77 % 42-75 Automated blood lymphocytes/100 leukocytes 13 % 12-44 Blood monocytes/100 leukocytes 8 % 0-12 Automated blood eosinophils/100 leukocytes 1 % 0-10 Automated blood basophils/100 leukocytes 0 % 0-10 Blood neutrophils automated count (number/volume) 5.9 10*3 1.8-7.8 Blood lymphocytes automated count (number/volume) 1.0 10*3 1.0-4.0 Blood monocytes automated count (number/volume) 0. 6 10*3 0.0-1.0 Automated eosinophil count 0.1 10*3/uL 0 .0-0.3 Automated blood basophil count (count/volume) 0.0 10*3/uL 0.0-0.1 Whole blood basic metabolic panel - 06/05 04/22 09:30 Serum or plasma sodium measurement (moles/volume) 138 mmol/L 135-145 Serum or plasma potassium measurement (moles/volume) 4.5 mmol/L 3.6-5.0 Serum or plasma chloride measurement (moles/volume) 96 mmol/L 98-107 Serum or plasma anion gap determination (moles/volume) 8 mmol/L 5-14 Serum or plasma urea nitrogen measurement (mass/volume ) 17 mg/dL 7-18 Serum or plasma creatinine measurement (mass/volume) 1.30 mg/dL 0.60-1.30 Serum or plasma urea nitrogen/creatinine mass ratio 13 NRG Serum or plasma creatinine measurement w ith calculation of estimated glomerular filtration rate 56 NRG Serum or plasma glucose measurement (mass/volume) 160 mg/dL 70-105 Serum or plasma calcium measurement (mass/volume) 9.5 mg/dL 8.5-10.1 Bacterial blood culture - 07/01/19 16:48 Bacterial blood culture NG NRG Bacterial blood culture - 07/01/19 16:48 Bacterial blood culture NG NRG Serum or plasma lithium measurement (mol es/volume) - 07/01/19 16:52 BNP PT 200.9 pg/mL <100.0 Bacterial blood culture - 07/01/19 16:55 Bacterial blood culture NG NRG Methicillin resistant Staphylococcus aur eus (MRSA) screening culture - 07/01/19 18:40 Methicillin resistant Staphylococcus aureus (MRSA) scr eening culture NEG NRG Complete blood count (CBC) with automate d white blood cell (WBC) differential - 07/02/19 05:30 Blood leukocytes automated count (number/volume) 6.8 10*3/uL 4.3-11.0 Blood erythrocytes automated count (number/volume) 3.58 10*6/uL 4.35-5.85 Venous blood hemoglobin measurement (mass/volume) 9.8 g/dL 13.3-17.7 Blood hematocrit (volume fraction) 33 % 40-54 Automated erythrocyte mean corpuscular volume 92 [ foz_us] 80-99 Automated erythrocyte mean corpuscular h emoglobin (mass per erythrocyte) 27 pg 25-34 Automated erythrocyte mean corpuscular h emoglobin concentration measurement (mass/volume) 30 g/dL 32-36 Automated erythrocyte distribution width ratio 15. 4 % 10.0- 14.5 Automated blood platelet count (count/volume) 219 10*3/uL 130-400 Automated blood platelet mean volume measurement 9.1 [foz_us] 7.4-10.4 Automated blood neutrophils/100 leukocytes 68 % 42-75 Automated blood lymphocytes/100 leukocytes 20 % 12-44 Blood monocytes/100 leukocytes 10 % 0-12 Automated blood eosinophils/100 leukocytes 2 % 0-10 Automated blood basophils/100 leukocytes 0 % 0-10 Blood neutrophils automated count (number/volume) 4.7 10*3 1.8-7.8 Blood lymphocytes automated count (number/volume) 1.4 10*3 1.0-4.0 Blood monocytes automated count (number/volume) 0. 7 10*3 0.0-1.0 Automated eosinophil count 0.1 10*3/uL 0 .0-0.3 Automated blood basophil count (count/volume) 0.0 10*3/uL 0.0-0.1 Whole blood basic metabolic panel - 06/05 05/23 05:30 Serum or plasma sodium measurement (moles/volume) 138 mmol/L 135-145 Serum or plasma potassium measurement (moles/volume) 4.4 mmol/L 3.6-5.0 Serum or plasma chloride measurement (moles/volume) 94 mmol/L 98-107 Carbon dioxide 33 mmol/L 21-32 Serum or plasma anion gap determination (moles/volume) 11 mmol/L 5-14 Serum or plasma urea nitrogen measurement (mass/volume ) 18 mg/dL 7-18 Serum or plasma creatinine measurement (mass/volume) 1.23 mg/dL 0.60-1.30 Serum or plasma urea nitrogen/creatinine mass ratio 15 NRG Serum or plasma creatinine measurement w ith calculation of estimated glomerular filtration rate 59 NRG Serum or plasma glucose measurement (mass/volume) 84 mg/dL 70-105 Serum or plasma calcium measurement (mass/volume) 9.3 mg/dL 8.5-10.1 Automated blood complete blood count (he mogram) panel - 07/03/19 05:26 Blood leukocytes automated count (number/volume) 6.0 10*3/uL 4.3-11.0 Blood erythrocytes automated count (number/volume) 3.46 10*6/uL 4.35-5.85 Venous blood hemoglobin measurement (mass/volume) 9.6 g/dL 13.3-17.7 Blood hematocrit (volume fraction) 31 % 40-54 Automated erythrocyte mean corpuscular volume 91 [ foz_us] 80-99 Automated erythrocyte mean corpuscular h emoglobin (mass per erythrocyte) 28 pg 25-34 Automated erythrocyte mean corpuscular h emoglobin concentration measurement (mass/volume) 31 g/dL 32-36 Automated erythrocyte distribution width ratio 15. 4 % 10.0- 14.5 Automated blood platelet count (count/volume) 212 10*3/uL 130-400 Automated blood platelet mean volume measurement 9.0 [foz_us] 7.4-10.4 Whole blood basic metabolic panel - 06/06 05:26 Serum or plasma sodium measurement (moles/volume) 140 mmol/L 135-145 Serum or plasma potassium measurement (moles/volume) 4.2 mmol/L 3.6-5.0 Serum or plasma chloride measurement (moles/volume) 95 mmol/L 98-107 Carbon dioxide 36 mmol/L 21-32 Serum or plasma anion gap determination (moles/volume) 9 mmol/L 5-14 Serum or plasma urea nitrogen measurement (mass/volume ) 14 mg/dL 7-18 Serum or plasma creatinine measurement (mass/volume) 1.08 mg/dL 0.60-1.30 Serum or plasma urea nitrogen/creatinine mass ratio 13 NRG Serum or plasma creatinine measurement w ith calculation of estimated glomerular filtration rate > NRG Serum or plasma glucose measurement (mass/volume) 82 mg/dL 70-105 Serum or plasma calcium measurement (mass/volume) 9.3 mg/dL 8.5-10.1 Sputum Gram stain - 07/03/19 12:30 Sputum Gram stain NO BACTERIA SEEN NRG Bacteria identification in bronchial spe cimen by aerobe culture - 07/03/19 12:30 Bacteria identification in bronchial specimen by aerob e culture NG NRG Fungus culture - 07/03/19 12:30 Mycobacterium species detection by organ ism specific culture - 07/03/19 12:30 Sputum Gram stain - 07/03/19 12:35 Sputum Gram stain MIXED BACTERIAL ELISSA NRG Bacteria identification in bronchial spe cimen by aerobe culture - 07/03/19 12:35 Bacteria identification in bronchial specimen by aerob e culture NG NRG Fungus culture - 07/03/19 12:35 Mycobacterium species detection by organ ism specific culture - 07/03/19 12:35 Complete blood count (CBC) with automate d white blood cell (WBC) differential - 07/04/19 08:53 Blood leukocytes automated count (number/volume) 7.7 10*3/uL 4.3-11.0 Blood erythrocytes automated count (number/volume) 3.69 10*6/uL 4.35-5.85 Venous blood hemoglobin measurement (mass/volume) 10.2 g/dL 13.3-17.7 Blood hematocrit (volume fraction) 34 % 40-54 Automated erythrocyte mean corpuscular volume 92 [ foz_us] 80-99 Automated erythrocyte mean corpuscular h emoglobin (mass per erythrocyte) 28 pg 25-34 Automated erythrocyte mean corpuscular h emoglobin concentration measurement (mass/volume) 30 g/dL 32-36 Automated erythrocyte distribution width ratio 15. 5 % 10.0- 14.5 Automated blood platelet count (count/volume) 224 10*3/uL 130-400 Automated blood platelet mean volume measurement 9.1 [foz_us] 7.4-10.4 Automated blood neutrophils/100 leukocytes 75 % 42-75 Automated blood lymphocytes/100 leukocytes 16 % 12-44 Blood monocytes/100 leukocytes 8 % 0-12 Automated blood eosinophils/100 leukocytes 1 % 0-10 Automated blood basophils/100 leukocytes 0 % 0-10 Blood neutrophils automated count (number/volume) 5.8 10*3 1.8-7.8 Blood lymphocytes automated count (number/volume) 1.2 10*3 1.0-4.0 Blood monocytes automated count (number/volume) 0. 6 10*3 0.0-1.0 Automated eosinophil count 0.1 10*3/uL 0 .0-0.3 Automated blood basophil count (count/volume) 0.0 10*3/uL 0.0-0.1 Comprehensive metabolic panel - 07/04/19 08:53 Serum or plasma sodium measurement (moles/volume) 138 mmol/L 135-145 Serum or plasma potassium measurement (moles/volume) 4.2 mmol/L 3.6-5.0 Serum or plasma chloride measurement (moles/volume) 93 mmol/L 98-107 Carbon dioxide 36 mmol/L 21-32 Serum or plasma anion gap determination (moles/volume) 9 mmol/L 5-14 Serum or plasma urea nitrogen measurement (mass/volume ) 15 mg/dL 7-18 Serum or plasma creatinine measurement (mass/volume) 1.18 mg/dL 0.60-1.30 Serum or plasma urea nitrogen/creatinine mass ratio 13 NRG Serum or plasma creatinine measurement w ith calculation of estimated glomerular filtration rate > NRG Serum or plasma glucose measurement (mass/volume) 149 mg/dL 70-105 Serum or plasma calcium measurement (mass/volume) 9.2 mg/dL 8.5-10.1 Serum or plasma total bilirubin measurement (mass/volu me) 0.4 mg/dL 0.1-1.0 Serum or plasma alkaline phosphatase lourdes surement (enzymatic activity/volume) 120 U/L 40-136 Serum or plasma aspartate aminotransfera se measurement (enzymatic activity/volume) 16 U/L 5-34 Serum or plasma alanine aminotransferase measurement (enzymatic activity/volume) 16 U/L 0-55 Serum or plasma protein measurement (mass/volume) 7.6 g/dL 6.4-8.2 Serum or plasma albumin measurement (mass/volume) 3.2 g/dL 3.2-4.5 CALCIUM CORRECTED 9.8 mg/dL 8.5-10.1 Arterial blood gas measurement - 9 21:33 Blood pCO2 88 mm[Hg] 35-45 Blood pO2 70 mm[Hg] 79-93 Arterial blood bicarbonate measurement (moles/volume) 39 mmol/L 23-27 Arterial blood base excess by calculation 12.0 mmo l/L -2.5-2.5 Arterial blood oxygen saturation measurement 93 % 94-100 * Inhaled oxygen flow rate 10L NRG Arterial blood pH measurement with patient temperature correction 7.27 7.37-7.43 Arterial blood carbon dioxide, total measurement (mole s/volume) 41.8 mmol/L 21.0-31.0 Body site LEFT WRIST NRG Assessment of wrist artery patency prior to arterial p uncture YES-POS NRG Setting of ventilation mode NO NR G Measurement of body temperature 36.7 NRG Complete blood count (CBC) with automate d white blood cell (WBC) differential - 07/07/19 21:40 Blood leukocytes automated count (number/volume) 7.6 10*3/uL 4.3-11.0 Blood erythrocytes automated count (number/volume) 3.65 10*6/uL 4.35-5.85 Venous blood hemoglobin measurement (mass/volume) 10.2 g/dL 13.3-17.7 Blood hematocrit (volume fraction) 35 % 40-54 Automated erythrocyte mean corpuscular volume 95 [ foz_us] 80-99 Automated erythrocyte mean corpuscular h emoglobin (mass per erythrocyte) 28 pg 25-34 Automated erythrocyte mean corpuscular h emoglobin concentration measurement (mass/volume) 29 g/dL 32-36 Automated erythrocyte distribution width ratio 15. 8 % 10.0- 14.5 Automated blood platelet count (count/volume) 193 10*3/uL 130-400 Automated blood platelet mean volume measurement 9.2 [foz_us] 7.4-10.4 Automated blood neutrophils/100 leukocytes 76 % 42-75 Automated blood lymphocytes/100 leukocytes 14 % 12-44 Blood monocytes/100 leukocytes 8 % 0-12 Automated blood eosinophils/100 leukocytes 1 % 0-10 Automated blood basophils/100 leukocytes 0 % 0-10 Blood neutrophils automated count (number/volume) 5.8 10*3 1.8-7.8 Blood lymphocytes automated count (number/volume) 1.1 10*3 1.0-4.0 Blood monocytes automated count (number/volume) 0. 6 10*3 0.0-1.0 Automated eosinophil count 0.1 10*3/uL 0 .0-0.3 Automated blood basophil count (count/volume) 0.0 10*3/uL 0.0-0.1 PT panel in platelet poor plasma by coag ulation assay - 07/07/19 21:40 Prothrombin time (PT) in platelet poor plasma by coagu lation assay 13.6 s 12.2-14.7 INR in platelet poor plasma or blood by coagulation as say 1.0 0.8-1.4 Blood lactic acid measurement (moles/vol ume) - 07/07/19 21:40 Blood lactic acid measurement (moles/volume) 0.72 mmol/L 0.50-2.00 Comprehensive metabolic panel - 07/07/19 21:40 Serum or plasma sodium measurement (moles/volume) 139 mmol/L 135-145 Serum or plasma potassium measurement (moles/volume) 5.0 mmol/L 3.6-5.0 Serum or plasma chloride measurement (moles/volume) 94 mmol/L 98-107 Carbon dioxide 33 mmol/L 21-32 Serum or plasma anion gap determination (moles/volume) 12 mmol/L 5-14 Serum or plasma urea nitrogen measurement (mass/volume ) 21 mg/dL 7-18 Serum or plasma creatinine measurement (mass/volume) 1.48 mg/dL 0.60-1.30 Serum or plasma urea nitrogen/creatinine mass ratio 14 NRG Serum or plasma creatinine measurement w ith calculation of estimated glomerular filtration rate 48 NRG Serum or plasma glucose measurement (mass/volume) 122 mg/dL 70-105 Serum or plasma calcium measurement (mass/volume) 9.2 mg/dL 8.5-10.1 Serum or plasma total bilirubin measurement (mass/volu me) 0.3 mg/dL 0.1-1.0 Serum or plasma alkaline phosphatase lourdes surement (enzymatic activity/volume) 131 U/L 40-136 Serum or plasma aspartate aminotransfera se measurement (enzymatic activity/volume) 19 U/L 5-34 Serum or plasma alanine aminotransferase measurement (enzymatic activity/volume) 17 U/L 0-55 Serum or plasma protein measurement (mass/volume) 8.1 g/dL 6.4-8.2 Serum or plasma albumin measurement (mass/volume) 3.5 g/dL 3.2-4.5 CALCIUM CORRECTED 9.6 mg/dL 8.5-10.1 Serum or plasma troponin i.cardiac measu rement (mass/volume) - 07/07/19 21:40 Serum or plasma troponin i.cardiac measurement (mass/v olume) 0.055 ng/mL <0.028 Serum or plasma lithium measurement (mol es/volume) - 07/07/19 21:40 BNP PT 470.5 pg/mL <100.0 Bacterial blood culture - 07/07/19 21:40 Bacterial blood culture NG NRG Bacterial blood culture - 07/07/19 21:49 Bacterial blood culture NG NRG Complete urinalysis with reflex to cultu re - 07/07/19 23:11 Urine color determination YELLOW NRG Urine clarity determination CLEAR NR G Urine pH measurement by test strip 5 5-9 Specific gravity of urine by test strip 1.020 1.016-1.022 Urine protein assay by test strip, semi-quantitative 4+ NEGATIVE Urine glucose detection by automated test strip NE GATIVE NEGATIVE Erythrocytes detection in urine sediment by light micr oscopy 2+ NEGATIVE Urine ketones detection by automated test strip NE GATIVE NEGATIVE Urine nitrite detection by test strip NEGATIVE NEGATIVE Urine total bilirubin detection by test strip NEGA TIVE NEGATIVE Urine urobilinogen measurement by automated test strip (mass/volume) NORMAL NORMAL Urine leukocyte esterase detection by dipstick NEG ATIVE NEGATIVE Automated urine sediment erythrocyte cou nt by microscopy (number/high power field) [HPF] NRG Automated urine sediment leukocyte count by microscopy (number/high power field) [HPF] NRG Bacteria detection in urine sediment by light microsco py FEW NRG Squamous epithelial cells detection in u rine sediment by light microscopy 0-2 NRG Crystals detection in urine sediment by light microsco py PRESENT NRG Casts detection in urine sediment by light microscopy PRESENT NRG Mucus detection in urine sediment by light microscopy NEGATIVE NRG Complete urinalysis with reflex to culture YES NRG Amorphous sediment detection in urine sediment by ligh t microscopy FEW JAYDON URATES NRG Hyaline casts detection in urine sediment by light jenny roscopy 25-50 NRG Renal epithelial cells detection in urin e sediment by light microscopy 0-2 NRG Bacterial urine culture - 07/07/19 23:11 Bacterial urine culture NG NRG Arterial blood gas measurement - 9 20:45 Blood pCO2 100 mm[Hg] 35-45 Blood pO2 80 mm[Hg] 79-93 Arterial blood bicarbonate measurement (moles/volume) 45 mmol/L 23-27 Arterial blood base excess by calculation 17.1 mmo l/L -2.5-2.5 Arterial blood oxygen saturation measurement 95 % 94-100 * Inhaled oxygen flow rate 6 NRG Arterial blood pH measurement with patient temperature correction 7.27 7.37-7.43 Arterial blood carbon dioxide, total measurement (mole s/volume) 47.5 mmol/L 21.0-31.0 Body site RIGHT RADIAL NRG Assessment of wrist artery patency prior to arterial p uncture POSITIVE NRG Setting of ventilation mode NO NR G Measurement of body temperature 37.3 NRG Complete blood count (CBC) with automate d white blood cell (WBC) differential - 07/14/19 20:48 Blood leukocytes automated count (number/volume) 11.0 10*3/uL 4.3-11.0 Blood erythrocytes automated count (number/volume) 3.34 10*6/uL 4.35-5.85 Venous blood hemoglobin measurement (mass/volume) 9.4 g/dL 13.3-17.7 Blood hematocrit (volume fraction) 32 % 40-54 Automated erythrocyte mean corpuscular volume 95 [ foz_us] 80-99 Automated erythrocyte mean corpuscular h emoglobin (mass per erythrocyte) 28 pg 25-34 Automated erythrocyte mean corpuscular h emoglobin concentration measurement (mass/volume) 30 g/dL 32-36 Automated erythrocyte distribution width ratio 16. 8 % 10.0- 14.5 Automated blood platelet count (count/volume) 183 10*3/uL 130-400 Automated blood platelet mean volume measurement 9.2 [foz_us] 7.4-10.4 Automated blood neutrophils/100 leukocytes 78 % 42-75 Automated blood lymphocytes/100 leukocytes 12 % 12-44 Blood monocytes/100 leukocytes 8 % 0-12 Automated blood eosinophils/100 leukocytes 2 % 0-10 Automated blood basophils/100 leukocytes 0 % 0-10 Blood neutrophils automated count (number/volume) 8.6 10*3 1.8-7.8 Blood lymphocytes automated count (number/volume) 1.3 10*3 1.0-4.0 Blood monocytes automated count (number/volume) 0. 9 10*3 0.0-1.0 Automated eosinophil count 0.2 10*3/uL 0 .0-0.3 Automated blood basophil count (count/volume) 0.0 10*3/uL 0.0-0.1 Blood lactic acid measurement (moles/vol ume) - 07/14/19 20:48 Blood lactic acid measurement (moles/volume) 0.62 mmol/L 0.50-2.00 PT panel in platelet poor plasma by coag ulation assay - 07/14/19 20:48 Prothrombin time (PT) in platelet poor plasma by coagu lation assay 12.5 s 12.2-14.7 INR in platelet poor plasma or blood by coagulation as say 0.9 0.8-1.4 Activated partial thromboplastin time (a PTT) in platelet poor plasma bycoagulation assay - 07/14/19 20:48 Activated partial thromboplastin time (a PTT) in platelet poor plasma bycoagulation assay 30 s 24-35 Comprehensive metabolic panel - 07/14/19 20:48 Serum or plasma sodium measurement (moles/volume) 145 mmol/L 135-145 Serum or plasma potassium measurement (moles/volume) 4.9 mmol/L 3.6-5.0 Serum or plasma chloride measurement (moles/volume) 96 mmol/L 98-107 Carbon dioxide 37 mmol/L 21-32 Serum or plasma anion gap determination (moles/volume) 12 mmol/L 5-14 Serum or plasma urea nitrogen measurement (mass/volume ) 24 mg/dL 7-18 Serum or plasma creatinine measurement (mass/volume) 1.30 mg/dL 0.60-1.30 Serum or plasma urea nitrogen/creatinine mass ratio 18 NRG Serum or plasma creatinine measurement w ith calculation of estimated glomerular filtration rate 56 NRG Serum or plasma glucose measurement (mass/volume) 138 mg/dL 70-105 Serum or plasma calcium measurement (mass/volume) 8.9 mg/dL 8.5-10.1 Serum or plasma total bilirubin measurement (mass/volu me) 0.3 mg/dL 0.1-1.0 Serum or plasma alkaline phosphatase lourdes surement (enzymatic activity/volume) 92 U/L 40-136 Serum or plasma aspartate aminotransfera se measurement (enzymatic activity/volume) 28 U/L 5-34 Serum or plasma alanine aminotransferase measurement (enzymatic activity/volume) 32 U/L 0-55 Serum or plasma protein measurement (mass/volume) 7.1 g/dL 6.4-8.2 Serum or plasma albumin measurement (mass/volume) 3.4 g/dL 3.2-4.5 CALCIUM CORRECTED 9.4 mg/dL 8.5-10.1 Serum or plasma troponin i.cardiac measu rement (mass/volume) - 07/14/19 20:48 Serum or plasma troponin i.cardiac measurement (mass/v olume) 0.042 ng/mL <0.028 Serum or plasma C reactive protein measu rement (mass/volume) - 07/14/19 20:48 Serum or plasma C reactive protein measurement (mass/v olume) 1.30 mg/dL 0.00-0.50 Serum or plasma lithium measurement (mol es/volume) - 07/14/19 20:48 BNP PT 464.4 pg/mL <100.0 Bacterial blood culture - 07/14/19 20:48 Bacterial blood culture NG NRG Influenza virus A and B antigen detectio n - 07/14/19 20:55 FLU RESULT NEGATIVE FOR INFLUENZA A AND B ANTIGENS BY IA NRG Bacterial blood culture - 07/14/19 21:20 Bacterial blood culture NG NRG Arterial blood gas measurement - 9 22:20 Blood pCO2 88 mm[Hg] 35-45 Blood pO2 103 mm[Hg] 79-93 Arterial blood bicarbonate measurement (moles/volume) 44 mmol/L 23-27 Arterial blood base excess by calculation 16.8 mmo l/L -2.5-2.5 Arterial blood oxygen saturation measurement 98 % 94-100 * Inhaled oxygen flow rate 45% BIPAP NR G Arterial blood pH measurement with patient temperature correction 7.32 7.37-7.43 Arterial blood carbon dioxide, total measurement (mole s/volume) 46.4 mmol/L 21.0-31.0 Body site LEFT RADIAL NRG Assessment of wrist artery patency prior to arterial p uncture POSITIVE NRG Setting of ventilation mode YES NR G Measurement of body temperature 36.9 NRG Methicillin resistant Staphylococcus aur eus (MRSA) screening culture - 07/14/19 22:50 Methicillin resistant Staphylococcus aureus (MRSA) scr eening culture NEG NRG Complete blood count (CBC) with automate d white blood cell (WBC) differential - 07/15/19 03:05 Blood leukocytes automated count (number/volume) 8.6 10*3/uL 4.3-11.0 Blood erythrocytes automated count (number/volume) 3.07 10*6/uL 4.35-5.85 Venous blood hemoglobin measurement (mass/volume) 8.4 g/dL 13.3-17.7 Blood hematocrit (volume fraction) 29 % 40-54 Automated erythrocyte mean corpuscular volume 95 [ foz_us] 80-99 Automated erythrocyte mean corpuscular h emoglobin (mass per erythrocyte) 27 pg 25-34 Automated erythrocyte mean corpuscular h emoglobin concentration measurement (mass/volume) 29 g/dL 32-36 Automated erythrocyte distribution width ratio 16. 7 % 10.0- 14.5 Automated blood platelet count (count/volume) 159 10*3/uL 130-400 Automated blood platelet mean volume measurement 9.7 [foz_us] 7.4-10.4 Automated blood neutrophils/100 leukocytes 70 % 42-75 Automated blood lymphocytes/100 leukocytes 19 % 12-44 Blood monocytes/100 leukocytes 9 % 0-12 Automated blood eosinophils/100 leukocytes 2 % 0-10 Automated blood basophils/100 leukocytes 0 % 0-10 Blood neutrophils automated count (number/volume) 6.0 10*3 1.8-7.8 Blood lymphocytes automated count (number/volume) 1.6 10*3 1.0-4.0 Blood monocytes automated count (number/volume) 0. 8 10*3 0.0-1.0 Automated eosinophil count 0.2 10*3/uL 0 .0-0.3 Automated blood basophil count (count/volume) 0.0 10*3/uL 0.0-0.1 Whole blood basic metabolic panel - 07/05 09/22 03:05 Serum or plasma sodium measurement (moles/volume) 145 mmol/L 135-145 Serum or plasma potassium measurement (moles/volume) 4.1 mmol/L 3.6-5.0 Serum or plasma chloride measurement (moles/volume) 98 mmol/L 98-107 Carbon dioxide 39 mmol/L 21-32 Serum or plasma anion gap determination (moles/volume) 8 mmol/L 5-14 Serum or plasma urea nitrogen measurement (mass/volume ) 24 mg/dL 7-18 Serum or plasma creatinine measurement (mass/volume) 1.09 mg/dL 0.60-1.30 Serum or plasma urea nitrogen/creatinine mass ratio 22 NRG Serum or plasma creatinine measurement w ith calculation of estimated glomerular filtration rate > NRG Serum or plasma glucose measurement (mass/volume) 75 mg/dL 70-105 Serum or plasma calcium measurement (mass/volume) 8.7 mg/dL 8.5-10.1 Serum or plasma phosphate measurement (m ass/volume) - 07/15/19 03:05 Serum or plasma phosphate measurement (mass/volume) 3.0 mg/dL 2.3-4.7 Magnesium - 07/15/19 03:05 Magnesium 1.8 mg/dL 1.6-2.4 Serum or plasma troponin i.cardiac measu rement (mass/volume) - 07/15/19 03:05 Serum or plasma troponin i.cardiac measurement (mass/v olume) 0.042 ng/mL <0.028 Arterial blood gas measurement - 9 03:30 Blood pCO2 69 mm[Hg] 35-45 Blood pO2 65 mm[Hg] 79-93 Arterial blood bicarbonate measurement (moles/volume) 45 mmol/L 23-27 Arterial blood base excess by calculation 18.9 mmo l/L -2.5-2.5 Arterial blood oxygen saturation measurement 95 % 94-100 * Inhaled oxygen flow rate 30% BIPAP NR G Arterial blood pH measurement with patient temperature correction 7.42 7.37-7.43 Arterial blood carbon dioxide, total measurement (mole s/volume) 47.0 mmol/L 21.0-31.0 Body site RIGHT RADIAL NRG Assessment of wrist artery patency prior to arterial p uncture POSITIVE NRG Setting of ventilation mode NO NR G Measurement of body temperature 36.1 NRG Sputum Gram stain - 07/15/19 03:30 Sputum Gram stain Mixed Bacterial Elissa NRG Bacterial sputum culture - 07/15/19 03:3 0 QUANTITY OF GROWTH . NRG Bacterial sputum culture USUAL RESP NRG Serum or plasma troponin i.cardiac measu rement (mass/volume) - 07/15/19 09:20 Serum or plasma troponin i.cardiac measurement (mass/v olume) 0.044 ng/mL <0.028 RED CELLS LEUKO REDUCED AS1 - 07/15/19 1 3:29 RED CELLS LEUKO REDUCED AS1 T RANSFUSED 07/15/19 1436 NRG Blood type T Indirect antibody screen pa marley - 07/15/19 13:29 WRISTBAND NUMBER [id number] NRG ABO+Rh group AP NRG Blood group antibody screen NEGATIVE NR G Capillary blood glucose measurement by g lucometer (mass/volume) - 07/15/19 15:57 Capillary blood glucose measurement by glucometer (mas s/volume) 116 mg/dL 70-110 Capillary blood glucose measurement by g lucometer (mass/volume) - 07/15/19 20:50 Capillary blood glucose measurement by glucometer (mas s/volume) 185 mg/dL 70-110 Whole blood basic metabolic panel - 07/05 10/23 05:15 Serum or plasma sodium measurement (moles/volume) 143 mmol/L 135-145 Serum or plasma potassium measurement (moles/volume) 3.9 mmol/L 3.6-5.0 Serum or plasma chloride measurement (moles/volume) 93 mmol/L 98-107 Carbon dioxide 43 mmol/L 21-32 Serum or plasma anion gap determination (moles/volume) 7 mmol/L 5-14 Serum or plasma urea nitrogen measurement (mass/volume ) 21 mg/dL 7-18 Serum or plasma creatinine measurement (mass/volume) 0.89 mg/dL 0.60-1.30 Serum or plasma urea nitrogen/creatinine mass ratio 24 NRG Serum or plasma creatinine measurement w ith calculation of estimated glomerular filtration rate > NRG Serum or plasma glucose measurement (mass/volume) 62 mg/dL 70-105 Serum or plasma calcium measurement (mass/volume) 8.7 mg/dL 8.5-10.1 Serum or plasma phosphate measurement (m ass/volume) - 07/16/19 05:15 Serum or plasma phosphate measurement (mass/volume) 3.3 mg/dL 2.3-4.7 Serum or plasma lithium measurement (mol es/volume) - 07/16/19 05:15 BNP PT 416.1 pg/mL <100.0 Capillary blood glucose measurement by g lucometer (mass/volume) - 07/16/19 05:34 Capillary blood glucose measurement by glucometer (mas s/volume) 66 mg/dL 70-110 OCCULT BLOOD STOOL - 07/16/19 09:00 Stool gastrointestinal hemoglobin detection POSITI VE NEGATIVE Complete blood count (CBC) with automate d white blood cell (WBC) differential - 07/16/19 09:35 Blood leukocytes automated count (number/volume) 9.3 10*3/uL 4.3-11.0 Blood erythrocytes automated count (number/volume) 3.59 10*6/uL 4.35-5.85 Venous blood hemoglobin measurement (mass/volume) 9.9 g/dL 13.3-17.7 Blood hematocrit (volume fraction) 33 % 40-54 Automated erythrocyte mean corpuscular volume 92 [ foz_us] 80-99 Automated erythrocyte mean corpuscular h emoglobin (mass per erythrocyte) 28 pg 25-34 Automated erythrocyte mean corpuscular h emoglobin concentration measurement (mass/volume) 30 g/dL 32-36 Automated erythrocyte distribution width ratio 17. 7 % 10.0- 14.5 Automated blood platelet count (count/volume) 167 10*3/uL 130-400 Automated blood platelet mean volume measurement 9.2 [foz_us] 7.4-10.4 Automated blood neutrophils/100 leukocytes 77 % 42-75 Automated blood lymphocytes/100 leukocytes 12 % 12-44 Blood monocytes/100 leukocytes 9 % 0-12 Automated blood eosinophils/100 leukocytes 2 % 0-10 Automated blood basophils/100 leukocytes 0 % 0-10 Blood neutrophils automated count (number/volume) 7.2 10*3 1.8-7.8 Blood lymphocytes automated count (number/volume) 1.1 10*3 1.0-4.0 Blood monocytes automated count (number/volume) 0. 8 10*3 0.0-1.0 Automated eosinophil count 0.2 10*3/uL 0 .0-0.3 Automated blood basophil count (count/volume) 0.0 10*3/uL 0.0-0.1 Automated blood complete blood count (he mogram) panel - 07/16/19 09:35 Blood leukocytes automated count (number/volume) 9.3 10*3/uL 4.3-11.0 Blood erythrocytes automated count (number/volume) 3.59 10*6/uL 4.35-5.85 Venous blood hemoglobin measurement (mass/volume) 9.9 g/dL 13.3-17.7 Blood hematocrit (volume fraction) 33 % 40-54 Automated erythrocyte mean corpuscular volume 92 [ foz_us] 80-99 Automated erythrocyte mean corpuscular h emoglobin (mass per erythrocyte) 28 pg 25-34 Automated erythrocyte mean corpuscular h emoglobin concentration measurement (mass/volume) 30 g/dL 32-36 Automated erythrocyte distribution width ratio 17. 7 % 10.0- 14.5 Automated blood platelet count (count/volume) 167 10*3/uL 130-400 Automated blood platelet mean volume measurement 9.2 [foz_us] 7.4-10.4 Serum or plasma phosphate measurement (m ass/volume) - 07/16/19 09:35 Serum or plasma phosphate measurement (mass/volume) 3.2 mg/dL 2.3-4.7 Magnesium - 07/16/19 09:35 Magnesium 1.7 mg/dL 1.6-2.4 Serum or plasma lithium measurement (mol es/volume) - 07/16/19 09:35 BNP PT 457.8 pg/mL <100.0 Capillary blood glucose measurement by g lucometer (mass/volume) - 07/16/19 10:56 Capillary blood glucose measurement by glucometer (mas s/volume) 111 mg/dL 70-110 Capillary blood glucose measurement by g lucometer (mass/volume) - 07/16/19 15:56 Capillary blood glucose measurement by glucometer (mas s/volume) 114 mg/dL 70-110 Capillary blood glucose measurement by g lucometer (mass/volume) - 07/16/19 20:32 Capillary blood glucose measurement by glucometer (mas s/volume) 121 mg/dL 70-110 Complete blood count (CBC) with automate d white blood cell (WBC) differential - 07/17/19 05:00 Blood leukocytes automated count (number/volume) 8.3 10*3/uL 4.3-11.0 Blood erythrocytes automated count (number/volume) 3.38 10*6/uL 4.35-5.85 Venous blood hemoglobin measurement (mass/volume) 9.4 g/dL 13.3-17.7 Blood hematocrit (volume fraction) 31 % 40-54 Automated erythrocyte mean corpuscular volume 92 [ foz_us] 80-99 Automated erythrocyte mean corpuscular h emoglobin (mass per erythrocyte) 28 pg 25-34 Automated erythrocyte mean corpuscular h emoglobin concentration measurement (mass/volume) 30 g/dL 32-36 Automated erythrocyte distribution width ratio 16. 9 % 10.0- 14.5 Automated blood platelet count (count/volume) 148 10*3/uL 130-400 Automated blood platelet mean volume measurement 9.5 [foz_us] 7.4-10.4 Automated blood neutrophils/100 leukocytes 70 % 42-75 Automated blood lymphocytes/100 leukocytes 18 % 12-44 Blood monocytes/100 leukocytes 9 % 0-12 Automated blood eosinophils/100 leukocytes 2 % 0-10 Automated blood basophils/100 leukocytes 0 % 0-10 Blood neutrophils automated count (number/volume) 5.8 10*3 1.8-7.8 Blood lymphocytes automated count (number/volume) 1.5 10*3 1.0-4.0 Blood monocytes automated count (number/volume) 0. 7 10*3 0.0-1.0 Automated eosinophil count 0.2 10*3/uL 0 .0-0.3 Automated blood basophil count (count/volume) 0.0 10*3/uL 0.0-0.1 Whole blood basic metabolic panel - 07/05 11/20 05:00 Serum or plasma sodium measurement (moles/volume) 143 mmol/L 135-145 Serum or plasma potassium measurement (moles/volume) 4.2 mmol/L 3.6-5.0 Serum or plasma chloride measurement (moles/volume) 93 mmol/L 98-107 Carbon dioxide 42 mmol/L 21-32 Serum or plasma anion gap determination (moles/volume) 8 mmol/L 5-14 Serum or plasma urea nitrogen measurement (mass/volume ) 18 mg/dL 7-18 Serum or plasma creatinine measurement (mass/volume) 1.03 mg/dL 0.60-1.30 Serum or plasma urea nitrogen/creatinine mass ratio 17 NRG Serum or plasma creatinine measurement w ith calculation of estimated glomerular filtration rate > NRG Serum or plasma glucose measurement (mass/volume) 88 mg/dL 70-105 Serum or plasma calcium measurement (mass/volume) 9.1 mg/dL 8.5-10.1 Serum or plasma phosphate measurement (m ass/volume) - 07/17/19 05:00 Serum or plasma phosphate measurement (mass/volume) 3.1 mg/dL 2.3-4.7 Magnesium - 07/17/19 05:00 Magnesium 1.8 mg/dL 1.6-2.4 Serum or plasma lithium measurement (mol es/volume) - 07/17/19 05:00 BNP PT 447.8 pg/mL <100.0 Gram stain microscopy - 07/17/19 09:10 Gram stain microscopy NO BACTERIA SEEN NRG Bacterial body fluid culture - 07/17/19 09:10 Bacterial body fluid culture NG N RG Capillary blood glucose measurement by g lucometer (mass/volume) - 07/17/19 16:24 Capillary blood glucose measurement by glucometer (mas s/volume) 108 mg/dL 70-110 Capillary blood glucose measurement by g lucometer (mass/volume) - 07/17/19 20:40 Capillary blood glucose measurement by glucometer (mas s/volume) 109 mg/dL 70-110 Complete blood count (CBC) with automate d white blood cell (WBC) differential - 07/18/19 04:05 Blood leukocytes automated count (number/volume) 8.3 10*3/uL 4.3-11.0 Blood erythrocytes automated count (number/volume) 3.46 10*6/uL 4.35-5.85 Venous blood hemoglobin measurement (mass/volume) 9.3 g/dL 13.3-17.7 Blood hematocrit (volume fraction) 32 % 40-54 Automated erythrocyte mean corpuscular volume 92 [ foz_us] 80-99 Automated erythrocyte mean corpuscular h emoglobin (mass per erythrocyte) 27 pg 25-34 Automated erythrocyte mean corpuscular h emoglobin concentration measurement (mass/volume) 29 g/dL 32-36 Automated erythrocyte distribution width ratio 16. 6 % 10.0- 14.5 Automated blood platelet count (count/volume) 154 10*3/uL 130-400 Automated blood platelet mean volume measurement 9.7 [foz_us] 7.4-10.4 Automated blood neutrophils/100 leukocytes 69 % 42-75 Automated blood lymphocytes/100 leukocytes 17 % 12-44 Blood monocytes/100 leukocytes 12 % 0-12 Automated blood eosinophils/100 leukocytes 2 % 0-10 Automated blood basophils/100 leukocytes 0 % 0-10 Blood neutrophils automated count (number/volume) 5.7 10*3 1.8-7.8 Blood lymphocytes automated count (number/volume) 1.4 10*3 1.0-4.0 Blood monocytes automated count (number/volume) 1. 0 10*3 0.0-1.0 Automated eosinophil count 0.1 10*3/uL 0 .0-0.3 Automated blood basophil count (count/volume) 0.0 10*3/uL 0.0-0.1 Whole blood basic metabolic panel - 07/05 12/21 04:05 Serum or plasma sodium measurement (moles/volume) 143 mmol/L 135-145 Serum or plasma potassium measurement (moles/volume) 4.1 mmol/L 3.6-5.0 Serum or plasma chloride measurement (moles/volume) 94 mmol/L 98-107 Carbon dioxide 39 mmol/L 21-32 Serum or plasma anion gap determination (moles/volume) 10 mmol/L 5-14 Serum or plasma urea nitrogen measurement (mass/volume ) 23 mg/dL 7-18 Serum or plasma creatinine measurement (mass/volume) 1.29 mg/dL 0.60-1.30 Serum or plasma urea nitrogen/creatinine mass ratio 18 NRG Serum or plasma creatinine measurement w ith calculation of estimated glomerular filtration rate 56 NRG Serum or plasma glucose measurement (mass/volume) 87 mg/dL 70-105 Serum or plasma calcium measurement (mass/volume) 9.1 mg/dL 8.5-10.1 Serum or plasma phosphate measurement (m ass/volume) - 07/18/19 04:05 Serum or plasma phosphate measurement (mass/volume) 3.5 mg/dL 2.3-4.7 Magnesium - 07/18/19 04:05 Magnesium 1.9 mg/dL 1.6-2.4 Capillary blood glucose measurement by g lucometer (mass/volume) - 07/18/19 10:58 Capillary blood glucose measurement by glucometer (mas s/volume) 110 mg/dL 70-110 Capillary blood glucose measurement by g lucometer (mass/volume) - 07/18/19 16:06 Capillary blood glucose measurement by glucometer (mas s/volume) 94 mg/dL 70-110 Capillary blood glucose measurement by g lucometer (mass/volume) - 07/18/19 20:05 Capillary blood glucose measurement by glucometer (mas s/volume) 113 mg/dL 70-110 Complete blood count (CBC) with automate d white blood cell (WBC) differential - 07/19/19 04:30 Blood leukocytes automated count (number/volume) 7.4 10*3/uL 4.3-11.0 Blood erythrocytes automated count (number/volume) 3.24 10*6/uL 4.35-5.85 Venous blood hemoglobin measurement (mass/volume) 9.0 g/dL 13.3-17.7 Blood hematocrit (volume fraction) 30 % 40-54 Automated erythrocyte mean corpuscular volume 94 [ foz_us] 80-99 Automated erythrocyte mean corpuscular h emoglobin (mass per erythrocyte) 28 pg 25-34 Automated erythrocyte mean corpuscular h emoglobin concentration measurement (mass/volume) 30 g/dL 32-36 Automated erythrocyte distribution width ratio 16. 3 % 10.0- 14.5 Automated blood platelet count (count/volume) 130 10*3/uL 130-400 Automated blood platelet mean volume measurement 9.6 [foz_us] 7.4-10.4 Automated blood neutrophils/100 leukocytes 66 % 42-75 Automated blood lymphocytes/100 leukocytes 20 % 12-44 Blood monocytes/100 leukocytes 12 % 0-12 Automated blood eosinophils/100 leukocytes 2 % 0-10 Automated blood basophils/100 leukocytes 0 % 0-10 Blood neutrophils automated count (number/volume) 4.9 10*3 1.8-7.8 Blood lymphocytes automated count (number/volume) 1.5 10*3 1.0-4.0 Blood monocytes automated count (number/volume) 0. 9 10*3 0.0-1.0 Automated eosinophil count 0.2 10*3/uL 0 .0-0.3 Automated blood basophil count (count/volume) 0.0 10*3/uL 0.0-0.1 Whole blood basic metabolic panel - 07/05 01/20 04:30 Serum or plasma sodium measurement (moles/volume) 143 mmol/L 135-145 Serum or plasma potassium measurement (moles/volume) 4.0 mmol/L 3.6-5.0 Serum or plasma chloride measurement (moles/volume) 94 mmol/L 98-107 Carbon dioxide 41 mmol/L 21-32 Serum or plasma anion gap determination (moles/volume) 8 mmol/L 5-14 Serum or plasma urea nitrogen measurement (mass/volume ) 27 mg/dL 7-18 Serum or plasma creatinine measurement (mass/volume) 1.39 mg/dL 0.60-1.30 Serum or plasma urea nitrogen/creatinine mass ratio 19 NRG Serum or plasma creatinine measurement w ith calculation of estimated glomerular filtration rate 51 NRG Serum or plasma glucose measurement (mass/volume) 138 mg/dL 70-105 Serum or plasma calcium measurement (mass/volume) 9.1 mg/dL 8.5-10.1 Serum or plasma phosphate measurement (m ass/volume) - 07/19/19 04:30 Serum or plasma phosphate measurement (mass/volume) 3.2 mg/dL 2.3-4.7 Magnesium - 07/19/19 04:30 Magnesium 2.0 mg/dL 1.6-2.4 Serum or plasma lithium measurement (mol es/volume) - 07/19/19 04:30 BNP PT 361.1 pg/mL <100.0 Capillary blood glucose measurement by g lucometer (mass/volume) - 07/19/19 06:01 Capillary blood glucose measurement by glucometer (mas s/volume) 108 mg/dL 70-110 Capillary blood glucose measurement by g lucometer (mass/volume) - 07/19/19 11:30 Capillary blood glucose measurement by glucometer (mas s/volume) 105 mg/dL 70-110 Capillary blood glucose measurement by g lucometer (mass/volume) - 07/19/19 15:18 Capillary blood glucose measurement by glucometer (mas s/volume) 94 mg/dL 70-110 Capillary blood glucose measurement by g lucometer (mass/volume) - 07/19/19 21:06 Capillary blood glucose measurement by glucometer (mas s/volume) 136 mg/dL 70-110 Complete blood count (CBC) with automate d white blood cell (WBC) differential - 07/20/19 03:50 Blood leukocytes automated count (number/volume) 7.7 10*3/uL 4.3-11.0 Blood erythrocytes automated count (number/volume) 3.29 10*6/uL 4.35-5.85 Venous blood hemoglobin measurement (mass/volume) 9.1 g/dL 13.3-17.7 Blood hematocrit (volume fraction) 31 % 40-54 Automated erythrocyte mean corpuscular volume 93 [ foz_us] 80-99 Automated erythrocyte mean corpuscular h emoglobin (mass per erythrocyte) 28 pg 25-34 Automated erythrocyte mean corpuscular h emoglobin concentration measurement (mass/volume) 30 g/dL 32-36 Automated erythrocyte distribution width ratio 16. 4 % 10.0- 14.5 Automated blood platelet count (count/volume) 133 10*3/uL 130-400 Automated blood platelet mean volume measurement 9.4 [foz_us] 7.4-10.4 Automated blood neutrophils/100 leukocytes 69 % 42-75 Automated blood lymphocytes/100 leukocytes 19 % 12-44 Blood monocytes/100 leukocytes 11 % 0-12 Automated blood eosinophils/100 leukocytes 1 % 0-10 Automated blood basophils/100 leukocytes 0 % 0-10 Blood neutrophils automated count (number/volume) 5.3 10*3 1.8-7.8 Blood lymphocytes automated count (number/volume) 1.4 10*3 1.0-4.0 Blood monocytes automated count (number/volume) 0. 9 10*3 0.0-1.0 Automated eosinophil count 0.1 10*3/uL 0 .0-0.3 Automated blood basophil count (count/volume) 0.0 10*3/uL 0.0-0.1 Whole blood basic metabolic panel - 07/05 02/20 03:50 Serum or plasma sodium measurement (moles/volume) 142 mmol/L 135-145 Serum or plasma potassium measurement (moles/volume) 4.1 mmol/L 3.6-5.0 Serum or plasma chloride measurement (moles/volume) 95 mmol/L 98-107 Carbon dioxide 38 mmol/L 21-32 Serum or plasma anion gap determination (moles/volume) 9 mmol/L 5-14 Serum or plasma urea nitrogen measurement (mass/volume ) 25 mg/dL 7-18 Serum or plasma creatinine measurement (mass/volume) 1.20 mg/dL 0.60-1.30 Serum or plasma urea nitrogen/creatinine mass ratio 21 NRG Serum or plasma creatinine measurement w ith calculation of estimated glomerular filtration rate > NRG Serum or plasma glucose measurement (mass/volume) 83 mg/dL 70-105 Serum or plasma calcium measurement (mass/volume) 9.1 mg/dL 8.5-10.1 Serum or plasma phosphate measurement (m ass/volume) - 07/20/19 03:50 Serum or plasma phosphate measurement (mass/volume) 3.5 mg/dL 2.3-4.7 Magnesium - 07/20/19 03:50 Magnesium 2.1 mg/dL 1.6-2.4 Serum or plasma lithium measurement (mol es/volume) - 07/20/19 03:50 BNP PT 405.9 pg/mL <100.0 Capillary blood glucose measurement by g lucometer (mass/volume) - 07/20/19 11:38 Capillary blood glucose measurement by glucometer (mas s/volume) 111 mg/dL 70-110 Capillary blood glucose measurement by g lucometer (mass/volume) - 07/20/19 15:53 Capillary blood glucose measurement by glucometer (mas s/volume) 120 mg/dL 70-110 Capillary blood glucose measurement by g lucometer (mass/volume) - 07/20/19 20:24 Capillary blood glucose measurement by glucometer (mas s/volume) 162 mg/dL 70-110 Complete blood count (CBC) with automate d white blood cell (WBC) differential - 07/21/19 05:05 Blood leukocytes automated count (number/volume) 7.9 10*3/uL 4.3-11.0 Blood erythrocytes automated count (number/volume) 3.21 10*6/uL 4.35-5.85 Venous blood hemoglobin measurement (mass/volume) 9.0 g/dL 13.3-17.7 Blood hematocrit (volume fraction) 31 % 40-54 Automated erythrocyte mean corpuscular volume 95 [ foz_us] 80-99 Automated erythrocyte mean corpuscular h emoglobin (mass per erythrocyte) 28 pg 25-34 Automated erythrocyte mean corpuscular h emoglobin concentration measurement (mass/volume) 30 g/dL 32-36 Automated erythrocyte distribution width ratio 16. 3 % 10.0- 14.5 Automated blood platelet count (count/volume) 126 10*3/uL 130-400 Automated blood platelet mean volume measurement 9.7 [foz_us] 7.4-10.4 Automated blood neutrophils/100 leukocytes 70 % 42-75 Automated blood lymphocytes/100 leukocytes 16 % 12-44 Blood monocytes/100 leukocytes 12 % 0-12 Automated blood eosinophils/100 leukocytes 2 % 0-10 Automated blood basophils/100 leukocytes 0 % 0-10 Blood neutrophils automated count (number/volume) 5.5 10*3 1.8-7.8 Blood lymphocytes automated count (number/volume) 1.2 10*3 1.0-4.0 Blood monocytes automated count (number/volume) 1. 0 10*3 0.0-1.0 Automated eosinophil count 0.2 10*3/uL 0 .0-0.3 Automated blood basophil count (count/volume) 0.0 10*3/uL 0.0-0.1 Whole blood basic metabolic panel - 07/05 03/22 05:05 Serum or plasma sodium measurement (moles/volume) 142 mmol/L 135-145 Serum or plasma potassium measurement (moles/volume) 4.5 mmol/L 3.6-5.0 Serum or plasma chloride measurement (moles/volume) 95 mmol/L 98-107 Carbon dioxide 39 mmol/L 21-32 Serum or plasma anion gap determination (moles/volume) 8 mmol/L 5-14 Serum or plasma urea nitrogen measurement (mass/volume ) 25 mg/dL 7-18 Serum or plasma creatinine measurement (mass/volume) 1.35 mg/dL 0.60-1.30 Serum or plasma urea nitrogen/creatinine mass ratio 19 NRG Serum or plasma creatinine measurement w ith calculation of estimated glomerular filtration rate 53 NRG Serum or plasma glucose measurement (mass/volume) 118 mg/dL 70-105 Serum or plasma calcium measurement (mass/volume) 9.0 mg/dL 8.5-10.1 Serum or plasma phosphate measurement (m ass/volume) - 07/21/19 05:05 Serum or plasma phosphate measurement (mass/volume) 3.2 mg/dL 2.3-4.7 Magnesium - 07/21/19 05:05 Magnesium 2.0 mg/dL 1.6-2.4 Capillary blood glucose measurement by g lucometer (mass/volume) - 07/21/19 11:07 Capillary blood glucose measurement by glucometer (mas s/volume) 126 mg/dL 70-110 Arterial blood gas measurement - 9 14:01 Blood pCO2 108 mm[Hg] 35-45 Blood pO2 146 mm[Hg] 79-93 Arterial blood bicarbonate measurement (moles/volume) 39 mmol/L 23-27 Arterial blood base excess by calculation 11.1 mmo l/L -2.5-2.5 Arterial blood oxygen saturation measurement 99 % 94-100 * Inhaled oxygen flow rate 50% BIPAP NR G Arterial blood pH measurement with patient temperature correction 7.19 7.37-7.43 Arterial blood carbon dioxide, total measurement (mole s/volume) 42.5 mmol/L 21.0-31.0 Body site RIGHT RADIAL NRG Assessment of wrist artery patency prior to arterial p uncture POSITIVE NRG Setting of ventilation mode NO NR G Measurement of body temperature 37.5 NRG Complete blood count (CBC) with automate d white blood cell (WBC) differential - 08/03/19 14:05 Blood leukocytes automated count (number/volume) 12.3 10*3/uL 4.3-11.0 Blood erythrocytes automated count (number/volume) 3.40 10*6/uL 4.35-5.85 Venous blood hemoglobin measurement (mass/volume) 9.7 g/dL 13.3-17.7 Blood hematocrit (volume fraction) 33 % 40-54 Automated erythrocyte mean corpuscular volume 98 [ foz_us] 80-99 Automated erythrocyte mean corpuscular h emoglobin (mass per erythrocyte) 29 pg 25-34 Automated erythrocyte mean corpuscular h emoglobin concentration measurement (mass/volume) 29 g/dL 32-36 Automated erythrocyte distribution width ratio 17. 3 % 10.0- 14.5 Automated blood platelet count (count/volume) 183 10*3/uL 130-400 Automated blood platelet mean volume measurement 10.4 [foz_us] 7.4-10.4 Automated blood neutrophils/100 leukocytes 90 % 42-75 Automated blood lymphocytes/100 leukocytes 4 % 12-44 Blood monocytes/100 leukocytes 6 % 0-12 Automated blood eosinophils/100 leukocytes 0 % 0-10 Automated blood basophils/100 leukocytes 0 % 0-10 Blood neutrophils automated count (number/volume) 11.1 10*3 1.8-7.8 Blood lymphocytes automated count (number/volume) 0.5 10*3 1.0-4.0 Blood monocytes automated count (number/volume) 0. 7 10*3 0.0-1.0 Automated eosinophil count 0.0 10*3/uL 0 .0-0.3 Automated blood basophil count (count/volume) 0.0 10*3/uL 0.0-0.1 Blood lactic acid measurement (moles/vol ume) - 08/03/19 14:05 Blood lactic acid measurement (moles/volume) 0.68 mmol/L 0.50-2.00 Comprehensive metabolic panel - 08/03/19 14:05 Serum or plasma sodium measurement (moles/volume) 142 mmol/L 135-145 Serum or plasma potassium measurement (moles/volume) 5.8 mmol/L 3.6-5.0 Serum or plasma chloride measurement (moles/volume) 99 mmol/L 98-107 Carbon dioxide 35 mmol/L 21-32 Serum or plasma anion gap determination (moles/volume) 8 mmol/L 5-14 Serum or plasma urea nitrogen measurement (mass/volume ) 52 mg/dL 7-18 Serum or plasma creatinine measurement (mass/volume) 1.69 mg/dL 0.60-1.30 Serum or plasma urea nitrogen/creatinine mass ratio 31 NRG Serum or plasma creatinine measurement w ith calculation of estimated glomerular filtration rate 41 NRG Serum or plasma glucose measurement (mass/volume) 159 mg/dL 70-105 Serum or plasma calcium measurement (mass/volume) 9.1 mg/dL 8.5-10.1 Serum or plasma total bilirubin measurement (mass/volu me) 0.2 mg/dL 0.1-1.0 Serum or plasma alkaline phosphatase lourdes surement (enzymatic activity/volume) 84 U/L 40-136 Serum or plasma aspartate aminotransfera se measurement (enzymatic activity/volume) 15 U/L 5-34 Serum or plasma alanine aminotransferase measurement (enzymatic activity/volume) 23 U/L 0-55 Serum or plasma protein measurement (mass/volume) 6.7 g/dL 6.4-8.2 Serum or plasma albumin measurement (mass/volume) 3.7 g/dL 3.2-4.5 CALCIUM CORRECTED 9.3 mg/dL 8.5-10.1 Serum or plasma troponin i.cardiac measu rement (mass/volume) - 08/03/19 14:05 Serum or plasma troponin i.cardiac measurement (mass/v olume) 0.042 ng/mL <0.028 Manual absolute plasma cell count - 07/07 14:05 Blood monocytes/100 leukocytes 4 % NRG Manual blood segmented neutrophils/100 leukocytes 87 % NRG Blood band neutrophils/100 leukocytes 2 % NRG Manual blood lymphocytes/100 leukocytes 7 % NRG Blood anisocytosis detection by light microscopy S LIGHT NRG Blood basophilic stippling detection by light microsco py SLIGHT NRG Serum or plasma lithium measurement (mol es/volume) - 08/03/19 14:05 BNP PT 668.7 pg/mL <100.0 PROCALCITONIN (PCT) - 08/03/19 14:05 PROCALCITONIN (PCT) 0.43 ng/mL <0.10 Serum or plasma triglyceride measurement (mass/volume) - 08/03/19 14:05 Serum or plasma triglyceride measurement (mass/volume) 86 mg/dL <150 Bacterial blood culture - 08/03/19 14:05 Bacterial blood culture NG NRG Arterial blood gas measurement - 9 15:05 Blood pCO2 81 mm[Hg] 35-45 Blood pO2 79 mm[Hg] 79-93 Arterial blood bicarbonate measurement (moles/volume) 38 mmol/L 23-27 Arterial blood base excess by calculation 11.2 mmo l/L -2.5-2.5 Arterial blood oxygen saturation measurement 97 % 94-100 * Inhaled oxygen flow rate N/A NRG Arterial blood pH measurement with patient temperature correction 7.29 7.37-7.43 Arterial blood carbon dioxide, total measurement (mole s/volume) 40.5 mmol/L 21.0-31.0 Body site RIGHT RADIAL NRG Assessment of wrist artery patency prior to arterial p uncture POSITIVE NRG Setting of ventilation mode NO NR G Measurement of body temperature 36.7 NRG Bacterial blood culture - 08/03/19 15:10 Bacterial blood culture NG NRG Methicillin resistant Staphylococcus aur eus (MRSA) screening culture - 08/03/19 17:19 Methicillin resistant Staphylococcus aureus (MRSA) scr eening culture NEG NRG Arterial blood gas measurement - 9 20:40 Blood pCO2 52 mm[Hg] 35-45 Blood pO2 89 mm[Hg] 79-93 Arterial blood bicarbonate measurement (moles/volume) 37 mmol/L 23-27 Arterial blood base excess by calculation 12.2 mmo l/L -2.5-2.5 Arterial blood oxygen saturation measurement 99 % 94-100 * Inhaled oxygen flow rate 50% NRG Arterial blood pH measurement with patient temperature correction 7.46 7.37-7.43 Arterial blood carbon dioxide, total measurement (mole s/volume) 38.6 mmol/L 21.0-31.0 Body site RIGHT RADIAL NRG Assessment of wrist artery patency prior to arterial p uncture YES-POS NRG Setting of ventilation mode YES NR G Measurement of body temperature 36.2 NRG Serum or plasma troponin i.cardiac measu rement (mass/volume) - 08/03/19 22:36 Serum or plasma troponin i.cardiac measurement (mass/v olume) 0.038 ng/mL <0.028 Capillary blood glucose measurement by g lucometer (mass/volume) - 08/04/19 00:18 Capillary blood glucose measurement by glucometer (mas s/volume) 71 mg/dL 70-110 Sputum Gram stain - 08/04/19 02:10 Sputum Gram stain MODERATE YEAST NRG Bacterial sputum culture - 08/04/19 02:1 0 FREE TEXT EXTERNAL SUSCEPTIBILITY REPORTED 08/07 11 :40 NRG QUANTITY OF GROWTH FEW NRG Bacterial sputum culture [id number] NRG Dirithromycin susceptibility test by dis k diffusion - 08/04/19 02:10 Gentamicin susceptibility test by minimum inhibitory c oncentration <= NRG Levofloxacin susceptibility test by minimum inhibitory concentration 2 NRG Tobramycin susceptibility test by minimum inhibitory c oncentration <= NRG Piperacillin/tazobactam susceptibility t est by minimum inhibitory concentration = NRG Ciprofloxacin susceptibility test by minimum inhibitor y concentration <= NRG Meropenem susceptibility test by minimum inhibitory co ncentration 0.5 NRG Aztreonam susceptibility test by minimum inhibitory co ncentration 8 NRG Cefepime susceptibility test by minimum inhibitory con centration 2 NRG Imipenem susceptibility test by minimum inhibitory con centration 2 NRG Ceftazidime susceptibility test by minimum inhibitory concentration <= NRG Dirithromycin susceptibility test by dis k diffusion - 08/04/19 02:10 Gentamicin susceptibility test by minimum inhibitory c oncentration <= NRG Trimethoprim/sulfamethoxazole susceptibi lity test by minimum inhibitoryconcentration S NRG Levofloxacin susceptibility test by minimum inhibitory concentration <= NRG Cefazolin susceptibility test by minimum inhibitory co ncentration > NRG Ceftriaxone susceptibility test by minimum inhibitory concentration <= NRG Piperacillin/tazobactam susceptibility t est by minimum inhibitory concentration S NRG Ciprofloxacin susceptibility test by minimum inhibitor y concentration <= NRG Meropenem susceptibility test by minimum inhibitory co ncentration <= NRG Arterial blood gas measurement - 9 03:40 Blood pCO2 52 mm[Hg] 35-45 Blood pO2 68 mm[Hg] 79-93 Arterial blood bicarbonate measurement (moles/volume) 37 mmol/L 23-27 Arterial blood base excess by calculation 12.0 mmo l/L -2.5-2.5 Arterial blood oxygen saturation measurement 94 % 94-100 * Inhaled oxygen flow rate 40% NRG Arterial blood pH measurement with patient temperature correction 7.46 7.37-7.43 Arterial blood carbon dioxide, total measurement (mole s/volume) 38.2 mmol/L 21.0-31.0 Body site NOT INDICATED NRG Assessment of wrist artery patency prior to arterial p uncture NA NRG Setting of ventilation mode YES NR G Measurement of body temperature 36.6 NRG Complete blood count (CBC) with automate d white blood cell (WBC) differential - 08/04/19 04:10 Blood leukocytes automated count (number/volume) 8.4 10*3/uL 4.3-11.0 Blood erythrocytes automated count (number/volume) 3.00 10*6/uL 4.35-5.85 Venous blood hemoglobin measurement (mass/volume) 8.5 g/dL 13.3-17.7 Blood hematocrit (volume fraction) 28 % 40-54 Automated erythrocyte mean corpuscular volume 94 [ foz_us] 80-99 Automated erythrocyte mean corpuscular h emoglobin (mass per erythrocyte) 28 pg 25-34 Automated erythrocyte mean corpuscular h emoglobin concentration measurement (mass/volume) 30 g/dL 32-36 Automated erythrocyte distribution width ratio 17. 6 % 10.0- 14.5 Automated blood platelet count (count/volume) 134 10*3/uL 130-400 Automated blood platelet mean volume measurement 10.7 [foz_us] 7.4-10.4 Automated blood neutrophils/100 leukocytes 73 % 42-75 Automated blood lymphocytes/100 leukocytes 17 % 12-44 Blood monocytes/100 leukocytes 10 % 0-12 Automated blood eosinophils/100 leukocytes 1 % 0-10 Automated blood basophils/100 leukocytes 0 % 0-10 Blood neutrophils automated count (number/volume) 6.1 10*3 1.8-7.8 Blood lymphocytes automated count (number/volume) 1.4 10*3 1.0-4.0 Blood monocytes automated count (number/volume) 0. 8 10*3 0.0-1.0 Automated eosinophil count 0.1 10*3/uL 0 .0-0.3 Automated blood basophil count (count/volume) 0.0 10*3/uL 0.0-0.1 Whole blood basic metabolic panel - 12/0 09/22 04:10 Serum or plasma sodium measurement (moles/volume) 142 mmol/L 135-145 Serum or plasma potassium measurement (moles/volume) 5.1 mmol/L 3.6-5.0 Serum or plasma chloride measurement (moles/volume) 101 mmol/L 98-107 Carbon dioxide 30 mmol/L 21-32 Serum or plasma anion gap determination (moles/volume) 11 mmol/L 5-14 Serum or plasma urea nitrogen measurement (mass/volume ) 53 mg/dL 7-18 Serum or plasma creatinine measurement (mass/volume) 1.55 mg/dL 0.60-1.30 Serum or plasma urea nitrogen/creatinine mass ratio 34 NRG Serum or plasma creatinine measurement w ith calculation of estimated glomerular filtration rate 45 NRG Serum or plasma glucose measurement (mass/volume) 83 mg/dL 70-105 Serum or plasma calcium measurement (mass/volume) 8.7 mg/dL 8.5-10.1 Serum or plasma phosphate measurement (m ass/volume) - 08/04/19 04:10 Serum or plasma phosphate measurement (mass/volume) 2.5 mg/dL 2.3-4.7 Magnesium - 08/04/19 04:10 Magnesium 1.9 mg/dL 1.6-2.4 Serum or plasma troponin i.cardiac measu rement (mass/volume) - 08/04/19 04:10 Serum or plasma troponin i.cardiac measurement (mass/v olume) 0.041 ng/mL <0.028 Serum or plasma lithium measurement (mol es/volume) - 08/04/19 04:10 BNP PT 352.8 pg/mL <100.0 Capillary blood glucose measurement by g lucometer (mass/volume) - 08/04/19 11:44 Capillary blood glucose measurement by glucometer (mas s/volume) 106 mg/dL 70-110 Capillary blood glucose measurement by g lucometer (mass/volume) - 08/04/19 18:06 Capillary blood glucose measurement by glucometer (mas s/volume) 88 mg/dL 70-110 Capillary blood glucose measurement by g lucometer (mass/volume) - 08/05/19 00:08 Capillary blood glucose measurement by glucometer (mas s/volume) 79 mg/dL 70-110 Complete blood count (CBC) with automate d white blood cell (WBC) differential - 08/05/19 03:15 Blood leukocytes automated count (number/volume) 8.6 10*3/uL 4.3-11.0 Blood erythrocytes automated count (number/volume) 3.15 10*6/uL 4.35-5.85 Venous blood hemoglobin measurement (mass/volume) 8.9 g/dL 13.3-17.7 Blood hematocrit (volume fraction) 29 % 40-54 Automated erythrocyte mean corpuscular volume 93 [ foz_us] 80-99 Automated erythrocyte mean corpuscular h emoglobin (mass per erythrocyte) 28 pg 25-34 Automated erythrocyte mean corpuscular h emoglobin concentration measurement (mass/volume) 30 g/dL 32-36 Automated erythrocyte distribution width ratio 17. 8 % 10.0- 14.5 Automated blood platelet count (count/volume) 143 10*3/uL 130-400 Automated blood platelet mean volume measurement 9.2 [foz_us] 7.4-10.4 Automated blood neutrophils/100 leukocytes 74 % 42-75 Automated blood lymphocytes/100 leukocytes 14 % 12-44 Blood monocytes/100 leukocytes 11 % 0-12 Automated blood eosinophils/100 leukocytes 2 % 0-10 Automated blood basophils/100 leukocytes 0 % 0-10 Blood neutrophils automated count (number/volume) 6.3 10*3 1.8-7.8 Blood lymphocytes automated count (number/volume) 1.2 10*3 1.0-4.0 Blood monocytes automated count (number/volume) 0. 9 10*3 0.0-1.0 Automated eosinophil count 0.1 10*3/uL 0 .0-0.3 Automated blood basophil count (count/volume) 0.0 10*3/uL 0.0-0.1 Whole blood basic metabolic panel - 10/23 03:15 Serum or plasma sodium measurement (moles/volume) 145 mmol/L 135-145 Serum or plasma potassium measurement (moles/volume) 4.8 mmol/L 3.6-5.0 Serum or plasma chloride measurement (moles/volume) 102 mmol/L 98-107 Carbon dioxide 30 mmol/L 21-32 Serum or plasma anion gap determination (moles/volume) 13 mmol/L 5-14 Serum or plasma urea nitrogen measurement (mass/volume ) 45 mg/dL 7-18 Serum or plasma creatinine measurement (mass/volume) 1.45 mg/dL 0.60-1.30 Serum or plasma urea nitrogen/creatinine mass ratio 31 NRG Serum or plasma creatinine measurement w ith calculation of estimated glomerular filtration rate 49 NRG Serum or plasma glucose measurement (mass/volume) 92 mg/dL 70-105 Serum or plasma calcium measurement (mass/volume) 8.7 mg/dL 8.5-10.1 Serum or plasma phosphate measurement (m ass/volume) - 08/05/19 03:15 Serum or plasma phosphate measurement (mass/volume) 4.9 mg/dL 2.3-4.7 Magnesium - 08/05/19 03:15 Magnesium 1.9 mg/dL 1.6-2.4 Arterial blood gas measurement - 9 04:05 Blood pCO2 63 mm[Hg] 35-45 Blood pO2 114 mm[Hg] 79-93 Arterial blood bicarbonate measurement (moles/volume) 35 mmol/L 23-27 Arterial blood base excess by calculation 9.2 mmol /L -2.5-2.5 Arterial blood oxygen saturation measurement 99 % 94-100 * Inhaled oxygen flow rate 30% NRG Arterial blood pH measurement with patient temperature correction 7.36 7.37-7.43 Arterial blood carbon dioxide, total measurement (mole s/volume) 36.9 mmol/L 21.0-31.0 Body site LT RADIAL NRG Assessment of wrist artery patency prior to arterial p uncture YES-POS NRG Setting of ventilation mode YES NR G Measurement of body temperature 36.2 NRG Sputum Gram stain - 08/05/19 07:00 Sputum Gram stain No bacteria seen NRG Bacteria identification in bronchial spe cimen by aerobe culture - 08/05/19 07:00 QUANTITY OF GROWTH . NRG Bacteria identification in bronchial specimen by aerob e culture [id number] NRG FTX;REPORTABLE 200 CFU/ML NRG FREE TEXT ENTRY 2 REFER TO PREVIOUS CULTURE FOR STEWART SC NRG FREE TEXT ENTRY 3 REFER TO PREVIOUS CULTURE FOR STEWART SC NRG Fungus culture - 08/05/19 07:00 QUANTITY OF GROWTH FEW NRG Fungus culture [id number] NRG Mycobacterium species detection by organ ism specific culture - 08/05/19 07:00 Vancomycin trough - 08/05/19 07:45 Vancomycin trough 23.3 ug/mL 10.0-20.0 Serum or plasma triglyceride measurement (mass/volume) - 08/05/19 07:45 Serum or plasma triglyceride measurement (mass/volume) 180 mg/dL <150 Capillary blood glucose measurement by g lucometer (mass/volume) - 08/05/19 11:24 Capillary blood glucose measurement by glucometer (mas s/volume) 125 mg/dL 70-110 Capillary blood glucose measurement by g lucometer (mass/volume) - 08/05/19 18:08 Capillary blood glucose measurement by glucometer (mas s/volume) 83 mg/dL 70-110 Capillary blood glucose measurement by g lucometer (mass/volume) - 08/06/19 00:21 Capillary blood glucose measurement by glucometer (mas s/volume) 74 mg/dL 70-110 Complete blood count (CBC) with automate d white blood cell (WBC) differential - 08/06/19 03:25 Blood leukocytes automated count (number/volume) 7.3 10*3/uL 4.3-11.0 Blood erythrocytes automated count (number/volume) 2.82 10*6/uL 4.35-5.85 Venous blood hemoglobin measurement (mass/volume) 8.0 g/dL 13.3-17.7 Blood hematocrit (volume fraction) 27 % 40-54 Automated erythrocyte mean corpuscular volume 94 [ foz_us] 80-99 Automated erythrocyte mean corpuscular h emoglobin (mass per erythrocyte) 28 pg 25-34 Automated erythrocyte mean corpuscular h emoglobin concentration measurement (mass/volume) 30 g/dL 32-36 Automated erythrocyte distribution width ratio 18. 1 % 10.0- 14.5 Automated blood platelet count (count/volume) 119 10*3/uL 130-400 Automated blood platelet mean volume measurement 9.5 [foz_us] 7.4-10.4 Automated blood neutrophils/100 leukocytes 72 % 42-75 Automated blood lymphocytes/100 leukocytes 15 % 12-44 Blood monocytes/100 leukocytes 12 % 0-12 Automated blood eosinophils/100 leukocytes 2 % 0-10 Automated blood basophils/100 leukocytes 0 % 0-10 Blood neutrophils automated count (number/volume) 5.2 10*3 1.8-7.8 Blood lymphocytes automated count (number/volume) 1.1 10*3 1.0-4.0 Blood monocytes automated count (number/volume) 0. 9 10*3 0.0-1.0 Automated eosinophil count 0.1 10*3/uL 0 .0-0.3 Automated blood basophil count (count/volume) 0.0 10*3/uL 0.0-0.1 Whole blood basic metabolic panel - 11/20 03:25 Serum or plasma sodium measurement (moles/volume) 145 mmol/L 135-145 Serum or plasma potassium measurement (moles/volume) 4.3 mmol/L 3.6-5.0 Serum or plasma chloride measurement (moles/volume) 101 mmol/L 98-107 Carbon dioxide 33 mmol/L 21-32 Serum or plasma anion gap determination (moles/volume) 11 mmol/L 5-14 Serum or plasma urea nitrogen measurement (mass/volume ) 32 mg/dL 7-18 Serum or plasma creatinine measurement (mass/volume) 1.30 mg/dL 0.60-1.30 Serum or plasma urea nitrogen/creatinine mass ratio 25 NRG Serum or plasma creatinine measurement w ith calculation of estimated glomerular filtration rate 56 NRG Serum or plasma glucose measurement (mass/volume) 76 mg/dL 70-105 Serum or plasma calcium measurement (mass/volume) 8.4 mg/dL 8.5-10.1 Serum or plasma phosphate measurement (m ass/volume) - 08/06/19 03:25 Serum or plasma phosphate measurement (mass/volume) 4.0 mg/dL 2.3-4.7 Magnesium - 08/06/19 03:25 Magnesium 1.8 mg/dL 1.6-2.4 Serum or plasma lithium measurement (mol es/volume) - 08/06/19 03:25 BNP PT 149.4 pg/mL <100.0 Serum or plasma troponin i.cardiac measu rement (mass/volume) - 08/06/19 03:25 Serum or plasma troponin i.cardiac measurement (mass/v olume) 0.070 ng/mL <0.028 Arterial blood gas measurement - 9 03:36 Blood pCO2 61 mm[Hg] 35-45 Blood pO2 61 mm[Hg] 79-93 Arterial blood bicarbonate measurement (moles/volume) 36 mmol/L 23-27 Arterial blood base excess by calculation 11.1 mmo l/L -2.5-2.5 Arterial blood oxygen saturation measurement 88 % 94-100 * Inhaled oxygen flow rate 30% NRG Arterial blood pH measurement with patient temperature correction 7.39 7.37-7.43 Arterial blood carbon dioxide, total measurement (mole s/volume) 38.3 mmol/L 21.0-31.0 Body site RIGHT RADIAL NRG Assessment of wrist artery patency prior to arterial p uncture YES-POS NRG Setting of ventilation mode YES NR G Measurement of body temperature 36.9 NRG Serum or plasma troponin i.cardiac measu rement (mass/volume) - 08/06/19 08:12 Serum or plasma troponin i.cardiac measurement (mass/v olume) 0.082 ng/mL <0.028 Arterial blood gas measurement - 9 10:13 Blood pCO2 55 mm[Hg] 35-45 Blood pO2 43 mm[Hg] 79-93 Arterial blood bicarbonate measurement (moles/volume) 35 mmol/L 23-27 Arterial blood base excess by calculation 10.3 mmo l/L -2.5-2.5 Arterial blood oxygen saturation measurement 80 % 94-100 * Inhaled oxygen flow rate 30% NRG Arterial blood pH measurement with patient temperature correction 7.42 7.37-7.43 Arterial blood carbon dioxide, total measurement (mole s/volume) 37.1 mmol/L 21.0-31.0 Body site LR NRG Assessment of wrist artery patency prior to arterial p uncture YES-POS NRG Setting of ventilation mode YES NR G Measurement of body temperature 36.1 NRG Capillary blood glucose measurement by g lucometer (mass/volume) - 08/06/19 11:49 Capillary blood glucose measurement by glucometer (mas s/volume) 88 mg/dL 70-110 RED CELLS LEUKO REDUCED AS1 - 08/06/19 1 2:50 RED CELLS LEUKO REDUCED AS1 T RANSFUSED 08/06/19 [id number] NRG Blood type T Indirect antibody screen mohsen roach - 08/06/19 12:50 WRISTBAND NUMBER [id number] NRG ABO+Rh group AP NRG Blood group antibody screen NEGATIVE NR G Capillary blood glucose measurement by g lucometer (mass/volume) - 08/06/19 18:26 Capillary blood glucose measurement by glucometer (mas s/volume) 84 mg/dL 70-110 Capillary blood glucose measurement by g lucometer (mass/volume) - 08/07/19 00:14 Capillary blood glucose measurement by glucometer (mas s/volume) 101 mg/dL 70-110 Whole blood hemoglobin and hematocrit mohsen roach - 08/07/19 00:17 Venous blood hemoglobin measurement (mass/volume) 10.2 g/dL 13.3-17.7 Blood hematocrit (volume fraction) 34 % 40-54 Complete blood count (CBC) with automate d white blood cell (WBC) differential - 08/07/19 03:40 Blood leukocytes automated count (number/volume) 15.5 10*3/uL 4.3-11.0 Blood erythrocytes automated count (number/volume) 3.73 10*6/uL 4.35-5.85 Venous blood hemoglobin measurement (mass/volume) 10.7 g/dL 13.3-17.7 Blood hematocrit (volume fraction) 35 % 40-54 Automated erythrocyte mean corpuscular volume 94 [ foz_us] 80-99 Automated erythrocyte mean corpuscular h emoglobin (mass per erythrocyte) 29 pg 25-34 Automated erythrocyte mean corpuscular h emoglobin concentration measurement (mass/volume) 30 g/dL 32-36 Automated erythrocyte distribution width ratio 17. 7 % 10.0- 14.5 Automated blood platelet count (count/volume) 135 10*3/uL 130-400 Automated blood platelet mean volume measurement 9.8 [foz_us] 7.4-10.4 Automated blood neutrophils/100 leukocytes 88 % 42-75 Automated blood lymphocytes/100 leukocytes 4 % 12-44 Blood monocytes/100 leukocytes 8 % 0-12 Automated blood eosinophils/100 leukocytes 0 % 0-10 Automated blood basophils/100 leukocytes 0 % 0-10 Blood neutrophils automated count (number/volume) 13.7 10*3 1.8-7.8 Blood lymphocytes automated count (number/volume) 0.6 10*3 1.0-4.0 Blood monocytes automated count (number/volume) 1. 2 10*3 0.0-1.0 Automated eosinophil count 0.0 10*3/uL 0 .0-0.3 Automated blood basophil count (count/volume) 0.0 10*3/uL 0.0-0.1 Comprehensive metabolic panel - 08/07/19 03:40 Serum or plasma sodium measurement (moles/volume) 147 mmol/L 135-145 Serum or plasma potassium measurement (moles/volume) 4.7 mmol/L 3.6-5.0 Serum or plasma chloride measurement (moles/volume) 101 mmol/L 98-107 Carbon dioxide 31 mmol/L 21-32 Serum or plasma anion gap determination (moles/volume) 15 mmol/L 5-14 Serum or plasma urea nitrogen measurement (mass/volume ) 31 mg/dL 7-18 Serum or plasma creatinine measurement (mass/volume) 1.38 mg/dL 0.60-1.30 Serum or plasma urea nitrogen/creatinine mass ratio 22 NRG Serum or plasma creatinine measurement w ith calculation of estimated glomerular filtration rate 52 NRG Serum or plasma glucose measurement (mass/volume) 101 mg/dL 70-105 Serum or plasma calcium measurement (mass/volume) 9.5 mg/dL 8.5-10.1 Serum or plasma total bilirubin measurement (mass/volu me) 0.5 mg/dL 0.1-1.0 Serum or plasma alkaline phosphatase lourdes surement (enzymatic activity/volume) 102 U/L 40-136 Serum or plasma aspartate aminotransfera se measurement (enzymatic activity/volume) 20 U/L 5-34 Serum or plasma alanine aminotransferase measurement (enzymatic activity/volume) 14 U/L 0-55 Serum or plasma protein measurement (mass/volume) 6.9 g/dL 6.4-8.2 Serum or plasma albumin measurement (mass/volume) 3.4 g/dL 3.2-4.5 CALCIUM CORRECTED 10.0 mg/dL 8.5-10.1 Serum or plasma phosphate measurement (m ass/volume) - 08/07/19 03:40 Serum or plasma phosphate measurement (mass/volume) 6.2 mg/dL 2.3-4.7 Magnesium - 08/07/19 03:40 Magnesium 2.0 mg/dL 1.6-2.4 Manual absolute plasma cell count - 12/21 03:40 Blood monocytes/100 leukocytes 11 % NRG Manual blood segmented neutrophils/100 leukocytes 83 % NRG Blood band neutrophils/100 leukocytes 3 % NRG Manual blood lymphocytes/100 leukocytes 3 % NRG Blood erythrocyte morphology finding identification NORMAL NRG Blood stomatocytes detection by light microscopy S LIGHT NRG Serum or plasma triglyceride measurement (mass/volume) - 08/07/19 03:40 Serum or plasma triglyceride measurement (mass/volume) 241 mg/dL <150 Sputum Gram stain - 08/07/19 03:40 Sputum Gram stain relevant, interpret with caution NRG Bacterial sputum culture - 08/07/19 03:4 0 FREE TEXT EXTERNAL SUSCEPTIBILITY REPORTED 08/10/19 11:45 NRG QUANTITY OF GROWTH Rare NRG Bacterial sputum culture [id number] NRG Dirithromycin susceptibility test by dis k diffusion - 08/07/19 03:40 Gentamicin susceptibility test by minimum inhibitory c oncentration <= NRG Levofloxacin susceptibility test by minimum inhibitory concentration <= NRG Tobramycin susceptibility test by minimum inhibitory c oncentration <= NRG Piperacillin/tazobactam susceptibility t est by minimum inhibitory concentration = NRG Ciprofloxacin susceptibility test by minimum inhibitor y concentration <= NRG Meropenem susceptibility test by minimum inhibitory co ncentration 0.5 NRG Aztreonam susceptibility test by minimum inhibitory co ncentration 4 NRG Cefepime susceptibility test by minimum inhibitory con centration 2 NRG Imipenem susceptibility test by minimum inhibitory con centration 2 NRG Ceftazidime susceptibility test by minimum inhibitory concentration <= NRG Arterial blood gas measurement - 9 03:48 Blood pCO2 95 mm[Hg] 35-45 Blood pO2 92 mm[Hg] 79-93 Arterial blood bicarbonate measurement (moles/volume) 37 mmol/L 23-27 Arterial blood base excess by calculation 9.0 mmol /L -2.5-2.5 Arterial blood oxygen saturation measurement 96 % 94-100 * Inhaled oxygen flow rate 70% NRG Arterial blood pH measurement with patient temperature correction 7.21 7.37-7.43 Arterial blood carbon dioxide, total measurement (mole s/volume) 39.8 mmol/L 21.0-31.0 Body site RIGHT RADIAL NRG Assessment of wrist artery patency prior to arterial p uncture YES-POS NRG Setting of ventilation mode NO NR G Measurement of body temperature 36.7 NRG Bacterial blood culture - 08/07/19 04:40 Bacterial blood culture NG NRG Bacterial blood culture - 08/07/19 04:45 Bacterial blood culture NG NRG Bacterial blood culture - 08/07/19 05:05 Bacterial blood culture NG NRG Complete urinalysis with reflex to cultu re - 08/07/19 05:30 Urine color determination YELLOW NRG Urine clarity determination CLEAR NR G Urine pH measurement by test strip 5.0 5-9 Specific gravity of urine by test strip >= 1.016-1.022 Urine protein assay by test strip, semi-quantitative 3+ NEGATIVE Urine glucose detection by automated test strip NE GATIVE NEGATIVE Erythrocytes detection in urine sediment by light micr oscopy 1+ NEGATIVE Urine ketones detection by automated test strip NE GATIVE NEGATIVE Urine nitrite detection by test strip NEGATIVE NEGATIVE Urine total bilirubin detection by test strip NEGA TIVE NEGATIVE Urine urobilinogen measurement by automated test strip (mass/volume) 0.2 mg/dL < = 1.0 Urine leukocyte esterase detection by dipstick NEG ATIVE NEGATIVE Automated urine sediment erythrocyte cou nt by microscopy (number/high power field) [HPF] NRG Automated urine sediment leukocyte count by microscopy (number/high power field) [HPF] NRG Bacteria detection in urine sediment by light microsco py MODERATE NRG Squamous epithelial cells detection in u rine sediment by light microscopy 2-5 NRG Crystals detection in urine sediment by light microsco py PRESENT NRG Casts detection in urine sediment by light microscopy PRESENT NRG Mucus detection in urine sediment by light microscopy MODERATE NRG Complete urinalysis with reflex to culture YES NRG Hyaline casts detection in urine sediment by light jenny roscopy 0-2 NRG Uric acid crystals detection in urine sediment by ligh t microscopy LARGE NRG Bacterial urine culture - 08/07/19 05:30 Bacterial urine culture NG NRG Arterial blood gas measurement - 9 06:24 Blood pCO2 91 mm[Hg] 35-45 Blood pO2 46 mm[Hg] 79-93 Arterial blood bicarbonate measurement (moles/volume) 37 mmol/L 23-27 Arterial blood base excess by calculation 9.6 mmol /L -2.5-2.5 Arterial blood oxygen saturation measurement 74 % 94-100 * Inhaled oxygen flow rate 100% NRG Arterial blood pH measurement with patient temperature correction 7.23 7.37-7.43 Arterial blood carbon dioxide, total measurement (mole s/volume) 40.2 mmol/L 21.0-31.0 Body site RIGHT RADIAL NRG Assessment of wrist artery patency prior to arterial p uncture YES-POS NRG Setting of ventilation mode YES NR G Measurement of body temperature 36.0 NRG Arterial blood gas measurement - 9 09:25 Blood pCO2 81 mm[Hg] 35-45 Blood pO2 79 mm[Hg] 79-93 Arterial blood bicarbonate measurement (moles/volume) 36 mmol/L 23-27 Arterial blood base excess by calculation 9.2 mmol /L -2.5-2.5 Arterial blood oxygen saturation measurement 95 % 94-100 * Inhaled oxygen flow rate 60% NRG Arterial blood pH measurement with patient temperature correction 7.27 7.37-7.43 Arterial blood carbon dioxide, total measurement (mole s/volume) 38.9 mmol/L 21.0-31.0 Body site RIGHT RADIAL NRG Assessment of wrist artery patency prior to arterial p uncture POSITIVE NRG Setting of ventilation mode YES NR G Measurement of body temperature 36.1 NRG Arterial blood gas measurement - 9 11:26 Blood pCO2 67 mm[Hg] 35-45 Blood pO2 78 mm[Hg] 79-93 Arterial blood bicarbonate measurement (moles/volume) 34 mmol/L 23-27 Arterial blood base excess by calculation 8.0 mmol /L -2.5-2.5 Arterial blood oxygen saturation measurement 97 % 94-100 * Inhaled oxygen flow rate 50% NRG Arterial blood pH measurement with patient temperature correction 7.32 7.37-7.43 Arterial blood carbon dioxide, total measurement (mole s/volume) 36.2 mmol/L 21.0-31.0 Body site RIGHT RADIAL NRG Assessment of wrist artery patency prior to arterial p uncture POSITIVE NRG Setting of ventilation mode YES NR G Measurement of body temperature 36.2 NRG Capillary blood glucose measurement by g lucometer (mass/volume) - 08/07/19 11:29 Capillary blood glucose measurement by glucometer (mas s/volume) 117 mg/dL 70-110 Complete blood count (CBC) with automate d white blood cell (WBC) differential - 08/15/19 06:25 Blood leukocytes automated count (number/volume) 5.6 10*3/uL 4.3-11.0 Blood erythrocytes automated count (number/volume) 3.13 10*6/uL 4.35-5.85 Venous blood hemoglobin measurement (mass/volume) 8.9 g/dL 13.3-17.7 Blood hematocrit (volume fraction) 30 % 40-54 Automated erythrocyte mean corpuscular volume 96 [ foz_us] 80-99 Automated erythrocyte mean corpuscular h emoglobin (mass per erythrocyte) 28 pg 25-34 Automated erythrocyte mean corpuscular h emoglobin concentration measurement (mass/volume) 30 g/dL 32-36 Automated erythrocyte distribution width ratio 15. 6 % 10.0- 14.5 Automated blood platelet count (count/volume) 125 10*3/uL 130-400 Automated blood platelet mean volume measurement 9.8 [foz_us] 7.4-10.4 Automated blood neutrophils/100 leukocytes 77 % 42-75 Automated blood lymphocytes/100 leukocytes 14 % 12-44 Blood monocytes/100 leukocytes 7 % 0-12 Automated blood eosinophils/100 leukocytes 2 % 0-10 Automated blood basophils/100 leukocytes 0 % 0-10 Blood neutrophils automated count (number/volume) 4.3 10*3 1.8-7.8 Blood lymphocytes automated count (number/volume) 0.8 10*3 1.0-4.0 Blood monocytes automated count (number/volume) 0. 4 10*3 0.0-1.0 Automated eosinophil count 0.1 10*3/uL 0 .0-0.3 Automated blood basophil count (count/volume) 0.0 10*3/uL 0.0-0.1 Comprehensive metabolic panel - 08/15/19 06:25 Serum or plasma sodium measurement (moles/volume) 150 mmol/L 135-145 Serum or plasma potassium measurement (moles/volume) 3.9 mmol/L 3.6-5.0 Serum or plasma chloride measurement (moles/volume) 96 mmol/L 98-107 Carbon dioxide 43 mmol/L 21-32 Serum or plasma anion gap determination (moles/volume) 11 mmol/L 5-14 Serum or plasma urea nitrogen measurement (mass/volume ) 31 mg/dL 7-18 Serum or plasma creatinine measurement (mass/volume) 0.82 mg/dL 0.60-1.30 Serum or plasma urea nitrogen/creatinine mass ratio 38 NRG Serum or plasma creatinine measurement w ith calculation of estimated glomerular filtration rate > NRG Serum or plasma glucose measurement (mass/volume) 82 mg/dL 70-105 Serum or plasma calcium measurement (mass/volume) 9.2 mg/dL 8.5-10.1 Serum or plasma total bilirubin measurement (mass/volu me) 0.3 mg/dL 0.1-1.0 Serum or plasma alkaline phosphatase lourdes surement (enzymatic activity/volume) 93 U/L 40-136 Serum or plasma aspartate aminotransfera se measurement (enzymatic activity/volume) 32 U/L 5-34 Serum or plasma alanine aminotransferase measurement (enzymatic activity/volume) 35 U/L 0-55 Serum or plasma protein measurement (mass/volume) 6.0 g/dL 6.4-8.2 Serum or plasma albumin measurement (mass/volume) 2.9 g/dL 3.2-4.5 CALCIUM CORRECTED 10.1 mg/dL 8.5-10.1 Serum or plasma lithium measurement (mol es/volume) - 08/15/19 06:25 BNP PT 424.3 pg/mL <100.0 IRON TEST - 08/15/19 06:25 Serum or plasma iron measurement (mass/volume) 50 % 40-180 Arterial blood gas measurement - 9 09:12 Blood pCO2 90 mm[Hg] 35-45 Blood pO2 69 mm[Hg] 79-93 Arterial blood bicarbonate measurement (moles/volume) 47 mmol/L 23-27 Arterial blood base excess by calculation 20.5 mmo l/L -2.5-2.5 Arterial blood oxygen saturation measurement 94 % 94-100 * Inhaled oxygen flow rate 5L NRG Arterial blood pH measurement with patient temperature correction 7.34 7.37-7.43 Arterial blood carbon dioxide, total measurement (mole s/volume) 50.2 mmol/L 21.0-31.0 Body site LEFT RADIAL NRG Assessment of wrist artery patency prior to arterial p uncture YES-POS NRG Setting of ventilation mode NO NR G Measurement of body temperature 36.8 NRG Methicillin resistant Staphylococcus aur eus (MRSA) screening culture - 08/15/19 11:30 Methicillin resistant Staphylococcus aureus (MRSA) scr eening culture NEG NRG Capillary blood glucose measurement by g lucometer (mass/volume) - 08/15/19 11:53 Capillary blood glucose measurement by glucometer (mas s/volume) 106 mg/dL 70-110 Capillary blood glucose measurement by g lucometer (mass/volume) - 08/15/19 15:35 Capillary blood glucose measurement by glucometer (mas s/volume) 130 mg/dL 70-110 Capillary blood glucose measurement by g lucometer (mass/volume) - 08/15/19 20:15 Capillary blood glucose measurement by glucometer (mas s/volume) 111 mg/dL 70-110 Arterial blood gas measurement - 9 03:30 Blood pCO2 73 mm[Hg] 35-45 Blood pO2 48 mm[Hg] 79-93 Arterial blood bicarbonate measurement (moles/volume) 47 mmol/L 23-27 Arterial blood base excess by calculation 21.2 mmo l/L -2.5-2.5 Arterial blood oxygen saturation measurement 80 % 94-100 * Inhaled oxygen flow rate 60% NRG Arterial blood pH measurement with patient temperature correction 7.42 7.37-7.43 Arterial blood carbon dioxide, total measurement (mole s/volume) 49.6 mmol/L 21.0-31.0 Body site LEFT RADIAL NRG Assessment of wrist artery patency prior to arterial p uncture YES-POS NRG Setting of ventilation mode NO NR G Measurement of body temperature 36.5 NRG Complete blood count (CBC) with automate d white blood cell (WBC) differential - 08/16/19 03:50 Blood leukocytes automated count (number/volume) 6.2 10*3/uL 4.3-11.0 Blood erythrocytes automated count (number/volume) 3.01 10*6/uL 4.35-5.85 Venous blood hemoglobin measurement (mass/volume) 8.6 g/dL 13.3-17.7 Blood hematocrit (volume fraction) 28 % 40-54 Automated erythrocyte mean corpuscular volume 94 [ foz_us] 80-99 Automated erythrocyte mean corpuscular h emoglobin (mass per erythrocyte) 29 pg 25-34 Automated erythrocyte mean corpuscular h emoglobin concentration measurement (mass/volume) 30 g/dL 32-36 Automated erythrocyte distribution width ratio 16. 0 % 10.0- 14.5 Automated blood platelet count (count/volume) 138 10*3/uL 130-400 Automated blood platelet mean volume measurement 9.0 [foz_us] 7.4-10.4 Automated blood neutrophils/100 leukocytes 70 % 42-75 Automated blood lymphocytes/100 leukocytes 19 % 12-44 Blood monocytes/100 leukocytes 9 % 0-12 Automated blood eosinophils/100 leukocytes 2 % 0-10 Automated blood basophils/100 leukocytes 0 % 0-10 Blood neutrophils automated count (number/volume) 4.3 10*3 1.8-7.8 Blood lymphocytes automated count (number/volume) 1.2 10*3 1.0-4.0 Blood monocytes automated count (number/volume) 0. 5 10*3 0.0-1.0 Automated eosinophil count 0.2 10*3/uL 0 .0-0.3 Automated blood basophil count (count/volume) 0.0 10*3/uL 0.0-0.1 Whole blood basic metabolic panel - 08/04 11/20 03:50 Serum or plasma sodium measurement (moles/volume) 145 mmol/L 135-145 Serum or plasma potassium measurement (moles/volume) 3.9 mmol/L 3.6-5.0 Serum or plasma chloride measurement (moles/volume) 92 mmol/L 98-107 Carbon dioxide 43 mmol/L 21-32 Serum or plasma anion gap determination (moles/volume) 10 mmol/L 5-14 Serum or plasma urea nitrogen measurement (mass/volume ) 30 mg/dL 7-18 Serum or plasma creatinine measurement (mass/volume) 0.91 mg/dL 0.60-1.30 Serum or plasma urea nitrogen/creatinine mass ratio 33 NRG Serum or plasma creatinine measurement w ith calculation of estimated glomerular filtration rate > NRG Serum or plasma glucose measurement (mass/volume) 91 mg/dL 70-105 Serum or plasma calcium measurement (mass/volume) 9.0 mg/dL 8.5-10.1 Serum or plasma phosphate measurement (m ass/volume) - 08/16/19 03:50 Serum or plasma phosphate measurement (mass/volume) 2.5 mg/dL 2.3-4.7 Magnesium - 08/16/19 03:50 Magnesium 1.7 mg/dL 1.6-2.4 Serum or plasma lithium measurement (mol es/volume) - 08/16/19 03:50 BNP PT 405.0 pg/mL <100.0 Capillary blood glucose measurement by g lucometer (mass/volume) - 08/16/19 11:30 Capillary blood glucose measurement by glucometer (mas s/volume) 105 mg/dL 70-110 Capillary blood glucose measurement by g lucometer (mass/volume) - 08/16/19 15:52 Capillary blood glucose measurement by glucometer (mas s/volume) 85 mg/dL 70-110 Capillary blood glucose measurement by g lucometer (mass/volume) - 08/16/19 19:38 Capillary blood glucose measurement by glucometer (mas s/volume) 106 mg/dL 70-110 Complete blood count (CBC) with automate d white blood cell (WBC) differential - 08/17/19 03:27 Blood leukocytes automated count (number/volume) 4.8 10*3/uL 4.3-11.0 Blood erythrocytes automated count (number/volume) 2.91 10*6/uL 4.35-5.85 Venous blood hemoglobin measurement (mass/volume) 8.4 g/dL 13.3-17.7 Blood hematocrit (volume fraction) 27 % 40-54 Automated erythrocyte mean corpuscular volume 94 [ foz_us] 80-99 Automated erythrocyte mean corpuscular h emoglobin (mass per erythrocyte) 29 pg 25-34 Automated erythrocyte mean corpuscular h emoglobin concentration measurement (mass/volume) 31 g/dL 32-36 Automated erythrocyte distribution width ratio 15. 9 % 10.0- 14.5 Automated blood platelet count (count/volume) 151 10*3/uL 130-400 Automated blood platelet mean volume measurement 9.3 [foz_us] 7.4-10.4 Automated blood neutrophils/100 leukocytes 63 % 42-75 Automated blood lymphocytes/100 leukocytes 27 % 12-44 Blood monocytes/100 leukocytes 9 % 0-12 Automated blood eosinophils/100 leukocytes 2 % 0-10 Automated blood basophils/100 leukocytes 0 % 0-10 Blood neutrophils automated count (number/volume) 3.0 10*3 1.8-7.8 Blood lymphocytes automated count (number/volume) 1.3 10*3 1.0-4.0 Blood monocytes automated count (number/volume) 0. 4 10*3 0.0-1.0 Automated eosinophil count 0.1 10*3/uL 0 .0-0.3 Automated blood basophil count (count/volume) 0.0 10*3/uL 0.0-0.1 Whole blood basic metabolic panel - 08/04 12/21 03:27 Serum or plasma sodium measurement (moles/volume) 144 mmol/L 135-145 Serum or plasma potassium measurement (moles/volume) 3.7 mmol/L 3.6-5.0 Serum or plasma chloride measurement (moles/volume) 93 mmol/L 98-107 Carbon dioxide 40 mmol/L 21-32 Serum or plasma anion gap determination (moles/volume) 11 mmol/L 5-14 Serum or plasma urea nitrogen measurement (mass/volume ) 25 mg/dL 7-18 Serum or plasma creatinine measurement (mass/volume) 0.87 mg/dL 0.60-1.30 Serum or plasma urea nitrogen/creatinine mass ratio 29 NRG Serum or plasma creatinine measurement w ith calculation of estimated glomerular filtration rate > NRG Serum or plasma glucose measurement (mass/volume) 85 mg/dL 70-105 Serum or plasma calcium measurement (mass/volume) 9.1 mg/dL 8.5-10.1 Serum or plasma phosphate measurement (m ass/volume) - 08/17/19 03:27 Serum or plasma phosphate measurement (mass/volume) 2.8 mg/dL 2.3-4.7 Capillary blood glucose measurement by g lucometer (mass/volume) - 08/17/19 11:28 Capillary blood glucose measurement by glucometer (mas s/volume) 133 mg/dL 70-110 Arterial blood gas measurement - 9 08:53 Blood pCO2 92 mm[Hg] 35-45 Blood pO2 103 mm[Hg] 79-93 Arterial blood bicarbonate measurement (moles/volume) 45 mmol/L 23-27 Arterial blood base excess by calculation 17.3 mmo l/L -2.5-2.5 Arterial blood oxygen saturation measurement 98 % 94-100 * Inhaled oxygen flow rate 50% BIPAP NR G Arterial blood pH measurement with patient temperature correction 7.30 7.37-7.43 Arterial blood carbon dioxide, total measurement (mole s/volume) 47.7 mmol/L 21.0-31.0 Body site LT RADIAL NRG Assessment of wrist artery patency prior to arterial p uncture YES-POS NRG Setting of ventilation mode NO NR G Measurement of body temperature 35.7 NRG Complete blood count (CBC) with automate d white blood cell (WBC) differential - 08/18/19 08:54 Blood leukocytes automated count (number/volume) 8.2 10*3/uL 4.3-11.0 Blood erythrocytes automated count (number/volume) 3.31 10*6/uL 4.35-5.85 Venous blood hemoglobin measurement (mass/volume) 9.5 g/dL 13.3-17.7 Blood hematocrit (volume fraction) 31 % 40-54 Automated erythrocyte mean corpuscular volume 93 [ foz_us] 80-99 Automated erythrocyte mean corpuscular h emoglobin (mass per erythrocyte) 29 pg 25-34 Automated erythrocyte mean corpuscular h emoglobin concentration measurement (mass/volume) 31 g/dL 32-36 Automated erythrocyte distribution width ratio 16. 0 % 10.0- 14.5 Automated blood platelet count (count/volume) 248 10*3/uL 130-400 Automated blood platelet mean volume measurement 9.6 [foz_us] 7.4-10.4 Automated blood neutrophils/100 leukocytes 80 % 42-75 Automated blood lymphocytes/100 leukocytes 13 % 12-44 Blood monocytes/100 leukocytes 5 % 0-12 Automated blood eosinophils/100 leukocytes 1 % 0-10 Automated blood basophils/100 leukocytes 0 % 0-10 Blood neutrophils automated count (number/volume) 6.6 10*3 1.8-7.8 Blood lymphocytes automated count (number/volume) 1.1 10*3 1.0-4.0 Blood monocytes automated count (number/volume) 0. 4 10*3 0.0-1.0 Automated eosinophil count 0.1 10*3/uL 0 .0-0.3 Automated blood basophil count (count/volume) 0.0 10*3/uL 0.0-0.1 PT panel in platelet poor plasma by coag ulation assay - 08/18/19 08:54 Prothrombin time (PT) in platelet poor plasma by coagu lation assay 12.7 s 12.2-14.7 INR in platelet poor plasma or blood by coagulation as say 0.9 0.8-1.4 Activated partial thromboplastin time (a PTT) in platelet poor plasma bycoagulation assay - 08/18/19 08:54 Activated partial thromboplastin time (a PTT) in platelet poor plasma bycoagulation assay 27 s 24-35 Comprehensive metabolic panel - 08/18/19 08:54 Serum or plasma sodium measurement (moles/volume) 140 mmol/L 135-145 Serum or plasma potassium measurement (moles/volume) 5.2 mmol/L 3.6-5.0 Serum or plasma chloride measurement (moles/volume) 91 mmol/L 98-107 Carbon dioxide 34 mmol/L 21-32 Serum or plasma anion gap determination (moles/volume) 15 mmol/L 5-14 Serum or plasma urea nitrogen measurement (mass/volume ) 23 mg/dL 7-18 Serum or plasma creatinine measurement (mass/volume) 0.98 mg/dL 0.60-1.30 Serum or plasma urea nitrogen/creatinine mass ratio 23 NRG Serum or plasma creatinine measurement w ith calculation of estimated glomerular filtration rate > NRG Serum or plasma glucose measurement (mass/volume) 115 mg/dL 70-105 Serum or plasma calcium measurement (mass/volume) 9.5 mg/dL 8.5-10.1 Serum or plasma total bilirubin measurement (mass/volu me) 0.3 mg/dL 0.1-1.0 Serum or plasma alkaline phosphatase lourdes surement (enzymatic activity/volume) 126 U/L 40-136 Serum or plasma aspartate aminotransfera se measurement (enzymatic activity/volume) 48 U/L 5-34 Serum or plasma alanine aminotransferase measurement (enzymatic activity/volume) 47 U/L 0-55 Serum or plasma protein measurement (mass/volume) 7.9 g/dL 6.4-8.2 Serum or plasma albumin measurement (mass/volume) 3.5 g/dL 3.2-4.5 CALCIUM CORRECTED 9.9 mg/dL 8.5-10.1 Magnesium - 08/18/19 08:54 Magnesium 2.1 mg/dL 1.6-2.4 Serum or plasma creatine kinase measurem ent (enzymatic activity/volume) - 08/18/19 08:54 Serum or plasma creatine kinase measurem ent (enzymatic activity/volume) 27 U/L 30-200 Serum or plasma creatine kinase MB measu rement (enzymatic activity/volume) - 08/18/19 08:54 Serum or plasma creatine kinase MB measu rement (enzymatic activity/volume) 2.1 ng/mL <6.6 Serum or plasma troponin i.cardiac measu rement (mass/volume) - 08/18/19 08:54 Serum or plasma troponin i.cardiac measurement (mass/v olume) 0.034 ng/mL <0.028 Serum or plasma lithium measurement (mol es/volume) - 08/18/19 08:54 BNP PT 373.8 pg/mL <100.0 Arterial blood gas measurement - 9 09:46 Blood pCO2 78 mm[Hg] 35-45 Blood pO2 61 mm[Hg] 79-93 Arterial blood bicarbonate measurement (moles/volume) 44 mmol/L 23-27 Arterial blood base excess by calculation 17.7 mmo l/L -2.5-2.5 Arterial blood oxygen saturation measurement 92 % 94-100 * Inhaled oxygen flow rate 40% NRG Arterial blood pH measurement with patient temperature correction 7.37 7.37-7.43 Arterial blood carbon dioxide, total measurement (mole s/volume) 46.5 mmol/L 21.0-31.0 Body site L RAD NRG Assessment of wrist artery patency prior to arterial p uncture YES-POS NRG Setting of ventilation mode YES NR G Measurement of body temperature 36.5 NRG Methicillin resistant Staphylococcus aur eus (MRSA) screening culture - 08/18/19 12:15 Methicillin resistant Staphylococcus aureus (MRSA) scr eening culture NEG NRG Capillary blood glucose measurement by g lucometer (mass/volume) - 08/18/19 15:58 Capillary blood glucose measurement by glucometer (mas s/volume) 180 mg/dL 70-110 Capillary blood glucose measurement by g lucometer (mass/volume) - 08/18/19 20:45 Capillary blood glucose measurement by glucometer (mas s/volume) 133 mg/dL 70-110 Arterial blood gas measurement - 9 02:42 Blood pCO2 60 mm[Hg] 35-45 Blood pO2 95 mm[Hg] 79-93 Arterial blood bicarbonate measurement (moles/volume) 44 mmol/L 23-27 Arterial blood base excess by calculation 18.2 mmo l/L -2.5-2.5 Arterial blood oxygen saturation measurement 98 % 94-100 * Inhaled oxygen flow rate 30% NRG Arterial blood pH measurement with patient temperature correction 7.47 7.37-7.43 Arterial blood carbon dioxide, total measurement (mole s/volume) 45.4 mmol/L 21.0-31.0 Body site LEFT RADIAL NRG Assessment of wrist artery patency prior to arterial p uncture YES-POS NRG Setting of ventilation mode NO NR G Measurement of body temperature 36.2 NRG Complete blood count (CBC) with automate d white blood cell (WBC) differential - 08/19/19 03:20 Blood leukocytes automated count (number/volume) 6.9 10*3/uL 4.3-11.0 Blood erythrocytes automated count (number/volume) 3.08 10*6/uL 4.35-5.85 Venous blood hemoglobin measurement (mass/volume) 8.7 g/dL 13.3-17.7 Blood hematocrit (volume fraction) 28 % 40-54 Automated erythrocyte mean corpuscular volume 92 [ foz_us] 80-99 Automated erythrocyte mean corpuscular h emoglobin (mass per erythrocyte) 28 pg 25-34 Automated erythrocyte mean corpuscular h emoglobin concentration measurement (mass/volume) 31 g/dL 32-36 Automated erythrocyte distribution width ratio 15. 7 % 10.0- 14.5 Automated blood platelet count (count/volume) 213 10*3/uL 130-400 Automated blood platelet mean volume measurement 10.2 [foz_us] 7.4-10.4 Automated blood neutrophils/100 leukocytes 86 % 42-75 Automated blood lymphocytes/100 leukocytes 8 % 12-44 Blood monocytes/100 leukocytes 6 % 0-12 Automated blood eosinophils/100 leukocytes 0 % 0-10 Automated blood basophils/100 leukocytes 0 % 0-10 Blood neutrophils automated count (number/volume) 5.9 10*3 1.8-7.8 Blood lymphocytes automated count (number/volume) 0.5 10*3 1.0-4.0 Blood monocytes automated count (number/volume) 0. 4 10*3 0.0-1.0 Automated eosinophil count 0.0 10*3/uL 0 .0-0.3 Automated blood basophil count (count/volume) 0.0 10*3/uL 0.0-0.1 Whole blood basic metabolic panel - 08/04 02/20 03:20 Serum or plasma sodium measurement (moles/volume) 142 mmol/L 135-145 Serum or plasma potassium measurement (moles/volume) 4.3 mmol/L 3.6-5.0 Serum or plasma chloride measurement (moles/volume) 92 mmol/L 98-107 Carbon dioxide 36 mmol/L 21-32 Serum or plasma anion gap determination (moles/volume) 14 mmol/L 5-14 Serum or plasma urea nitrogen measurement (mass/volume ) 30 mg/dL 7-18 Serum or plasma creatinine measurement (mass/volume) 1.04 mg/dL 0.60-1.30 Serum or plasma urea nitrogen/creatinine mass ratio 29 NRG Serum or plasma creatinine measurement w ith calculation of estimated glomerular filtration rate > NRG Serum or plasma glucose measurement (mass/volume) 99 mg/dL 70-105 Serum or plasma calcium measurement (mass/volume) 9.6 mg/dL 8.5-10.1 Serum or plasma phosphate measurement (m ass/volume) - 08/19/19 03:20 Serum or plasma phosphate measurement (mass/volume) 3.3 mg/dL 2.3-4.7 Magnesium - 08/19/19 03:20 Magnesium 2.0 mg/dL 1.6-2.4 Capillary blood glucose measurement by g lucometer (mass/volume) - 08/19/19 11:35 Capillary blood glucose measurement by glucometer (mas s/volume) 103 mg/dL 70-110 Capillary blood glucose measurement by g lucometer (mass/volume) - 08/19/19 16:32 Capillary blood glucose measurement by glucometer (mas s/volume) 112 mg/dL 70-110 Capillary blood glucose measurement by g lucometer (mass/volume) - 08/19/19 20:33 Capillary blood glucose measurement by glucometer (mas s/volume) 121 mg/dL 70-110 Serum or plasma phosphate measurement (m ass/volume) - 08/20/19 04:03 Serum or plasma phosphate measurement (mass/volume) 3.8 mg/dL 2.3-4.7 Magnesium - 08/20/19 04:03 Magnesium 1.9 mg/dL 1.6-2.4 Complete blood count (CBC) with automate d white blood cell (WBC) differential - 08/20/19 04:15 Blood leukocytes automated count (number/volume) 6.5 10*3/uL 4.3-11.0 Blood erythrocytes automated count (number/volume) 2.96 10*6/uL 4.35-5.85 Venous blood hemoglobin measurement (mass/volume) 8.3 g/dL 13.3-17.7 Blood hematocrit (volume fraction) 28 % 40-54 Automated erythrocyte mean corpuscular volume 94 [ foz_us] 80-99 Automated erythrocyte mean corpuscular h emoglobin (mass per erythrocyte) 28 pg 25-34 Automated erythrocyte mean corpuscular h emoglobin concentration measurement (mass/volume) 30 g/dL 32-36 Automated erythrocyte distribution width ratio 16. 5 % 10.0- 14.5 Automated blood platelet count (count/volume) 253 10*3/uL 130-400 Automated blood platelet mean volume measurement 9.8 [foz_us] 7.4-10.4 Automated blood neutrophils/100 leukocytes 74 % 42-75 Automated blood lymphocytes/100 leukocytes 17 % 12-44 Blood monocytes/100 leukocytes 7 % 0-12 Automated blood eosinophils/100 leukocytes 2 % 0-10 Automated blood basophils/100 leukocytes 1 % 0-10 Blood neutrophils automated count (number/volume) 4.8 10*3 1.8-7.8 Blood lymphocytes automated count (number/volume) 1.1 10*3 1.0-4.0 Blood monocytes automated count (number/volume) 0. 5 10*3 0.0-1.0 Automated eosinophil count 0.1 10*3/uL 0 .0-0.3 Automated blood basophil count (count/volume) 0.0 10*3/uL 0.0-0.1 Whole blood basic metabolic panel - 08/04 03/22 04:15 Serum or plasma sodium measurement (moles/volume) 142 mmol/L 135-145 Serum or plasma potassium measurement (moles/volume) 4.3 mmol/L 3.6-5.0 Serum or plasma chloride measurement (moles/volume) 94 mmol/L 98-107 Carbon dioxide 36 mmol/L 21-32 Serum or plasma anion gap determination (moles/volume) 12 mmol/L 5-14 Serum or plasma urea nitrogen measurement (mass/volume ) 28 mg/dL 7-18 Serum or plasma creatinine measurement (mass/volume) 1.17 mg/dL 0.60-1.30 Serum or plasma urea nitrogen/creatinine mass ratio 24 NRG Serum or plasma creatinine measurement w ith calculation of estimated glomerular filtration rate > NRG Serum or plasma glucose measurement (mass/volume) 81 mg/dL 70-105 Serum or plasma calcium measurement (mass/volume) 9.4 mg/dL 8.5-10.1 Capillary blood glucose measurement by g lucometer (mass/volume) - 08/20/19 05:35 Capillary blood glucose measurement by glucometer (mas s/volume) 82 mg/dL 70-110 Capillary blood glucose measurement by g lucometer (mass/volume) - 08/20/19 06:37 Capillary blood glucose measurement by glucometer (mas s/volume) 107 mg/dL 70-110 Capillary blood glucose measurement by g lucometer (mass/volume) - 08/20/19 11:10 Capillary blood glucose measurement by glucometer (mas s/volume) 113 mg/dL 70-110 Capillary blood glucose measurement by g lucometer (mass/volume) - 08/20/19 16:06 Capillary blood glucose measurement by glucometer (mas s/volume) 142 mg/dL 70-110 Capillary blood glucose measurement by g lucometer (mass/volume) - 08/20/19 20:05 Capillary blood glucose measurement by glucometer (mas s/volume) 162 mg/dL 70-110 Capillary blood glucose measurement by g lucometer (mass/volume) - 08/21/19 05:35 Capillary blood glucose measurement by glucometer (mas s/volume) 98 mg/dL 70-110 Complete blood count (CBC) with automate d white blood cell (WBC) differential - 08/21/19 05:44 Blood leukocytes automated count (number/volume) 6.3 10*3/uL 4.3-11.0 Blood erythrocytes automated count (number/volume) 3.08 10*6/uL 4.35-5.85 Venous blood hemoglobin measurement (mass/volume) 8.7 g/dL 13.3-17.7 Blood hematocrit (volume fraction) 29 % 40-54 Automated erythrocyte mean corpuscular volume 94 [ foz_us] 80-99 Automated erythrocyte mean corpuscular h emoglobin (mass per erythrocyte) 28 pg 25-34 Automated erythrocyte mean corpuscular h emoglobin concentration measurement (mass/volume) 30 g/dL 32-36 Automated erythrocyte distribution width ratio 16. 4 % 10.0- 14.5 Automated blood platelet count (count/volume) 240 10*3/uL 130-400 Automated blood platelet mean volume measurement 9.9 [foz_us] 7.4-10.4 Automated blood neutrophils/100 leukocytes 73 % 42-75 Automated blood lymphocytes/100 leukocytes 17 % 12-44 Blood monocytes/100 leukocytes 9 % 0-12 Automated blood eosinophils/100 leukocytes 2 % 0-10 Automated blood basophils/100 leukocytes 0 % 0-10 Blood neutrophils automated count (number/volume) 4.6 10*3 1.8-7.8 Blood lymphocytes automated count (number/volume) 1.1 10*3 1.0-4.0 Blood monocytes automated count (number/volume) 0. 5 10*3 0.0-1.0 Automated eosinophil count 0.1 10*3/uL 0 .0-0.3 Automated blood basophil count (count/volume) 0.0 10*3/uL 0.0-0.1 Whole blood basic metabolic panel - 08/04 04/22 05:44 Serum or plasma sodium measurement (moles/volume) 144 mmol/L 135-145 Serum or plasma potassium measurement (moles/volume) 4.7 mmol/L 3.6-5.0 Serum or plasma chloride measurement (moles/volume) 94 mmol/L 98-107 Carbon dioxide 38 mmol/L 21-32 Serum or plasma anion gap determination (moles/volume) 12 mmol/L 5-14 Serum or plasma urea nitrogen measurement (mass/volume ) 23 mg/dL 7-18 Serum or plasma creatinine measurement (mass/volume) 1.02 mg/dL 0.60-1.30 Serum or plasma urea nitrogen/creatinine mass ratio 23 NRG Serum or plasma creatinine measurement w ith calculation of estimated glomerular filtration rate > NRG Serum or plasma glucose measurement (mass/volume) 93 mg/dL 70-105 Serum or plasma calcium measurement (mass/volume) 9.6 mg/dL 8.5-10.1 Serum or plasma phosphate measurement (m ass/volume) - 08/21/19 05:44 Serum or plasma phosphate measurement (mass/volume) 3.5 mg/dL 2.3-4.7 Magnesium - 08/21/19 05:44 Magnesium 1.9 mg/dL 1.6-2.4 Capillary blood glucose measurement by g lucometer (mass/volume) - 08/21/19 11:17 Capillary blood glucose measurement by glucometer (mas s/volume) 104 mg/dL 70-110 Encounters ACCT No. Visit Date/Time Discharge Status Pt. Type Provider Facility Loc./Unit Complaint [id number] 08/18/2019 11:34:00 13:25:00 DIS Inpatient IVAN FONG MD [facility] 4TH ACUTE ON CHRONIC RESP F AILURE [id number] 08/15/2019 10:15:00 14:27:00 DIS Inpatient IVAN FONG MD [facility] CSD RESPIRATORY DISTRESS [id number] 08/14/2019 12:35:00 11:00:00 DIS Inpatient JIGNESH WASHINGTON DO, [facility] IRF ACUTE TOXIC METABOLIC ENCEPHALOPATHY [id number] 08/03/2019 16:07:00 15:20:00 DIS Inpatient IVAN FONG MD [facility] ICU CO2 NARCOSIS, COPD EXACERBATION,PNEUMONIA [id number] 07/14/2019 22:00:00 13:17:00 DIS Outpatient VERNON DIAMOND MD [facility] 4TH COPD EXACERBATION,HX CH F,ACUTE RESP FAILURE W/ HYP [id number] 07/07/2019 21:19:00 23:49:00 DIS Emergency MAGNUS VALDEZ APRN 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 RAD LEFT LEG SWELLI NG [id number] 05/29/2019 14:45:00 14:45:00 CAN Preadmit DANITA TEE DO [facility] RAD LEFT SHOULDER P AIN [id number] 04/25/2019 12:16:00 23:59:59 [facility] Outpatient DANITA TEE DO [facility] RAD FALL. PAIN IN R IGHT HIP [id number] 04/04/2019 02:00:00 12:50:00 DIS Inpatient DANITA TEE DO [facility] 4TH COPD EXAC/PNA,F ALL,SOFT TISSUE INJURY, [id number] 01/04/2019 03:05:00 09:10:00 DIS Inpatient DANITA TEE DO [facility] 4TH ACUTE ON CHRONI C RESPIRATORY FAILURE;HX OF CHF; [id number] 11/02/2018 13:52:00 18:45:00 DIS Emergency SNEHA RIDDLE, YRN Varghese [facility] ER SOB;NAUSEA [id number] 09/19/2018 08:47:00 18:24:00 DIS Inpatient DANITA TEE DO [facility] 4TH BILAT RLL PNEUM ONIA [id number] 08/14/2018 10:32:00 018 12:51:00 DIS Emergency MOISES RIDDLE, VALENTE Gomez [facility] ER FACE BURN [id number] 01/30/2018 02:05:00 018 13:20:00 DIS Inpatient PADMINI SAWYER JIGNESH V [facility] 4TH ACUTE ON CHRONIC RESPIR ATORY FAILURE;PNEUMONIA; [id number] 10/27/2017 21:17:00 018 12:25:00 DIS Inpatient DANITA TEE DO [facility] 4TH RESPIRATORY FAILURE,FALL,ARF,COPD EXACERBATION [id number] 11/14/2016 10:00:00 23:59:59 CLS Preadmit MIKEYSHAI [facility] DIAB[facility] [id number] 08/15/2016 10:54:00 00:01:00 DIS Outpatient NAY SAWYER [facility] [id number] 06/09/2016 21:22:00 13:00:00 DIS Inpatient NAY SAWYER DANITA Anika [facility] 4TH HYPOXIA;ACUTE O N CHRONIC RESPIRATORY FAILURE;COPD; [id number] 04/11/2016 00:20:00 10:35:00 DIS Inpatient DANITA TEE DO [facility] 4TH ACUTE ON CHRONI C RESPIRATORY FAILURE;RLL PNEUMONIA [id number] 12/16/2015 04:59:00 016 09:00:00 DIS Emergency MOISES RIDDLE, VALENTE Gomze [facility] ER LETHARGY [id number] 11/14/2015 08:28:00 09:31:00 DIS Inpatient ABDI CUNHA MD [facility] 4TH A FIB WITH RVR,HYPERKAL EMIA,POSS ASPIRATION [id number] 10/30/2015 13:39:00 23:59:59 CLS Outpatient JERMAIN TEJEDA MD [facility] RAD LOW BACK PAIN,PAIN IN L EFT HIP [id number] 10/14/2015 14:10:00 23:59:59 CLS Outpatient DANITA TEE DO [facility] RAD ABD MAMMO [id number] 06/22/2015 23:20:00 14:32:00 DIS Inpatient DANITA TEE DO [facility] 4TH FALL,FOOT FX,IM MOBILITY [id number] 02/20/2015 01:00:00 15:30:00 DIS Inpatient GELLENDER DO, DANITA Anika [facility] 4TH ACUTE ON CHRONI C RESPIRATORY FAILURE:CHF:BIBASILAR [id number] 12/04/2014 12:40:00 015 23:59:59 CLS Outpatient DANITA TEE DO [facility] RAD 6 MONTH FOLLOW UP [id number] 09/12/2014 08:53:00 015 23:59:59 CLS Outpatient ISAIASBRANCHDANITA [facility] RAD ENLARGEMENT, CARDONA RD KNOTS BEHIND NIPPLES [id number] 07/12/2014 18:20:00 014 19:45:00 DIS Emergency MAGNUS VALDEZ APRN [facility] ER POST SURGERY INFECTION [id number] 06/12/2014 06:05:00 014 10:50:00 DIS Outpatient JIA MCPHERSON MD [facility] SDC SEBACEOUS CYST X 2 ON R IGHT SIDE OF HEAD [id number] 06/06/2014 12:41:00 014 23:59:59 CLS Outpatient JIA MCPHERSON MD [facility] PREOP SEBACEOUS CYST X 2 ON R IGHT SIDE OF HEAD [id number] 04/06/2014 16:45:00 014 13:35:00 DIS Inpatient NAY SAWYERDANITA [facility] 4TH COPD, ACUTE CHR ONIC RESP FAILURE [id number] 01/27/2014 18:20:00 014 14:30:00 DIS Inpatient MIKEYLENBRANCHDANITA [facility] 4TH CHF,COPD,ACUTE ON CHRONIC RESPIRATORY FAILURE [id number] 01/09/2014 15:19:00 014 23:59:59 CLS Outpatient JERMAIN TEJEDA MD [facility] RAD LUMBAGO [id number] 03/28/2013 16:38:00 013 13:45:00 DIS Inpatient MIKEYLENDANITA SANTIAGO DO [facility] 4TH HYPERCAPNIC RES PIRATORY FAILURE, COPD EXACERBATION [id number] 01/10/2013 23:02:00 013 11:25:00 DIS Inpatient MIKEYCLARISSEDANITA SANTIAGO DO [facility] 4TH COPD W/ ACUTE E XACERBATION; DYSPNEA W/ HYPOXIA [id number] 09/11/2014 09:55:00 Document Registration [id number] 08/08/2012 06:27:00 Document Registration [id number] 07/24/2012 15:44:00 Document Registration [id number] 02/28/2012 21:08:00 Document Registration [id number] 02/06/2012 23:00:00 Document Registration [id number] 08/16/2011 17:23:00 Document Registration [id number] 07/13/2011 07:50:00 Document Registration [id number] 01/28/2011 11:45:00 Document Registration [id number] 06/24/2010 16:57:00 Document Registration [id number] 05/21/2010 04:51:00 Document Registration [id number] 01/17/2010 01:59:00 Document Registration [id number] 05/11/2008 01:45:00 Document Registration
== END 2019-08-07 15:20 | disposition short-term general hospital (02) | DRG 208 ==
LOC: EDUNIT# 13:52 → ER 13:53 → ICU 16:07
PROVIDERS: ADMIT Internal Medicine; ATTEND Internal Medicine
PROC: 5A1945Z Respiratory Ventilation, 24-96 Consecutive Hours (ICD-10-PCS; principal; 2019-08-03)
PROC: 0BH17EZ Insertion of Endotracheal Airway into Trachea, Via Natural or Artificial Opening (ICD-10-PCS; 2019-08-03)
PROC: 0BC38ZZ Extirpation of Matter from Right Main Bronchus, Via Natural or Artificial Opening Endoscopic (ICD-10-PCS; 2019-08-05)
PROC: 0BC78ZZ Extirpation of Matter from Left Main Bronchus, Via Natural or Artificial Opening Endoscopic (ICD-10-PCS; 2019-08-05)
PROC: 5A1935Z Respiratory Ventilation, Less than 24 Consecutive Hours (ICD-10-PCS; 2019-08-07)
DX: J96.21 Acute and chronic respiratory failure with hypoxia (principal); J96.22 Acute and chronic respiratory failure with hypercapnia; J15.1 Pneumonia due to Pseudomonas; I21.4 Non-ST elevation (NSTEMI) myocardial infarction; I13.0 Hypertensive heart and chronic kidney disease with heart failure and stage 1 through stage 4 chronic kidney disease, or unspecified chronic kidney disease; N18.9 Chronic kidney disease, unspecified; J86.9 Pyothorax without fistula; J90 Pleural effusion, not elsewhere classified; J98.09 Other diseases of bronchus, not elsewhere classified; E87.2 Acidosis; N17.9 Acute kidney failure, unspecified; I50.32 Chronic diastolic (congestive) heart failure; J43.9 Emphysema, unspecified; Z68.42 Body mass index [BMI] 45.0-49.9, adult; E66.2 Morbid (severe) obesity with alveolar hypoventilation; I49.5 Sick sinus syndrome; D63.8 Anemia in other chronic diseases classified elsewhere; I48.0 Paroxysmal atrial fibrillation; R00.1 Bradycardia, unspecified; I25.10 Atherosclerotic heart disease of native coronary artery without angina pectoris; E11.9 Type 2 diabetes mellitus without complications; F41.9 Anxiety disorder, unspecified; F32.9 Major depressive disorder, single episode, unspecified; M54.9 Dorsalgia, unspecified; M81.0 Age-related osteoporosis without current pathological fracture; M19.90 Unspecified osteoarthritis, unspecified site; Z87.891 Personal history of nicotine dependence; Z99.81 Dependence on supplemental oxygen; Z79.01 Long term (current) use of anticoagulants
CPT/HCPCS: 31500; 36415; 71045; 71275; 80048; 80053; 80202; 81000; 82805; 82962; 83605; 83735; 83880; 84100; 84145; 84478; 84484; 85007; 85014; 85018; 85025; 85027; 86850; 86900; 86901; 86920; 87015; 87040; 87070; 87077; 87081; 87088; 87101; 87106; 87116; 87186; 87205; 87206; 93005; 93306; 94002; 94003; 94640; 94799; 96365; 96367; 96368; 96375

== ENCOUNTER 2019-08-14 12:35 | Inpatient (IN) | payer MEDICARE ==
[~2019-08-14] VITALS: Ht 177.8 cm; Wt 144.4 kg
[2019-08-14 12:30] VITALS: BP 151/87
[~2019-08-14 12:35] MED LIST changes: +ACETAMINOPHEN 500 MG TAB (TYLENOL) PO PRN; +ALPRAZolam 0.25 MG (XANAX) TAB PO PRN; +BISACODYL 10 MG SUPP (DULCOLAX) PR PRN; +CALCIUM CARBONATE 500 MG (TUMS) TAB.CHEW PO PRN; +DOCUSATE SODIUM 100 MG (COLACE) CAP PO PRN; +ESCI20TA45 PO; +FLEET ENEMA ADULT 1 EA BTL PR PRN; +LACTULOSE SYRUP 10GM/15ML (ENULOSE) 30ML UDC PO PRN; +LINE600T15 PO; +LOPERAMIDE 2 MG (IMODIUM) TABLET PO PRN; +MELATONIN 3 MG TABLET PO PRN; +ONDANSETRON 4 MG (ZOFRAN) ORAL DISSOLVE TAB PO PRN; +ONDANSETRON 4 MG/2 ML (SDV) Z0FRAN IV PRN; +POTA10TA10 PO; +diphenhydrAMINE 25 MG TAB (BENADRYL) PO PRN; +guaiFENesin/CODEINE (ROBITUSSIN AC) 10ML UDC PO PRN
--- NOTE | 2019-08-14 13:10 | Physical Therapy Evaluation ---
PT Evaluation-General Medical Diagnosis Admission Date Aug 14, 2019 at 12:35 Medical Diagnosis: acute/chron respiratory failure Onset Date: Sep 02, 2019 Therapy Diagnosis Therapy Diagnosis: impaired mobility, strength, endurance, balance Height/Weight Height (Feet): 5 Height (Inches): 10.00 Weight (Pounds): 348 Weight (Ounces): 6.0 Referral Physician: Monika Marquez DO Reason for Referral: Evaluation/Treatment Medical History Pertinent Medical History: CAD, COPD, DM, HTN, Smoking Reviewed History: Yes Social History Home: Single Level Current Living Status: Children Entry Into Home: Stairs With Railing PT Steps Into Home: 3 Patient states that the steps are very short. Prior Prior Level of Function SCALE: Activities may be completed with or without assistive devices. 9-Rituqzbvjp-xkbbfyr completes the activity by him/herself with no assistance from a helper. 5-Set-up or Clean-up Assistance-helper sets up or cleans up; patient completes activity. [place] assists only prior to or following the activity. 4-Supervision or Touching Assistance-helper provides verbal cues and/or touching/steadying and/or contact guard assistance as patient completes activity. Assistance may be provided throughout the activity or intermittently. 3-Partial/Moderate Assistance-helper does LESS THAN HALF the effort. [place] lifts, holds or supports trunk or limbs, but provides less than half the effort. 2-Substantial/Maximal Assistance-helper does MORE THAN HALF the effort. [place] lifts or holds trunk or limbs and provides more than half the effort. 3-Ouazlwjfv-mekwui does ALL the effort. Patient does none of the effort to complete the activity. Or, the assistance of 2 or more helpers is required for the patient to complete the activity. If activity was not attempted, code reason: 7-Patient Refused. 9-Not Applicable-not attempted and the patient did not perform the activity before the current illness, exacerbation or injury. 10-Not Attempted due to Environmental Limitations-(lack of equipment, weather restraints, etc.). 88-Not Attempted due to Medical Conditions or Safety Concerns. Bed Mobility: 6 Transfers (B,C,W/C): 6 Gait: 6 Stairs: 6 Indoor Mobility (Ambulation): Independent Stairs: Independent Patient states he was using a SPC. PT Evaluation-Current Subjective Patient in bed pre tx, agrees to PT, has 7-8/10 pain in low back. Will be co- treating with OT due to poor patient mobility, strength, endurance, pain, the need to coordinate UE and LE during activity. Pt/Family Goals to be independent at home Objective Patient Orientation: Person, Place, Situation Attachments: Oxygen ROM/Strength ROM Lower Extremities Limited slightly in general due to obesity and swelling. Strength Lower Extremities 3-/5 gross BLE Sensory Hearing: Functional Sensation Right Lower Extremit: Intact Sensation Left Lower Extremity: Intact Transfers Roll Left to Right (QC): 3 Sit to Lying (QC): 3 Lying to Sitting/Side of Bed(Q: 3 Sit to Stand (QC): 1 Chair/Qeu-ng-Ukwao Xfer(QC): 1 Car Transfer (QC): 1 Patient needs min assist for rolling and supine <-> sit, uses sit to stand ma chine for sit<-> stand and transfers, dependent for car transfers. Gait Does the Patient Walk?: No and Walking Goal IS indicated Mode of Locomotion: Wheelchair Anticipated Mode of Locomotion: Both Walk 10 feet (QC): 88 Walk 50 ft with 2 Turns(QC): 88 Walk 150 ft (QC): 88 Walking 10ft/uneven surface-QC: 88 Wheelchair Training Does the Pt Use a Wheelchair?: Yes Wheel 50 ft with 2 turns (QC): 1 Wheel 150 ft (QC): 1 Type of Wheelchair: Manual Stairs 1 Step (curb) (QC): 88 4 Steps (QC): 88 12 Steps (QC): 88 Balance Sitting Static: Fair Sitting Dynamic: Fair Standing Static: Poor Standing Dynamic: Poor Picking up an Object (QC): 88 Treatment Transfer from bed to recliner. Assessment/Needs Patient has impaired mobility, strength, endurance, balance, ROM. Patient re quires a sit to stand machine for transfers due to LE weakness. Rehab Potential: Fair PT Short Term Goals Short Term Goals Time Frame: Aug 21, 2019 Roll Left & Right: 4 Sit to lyin Lying to sitting on side of be: 4 Sit to stand: 3 Chair/qht-ot-ojstm transfer: 3 PT Prison Goals Prison Goals PT Truck Driver Teamster Goals Time Frame: Sep 04, 2019 Roll Left & Right (QC): 6 Sit to Lying (QC): 6 Lying-Sitting on Side/Bed(QC): 6 Sit to Stand (QC): 4 Chair/Wwu-qb-Icpsj Xfer(QC): 4 Toilet Transfer (QC): 4 Car Transfer (QC): 4 Does the Patient Walk: No and Walking Goal IS indicated Walk 10 feet (QC): 4 Walk 50ft with 2 Turns (QC): 4 Walk 150 ft (QC): 88 Walking 10ft on Uneven Surface: 4 1 Step (curb) (QC): 4 4 Steps (QC): 4 12 Steps (QC): 88 Picking up an Object (QC): 88 Does the Pt use WC or Scooter?: Yes Wheel 50 feet with 2 turns (QC: 6 Type: Manual Wheel 150 feet: 6 Type: Manual PT Plan Problem List Problem List: Activity Tolerance, Functional Strength, Safety, Balance, Gait, Transfer, Bed Mobility, ROM Treatment/Plan Treatment Plan: Continue Plan of Care Treatment Plan: Bed Mobility, Concurrent Therapy, Education, Functional Activity Sneha, Functional Strength, Group Therapy, Gait, Safety, Therapeutic Exercise, Transfers Treatment Duration: Sep 04, 2019 Frequency: At least 5 of 7 days/Wk (IRF) Estimated Hrs Per Day: 1.5 hours per day Patient and/or Family Agrees t: Yes Safety Risks/Education Patient Education: Transfer Techniques, Correct Positioning, Safety Issues Teaching Recipient: Patient Teaching Methods: Demonstration, Discussion Response to Teaching: Reinforcement Needed Discharge Recommendations Plan Patient will perform bed mobility and transfer training, balance and endurance training, functional strengthening, stair training, gait training, and education, to improve functional mobility and independence at home. Therapy Discharge Recommendati: Other, See Comments (home with family) Time/GCodes Time In: 1235 Time Out: 1305 Total Billed Treatment Time: 20 Total Billed Treatment 1 visit EVM 10' PT eval from 9502-2774 OT eval from [id number] Co-treat from 3111-3025 PT performed bed mobility and transfer, OT assist with transfers and UE positioning during activity DENIZ CHAMPAGNE PT Aug 14, 2019 13:10 POS
--- NOTE | 2019-08-14 13:15 | Occupational Therapy Eval ---
OT Evaluation-General/PLF Medical Diagnosis Admission Date Aug 14, 2019 at 12:35 Medical Diagnosis: acute/chron respiratory failure Onset Date: Aug 03, 2019 Therapy Diagnosis Therapy Diagnosis: Decreased ADL function Height/Weight Height (Feet): 5 Height (Inches): 10.00 Weight (Pounds): 348 Weight (Ounces): 6.0 Precautions Precautions/Isolations: Contact Isolation Referral Physician: Monika Marquez DO Referral Reason: Activity Tolerance, Self Care, Evaluation/Treatment, Strengthening/ROM Medical History Pertinent Medical History: CAD, COPD, DM, HTN, Smoking Additional Medical History HTIV, CAD, HFpEF, COPD, paroxysmal A fib, renal failure, depression, hx of GI bleed, TERE with BiPAP, HCC, NID DM Current History Pt admitted to [facility] hospital 08/03/19 with SOB, pt intubated. Transfer to [facility] on 08/07 with acute respiratory failure and concern for empyema, acute hypoxic and hypercarbic respiratory failure with large R pleural effusion. Pt extubated 08/08. Pt admits to [facility] ARU 08/14. Reviewed History: Yes Social History Home: Single Level Current Living Status: Children (daughter and grandson) Entry Into Home: Stairs With Railing Steps Into Home: 3 Steps Inside Home: 0 ADL-Prior Level of Function SCALE: Activities may be completed with or without assistive devices. 9-Lxvuxmmhba-cqikflz completes the activity by him/herself with no assistance from a helper. 5-Set-up or Clean-up Assistance-helper sets up or cleans up; patient completes activity. [place] assists only prior to or following the activity. 4-Supervision or Touching Assistance-helper provides verbal cues and/or touching/steadying and/or contact guard assistance as patient completes activity. Assistance may be provided throughout the activity or intermittently. 3-Partial/Moderate Assistance-helper does LESS THAN HALF the effort. [place] lifts, holds or supports trunk or limbs, but provides less than half the effort. 2-Substantial/Maximal Assistance-helper does MORE THAN HALF the effort. [place] lifts or holds trunk or limbs and provides more than half the effort. 0-Ujkjqakoo-xzgwce does ALL the effort. Patient does none of the effort to complete the activity. Or, the assistance of 2 or more helpers is required for the patient to complete the activity. If activity was not attempted, code reason: 7-Patient Refused. 9-Not Applicable-not attempted and the patient did not perform the activity before the current illness, exacerbation or injury. 10-Not Attempted due to Environmental Limitations-(lack of equipment, weather restraints, etc.). 88-Not Attempted due to Medical Conditions or Safety Concerns. ADL PLOF Comments Pt states IND with ADL activities with use of cane. Pt lives with daughter, daughter completes IADLs for pt. Self Care: Independent Functional Cognition: Independent DME/Equipment Comments Pt has high standard toilet, walk in shower with shower chair. Pt educated on recommendations of grab bars near toilet and in shower. Occupation: retired Drive Self: No OT Current Status Subjective Pt seen in bed, reclined. Pt expresses pain at ~8/10 in back, states he has been laying in bed for 11 days. Pt agreeable to OT eval and OT/ PT co-treat. OT individual evaluation: [id number] OT/ PT cotreatment: [id number]: cotreat rendered due to complex medical history, debility, and need for two skilled therapists to maintain safety during evaluation. PT focused on large motor movement, balance, and transfers while OT focused on UE movements, functional mobility and ADL function. Mental Status/Objective Patient Orientation: Person, Place, Situation, Normal For Age Attachments: Oxygen (5L) Current Hearing Aids: No Dentures/Partials: No Hand Dominance: Right Upper Extremity ROM WFL R UE Impaired LUE: AAROM with R to ~90*, pt unable to reach 90* with AROM, states torn/ pinched RTC mm Upper Extremity Coordination WFL BUE Upper Extremity Sensation States tingling/ numbness from CTS in R fingertips, LUE WFL Upper Extremity Strength RUE WFL LUE limited on site soil evaluator strength: WFL BUE ADL-Treatment Eating (QC): 6 (drinks from water) Oral Hygiene (QC): 7 Shower/Bathe Self (QC): 7 Upper Body Dressing (QC): 7 Lower Body Dressing (QC): 1 (TD to thread breifs BLE, pt can pull from knee to hip but requires assist to pull around hips in sit to stand lift) On/Off Footwear (QC): 1 (TD socks) Toileting Hygiene (QC): 1 (TD, use of sit to stand to maintain stance.) Toilet Transfer (QC): 1 (sit to stand use to commode beside chair.) Other Treatments Pt seen in bed, daughter present. Pt completes OT evaluation, ARU expectations and OT role explained. Pt requests out of bed, agreeable to sit in recliner. OT/ PT co-treat due to pt's debility; bed mob with mod A. Pt sits EOB to assess strength ~5 minutes with fair endurance, pt attempts urination in urinal and is unable to complete. Brief and socks placed on pt with TD. PT addressed LE strength, sit to stand lift utilized to sit to stand from bed, moved to recliner chair beside bed. Pt requests commode shortly after for BM, TD toilet transfer and toilet hygiene. Pt returns to recliner chair with sit to stand lift, left with daughters present, call light in reach, all needs met. Education OT Patient Education: Correct positioning, Modified ADL techniques, Purpose of tx/functional activities, Safety issues, Transfer techniques Teaching Recipient: Patient, Family Teaching Methods: Demonstration, Discussion Response to Teaching: Verbalize Understanding, Return Demonstration OT Short Term Goals Short Term Goals Time Frame: Aug 21, 2019 Upper body dressin Lower body dressin Putting on/taking off footwear: 3 OT Refining Equipment Operator Goals Refining Equipment Operator Goals Time Frame: Aug 28, 2019 Eating (QC): 6 Oral Hygiene (QC): 6 Toileting Hygiene (QC): 4 Shower/Bathe Self (QC): 6 Upper Body Dressing (QC): 6 Lower Body Dressing (QC): 4 On/Off Footwear (QC): 6 Additional Goals: 1-Demonstrate ADL Tasks, 2-Verbalize Understanding, 3- ImproveStrength/Sneha 1=Demonstrate adherence to instructed precautions during ADL tasks. 2=Patient will verbalize/demonstrate understanding of assistive devices/modifications for ADL. 3=Patient will improve strength/tolerance for activity to enable patient to perform ADL's. OT Education/Plan Problem List/Assessment Assessment: Decreased Activ Tolerance, Dependent Transfers, Impaired Funct Balance, Impaired I ADL's, Impaired Self-Care Skills Discharge Recommendations Plan/Recommendations: Continue POC Equpiment Recommendations-D/C: Rails on Tub/Shower, Hip Kit, Rails on Toilet Patient/Family Goals Gain strength, return home. Treatment Plan/Plan of Care Treatment,Training & Education: Yes Patient would benefit from OT for education, treatment and training to promote independence in ADL's, mobility, safety and/or upper extremity function for ADL's. Plan of Care: ADL Retraining, Caregiver Training, Concurrent Therapy, Functional Mobility, Group Exercise/Act as Ind, UE Funct Exercise/Act, W/C Management Training Treatment Duration: Aug 28, 2019 Frequency: At least 5 of 7 days/Wk (IRF) Estimated Hrs Per Day: 1.5 hours per day Agreement: Yes Rehab Potential: Fair Time/GCodes Start Time: 12:45 Stop Time: 13:05 Total Time Billed (hr/min): 15 Billed Treatment Time 1, EVM (10) PT individual evaluation: [id number] OT individual evaluation: [id number] OT/ PT cotreatment: [id number]: cotreat rendered due to complex medical history, debility, and need for two skilled therapists to maintain safety during evaluation. PT focused on large motor movement, balance, and transfers while OT focused on UE movements, functional mobility and ADL function. Total time in: 20 min BRYAN PICHARDO OTR Aug 14, 2019 13:14 POS
[2019-08-14] MEDS ORDERED: VITA-203 PO (13:21)
[2019-08-14] MEDS ORDERED: BUME2TAB7 PO ×2 (13:21)
[2019-08-14] MEDS ORDERED: SENN-40 PO (13:21)
[2019-08-14] MEDS ORDERED: OXYC-473 PO (13:21)
[2019-08-14] MEDS ORDERED: SODI45SP9 NS (13:21)
--- NOTE | 2019-08-14 13:24 | NUR ---
UPDATED MED REC WITH DISCHARGE ORDERS FROM . NOTE THE FOLLOWING CHANGES WERE MADE AT THAT DISCHARGE: START TAKING: BUMEX 2MG AM BUMEX 1MG PM OXYCODONE 5MG 1-2 Q4H PRN STOP TAKING: AMLODIPINE 5MG DAILY FUROSEMIDE 60MG BID HYDROCODONE 5-325MG TID PRN LISINOPRIL 10MG DAILY SYMBICORT 160-4.5MCG (HAD NOT BEEN REPORTED AT ADMISSION HERE 08-05-19) ALSO REMOVED FROM THE MED REC THAT WAS ON FILE FROM HIS PREVIOUS VISIT HERE WAS DUONEB, LINEZOLID, POTASSIUM, AND PREDNISONE. NOT REPORTED AT THE VISIT HERE PREVIOUSLY BUT CONTINUED AT WAS SENOKOT, SALINE NASAL SPRAY, AND VITAMIN A. I WILL UPDATE THE MED REC BACK TO THE LIST OF MEDS THE PATIENT WAS TAKING PRIOR TO DISCHARGE FROM AT A LATER DATE FOR PROPER DISCHARGE TO HOME ORDERS.
[2019-08-14 14:27] VITALS: BP 151/87
--- NOTE | 2019-08-14 14:55 | Progress Note ---
SAMANTHA BYRNE 08/14/19 1455: Progress Note Time: 1411 Hospital Course: 63 yo male arrived to the ER on 08/03/19 with SOB. Patient was intubated then admitted the same day. Patient was then transferred to [facility] with Acute and chronic respiratory failure, Respiratory acidosis, Pseudomonas pneumonia, Empyema, Altered mental status on 08/07/19. Past medical history is significant for AFib, respiratory failure, chronic renal insufficiency, Hypertension, Chronic Back pain, CHF, Morbid Obesity, COPD, hyperlipidemia Dr. Orta, Dr. Forrest, and Dr. [place] provided care for patient Patient received ABG's, CBC, Chest X-ray, CT, sputum Cultures and Mechanical ventilation. Patient showed Respiratory acidosis on 08/03. Anemia was present on 08/06 and received two blood transfusions on 08/06/19. 08/07 patient showed leukocytosis, sputum culture showed Pseudomonas with sensitivity to multiple antibiotics. X-ray and CT showed In particular, right lung demonstrates significant right upper and right lower lobe consolidation with only a small amount of aeration involving the right middle lobe. Patient was extubated on 08/06 but needed reintubation due to decompensation throughout the night. Adriane Jorgensen consult insisted thoracic surgery for decortication and pleurodesis. Patient presented to on 08/07 and was intubated and sedated on arrival. Patient received a BAL that did not show any initial signs of infections. Chest tube was also places showing 950 ml of drainage that was consistent with a transudative process. Patient was gradually weaned from mechanical ventilator to comfort flow oxygen. Patient required moderate assist during therapy. Goals: Patients goals are to return home and live independently. MONIKA WASHINGTON DO 08/14/192048: Supervisory-Addendum Brief Verification & Attestation Participated in pt care: history, MDM, physical Personally performed: exam, history, MDM, supervision of care Care discussed with: Medical Student Procedures: n/a Results interpretation: Verified all documentation Verification and Attestation of Medical Student E/M Service A medical student performed and documented this service in my presence. I reviewed and verified all information documented by the medical student and made modifications to such information, when appropriate. I personally performed the physical exam and medical decision making. Monika Washington, Aug 14, 2019,20:49 SAMANTHA BYRNE Aug 14, 2019 14:55 MONIKA REED DO Aug 14, 2019 20:49 POS
--- NOTE | 2019-08-14 15:15 | ST Cognitive Linguistic Eval ---
Speech Evaluation-General Medical Diagnosis acute/chron respiratory failure Onset Date: Aug 03, 2019 Therapy Diagnosis Therapy Diagnosis: Cognitive-communication Referral Referring Physician: Dr. Marquez Medical History Pertinent Medical History: CAD, COPD, DM, HTN, Smoking Reviewed History: Yes Social History Current Living Status: Children (daughter and grandson) Speech PLF-Current Status Prior Level of Function Patient lived with his daughter and grandson where he was independent for most of his daily needs. Subjective The patient was pleasant and cooperative with the cognitive assessment. Language Eval: Auditory Comprehends Simple Yes/No Ques: Functional Indent/Objects Multiple Rose: Functional Ident/Pics in Multiple Rose: Functional Follows 1-Step Commands: Functional Follows Complex Directions: Mild Follows General Conversations: Functional Language Eval: Verbal Language Completes Spontaneous Greeting: Functional Produces Auto, Serial Info: Functional Imitates Simple Words/Phrases: Functional Word Finding: Mild Requests Basic Needs: Functional States Basic Personal Info: Functional Expresses Complex Ideas: Mild Objective Cognitive Domain Attention: WNL Memory: Mild Executive Functions: WNL Visuospatial Skills: WNL Composite Severity Rating: WNL Clock Drawing Severity Rating: WNL Objective Formal/Standardized Tests [facility] Status ([facility]) Results 24/30, within Mild Neurocognitive Disorder range of function Oral Motor/Speech Production Within Functional Limits Impression The patient is a pleasant 63 year old man who was admitted to the ARU s/p respiratory failure. The patient was given the SLUMS with a score of 24/30 obtained. This range of function is within the MNCD level. Patient qualifies for skilled ST services with focus on improving cognitive function related to his safety and independence in order to return home. Speech Patient Assess Expression of Ideas/Wants: Exhibits (3) Understanding Verbal Content: Usually Understands (3) Brief Interview-Mental Status: Yes Repetition of Three Words: Three (3) Temporal Orientation: Year: Correct (3) Temporal Orientation: Month: Accurate within 5 days(2) Temporal Orientation: Day: Correct (1) Recall : Wear to say "Sock": Yes,after cueing (1) Recall : Color: Yes, after cueing (1) Recall : Bed: No, could not recall (0) Memory/Recall Ability: Current season, That he or she is in a hsp/hsp unit Speech Short Term Goals Short Term Goals Short Term Goals 1) The patient will completed memory tasks related to his daily needs with 90% or greater with minimal cues. 2) The patient will completed problem solving tasks related to his daily needs with 90% or greater with minimal cues. 3) The patient will completed safety awareness tasks related to his daily needs with 90% or greater with minimal cues. Speech [employer] Director Goals [employer] Director Goals The patient will improve cognitive-communication necessary for safety and daily living tasks with minimal assist. Speech-Plan Patient/Family Goals Patient/Family Goals: The patient plans on returning to his home with his daughter and grandson upon rehab discharge. Treatment Plan Speech Therapy Treatment Plan: Continue Plan of Care Patient will receive skilled ST services for improving cognitive level of function. Treatment Duration: Aug 23, 2019 Frequency: 5 times per week Estimated Hrs Per Day: .5 hour per day Rehab Potential: Fair Barriers to Learning: Patient has mild cognitive deficits Pt/Family Agrees to Plan: Yes Safety Risks/Education Teaching Recipient: Patient Teaching Methods: Discussion Response to Teaching: Verbalize Understanding Education Topics Provided: Safety within his room and communication of wants/needs Time Speech Therapy Time In: 14:30 Speech Therapy Time Out: 14:45 Total Billed Time: 15 Billed Treatment Time 1, SPSNDCOMP JOSE Oleary Aug 14, 2019 15:15 POS
[2019-08-14] MEDS ORDERED: [UNRECOGNIZED DRUG - OTHER] NS PRN (17:15)
[2019-08-14] MEDS ORDERED: RT-ALBUTEROL SULF 2.5 MG/3 ML PRE-MIX VIAL IH PRN (17:15)
[2019-08-14] MEDS ORDERED: OXYCODONE HCL 10 MG PO PRN (17:15)
[2019-08-14] MEDS ORDERED: SODIUM CHLORIDE NS PRN (17:15)
[2019-08-14] MEDS ORDERED: SALINE NASAL SPRAY (OCEAN) 45 ML BTL PRN (18:00)
[2019-08-14 18:17] VITALS: BP 152/54
[2019-08-14] MEDS: POLYETHYLENE GLYCOL 17 GM (MIRALAX) PACK PO SCH (20:16)
--- NOTE | 2019-08-14 20:54 | PM&R Post Admission Assessment ---
PM&R HP Date of Visit: Aug 14, 2019 Time of Visit: 17:10 History of Present Illness CC: Encephalopathy HPI: This is a 63yoWM pt who returns from after respiratory failure and ence phalopathy requiring transfer to with chest tube placement, pneumonia treatment, and intensive care at a higher level of care status. At this current time delirium has resolved but he has severe deficit strength, will require intensive PT, OT and speech in order to return home to live independently. did mention that he did have diarrhea and could have C diff so we will init iate contact isolation until those results are completed but he reports minimal loose stools today. This component created by [facility]iyad [facility] Course: 63 yo male arrived to the ER on 08/03/19 with SOB. Patient was intubated then admitted the same day. Patient was then transferred to [facility] with Acute and chronic respiratory failure, Respiratory acidosis, Pseudomonas pneumonia, Empyema, Altered mental status on 08/07/19. Past medical history is significant for AFib, respiratory failure, chronic renal insufficiency, Hypertension, Chronic Back pain, CHF, Morbid Obesity, COPD, hyperlipidemia Dr. Orta, Dr. Forrest, and Dr. Cleveland provided care for patient Patient received ABG's, CBC, Chest X-ray, CT, sputum Cultures and Mechanical ventilation. Patient showed Respiratory acidosis on 08/03. Anemia was present on 08/06 and received two blood transfusions on 08/06/19. 08/07 patient showed leukocytosis, sputum culture showed Pseudomonas with sensitivity to multiple antibiotics. X-ray and CT showed In particular, right lung demonstrates significant right upper and right lower lobe consolidation with only a small amount of aeration involving the right middle lobe. Patient was extubated on 08/06 but needed reintubation due to decompensation throughout the night. Adriane Jorgensen consult insisted thoracic surgery for decortication and pleurodesis. Patient presented to on 08/07 and was intubated and sedated on arrival. Patient received a BAL that did not show any initial signs of infections. Chest tube was also places showing 950 ml of drainage that was consistent with a transudative process. Patient was gradually weaned from mechanical ventilator to comfort flow oxygen. Patient required moderate assist during therapy. Goals: Patients goals are to return home and live independently. Past Ghrrsrz-Zpyood-Sctuqs Hx Past Med/Social Hx: Reviewed Nursing Past Med/Soc Hx, Reviewed and Corrections made Patient Social History Marrital Status: single Employed/Student: retired ([employer]) Alcohol Use: Rarely Uses Number of Drinks Today: 0 Alcohol Beverage of Choice: Wine Recreational Drug Use: No (NONE X30 YRS) Drug of Choice: THC Smoking Status: Former Smoker (quit 2013) Former Smoker, Quit: Sep 18, 2015 Type Used: Cigarettes 2nd Hand Smoke Exposure: No Physical Abuse Screen: No Sexual Abuse: No Recent Foreign Travel: No Contact w/other who traveled: No Recent Hopitalizations: Yes Immunizations Up To Date Tetanus Booster (TDap): Unknown Date of Pneumonia Vaccine: Sep 04, 2012 Date of Influenza Vaccine: Jul 05, 2019 Seasonal Allergies Seasonal Allergies: Yes Past Medical History Surgeries: Cardiac, Vasectomy Respiratory: COPD, Emphysema, Pneumonia, Sleep Apnea Currently Using CPAP: Yes (WAS WEARING AT HOME PER EMS) Currently Using BIPAP: Yes Cardiac: Atrial Fibrillation, Chronic Edema/Swelling, Coronary Artery Disease, High Cholesterol, Hypertension, Valvular Heart Disease Neurological: Neuropathy Reproductive: No Sexually Transmitted Disease: No HIV/AIDS: No Genitourinary: Renal Failure Gastrointestinal: Colitis Musculoskeletal: Degenerate Disk Disease, Osteoporosis, Arthritis, Back Injury, Chronic Back Pain, Fractures, Spasms Endocrine: Diabetes, Non-Insulin dep Loss of Vision: Bilateral Hearing Impairment: Denies Psychosocial: Anxiety, Depression History of Blood Disorders: No Adverse Reaction to Blood [place]: No Family History Arthritis 19 MOTHER Cardiovascular disease 19 MOTHER FH: lung cancer 19 FATHER Hypertension 19 MOTHER No Family History of: AIDS Abdominal aortic aneurysm [place]'s disease Alcoholism Alzheimer's disease Aphasia Asthma Cancer of mouth Cataracts Colon cancer Completed stroke Congenital disease Congenital heart disease Coronary thrombosis Cystic fibrosis Deafness or hearing loss Dementia Diabetes mellitus Drug abuse Dysphasia Fibrocystic disease of breast Gastroenteritis Glaucoma Headache disorder Hypercholesterolemia Infertility Kidney disease Myocardial infarction Neoplasm Not obtainable due to adoption Osteoporosis Parkinson's disease Prostate cancer Psychosocial problem Respiratory disorder Seizure disorder Severe allergy Thyroid disease Tuberculosis Visual disorder AAA, Heart Disease, Cancer, Hypertension Prior Level of Function Bed Mobility: 6 Transfers: 6 Gait: 6 Stairs: 6 Indoor Mobility (Ambulation): Independent Stairs: Independent Self Care: Independent Functional Cognition: Independent Occupation: retired Drive Self: No Current Level of Fuctioning Roll Left to Right: 3 Sit to Lyin Lying to Sitting/Side of Bed: 3 Sit to Stand: 1 Chair/Vyu-vh-Vfhjc Xfer: 1 Car Transfer: 1 Does the Patient Walk: No and Walking Goal IS indicated Mode of Locomotion: Wheelchair Anticipated Mode of Locomotion: Both Walk 10 feet: 88 Walk 50 ft with 2 Turns: 88 Walk 150 ft: 88 Walking 10ft on uneven surface: 88 Does the Pt Use a Wheelchair: Yes Wheel 50 ft with 2 turns: 1 Wheel 150 ft: 1 Type of Wheelchair: Manual 1 Step (curb): 88 4 Steps: 88 12 Steps: 88 Picking up an Object: 88 Eatin (drinks from water) Oral Hygiene: 7 Shower/Bathe Self: 7 Upper Body Dressin Lower Body Dressin (TD to thread breifs BLE, pt can pull from knee to hip but requires assist to pull around hips in sit to stand lift) On/Off Footwear: 1 (TD socks) Toileting Hygiene: 1 (TD, use of sit to stand to maintain stance.) Toilet Transfer: 1 (sit to stand use to commode beside chair.) PM&R Allergy/Meds/Data Review Allergies Coded Allergies: cephalexin (Verified Adverse Reaction, Unknown, unknown- tolerated Rocephin with no issue 06/2019, 06/29/19) Home Medications Scheduled Amiodarone HCl (Amiodarone HCl), 200 MG PO DAILY, (Reported) Apixaban (Eliquis), 5 MG PO BID, (Reported) Aspirin (Aspirin EC), 81 MG PO DAILY, (Reported) Atorvastatin Calcium (Atorvastatin Calcium), 10 MG PO DAILY, (Reported) Bumetanide (Bumetanide), 2 MG PO DAILY, (Reported) Bumetanide (Bumetanide), 1 MG PO HS, (Reported) Buspirone HCl (Buspirone HCl), 10 MG PO BID, (Reported) Cholecalciferol (Vitamin D3) (Vitamin D3), 1,000 UNIT PO DAILY, (Reported) Cyanocobalamin/Cobamamide (Vitamin B-12 5,000 Mcg Tab Sl), 5,000 MCG SL DAILY, (Reported) Escitalopram Oxalate (Escitalopram Oxalate), 20 MG PO DAILY, (Reported) Fluticasone/Vilanterol (Breo Ellipta 200-25 Mcg INH), 1 PUFF INH 0600, (Reported) Metoprolol Succinate (Metoprolol Succinate), 12.5 MG PO DAILY, (Reported) Multivitamin/Iron/Folic Acid (Centrum Adults Tablet), 1 TAB PO DAILY, (Reported) Pantoprazole Sodium (Pantoprazole Sodium), 40 MG PO DAILY, (Reported) Pregabalin (Lyrica), 150 MG PO BID, (Reported) Roflumilast (Daliresp), 500 MCG PO DAILY, (Reported) Sennosides/Docusate Sodium (Senokot-S Tablet), 2 TAB PO DAILY, (Reported) Sildenafil Citrate (Sildenafil), 20 MG PO TID, (Reported) Vitamin A Palmitate (Vitamin A), 10,000 UNIT PO DAILY, (Reported) Scheduled PRN Albuterol Sulfate (Albuterol Sulfate), 2.5 MG NEB Q4H PRN for SHORTNESS OF BREATH, (Reported) Albuterol Sulfate (Ventolin Hfa), 2 PUFF INH Q4H PRN for SHORTNESS OF BREATH, (Reported) Oxycodone HCl (Roxicodone), 5-10 MG PO Q4H PRN for PAIN-SEVERE (8-10), (Reported) Sodium Chloride (Saline Nose [place]), 1-2 SPRAYS NS UD PRN for DRY NOSE, (Reported) Discontinued Medications Amlodipine Besylate (Amlodipine Besylate), 5 MG PO DAILY, (Reported) Discontinued Reason: No Longer Taking Escitalopram Oxalate (Lexapro), 20 MG PO DAILY Discontinued Reason: Duplicate Order Furosemide (Furosemide), 60 MG PO BID, (Reported) Discontinued Reason: No Longer Taking Hydrocodone/Acetaminophen (Hydrocodone-Acetamin 5-325 mg), 1 TAB PO TID PRN for PAIN-MODERATE, (Reported) Discontinued Reason: No Longer Taking Ipratropium/Albuterol Sulfate (Iprat-Albut 0.5-3(2.5) mg/3 ml), 3 ML IH Q4H PRN for SHORTNESS OF BREATH, (Reported) Discontinued Reason: No Longer Taking Linezolid (Linezolid), 600 MG PO BID, (Reported) Discontinued Reason: No Longer Taking Lisinopril (Lisinopril), 10 MG PO DAILY, (Reported) Discontinued Reason: No Longer Taking Potassium Chloride (Potassium Chloride), 10 MEQ PO DAILY, (Reported) Discontinued Reason: No Longer Taking Prednisone (Prednisone), PO UD, (Reported) Discontinued Reason: No Longer Taking Current Medications Current Medications Reviewed Review of Systems Constitutional: see HPI, malaise, weakness EENTM: no symptoms reported Respiratory: dyspnea on exertion, short of breath, wheezing Cardiovascular: no symptoms reported Gastrointestinal: diarrhea Genitourinary: no symptoms reported Musculoskeletal: back pain, joint pain Skin: rash (left lower leg) Psychiatric/Neurological: Anxiety All Other Systems Reviewed Negative Unless Noted: Yes Physical Exam Physical Exam Vital Signs Vital Signs - First Documented 08/14/19 08/14/19 12:30 18:17 Temp 35.6 Pulse 72 Resp 20 B/P (MAP) 151/87 (108) Pulse Ox 93 O2 Delivery Nasal Cannula O2 Flow Rate 5.00 Capillary Refill : Height, Weight, BMI Height: 5'10.00" Weight: 348lbs. 6.0oz. [id number]; 31.28 BMI Method:Stated General Appearance: No Apparent Distress, WD/WN, Chronically ill, Obese Eyes: Bilateral Eye Normal Inspection, Bilateral Eye PERRL HEENT: PERRL/EOMI, Normal ENT Inspection, Pharynx Normal Neck: Full Range of Motion, Normal Inspection, Non Tender, Supple, Carotid Bruit Respiratory: Chest Non Tender, Lungs Clear, No Accessory Muscle Use, No Respiratory Distress, Decreased Breath Sounds Cardiovascular: No Gallop, No JVD, No Murmur, Normal Peripheral Pulses, Irregularly Irregular Gastrointestinal: Normal Bowel Sounds, No Organomegaly, No Pulsatile Mass, Non Tender, Soft Back: Normal Inspection, No CVA Tenderness, No Vertebral Tenderness Extremity: Normal Capillary Refill, Normal Inspection, Normal Range of Motion, Non Tender, No Calf Tenderness, Pedal Edema Neurologic/Psychiatric: Alert, Oriented x3, No Motor/Sensory Deficits (generalized weakness bilateral lower extremities), delivery table feeder II-XII Norm as Tested, Depressed Affect Skin: Normal Color, Warm/Dry, Rash (left lower leg with mild edema and erythema appears chronic) Lymphatic: No Adenopathy PM&R Medical Assessment & Plan REHAB/MEDICAL ASSESSMENT AND PLAN: REHAB IMPAIRMENT GROUP: Critical illness myopathy with encephalopathy ETIOLOGIC DIAGNOSIS: Critical illness myopathy The comorbidities that impact the patients function and/or functional outcome by: PAF, COPD, Chronic debility, loose stools r/o c diff REHAB PLAN: The patient is being admitted to our comprehensive inpatient rehabilitation facility and can tolerate the intensity of service consisting of at least: 180 minutes of therapy a day, 5 out of 7 days a week Rehab treatment will consist of: PT will focus on regaining strength in order to return home, OT will help regaining ADL's The patient/family has a good understanding of our discharge process and will benefit from an interdisciplinary inpatient rehabilitation program. The patient has potential to make improvement and is in need of at least two of the following multidisciplinary therapies including but not limited to physical, occupational, speech, and prosthetics and orthotics. Additionally the patient will need services from respiratory, nutritional services, wound care, psychology, etc. (Customize this to each patient). Given the patients complex condition and risk of further medical complications, rehabilitation services cannot be safely or effectively provided at a lower level of care such as a assisted facility. BARRIERS TO DISCHARGE: Lives alone and will need to focus on fall prevention in order to safely DC ESTIMATED LOS: 7 days DISPOSITION: Home RELEVANT CHANGES SINCE PREADMISSION SCREENING: I have compared the patients medical and functional status at the time of the preadmission screening and there are: no changes PROGNOSIS: Good REHABILITATION GOALS: 1. Regain enough strength to ambulate with walker and return home All the above goals were reviewed with the patient and he/she is in agreement. By signing this document, I acknowledge that I have personally performed a full physical examination on this patient within 24 hours of admission to this inpatient rehabilitation facility and have determined the patient to be able to tolerate the above course of treatment at an intensive level for a reasonable period of time. I will be completing a detailed individualized Plan of Care for this patient by day #4 of the patients stay based upon the Preadmission Screen, the Post-Admission Evaluation, and the therapy evaluations. Admission Dx/Comorbidities: (1) Encephalopathy ICD Codes: G93.40 - Encephalopathy, unspecified (2) Acute on chronic respiratory failure with hypoxia and hypercapnia Status: Acute ICD Codes: J96.21 - Acute and chronic respiratory failure with hypoxia; J96.22 - Acute and chronic respiratory failure with hypercapnia (3) TERE treated with BiPAP Status: Chronic ICD Codes: G47.33 - Obstructive sleep apnea (adult) (pediatric) (4) Paroxysmal atrial fibrillation Status: Chronic ICD Codes: I48.0 - Paroxysmal atrial fibrillation (5) Morbid obesity Status: Chronic ICD Codes: E66.01 - MORBID (SEVERE) OBESITY DUE TO EXCESS CALORIES (6) CHF (congestive heart failure) Status: Acute ICD Codes: I50.9 - Heart failure, unspecified (7) Pulmonary hypertension Status: Chronic ICD Codes: I27.20 - Pulmonary hypertension, unspecified (8) HLD (hyperlipidemia) Status: Chronic ICD Codes: E78.5 - Hyperlipidemia, unspecified (9) HTN (hypertension) Status: Chronic ICD Codes: I10 - Essential (primary) hypertension (10) CAD (coronary artery disease) Status: Chronic ICD Codes: I25.10 - Atherosclerotic heart disease of [place] coronary artery without angina pectoris (11) COPD without exacerbation Status: Chronic ICD Codes: J44.9 - Chronic obstructive pulmonary disease, unspecified (12) Chronic back pain Status: Chronic ICD Codes: M54.9 - Dorsalgia, unspecified; G89.29 - Other chronic pain (13) Hypoxia Status: Acute (14) Frequent falls Status: Chronic ICD Codes: R29.6 - Repeated falls (15) Chronic renal insufficiency Status: Chronic (16) Immobility Status: Acute (17) Debility Status: Acute JIGNESH WASHINGTON DO Aug 14, 2019 20:54 POS
[2019-08-14] MEDS ORDERED: NON-FORMULARY MEDICATION 1 EA EA (Bumetanide 1 MG) PO SCH (21:00)
[2019-08-14] MEDS ORDERED: DOCUSATE SODIUM 100 MG (COLACE) CAP PO SCH (21:00)
[2019-08-14] MEDS ORDERED: NON-FORMULARY MEDICATION 1 EA EA (Sildenafil Citrate (Sildenafil) 20 MG) PO SCH (21:00)
[2019-08-14] MEDS ORDERED: NON-FORMULARY MEDICATION 1 EA EA (Buspirone HCl 10 MG) PO SCH (21:00)
[2019-08-14] MEDS ORDERED: BUMETANIDE 1 MG (BUMEX) TAB PO SCH (21:00)
[2019-08-14] MEDS ORDERED: SENNA W/DOCUSATE (SENOKOT S) TABLET PO SCH (21:00)
--- NOTE | 2019-08-14 21:35 | NUR ---
RN notified that patient stated he was having trouble breathing. O2 sats checked and patient was at 66%. RN checked patient's bipap and oxygen settings to make sure everything was okay. Nothing was noted to be wrong. RT called and asked to come assess patient. Patient's O2 sat up to 74% by the time RT arrived. Patient pulled up in bed and head of bed raised higher. RT assessed patient and gave patient a breathing treatment. Patient's O2 fluctuated between 85% and 88%. RT said the problem was the patient had a nasal mask and kept his mouth open. They recommended using a full face mask. Dr. Marquez notified and orders for bipap per protocol were obtained. Patient put on our bipap with full face mask. O2 sats staying 95% and 96%. Will continue to manage.
[2019-08-14] MEDS: RT-ALBUTEROL SULF 2.5 MG/3 ML PRE-MIX VIAL INH PRN (21:52)
[2019-08-14] MEDS: busPIRone 10 MG (BUSPAR) TAB PO SCH (22:02)
[2019-08-14] MEDS: PREGABALIN 150 MG (LYRICA) CAPSULE PO SCH (22:02)
[2019-08-14] MEDS: APIXABAN 5 MG (ELIQUIS) TABLET PO SCH (22:03)
[2019-08-14] MEDS: SILDENAFIL 20 MG (REVATIO) TAB NON-FORMULARY PO SCH (22:03)
--- NOTE | 2019-08-15 05:36 | NUR ---
Patient rested well tonight. O2 sats have remained 94% to 96%. Patient tolerated well. Will continue to manage.
[2019-08-15] MEDS ORDERED: NON-FORMULARY MEDICATION 1 EA EA (Fluticasone/Vilanterol (Breo Ellipta 200-25 Mcg INH) 1 P INH SCH (06:00)
[2019-08-15] MEDS ORDERED: RT-ADVAIR HFA 115/21 MCG PER PUFF IH SCH (06:00)
[2019-08-15 06:11] VITALS: BP 119/59
[2019-08-15 06:55] LABS: BASOPHILS % (AUTO) 0 % (0-10); EOSINOPHILS # (AUTO) 0.1 10^3/uL (0.0-0.3); EOSINOPHILS % (AUTO) 2 % (0-10); HEMATOCRIT 30 % (40-54); HEMOGLOBIN 8.9 G/DL (13.3-17.7); LYMPHOCYTES # (AUTO) 0.8 X 10^3 (1.0-4.0); LYMPHOCYTES % (AUTO) 14 % (12-44); MEAN CORPUSCULAR HEMOGLOBIN 28 PG (25-34); MEAN CORPUSCULAR HGB CONC 30 G/DL (32-36); MEAN CORPUSCULAR VOLUME 96 FL (80-99); MEAN PLATELET VOLUME 9.8 FL (7.4-10.4); MONOCYTES # (AUTO) 0.4 X 10^3 (0.0-1.0); MONOCYTES % (AUTO) 7 % (0-12); NEUTROPHILS # (AUTO) 4.3 X 10^3 (1.8-7.8); NEUTROPHILS % (AUTO) 77 % (42-75); PLATELET COUNT 125 10^3/uL (130-400); RED CELL DISTRIBUTION WIDTH 15.6 % (10.0-14.5); WHITE BLOOD COUNT 5.6 10^3/uL (4.3-11.0)
[2019-08-15] MEDS ORDERED: CYANOCOBALAMIN 1,000 MCG (VITAMIN B-12) TABLET PO SCH (07:00)
[2019-08-15] MEDS ORDERED: MULTIVIT W/MINERALS TAB (THERAGRAN M) PO SCH (07:00)
[2019-08-15 07:18] LABS: ALANINE AMINOTRANSFERASE 35 U/L (0-55); ALBUMIN 2.9 GM/DL (3.2-4.5); ALKALINE PHOSPHATASE 93 U/L (40-136); BILIRUBIN,TOTAL 0.3 MG/DL (0.1-1.0); BUN/CREATININE RATIO 38; CALCIUM 9.2 MG/DL (8.5-10.1); CARBON DIOXIDE 43 MMOL/L (21-32); CHLORIDE 96 MMOL/L (98-107); CREATININE SERUM 0.82 MG/DL (0.60-1.30); GFR ESTIMATED > 60; GLUCOSE 82 MG/DL (70-105); POTASSIUM 3.9 MMOL/L (3.6-5.0); SODIUM 150 MMOL/L (135-145)
--- NOTE | 2019-08-15 07:30 | NUR ---
O2 ON AT 5L WITH SAT 92%. ASSISTED TO REPOSITION TO RIGHT SIDE. COMPLAIN PAIN LOWER BACK RATED A "7" AND MEDICATED FOR PAIN. STATES HAS BEEN MISERABLE WITH BACK PAIN HIS ENTIRE ILLNESS.
[2019-08-15] MEDS: RT-ALBUTEROL SULF 2.5 MG/3 ML PRE-MIX VIAL INH PRN (07:45)
--- NOTE | 2019-08-15 08:30 | NUR ---
DR. WASHINGTON HERE TO SEE PATIENT AND INFORMED OF BACK PAIN. WILL START VOLTAREN CREAM. PATIENT REFUSES KPAD TO BACK. INFORMED OF NA 150 AND WILL START ENCOURAGING FREE WATER. DR. WASHINGTON AWARE OF RESPIRATORY STATUS.
--- NOTE | 2019-08-15 08:31 | Consultation ---
History of Present Illness History of Present Illness Patient Consulted On(jamila/time) 08/15/19 08:26 Time Seen by Provider: 08:26 History of Present Illness Patient was in via [facility] intubated on ventilator. Patient transferred to [facility]. Patient mumbled ventilator there and had a chest tube put in and 1.2 L of fluid removed. Patient at this time is weak and debilitated and needs rehabilitation Patient known diabetic. Patient has COPD.. Patient has a history of hyperlipidemia. Patient has pulmonary artery hypertension. Previous surgeries facetectomy and benign tumor on top of head Allergies and Home Medications Allergies Coded Allergies: cephalexin (Verified Adverse Reaction, Unknown, unknown- tolerated Rocephin with no issue 06/2019, 06/29/19) Home Medications Albuterol Sulfate 2.5 Mg/3 Ml Vial.neb, 2.5 MG NEB Q4H PRN for SHORTNESS OF BREATH, (Reported) Albuterol Sulfate 18 Gm Hfa.aer.ad, 2 PUFF INH Q4H PRN for SHORTNESS OF BREATH, (Reported) Amiodarone HCl 200 Mg Tablet, 200 MG PO DAILY, (Reported) Apixaban 5 Mg Tablet, 5 MG PO BID, (Reported) Aspirin 81 Mg Tablet.dr, 81 MG PO DAILY, (Reported) Atorvastatin Calcium 10 Mg Tablet, 10 MG PO DAILY, (Reported) Bumetanide 2 Mg Tablet, 2 MG PO DAILY, (Reported) Bumetanide 2 Mg Tablet, 1 MG PO HS, (Reported) TAKES 1/2 (2MG) TABLET Buspirone HCl 10 Mg Tablet, 10 MG PO BID, (Reported) Cholecalciferol (Vitamin D3) 1,000 Unit Capsule, 1,000 UNIT PO DAILY, (Reported) Cyanocobalamin/Cobamamide 1 Each Tab.subl, 5,000 MCG SL DAILY, (Reported) Escitalopram Oxalate 20 Mg Tablet, 20 MG PO DAILY, (Reported) Fluticasone/Vilanterol 1 Each Blst.w.dev, 1 PUFF INH 0600, (Reported) Metoprolol Succinate 25 Mg Tab.er.24h, 12.5 MG PO DAILY, (Reported) TAKES 1/2 (25MG) TABLET Multivitamin/Iron/Folic Acid 1 Each Tablet, 1 TAB PO DAILY, (Reported) Oxycodone HCl 5 Mg Tablet, 5-10 MG PO Q4H PRN for PAIN-SEVERE (8-10), (Reported) Pantoprazole Sodium 40 Mg Tablet.dr, 40 MG PO DAILY, (Reported) Pregabalin 150 Mg Capsule, 150 MG PO BID, (Reported) LAST FILLED 06-14-19 #60 Roflumilast 500 Mcg Tablet, 500 MCG PO DAILY, (Reported) Sennosides/Docusate Sodium 1 Each Tablet, 2 TAB PO DAILY, (Reported) Sildenafil Citrate 20 Mg Tablet, 20 MG PO TID, (Reported) Sodium Chloride 45 Ml [place], 1-2 SPRAYS NS UD PRN for DRY NOSE, (Reported) Vitamin A Palmitate 10,000 Unit Capsule, 10,000 UNIT PO DAILY, (Reported) Patient Home Medication List Home Medication List Reviewed: Yes Past Dukgkte-Ajuxcu-Unzwrk Hx Past Med/Social Hx: Reviewed Nursing Past Med/Soc Hx, Reviewed and Corrections made Patient Social History Alcohol Use: Rarely Uses Number of Drinks Today: 0 Alcohol Beverage of Choice: Wine Recreational Drug Use: No (NONE X30 YRS) Drug of Choice: THC Smoking Status: Former Smoker (quit 2013) Type Used: Cigarettes Former Smoker, Quit: Sep 18, 2015 2nd Hand Smoke Exposure: No Recent Foreign Travel: No Contact w/Someone Who Travel: No Recent Hopitalizations: Yes Immunizations Up To Date Tetanus Booster (TDap): Unknown Date of Pneumonia Vaccine: Sep 04, 2012 Date of Influenza Vaccine: Jul 05, 2019 Seasonal Allergies Seasonal Allergies: Yes Past Medical History Surgeries: Yes (FATTY TUMOR REMOVED FROM TOP OF HEAD. CARDIAC CATH X 2--NO INTERVENTION) Cardiac, Vasectomy Respiratory: Yes Pneumonia, Chronic Bronchitis, Sleep Apnea, COPD, Emphysema Currently Using CPAP: Yes (WAS WEARING AT HOME PER EMS) Currently Using BIPAP: Yes Cardiac: Yes Atrial Fibrillation, Chronic Edema/Swelling, Coronary Artery Disease, High Cholesterol, Hypertension, Valvular Heart Disease Neurological: No Neuropathy Reproductive Disorders: No Sexually Transmitted Disease: No HIV/AIDS: No Genitourinary: Yes (RENAL INSUFFICIENCY) Renal Failure Gastrointestinal: Yes Colitis Musculoskeletal: Yes ("BULGING DISCS" ; CHRONIC "JERKING" OF MUSCLES; CHRONIC NARCOTIC USE) Degenerate Disk Disease, Osteoporosis, Arthritis, Back Injury, Chronic Back Pain, Fractures, Spasms Endocrine: Yes (MORBID OBESITY) Diabetes, Non-Insulin dep HEENT: Yes (NEAR SIGHTED) Loss of Vision: Bilateral Hearing Impairment: Denies Cancer: No Psychosocial: Yes Anxiety, Depression Integumentary: No Blood Disorders: No Adverse Reaction/Blood Tranf: No Family Medical History Arthritis 19 MOTHER Cardiovascular disease 19 MOTHER FH: lung cancer 19 FATHER Hypertension 19 MOTHER No Family History of: AIDS Abdominal aortic aneurysm Alfonzo's disease Alcoholism Alzheimer's disease Aphasia Asthma Cancer of mouth Cataracts Colon cancer Completed stroke Congenital disease Congenital heart disease Coronary thrombosis Cystic fibrosis Deafness or hearing loss Dementia Diabetes mellitus Drug abuse Dysphasia Fibrocystic disease of breast Gastroenteritis Glaucoma Headache disorder Hypercholesterolemia Infertility Kidney disease Myocardial infarction Neoplasm Not obtainable due to adoption Osteoporosis Parkinson's disease Prostate cancer Psychosocial problem Respiratory disorder Seizure disorder Severe allergy Thyroid disease Tuberculosis Visual disorder AAA, Heart Disease, Cancer, Hypertension Review of Systems-General Constitutional: malaise, weakness EENTM: no symptoms reported Respiratory: dyspnea on exertion, orthopnea, short of breath Cardiovascular: no symptoms reported Gastrointestinal: no symptoms reported Genitourinary: no symptoms reported Physical Exam-General Problems Physical Exam Vital Signs Vital Signs - First Documented 08/14/19 08/14/19 12:30 18:17 Temp 35.6 Pulse 72 Resp 20 B/P (MAP) 151/87 (108) Pulse Ox 93 O2 Delivery Nasal Cannula O2 Flow Rate 5.00 Capillary Refill : General Appearance: WD/WN, no apparent distress Eyes: Bilateral Eye Normal Inspection HEENT: normal ENT inspection Neck: full range of motion Respiratory: no respiratory distress, no accessory muscle use, decreased breath sounds Cardiovascular: regular rate, rhythm Gastrointestinal: non tender, soft Assessment/Plan Assessment/Plan Admission Diagnosis/Plan Debility. Weakness. COPD. Acute toxic metabolic encephalopathy resolved. Hyperlipidemia. Diabetes. Back pain Reason for Inpatient Admission: Debility. Weakness. COPD Clinical Quality Measures DVT/VTE Risk/Contraindication: Risk Factor Score Per Nursin RFS Level Per Nursing on Admit: 4+=Very High DANITA TEE DO Aug 15, 2019 08:31 POS
[2019-08-15] MEDS ORDERED: BUMETANIDE 1 MG (BUMEX) TAB PO SCH (09:00)
[2019-08-15] MEDS ORDERED: SENNA W/DOCUSATE (SENOKOT S) TABLET PO SCH (09:00)
[2019-08-15] MEDS ORDERED: NON-FORMULARY MEDICATION 1 EA EA (Cholecalciferol (Vitamin D3) (Vitamin D3) 1,000 UNIT) PO SCH (09:00)
[2019-08-15] MEDS ORDERED: [UNRECOGNIZED DRUG - OTHER] SL SCH (09:00)
[2019-08-15] MEDS ORDERED: VITAMIN D3 1,000 UNITS (CHOLECALCIFEROL) TABLET PO SCH (09:00)
[2019-08-15] MEDS ORDERED: NON-FORMULARY MEDICATION 1 EA EA (Bumetanide 2 MG) PO SCH (09:00)
[2019-08-15] MEDS ORDERED: PANTOPRAZOLE 40 MG (PROTONIX) TAB PO SCH (09:00)
[2019-08-15] MEDS ORDERED: ROFLUMILAST 500 MCG TAB (DALIRESP) PO SCH (09:00)
[2019-08-15] MEDS ORDERED: ASPIRIN E.C. 81 MG (ECOTRIN) TAB PO SCH (09:00)
[2019-08-15] MEDS ORDERED: IRON PO SCH (09:00)
[2019-08-15] MEDS ORDERED: FOLIC ACID T PO SCH (09:00)
[2019-08-15] MEDS ORDERED: NON-FORMULARY MEDICATION 1 EA EA (Escitalopram Oxalate 20 MG) PO SCH (09:00)
[2019-08-15] MEDS ORDERED: [UNRECOGNIZED DRUG - OTHER] PO SCH (09:00)
[2019-08-15] MEDS ORDERED: DICLOFENAC 1% GEL 100 GM (VOLTAREN) TUBE TOP SCH (09:00)
[2019-08-15] MEDS ORDERED: VITAMIN A PALMITATE 10000 UNIT PO SCH (09:00)
[2019-08-15] MEDS ORDERED: DOCUSATE SODIUM PO SCH (09:00)
[2019-08-15] MEDS ORDERED: AMIODARONE 200 MG (CORDARONE) TAB PO SCH (09:00)
[2019-08-15] MEDS ORDERED: SENNOSIDES PO SCH (09:00)
[2019-08-15] MEDS ORDERED: MULTIVITAMIN PO SCH (09:00)
[2019-08-15] MEDS: busPIRone 10 MG (BUSPAR) TAB PO SCH (09:02)
[2019-08-15] MEDS: APIXABAN 5 MG (ELIQUIS) TABLET PO SCH (09:02)
[2019-08-15] MEDS: POLYETHYLENE GLYCOL 17 GM (MIRALAX) PACK PO SCH (09:03)
[2019-08-15] MEDS: PREGABALIN 150 MG (LYRICA) CAPSULE PO SCH (09:03)
[2019-08-15 09:17] LABS: ABG BASE EXCESS 20.5 MMOL/L (-2.5-2.5); ABG OXYGEN SATURATION 94 % (94-100); ABG PO2 69 MMHG (79-93); ABG TCO2 50.2 MMOL/L (21.0-31.0)
--- NOTE | 2019-08-15 09:20 | NUR ---
DR. TEE INFORMED OF CONSULT.
[2019-08-15 09:21] LABS: ABG PCO2 90 MMHG (35-45); ABG PH 7.34 (7.37-7.43); ALLENS TEST YES-POS; INSPIRED O2 5L; PATIENT TEMP 36.8; VENTILATOR NO
--- NOTE | 2019-08-15 09:30 | NUR ---
DR. WASHINGTON INFORMED OF ABG RESULTS AND ORDER OBTAINED TO TRANSFER TO ICU.
--- NOTE | 2019-08-15 09:35 | Discharge Summary ---
Diagnosis/Chief Complaint Date of Admission Aug 14, 2019 at 12:35 Date of Discharge Discharge Diagnosis 1a) Acute hypercapnia CO2 90 (1) Encephalopathy ICD Codes: G93.40 - Encephalopathy, unspecified (2) Acute on chronic respiratory failure with hypoxia and hypercapnia Status: Acute ICD Codes: J96.21 - Acute and chronic respiratory failure with hypoxia; J96.22 - Acute and chronic respiratory failure with hypercapnia (3) TERE treated with BiPAP Status: Chronic ICD Codes: G47.33 - Obstructive sleep apnea (adult) (pediatric) (4) Paroxysmal atrial fibrillation Status: Chronic ICD Codes: I48.0 - Paroxysmal atrial fibrillation (5) Morbid obesity Status: Chronic ICD Codes: E66.01 - MORBID (SEVERE) OBESITY DUE TO EXCESS CALORIES (6) CHF (congestive heart failure) Status: Acute ICD Codes: I50.9 - Heart failure, unspecified (7) Pulmonary hypertension Status: Chronic ICD Codes: I27.20 - Pulmonary hypertension, unspecified (8) HLD (hyperlipidemia) Status: Chronic ICD Codes: E78.5 - Hyperlipidemia, unspecified (9) HTN (hypertension) Status: Chronic ICD Codes: I10 - Essential (primary) hypertension (10) CAD (coronary artery disease) Status: Chronic ICD Codes: I25.10 - Atherosclerotic heart disease of [place] coronary artery without angina pectoris (11) COPD without exacerbation Status: Chronic ICD Codes: J44.9 - Chronic obstructive pulmonary disease, unspecified (12) Chronic back pain Status: Chronic ICD Codes: M54.9 - Dorsalgia, unspecified; G89.29 - Other chronic pain (13) Hypoxia Status: Acute (14) Frequent falls Status: Chronic ICD Codes: R29.6 - Repeated falls (15) Chronic renal insufficiency Status: Chronic (16) Immobility Status: Acute (17) Debility Status: Acute Discharge Summary Discharge Physical Examination Allergies: Coded Allergies: cephalexin (Verified Adverse Reaction, Unknown, unknown- tolerated Rocephin with no issue 06/2019, 06/29/19) Vitals & I&Os Vital Signs Date Time Temp Pulse Resp B/P (MAP) Pulse Ox O2 Delivery O2 Flow Rate FiO2 08/15/19 10:00 81 141/66 (91) 92 Nasal Cannula 5.00 08/15/19 06:11 36.7 23 General Appearance: Alert, Mild Distress (tachypneic) Hospital Course Was the Problem List Reviewed?: Yes Hospital course: Pt had a very brief hospital course for inpatient rehab prior to moving to the ICU for acute on chronic respiratory failure with respiratory acidosis and severe hypercapnia with a CO2 of 90. He did have some SOB, was placed on a facial BiPAP through the night due to O2 sat of 69% and he just was not breathing well and was tachypneic, so he was otherwise stable but I did move him to the ICU on Dr. Reyes's service, I did update Dr. Cleveland on this move and Pt overall has a guarded prognosis but he certainly is not ready for the structured inpatient rehab program at this time. Labs (last 24 hrs) Laboratory Tests 08/15/19 06:25: White Blood Count 5.6, Red Blood Count 3.13L, Hemoglobin 8.9L, Hematocrit 30L, Mean Corpuscular Volume 96, Mean Corpuscular Hemoglobin 28, Mean Corpuscular Hemoglobin Concent 30L, Red Cell Distribution Width 15.6H, Platelet Count 125L, Mean Platelet Volume 9.8, Neutrophils (%) (Auto) 77H, Lymphocytes (%) (Auto) 14, Monocytes (%) (Auto) 7, Eosinophils (%) (Auto) 2, Basophils (%) (Auto) 0, Neutrophils # (Auto) 4.3, Lymphocytes # (Auto) 0.8L, Monocytes # (Auto) 0.4, Eosinophils # (Auto) 0.1, Basophils # (Auto) 0.0, Sodium Level 150H, Potassium Level 3.9, Chloride Level 96L, Carbon Dioxide Level 43H, Anion Gap 11, Blood Urea Nitrogen 31H, Creatinine 0.82, Estimat Glomerular Filtration Rate > 60, BUN/Creatinine Ratio 38, Glucose Level 82, Calcium Level 9.2, Corrected Calcium 10.1, Iron Level 50, Total Bilirubin 0.3, Aspartate Amino Transf (AST/SGOT) 32, Alanine Aminotransferase (ALT/SGPT) 35, Alkaline Phosphatase 93, B-Type Natriuretic Peptide 424.3H, Total Protein 6.0L, Albumin 2.9L 08/15/19 09:12: Blood Gas Puncture Site LEFT RADIAL, Blood Gas Patient Temperature 36.8, Arterial Blood pH 7.34*L, Arterial Blood Partial Pressure CO2 90*H, Arterial Blood Partial Pressure O2 69L, Arterial Blood HCO3 47*H, Arterial Blood Total CO2 50.2H, Arterial Blood Oxygen Saturation 94, Arterial Blood Base Excess 20.5H , Neil Test YES-POS, Blood Gas Ventilator Setting NO, Blood Gas Inspired Oxygen 5L 08/16/19 15:52: Glucometer 85 08/16/19 19:38: Glucometer 106 Pending Labs Laboratory Tests 08/15/19 06:25: White Blood Count 5.6, Red Blood Count 3.13, Hemoglobin 8.9, Hematocrit 30, Mean Corpuscular Volume 96, Mean Corpuscular Hemoglobin 28, Mean Corpuscular Hemoglobin Concent 30, Red Cell Distribution Width 15.6, Platelet Count 125, [place] Platelet Volume 9.8, Neutrophils (%) (Auto) 77, Lymphocytes (%) (Auto) 14, Monocytes (%) (Auto) 7, Eosinophils (%) (Auto) 2, Basophils (%) (Auto) 0, Neutrophils # (Auto) 4.3, Lymphocytes # (Auto) 0.8, Monocytes # (Auto) 0.4, Eosinophils # (Auto) 0.1, Basophils # (Auto) 0.0, Sodium Level 150, Potassium Level 3.9, Chloride Level 96, Carbon Dioxide Level 43, Anion Gap 11, Blood Urea Nitrogen 31, Creatinine 0.82, Estimat Glomerular Filtration Rate > 60, BUN/Creatinine Ratio 38, Glucose Level 82, Calcium Level 9.2, Corrected Calcium 10.1, Iron Level 50, Total Bilirubin 0.3, Aspartate Amino Transf (AST/SGOT) 32, Alanine Aminotransferase (ALT/SGPT) 35, Alkaline Phosphatase 93, B-Type Natriuretic Peptide 424.3, Total Protein 6.0, Albumin 2.9 08/15/19 09:12: Blood Gas Puncture Site LEFT RADIAL, Blood Gas Patient Temperature 36.8, Arterial Blood pH 7.34, Arterial Blood Partial Pressure CO2 90, Arterial Blood Partial Pressure O2 69, Arterial Blood HCO3 47, Arterial Blood Total CO2 50.2, Arterial Blood Oxygen Saturation 94, Arterial Blood Base Excess 20.5, Neil Test YES-POS, Blood Gas Ventilator Setting NO, Blood Gas Inspired Oxygen 5L 08/16/19 15:52: Glucometer 85 08/16/19 19:38: Glucometer 106 Discharge Home Medications: Active Scripts Active Reported Potassium Chloride 10 Meq Tablet.er 10 Meq PO DAILY Lisinopril 10 Mg Tablet 10 Mg PO DAILY Hydrocodone-Acetamin 5-325 mg (Hydrocodone/Acetaminophen) 1 Each Tablet 1 Tab PO TID PRN Furosemide 40 Mg Tablet 60 Mg PO BID Amlodipine Besylate 5 Mg Tablet 5 Mg PO DAILY Vitamin A (Vitamin A Palmitate) 10,000 Unit Capsule 10,000 Unit PO DAILY Saline Nose [place] (Sodium Chloride) 45 Ml [place] 1-2 Sprays NS UD PRN Senokot-S Tablet (Sennosides/Docusate Sodium) 1 Each Tablet 2 Tab PO DAILY Escitalopram Oxalate 20 Mg Tablet 20 Mg PO DAILY Breo Ellipta 200-25 Mcg INH (Fluticasone/Vilanterol) 1 Each Blst.w.dev 1 Puff INH 0600 Ventolin Hfa (Albuterol Sulfate) 18 Gm Hfa.aer.ad 2 Puff INH Q4H PRN Aspirin EC (Aspirin) 81 Mg Tablet.dr 81 Mg PO DAILY Metoprolol Succinate 25 Mg Tab.er.24h 12.5 Mg PO DAILY TAKES 1/2 (25MG) TABLET Daliresp (Roflumilast) 500 Mcg Tablet 500 Mcg PO DAILY Pantoprazole Sodium 40 Mg Tablet.dr 40 Mg PO DAILY Eliquis (Apixaban) 5 Mg Tablet 5 Mg PO BID Amiodarone HCl 200 Mg Tablet 200 Mg PO DAILY Buspirone HCl 10 Mg Tablet 10 Mg PO BID Sildenafil (Sildenafil Citrate) 20 Mg Tablet 20 Mg PO TID Vitamin D3 (Cholecalciferol (Vitamin D3)) 1,000 Unit Capsule 1,000 Unit PO DAILY Centrum Adults Tablet (Multivitamin/Iron/Folic Acid) 1 Each Tablet 1 Tab PO DAILY Vitamin B-12 5,000 Mcg Tab Sl (Cyanocobalamin/Cobamamide) 1 Each Tab.subl 5,000 Mcg SL DAILY Albuterol Sulfate 2.5 Mg/3 Ml Vial.neb 2.5 Mg NEB Q4H PRN Lyrica (Pregabalin) 150 Mg Capsule 150 Mg PO BID LAST FILLED 06-14-19 #60 Atorvastatin Calcium 10 Mg Tablet 10 Mg PO DAILY Instructions to patient/family Please see electronic discharge instructions given to patient. Diagnosis/Problems Diagnosis/Problems (1) Hypercapnia (2) Encephalopathy (3) Acute on chronic respiratory failure with hypoxia and hypercapnia Status: Acute (4) TERE treated with BiPAP Status: Chronic (5) Paroxysmal atrial fibrillation Status: Chronic (6) Morbid obesity Status: Chronic (7) CHF (congestive heart failure) Status: Acute (8) Pulmonary hypertension Status: Chronic (9) HLD (hyperlipidemia) Status: Chronic (10) HTN (hypertension) Status: Chronic (11) CAD (coronary artery disease) Status: Chronic (12) COPD without exacerbation Status: Chronic (13) Chronic back pain Status: Chronic (14) Hypoxia Status: Acute (15) Frequent falls Status: Chronic (16) Chronic renal insufficiency Status: Chronic (17) Immobility Status: Acute (18) Debility Status: Acute Clinical Quality Measures DVT/VTE Risk/Contraindication: Risk Factor Score Per Nursin RFS Level Per Nursing on Admit: 4+=Very High JIGNESH WASHINGTON DO Aug 15, 2019 09:35 POS
[2019-08-15 10:00] VITALS: BP 141/66
[2019-08-15] MEDS: SILDENAFIL 20 MG (REVATIO) TAB NON-FORMULARY PO SCH (10:05)
--- NOTE | 2019-08-15 10:15 | NUR ---
TRANSFERRED TO ICU BED 5 WITH O2 ON AT 5L. REPORT WAS GIVEN TO VANESSA ARAIZA.
--- NOTE | 2019-08-15 10:49 | Physical Therapy Daily Note ---
PT Daily Note-Current Subjective Patient in bed pre tx, agrees to PT, has significant back pain with movement. Will be co-treating with OT due to poor patient mobility, strength, endurance, the inability to stand, pain, the need to coordinate UE and LE during activity. Appearance Patient in therapy gym post tx in , he is getting transported to ICU due to poor ABG values. Mental Status Patient Orientation: Person, Place, Situation Attachments: Oxygen Transfers SCALE: Activities may be completed with or without assistive devices. 2-Iebxybppzm-lyogjks completes the activity by him/herself with no assistance from a helper. 5-Set-up or Clean-up Assistance-helper sets up or cleans up; patient completes activity. [place] assists only prior to or following the activity. 4-Supervision or Touching Assistance-helper provides verbal cues and/or touching/steadying and/or contact guard assistance as patient completes activity. Assistance may be provided throughout the activity or intermittently. 3-Partial/Moderate Assistance-helper does LESS THAN HALF the effort. [place] lifts, holds or supports trunk or limbs, but provides less than half the effort. 2-Substantial/Maximal Assistance-helper does MORE THAN HALF the effort. [place] lifts or holds trunk or limbs and provides more than half the effort. 5-Ynnvqssii-sojcfx does ALL the effort. Patient does none of the effort to complete the activity. Or, the assistance of 2 or more helpers is required for the patient to complete the activity. If activity was not attempted, code reason: 7-Patient Refused. 9-Not Applicable-not attempted and the patient did not perform the activity before the current illness, exacerbation or injury. 10-Not Attempted due to Environmental Limitations-(lack of equipment, weather restraints, etc.). 88-Not Attempted due to Medical Conditions or Safety Concerns. Roll Left & Right (QC): 3 Sit to Lying (QC): 3 Sit to Stand (QC): 1 Chair/Dpv-mg-Cjsyh Xfer(QC): 1 min assist for supine to sit, needs sit to stand machine for standing and transfer. Patient sits at the edge of the bed and bathes with OT assist and PT assist for sitting balance and positioning. He is dressed also. Transferred to when done. Wheelchair Training Does the Pt Use a Wheelchair?: Yes Wheel 50 ft with 2 turns (QC): 4 Type of Wheelchair: Manual 120' with SBA, slow, needs rest breaks Treatments bed mobility and transfers, WC mobility, bathing, dressing Assessment Current Status: Fair Progress Patient seems to have improved LE strength, using his legs to help scoot back onto the bed occasionally. He does get SOB with activity and needs many rest breaks to recover with purse lip breathing. PT Short Term Goals Short Term Goals Time Frame: Aug 21, 2019 Roll Left & Right: 4 Sit to lyin Lying to sitting on side of be: 4 Sit to stand: 3 Chair/mpx-pg-pourh transfer: 3 PT Mobile Health Vehicle Operator Goals Shelter Goals PT Mobile Health Vehicle Operator Goals Time Frame: Sep 04, 2019 Roll Left & Right (QC): 6 Sit to Lying (QC): 6 Lying-Sitting on Side/Bed(QC): 6 Sit to Stand (QC): 4 Chair/Syq-qx-Nqzpd Xfer(QC): 4 Toilet Transfer (QC): 4 Car Transfer (QC): 4 Does the Patient Walk: No and Walking Goal IS indicated Walk 10 feet (QC): 4 Walk 50ft with 2 Turns (QC): 4 Walk 150 ft (QC): 88 Walking 10ft on Uneven Surface: 4 1 Step (curb) (QC): 4 4 Steps (QC): 4 12 Steps (QC): 88 Picking up an Object (QC): 88 Does the Pt use WC or Scooter?: Yes Wheel 50 feet with 2 turns (QC: 6 Type: Manual Wheel 150 feet: 6 Type: Manual PT Plan Problem List Problem List: Activity Tolerance, Functional Strength, Safety, Balance, Gait, Transfer, Bed Mobility, ROM Treatment/Plan Treatment Plan: Continue Plan of Care Treatment Plan: Bed Mobility, Concurrent Therapy, Education, Functional Activity Sneha, Functional Strength, Group Therapy, Gait, Safety, Therapeutic Exercise, Transfers Treatment Duration: Sep 04, 2019 Frequency: At least 5 of 7 days/Wk (IRF) Estimated Hrs Per Day: 1.5 hours per day Patient and/or Family Agrees t: Yes Safety Risks/Education Patient Education: Transfer Techniques, Correct Positioning, W/C Management, Safety Issues Teaching Recipient: Patient Teaching Methods: Demonstration, Discussion Response to Teaching: Reinforcement Needed Time/GCodes Time In: 900 Time Out: 945 Total Billed Treatment Time: 45 Total Billed Treatment 1 visit FA 45' co-treated with OT for 45 min. PT worked on bed mobility, transfers, sitting balance and positioning during bathing and dressing, WC mobility, OT worked on bathing, dressing UE positioning during activity. DENIZ CHAMPAGNE PT Aug 15, 2019 10:49 POS
--- NOTE | 2019-08-15 10:55 | Therapy Team Discharge Summary ---
Therapy Discharge Summary Discharge Recommendations Date of Discharge Physical Therapy Patient came to rehab with acute/chron respiratory failure. Upon evaluation patient performed min assist for rolling and supine <-> sit, uses sit to stand machine for sit<-> stand and transfers, dependent for car transfers, dependent for WC mobility. Patient has been performing bed mobility and transfer training, bathing, dressing, WC mobility, and education. Patient has only been here for 2 days and has to go to ICU for medical reasons. He will be discharged from PT at this time. Now, patient performs bed mobility with min assist, transfers with dependence using a sit to stand machine. Occupational Therapy Decreased Activ Tolerance, Dependent Transfers, Impaired Funct Balance, Impaired I ADL's, Impaired Self-Care Skills PT Mcfp Goals Warp Doffer Goals PT Mcfp Goals Time Frame: Sep 04, 2019 Roll Left to Right (QC): 6 Sit to Lying (QC): 6 Lying-Sitting on Side/Bed(QC): 6 Sit to Stand (QC): 4 Chair/Afh-mp-Tvnci Xfer(QC): 4 Car Transfer (QC): 4 Does the Patient Walk: No and Walking Goal IS indicated Walk 10 feet (QC): 4 Walk 10ft-Uneven Surface(QC): 4 Walk 50ft with 2 Turns (QC): 4 Walk 150 ft (QC): 88 Does the Pt use WC or Scooter?: Yes Wheel 50 feet with 2 turns (QC: 6 1 Step (curb) (QC): 4 4 Steps (QC): 4 12 Steps (QC): 88 Picking up an Object (QC): 88 OT Warp Doffer Goals Warp Doffer Goals Time Frame: Aug 28, 2019 Eating (QC): 6 Oral Hygiene (QC): 6 Shower/Bathe Self (QC): 6 Upper Body Dressing (QC): 6 Lower Body Dressing (QC): 4 On/Off Footwear (QC): 6 Toileting Hygiene (QC): 4 Toilet/Commode Transfer (QC): 4 Additional Goals: 1-Demonstrate ADL Tasks, 2-Verbalize Understanding, 3- ImproveStrength/Sneha 1=Demonstrate adherence to instructed precautions during ADL tasks. 2=Patient will verbalize/demonstrate understanding of assistive devices/modifications for ADL. 3=Patient will improve strength/tolerance for activity to enable patient to perform ADL's. Speech Warp Doffer Goals Warp Doffer Goals The patient will improve cognitive-communication necessary for safety and daily living tasks with minimal assist. DENIZ CHAMPAGNE PT Aug 15, 2019 10:55 POS
--- NOTE | 2019-08-15 12:01 | Occupational Ther Daily Note ---
OT Current Status-Daily Note Subjective Pt. reported 8/10 back pain but states that he has already had pain medication. Appearance Pt. in bed. Agrees to work with therapy. Mental Status/Objective Patient Orientation: Person, Place, Time, Situation ADL-Treatment Therapy Code Descriptions/Definitions Functional [place] Measure: 0=Not Assessed/NA 4=Minimal Assistance 1=Total Assistance 5=Supervision or Setup 2=Maximal Assistance 6=Modified [place] 3=Moderate Assistance 7=Complete IndependenceSCALE: Activities may be completed with or without assistive devices. 5-Ivmxwahcpk-cbtbwhb completes the activity by him/herself with no assistance from a helper. 5-Set-up or Clean-up Assistance-helper sets up or cleans up; patient completes activity. [place] assists only prior to or following the activity. 4-Supervision or Touching Assistance-helper provides verbal cues and/or touching/steadying and/or contact guard assistance as patient completes activity. Assistance may be provided throughout the activity or intermittently. 3-Partial/Moderate Assistance-helper does LESS THAN HALF the effort. [place] lifts, holds or supports trunk or limbs, but provides less than half the effort. 2-Substantial/Maximal Assistance-helper does MORE THAN HALF the effort. [place] lifts or holds trunk or limbs and provides more than half the effort. 3-Gfguyliyq-ebtvzr does ALL the effort. Patient does none of the effort to complete the activity. Or, the assistance of 2 or more helpers is required for the patient to complete the activity. If activity was not attempted, code reason: 7-Patient Refused. 9-Not Applicable-not attempted and the patient did not perform the activity before the current illness, exacerbation or injury. 10-Not Attempted due to Environmental Limitations-(lack of equipment, weather restraints, etc.). 88-Not Attempted due to Medical Conditions or Safety Concerns. Eating (QC): 5 Oral Hygiene (QC): 7 (Pt. declined) Shower/Bathe Self (QC): 2 (SBA to wash upper body. Max assist to wash bilateral LE and shira area.) Upper Body Dressing (QC): 5 (Set up) Lower Body Dressing (QC): 2 Toileting Hygiene (QC): 7 Toilet Transfer (QC): 7 Other Treatment Pt. seen for co-treat with PT/OT due to fatigue/pain level, complicated medical status, and need of two skilled therapists. OT facilitated ADL skills while PT focused on transfers. Pt. transferred supine-sit with min assist. However, required dependent assist with sit-stand lift for transfer to wheelchair. Completed sponge bath/dressing with max assist overall. Pt. fatigued throughout treatment, with constant wheezing. Pt. on 5 L 02 throughout treatment. Multiple breaks needed. Began to take sats but during treatment, nursing came in to make therapy aware that pt's blood gas panel came back and pt. was to transfer to ICU due to change in medical status. Pt. made comfortable and was transferred to ICU. Education OT Patient Education: Correct positioning, Modified ADL techniques, Progress toward Goal/Update tx plan, Purpose of tx/functional activities, Reviewed precautions, Rehab process, Transfer techniques Teaching Recipient: Patient Teaching Methods: Demonstration, Discussion Response to Teaching: Verbalize Understanding, Return Demonstration OT Short Term Goals Short Term Goals Time Frame: Aug 21, 2019 Upper body dressin Lower body dressin Putting on/taking off footwear: 3 OT Mixing Machine Tender Cork Gasket Goals [facility] Goals Time Frame: Aug 28, 2019 Eating (QC): 6 Oral Hygiene (QC): 6 Toileting Hygiene (QC): 4 Shower/Bathe Self (QC): 6 Upper Body Dressing (QC): 6 Lower Body Dressing (QC): 4 On/Off Footwear (QC): 6 Additional Goals: 1-Demonstrate ADL Tasks, 2-Verbalize Understanding, 3- ImproveStrength/Sneha 1=Demonstrate adherence to instructed precautions during ADL tasks. 2=Patient will verbalize/demonstrate understanding of assistive devices/modifications for ADL. 3=Patient will improve strength/tolerance for activity to enable patient to perform ADL's. OT Education/Plan Problem List/Assessment Assessment: Decreased Activ Tolerance, Decreased UE Strength, Dependent Transfers, Impaired Bed Mobility, Impaired Funct Balance, Impaired I ADL's, Impaired Self-Care Skills, Restricted Funct UE ROM Discharge Recommendations Plan/Recommendations: Hold Tx (Pt. transferred to ICU due to change in medical status.) Treatment Plan/Plan of Care Treatment,Training & Education: Yes Patient would benefit from OT for education, treatment and training to promote independence in ADL's, mobility, safety and/or upper extremity function for ADL's. Plan of Care: ADL Retraining, Caregiver Training, Concurrent Therapy, Functional Mobility, Group Exercise/Act as Ind, UE Funct Exercise/Act, W/C Management Training Treatment Duration: Aug 28, 2019 Frequency: Modified Program (IRF) Estimated Hrs Per Day: 1.5 hours per day (This is to change due to discharge to ICU.) Agreement: Yes Rehab Potential: Fair Time/GCodes Start Time: 09:00 Stop Time: 09:45 Total Time Billed (hr/min): 45 Billed Treatment Time 1, ADL x 3 Co-treatment with PT. Please see above note. Pt. discharged to ICU at this time due to change in medical status. SHELL SHARMA OT Aug 15, 2019 12:01 POS
--- NOTE | 2019-08-15 12:05 | Therapy Team Discharge Summary ---
Therapy Discharge Summary Discharge Recommendations Date of Discharge Aug 15, 2019 at 11:00 Therapy D/C Recommendations: 24 hr Supervision Occupational Therapy Pt. did not meet goals as he was discharged to ICU this date due to change in medical status. Decreased Activ Tolerance, Decreased UE Strength, Dependent Transfers, Impaired Bed Mobility, Impaired Funct Balance, Impaired I ADL's, Impaired Self-Care Skills, Restricted Funct UE ROM PT Senior Living Goals Senior Living Goals PT Senior Living Goals Time Frame: Sep 04, 2019 Roll Left to Right (QC): 6 Sit to Lying (QC): 6 Lying-Sitting on Side/Bed(QC): 6 Sit to Stand (QC): 4 Chair/Jxq-jz-Chlmp Xfer(QC): 4 Car Transfer (QC): 4 Does the Patient Walk: No and Walking Goal IS indicated Walk 10 feet (QC): 4 Walk 10ft-Uneven Surface(QC): 4 Walk 50ft with 2 Turns (QC): 4 Walk 150 ft (QC): 88 Does the Pt use WC or Scooter?: Yes Wheel 50 feet with 2 turns (QC: 6 1 Step (curb) (QC): 4 4 Steps (QC): 4 12 Steps (QC): 88 Picking up an Object (QC): 88 OT Map And Chart Mounter Goals Senior Living Goals Time Frame: Aug 28, 2019 Eating (QC): 6 (not met) Oral Hygiene (QC): 6 (not met) Shower/Bathe Self (QC): 6 (not met) Upper Body Dressing (QC): 6 (not met) Lower Body Dressing (QC): 4 (not met) On/Off Footwear (QC): 6 (not met) Toileting Hygiene (QC): 4 (not met) Toilet/Commode Transfer (QC): 4 (not met) Additional Goals: 1-Demonstrate ADL Tasks, 2-Verbalize Understanding, 3- ImproveStrength/Sneha 1=Demonstrate adherence to instructed precautions during ADL tasks. 2=Patient will verbalize/demonstrate understanding of assistive devices/modifications for ADL. 3=Patient will improve strength/tolerance for activity to enable patient to perform ADL's. Speech Map And Chart Mounter Goals Senior Living Goals The patient will improve cognitive-communication necessary for safety and daily living tasks with minimal assist. SHELL SHARMA OT Aug 15, 2019 12:05 POS
[2019-08-15] MEDS ORDERED: POTA10TA10 PO (13:33)
[2019-08-15] MEDS ORDERED: FURO40TA4 PO (13:33)
[2019-08-15] MEDS ORDERED: HYDR-3812 PO (13:33)
[2019-08-15] MEDS ORDERED: AMLO5TAB9 PO (13:33)
[2019-08-15] MEDS ORDERED: LISI10TA2 PO (13:33)
--- NOTE | 2019-08-16 10:46 | Therapy Team Discharge Summary ---
Therapy Discharge Summary Discharge Recommendations Date of Discharge Aug 15, 2019 at 11:00 Therapy D/C Recommendations: 24 hr Supervision Occupational Therapy Decreased Activ Tolerance, Decreased UE Strength, Dependent Transfers, Impaired Bed Mobility, Impaired Funct Balance, Impaired I ADL's, Impaired Self-Care Skills, Restricted Funct UE ROM Speech-Language Pathology Patient was discharged to ICU due to medical status. PT Retirement Goals Pie Maker Machine Goals PT Pie Maker Machine Goals Time Frame: Sep 04, 2019 Roll Left to Right (QC): 6 Sit to Lying (QC): 6 Lying-Sitting on Side/Bed(QC): 6 Sit to Stand (QC): 4 Chair/Jhz-zm-Ssfqp Xfer(QC): 4 Car Transfer (QC): 4 Does the Patient Walk: No and Walking Goal IS indicated Walk 10 feet (QC): 4 Walk 10ft-Uneven Surface(QC): 4 Walk 50ft with 2 Turns (QC): 4 Walk 150 ft (QC): 88 Does the Pt use WC or Scooter?: Yes Wheel 50 feet with 2 turns (QC: 6 1 Step (curb) (QC): 4 4 Steps (QC): 4 12 Steps (QC): 88 Picking up an Object (QC): 88 OT Retirement Goals Pie Maker Machine Goals Time Frame: Aug 28, 2019 Eating (QC): 6 (not met) Oral Hygiene (QC): 6 (not met) Shower/Bathe Self (QC): 6 (not met) Upper Body Dressing (QC): 6 (not met) Lower Body Dressing (QC): 4 (not met) On/Off Footwear (QC): 6 (not met) Toileting Hygiene (QC): 4 (not met) Toilet/Commode Transfer (QC): 4 (not met) Additional Goals: 1-Demonstrate ADL Tasks, 2-Verbalize Understanding, 3-ImproveStrength/Sneha 1=Demonstrate adherence to instructed precautions during ADL tasks. 2=Patient will verbalize/demonstrate understanding of assistive devices/modifications for ADL. 3=Patient will improve strength/tolerance for activity to enable patient to perform ADL's. Speech Pie Maker Machine Goals Pie Maker Machine Goals The patient will improve cognitive-communication necessary for safety and daily living tasks with minimal assist. JOSE ART Aug 16, 2019 10:46 POS
[2019-08-17] MEDS ORDERED: HYDR-3812 PO (09:48)
== END 2019-08-15 11:00 | disposition short-term general hospital (02) | DRG 91 ==
LOC: ICU 08-15 10:16
PROVIDERS: ADMIT Internal Medicine; ATTEND Internal Medicine
DX: G72.81 Critical illness myopathy (principal); G92 Toxic encephalopathy; J96.21 Acute and chronic respiratory failure with hypoxia; J96.22 Acute and chronic respiratory failure with hypercapnia; G47.33 Obstructive sleep apnea (adult) (pediatric); I48.0 Paroxysmal atrial fibrillation; E66.01 Morbid (severe) obesity due to excess calories; Z68.42 Body mass index [BMI] 45.0-49.9, adult; J43.9 Emphysema, unspecified; J42 Unspecified chronic bronchitis; I13.0 Hypertensive heart and chronic kidney disease with heart failure and stage 1 through stage 4 chronic kidney disease, or unspecified chronic kidney disease; N18.9 Chronic kidney disease, unspecified; I50.9 Heart failure, unspecified; E11.40 Type 2 diabetes mellitus with diabetic neuropathy, unspecified; E78.5 Hyperlipidemia, unspecified; I27.20 Pulmonary hypertension, unspecified; I25.10 Atherosclerotic heart disease of native coronary artery without angina pectoris; R29.6 Repeated falls; R19.7 Diarrhea, unspecified; M54.9 Dorsalgia, unspecified; F41.9 Anxiety disorder, unspecified; F32.9 Major depressive disorder, single episode, unspecified; H54.3 Unqualified visual loss, both eyes; M81.0 Age-related osteoporosis without current pathological fracture; Z87.01 Personal history of pneumonia (recurrent); Z87.891 Personal history of nicotine dependence
CPT/HCPCS: 36415; 36600; 80053; 82805; 82962; 83540; 83880; 85025; 94640; 94660; 94760

== ENCOUNTER 2019-08-18 08:39 | Inpatient (IN) | payer MEDICARE ==
[~2019-08-18] VITALS: Ht 177 cm; Wt 139.5 kg
[2019-08-18] VITALS (16 sets, daily range): BP systolic 100–142; BP diastolic 45–62
[~2019-08-18 08:39] MED LIST changes: -ACETAMINOPHEN 500 MG TAB (TYLENOL) PO PRN; -ALPRAZolam 0.25 MG (XANAX) TAB PO PRN; -BISACODYL 10 MG SUPP (DULCOLAX) PR PRN; +BUME2TAB7 PO; -CALCIUM CARBONATE 500 MG (TUMS) TAB.CHEW PO PRN; -DOCUSATE SODIUM 100 MG (COLACE) CAP PO PRN; -FLEET ENEMA ADULT 1 EA BTL PR PRN; -LACTULOSE SYRUP 10GM/15ML (ENULOSE) 30ML UDC PO PRN; -LOPERAMIDE 2 MG (IMODIUM) TABLET PO PRN; -MELATONIN 3 MG TABLET PO PRN; -ONDANSETRON 4 MG (ZOFRAN) ORAL DISSOLVE TAB PO PRN; -ONDANSETRON 4 MG/2 ML (SDV) Z0FRAN IV PRN; +OXYC-473 PO; +SENN-40 PO; +SODI45SP9 NS; -diphenhydrAMINE 25 MG TAB (BENADRYL) PO PRN; -guaiFENesin/CODEINE (ROBITUSSIN AC) 10ML UDC PO PRN
[2019-08-18] MEDS ORDERED: methylPREDNISolone 125 MG (Solu-MEDROL) VIAL IV STA (08:52)
[2019-08-18] MEDS ORDERED: RT-ALBUTEROL SULF 2.5 MG/3 ML PRE-MIX VIAL INH STA (08:52)
[2019-08-18] MEDS ORDERED: DEXAMETHASONE 4 MG/ML SDV (DECADRON) IH ONE (09:00)
[2019-08-18] MEDS ORDERED: RT-ALBUTEROL/IPRATROPIUM 3 ML (DUONEB) VIAL INH ONE (09:00)
[2019-08-18 09:03] LABS: BASOPHILS % (AUTO) 0 % (0-10); EOSINOPHILS # (AUTO) 0.1 10^3/uL (0.0-0.3); EOSINOPHILS % (AUTO) 1 % (0-10); HEMATOCRIT 31 % (40-54); HEMOGLOBIN 9.5 G/DL (13.3-17.7); LYMPHOCYTES # (AUTO) 1.1 X 10^3 (1.0-4.0); LYMPHOCYTES % (AUTO) 13 % (12-44); MEAN CORPUSCULAR HEMOGLOBIN 29 PG (25-34); MEAN CORPUSCULAR HGB CONC 31 G/DL (32-36); MEAN CORPUSCULAR VOLUME 93 FL (80-99); MEAN PLATELET VOLUME 9.6 FL (7.4-10.4); MONOCYTES # (AUTO) 0.4 X 10^3 (0.0-1.0); MONOCYTES % (AUTO) 5 % (0-12); NEUTROPHILS # (AUTO) 6.6 X 10^3 (1.8-7.8); NEUTROPHILS % (AUTO) 80 % (42-75); PLATELET COUNT 248 10^3/uL (130-400); WHITE BLOOD COUNT 8.2 10^3/uL (4.3-11.0)
[2019-08-18 09:04] LABS: ABG BASE EXCESS 17.3 MMOL/L (-2.5-2.5); ABG OXYGEN SATURATION 98 % (94-100); ABG PO2 103 MMHG (79-93); ABG TCO2 47.7 MMOL/L (21.0-31.0)
[2019-08-18 09:06] LABS: ABG PCO2 92 MMHG (35-45); ALLENS TEST YES-POS; INSPIRED O2 50% BIPAP; PATIENT TEMP 35.7; VENTILATOR NO
[2019-08-18 09:15] LABS: INR 0.9 (0.8-1.4); PROTHROMBIN TIME PATIENT 12.7 SEC (12.2-14.7)
--- NOTE | 2019-08-18 09:19 | Diagnostic Imaging Report ---
Portable chest is compared to prior study from the previous day. INDICATION: Shortness of breath. FINDINGS: There is a stable enlargement of the cardiac silhouette. There are persistent bilateral pleural effusions as well as abnormal prominence of the pulmonary interstitial markings. The findings suggest ongoing edema. There also however appears to be regions of nodular infiltrates at both lung bases as on recent CT of the chest. Enlarged pulmonary arteries again noted. There is no pneumothorax. IMPRESSION: 1. Enlarged cardiac silhouette with prominent interstitial markings and pleural effusions suggest a component of edema. As demonstrated on the prior CT however there are also basilar nodular opacities that suggest a superimposed infectious process. The overall findings are not significantly changed from the prior exam. Dictated by: Dictated on workstation # [id number]
[2019-08-18 09:24] LABS: ALANINE AMINOTRANSFERASE 47 U/L (0-55); ALBUMIN 3.5 GM/DL (3.2-4.5); ALKALINE PHOSPHATASE 126 U/L (40-136); BILIRUBIN,TOTAL 0.3 MG/DL (0.1-1.0); BUN/CREATININE RATIO 23; CALCIUM 9.5 MG/DL (8.5-10.1); CARBON DIOXIDE 34 MMOL/L (21-32); CHLORIDE 91 MMOL/L (98-107); CREATINE KINASE 27 U/L (30-200); CREATININE SERUM 0.98 MG/DL (0.60-1.30); GFR ESTIMATED > 60; GLUCOSE 115 MG/DL (70-105); MAGNESIUM 2.1 MG/DL (1.6-2.4); POTASSIUM 5.2 MMOL/L (3.6-5.0); SODIUM 140 MMOL/L (135-145); TOTAL PROTEIN 7.9 GM/DL (6.4-8.2)
[2019-08-18 09:30] LABS: CREATINE KINASE MB 2.1 NG/ML (<6.6)
[2019-08-18] MEDS ORDERED: FUROSEMIDE 40 MG/4 ML INJ (LASIX) IVP ONE (09:30)
[2019-08-18 09:57] LABS: ABG BASE EXCESS 17.7 MMOL/L (-2.5-2.5); ABG OXYGEN SATURATION 92 % (94-100); ABG PH 7.37 (7.37-7.43); ABG PO2 61 MMHG (79-93); ABG TCO2 46.5 MMOL/L (21.0-31.0)
[2019-08-18 09:59] LABS: ABG PCO2 78 MMHG (35-45); ALLENS TEST YES-POS; INSPIRED O2 40%; PATIENT TEMP 36.5; VENTILATOR YES
[2019-08-18] MEDS ORDERED: ONDANSETRON 4 MG (ZOFRAN) ORAL DISSOLVE TAB PO PRN (11:15)
[2019-08-18] MEDS ORDERED: CATHETER FLUSH 10 ML SYR IV PRN (11:15)
[2019-08-18] MEDS ORDERED: HOLD METFORMIN - RECEIVED CONTRAST 20 ML VIAL IV SCH (11:15)
[2019-08-18] MEDS ORDERED: ONDANSETRON 4 MG/2 ML (SDV) Z0FRAN IV PRN (11:15)
[2019-08-18] MEDS ORDERED: POLYETHYLENE GLYCOL 17 GM (MIRALAX) PACK PO PRN (11:15)
[2019-08-18] MEDS ORDERED: BISACODYL 10 MG SUPP (DULCOLAX) PR PRN (11:15)
[2019-08-18] MEDS ORDERED: ACETAMINOPHEN 325 MG TABLET PO PRN (11:15)
--- NOTE | 2019-08-18 11:20 | NUR ---
Report received from Yuli ARAIZA. Pt arrived to room CU9 at 1120. Pt on bipap at 40%o2 upon arrival. Pt is alert but drowsy. 20g IV to R shoulder, saeed catheter in place, patent and draining. Pt refused SCD's. Bed in lowest position, side rails up, call light in reach, will continue to monitor.
--- NOTE | 2019-08-18 11:33 | History & Physical-Hospitalist ---
History of Present Illness HPI/Chief Complaint Kennedy Lopez is a 63yoM with multiple comorbidities including COPD, TERE on BiPAP, HFpEF, morbid obesity, paroxysmal atrial fibrillation, hypertension, who presented from [facility] with somnolence. He was discharged yesterday after being admitted with somnolence due to acute hypercapnic respiratory failure which was treated with BiPAP. He was instructed to wear his BiPAP all night every night with a full face mask. He reportedly was not wearing his BiPAP last night and or nasal cannula for part of the night. Upon arrival he was found to be somnolent and an ABG revealed a acute hypercapn ic respiratory failure with low pH and elevated CO2. He will be admitted to the ICU on BiPAP. Source: old records Exam Limitations: clinical condition Date Seen 08/18/19 Time Seen by a Provider: 11:15 Attending Physician Ivan Fong MD PCP Ricky Cleveland DO Referring Physician Date of Admission Aug 18, 2019 at 10:02 Home Medications & Allergies Home Medications Reviewed patient Home Medication Reconciliation performed by pharmacy medication reconciliations motor vehicle technician and/or nursing. Patients Allergies have been reviewed. Allergies Allergies Coded Allergies cephalexin (Verified Adverse Reaction, Unknown, unknown- tolerated Rocephin with no issue 06/2019, 06/29/19) Past Whhkkln-Bovfkq-Ikdxyl Hx Past Med/Social Hx: Reviewed Nursing Past Med/Soc Hx Patient Social History Alcohol Use: Denies Use Number of Drinks Today: Alcohol Beverage of Choice: Wine Recreational Drug Use: No Drug of Choice: past history THC Smoking Status: Former Smoker Former Smoker, Quit: Sep 18, 2015 Type Used: Cigarettes 2nd Hand Smoke Exposure: No Recent Foreign Travel: No Contact w/other who traveled: No Recent Hopitalizations: Yes Recent Infectious Disease Expo: No Immunizations Up To Date Tetanus Booster (TDap): Unknown Date of Pneumonia Vaccine: Sep 04, 2012 Date of Influenza Vaccine: Jul 05, 2019 Seasonal Allergies Seasonal Allergies: Yes Past Medical History Surgeries: Cardiac, Vasectomy Respiratory: COPD, Emphysema, Pneumonia, Sleep Apnea Currently Using CPAP: Yes Currently Using BIPAP: Yes Cardiac: Atrial Fibrillation, Chronic Edema/Swelling, Coronary Artery Disease, High Cholesterol, Hypertension, Valvular Heart Disease Neurological: Neuropathy Reproductive: No Sexually Transmitted Disease: No HIV/AIDS: No Genitourinary: Renal Failure Gastrointestinal: Colitis, Gastroesophageal Reflux Musculoskeletal: Degenerate Disk Disease, Osteoporosis, Arthritis, Back Injury, Chronic Back Pain, Fractures, Spasms Endocrine: Diabetes, Non-Insulin dep Loss of Vision: Bilateral Hearing Impairment: Denies Psychosocial: Anxiety, Depression History of Blood Disorders: No Adverse Reaction to Blood [place]: No Family History Arthritis 19 MOTHER Cardiovascular disease 19 MOTHER FH: lung cancer 19 FATHER Hypertension 19 MOTHER No Family History of: AIDS Abdominal aortic aneurysm Leflore's disease Alcoholism Alzheimer's disease Aphasia Asthma Cancer of mouth Cataracts Colon cancer Completed stroke Congenital disease Congenital heart disease Coronary thrombosis Cystic fibrosis Deafness or hearing loss Dementia Diabetes mellitus Drug abuse Dysphasia Fibrocystic disease of breast Gastroenteritis Glaucoma Headache disorder Hypercholesterolemia Infertility Kidney disease Myocardial infarction Neoplasm Not obtainable due to adoption Osteoporosis Parkinson's disease Prostate cancer Psychosocial problem Respiratory disorder Seizure disorder Severe allergy Thyroid disease Tuberculosis Visual disorder AAA, Heart Disease, Cancer, Hypertension Review of Systems ROS-Unable to Obtain: obtunded Constitutional: see HPI Physical Exam Physical Exam Vital Signs Vital Signs - First Documented 08/18/19 08/18/19 08:45 09:08 Temp 36.4 Pulse 70 Resp 24 B/P (MAP) 173/68 (103) Pulse Ox 91 O2 Delivery NIV Bilevel O2 Flow Rate 30.00 Capillary Refill : Greater Than 3 Seconds Height, Weight, BMI Height: 5'10.00" Weight: 348lbs. 6.0oz. 158.906177vy; 43.00 BMI Method:Stated General Appearance: Moderate Distress, Obese, Other (obtunded) HEENT: Other (wearing BiPAP) Neck: Normal Inspection, Supple Respiratory: Lungs Clear, Normal Breath Sounds, No Respiratory Distress, Other (wearing BiPAP) Cardiovascular: Regular Rate, Rhythm, No Edema, No Murmur Gastrointestinal: Normal Bowel Sounds, Soft; No Distended Extremity: Normal Inspection, Non Tender, Pedal Edema Neurologic/Psychiatric: Other (obtunded) Skin: Warm/Dry, Pallor Results Results/Procedures Labs Laboratory Tests 08/18/19 08:54 Patient resulted labs reviewed. Imaging: Reviewed Imaging Report Assessment/Plan Admission Diagnosis acute on chronic respiratory failure with hypoxemia and hypercapnia Admission Status: Inpatient Order (span 2 midnights) Reason for Inpatient Admission: respiratory failure requiring BiPAP Assessment and Plan Acute on chronic respiratory failure with hypoxia and hypercapnia TERE on BiPAP Chronic heart failure with preserved ejection fraction Pulmonary hypertension Morbid obesity COPD without acute exacerbation Chest xray stable ABG with pH 7.3 and CO2 90 Obtunded on arrival, started on BiPAP nothing by mouth Admit to ICU, assess response and may require intubation if failing to improve continue home meds and inhalers when able nonadherent with BiPAP palliative care consulted, would benefit from hospice Paroxysmal atrial fibrillation Continue metoprolol and Eliquis when able Begin therapeutic Lovenox while unable to take Eliquis Hyperlipidemia GERD Continue home meds when able DVT prophylaxis: Already receiving therapeutic anticoagulation Critical Care Critically Ill Patient CC Start/Stop Time : Critical Care Start Date: Aug 18, 2019 Critical Care Start Time: 11:15 Stop date: Aug 18, 2019 Stop Time: 11:30 Diagnosis/Problems Diagnosis/Problems (1) Acute on chronic respiratory failure with hypoxia and hypercapnia Status: Acute (2) Non-adherence to medical treatment Status: Acute IVAN FONG MD Aug 18, 2019 11:33 POS
[2019-08-18] MEDS: SILDENAFIL 20 MG (REVATIO) TAB NON-FORMULARY PO SCH ×2 (14:04→21:25)
[2019-08-18] MEDS: ENOXAPARIN 300 MG/3 ML (LOVENOX) MULTI-DOSE VIAL SQ SCH (14:04)
[2019-08-18] MEDS: RT-ALBUTEROL/IPRATROPIUM 3 ML (DUONEB) VIAL INH SCH ×3 (14:39→21:51)
[2019-08-18] MEDS: inSUlin ASPART (NovoLOG) 1 UNIT/0.01 ML (CHARGE PER UNIT) SC SCH ×2 (16:23→21:33)
--- NOTE | 2019-08-18 16:57 | Consultation-Cardiology ---
HPI-Cardiology Cardiology Consultation: Date of Consultation 08/18/19 Time Seen by a Provider: 15:10 Date of Admission Attending Physician Ivan Fong MD Admitting Physician Ricky Cleveland DO Consulting Physician PATSY SERVIN MD, MA, FACP, FACC, FSCAI, CCDS HPI: Chief Complaint: CC: Shortness of breath HPI 63 yo man who has chronic resp failure and who was discharged from the [facility] yesterday after hosp for ac resp failure is admitted again with worsening resp status this am: increasing shortness of breath, somnolence, poor responsiveness He denies cp or palp or syncope Does report gen weakness and malaise. Does not report fever or chills Review of Systems-Cardiology Review of Systems Constitutional: malaise, tiredness; No weight loss, No weight gain Eyes: No vision change Ears/Nose/Throat: No ear discharge, No recent hearing loss Respiratory: As described under HPI Cardiovascular: As described under HPI Gastrointestinal: No diarrhea, No nausea, No vomiting Genitourinary: No dysuria, No hematuria, No urine frequency changes Musculoskeletal: back pain (chronic) Skin: No rash, No ulcerations Psychiatric/Neurological: No seizure, No focal weakness, No syncope Hematologic: No bleeding abnormalities NMC-Ghjevn-Bympxz Hx Patient Social History Alcohol Use: Denies Use Recreational Drug Use: No Drug of Choice: past history THC Smoking Status: Former Smoker Type Used: Cigarettes 2nd Hand Smoke Exposure: No Recent Foreign Travel: No Recent Infectious Disease Expo: No Immunizations Up To Date Tetanus Booster (TDap): Unknown Date of Pneumonia Vaccine: Sep 04, 2012 Date of Influenza Vaccine: Jul 05, 2019 Past Medical History PMH As described under Assessment. Family Medical History Family Medical History: He has not reported a family history of early coraonary arery disease or sudden cardiac or stroke. Family History: Arthritis 19 MOTHER Cardiovascular disease 19 MOTHER FH: lung cancer 19 FATHER Hypertension 19 MOTHER No Family History of: AIDS Abdominal aortic aneurysm Sharkey's disease Alcoholism Alzheimer's disease Aphasia Asthma Cancer of mouth Cataracts Colon cancer Completed stroke Congenital disease Congenital heart disease Coronary thrombosis Cystic fibrosis Deafness or hearing loss Dementia Diabetes mellitus Drug abuse Dysphasia Fibrocystic disease of breast Gastroenteritis Glaucoma Headache disorder Hypercholesterolemia Infertility Kidney disease Myocardial infarction Neoplasm Not obtainable due to adoption Osteoporosis Parkinson's disease Prostate cancer Psychosocial problem Respiratory disorder Seizure disorder Severe allergy Thyroid disease Tuberculosis Visual disorder Allergies and Home Medications Allergies Coded Allergies: cephalexin (Verified Adverse Reaction, Unknown, unknown- tolerated Rocephin with no issue 06/2019, 06/29/19) Home Medications Albuterol Sulfate 2.5 Mg/3 Ml Vial.neb, 2.5 MG NEB Q4H PRN for SHORTNESS OF BREATH, (Reported) Albuterol Sulfate 18 Gm Hfa.aer.ad, 2 PUFF INH Q4H PRN for SHORTNESS OF BREATH, (Reported) Amiodarone HCl 200 Mg Tablet, 200 MG PO DAILY, (Reported) Amlodipine Besylate 5 Mg Tablet, 5 MG PO DAILY, (Reported) Apixaban 5 Mg Tablet, 5 MG PO BID, (Reported) Aspirin 81 Mg Tablet.dr, 81 MG PO DAILY, (Reported) Atorvastatin Calcium 10 Mg Tablet, 10 MG PO DAILY, (Reported) Buspirone HCl 10 Mg Tablet, 10 MG PO BID, (Reported) Cholecalciferol (Vitamin D3) 1,000 Unit Capsule, 1,000 UNIT PO DAILY, (Reported) Cyanocobalamin/Cobamamide 1 Each Tab.subl, 5,000 MCG SL DAILY, (Reported) Escitalopram Oxalate 20 Mg Tablet, 20 MG PO DAILY, (Reported) Fluticasone/Vilanterol 1 Each Blst.w.dev, 1 PUFF INH 0600, (Reported) Furosemide 40 Mg Tablet, 60 MG PO BID, (Reported) Hydrocodone/Acetaminophen 1 Each Tablet, 1 TAB PO TID PRN for PAIN-MODERATE (5- 7) Prescribed by: IVAN FONG on 08/17/19 0948 Lisinopril 10 Mg Tablet, 10 MG PO DAILY, (Reported) Metoprolol Succinate 25 Mg Tab.er.24h, 12.5 MG PO DAILY, (Reported) TAKES 1/2 (25MG) TABLET Multivitamin/Iron/Folic Acid 1 Each Tablet, 1 TAB PO DAILY, (Reported) Pantoprazole Sodium 40 Mg Tablet.dr, 40 MG PO DAILY, (Reported) Potassium Chloride 10 Meq Tablet.er, 10 MEQ PO DAILY, (Reported) Pregabalin 150 Mg Capsule, 150 MG PO BID, (Reported) LAST FILLED 06-14-19 #60 Roflumilast 500 Mcg Tablet, 500 MCG PO DAILY, (Reported) Sennosides/Docusate Sodium 1 Each Tablet, 2 TAB PO DAILY, (Reported) Sildenafil Citrate 20 Mg Tablet, 20 MG PO TID, (Reported) Sodium Chloride 45 Ml Velpen, 1-2 SPRAYS NS UD PRN for DRY NOSE, (Reported) Vitamin A Palmitate 10,000 Unit Capsule, 10,000 UNIT PO DAILY, (Reported) Patient Home Medication List Home Medication List Reviewed: Yes Physical Exam-Cardiology Physical Exam Vital Signs/I&O 08/18/19 08/18/19 08/18/19 08/18/19 08:45 09:08 11:24 11:32 Temp 36.4 Pulse 70 70 69 Resp 24 22 22 B/P (MAP) 173/68 (103) 128/52 Pulse Ox 91 92 94 O2 Delivery NIV Bilevel NIV Bilevel NIV Bilevel O2 Flow Rate 30.00 FiO2 40 08/18/19 08/18/19 08/18/19 08/18/19 12:00 12:00 12:00 12:00 Temp 36.1 Pulse 64 65 Resp 23 B/P (MAP) 125/52 (76) Pulse Ox 97 92 O2 Delivery NIV Bilevel NIV Bilevel O2 Flow Rate 40.00 30.00 FiO2 40 08/18/19 08/18/19 08/18/19 08/18/19 12:18 13:00 14:15 14:39 Pulse 60 66 67 71 Resp 23 B/P (MAP) 119/52 (74) 135/62 (86) Pulse Ox 95 96 92 O2 Delivery NIV Bilevel NIV Bilevel O2 Flow Rate 40.00 40.00 30.00 08/18/19 08/18/19 08/18/19 15:00 16:00 16:00 Temp 36.9 Pulse 67 68 Resp 22 19 B/P (MAP) 123/51 (75) 125/51 (75) O2 Delivery NIV Bilevel NIV Bilevel O2 Flow Rate 40.00 40.00 Capillary Refill : Greater Than 3 Seconds Constitutional: other (on BiPAP, does appear alert and O x 3) HEENT: PERRL, EOMI; No xanthelasmas are seen Neck: carotid pulses are 2 + bilaterally, with good upstrokes Respiratory: other (on BiPAP, fair to good air entry, diminished at the bases, prolonged exp) Cardiovascular: regular rate-rhythm, S1 and S2, systolic murmur (soft LAWRENCE at card base) Gastrointestinal: No tender; distended; No guarding, No rebound; audible bowel sounds Extremities: swelling (chronic pitting and non-pitting edema of the legs); No clubbing, No ecchymosis Neurologic/Psychiatric: oriented x 3, other (moves all limbs equally) Skin: No rash on exposed areas, No ulcerations on exposed areas Data Review Labs Laboratory Tests 08/18/19 08:53: Blood Gas Puncture Site LT RADIAL, Blood Gas Patient Temperature 35.7, Arterial Blood pH 7.30*L, Arterial Blood Partial Pressure CO2 92*H, Arterial Blood Part ial Pressure O2 103H, Arterial Blood HCO3 45*H, Arterial Blood Total CO2 47.7H, Arterial Blood Oxygen Saturation 98, Arterial Blood Base Excess 17.3H, Neil Test YES-POS, Blood Gas Ventilator Setting NO, Blood Gas Inspired Oxygen 50% BIPAP 08/18/19 08:54: White Blood Count 8.2, Red Blood Count 3.31L, Hemoglobin 9.5L, Hematocrit 31L, Mean Corpuscular Volume 93, Mean Corpuscular Hemoglobin 29, Mean Corpuscular Hemoglobin Concent 31L, Red Cell Distribution Width 16.0H, Platelet Count 248, Mean Platelet Volume 9.6, Neutrophils (%) (Auto) 80H, Lymphocytes (%) (Auto) 13, Monocytes (%) (Auto) 5, Eosinophils (%) (Auto) 1, Basophils (%) (Auto) 0, Neutrophils # (Auto) 6.6, Lymphocytes # (Auto) 1.1, Monocytes # (Auto) 0.4, Eosinophils # (Auto) 0.1, Basophils # (Auto) 0.0, Prothrombin Time 12.7, INR Comment 0.9, Activated Partial Thromboplast Time 27, Sodium Level 140, Potassium Level 5.2H, Chloride Level 91L, Carbon Dioxide Level 34H, Anion Gap 15H, Blood Urea Nitrogen 23H, Creatinine 0.98, Estimat Glomerular Filtration Rate > 60, BUN/Creatinine Ratio 23, Glucose Level 115H, Calcium Level 9.5, Corrected Calcium 9.9, Magnesium Level 2.1, Total Bilirubin 0.3, Aspartate Amino Transf (AST/SGOT) 48H, Alanine Aminotransferase (ALT/SGPT) 47, Alkaline Phosphatase 126, Total Creatine Kinase 27L, Creatine Kinase MB 2.1, Troponin I 0.034H, B- Type Natriuretic Peptide 373.8H, Total Protein 7.9, Albumin 3.5 08/18/19 09:46: Blood Gas Puncture Site L RAD, Blood Gas Patient Temperature 36.5, Arterial Blood pH 7.37, Arterial Blood Partial Pressure CO2 78*H, Arterial Blood Partial Pressure O2 61L, Arterial Blood HCO3 44*H, Arterial Blood Total CO2 46.5H, Arterial Blood Oxygen Saturation 92L, Arterial Blood Base Excess 17.7H, Neil Test YES-POS, Blood Gas Ventilator Setting YES, Blood Gas Inspired Oxygen 40% 08/18/19 15:58: Glucometer 180H Laboratory Tests 08/18/19 08:54 A/P-Cardiology Assessment/Admission Diagnosis Acute, Type II Resp failure Multifactorial shortness of breath: ac exac of COPD, severe anemia, obesity- hypoventilation, ch diastolic CHF Recurrent GI bleeds leading to anemia requiring transfusions - scope per Dr. Gaytan on 06/28/19: Colon Polyps Internal hemorrhoids; Gastritis ; Hiatal hernia. Endoscopy of Jul 11, 2019 at [facility] showed sigmoid and ascending colon ulcer, nonbleeding (per D/C summary by Dr. Stack). Intermittent worsening or anemia remains an issue SSS. H/o PAF, currently asymptomatic sinus mateo Chronic HFpEF Echo of 08/05/19 showed LVEF 65-70%, mild to mod conc LVH, grade 2 gastelum dy sfunction of LV, biatrial enlargement, mild to mod AI and TR, PASP 50 mmHg Hemoptysis during hospitalization of Jun 2019, small qty, managed by the [facility]. Bronchoscopy on 07/03/19 did not indicate any active bleed or inflammation. Bronch on 08-05-19 with copious mucous plugging. COPD with several episodes of acute exacerbations in the recent past OAC with Eliquis - recently intermittently held for GI bleeds HTN - by history Mild to moderate CAD on coronary angiography in 2010 Obesity with obesity-hypoventilation, TERE, and pulm hypertension. PASP was 60-65 mmHg on echo of 2015; 45-50 mmHg on echo of 01/04/19 Marijuana use (urine test positive in January 2019) Chronic narcotic use d/t chronic back and joint pain Discussion and Recomendations * Continue previous cardiac regimen * We recommend OAC for stroke prophylaxis * Monitor labs * Complex management due to multiple comorbidities * We have advised efforts at wgt loss and discussed strategy in the past Clinical Quality Measures DVT/VTE Risk/Contraindication: Risk Factor Score Per Nursin RFS Level Per Nursing on Admit: 2=Moderate PATSY SERVIN MD FACP FAC CCDS Aug 18, 2019 16:56 POS
[2019-08-18] MEDS: RT-ADVAIR HFA 115/21 MCG PER PUFF IH SCH (18:46)
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
[2019-08-18] MEDS ORDERED: APIXABAN 5 MG (ELIQUIS) TABLET PO SCH (21:00)
[2019-08-18] MEDS: SENNOSIDES 8.6 MG (SENOKOT) TAB PO SCH (21:33)
[2019-08-18] MEDS: DOCUSATE SODIUM 100 MG (COLACE) CAP PO SCH (21:34)
[2019-08-19] VITALS (12 sets, daily range): BP systolic 93–172; BP diastolic 36–72
[2019-08-19] MEDS ORDERED: ENOXAPARIN 100 MG/1 ML (LOVENOX) SYR ONE (00:16)
[2019-08-19] MEDS ORDERED: ENOXAPARIN 40 MG/0.4 ML (LOVENOX) SYR ONE (00:17)
[2019-08-19] MEDS: ENOXAPARIN 300 MG/3 ML (LOVENOX) MULTI-DOSE VIAL SQ SCH (00:40)
--- NOTE | 2019-08-19 00:42 | NUR ---
Pt ordered to have 140 mg lovenox sq BID. Medication not available in that form. 100 mg and 40 mg lovenox pulled to equal correct dosing, pt educated on reasons for two injections of medication, pt verbalized understanding and agreement.
[2019-08-19] MEDS: RT-ALBUTEROL/IPRATROPIUM 3 ML (DUONEB) VIAL INH SCH ×6 (02:35→22:20)
[2019-08-19 02:54] LABS: ABG BASE EXCESS 18.2 MMOL/L (-2.5-2.5); ABG OXYGEN SATURATION 98 % (94-100); ABG PCO2 60 MMHG (35-45); ABG PH 7.47 (7.37-7.43); ABG PO2 95 MMHG (79-93); ABG TCO2 45.4 MMOL/L (21.0-31.0)
[2019-08-19 02:56] LABS: ALLENS TEST YES-POS; INSPIRED O2 30%; VENTILATOR NO
[2019-08-19 02:57] LABS: PATIENT TEMP 36.2
--- NOTE | 2019-08-19 03:25 | Pulmonary Consultation ---
LACY LOZANO MED STUDENT 08/19/19 0325: History of Present Illness History of Present Illness Date Seen by Provider: Aug 19, 2019 Time Seen by Provider: 03:10 Date of Admission History of Present Illness The patient is a 63 year old male who was admitted to the ICU after being brought to [facility] [place] Emergency department via EMS. He was having increasing SOB after being discharged from the hospital yesterday. He answers all questions appropriately and fully cooperates with the physical exam. This morning he states that his SOB has mildly improved. The patient also reports having a cough that is productive of "mostly clear" sputum with occasional opaque yellow tint. He has no other complaints at this time. The patient denies chest pain, fever, or any other symptoms. Allergies and Home Medications Allergies Coded Allergies: cephalexin (Verified Adverse Reaction, Unknown, unknown- tolerated Rocephin with no issue 06/2019, 06/29/19) Home Medications Albuterol Sulfate 2.5 Mg/3 Ml Vial.neb, 2.5 MG NEB Q4H PRN for SHORTNESS OF BREATH, (Reported) Albuterol Sulfate 18 Gm Hfa.aer.ad, 2 PUFF INH Q4H PRN for SHORTNESS OF BREATH, (Reported) Amiodarone HCl 200 Mg Tablet, 200 MG PO DAILY, (Reported) Amlodipine Besylate 5 Mg Tablet, 5 MG PO DAILY, (Reported) Apixaban 5 Mg Tablet, 5 MG PO BID, (Reported) Aspirin 81 Mg Tablet.dr, 81 MG PO DAILY, (Reported) Atorvastatin Calcium 10 Mg Tablet, 10 MG PO DAILY, (Reported) Buspirone HCl 10 Mg Tablet, 10 MG PO BID, (Reported) Cholecalciferol (Vitamin D3) 1,000 Unit Capsule, 1,000 UNIT PO DAILY, (Reported) Cyanocobalamin/Cobamamide 1 Each Tab.subl, 5,000 MCG SL DAILY, (Reported) Escitalopram Oxalate 20 Mg Tablet, 20 MG PO DAILY, (Reported) Fluticasone/Vilanterol 1 Each Blst.w.dev, 1 PUFF INH 0600, (Reported) Furosemide 40 Mg Tablet, 60 MG PO BID, (Reported) Hydrocodone/Acetaminophen 1 Each Tablet, 1 TAB PO TID PRN for PAIN-MODERATE (5- 7) Prescribed by: IVAN FONG on 08/17/19 0948 Lisinopril 10 Mg Tablet, 10 MG PO DAILY, (Reported) Metoprolol Succinate 25 Mg Tab.er.24h, 12.5 MG PO DAILY, (Reported) TAKES 1/2 (25MG) TABLET Multivitamin/Iron/Folic Acid 1 Each Tablet, 1 TAB PO DAILY, (Reported) Pantoprazole Sodium 40 Mg Tablet.dr, 40 MG PO DAILY, (Reported) Potassium Chloride 10 Meq Tablet.er, 10 MEQ PO DAILY, (Reported) Pregabalin 150 Mg Capsule, 150 MG PO BID, (Reported) LAST FILLED 06-14-19 #60 Roflumilast 500 Mcg Tablet, 500 MCG PO DAILY, (Reported) Sennosides/Docusate Sodium 1 Each Tablet, 2 TAB PO DAILY, (Reported) Sildenafil Citrate 20 Mg Tablet, 20 MG PO TID, (Reported) Sodium Chloride 45 Ml [place], 1-2 SPRAYS NS UD PRN for DRY NOSE, (Reported) Vitamin A Palmitate 10,000 Unit Capsule, 10,000 UNIT PO DAILY, (Reported) Past Pjsiujb-Ybixyv-Zusluu Hx Past Med/Social Hx: Reviewed Nursing Past Med/Soc Hx Patient Social History Alcohol Use: Denies Use Number of Drinks Today: Alcohol Beverage of Choice: Wine Recreational Drug Use: No Drug of Choice: past history THC Smoking Status: Former Smoker Type Used: Cigarettes Former Smoker, Quit: Sep 18, 2015 2nd Hand Smoke Exposure: No Recent Foreign Travel: No Contact w/Someone Who Travel: No Recent Infectious Disease Expo: No Recent Hopitalizations: Yes Physical Abuse: No Sexual Abuse: No Mistreated: No Fear: No Immunizations Up To Date Tetanus Booster (TDap): Unknown Date of Pneumonia Vaccine: Sep 04, 2012 Date of Influenza Vaccine: Jul 05, 2019 Seasonal Allergies Seasonal Allergies: Yes Past Medical History Surgeries: Yes (FATTY TUMOR REMOVED FROM TOP OF HEAD. CARDIAC CATH X 2--NO INTERVENTION) Cardiac, Vasectomy Respiratory: Yes (acute on chronic respiratory failure with hypercapnia ) Pneumonia, Chronic Bronchitis, Sleep Apnea, COPD, Emphysema Currently Using CPAP: Yes Currently Using BIPAP: Yes Cardiac: Yes Atrial Fibrillation, Chronic Edema/Swelling, Coronary Artery Disease, High Cholesterol, Hypertension, Valvular Heart Disease Neurological: No Neuropathy Reproductive Disorders: No Sexually Transmitted Disease: No HIV/AIDS: No Genitourinary: Yes (RENAL INSUFFICIENCY) Renal Failure Gastrointestinal: Yes Colitis, Gastroesophageal Reflux Musculoskeletal: Yes ("BULGING DISCS" ; CHRONIC "JERKING" OF MUSCLES; CHRONIC NARCOTIC USE) Degenerate Disk Disease, Osteoporosis, Arthritis, Back Injury, Chronic Back Pain, Fractures, Spasms Endocrine: Yes (MORBID OBESITY) Diabetes, Non-Insulin dep HEENT: Yes (NEAR SIGHTED) Loss of Vision: Bilateral Hearing Impairment: Denies Cancer: No Psychosocial: Yes Anxiety, Depression Integumentary: No Blood Disorders: No Adverse Reaction/Blood Tranf: No Family Medical History Arthritis 19 MOTHER Cardiovascular disease 19 MOTHER FH: lung cancer 19 FATHER Hypertension 19 MOTHER No Family History of: AIDS Abdominal aortic aneurysm [place]fonzo's disease Alcoholism Alzheimer's disease Aphasia Asthma Cancer of mouth Cataracts Colon cancer Completed stroke Congenital disease Congenital heart disease Coronary thrombosis Cystic fibrosis Deafness or hearing loss Dementia Diabetes mellitus Drug abuse Dysphasia Fibrocystic disease of breast Gastroenteritis Glaucoma Headache disorder Hypercholesterolemia Infertility Kidney disease Myocardial infarction Neoplasm Not obtainable due to adoption Osteoporosis Parkinson's disease Prostate cancer Psychosocial problem Respiratory disorder Seizure disorder Severe allergy Thyroid disease Tuberculosis Visual disorder AAA, Heart Disease, Cancer, Hypertension Review of Systems Constitutional: No: Fever Respiratory: Cough, Shortness of breath, Sputum Cardiovascular: Edema; No: Chest Pain Sepsis Event Evaluation Height, Weight, BMI Height: 5'10.00" Weight: 348lbs. 6.0oz. 158.945181qx; 43.00 BMI Method:Stated Exam Exam Vital Signs Date Time Temp Pulse Resp B/P (MAP) Pulse Ox O2 Delivery O2 Flow Rate FiO2 08/19/19 03:00 36.2 08/19/19 01:00 61 08/19/19 01:00 61 101/38 (59) 94 NIV Bilevel 30.00 08/19/19 00:00 NIV Bilevel 30 08/19/19 00:00 64 98/36 (56) 91 NIV Bilevel 30.00 08/19/19 00:00 37.2 08/18/19 23:00 67 136/57 (83) NIV Bilevel 30.00 08/18/19 22:00 68 100/45 (63) NIV Bilevel 30.00 08/18/19 21:51 68 23 94 30.00 08/18/19 21:00 62 20 134/58 (83) 95 NIV Bilevel 30.00 08/18/19 20:00 65 23 101/55 (70) 91 NIV Bilevel 30.00 08/18/19 20:00 36.6 08/18/19 20:00 NIV Bilevel 30 08/18/19 19:00 66 21 125/60 (81) 91 NIV Bilevel 30.00 08/18/19 19:00 66 08/18/19 18:46 67 26 93 30.00 08/18/19 18:00 64 21 125/60 (81) NIV Bilevel 40.00 08/18/19 17:00 67 18 127/56 (79) NIV Bilevel 40.00 08/18/19 16:00 36.9 08/18/19 16:00 68 19 125/51 (75) NIV Bilevel 40.00 08/18/19 16:00 NIV Bilevel 40 08/18/19 15:00 67 22 123/51 (75) NIV Bilevel 40.00 08/18/19 14:39 71 23 92 30.00 08/18/19 14:15 67 135/62 (86) 96 NIV Bilevel 40.00 08/18/19 14:00 36.4 08/18/19 13:00 66 119/52 (74) 95 NIV Bilevel 40.00 08/18/19 12:18 60 08/18/19 12:00 65 23 92 30.00 08/18/19 12:00 64 125/52 (76) 97 NIV Bilevel 40.00 08/18/19 12:00 NIV Bilevel 40 08/18/19 12:00 36.1 08/18/19 11:32 NIV Bilevel 40 08/18/19 11:24 69 22 128/52 94 NIV Bilevel 08/18/19 09:08 70 22 92 30.00 08/18/19 08:45 36.4 70 24 173/68 (103) 91 NIV Bilevel I & O 08/19/19 07:00 Intake Total 510 ml Output Total 1500 ml Balance -990 ml Height & Weight Height: 5'10.00" Weight: 348lbs. 6.0oz. 158.684274uc; 43.00 BMI Method:Stated General Appearance: No Apparent Distress, Obese HEENT: Other (wearing BiPAP) Neck: Normal Inspection, Supple Respiratory: Lungs Clear, Normal Breath Sounds, No Respiratory Distress, Rales, Other (wearing BiPAP) Cardiovascular: Regular Rate, Rhythm, No Edema, No Murmur Capillary Refill: Greater Than 3 Seconds Gastrointestinal: non tender, soft Extremity: Normal Inspection, Non Tender, Pedal Edema Neurologic/Psychiatric: Alert, Oriented x3, Other (obtunded) Skin: Warm/Dry, Pallor Results Lab Laboratory Tests 08/18/19 08:54 Assessment/Plan Assessment/Plan Acute on chronic respiratory failure with hypoxia and hypercapnia -on BiPAP @ 30% O2 -titrate BiPAP O2 and PEEP down as ABG improves TERE -on BiPAP Chronic heart failure with preserved ejection fraction -monitor fluid intake Pulmonary hypertension Morbid obesity - COPD without acute exacerbation Chest xray stable continue home meds and inhalers when able nonadherent with BiPAP Paroxysmal atrial fibrillation Continue metoprolol and Eliquis when able Begin therapeutic Lovenox while unable to take Eliquis Hyperlipidemia -continue home meds GERD Continue home meds when able DVT prophylaxis: Already receiving therapeutic anticoagulation JHON STEPHENSON DO 08/19/19 0616: History of Present Illness History of Present Illness Time Seen by Provider: 06:11 Allergies and Home Medications Allergies Coded Allergies: cephalexin (Verified Adverse Reaction, Unknown, unknown- tolerated Rocephin with no issue 06/2019, 06/29/19) Home Medications Albuterol Sulfate 2.5 Mg/3 Ml Vial.neb, 2.5 MG NEB Q4H PRN for SHORTNESS OF BREATH, (Reported) Albuterol Sulfate 18 Gm Hfa.aer.ad, 2 PUFF INH Q4H PRN for SHORTNESS OF BREATH, (Reported) Amiodarone HCl 200 Mg Tablet, 200 MG PO DAILY, (Reported) Amlodipine Besylate 5 Mg Tablet, 5 MG PO DAILY, (Reported) Apixaban 5 Mg Tablet, 5 MG PO BID, (Reported) Aspirin 81 Mg Tablet.dr, 81 MG PO DAILY, (Reported) Atorvastatin Calcium 10 Mg Tablet, 10 MG PO DAILY, (Reported) Buspirone HCl 10 Mg Tablet, 10 MG PO BID, (Reported) Cholecalciferol (Vitamin D3) 1,000 Unit Capsule, 1,000 UNIT PO DAILY, (Reported) Cyanocobalamin/Cobamamide 1 Each Tab.subl, 5,000 MCG SL DAILY, (Reported) Escitalopram Oxalate 20 Mg Tablet, 20 MG PO DAILY, (Reported) Fluticasone/Vilanterol 1 Each Blst.w.dev, 1 PUFF INH 0600, (Reported) Furosemide 40 Mg Tablet, 60 MG PO BID, (Reported) Hydrocodone/Acetaminophen 1 Each Tablet, 1 TAB PO TID PRN for PAIN-MODERATE (5- 7) Prescribed by: IVAN FONG on 08/17/19 0948 Lisinopril 10 Mg Tablet, 10 MG PO DAILY, (Reported) Metoprolol Succinate 25 Mg Tab.er.24h, 12.5 MG PO DAILY, (Reported) TAKES 1/2 (25MG) TABLET Multivitamin/Iron/Folic Acid 1 Each Tablet, 1 TAB PO DAILY, (Reported) Pantoprazole Sodium 40 Mg Tablet.dr, 40 MG PO DAILY, (Reported) Potassium Chloride 10 Meq Tablet.er, 10 MEQ PO DAILY, (Reported) Pregabalin 150 Mg Capsule, 150 MG PO BID, (Reported) LAST FILLED 06-14-19 #60 Roflumilast 500 Mcg Tablet, 500 MCG PO DAILY, (Reported) Sennosides/Docusate Sodium 1 Each Tablet, 2 TAB PO DAILY, (Reported) Sildenafil Citrate 20 Mg Tablet, 20 MG PO TID, (Reported) Sodium Chloride 45 Ml [place], 1-2 SPRAYS NS UD PRN for DRY NOSE, (Reported) Vitamin A Palmitate 10,000 Unit Capsule, 10,000 UNIT PO DAILY, (Reported) Past Gewlnqa-Ucncpx-Brenit Hx Family Medical History Arthritis 19 MOTHER Cardiovascular disease 19 MOTHER FH: lung cancer 19 FATHER Hypertension 19 MOTHER No Family History of: AIDS Abdominal aortic aneurysm [place]'s disease Alcoholism Alzheimer's disease Aphasia Asthma Cancer of mouth Cataracts Colon cancer Completed stroke Congenital disease Congenital heart disease Coronary thrombosis Cystic fibrosis Deafness or hearing loss Dementia Diabetes mellitus Drug abuse Dysphasia Fibrocystic disease of breast Gastroenteritis Glaucoma Headache disorder Hypercholesterolemia Infertility Kidney disease Myocardial infarction Neoplasm Not obtainable due to adoption Osteoporosis Parkinson's disease Prostate cancer Psychosocial problem Respiratory disorder Seizure disorder Severe allergy Thyroid disease Tuberculosis Visual disorder Review of Systems Time Seen by Provider: 06:12 LACY LOZANO STUDENT Aug 19, 2019 03:25 JHON MATSON DO Aug 19, 2019 06:16 POS
[2019-08-19 03:39] LABS: BASOPHILS % (AUTO) 0 % (0-10); EOSINOPHILS % (AUTO) 0 % (0-10); HEMATOCRIT 28 % (40-54); HEMOGLOBIN 8.7 G/DL (13.3-17.7); LYMPHOCYTES # (AUTO) 0.5 X 10^3 (1.0-4.0); LYMPHOCYTES % (AUTO) 8 % (12-44); MEAN CORPUSCULAR HEMOGLOBIN 28 PG (25-34); MEAN CORPUSCULAR HGB CONC 31 G/DL (32-36); MEAN CORPUSCULAR VOLUME 92 FL (80-99); MEAN PLATELET VOLUME 10.2 FL (7.4-10.4); MONOCYTES # (AUTO) 0.4 X 10^3 (0.0-1.0); MONOCYTES % (AUTO) 6 % (0-12); NEUTROPHILS # (AUTO) 5.9 X 10^3 (1.8-7.8); NEUTROPHILS % (AUTO) 86 % (42-75); PLATELET COUNT 213 10^3/uL (130-400); RED CELL DISTRIBUTION WIDTH 15.7 % (10.0-14.5); WHITE BLOOD COUNT 6.9 10^3/uL (4.3-11.0)
[2019-08-19 03:56] LABS: BUN/CREATININE RATIO 29; CALCIUM 9.6 MG/DL (8.5-10.1); CARBON DIOXIDE 36 MMOL/L (21-32); CHLORIDE 92 MMOL/L (98-107); CREATININE SERUM 1.04 MG/DL (0.60-1.30); GFR ESTIMATED > 60; GLUCOSE 99 MG/DL (70-105); POTASSIUM 4.3 MMOL/L (3.6-5.0); SODIUM 142 MMOL/L (135-145)
[2019-08-19 03:57] LABS: PHOSPHORUS 3.3 MG/DL (2.3-4.7)
[2019-08-19] MEDS: MAGNESIUM 1 GM/100 ML IVPB 100 ML IV SCH (05:24)
[2019-08-19] MEDS: inSUlin ASPART (NovoLOG) 1 UNIT/0.01 ML (CHARGE PER UNIT) SC SCH ×4 (05:25→22:56)
[2019-08-19] MEDS ORDERED: MAGNESIUM 1 GM/100 ML IVPB 100 ML IV SCH (06:00)
[2019-08-19] MEDS ORDERED: POTASSIUM CL 10MEQ/50ML IVPB 50 ML IV SCH ×2 (06:00)
[2019-08-19] MEDS: RT-ADVAIR HFA 115/21 MCG PER PUFF IH SCH ×2 (07:14→19:26)
--- NOTE | 2019-08-19 07:32 | Diagnostic Imaging Report ---
EXAMINATION: Chest 1 view HISTORY: Respiratory distress. COPD. COMPARISON: 08/18/2019 FINDINGS: Cardiomegaly with central pulmonary vascular congestion and pulmonary edema is again noted, with decreased pulmonary edema and decreased prominence of the central pulmonary vasculature. There is continued moderate to large right pleural effusion with right basilar opacities. A small left pleural effusion is present. No large pneumothorax. No acute osseous abnormalities. IMPRESSION: 1. Improving pulmonary edema with decreased central pulmonary vascular congestion. 2. Stable moderate to large right and small left pleural effusions. Dictated by: Dictated on workstation # [id number]
--- NOTE | 2019-08-19 08:16 | Progress Note ---
Subjective Time Seen by a Provider: 08:14 Subjective/Events-last exam Patient doing better today. Patient alert. Patient having no problems breathing Objective Exam Vital Signs Date Time Temp Pulse Resp B/P (MAP) Pulse Ox O2 Delivery O2 Flow Rate FiO2 08/19/19 07:14 94 Nasal Cannula 5.00 08/19/19 06:00 58 127/45 (72) 99 NIV Bilevel 30.00 08/19/19 05:00 56 93/64 (74) 96 NIV Bilevel 30.00 08/19/19 04:00 65 140/50 (80) 96 NIV Bilevel 30.00 08/19/19 03:49 NIV Bilevel 30 08/19/19 03:00 36.2 08/19/19 03:00 64 133/54 (80) NIV Bilevel 30.00 08/19/19 02:35 67 23 95 30.00 08/19/19 02:00 80 172/72 (105) NIV Bilevel 30.00 08/19/19 01:00 61 08/19/19 01:00 61 101/38 (59) 94 NIV Bilevel 30.00 08/19/19 00:00 NIV Bilevel 30 08/19/19 00:00 64 98/36 (56) 91 NIV Bilevel 30.00 08/19/19 00:00 37.2 08/18/19 23:00 67 136/57 (83) NIV Bilevel 30.00 08/18/19 22:00 68 100/45 (63) NIV Bilevel 30.00 08/18/19 21:51 68 23 94 30.00 08/18/19 21:00 62 20 134/58 (83) 95 NIV Bilevel 30.00 08/18/19 20:00 65 23 101/55 (70) 91 NIV Bilevel 30.00 08/18/19 20:00 36.6 08/18/19 20:00 NIV Bilevel 30 08/18/19 19:00 66 21 125/60 (81) 91 NIV Bilevel 30.00 08/18/19 19:00 66 08/18/19 18:46 67 26 93 30.00 08/18/19 18:00 64 21 125/60 (81) NIV Bilevel 40.00 08/18/19 17:00 67 18 127/56 (79) NIV Bilevel 40.00 08/18/19 16:00 36.9 08/18/19 16:00 68 19 125/51 (75) NIV Bilevel 40.00 08/18/19 16:00 NIV Bilevel 40 08/18/19 15:00 67 22 123/51 (75) NIV Bilevel 40.00 08/18/19 14:39 71 23 92 30.00 08/18/19 14:15 67 135/62 (86) 96 NIV Bilevel 40.00 08/18/19 14:00 36.4 08/18/19 13:00 66 119/52 (74) 95 NIV Bilevel 40.00 08/18/19 12:18 60 08/18/19 12:00 65 23 92 30.00 08/18/19 12:00 64 125/52 (76) 97 NIV Bilevel 40.00 08/18/19 12:00 NIV Bilevel 40 08/18/19 12:00 36.1 08/18/19 11:32 NIV Bilevel 40 08/18/19 11:24 69 22 128/52 94 NIV Bilevel 08/18/19 09:08 70 22 92 30.00 08/18/19 08:45 36.4 70 24 173/68 (103) 91 NIV Bilevel I & O 08/19/19 07:00 Intake Total 710 ml Output Total 1625 ml Balance -915 ml Capillary Refill : Greater Than 3 Seconds General Appearance: No Apparent Distress, WD/WN HEENT: Normal ENT Inspection Neck: Full Range of Motion, Normal Inspection, Non Tender Respiratory: No Accessory Muscle Use, No Respiratory Distress, Decreased Breath Sounds Cardiovascular: Regular Rate, Rhythm, No Murmur Gastrointestinal: non tender, soft Results Lab Laboratory Tests 08/18/19 08:54 08/19/19 03:20 Laboratory Tests 08/18/19 08:53: Blood Gas Puncture Site LT RADIAL, Blood Gas Patient Temperature 35.7, Arterial Blood pH 7.30*L, Arterial Blood Partial Pressure CO2 92*H, Arterial Blood Partial Pressure O2 103H, Arterial Blood HCO3 45*H, Arterial Blood Total CO2 47.7H, Arterial Blood Oxygen Saturation 98, Arterial Blood Base Excess 17.3H, Neil Test YES-POS, Blood Gas Ventilator Setting NO, Blood Gas Inspired Oxygen 50% BIPAP 08/18/19 08:54: White Blood Count 8.2, Red Blood Count 3.31L, Hemoglobin 9.5L, Hematocrit 31L, Mean Corpuscular Volume 93, Mean Corpuscular Hemoglobin 29, Mean Corpuscular Hemoglobin Concent 31L, Red Cell Distribution Width 16.0H, Platelet Count 248, Mean Platelet Volume 9.6, Neutrophils (%) (Auto) 80H, Lymphocytes (%) (Auto) 13, Monocytes (%) (Auto) 5, Eosinophils (%) (Auto) 1, Basophils (%) (Auto) 0, Flor trophils # (Auto) 6.6, Lymphocytes # (Auto) 1.1, Monocytes # (Auto) 0.4, Eosinophils # (Auto) 0.1, Basophils # (Auto) 0.0, Prothrombin Time 12.7, INR Comment 0.9, Activated Partial Thromboplast Time 27, Sodium Level 140, Potassium Level 5.2H, Chloride Level 91L, Carbon Dioxide Level 34H, Anion Gap 15H, Blood Urea Nitrogen 23H, Creatinine 0.98, Estimat Glomerular Filtration Rate > 60, BUN/Creatinine Ratio 23, Glucose Level 115H, Calcium Level 9.5, Corrected Calcium 9.9, Magnesium Level 2.1, Total Bilirubin 0.3, Aspartate Amino Transf (AST/SGOT) 48H, Alanine Aminotransferase (ALT/SGPT) 47, Alkaline Phosphatase 126, Total Creatine Kinase 27L, Creatine Kinase MB 2.1, Troponin I 0.034H, B- Type Natriuretic Peptide 373.8H, Total Protein 7.9, Albumin 3.5 08/18/19 09:46: Blood Gas Puncture Site L RAD, Blood Gas Patient Temperature 36.5, Arterial Blood pH 7.37, Arterial Blood Partial Pressure CO2 78*H, Arterial Blood Partial Pressure O2 61L, Arterial Blood HCO3 44*H, Arterial Blood Total CO2 46.5H, Arterial Blood Oxygen Saturation 92L, Arterial Blood Base Excess 17.7H, Neil Test YES-POS, Blood Gas Ventilator Setting YES, Blood Gas Inspired Oxygen 40% 08/18/19 15:58: Glucometer 180H 08/18/19 20:45: Glucometer 133H 08/19/19 02:42: Blood Gas Puncture Site LEFT RADIAL, Blood Gas Patient Temperature 36.2, Arterial Blood pH 7.47H, Arterial Blood Partial Pressure CO2 60H, Arterial Blood Partial Pressure O2 95H, Arterial Blood HCO3 44*H, Arterial Blood Total CO2 45.4H, Arterial Blood Oxygen Saturation 98, Arterial Blood Base Excess 18.2H, Neil Test YES-POS, Blood Gas Ventilator Setting NO, Blood Gas Inspired Oxygen 30% 08/19/19 03:20: White Blood Count 6.9, Red Blood Count 3.08L, Hemoglobin 8.7L, Hematocrit 28L, Mean Corpuscular Volume 92, Mean Corpuscular Hemoglobin 28, Mean Corpuscular Hemoglobin Concent 31L, Red Cell Distribution Width 15.7H, Platelet Count 213, Mean Platelet Volume 10.2, Neutrophils (%) (Auto) 86H, Lymphocytes (%) (Auto) 8L , Monocytes (%) (Auto) 6, Eosinophils (%) (Auto) 0, Basophils (%) (Auto) 0, Neutrophils # (Auto) 5.9, Lymphocytes # (Auto) 0.5L, Monocytes # (Auto) 0.4, Eosinophils # (Auto) 0.0, Basophils # (Auto) 0.0, Sodium Level 142, Potassium Level 4.3, Chloride Level 92L, Carbon Dioxide Level 36H, Anion Gap 14, Blood Urea Nitrogen 30H, Creatinine 1.04, Estimat Glomerular Filtration Rate > 60, BUN/Creatinine Ratio 29, Glucose Level 99, Calcium Level 9.6, Phosphorus Level 3.3, Magnesium Level 2.0 Assessment/Plan Assessment/Plan Assess & Plan/Chief Complaint Acute and chronic respiratory failure. TERE. Chronic heart failure. Pulmonary hypertension. Morbid obesity. COPD. Diastolic CHF. Paroxysmal atrial fibrillation Clinical Quality Measures DVT/VTE Risk/Contraindication: Risk Factor Score Per Nursin RFS Level Per Nursing on Admit: 2=Moderate DANITA TEE DO Aug 19, 2019 08:16 POS
[2019-08-19] MEDS: ROFLUMILAST 500 MCG TAB (DALIRESP) PO SCH (08:28)
[2019-08-19] MEDS: BUMETANIDE 1 MG (BUMEX) TAB PO SCH (08:28)
[2019-08-19] MEDS: SENNOSIDES 8.6 MG (SENOKOT) TAB PO SCH ×3 (08:29→22:55)
[2019-08-19] MEDS: PANTOPRAZOLE 40 MG (PROTONIX) TAB PO SCH (08:29)
[2019-08-19] MEDS: AMIODARONE 200 MG (CORDARONE) TAB PO SCH (08:30)
[2019-08-19] MEDS: DOCUSATE SODIUM 100 MG (COLACE) CAP PO SCH ×2 (08:30→21:00)
[2019-08-19] MEDS: KCL 20 MEQ TAB (K-DUR) PO SCH (08:31)
[2019-08-19] MEDS: ASPIRIN E.C. 81 MG (ECOTRIN) TAB PO SCH (08:32)
[2019-08-19] MEDS: SILDENAFIL 20 MG (REVATIO) TAB NON-FORMULARY PO SCH ×3 (08:32→21:11)
--- NOTE | 2019-08-19 09:19 | Progress Note - Cardiology ---
Cardiology SOAP Progress Note Subjective: Still short of breath No cp or palp or syncope Chronic, waxing and waning leg swelling Poor stamina Gen weakness No N/V Objective: I&O/Vital Signs 08/18/19 08/18/19 08/18/19 08/19/19 21:51 22:00 23:00 00:00 Temp 37.2 Pulse 68 68 67 Resp 23 B/P (MAP) 100/45 (63) 136/57 (83) Pulse Ox 94 O2 Delivery NIV Bilevel NIV Bilevel O2 Flow Rate 30.00 30.00 30.00 08/19/19 08/19/19 08/19/19 08/19/19 00:00 00:00 01:00 01:00 Pulse 64 61 61 B/P (MAP) 98/36 (56) 101/38 (59) Pulse Ox 91 94 O2 Delivery NIV Bilevel NIV Bilevel NIV Bilevel O2 Flow Rate 30.00 30.00 FiO2 30 08/19/19 08/19/19 08/19/19 08/19/19 02:00 02:35 03:00 03:00 Temp 36.2 Pulse 80 67 64 Resp 23 B/P (MAP) 172/72 (105) 133/54 (80) Pulse Ox 95 O2 Delivery NIV Bilevel NIV Bilevel O2 Flow Rate 30.00 30.00 30.00 08/19/19 08/19/19 08/19/19 08/19/19 03:49 04:00 05:00 06:00 Pulse 65 56 58 B/P (MAP) 140/50 (80) 93/64 (74) 127/45 (72) Pulse Ox 96 96 99 O2 Delivery NIV Bilevel NIV Bilevel NIV Bilevel NIV Bilevel O2 Flow Rate 30.00 30.00 30.00 FiO2 30 08/19/19 08/19/19 07:14 07:14 Pulse Ox 94 O2 Delivery Nasal Cannula Nasal Cannula O2 Flow Rate 5.00 5.00 08/19/19 00:00 Intake Total 60 ml Output Total 1300 ml Balance -1240 ml Weight (Pounds): 348 Weight (Ounces): 6.0 Weight (Calculated Kilograms): 158.325373 Constitutional: other (on BiPAP, does appear alert and O x 3) Respiratory: other (on BiPAP, fair to good air entry, diminished at the bases, prolonged exp) Cardiovascular: regular rate-rhythm, S1 and S2, systolic murmur (soft [place] at card base) Gastrointestional: No tender; distended; No guarding, No rebound; audible bowel sounds Extremities: swelling (chronic pitting and non-pitting edema of the legs); No clubbing, No ecchymosis Neurologic/Psychiatric: oriented x 3, other (moves all limbs equally) Skin: No rash on exposed areas, No ulcerations on exposed areas Results/Procedures: Labs Laboratory Tests 08/18/19 09:46: Blood Gas Puncture Site L RAD, Blood Gas Patient Temperature 36.5, Arterial Blood pH 7.37, Arterial Blood Partial Pressure CO2 78*H, Arterial Blood Partial Pressure O2 61L, Arterial Blood HCO3 44*H, Arterial Blood Total CO2 46.5H, Arterial Blood Oxygen Saturation 92L, Arterial Blood Base Excess 17.7H, Neil Test YES-POS, Blood Gas Ventilator Setting YES, Blood Gas Inspired Oxygen 40% 08/18/19 15:58: Glucometer 180H 08/18/19 20:45: Glucometer 133H 08/19/19 02:42: Blood Gas Puncture Site LEFT RADIAL, Blood Gas Patient Temperature 36.2, Arterial Blood pH 7.47H, Arterial Blood Partial Pressure CO2 60H, Arterial Blood Partial Pressure O2 95H, Arterial Blood HCO3 44*H, Arterial Blood Total CO2 45.4H, Arterial Blood Oxygen Saturation 98, Arterial Blood Base Excess 18.2H, Neil Test YES-POS, Blood Gas Ventilator Setting NO, Blood Gas Inspired Oxygen 30% 08/19/19 03:20: White Blood Count 6.9, Red Blood Count 3.08L, Hemoglobin 8.7L, Hematocrit 28L, Mean Corpuscular Volume 92, Mean Corpuscular Hemoglobin 28, Mean Corpuscular Hemoglobin Concent 31L, Red Cell Distribution Width 15.7H, Platelet Count 213, Mean Platelet Volume 10.2, Neutrophils (%) (Auto) 86H, Lymphocytes (%) (Auto) 8L , Monocytes (%) (Auto) 6, Eosinophils (%) (Auto) 0, Basophils (%) (Auto) 0, Neutrophils # (Auto) 5.9, Lymphocytes # (Auto) 0.5L, Monocytes # (Auto) 0.4, Eosinophils # (Auto) 0.0, Basophils # (Auto) 0.0, Sodium Level 142, Potassium Level 4.3, Chloride Level 92L, Carbon Dioxide Level 36H, Anion Gap 14, Blood Urea Nitrogen 30H, Creatinine 1.04, Estimat Glomerular Filtration Rate > 60, BUN/Creatinine Ratio 29, Glucose Level 99, Calcium Level 9.6, Phosphorus Level 3.3, Magnesium Level 2.0 Laboratory Tests 08/18/19 08:54 08/19/19 03:20 A/P: Assessment: Acute, Type II Resp failure Multifactorial shortness of breath: ac exac of COPD, severe anemia, obesity- hypoventilation, ch diastolic CHF Recurrent GI bleeds leading to anemia requiring transfusions - scope per Dr. Gaytan on 06/28/19: Colon Polyps Internal hemorrhoids; Gastritis ; Hiatal hernia. Endoscopy of Jul 11, 2019 at [facility] showed sigmoid and ascending colon ulcer, nonbleeding (per D/C summary by Dr. Stack). Intermittent worsening or anemia remains an issue SSS. H/o PAF, currently asymptomatic sinus mateo Chronic HFpEF Echo of 08/05/19 showed LVEF 65-70%, mild to mod conc LVH, grade 2 gastelum dysfunction of LV, biatrial enlargement, mild to mod AI and TR, PASP 50 mmHg Hemoptysis during hospitalization of Jun 2019, small qty, managed by the Med [facility]. Bronchoscopy on 07/03/19 did not indicate any active bleed or inflammatio n. Bronch on 08-05-19 with copious mucous plugging. COPD with several episodes of acute exacerbations in the recent past OAC with Eliquis - recently intermittently held for GI bleeds HTN - by history Mild to moderate CAD on coronary angiography in 2010 Obesity with obesity-hypoventilation, TERE, and pulm hypertension. PASP was 60-65 mmHg on echo of 2015; 45-50 mmHg on echo of 01/04/19 Marijuana use (urine test positive in January 2019) Chronic narcotic use d/t chronic back and joint pain Plan: * Currently on full-dose Lovenox. Replace with oral apixaban * Monitor labs * Complex management due to multiple comorbidities * We have again advised efforts at [facility] loss Clinical Quality Measures Type of Care: Type of Care: Pallative Care PATSY SERVNI MD FACP FAC CCDS Aug 19, 2019 09:19 POS
--- NOTE | 2019-08-19 09:26 | Physical Therapy Evaluation ---
PT Evaluation-General Medical Diagnosis Admission Date Aug 18, 2019 at 11:34 Medical Diagnosis: respiratory failure Onset Date: Aug 18, 2019 Therapy Diagnosis Therapy Diagnosis: debility/weakness Height/Weight Height (Feet): 5 Height (Inches): 10.00 Weight (Pounds): 348 Weight (Ounces): 6.0 Precautions Precautions/Isolations: Fall Prevention, Standard Precautions Weight Bear Status Right Lower Extremity: Right Weight Bearing/Tolerated Left Lower Extremity: Left Weight Bearing/Tolerated Referral Physician: Amy Reason for Referral: Evaluation/Treatment Medical History Pertinent Medical History: CAD, COPD, DM, HTN, Smoking Current History EMS from [place] secondary to respiratory distress Reviewed History: Yes Social History Home: Care Home Prior Prior Level of Function SCALE: Activities may be completed with or without assistive devices. 9-Jazsfqzyab-kjljgtq completes the activity by him/herself with no assistance from a helper. 5-Set-up or Clean-up Assistance-helper sets up or cleans up; patient completes activity. [place] assists only prior to or following the activity. 4-Supervision or Touching Assistance-helper provides verbal cues and/or touching/steadying and/or contact guard assistance as patient completes activity. Assistance may be provided throughout the activity or intermittently. 3-Partial/Moderate Assistance-helper does LESS THAN HALF the effort. [place] lifts, holds or supports trunk or limbs, but provides less than half the effort. 2-Substantial/Maximal Assistance-helper does MORE THAN HALF the effort. [place] lifts or holds trunk or limbs and provides more than half the effort. 4-Hpldelzjb-ddcixk does ALL the effort. Patient does none of the effort to complete the activity. Or, the assistance of 2 or more helpers is required for the patient to complete the activity. If activity was not attempted, code reason: 7-Patient Refused. 9-Not Applicable-not attempted and the patient did not perform the activity before the current illness, exacerbation or injury. 10-Not Attempted due to Environmental Limitations-(lack of equipment, weather restraints, etc.). 88-Not Attempted due to Medical Conditions or Safety Concerns. Bed Mobility: 4 Transfers (B,C,W/C): 4 Gait: 4 Stairs: 9 Indoor Mobility (Ambulation): Needed Some Help Stairs: Not Applicalbe Prior Devices Use: Walker PT Evaluation-Current Subjective Patient agrees to PT. Pain Numeric Pain Scale: 0-No Pain Location: No Pain Reported Objective Patient Orientation: Normal For Age Attachments: Oxygen, Ac Catheter ROM/Strength ROM Lower Extremities bilateral LE WFL Strength Lower Extremities 4-/5 grossly bilateral LE Integumentary/Posture Integumentary refer to nursing notes Bowel Incontinence: No Bladder Incontinence: Ac Cath Posture trunk flexed posture Neuromuscular (Tone, Coordination, Reflexes) grossly intact Sensory Vision: Wears Glasses Hearing: Functional Sensation Right Lower Extremit: Impaired Sensation Left Lower Extremity: Impaired Transfers Roll Left to Right (QC): 4 Sit to Lying (QC): 4 Lying to Sitting/Side of Bed(Q: 4 Sit to Stand (QC): 4 Chair/Mbh-wa-Mlpex Xfer(QC): 4 Car Transfer (QC): 10 Gait Does the Patient Walk?: Yes Mode of Locomotion: Both Anticipated Mode of Locomotion: Both Walk 10 feet (QC): 4 Walk 50 ft with 2 Turns(QC): 88 Walk 150 ft (QC): 88 Walking 10ft/uneven surface-QC: 88 Distance: 10' Gait Assistive Device: FWW Comments/Gait Description trunk flexed posture with shuffle pattern Wheelchair Training Does the Pt Use a Wheelchair?: Yes Wheel 50 ft with 2 turns (QC): 88 Wheel 150 ft (QC): 88 Type of Wheelchair: Manual Stairs 1 Step (curb) (QC): 88 4 Steps (QC): 88 12 Steps (QC): 9 Balance Sitting Static: Normal Sitting Dynamic: Normal Standing Static: Fair Standing Dynamic: Fair Picking up an Object (QC): 5 (in seated position) Assessment/Needs 63 y.o. male, will benefit from skilled PT to address functional strength and mobility to improve current LOF to safely return to NH at maximum LOF. Rehab Potential: Guarded PT Database Marketing Manager Goals Nursing Home Goals PT Nursing Home Goals Time Frame: Sep 07, 2019 Roll Left & Right (QC): 5 Sit to Lying (QC): 5 Lying-Sitting on Side/Bed(QC): 5 Sit to Stand (QC): 5 Chair/Pwy-rw-Onnmd Xfer(QC): 5 Toilet Transfer (QC): 5 Car Transfer (QC): 10 Does the Patient Walk: Yes Walk 10 feet (QC): 5 Walk 50ft with 2 Turns (QC): 5 Walk 150 ft (QC): 88 Walking 10ft on Uneven Surface: 5 1 Step (curb) (QC): 5 4 Steps (QC): 88 12 Steps (QC): 88 Picking up an Object (QC): 5 Does the Pt use WC or Scooter?: Yes Type: Manual Type: Manual PT Plan Problem List Problem List: Activity Tolerance, Functional Strength, Safety, Balance, Gait, Transfer, Bed Mobility Treatment/Plan Treatment Plan: Continue Plan of Care Treatment Plan: Bed Mobility, Education, Functional Activity Sneha, Functional Strength, Gait, Safety, Therapeutic Exercise, Transfers Treatment Duration: Sep 07, 2019 Frequency: 6 times per week Estimated Hrs Per Day: .25 hour per day Patient and/or Family Agrees t: Yes Time/GCodes Time In: 820 Time Out: 830 Total Billed Treatment Time: 10 Total Billed Treatment 1 visit EVLowC 10 min MOON DREW PT Aug 19, 2019 09:26 POS
[2019-08-19] MEDS ORDERED: HYDR-3812 PO (10:05)
--- NOTE | 2019-08-19 10:09 | NUR ---
PATIENT WAS RECENTLY DISCHARGED TO [facility] BUT THEN RE ADMITTED SOON AFTER. I UPDATED THE MED REC WITH THE ORDER SUMMARY REPORT FROM [facility]. I CALLED THE [facility] TO CLARIFY THE METOPROLOL ORDER WELL INQUIRE ABOUT BREO. BREO WAS ON THE DISCHARGE ORDERS FROM HIS RECENT VISIT HOWEVER [facility] DO NOT HAVE AN ACTIVE ORDER FOR IT THERE, I REMOVED IT FROM THE MED REC AT THIS TIME. THE METOPROLOL WAS ORDERED ER 25MG 1/2 TAB AT DISCHARGE HOWEVER THE PAPERWORK FROM THE [facility] STATES ER 25MG 1.5 TABS, I CALLED THEM AND THEY STATE IT IS IN THEIR SYSTEM 1 & 1/2 TAB BUT THE MED CARD FROM THE PHARMACY DOES STATE 1/2 TAB. THEY ARE GOING TO CHANGE IT IN THEIR SYSTEM TO 1/2 TAB. I LEFT IT ON THE MED REC IT WAS REPORTED UPON DISCHARGE.
--- NOTE | 2019-08-19 10:10 | NUR ---
REPORT TAKEN AT THIS TIME FROM TEODORA BROWN FROM THE ICU UNIT. THIS RN WILL ASSUME CARE OF THIS PATIENT WHEN HE ARRIVES TO THIS UNIT.
--- NOTE | 2019-08-19 10:10 | NUR ---
Pt on NC O2, 5L, oxygen sat is staying in the 90's. Pt tolerating well. Verbal orders received from and to transfer patient to 4th floor. This nurse called report to Shannon ARAIZA on 4th floor at 1010. Pt transferred to room 429 on 5L oxygen via wheel chair.
--- NOTE | 2019-08-19 15:08 | Occupational Therapy Eval ---
OT Evaluation-General/PLF Medical Diagnosis Admission Date Aug 18, 2019 at 11:34 Medical Diagnosis: respiratory failure Onset Date: Aug 18, 2019 Therapy Diagnosis Therapy Diagnosis: Weakness, Decreased ADL skills Height/Weight Height (Feet): 5 Height (Inches): 10.00 Weight (Pounds): 348 Weight (Ounces): 6.0 Precautions Precautions/Isolations: Fall Prevention, Standard Precautions Weight Bear Status Weight Bearing Restriction: Weight Bearing/Tolerated Referral Physician: Amy Referral Reason: Activity Tolerance, Self Care, Evaluation/Treatment, Strengthening/ROM Medical History Pertinent Medical History: Atrial Fib, CAD, COPD, DM, HTN, Smoking Additional Medical History DDD, Emphysema Current History Pt. on acute rehab. Transferred to ICU. Has been medically complicated since. New orders received this date. Reviewed History: Yes Social History Home: Single Level Current Living Status: Children ADL-Prior Level of Function SCALE: Activities may be completed with or without assistive devices. 6-Gvofzhxfoo-teghfpp completes the activity by him/herself with no assistance from a helper. 5-Set-up or Clean-up Assistance-helper sets up or cleans up; patient completes activity. [place] assists only prior to or following the activity. 4-Supervision or Touching Assistance-helper provides verbal cues and/or touching/steadying and/or contact guard assistance as patient completes activity. Assistance may be provided throughout the activity or intermittently. 3-Partial/Moderate Assistance-helper does LESS THAN HALF the effort. [place] lifts, holds or supports trunk or limbs, but provides less than half the effort. 2-Substantial/Maximal Assistance-helper does MORE THAN HALF the effort. [place] lifts or holds trunk or limbs and provides more than half the effort. 1-Mxmhlpepc-uxtwtv does ALL the effort. Patient does none of the effort to complete the activity. Or, the assistance of 2 or more helpers is required for the patient to complete the activity. If activity was not attempted, code reason: 7-Patient Refused. 9-Not Applicable-not attempted and the patient did not perform the activity before the current illness, exacerbation or injury. 10-Not Attempted due to Environmental Limitations-(lack of equipment, weather restraints, etc.). 88-Not Attempted due to Medical Conditions or Safety Concerns. ADL PLOF Comments Pt. lives with daughter. She assists him as needed with cooking, cleaning, laundry. She also assists him as needed to bathe/dress. Self Care: Needed Some Help Functional Cognition: Independent DME/Equipment Comments Pt. has all needed equipment at home. OT Current Status Subjective No pain reported. Pt. states that he is feeling much better. Appearance Pt. up in chair. Agrees to work with OT. Mental Status/Objective Patient Orientation: Person, Place, Time, Situation Current Upper Extremity ROM WFL. Pt. reports that he has a torn Rotator cuff from many month ago in left shoulder. However, was not a surgery candidate. Demonstrates full ROM. Educated on correct shoulder flexion pattern to perform. ADL-Treatment Eating (QC): 6 Oral Hygiene (QC): 7 Shower/Bathe Self (QC): 7 (Pt's daughter is in room. She is getting ready to give him shower. OT offers to assist him instead. Pt. declines and daughter states that she will do it.) Upper Body Dressing (QC): 7 Lower Body Dressing (QC): 7 On/Off Footwear (QC): 6 (Pt. demonstrates ability to doff/don slipper socks while seated.) Toileting Hygiene (QC): 7 Toilet Transfer (QC): 7 Other Treatments Pt. up in chair. Daughter is getting ready to assist pt. with shower. Declines for OT to assist. OT tapes IV and provides clean gown, socks, towels, and bed squares. Pt. able to stand with SBA. Reports that he is feeling better and doing much better. Demonstrates ability to doff/don slipper socks. OT educated him on correct UE AROM patterns and exercises to perform. Pt. return demo nstrates and verbalizes understanding. All needs met in room. Education OT Patient Education: Correct positioning, Exercise program, Modified ADL techniques, Progress toward Goal/Update tx plan, Purpose of tx/functional a ctivities, Reviewed precautions, Rehab process, Transfer techniques Teaching Recipient: Patient Teaching Methods: Demonstration, Discussion Response to Teaching: Verbalize Understanding, Return Demonstration OT Shelter Goals Shelter Goals Time Frame: Aug 20, 2019 Eating (QC): 6 Oral Hygiene (QC): 6 (Per report) Toileting Hygiene (QC): 4 (SBA) Shower/Bathe Self (QC): 9 (Daughter assists) Upper Body Dressing (QC): 5 Lower Body Dressing (QC): 9 On/Off Footwear (QC): 5 Additional Goals: 1-Demonstrate ADL Tasks, 2-Verbalize Understanding, 3- ImproveStrength/Sneha 1=Demonstrate adherence to instructed precautions during ADL tasks. 2=Patient will verbalize/demonstrate understanding of assistive devices/modifications for ADL. 3=Patient will improve strength/tolerance for activity to enable patient to perform ADL's. OT Education/Plan Problem List/Assessment Assessment: Decreased Activ Tolerance, Impaired I ADL's, Impaired Self-Care Skills Discharge Recommendations Plan/Recommendations: Continue POC Therapy Discharge Recommendati: Home & Family Treatment Plan/Plan of Care Treatment,Training & Education: Yes Patient would benefit from OT for education, treatment and training to promote independence in ADL's, mobility, safety and/or upper extremity function for ADL's. Plan of Care: ADL Retraining, Functional Mobility, UE Funct Exercise/Act Treatment Duration: Aug 20, 2019 Frequency: 1 time per week Estimated Hrs Per Day: .25 hour per day Agreement: Yes Rehab Potential: Fair Time/GCodes Start Time: 13:35 Stop Time: 13:56 Total Time Billed (hr/min): 21 Billed Treatment Time 1, SHELL HAWKINS OT Aug 19, 2019 15:08 POS
[2019-08-19] MEDS: MELATONIN 3 MG TABLET PO PRN (21:11)
[2019-08-19] MEDS: APIXABAN 5 MG (ELIQUIS) TABLET PO SCH (21:11)
[2019-08-20] VITALS (7 sets, daily range): BP systolic 122–145; BP diastolic 57–65
[2019-08-20] MEDS: RT-ALBUTEROL/IPRATROPIUM 3 ML (DUONEB) VIAL INH SCH ×6 (01:45→21:14)
[2019-08-20 05:25] LABS: BASOPHILS % (AUTO) 1 % (0-10); EOSINOPHILS # (AUTO) 0.1 10^3/uL (0.0-0.3); EOSINOPHILS % (AUTO) 2 % (0-10); HEMATOCRIT 28 % (40-54); HEMOGLOBIN 8.3 G/DL (13.3-17.7); LYMPHOCYTES # (AUTO) 1.1 X 10^3 (1.0-4.0); LYMPHOCYTES % (AUTO) 17 % (12-44); MEAN CORPUSCULAR HEMOGLOBIN 28 PG (25-34); MEAN CORPUSCULAR HGB CONC 30 G/DL (32-36); MEAN CORPUSCULAR VOLUME 94 FL (80-99); MEAN PLATELET VOLUME 9.8 FL (7.4-10.4); MONOCYTES # (AUTO) 0.5 X 10^3 (0.0-1.0); MONOCYTES % (AUTO) 7 % (0-12); NEUTROPHILS # (AUTO) 4.8 X 10^3 (1.8-7.8); NEUTROPHILS % (AUTO) 74 % (42-75); PLATELET COUNT 253 10^3/uL (130-400); RED CELL DISTRIBUTION WIDTH 16.5 % (10.0-14.5); WHITE BLOOD COUNT 6.5 10^3/uL (4.3-11.0)
[2019-08-20 05:29] LABS: BUN/CREATININE RATIO 24; CALCIUM 9.4 MG/DL (8.5-10.1); CARBON DIOXIDE 36 MMOL/L (21-32); CHLORIDE 94 MMOL/L (98-107); CREATININE SERUM 1.17 MG/DL (0.60-1.30); GFR ESTIMATED > 60; GLUCOSE 81 MG/DL (70-105); POTASSIUM 4.3 MMOL/L (3.6-5.0); SODIUM 142 MMOL/L (135-145)
[2019-08-20 05:31] LABS: MAGNESIUM 1.9 MG/DL (1.6-2.4); PHOSPHORUS 3.8 MG/DL (2.3-4.7)
[2019-08-20] MEDS: inSUlin ASPART (NovoLOG) 1 UNIT/0.01 ML (CHARGE PER UNIT) SC SCH ×4 (05:37→20:19)
[2019-08-20] MEDS: MAGNESIUM 1 GM/100 ML IVPB 100 ML IV SCH (06:39)
[2019-08-20] MEDS: KCL 20 MEQ TAB (K-DUR) PO SCH (06:41)
--- NOTE | 2019-08-20 08:04 | Diagnostic Imaging Report ---
INDICATION: Dyspnea. Compared 08/19 FINDINGS: Bilateral pleural effusions, greater right, have increased from the study of one day prior. Enlargement of the cardiac silhouette similar. Vascular distention similar. No pneumothorax. IMPRESSION: Increasing bilateral effusions. No other change. Dictated by: Dictated on workstation # [id number]
--- NOTE | 2019-08-20 08:15 | Progress Note ---
Subjective Time Seen by a Provider: 08:12 Subjective/Events-last exam Patient feeling 75 percent better. Patient comfortable. Patient breathing better. Patient on 5 L of nasal oxygen which is his normal Objective Exam Vital Signs Date Time Temp Pulse Resp B/P (MAP) Pulse Ox O2 Delivery O2 Flow Rate FiO2 08/20/19 03:55 36.2 57 20 122/57 (78) 96 NIV Bilevel 7.00 08/20/19 01:45 91 Nasal Cannula 5.00 08/20/19 00:10 35.8 81 18 145/62 (89) 94 NIV Bilevel 7.00 08/19/19 22:40 NIV CPAP 08/19/19 22:20 92 Nasal Cannula 5.00 08/19/19 21:00 92 Nasal Cannula 5.00 08/19/19 18:30 36.4 69 18 148/67 (94) 90 NIV CPAP 08/19/19 14:33 36.4 72 95 08/19/19 12:00 36.8 70 18 152/66 (94) 92 Nasal Cannula 5.00 08/19/19 11:52 95 Nasal Cannula 4.00 08/19/19 09:30 36.4 I & O 08/20/19 07:00 Intake Total 1140 ml Output Total 1900 ml Balance -760 ml Capillary Refill : Less Than 3 SecondsGreater Than 3 Seconds General Appearance: No Apparent Distress HEENT: Normal ENT Inspection Neck: Full Range of Motion, Normal Inspection Respiratory: Chest Non Tender, Lungs Clear, No Accessory Muscle Use, No Respiratory Distress, Decreased Breath Sounds Cardiovascular: Regular Rate, Rhythm, No Murmur Gastrointestinal: non tender, soft Results Lab Laboratory Tests 08/20/19 04:15 Laboratory Tests 08/19/19 11:35: Glucometer 103 08/19/19 16:32: Glucometer 112H 08/19/19 20:33: Glucometer 121H 08/20/19 04:03: Phosphorus Level 3.8, Magnesium Level 1.9 08/20/19 04:15: White Blood Count 6.5, Red Blood Count 2.96L, Hemoglobin 8.3L, Hematocrit 28L, Mean Corpuscular Volume 94, Mean Corpuscular Hemoglobin 28, Mean Corpuscular Hemoglobin Concent 30L, Red Cell Distribution Width 16.5H, Platelet Count 253, Mean Platelet Volume 9.8, Neutrophils (%) (Auto) 74, Lymphocytes (%) (Auto) 17, Monocytes (%) (Auto) 7, Eosinophils (%) (Auto) 2, Basophils (%) (Auto) 1, Neutrophils # (Auto) 4.8, Lymphocytes # (Auto) 1.1, Monocytes # (Auto) 0.5, Eosinophils # (Auto) 0.1, Basophils # (Auto) 0.0, Sodium Level 142, Potassium Level 4.3, Chloride Level 94L, Carbon Dioxide Level 36H, Anion Gap 12, Blood Urea Nitrogen 28H, Creatinine 1.17, Estimat Glomerular Filtration Rate > 60, BUN/Creatinine Ratio 24, Glucose Level 81, Calcium Level 9.4 08/20/19 05:35: Glucometer 82 08/20/19 06:37: Glucometer 107 Microbiology 08/18/19 MRSA Screen - Final, Complete MRSA not isolated Assessment/Plan Assessment/Plan Assess & Plan/Chief Complaint Acute and chronic respiratory failure. TERE. Chronic heart failure. Pulmonary hypertension. Morbid obesity. COPD. Diastolic CHF. Paroxysmal atrial fibrillation. . 08/20/19. Acute and chronic respiratory failure. TERE. Chronic heart failure. Pulmonary hypertension. COPD. Morbid obesity. Paroxysmal atrial fibrillation Clinical Quality Measures DVT/VTE Risk/Contraindication: Risk Factor Score Per Nursin RFS Level Per Nursing on Admit: 2=Moderate DANITA TEE DO Aug 20, 2019 08:14 POS
--- NOTE | 2019-08-20 08:43 | Occupational Ther Daily Note ---
OT Current Status-Daily Note Subjective No pain reported. Appearance Pt. up in chair. Alert and oriented. States that he slept with his bi-pap on last night, but did not sleep well. States that it was uncomfortable so he slept in his reclining chair part of the night. Overall, pt. states that he is feeling better. Mental Status/Objective Patient Orientation: Person, Place, Time, Situation ADL-Treatment Therapy Code Descriptions/Definitions Functional [place] Measure: 0=Not Assessed/NA 4=Minimal Assistance 1=Total Assistance 5=Supervision or Setup 2=Maximal Assistance 6=Modified [place] 3=Moderate Assistance 7=Complete IndependenceSCALE: Activities may be completed with or without assistive devices. 8-Bhvnkelsqa-xgokopw completes the activity by him/herself with no assistance from a helper. 5-Set-up or Clean-up Assistance-helper sets up or cleans up; patient completes activity. [place] assists only prior to or following the activity. 4-Supervision or Touching Assistance-helper provides verbal cues and/or touching/steadying and/or contact guard assistance as patient completes activity. Assistance may be provided throughout the activity or intermittently. 3-Partial/Moderate Assistance-helper does LESS THAN HALF the effort. [place] lifts, holds or supports trunk or limbs, but provides less than half the effort. 2-Substantial/Maximal Assistance-helper does MORE THAN HALF the effort. [place] lifts or holds trunk or limbs and provides more than half the effort. 4-Xziybsqpd-ctjvtd does ALL the effort. Patient does none of the effort to complete the activity. Or, the assistance of 2 or more helpers is required for the patient to complete the activity. If activity was not attempted, code reason: 7-Patient Refused. 9-Not Applicable-not attempted and the patient did not perform the activity before the current illness, exacerbation or injury. 10-Not Attempted due to Environmental Limitations-(lack of equipment, weather restraints, etc.). 88-Not Attempted due to Medical Conditions or Safety Concerns. Pt. reports that his shower went well yesterday with daughter. OT and pt. talked about things that are difficult for him. He reports that he is having difficulty toileting self and reaching legs in shower. OT issued and educated pt. on toilet tongs and LH sponge for easier reach in shower. Pt. verbalizes understanding. Gets phone call and session is ended. Education OT Patient Education: Correct positioning, Modified ADL techniques, Progress toward Goal/Update tx plan, Purpose of tx/functional activities, Reviewed precautions, Rehab process, Transfer techniques Teaching Recipient: Patient Teaching Methods: Demonstration, Discussion Response to Teaching: Verbalize Understanding, Return Demonstration OT Assisted Goals Assisted Goals Time Frame: Aug 20, 2019 Eating (QC): 6 Oral Hygiene (QC): 6 (Per report) Toileting Hygiene (QC): 4 (SBA) Shower/Bathe Self (QC): 9 (Daughter assists) Upper Body Dressing (QC): 5 Lower Body Dressing (QC): 9 On/Off Footwear (QC): 5 Additional Goals: 1-Demonstrate ADL Tasks, 2-Verbalize Understanding, 3- ImproveStrength/Sneha 1=Demonstrate adherence to instructed precautions during ADL tasks. 2=Patient will verbalize/demonstrate understanding of assistive devices/modifications for ADL. 3=Patient will improve strength/tolerance for activity to enable patient to perform ADL's. OT Education/Plan Problem List/Assessment Assessment: Decreased Activ Tolerance, Impaired I ADL's Discharge Recommendations Plan/Recommendations: Continue POC Treatment Plan/Plan of Care Treatment,Training & Education: Yes Plan of Care: OTHER (Pt. has system worked out with daughter support for ADLs. No further OT at this time.) Treatment Duration: Aug 20, 2019 Frequency: 1 time per week Estimated Hrs Per Day: .25 hour per day Agreement: Yes Rehab Potential: Fair Time/GCodes Start Time: 08:15 Stop Time: 08:30 Total Time Billed (hr/min): 15 Billed Treatment Time 1, ADL SHELL SHARMA OT Aug 20, 2019 08:43 POS
[2019-08-20] MEDS: SENNOSIDES 8.6 MG (SENOKOT) TAB PO SCH ×2 (08:48→21:45)
[2019-08-20] MEDS: ASPIRIN E.C. 81 MG (ECOTRIN) TAB PO SCH (08:48)
[2019-08-20] MEDS: ROFLUMILAST 500 MCG TAB (DALIRESP) PO SCH (08:48)
[2019-08-20] MEDS: PANTOPRAZOLE 40 MG (PROTONIX) TAB PO SCH (08:49)
[2019-08-20] MEDS: BUMETANIDE 1 MG (BUMEX) TAB PO SCH (08:49)
[2019-08-20] MEDS: APIXABAN 5 MG (ELIQUIS) TABLET PO SCH ×2 (08:49→20:19)
[2019-08-20] MEDS: AMIODARONE 200 MG (CORDARONE) TAB PO SCH (08:49)
[2019-08-20] MEDS: SILDENAFIL 20 MG (REVATIO) TAB NON-FORMULARY PO SCH ×3 (08:53→20:18)
[2019-08-20] MEDS: DOCUSATE SODIUM 100 MG (COLACE) CAP PO SCH ×2 (09:00→21:45)
[2019-08-20] MEDS: RT-ADVAIR HFA 115/21 MCG PER PUFF IH SCH ×2 (09:47→21:00)
--- NOTE | 2019-08-20 10:26 | Physical Therapy Daily Note ---
PT Daily Note-Current Subjective Patient is very agreeable to participate with PT. Mental Status Patient Orientation: Normal For Age Attachments: Oxygen (5L NC) Transfers SCALE: Activities may be completed with or without assistive devices. 0-Oqgevyveyt-mjtvnun completes the activity by him/herself with no assistance from a helper. 5-Set-up or Clean-up Assistance-helper sets up or cleans up; patient completes activity. [place] assists only prior to or following the activity. 4-Supervision or Touching Assistance-helper provides verbal cues and/or touching/steadying and/or contact guard assistance as patient completes activity. Assistance may be provided throughout the activity or intermittently. 3-Partial/Moderate Assistance-helper does LESS THAN HALF the effort. [place] lifts, holds or supports trunk or limbs, but provides less than half the effort. 2-Substantial/Maximal Assistance-helper does MORE THAN HALF the effort. [place] lifts or holds trunk or limbs and provides more than half the effort. 4-Zsztvfpbp-dyhgsp does ALL the effort. Patient does none of the effort to complete the activity. Or, the assistance of 2 or more helpers is required for the patient to complete the activity. If activity was not attempted, code reason: 7-Patient Refused. 9-Not Applicable-not attempted and the patient did not perform the activity before the current illness, exacerbation or injury. 10-Not Attempted due to Environmental Limitations-(lack of equipment, weather restraints, etc.). 88-Not Attempted due to Medical Conditions or Safety Concerns. Sit to Stand (QC): 5 Weight Bearing Right Lower Extremity: Right Weight Bearing/Tolerated Left Lower Extremity: Left Weight Bearing/Tolerated Gait Training Does the Patient Walk?: Yes Distance: 175' Walk 10 feet (QC): 4 Walk 50 ft with 2 Turns(QC): 4 Walk 150 ft (QC): 4 Gait Assistive Device: FWW 2 standing recovery periods due to SOA/functional gait sequence Assessment Patient displayed increase SOA with activity. Patient returned to room and in recliner to recover. RT to enter room for breathing treatment. PT Half-Way Goals Half-Way Goals PT Compounding Scaler Goals Time Frame: Sep 07, 2019 Roll Left & Right (QC): 5 Sit to Lying (QC): 5 Lying-Sitting on Side/Bed(QC): 5 Sit to Stand (QC): 5 Chair/Lnv-em-Pjfif Xfer(QC): 5 Toilet Transfer (QC): 5 Car Transfer (QC): 10 Does the Patient Walk: Yes Walk 10 feet (QC): 5 Walk 50ft with 2 Turns (QC): 5 Walk 150 ft (QC): 88 Walking 10ft on Uneven Surface: 5 1 Step (curb) (QC): 5 4 Steps (QC): 88 12 Steps (QC): 88 Picking up an Object (QC): 5 Does the Pt use WC or Scooter?: Yes Type: Manual Type: Manual PT Plan Treatment/Plan Treatment Plan: Continue Plan of Care Treatment Plan: Bed Mobility, Education, Functional Activity Sneha, Functional Strength, Gait, Safety, Therapeutic Exercise, Transfers Treatment Duration: Sep 07, 2019 Frequency: 6 times per week Estimated Hrs Per Day: .25 hour per day Patient and/or Family Agrees t: Yes Time/GCodes Time In: 934 Time Out: 945 Total Billed Treatment Time: 11 Total Billed Treatment 1 visit FA 11 min MOON DREW PT Aug 20, 2019 10:26 POS
--- NOTE | 2019-08-20 11:46 | NUR ---
PALLIATIVE CARE RN in to see patient. Had nice discussion/education about hospice and it's benefits. Will give patient brochures and he will talk to his PCP. Patient is from [facility] since his discharge on last admission ....will return to them likely at discharge from the hospital.
--- NOTE | 2019-08-20 11:50 | Progress Note - Cardiology ---
Cardiology SOAP Progress Note Subjective: Sitting up in a chair at the bedside. States he is feeling good today. No c/o CP, palpitations. Feels breathing is much better. Objective: I&O/Vital Signs 08/20/19 08/20/19 08/20/19 08/20/19 00:10 01:45 03:55 09:00 Temp 35.8 36.2 Pulse 81 57 Resp 18 20 B/P (MAP) 145/62 (89) 122/57 (78) Pulse Ox 94 91 96 94 O2 Delivery NIV Bilevel Nasal Cannula NIV Bilevel Nasal Cannula O2 Flow Rate 7.00 5.00 7.00 5.00 08/20/19 08/20/19 09:48 11:02 Temp 36.2 Pulse 57 Pulse Ox 94 94 O2 Delivery Nasal Cannula O2 Flow Rate 5.00 08/20/19 00:00 Intake Total 790 ml Output Total 1500 ml Balance -710 ml Weight (Pounds): 348 Weight (Ounces): 6.0 Weight (Calculated Kilograms): 158.293602 Constitutional: other (on BiPAP, does appear alert and O x 3) Respiratory: other (good air entry) Cardiovascular: regular rate-rhythm, S1 and S2, systolic murmur (soft LAWRENCE at card base) Gastrointestional: No tender; distended; No guarding, No rebound; audible bowel sounds Extremities: swelling (chronic pitting and non-pitting edema of the legs); No clubbing, No ecchymosis Neurologic/Psychiatric: oriented x 3, other (moves all limbs equally) Skin: No rash on exposed areas, No ulcerations on exposed areas Results/Procedures: Labs Laboratory Tests 08/19/19 16:32: Glucometer 112H 08/19/19 20:33: Glucometer 121H 08/20/19 04:03: Phosphorus Level 3.8, Magnesium Level 1.9 08/20/19 04:15: White Blood Count 6.5, Red Blood Count 2.96L, Hemoglobin 8.3L, Hematocrit 28L, Mean Corpuscular Volume 94, Mean Corpuscular Hemoglobin 28, Mean Corpuscular Hemoglobin Concent 30L, Red Cell Distribution Width 16.5H, Platelet Count 253, Mean Platelet Volume 9.8, Neutrophils (%) (Auto) 74, Lymphocytes (%) (Auto) 17, Monocytes (%) (Auto) 7, Eosinophils (%) (Auto) 2, Basophils (%) (Auto) 1, Neutrophils # (Auto) 4.8, Lymphocytes # (Auto) 1.1, Monocytes # (Auto) 0.5, Eos inophils # (Auto) 0.1, Basophils # (Auto) 0.0, Sodium Level 142, Potassium Level 4.3, Chloride Level 94L, Carbon Dioxide Level 36H, Anion Gap 12, Blood Urea Nitrogen 28H, Creatinine 1.17, Estimat Glomerular Filtration Rate > 60, BUN/Crea tinine Ratio 24, Glucose Level 81, Calcium Level 9.4 08/20/19 05:35: Glucometer 82 08/20/19 06:37: Glucometer 107 08/20/19 11:10: Glucometer 113H Microbiology 08/18/19 MRSA Screen - Final, Complete MRSA not isolated Laboratory Tests 08/19/19 03:20 08/20/19 04:15 Procedures NAME: KEMAR JERONIMO [facility] REC#: [id number] PT STATUS: ADM IN : 1955 PHYSICIAN: IVAN FONG MD ADMIT DATE: 08/18/19 Draft Date of Exam:08/20/19 CHEST 1 VIEW, AP/PA ONLY INDICATION: Dyspnea. Compared 08/19 FINDINGS: Bilateral pleural effusions, greater right, have increased from the study of one day prior. Enlargement of the cardiac silhouette similar. Vascular distention similar. No pneumothorax. IMPRESSION: Increasing bilateral effusions. No other change. Dictated on workstation # [id number] Dict: 08/20/19 0800 Trans: 08/20/19 0803 JORGE LUIS [id number] Interpreted by: LEANA YU Electronically signed by: A/P: Assessment: Acute, Type II Resp failure Multifactorial shortness of breath: ac exac of COPD, severe anemia, obesity- hypoventilation, ch diastolic CHF Recurrent GI bleeds leading to anemia requiring transfusions - scope per Dr. Gaytan on 06/28/19: Colon Polyps Internal hemorrhoids; Gastritis ; Hiatal hernia. Endoscopy of Jul 11, 2019 at [facility] showed sigmoid and ascending colon ulcer, nonbleeding (per D/C summary by Dr. Stack). Intermittent worsening or anemia remains an issue SSS. H/o PAF, currently asymptomatic sinus mateo Chronic HFpEF Echo of 08/05/19 showed LVEF 65-70%, mild to mod conc LVH, grade 2 gastelum dysfunction of LV, biatrial enlargement, mild to mod AI and TR, PASP 50 mmHg Hemoptysis during hospitalization of Jun 2019, small qty, managed by the Med Svce. Bronchoscopy on 07/03/19 did not indicate any active bleed or inflammation. Bronch on 08-05-19 with copious mucous plugging. COPD with several episodes of acute exacerbations in the recent past OAC with Eliquis - recently intermittently held for GI bleeds HTN - by history Mild to moderate CAD on coronary angiography in 2010 Obesity with obesity-hypoventilation, TERE, and pulm hypertension. PASP was 60-65 mmHg on echo of 2015; 45-50 mmHg on echo of 01/04/19 Marijuana use (urine test positive in January 2019) Chronic narcotic use d/t chronic back and joint pain Plan: * Continue Eliquis * Monitor labs * Complex management due to multiple comorbidities * We have again advised efforts at t loss Clinical Quality Measures Type of Care: Type of Care: Pallative Care PIEDAD GOEL Aug 20, 2019 11:50 POS
--- NOTE | 2019-08-20 13:13 | NUR ---
PALLIATIVE CARE RN called back to room to talk with patient's daughter about Hospice. I had spoken with the patient earlier. So re-capped my discussion with patient and daughter. Daughter has chosen [facility] and I have set up an informational with them for tomorrow for 11:00 to 11:30. Clinical will be sent to [facility]. I will notify Dr. Cleveland.
--- NOTE | 2019-08-20 13:29 | Progress Note - Cardiology ---
Cardiology SOAP Progress Note Subjective: No cp or palp or syncope Shortness of breath somewhat better Gen weakness and malaise present Objective: I&O/Vital Signs 08/20/19 08/20/19 08/20/19 08/20/19 01:45 03:55 09:00 09:48 Temp 36.2 Pulse 57 Resp 20 B/P (MAP) 122/57 (78) Pulse Ox 91 96 94 94 O2 Delivery Nasal Cannula NIV Bilevel Nasal Cannula Nasal Cannula O2 Flow Rate 5.00 7.00 5.00 5.00 08/20/19 11:02 Temp 36.2 Pulse 57 Pulse Ox 94 08/19/19 23:59 Intake Total 790 ml Output Total 1500 ml Balance -710 ml Weight (Pounds): 348 Weight (Ounces): 6.0 Weight (Calculated Kilograms): 158.266404 Constitutional: other (on BiPAP, does appear alert and O x 3) Respiratory: other (good air entry) Cardiovascular: regular rate-rhythm, S1 and S2, systolic murmur (soft LAWRENCE at card base) Gastrointestional: No tender; distended; No guarding, No rebound; audible bowel sounds Extremities: swelling (chronic pitting and non-pitting edema of the legs); No clubbing, No ecchymosis Neurologic/Psychiatric: oriented x 3, other (moves all limbs equally) Skin: No rash on exposed areas, No ulcerations on exposed areas Results/Procedures: Labs Laboratory Tests 08/19/19 16:32: Glucometer 112H 08/19/19 20:33: Glucometer 121H 08/20/19 04:03: Phosphorus Level 3.8, Magnesium Level 1.9 08/20/19 04:15: White Blood Count 6.5, Red Blood Count 2.96L, Hemoglobin 8.3L, Hematocrit 28L, Mean Corpuscular Volume 94, Mean Corpuscular Hemoglobin 28, Mean Corpuscular Hemoglobin Concent 30L, Red Cell Distribution Width 16.5H, Platelet Count 253, Mean Platelet Volume 9.8, Neutrophils (%) (Auto) 74, Lymphocytes (%) (Auto) 17, Monocytes (%) (Auto) 7, Eosinophils (%) (Auto) 2, Basophils (%) (Auto) 1, Ne utrophils # (Auto) 4.8, Lymphocytes # (Auto) 1.1, Monocytes # (Auto) 0.5, Eosinophils # (Auto) 0.1, Basophils # (Auto) 0.0, Sodium Level 142, Potassium Level 4.3, Chloride Level 94L, Carbon Dioxide Level 36H, Anion Gap 12, Blood Urea Nitrogen 28H, Creatinine 1.17, Estimat Glomerular Filtration Rate > 60, BUN/Creatinine Ratio 24, Glucose Level 81, Calcium Level 9.4 08/20/19 05:35: Glucometer 82 08/20/19 06:37: Glucometer 107 08/20/19 11:10: Glucometer 113H Microbiology 08/18/19 MRSA Screen - Final, Complete MRSA not isolated Laboratory Tests 08/19/19 03:20 08/20/19 04:15 A/P: Assessment: Acute, Type II Resp failure Multifactorial shortness of breath: ac exac of COPD, severe anemia, obesity- hypoventilation, ch diastolic CHF Recurrent GI bleeds leading to anemia requiring transfusions - scope per Dr. Gaytan on 06/28/19: Colon Polyps Internal hemorrhoids; Gastritis ; Hiatal hernia . Endoscopy of Jul 11, [address] [facility] showed sigmoid and ascending colon ulcer, nonbleeding (per D/C summary by Dr. Stack). Intermittent worsening or anemia remains an issue SSS. H/o PAF, currently asymptomatic sinus mateo Chronic HFpEF Echo of 08/05/19 showed LVEF 65-70%, mild to mod conc LVH, grade 2 gastelum dysfunction of LV, biatrial enlargement, mild to mod AI and TR, PASP 50 mmHg Hemoptysis during hospitalization of Jun 2019, small qty, managed by the Med Svce. Bronchoscopy on 07/03/19 did not indicate any active bleed or inflammation. Bronch on 08-05-19 with copious mucous plugging. COPD with several episodes of acute exacerbations in the recent past OAC with Eliquis - recently intermittently held for GI bleeds HTN - by history Mild to moderate CAD on coronary angiography in 2010 Obesity with obesity-hypoventilation, TERE, and pulm hypertension. PASP was 60-65 mmHg on echo of 2015; 45-50 mmHg on echo of 01/04/19 Marijuana use (urine test positive in January 2019) Chronic narcotic use d/t chronic back and joint pain Plan: * I discussed his CV issues with him and answered questions * Continue Eliquis * Monitor labs * Complex management due to multiple comorbidities Clinical Quality Measures Type of Care: Type of Care: Pallative Care PATSY SERVIN MD FACP [facility] CCDS Aug 20, 2019 13:28 POS
--- NOTE | 2019-08-20 14:48 | NUR ---
PALLIATIVE CARE RN received call from Freddy Waterman [facility].. was informed that the patient's daughter has picked up all the belongings and intends to take patient home with [facility]. Confirmed that this was a discussion but was not 100%.
--- NOTE | 2019-08-20 15:37 | Pulmonary Progress Note ---
Sepsis Event Evaluation Height, Weight, BMI Height: 5'10.00" Weight: 348lbs. 6.0oz. 158.784804nq; 43.00 BMI Method:Stated Exam Exam Vital Signs Date Time Temp Pulse Resp B/P (MAP) Pulse Ox O2 Delivery O2 Flow Rate FiO2 08/20/19 13:43 91 Nasal Cannula 5.00 08/20/19 12:00 36.8 68 20 139/60 (86) 94 Nasal Cannula 5.00 08/20/19 11:02 36.2 57 94 08/20/19 09:48 94 Nasal Cannula 5.00 08/20/19 09:00 94 Nasal Cannula 5.00 08/20/19 08:30 36.5 80 18 133/64 (87) 93 Nasal Cannula 6.00 08/20/19 03:55 36.2 57 20 122/57 (78) 96 NIV Bilevel 7.00 08/20/19 01:45 91 Nasal Cannula 5.00 08/20/19 00:10 35.8 81 18 145/62 (89) 94 NIV Bilevel 7.00 08/19/19 22:40 NIV CPAP 08/19/19 22:20 92 Nasal Cannula 5.00 08/19/19 21:00 92 Nasal Cannula 5.00 08/19/19 18:30 36.4 69 18 148/67 (94) 90 NIV CPAP I & O 08/20/19 07:00 Intake Total 1140 ml Output Total 1900 ml Balance -760 ml Height & Weight Height: 5'10.00" Weight: 348lbs. 6.0oz. 158.640844xi; 43.00 BMI Method:Stated General Appearance: No Apparent Distress HEENT: Normal ENT Inspection Neck: Full Range of Motion, Normal Inspection Respiratory: Chest Non Tender, Lungs Clear, No Accessory Muscle Use, No Respiratory Distress, Decreased Breath Sounds Cardiovascular: Regular Rate, Rhythm, No Murmur Capillary Refill: Greater Than 3 Seconds Gastrointestinal: non tender, soft Extremity: Normal Inspection, Non Tender, Pedal Edema Neurologic/Psychiatric: Alert, Oriented x3, Other (obtunded) Skin: Warm/Dry, Pallor Results Lab Laboratory Tests 08/19/19 03:20 08/20/19 04:15 Assessment/Plan Assessment/Plan Acute on chronic respiratory failure with hypoxia and hypercapnia -Vent to MASK QHS COPD - -SVNS -Oxygen TERE with OHS -Vent to mask Diastolic CHF Morbid obesity - COPD without acute exacerbation Chest xray stable continue home meds and inhalers when able nonadherent with BiPAP Paroxysmal atrial fibrillation Hyperlipidemia GERD JHON STEPHENSON DO Aug 20, 2019 15:37 POS
[2019-08-20] MEDS: MELATONIN 3 MG TABLET PO PRN (20:18)
[2019-08-21] MEDS: RT-ALBUTEROL/IPRATROPIUM 3 ML (DUONEB) VIAL INH SCH ×3 (02:18→12:41)
[2019-08-21 06:23] LABS: BASOPHILS % (AUTO) 0 % (0-10); EOSINOPHILS # (AUTO) 0.1 10^3/uL (0.0-0.3); EOSINOPHILS % (AUTO) 2 % (0-10); HEMATOCRIT 29 % (40-54); HEMOGLOBIN 8.7 G/DL (13.3-17.7); LYMPHOCYTES # (AUTO) 1.1 X 10^3 (1.0-4.0); LYMPHOCYTES % (AUTO) 17 % (12-44); MEAN CORPUSCULAR HEMOGLOBIN 28 PG (25-34); MEAN CORPUSCULAR HGB CONC 30 G/DL (32-36); MEAN CORPUSCULAR VOLUME 94 FL (80-99); MEAN PLATELET VOLUME 9.9 FL (7.4-10.4); MONOCYTES # (AUTO) 0.5 X 10^3 (0.0-1.0); MONOCYTES % (AUTO) 9 % (0-12); NEUTROPHILS # (AUTO) 4.6 X 10^3 (1.8-7.8); NEUTROPHILS % (AUTO) 73 % (42-75); PLATELET COUNT 240 10^3/uL (130-400); RED CELL DISTRIBUTION WIDTH 16.4 % (10.0-14.5); WHITE BLOOD COUNT 6.3 10^3/uL (4.3-11.0)
[2019-08-21 06:49] LABS: BUN/CREATININE RATIO 23; CALCIUM 9.6 MG/DL (8.5-10.1); CARBON DIOXIDE 38 MMOL/L (21-32); CHLORIDE 94 MMOL/L (98-107); CREATININE SERUM 1.02 MG/DL (0.60-1.30); GFR ESTIMATED > 60; GLUCOSE 93 MG/DL (70-105); POTASSIUM 4.7 MMOL/L (3.6-5.0); SODIUM 144 MMOL/L (135-145)
[2019-08-21 06:51] LABS: MAGNESIUM 1.9 MG/DL (1.6-2.4); PHOSPHORUS 3.5 MG/DL (2.3-4.7)
--- NOTE | 2019-08-21 07:59 | Diagnostic Imaging Report ---
Indication: Dyspnea. Study compared: 08/20/2019 Findings: Bilateral patchy infiltrates in the lung bases greater right with bilateral effusions greater right as well as cardiomegaly all unchanged. No pneumothorax. Impression: Unchanged bibasilar pleural-parenchymal opacities, cardiomegaly and vascular distention. Dictated by: Dictated on workstation # [id number]
[2019-08-21 08:00] VITALS: BP 150/67
--- NOTE | 2019-08-21 08:28 | Progress Note ---
Subjective Time Seen by a Provider: 08:25 Subjective/Events-last exam Patient feeling better today. Patient wanting hospice. Objective Exam Vital Signs Date Time Temp Pulse Resp B/P (MAP) Pulse Ox O2 Delivery O2 Flow Rate FiO2 08/20/19 21:14 93 Nasal Cannula 5.00 08/20/19 20:46 37.0 69 22 138/65 (89) 95 Nasal Cannula 5.00 08/20/19 19:50 Nasal Cannula 5.00 08/20/19 16:40 36.9 63 22 128/60 (82) 96 Nasal Cannula 5.00 08/20/19 13:43 91 Nasal Cannula 5.00 08/20/19 12:00 36.8 68 20 139/60 (86) 94 Nasal Cannula 5.00 08/20/19 11:02 36.2 57 94 08/20/19 09:48 94 Nasal Cannula 5.00 08/20/19 09:00 94 Nasal Cannula 5.00 08/20/19 08:30 36.5 80 18 133/64 (87) 93 Nasal Cannula 6.00 I & O 08/21/19 07:00 Intake Total 2380 ml Output Total 750 ml Balance 1630 ml Capillary Refill : Less Than 3 SecondsGreater Than 3 Seconds General Appearance: No Apparent Distress, WD/WN HEENT: Normal ENT Inspection Neck: Full Range of Motion, Normal Inspection Respiratory: No Accessory Muscle Use, Decreased Breath Sounds Gastrointestinal: non tender, soft Results Lab Laboratory Tests 08/21/19 05:44 Laboratory Tests 08/20/19 11:10: Glucometer 113H 08/20/19 16:06: Glucometer 142H 08/20/19 20:05: Glucometer 162H 08/21/19 05:35: Glucometer 98 08/21/19 05:44: White Blood Count 6.3, Red Blood Count 3.08L, Hemoglobin 8.7L, Hematocrit 29L, Mean Corpuscular Volume 94, Mean Corpuscular Hemoglobin 28, Mean Corpuscular Hemoglobin Concent 30L, Red Cell Distribution Width 16.4H, Platelet Count 240, Mean Platelet Volume 9.9, Neutrophils (%) (Auto) 73, Lymphocytes (%) (Auto) 17, Monocytes (%) (Auto) 9, Eosinophils (%) (Auto) 2, Basophils (%) (Auto) 0, Neutrophils # (Auto) 4.6, Lymphocytes # (Auto) 1.1, Monocytes # (Auto) 0.5, E osinophils # (Auto) 0.1, Basophils # (Auto) 0.0, Sodium Level 144, Potassium Level 4.7, Chloride Level 94L, Carbon Dioxide Level 38H, Anion Gap 12, Blood Urea Nitrogen 23H, Creatinine 1.02, Estimat Glomerular Filtration Rate > 60, BUN/Creatinine Ratio 23, Glucose Level 93, Calcium Level 9.6, Phosphorus Level 3.5, Magnesium Level 1.9 Microbiology 08/18/19 MRSA Screen - Final, Complete MRSA not isolated Assessment/Plan Assessment/Plan Assess & Plan/Chief Complaint Acute and chronic respiratory failure. TERE. Chronic heart failure. Pulmonary hypertension. Morbid obesity. COPD. Diastolic CHF. Paroxysmal atrial fibrillation. . 08/20/19. Acute and chronic respiratory failure. TERE. Chronic heart failure. Pulmonary hypertension. COPD. Morbid obesity. Paroxysmal atrial fibrillation. . 08/21/19. Acute and chronic respiratory failure and obstructive sleep apnea. Heart failure. Pulmonary hypertension. Chronic obstructive pulmonary disease. Morbid obesity. History of atrial fibrillation at times Clinical Quality Measures DVT/VTE Risk/Contraindication: Risk Factor Score Per Nursin RFS Level Per Nursing on Admit: 2=Moderate DANITA TEE DO Aug 21, 2019 08:28
--- NOTE | 2019-08-21 09:04 | Pulmonary Progress Note ---
Subjective Time Seen by a Provider: 09:03 Subjective/Events-last exam No complications noted. Sepsis Event Evaluation Height, Weight, BMI Height: 5'10.00" Weight: 348lbs. 6.0oz. 158.019513mt; 43.00 BMI Method:Stated Exam Exam Vital Signs Date Time Temp Pulse Resp B/P (MAP) Pulse Ox O2 Delivery O2 Flow Rate FiO2 08/20/19 21:14 93 Nasal Cannula 5.00 08/20/19 20:46 37.0 69 22 138/65 (89) 95 Nasal Cannula 5.00 08/20/19 19:50 Nasal Cannula 5.00 08/20/19 16:40 36.9 63 22 128/60 (82) 96 Nasal Cannula 5.00 08/20/19 13:43 91 Nasal Cannula 5.00 08/20/19 12:00 36.8 68 20 139/60 (86) 94 Nasal Cannula 5.00 08/20/19 11:02 36.2 57 94 08/20/19 09:48 94 Nasal Cannula 5.00 I & O 08/21/19 07:00 Intake Total 2380 ml Output Total 750 ml Balance 1630 ml Height & Weight Height: 5'10.00" Weight: 348lbs. 6.0oz. 158.097140rk; 43.00 BMI Method:Stated General Appearance: No Apparent Distress, WD/WN HEENT: Normal ENT Inspection Neck: Full Range of Motion, Normal Inspection Respiratory: No Accessory Muscle Use, Decreased Breath Sounds Cardiovascular: Regular Rate, Rhythm, No Murmur Capillary Refill: Greater Than 3 Seconds Gastrointestinal: non tender, soft Extremity: Normal Inspection, Non Tender, Pedal Edema Neurologic/Psychiatric: Alert, Oriented x3, Other (obtunded) Skin: Warm/Dry, Pallor Results Lab Laboratory Tests 08/20/19 04:15 08/21/19 05:44 Assessment/Plan Assessment/Plan Acute on chronic respiratory failure with hypoxia and hypercapnia -Vent to MASK QHS -Plan is for home with hospice COPD - -SVNS -Oxygen TERE with OHS -Vent to mask Diastolic CHF Morbid obesity - COPD without acute exacerbation Chest xray stable continue home meds and inhalers when able nonadherent with BiPAP Paroxysmal atrial fibrillation Hyperlipidemia GERD JHON STEPHENSON DO Aug 21, 2019 09:04
[2019-08-21] MEDS: ROFLUMILAST 500 MCG TAB (DALIRESP) PO SCH (09:07)
[2019-08-21] MEDS: BUMETANIDE 1 MG (BUMEX) TAB PO SCH (09:07)
[2019-08-21] MEDS: ASPIRIN E.C. 81 MG (ECOTRIN) TAB PO SCH (09:07)
[2019-08-21] MEDS: AMIODARONE 200 MG (CORDARONE) TAB PO SCH (09:07)
[2019-08-21] MEDS: APIXABAN 5 MG (ELIQUIS) TABLET PO SCH (09:08)
[2019-08-21] MEDS: SILDENAFIL 20 MG (REVATIO) TAB NON-FORMULARY PO SCH ×2 (09:08→12:48)
[2019-08-21] MEDS: PANTOPRAZOLE 40 MG (PROTONIX) TAB PO SCH (09:08)
[2019-08-21] MEDS: MAGNESIUM 1 GM/100 ML IVPB 100 ML IV SCH (09:17)
[2019-08-21] MEDS: inSUlin ASPART (NovoLOG) 1 UNIT/0.01 ML (CHARGE PER UNIT) SC SCH ×2 (09:17→11:45)
[2019-08-21] MEDS: SENNOSIDES 8.6 MG (SENOKOT) TAB PO SCH (09:18)
[2019-08-21] MEDS: KCL 20 MEQ TAB (K-DUR) PO SCH (09:18)
[2019-08-21] MEDS: DOCUSATE SODIUM 100 MG (COLACE) CAP PO SCH (09:18)
--- NOTE | 2019-08-21 10:54 | Physical Therapy Progress Note ---
Therapy Progress Note 10:49am Pt sitting up in chair upon arrival. Pt declining PT treatment, states he is getting ready to go home on hospice. Discussed importance of continuing with walking and LE exercises as he can tolerate. Pt voicing agreement and understanding. DENNIS DOTY WINDOW FRAMER Aug 21, 2019 10:54
--- NOTE | 2019-08-21 10:59 | NUR ---
PALLIATIVE CARE RN in to see patient. He is up in his room ad shwetha and is ready to discharge today. He is anticipating discharge today after his hospice interviews. No current needs.
[2019-08-21 12:00] VITALS: BP 146/65
--- NOTE | 2019-08-21 12:22 | NUR ---
CALLED DR TEE TO NOTIFY HIM THAT IT IS OKAY WITH THE CONSULTED PHYSICIANS TO BE DISCHARGED TODAY. [facility] WILL HELP HIM AT HOME.
--- NOTE | 2019-08-21 13:07 | NUR ---
CALLED DR TEE. THE PATIENT IS OUT OF PAIN MEDICATION. HIS DAUGHTER WILL STOP BY THE OFFICE TO [employer] THE WRITTEN SCRIPT.
--- NOTE | 2019-08-21 13:08 | NUR ---
PATIENT IS UNABLE TO DRINK THE QUESTRAN WITHOUT GAGGING. SHE DOES NOT WANT TO TRY TO TAKE IT AGAIN.
--- NOTE | 2019-08-21 13:20 | NUR ---
PALLIATIVE CARE RN/DISCHARGE PLANNING: Patient is discharged to home with [facility] today.
[2019-08-21 13:25] VITALS: BP 146/65
--- NOTE | 2019-08-21 18:26 | Progress Note - Cardiology ---
Cardiology SOAP Progress Note Subjective: Shortness of breath improved No cp or palp or syncope Swelling improved Gen weakness present Objective: I&O/Vital Signs 08/21/19 08/21/19 08/21/19 08/21/19 08:00 09:00 11:16 12:00 Temp 36.2 36.5 Pulse 76 62 Resp 24 22 B/P (MAP) 150/67 (94) 146/65 (92) Pulse Ox 95 94 94 94 O2 Delivery Nasal Cannula Nasal Cannula Nasal Cannula Nasal Cannula O2 Flow Rate 5.00 5.00 5.00 5.00 08/21/19 13:25 Temp 36.5 Pulse 62 Resp 22 B/P (MAP) 146/65 Pulse Ox 94 O2 Delivery Nasal Cannula O2 Flow Rate 5.00 08/21/19 00:00 Intake Total 2380 ml Output Total 750 ml Balance 1630 ml Weight (Pounds): 348 Weight (Ounces): 6.0 Weight (Calculated Kilograms): 158.892873 Constitutional: other (on BiPAP, does appear alert and O x 3) Respiratory: other (good air entry) Cardiovascular: regular rate-rhythm, S1 and S2, systolic murmur (soft LAWRENCE at card base) Gastrointestional: No tender; distended; No guarding, No rebound; audible bowel sounds Extremities: swelling (chronic pitting and non-pitting edema of the legs); No clubbing, No ecchymosis Neurologic/Psychiatric: oriented x 3, other (moves all limbs equally) Skin: No rash on exposed areas, No ulcerations on exposed areas Results/Procedures: Labs Laboratory Tests 08/20/19 20:05: Glucometer 162H 08/21/19 05:35: Glucometer 98 08/21/19 05:44: White Blood Count 6.3, Red Blood Count 3.08L, Hemoglobin 8.7L, Hematocrit 29L, Mean Corpuscular Volume 94, Mean Corpuscular Hemoglobin 28, Mean Corpuscular Hemoglobin Concent 30L, Red Cell Distribution Width 16.4H, Platelet Count 240, Mean Platelet Volume 9.9, Neutrophils (%) (Auto) 73, Lymphocytes (%) (Auto) 17, Monocytes (%) (Auto) 9, Eosinophils (%) (Auto) 2, Basophils (%) (Auto) 0, Neutrophils # (Auto) 4.6, Lymphocytes # (Auto) 1.1, Monocytes # (Auto) 0.5, Eosinophils # (Auto) 0.1, Basophils # (Auto) 0.0, Sodium Level 144, Potassium Level 4.7, Chloride Level 94L, Carbon Dioxide Level 38H, Anion Gap 12, Blood Urea Nitrogen 23H, Creatinine 1.02, Estimat Glomerular Filtration Rate > 60, BUN/Creatinine Ratio 23, Glucose Level 93, Calcium Level 9.6, Phosphorus Level 3.5, Magnesium Level 1.9 08/21/19 11:17: Glucometer 104 Microbiology 08/18/19 MRSA Screen - Final, Complete MRSA not isolated A/P: Assessment: Acute, Type II Resp failure Multifactorial shortness of breath: ac exac of COPD, severe anemia, obesity- hypoventilation, ch diastolic CHF Recurrent GI bleeds leading to anemia requiring transfusions - scope per Dr. Gaytan on 06/28/19: Colon Polyps Internal hemorrhoids; Gastritis ; Hiatal hernia. Endoscopy of Jul 11, 2019 at [facility] showed sigmoid and ascending colon ulcer, nonbleeding (per D/C summary by Dr. Stack). Intermittent worsening or anemia remains an issue SSS. H/o PAF, currently asymptomatic sinus mateo Chronic HFpEF Echo of 08/05/19 showed LVEF 65-70%, mild to mod conc LVH, grade 2 gastelum dysfunction of LV, biatrial enlargement, mild to mod AI and TR, PASP 50 mmHg Hemoptysis during hospitalization of Jun 2019, small qty, managed by the Med Svce. Bronchoscopy on 07/03/19 did not indicate any active bleed or inflammation. Bronch on 08-05-19 with copious mucous plugging. COPD with several episodes of acute exacerbations in the recent past OAC with Eliquis - recently intermittently held for GI bleeds HTN - by history Mild to moderate CAD on coronary angiography in 2010 Obesity with obesity-hypoventilation, TERE, and pulm hypertension. PASP was 60-65 mmHg on echo of 2015; 45-50 mmHg on echo of 01/04/19 Marijuana use (urine test positive in January 2019) Chronic narcotic use d/t chronic back and joint pain Plan: * Continue Eliquis * Monitor labs * Complex management due to multiple comorbidities * Outpt f/u advised Clinical Quality Measures Type of Care: Type of Care: Pallative Care PATSY SERVIN MD FACP FACC CCDS Aug 21, 2019 18:26
--- NOTE | 2019-08-22 07:27 | Discharge Summary ---
Diagnosis/Chief Complaint Date of Admission Aug 18, 2019 at 11:34 Date of Discharge Aug 21, 2019 at 13:25 Discharge Time: 07:24 Discharge Diagnosis Acute on chronic respiratory failure. COPD. TERE. Diastolic congestive heart failure. Morbid obesity. Paroxymal atrial fibrillation. Hypertension. Anemia. Discharge Summary Consultations Pulmonology. Cardiology. Discharge Physical Examination Allergies: Coded Allergies: cephalexin (Verified Adverse Reaction, Unknown, unknown- tolerated Rocephin with no issue 06/2019, 06/29/19) Vitals & I&Os Vital Signs Date Time Temp Pulse Resp B/P (MAP) Pulse Ox O2 Delivery O2 Flow Rate FiO2 08/21/19 13:25 36.5 62 22 146/65 94 Nasal Cannula 5.00 08/19/19 03:49 30 Hospital Course Patient in hospital improved. Patient wanted to go on hospice. At [id number] conversation with patient Labs (last 24 hrs) Laboratory Tests 08/18/19 08:53: Blood Gas Puncture Site LT RADIAL, Blood Gas Patient Temperature 35.7, Arterial Blood pH 7.30*L, Arterial Blood Partial Pressure CO2 92*H, Arterial Blood Partial Pressure O2 103H, Arterial Blood HCO3 45*H, Arterial Blood Total CO2 47.7H, Arterial Blood Oxygen Saturation 98, Arterial Blood Base Excess 17.3H, Neil Test YES-POS, Blood Gas Ventilator Setting NO, Blood Gas Inspired Oxygen 50% BIPAP 08/18/19 08:54: White Blood Count 8.2, Red Blood Count 3.31L, Hemoglobin 9.5L, Hematocrit 31L, Mean Corpuscular Volume 93, Mean Corpuscular Hemoglobin 29, Mean Corpuscular Hemoglobin Concent 31L, Red Cell Distribution Width 16.0H, Platelet Count 248, Mean Platelet Volume 9.6, Neutrophils (%) (Auto) 80H, Lymphocytes (%) (Auto) 13, Monocytes (%) (Auto) 5, Eosinophils (%) (Auto) 1, Basophils (%) (Auto) 0, Neutrophils # (Auto) 6.6, Lymphocytes # (Auto) 1.1, Monocytes # (Auto) 0.4, Eosinophils # (Auto) 0.1, Basophils # (Auto) 0.0, Prothrombin Time 12.7, INR Comment 0.9, Activated Partial Thromboplast Time 27, Sodium Level 140, Potassium Level 5.2H, Chloride Level 91L, Carbon Dioxide Level 34H, Anion Gap 15H, Blood Urea Nitrogen 23H, Creatinine 0.98, Estimat Glomerular Filtration Rate > 60, BUN/Creatinine Ratio 23, Glucose Level 115H, Calcium Level 9.5, Corrected Calcium 9.9, Magnesium Level 2.1, Total Bilirubin 0.3, Aspartate Amino Transf (AST/SGOT) 48H, Alanine Aminotransferase (ALT/SGPT) 47, Alkaline Phosphatase 126, Total Creatine Kinase 27L, Creatine Kinase MB 2.1, Troponin I 0.034H, B- Type Natriuretic Peptide 373.8H, Total Protein 7.9, Albumin 3.5 08/18/19 09:46: Blood Gas Puncture Site L RAD, Blood Gas Patient Temperature 36.5, Arterial Blood pH 7.37, Arterial Blood Partial Pressure CO2 78*H, Arterial Blood Partial Pressure O2 61L, Arterial Blood HCO3 44*H, Arterial Blood Total CO2 46.5H, Arterial Blood Oxygen Saturation 92L, Arterial Blood Base Excess 17.7H, Neil Test YES-POS, Blood Gas Ventilator Setting YES, Blood Gas Inspired Oxygen 40% 08/18/19 15:58: Glucometer 180H 08/18/19 20:45: Glucometer 133H 08/19/19 02:42: Blood Gas Puncture Site LEFT RADIAL, Blood Gas Patient Temperature 36.2, Arterial Blood pH 7.47H, Arterial Blood Partial Pressure CO2 60H, Arterial Blood Partial Pressure O2 95H, Arterial Blood HCO3 44*H, Arterial Blood Total CO2 45.4H, Arterial Blood Oxygen Saturation 98, Arterial Blood Base Excess 18.2H, Neil Test YES-POS, Blood Gas Ventilator Setting NO, Blood Gas Inspired Oxygen 30% 08/19/19 03:20: White Blood Count 6.9, Red Blood Count 3.08L, Hemoglobin 8.7L, Hematocrit 28L, Mean Corpuscular Volume 92, Mean Corpuscular Hemoglobin 28, Mean Corpuscular Hemoglobin Concent 31L, Red Cell Distribution Width 15.7H, Platelet Count 213, Mean Platelet Volume 10.2, Neutrophils (%) (Auto) 86H, Lymphocytes (%) (Auto) 8L , Monocytes (%) (Auto) 6, Eosinophils (%) (Auto) 0, Basophils (%) (Auto) 0, Neutrophils # (Auto) 5.9, Lymphocytes # (Auto) 0.5L, Monocytes # (Auto) 0.4, Eosinophils # (Auto) 0.0, Basophils # (Auto) 0.0, Sodium Level 142, Potassium Level 4.3, Chloride Level 92L, Carbon Dioxide Level 36H, Anion Gap 14, Blood Urea Nitrogen 30H, Creatinine 1.04, Estimat Glomerular Filtration Rate > 60, BUN/Creatinine Ratio 29, Glucose Level 99, Calcium Level 9.6, Phosphorus Level 3.3, Magnesium Level 2.0 08/19/19 11:35: Glucometer 103 08/19/19 16:32: Glucometer 112H 08/19/19 20:33: Glucometer 121H 08/20/19 04:03: Phosphorus Level 3.8, Magnesium Level 1.9 08/20/19 04:15: White Blood Count 6.5, Red Blood Count 2.96L, Hemoglobin 8.3L, Hematocrit 28L, [place] Corpuscular Volume 94, Mean Corpuscular Hemoglobin 28, Mean Corpuscular Hemoglobin Concent 30L, Red Cell Distribution Width 16.5H, Platelet Count 253, Mean Platelet Volume 9.8, Neutrophils (%) (Auto) 74, Lymphocytes (%) (Auto) 17, Monocytes (%) (Auto) 7, Eosinophils (%) (Auto) 2, Basophils (%) (Auto) 1, Neutrophils # (Auto) 4.8, Lymphocytes # (Auto) 1.1, Monocytes # (Auto) 0.5, Eosinophils # (Auto) 0.1, Basophils # (Auto) 0.0, Sodium Level 142, Potassium Level 4.3, Chloride Level 94L, Carbon Dioxide Level 36H, Anion Gap 12, Blood Urea Nitrogen 28H, Creatinine 1.17, Estimat Glomerular Filtration Rate > 60, BUN/Creatinine Ratio 24, Glucose Level 81, Calcium Level 9.4 08/20/19 05:35: Glucometer 82 08/20/19 06:37: Glucometer 107 08/20/19 11:10: Glucometer 113H 08/20/19 16:06: Glucometer 142H 08/20/19 20:05: Glucometer 162H 08/21/19 05:35: Glucometer 98 08/21/19 05:44: White Blood Count 6.3, Red Blood Count 3.08L, Hemoglobin 8.7L, Hematocrit 29L, Mean Corpuscular Volume 94, Mean Corpuscular Hemoglobin 28, Mean Corpuscular Hemoglobin Concent 30L, Red Cell Distribution Width 16.4H, Platelet Count 240, Mean Platelet Volume 9.9, Neutrophils (%) (Auto) 73, Lymphocytes (%) (Auto) 17, Monocytes (%) (Auto) 9, Eosinophils (%) (Auto) 2, Basophils (%) (Auto) 0, Neutrophils # (Auto) 4.6, Lymphocytes # (Auto) 1.1, Monocytes # (Auto) 0.5, Eosinophils # (Auto) 0.1, Basophils # (Auto) 0.0, Sodium Level 144, Potassium Level 4.7, Chloride Level 94L, Carbon Dioxide Level 38H, Anion Gap 12, Blood Urea Nitrogen 23H, Creatinine 1.02, Estimat Glomerular Filtration Rate > 60, BUN/Creatinine Ratio 23, Glucose Level 93, Calcium Level 9.6, Phosphorus Level 3.5, Magnesium Level 1.9 08/21/19 11:17: Glucometer 104 Microbiology 08/18/19 MRSA Screen - Final, Complete MRSA not isolated Laboratory Tests 08/18/19 08:54 08/19/19 03:20 08/20/19 04:15 08/21/19 05:44 Pending Labs Microbiology Date/Time Source Procedure Growth Status 08/18/19 12:15 Nasal MRSA Screen - Final MRSA not isolated Complete Laboratory Tests 08/18/19 08:53: Blood Gas Puncture Site LT RADIAL, Blood Gas Patient Temperature 35.7, Arterial Blood pH 7.30, Arterial Blood Partial Pressure CO2 92, Arterial Blood Partial Pressure O2 103, Arterial Blood HCO3 45, Arterial Blood Total CO2 47.7, Arterial Blood Oxygen Saturation 98, Arterial Blood Base Excess 17.3, Neil Test YES-POS, Blood Gas Ventilator Setting NO, Blood Gas Inspired Oxygen 50% BIPAP 08/18/19 08:54: White Blood Count 8.2, Red Blood Count 3.31, Hemoglobin 9.5, Hematocrit 31, Mean Corpuscular Volume 93, Mean Corpuscular Hemoglobin 29, Mean Corpuscular Hemoglobin Concent 31, Red Cell Distribution Width 16.0, Platelet Count 248, Mean Platelet Volume 9.6, Neutrophils (%) (Auto) 80, Lymphocytes (%) (Auto) 13, Monocytes (%) (Auto) 5, Eosinophils (%) (Auto) 1, Basophils (%) (Auto) 0, Neutrophils # (Auto) 6.6, Lymphocytes # (Auto) 1.1, Monocytes # (Auto) 0.4, Eosinophils # (Auto) 0.1, Basophils # (Auto) 0.0, Prothrombin Time 12.7, INR Comment 0.9, Activated Partial Thromboplast Time 27, Sodium Level 140, Potassium Level 5.2, Chloride Level 91, Carbon Dioxide Level 34, Anion Gap 15, Blood Urea Nitrogen 23, Creatinine 0.98, Estimat Glomerular Filtration Rate > 60, BUN/Creatinine Ratio 23, Glucose Level 115, Calcium Level 9.5, Corrected Calcium 9.9, Magnesium Level 2.1, Total Bilirubin 0.3, Aspartate Amino Transf (AST/SGOT) 48, Alanine Aminotransferase (ALT/SGPT) 47, Alkaline Phosphatase 126, Total Creatine Kinase 27, Creatine Kinase MB 2.1, Troponin I 0.034, B-Type Natriuretic Peptide 373.8, Total Protein 7.9, Albumin 3.5 08/18/19 09:46: Blood Gas Puncture Site L RAD, Blood Gas Patient Temperature 36.5, Arterial Blo od pH 7.37, Arterial Blood Partial Pressure CO2 78, Arterial Blood Partial Pressure O2 61, Arterial Blood HCO3 44, Arterial Blood Total CO2 46.5, Arterial Blood Oxygen Saturation 92, Arterial Blood Base Excess 17.7, Neil Test YES-POS, Blood Gas Ventilator Setting YES, Blood Gas Inspired Oxygen 40% 08/18/19 15:58: Glucometer 180 08/18/19 20:45: Glucometer 133 08/19/19 02:42: Blood Gas Puncture Site LEFT RADIAL, Blood Gas Patient Temperature 36.2, Arterial Blood pH 7.47, Arterial Blood Partial Pressure CO2 60, Arterial Blood Partial Pressure O2 95, Arterial Blood HCO3 44, Arterial Blood Total CO2 45.4, Arterial Blood Oxygen Saturation 98, Arterial Blood Base Excess 18.2, Neil Test YES-POS, Blood Gas Ventilator Setting NO, Blood Gas Inspired Oxygen 30% 08/19/19 03:20: White Blood Count 6.9, Red Blood Count 3.08, Hemoglobin 8.7, Hematocrit 28, Mean Corpuscular Volume 92, Mean Corpuscular Hemoglobin 28, Mean Corpuscular Hemoglobin Concent 31, Red Cell Distribution Width 15.7, Platelet Count 213, Mean Platelet Volume 10.2, Neutrophils (%) (Auto) 86, Lymphocytes (%) (Auto) 8, Monocytes (%) (Auto) 6, Eosinophils (%) (Auto) 0, Basophils (%) (Auto) 0, Neutrophils # (Auto) 5.9, Lymphocytes # (Auto) 0.5, Monocytes # (Auto) 0.4, Eosinophils # (Auto) 0.0, Basophils # (Auto) 0.0, Sodium Level 142, Potassium Level 4.3, Chloride Level 92, Carbon Dioxide Level 36, Anion Gap 14, Blood Urea Nitrogen 30, Creatinine 1.04, Estimat Glomerular Filtration Rate > 60, BUN/Creatinine Ratio 29, Glucose Level 99, Calcium Level 9.6, Phosphorus Level 3.3, Magnesium Level 2.0 08/19/19 11:35: Glucometer 103 08/19/19 16:32: Glucometer 112 08/19/19 20:33: Glucometer 121 08/20/19 04:03: Phosphorus Level 3.8, Magnesium Level 1.9 08/20/19 04:15: White Blood Count 6.5, Red Blood Count 2.96, Hemoglobin 8.3, Hematocrit 28, Mean Corpuscular Volume 94, Mean Corpuscular Hemoglobin 28, Mean Corpuscular Hemoglobin Concent 30, Red Cell Distribution Width 16.5, Platelet Count 253, Mean Platelet Volume 9.8, Neutrophils (%) (Auto) 74, Lymphocytes (%) (Auto) 17, Monocytes (%) (Auto) 7, Eosinophils (%) (Auto) 2, Basophils (%) (Auto) 1, Neutrophils # (Auto) 4.8, Lymphocytes # (Auto) 1.1, Monocytes # (Auto) 0.5, Eosinophils # (Auto) 0.1, Basophils # (Auto) 0.0, Sodium Level 142, Potassium Level 4.3, Chloride Level 94, Carbon Dioxide Level 36, Anion Gap 12, Blood Urea Nitrogen 28, Creatinine 1.17, Estimat Glomerular Filtration Rate > 60, BUN/Creatinine Ratio 24, Glucose Level 81, Calcium Level 9.4 08/20/19 05:35: Glucometer 82 08/20/19 06:37: Glucometer 107 08/20/19 11:10: Glucometer 113 08/20/19 16:06: Glucometer 142 08/20/19 20:05: Glucometer 162 08/21/19 05:35: Glucometer 98 08/21/19 05:44: White Blood Count 6.3, Red Blood Count 3.08, Hemoglobin 8.7, Hematocrit 29, Mean Corpuscular Volume 94, Mean Corpuscular Hemoglobin 28, Mean Corpuscular Hemoglobin Concent 30, Red Cell Distribution Width 16.4, Platelet Count 240, Mean Platelet Volume 9.9, Neutrophils (%) (Auto) 73, Lymphocytes (%) (Auto) 17, Monocytes (%) (Auto) 9, Eosinophils (%) (Auto) 2, Basophils (%) (Auto) 0, Neutrophils # (Auto) 4.6, Lymphocytes # (Auto) 1.1, Monocytes # (Auto) 0.5, Eosinophils # (Auto) 0.1, Basophils # (Auto) 0.0, Sodium Level 144, Potassium Level 4.7, Chloride Level 94, Carbon Dioxide Level 38, Anion Gap 12, Blood Urea Nitrogen 23, Creatinine 1.02, Estimat Glomerular Filtration Rate > 60, BUN/Creatinine Ratio 23, Glucose Level 93, Calcium Level 9.6, Phosphorus Level 3.5, Magnesium Level 1.9 08/21/19 11:17: Glucometer 104 Discussion & Recommendations Patient to start hospice. 2 office next week Discharge Home Medications: Active Scripts Active Reported Hydrocodone-Acetamin 5-325 mg (Hydrocodone/Acetaminophen) 1 Each Tablet 1 Tab PO Q8H PRN Potassium Chloride 10 Meq Tablet.er 10 Meq PO DAILY Lisinopril 10 Mg Tablet 10 Mg PO DAILY Furosemide 40 Mg Tablet 60 Mg PO BID Amlodipine Besylate 5 Mg Tablet 5 Mg PO DAILY Vitamin A (Vitamin A Palmitate) 10,000 Unit Capsule 10,000 Unit PO DAILY Saline Nose Omro (Sodium Chloride) 45 Ml Omro 1-2 Sprays NS UD PRN Senokot-S Tablet (Sennosides/Docusate Sodium) 1 Each Tablet 2 Tab PO DAILY Escitalopram Oxalate 20 Mg Tablet 20 Mg PO DAILY Ventolin Hfa (Albuterol Sulfate) 18 Gm Hfa.aer.ad 2 Puff INH Q4H PRN Aspirin EC (Aspirin) 81 Mg Tablet.dr 81 Mg PO DAILY Metoprolol Succinate 25 Mg Tab.er.24h 12.5 Mg PO DAILY TAKES 1/2 (25MG) TABLET Daliresp (Roflumilast) 500 Mcg Tablet 500 Mcg PO DAILY Pantoprazole Sodium 40 Mg Tablet.dr 40 Mg PO DAILY Eliquis (Apixaban) 5 Mg Tablet 5 Mg PO BID Amiodarone HCl 200 Mg Tablet 200 Mg PO DAILY Buspirone HCl 10 Mg Tablet 10 Mg PO BID Sildenafil (Sildenafil Citrate) 20 Mg Tablet 20 Mg PO TID Vitamin D3 (Cholecalciferol (Vitamin D3)) 1,000 Unit Capsule 1,000 Unit PO DAILY Centrum Adults Tablet (Multivitamin/Iron/Folic Acid) 1 Each Tablet 1 Tab PO DAILY Vitamin B-12 5,000 Mcg Tab Sl (Cyanocobalamin/Cobamamide) 1 Each Tab.subl 5,000 Mcg SL DAILY Albuterol Sulfate 2.5 Mg/3 Ml Vial.neb 2.5 Mg NEB Q4H PRN Lyrica (Pregabalin) 150 Mg Capsule 150 Mg PO BID Atorvastatin Calcium 10 Mg Tablet 10 Mg PO DAILY Instructions to patient/family Please see electronic discharge instructions given to patient. Clinical Quality Measures DVT/VTE Risk/Contraindication: Risk Factor Score Per Nursin RFS Level Per Nursing on Admit: 2=Moderate DANITA TEE DO Aug 22, 2019 07:27
== END 2019-08-21 13:25 | disposition hospice, home (50) | DRG 189 ==
LOC: EDUNIT# 08:39 → ER 08:40 → ICU 10:02 → OBSVTOIN 11:34 → 4TH 08-19 10:42
PROVIDERS: ADMIT Internal Medicine; ATTEND Internal Medicine
DX: J96.21 Acute and chronic respiratory failure with hypoxia (principal); J96.22 Acute and chronic respiratory failure with hypercapnia; J43.9 Emphysema, unspecified; E66.2 Morbid (severe) obesity with alveolar hypoventilation; Z68.41 Body mass index [BMI] 40.0-44.9, adult; I11.0 Hypertensive heart disease with heart failure; I50.32 Chronic diastolic (congestive) heart failure; I48.0 Paroxysmal atrial fibrillation; I25.10 Atherosclerotic heart disease of native coronary artery without angina pectoris; E78.00 Pure hypercholesterolemia, unspecified; K21.9 Gastro-esophageal reflux disease without esophagitis; M81.0 Age-related osteoporosis without current pathological fracture; M19.91 Primary osteoarthritis, unspecified site; E11.9 Type 2 diabetes mellitus without complications; F41.9 Anxiety disorder, unspecified; F32.9 Major depressive disorder, single episode, unspecified; I27.20 Pulmonary hypertension, unspecified; E78.5 Hyperlipidemia, unspecified; M54.5 Low back pain; G89.29 Other chronic pain; D64.9 Anemia, unspecified; I49.5 Sick sinus syndrome; Z79.01 Long term (current) use of anticoagulants; Z86.010 Personal history of colon polyps; Z87.19 Personal history of other diseases of the digestive system; I25.2 Old myocardial infarction; Z99.81 Dependence on supplemental oxygen; Z91.19 Patient's noncompliance with other medical treatment and regimen; Z87.891 Personal history of nicotine dependence
CPT/HCPCS: 36415; 71045; 80048; 80053; 82550; 82553; 82805; 82962; 83735; 83880; 84100; 84484; 85025; 85610; 85730; 87081; 93005; 93041; 94640; 94660; 94760